=== PATIENT | female | born 1980 | race Caucasian/White ===

== ENCOUNTER 2017-01-12 10:26 | Emergency (ER) | payer OTHER ==
[~2017-01-12] VITALS: Ht 167.6 cm; Wt 43.7 kg
[~2017-01-12 10:26] MED LIST: IBUPROFEN600 MG PO; IBUPROFEN800 MG PO; KEFLEX500 MG PO; LISINOPRIL-HCT1 EACH PO; NORCO 5-325 TA1 EACH PO; PERCOCET 10-321 EACH PO; POTASSIUM CHLO10 MEQ PO; PROVENTIL HFA6.7 GM INH; SUDAFED 12 HOU120 MG PO; TRAMADOL HCL50 MG PO; TRIACTIN50 MG/5 ML PO; TYLENOL325 MG PO
== END 2017-01-12 12:10 | disposition short-term general hospital (02) ==
LOC: ED 10:26
PROC: 0T9B70Z Drainage of Bladder with Drainage Device, Via Natural or Artificial Opening (ICD-10-PCS; principal; 2017-01-12)
DX: J36 Peritonsillar abscess (principal); I10 Essential (primary) hypertension; F17.200 Nicotine dependence, unspecified, uncomplicated; Z88.5 Allergy status to narcotic agent; Z88.8 Allergy status to other drugs, medicaments and biological substances
CPT/HCPCS: 51702; 80053; 81001; 85025; 85610; 85730; 96361; 96374; 96375; 99285; J0295; J1100; J1170; J2405; J7030

== ENCOUNTER 2017-12-20 15:22 | Emergency (ER) | payer OTHER ==
[~2017-12-20] VITALS: Ht 167.6 cm; Wt 43.7 kg
[~2017-12-20 15:22] MED LIST changes: +CARVEDILOL25 MG PO; +NIFEDIPINE ER60 MG PO
[2017-12-20] MEDS ORDERED: FUROSEMIDE40 MG PO (15:52)
[2017-12-20] MEDS ORDERED: LISINOPRIL20 MG PO (15:52)
[2017-12-20] MEDS ORDERED: XANAX0.5 MG PO (15:53)
== END 2017-12-20 16:05 | disposition home or self-care (01) ==
LOC: ED 15:22
DX: F41.9 Anxiety disorder, unspecified (principal); E11.9 Type 2 diabetes mellitus without complications; I10 Essential (primary) hypertension; Z87.891 Personal history of nicotine dependence; Z88.0 Allergy status to penicillin; Z88.8 Allergy status to other drugs, medicaments and biological substances; Z79.899 Other long term (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
CPT/HCPCS: 99283

== ENCOUNTER 2017-12-23 07:05 | Emergency (ER) | payer OTHER ==
[~2017-12-23] VITALS: Ht 167.6 cm; Wt 43.7 kg
[~2017-12-23 07:05] MED LIST changes: +FUROSEMIDE40 MG PO; +LISINOPRIL20 MG PO; +XANAX0.5 MG PO
== END 2017-12-23 08:20 | disposition left against medical advice (07) ==
LOC: ED 07:05
DX: R10.31 Right lower quadrant pain (principal); R11.0 Nausea; F41.9 Anxiety disorder, unspecified; I10 Essential (primary) hypertension; Z88.5 Allergy status to narcotic agent; Z88.8 Allergy status to other drugs, medicaments and biological substances; Z79.899 Other long term (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
CPT/HCPCS: 99283

== ENCOUNTER 2018-07-08 00:11 | Emergency (ER) | payer MEDICARE, OTHER ==
--- OUTSIDE RECORDS SUMMARY | 2018-07-08 00:14 | XMS ---
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 Care History Medical/Surgical 12/27/2017 [facility] Care Recommendation: This patient has had 5 or more Emergency Department visits in the last 12 months.\T\nbsp; Patient requires education on the scope and purpose of the ED as an acute care provider not a Primary Care Provider and should not be utilized for chronic conditions.\T\nbsp; If patient returns to ED please contact Community Health Worker Mi at [phone]. These are guidelines and the provider should exercise clinical judgment when providing care. E.D. VISIT COUNT (12 MO.) 6 ABIMAEL Perez TOTAL 6 NOTE: Visits indicate total known visits. ED/UCC VISIT TRACKING (12 MO.) 07/08/2018 00:11 ABIMAEL [place] TYPE: Emergency COMPLAINT: - SOB 04/01/2018 02:47 ABIM[place]EL [place] TYPE: Emergency COMPLAINT: - SOB DIAGNOSES: - Acute respiratory failure, unspecified whether with hypoxia or hypercapnia - Other 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 operator (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 - Shortness of breath - Essential (primary) hypertension - Other stimulant abuse, uncomplicated - Allergy status to narcotic agent status - Chronic pulmonary edema - Personal history of nicotine dependence - Allergy status to other drugs, medicaments and biological substances status - Patient's noncompliance with other medical treatment and regimen 03/22/2018 15:47 ABIMAEL [place] TYPE: Emergency COMPLAINT: - SOB DIAGNOSES: - Dependence on renal dialysis - Shortness of breath - Hypertensive chronic kidney disease with stage 5 chronic kidney disease or end stage renal disease - Allergy status to other drugs, medicaments and biological substances status - End stage renal disease - Chronic pulmonary edema - Other senior care (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 - Acute respiratory failure, unspecified whether with hypoxia or hypercapnia - Allergy status to narcotic agent status - Nicotine dependence, unspecified, uncomplicated 12/23/2017 07:05 ABIM[facility]EL [place] TYPE: Emergency COMPLAINT: - ABD PAIN DIAGNOSES: - Allergy status to narcotic agent status - Other 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 operator (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 - Allergy status to other drugs, medicaments and biological substances status - Essential (primary) hypertension - Right lower quadrant pain - Anxiety disorder, unspecified - Nausea 12/20/2017 15:22 ABIM[facility]EL [place] TYPE: Emergency COMPLAINT: - HIGH BLOOD PRESSURE DIAGNOSES: - Allergy status to penicillin - Anxiety disorder, unspecified - Allergy status to other drugs, medicaments and biological substances status - Essential (primary) hypertension - Personal history of nicotine dependence - Type 2 diabetes mellitus without complications - Other senior care (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 07/26/2017 07:25 ABIM[facility]EL [place] TYPE: Emergency COMPLAINT: - SOB DIAGNOSES: - Other specified diseases and conditions complicating , childbirth and the puerperium - Personal history of nicotine dependence - Dyspnea, unspecified - Diseases of the respiratory system complicating , second trimester - Allergy status to narcotic agent status - 21 weeks gestation of - Disorder of kidney and ureter, unspecified - Unspecified maternal hypertension, second trimester - Chronic pulmonary edema - Other 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 operator (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 - Essential (primary) hypertension - Gestational diabetes mellitus in , unspecified control INPATIENT VISIT TRACKING (12 MO.) 04/01/2018 08:38 Jorje [place] TYPE: Medical Surgical COMPLAINT: - CHF, RESPIRATORY FAILURE DIAGNOSES: 0. Acute respiratory failure with hypoxia 1. Acute respiratory failure with hypoxia 2. End stage renal disease 3. Acute pulmonary edema 4. Acute diastolic (congestive) heart failure 4. Hypertensive emergency 5. Hypertensive emergency 5. Hypertensive chronic kidney disease with stage 5 chronic kidney disease or end stage renal disease 6. Anemia in chronic kidney disease 6. Hypertensive heart and chronic kidney disease with heart failure and with stage 5 chronic kidney disease, or end stage renal disease 7. Hypokalemia 7. Anemia in chronic kidney disease 8. Hypokalemia 8. Hypomagnesemia 9. Hypomagnesemia 9. Other disorders of phosphorus metabolism 10. Other stimulant abuse, uncomplicated 10. Other disorders of phosphorus metabolism 11. Personal history of nicotine dependence 11. Other stimulant abuse, uncomplicated 12. Personal history of nicotine dependence 12. Dependence on renal dialysis 13. Patient's noncompliance with renal dialysis 13. Dependence on renal dialysis 14. Patient's noncompliance with renal dialysis [facility]2018 [facility] TYPE: General Medicine DIAGNOSES: - Other stimulant abuse, uncomplicated - Acute respiratory failure with hypercapnia - Acute respiratory failure with hypoxia - Acute respiratory failure - Restlessness and agitation 01/04/2018 12:48 [facility] Lluvia [place] TYPE: Surgery DIAGNOSES: - Dependence on renal dialysis - End stage renal disease - Chronic kidney disease, unspecified - Acute kidney failure with tubular necrosis 09/01/2017 21:17 [place] TYPE: Inpatient COMPLAINT: - U DIAGNOSES: 0. Acute kidney failure, unspecified 1. Hypertensive heart and chronic kidney disease with heart failure and with stage 5 chronic kidney disease, or end stage renal disease 1. Acute respiratory failure with hypoxia 1. Acute respiratory failure with hypoxia 2. End stage renal disease 2. End stage renal disease 3. Pneumonia, unspecified organism 3. Pneumonia, unspecified organism 4. Hypertensive heart and chronic kidney disease with heart failure and with stage 5 chronic kidney disease, or end stage renal disease 4. Hypertensive heart and chronic kidney disease with heart failure and with stage 5 chronic kidney disease, or end stage renal disease 5. Hypo-osmolality and hyponatremia 6. Hypo-osmolality and hyponatremia 6. Hypo-osmolality and hyponatremia 6. Heart failure, unspecified 7. Dependence on renal dialysis 7. Heart failure, unspecified 7. Heart failure, unspecified 8. Dependence on renal dialysis 8. Dependence on renal dialysis 8. Anemia in chronic kidney disease 9. Iron deficiency anemia, unspecified 9. Anemia in chronic kidney disease 9. Anemia in chronic kidney disease 10. Iron deficiency anemia, unspecified 10. Iron deficiency anemia, unspecified 10. Thrombocytopenia, unspecified 11. Thrombocytopenia, unspecified 11. Thrombocytopenia, unspecified - Decreased white blood cell count, unspecified - Decreased white blood cell count, unspecified [facility]2017 [facility] DIAGNOSES: - Anemia in chronic kidney disease - Acute respiratory failure with hypoxia - Acute pulmonary edema - Hemolytic-uremic syndrome - Other autoimmune hemolytic anemias - Hypertension - CHF - Acute kidney failure, unspecified 07/16/2017 20:43 [facility] TYPE: Observation DIAGNOSES: - Hemalytic-uremic syndrome - Thrombotic microangiopathy - Encounter for elective termination of - Cardiomyopathy, unspecified - Acute kidney failure, unspecified - Disorder of kidney and ureter, unspecified - Encounter for supervision of normal , unspecified, unspecified trimester - Essential (primary) hypertension - Other stimulant abuse, uncomplicated - Anemia, unspecified [email or web address]
--- NOTE | 2018-07-08 06:39 | OR ---
[facility] [address], [place] [address] Signed DATE OF OPERATION: 07/08/2018 SURGEON: Corin Andrea MD PREOPERATIVE DIAGNOSES: 1. Lack of peripheral IV access. 2. Renal failure. 3. Respiratory distress (BiPAP). POSTOPERATIVE DIAGNOSES: 1. Lack of peripheral IV access. 2. Renal failure. 3. Respiratory distress (BiPAP). PROCEDURE PERFORMED: Placement of right femoral triple-lumen catheter. ESTIMATED BLOOD LOSS: None. INDICATIONS: Dangelo is a 38-year-old female I have known for many years. Although I have not seen her in the last year or so. She is now obviously in renal failure and she has an AV fistula in her right upper extremity. She comes into the emergency room with what looks like pulmonary edema and some respiratory distress. She is currently on BiPAP. They have been unable to place a peripheral IV, so I was asked to come emergently to the emergency department for placement of a central venous catheter. I met with Dangelo and I explained to her the current situation. We decided to go ahead and use a femoral line to avoid a chance of a pneumothorax. In addition, we do not want to place catheters on the same side as AV fistula and create a stenosis of the vein that she would have to deal with in the future. Dangelo is aware of central line. She understands there is risk including, but not limited to bleeding, infection, scarring, change in contour of the skin, and need for additional line placements in treatment. She expressed understanding and wished to proceed. PROCEDURE NOTE: Dangelo was kept supine semi-recumbent in her ER bed. With the help of several nurses, then we were able to prep and drape her right groin in the usual sterile fashion. Local anesthetic was injected in the right groin. I could easily feel the femoral pulse. We went just medial to that and on the 1st pass of the needle, we were Electronically Signed By: CORIN ANDREA MD 07/08/18 0639 PATIENT NAME: DANGELO POWER OPERATIVE REPORT DATE OF : 78 REPORT #: [id number] PHYSICIAN: CORIN ANDREA MD PCP: JOHNNY ANNA PA-C REPORT IS CONFIDENTIAL AND NOT TO BE RELEASED WITHOUT AUTHORIZATION [address] [address] Signed able to access her femoral vein. Her venous nonpulsatile blood was very dark. The wire was able to pass without any resistance whatsoever. The triple-lumen catheter was inserted up to the hub without any resistance whatsoever. All three ports were able to draw and flush quite readily. The catheter was held in place at the level of skin with interrupted silk sutures. After this, dry dressing was applied per nursing staff. Dangelo tolerated the procedure quite well. MD KACEY Roman/ISABELLAL /[id number] cc: CAROLA Martinez MD Copies: ANNAJOHNNY GOMEZ PA-C, ANDREW L MD ~ Electronically Signed By: CORIN ANDREA MD 07/08/18 0639 PATIENT NAME: DANGELO POWER Neela OPERATIVE REPORT DATE OF : 78 REPORT #: [id number] PHYSICIAN: CORIN ANDREA MD PCP: JOHNNY ANNA PA-C REPORT IS CONFIDENTIAL AND NOT TO BE RELEASED WITHOUT AUTHORIZATION
== END 2018-07-08 04:20 | disposition short-term general hospital (02) ==
LOC: ED 00:11
DX: J81.1 Chronic pulmonary edema (principal); I12.9 Hypertensive chronic kidney disease with stage 1 through stage 4 chronic kidney disease, or unspecified chronic kidney disease; N18.9 Chronic kidney disease, unspecified; Z87.891 Personal history of nicotine dependence; Z88.5 Allergy status to narcotic agent; Z88.8 Allergy status to other drugs, medicaments and biological substances; Z79.899 Other long term (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
CPT/HCPCS: 36600; 71045; 80053; 81001; 82803; 85025; 87088; 94660; 96374; 96375; 96376; 99285-25; J1170; J2060; J2405

== ENCOUNTER 2018-07-18 03:26 | Emergency (ER) | payer MEDICARE, OTHER ==
[~2018-07-18] VITALS: Ht 167.6 cm; Wt 43.7 kg
--- OUTSIDE RECORDS SUMMARY | 2018-07-18 03:28 | XMS ---
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 - Has Care Guidelines - [facility] - 2 Visits in 30 Days CARE PROVIDERS LLUVIA STEPHENS Nurse Practitioner: Family Current PHONE: Unknown JOHNNY ANNA Physician Computer Science Teacher 12/27/2017-Current PHONE: [phone] JOHNNY ANNA Primary Care Current PHONE: [phone] Faye has no Care Guidelines for this patient. Care History Medical/Surgical 07/08/2018 [facility] - IF PATIENT IS SEEN IN THE ED AND IS WILLING TO ACCEPT HELP/SERVICES FOR TREATMENT. PLEASE CONTACT [facility] AND REQUEST TO SPEAK TO ULISSES PLATT [phone]. - [facility] CAN HELP PATIENT WITH TREATMENT RESOURCES AND PLACEMENT. 12/27/2017 [facility] Care Recommendation: This patient has had 5 or more Emergency Department visits in the last 12 months.\T\nbsp; Patient requires education on the scope and purpose of the ED as an acute care provider not a Primary Care Provider and should not be utilized for chronic conditions.\T\nbsp; If patient returns to ED please contact Community Health WorkerMi at [phone]. These are guidelines and the provider should exercise clinical judgment when providing care. E.D. VISIT COUNT (12 MO.) 7 [facility]. TOTAL 7 NOTE: Visits indicate total known visits. ED/UCC VISIT TRACKING (12 MO.) 07/18/2018 03:26 [facility] [place] TYPE: Emergency COMPLAINT: - SOB 07/08/2018 00:11 ABIM[facility]EL [place] TYPE: Emergency COMPLAINT: - SOB DIAGNOSES: - Hypertensive chronic kidney disease with stage 1 through stage 4 chronic kidney disease, or unspecified chronic kidney disease - Other metal spinner (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 - Shortness of breath - Allergy status to narcotic agent status - Personal history of nicotine dependence - Type 2 diabetes mellitus with diabetic chronic kidney disease - Chronic pulmonary edema - Chronic kidney disease, unspecified - Allergy status to other drugs, medicaments and biological substances status 04/01/2018 02:47 ABIMAEL Bennett [place] TYPE: Emergency COMPLAINT: - SOB DIAGNOSES: - Acute respiratory failure, unspecified whether with hypoxia or hypercapnia - Other metal spinner (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 - Shortness of breath - Essential (primary) hypertension - Other stimulant abuse, uncomplicated - Allergy status to narcotic agent status - Chronic pulmonary edema - Personal history of nicotine dependence - Allergy status to other drugs, medicaments and biological substances status - Patient's noncompliance with other medical treatment and regimen 03/22/2018 15:47 ABIMAEL Sand[facility] Tio [place] TYPE: Emergency COMPLAINT: - SOB DIAGNOSES: - Dependence on renal dialysis - Shortness of breath - Hypertensive chronic kidney disease with stage 5 chronic kidney disease or end stage renal disease - Allergy status to other drugs, medicaments and biological substances status - End stage renal disease - Chronic pulmonary edema - Other metal spinner (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 - Acute respiratory failure, unspecified whether with hypoxia or hypercapnia - Allergy status to narcotic agent status - Nicotine dependence, unspecified, uncomplicated 12/23/2017 07:05 ABIMAEL [place] TYPE: Emergency COMPLAINT: - ABD PAIN DIAGNOSES: - Allergy status to narcotic agent status - Other metal spinner (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 - Allergy status to [...] 2 diabetes mellitus without complications - Other metal spinner (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 07/26/2017 07:25 ABIMAEL Bennett [...] trimester - Chronic pulmonary edema - Other metal spinner (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 - Essential (primary) hypertension - Gestational diabetes mellitus in , unspecified control INPATIENT VISIT TRACKING (12 MO.) 07/08/2018 05:44 [facility] Laura [place] TYPE: General Medicine DIAGNOSES: - pulmonary edema 04/01/2018 08:38 Jorje Álvarez [place] TYPE: Medical Surgical COMPLAINT: - CHF, RESPIRATORY [...] Patient's noncompliance with renal dialysis 03/22/2018 19:39 [facility] TYPE: General Medicine DIAGNOSES: - Other stimulant abuse, uncomplicated - Acute respiratory failure with hypercapnia - Acute respiratory failure with hypoxia - Acute respiratory failure - Restlessness and agitation 01/04/2018 12:[facility] DIAGNOSES: - Dependence on [...] white blood cell count, unspecified [facility]2017 [facility] DIAGNOSES: - Anemia in chronic kidney disease - Acute respiratory failure with hypoxia - Acute pulmonary edema - Hemolytic-uremic syndrome - Other autoimmune hemolytic anemias - Hypertension - CHF - Acute kidney failure, unspecified [email or web address]
== END 2018-07-18 09:40 | disposition short-term general hospital (02) ==
LOC: ED 03:26
PROC: 0T9B70Z Drainage of Bladder with Drainage Device, Via Natural or Artificial Opening (ICD-10-PCS; principal; 2018-07-18)
DX: J96.90 Respiratory failure, unspecified, unspecified whether with hypoxia or hypercapnia (principal); I13.11 Hypertensive heart and chronic kidney disease without heart failure, with stage 5 chronic kidney disease, or end stage renal disease; N18.6 End stage renal disease; Z99.2 Dependence on renal dialysis; Z88.5 Allergy status to narcotic agent; Z88.8 Allergy status to other drugs, medicaments and biological substances; Z79.899 Other long term (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
CPT/HCPCS: 36600; 51702; 71045; 80053; 82803; 85025; 94660; 99285-25; J1170; J1200; J1940; J2405

== ENCOUNTER 2019-04-04 19:06 | Emergency (ER) | payer MEDICARE, OTHER ==
[~2019-04-04] VITALS: Ht 167.6 cm; Wt 41.0 kg
--- OUTSIDE RECORDS SUMMARY | ~2019-04-04 | XMS | Clinical Summary ---
Demographics + + + | Address | [address] | | | [place] [address] | + + + | Home Phone | | + + + | Preferred Language | Unknown | + + + | Marital Status | | + + + | Worship Affiliation | [phone] | + + + | Race | Unknown | + + + | Ethnic Group | Unknown | + + + Author + + + | Author | [facility] (Historical as of | | | 01-21-19) | + + + | Organization | [facility] (Historical as of | | | 01-21-19) [...] [place] | | | | | [address] | | + + + + + Care Team Providers + +------+ + | Care Documentation Supervisor Name | Role | Phone | [...] | + + + +---------+------+------+-------+ | B [id number] | Take 1 tablet by | | [...] | | | Activ | | (PROCRIT) [id number] | into the skin 3 | | [...] +------+-------+ + | MEDICARE | MEDICA | [id number] | | | [address] | | | RE | | | | [place] [address] | | | IP-OP | | | | | + +--------+ +------+-------+ + | MEDICAID | MEDICA | [id number] | | | [address] | | | ID | | | | [place] | | | [place] | | | | [address] | + +--------+ +------+-------+ + + +--------+ [...] | | al/Fam | | 1980 | [phone] | [place] | | | [place] | | | [phone] | [phone] | + +--------+ +--------+ + +
--- OUTSIDE RECORDS SUMMARY | ~2019-04-04 | XMS | Clinical Summary ---
Demographics + + + | Address | [address] | | | [place] [address] | + + + | Home Phone | | + + + | Preferred Language | Unknown | + + + | Marital Status | Single | + + + | Mormonism Affiliation | Unknown | + + + [...] [place], | | | | | [place] [address] | | + + + + + Care Team Providers + +------+ + | Care Belt Maker Name | Role | Phone | + +------+ + | No Pcp Per Patient | PCP | Unavailable | + +------+ + Source Comments KATTY is fully live on both [facility] Ambulatory and [facility] InPatient.[facility] Allergies Not on File Medications Not [...] | | | + +--------+ +--------+-------+---------+--------+ | WRINGER AND SETTER MEDICAID | WRINGER AND SETTER | [id number] | 06/07/19 | | | [...] | 1980 | [phone] | [place] [address] | | | [place] | | | 3 (Home) | | + +--------+ +--------+ + +"
--- OUTSIDE RECORDS SUMMARY | ~2019-04-04 | XMS | Encounter Summary ---
Demographics + + + | Address | [address] | | | [place] [address] | + + + | Home Phone | | + + + | Preferred Language | Unknown | + + + | Marital Status | Single | + + + | Rastafari Affiliation | Unknown | + + + | Race | White | + + + | Ethnic Group | Not or | + + + Author + + + | Author | [facility] | + + + | Organization | [facility] | + + + | [...] [place], | | | | | [place] [address] | | + + + + + Care Team Providers + +------+ + | Care Operator Vacuum Name | Role | Phone | + +------+ + | No Pcp Per Patient | PCP | Unavailable | + +------+ + Encounter Details +--------+ + + + + | Date | Type | Department | Care Team | Description | +--------+ + + + + | 07/05/ | Document-Sc | UNKNOWN DEPARTMENT | Unknown . | | | 2012 | anned | [address] | | | | | | [address] | | | | | | [place], [place] | | | | | | [address] | | | +--------+ + + + [...]
--- OUTSIDE RECORDS SUMMARY | ~2019-04-04 | XMS | Clinical Summary ---
Demographics + + + | Address | [address] | | | [place] [address] | + + + | Home Phone [...] | Author | [facility] (Historical as of | | | 01-21-19) | + + + | Organization | [facility] (Historical as of | | | 01-21-19) [...] [place] | | | | | [address] | | + + + + + Care Team Providers + +------+ + | Care Sole Blacker Name | Role | Phone | + [...] | + + + +---------+------+------+-------+ | B [id number]-[id number] | Take 1 tablet by | | [...] | | | Activ | | (PROCRIT) [id number] | into the skin 3 | | [...] +------+-------+ + | MEDICARE | MEDICA | [id number] | | | [address] | | | RE | | | | [place] [address] | | | IP-OP | | | | | + +--------+ +------+-------+ + | MEDICAID | MEDICA | [id number] | | | [address] | | | ID | | | | [place] | | | [place] | | | | [address] | + +--------+ +------+-------+ + + +--------+ [...] | | al/Fam | | 1980 | [phone] | [place] | | | [place] | | | [phone] | [phone] | + +--------+ +--------+ + +
--- OUTSIDE RECORDS SUMMARY | ~2019-04-04 | XMS | Clinical Summary ---
Demographics + + + | Address | [address] | | | [place] [address] | + + + | Home Phone [...] + | Author | [facility] | | | and Laloana | + + + | Organization | [facility] | | | and [...] [place] | | | | | [address] | | + + + + + Care Team Providers + +------+ + | Care Rooming House Keeper Name | Role | Phone | [...] | | | | | | | ([facility]) | | | | | | | [...] | + + + +---------+------+------+-------+ | B Iozuyhl-D-Qvtse | Take 1 Tab by mouth. | [...] + + + + | Overview: 07/17/2017 [facility] | + + + + + | [...] + | Sister | | | Acute [place] | + +------+ + + | Sister [...] +--------+ +---------+--------+ | MEDICARE | MEDICA | [id number] | 02/06/20 | [phone] | | Medica | | | RE | | 18-Pre | 5 | | re | | | PART A | | sent | | | | | | AND B | | | | | | + +--------+ +--------+ +---------+--------+ | MODA HEALTH PLAN | MODA | [id number] | | [phone] | | Medica | | MEDICAID HMO | HEALTH | | 018-Pr | 1 | | id | | | MDCD | | esent | | | | | | [place] | | | | | | + +--------+ +--------+ +---------+--------+ | [place] | MEDICA | [id number] | | [phone] | | Medica | | | ID [...] | 1979 | [phone] | [place] [address] | | | carley | | | 8 (Home) | | + +--------+ +--------+ + + | Aurea Perez | Person | Self | [birth year] | [address] | | | al/Fam | | 1979 | [phone] | [place] [address] | | | carley | | | 8 (Home) | | + +--------+ +--------+ + + Advance Directives Patient has advance care planning documents, and code status on file. For more information, please contact:[facility] [place] [address] + + + + + | Code [...]
--- OUTSIDE RECORDS SUMMARY | ~2019-04-04 | XMS | Clinical Summary ---
Demographics + + + | Address | [address] | | | [place] [address] | + + + | Home Phone [...] + | Author | [facility] | | | and Laloana | + + + | Organization | [facility] | | | and [...] [place] | | | | | [address] | | + + + + + Care Team Providers + +------+ + | Care Recording Studio Set Up Worker Name | Role | Phone | [...] | | | | | | | ([facility]) | | | | | | [...] | + + + +---------+------+------+-------+ | B Paeuveg-W-Fvqan | Take 1 Tab by mouth. | [...] + | Sister | | | Acute [place] | + +------+ + + | Sister [...] +--------+ +---------+--------+ | MEDICARE | MEDICA | [id number] | 02/06/20 | [phone] | | Medica | | | RE | | 18-Pre | 5 | | re | | | PART A | | sent | | | | | | AND B | | | | | | + +--------+ +--------+ +---------+--------+ | MODA HEALTH PLAN | MODA | [id number] | | [phone] | | Medica | | MEDICAID HMO | HEALTH | | 018-Pr | 1 | | id | | | MDCD | | esent | | | | | | [place] | | | | | | + +--------+ +--------+ +---------+--------+ | MEDICAID [place] | MEDICA | [id number] | | [phone] | | Medica | | | ID [...] | 1979 | [phone] | [place] [address] | | | carley | | | 8 (Home) | | + +--------+ +--------+ + + | Aurea Perez | Person | Self | [birth year] | | [address] | | | al/Fam | | 1979 | [phone] | [place] [address] | | | carley | | | 8 (Home) | | + +--------+ +--------+ + + Advance Directives Patient has advance care planning documents, and code status on file. For more information, please contact:[facility] [place] [address] + + + + + | Code [...]
--- OUTSIDE RECORDS SUMMARY | ~2019-04-04 | XMS | Clinical Summary ---
Demographics + + + | Address | [address] | | | [place] [address] | + + + | Home Phone | | + + + | Preferred Language | Unknown | + + + | Marital Status | Single | + + + | Catholic Affiliation | Unknown | + + + [...] [place], | | | | | [place] [address] | | + + + + + Care Team Providers + +------+ + | Care Bobbin Winder Name | Role | Phone | + +------+ + | No Pcp Per Patient | PCP | Unavailable | + +------+ + Source Comments KATTY is fully live on both [facility] Ambulatory and [facility] InPatient.[facility] Allergies Not on File Medications [...] | | | + +--------+ +--------+-------+---------+--------+ | DENTAL MANAGER MEDICAID | DENTAL MANAGER | xxxxxxxx | 06/07/19 | | [...] | 1980 | [phone] | [place] [address] | | | carley | | | 3 (Home) | | + +--------+ +--------+ + +"
--- OUTSIDE RECORDS SUMMARY | ~2019-04-04 | XMS | Encounter Summary ---
Demographics + + + | Address | [address] | | | [place] [address] | + + + | Home Phone | | + + + | Preferred Language | Unknown | + + + | Marital Status | Single | + + + | Spiritism Affiliation | Unknown | + + + | Race | White | + + + | Ethnic Group | Not or | + + + Author + + + | Author | [facility] | + + + | Organization | [facility] | + + + | Address | [...] [place], | | | | | [place] [address] | | + + + + + Care Team Providers + +------+ + | Care Casing In Line Feeder Name | Role | Phone | + [...] [address] | | | | | | [place], [place] | | | | | | [address] | | | +--------+ + + + [...]
--- OUTSIDE RECORDS SUMMARY | 2019-04-04 19:08 | XMS ---
PreManage Notification: DANGELO POWER Security Radiographer Events 1 event(s) in the past 18 months Most recent security events: Not Specified at [facility] 12/23/2017 07:05 Details: AMA CRITERIA MET - Group Notification - [facility] - Has Care Guidelines CARE PROVIDERS LLUVIA STEPHENS Nurse Practitioner: Family Current PHONE: Unknown JOHNNY ANNA Physician Sports Complex Attendant 12/27/2017-Current PHONE: [phone] JOHNNY ANNA Primary Care Current PHONE: [phone] Faye has no Care Guidelines for this patient. Care History Medical/Surgical 07/08/2018 [facility] - IF PATIENT IS SEEN IN THE ED AND IS WILLING TO ACCEPT HELP/SERVICES FOR TREATMENT. PLEASE CONTACT [facility] AND REQUEST TO SPEAK TO ULISSES PLATT [phone]. - [facility] CAN HELP PATIENT WITH TREATMENT RESOURCES AND PLACEMENT. 12/27/2017 [facility] Care Recommendation: This patient has had 5 or more Emergency Department visits in the last 12 months.\T\nbsp; Patient requires education on the scope and purpose of the ED as an acute care provider not a Primary Care Provider and should not be utilized for chronic conditions.\T\nbsp; If patient returns to ED please contact Community Health WorkerMi at [phone]. These are guidelines and the provider should exercise clinical judgment when providing care. E.D. VISIT COUNT (12 MO.) 3 [facility]. TOTAL 3 NOTE: Visits indicate total known visits. ED/UCC VISIT TRACKING (12 MO.) 04/04/2019 19:06 ABIM[place]EL [place] TYPE: Emergency COMPLAINT: - SKIN PROBLEM 07/18/2018 03:26 ABIM[facility]EL [place] TYPE: Emergency COMPLAINT: - SOB DIAGNOSES: - End stage renal disease - Shortness of breath - Allergy status to oth drug/meds/biol subst status - Respiratory failure, unsp, unsp w hypoxia or hypercapnia - Allergy status to narcotic agent status - Other senior care (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 - Dependence on renal dialysis - 1 Hyp hrt and chr kdny dis w/o hrt fail, w stg 5 chr kdny/ESR 07/08/2018 00:11 ABIMAEL Bennett [place] TYPE: Emergency COMPLAINT: - SOB DIAGNOSES: - 1 Hypertensive chronic kidney disease w stg 1-4/unsp chr kdny - 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 - Shortness of breath - Allergy status to narcotic agent status - Personal history of nicotine dependence - 1 Type 2 diabetes mellitus w diabetic chronic kidney disease - Chronic pulmonary edema - Chronic kidney disease, unspecified - Allergy status to oth drug/meds/biol subst status INPATIENT VISIT TRACKING (12 MO.) 07/18/2018 11:02 [facility] Laura [place] TYPE: Surgical Services DIAGNOSES: - Hypertension secondary to other renal disorders - Other specified disorders of kidney and ureter - Anemia in chronic kidney disease - Acute respiratory failure with hypoxia - 1 Chronic kidney disease, stage 4 (severe) - End stage renal disease - Acute pulmonary edema - Hypertensive urgency - Acute combined systolic and diastolic (congestive) hrt fail - Chronic pulmonary edema 07/08/2018 05:44 [facility] [place] TYPE: General Medicine DIAGNOSES: - pulmonary edema [email or web address]
[2019-04-04] MEDS ORDERED: BACTRIM DS TAB1 EACH PO (19:53)
== END 2019-04-04 20:33 | disposition home or self-care (01) ==
LOC: ED 19:06
DX: L03.811 Cellulitis of head [any part, except face] (principal); I10 Essential (primary) hypertension; Z88.5 Allergy status to narcotic agent; Z88.8 Allergy status to other drugs, medicaments and biological substances; Z79.899 Other long term (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
CPT/HCPCS: 99282

== ENCOUNTER 2019-04-05 02:07 | Emergency (ER) | payer MEDICARE, OTHER ==
[~2019-04-05] VITALS: Ht 167.6 cm; Wt 40.8 kg
--- OUTSIDE RECORDS SUMMARY | ~2019-04-05 | XMS | Clinical Summary ---
Demographics + + + | Address | [address] | | | [place] [address] | + + + | Home Phone | | + + + | Preferred Language | Unknown | + + + | Marital Status | Single | + + + | Faith Affiliation | Unknown | + + + | Race | White | + + + | Ethnic Group | Not or | + + + Author + + + | Author | [facility] | + + + | Organization | [facility] | + + + | Address | Unknown | + + + | Phone | Unavailable | + + + Support + + + + + | Name | Relationship | Address | Phone | + + + + + | aRdha Flower | ECON | Unknown | | + + + + + | Ney Kebede | ECON | [address] | | | | | [place], | | | | | [place] [address] | | + + + + + Care Team Providers + +------+ + | Care Quality Management Coordinator Name | Role | Phone | + +------+ + | No Pcp Per Patient | PCP | Unavailable | + +------+ + Source Comments [facility] Allergies Not on File Medications Not on file Active Problems Not on file Social History + +-------+ +--------+------+ | Tobacco Use | Types | Packs/Day | Years | Date | | | | | Used | | + +-------+ +--------+------+ | Never Assessed | | | | | + +-------+ +--------+------+ + + + | Sex Assigned at [...] recent travel history available. | + + Last Filed Vital Signs Not on file Plan of Treatment + + + + + | Health Maintenance | Due Date | Last Done | Comments | + + + + + | Influenza (Flu) | | | | | vaccination (#1) | 9 | | | + + + + + | Pneumococcal | Aged Out | | No longer eligible | | vaccination | | | based on patient's | | | | | age to complete this | | | | | topic | + + + + + Results Not on filefrom Last 3 Months Insurance + +--------+ +--------+-------+---------+--------+ | Payer | Benefi | Subscriber | Effect | Phone | Address | Type | | | t Plan | ID | anabelle | | | | | | / | | Dates | | | | | | Group | | | | | | + +--------+ +--------+-------+---------+--------+ | HOSPICE RN MEDICAID | HOSPICE RN | xxxxxxxx | 06/07/19 | | | Medica | | | [place] | | 14-Pre | | | id | | | [place] | | sent | | | | + +--------+ +--------+-------+---------+--------+ + +--------+ +--------+ + + | Guarantor Name | Accoun | Relation to | Date | Phone | Billing Address | | | t Type | Patient | of | | | | | | | | | | + +--------+ +--------+ + + | Aurea Perez | Person | Self | [birth year] | [address] | | Jaylene | al/Kuldeep | | 1980 | [phone] | [place] [address] | | | carley | | | 3 (Home) | | + +--------+ +--------+ + +"
--- OUTSIDE RECORDS SUMMARY | ~2019-04-05 | XMS | Clinical Summary ---
Demographics + + + | Address | [address] | | | [place] [address] | + + + | Home Phone | | + + + | Preferred Language | Unknown | + + + | Marital Status | Single | + + + | Cheondoism Affiliation | Unknown | + + + [...] [place], | | | | | [place] [address] | | + + + + + Care Team Providers + +------+ + | Care Cdl Truck Driver Name | Role | Phone | + +------+ + | No Pcp Per Patient | PCP | Unavailable | + +------+ + Source Comments KATTY is fully live on both [facility] Ambulatory and [facility] InPatient.[facility] Allergies Not on File Medications Not [...] | | | + +--------+ +--------+-------+---------+--------+ | TEACHER PUBLIC HEALTH MEDICAID | TEACHER PUBLIC HEALTH | xxxxxxxx | 06/07/19 | | | [...] | 1980 | [phone] | [place] [address] | | | carley | | | 3 (Home) | | + +--------+ +--------+ + +"
--- OUTSIDE RECORDS SUMMARY | ~2019-04-05 | XMS | Encounter Summary ---
Demographics + + + | Address | [address] | | | [place] [address] | + + + | Home Phone | | + + + | Preferred Language | Unknown | + + + | Marital Status | Single | + + + | Taoism Affiliation | Unknown | + + + | Race | White | + + + | Ethnic Group | Not or | + + + Author + + + | Author | [facility] | + + + | Organization | [facility] | + + + | Address | [...] [place], | | | | | [place] [address] | | + + + + + Care Team Providers + +------+ + | Care Organizational Effectiveness Director Name | Role | Phone | + +------+ + | No Pcp Per Patient | PCP | Unavailable | + +------+ + Encounter Details +--------+ + + + + | Date | Type | Department | Care Team | Description | +--------+ + + + + | 07/05/ | Document-Sc | UNKNOWN DEPARTMENT | Unknown . | | | 2012 | anned | [address] | | | | | | [address] | | | | | | [place], [place] | | | | | | [address] | | | +--------+ + + + [...]
--- OUTSIDE RECORDS SUMMARY | ~2019-04-05 | XMS | Clinical Summary ---
Demographics + + + | Address | [address] | | | [place] [address] | + + + | Home Phone [...] + | Author | [facility] | | | and Laloana | + + + | Organization | [facility] | | | and Laloana [...] [place] | | | | | [address] | | + + + + + Care Team Providers + +------+ + | Care Comptometrist Name | Role | Phone | + [...] | | | | | | | ([facility]) | | | | | | | [...] | + + + +---------+------+------+-------+ | B Fqjmhoc-T-Vkgad | Take 1 Tab by mouth. | [...] + + + + | Overview: 07/17/2017 [facility] [place] | + + + + + | [...] +--------+ +---------+--------+ | MEDICARE | MEDICA | [id number] | 02/06/20 | [phone] | | Medica | | | RE | | 18-Pre | 5 | | re | | | PART A | | sent | | | | | | AND B | | | | | | + +--------+ +--------+ +---------+--------+ | MODA HEALTH PLAN | MODA | [id number] | | [phone] | | Medica | | MEDICAID HMO | HEALTH | | 018-Pr | 1 | | id | | | MDCD | | esent | | | | | | [place] | | | | | | + +--------+ +--------+ +---------+--------+ | MEDICAID [place] | MEDICA | [id number] | | [phone] | | Medica | | | ID [...] | 1979 | [phone] | [place] [address] | | | carley | | | 8 (Home) | | + +--------+ +--------+ + + | Aurea Perez | Person | Self | [birth year] | [address] | | | al/Fam | | 1979 | [phone] | [place] [address] | | | carley | | | 8 (Home) | | + +--------+ +--------+ + + Advance Directives Patient has advance care planning documents, and code status on file. For more information, please contact:[facility] [place] [address] + + + + + | Code [...]
--- OUTSIDE RECORDS SUMMARY | ~2019-04-05 | XMS | Clinical Summary ---
Demographics + + + | Address | [address] | | | [place] [address] | + + + | Home Phone | | + + + | Preferred Language | Unknown | + + + | Marital Status | | + + + | Hoahaoism Affiliation | 1038 | + + + | Race | Unknown | + + + | Ethnic Group | Unknown | + + + Author + + + | Author | [facility] (Historical as of | | | 01-21-19) | + + + | Organization | [facility] (Historical as of | | | 01-21-19) [...] [place] | | | | | [address] | | + + + + + Care Team Providers + +------+ + | Care Linen Checker Name | Role | Phone | [...] | + + + +---------+------+------+-------+ | B Kttuorg-G-Plgij | Take 1 tablet by | | [...] | | | Activ | | (PROCRIT) [id number] | into the skin 3 | | [...] +------+-------+ + | MEDICARE | MEDICA | [id number] | | | [address] | | | RE | | | | [place] [address] | | | IP-OP | | | | | + +--------+ +------+-------+ + | MEDICAID | MEDICA | [id number] | | | [address] | | | ID | | | | [place] | | | [place] | | | | [address] | + +--------+ +------+-------+ + + +--------+ [...] | | al/Fam | | 1980 | [phone] | [place] | | | [place] | | | [phone] | [phone] | + +--------+ +--------+ + +
--- OUTSIDE RECORDS SUMMARY | ~2019-04-05 | XMS | Clinical Summary ---
Demographics + + + | Address | [address] | | | [place] [address] | + + + | Home Phone [...] + | Author | [facility] (Historical as of | | | 01-21-19) | + + + | Organization | [facility] (Historical as of | | | 01-21-19) [...] [place] | | | | | [address] | | + + + + + Care Team Providers + +------+ + | Care Universal Winding Machine Operator Name | Role | Phone [...] | + + + +---------+------+------+-------+ | B Xesxmou-O-Bvock | Take 1 tablet by | | [...] | | | Activ | | (PROCRIT) [id number] | into the skin 3 | | [...] +------+-------+ + | MEDICARE | MEDICA | [id number] | | | [address] | | | RE | | | | [place] [address] | | | IP-OP | | | | | + +--------+ +------+-------+ + | MEDICAID | MEDICA | [id number] | | | [address] | | | ID | | | | [place] | | | [place] | | | | [address] | + +--------+ +------+-------+ + + +--------+ [...] | | al/Fam | | 1980 | [phone] | [place] | | | [place] | | | [phone] | [phone] | + +--------+ +--------+ + +
--- OUTSIDE RECORDS SUMMARY | ~2019-04-05 | XMS | Encounter Summary ---
Demographics + + + | Address | [address] | | | [place] [address] | + + + | Home Phone | | + + + | Preferred Language | Unknown | + + + | Marital Status | Single | + + + | Orthodox Affiliation | Unknown | + + + | Race | White | + + + | Ethnic Group | Not or | + + + Author + + + | Author | [facility] | + + + | Organization | [facility] | + + + | [...] [place], | | | | | [place] [address] | | + + + + + Care Team Providers + +------+ + | Care Grape Cutter Name | Role | Phone | + [...] [address] | | | | | | [place], [place] | | | | | | [address] | | | +--------+ + + + [...]
--- OUTSIDE RECORDS SUMMARY | ~2019-04-05 | XMS | Clinical Summary ---
Demographics + + + | Address | [address] | | | [place] [address] | + + + | Home Phone | | + + + | Preferred Language | Unknown | + + + | Marital Status | | + + + | Orthodoxy Affiliation | 1038 | + + + | Race | Unknown | + + + | Ethnic Group | Unknown | + + + Author + + + | Author | [facility] | | | and Laloana | + + + | Organization | [facility] [...] [place] | | | | | [address] | | + + + + + Care Team Providers + +------+ + | Care Costing Analyst Name | Role | Phone | [...] | | ([facility]) | | | | | [...] | + + + +---------+------+------+-------+ | B Zozcnqu-L-Kmtxr | Take 1 Tab by mouth. | [...] + + + + | Overview: 07/17/2017 [facility] | + + + [...] + | Sister | | | Acute DC | + +------+ + + | Sister [...] +--------+ +---------+--------+ | MEDICARE | MEDICA | [id number] | 02/06/20 | [phone] | | Medica | | | RE | | 18-Pre | 5 | | re | | | PART A | | sent | | | | | | AND B | | | | | | + +--------+ +--------+ +---------+--------+ | MODA HEALTH PLAN | MODA | [id number] | | [phone] | | Medica | | MEDICAID HMO | HEALTH | | 018-Pr | 1 | | id | | | MDCD | | esent | | | | | | [place] | | | | | | + +--------+ +--------+ +---------+--------+ | [place]ICAID [place] | MEDICA | [id number] | | [phone] | | Medica | | | ID [...] | 1979 | [phone] | [place] [address] | | | carley | | | 8 (Home) | | + +--------+ +--------+ + + | Aurea Perez | Person | Self | [birth year] | [address] | | | al/Fam | | 1979 | [phone] | [place] [address] | | | carley | | | 8 (Home) | | + +--------+ +--------+ + + Advance Directives Patient has advance care planning documents, and code status on file. For more information, please contact:[facility] [place] [address] + + + + + | Code [...]
[~2019-04-05 02:07] MED LIST changes: +BACTRIM DS TAB1 EACH PO
--- OUTSIDE RECORDS SUMMARY | 2019-04-05 02:10 | XMS ---
PreManage Notification: DANGELO POWER Security Category Development Manager Events 1 event(s) in the past 18 months Most recent security events: Not Specified at [facility] 12/23/2017 07:05 Details: AMA CRITERIA MET - Group Notification - [facility] - Has Care Guidelines - [facility] - 2 Visits in 30 Days CARE PROVIDERS LLUVIA STEPHENS Nurse Practitioner: Family Current PHONE: Unknown JOHNNY ANNA Physician Coin Teller 12/27/2017-Current PHONE: [phone] JOHNNY ANNA Primary Care Current PHONE: [phone] Faye has no Care Guidelines for this patient. Care History Medical/Surgical 07/08/2018 [facility] - IF PATIENT IS SEEN IN THE ED AND IS WILLING TO ACCEPT HELP/SERVICES FOR TREATMENT. PLEASE CONTACT [facility] AND REQUEST TO SPEAK TO ULISSES PLATT [phone]. - [facility] CAN HELP PATIENT [...] ED please contact Community Health WorkerMi at [phone]. These are guidelines and the provider should exercise clinical judgment when providing care. E.D. VISIT COUNT (12 MO.) 4 [facility]. TOTAL 4 NOTE: Visits indicate total known visits. 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, w stg 5 chr kdny/ESR 07/08/2018 00:11 [facility] TYPE: Emergency COMPLAINT: - SOB DIAGNOSES: - 1 Hypertensive chronic kidney disease w stg 1-4/unsp chr kdny - Other intermediate (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 - Shortness of breath - Allergy status to narcotic agent status - Personal history of nicotine dependence - 1 Type 2 diabetes mellitus w diabetic chronic kidney disease - Chronic pulmonary edema - Chronic kidney disease, unspecified - Allergy status to oth drug/meds/biol subst status INPATIENT VISIT TRACKING (12 MO.) 07/18/2018 11:02 [facility] Laura STERN TYPE: Surgical Services DIAGNOSES: - [...] fail - Chronic pulmonary edema 07/08/2018 05:44 [facility] Laura STERN TYPE: General Medicine DIAGNOSES: - pulmonary edema [email or web address]
== END 2019-04-05 02:35 | disposition home or self-care (01) ==
LOC: ED 02:07
DX: L03.811 Cellulitis of head [any part, except face] (principal); Z76.5 Malingerer [conscious simulation]; I10 Essential (primary) hypertension; F17.200 Nicotine dependence, unspecified, uncomplicated; Z88.5 Allergy status to narcotic agent; Z88.8 Allergy status to other drugs, medicaments and biological substances; Z79.899 Other long term (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
CPT/HCPCS: 99283

== ENCOUNTER 2019-04-06 11:16 | Emergency (ER) | payer MEDICARE, OTHER ==
[~2019-04-06] VITALS: Ht 167.6 cm; Wt 41.0 kg
--- OUTSIDE RECORDS SUMMARY | ~2019-04-06 | XMS | Clinical Summary ---
Demographics + + + | Address | [address] | | | [place] [address] | + + + | Home Phone | | + + + | Preferred Language | Unknown | + + + | Marital Status | | + + + | Pentecostalism Affiliation | 1038 | + + + | Race | Unknown | + + + | Ethnic Group | Unknown | + + + Author + + + | Author | [facility] (Historical as of | | | 01-21-19) | + + + | Organization | [facility] (Historical as of | | | 01-21-19) | + + + | Address | Unknown | + + + | Phone | Unavailable | + + + Support + + + + + | Name | Relationship | Address | Phone | + + + + + | Erik Brian | ECON | Unknown | | + + + + + | Lorna Jones | ECON | [place] | | | | | [address] | | + + + + + Care Team Providers + +------+ + | Care Quality Audit Representative Name | Role | Phone | + +------+ + | Sia Zheng PA-C | PP | | + +------+ + Allergies + + + + + + | Active Allergy | Reactions | Severity | Noted | Comments | | | | | Date | | + + + + + + | Codeine | Anaphylaxis | High | 01/13/20 | Dilaudid is ok. No | | | | | 17 | reaction there. | | | | | | Percocet is ok | + + + + + + | Sumatriptan | Anaphylaxis | High | 01/13/20 | | | | | | 17 | | + + + + + + | Morphine | Headache | Low | 07/09/19 | | | | | | 19 | | + + + + + + Current Medications + + + +---------+------+------+-------+ | Prescription | Sig. | Disp. | Refills | Star | End | Statu | | | | | | t | Date | s | | | | | | Date | | | + + + +---------+------+------+-------+ | famotidine | Take 1 tablet by | 28 | 0 | 08/1 | | Activ | | (PEPCID) 20 MG | mouth 2 (two) times | tablet | | 0/20 | | e | | tablet | daily for 14 days. | | | 17 | | | + + + +---------+------+------+-------+ | | Swish and spit 10 | 240 mL | 0 | 08/1 | | Activ | | diphenhydramine-hydr | mLs every 6 (six) | | | 0/20 | | e | | ocortisone-nystatin | hours as needed for | | | 17 | | | | (DUKES MOUTHWASH) | Sore Throat. | | | | | | | suspension | | | | | | | + + + +---------+------+------+-------+ | methylPREDNISolone | Medrol 4 mg po QID | 10 | 0 | 08/1 | | Activ | | (MEDROL) 4 MG | today and then | tablet | | 0/20 | | e | | tablet | Medrol 4 mg PO TID | | | 17 | | | | | for one day and then | | | | | | | | Medrol 4 mg PO BID | | | | | | | | for one day and then | | | | | | | | Medrol 4 mg PO q | | | | | | | | day for 1 day and | | | | | | | | then stop | | | | | | + + + +---------+------+------+-------+ | B Yovcurk-K-Xzaia | Take 1 tablet by | | | / | | Activ | | Acid (RENAL-KIT) | mouth daily. | | | 20 | | e | | 0.8 MG TABS | | | | 18 | | | + + + +---------+------+------+-------+ | carvedilol (COREG) | Take 6.25 mg by | | | | | Activ | | 6.25 MG tablet | mouth 2 (two) times | | | | | e | | | daily. | | | | | | + + + +---------+------+------+-------+ | cholecalciferol | Take 1,000 Units by | | | 05/1 | | Activ | | (VITAMIN D-3) 1000 | mouth daily. | | | 20 | | e | | units tablet | | | | 18 | | | + + + +---------+------+------+-------+ | diphenhydrAMINE | Take 25 mg by mouth | | | | | Activ | | (BENADRYL) 25 MG | nightly as needed. | | | | | e | | tablet | | | | | | | + + + +---------+------+------+-------+ | eculizumab | Inject 1,200 mg into | | | 07/2 | | Activ | | (SOLIRIS) 300 | the vein every 30 | | | 2/20 | | e | | MG/30ML injection | (thirty) days. | | | 18 | | | + + + +---------+------+------+-------+ | epoetin ant | Inject 8,000 Units | | | | | Activ | | (PROCRIT) [id number] | into the skin 3 | | | | | e | | UNIT/ML injection | (three) times a | | | | | | | | week. | | | | | | + + + +---------+------+------+-------+ | furosemide (LASIX) | Take 80 mg by mouth | | | 04/ | | Activ | | 40 MG tablet | daily. | | | 08/24 | | e | | | | | | 18 | | | + + + +---------+------+------+-------+ | lisinopril | Take 20 mg by mouth | | | 08 | | Activ | | (ZESTRIL) 20 MG | daily. | | | 0 | | e | | tablet | | | | 18 | | | + + + +---------+------+------+-------+ | sucroferric | Take 500 mg by mouth | | | 10/05 | | Activ | | oxyhydroxide | 3 (three) times | | | 06/26 | | e | | (VELPHORO) 500 MG | daily with meals. | | | 18 | | | | chewable tablet | | | | | | | + + + +---------+------+------+-------+ | acetaminophen | Take 325-650 mg by | | | 07/08 | | Activ | | (TYLENOL) 325 MG | mouth every 6 (six) | | | 5/20 | | e | | tablet | hours as needed. | | | 18 | | | + + + +---------+------+------+-------+ | NIFEdipine | Take 60 mg by mouth | | | 02/1 | | Activ | | (PROCARDIA XL) 60 MG | daily. | | | 6/20 | | e | | 24 hr tablet | | | | 18 | | | + + + +---------+------+------+-------+ | oxyCODONE | Take 5-10 mg by | | | 02/1 | | Activ | | (ROXICODONE) 5 MG | mouth every 6 (six) | | | 5/20 | | e | | immediate release | hours as needed. | | | 18 | | | | tablet | | | | | | | + + + +---------+------+------+-------+ Active Problems + + + | Problem | Noted Date | + + + | Hypertensive urgency | 07/08/2018 | + + + | Acute pulmonary edema (HCC) | 03/27/2018 | + + + | Agitation | 03/24/2018 | + + + | Metabolic acidosis | 03/22/2018 | + + + | Acute respiratory failure with hypoxia (HCC) | 03/22/2018 | + + + | Methamphetamine use | 01/12/2017 | + + + | Peritonsillar abscess | 01/12/2017 | + + + | Smoker | 01/12/2017 | + + + | ESRD (end stage renal disease) (HCC) | | + + + | 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 renal disease (HCC) | | + + + Immunizations + + + + | Name | Dates Previously Given | Next Due | + + + + | DTaP | 05/14/1999 | | + + + + | HIB (PRP-D) | 01/31/2001, 05/14/1999 | | + + + + | Hep B (Recombinant), | 07/10/2017 | | | Adjuvanted | | | + + + + | Hepatitis A Adult | 01/31/2001 | | + + + + | IPV | 05/14/1999 | | + + + + | Influenza, Trivalent | 07/15/2017, 07/15/2017 | | | W/Preservative | | | + + + + | Meningococcal | 07/10/2017 | | | C/y-hib Prp | | | | (MENHIBRIX) | | | + + + + | Meningococcal | 07/10/2017 | | | Conjugate (MCV4P) | | | | Menactra | | | + + + + | Meningococcal Group | 07/15/2017 | | | B | | | + + + + | Pneumococcal | 07/10/2017 | | | Conjugate 13-valent | | | + + + + | Pneumococcal | 01/13/2017 | | | Polysaccharide | | | | 23-valent | | | + + + + Family History + + +------+ + | Medical History | Relation | Name | Comments | + + +------+ + | Kidney disease | Neg Hx | | | + + +------+ + Social History + +-------+ +--------+------+ | Tobacco Use | Types | Packs/Day | Years | Date | | | | | Used | | + +-------+ +--------+------+ | Current Every Day | | | 10 | | | Smoker | | | | | + +-------+ +--------+------+ + +---+---+---+ | Smokeless Tobacco: | | | | | Never Used | | | | + +---+---+---+ + + | Tobacco Cessation: Ready to Quit: No; Counseling Given: Yes | | Comments: unable to discuss d/t pt condition | + + + + +---------+ + | Alcohol Use | Drinks/We | oz/Week | Comments | | | ek | | | + + +---------+ + | No | | | | + + +---------+ + + + + | Sex Assigned at | Date Recorded | | | | + + + | Not on file | | + + + Last Filed Vital Signs + + + + | Vital Sign | Reading | Time Taken | + + + + | Blood Pressure | 124/72 | 07/10/2018 8:22 AM PST | + + + + | Pulse | 88 | 07/10/2018 8:22 AM PST | + + + + | Temperature | 36.6 C (97.8 F) | 07/10/2018 8:22 AM PST | + + + + | Respiratory Rate | 22 | 07/10/2018 8:22 AM PST | + + + + | Oxygen Saturation | 99% | 07/10/2018 8:22 AM PST | + + + + | Inhaled Oxygen | - | - | | Concentration | | | + + + + | Weight | 45.1 kg (99 lb 6.8 | 07/10/2018 4:16 AM PST | | | oz) | | + + + + | Height | 167.6 cm (5' 6") | 07/08/2018 6:00 AM PST | + + + + | Body Mass Index | 16.05 | 07/10/2018 4:16 AM PST | + + + + Plan of Treatment Not on file Results Not on filefrom Last 3 Months Insurance + +--------+ +------+-------+ + | Payer | Benefi | Subscriber | Type | Phone | Address | | | t Plan | ID | | | | | | / | | | | | | | Group | | | | | + +--------+ +------+-------+ + | MEDICARE | MEDICA | [id number] | | | [address] | | | RE | | | | [place] [address] | | | IP-OP | | | | | + +--------+ +------+-------+ + | MEDICAID | MEDICA | [id number] | | | [address] | | | ID | | | | [place] | | | [place] | | | | [address] | + +--------+ +------+-------+ + + +--------+ +--------+ + + | Guarantor Name | Accoun | Relation to | Date | Phone | Billing Address | | | t Type | Patient | of | | | | | | | | | | + +--------+ +--------+ + + | DANGELO POWER | Person | Self | [birth year] | Home: | [address] | | | al/Fam | | 1980 | [phone] | [place] | | | [place] | | | [phone] | [phone] | + +--------+ +--------+ + +
--- OUTSIDE RECORDS SUMMARY | ~2019-04-06 | XMS | Clinical Summary ---
Demographics + + + | Address | [address] | | | [place] [address] | + + + | Home Phone | | + + + | Preferred Language | Unknown | + + + | Marital Status | | + + + | Yazidi Affiliation | 1038 | + + + | Race | Unknown | + + + | Ethnic Group | Unknown | + + + Author + + + | Author | [facility] (Historical as of | | | 01-21-19) | + + + | Organization | [facility] [employer] (Historical as of | | | 01-21-19) [...] [place] | | | | | [address] | | + + + + + Care Team Providers + +------+ + | Care Industrial Health Engineer Name | Role | Phone | + [...] | + + + +---------+------+------+-------+ | B Rgwnvya-W-Ljedm | Take 1 tablet by | | [...] | | | Activ | | (PROCRIT) [id number] | into the skin 3 | | [...] +------+-------+ + | MEDICARE | MEDICA | [id number] | | | [address] | | | RE | | | | [place] [address] | | | IP-OP | | | | | + +--------+ +------+-------+ + | MEDICAID | MEDICA | [id number] | | | [address] | | | ID | | | | [place] | | | [place] | | | | [address] | + +--------+ +------+-------+ + + +--------+ [...] | | al/Fam | | 1980 | [phone] | [place] | | | [place] | | | [phone] | [phone] | + +--------+ +--------+ + +
--- OUTSIDE RECORDS SUMMARY | ~2019-04-06 | XMS | Clinical Summary ---
Demographics + + + | Address | [address] | | | [place] [address] | + + + | Home Phone | | + + + | Preferred Language | Unknown | + + + | Marital Status | | + + + | Presybeterian Affiliation | 1038 | + + + | Race | Unknown | + + + | Ethnic Group | Unknown | + + + Author + + + | Author | [facility] | | | and [place] | + + + | Organization | [facility] | | | and [place] [...] [place] | | | | | [address] | | + + + + + Care Team Providers + +------+ + | Care Loan Assistant Name | Role | Phone | + +------+ + | Erik Flor MD | PCP | | + +------+ + [...] 2 times daily | tablet | | 20 | | e | | | (with breakfast & | | | 19 | | | | | dinner). | | | | | | + + + +---------+------+------+-------+ | furosemide (LASIX) | Take 1 tablet by | 90 | 4 | 02/1 | | Activ | | 80 mg | mouth Daily. | tablet | | 20 | | e | | tabletIndications: | | | | 19 | | | | CKD (chronic kidney | | | | | | | | disease), stage IV | | | | | | | | ([facility]) | | | | | | | [...] capsule by | 90 | 3 | 02/1 | | Activ | | (CITRANATAL HARMONY) [...] | + + + +---------+------+------+-------+ | B Xkazfbe-K-Rlogk | Take 1 Tab by mouth. | [...] mg tablet | daily. | | | 20 | | e | | | | [...] + + + + | Overview: 07/17/2017 [facility] | + + + + + | 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 renal disease | 07/18/2017 | + + + | Hypertension | 07/18/2017 | + + + + + | Overview: GFR 19 - 09/29/2017 | + + + + [...] |Copper 250. Zinc 75 | + + Immunizations + + + + [...] + | Sister | | | Acute [place] | + +------+ + + | Sister [...] + | Blood Pressure | 153/75 | 11/24/2018 1936 PDT | + + + + | Pulse | 78 | 07/21/201806 PST | + + + + | Temperature | 36.7 C (98 F) | 11/24/2018 1936 PDT | + + + + | [...] +--------+ +---------+--------+ | MEDICARE | MEDICA | [id number] | 02/06/20 | [phone] | | Medica | | | RE | | 18-Pre | 5 | | re | | | PART A | | sent | | | | | | AND B | | | | | | + +--------+ +--------+ +---------+--------+ | [employer]AN | MODA | [id number] | | [phone] | | Medica | | MEDICAID HMO | HEALTH | | 018-Pr | 1 | | id | | | MDCD | | esent | | | | | | [place] | | | | | | + +--------+ +--------+ +---------+--------+ | MEDICAID [place] | MEDICA | [id number] | | [phone] | | Medica | | | [place] | | 019-Pr | 2 | | id | | | PLUS | | esent | | | | + +--------+ +--------+ [...] | | al/Fam | | 1979 | [phone] | [place] [address] | | | carley | | | 8 (Home) | | + +--------+ +--------+ + + | Aurea Perez | Person | Self | [birth year] | | [address] | | | al/Fam | | 1979 | [phone] | [place] [address] | | | carley | | | 8 (Home) | | + +--------+ +--------+ + + Advance Directives Patient has advance care planning documents, and code status on file. For more information, please contact:[facility] [place] [address] + + + + + | Code [...]
--- OUTSIDE RECORDS SUMMARY | ~2019-04-06 | XMS | Clinical Summary ---
Demographics + + + | Address | [address] | | | [place] [address] | + + + | Home Phone | | + + + | Preferred Language | Unknown | + + + | Marital Status | | + + + | Buddhist Affiliation | 1038 | + + + | Race | Unknown | + + + | Ethnic Group | Unknown | + + + Author + + + | Author | [facility] | | | and [place] | + + + | Organization | [facility] [...] [place] | | | | | [address] | | + + + + + Care Team Providers + +------+ + | Care District Loss Prevention Manager Name | Role | Phone | [...] | | | | | | | ([facility]) | | | | | | [...] | + + + +---------+------+------+-------+ | B Lrpeovt-W-Vyrwq | Take 1 Tab by mouth. | [...] + + + + | Overview: 07/17/2017 [facility] | + + + + + [...] +--------+ +---------+--------+ | MEDICARE | MEDICA | [id number] | 02/06/20 | [phone] | | Medica | | | RE | | 18-Pre | 5 | | re | | | PART A | | sent | | | | | | AND B | | | | | | + +--------+ +--------+ +---------+--------+ | [employer] PLAN | MODA | [id number] | | [phone] | | Medica | | MEDICAID HMO | HEALTH | | 018-Pr | 1 | | id | | | MDCD | | esent | | | | | | [place]MO [place] | | | | | | + +--------+ +--------+ +---------+--------+ | MEDICAID [place] | MEDICA | [id number] | | [phone] | | Medica | | | ID [...] | 1979 | [phone] | [place] [address] | | | carley | | | 8 (Home) | | + +--------+ +--------+ + + | Aurea Perez | Person | Self | [birth year] | | [address] | | | al/Fam | | 1979 | [phone] | [place] [address] | | | carley | | | 8 (Home) | | + +--------+ +--------+ + + Advance Directives Patient has advance care planning documents, and code status on file. For more information, please contact:[facility] [place] [address] + + + + + | Code [...]
--- OUTSIDE RECORDS SUMMARY | ~2019-04-06 | XMS | Clinical Summary ---
Demographics + + + | Address | [address] | | | [place] [address] | + + + | Home Phone | | + + + | Preferred Language | Unknown | + + + | Marital Status | Single | + + + | Jew Affiliation | Unknown | + + + [...] [place], | | | | | [place] [address] | | + + + + + Care Team Providers + +------+ + | Care Gum Dipper Name | Role | Phone | + +------+ + | No Pcp Per Patient | PCP | Unavailable | + +------+ + Source Comments KATTY is fully live on both [facility] and [facility] InPatient.[facility] Allergies Not on File Medications Not on [...] | | | + +--------+ +--------+-------+---------+--------+ | SOCIAL SERVICES MANAGER MEDICAID | SOCIAL SERVICES MANAGER | xxxxxxxx | 06/07/19 | | | [...] | 1980 | [phone] | [place] [address] | | | [place] | | | 3 (Home) | | + +--------+ +--------+ + +"
--- OUTSIDE RECORDS SUMMARY | ~2019-04-06 | XMS | Clinical Summary ---
Demographics + + + | Address | [address] | | | [place] [address] | + + + | Home Phone | | + + + | Preferred Language | Unknown | + + + | Marital Status | Single | + + + | Zoroastrian Affiliation | Unknown | + + + [...] [place], | | | | | [place] [address] | | + + + + + Care Team Providers + +------+ + | Care Cheese Grader Name | Role | Phone | + +------+ + | No Pcp Per Patient | PCP | Unavailable | + +------+ + Source Comments KATTY is fully live on both [facility] and [facility] InPatient.[facility] & [facility] Allergies Not on File Medications [...] | | | + +--------+ +--------+-------+---------+--------+ | CHARGING BOARD OPERATOR MEDICAID | CHARGING BOARD OPERATOR | xxxxxxxx | 06/07/19 | | | [...] | 1980 | [phone] | [place] [address] | | | [place] | | | 3 (Home) | | + +--------+ +--------+ + +"
--- OUTSIDE RECORDS SUMMARY | ~2019-04-06 | XMS | Encounter Summary ---
Demographics + + + | Address | [address] | | | [place] [address] | + + + | Home Phone | | + + + | Preferred Language | Unknown | + + + | Marital Status | Single | + + + | Muslim Affiliation | Unknown | + + + | Race | White | + + + | Ethnic Group | Not or | + + + Author + + + | Author | [facility] | + + + | Organization | [facility] | + + + | Address [...] [place], | | | | | [place] [address] | | + + + + + Care Team Providers + +------+ + | Care Fiscal Economist Name | Role | Phone | + [...] [address] | | | | | | [place], [place] | | | | | | [address] | | | +--------+ + + + [...]
--- OUTSIDE RECORDS SUMMARY | ~2019-04-06 | XMS | Encounter Summary ---
Demographics + + + | Address | [address] | | | [place] [address] | + + + | Home Phone | | + + + | Preferred Language | Unknown | + + + | Marital Status | Single | + + + | Druze Affiliation | Unknown | + + + | Race | White | + + + | Ethnic Group | Not or | + + + Author + + + | Author | [facility] | + + + | Organization | [facility] | + + + | Address [...] [place], | | | | | [place] [address] | | + + + + + Care Team Providers + +------+ + | Care Truck Hopper Name | Role | Phone | + +------+ + | No Pcp Per Patient | PCP | Unavailable | + +------+ + Encounter Details +--------+ + + + + | Date | Type | Department | Care Team | Description | +--------+ + + + + | 07/05/ | Document-Sc | UNKNOWN DEPARTMENT | Unknown . | | | 2012 | anned | [address] | | | | | | [address] | | | | | | [place], [place] | | | | | | [address] | | | +--------+ + + + [...]
--- OUTSIDE RECORDS SUMMARY | 2019-04-06 11:18 | XMS ---
PreManage Notification: DANGELO POWER Security Snap Attacher Events 1 event(s) in the past 18 months Most recent security events: Not Specified at [facility] 12/23/2017 07:05 Details: AMA CRITERIA MET - Group Notification - [facility] - Has Care Guidelines - [facility] - 2 Visits in 30 Days CARE PROVIDERS LLUVIA STEPHENS Nurse Practitioner: Family Current PHONE: Unknown JOHNNY ANNA Physician Event Planning Intern 12/27/2017-Current PHONE: [phone] JOHNNY ANNA Primary Care Current PHONE: [phone] Faye has no Care Guidelines for this patient. Care History Medical/Surgical 07/08/2018 [facility] - IF PATIENT IS SEEN IN THE ED AND IS WILLING TO ACCEPT HELP/SERVICES FOR TREATMENT. PLEASE CONTACT [facility] AND REQUEST TO SPEAK TO ULISSES PLATT [phone]. - [facility] CAN HELP PATIENT WITH TREATMENT RESOURCES AND PLACEMENT. 12/27/2017 [facility] Care Recommendation: This patient has had 5 or more Emergency Department visits in the last 12 months.\T\nbsp; Patient requires education on the scope and purpose of the ED as an acute care provider not a Primary Care Provider and should not be utilized for chronic conditions.\T\nbsp; If patient returns to ED please contact [facility] Health Worker[facility] at [phone]. These are guidelines and the provider should exercise clinical judgment when providing care. E.D. VISIT COUNT (12 MO.) 5 [facility]. TOTAL 5 NOTE: Visits indicate total known visits. 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, w stg 5 chr kdny/ESR 07/08/2018 00:11 [facility] [place] TYPE: Emergency COMPLAINT: - SOB DIAGNOSES: - 1 Hypertensive chronic kidney disease w stg 1-4/unsp chr kdny - Other retirement (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 - Shortness of breath - Allergy status to narcotic agent status - Personal history of nicotine dependence - 1 Type 2 diabetes mellitus w diabetic chronic kidney disease - Chronic pulmonary edema - Chronic kidney disease, unspecified - Allergy status to oth drug/meds/biol subst status INPATIENT VISIT TRACKING (12 MO.) 07/18/2018 11:02 [facility] Lluvia STERN TYPE: Surgical Services DIAGNOSES: - Hypertension [...] fail - Chronic pulmonary edema 07/08/2018 05:44 [facility] Sanjay Posey [place] TYPE: General Medicine DIAGNOSES: - pulmonary edema [email or web address]
== END 2019-04-06 13:42 | disposition home or self-care (01) ==
LOC: ED 11:16
PROC: 0H97XZZ Drainage of Abdomen Skin, External Approach (ICD-10-PCS; principal; 2019-04-06)
PROC: 0H94XZZ Drainage of Neck Skin, External Approach (ICD-10-PCS; 2019-04-06)
DX: L02.11 Cutaneous abscess of neck (principal); L02.211 Cutaneous abscess of abdominal wall; I12.9 Hypertensive chronic kidney disease with stage 1 through stage 4 chronic kidney disease, or unspecified chronic kidney disease; N18.9 Chronic kidney disease, unspecified; D64.9 Anemia, unspecified; F17.200 Nicotine dependence, unspecified, uncomplicated; Z88.5 Allergy status to narcotic agent; Z88.8 Allergy status to other drugs, medicaments and biological substances; Z79.899 Other long term (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
CPT/HCPCS: 10061; 80053; 85025; 99283-25; 99406; J2405; J3010

== ENCOUNTER 2019-04-08 13:15 | Emergency (ER) | payer MEDICARE, OTHER ==
[~2019-04-08] VITALS: Ht 167.6 cm; Wt 41.0 kg
--- OUTSIDE RECORDS SUMMARY | ~2019-04-08 | XMS | Encounter Summary ---
Demographics + + + | Address | [address] | | | [place] [address] | + + + | Home Phone | | + + + | Preferred Language | Unknown | + + + | Marital Status | | + + + | Mormonism Affiliation | 1038 | + + + | Race | Unknown | + + + | Ethnic Group | Unknown | + + + Author + + + | Author | [facility] | | | and [place] | + + + | Organization | [facility] | | | and [place] [...] + | Beverly Perez | ECON | [place] | | | | | [address] | | + + + + + Care Team Providers + +------+ + | Care Set Key Driver Name | Role | Phone | + +------+ + | Sia Zheng | PCP | | + +------+ + Encounter Details +--------+ + + + + | Date | Type | Department | Care Team | Description | +--------+ + + + + | 04/07/ | Orders Only | [facility] | Jhoana Barreto | ESRD needing | | 2019 | | NEPHROLOGY [address] | M, DO [address] | dialysis (HCC) | | | | [address] | [place] | (Primary Dx) | | | | [place], [place] | [place], [place] | | | | | [address] | [address] | | | | | [phone] | | | +--------+ + + + + Social History + + [...] + +---------+ + | Alcohol Use | Drinks/We | oz/Week | Comments | | | ek | | | + + +---------+ + | No [...] as of this encounter Plan of Treatment + +--------+ + + | Name | Priori | Associated Diagnoses | Order Schedule | | | ty | | | + +--------+ + + | Hepatitis B Core Ab, Total | Routin | ESRD needing | 1 Occurrences | | | e | dialysis (HCC) | starting 04/07/2019 | | | | | until 04/07/2020 | + +--------+ + + | Hepatitis B Surface Ab | Routin | ESRD needing | 1 Occurrences | | | e | dialysis (HCC) | starting 04/07/2019 | | | | | until 04/07/2020 | + +--------+ + + | Hepatitis C Ab | Routin | ESRD needing | 1 Occurrences | | | e | dialysis (HCC) | starting 04/07/2019 | | | | | until 04/07/2020 | + +--------+ + + | Hepatitis B Surface Ag | Routin | ESRD needing | 1 Occurrences | | | e | dialysis (HCC) | starting 04/07/2019 | | | | | until 04/07/2020 | + +--------+ + + documented as of this encounter Visit Diagnoses + + | Diagnosis | + + | ESRD needing dialysis (HCC) - Primary End stage renal disease | + + documented in this encounter"
--- OUTSIDE RECORDS SUMMARY | ~2019-04-08 | XMS | Encounter Summary ---
Demographics + + + | Address | [address] | | | [place] [address] | + + + | Home Phone | | + + + | Preferred Language | Unknown | + + + | Marital Status | | + + + | Church Affiliation | 1038 | + + + | Race | Unknown | + + + | Ethnic Group | Unknown | + + + Author + + + | Author | [facility] | | | and [place] | + + + | Organization | [facility] | | | and [place] [...] + | Beverly Perez | ECON | [place] | | | | | [address] | | + + + + + Care Team Providers + +------+ + | Care Director Of Special Education Name | Role | Phone | + [...] | | [address] | [place] | (Primary Dx) | | | | [place], [place] | [place], [place] | | | | | [address] | [address] | | | | | [phone] | | | +--------+ + + + [...]
--- OUTSIDE RECORDS SUMMARY | ~2019-04-08 | XMS | Clinical Summary ---
Demographics + + + | Address | [address] | | | [place] [address] | + + + | Home Phone [...] | [facility] | | | and [place] | + + + | Organization | [facility] | | | and [place] [...] [place] | | | | | [address] | | + + + + + Care Team Providers + +------+ + | Care Experimental Aircraft Mechanic Name | Role | Phone | + +------+ + | Sia Zheng | PCP | | + +------+ + Allergies + + + + + + | Active Allergy | Reactions | Severity | Noted | Comments | | | | | Date | | + + + + + + | Codeine | Anaphylaxis | High | 07/26/19 | | | | | | 18 | | + + + + + + | Sumatriptan | Anaphylaxis | High | 07/04/19 | | | | | | 18 | | + + + + + + | Morphine | Other (See | Low | 07/09/19 | Headache | | | Comments), Headache | | 19 | | + + + + + + Medications + + + +---------+------+------+-------+ | Medication | Sig | Dispensed | Refills | Star | End | Statu | | | | | | t | Date | s | | | | | | Date | | | + + + +---------+------+------+-------+ | carvedilol (COREG) | Take 1 tablet by | 60 | 5 | 02/1 | | Activ | | 12.5 mg tablet | mouth 2 times daily | tablet | | /20 | | e | | | (with breakfast & | | | 19 | | | | | dinner). | | | | | | + + + +---------+------+------+-------+ | furosemide (LASIX) | Take 1 tablet by | 90 | 4 | 02/1 | | Activ | | 80 mg | mouth Daily. | tablet | | /20 | | e | | tabletIndications: | | | | 19 | | | | CKD (chronic kidney | | | | | | | | disease), stage IV | | | | | | | | ([facility]) | | | | | | | + + + +---------+------+------+-------+ | lisinopril | Take 1 tablet by | 90 | 3 | 02/1 | | Activ | | (PRINIVIL, ZESTRIL) | mouth Daily. | tablet | | /20 | | e | | 10 mg tablet | | | | 19 | | | + + + +---------+------+------+-------+ | sevelamer | Take 1 tablet by | 120 | 11 | 02/1 | | Activ | | carbonate (RENVELA) | mouth 4 times daily | tablet | | 9/20 | | e | | 800 mg tablet | (before meals and | | | 19 | | | | | nightly). | | | | | | + + + +---------+------+------+-------+ | vitamin | Take 1 capsule by | 90 | 3 | 02/ | | Activ | | (CITRANATAL HARMONY) | mouth Daily. | capsule | | 9/20 | | e | | 27-1-260 mg capsule | | | | 19 | | | + + + +---------+------+------+-------+ | methoxy | Inject 0.6 mLs under | | 0 | 03/1 | | Activ | | polyethylene | the skin every 14 | | | 7/20 | | e | | glycol-epoetin beta | days. | | | 19 | | | | (MIRCERA) 50 mcg/0.3 | | | | | | | | mL injection | | | | | | | + + + +---------+------+------+-------+ | calcitRIOL | Take 1 capsule by | 30 | 0 | 03/1 | | Activ | | (ROCALTROL) 0.5 MCG | mouth Three times a | capsule | | 8/20 | | e | | capsule | week. | | | 19 | | | + + + +---------+------+------+-------+ | azithromycin | Take 2 tablets by | 6 | 0 | 04/1 | | Activ | | (ZITHROMAX) 250 mg | mouth on day 1, and | tablet | | 1/20 | | e | | tablet | 1 tablet by mouth | | | 19 | | | | | every day | | | | | | + + + +---------+------+------+-------+ | ondansetron | Take 1 tablet by | 20 | 3 | 04/1 | | Activ | | (ZOFRAN) 4 mg tablet | mouth every 12 hours | tablet | | 1/20 | | e | | | as needed for | | | 19 | | | | | Nausea. | | | | | | + + + +---------+------+------+-------+ | acetaminophen | Take 325-650 mg by | | 0 | 02/1 | | Activ | | (TYLENOL) 325 mg | mouth every 6 (six) | | | 20 | | e | | tablet | hours as needed. | | | 18 | | | + + + +---------+------+------+-------+ | B Yynmlns-W-Ojemm | Take 1 Tab by mouth. | | 0 | 05/1 | | Activ | | Acid (RENAL-KIT) | | | | 06/26 | | e | | 0.8 MG TABS | | | | 18 | | | + + + +---------+------+------+-------+ | b complex-vitamin | TAKE 1 TABLET BY | | 4 | 06/2 | | Activ | | c-folic acid | MOUTH EVERY DAY (ON | | | 06/26 | | e | | (NEPHRO-KIT) tablet | DIALYSIS DAYS, TAKE | | | 19 | | | | | AFTER DIALYSIS | | | | | | | | TREATMENT) | | | | | | + + + +---------+------+------+-------+ | cholecalciferol | Take 1,000 Units by | | 0 | 05/1 | | Activ | | (CHOLECALCIFEROL) | mouth daily. | | | 1/20 | | e | | 1000 units TABS | | | | 18 | | | + + + +---------+------+------+-------+ | | Swish and spit 10 | | 0 | 08/1 | | Activ | | Diphenhyd-Hydrocort- | mLs every 6 (six) | | | 0/20 | | e | | Nystatin | hours as needed for | | | 17 | | | | (FIRST-DUKES | Sore Throat. | | | | | | | MOUTHWASH) SUSP | | | | | | | + + + +---------+------+------+-------+ | diphenhydrAMINE | Take 25 mg by mouth | | 0 | | | Activ | | (BENADRYL) 25 mg | nightly as needed. | | | | | e | | tablet | | | | | | | + + + +---------+------+------+-------+ | eculizumab | Inject 1,200 mg into | | 0 | 07/2 | | Activ | | (SOLIRIS) 10 mg/mL | the vein every 30 | | | 2/20 | | e | | injection | (thirty) days. | | | 18 | | | + + + +---------+------+------+-------+ | epoetin ant | Inject 8,000 Units | | 0 | | | Activ | | (EPOGEN, PROCRIT) | into the skin 3 | | | | | e | | 10,000 units/mL | (three) times a | | | | | | | injection | week. | | | | | | + + + +---------+------+------+-------+ | famotidine | Take 1 tablet by | | 0 | 08/1 | | Activ | | (PEPCID) 20 mg | mouth 2 (two) times | | | 0/20 | | e | | tablet | daily for 14 days. | | | 17 | | | + + + +---------+------+------+-------+ | NIFEdipine | Take 60 mg by mouth | | 0 | 02/1 | | Activ | | (PROCARDIA XL) 60 mg | daily. | | | 6/20 | | e | | ER tablet | | | | 18 | | | + + + +---------+------+------+-------+ | oxyCODONE | Take 5-10 mg by | | 0 | 02/1 | | Activ | | (ROXICODONE) 5 mg | mouth every 6 (six) | | | 5/20 | | e | | tablet | hours as needed. | | | 18 | | | + + + +---------+------+------+-------+ | sucroferric | Take 500 mg by mouth | | 0 | 05/1 | | Activ | | oxyhydroxide | 3 (three) times | | | 0/20 | | e | | (VELPHORO) 500 mg | daily with meals. | | | 18 | | | | chewable tablet | | | | | | | + + + +---------+------+------+-------+ | zolpidem (AMBIEN) | | | 0 | 06/1 | | Activ | | 5 mg tablet | | | | 4/20 | | e | | | | | | 19 | | | + + + +---------+------+------+-------+ | carvedilol (COREG) | 6.25 mg. Take one | | 0 | 02/1 | | Activ | | 25 mg tablet | tab twice daily | | | 5/20 | | e | | | | | | 18 | | | + + + +---------+------+------+-------+ | carvedilol (COREG) | Take 6.25 mg by | | 0 | | | Activ | | 6.25 mg tablet | mouth 2 (two) times | | | | | e | | | daily. | | | | | | + + + +---------+------+------+-------+ | furosemide (LASIX) | Take 1 Tab by mouth | | 0 | 02/1 | | Activ | | 20 mg tablet | every day. | | | 5/20 | | e | | | | | | 18 | | | + + + +---------+------+------+-------+ | furosemide (LASIX) | Take 80 mg by mouth | | 0 | 04/1 | | Activ | | 40 mg tablet | daily. | | | 3/20 | | e | | | | | | 18 | | | + + + +---------+------+------+-------+ | levalbuterol | | | 0 | 06/1 | | Activ | | (XOPENEX HFA) 45 | | | | 4/20 | | e | | mcg/puff inhaler | | | | 19 | | | + + + +---------+------+------+-------+ | lisinopril | Take 20 mg by mouth | | 0 | 08/2 | | Activ | | (PRINIVIL, ZESTRIL) | daily. | | | 0/20 | | e | | 20 mg tablet | | | | 18 | | | + + + +---------+------+------+-------+ + + +-------+ +------+------+-------+ | Hospital, Clinic, or | Ordered | Route | Frequency | Star | End | Statu | | Other Facility | Dose | | | t | Date | s | | Administered | | | | Date | | | | Medication | | | | | | | + + +-------+ +------+------+-------+ | levalbuterol | 2 puff | IN | RT EVERY 4 HOURS PRN | 09/05 | | Activ | | (XOPENEX HFA) 45 | | | | 2/20 | | e | | mcg/puff inhaler 2 | | | | 19 | | | | puff | | | | | | | + + +-------+ +------+------+-------+ Active Problems + + + | Problem | Noted Date | + + + | Hypertensive urgency | 07/08/2018 | + + + | Hyperphosphatemia | 05/17/2018 | + + + | Acute pulmonary edema | 03/27/2018 | + + + | Agitation | 03/24/2018 | + + + | Metabolic acidosis | 03/22/2018 | + + + | Beta Blockers - Daily Use | 01/04/2018 | + + + | KAITLYNN Inhibitors - Daily Use | 01/04/2018 | + + + | BMI less than | 01/04/2018 | + + + | H/O section | 01/04/2018 | + + + | End stage renal disease | 12/26/2017 | + + + | Sacroiliitis | 11/02/2017 | + + + | CHF with current exacerbation due to renal failure and edema. 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 | | LVF 35-40% | + + + + + | Methamphetamine use | 07/16/2017 | + + + + + | Overview: Overview: | | Last use 07/03. | | [facility]: Utox 07/09/2017 Negative. | + + + + + | Smoker | 01/12/2017 | + + + | Methamphetamine use | 01/12/2017 | + + + Resolved Problems + + + + | Problem | Noted | Resolved | | | Date | Date | + + + + | AUNG (acute kidney injury) | 07/26/19 | | | | 18 | 8 | + + + + | Acute renal insufficiency | 07/16/19 | | | | 18 | 8 | + + + + + + | Overview: Overview: 07/09/17: Renal biopsy thrombotic | | microangiopathy. Global glomerulosclerosis. Interstitial fibrosis | | and tubular atrophy. Sent ADAMTS 13 Activity: 130 (range | | 68-163%)07/10/17: Plasmapheresis and Eculizamab started.07/12/17: | | ACLA IgG negative. ACLA IgA negative. ACLA IgM negative. | | Complement C3 112 mg/dL. Complement C4 21 mg/dL. Total complement | | CH50 > 60Copper 250. Zinc 75 | |Copper 250. Zinc 75 | + + Encounters +--------+ + + + + | Date | Type | Specialty | Care Team | Description | +--------+ + + + + | 04/07/ | Orders Only | Nephrology | Jhoana Barreto | ESRD needing | | 2018 | | | M, DO | dialysis (HCC) | | | | | | (Primary Dx) | +--------+ + + + + from Last 3 Months Immunizations + + + + | Name | Dates Previously Given | Next Due | + + + + | DTAP, 5 DOSE (PED) | 05/14/1999 | | + + + + | HEP A, 2 DOSE | 01/31/2001 | | | (ADULT) | | | + + + + | HEP B IMMUNE | 07/10/2017 | | | GLOBULIN | | | + + + + | HEP B, 2 DOSE (ADOL) | 07/10/2017 | | + + + + | HEPATITIS B VACCINE | 07/10/2017 | | | (RECOMBIVANT), | | | | ADJUVANTED | | | + + + + | HIB (PRP-D) | 01/31/2001, 05/14/1999 | | + + + + | HIBMENCY-TT, 4 DOSE | 07/10/2017 | | | (PED) | | | + + + + | INFLUENZA TRIV | 07/15/2017, 07/15/2017 | | | W/PRES(PED/ADOL/ADUL | | | | T),MULTIDOSE | | | + + + + | INFLUENZA, | 07/15/2017, 03/17/2008 | | | UNSPECIFIED | | | | FORMULATION | | | + + + + | IPV, 4 DOSE | 05/14/1999 | | | (PED/ADULT) | | | + + + + | MENINGOCOCCAL | 07/10/2017 | | | CONJUGATE,MENACTRA | | | | (PED/ADOL/ADULT) | | | + + + + | MENINGOCOCCAL | 07/15/2017 | | | SEROGROUP B | | | | (TRUMENBA) | | | + + + + | PNEUMOCOCCAL | 07/10/2017 | | | CONJUGATE 13-VALENT | | | | (PCV13) | | | + + + + | PNEUMOCOCCAL | 01/13/2017 | | | POLYSACCHARIDE | | | | 23-VALENT (PPSV23) | | | + + + + | TDAP, (ADOL/ADULT) | 04/29/2013 | | + + + + Family History + + +------+ + | Medical History | Relation | Name | Comments | + + +------+ + | No known problems | Brother | | | + + +------+ + | No known problems | Brother | | | + + +------+ + | No known problems | Mother | | | + + +------+ + | Heart attack | Sister | | | + + +------+ + | Heart disease | Sister | | | + + +------+ + | No known problems | Sister | | | + + +------+ + + +------+ + + | Relation | Name | Status | Comments | + +------+ + + | Brother | | Alive | | + +------+ + + | Brother | | Alive | | + +------+ + + | Father | | | Homicide | | | | (Age | | | | | 40's) | | + +------+ + + | Mother | | Alive | | + +------+ + + | Sister | | | Acute [place] | + +------+ + + | Sister | | Alive | | + +------+ + + Social History + + + [...] | + + Last Filed Vital Signs + + + + | Vital Sign | Reading | Time Taken | + + + + | Blood Pressure | 153/75 | 11/24/20181935 PDT | + + + + | Pulse | 78 | 07/21/2018805 PST | + + + + | Temperature | 36.7 C (98 F) | 11/24/20181935 PDT | + + + + | Respiratory Rate | 16 | 07/21/2018805 PST | + + + + | Oxygen Saturation | 98% | 07/21/2018805 PST | + + + + | Inhaled Oxygen | - | - | | Concentration | | | + + + + | Weight | 43.5 kg (95 lb 14.4 | 07/21/20183 PST | | | oz) | | + + + + | Height | 167.6 cm (5' 6") | 07/18/2018 1259 PST | + + + + | Body Mass Index | 15.48 | 07/18/2018 1259 PST | + + + + Plan of Treatment + + + + + | Health Maintenance | Due Date | Last Done | Comments | + + + + + | Cervical Cancer | | | | | Screening (Pap) | 9 | | | + + + + + | Adult Annual | | | | | Wellness Visit | 5 | | | + + + + + | Vaccine: Influenza | | 07/15/2017, 07/15/2017, | | | (#1) | 9 | 03/17/2008 | | + + + + + | Vaccine: | | 07/10/2017, 01/13/2017 | | | Pneumococcal 19-64 | 2 | | | | Highest Risk (3 of 3 | | | | | - PPSV23) | | | | + + + + + | Vaccine: | | 04/29/2013, 05/14/1999 | | | Dtap/Tdap/Td (3 - | 3 | | | | Td) | | | | + + + + + Results Not on filefrom Last 3 Months Insurance + +--------+ +--------+ +---------+--------+ | Payer | Benefi | Subscriber | Effect | Phone | Address | Type | | | t Plan | ID | anabelle | | | | | | / | | Dates | | | | | | Group | | | | | | + +--------+ +--------+ +---------+--------+ | MEDICARE | MEDICA | [id number] | 02/06/20 | [phone] | | Medica | | | RE | | 18-Pre | 5 | | re | | | PART A | | sent | | | | | | AND B | | | | | | + +--------+ +--------+ +---------+--------+ | [employer] PLAN | MODA | [id number] | | [phone] | | Medica | | MEDICAID HMO | HEALTH | | 019-Pr | 1 | | id | | | MDCD | | esent | | | | | | [place]MO [place] | | | | | | + +--------+ +--------+ +---------+--------+ | [employer] HE[employer] PLAN | MODA | [id number] | | [phone] | | Medica | | MEDICAID HMO | HEALTH | | 018-Pr | 1 | | id | | | MDCD | | esent | | | | | | [place]MO [place] | | | | | | + +--------+ +--------+ +---------+--------+ + +--------+ +--------+ + + | Guarantor Name | Accoun | Relation to | Date | Phone | Billing Address | | | t Type | Patient | of | | | | | | | | | | + +--------+ +--------+ + + | Aurea Perez | Person | Self | [birth year] | [address] | | | al/Fam | | 1980 | [phone] | [place] [address] | | | [place]ley | | | 2 (Home) | | + +--------+ +--------+ + + | Aurea Perez | Person | Self | [birth year] | | [address] | | | al/Fam | | 1979 | [phone] | [place] [address] | | | [place]ley | | | 2 (Home) | | + +--------+ +--------+ + + Advance Directives Patient has advance care planning documents, and code status on file. For more information, please contact:[facility] [place] [address] + + + + + | Code Status | Date | Date | Comments | | | Activated | Inactivated | | + + + + + | Full Code | 07/18/2018 | 07/21/2018 | | | | 10:58 | 17:24 | | + + + + + + + + +---+ | | | | | + + + +---+ | Full Code | 01/04/2018 | 01/04/2018 | | | | 20:47 | 23:24 | | + + + +---+ + + + +---+ | | | | | + + + +---+ | Full Code | 01/04/2018 | 01/04/2018 | | | | 20:46 | 20:46 | | + + + +---+ + + + +---+ | | | | | + + + +---+ | Full Code | 09/01/2017 | 09/01/2017 | | | | 18:04 | 20:34 | | + + + +---+ + + + +---+ | | | | | + + + +---+ | Full Code | 07/26/2017 | 07/30/2017 | | | | 13:07 | 18:12 | | + + + +---+
--- OUTSIDE RECORDS SUMMARY | ~2019-04-08 | XMS | Clinical Summary ---
Demographics + + + | Address | [address] | | | [place] [address] | + + + | Home Phone | | + + + | Preferred Language | Unknown | + + + | Marital Status | Single | + + + | Caodaism Affiliation | Unknown | + + + [...] [place], | | | | | [place] [address] | | + + + + + Care Team Providers + +------+ + | Care Pilot Boat Deckhand Name | Role | Phone | + +------+ + | No Pcp Per Patient | PCP | Unavailable | + +------+ + Source Comments KATTY is fully live on both [facility] and [facility] InPatient.[facility] Allergies Not on File Medications Not [...] | | | + +--------+ +--------+-------+---------+--------+ | [employer] MEDICAID | R[place] | xxxxxxxx | 06/07/19 | | | [...] | 1980 | [phone] | [place] [address] | | | [place] | | | 3 (Home) | | + +--------+ +--------+ + +"
--- OUTSIDE RECORDS SUMMARY | ~2019-04-08 | XMS | Encounter Summary ---
Demographics + + + | Address | [address] | | | [place] [address] | + + + | Home Phone | | + + + | Preferred Language | Unknown | + + + | Marital Status | Single | + + + | Anabaptism Affiliation | Unknown | + + + | Race | White | + + + | Ethnic Group | Not or | + + + Author + + + | Author | [facility] | + + + | Organization | [facility] | + + + | Address [...] [place], | | | | | [place] [address] | | + + + + + Care Team Providers + +------+ + | Care Insole Cementer Name | Role | Phone | + +------+ + | No Pcp Per Patient | PCP | Unavailable | + +------+ + Encounter Details +--------+ + + + + | Date | Type | Department | Care Team | Description | +--------+ + + + + | 07/05/ | Document-Sc | UNKNOWN DEPARTMENT | Unknown . | | | 2012 | anned | [address] | | | | | | [address] | | | | | | [place], [place] | | | | | | [address] | | | +--------+ + + + [...]
--- OUTSIDE RECORDS SUMMARY | ~2019-04-08 | XMS | Clinical Summary ---
Demographics + + + | Address | [address] | | | [place] [address] | + + + | Home Phone | | + + + | Preferred Language | Unknown | + + + | Marital Status | | + + + | Restorationism Affiliation | 1038 | + + + | Race | Unknown | + + + | Ethnic Group | Unknown | + + + Author + + + | Author | [facility] (Historical as of | | | 01-21-19) | + + + | Organization | [facility] (Historical as of | | | 01-21-19) [...] [place] | | | | | [address] | | + + + + + Care Team Providers + +------+ + | Care Men'S Swim Coach Name | Role | Phone | [...] | + + + +---------+------+------+-------+ | B Nqjtjkk-W-Ixsbr | Take 1 tablet by | | [...] | | | Activ | | (PROCRIT) [id number] | into the skin 3 | | [...] +------+-------+ + | MEDICARE | MEDICA | [id number] | | | [address] | | | RE | | | | [place] [phone] | | | IP-OP | | | | | + +--------+ +------+-------+ + | MEDICAID | MEDICA | [id number] | | | [address] | | | ID | | | | [place] | | | [place] | | | | [phone] | + +--------+ +------+-------+ + + +--------+ [...] | | al/Fam | | 1980 | [phone] [place] | | | [place] | | | [phone] | [phone] | + +--------+ +--------+ + +
--- OUTSIDE RECORDS SUMMARY | ~2019-04-08 | XMS | Clinical Summary ---
Demographics + + + | Address | [address] | | | [place] [address] | + + + | Home Phone [...] Author | [facility] | | | and [place] | + + + | Organization | [facility] | | | and [place] [...] [place] | | | | | [address] | | + + + + + Care Team Providers + +------+ + | Care Network Pricing Consultant Name | Role | Phone | [...] | | | | | | | ([facility]) | | | | | | | [...] | + + + +---------+------+------+-------+ | B Kcqdjpy-M-Nrryb | Take 1 Tab by mouth. | [...] + + + | Overview: 07/17/2017 [facility] | + + + + + | [...] + | Sister | | | Acute [place] | + +------+ + + | Sister [...] +--------+ +---------+--------+ | MEDICARE | MEDICA | [id number] | 02/06/20 | [phone] | | Medica | | | RE | | 18-Pre | 5 | | re | | | PART A | | sent | | | | | | AND B | | | | | | + +--------+ +--------+ +---------+--------+ | [employer] PLAN | MODA | [id number] | | [phone] | | Medica | | MEDICAID HMO | HEALTH | | 019-Pr | 1 | | id | | | MDCD | | esent | | | | | | HMO [place] | | | | | | + +--------+ +--------+ +---------+--------+ | [employer]AN | MODA | [id number] | | [phone] | | Medica | | MEDICAID HMO [...] | 1980 | [phone] | [place] [address] | | | carley | | | 2 (Home) | | + +--------+ +--------+ + + | Aurea Perez | Person | Self | [birth year] | [address] | | | al/Fam | | 1979 | [phone] | [place] [address] | | | carley | | | 2 (Home) | | + +--------+ +--------+ + + Advance Directives Patient has advance care planning documents, and code status on file. For more information, please contact:[facility] and [facility] [place] [address] + + + + + | Code [...]
--- OUTSIDE RECORDS SUMMARY | ~2019-04-08 | XMS | Clinical Summary ---
Demographics + + + | Address | [address] | | | [place] [address] | + + + | Home Phone | | + + + | Preferred Language | Unknown | + + + | Marital Status | | + + + | Yazdanism Affiliation | 1038 | + + + | Race | Unknown | + + + | Ethnic Group | Unknown | + + + Author + + + | Author | [facility] (Historical as of | | | 01-21-19) | + + + | Organization | [facility] (Historical as of | | | 01-21-19) [...] [place] | | | | | [address] | | + + + + + Care Team Providers + +------+ + | Care Cook Fish And Chips Name | Role | Phone | + [...] | + + + +---------+------+------+-------+ | B Nemjitr-W-Pdyzl | Take 1 tablet by | | [...] | | | Activ | | (PROCRIT) [id number] | into the skin 3 | | [...] +------+-------+ + | MEDICARE | MEDICA | [id number] | | | [address] | | | RE | | | | [place] [address] | | | IP-OP | | | | | + +--------+ +------+-------+ + | MEDICAID | MEDICA | [id number] | | | [address] | | | ID | | | | [place] | | | [place] | | | | [address] | + +--------+ +------+-------+ + + +--------+ [...] | | al/Fam | | 1980 | [phone] | [place] | | | carley | | | [phone] | [phone] | + +--------+ +--------+ + +
--- OUTSIDE RECORDS SUMMARY | ~2019-04-08 | XMS | Encounter Summary ---
Demographics + + + | Address | [address] | | | [place] [address] | + + + | Home Phone | | + + + | Preferred Language | Unknown | + + + | Marital Status | Single | + + + | Episcopalian Affiliation | Unknown | + + + | Race | White | + + + | Ethnic Group | Not or | + + + Author + + + | Author | [facility] | + + + | Organization | [facility] | + + + | [...] [place], | | | | | [place] [address] | | + + + + + Care Team Providers + +------+ + | Care Communications Station Manager Name | Role | Phone [...] | | | 2012 | anned | [address] | | | | | | [address] | | | | | | [place], [place] | | | | | | [address] | | | +--------+ + + + [...]
--- OUTSIDE RECORDS SUMMARY | ~2019-04-08 | XMS | Clinical Summary ---
Demographics + + + | Address | [address] | | | [place] [address] | + + + | Home Phone | | + + + | Preferred Language | Unknown | + + + | Marital Status | Single | + + + | Moravian Affiliation | Unknown | + + + [...] [place], | | | | | [place] [address] | | + + + + + Care Team Providers + +------+ + | Care Steeplechase Jockey Name | Role | Phone | + +------+ + | No Pcp Per Patient | PCP | Unavailable | + +------+ + Source Comments KATTY is fully live on both [facility] and [facility] Allergies Not on File Medications [...] | | | + +--------+ +--------+-------+---------+--------+ | OPERATIONS TRAINER MEDICAID | OPERATIONS TRAINER | xxxxxxxx | 06/07/19 | | | [...] | 1980 | [phone] | [place] [address] | | | [place] | | | 3 (Home) | | + +--------+ +--------+ + +"
--- OUTSIDE RECORDS SUMMARY | 2019-04-08 13:18 | XMS ---
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 Care History Medical/Surgical 04/06/2019 [facility] - [facility] HAS TRIED TO CONTACT PATIENT- DOES NOT RETURN CALLS. - PATIENT HAS NOT BEEN SEEN BY PCP JOHNNY ANNA SINCE 2009. PATIENT HAS [facility]IL[facility]. - PATIENT DOES HAVE MEDICARE/MEDICAID ALL PRESCRIPTIONS ARE COVERED WITH A PRESCRIPTIONS. - OVER THE COUNTER MEDICATIONS ARE NOT COVERED. - PLEASE CONTACT RAYMOND PAL- [phone] IF PATIENT IS SEEN DURING THE DAY IN THE ER- [facility] IS TRYING TO CONTACT PATIENT. 07/08/2018 [facility] - IF PATIENT IS SEEN IN THE ED AND IS WILLING TO ACCEPT HELP/SERVICES FOR TREATMENT. PLEASE CONTACT [facility] AND REQUEST TO SPEAK TO ULISSES PLATT [phone]. - [facility] CAN HELP PATIENT WITH TREATMENT RESOURCES AND PLACEMENT. 12/27/2017 [facility] Care Recommendation: This patient has had 5 or more Emergency Department visits in the last 12 months.\T\nbsp; Patient requires education on the scope and purpose of the ED as an acute care provider not a Primary Care Provider and should not be utilized for chronic conditions.\T\nbsp; If patient returns to ED please contact Community Health WorkerMi at [phone]. These are guidelines and the provider should exercise clinical judgment when providing care. E.D. VISIT COUNT (12 MO.) 6 [facility]. TOTAL 6 NOTE: Visits indicate total known visits. ED/UCC VISIT TRACKING (12 MO.) 04/08/2019 13:15 [facility] [place] TYPE: Emergency COMPLAINT: - HEADACHE 04/06/2019 11:16 [facility] [place] TYPE: Emergency COMPLAINT: - HEAD WOUND 04/05/2019 02:07 [facility] [place] TYPE: Emergency COMPLAINT: - SKIN PROBLEM/PAIN DIAGNOSES: - Cellulitis of head [any part, except face] - Allergy status to oth drug/meds/biol subst status - Other intermission coordinator (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 - Essential (primary) hypertension - Malingerer [conscious simulation] - Nicotine dependence, unspecified, uncomplicated - Allergy status to narcotic agent status 04/04/2019 19:06 [facility] [place] TYPE: Emergency COMPLAINT: - SKIN PROBLEM DIAGNOSES: - Allergy status to oth drug/meds/biol subst status - Other intermission coordinator (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 - Cellulitis of head [any part, except face] - Allergy status to narcotic agent status - Essential (primary) hypertension 07/18/2018 03:26 [facility] [place] TYPE: Emergency COMPLAINT: - SOB DIAGNOSES: - End stage renal disease - Shortness of breath - Allergy status to oth drug/meds/biol subst status - Respiratory failure, unsp, unsp w hypoxia or hypercapnia - Allergy status to narcotic agent status - Other group home (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 - Dependence on renal dialysis - 1 Hyp hrt and chr kdny dis w/o hrt fail, w stg 5 chr kdny/ESR 07/08/2018 00:11 [facility] [place] TYPE: Emergency COMPLAINT: - SOB DIAGNOSES: - 1 Hypertensive chronic kidney disease w stg 1-4/unsp chr kdny - Other group home (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 - Shortness of breath - Allergy status to narcotic agent status - Personal history of nicotine dependence - 1 Type 2 diabetes mellitus w diabetic chronic kidney disease - Chronic pulmonary edema - Chronic kidney disease, unspecified - Allergy status to oth drug/meds/biol subst status INPATIENT VISIT TRACKING (12 MO.) [facility] DIAGNOSES: - Hypertension [...] fail - Chronic pulmonary edema 07/08/2018 05:44 [facility] TYPE: General Medicine DIAGNOSES: - pulmonary edema [email or web address]
[2019-04-08] MEDS ORDERED: COREG12.5 MG PO (13:32)
== END 2019-04-08 14:47 | disposition home or self-care (01) ==
LOC: ED 13:15
DX: Z48.817 Encounter for surgical aftercare following surgery on the skin and subcutaneous tissue (principal); I10 Essential (primary) hypertension; F17.200 Nicotine dependence, unspecified, uncomplicated; Z88.5 Allergy status to narcotic agent; Z88.8 Allergy status to other drugs, medicaments and biological substances; Z79.899 Other long term (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
CPT/HCPCS: 99282

== ENCOUNTER 2019-05-10 03:22 | Emergency (ER) | payer MEDICARE, OTHER ==
[~2019-05-10] VITALS: Ht 167.6 cm; Wt 41.0 kg
--- OUTSIDE RECORDS SUMMARY | ~2019-05-10 | XMS | Encounter Summary ---
Demographics + + + | Address | [address] | | | [place] [address] | + + + | Home Phone | | + + + | Preferred Language | Unknown | + + + | Marital Status | | + + + | Mosque Affiliation | 1038 | + + + | Race | Unknown | + + + | Ethnic Group | Unknown | + + + Author + + + | Author | [facility] | | | and [place] | + + + | Organization | [facility] | | | and [place] | + + + | Address | Unknown | + + + | Phone | Unavailable | + + + Support + + + + + | Name | Relationship | Address | Phone | + + + + + | Erik Brian | ECON | Unknown | | + + + + + | [place] | ECON | [place] | | | | | [address] | | + + + + + Care Team Providers + +------+ + | Care Demolition Specialist Name | Role | Phone | + +------+ + PCP | Unavailable | + +------+ + Encounter Details +--------+---------+ + + + | Date | Type | Department | Care Team | Description | +--------+---------+ + + + | 07/26/ | E-Visit | [facility] [place] | Mary Lou Jhoana | | | 2018 | | NEPHROLOGY [address] | M, DO [address] | | | | | [address] | [place] | | | | | [place], [place] | [place], [place] | | | | | [address] | [address] | | | | | [phone] | | | +--------+---------+ + + + Social History + + + +--------+ + | Tobacco Use | Types | Packs/Day | Years | Date | | | | | Used | | + + + +--------+ + | Former Smoker | Cigarettes | | | Quit: 06/13/2017 | + + + +--------+ + + +---+---+---+ | Smokeless Tobacco: | | | | | Never Used | | | | + +---+---+---+ + + +---------+ + | Alcohol Use | Drinks/Week | oz/Week | Comments | + + +---------+ + | No | | | | + + +---------+ + + + + | Sex Assigned at | Date Recorded | | | | + + + | Not on file | | + + + + + + + | Job Start Date | Occupation | Industry | + + + + | Not on file | Not on file | Not on file | + + + + + + + + | Travel History | Travel Start | Travel End | + + + + + + | No recent travel history available. | + + documented as of this encounter Progress Notes Jhoana Barreto, - 07/26/2018 12:09 PM PSTNEPHROLOGY We had a family meeting today with Mrs. Perez, the Renal TUBE WINDER, Renal RD and myself. Cindy alejandro Aurea checked out of the [facility] after 36 hours, on 07/23/18. Elena lindo, she violated the rules about staying on campus 28/12. Additionally, she has not taken her meds from her description for the last 48 hours. She did attend dialysis and is commuti ng by bus from [place] where she is staying with her sister. I emphasized to Aurea it's imperative that she finds stable living conditions, take all of her medications as prescribed, and attend all 4 hour HD treatments. I emphasized that the dialysis clinics in [place] and help in the [place] are not accepting new patients. I offered her that it may be easier to attend her treatments from the [address] but she refu ses to move to [place]. I strongly recommended to her to get back on all of her meds. These were refilled today at [facility] where she was previously. Arrangements were made with the Funmilayo fall TUBE WINDER, Ashtyn Wan To obtain her transportation to and from her treatments. Juiceshahram macias appeared lucid, and was A & O 3 during this discussion. Will recheck her in one wee k on HD. [facility]. : [facility] documented in thi s encounter Plan of Treatment Not on filedocumented as of this encounter Visit Diagnoses + + | Diagnosis | + + | End stage renal disease (HCC) - Primary End stage renal disease | + + documented in this encounter Additional Health Concerns + + + + | Infection | Noted Time | Resolved Time | + + + + | Methicillin-resistant Staphylococcus aureus | 03/23/2018 12:00 AM | | | | PDT | | + + + + documented as of this encounter"
--- OUTSIDE RECORDS SUMMARY | ~2019-05-10 | XMS | Encounter Summary ---
Demographics + + + | Address | [address] | | | [place] [address] | + + + | Home Phone | | + + + | Preferred Language | Unknown | + + + | Marital Status | | + + + | Rastafari Affiliation | 1038 | + + + | Race | Unknown | + + + | Ethnic Group | Unknown | + + + Author + + + | Author | [facility] | | | and [place] | + + + | Organization | [facility] | | | and [place] | + + + | Address | Unknown | + + + | Phone | Unavailable | + + + Support + + + + + | Name | Relationship | Address | Phone | + + + + + | Erik Brian | ECON | Unknown | | + + + + + | [place] | ECON | [place] | | | | | [address] | | + + + + + Care Team Providers + +------+ + | Care Roofing Layer Name | Role | Phone | + +------+ + PCP | Unavailable | + +------+ + Encounter Details +--------+ + + + + | Date | Type | Department | Care Team | Description | +--------+ + + + + | 07/30/ | Orders Only | [facility] [place] | Royergeorge Jhoana | AUNG (acute kidney | | 2018 | | NEPHROLOGY [address] | M, DO [address] | injury) ([facility]) | | | | [address] | [address] | (Primary Dx) | | | | [place], [place] | [place], [place] | | | | | [address] | [address] | | | | | [phone] | | | +--------+ + + + + Social History + +-------+ +--------+------+ | Tobacco Use | Types | Packs/Day | Years | Date | | | | | Used | | + +-------+ +--------+------+ | Current Every Day | | 0.5 | | | | Smoker | | | | | + +-------+ +--------+------+ + + +---------+ + | Alcohol Use | Drinks/Week | oz/Week | Comments | + + +---------+ + | Yes | | | occ | + + +---------+ + + + [...] documented as of this encounter Progress Notes Marifer Eldridge RN - 07/30/2017 10:41 AM PSTStanding weekly lab orders sent to [facility] lectronically signed by Marifer Eldridge RN at 07/30/2017 10:46 AM PSTdocumented in this enco unter Plan of Treatment Not on filedocumented as of this encounter Visit Diagnoses + + | Diagnosis | + + | AUNG (acute kidney injury) (HCC) - Primary Acute kidney failure, unspecified | + + documented in this encounter"
--- OUTSIDE RECORDS SUMMARY | ~2019-05-10 | XMS | Encounter Summary ---
Demographics + + + | Address | [address] | | | [place] [address] | + + + | Home Phone | | + + + | Preferred Language | Unknown | + + + | Marital Status | | + + + | Restoration Affiliation | 1038 | + + + | Race | Unknown | + + + | Ethnic Group | Unknown | + + + Author + + + | Author | [facility] | | | and [place] | + + + | Organization | [facility] | | | and [place] | [...] [place] | | | | | [address] | | + + + + + Care Team Providers + +------+ + | Care First Dyer Name | Role | Phone | + +------+ + PCP | Unavailable | + +------+ + Reason for Visit + + + | Reason | Comments | + + + | Appointment | | + + + Encounter Details +--------+ + + + + | Date | Type | Department | Care Team | Description | +--------+ + + + + | 11/15/ | Telephone | [facility] | Jhoana Barreto | Appointment | | 2018 | | NEPHROLOGY [address] | M, DO [address] | | | | | [address] | [place] | | | | | [place], [place] | [place], [place] | | | | | [address] | [address] | | | | | [phone] | | | +--------+ + + + + Social History + +-------+ +--------+ + | Tobacco Use | Types | Packs/Day | Years | Date | | | | | Used | | + +-------+ +--------+ + | Former Smoker | | 0.5 | | Quit: 06/13/2017 | + +-------+ +--------+ + + +---+---+---+ | Smokeless Tobacco: [...] + + documented as of this encounter Plan of Treatment Not on filedocumented as of this encounter Visit Diagnoses Not on filedocumented in this encounter"
--- OUTSIDE RECORDS SUMMARY | ~2019-05-10 | XMS | Encounter Summary ---
Demographics + + + | Address | [address] | | | [place] [address] | + + + | Home Phone | | + + + | Preferred Language | Unknown | + + + | Marital Status | | + + + | Church Affiliation | 1038 | + + + | Race | Unknown | + + + | Ethnic Group | Unknown | + + + Author + + + | Author | [facility] | | | and [place] | + + + | Organization | [facility] | | | and [place] | [...] [place] | | | | | [address] | | + + + + + Care Team Providers + +------+ + | Care Log Grader Name | Role | Phone | + +------+ + PCP | Unavailable | + +------+ + Encounter Details +--------+ + + + + | Date | Type | Department | Care Team | Description | +--------+ + + + + | 11/09/ | Abstract | [facility] | Provider, | | | 2017 | | SURGERY [address] | MD [address] | | | | | [place], [place] | [address] | | | | | [address] | [place] [address] | | | | | [phone] | | | +--------+ + + + [...]
--- OUTSIDE RECORDS SUMMARY | ~2019-05-10 | XMS | Encounter Summary ---
Demographics + + + | Address | [address] | | | [place] [address] | + + + | Home Phone | | + + + | Preferred Language | Unknown | + + + | Marital Status | | + + + | Samaritan Affiliation | 1038 | + + + | Race | Unknown | + + + | Ethnic Group | Unknown | + + + Author + + + | Author | [facility] | | | and [place] | + + + | Organization | [facility] | | | and [place] | [...] [place] | | | | | [address] | | + + + + + Care Team Providers + +------+ + | Care Front Desk Coordinator Name | Role | Phone | + +------+ + PCP | Unavailable | + +------+ + Encounter Details +--------+ + + + + | Date | Type | Department | Care Team | Description | +--------+ + + + + | 08/17/ | Orders Only | [facility] [place] | Angel Barretoias | AUNG (acute kidney | | 2018 | | NEPHROLOGY [address] | M, DO [address] | injury) ([facility]) | | | | [address] | [place] | (Primary Dx) | | | | [place], [place] | [place], [place] | | | | | [address] | [address] | | | | | [phone] | | | +--------+ + + + [...] +---------+ + | No | | | occ | + + [...]
--- OUTSIDE RECORDS SUMMARY | ~2019-05-10 | XMS | Encounter Summary ---
Demographics + + + | Address | [address] | | | [place] [address] | + + + | Home Phone | | + + + | Preferred Language | Unknown | + + + | Marital Status | | + + + | Taoism Affiliation | 1038 | + + + | Race | Unknown | + + + | Ethnic Group | Unknown | + + + Author + + + | Author | [facility] | | | and Laolana | + + + | Organization | [facility] | | | and [...] [place] | | | | | [address] | | + + + + + Care Team Providers + +------+ + | Care Program Control Analyst Name | Role | Phone | + +------+ + PCP | Unavailable | + +------+ + Encounter Details +--------+ + + + + | Date | Type | Department | Care Team | Description | +--------+ + + + + | 08/30/ | Abstract | [facility] [place] | RoyergeorgeJhoana | | | 2017 | | NEPHROLOGY [address] | M, DO [address] | | | | | [address] | [place] | | | | | [place], [place] | [place], [place] | | | | | [address] | [address] | | | | | [phone] | | | +--------+ + + + [...] Not on filedocumented as of this encounter Procedures + +--------+ + + + | Procedure Name | Priori | Date/Time | Associated Diagnosis | Comments | | | ty | | | | + +--------+ + + + | EXTERNAL LAB: SHAKIRA | Routin | 08/27/2017 | | Results for this | | | e | | | procedure are in the | | | | | | results section. | + +--------+ + + + | EXTERNAL LAB: | Routin | 08/27/2017 | | Results for this | | GLUCOSE | e | | | procedure are in the | | | | | | results section. | + +--------+ + + + | EXTERNAL LAB: | Routin | 08/27/2017 | | Results for this | | ALBUMIN | e | | | procedure are in the | | | | | | results section. | + +--------+ + + + | EXTERNAL LAB: | Routin | 08/27/2017 | | Results for this | | PHOSPHORUS | e | | | procedure are in the | | | | | | results section. | + +--------+ + + + | EXTERNAL LAB: | Routin | 08/27/2017 | | Results for this | | CALCIUM | e | | | procedure are in the | | | | | | results section. | + +--------+ + + + | EXTERNAL LAB: CARBON | Routin | 08/27/2017 | | Results for this | | DIOXIDE | e | | | procedure are in the | | | | | | results section. | + +--------+ + + + | EXTERNAL LAB: | Routin | 08/27/2017 | | Results for this | | CHLORIDE | e | | | procedure are in the | | | | | | results section. | + +--------+ + + + | EXTERNAL LAB: | Routin | 08/27/2017 | | Results for this | | POTASSIUM | e | | | procedure are in the | | | | | | results section. | + +--------+ + + + | EXTERNAL LAB: SODIUM | Routin | 08/27/2017 | | Results for this | | | e | | | procedure are in the | | | | | | results section. | + +--------+ + + + | EXTERNAL LAB: DAMIAN | Routin | 08/27/2017 | | Results for this | | | e | | | procedure are in the | | | | | | results section. | + +--------+ + + + | EXTERNAL LAB: GUILLERMO | Routin | 08/27/2017 | | Results for this | | | e | | | procedure are in the | | | | | | results section. | + +--------+ + + + | EXTERNAL LAB: | Routin | 08/27/2017 | | Results for this | | CREATININE | e | | | procedure are in the | | | | | | results section. | + +--------+ + + + documented in this encounter Results External Lab: DAMIAN (08/27/2017) + + + + + + | Component | Value | Ref Range | Performed | Pathologist | | | | | At | Signature | + + + + + + | WBC, | 5.8 | 4.5 - 11 | EXTERNAL | | | External | | | LAB | | + + + + + + | HGB, | 10.6 (A) | 12 - 16 | EXTERNAL | | | External | | | LAB | | + + + + + + | HCT, | 30.5 (A) | 35 - 45 | EXTERNAL | | | External | | | LAB | | + + + + + + | PLT, | 154 | 140 - 440 | EXTERNAL | | | External | | | LAB | | + + + + + + | RBC, | 3.52 (A) | 4 - 6 | EXTERNAL | | | External | | | LAB | | + + + + + + | MCV, | 87 | 80 - 100 | EXTERNAL | | | External | | | LAB | | + + + + + + | RDW, | 15.5 (A) | 10.5 - 15 | EXTERNAL | | | External | | | LAB | | + + + + + + + +---------+ + + | Performing | Address | City/State/Zipcode | Phone Number | | Organization | | | | + +---------+ + + | EXTERNAL LAB | | | | + +---------+ + + External Lab: eGFR (08/27/2017) + +--------+ + + + | Component | Value | Ref Range | Performed | Pathologist | | | | | At | Signature | + +--------+ + + + | eGFR, | 12 (A) | 60 | EXTERNAL | | | External | | | LAB | | + +--------+ + + + + + | Specimen | + + | Blood | + + + +---------+ + + | Performing | Address | City/State/Zipcode | Phone Number | | Organization | | | | + +---------+ + + | EXTERNAL LAB | | | | + +---------+ + + External Lab: BUN (08/27/2017) + +--------+ + + + | Component | Value | Ref Range | Performed | Pathologist | | | | | At | Signature | + +--------+ + + + | BUN, | 69 (A) | | EXTERNAL | | | External | | | LAB | | + +--------+ + + + + +---------+ + + | Performing | Address | City/State/Zipcode | Phone Number | | Organization | | | | + +---------+ + + | EXTERNAL LAB | | | | + +---------+ + + External Lab: Glucose (08/27/2017) + +---------+ + + + | Component | Value | Ref Range | Performed | Pathologist | | | | | At | Signature | + +---------+ + + + | Glucose, | 108 (A) | 70 - 100 | EXTERNAL | | | External | | | LAB | | + +---------+ + + + + +---------+ + + | Performing | Address | City/State/Zipcode | Phone Number | | Organization | | | | + +---------+ + + | EXTERNAL LAB | | | | + +---------+ + + External Lab: Albumin (08/27/2017) + +-------+ + + + | Component | Value | Ref Range | Performed | Pathologist | | | | | At | Signature | + +-------+ + + + | Albumin, | 4.1 | 3.5 - 5 | EXTERNAL | | | External | | | LAB | | + +-------+ + + + + +---------+ + + | Performing | Address | City/State/Zipcode | Phone Number | | Organization | | | | + +---------+ + + | EXTERNAL LAB | | | | + +---------+ + + External Lab: Phosphorus (08/27/2017) + +---------+ + + + | Component | Value | Ref Range | Performed | Pathologist | | | | | At | Signature | + +---------+ + + + | Phosphorus, | 5.1 (A) | 2.5 - 5 | EXTERNAL | | | External | | | LAB | | + +---------+ + + + + +---------+ + + | Performing | Address | City/State/Zipcode | Phone Number | | Organization | | | | + +---------+ + + | EXTERNAL LAB | | | | + +---------+ + + External Lab: Calcium (08/27/2017) + +-------+ + + + | Component | Value | Ref Range | Performed | Pathologist | | | | | At | Signature | + +-------+ + + + | Calcium, | 8.9 | 8.4 - 10.2 | EXTERNAL | | | External | | | LAB | | + +-------+ + + + + +---------+ + + | Performing | Address | City/State/Zipcode | Phone Number | | Organization | | | | + +---------+ + + | EXTERNAL LAB | | | | + +---------+ + + External Lab: Carbon Dioxide (08/27/2017) + +-------+ + + + | Component | Value | Ref Range | Performed | Pathologist | | | | | At | Signature | + +-------+ + + + | Carbon | 24 | 23 - 32 | EXTERNAL | | | Dioxide, | | | LAB | | | External | | | | | + +-------+ + + + + +---------+ + + | Performing | Address | City/State/Zipcode | Phone Number | | Organization | | | | + +---------+ + + | EXTERNAL LAB | | | | + +---------+ + + External Lab: Chloride (08/27/2017) + +-------+ + + + | Component | Value | Ref Range | Performed | Pathologist | | | | | At | Signature | + +-------+ + + + | Chloride, | 96 | 95 - 112 | EXTERNAL | | | External | | | LAB | | + +-------+ + + + + +---------+ + + | Performing | Address | City/State/Zipcode | Phone Number | | Organization | | | | + +---------+ + + | EXTERNAL LAB | | | | + +---------+ + + External Lab: Potassium (08/27/2017) + +---------+ + + + | Component | Value | Ref Range | Performed | Pathologist | | | | | At | Signature | + +---------+ + + + | Potassium, | 2.8 (A) | 3.5 - 5.1 | EXTERNAL | | | External | | | LAB | | + +---------+ + + + + +---------+ + + | Performing | Address | City/State/Zipcode | Phone Number | | Organization | | | | + +---------+ + + | EXTERNAL LAB | | | | + +---------+ + + External Lab: Sodium (08/27/2017) + +-------+ + + + | Component | Value | Ref Range | Performed | Pathologist | | | | | At | Signature | + +-------+ + + + | Sodium, | 137 | 135 - 145 | EXTERNAL | | | External | | | LAB | | + +-------+ + + + + +---------+ + + | Performing | Address | City/State/Zipcode | Phone Number | | Organization | | | | + +---------+ + + | EXTERNAL LAB | | | | + +---------+ + + External Lab: Creatinine (08/27/2017) + + + + + + | Component | Value | Ref Range | Performed | Pathologist | | | | | At | Signature | + + + + + + | Creatinine, | 4.43 (A) | 0.6 - 1.3 | EXTERNAL | | | External | | | LAB | | + + + + + + + + | Specimen | + + | Blood | + + + +---------+ + + | Performing | Address | City/State/Zipcode | Phone Number | | Organization | | | | + +---------+ + + | EXTERNAL LAB | | | | + +---------+ + + documented in this encounter Visit Diagnoses Not on filedocumented in this encounter"
--- OUTSIDE RECORDS SUMMARY | ~2019-05-10 | XMS | Encounter Summary ---
Demographics + + + | Address | [address] | | | [place] [address] | + + + | Home Phone | | + + + | Preferred Language | Unknown | + + + | Marital Status | | + + + | Catholic Affiliation | 1038 | + + + | Race | Unknown | + + + | Ethnic Group | Unknown | + + + Author + + + | Author | [facility] | | | and [place]aloana | + + + | Organization | [facility] | | | and [place] [...] [place] | | | | | [address] | | + + + + + Care Team Providers + +------+ + | Care Parachute Panel Joiner Name | Role | Phone | + +------+ + PCP | Unavailable | + +------+ + Encounter Details +--------+ + + + + | Date | Type | Department | Care Team | Description | +--------+ + + + + | 08/22/ | Orders Only | [facility] [place] | Jhoana Barreto | | | 2017 | | NEPHROLOGY [address] | M, DO [address] | | | | | [address] | [place] | | | | | [place], [place] | [place], [place] | | | | | [address] | [address] | | | | | [phone] | | | +--------+ + + + [...]
--- OUTSIDE RECORDS SUMMARY | ~2019-05-10 | XMS | Encounter Summary ---
Demographics + + + | Address | [address] | | | [place] [address] | + + + | Home Phone | | + + + | Preferred Language | Unknown | + + + | Marital Status | | + + + | Yarsanism Affiliation | 1038 | + + + | Race | Unknown | + + + | Ethnic Group | Unknown | + + + Author + + + | Author | [facility] | | | and [place]aloana | + + + | Organization | [facility] | | | and [place] | + + + | Address | Unknown | + + + | Phone | Unavailable | + + + Support + + + + + | Name | Relationship | Address | Phone | + + + + + | Erik Brian | ECON | Unknown | | + + + + + | Beverly Eprez | ECON | [place] | | | | | [address] | | + + + + + Care Team Providers + +------+ + | Care Vegetable Tier Name | Role | Phone | + +------+ + PCP | Unavailable | + +------+ + Encounter Details +--------+ + + + + | Date | Type | Department | Care Team | Description | +--------+ + + + + | 08/24/ | Orders Only | [facility] [place] | Angel Barretoias | AUNG (acute kidney | | 2018 | | NEPHROLOGY [address] | M, DO [address] | injury) ([facility]) | | | | [address] | [place] | (Primary Dx) | | | | [place], [place] | [place], [place] | | | | | [address] | [address] | | | | | [phone] | | | +--------+ + + + [...]
--- OUTSIDE RECORDS SUMMARY | ~2019-05-10 | XMS | Encounter Summary ---
Demographics + + + | Address | [address] | | | [place] [address] | + + + | Home Phone | | + + + | Preferred Language | Unknown | + + + | Marital Status | | + + + | Jainism Affiliation | 1038 | + + + | Race | Unknown | + + + | Ethnic Group | Unknown | + + + Author + + + | Author | [facility] | | | and Laloana | + + + | Organization | [facility] | | | and [place] [...] [place] | | | | | [address] | | + + + + + Care Team Providers + +------+ + | Care Plasterer Spray Gun Name | Role | Phone | + +------+ + PCP | Unavailable | + +------+ + Encounter Details +--------+ + + + + | Date | Type | Department | Care Team | Description | +--------+ + + + + | 09/01/ | Abstract | [facility] [place] | RoyergeorgeJhoana | | | 2017 | | NEPHROLOGY [address] | M, DO [address] | | | | | [address] | [place] | | | | | [place], [place] | [place], [place] | | | | | [address] | [address] | | | | | [phone] | | | +--------+ + + + [...] | + +--------+ + + + | RETICULICYTE | Routin | 08/30/2017 | | Results for this | | | e | | | procedure are in the | | | | | | results section. | + +--------+ + + + documented in this encounter Results Reticulocyte (08/30/2017) + +---------+ + + + | Component | Value | Ref Range | Performed | Pathologist | | | | | At | Signature | + +---------+ + + + | Absolute | 67.6 | 40 - 79 | | | | Reticulocyt | | | | | | e Count | | | | | + +---------+ + + + | LDH TOTAL | 430 (A) | 100 - 215 U/L | | | + +---------+ + + + + + | Specimen | + + | | + + + + + | Narrative | Performed At | + + + | Retic, percent 1.86 (range 0.8-2.1%) Retic prod index 0.9 (range | | | 1.0-2.0) | | + + + documented in this encounter Visit Diagnoses Not on filedocumented in this encounter"
--- OUTSIDE RECORDS SUMMARY | ~2019-05-10 | XMS | Encounter Summary ---
Demographics + + + | Address | [address] | | | [place] [address] | + + + | Home Phone | | + + + | Preferred Language | Unknown | + + + | Marital Status | | + + + | Muslim Affiliation | 1038 | + + + | Race | Unknown | + + + | Ethnic Group | Unknown | + + + Author + + + | Author | [facility] | | | and [place]aloana | + + + | Organization | [facility] | | | and [place] | [...] + | Beverly Perez | ECON | [place] | | | | | [address] | | + + + + + Care Team Providers + +------+ + | Care Slack Line Yarder Name | Role | Phone | + +------+ + PCP | Unavailable | + +------+ + Reason for Visit Evaluate & Treat (Routine) +--------+--------+ + + + + | Status | Reason | Specialty | Diagnoses / | Referred By | Referred To | | | | | Procedures | Contact | Contact | +--------+--------+ + + + + | Closed | | Nephrology | Diagnoses | Sabillon, | Mary Lou, | | | | | AUNG (acute | Petra Balderrama, | Jhoana Flowers DO | | | | | kidney | MD [address] | | | | | injury) | [place] | [place] [address] | | | | ([facility]) | [address] [place] | [address] [place] | | | | | Procedures | [place], [place] | [place] | | | | | [place] OFFICE | [address] | [address] Phone: | | | | | OUTPATIENT | Phone: | [phone] | | | | | VISIT 25 | [phone] | Fax: | | | | | MINUTES | Fax: | [phone] | | | | | | [phone] | | +--------+--------+ + + + + Encounter Details +--------+ + + + + | Date | Type | Department | Care Team | Description | +--------+ + + + + | 04/04/ | Off-Site | [facility] | Jhoana Barreto | End stage renal | | 2018 | Visit | NEPHROLOGY [address] | M, DO [address] | disease (HCC) | | | | [address] | [place] | (Primary Dx) | | | | [place], [place] | [place] | | | | | [address] | [address] | | | | | [phone] | | | +--------+ + + + [...] as of this encounter Progress Notes Jhoana Barreto DO - 04/04/2018 2:00 PM PDT[Patient NOT seen. Currently admitted to [facility].] documented in thi s encounter Plan of [...]
--- OUTSIDE RECORDS SUMMARY | ~2019-05-10 | XMS | Encounter Summary ---
Demographics + + + | Address | [address] | | | [place] [address] | + + + | Home Phone | | + + + | Preferred Language | Unknown | + + + | Marital Status | | + + + | Holiness Affiliation | 1038 | + + + | Race | Unknown | + + + | Ethnic Group | Unknown | + + + Author + + + | Author | [facility] | | | and [place]ana | + + + | Organization | [facility] | | | and [place] [...] [place] | | | | | [address] | | + + + + + Care Team Providers + +------+ + | Care Cement Crusher Operator Name | Role | Phone | + +------+ + PCP | Unavailable | + +------+ + Encounter Details +--------+ + + + + | Date | Type | Department | Care Team | Description | +--------+ + + + + | 10/05/ | Off-Site | [facility] [place] | Jhoana Barreto | End stage renal | | 2018 | Visit | NEPHROLOGY [address] | M, DO [address] | disease (HCC) | | | | [address] | [place] | (Primary Dx) | | | | [place], [place] | [place], [place] | | | | | [address] | [address] | | | | | [phone] | | | +--------+ + + + [...] + + documented as of this encounter Last Filed Vital Signs + + + + + | Vital Sign | Reading | Time Taken | Comments | + + + + + | Blood Pressure | 122/74 | 10/04/2017 6:12 PM | | | | | PDT | | + + + + + | Pulse | - | - | | + + + + + | Temperature | 36.5 C (97.7 F) | 10/04/2017 6:12 PM | | | | | PDT | | + + + + + | Respiratory Rate | - | - | | + + + + + | Oxygen Saturation | - | - | | + + + + + | Inhaled Oxygen | - | - | | | Concentration | | | | + + + + + | Weight | - | - | | + + + + + | Height | - | - | | + + + + + | Body Mass Index | - | - | | + + + + + documented in this encounter Progress Notes Jhoana Barreto, - 10/04/2017 10:00 AM PDT Subjective: DIALYSIS NOTE Patient ID: Aurea Perez is a 37 y.o. female. 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 She also had CHF , bronchopnuemonia, accelerated HTN, which is improved with drug Rx and UF. She is now on outpt HD at [place], [place]. She is feeling better is lucid, ambularto ry, and eating better. She denies headaches, dyspnea or any new bruising. She states that h er housing situation is still tenuous and she does not see her children as frequently as she would like. She is still going to [facility] for her [facility], instead of a local campus for unclear reas ons. She is feelng better overall. Review of Systems Objective: BP 122/74 | Temp 36.5 C (97.7 F) EDW 53 kg Physical Exam Heart: Regular rate and rhythm with no S3, S4, murmur or rub. Lungs: CTA bilaterally. No rales or wheezes. Abdomen: soft, obese, nontender, NABS. Extremities: no edema, clubbing, cyanosis, or foot ulcers. LAB: BUN 70, Cr 7.4, K+ 4.6, HCO3 24, Ca++ 9.1, PO4 8.1, , PTH 139, Alb 3.8, Hb 9.9, TSat. = 39 %, spKT/V = 2.20. Assessment: 1. prolonged AUNG, suspect that given her U.O. and Scr that she is End-Stage, i.e. Stage 5 C KD at this point. 2. Hypertension-- improved with ACEI, carvedilol and regular UF. 3. 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 4. CKD/MBD-- Her phosphorus control appears stable on the current dose of Renvela. Her P TH is reasonable good w/o any Hectorol at this point. 5. Nutrition-- improving. her appetite is excellent on current Rx. 6. HUS/TTP-- she appears to be stabilizing post pheresis, and with use of Solaris infusion s. Would be more convenient for her to pursue these locally, [facility] to decrease her distance driving? Plan: 1. My gut feeling is that she is likely ESRD at this point? Will recheck her 24 Hr urine for Pro., Ccr over the weekend. 2. She will need permanent access, in all likelihood. Will consult Dr. Xavier Gallagher . Home CAPD may be less attractive as not clear how reliable she would be , and her home situation is very tenuous , currently. 3. She appears well dialyzed clinically by the most recent KT/V. 4. She will be rechecked here in 2 weeks. : [place] Edwra Gallagher MD, GABBI Lew MD, Hem/Onc, Rigoberto Sharp documented in thi s encounter Plan of Treatment Not on filedocumented as of this encounter Visit Diagnoses + + | Diagnosis | + + | End stage renal disease (HCC) - Primary End stage renal disease | + + documented in this encounter"
--- OUTSIDE RECORDS SUMMARY | ~2019-05-10 | XMS | Encounter Summary ---
Demographics + + + | Address | [address] | | | [place] [address] | + + + | Home Phone | | + + + | Preferred Language | Unknown | + + + | Marital Status | | + + + | Rastafarian Affiliation | 1038 | + + + | Race | Unknown | + + + | Ethnic Group | Unknown | + + + Author + + + | Author | [facility] | | | and [place] | + + + | Organization | [facility] | | | and [place] | [...] [place] | | | | | [address] | | + + + + + Care Team Providers + +------+ + | Care Telesales Professional Name | Role | Phone | + +------+ + PCP | Unavailable | + +------+ + Encounter Details +--------+ + + + + | Date | Type | Department | Care Team | Description | +--------+ + + + + | 07/16/ | Hospital | [facility] | Aldo Cristobal MD | Acute renal | | 2018 - | Encounter | [facility] [address] | [address] | insufficiency; | | | | [place], | [address] [place], | Cardiomyopathy, | | 07/22/ | | [place] [address] | [place] [address] | unspecified type | | 2018 | | [phone] | [phone] | (FORM[facility]LY [facility]); Intrauterine | | | | | | ; | | | | | | Methamphetamine use; | | | | | | AUNG (acute kidney | | | | | | injury) ([facility]LY [facility]); | | | | | | Uncontrolled | | | | | | hypertension; | | | | | | Thrombotic | | | | | | microangiopathy | | | | | | ([facility]LY [facility]); Anemia, | | | | | | unspecified type; | | | | | | Termination of | | | | | | (fetus) | +--------+ + + + + Social [...] + + + | Blood Pressure | 153/84 | 07/22/2017 11:28 AM | | | | | PST | | + + + + + | Pulse | - | - | | + + + + + | Temperature | 36.9 C (98.4 F) | 07/22/2017 11:28 AM | | | | | PST | | + + + + + | Respiratory Rate | 18 | 07/22/2017 11:28 AM | | | | | PST | | + + + + + | Oxygen Saturation | - | - | | + + + + + | Inhaled Oxygen | - | - | | | Concentration | | | | + + + + + | Weight | 61.1 kg (134 lb 9.6 | 07/22/2017 11:28 AM | | | | oz) | PST | | + + + + + | Height | 167.6 cm (5' 6") | 07/22/2017 11:28 AM | | | | | PST | | + + + + + | Body Mass Index | 21.73 | 07/22/2017 11:28 AM | | | | | PST | | + + + + + documented in this encounter Discharge Summaries Nisha Licona MD - 07/22/2017 11:11 AM PSTFormatting of this note might be different fr om the original. Discharge Summaries by Nisha Licona MD at 07/22/17 1111 Author: Nisha Licona MD Service: (none) Author Type: Physician Filed: 07/22/17 1832 Date of Service: 07/22/17 1111 Status: Addendum Explosive Technician: Nisha Licona MD (Physician) Related Notes: Original Note by Nisha Licona MD (Physician) filed at 07/22/17 1701 [facility] Medicine Discharge Summary Patient: Aurea Perez Date of : 1980 Admission Date: 07/16/2017 Discharge Date: 07/22/2017 Primary Care Provider: Erik Flor. This is no longer patient's PMD. She is trying to establish care with PMD and radiation technician at home. Consultations: OBgyn Nephrology Critical Care Team Principal Diagnosis: Hypertensive crisis and AUNG in setting of Hospital Events 07/03: Pt admitted to [facility] in [place] and was found to have plts of 77, hct of 24 , vice president planning 2.1 (0.8 in 2017). She was intubated on 07/06 and transferred to [facility][1] with hypertensive crisis, anemia, thrombocytopenia, abnormal LFTs and AUNG, resp fa ilmarino, ETT. She was treated with prednisone, plasmapheresis and eculizumab for concerns for TTP/HUS, HELLP. Renal biopsy done 07/09 showing global glomerular sclerosis, extensive inter stitial fibrosis and thrombotic microantiopathy. Negative [id number], diagnosis of atypical H US TTP felt to be less likely so therapy for TTP was discontinued. Pt was transferred to for termination of that it was threatening her life. 07/16/2017 - date of admission to 07/17: Termination of 07/18: Transfer to medical floor, nephrology consult, SHM consult. Labetalol changed to co reg. 07/19: Hypotension, decreased coreg, d/c nifedipine 07/20: Hypertension, increase coreg, add nifedipine SR 07/21: Change lasix to po BID, increase nifedipine SR to 60 daily Secondary Diagnoses: Acute kidney injury due to unclear etiology, biopsy shows thrombotic microangiopathy Anemia Termination of at 21 weeks H/O meth use Body mass index is 21.73 kg/m. Outpatient Followup Issues (including pending test results): It is very important that you follow up with a primary doctor and radiation technician (kidney doct or) and OB when you get home. You need to have labs drawn including a CBC and chem8. It would be best if you could get your labs checked on 07/23 and 07/26 and the labs should be sent to your doctor. You should continue to get your labs checked 1-2 times/week until your kidney function has returned to normal You should have your blood pressured followed closely at home and let your doctor know if y our BP is over 170 You should f/u with OB in [place] for tubal ligation and follow-up. It is critically imp ortant to your health that you not become again. Brief Reason for Admission: Pt is a 37 yo woman with h/o meth use, HTN, prior h/o HELLP, prior h/o preeclampsia who was admitted to [facility] on 07/16 for termination of her at 21 weeks due to hypertensive crisis, CM, resp failure requiring intubation and AUNG. Hospital Course: AUNG Biopsy proven thrombotic microangiopathy treated with pheresis and ecluzimab now s/p termin ation of (no need for further pheresis and ecluzimab per nephrology) Likely underlying kidney disease from HTN given degree of fibrosis on biopsy Appreciate nephrology consult No need for immunosuppression at this time Improvement in her BP Enrobing Machine Corder: 4.3--4.2--3.7--3.5--3.2--3.1 Lasix changed to po, given a 1 week course of lasix at discharge and instructed to see a ne phrologist and PMD for further lasix orders Low sodium diet BP control Anemia Hct has been low, unclear if she received any transfusions at outside hospitals Hct: 21--25--21--21--23--23.3--24--22.6 Baseline hct in care everywhere 31-33 (01/2017) Transfuse for symptoms of if hct under approx 20 Iron studies done 07/18, no iron deficiency Hypertension Pt was treated with IV labetalol and po labetalol 600 mg po q 8 hours(07/17-07/18) and nifedi pine IR 20 mg po q 4 hours (07/17-07/19), started on coreg 07/18 Hypotension in cathode builder 07/19 with marked improvement in her BP later in day Decrease coreg to 12.5 mg po q 12 hours with hold parameters 07/19, increased up to 25 mg BI D on 07/20 D/C nifedipine IR 07/19, resumed briefly 07/20, d/c'd again 07/20 Start Nifedipine SR 30 mg daily on 07/20, increase to 60 mg dialy on 07/21 Goal SBP under approx 160 Pt was given a 2 week course of Nifedipine SR 60 mg daily and a 2 week supply of coreg 25 m g po BID She will need to establish care with a PMD to get refills of these medications Volume overload Still with significant peripheral edema Echo 07/18: EF=52%, mild LVH, mod AI, mod MR, mod TR, mod elevated PAP 46 Change lasix to 20 mg BID (from 20 IV) Low sodium diet Weight: 63.8--61.1 Termination of 07/17 MFM has been involved in her care MFM spoke with patient about contraception, pt signed tubal papers, needs to wait at least 30 days Pt should get depoprovera prior to d/c home-ordered by [facility] Pt should f/u with OB in [place] for tubal and follow-up Will let pt know that she may have increased vaginal bleeding 10-14 days post-termination ( 07/27-07/31) lasting approx 2 days, if increased significantly she should be seen by OB in [facility]. Per patient, family is now aware of her (prior notes stated that they were not aw are) H/O meth use Pt is committed to staying off meth Dispo: Pt and staff spent a great deal of time on day of discharge trying to find a MD for her to follow-up with at home. Pt understands how important it is to her health to establi sh care with a PMD and radiation technician. Goals of Care: N/A Discharge Medications: Current Discharge Medication List START taking these medications Details acetaminophen (TYLENOL) 325 mg Oral Tablet Take 1-2 Tabs by mouth every six hours as needed . Start date: 07/22/2017 oxyCODONE, Immediate release, (AKA ROXICODONE) 5 mg Oral Tablet Take 1-2 Tabs by mouth ever y six hours as needed. Start date: 07/22/2017 furosemide (AKA LASIX) 20 mg Oral Tablet Take 1 Tab by mouth every day. 1 week supply give n Start date: 07/22/2017 carvedilol (AKA COREG) 25 mg Oral Tablet Take 1 Tab by mouth every twelve hours. 2 week [place] pply given Start date: 07/22/2017 NIFEDipine SUSTAINED release (AKA PROCARDIA XL) 60 mg Oral Tablet Extended Rel 24 hr (2) Ta ke 1 Tab by mouth every day. 2 week supply given Start date: 07/23/2017 Medications Discontinued: none Significant Test Results and Procedures: See above under Hospital Events for procedures Cardiac echo 07/18: Summary: 1. Low normal left ventricular systolic function. The calculated ejection fraction is 52.0 %. The left ventricular size is normal. Mild left ventricular hypertrophy. 2. Trileaflet and sclerotic aortic valve. No aortic valve stenosis. Moderate aortic valve regurgitation. 3. Moderate mitral regurgitation. Mild thickening of the mitral anterior and posterior leaflets. 4. Moderate tricuspid regurgitation. 5. Moderately elevated pulmonary artery systolic pressure estimated at 46.6 mmHg. Xr Chest 1 View Result Date: 07/17/2017 No infiltrates Right-sided catheters as described above. No complications. Dictated by: DEVAUGHN RIZVI Dictated: 07/17/2017 2:23 AM Job: [id number] Lab results (within last 13 months/80hours) 07/22/17 0514 07/21/17 0653 07/18/17 0006 WBC -- 9.6 < > 10.4 HCT 22.6* 24.0* < > 21.6* MCV -- 89 < > 88 PLT -- 182 < > 146* NA 139 138 < > 133* K 3.2* 3.6 < > 3.6 CL 95* 96* < > 93* TCO2 29 29 < > 24 BUN 84* 73* < > 80* CR 3.16* 3.28* < > 4.32* GLUC 100* 95 < > -- CA 7.7* 8.0* < > -- MG -- -- -- 2.04 < > = values in this interval not displayed. Lab results (within last 13 months/9479hours) 07/19/17 0610 ALT 80* AST 47* ALKP 68 ALB 3.2* INR 0.9 PTT 24.5 Condition on discharge: Stable. Last Weight: 61.1 kg (134 lb 9.6 oz). Admission Wt:63.8 kg (140 lb 10.5 oz) Exam significant for HEENT: Normocephalic, atraumatic, dry mucous membranes, small opening at site of central l ine, looks OK Eyes: Sclera anicteric noninjected Skin: No rashes. No jaundice. pale Heart: RRR. No murmurs. Lungs: Decreased breath sounds at bases, no wheezing, no rhonchi Abdomen: BS normal. Soft. Mild distended. Non tender Extremities: No cyanosis. 1-2+ edema-improved, PICC line right arm removed Neuro: speech fluent, moving extremities without difficulty Patient Discharge Instructions: It is very important that you follow up with a primary doctor and radiation technician (kidney doc tor) and OB when you get home as soon as possible. You need to have labs drawn including a CBC and chem8. It would be best if you could get your labs checked on 07/23 and 07/26 and the labs should be sent to your doctor. You should continue to get your labs checked 1-2 times/week until your kidney function has returned to normal You should have your blood pressured followed closely at home and let your doctor know if y our BP is over 170 You should f/u with OB in [place] for tubal ligation and follow-up. It is critically imp ortant to your health that you not become again. Discharge Coordination: Disposition: home. Time spent on discharge coordination: 45 minutes Nisha Licona MD [facility] Medicine Office Quality Metrics: Telemetry on day of discharge: Patient is not currently on telemetry CC: Erik Flor Phone number [phone] Fax number [phone] Addendum I stressed the importance of strict adherence to her medications. We reviewed them in grea t detail. I faxed them to [facility] at . Pt and her uncle were told later that her insur ance wouldn't cover her medications at [employer] and instructed to call [facility] and have her prescriptions transferred to [facility] [address]. Pt and uncle [facility] and there were no prescriptions (because they had n't called [facility]). Instead of dealing with this at that time, [place] got in [place]. They called the nursing station and asked to have her presc riptions called in "to a pharmacy in [place]". I have printed her prescriptions and left the m at the nursing station on 11SW. If patient or her uncle call back and give us a name of a pharmacy they can go to these prescriptions can be faxed there. Unfortunately we don't hav e a phone number for the uncle and patient doesn't have a phone. It is very unfortunate aft er the amount of counseling and teaching that went into her discharge plans that she has lef t the city with her prescriptions. Nisha Licona MD 18:32; 07/22/2017 documented in this encounter Medications at Time of Discharge + + + +---------+ + + | Medication | Sig | Dispensed | Refills | Start | End Date | | | | | | Date | | + + + +---------+ + + | acetaminophen | Take 325-650 mg by | | 0 | 02/15/20 | | | (TYLENOL) 325 mg | mouth every 6 (six) | | | 18 | | | tablet | hours as needed. | | | | | + + + +---------+ + + | carvedilol (COREG) | 6.25 mg. Take one | | 0 | /15/20 | | | 25 mg tablet | tab twice daily | | | 18 | | + + + +---------+ + + | | Swish and spit 10 | | 0 | 01/15/20 | | | Diphenhyd-Hydrocort- | mLs every 6 (six) | | | 17 | | | Nystatin | hours as needed for | | | | | | (FIRST-DUKES | Sore Throat. | | | | | | MOUTHWASH) SUSP | | | | | | + + + +---------+ + + | famotidine | Take 1 tablet by | | 0 | 01/15/20 | | | (PEPCID) 20 mg | mouth 2 (two) times | | | 17 | | | tablet | daily for 14 days. | | | | | + + + +---------+ + + | furosemide (LASIX) | Take 1 Tab by mouth | | 0 | 07/22/19 | | | 20 mg tablet | every day. | | | 18 | | + + + +---------+ + + | oxyCODONE | Take 5-10 mg by | | 0 | 07/22/19 | | | (ROXICODONE) 5 mg | mouth every 6 (six) | | | 18 | | | tablet | hours as needed. | | | | | + + + +---------+ + + | labetalol | Inject 4 mLs into | | 0 | 07/06/19 | | | (TRANDATE) 5 mg/mL | the vein every 2 | | | 18 | 8 | | injection | hours as needed (for | | | | | | | SBP>150). | | | | | + + + +---------+ + + | LORazepam (ATIVAN) | Take 1-2 tablets by | 60 | 0 | 07/06/19 | | | 1 mg tablet | mouth every 6 hours | tablet | | 18 | 8 | | | as needed for | | | | | | | Anxiety. | | | | | + + + +---------+ + + | pantoprazole | Inject 10 mLs into | | 0 | 07/07/19 | | | (PROTONIX) 4 mg/mL | the vein Daily. | | | 18 | 8 | | injection | | | | | | + + + +---------+ + + | 27-0.8 mg | Take 1 tablet by | | 0 | 07/07/19 | | | multivitamin tablet | mouth Daily. | | | 18 | 8 | + + + +---------+ + + | propofol infusion | Inject 522-3,654 | | 0 | 07/06/19 | | | (DIPRIVAN) 10 mg/mL | mcg/min into the | | | 18 | 8 | | infusion | vein continuous. | | | | | + + + +---------+ + + documented as of this encounter Progress Notes Nisha Licona MD - 07/23/2017 2:12 PM PSTFormatting of this note might be different fr om the original. Progress Notes by Nisha Licona MD at 07/23/171411 Author: Nisha Licona MD Service: (none) Author Type: Physician Filed: 07/23/171413 Date of Service: 07/23/171411 Status: Signed Explosive Technician: Nisha Licona MD (Physician) [facility] ([facility]) brief progress note Case discussed with our catalytic case operator who has been in contact with patients catalytic case operator. CM confirmed that patient got her medications filled in [place] including Nifedipine, Coreg and oxycodone (but not the lasix which is OK as nephrology was OK with her stopping the lasi x at this time). Per CM pt was able to get and appointment with a PMD on 08/04 and will be following up with urgent care prior to that for labs. Nisha Licona MD 14:14; 07/23/2017 isha Licona M D - 07/22/2017 6:32 PM PST Progress Notes by Nisha Licona MD at 07/22/171831 Author: Nisha Licona MD Service: (none) Author Type: Physician Filed: 07/22/171831 Date of Service: 07/22/171831 Status: Signed Explosive Technician: Nisha Licona MD (Physician) [facility] ([facility]) brief progress note Addendum I stressed the importance of strict adherence to her medications. We reviewed them in grea t detail. I faxed them to [facility] at . Pt and her uncle were told later that her insur ance wouldn't cover her medications at [facility]. Pt and uncle were given the # at [employer] and instructed to call [facility] and have her prescriptions transferred to [facility] [address]. Pt and uncle showed up at [facility] and there were no prescriptions (because they had n't called [facility]). Instead of dealing with this at that time, they got in [place]. They called the nursing station and asked to have her pres riptions called in "to a pharmacy in [place]". I have printed her prescriptions and left the m at the nursing station on 11. If patient or her uncle call back and give us a name of a pharmacy they can go to these prescriptions can be faxed there. Unfortunately we don't hav e a phone number for the uncle and patient doesn't have a phone. It is very unfortunate aft er the amount of counseling and teaching that went into her discharge plans that she has lef t the [facility] with her prescriptions. Nisha Licona MD 18:32; 07/22/2017 eggy Lopez RN - 07/22/2017 5:11 PM PST Progress Notes by Brianna Lopez RN at 07/22/171710 Author: Brianna Lopez RN Service: (none) Author Type: Registered Nurse Filed: 07/22/171710 Date of Service: 07/22/171710 Status: Signed Explosive Technician: Brianna Lopez RN (Registered Nurse) NSG Discharge Note Patient: Aurea Perez Date: 07/22/2017 Discharge instruction: Discharge instructions were given/reviewed with patient and family. Learner indicates understanding. Discharge med: Discharge prescriptions were given to the patient. and Discharge prescript ions were sent electronically to the patient's preferred pharmacy. Belongings verified with the patient: Yes - see flowsheet Time of discharge: 1710 Discharge to:home Mode of Transport: ambulation Accompanied by: support person Brianna Lopez RN, 07/22/2017 4:52 PM Agatha Dolan MD - 07/22/2017 5:06 PM PSTFormatting of this note might be different from the o riginal. Progress Notes by Jennifer Melo MD at 07/22/171705 Author: Jennifer Melo MD Service: (none) Author Type: Physician Filed: 07/22/171706 Date of Service: 07/22/171705 Status: Signed Explosive Technician: Jennifer Melo MD (Physician) Nephrology Note: -Pt discharged today, will have her stop lasix at this time. Given high urine output and c an be readdressed as an outpatient. Should have labs checked on Wednesday, per nursing plan to see doctor in next 24-48 hrs Fauzia Guy MSW - 07/22/2017 12:06 PM PSTFormatting of this note might be different from t bennie original. Progress Notes by Fauzia De Leon MSW at 07/22/17 1206 Author: Fauzia De Leon MSW Service: (none) Author Type: Sinter Feeder Filed: 07/22/17 1218 Date of Service: 07/22/171205 Status: Signed Explosive Technician: Fauzia De Leon MSW (Sinter Feeder) Case Management Progress Note 07/22/2017 12:06 Patient Aurea Perez is a 37 y.o. female transferred to [facility] due to medical complications and recommendation for therapeutic termination of . OB SW following for midterm demise. Anticipated D/C Plan: Pt returning to [place], [place] at discharge; per RN, has a abdi jean baptiste with a family or friend Current Clinical Needs: Per MD note, needs to make a PCP appt Discussion: OB FOOD AND BEVERAGE INTERN reviewed chart, consulted with healthcare team, and met with pt to foll ow up for support and resources related to pt's loss. Pt was welcoming of social w ork visit and shared that she's been crying and grieving. Pt was primarily focused on her MD telling her she needs to have a primary care visit scheduled in order to discharge. Pt want ed to continue making phone calls related to this. FOOD AND BEVERAGE INTERN inquired about if pt has selected a home. Pt said she has not, and that she wan ts to wait until she gets home to discuss it with her mother. She shared that she has many f amily members buried in [place], but she cannot remember where. She said she or her mother c an be contacted for this decision, and that the phone number on record ([phone]) reache s both of them. Pt then stated she needed to continue making phone calls before offices clos ed for lunch. OB FOOD AND BEVERAGE INTERN to continue to follow up with pt (likely after discharge) to obtain home cho ice. Pt has been given the list of homes, which includes the OB FOOD AND BEVERAGE INTERN contact yajaira BoxSW FOOD AND BEVERAGE INTERN following pt for discharge needs related to selecting a primary care doctor. Case Management Interventions: Case Mgmt Team Interventions: Care coordination;Consult wit h healthcare team;Crisis counseling/emotional support/grief and loss support;Demise counseli ng and coordination [place] of Choice: n/a Medicare Important Message given: Medicare IM given: N/A DAHIANA Delvalle Clinical Sinter Feeder Pager: [phone] Alexi Evans MD - 07/22/2017 11:41 AM PSTFormatting of this note might be different from the hamlet ginal. Progress Notes by Nisha Licona MD at 07/22/17 1141 Author: Nisha Licona MD Service: (none) Author Type: Physician Filed: 07/22/17 1144 Date of Service: 07/22/17 114 Status: Addendum Explosive Technician: Nisha Licona MD (Physician) Related Notes: Original Note by Nisha Licona MD (Physician) filed at 07/22/17 1143 [facility] ([facility]) brief progress note Pt OK for discharge but she must have an appointment made with a PMD at home prior to disch arge. Pt is too high risk for getting lost to f/u and needs to see an MD early next week with lab check. Pt is working on getting an appointment made (she told me yesterday she had one made but it turns out she doesn't have one yet) Nisha Licona MD 11:43; 07/22/2017 onversion Transact ion, Provider Unknown - 07/22/2017 10:18 AM PSTFormatting of this note might be different fr om the original. Progress Notes by Jessica Cannon RN at 07/22/17 1018 Author: Jessica Cannon RN Service: (none) Author Type: Registered Nurse Filed: 07/22/17 1018 Date of Service: 07/22/17 1018 Status: Signed Explosive Technician: Jessica Cannon RN (Registered Nurse) NSG Shift Summary Patient: Aurea Perez AO X 4, VSS. Reporting nausea but able to eat cake and pop quickly. C/O abdominal soreness/ache; given oxycodone with good relief Ambulating independently Voiding well; still some vaginal bleeding but only mild noted. TEDS bilateral, cont to have edema, per pt improving slowly Jessica Cannon RN, 07/22/2017 10:18 AM onver chaz Transaction, Provider Unknown - 07/22/2017 7:02 AM PST Progress Notes by Corrie Whittington RN at 07/22/17 0702 Author: Corrie Whittington RN Service: (none) Author Type: Registered Nurse Filed: 07/22/17702 Date of Service: 07/22/17701 Status: Signed Explosive Technician: Corrie Whittington RN (Registered Nurse) NSG Shift Summary Patient: Aurea Perez VSS, afebrile Pt A and O x4, anxious at times 1x benadryl ordered for LE pruritis Pain well managed with PRN oxycodone Pt ambulating in halls independently AUO, BA privileges PICC patent, pos blood return Tolerating diet, no n/v Will continue to monitor and offer support Corrie Whittington RN, 07/22/2017 7:02 AM Raghu Littlejohn MD - 07/21/2017 11:59 PM PSTFormatting of this note might be different from the o riginal. Progress Notes by Raghu Georges MD at 07/21/17 8303 Author: Raghu Georges MD Service: (none) Author Type: Physician Filed: 07/21/17 108 Date of Service: 07/21/17 939 Status: Signed Explosive Technician: Raghu Georges MD (Physician) [facility] [facility] Cross Coverage Note: Called by RN regarding patient requesting benadryl for sleep and le pruritis. 25mg x 1 Po ordered. Raghu Georges MD 23:59; 07/21/2017 Shruthi Forrester RN - 07/21/2017 5:47 PM PSTFormatting of this note might be different from the o riginal. Progress Notes by Shruthi Argueta RN at 07/21/17 5299 Author: Shruthi Argueta RN Service: (none) Author Type: Registered Nurse Filed: 07/21/17 1750 Date of Service: 07/21/171746 Status: Signed Explosive Technician: Shruthi Argueta RN (Registered Nurse) [facility] Progress Note Brief Patient: Aurea Perez VSQ=[phone]; DBP=72-90; sustained release nifedipine increased dose today, given - patient tolerating well. Up ad halie in room and hallway, showered. Diuresing well; moderate amount of pink, think vaginal flow. Had one emesis; had a bm. Patient hoping to be discharged ney [place].TL PICC patent, flushed per protocol. Continue to monitor. Shruthi Argueta RN, 07/21/2017 5:47 PM Alexi Evans MD - 07/21/2017 5:29 PM PSTFormatting of this note might be different from the [place]. Progress Notes by Nisha Licona MD at 07/21/171728 Author: Nisha Licona MD Service: (none) Author Type: Physician Filed: 07/21/171734 Date of Service: 07/21/171728 Status: Signed Explosive Technician: Nisha Licona MD (Physician) [facility] Progress Note Name: Aurea Perez PCP: Erik Flor Location: [address] Day #: 5 Reason for Admission and Continued Stay Pt is a 37 yo woman with h/o meth use, HTN, prior h/o HELLP, prior h/o preeclampsia who was admitted to [facility] on 07/16 for termination of her at 21 weeks due to hypertensive crisis, CM, resp failure requiring intubation and AUNG. PMD: Pt is going to f/u with Dr. Flor, in [facility] Events 07/03: Pt admitted to [facility] in [place] and was found to have plts of 77, hct of 24 , vice president planning 2.1 (0.8 in 2017). She was intubated on 07/06 and transferred to [facility][1] with hypertensive crisis, anemia, thrombocytopenia, abnormal LFTs and AUNG, resp fa ilure, ETT. She was treated with prednisone, plasmapheresis and eculizumab for concerns for TTP/HUS, HELLP. Renal biopsy done 07/09 showing global glomerular sclerosis, extensive inter stitial fibrosis and thrombotic microantiopathy. Negative [id number], diagnosis of atypical H US TTP felt to be less likely so therapy for TTP was discontinued. Pt was transferred to for termination of that it was threatening her life. 07/16/2017 - date of admission to 07/17: Termination of 07/18: Transfer to medical floor, nephrology consult, M consult. Labetalol changed to co reg. 07/19: Hypotension, decreased coreg, d/c nifedipine 07/20: Hypertension, increase coreg, add nifedipine SR 07/21: Change lasix to po BID, increase nifedipine SR to 60 daily With the exception of the changes, the remainder of the A&P is unchanged as of 07/21/2017 Assessment & Plan Active medical problems AUNG Biopsy proven thrombotic microangiopathy treated with pheresis and ecluzimab now s/p termin ation of (no need for further pheresis and ecluzimab per nephrology) Likely underlying kidney disease from HTN given degree of fibrosis on biopsy Appreciate nephrology consult No need for immunosuppression at this time Improvement in her BP Enrobing Machine Corder: 4.3--4.2--3.7--3.5--3.2 Continue with lasix 20 mg IV daily Low sodium diet BP control Anemia Hct has been low, unclear if she received any transfusions at outside hospitals Hct: 21--25--21--21--23--23.3--24 Baseline hct in care everywhere 31-33 (01/2017) Transfuse for symptoms of if hct under approx 20 Iron studies done 07/18, no iron deficiency Hypertension Pt was treated with IV labetalol and po labetalol 600 mg po q 8 hours(07/17-07/18) and nifedi pine IR 20 mg po q 4 hours (07/17-07/19), started on coreg 07/18 Hypotension in cathode builder 07/19 with marked improvement in her BP later in day Decrease coreg to 12.5 mg po q 12 hours with hold parameters 07/19, increased up to 25 mg BI D on 07/20 D/C nifedipine IR 07/19, resumed briefly 07/20, d/c'd again 07/20 Start Nifedipine SR 30 mg daily on 07/20, increase to 60 mg dialy on 07/21 Goal SBP under approx 160 Can give PRN nifedipine IR 10 mg if SBP over 170's (but would not reorder as scheduled) Volume overload Still with significant peripheral edema Echo 07/18: EF=52%, mild LVH, mod AI, mod MR, mod TR, mod elevated PAP 46 Change lasix to 20 mg BID (from 20 IV) Low sodium diet Weight: 63.8--61.1 Termination of 07/17 [facility] has been involved in her care MFM spoke with patient about contraception, pt signed tubal papers, needs to wait at least 30 days Pt should get depoprovera prior to d/c home-ordered by [facility] Pt should f/u with OB in [place] for tubal and follow-up Will let pt know that she may have increased vaginal bleeding 10-14 days post-termination ( 07/27-07/31) lasting approx 2 days, if increased significantly she should be seen by OB in [facility]. Per patient, family is now aware of her (prior notes stated that they were not aw are) H/O meth use Pt is committed to staying off meth Discharge plan: Plan to DC to home 3-4 days Chronic/Resolved medical problems Body mass index is 21.73 kg/m. Quality/Required Documentation [place]: Not present Central Line: Not present pt had right IJ in place that was discontinued 07/19, she has a ri ght PICC line still in place Telemetry: Patient is not currently on telemetry Antibiotics: None ordered DVT prophylaxis: SCDs and/or TEDs Restraints: None Subjective and Events Overnight Pt reports that she "feels awesome" really wants to go home, spoke with her 4 yo son, ishmael Ocampo. Objective Vital Signs: Temp: 37.1 C (98.8 F) Temp (24hrs), Av.7 C (98.1 F), Min:36.2 C (97.1 F), M ax:37.4 C (99.3 F) BP: 143/72 Heart Rate: 74 Resp: 18 SpO2: 97 % Oxygen Therapy?: No-Room Air O2 Liter Flow ( 1L or More): (not recorded) Exam General: Awake and alert. No distress, talkative,lying in bed, briefly started crying when she realized she wasn't going home HEENT: Normocephalic, atraumatic, dry mucous membranes, erythema decreased at right neck, s mall opening at site of central line, looks OK Eyes: Sclera anicteric noninjected Skin: No rashes. No jaundice. pale Heart: RRR. No murmurs. Lungs: Decreased breath sounds at bases, no wheezing, no rhonchi Abdomen: BS normal. Soft. Mild distended. Non tender Extremities: No cyanosis. 1-2+ edema-improved, PICC line right arm, teds in place Neuro: speech fluent, moving extremities without difficulty Labs Reviewed and remarkable for: Lab results (within last months/) 07/21/17 0653 07/20/17 0545 07/18/17 0006 WBC 9.6 12.3* < > 10.4 HCT 24.0* 23.3* < > 21.6* MCV 89 89 < > 88 PLT 182 177 < > 146* NA 138 140 < > 133* K 3.6 3.7 < > 3.6 CL 96* 98 < > 93* TCO2 29 29 < > 24 BUN 73* 77* < > 80* CR 3.28* 3.55* < > 4.32* GLUC 95 88 < > -- CA 8.0* 8.4* < > -- MG -- -- -- 2.04 < > = values in this interval not displayed. Lab results (within last months/) 07/19/17 0610 ALT 80* AST 47* ALKP 68 ALB 3.2* INR 0.9 PTT 24.5 Microbiology Reviewed and remarkable for: Nasal 07/16: No MRSA Radiology Reviewed and remarkable for: US pelvic 07/18 1. Mild intraabdominal ascites located in the right abdomen and pelvis, including the area of right lower quadrant abdominal bulge. No masses or hemorrhage. 2. Normal appearing post uterus. Nisha Licona MD Reach via [employer] 7AM to 7PM Call char filter operator helper for cross-cover 7PM to 7AM Time documentation not applicable Jennifer Barton MD - 07/21/2017 3:01 PM PST Progress Notes by Jennifer Melo MD at 07/21/17 1501 Author: Jennifer Melo MD Service: (none) Author Type: Physician Filed: 07/21/17 1600 Date of Service: 07/21/17 1501 Status: Signed Explosive Technician: Jennifer Melo MD (Physician) [facility] Progress Note Daily update: -Creatinine continues to improve -blood pressure remains elevated -Increase nifedipine to 60mg daily -change lasix to 20mg oral -reports significant urine output, becomes tearful during our discussions. Reports having nightmares. Her mother recommended watching some cartoons Coverage: Please see treatment team for daily coverage 7am-5pm, and the on-call schedule fo r night coverage issues Summary: ID: Aurea Perez; 37 y.o. female with recent complicated by biopsy prove n thrombotic microangiopathy who was transferred for termination of . Admitted on : 07/16/2017 Primary Blister Packaging Machine Operator: None, initial consult, Dr. Pat here Reason for Admission: thrombotic microangioplathy/AUNG and termination of Summary of Current Hospitalization: Assessment/ Plan: -AUNG: biopsy proven thrombotic microangiopathy reportedly treated with pheresis and ecluzim ab now s/p termination of with significant improvement in her blood pressures and now with some additional improvement in her creatinine. ?whether TMA was secondary to hyper tension or preeclampsia? -no additional indication for pheresis -would not give any additional ecluzimab -May ultimately benefit from atypical HUS work up with [place] complement panel but will hold off right now. Volume: + edema on exam, -lasix 20mg PO BID -low sodium diet -anticipate diuresis over the next 1-2 weeks Electrolytes: k trending down, liberalize diet to low sodium Hypertension:remains hypertensive -carvedilol 25mg BID, increased 07/20 -lasix 20mg PO daily -Increase nifedipine 60mg daily, started 07/20 With the exception of the modified portions of the assessment and plan - the assessment and plan is unchanged as of 07/21/2017 VS: BP: 163/81, Heart Rate: 74, Resp: 20 Systolic (24hrs), Av , Min:154 , Max:187 Diastolic (24hrs), Av, Min:79, Max:95 Heart Rate Av.8 Min: 66 Max: 83 Weight: Wt Readings from Last 3 Encounters: 07/20/17 61.1 kg (134 lb 9.6 oz) Patient Vitals for the past 72 hrs: Weight 07/20/17 0535 61.1 kg (134 lb 9.6 oz) I/O: Intake/Output Summary (Last 24 hours) at 07/21/17 1501 Last data filed at 07/21/17 1256 Gross per 24 hour Intake 1240 ml Output 1550 ml Net -310 ml Exam: General: tearful, JVD: not visualized Chest: diminished in bases Cardiac: RRR, 2+ edema Abdomen: soft, distended Extremities: 2+ edema Reviewed Lab: Lab results (within last 13 months/) 07/21/17 0653 07/20/17 0545 07/19/17 0610 WBC 9.6 12.3* 14.2* HGB 8.0* 8.0* 8.0* HCT 24.0* 23.3* 23.0* PLT 182 177 164 Lab results (within last 13 months/rs) 07/18/17 1520 TFE 46.0 TIBC 339 FESAT 14* KHUSHBU 128 Lab results (within last 13 months/) 07/21/17 0653 07/20/17 0545 07/19/17 0610 07/18/17 0006 07/17/17 0952 07/16/17 2201 NA 138 140 137 < > 133* 135 138 K 3.6 3.7 3.6 < > 3.6 3.9 4.2 CL 96* 98 93* < > 93* 92* 95* TCO2 29 29 24 < > 24 24 24 BUN 73* 77* 81* < > 80* 83* 82* CR 3.28* 3.55* 3.79* < > 4.32* 4.38* 4.33* GLUC 95 88 100* < > -- -- 115* CA 8.0* 8.4* 8.3* < > -- -- 8.5* MG -- -- -- -- 2.04 2.23 2.21 < > = values in this interval not displayed. No results for input(s): [id number], PTH in the last 9480 hours. Reviewed Medications: Current Facility-Administered Medications Medication Dose Route Frequency [START ON 07/22/2017] NIFEDipine SUSTAINED release (aka PROCARDIA XL) tablet 60 mg 60 m g Oral DAILY NIFEDipine SUSTAINED release (aka PROCARDIA XL) tablet 30 mg 30 mg Oral ONE TIME carvedilol (aka COREG) tablet 25 mg 25 mg Oral Q12H calcium carbonate (aka TUMS) chewable tablet 2 Tab 2 Tab Oral PRN influenza quadrivalent (Preservative Free) 6703-0415 vaccine (FLUZONE 3YEARS UP) inject ion 60 mcg 0.5 mL Intramuscular ONE TIME VACCINE furosemide (aka LASIX) injection 20 mg 20 mg Intravenous DAILY ondansetron (PF) (aka ZOFRAN) injection 4 mg 4 mg Intravenous Q6H PRN lidocaine (aka XYLOCAINE) 2 % jelly 2 application 2 application Topical PRN simethicone (aka MYLICON) chewable tablet 80 mg 80 mg Oral Q6H PRN polyethylene glycol (aka MIRALAX) packet 17 g 17 g Oral DAILY dibucaine (aka NUPERCAINAL) 1 % ointment 1 application 1 application Topical QID PRN hydrocortisone (aka ANUSOL HC) 2.5 % rectal cream 1 application 1 application Rectal P RN diphth,pertus(acell),tetanus (aka BOOSTRIX) 2.5-8-5 Lf-mcg-Lf/0.5mL vaccine syringe 0.5 mL 0.5 mL Intramuscular Prior to Discharge measles,mumps and rubella (PF) vaccine (aka M-M-R II) 1,000-12,500 TCID50/0.5 mL inject ion 0.5 mL 0.5 mL Subcutaneous PRN rho D IMmune globulin (full dose) (aka RHOGAM) injection 300 mcg 300 mcg Intramuscular PRN oxyCODONE (Immediate release) (aka ROXICODONE) tablet 5-15 mg 5-15 mg Oral Q3H PRN Jennifer Melo MD 15:01; 07/21/2017 onversio n Transaction, Provider Unknown - 07/21/2017 6:27 AM PSTFormatting of this note might be di fferent from the original. Progress Notes by Princess Martina Jean RN at 07/21/17626 Author: Princess Martina Jean RN Service: (none) Author Type: Registered Nurse Filed: 07/21/17628 Date of Service: 07/21/17626 Status: Signed Explosive Technician: Princess Martina Jean RN (Registered Nurse) NSG Shift Summary Patient: Aurea Perez Alert and oriented. Anxious at times BP 150's/80's/ ND- 70's. Pain well managed with oxycodone. Nausea minimal this shift. No voiding issues Ambulating independently Will cont to monitor Princess Martina Jean RN, 07/21/2017 6:28 AM Yasir Stout RN - 07/20/2017 5:48 PM PSTFormatting of this note might be different from the origi nal. Progress Notes by Janeth Matos RN at 07/20/171747 Author: Janeth Matos RN Service: (none) Author Type: Registered Nurse Filed: 07/20/171753 Date of Service: 07/20/171747 Status: Signed Explosive Technician: Janeth Matos RN (Registered Nurse) NSG Shift Summary Patient: Aurea Perez Pt is A/Ox4. Anxious at times and emotional labile. Easily frustrated and crying at times. Pt c/o abd pain 02/14. Gave 10mg of Oxycodone with relieved. Nausea and emesis x1, but refuse d nausea med. Pt tolerated Renal diet without difficulty. Urine output with small blood ting ed. Pt is independent in the room. SBP is elevated to 160's this morning. After starting Nif edipine SR 30mg and increased Carvedilol and SBP went down to 155/80, 74 at 1600. Pt is asym ptomatic with HTN. Afebrile. Continue to monitor. . Janeth Matos RN, 07/20/2017 5:48 PM Alexi Evans MD - 07/20/2017 3:57 PM PSTFormatting of this note might be different from the [place]. Progress Notes by Nisha Licona MD at 07/20/17 0823 Author: Nisha Licona MD Service: (none) Author Type: Physician Filed: 07/20/17 8153 Date of Service: 07/20/171556 Status: Addendum Explosive Technician: Nisha Licona MD (Physician) Related Notes: Original Note by Nisha Licona MD (Physician) filed at 07/20/17 1613 [facility] Progress Note Name: Aurea KeitaAbelardo Perez PCP: No Doc, No Doc Location: [facility]: 4 Reason for Admission and Continued Stay Pt is a 37 yo woman with h/o meth use, HTN, prior h/o HELLP, prior h/o preeclampsia who was admitted to [facility] on 07/16 for termination of her at 21 weeks due to hypertensive crisis, CM, resp failure requiring intubation and AUNG. PMD: Pt is going to f/u with Dr. Flor, in [facility] Events 07/03: Pt admitted to [facility] in [place] and was found to have plts of 77, hct of 24 , vice president planning 2.1 (0.8 in 2017). She was intubated on 07/06 and transferred to [facility][1] with hypertensive crisis, anemia, thrombocytopenia, abnormal LFTs and AUNG, resp fa ilure, ETT. She was treated with prednisone, plasmapheresis and eculizumab for concerns for TTP/HUS, HELLP. Renal biopsy done 07/09 showing global glomerular sclerosis, extensive inter stitial fibrosis and thrombotic microantiopathy. Negative [id number], diagnosis of atypical H US TTP felt to be less likely so therapy for TTP was discontinued. Pt was transferred to for termination of that it was threatening her life. 07/16/2017 - date of admission to 07/17: Termination of 07/18: Transfer to medical floor, nephrology consult, M consult. Labetalol changed to co reg. 07/19: Hypotension, decreased coreg, d/c nifedipine 07/20: Hypertension, increase coreg, add nifedipine SR With the exception of the changes, the remainder of the A&P is unchanged as of 07/20/2017 Assessment & Plan Active medical problems AUNG Biopsy proven thrombotic microangiopathy treated with pheresis and ecluzimab now s/p termin ation of (no need for further pheresis and ecluzimab per nephrology) Likely underlying kidney disease from HTN given degree of fibrosis on biopsy Appreciate nephrology consult No need for immunosuppression at this time Improvement in her BP Enrobing Machine Corder: 4.3--4.2--3.7--3.5 Continue with lasix 20 mg IV daily Low sodium diet BP control Anemia Hct has been low, unclear if she received any transfusions at outside hospitals Hct: 21--25--21--21--23--23.3 Baseline hct in care everywhere 31-33 (01/2017) Transfuse for symptoms of if hct under approx 20 Iron studies done 07/18, no iron deficiency Hypertension Pt was treated with IV labetalol and po labetalol 600 mg po q 8 hours(07/17-07/18) and nifedi pine IR 20 mg po q 4 hours (07/17-07/19), started on coreg 07/18 Hypotension in cathode builder 07/19 with marked improvement in her BP later in day Decrease coreg to 12.5 mg po q 12 hours with hold parameters 07/19, increased up to 25 mg BI D on 07/20 D/C nifedipine IR 07/19, resumed briefly 07/20, d/c'd again 07/20 Start Nifedipine SR 30 mg daily on 07/20 Goal SBP under approx 160 Can give PRN nifedipine IR 10 mg if SBP over 170's (but would not reorder as scheduled) Volume overload Still with significant peripheral edema Echo 07/18: EF=52%, mild LVH, mod AI, mod MR, mod TR, mod elevated PAP 46 Continue with lasix 20 mg IV daily Low sodium diet Weight: 63.8--61.1 Termination of 07/17 [facility] has been involved in her care MFM spoke with patient about contraception, pt signed tubal papers, needs to wait at least 30 days Pt should get depoprovera prior to d/c home-ordered by MFM Pt should f/u with OB in [place] for tubal and follow-up Will let pt know that she may have increased vaginal bleeding 10-14 days post-termination ( 07/27-07/31) lasting approx 2 days, if increased significantly she should be seen by OB in [facility]. Per patient, family is now aware of her (prior notes stated that they were not aw are) H/O meth use Pt is committed to staying off meth Discharge plan: Plan to DC to home 3-4 days Chronic/Resolved medical problems Body mass index is 21.73 kg/m. Quality/Required Documentation [place]: Not present Central Line: Central line is no longer indicated and will be discontinued pt had right IJ in place that was discontinued 07/19, she has a right PICC line still in place Telemetry: Patient is not currently on telemetry Antibiotics: None ordered DVT prophylaxis: SCDs and/or TEDs Restraints: None Subjective and Events Overnight Pt reports that she "feels good", "feels awesome", no SOB, no CP, would really like to go h ome. Objective Vital Signs: Temp: 36.3 C (97.4 F) Temp (24hrs), Av.8 C (98.2 F), Min:36.2 C (97.2 F), M ax:37.6 C (99.7 F) BP: 155/80 Heart Rate: (not recorded) Resp: 16 SpO2: 100 % Oxygen Therapy?: No-Room Air O2 Liter Flow (1L or More): (not recorded) Exam General: Awake and alert. No distress, talkative,smiling, lying in bed HEENT: Normocephalic, atraumatic, dry mucous membranes, erythema at right neck where dressi ng was removed from central line, small opening at site of central line, yellowish discharge Eyes: Sclera anicteric noninjected Skin: No rashes. No jaundice. pale Heart: RRR. No murmurs. Lungs: Decreased breath sounds at bases, no wheezing, no rhonchi Abdomen: BS normal. Soft. Mild distended. Mild tender lower abd. Extremities: No cyanosis. 2+ edema-improved, PICC line right arm Neuro: speech fluent, moving extremities without difficulty Labs Reviewed and remarkable for: Lab results (within last 13 months/9480hours) 07/20/17 0545 07/19/17 0610 07/18/17 0006 WBC 12.3* 14.2* < > 10.4 HCT 23.3* 23.0* < > 21.6* MCV 89 88 < > 88 PLT 177 164 < > 146* NA 140 137 < > 133* K 3.7 3.6 < > 3.6 CL 98 93* < > 93* TCO2 29 24 < > 24 BUN 77* 81* < > 80* CR 3.55* 3.79* < > 4.32* GLUC 88 100* < > -- CA 8.4* 8.3* < > -- MG -- -- -- 2.04 < > = values in this interval not displayed. Lab results (within last 13 months/9480hours) 07/19/17 0610 ALT 80* AST 47* ALKP 68 ALB 3.2* INR 0.9 PTT 24.5 Microbiology Reviewed and remarkable for: Nasal 07/16: No MRSA Radiology Reviewed and remarkable for: US pelvic 07/18 1. Mild intraabdominal ascites located in the right abdomen and pelvis, including the area of right lower quadrant abdominal bulge. No masses or hemorrhage. 2. Normal appearing post uterus. Nisha Licona MD Reach via [employer] 7AM to 7PM Call char filter operator helper for cross-cover 7PM to 7AM Time documentation not applicable Jennifer Barton MD - 07/20/2017 1:13 PM PST Progress Notes by Jennifer Melo MD at 07/20/17 1313 Author: Jennifer Melo MD Service: (none) Author Type: Physician Filed: 07/20/17 1316 Date of Service: 07/20/17 131 Status: Signed Explosive Technician: Jennifer Melo MD (Physician) [facility] Progress Note Daily update: -creatinine continues to slowly improved at 3.6 -significant incrase in blood pressure throughout yesterday -start nifedipine 30mg daily -carvedilol increased 25mg BID -diuresing well Coverage: Please see treatment team for daily coverage 7am-5pm, and the on-call schedule fo r night coverage issues Summary: ID: Aurea Perez; 37 y.o. female with recent complicated by biopsy prove n thrombotic microangiopathy who was transferred for termination of . Admitted on : 07/16/2017 Primary Blister Packaging Machine Operator: None, initial consult, Dr. Pat here Reason for Admission: thrombotic microangioplathy/AUNG and termination of Summary of Current Hospitalization: Assessment/ Plan: -AUNG: biopsy proven thrombotic microangiopathy reportedly treated with pheresis and ecluzim ab now s/p termination of with significant improvement in her blood pressures and now with some additional improvement in her creatinine. ?whether TMA was secondary to hyper tension or preeclampsia? -no additional indication for pheresis -would hold on ecluzimab at this time -May ultimately benefit from atypical HUS work up with [place] complement panel but will hold off right now. Volume: ++ edema on exam, -lasix 20mg IV -low sodium diet -anticipate diuresis over the next 1-2 weeks Hypertension:now hypertensive again -carvedilol 25mg BID, increased 07/20 -lasix 20mg IV daily -start nifedipine 30mg daily, started 07/20 With the exception of the modified portions of the assessment and plan - the assessment and plan is unchanged as of 07/20/2017 VS: BP: (!) 183/96, Heart Rate: 80, Resp: 18 Systolic (24hrs), Av , Min:138 , Max:209 Diastolic (24hrs), Av, Min:70, Max:99 Heart Rate Av.6 Min: 66 Max: 83 Weight: Wt Readings from Last 3 Encounters: 07/20/17 61.1 kg (134 lb 9.6 oz) Patient Vitals for the past 72 hrs: Weight 07/20/17 0535 61.1 kg (134 lb 9.6 oz) I/O: Intake/Output Summary (Last 24 hours) at 07/20/17 1313 Last data filed at 07/20/17 1121 Gross per 24 hour Intake 1400 ml Output 3190 ml Net -1790 ml Exam: General: older than stated age, talkative, JVD: elevated Chest: diminished in bases Cardiac: RRR, 2+ edema Abdomen: soft, distended Extremities: 2+ edema Reviewed Lab: Lab results (within last 13 months/9480hours) 07/20/17 0545 07/19/17 0610 07/18/17 0545 WBC 12.3* 14.2* 10.2 HGB 8.0* 8.0* 7.2* HCT 23.3* 23.0* 21.5* PLT 177 164 154 Lab results (within last 13 months/80hours) 07/18/17 1520 TFE 46.0 TIBC 339 FESAT 14* KHUSHBU 128 Lab results (within last 13 months/9479hours) 07/20/17 0545 07/19/17 0610 07/18/17 0545 07/18/17 0006 07/17/17 0952 07/16/17 2201 NA 140 137 133* 133* 135 138 K 3.7 3.6 3.6 3.6 3.9 4.2 CL 98 93* 92* 93* 92* 95* TCO2 29 24 24 24 24 24 BUN 77* 81* 82* 80* 83* 82* CR 3.55* 3.79* 4.21* 4.32* 4.38* 4.33* GLUC 88 100* 90 -- -- 115* CA 8.4* 8.3* 8.0* -- -- 8.5* MG -- -- -- 2.04 2.23 2.21 No results for input(s): [id number], PTH in the last 9480 hours. Reviewed Medications: Current Facility-Administered Medications Medication Dose Route Frequency carvedilol (aka COREG) tablet 25 mg 25 mg Oral Q12H NIFEDipine SUSTAINED release (aka PROCARDIA XL) tablet 30 mg 30 mg Oral DAILY calcium carbonate (aka TUMS) chewable tablet 2 Tab 2 Tab Oral PRN influenza quadrivalent (Preservative Free) 2247-4413 vaccine (FLUZONE 3YEARS UP) inject ion 60 mcg 0.5 mL Intramuscular ONE TIME VACCINE furosemide (aka LASIX) injection 20 mg 20 mg Intravenous DAILY ondansetron (PF) (aka ZOFRAN) injection 4 mg 4 mg Intravenous Q6H PRN lidocaine (aka XYLOCAINE) 2 % jelly 2 application 2 application Topical PRN simethicone (aka MYLICON) chewable tablet 80 mg 80 mg Oral Q6H PRN polyethylene glycol (aka MIRALAX) packet 17 g 17 g Oral DAILY dibucaine (aka NUPERCAINAL) 1 % ointment 1 application 1 application Topical QID PRN hydrocortisone (aka ANUSOL HC) 2.5 % rectal cream 1 application 1 application Rectal P RN diphth,pertus(acell),tetanus (aka BOOSTRIX) 2.5-8-5 Lf-mcg-Lf/0.5mL vaccine syringe 0.5 mL 0.5 mL Intramuscular Prior to Discharge measles,mumps and rubella (PF) vaccine (aka M-M-R II) 1,000-12,500 TCID50/0.5 mL inject ion 0.5 mL 0.5 mL Subcutaneous PRN rho D IMmune globulin (full dose) (aka RHOGAM) injection 300 mcg 300 mcg Intramuscular PRN oxyCODONE (Immediate release) (aka ROXICODONE) tablet 5-15 mg 5-15 mg Oral Q3H PRN Jennifer Melo MD 13:13; 07/20/2017 Corrie Sung RN - 07/20/2017 6:29 AM PSTFormatting of this note might be different from the [place]. Progress Notes by Corrie Hawkins RN at 07/20/17628 Author: Corrie Hawkins RN Service: (none) Author Type: Registered Nurse Filed: 07/20/17629 Date of Service: 07/20/17628 Status: Signed Explosive Technician: Corrie Hawkins RN (Registered Nurse) NSG Shift Summary Patient: Aurea Perez A&Ox4; pt anxious, restless, and often crying out HTN episode of 209/97; managed with new order of nifedipine q8h; latest BP 185/94 Tmax of 99.4F; IS encouraged Pt reporting chills Heartburn managed with TUMS Nausea managed with Zofran; often dry heaving Pain managed with Oxycodone 10mg Tolerating renal diet Up independently, ambulates in hallway x1 AUO; small amt of bloody vaginal drainage Bt+; passing flatus Pressure dressing on IJ removal site Right upper arm PICC; saline locked Will continue to monitor and support Corrie Hawkins RN, 07/20/2017 6:29 AM Wendy Littlejohn MD - 07/19/2017 8:39 PM PSTFormatting of this note might be different from the orig inal. Progress Notes by Raghu Georges MD at 07/19/172038 Author: Raghu Georges MD Service: (none) Author Type: Physician Filed: 07/20/17 0408 Date of Service: 07/19/172038 Status: Addendum Explosive Technician: Raghu Georges MD (Physician) Related Notes: Original Note by Raghu Georges MD (Physician) filed at 07/19/17 204 1 [facility] Hospitalist Group Cross Coverage Note: Called by RN regarding patient now htn 190s/80s, asymptomatic. Reviewed day team notes reg arding hypotension overnight last night. Nifedipine IR held all day today, only receiving c oreg as anti-htn med. For now will restart nifedipine IR at half the dose (10mg) and at q8h . Can titrate as needed. It appears that the day team is considering transition to xL but will defer to them starting that tomorrow. Addendum: -BP responded well to 10mg nifedipine with SBP 130s, now back up to 180s. Due for another 10mg at 6am. Asymptomatic. Have asked the RN to recheck BP at 430. If still significantly hypertensive will likely increase frequency of nifedipine from q8h to q4h. Raghu Georges MD 20:39; 07/19/2017 onversio n Transaction, Provider Unknown - 07/19/2017 6:38 PM PSTFormatting of this note might be di fferent from the original. Progress Notes by Xiomy Lew, RN at 07/19/171837 Author: Xiomy Lew RN Service: (none) Author Type: Registered Nurse Filed: 07/19/171838 Date of Service: 07/19/171837 Status: Signed Explosive Technician: Xiomy Lew RN (Registered Nurse) NSG Shift Summary Patient: Aurea Perez : VSS, mild HTN, afeb Pt emotionally labile, anxious/restless/ crying one moment, then laughing/ states hopefu l and happiness the next Pain managed w/ oxycodone PRN New cardiac meds ordered to start this evening Bilateral LE edema, hypersensitivity in feet RA, LS clear Renal diet, pt requesting General, MD states want to continue to see creatinine down adolfo nd and will hold off on diet change for now Mild nauseated all of shift, managed w/ Zofran; Heartburn managed w/ Mylanta and Tums +BT, +flatus; pt report lots of gas Voiding adequately Independent FWW, ambulated mult times in hallway Sang hose, and SCDs while in bed R PICC 3L, +BR, SL Plan for D/C best case Wednesday/ per MD Will continue to monitor and support pt. Xiomy Lew RN, 07/19/2017 4:57 PM Jennifer Dolan MD - 07/19/2017 1:51 PM PSTFormatting of this note might be different from e original. Progress Notes by Jennifer Melo MD at 07/19/17 1351 Author: Jennifer Melo MD Service: (none) Author Type: Physician Filed: 07/19/17 6740 Date of Service: 07/19/17 135 Status: Signed Explosive Technician: Jennifer Melo MD (Physician) [facility] Progress Note Daily update: -Creatinine starting to improve -blood pressures significantly improved, short acting nifedipine discontinued -overall she is concerned about the swelling in her legs and is focused on how much water she is allowed to drink Coverage: Please see treatment team for daily coverage 7am-5pm, and the on-call schedule fo r night coverage issues Summary: ID: Aurea Perez; 37 y.o. female with recent complicated by biopsy prove n thrombotic microangiopathy who was transferred for termination of . Admitted on : 07/16/2017 Primary Blister Packaging Machine Operator: None, initial consult, Dr. Pat here Reason for Admission: thrombotic microangioplathy/AUNG and termination of Summary of Current Hospitalization: Assessment/ Plan: -AUNG: biopsy proven thrombotic microangiopathy reportedly treated with pheresis and ecluzim ab now s/p termination of with significant improvement in her blood pressures and now with some additional improvement in her creatinine. ?whether TMA was secondary to hyper tension or preeclampsia? -no additional indication for pheresis -would hold on ecluzimab at this time -May ultimately benefit from atypical HUS work up with [place] complement panel but will hold off right now. Volume: ++ edema on exam, -lasix 20mg IV -low sodium diet -anticipate diuresis over the next 1-2 weeks Hypertension: hypotension overnight, nifedipine held -carvedilol 12.5mg BID -lasix 20mg IV daily -hold immediate release nifedipine, if BPs over 160s, would restart at 10mg. Prefer shorte r acting meds as unclear how BPs will respond now that sh eis no longer With the exception of the modified portions of the assessment and plan - the assessment and plan is unchanged as of 07/19/2017 VS: BP: 154/74, Heart Rate: 80, Resp: 18 Systolic (24hrs), Av , Min:85 , Max:180 Diastolic (24hrs), Av, Min:45, Max:98 Heart Rate Av.6 Min: 66 Max: 83 Weight: Wt Readings from Last 3 Encounters: 07/16/17 63.8 kg (140 lb 10.5 oz) Patient Vitals for the past 72 hrs: Weight 07/16/17 2046 63.8 kg (140 lb 10.5 oz) I/O: Intake/Output Summary (Last 24 hours) at 07/19/17 1351 Last data filed at 07/19/17 0842 Gross per 24 hour Intake 1260 ml Output 2300 ml Net -1040 ml Exam: General: older than stated age, talkative, mildly tangential JVD: elevated Chest: diminished in bases Cardiac: RRR, 2+ edema Abdomen: soft, distended Extremities: 2+ edema Reviewed Lab: Lab results (within last 13 months/9479hours) 07/19/17 0610 07/18/17 0545 07/18/17 0006 WBC 14.2* 10.2 10.4 HGB 8.0* 7.2* 7.2* HCT 23.0* 21.5* 21.6* PLT 164 154 146* Lab results (within last 13 months/80hours) 07/18/17 1520 TFE 46.0 TIBC 339 FESAT 14* KHUSHBU 128 Lab results (within last 13 months/80hours) 07/19/17 0610 07/18/17 0545 07/18/17 0006 07/17/17 0952 07/16/17 2201 NA 137 133* 133* 135 138 K 3.6 3.6 3.6 3.9 4.2 CL 93* 92* 93* 92* 95* TCO2 24 24 24 24 24 BUN 81* 82* 80* 83* 82* CR 3.79* 4.21* 4.32* 4.38* 4.33* GLUC 100* 90 -- -- 115* CA 8.3* 8.0* -- -- 8.5* MG -- -- 2.04 2.23 2.21 No results for input(s): [id number], PTH in the last 9480 hours. Reviewed Medications: Current Facility-Administered Medications Medication Dose Route Frequency calcium carbonate (aka TUMS) chewable tablet 2 Tab 2 Tab Oral PRN alum-mag hydroxide-SIMeth 200-200-20 mg/5 mL suspension 30 mL 30 mL Oral Q6H PRN carvedilol (aka COREG) tablet 12.5 mg 12.5 mg Oral Q12H influenza quadrivalent (Preservative Free) 6075-7376 vaccine (FLUZONE 3YEARS UP) inject ion 60 mcg 0.5 mL Intramuscular ONE TIME VACCINE furosemide (aka LASIX) injection 20 mg 20 mg Intravenous DAILY ondansetron (PF) (aka ZOFRAN) injection 4 mg 4 mg Intravenous Q6H PRN lidocaine (aka XYLOCAINE) 2 % jelly 2 application 2 application Topical PRN simethicone (aka MYLICON) chewable tablet 80 mg 80 mg Oral Q6H PRN polyethylene glycol (aka MIRALAX) packet 17 g 17 g Oral DAILY dibucaine (aka NUPERCAINAL) 1 % ointment 1 application 1 application Topical QID PRN hydrocortisone (aka ANUSOL HC) 2.5 % rectal cream 1 application 1 application Rectal P RN diphth,pertus(acell),tetanus (aka BOOSTRIX) 2.5-8-5 Lf-mcg-Lf/0.5mL vaccine syringe 0.5 mL 0.5 mL Intramuscular Prior to Discharge measles,mumps and rubella (PF) vaccine (aka M-M-R II) 1,000-12,500 TCID50/0.5 mL inject ion 0.5 mL 0.5 mL Subcutaneous PRN rho D IMmune globulin (full dose) (aka RHOGAM) injection 300 mcg 300 mcg Intramuscular PRN oxyCODONE (Immediate release) (aka ROXICODONE) tablet 5-15 mg 5-15 mg Oral Q3H PRN Jennifer Melo MD 13:51; 07/19/2017 ennifer Hoyos LICSW - 07/19/2017 12:08 PM PSTFormatting of this note might be different from t he original. Progress Notes by Jennifer Bearden MSW ([place]) at 07/19/17 1205 Author: Jennifer Bearden MSW ([place]) Service: (none) Author Type: Sinter Feeder Filed: 07/19/17 122 Date of Service: 07/19/17 120 Status: Signed Explosive Technician: Jennifer Bearden MSW ([place]) (Sinter Feeder) Case Management Progress Note 07/19/2017 12:09 Patient Aurea Perez is a 37 y.o. female transferred to [facility] due to medical complications and recommendation for therapeutic termination of . OB SW following for midterm demise. Anticipated D/C Plan: Pt reports she will likely stay with her mother in [place], [place] onc e discharged from the hospital Current Clinical Needs: Hypotension over night, medication adjustments, demise counseling/ coordination Discussion: FOOD AND BEVERAGE INTERN met with patient to follow up for support and resources regarding her preg duong loss. Pt reports speaking with her mother and states she disclosed the loss last night. She was tearful stating the "the other republican in this is Ney Hassan and I've been wi th him for the past 6 years". Pt is dealing with many emotions currently. She states she fee ls guilty that she became and states Ney "is not being supportive, he told me I marisol uldn't be calling him unless I'm dying". Pt feels supported by her mother and extended family. She is not ready to make decisions re garding burial vs cremation at this time. She would like to speak with her mother today or t omorrow about options and declines wanting assistance from FOOD AND BEVERAGE INTERN at this time. She inquired into whether FOOD AND BEVERAGE INTERN could provide her with shoes or an IPad (she used one while o n antepartum). FOOD AND BEVERAGE INTERN informed pt that no shoes are available and the IPad is not able to be re nted. Pt verbalized understanding and did not identify any additional needs, questions or co ncerns. Case management team continuing to follow patient for discharge planning and to assist with patient care as needed. Case Management Interventions: Case Mgmt Team Interventions: Demise counseling and coordin ation;Care coordination;Consult with healthcare team;Crisis counseling/emotional support/gri ef and loss support [place] of Choice: N/A Medicare Important Message given: Medicare IM given: N/A Jennifer (Rico) DAHIANA Bearden Alexi Evans MD - 07/19/2017 10:09 AM PSTFormatting of this note might be different from the ham[place] larry. Progress Notes by Nisha Licona MD at 07/19/17 1009 Author: Nisha Licona MD Service: (none) Author Type: Physician Filed: 07/19/17 1011 Date of Service: 07/19/17 1009 Status: Signed Explosive Technician: Nisha Licona MD (Physician) [facility] ([facility]) brief progress note Case discussed with RN. Pt with significant hypotension overnight. Improvement in her SBP now. Decreased dose of coreg to 12.5 mg BID. D/C nifedipine, change to XL. Received anot her call from RN that pt is reporting "right sided tingling (arm/chest)" since hypotensive e pisode. Pt is at risk for CVA given her significant decrease in BP. Order placed for brain MRI to r/o CVA. Nisha Licona MD 10:11; 07/19/2017 Nisha Calvo M D - 07/19/2017 6:51 AM PST Progress Notes by Nisha Licona MD at 07/19/1751 Author: Nisha Licona MD Service: (none) Author Type: Physician Filed: 07/19/17 5799 Date of Service: 07/19/1751 Status: Signed Explosive Technician: Nisha Licona MD (Physician) [facility] Medicine Progress Note Name: Aurea Perez PCP: No Doc, No Doc Location: [address] Day #: 2 Reason for Admission and Continued Stay Pt is a 37 yo woman with h/o meth use, HTN, prior h/o HELLP, prior h/o preeclampsia who was admitted to [facility] on 07/16 for termination of her at 21 weeks due to hypertensive crisis, CM, resp failure requiring intubation and AUNG. Hospital Events 07/03: Pt admitted to [facility] in [place] and was found to have plts of 77, hct of 24 , vice president planning 2.1 (0.8 in 2017). She was intubated on 07/06 and transferred to [facility][1] with hypertensive crisis, anemia, thrombocytopenia, abnormal LFTs and AUNG, resp fa ilure, ETT. She was treated with prednisone, plasmapheresis and eculizumab for concerns for TTP/HUS, HELLP. Renal biopsy done 07/09 showing global glomerular sclerosis, extensive inter stitial fibrosis and thrombotic microantiopathy. Negative [id number], diagnosis of atypical H US TTP felt to be less likely so therapy for TTP was discontinued. Pt was transferred to for termination of that it was threatening her life. 07/16/2017 - date of admission to 07/17: Termination of 07/18: Transfer to medical floor, nephrology consult, [facility] consult. Labetalol changed to co reg. 07/19: Hypotension, decreased coreg, d/c nifedipine With the exception of the changes, the remainder of the A&P is unchanged as of 07/19/2017 Assessment & Plan Active medical problems AUNG Biopsy proven thrombotic microangiopathy treated with pheresis and ecluzimab now s/p termin ation of Likely underlying kidney disease from HTN given degree of fibrosis on biopsy Appreciate nephrology consult No need for immunosuppression at this time Improvement in her BP Enrobing Machine Corder: 4.3--4.2--3.7 Anemia Hct has been low, unclear if she received any transfusions at outside hospitals Hct: 21--25--21--21--23 Baseline hct in care everywhere 31-33 (01/2017) Transfuse for symptoms of if hct under approx 20 Iron studies done 07/18, no iron deficiency Hypertension Pt was treated with IV labetalol and po labetalol 600 mg po q 8 hours(07/17-07/18) and nifedi pine IR 20 mg po q 4 hours (07/17-07/19), started on coreg 07/18 Hypotension in cathode builder 07/19 Marked improvement in her BP 07/19 Decrease coreg to 12.5 mg po q 12 hours with hold parameters D/C nifedipine IR If SBP over approx 160 can give additional meds PRN Volume overload Still with significant peripheral edema Echo 07/18: EF=52%, mild LVH, mod AI, mod MR, mod TR, mod elevated PAP 46 Continue with lasix 20 mg IV daily Low sodium diet Termination of 07/17 [facility] has been involved in her care MFM spoke with patient about contraception, pt signed tubal papers, needs to wait at least 30 days Pt should get depoprovera prior to d/c home-will need to ask MFM to order Per patient, family is now aware of her (prior notes stated that they were not aw are) H/O meth use Pt is committed to staying off meth Discharge plan: Plan to DC to home 3-4 days Chronic/Resolved medical problems Body mass index is 22.7 kg/m. Quality/Required Documentation [place]: Not present Central Line: Central line is no longer indicated and will be discontinued pt had right IJ in place that was discontinued 07/19, she has a right PICC line still in place Telemetry: Patient is not currently on telemetry Antibiotics: None ordered DVT prophylaxis: SCDs and/or TEDs Restraints: None Subjective and Events Overnight Pt reports "I feel great", she is happy that she has the right IJ out, no SOB, no CP, no si g abd pain (some abd gas), minimal vag bleeding. Had brief episode of "flash of air bubble" feeling on her right side, lasted 1 second, associated with hypotension, no neuro sxs now. Objective Vital Signs: Temp: 36.7 C (98 F) Temp (24hrs), Av.6 C (97.8 F), Min:36.2 C (97.1 F), Max :36.7 C (98 F) BP: 103/62 Heart Rate: 80 Resp: 18 SpO2: 94 % Oxygen Therapy?: No-Room Air O2 Liter Flow ( 1L or More): (not recorded) Exam General: Awake and alert. No distress. Talkative, no distress. HEENT: Normocephalic, atraumatic, dry mucous membranes Eyes: Sclera anicteric noninjected Skin: No rashes. No jaundice. pale Heart: RRR. No murmurs. Lungs: Decreased breath sounds at bases, no wheezing, no rhonchi Abdomen: BS normal. Soft. Mild distended. Mild tender lower abd. Extremities: No cyanosis. 2+ edema Neuro: speech fluent, able to move arms/legs without difficulty, sensation intact, face sym metric Labs Reviewed and remarkable for: Lab results (within last 13 months/) 07/19/17 0610 07/18/17 0545 07/18/17 0006 WBC 14.2* 10.2 10.4 HCT 23.0* 21.5* 21.6* MCV 88 89 88 PLT 164 154 146* NA 137 133* 133* K 3.6 3.6 3.6 CL 93* 92* 93* TCO2 24 24 24 BUN 81* 82* 80* CR 3.79* 4.21* 4.32* GLUC 100* 90 -- CA 8.3* 8.0* -- MG -- -- 2.04 Lab results (within last 13 months/) 07/19/17 0610 ALT 80* AST 47* ALKP 68 ALB 3.2* INR 0.9 PTT 24.5 Microbiology Reviewed and remarkable for: Nasal 07/16: No MRSA Radiology Reviewed and remarkable for: US pelvic 07/18 1. Mild intraabdominal ascites located in the right abdomen and pelvis, including the area of right lower quadrant abdominal bulge. No masses or hemorrhage. 2. Normal appearing post uterus. Nisha Licona MD Reach via [employer] 7AM to 7PM Call char filter operator helper for cross-cover 7PM to 7AM Time documentation not applicable elssunshine, Rhea Leslie N - 07/19/2017 6:42 AM PST Progress Notes by Corrie Hawkins RN at 07/19/17641 Author: Corrie Hawkins RN Service: (none) Author Type: Registered Nurse Filed: 07/19/17643 Date of Service: 07/19/17641 Status: Signed Explosive Technician: Corrie Hawkins RN (Registered Nurse) NSG Shift Summary Patient: Aurea Perez [phone] VSS; elevated BP treated with nifedipine q4h Episode of low BP, dizziness, and emesis x1 A&Ox4; restless and anxious Pain managed with PO Oxycodone 10mg Heartburn managed with TUMS Tolerating small amts of renal diet SBA with AUO Bt+; passing gas Triple lumen IJ; saline and heparin locked Right upper arm PICC; saline locked Will continue to monitor and support Corrie Hawkins RN, 07/19/2017 6:42 AM Ever Lagunas MD - 07/19/2017 5:46 AM PSTFormatting of this note might be different from the or iginal. Progress Notes by Ever Moon MD at 07/19/17545 Author: Ever Moon MD Service: (none) Author Type: Physician Filed: 07/19/17546 Date of Service: 07/19/17545 Status: Signed Explosive Technician: Ever Moon MD (Physician) [facility] Cross-cover Note: Time: 05:46 Called with hypotension. sbp in 80s. Hr 70s. On nifedipine and coreg. Preeclampsia noted. S he is being diuresed and has peripheral edema. Reduce coreg 25 mg tid to 12.5 mg tid. Rhea Bishop RN - 07/18/2017 10:42 PM PSTFormatting of this note might be different from the origi nal. Progress Notes by Mirna Carl RN at 07/18/17 9772 Author: Mirna Carl RN Service: (none) Author Type: Registered Nurse Filed: 07/18/172241 Date of Service: 07/18/172241 Status: Signed Explosive Technician: Mirna Carl RN (Registered Nurse) Afebrile A/Ox4 abdominal cramps managed with oxycodone taking po well up to bathroom and voiding adequate Lungs clear No other events noted Shruthi Forrester RN - 07/18/2017 7:34 PM PSTFormatting of this note might be different from the o riginal. Progress Notes by Shruthi Argueta RN at 07/18/171933 Author: Shruthi Argueta RN Service: (none) Author Type: Registered Nurse Filed: 07/18/171938 Date of Service: 07/18/171933 Status: Signed Explosive Technician: Shruthi Argueta RN (Registered Nurse) NSG Progress Note Brief Patient: Aurea Perez Patient is cooperative, labile - has been talking on the phone with mother and daughter. R eports abdominal pain, oxycodone given with relief. Passing gas, had two formed bowel movem ents. Voiding qs after Lasix. Tolerating a good amount of solid meal. Ambulated the hallw ay with SBA once, felt dizzy and was assisted back to bed safely. IJ and PICC lines intact. Labs sent. SBP= 103-180 range [facility]. Coreg and nifedipine given as or dered. Will continue to monitor. Shruthi Argueta RN, 07/18/2017 7:34 PM hristoViry nunez, [facility] - 07/18/2017 4:38 PM PSTFormatting of this note might be different from t bennie original. Progress Notes by Viry Funes MSW at 07/18/178 Author: Viry Funes MSW Service: (none) Author Type: Sinter Feeder Filed: 07/18/17 1716 Date of Service: 07/18/178 Status: Addendum Explosive Technician: Viry Funes MSW (Sinter Feeder) Related Notes: Original Note by Viry Funes MSW (Sinter Feeder) filed at 8 2099 Addendum: SW to follow up for home choice. DAHIANA Fine at 17:16 on 07/18/2017 Case Management - Social Work Assessment Psychosocial Assessment Summary 16:38; 07/18/2017 Patient Aurea Perez is a 37 y.o. female admitted for VTOP due to increased medical need. OB SW following for midterm demise. Presenting Problem and Discussion: FOOD AND BEVERAGE INTERN met with patient multiple times throughout her stay. Patient appeared alert and engaged during this assessment and was able to converse with this automobile and property underwriter on a variety of subjects. Patient is a and is at [facility] for VTOP given complicated medical needs due to . OB SW involved due to midterm demise. FOOD AND BEVERAGE INTERN introduced self, role and explained reason for visit. Patient remained tangential during this conversation however was able to cover a variety of topics. Patient stated she received a brain injury 4 years ago w hich could relate to some of her process concerns and inability remember some things. She stated she is supported by her family who all live in [place]. Patient then stated that she lives in [place] by herself, however in a later statement discussed how all her children live next door to her and are able to see her often. She appears to have a lot of family [place], however she stated several times that they do not know that she was and had a baby. She does not want them to know of the baby at this time. She talked about how her ch ildren are mostly grown and live with family members, but are "doing wonderfully." Patient's children are 18, 17, 14, 6, and 4 years old. Patient's youngest was born at 25 weeks. She d iscussed how she "adopted him out" to her mother since she was unable to care for him due to her brain injury. Patient's 7 year ago, patient stated it was due to a relapse. She is one of 6 siblings and has support in most of her siblings. One of her siblin gs she believes is stealing money from her 's benefits. Her mother and siste r have custody of her children. Patient reported that she is not allowed to work since her b rain injury, and still does not qualify for benefits due to having too many assists. Patient discussed bring sober for the last 17 years with her last relapse about a "few lalo hs ago." Patient appeared noncommittal about this statement and was prompted a few times to discuss her recently illicit use. Patient stated her "use" was what brought "this on," indic ating the need for her current medical situation. Patient FOOD AND BEVERAGE INTERN discussed demise of her baby girl. Patient was able to discuss this situation with FOOD AND BEVERAGE INTERN and appeared to understanding that she would need to choose a home due to the gestat ion, 21w5d. She stated she has buried a lot of people in her family and specifically her sis ter buried 2 children so "maybe that would work." Patient was encouraged to think about her decision. SW would continue to follow in the next few days to discuss any additional needs s he has. She indicated understanding and that she would have a decision tomorrow likely. Social Work Assessment: Patient's through process was very tangential however was able to provide discussion and th ought to a variety of topics. Patient appears aware of the events of her hospital stay and t hus far appears to be grieving appropriately. She stated she was in denial about the pregnan cy and appears at this moment to be working through how to appropriately tell her family. Kranthi espinoza does not have children in her custody and stated that she was CPS involved through [place]. It is unclear if she has a current open case, this information is thus far not applicab le to this admit. Interventions: Case Mgmt Team Interventions: Care coordination;Consult with healthcare team;Crisis certified personal finance counselor ing/emotional support/grief and loss support;Provide resources;Financial/Insurance;Psychosoc ial assessment;Substance abuse assessment Education/Information Provided: FOOD AND BEVERAGE INTERN introduced self, role and explained reason for visit. FOOD AND BEVERAGE INTERN provided grief and loss material including planning after the loss of a child. Plan (including discharge plan): Home with support from family once stable. Patient was attempting to contact family through [employer] since her phone needed to be charged. Extended Psychosocial Assessment Support Systems/Living Situation Address and Phone: Correct on facesheet per patient/entry level marketing representative Where did you sleep the night before you were admitted? [facility], higher level of care needed. Support Network: Patient is supported by her mother, sister, and various other family members. Social History Relationship Status: Patient has a SO, not clear on actual relationship status. Cultural/Ethnic/Rastafarian Background: Patient does not identify any hoahaoism or cultural beliefs or practices that would impact her health care or that of her baby/child. Communication: Primary language: [place] Citizen Fluent in reading? Yes Fluent in writing? Yes Education: Not Assessed Employment: Patient stated she is not allowed to work. 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 Service: N/A Sexually Active:: Patient has just had a baby. IOL, TOP due to increased medical needs. Self-care: Mobility prior to admit: Independent Medication administration BOX TOE STITCHER: Independent Transportation used prior to admit: Family/friend DME and/or supplies at residence BOX TOE STITCHER: None Recreation/leisure: Not Assessed. 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 Glomerulosclerosis, moderate interstial f ibrosis and tubular atrophy FOREARM FRACTURE SURGERY 2006 PCP: Per chart review No Doc, No Doc Psychiatric/Mental Health No currently Assessed, patient provided with grief and loss materials. Substance Abuse: Patient stated she has been sober from methamphetamines use for 17 years and recently relap sed. Patient stated she "used" a few months ago, which is what brought on her current medica l situation. Patient was unclear on the exact details of her relapse. Legal: Current Legal Issues: yes - Patient is currently or historically involved with CPS in [place]. Advance Directive Information Advance directive?: None Advance Directive Offered: AD Booklet given Financial/Insurance: Principle Payors confirmed with patient as: Payor: / Patient has [place] Medicaid, [facility]. Provider One Number (for patients with Medicaid): Patient does not have her medicaid card or know the number. Provided a phone number for patsy bailey ([phone]) however this number is [facility]. 's Benefits: N/A Additional Assessments: None Patient is being followed by Case Management Provider (Name, Title, Unit, [place]): DAHIANA Fine, [facility] Shruthi Forrester RN - 07/18/2017 2:14 PM PSTFormatting of this note might be different from the o riginal. Progress Notes by Shruthi Argueta RN at 07/18/17 1414 Author: Shruthi Argueta RN Service: (none) Author Type: Registered Nurse Filed: 07/18/17 1414 Date of Service: 07/18/17 141 Status: Signed Explosive Technician: Shruthi Argueta RN (Registered Nurse) Hypertensive, given Coreg and nifedipine. MD notified. Will continue to monitor. Angeli Terry RN - 07/18/2017 11:41 AM PSTFormatting of this note might be different fro m the original. Progress Notes by Angeli Prather RN at 07/18/17 1141 Author: Angeli Prather RN Service: (none) Author Type: Registered Nurse Filed: 07/18/17 1302 Date of Service: 07/18/17 1141 Status: Addendum Explosive Technician: Angeli Prather RN (Registered Nurse) Related Notes: Original Note by Angeli Prather RN (Registered Nurse) filed at 07/18/17 1144 Care of Pt transferred to the hospitalist Dr. Kenny Lopez. Order for Pt to be transferred to a medical floor. Coordinated with [facility] charge nurse, plan for Pt to transfer to [address] [place] [address] 1100 at noon. Pt with 1 episode of emesis. radiography technician currently in for exam. Angeli Prather RN, 07/18/2017 11:44 AM Pt transferred at 1210 to 1100. Report given in person to Shruthi RICHARDS. Angeli Prather RN, 07/18/2017 1:02 PM Angeli Terry RN - 07/18/2017 10:32 AM PSTFormatting of this note might be different fro m the original. Progress Notes by Angeli Prather RN at 07/18/17 1032 Author: Angeli Prather RN Service: (none) Author Type: Registered Nurse Filed: 07/18/17 1034 Date of Service: 07/18/17 1032 Status: Signed Explosive Technician: Angeli Prather RN (Registered Nurse) Pt arrival to rm 505 via WC with ICU nurse. Dr. Gomes in to see Pt and coordinate ca re. VSS. Nifedipine given. Social work currently in discussing demise paperwork and si tuation. Angeli Prather RN, 07/18/2017 10:34 AM Rasheeda Torres MD - 07/18/2017 10:26 AM PSTFormatting of this note might be different from th e original. Progress Notes by Rasheeda Gomes MD at 07/18/17 1026 Author: Rasheeda Gomes MD Service: (none) Author Type: Physician Filed: 07/18/17 1202 Date of Service: 07/18/17 1026 Status: Addendum Explosive Technician: Rasheeda Gomes MD (Physician) Related Notes: Original Note by Rasheeda Gomes MD (Physician) filed at 07/18 1056 M Attending Note ID: Aurea Perez; 37 y.o. female : 1980 Aurea arrived on antepartum floor prior to the MFM team being alert she was ready for t ransfer out of the unit. She is hoping to not disclose her to her family, family f rom the area will be visiting today or tomorrow. She reports a long period of sobriety from methamphetamines, then her 7 years ago and with her new partner she has been us ing again. Is committed to ongoing sobriety - reports good family support. In review of chart Aurea is 37 y.o. PPD#1 IOL/TOP with recent hypertensive kenneth is with cardiomyopathy, respiratory failure and acute renal insufficiency (creatininie 7 was 0.6-0.8). Transferred to [facility] for IOL given life threatened by pregn lei. This was accomplished 24 hours ago. ADAMTS 13 reportedly negative. 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 Creatinine has been trend ing back up as are LFTs. Working diagnosis is PEC / HELLP. Has not seen nephrology at [facility] US is pending from this am - suspect ascites. Of note she delivered in 2012 with severe HELLP - reports she had a hypoxic brain injury at the time (notes state delivery at [facility] - no records on CareEverywhere ? Differen t name). States baby is doing well. Given Aurea is no longer but continues to have hypertension and renal failure and does not want family to know about I have asked [facility] to c onsult and assume care. She will be best cared for on a medical floor. Appreciate care. [facility] is available for care - expect she will do well. She needs contraception, olson s signed tubal papers - needs to wait at least 30d. Should get depoprovera prior to d/c home Rasheeda Gomes MD 10:26; 07/18/2017 Antonina Pinto RN - 07/18/2017 9:23 AM PST Progress Notes by Antonina Irby RN at 07/18/17922 Author: Antonina Irby RN Service: (none) Author Type: Registered Nurse Filed: 07/18/17922 Date of Service: 07/18/17922 Status: Signed Explosive Technician: Antonina Irby RN (Registered Nurse) NSG Transfer Note Patient: Aurea Perez From: room: 659 to room: 505. Transport mode: Transported via wheelchair accompanied by RN. Last VS: Temp: 36.2 C (97.1 F), BP: 136/79, Heart Rate: 67, Resp: 12, SpO2: 97 %, Weig ht: 63.8 kg (140 lb 10.5 oz). Admission Wt:63.8 kg (140 lb 10.5 oz) Skin intact: Yes Time of last pain med: 0330 10mg Oxycodone Current IV: none at NA Current nursing problems: POD#1 s/p termination of for medical necessity. Monito r for HTN, s/sx of bleeding. Monitor labs. Pain and emesis control. Emotional support, en sure adequate coping mechanisms, Depo prior to discharge? Report given to: MAURICE Suh 5SW Antonina Irby RN, 07/18/2017 9:21 AM hMi brink PT - 07/18/2017 8:24 AM PSTFormatting of this note might be different from the o riginal. Progress Notes by Mi Barone PT at 07/18/17823 Author: Mi Barone PT Service: (none) Author Type: Physical Therapist Filed: 07/18/17823 Date of Service: 07/18/17823 Status: Signed Explosive Technician: Mi Barone PT (Physical Therapist) PHYSICAL THERAPY ATTEMPTED VISIT Patient Start Time: 822 Attempted Visit: Other (comment) Per discussion with RN, Pt has been ambulating to the bathroom with staff and is not approp riate for skilled PT at this time. PT will be discontinued. Please re-consult PT as Pt is ap propriate onversio n Transaction, Provider Unknown - 07/18/2017 6:06 AM PSTFormatting of this note might be di fferent from the original. Progress Notes by Ruma Yuen RN at 07/18/17605 Author: Ruma Yuen RN Service: (none) Author Type: Registered Nurse Filed: 07/18/17610 Date of Service: 07/18/17605 Status: Addendum Explosive Technician: Ruma Yuen RN (Registered Nurse) Related Notes: Original Note by Ruma Yuen RN (Registered Nurse) filed at 07/18/17 0 610 Neuro: Ativan given once for anxiety otherwise drowsy; disoriented to time; weak but [place]; A febrile. Cardiac: NS 70's; SBP <160 no PRN's needed overnight. Resp: RA; CTA. GI: Tolerating general diet; no BM; abdominal tender. : voids in BR hat appropriately; lochia appears health companion. S: intact. Lines: R PICC; R HD + pigtail. Pain: c/o abdominal pain; 10 oxy given twice. Plan: transfer to floor. Ruma Yuen RN, 07/18/2017 6:10 AM Mingo Clark - 07/18/2017 5:59 AM PSTFormatting of this note might be different from th e original. Progress Notes by Mingo Reed MD at 07/18/17 0559 Author: Mingo Reed MD Service: (none) Author Type: Physician Filed: 07/18/17911 Date of Service: 07/18/1759 Status: Addendum Explosive Technician: Mingo Reed MD (Physician) Related Notes: Original Note by Mingo Reed MD (Physician) filed at 07/18/17 0834 Family Medicine/OB Fellow Progress Note - Vaginal Delivery Name: Aurea Perez Date: 07/18/2017 Age/Gender: 37 y.o./female PCP: No Doc, No Doc : 1980 Attending: Provider, Critical Care Performing: Brianna Bourne ID/CC: 37 y.o. female who is PPD#1 s/p @ 21w after VTOP. Patient was admitted o n 07/16 as transfer from OSH for hypertensive crisis, pulmonary edema and respiratory failure s/p intubation that resolved after diuresis, acute renal insufficiency, elevated LFTs, cardi omyopathy. Patient has possible severe preeclampsia, suspected HUS. PMH notable for polysubstance abuse. Subjective Pt looking fwd to discharge. She notices the pain but it is manageable, bleeding is light, she got up to the bathroom multiple times yesterday. No headache, RUQ pain, blurred vision. No shortness of breath. No chest pain. Objective Vital Signs: Patient Vitals for the past 24 hrs: Temp BP Heart Rate Pulse Rate Resp SpO2 07/18/17 0600 - 151/86 74 - 11 98 % 07/18/17 0500 - 153/81 72 72 bpm 10 97 % 07/18/17 0400 36.4 C (97.6 F) 157/87 72 72 bpm 12 98 % 07/18/17 0323 - - - - 18 98 % 07/18/17 0300 - 159/89 71 - 16 98 % 07/18/17 0200 - 153/83 71 70 bpm 16 98 % 07/18/17 0100 - 131/73 71 71 bpm 11 96 % 07/18/17 0041 - - 72 72 bpm - 96 % 07/18/17 0000 36.7 C (98 F) 128/72 71 - 12 99 % 07/17/17 2300 - 148/84 74 - 13 99 % 07/17/17 2200 - 164/88 72 - - - 07/17/17 2130 - (!) 158/94 75 73 bpm 13 99 % 07/17/17 2100 - (!) 156/96 74 - - - 07/17/17 2030 - (!) 148/91 73 73 bpm - - 07/17/17 2000 36.3 C (97.3 F) 136/76 73 - 13 97 % 07/17/17 1900 - 155/83 72 72 bpm - 97 % 07/17/17 1800 - 149/82 73 - 15 96 % 07/17/17 1750 - 120/88 73 76 bpm - 98 % 07/17/17 1700 - (!) 173/108 71 - 17 98 % 07/17/17 1630 36.4 C (97.5 F) (!) 154/96 70 - - - 07/17/17 1600 - 137/85 67 67 bpm 11 97 % 07/17/17 1530 - 121/68 67 67 bpm - 96 % 07/17/17 1500 - 121/66 68 68 bpm 12 95 % 07/17/17 1450 - - 68 68 bpm - 96 % 07/17/17 1445 - 102/47 68 68 bpm - 96 % 07/17/17 1435 36.4 C (97.5 F) (!) 184/97 73 73 bpm 14 100 % 07/17/17 1420 - (!) 199/110 - - - - 07/17/17 1350 - (!) 171/97 73 - - - 07/17/17 1345 - (!) 180/100 79 - - - 07/17/17 1340 - (!) 175/100 74 - - - 07/17/17 1330 - (!) 199/125 74 - - - 07/17/17 1315 - (!) 172/98 79 - - - 07/17/17 1300 - (!) 183/106 75 - - 100 % 07/17/17 1245 - (!) 157/97 73 - - 99 % 07/17/17 1230 - (!) 192/136 74 - - 100 % 07/17/17 1220 - 179/85 76 - - 100 % 07/17/17 1210 - (!) 159/94 76 - - 99 % 07/17/17 1200 - (!) 148/94 79 - - 100 % 07/17/17 1155 - 149/83 78 - - 100 % 07/17/17 1145 - 155/90 76 - - 100 % 07/17/17 1140 - 167/85 79 - - 99 % 07/17/17 1135 - (!) 154/95 78 - - 100 % 07/17/17 1130 - 156/89 80 - - 98 % 07/17/17 1115 - 149/79 79 - - 100 % 07/17/17 1100 - 134/80 78 - - 100 % 07/17/17 1045 - 127/66 74 - - 98 % 07/17/17 1030 - 115/59 73 - 16 97 % 07/17/17 1015 - 94/54 75 - - 97 % 07/17/17 1000 37.3 C (99.1 F) (!) 176/109 80 - - 100 % 07/17/17 0930 - (!) 168/94 80 - - 100 % 07/17/17 0900 - (!) 169/97 79 - - 100 % 07/17/17 0845 - 169/81 79 - - 100 % 07/17/17 0830 - (!) 157/96 78 - - 100 % 07/17/17 0800 - 148/82 75 - - 99 % 07/17/17 0730 - 128/77 73 - - 98 % 07/17/17 0715 - 120/70 72 - - 98 % 07/17/17 0700 - 108/59 71 - 16 98 % Intake/Output Summary (Last 24 hours) at 07/18/17 0600 Last data filed at 07/18/17 0400 Gross per 24 hour Intake 1070 ml Output 1775 ml Net -705 ml Gen: NAD. Awake. Alert Pulm: breathing comfortably on room air, symmetric chest rise. Abdomen: soft. Diffusely tender, more so in RLQ. Firm Bulge in RLQ with flank bruising Fundus: firm 3cm below umbilicus Extremities: non tender, trace bilateral pedal edema is resolving. No unilateral redness, swelling, pain. Labs: Recent H/H: Lab results (within last 13 months/9480hours) 07/18/17 0006 07/17/17 0952 07/16/17 2201 HCT 21.6* 25.0* 21.7* Active Hospital Problem List: Patient Active Problem List Diagnosis Date Noted Cardiomyopathy (HCC) 07/16/2017 Echo report scanned into [employer]. LVF 35-40% Acute renal insufficiency 07/16/2017 07/09/17: Renal biopsy thrombotic microangiopathy. Global glomerulosclerosis. Interstitial fi brosis and tubular atrophy. Sent ADAMTS 13 Activity: 130 (range 68-163%) 07/10/17: Plasmapheresis and Eculizamab started. 07/12/17: ACLA IgG negative. ACLA IgA negative. ACLA IgM negative. Complement C3 112 mg/dL. Complement C4 21 mg/dL. Total complement CH50 > 60 Copper 250. Zinc 75 Intrauterine 07/16/2017 labs from [facility]: 06/08/17: A positive. Ab negative. RPR nonreactive, HBsAg non reactive. HCV Ab nonreactive, HIV nonreactive. Rubella immune. Detailed US on 07/09. Posterior placenta. EFW 15th centile. No abnormalities. Methamphetamine use 07/16/2017 Last use 07/03. [facility]: Utox 07/09/2017 Negative. Assessment 37 y.o. patient PPD#1 after s/p @ 21w after VTOP, now with RLQ pain/tenderness and palpable bulge. Plan #. Critical Care: Patient is critically ill in the ICU. Patient was admitted on 07/16 as cristobal sfer from OSH for hypertensive crisis, pulmonary edema and respiratory failure s/p intubatio n that resolved after diuresis, acute renal insufficiency, elevated LFTs, cardiomyopathy. Kranthi espinoza has possible severe preeclampsia, suspected HUS. PMH notable for polysubstance abuse. - Appreciate care by ICU/Critical care team. Care: 1) Continue current care. 2) Continue to encourage ambulation, increasing mobility as pain allows. 3) Recommend RLQ US to eval bulge - possible fluid colleciton? Ascites vs bleed? Not consis tent with uterine fundus. 4) Anemia - Pre deliv hct 25. Post- 21.5% Intrapartum EBL was 100cc. 5) Blood Type A positive - no need for Rhogam. Rubella pending. 7) PPBCM - Desires BTL. Explained this needs consents signed 30-days ahead of time. Recomme nded depo-provera injection on day of discharge, which patient would like. Disposition: Critically ill in ICU. Brianna Bourne MD High-Risk Obstetrics Fellow Family Medicine w/ Obstetric[facility] 06:00 on 07/18/2017 MFM Attending Note I have independently evaluated and repeated the harkins or critical portions of the service per formed by the resident or fellow, Dr. Bourne. I was directly involved in the medical decisi on making of the patient. I reviewed and edited if necessary the resident's note and agree w ith the documented findings and plan of care. Ms Perez is PPD1, now in ICU for multisystemic failure, now stable/improving labs. Brnedan sumner she will likely transfer to med/surg floor today, suggest with hospitalist/medicine (po stpartum or antepartum are less preferable locations as Ms Perez suffered a loss) in anticipation of discharge home. Contraception remains a remaining obsetetric/certified technician specialist concern for Ms Perez who desires BTL. A referral to a certified technician specialist provider here can be provided but as she lives in [place], she plans to follow up with her provider there instead. Plan depo prior to discharge. The total length of floor/unit time for this encounter was 25 minutes. Counseling and/or co ordination of care dominated more than fifty percent of the time and consisted of counseling , reassurance and teaching. Mingo Reed MD 08:24; 07/18/2017 Elizabeth Cardenas RN - 07/18/2017 4:50 AM PST Progress Notes by Leticia Bonilla RN at 07/18/17449 Author: Leticia Bonilla RN Service: (none) Author Type: Registered Nurse Filed: 07/18/17499 Date of Service: 07/18/17449 Status: Signed Explosive Technician: Leticia Bonilla RN (Registered Nurse) Went to unit to [facility]. pt, she was resting per her primary RN Stacy, She reported lochia is getting health companion. Contact info for PP on white board in room. Vehicle Service Attendant did not find pt's phone list in labor that she said was lost earlier. Supportive care as needed, will evaluate again in the morning or prn. Leticia Bonilla at 04:53 on 07/18/2017 Leticia Sagastume RN - 07/17/2017 9:13 PM PSTFormatting of this note might be different from the o riginal. Progress Notes by Leticia Bonilla RN at 07/17/172112 Author: Leticia Bonilla RN Service: (none) Author Type: Registered Nurse Filed: 07/17/172121 Date of Service: 07/17/172112 Status: Signed Explosive Technician: Leticia Bonilla RN (Registered Nurse) Checked in on pt re: PP status, pt very teary, looking for phone numbers and talking about her situation and transfer to [place], "shoes were left in [place]" Listened to pt, will look for paper in labor that has personal phone numbers, requesting pain med for cramping an d RN aware FF ?? 3 below U, tender to check, lochia light no clots, pad changed, pt stated she is mary perez ok. PP # on white board, will follow up prn and anticipate transfer tomorrow?? Leticia Bonilla at 21:21 on 07/17/2017 PP charge Zachariah Mckeon RN - 07/17/2017 6:28 PM PSTFormatting of this note might be different from the orig inal. Progress Notes by Antonina Irby RN at 07/17/171827 Author: Antonina Irby RN Service: (none) Author Type: Registered Nurse Filed: 07/18/17899 Date of Service: 07/17/171827 Status: Signed Explosive Technician: Antonina Irby RN (Registered Nurse) Patient Aurea Perez Pt arrived this afternoon following termination of due to medical necessity. She was withdrawn, tearful, and exhausted. A&Ox4. PRN oxy given with pain with fair results. B P well controlled following PO labetalol and nifedipine for HTN, but rises steadily after ad ministration. SBP in 170s ~4.5 hrs after noon doses. No PRNs given. PT complains of being co ld, afebrile. RA, lungs clear. Voiding adequate amounts. R HD catheter - still necessary? Ge neral diet ordered, tolerating dinner this evening. Small to moderate amount of rubra locia with 2-3 golf-ball sized or smaller clots noted. OB RN by to assess pt throughout the aftern oon. OB FOOD AND BEVERAGE INTERN by to talk to pt, but pt was sleeping. She will return at a later time. Pt nena ked to daughter, Kimmy, this evening. Will continue to assess for s/sx of hemorrhage and tr eat HTN as necessary. iry Sam LICSW - 07/17/2017 5:03 PM PSTFormatting of this note might be different from t bennie original. Progress Notes by Viry Funes MSW at 07/17/171702 Author: Viry Funes MSW Service: (none) Author Type: Sinter Feeder Filed: 07/17/17 9907 Date of Service: 07/17/171702 Status: Signed Explosive Technician: Viry Funes MSW (Sinter Feeder) Case Management Discharge Planning Assessment 17:03; 07/17/2017 Patient Aurea Perez is a 37 y.o. female admitted due to renal failure, elevated li geo enzymes, cardiomyopathy, and respiratory failure in the midst of 21 week , samira ent has been transferred back to ICU following VTOP. Discussion: FOOD AND BEVERAGE INTERN received consult request due to midterm demise and length of pregnan cy. FOOD AND BEVERAGE INTERN attempted to meet with patient prior to however patient appeared to be in pain , and a second time after her transfer back to the ICU however again patient appeared unable to engage in meaning full conversation due to drowsiness. Patient agreed to meet with SW at a later time, likely 07/18/2017. FOOD AND BEVERAGE INTERN provided her with a home choice packet and disc ussed choosing a home when she was able. She mentioned that her sister r ecently, however did not go in to detail at this time. Patient stated she lives in [place] a nd is not from [place]. She needs size 8 shoes if available. Patient did not wish to hold or see baby at this time, however was interested in mementos. No autopsy. Female infant born at 21w 5d no scores. SW will continue to check in with patient tomorrow to provide additional assessment. Discharge Planning Options Discharge Disposition Options: Home Discharge Support Options: MD follow up;To be determined Plan: FOOD AND BEVERAGE INTERN to continue to offer resources. Resources/Education provided: FOOD AND BEVERAGE INTERN completed chart review, left Planning after the Loss of a Child booklet at bedside. FOOD AND BEVERAGE INTERN provided information on grief and loss support. Interventions: Case Mgmt Team Interventions: Care coordination;Consult with healthcare team;Crisis certified personal finance counselor ing/emotional support/grief and loss support;DCA by face to face;Demise counseling and coord ination;Financial/Insurance;Provide resources Referrals: None Diagnosis: Hemalytic-uremic syndrome Co-Morbidity/Complications: Past Medical History: Diagnosis Date Hypertension Methadone misuse Reported buying Methadone off the street and taking up to five 10 mg tabs daily x 5 years Methamphetamine abuse Teenage years to present Surgery/Procedures: Past Surgical History: Procedure Laterality Date SECTION, LOW TRANSVERSE 2015 CT GUIDED NEEDLE BIOPSY 07/09/2017 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 Glomerulosclerosis, moderate interstial f ibrosis and tubular atrophy FOREARM FRACTURE SURGERY 2006 Advance Directive Information Advance directive?: None Advance Directive Offered: AD Booklet given Is this a readmission?: No Pre-Admit Baseline : Lives with: Not Yet Assessed. Receives help from: Not Yet Assessed Current Providers/Agencies: Not Yet Assessed Prior to admit, the patient was: Living at home with others Mobility prior to admit: Independent DME and/or supplies at residence BOX TOE STITCHER: None Transportation used prior to admit: Family/friend Medication administration BOX TOE STITCHER: Independent PCP: Per chart review No Doc, No Doc Principle Payors: To Be confirmed with patient. Payor: / Primary Contact Information: Extended Emergency Contact Information Primary Emergency Contact: Erik Gordon [facility] Relation: Grandparent Secondary Emergency Contact: None,Per Pt [facility] Relation: None Patient is being followed by Case Management Viry Funes, FOOD AND BEVERAGE INTERN Pager: [phone] [facility] Team Weekends and Iron Pellet Tester Sinter Feeder Avtar Cote MD - 07/17/2017 4:25 PM PSTFormatting of this note might be different from the o riginal. Progress Notes by Valdemar De Los Santos MD at 07/17/17 1866 Author: Valdemar De Los Santos MD Service: (none) Author Type: Physician Filed: 07/17/17 1705 Date of Service: 07/17/17 1625 Status: Signed Explosive Technician: Valdemar De Los Santos MD (Physician) [facility] Critical Care Medicine Progress Note Name: Aurea Perez Location: [address] PCP: No Doc, No Doc Hospital Day: 1 Patient Identification 37 y.o. female who was admitted on 07/16/17 from OSH for renal failure, elevated liver enzyme s, cardiomyopathy, and respiratory failure in the midst of 21 week pregancy, transferred ryanne k to ICU following VTOP Major Chronological Events | Interim & Transfer Summary 07/16 Transferred from OSH 07/17 Induction / VTOB for preeclampsia with severe features, cardiomyopathy, and renal insu fficiency 24 Hour Events / Subjective VTOP by MFM - no complications Received PRN meds for blood pressure control Assessment and Plan 37 y.o. female who was admitted on 07/16/17 from OSH for renal failure, elevated liver enzyme s, cardiomyopathy, and respiratory failure in the midst of 21 week pregancy. Ddx includes mo st likely HELLP, pre-eclampisia, TTP-HUS, drug related. Favor HELLP. Complicated by cardio myopathy. Overall, termination of should improve all of the above. Now s/p dilat ion and induction. Transferred back to ICU after delivery AUNG - likely from pre-eclampisa, HELLP related HTN urgency. Had biopsy, but do not have re sults. Per report, heme does not think she has TTP. 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 EF reported at 35-40%, but I could not find official record. - will need monitoring in ICU after delivery. - Keep SBP < 140 - b blockade - will likely need janet-I once renal fxn improves Elevated liver enzymes - Continue to monitor Prophylaxis DVT: SCDs Stress ulcer (avoid PPI if possible): NI TLD Right IJ dialysis line, Right PICC ICU-Associated Infection Risk CAUTI: Burgess: No. CLABSI: Central lines: Yes. Current line(s) are medically necessary due to Clinical instabi lity of the patient and/or complexity of infusion regimen and CRRT/Dialysis/Apheresis. CDI: Current on antibiotics? No Restraint:None Plan of care discussed with MFM. Subjective Minimal pain, hungry, fatigued Review of Systems Otherwise negative Objective Vitals: Vitals: Blood pressure 137/85, temperature 36.4 C (97.5 F), resp. rate 11, hei ght 167.6 cm (5' 6"), weight 63.8 kg (140 lb 10.5 oz), SpO2 97 %, unknown if currently breas tfeeding. Cardiac Rhythm (monitored Pts.): Normal sinus rhythm Heart Rate Av.8 Min: 67 Max: 83 BP Min: 94/54 Max: 199/110 Temp (24hrs), Av.8 C (98.3 F), Min:36.4 C (97.5 F), Max:37.3 C (99.1 F) I/O: 07/16 0700 - 07/17 0659 In: - Out: 450 [Urine:450] Ventilator: RASS/CAM/Mobility Score: Reviewed, please see nursing flow sheet. General: NAD, oriented x 3 HEENT: no scleral icterus, no elevated JVD Respiratory: clear bilaterally Cardiovascular: Loud P2, regular Extremities: 2-3+ pitting edema Neurologic: gcs 15 Medications Current Facility-Administered Medications Medication Dose Route Frequency lidocaine (aka XYLOCAINE) 2 % jelly 2 application 2 application Topical PRN LORazepam (aka ATIVAN) injection 1 mg 1 mg Intravenous Q4H PRN simethicone (aka MYLICON) chewable tablet 80 mg 80 mg Oral Q6H PRN NIFEDipine IMMEDIATE release (aka PROCARDIA) capsule 20 mg 20 mg Oral Q4H polyethylene glycol (aka MIRALAX) packet 17 g 17 g Oral DAILY magnesium hydroxide (aka MOM) suspension 30-60 mL 30-60 mL Oral DAILY PRN dibucaine (aka NUPERCAINAL) 1 % ointment 1 application 1 application Topical QID PRN hydrocortisone (aka ANUSOL HC) 2.5 % rectal cream 1 application 1 application Rectal P RN diphth,pertus(acell),tetanus (aka BOOSTRIX) 2.5-8-5 Lf-mcg-Lf/0.5mL vaccine syringe 0.5 mL 0.5 mL Intramuscular Prior to Discharge [START ON 07/18/2017] measles,mumps and rubella (PF) vaccine (aka M-M-R II) 1,000-12,500 TCID50/0.5 mL injection 0.5 mL 0.5 mL Subcutaneous PRN rho D IMmune globulin (full dose) (aka RHOGAM) injection 300 mcg 300 mcg Intramuscular PRN hydrALAZINE (aka APRESOLINE) injection 5-10 mg 5-10 mg Intravenous Q20MIN PRN labetalol (aka NORMODYNE) injection 20-40 mg 20-40 mg Intravenous Q10MIN PRN oxyCODONE (Immediate release) (aka ROXICODONE) tablet 5-10 mg 5-10 mg Oral Q4H PRN labetalol (aka NORMODYNE) tablet 600 mg 600 mg Oral Q8H Labs CBC Lab results in last 30 hours 07/17/1752 07/16/172200 WBC 13.4* 11.1* HGB 8.4* 7.3* HCT 25.0* 21.7* PLT 149* 144* LYM 1.41 0.78 MONO 0.78 0.44 EOS 0.00 0.00 BAS 0.02 0.00 Differential Lab results in last 30 hours 07/17/1752 07/16/172200 LYM 1.41 0.78 NRBC 0.3* 0.2* BMP Lab results in last 30 hours 07/17/1752 07/16/172200 NA 135 138 K 3.9 4.2 CL 92* 95* TCO2 24 24 BUN 83* 82* CR 4.38* 4.33* GLUC -- 115* CA -- 8.5* LFTs Lab results in last 30 hours 07/17/1752 07/16/172200 ALT 65* 41* AST 69* 38 ALKP -- 50 TBILI -- 0.3 TPROT -- 5.8* ALB -- 3.8 Coags Lab results in last 30 hours 07/17/1752 02/09/18 2201 PT 9.9 10.1 INR 1.0 1.0 PTT 23.2 22.4 Magnesium Lab results in last 30 hours 07/17/17 0952 07/16/17 220 MG 2.23 2.21 Radiology: Xr Chest 1 View Result Date: 07/17/2017 No infiltrates Right-sided catheters as described above. No complications. Dictated by: DEVAUGHN RIZVI Dictated: 07/17/2017 2:23 AM Job: [id number] Administrative The patient is critically ill, at risk for imminent organ dysfunction. 35 minutes spent ex clusive of procedures. Body mass index is 22.7 kg/m. Valdemar De Los Santos MD Anotnina Pinto RN - 07/17/2017 3:13 PM PST Progress Notes by Antonina Irby RN at 07/17/171512 Author: Antonina Irby RN Service: (none) Author Type: Registered Nurse Filed: 07/17/171512 Date of Service: 07/17/171512 Status: Signed Explosive Technician: Antonina Irby RN (Registered Nurse) NSG Arrival Note Patient: Aurea Perez Arrival time: 1440 From: room: 5E to room: 659. Last VS: Temp: 36.4 C (97.5 F), BP: (S) 102/47, Heart Rate: 68, Resp: 14, SpO2: 96 %, Weight: 63.8 kg (140 lb 10.5 oz). Admission Wt:63.8 kg (140 lb 10.5 oz) Skin intact: Yes Time of last pain med: 1202 100mcg Fentanyl Lines and drains: Right IJ mahurkar, Right brachial PICC Current IV: none at N/A Current nursing problems: S/p termination of for hypertensive crisis - monitor h emodynamics, treat hypertension. Monitor for s/sx of stroke, bleeding. Manage pain. Emotio nal support. Patient orientation: to call light to telephone and television to general hospital information to plan for the day Antonina Irby RN, 07/17/2017 3:07 PM Chelly Padilla RN - 07/17/2017 2:15 PM PSTFormatting of this note might be different from th e original. Progress Notes by Chelly Jordan RN at 07/17/17 1415 Author: Chelly Jordan RN Service: (none) Author Type: Registered Nurse Filed: 07/17/17 1621 Date of Service: 07/17/17 1415 Status: Signed Explosive Technician: Chelly Jordan RN (Registered Nurse) Transferred to ICU via wheelchair, without difficulty. PICC saline locked for transfer. Oral labetalol and oral niphedipine given prior to transfe r Pt gives permission to create memory box, including pictures. Will delivery box when comple te. Will return to ICU for fundal checks as needed. Bleeding WNL at this time. PT Report given to MAURICE Sarkar who is assuming care at this time. Chelly Jordan RN, 07/17/2017 4:20 PM Zuleika Singh PT - 07/17/2017 2:10 PM PSTFormatting of this note might be different from the hamlet ginal. Progress Notes by Heather Rendon PT at 07/17/17 1410 Author: Heather Rendon PT Service: (none) Author Type: Physical Therapist Filed: 07/17/17 1410 Date of Service: 07/17/17 1410 Status: Signed Explosive Technician: Heather Rendon PT (Physical Therapist) Hold today. Chelly Padilla RN - 07/17/2017 12:53 PM PSTFormatting of this note might be different from th e original. Progress Notes by Chelly Jordan RN at 07/17/17 1253 Author: Chelly Jordan RN Service: (none) Author Type: Registered Nurse Filed: 07/17/17 1356 Date of Service: 07/17/17 1253 Status: Addendum Explosive Technician: Chelly Jordan RN (Registered Nurse) Related Notes: Original Note by Chelly Jordan RN (Registered Nurse) filed at 03/24 1310 Shortly after removal of LAMS, pt had bowel movement. Requested bed whitlock for urination and a dditional BM. While sitting on bed whitlock, SROM occurred with clear, pink tinged fluid at 1216, MD notified via emergin. Nonliving 21w5d girl born shortly after at 1218, MDs stat paged to room. Delivery of placenta at 1226. Perineum intact. EBL 100 Will continue to montior bleeding and BP closely. Plan for transfer to ICU. Chelly Jordan RN, 07/17/2017 1:02 PM Chelly Padilla RN - 07/17/2017 12:08 PM PSTFormatting of this note might be different from nadja hua original. Progress Notes by Chelly Jordan RN at 07/17/17 1208 Author: Chelly Jordan RN Service: (none) Author Type: Registered Nurse Filed: 07/17/17 1209 Date of Service: 07/17/17 1208 Status: Signed Explosive Technician: Chelly Jordan RN (Registered Nurse) 7 laminaria and 1 gauze removed at 1200. SVE at that time 4/100/-2. Pt still getting comfortable s/p epidural. Viry Valero LICSW - 07/17/2017 12:00 PM PSTFormatting of this note might be different from del avery original. Progress Notes by Viry Funes MSW at 07/17/17 1200 Author: Viry Funes MSW Service: (none) Author Type: Sinter Feeder Filed: 07/17/17 1204 Date of Service: 07/17/17 1200 Status: Signed Explosive Technician: Viry Funes MSW (Sinter Feeder) FOOD AND BEVERAGE INTERN spoke to RN regarding potential demise. Attempted to visit patient however patient not currently in a position to proceed with SW consult. FOOD AND BEVERAGE INTERN available via pager to meet with as needed. Can also see in ICU once stable. Please pag e SW once available to meet, available until 1700, 07/17/2017 or tomorrow as well. SW following for ongoing PP needs. Viry Shantel, FOOD AND BEVERAGE INTERN at 12:01 on 07/17/2017 Chelly Padilla RN - 07/17/2017 10:24 AM PSTFormatting of this note might be different from th e original. Progress Notes by Chelly Jordan RN at 07/17/17 1024 Author: Chelly Jordan RN Service: (none) Author Type: Registered Nurse Filed: 07/17/17 1302 Date of Service: 07/17/17 1024 Status: Addendum Explosive Technician: Chelly Jordan RN (Registered Nurse) Related Notes: Original Note by Chelly Jordan RN (Registered Nurse) filed at 03/24 1029 BP in 170s/100s. 80mg Labetolol IV without improvement. 20mg niphedipine given. BP now 94/5 4 at last check. Pt endorsing rectal pressure. Unsure exam (impacted stool vs laminaria vs head), MDS called for evaluation. Cervix 3.5cm, with loose laminaria per MD. Plan to remove LAMs after epidural placement. Pt had bowel movement shortly after cervical exam. Pt requesting epidural, however anesthesia uncomfortable placing until current platelets ar e recorded. Morning bloodwork sent, will notify anesthesia when resulted. 100mcg fentanyl given in interim. Chelly Jordan RN, 07/17/2017 10:25 AM Curtis Amezcua MD - 07/17/2017 9:53 AM PSTFormatting of this note might be different from the orig inal. Progress Notes by Christina Espinal MD at 07/17/17 0939 Author: Christina Espinal MD Service: (none) Author Type: Physician Filed: 07/17/1756 Date of Service: 07/17/17952 Status: Signed Explosive Technician: Christina Espinal MD (Physician) OB Fellow Progress Note ID: Aurea Perez; 37 y.o. female :1980 S: In to see patient due to increased pressure. Patient desires epidural prior to delivery. O: BP: (!) 169/97, Heart Rate: 79, Cardiac Rhythm (monitored Pts.): Normal sinus rhythm, Te mp: 36.8 C (98.3 F), Resp: 16, SpO2: 100 %, Height: 66" (167.6 cm), Weight: 63.8 kg (140 lb 10.5 oz), BMI: 22.7 Cervical exam: LAMS in place but loose. Cervix ~3.5cm dilated. A/P: 37 y.o. 21w5d IOL for hypertensive crisis, Acute renal failure, severe anemia, and cardiomyopathy suspected HUS vs hematologic disorder vs previable severe preeclampsia Agree with epidural placement now Will remove LAMS after patient comfortable Will re-examine SVE after epidural. Seen with Dr. Derek Espinal MD OB Fellow 09:54 07/17/2017 onversio n Transaction, Provider Unknown - 07/17/2017 9:03 AM PSTFormatting of this note might be di fferent from the original. Progress Notes by Yessica Weaver RN at 07/17/17902 Author: Yessica Weaver RN Service: (none) Author Type: Registered Nurse Filed: 07/17/1704 Date of Service: 07/17/17902 Status: Signed Explosive Technician: Yessica Weaver RN (Registered Nurse) Break relief complete. OB fellow notified for severe range pressures. Yumi notified and fredy ting return call from fellow. Yessica Weaver RN onver chaz Transaction, Provider Unknown - 07/17/2017 8:39 AM PST Progress Notes by Yessica Weaver, RN at 07/17/17838 Author: Yessica Weaver RN Service: (none) Author Type: Registered Nurse Filed: 07/17/17839 Date of Service: 07/17/17838 Status: Signed Explosive Technician: Yessica Weaver, RN (Registered Nurse) Break relief for Yumi Rn. Yessica Weaver RN Aldo Ireland - 07/17/2017 8:14 AM PST Progress Notes by Aldo Cristobal MD at 07/17/17813 Author: Aldo Cristobal MD Service: (none) Author Type: Physician Filed: 07/17/17825 Date of Service: 07/17/17813 Status: Signed Explosive Technician: Aldo Cristobal MD (Physician) [facility] Progress Note L+D Aurea Perez Age/Gender 37 y.o. female Attending Aldo Cristobal MD Performing Aldo T Cristobal [address] PCP No Doc, No Doc Hosp Day # 1 Labor: Induction Subjective: Sleeping comfortably. Easily awakened. Minimal abdominal discomfort. Pain Control: None Membrane Status: Intact Objective Vitals: BP: 148/82, Heart Rate: 75, Cardiac Rhythm (monitored Pts.): Normal sinus rhythm, T emp: 36.8 C (98.3 F), Resp: 16, SpO2: 99 %, Height: 167.6 cm (5' 6"), Weight: 63.8 kg (1 40 lb 10.5 oz) Contractions: Irregular Cervical Exam: Deferred. Seven laminaria and one 4 x 4 gauze in situ. Assessment: 37 year old at 21 5/7 weeks undergoing IOL for likely preeclampsia with severe features, cardiomyopathy, renal insufficiency and social disarray. Plan: 1. Previable preeclampsia with severe features: - Misoprostol 400 mcg oral now. - LEP prn pain control - Continue 1 or 2 gm Magnesium load for seizure prophylaxis without maintenance. - T+C x 2 units given anemia and risk for hemorrhage - Continue Labetalol 600 mg q 8 and Nifedipine 20 q 4 2. SOPHIA - Monitor urine output, consider burgess placement - Labs scheduled at 1000 3. Cardiomyopathy - Cardiology consultation - Echo report from [facility] scanned into [facility] 4. Social disarray/Meth use - SW consultation Aldo Cristobal MD 08:14; 07/17/2017 Chelly Shaw RN - 07/17/2017 7:33 AM PST Progress Notes by Chelly Jordan RN at 07/17/17732 Author: Chelly Jordan RN Service: (none) Author Type: Registered Nurse Filed: 07/17/17734 Date of Service: 07/17/17732 Status: Signed Explosive Technician: Chelly Jordan RN (Registered Nurse) Handoff report received from Mi Caballero RN. Assuming care at this time. Pt sleeping. BP WNL at this time, will continue to monitor closely. Cristobal network communications engineer. Chelly Jordan RN, 07/17/2017 7:35 AM Aldo Ireland - 07/17/2017 3:22 AM PST Progress Notes by Aldo Cristobal MD at 07/17/17321 Author: Aldo Cristobal MD Service: (none) Author Type: Physician Filed: 07/17/17 0326 Date of Service: 07/17/17321 Status: Signed Explosive Technician: Aldo Cristobal MD (Physician) [facility] Procedure Note The risks and benefits were reviewed and the patient gave written consent to proceed with l aminaria placement. She was placed in dorsal lithotomy position and a sterile speculum was p laced. The cervix was prepped with betadine. Local lidocaine 2% was applied to anterior lip. The anterior lip was grasped with a single tooth tenaculum. Using sterile technique, four 3 mm laminaria and three 4 mm (total seven laminaria) were placed into the endocervical. A fo lded 4 x 4 was placed into the vaginal vault. The tenaculum and speculum were removed. The p atient tolerated the procedure well. Complications: 0 EBL: 1 ML Aldo Cristobal MD 03:26; 07/17/2017 onversion Transaction, Prov ider Unknown - 07/17/2017 12:38 AM PSTFormatting of this note might be different from the or iginal. Progress Notes by Yaneli Holt RN at 07/17/1737 Author: Yaneli Holt RN Service: (none) Author Type: Registered Nurse Filed: 07/17/1741 Date of Service: 07/17/1737 Status: Signed Explosive Technician: Yaneli Holt RN (Registered Nurse) Shift Summary Neuro: A+Ox4, cooperative, WHARTON, follows commands, RASS 0 to +1, clear, appropriate Restraints: not needed CV: SR 70-90s, elevated BPs 170-180s, labatolol IV given x2, bilateral pitting edema on LE Respiratory: RA, lungs clear, O2 sat 98-100% GI: NPO for procedure, able to have pills w/ small sip of water, no BM : using bathroom, adequate UOP Skin: intact Pain: cramping on abdomen, pain acceptable Lines/Drains: Rt HD cath w/ pigtail, Rt. Arm triple lumen PICC Mobility: able to get OOB with standby assist, repositions self in bed Labs: abnormal hct reported to MD, no intervention at this time Family Interactions : none during shift Plan for the day: plan for OB procedure, control hypertension, trend labs Yaneli Holt at 00:38 on 07/17/2017 onver chaz Transaction, Provider Unknown - 07/17/2017 12:30 AM PST Progress Notes by Yaneli Holt RN at 07/17/1729 Author: Yaneli Holt RN Service: (none) Author Type: Registered Nurse Filed: 07/17/1734 Date of Service: 07/17/1729 Status: Signed Explosive Technician: Yaneli Holt RN (Registered Nurse) NSG Transfer Note Patient: Aurea Perez From: room: 659 to room: 565. Belongings verified with the patient: Yes - see flowsheet Transport mode: Transported via wheelchair accompanied by RN. Last VS: Temp: 36.8 C (98.3 F), BP: (!) 175/94, Heart Rate: 79, Resp: 15, SpO2: 98 %, Weight: 63.8 kg (140 lb 10.5 oz). Admission Wt:63.8 kg (140 lb 10.5 oz) Skin intact: Yes PU Prevention Specialty Bed: NA Time of last pain med: N/a I/O for last 24 hours: Intake/Output Summary (Last 24 hours) at 07/17/17 0034 Last data filed at 07/16/17 2200 Gross per 24 hour Intake 0 ml Output 250 ml Net -250 ml Current IV: none at saline locked Current nursing problems: Blood pressure control, monitor labs Family notified: No - pt will call daughter Notified to: n/a Time of notification: n/a Report given to: MAURICE Stark Cindy Y RN, 07/17/2017 12:34 AM Aldo Ireland - 07/16/2017 11:36 PM PST Progress Notes by Aldo Cristobal MD at 07/16/17 3936 Author: Aldo Cristobal MD Service: (none) Author Type: Physician Filed: 07/16/17 815 Date of Service: 07/16/172335 Status: Signed Explosive Technician: Aldo Cristobal MD (Physician) MFM Brief Note Pt asymptomatic. Mild range BPs. Labs reviews. CBC stable with normal coags. Cr 4.33. Discu ssed with Dr. Hennessy that she was candidate for transfer out of ICU for IOL. , sh e will likely require transfer back to ICU for CV monitoring due to cardiomyopathy. Aldo Cristobal MD 23:40; 07/16/2017 onversion Transaction, Prov ider Unknown - 07/16/2017 9:00 PM PSTFormatting of this note might be different from the or iginal. Progress Notes by Yaneli Holt, MAURICE at 07/16/172099 Author: Yaneli Holt, RN Service: (none) Author Type: Registered Nurse Filed: 07/17/178 Date of Service: 07/16/172099 Status: Signed Explosive Technician: Yaneli Holt RN (Registered Nurse) NSG Admission Note Patient: Aurea Perez Admission Time and Date: 2044 on 07/17/2017 Patient admitted from: Transfer from another Acute Care Facility to room 659. Patient orientation: to call light to telephone and television to [facility] information to plan for the day Belongings verified with the patient: Yes - see flowsheet Current nursing problems: Blood pressure control, trend labs, OB consult Yaneli Holt, RN, 07/17/2017 12:37 AM Estee Kan, CYBER SECURITY SPECIALIST - 07/16/2017 5:04 PM PST Progress Notes by Estee Verde at 07/16/171703 Author: Estee Verde Service: (none) Author Type: Coil Shaper Filed: 07/16/171703 Date of Service: 07/16/171703 Status: Signed Explosive Technician: Estee Verde (Coil Shaper) Transfer Center Direct Admit Call Summary 07/16/2017 17:04 ID: Aurea Perez; 37 y.o. female Admitting Provider: Valdemar De Los Santos MD Accepting Provider: Valdemar De Los Santos MD Transfer Center Direct Admit Information Form The following patient has been accepted in transfer to [facility]. Transfer Type: IP to IP - Adult Call #: [id number] Patient Information Patient Name: AUREA PEREZ : 1980 Age: 37 years ALERTS: 1)Faxed Agreement: [phone] Gender: Female Weight: Height: MRN (if known): [id number] Chief Complaint/Diagnosis: Diagnosis 1: Hemalytic-uremic syndrome Date of onset: Clinical Info Notes: User Date/Time Subject Message Estee Verde 07/16/2017 16:01 [phone] 1980DX: Hemalytic-uremic [id number] Provider Dr. David Motta caller Dr. De Los Santos accepted Medications: Devices: Procedures: Procedure Date/Time Notes Referring/Sending Information Referring/Sending Provider: UNLISTED, PROVIDER Referring/Sending Location: [facility] Referring Provider Primary Phone Number: Referring Location Notes: User Date/Time Subject Message Patient Location Detail (if applicable): inpt. Consulting Service and Provider Consulting Provider: Consulting Provider Service: Consulting Provider Notes: Accepting/Admitting Information Accepting Physician: VALDEMAR DE LOS SANTOS Accepting Service: PULMONARY DISEASE Requested Unit/ Level of Care: LOC-ICU Accepting Provider Notes: User Date/Time Subject Message Estee Verde 07/16/2017 16:10 8E staff aware and confirmed acceptance of to this pt. Placement Information Assigned Unit: 6E-Surg/ICU Assigned Bed (if known): 641 07/16/2017 16:52 User Date/Time Subject Message Estee Verde 07/16/2017 16:09 faxed request to [facility] Estee Verde 07/16/2017 17:00 Mychal- got bed info and # to call for report. Reminded Kelvin silva to send all labs and images available with thepatient if not able to push to [employer]. Transportation Detail: Transport Type: Adult - Air ETA: Unknown Case Status: Case Status: Accepted Explanation: A - Accepted Date/Time of Decision: 07/16/2017 17:01 User Date/Time Subject Message Estee Verde documente d in this encounter Plan of Treatment Not on filedocumented as of this encounter Procedures + +--------+ + + + | Procedure Name | Priori | Date/Time | Associated Diagnosis | Comments | | | ty | | | | + +--------+ + + + | HEMATOCRIT | Routin | 07/22/2017 | | Results for this | | | e | 5:14 AM | | procedure are in the | | | | PST | | results section. | + +--------+ + + + | BASIC METABOLIC | Routin | 07/22/2017 | | Results for this | | PANEL | e | 5:14 AM | | procedure are in the | | | | PST | | results section. | + +--------+ + + + | CBC NO DIFFERENTIAL | Routin | 07/21/2017 | | Results for this | | | e | 6:53 AM | | procedure are in the | | | | PST | | results section. | + +--------+ + + + | BASIC METABOLIC | Routin | 07/21/2017 | | Results for this | | PANEL | e | 6:53 AM | | procedure are in the | | | | PST | | results section. | + +--------+ + + + | CBC NO DIFFERENTIAL | Routin | 07/20/2017 | | Results for this | | | e | 5:45 AM | | procedure are in the | | | | PST | | results section. | + +--------+ + + + | BASIC METABOLIC | Routin | 07/20/2017 | | Results for this | | PANEL | e | 5:45 AM | | procedure are in the | | | | PST | | results section. | + +--------+ + + + | RUBEOLA, MUMPS, | Routin | 07/19/2017 | | Results for this | | RUBELLA AB, IGG | e | 6:10 AM | | procedure are in the | | | | PST | | results section. | + +--------+ + + + | PT AND PTT | Routin | 07/19/2017 | | Results for this | | | e | 6:10 AM | | procedure are in the | | | | PST | | results section. | + +--------+ + + + | CBC NO DIFFERENTIAL | Routin | 07/19/2017 | | Results for this | | | e | 6:10 AM | | procedure are in the | | | | PST | | results section. | + +--------+ + + + | LACTATE | Routin | 07/19/2017 | | Results for this | | DEHYDROGENASE | e | 6:10 AM | | procedure are in the | | | | PST | | results section. | + +--------+ + + + | COMPREHENSIVE | Routin | 07/19/2017 | | Results for this | | METABOLIC PANEL | e | 6:10 AM | | procedure are in the | | | | PST | | results section. | + +--------+ + + + | IRON PROFILE, | Routin | 07/18/2017 | | Results for this | | (FE+IBC+FERR+%SAT) | e | 3:20 PM | | procedure are in the | | | | PST | | results section. | + +--------+ + + + | VITAMIN B12+FOLATE | Routin | 07/18/2017 | | Results for this | | | e | 3:20 PM | | procedure are in the | | | | PST | | results section. | + +--------+ + + + | TSH | Routin | 07/18/2017 | | Results for this | | | e | 3:20 PM | | procedure are in the | | | | PST | | results section. | + +--------+ + + + | ECHO LIMITED | Routin | 07/18/2017 | | Results for this | | | e | 11:59 AM | | procedure are in the | | | | PST | | results section. | + +--------+ + + + | US PELVIS | Routin | 07/18/2017 | | Results for this | | TRANSABDOMINAL | e | 9:53 AM | | procedure are in the | | | | PST | | results section. | + +--------+ + + + | CBC NO DIFFERENTIAL | Routin | 07/18/2017 | | Results for this | | | e | 5:45 AM | | procedure are in the | | | | PST | | results section. | + +--------+ + + + | HEPATIC FUNCTION | Routin | 07/18/2017 | | Results for this | | PANEL | e | 5:45 AM | | procedure are in the | | | | PST | | results section. | + +--------+ + + + | BASIC METABOLIC | Routin | 07/18/2017 | | Results for this | | PANEL | e | 5:45 AM | | procedure are in the | | | | PST | | results section. | + +--------+ + + + | HISTORICAL LAB PANEL | Routin | 07/18/2017 | | Results for this | | RESULT | e | 12:06 AM | | procedure are in the | | | | PST | | results section. | + +--------+ + + + | PT AND PTT | Routin | 07/18/2017 | | Results for this | | | e | 12:06 AM | | procedure are in the | | | | PST | | results section. | + +--------+ + + + | MAGNESIUM | Routin | 07/18/2017 | | Results for this | | | e | 12:06 AM | | procedure are in the | | | | PST | | results section. | + +--------+ + + + | SURGICAL PATHOLOGY | Routin | 07/17/2017 | | Results for this | | EXAM | e | 12:26 PM | | procedure are in the | | | | PST | | results section. | + +--------+ + + + | HISTORICAL LAB PANEL | Routin | 07/17/2017 | | Results for this | | RESULT | e | 9:52 AM | | procedure are in the | | | | PST | | results section. | + +--------+ + + + | PT AND PTT | Routin | 07/17/2017 | | Results for this | | | e | 9:52 AM | | procedure are in the | | | | PST | | results section. | + +--------+ + + + | FIBRINOGEN | Routin | 07/17/2017 | | Results for this | | | e | 9:52 AM | | procedure are in the | | | | PST | | results section. | + +--------+ + + + | MAGNESIUM | Routin | 07/17/2017 | | Results for this | | | e | 9:52 AM | | procedure are in the | | | | PST | | results section. | + +--------+ + + + | LACTATE | Routin | 07/17/2017 | | Results for this | | DEHYDROGENASE | e | 9:52 AM | | procedure are in the | | | | PST | | results section. | + +--------+ + + + | XR CHEST 1 VIEW | Routin | 07/17/2017 | | Results for this | | | e | 2:15 AM | | procedure are in the | | | | PST | | results section. | + +--------+ + + + | PT AND PTT | Routin | 07/16/2017 | | Results for this | | | e | 10:01 PM | | procedure are in the | | | | PST | | results section. | + +--------+ + + + | CBC WITH | Routin | 07/16/2017 | | Results for this | | DIFFERENTIAL | e | 10:01 PM | | procedure are in the | | | | PST | | results section. | + +--------+ + + + | MAGNESIUM | Routin | 07/16/2017 | | Results for this | | | e | 10:01 PM | | procedure are in the | | | | PST | | results section. | + +--------+ + + + | LACTATE | Routin | 07/16/2017 | | Results for this | | DEHYDROGENASE | e | 10:01 PM | | procedure are in the | | | | PST | | results section. | + +--------+ + + + | CALCIUM, IONIZED | Routin | 07/16/2017 | | Results for this | | | e | 10:01 PM | | procedure are in the | | | | PST | | results section. | + +--------+ + + + | COMPREHENSIVE | Routin | 07/16/2017 | | Results for this | | METABOLIC PANEL | e | 10:01 PM | | procedure are in the | | | | PST | | results section. | + +--------+ + + + | MRSA SCREEN | Routin | 07/16/2017 | | Results for this | | | e | 8:44 PM | | procedure are in the | | | | PST | | results section. | + +--------+ + + + documented in this encounter Results Hematocrit (07/22/2017 5:14 AM PST) + + + + + + | Component | Value | Ref Range | Performed | Pathologist | | | | | At | Signature | + + + + + + | HCT, | 22.6 (L) | 34.0 - 46.6 % | EXTERNAL | | | External | | | LAB | | + + + + + + + + | Specimen | + + | Blood specimen | | (specimen) | + + + +---------+ + + | Performing | Address | City/State/Zipcode | Phone Number | | Organization | | | | + +---------+ + + | EXTERNAL LAB | | | | + +---------+ + + Basic Metabolic Panel (07/22/2017 5:14 AM PST) + + + + + + | Component | Value | Ref Range | Performed | Pathologist | | | | | At | Signature | + + + + + + | K | 3.2 (L) | 3.5 - 5.2 | EXTERNAL | | | | | mmol/L | LAB | | + + + + + + | CO2 | 29 | 18 - 29 mmol/L | EXTERNAL | | | | | | LAB | | + + + + + + | Creatinine | 3.16 (H) | 0.57 - 1.00 | EXTERNAL | | | | | mg/dL | LAB | | + + + + + + | Calcium | 7.7 (L) | 8.7 - 10.2 | EXTERNAL | | | | | mg/dL | LAB | | + + + + + + | BUN | 84 (H) | 6 - 20 mg/dL | EXTERNAL | | | | | | LAB | | + + + + + + | Na | 139 | 134 - 144 | EXTERNAL | | | | | mmol/L | LAB | | + + + + + + | Cl | 95 (L) | 97 - 108 mmol/L | EXTERNAL | | | | | | LAB | | + + + + + + | Glucose | 100 (H)Comment: Normal | 65 - 99 mg/dL | EXTERNAL | | | | printed is for | | LAB | | | | fasting.No normals for | | | | | | random. | | | | | | | | | | + + + + + + | Anion Gap | 15 | 5 - 19 mmol/L | EXTERNAL | | | | | | LAB | | + + + + + + + + | Specimen | + + | Blood specimen | | (specimen) | + + + +---------+ + + | Performing | Address | City/State/Zipcode | Phone Number | | Organization | | | | + +---------+ + + | EXTERNAL LAB | | | | + +---------+ + + CBC no Differential (07/21/2017 6:53 AM PST) + + + + + + | Component | Value | Ref Range | Performed | Pathologist | | | | | At | Signature | + + + + + + | WBC | 9.6 | 3.4 - 10.8 | EXTERNAL | | | | | th/mm3 | LAB | | + + + + + + | RBC | 2.71 (L) | 3.77 - 5.28 | EXTERNAL | | | | | mil/mm3 | LAB | | + + + + + + | Hemoglobin | 8.0 (L) | 11.1 - 15.9 | EXTERNAL | | | | | g/dL | LAB | | + + + + + + | HCT, | 24.0 (L) | 34.0 - 46.6 % | EXTERNAL | | | External | | | LAB | | + + + + + + | MCV | 89 | 79 - 97 fL | EXTERNAL | | | | | | LAB | | + + + + + + | MCH | 29.5 | 26.6 - 33.0 pg | EXTERNAL | | | | | | LAB | | + + + + + + | MCHC | 33.3 | 31.5 - 35.7 | EXTERNAL | | | | | g/dL | LAB | | + + + + + + | RDW-CV | 17.2 (H) | 12.3 - 15.4 % | EXTERNAL | | | | | | LAB | | + + + + + + | Platelet | 182 | 150 - 379 | EXTERNAL | | | Count | | x10E3/uL | LAB | | + + + + + + + + | Specimen | + + | Blood specimen | | (specimen) | + + + +---------+ + + | Performing | Address | City/State/Zipcode | Phone Number | | Organization | | | | + +---------+ + + | EXTERNAL LAB | | | | + +---------+ + + Basic Metabolic Panel (07/21/2017 6:53 AM PST) + + + + + + | Component | Value | Ref Range | Performed | Pathologist | | | | | At | Signature | + + + + + + | K | 3.6 | 3.5 - 5.2 | EXTERNAL | | | | | mmol/L | LAB | | + + + + + + | CO2 | 29 | 18 - 29 mmol/L | EXTERNAL | | | | | | LAB | | + + + + + + | Creatinine | 3.28 (H) | 0.57 - 1.00 | EXTERNAL | | | | | mg/dL | LAB | | + + + + + + | Calcium | 8.0 (L) | 8.7 - 10.2 | EXTERNAL | | | | | mg/dL | LAB | | + + + + + + | BUN | 73 (H) | 6 - 20 mg/dL | EXTERNAL | | | | | | LAB | | + + + + + + | Na | 138 | 134 - 144 | EXTERNAL | | | | | mmol/L | LAB | | + + + + + + | Cl | 96 (L) | 97 - 108 mmol/L | EXTERNAL | | | | | | LAB | | + + + + + + | Glucose | 95Comment: Normal | 65 - 99 mg/dL | EXTERNAL | | | | printed is for | | LAB | | | | fasting.No normals for | | | | | | random. | | | | | | | | | | + + + + + + | Anion Gap | 13 | 5 - 19 mmol/L | EXTERNAL | | | | | | LAB | | + + + + + + + + | Specimen | + + | Blood specimen | | (specimen) | + + + +---------+ + + | Performing | Address | City/State/Zipcode | Phone Number | | Organization | | | | + +---------+ + + | EXTERNAL LAB | | | | + +---------+ + + CBC no Differential (07/20/2017 5:45 AM PST) + + + + + + | Component | Value | Ref Range | Performed | Pathologist | | | | | At | Signature | + + + + + + | WBC | 12.3 (H) | 3.4 - 10.8 | EXTERNAL | | | | | th/mm3 | LAB | | + + + + + + | RBC | 2.63 (L) | 3.77 - 5.28 | EXTERNAL | | | | | mil/mm3 | LAB | | + + + + + + | Hemoglobin | 8.0 (L) | 11.1 - 15.9 | EXTERNAL | | | | | g/dL | LAB | | + + + + + + | HCT, | 23.3 (L) | 34.0 - 46.6 % | EXTERNAL | | | External | | | LAB | | + + + + + + | MCV | 89 | 79 - 97 fL | EXTERNAL | | | | | | LAB | | + + + + + + | MCH | 30.4 | 26.6 - 33.0 pg | EXTERNAL | | | | | | LAB | | + + + + + + | MCHC | 34.3 | 31.5 - 35.7 | EXTERNAL | | | | | g/dL | LAB | | + + + + + + | RDW-CV | 17.6 (H) | 12.3 - 15.4 % | EXTERNAL | | | | | | LAB | | + + + + + + | Platelet | 177 | 150 - 379 | EXTERNAL | | | Count | | x10E3/uL | LAB | | + + + + + + + + | Specimen | + + | Blood specimen | | (specimen) | + + + +---------+ + + | Performing | Address | City/State/Zipcode | Phone Number | | Organization | | | | + +---------+ + + | EXTERNAL LAB | | | | + +---------+ + + Basic Metabolic Panel (07/20/2017 5:45 AM PST) + + + + + + | Component | Value | Ref Range | Performed | Pathologist | | | | | At | Signature | + + + + + + | K | 3.7 | 3.5 - 5.2 | EXTERNAL | | | | | mmol/L | LAB | | + + + + + + | CO2 | 29 | 18 - 29 mmol/L | EXTERNAL | | | | | | LAB | | + + + + + + | Creatinine | 3.55 (H) | 0.57 - 1.00 | EXTERNAL | | | | | mg/dL | LAB | | + + + + + + | Calcium | 8.4 (L) | 8.7 - 10.2 | EXTERNAL | | | | | mg/dL | LAB | | + + + + + + | BUN | 77 (H) | 6 - 20 mg/dL | EXTERNAL | | | | | | LAB | | + + + + + + | Na | 140 | 134 - 144 | EXTERNAL | | | | | mmol/L | LAB | | + + + + + + | Cl | 98 | 97 - 108 mmol/L | EXTERNAL | | | | | | LAB | | + + + + + + | Glucose | 88Comment: Normal | 65 - 99 mg/dL | EXTERNAL | | | | printed is for | | LAB | | | | fasting.No normals for | | | | | | random. | | | | | | | | | | + + + + + + | Anion Gap | 13 | 5 - 19 mmol/L | EXTERNAL | | | | | | LAB | | + + + + + + + + | Specimen | + + | Blood specimen | | (specimen) | + + + +---------+ + + | Performing | Address | City/State/Zipcode | Phone Number | | Organization | | | | + +---------+ + + | EXTERNAL LAB | | | | + +---------+ + + PT and PTT (07/19/2017 6:10 AM PST) + + + + + + | Component | Value | Ref Range | Performed | Pathologist | | | | | At | Signature | + + + + + + | Prothrombin | 9.4 | 8.5 - 12.2 sec | EXTERNAL | | | Time | | | LAB | | + + + + + + | INR | 0.9Comment: Recommended | ratio | EXTERNAL | | | | INR Ranges 2.0-3.0 | | LAB | | | | Thromboembolic States | | | | | | 2.5-3.5 Valves/Recur. | | | | | | Embolism | | | | | | | | | | + + + + + + | PTT | 24.5Comment: Please note | 20.0 - 32.0 sec | EXTERNAL | | | | new reference range | | LAB | | | | effective 03/08/2017. | | | | + + + + + + + + | Specimen | + + | Blood specimen | | (specimen) | + + + +---------+ + + | Performing | Address | City/State/Zipcode | Phone Number | | Organization | | | | + +---------+ + + | EXTERNAL LAB | | | | + +---------+ + + Rubeola, Mumps, Rubella Ab, IgG (07/19/2017 6:10 AM PST) + + + + + + | Component | Value | Ref Range | Performed | Pathologist | | | | | At | Signature | + + + + + + | Rubella IgG | 8.19Comment: | index | EXTERNAL | | | Ab, Quant | | | LAB | | | | | | | | | | Non-immune | | | | | | <0.90 | | | | | | | | | | | | | | | | | | Equivocal | | | | | | 0.90 - 0.99 | | | | | | | | | | | | | | | | | | Immune | | | | | | >0.99 | | | | + + + + + + | Measles | >300.0Comment: | AU/mL | EXTERNAL | | | Virus Ab | | | LAB | | | IgG | | | | | | | Negative | | | | | | <25.0 | | | | | | | | | | | | | | | | | | | | | | | | Equivocal 25.0 - 29.9 | | | | | | | | | | | | | | | | | | | | | | | | Positive | | | | | | >29.9 | | | | | | Presence of | | | | | | antibodies to Rubeola is | | | | | | presumptive evidence | | | | | | of | | | | | | immunity except when | | | | | | acute infection is | | | | | | suspected. | | | | + + + + + + | MUMPS IGG | 85.2Comment: | AU/mL | EXTERNAL | | | | | | LAB | | | | | | | | | | Negative | | | | | | <9.0 | | | | | | | | | | | | | | | | | | Equivocal | | | | | | 9.0 - 10.9 | | | | | | | | | | | | | | | | | | Positive | | | | | | >10.9 | | | | | | A positive | | | | | | result generally | | | | | | indicates past exposure | | | | | | to | | | | | | Mumps virus or previous | | | | | | vaccination. | | | | + + + + + + + + | Specimen | + + | Blood specimen | | (specimen) | + + + +---------+ + + | Performing | Address | City/State/Zipcode | Phone Number | | Organization | | | | + +---------+ + + | EXTERNAL LAB | | | | + +---------+ + + Lactate Dehydrogenase (07/19/2017 6:10 AM PST) + +---------+ + + + | Component | Value | Ref Range | Performed | Pathologist | | | | | At | Signature | + +---------+ + + + | LDH TOTAL | 275 (H) | 119 - 226 U/L | EXTERNAL | | | | | | LAB | | + +---------+ + + + + + | Specimen | + + | Blood specimen | | (specimen) | + + + +---------+ + + | Performing | Address | City/State/Zipcode | Phone Number | | Organization | | | | + +---------+ + + | EXTERNAL LAB | | | | + +---------+ + + Comprehensive Metabolic Panel (07/19/2017 6:10 AM PST) + + + + + + | Component | Value | Ref Range | Performed | Pathologist | | | | | At | Signature | + + + + + + | K | 3.6 | 3.5 - 5.2 | EXTERNAL | | | | | mmol/L | LAB | | + + + + + + | CO2 | 24 | 18 - 29 mmol/L | EXTERNAL | | | | | | LAB | | + + + + + + | Creatinine | 3.79 (H) | 0.57 - 1.00 | EXTERNAL | | | | | mg/dL | LAB | | + + + + + + | Calcium | 8.3 (L) | 8.7 - 10.2 | EXTERNAL | | | | | mg/dL | LAB | | + + + + + + | BUN | 81 (H) | 6 - 20 mg/dL | EXTERNAL | | | | | | LAB | | + + + + + + | Total | 5.6 (L) | 6.0 - 8.5 g/dL | EXTERNAL | | | Protein | | | LAB | | + + + + + + | Albumin | 3.2 (L) | 3.5 - 5.5 g/dL | EXTERNAL | | | | | | LAB | | + + + + + + | Bilirubin | 0.2 | 0.1 - 1.2 mg/dL | EXTERNAL | | | Total | | | LAB | | + + + + + + | Na | 137 | 134 - 144 | EXTERNAL | | | | | mmol/L | LAB | | + + + + + + | Cl | 93 (L) | 97 - 108 mmol/L | EXTERNAL | | | | | | LAB | | + + + + + + | Glucose | 100 (H)Comment: Normal | 65 - 99 mg/dL | EXTERNAL | | | | printed is for | | LAB | | | | fasting.No normals for | | | | | | random. | | | | | | | | | | + + + + + + | ALT | 80 (H) | 0 - 32 U/L | EXTERNAL | | | | | | LAB | | + + + + + + | AST | 47 (H) | 0 - 40 U/L | EXTERNAL | | | | | | LAB | | + + + + + + | Alk Phos | 68 | 39 - 117 U/L | EXTERNAL | | | | | | LAB | | + + + + + + | Anion Gap | 20 (H) | 5 - 19 mmol/L | EXTERNAL | | | | | | LAB | | + + + + + + | Globulin | 2.4 | 1.5 - 4.5 g/dL | EXTERNAL | | | | | | LAB | | + + + + + + | A/G Ratio | 1.3 | 1.1 - 2.5 | EXTERNAL | | | | | | LAB | | + + + + + + + + | Specimen | + + | Blood specimen | | (specimen) | + + + +---------+ + + | Performing | Address | City/State/Zipcode | Phone Number | | Organization | | | | + +---------+ + + | EXTERNAL LAB | | | | + +---------+ + + CBC no Differential (07/19/2017 6:10 AM PST) + + + + + + | Component | Value | Ref Range | Performed | Pathologist | | | | | At | Signature | + + + + + + | WBC | 14.2 (H) | 3.4 - 10.8 | EXTERNAL | | | | | th/mm3 | LAB | | + + + + + + | RBC | 2.62 (L) | 3.77 - 5.28 | EXTERNAL | | | | | mil/mm3 | LAB | | + + + + + + | Hemoglobin | 8.0 (L) | 11.1 - 15.9 | EXTERNAL | | | | | g/dL | LAB | | + + + + + + | HCT, | 23.0 (L) | 34.0 - 46.6 % | EXTERNAL | | | External | | | LAB | | + + + + + + | MCV | 88 | 79 - 97 fL | EXTERNAL | | | | | | LAB | | + + + + + + | MCH | 30.5 | 26.6 - 33.0 pg | EXTERNAL | | | | | | LAB | | + + + + + + | MCHC | 34.8 | 31.5 - 35.7 | EXTERNAL | | | | | g/dL | LAB | | + + + + + + | RDW-CV | 17.3 (H) | 12.3 - 15.4 % | EXTERNAL | | | | | | LAB | | + + + + + + | Platelet | 164 | 150 - 379 | EXTERNAL | | | Count | | x10E3/uL | LAB | | + + + + + + + + | Specimen | + + | Blood specimen | | (specimen) | + + + +---------+ + + | Performing | Address | City/State/Zipcode | Phone Number | | Organization | | | | + +---------+ + + | EXTERNAL LAB | | | | + +---------+ + + Iron Profile (07/18/2017 3:20 PM PST) + +--------+ + + + | Component | Value | Ref Range | Performed | Pathologist | | | | | At | Signature | + +--------+ + + + | Iron | 46.0 | 27 - 159 ug/dL | EXTERNAL | | | | | | LAB | | + +--------+ + + + | TIBC | 339 | 250 - 450 ug/dL | EXTERNAL | | | | | | LAB | | + +--------+ + + + | % | 14 (L) | 15 - 55 %sat | EXTERNAL | | | SATURATION | | | LAB | | + +--------+ + + + | UIBC | 293 | 131 - 425 ug/dL | EXTERNAL | | | | | | LAB | | + +--------+ + + + | FERRITIN | 128 | 15 - 150 ng/mL | EXTERNAL | | | | | | LAB | | + +--------+ + + + + + | Specimen | + + | Blood specimen | | (specimen) | + + + +---------+ + + | Performing | Address | City/State/Zipcode | Phone Number | | Organization | | | | + +---------+ + + | EXTERNAL LAB | | | | + +---------+ + + Vitamin B-12 and Folate (07/18/2017 3:20 PM PST) + + + + + + | Component | Value | Ref Range | Performed | Pathologist | | | | | At | Signature | + + + + + + | FOLATE | 16.5Comment: A serum | ng/mL | EXTERNAL | | | | folate concentration of | | LAB | | | | less than 3.1 ng/mL | | | | | | isconsidered to | | | | | | represent clinical | | | | | | deficiency. | | | | + + + + + + | Vitamin B12 | 674 | 232 - 1245 | EXTERNAL | | | | | pg/mL | LAB | | + + + + + + + + | Specimen | + + | Blood specimen | | (specimen) | + + + +---------+ + + | Performing | Address | City/State/Zipcode | Phone Number | | Organization | | | | + +---------+ + + | EXTERNAL LAB | | | | + +---------+ + + TSH (07/18/2017 3:20 PM PST) + +-------+ + + + | Component | Value | Ref Range | Performed | Pathologist | | | | | At | Signature | + +-------+ + + + | TSH | 1.800 | 0.450 - 4.500 | EXTERNAL | | | | | uIU/mL | LAB | | + +-------+ + + + + + | Specimen | + + | Blood specimen | | (specimen) | + + + +---------+ + + | Performing | Address | City/State/Zipcode | Phone Number | | Organization | | | | + +---------+ + + | EXTERNAL LAB | | | | + +---------+ + + Echo Limited (07/18/2017 11:59 AM PST) + + | Specimen | + + | | + + + + + | Narrative | Performed At | + + + | [address] [address] | | | Adult Transthoracic | | | Echocardiogram Report Patient Name: AUREA PEREZ Pt. | | | Exam | | | Date: 07/18/2017 : 1980 Age: 37 years | | | Gender: F Ht: 65.98 in Wt: 140.65 lb BSA: | | | 1.72 m BP: 135 / 78 mmHg Location: Inpatient 505 | | | Referring Physician: KAMILLA LOPEZ cc: , , Diagnosing Physician: | | | [employer] Manager: Krys Grewal [facility] | | | Procedure performed: Limited Echocardiogram - [id number] RAD#[id number] , | | | Color Flow Imaging - [id number] and | | | Limited Cardiac Doppler - [id number] Study Details: The images | | | are of adequate diagnostic quality. The patient | | | is awake. Patient EKG shows sinus rhythm. | | | Summary: 1. Low normal left ventricular systolic function. The | | | calculated ejection fraction is 52.0 %. The left ventricular size is | | | normal. Mild left ventricular hypertrophy. 2. Trileaflet and | | | sclerotic aortic valve. No aortic valve stenosis. Moderate aortic | | | valve regurgitation. 3. Moderate mitral regurgitation. Mild | | | thickening of the mitral anterior and posterior leaflets. 4. | | | Moderate tricuspid regurgitation. 5. Moderately elevated pulmonary | | | artery systolic pressure estimated at 46.6 mmHg. Findings: | | | Left Ventricle: The left ventricular size is normal. There is mild | | | left ventricular hypertrophy. The calculated ejection fraction, using | | | the apical biplane method of disks, is 52.0 %. There is global low | | | normal left ventricular systolic function. The visually estimated EF | | | is 50%. Aortic Valve: The aortic valve is trileaflet and | | | sclerotic. No degree of aortic valve stenosis is present. There is | | | moderate aortic valve regurgitation. Mitral Valve: The anterior | | | and posterior leaflets are mildly thickened. There is moderate mitral | | | valve regurgitation. Pulmonary venous flow is normal. Using PISA | | | method the ERO area was calculated to be 21 mm . Using the PISA | | | method the MR regurgitant volume was calculated to be 44 ml. | | | Tricuspid Valve: The tricuspid valve leaflets are normal in | | | appearance. No evidence of tricuspid valve stenosis. Moderate | | | tricuspid regurgitation is present. The flow in the hepatic veins is | | | normal during ventricular systole. Pericardium: No pericardial | | | effusion is seen. Pulmonary Artery: The tricuspid regurgitant | | | velocity is 2.81 m/s, and with an assumed right atrial pressure of 15 | | | mmHg, the estimated pulmonary artery systolic pressure is | | | moderately elevated at 46.6 mmHg. Venous: The inferior vena cava | | | is dilated and exhibits less than 50% inspiratory change. [facility] | | | Neela Weldon at | | | 1:28:09 PM. 2D / M-Mode Measurements 2D | | | Normal IVSd 12.0 mm M=< 11mm F=< 10 | | | mm LVED 55.0 mm Less than 56mm LVES 45.0 mm Variable | | | LVPWd 11.0 mm M=< 11mm F=< 10 mm FS | | | 18.2 % 26-35% EF 52.0 % Greater than 50% | | | Aorta Measurements: Doppler Evaluation Aortic Valve | | | Normal Mitral Valve Normal | | | Aortic Insufficiency: moderate MV Regurgitation: moderate | | | AI P1/2t 389 msec MR Volume: | | | 43.6 ml Less than 30ml LVOT: | | | MR Eff MARCOS: 0.2 cm Tricuspid Valve | | | Normal TR Vmax 2.81 m/s RA Pressure | | | 15 mmHg 5-10mmHg PAP 46.6 mmHg 18-25mmHg | | | Final | | + + + + + | Procedure Note | + + | Rickie Flannery Conversion - 12/08/2018 12:16 AM [facility] | | [address] | | [place] [address] | | | | | | | | Adult Transthoracic Echocardiogram Report | | | | | | Patient Name: AUREA PEREZ Pt. | | Exam Date: 07/18/2017 | | : 1980 Age: 37 years Gender: F | | Ht: 65.98 in Wt: 140.65 lb BSA: 1.72 m | | BP: 135 / 78 mmHg Location: Inpatient 505 | | | | | | Referring Physician: KAMILLA LOPEZ cc: , , | | Diagnosing Physician: Whitney Weldon | | Warehouse Logistics Manager: Krys Grewal [facility] | | Procedure performed: Limited Echocardiogram - 19751 RAD#[id number] , Color Flow | | Imaging - 46708 and Limited Cardiac Doppler - 75281 | | Study Details: The images are of adequate diagnostic quality. The | | patient | | is awake. Patient EKG shows sinus rhythm. | | | | | | | | Summary: | | 1. Low normal left ventricular systolic function. The calculated ejection | | fraction is 52.0 %. The left ventricular size is normal. Mild left | | ventricular hypertrophy. | | 2. Trileaflet and sclerotic aortic valve. No aortic valve stenosis. | | Moderate aortic valve regurgitation. | | 3. Moderate mitral regurgitation. Mild thickening of the mitral anterior | | and posterior leaflets. | | 4. Moderate tricuspid regurgitation. | | 5. Moderately elevated pulmonary artery systolic pressure estimated at | | 46.6 mmHg. | | | | | | Findings: | | Left Ventricle: The left ventricular size is normal. There is mild left | | ventricular hypertrophy. The calculated ejection fraction, using the apical | | biplane method of disks, is 52.0 %. There is global low normal left | | ventricular systolic function. The visually estimated EF is 50%. | | | | Aortic Valve: The aortic valve is trileaflet and sclerotic. No degree of | | aortic valve stenosis is present. There is moderate aortic valve | | regurgitation. | | | | Mitral Valve: The anterior and posterior leaflets are mildly thickened. | | There is moderate mitral valve regurgitation. Pulmonary venous flow is | | normal. Using PISA method the ERO area was calculated to be 21 mm . Using | | the PISA method the MR regurgitant volume was calculated to be 44 ml. | | | | Tricuspid Valve: The tricuspid valve leaflets are normal in appearance. No | | evidence of tricuspid valve stenosis. Moderate tricuspid regurgitation is | | present. The flow in the hepatic veins is normal during ventricular | | systole. | | | | Pericardium: No pericardial effusion is seen. | | | | Pulmonary Artery: The tricuspid regurgitant velocity is 2.81 m/s, and with | | an assumed right atrial pressure of 15 mmHg, the estimated pulmonary artery | | systolic pressure is moderately elevated at 46.6 mmHg. | | | | Venous: The inferior vena cava is dilated and exhibits less than 50% | | inspiratory change. | | | | Whitney Weldon | | . | | | | 2D / M-Mode Measurements | | 2D Normal | | IVSd 12.0 mm M=< 11mm | | F=< 10 mm | | LVED 55.0 mm Less than 56mm | | LVES 45.0 mm Variable | | LVPWd 11.0 mm M=< 11mm | | F=< 10 mm | | FS 18.2 % 26-35% | | EF 52.0 % Greater than 50% | | | | | | Aorta Measurements: | | | | Doppler Evaluation | | Aortic Valve Normal Mitral Valve Normal | | Aortic Insufficiency: moderate MV Regurgitation: moderate | | AI P1/2t 389 msec MR Volume: 43.6 ml Less than | | 30ml | | LVOT: MR Eff MARCOS: 0.2 cm | | | | | | Tricuspid Valve Normal | | TR Vmax 2.81 m/s | | RA Pressure 15 mmHg 5-10mmHg | | PAP 46.6 mmHg 18-25mmHg | | | | | | | | | | Final | + + US Pelvis Transabdominal (07/18/2017 9:53 AM PST) + + | Specimen | + + | | + + + + + | Narrative | Performed At | + + + | Exam Type Pelvic Complete Ultrasound. RLQ Bulge s/p | | | Vaginal Delivery @ 21wks Admitted on 07/16/2017 from OSH for renal | | | failure, elevated liver enzymes, cardiomyopathy, and respiratory | | | failure, now undergoing termination of . Comparison | | | None. History ======== OB History | | | : 6. Para: 4. Risk Factors AMA. Method | | | ======= Transabdominal. View: Transabdominal evaluation was | | | performed to evaluate the uterus, adnexa and lower abdomen. No | | | transvaginal ultrasound was performed at this time. Uterus | | | ======= Visualized. Long 12.1 cm x ap 9.9 cm x tr 11.5 cm. Vol 721.0 | | | CC. Overall uterine length is 16.3 cm which includes the cervix; | | | the above length and volume exclude the cervix Position: Anteverted | | | Endometrial thickness, total 12.2 mm. Right Ovary | | | Not visualized. Left Ovary Not visualized. | | | Abnormal Findings Mild right sided ascites with | | | fluid visualized in the RLQ in the area of bulge and around the | | | liver. Air filled bowel also in area of bulging. IMPRESSION | | | 1. Mild intraabdominal ascites located in the right | | | abdomen and pelvis, including the area of right lower quadrant | | | abdominal bulge. No masses or hemorrhage. 2. Normal appearing post | | | uterus. [facility] This facility is | | | accredited by the [employer]. Thank you for | | | this referral. Dictated by: KEREN LEIGH Dictated: | | | 07/18/2017 12:05 PM Job: [id number] | | + + + + + | Procedure Note | + + | Prudencio, Rad Conversion - 11/14/2018 3:57 PM PDT Exam Type | | | | Pelvic Complete Ultrasound. | | RLQ Bulge | | s/p Vaginal Delivery @ 21wks | | Admitted on 07/16/2017 from OSH for renal failure, elevated liver | | enzymes, cardiomyopathy, and respiratory failure, now undergoing | | termination of . | | | | Comparison | | | | None. | | | | History | | ======== | | OB History : 6. Para: 4. | | Risk Factors AMA. | | | | Method | | ======= | | Transabdominal. View: Transabdominal evaluation was performed to | | evaluate the uterus, adnexa and lower abdomen. No transvaginal | | ultrasound was performed at this time. | | | | Uterus | | ======= | | Visualized. Long 12.1 cm x ap 9.9 cm x tr 11.5 cm. Vol 721.0 CC. | | | | Overall uterine length is 16.3 cm which includes the cervix; the | | above length and volume exclude the cervix | | Position: Anteverted | | Endometrial thickness, total 12.2 mm. | | | | Right Ovary | | | | Not visualized. | | | | Left Ovary | | | | Not visualized. | | | | Abnormal Findings | | | | Mild right sided ascites with fluid visualized in the RLQ in the area | | of bulge and around the liver. Air filled bowel also in area of | | bulging. | | | | IMPRESSION | | | | 1. Mild intraabdominal ascites located in the right abdomen and | | pelvis, including the area of right lower quadrant abdominal bulge. | | No masses or hemorrhage. | | 2. Normal appearing post uterus. | | | | | | [facility] | | | | This facility is accredited by the [employer]. | | | | Thank you for this referral. | | | | | | | | Dictated by: KEREN LEIGH | | Dictated: 07/18/2017 12:05 PM | | Job: [id number] | + + CBC no Differential (07/18/2017 5:45 AM PST) + + + + + + | Component | Value | Ref Range | Performed | Pathologist | | | | | At | Signature | + + + + + + | WBC | 10.2 | 3.4 - 10.8 | EXTERNAL | | | | | th/mm3 | LAB | | + + + + + + | RBC | 2.43 (L) | 3.77 - 5.28 | EXTERNAL | | | | | mil/mm3 | LAB | | + + + + + + | Hemoglobin | 7.2 (L) | 11.1 - 15.9 | EXTERNAL | | | | | g/dL | LAB | | + + + + + + | HCT, | 21.5 (LL)Comment: RESULT | 34.0 - 46.6 % | EXTERNAL | | | External | CALLED; READ BACK BY: | | LAB | | | | PETERSON Hart,6E @ 0816 | | | | | | 07/18/17 AFIA. | | | | + + + + + + | MCV | 89 | 79 - 97 fL | EXTERNAL | | | | | | LAB | | + + + + + + | MCH | 29.6 | 26.6 - 33.0 pg | EXTERNAL | | | | | | LAB | | + + + + + + | MCHC | 33.5 | 31.5 - 35.7 | EXTERNAL | | | | | g/dL | LAB | | + + + + + + | RDW-CV | 17.8 (H) | 12.3 - 15.4 % | EXTERNAL | | | | | | LAB | | + + + + + + | Platelet | 154 | 150 - 379 | EXTERNAL | | | Count | | x10E3/uL | LAB | | + + + + + + + + | Specimen | + + | Blood specimen | | (specimen) | + + + +---------+ + + | Performing | Address | City/State/Zipcode | Phone Number | | Organization | | | | + +---------+ + + | EXTERNAL LAB | | | | + +---------+ + + Hepatic Function Panel (07/18/2017 5:45 AM PST) + +---------+ + + + | Component | Value | Ref Range | Performed | Pathologist | | | | | At | Signature | + +---------+ + + + | Total | 5.3 (L) | 6.0 - 8.5 g/dL | EXTERNAL | | | Protein | | | LAB | | + +---------+ + + + | Albumin | 3.4 (L) | 3.5 - 5.5 g/dL | EXTERNAL | | | | | | LAB | | + +---------+ + + + | Bilirubin | 0.3 | 0.1 - 1.2 mg/dL | EXTERNAL | | | Total | | | LAB | | + +---------+ + + + | Bilirubin | <0.2 | 0 - 0.4 mg/dL | EXTERNAL | | | Direct | | | LAB | | + +---------+ + + + | ALT | 80 (H) | 0 - 32 U/L | EXTERNAL | | | | | | LAB | | + +---------+ + + + | AST | 76 (H) | 0 - 40 U/L | EXTERNAL | | | | | | LAB | | + +---------+ + + + | Alk Phos | 63 | 39 - 117 U/L | EXTERNAL | | | | | | LAB | | + +---------+ + + + + + | Specimen | + + | Blood specimen | | (specimen) | + + + +---------+ + + | Performing | Address | City/State/Zipcode | Phone Number | | Organization | | | | + +---------+ + + | EXTERNAL LAB | | | | + +---------+ + + Basic Metabolic Panel (07/18/2017 5:45 AM PST) + + + + + + | Component | Value | Ref Range | Performed | Pathologist | | | | | At | Signature | + + + + + + | K | 3.6 | 3.5 - 5.2 | EXTERNAL | | | | | mmol/L | LAB | | + + + + + + | CO2 | 24 | 18 - 29 mmol/L | EXTERNAL | | | | | | LAB | | + + + + + + | Creatinine | 4.21 (H) | 0.57 - 1.00 | EXTERNAL | | | | | mg/dL | LAB | | + + + + + + | Calcium | 8.0 (L) | 8.7 - 10.2 | EXTERNAL | | | | | mg/dL | LAB | | + + + + + + | BUN | 82 (H) | 6 - 20 mg/dL | EXTERNAL | | | | | | LAB | | + + + + + + | Na | 133 (L) | 134 - 144 | EXTERNAL | | | | | mmol/L | LAB | | + + + + + + | Cl | 92 (L) | 97 - 108 mmol/L | EXTERNAL | | | | | | LAB | | + + + + + + | Glucose | 90Comment: Normal | 65 - 99 mg/dL | EXTERNAL | | | | printed is for | | LAB | | | | fasting.No normals for | | | | | | random. | | | | | | | | | | + + + + + + | Anion Gap | 17 | 5 - 19 mmol/L | EXTERNAL | | | | | | LAB | | + + + + + + + + | Specimen | + + | Blood specimen | | (specimen) | + + + +---------+ + + | Performing | Address | City/State/Zipcode | Phone Number | | Organization | | | | + +---------+ + + | EXTERNAL LAB | | | | + +---------+ + + PT and PTT (07/18/2017 12:06 AM PST) + + + + + + | Component | Value | Ref Range | Performed | Pathologist | | | | | At | Signature | + + + + + + | Prothrombin | 9.9 | 8.5 - 12.2 sec | EXTERNAL | | | Time | | | LAB | | + + + + + + | INR | 1.0Comment: Recommended | ratio | EXTERNAL | | | | INR Ranges 2.0-3.0 | | LAB | | | | Thromboembolic States | | | | | | 2.5-3.5 Valves/Recur. | | | | | | Embolism | | | | | | | | | | + + + + + + | PTT | 23.8Comment: Please note | 20.0 - 32.0 sec | EXTERNAL | | | | new reference range | | LAB | | | | effective 03/08/2017. | | | | + + + + + + + + | Specimen | + + | Blood specimen | | (specimen) | + + + +---------+ + + | Performing | Address | City/State/Zipcode | Phone Number | | Organization | | | | + +---------+ + + | EXTERNAL LAB | | | | + +---------+ + + Magnesium (07/18/2017 12:06 AM PST) + +-------+ + + + | Component | Value | Ref Range | Performed | Pathologist | | | | | At | Signature | + +-------+ + + + | Magnesium | 2.04 | 1.60 - 2.30 | EXTERNAL | | | | | mg/dL | LAB | | + +-------+ + + + + + | Specimen | + + | Blood specimen | | (specimen) | + + + +---------+ + + | Performing | Address | City/State/Zipcode | Phone Number | | Organization | | | | + +---------+ + + | EXTERNAL LAB | | | | + +---------+ + + HISTORICAL LAB PANEL RESULT (07/18/2017 12:06 AM PST) + + + + + + | Component | Value | Ref Range | Performed | Pathologist | | | | | At | Signature | + + + + + + | WBC | 10.4 | 3.4 - 10.8 | EXTERNAL | | | | | th/mm3 | LAB | | + + + + + + | RBC | 2.45 (L) | 3.77 - 5.28 | EXTERNAL | | | | | mil/mm3 | LAB | | + + + + + + | Hemoglobin | 7.2 (L) | 11.1 - 15.9 | EXTERNAL | | | | | g/dL | LAB | | + + + + + + | HCT, | 21.6 (LL)Comment: RESULT | 34.0 - 46.6 % | EXTERNAL | | | External | CALLED; READ BACK | | LAB | | | | BY:RUMA Joiner @0040 | | | | | | [id number] | | | | + + + + + + | MCV | 88 | 79 - 97 fL | EXTERNAL | | | | | | LAB | | + + + + + + | MCH | 29.4 | 26.6 - 33.0 pg | EXTERNAL | | | | | | LAB | | + + + + + + | MCHC | 33.3 | 31.5 - 35.7 | EXTERNAL | | | | | g/dL | LAB | | + + + + + + | RDW-CV | 18.2 (H) | 12.3 - 15.4 % | EXTERNAL | | | | | | LAB | | + + + + + + | Platelet | 146 (L) | 150 - 379 | EXTERNAL | | | Count | | x10E3/uL | LAB | | + + + + + + | Absolute | 7.92 (H) | 1.4 - 7.0 | EXTERNAL | | | Neutrophils | | th/mm3 | LAB | | + + + + + + | Absolute | 1.65 | 0.7 - 3.1 | EXTERNAL | | | Lymphocytes | | th/mm3 | LAB | | + + + + + + | Absolute | 0.58 | 0.1 - 0.9 | EXTERNAL | | | Monocytes | | th/mm3 | LAB | | + + + + + + | Absolute | 0.03 | 0.0 - 0.4 | EXTERNAL | | | Eosinophils | | th/mm3 | LAB | | + + + + + + | Absolute | 0.01 | 0.0 - 0.2 | EXTERNAL | | | Basophils | | th/mm3 | LAB | | + + + + + + | Absolute | 0.18Comment: (An | th/mm3 | EXTERNAL | | | Immature | elevated percentage of | | LAB | | | Granulocyte | Immature Granulocytes | | | | | s | has not been foundto be | | | | | | clinically significant | | | | | | as a sole clinical | | | | | | predictor of | | | | | | disease.Does NOT include | | | | | | bands or blast cells. | | | | | | | | | | | | associatedphysiological | | | | | | leukocytosis may also | | | | | | show increased | | | | | | immaturegranulocytes | | | | | | without clinical | | | | | | significance.) | | | | + + + + + + | % nRBC | 0.0 | 0 - 0 /100 WBC | EXTERNAL | | | | | | LAB | | + + + + + + | K | 3.6 | 3.5 - 5.2 | EXTERNAL | | | | | mmol/L | LAB | | + + + + + + | CO2 | 24 | 18 - 29 mmol/L | EXTERNAL | | | | | | LAB | | + + + + + + | Creatinine | 4.32 (H) | 0.57 - 1.00 | EXTERNAL | | | | | mg/dL | LAB | | + + + + + + | BUN | 80 (H) | 6 - 20 mg/dL | EXTERNAL | | | | | | LAB | | + + + + + + | Uric Acid, | 9.7 (H)Comment: | 2.5 - 7.1 mg/dL | EXTERNAL | | | Serum | Therapeutic target for | | LAB | | | | gout patients: <6.0 | | | | | | mg/dL | | | | + + + + + + | Na | 133 (L) | 134 - 144 | EXTERNAL | | | | | mmol/L | LAB | | + + + + + + | Cl | 93 (L) | 97 - 108 mmol/L | EXTERNAL | | | | | | LAB | | + + + + + + | ALT | 64 (H) | 0 - 32 U/L | EXTERNAL | | | | | | LAB | | + + + + + + | AST | 57 (H) | 0 - 40 U/L | EXTERNAL | | | | | | LAB | | + + + + + + + + | Specimen | + + | Blood specimen | | (specimen) | + + + +---------+ + + | Performing | Address | City/State/Zipcode | Phone Number | | Organization | | | | + +---------+ + + | EXTERNAL LAB | | | | + +---------+ + + Surgical Pathology Exam (07/17/2017 12:26 PM PST) + + + + + + | Component | Value | Ref Range | Performed | Pathologist | | | | | At | Signature | + + + + + + | SURGICAL | CASE: [id number]: | | EXTERNAL | | | | Aurea Perez | | LAB | | | | Pathology Report | | | | | | [id number] FINAL | | | | | | DIAGNOSIS: Placenta, | | | | | | gestational age: 21 | | | | | | weeks 5 days, | | | | | | delivery:Second | | | | | | trimester 93 gram | | | | | | placenta, weight less | | | | | | than 10th percentile | | | | | | forgestational | | | | | | age.Trivascular | | | | | | umbilical cord and | | | | | | membrane without | | | | | | significant | | | | | | pathologicabnormality.Pl | | | | | | acenta parenchyma | | | | | | without significant | | | | | | pathologic | | | | | | abnormality.__ __ __ | | | | | | CLINICAL INFORMATION:G6 | | | | | | P5, 21 weeks 5 days, | | | | | | hypertensive emergency, | | | | | | acute renal | | | | | | failure,cardiomyopathy, | | | | | | anemia, substance use | | | | | | disorder. GROSS | | | | | | DESCRIPTION:Specimen: | | | | | | Received fresh, labeled | | | | | | "Perez, Aurea", | | | | | | "placenta" | | | | | | perrequisition.Weight | | | | | | Disc dimensions: 93 | | | | | | grams (below the 10th | | | | | | percentile), 12 x 11x | | | | | | 1.3 cm.Umbilical cord: | | | | | | Three vessels, | | | | | | paramarginally inserted | | | | | | 2 cm from thenearest | | | | | | placental edge, 16.4 cm | | | | | | long x up to 0.9 cm in | | | | | | diameter,slightly coiled | | | | | | with a left | | | | | | twist.Membranes: | | | | | | Circummarginally | | | | | | inserted, pink-iniguez and | | | | | | diffusely opaque. | | | | | | surface: Blue-veliz with | | | | | | prominent | | | | | | vasculature.Maternal | | | | | | surface: Diffusely | | | | | | disrupted, questionably | | | | | | complete with focalareas | | | | | | of adherent blood clot | | | | | | (less than 10% of the | | | | | | total surface).Placental | | | | | | parenchyma: [place]-iniguez, | | | | | | spongy and pale without | | | | | | masses orlesions | | | | | | identified.Other | | | | | | abnormalities: None | | | | | | identified.Summary of | | | | | | sections: A1 - membrane | | | | | | roll and umbilical cord; | | | | | | A2-A3 -full-thickness | | | | | | placenta. (jlw/sn) | | | | | | Norma Luther MD. | | | | | | Electronically signed | | | | | | 07/21/2017 13:25 (206) | | | | | | [id number] at | | | | | | [facility], | | | | | | [facility] | | | | | | [address] | | | | | | [address] CLIA#: | | | | | | [id number] | | | | | | 5Microscopic: Unless | | | | | | otherwise specified, a | | | | | | microscopic exam has | | | | | | been performed. | | | | + + + + + + + + | Specimen | + + | | + + + +---------+ + + | Performing | Address | City/State/Zipcode | Phone Number | | Organization | | | | + +---------+ + + | EXTERNAL LAB | | | | + +---------+ + + Lactate Dehydrogenase (07/17/2017 9:52 AM PST) + +---------+ + + + | Component | Value | Ref Range | Performed | Pathologist | | | | | At | Signature | + +---------+ + + + | LDH TOTAL | 321 (H) | 119 - 226 U/L | EXTERNAL | | | | | | LAB | | + +---------+ + + + + + | Specimen | + + | | + + + +---------+ + + | Performing | Address | City/State/Zipcode | Phone Number | | Organization | | | | + +---------+ + + | EXTERNAL LAB | | | | + +---------+ + + Fibrinogen (07/17/2017 9:52 AM PST) + +-------+ + + + | Component | Value | Ref Range | Performed | Pathologist | | | | | At | Signature | + +-------+ + + + | Fibrinogen | 173 | 150 - 400 mg/dL | EXTERNAL | | | | | | LAB | | + +-------+ + + + + + | Specimen | + + | Blood specimen | | (specimen) | + + + +---------+ + + | Performing | Address | City/State/Zipcode | Phone Number | | Organization | | | | + +---------+ + + | EXTERNAL LAB | | | | + +---------+ + + PT and PTT (07/17/2017 9:52 AM PST) + + + + + + | Component | Value | Ref Range | Performed | Pathologist | | | | | At | Signature | + + + + + + | Prothrombin | 9.9 | 8.5 - 12.2 sec | EXTERNAL | | | Time | | | LAB | | + + + + + + | INR | 1.0Comment: Recommended | ratio | EXTERNAL | | | | INR Ranges 2.0-3.0 | | LAB | | | | Thromboembolic States | | | | | | 2.5-3.5 Valves/Recur. | | | | | | Embolism | | | | | | | | | | + + + + + + | PTT | 23.2Comment: Please note | 20.0 - 32.0 sec | EXTERNAL | | | | new reference range | | LAB | | | | effective 03/08/2017. | | | | + + + + + + + + | Specimen | + + | Blood specimen | | (specimen) | + + + +---------+ + + | Performing | Address | City/State/Zipcode | Phone Number | | Organization | | | | + +---------+ + + | EXTERNAL LAB | | | | + +---------+ + + Magnesium (07/17/2017 9:52 AM PST) + +-------+ + + + | Component | Value | Ref Range | Performed | Pathologist | | | | | At | Signature | + +-------+ + + + | Magnesium | 2.23 | 1.60 - 2.30 | EXTERNAL | | | | | mg/dL | LAB | | + +-------+ + + + + + | Specimen | + + | Blood specimen | | (specimen) | + + + +---------+ + + | Performing | Address | City/State/Zipcode | Phone Number | | Organization | | | | + +---------+ + + | EXTERNAL LAB | | | | + +---------+ + + HISTORICAL LAB PANEL RESULT (07/17/2017 9:52 AM PST) + + + + + + | Component | Value | Ref Range | Performed | Pathologist | | | | | At | Signature | + + + + + + | WBC | 13.4 (H) | 3.4 - 10.8 | EXTERNAL | | | | | th/mm3 | LAB | | + + + + + + | RBC | 2.78 (L) | 3.77 - 5.28 | EXTERNAL | | | | | mil/mm3 | LAB | | + + + + + + | Hemoglobin | 8.4 (L) | 11.1 - 15.9 | EXTERNAL | | | | | g/dL | LAB | | + + + + + + | HCT, | 25.0 (L) | 34.0 - 46.6 % | EXTERNAL | | | External | | | LAB | | + + + + + + | MCV | 90 | 79 - 97 fL | EXTERNAL | | | | | | LAB | | + + + + + + | MCH | 30.2 | 26.6 - 33.0 pg | EXTERNAL | | | | | | LAB | | + + + + + + | MCHC | 33.6 | 31.5 - 35.7 | EXTERNAL | | | | | g/dL | LAB | | + + + + + + | RDW-CV | 18.8 (H) | 12.3 - 15.4 % | EXTERNAL | | | | | | LAB | | + + + + + + | Platelet | 149 (L) | 150 - 379 | EXTERNAL | | | Count | | x10E3/uL | LAB | | + + + + + + | Absolute | 10.95 (H) | 1.4 - 7.0 | EXTERNAL | | | Neutrophils | | th/mm3 | LAB | | + + + + + + | Absolute | 1.41 | 0.7 - 3.1 | EXTERNAL | | | Lymphocytes | | th/mm3 | LAB | | + + + + + + | Absolute | 0.78 | 0.1 - 0.9 | EXTERNAL | | | Monocytes | | th/mm3 | LAB | | + + + + + + | Absolute | 0.00 | 0.0 - 0.4 | EXTERNAL | | | Eosinophils | | th/mm3 | LAB | | + + + + + + | Absolute | 0.02 | 0.0 - 0.2 | EXTERNAL | | | Basophils | | th/mm3 | LAB | | + + + + + + | Absolute | 0.28Comment: (An | th/mm3 | EXTERNAL | | | Immature | elevated percentage of | | LAB | | | Granulocyte | Immature Granulocytes | | | | | s | has not been foundto be | | | | | | clinically significant | | | | | | as a sole clinical | | | | | | predictor of | | | | | | disease.Does NOT include | | | | | | bands or blast cells. | | | | | | | | | | | | associatedphysiological | | | | | | leukocytosis may also | | | | | | show increased | | | | | | immaturegranulocytes | | | | | | without clinical | | | | | | significance.) | | | | + + + + + + | % nRBC | 0.3 (H) | 0 - 0 /100 WBC | EXTERNAL | | | | | | LAB | | + + + + + + | K | 3.9 | 3.5 - 5.2 | EXTERNAL | | | | | mmol/L | LAB | | + + + + + + | CO2 | 24 | 18 - 29 mmol/L | EXTERNAL | | | | | | LAB | | + + + + + + | Creatinine | 4.38 (H) | 0.57 - 1.00 | EXTERNAL | | | | | mg/dL | LAB | | + + + + + + | BUN | 83 (H) | 6 - 20 mg/dL | EXTERNAL | | | | | | LAB | | + + + + + + | Uric Acid, | 10.2 (H)Comment: | 2.5 - 7.1 mg/dL | EXTERNAL | | | Serum | Therapeutic target for | | LAB | | | | gout patients: <6.0 | | | | | | mg/dL | | | | + + + + + + | Na | 135 | 134 - 144 | EXTERNAL | | | | | mmol/L | LAB | | + + + + + + | Cl | 92 (L) | 97 - 108 mmol/L | EXTERNAL | | | | | | LAB | | + + + + + + | ALT | 65 (H) | 0 - 32 U/L | EXTERNAL | | | | | | LAB | | + + + + + + | AST | 69 (H) | 0 - 40 U/L | EXTERNAL | | | | | | LAB | | + + + + + + + + | Specimen | + + | Blood specimen | | (specimen) | + + + +---------+ + + | Performing | Address | City/State/Zipcode | Phone Number | | Organization | | | | + +---------+ + + | EXTERNAL LAB | | | | + +---------+ + + XR Chest 1 Vw (07/17/2017 2:15 AM PST) + + | Specimen | + + | | + + + + + | Impressions | Performed At | + + + | No infiltrates Right-sided catheters as described above. | | | No complications. Dictated by: AMBER RIZVI | | | Dictated: 07/17/2017 2:23 AM Job: [id number] | | + + + + + + | Narrative | Performed At | + + + | PROCEDURE: XR CHEST 1 VIEW CLINICAL INDICATION: Line placement | | | PICC line and IJ from outside facility. TECHNIQUE: One view | | | COMPARISONS: None DATE: 07/17/2017 2:22 AM FINDINGS: | | | Lines and tubes: There is a right jugular vein catheter with the tip | | | in the superior vena cava. There is another catheter from the right | | | axillary approach and the tip is in the superior vena cava. Lungs: | | | Clear Pleura: No effusion or thickening. Heart, mediastinum | | | and nikki: Normal Bones and soft tissues: Normal | | + + + + + | Procedure Note | + + | Prudencio, Rad Conversion - 11/14/2018 3:57 PM PDT PROCEDURE: XR CHEST 1 VIEW | | | | CLINICAL INDICATION: Line placement | | PICC line and IJ from outside facility. | | | | TECHNIQUE: One view | | | | COMPARISONS: None | | | | DATE: 07/17/2017 2:22 AM | | | | | | FINDINGS: | | | | Lines and tubes: There is a right jugular vein catheter with the tip | | in the superior vena cava. There is another catheter from the right | | axillary approach and the tip is in the superior vena cava. | | | | Lungs: Clear | | | | Pleura: No effusion or thickening. | | | | Heart, mediastinum and nikki: Normal | | | | Bones and soft tissues: Normal | | | | | | IMPRESSION: | | | | | | No infiltrates | | | | Right-sided catheters as described above. No complications. | | | | | | | | | | Dictated by: AMBER RIZVI | | Dictated: 07/17/2017 2:23 AM | | Job: [id number] | + + Lactate Dehydrogenase (07/16/2017 10:01 PM PST) + +---------+ + + + | Component | Value | Ref Range | Performed | Pathologist | | | | | At | Signature | + +---------+ + + + | LDH TOTAL | 263 (H) | 119 - 226 U/L | EXTERNAL | | | | | | LAB | | + +---------+ + + + + + | Specimen | + + | Blood specimen | | (specimen) | + + + +---------+ + + | Performing | Address | City/State/Zipcode | Phone Number | | Organization | | | | + +---------+ + + | EXTERNAL LAB | | | | + +---------+ + + Calcium, Ionized (07/16/2017 10:01 PM PST) + + + + + + | Component | Value | Ref Range | Performed | Pathologist | | | | | At | Signature | + + + + + + | Calcium, | 1.07 (L) | 1.17 - 1.32 | EXTERNAL | | | Ionized | | mmol/L | LAB | | + + + + + + + + | Specimen | + + | Blood specimen | | (specimen) | + + + +---------+ + + | Performing | Address | City/State/Zipcode | Phone Number | | Organization | | | | + +---------+ + + | EXTERNAL LAB | | | | + +---------+ + + PT and PTT (07/16/2017 10:01 PM PST) + + + + + + | Component | Value | Ref Range | Performed | Pathologist | | | | | At | Signature | + + + + + + | Prothrombin | 10.1 | 8.5 - 12.2 sec | EXTERNAL | | | Time | | | LAB | | + + + + + + | INR | 1.0Comment: Recommended | ratio | EXTERNAL | | | | INR Ranges 2.0-3.0 | | LAB | | | | Thromboembolic States | | | | | | 2.5-3.5 Valves/Recur. | | | | | | Embolism | | | | | | | | | | + + + + + + | PTT | 22.4Comment: Please note | 20.0 - 32.0 sec | EXTERNAL | | | | new reference range | | LAB | | | | effective 03/08/2017. | | | | + + + + + + + + | Specimen | + + | Blood specimen | | (specimen) | + + + +---------+ + + | Performing | Address | City/State/Zipcode | Phone Number | | Organization | | | | + +---------+ + + | EXTERNAL LAB | | | | + +---------+ + + Magnesium (07/16/2017 10:01 PM PST) + +-------+ + + + | Component | Value | Ref Range | Performed | Pathologist | | | | | At | Signature | + +-------+ + + + | Magnesium | 2.21 | 1.60 - 2.30 | EXTERNAL | | | | | mg/dL | LAB | | + +-------+ + + + + + | Specimen | + + | Blood specimen | | (specimen) | + + + +---------+ + + | Performing | Address | City/State/Zipcode | Phone Number | | Organization | | | | + +---------+ + + | EXTERNAL LAB | | | | + +---------+ + + CBC with Differential (07/16/2017 10:01 PM PST) + + + + + + | Component | Value | Ref Range | Performed | Pathologist | | | | | At | Signature | + + + + + + | WBC | 11.1 (H) | 3.4 - 10.8 | EXTERNAL | | | | | th/mm3 | LAB | | + + + + + + | RBC | 2.43 (L) | 3.77 - 5.28 | EXTERNAL | | | | | mil/mm3 | LAB | | + + + + + + | Hemoglobin | 7.3 (L) | 11.1 - 15.9 | EXTERNAL | | | | | g/dL | LAB | | + + + + + + | HCT, | 21.7 (LL)Comment: RESULT | 34.0 - 46.6 % | EXTERNAL | | | External | CALLED; READ BACK BY: | | LAB | | | | YANELI G @ 2221 2.9.18 | | | | | | BJD | | | | + + + + + + | MCV | 89 | 79 - 97 fL | EXTERNAL | | | | | | LAB | | + + + + + + | MCH | 30.0 | 26.6 - 33.0 pg | EXTERNAL | | | | | | LAB | | + + + + + + | MCHC | 33.6 | 31.5 - 35.7 | EXTERNAL | | | | | g/dL | LAB | | + + + + + + | RDW-CV | 18.8 (H) | 12.3 - 15.4 % | EXTERNAL | | | | | | LAB | | + + + + + + | Platelet | 144 (L) | 150 - 379 | EXTERNAL | | | Count | | x10E3/uL | LAB | | + + + + + + | Absolute | 9.48 (H) | 1.4 - 7.0 | EXTERNAL | | | Neutrophils | | th/mm3 | LAB | | + + + + + + | Absolute | 0.78 | 0.7 - 3.1 | EXTERNAL | | | Lymphocytes | | th/mm3 | LAB | | + + + + + + | Absolute | 0.44 | 0.1 - 0.9 | EXTERNAL | | | Monocytes | | th/mm3 | LAB | | + + + + + + | Absolute | 0.00 | 0.0 - 0.4 | EXTERNAL | | | Eosinophils | | th/mm3 | LAB | | + + + + + + | Absolute | 0.00 | 0.0 - 0.2 | EXTERNAL | | | Basophils | | th/mm3 | LAB | | + + + + + + | % | 86 | % | EXTERNAL | | | Neutrophils | | | LAB | | + + + + + + | % | 7 | % | EXTERNAL | | | Lymphocytes | | | LAB | | + + + + + + | Monocytes | 4 | % | EXTERNAL | | | | | | LAB | | + + + + + + | % | 0 | % | EXTERNAL | | | Eosinophils | | | LAB | | + + + + + + | % Basophils | 0 | % | EXTERNAL | | | | | | LAB | | + + + + + + | % Immature | 3.3Comment: (An elevated | % | EXTERNAL | | | Granulocyte | percentage of Immature | | LAB | | | s | Granulocytes has not | | | | | | been foundto be | | | | | | clinically significant | | | | | | as a sole clinical | | | | | | predictor of | | | | | | disease.Does NOT include | | | | | | bands or blast cells. | | | | | | | | | | | | associatedphysiological | | | | | | leukocytosis may also | | | | | | show increased | | | | | | immaturegranulocytes | | | | | | without clinical | | | | | | significance.) | | | | + + + + + + | Absolute | 0.37Comment: (An | th/mm3 | EXTERNAL | | | Immature | elevated percentage of | | LAB | | | Granulocyte | Immature Granulocytes | | | | | s | has not been foundto be | | | | | | clinically significant | | | | | | as a sole clinical | | | | | | predictor of | | | | | | disease.Does NOT include | | | | | | bands or blast cells. | | | | | | | | | | | | associatedphysiological | | | | | | leukocytosis may also | | | | | | show increased | | | | | | immaturegranulocytes | | | | | | without clinical | | | | | | significance.) | | | | + + + + + + | % nRBC | 0.2 (H) | 0 - 0 /100 WBC | EXTERNAL | | | | | | LAB | | + + + + + + + + | Specimen | + + | Blood specimen | | (specimen) | + + + +---------+ + + | Performing | Address | City/State/Zipcode | Phone Number | | Organization | | | | + +---------+ + + | EXTERNAL LAB | | | | + +---------+ + + Comprehensive Metabolic Panel (07/16/2017 10:01 PM PST) + + + + + + | Component | Value | Ref Range | Performed | Pathologist | | | | | At | Signature | + + + + + + | K | 4.2 | 3.5 - 5.2 | EXTERNAL | | | | | mmol/L | LAB | | + + + + + + | CO2 | 24 | 18 - 29 mmol/L | EXTERNAL | | | | | | LAB | | + + + + + + | Creatinine | 4.33 (H) | 0.57 - 1.00 | EXTERNAL | | | | | mg/dL | LAB | | + + + + + + | Calcium | 8.5 (L) | 8.7 - 10.2 | EXTERNAL | | | | | mg/dL | LAB | | + + + + + + | BUN | 82 (H) | 6 - 20 mg/dL | EXTERNAL | | | | | | LAB | | + + + + + + | Total | 5.8 (L) | 6.0 - 8.5 g/dL | EXTERNAL | | | Protein | | | LAB | | + + + + + + | Albumin | 3.8 | 3.5 - 5.5 g/dL | EXTERNAL | | | | | | LAB | | + + + + + + | Bilirubin | 0.3 | 0.1 - 1.2 mg/dL | EXTERNAL | | | Total | | | LAB | | + + + + + + | Na | 138 | 134 - 144 | EXTERNAL | | | | | mmol/L | LAB | | + + + + + + | Cl | 95 (L) | 97 - 108 mmol/L | EXTERNAL | | | | | | LAB | | + + + + + + | Glucose | 115 (H)Comment: Normal | 65 - 99 mg/dL | EXTERNAL | | | | printed is for | | LAB | | | | fasting.No normals for | | | | | | random. | | | | | | | | | | + + + + + + | ALT | 41 (H) | 0 - 32 U/L | EXTERNAL | | | | | | LAB | | + + + + + + | AST | 38 | 0 - 40 U/L | EXTERNAL | | | | | | LAB | | + + + + + + | Alk Phos | 50 | 39 - 117 U/L | EXTERNAL | | | | | | LAB | | + + + + + + | Anion Gap | 19 | 5 - 19 mmol/L | EXTERNAL | | | | | | LAB | | + + + + + + | Globulin | 2.0 | 1.5 - 4.5 g/dL | EXTERNAL | | | | | | LAB | | + + + + + + | A/G Ratio | 1.9 | 1.1 - 2.5 | EXTERNAL | | | | | | LAB | | + + + + + + + + | Specimen | + + | Blood specimen | | (specimen) | + + + +---------+ + + | Performing | Address | City/State/Zipcode | Phone Number | | Organization | | | | + +---------+ + + | EXTERNAL LAB | | | | + +---------+ + + MRSA Screen (07/16/2017 8:44 PM PST) + + | Specimen | + + | | + + + + + | Narrative | Performed At | + + + | SOURCE NASAL Final | EXTERNAL LAB | | Report No MRSA isolated | | + + + + +---------+ + + | Performing | Address | City/State/Zipcode | Phone Number | | Organization | | | | + +---------+ + + | EXTERNAL LAB | | | | + +---------+ + + documented in this encounter Visit Diagnoses + + | Diagnosis | + + | Acute renal insufficiency Unspecified disorder of kidney and ureter | + + | Cardiomyopathy, unspecified type (HCC) | + + | Intrauterine | + + | Methamphetamine use (HCC) Nondependent amphetamine or related acting sympathomimetic | | abuse, unspecified | + + | AUNG (acute kidney injury) (HCC) Acute kidney failure, unspecified | + + | Uncontrolled hypertension Unspecified essential hypertension | + + | Thrombotic microangiopathy (HCC) Thrombotic microangiopathy | + + | Anemia, unspecified type | + + | Termination of (fetus) | + + documented in this encounter
--- OUTSIDE RECORDS SUMMARY | ~2019-05-10 | XMS | Encounter Summary ---
Demographics + + + | Address | [address] | | | [place] [address] | + + + | Home Phone | | + + + | Preferred Language | Unknown | + + + | Marital Status | | + + + | Methodist Affiliation | 1038 | + + + | Race | Unknown | + + + | Ethnic Group | Unknown | + + + Author + + + | Author | [facility] | | | and [place] | + + + | Organization | [facility] | | | and [place] [...] [place] | | | | | [address] | | + + + + + Care Team Providers + +------+ + | Care Cupola Melting Supervisor Name | Role | Phone | + +------+ + PCP | Unavailable | + +------+ + Reason for Visit + + + | Reason | Comments | + + + | Medication Refill | | + + + Encounter Details +--------+--------+ + + + | Date | Type | Department | Care Team | Description | +--------+--------+ + + + | 05/02/ | Refill | [facility] | Jhoana Barreto | Medication Refill | | 2017 | | NEPHROLOGY [address] | M, DO [address] | | | | | [address] | [place] | | | | | [place], [place] | [place], [place] | | | | | [address] | [address] | | | | | [phone] | | | +--------+--------+ + + + Social History + + [...] + | Diagnosis | + + | CKD (chronic kidney disease), stage IV (HCC) Chronic kidney disease, Stage IV | | (severe) | + + documented in this encounter Additional Health Concerns + + + + | Infection | Noted Time | Resolved Time | + + + + | Methicillin-resistant Staphylococcus aureus | 03/23/2018 12:00 AM | | | | PDT | | + + + + documented as of this encounter"
--- OUTSIDE RECORDS SUMMARY | ~2019-05-10 | XMS | Encounter Summary ---
Demographics + + + | Address | [address] | | | [place] [address] | + + + | Home Phone | | + + + | Preferred Language | Unknown | + + + | Marital Status | | + + + | Church Affiliation | 1038 | + + + | Race | Unknown | + + + | Ethnic Group | Unknown | + + + Author + + + | Author | [facility] | | | and [place] | + + + | Organization | [facility] | | | and [place] | [...] + | Beverly Perez | ECON | [place] | | | | | [address] | | + + + + + Care Team Providers + +------+ + | Care Light Oil Operator Name | Role | Phone | + +------+ + PCP | Unavailable | + +------+ + Reason for Visit Evaluate & Treat (Routine) + +--------+ + + + + | Status | Reason | Specialty | Diagnoses / | Referred By | Referred To | | | | | Procedures | Contact | Contact | + +--------+ + + + + | Pending | | Nephrology | Diagnoses | Sabillon, | Stroemel, | | Review | | | ESRD (end | Petra W, | Jhoana Flowers DO | | | | | stage renal | MD [address] | | | | | disease) on | [place] | [place] | | | | | dialysis | [address] [place] [address] [place] | | | | | (HCC) | [place] | [place] | | | | | Procedures | [address] | [address] Phone: | | | | | [place] ESRD | Phone: | [phone] | | | | | RELATED SVC | [phone] | Fax: | | | | | MONTHLY | Fax: | [phone] | | | | | 20&/> YR OLD | [phone] | | | | | | 4/> VISITS | | | + +--------+ + + + + Encounter Details +--------+ + + + + | Date | Type | Department | Care Team | Description | +--------+ + + + + | 09/29/ | Off-Site | [facility] | Jhoana Barreto | ESRD on dialysis | | 2019 | Visit | NEPHROLOGY [address] | M, DO [address] | ([facility]) (Primary Dx) | | | | [address] | [place] | | | | | [place], [place] | [place], [place] | | | | | [address] | [address] | | | | | [phone] | | | +--------+ + + + [...] encounter Progress Notes Jhoana Barreto DO - 09/29/2018 10:30 AM PDTNEPHROLOGY [Patient did not show for treatment.] documented in thi s encounter Plan of Treatment Not on filedocumented as of this encounter Visit Diagnoses + + | Diagnosis | + + | ESRD on dialysis (HCC) - Primary End stage renal [...]
--- OUTSIDE RECORDS SUMMARY | ~2019-05-10 | XMS | Encounter Summary ---
Demographics + + + | Address | [address] | | | [place] [address] | + + + | Home Phone | | + + + | Preferred Language | Unknown | + + + | Marital Status | | + + + | Roman Catholic Affiliation | 1038 | + + + | Race | Unknown | + + + | Ethnic Group | Unknown | + + + Author + + + | Author | [facility] | | | and [place] | + + + | Organization | [facility] | | | and [place] [...] [place] | | | | | [address] | | + + + + + Care Team Providers + +------+ + | Care Laser Technician Name | Role | Phone | + +------+ + PCP | Unavailable | + +------+ + Encounter Details +--------+ + + + + | Date | Type | Department | Care Team | Description | +--------+ + + + + | 08/19/ | Abstract | [facility] [place] | RoyergeorgeJhoana | | | 2017 | | NEPHROLOGY [address] | M, DO [address] | | | | | [address] | [place] | | | | | [place], [place] | [place], [place] | | | | | [address] | [address] | | | | | [phone] | | | +--------+ + + + [...] | EXTERNAL LAB: SHAKIRA | Routin | 08/18/2017 | | Results for this | | | e | | | procedure are in the | | | | | | results section. | + +--------+ + + + | EXTERNAL LAB: | Routin | 08/18/2017 | | Results for this | | GLUCOSE | e | | | procedure are in the | | | | | | results section. | + +--------+ + + + | EXTERNAL LAB: | Routin | 08/18/2017 | | Results for this | | ALBUMIN | e | | | procedure are in the | | | | | | results section. | + +--------+ + + + | EXTERNAL LAB: | Routin | 08/18/2017 | | Results for this | | PHOSPHORUS | e | | | procedure are in the | | | | | | results section. | + +--------+ + + + | EXTERNAL LAB: | Routin | 08/18/2017 | | Results for this | | CALCIUM | e | | | procedure are in the | | | | | | results section. | + +--------+ + + + | EXTERNAL LAB: CARBON | Routin | 08/18/2017 | | Results for this | | DIOXIDE | e | | | procedure are in the | | | | | | results section. | + +--------+ + + + | EXTERNAL LAB: | Routin | 08/18/2017 | | Results for this | | CHLORIDE | e | | | procedure are in the | | | | | | results section. | + +--------+ + + + | EXTERNAL LAB: | Routin | 08/18/2017 | | Results for this | | POTASSIUM | e | | | procedure are in the | | | | | | results section. | + +--------+ + + + | EXTERNAL LAB: SODIUM | Routin | 08/18/2017 | | Results for this | | | e | | | procedure are in the | | | | | | results section. | + +--------+ + + + | EXTERNAL LAB: CBC | Routin | 08/18/2017 | | Results for this | | | e | | | procedure are in the | | | | | | results section. | + +--------+ + + + | EXTERNAL LAB: GUILLERMO | Routin | 08/18/2017 | | Results for this | | | e | | | procedure are in the | | | | | | results section. | + +--------+ + + + | EXTERNAL LAB: | Routin | 08/18/2017 | | Results for this | | CREATININE | e | | | procedure are in the | | | | | | results section. | + +--------+ + + + documented in this encounter Results External Lab: SHAKIRA (08/18/2017) + +--------+ + + + | Component | Value | Ref Range | Performed | Pathologist | | | | | At | Signature | + +--------+ + + + | BUN, | 61 (A) | 6 - 23 | EXTERNAL | | | External | | | LAB | | + +--------+ + + + + +---------+ + + | Performing | Address | City/State/Zipcode | Phone Number | | Organization | | | | + +---------+ + + | EXTERNAL LAB | | | | + +---------+ + + External Lab: Glucose (08/18/2017) + +---------+ + + + | Component | Value | Ref Range | Performed | Pathologist | | | | | At | Signature | + +---------+ + + + | Glucose, | 135 (A) | 70 - 100 | EXTERNAL | | | External | | | LAB | | + +---------+ + + + + +---------+ + + | Performing | Address | City/State/Zipcode | Phone Number | | Organization | | | | + +---------+ + + | EXTERNAL LAB | | | | + +---------+ + + External Lab: Albumin (08/18/2017) + +-------+ + + + | Component | Value | Ref Range | Performed | Pathologist | | | | | At | Signature | + +-------+ + + + | Albumin, | 4.5 | 3.5 - 5 | EXTERNAL | | | External | | | LAB | | + +-------+ + + + + +---------+ + + | Performing | Address | City/State/Zipcode | Phone Number | | Organization | | | | + +---------+ + + | EXTERNAL LAB | | | | + +---------+ + + External Lab: Phosphorus (08/18/2017) + +-------+ + + + | Component | Value | Ref Range | Performed | Pathologist | | | | | At | Signature | + +-------+ + + + | Phosphorus, | 4.1 | 2.5 - 5 | EXTERNAL | | | External | | | LAB | | + +-------+ + + + + +---------+ + + | Performing | Address | City/State/Zipcode | Phone Number | | Organization | | | | + +---------+ + + | EXTERNAL LAB | | | | + +---------+ + + External Lab: Calcium (08/18/2017) + +-------+ + + + | Component | Value | Ref Range | Performed | Pathologist | | | | | At | Signature | + +-------+ + + + | Calcium, | 9.3 | 8.4 - 10.2 | EXTERNAL | | | External | | | LAB | | + +-------+ + + + + +---------+ + + | Performing | Address | City/State/Zipcode | Phone Number | | Organization | | | | + +---------+ + + | EXTERNAL LAB | | | | + +---------+ + + External Lab: Carbon Dioxide (08/18/2017) + +-------+ + + + | Component | Value | Ref Range | Performed | Pathologist | | | | | At | Signature | + +-------+ + + + | Carbon | 21 | 21 - 32 | EXTERNAL | | | [...] + +---------+ + + External Lab: Chloride (08/18/2017) + +-------+ + + + | Component | Value | Ref Range | Performed | Pathologist | | | | | At | Signature | + +-------+ + + + | Chloride, | 98 | 98 - 110 | EXTERNAL | | | External | | | LAB | | + +-------+ + + + + +---------+ + + | Performing | Address | City/State/Zipcode | Phone Number | | Organization | | | | + +---------+ + + | EXTERNAL LAB | | | | + +---------+ + + External Lab: Potassium (08/18/2017) + +---------+ + + + | Component | Value | Ref Range | Performed | Pathologist | | | | | At | Signature | + +---------+ + + + | Potassium, | 2.7 (A) | 3.5 - 5.1 | EXTERNAL | | | External | | | LAB | | + +---------+ + + + + +---------+ + + | Performing | Address | City/State/Zipcode | Phone Number | | Organization | | | | + +---------+ + + | EXTERNAL LAB | | | | + +---------+ + + External Lab: Sodium (08/18/2017) + +-------+ + + + | Component | Value | Ref Range | Performed | Pathologist | | | | | At | Signature | + +-------+ + + + | Sodium, | 136 | 135 - 145 | EXTERNAL | | | External | | | LAB | | + +-------+ + + + + +---------+ + + | Performing | Address | City/State/Zipcode | Phone Number | | Organization | | | | + +---------+ + + | EXTERNAL LAB | | | | + +---------+ + + External Lab: CBC (08/18/2017) + + + + + + | Component | Value | Ref Range | Performed | Pathologist | | | | | At | Signature | + + + + + + | WBC, | 6.6 | 4 - 11 | EXTERNAL | | | External | | | LAB | | + + + + + + | HGB, | 10.7 (A) | 12 - 16 | EXTERNAL | | | External | | | LAB | | + + + + + + | HCT, | 30.2 (A) | 35 - 45 | EXTERNAL | | | External | | | LAB | | + + + + + + | PLT, | 278 | 140 - 440 | EXTERNAL | | | External | | | LAB | | + + + + + + | RBC, | 3.52 (A) | 4 - 6 | EXTERNAL | | | External | | | LAB | | + + + + + + | MCV, | 86 | 80 - 100 | EXTERNAL | | | External | | | LAB | | + + + + + + | RDW, | 16 (A) | 10.5 - 15 | EXTERNAL | | | External | | | LAB | | + + + + + + + +---------+ + + | Performing | Address | City/State/Zipcode | Phone Number | | Organization | | | | + +---------+ + + | EXTERNAL LAB | | | | + +---------+ + + External Lab: eGFR (08/18/2017) + +--------+ + + + | Component | Value | Ref Range | Performed | Pathologist | | | | | At | Signature | + +--------+ + + + | eGFR, | 14 (A) | 60 | EXTERNAL | | [...] + +---------+ + + External Lab: Creatinine (08/18/2017) + + + + + + | Component | Value | Ref Range | Performed | Pathologist | | | | | At | Signature | + + + + + + | Creatinine, | 3.64 (A) | 0.6 - 1.3 | EXTERNAL [...]
--- OUTSIDE RECORDS SUMMARY | ~2019-05-10 | XMS | Encounter Summary ---
Demographics + + + | Address | [address] | | | [place] [address] | + + + | Home Phone | | + + + | Preferred Language | Unknown | + + + | Marital Status | | + + + | Confucianism Affiliation | 1038 | + + + | Race | Unknown | + + + | Ethnic Group | Unknown | + + + Author + + + | Author | [facility] | | | and [place] | + + + | Organization | [facility] | | | and [place] [...] [place] | | | | | [address] | | + + + + + Care Team Providers + +------+ + | Care Stereo Equipment Repairer Name | Role | Phone | + +------+ + PCP | Unavailable | + +------+ + Reason for Visit + + + | Reason | Comments | + + + | Dialysis | | | (Asymptomatic) | | + + + Encounter Details +--------+ + + + + | Date | Type | Department | Care Team | Description | +--------+ + + + + | 03/31/ | Telephone | [facility] [place] | Angel Barretoias | Dialysis | | 2017 | | NEPHROLOGY [address] | M, DO [address] | (Asymptomatic) | | | | [address] | [place] | | | | | [place], [place] | [place], [place] | | | | | [address] | [address] | | | | | [phone] | | | +--------+ + + + [...] Visit Diagnoses Not on filedocumented in this encounter Additional Health Concerns + + + + | Infection | Noted Time | Resolved Time | + + + + | Methicillin-resistant Staphylococcus aureus | 03/23/2018 12:00 AM | | | | PDT | | + + + + documented as of this encounter"
--- OUTSIDE RECORDS SUMMARY | ~2019-05-10 | XMS | Encounter Summary ---
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 | + +--------+ + + + | EXTERNAL LAB: | Routin | 08/23/2017 | | Results for this | | GLUCOSE | e | | | procedure are in the | | | | | | results section. | + +--------+ + + + | EXTERNAL LAB: | Routin | 08/23/2017 | | Results for this | | PHOSPHORUS | e | | | procedure are in the | | | | | | results section. | + +--------+ + + + | EXTERNAL LAB: | Routin | 08/23/2017 | | Results for this | | CALCIUM | e | | | procedure are in the | | | | | | results section. | + +--------+ + + + | EXTERNAL LAB: CARBON | Routin | 08/23/2017 | | Results for this | | DIOXIDE | e | | | procedure are in the | | | | | | results section. | + +--------+ + + + | EXTERNAL LAB: | Routin | 08/23/2017 | | Results for this | | CHLORIDE | e | | | procedure are in the | | | | | | results section. | + +--------+ + + + | EXTERNAL LAB: | Routin | 08/23/2017 | | Results for this | | POTASSIUM | e | | | procedure are in the | | | | | | results section. | + +--------+ + + + | EXTERNAL LAB: SODIUM | Routin | 08/23/2017 | | Results for this | | | e | | | procedure are in the | | | | | | results section. | + +--------+ + + + | EXTERNAL LAB: CBC | Routin | 08/23/2017 | | Results for this | | | e | | | procedure are in the | | | | | | results section. | + +--------+ + + + | EXTERNAL LAB: EGFR | Routin | 08/23/2017 | | Results for this | | | e | | | procedure are in the | | | | | | results section. | + +--------+ + + + | EXTERNAL LAB: | Routin | 08/23/2017 | | Results for this | | CREATININE | e | | | procedure are in the | | | | | | results section. | + +--------+ + + + documented in this encounter Results External Lab: [facility] (08/23/2017) + +--------+ + + + | Component | Value | Ref Range | Performed | Pathologist | | | | | At | Signature | + +--------+ + + + | BUN, | 72 (A) | 6 - 23 | EXTERNAL | | | External | | | LAB | | + +--------+ + + + + + | Resulting Agency Comment | + + | [facility] | + + + +---------+ + + | Performing | Address | City/State/Zipcode | Phone Number | | Organization | | | | + +---------+ + + | EXTERNAL LAB | | | | + +---------+ + + External Lab: Glucose (08/23/2017) + +---------+ + + + | Component | Value | Ref Range | Performed | Pathologist | | | | | At | Signature | + +---------+ + + + | Glucose, | 125 (A) | 70 - 100 | EXTERNAL | | | External | | | LAB | | + +---------+ + + + + + | Resulting Agency Comment | + + | [facility] | + + + +---------+ + + | Performing | Address | City/State/Zipcode | Phone Number | | Organization | | | | + +---------+ + + | EXTERNAL LAB | | | | + +---------+ + + External Lab: Phosphorus (08/23/2017) + +---------+ + + + | Component | Value | Ref Range | Performed | Pathologist | | | | | At | Signature | + +---------+ + + + | Phosphorus, | 5.9 (A) | 2.5 - 5 | EXTERNAL | | | External | | | LAB | | + +---------+ + + + + + | Resulting Agency Comment | + + | [facility] | + + + +---------+ + + | Performing | Address | City/State/Zipcode | Phone Number | | Organization | | | | + +---------+ + + | EXTERNAL LAB | | | | + +---------+ + + External Lab: Calcium (08/23/2017) + +-------+ + + + | Component | Value | Ref Range | Performed | Pathologist | | | | | At | Signature | + +-------+ + + + | Calcium, | 9.6 | 8.4 - 10.2 | EXTERNAL | | | External | | | LAB | | + +-------+ + + + + + | Resulting Agency Comment | + + | [facility] | + + + +---------+ + + | Performing | Address | City/State/Zipcode | Phone Number | | Organization | | | | + +---------+ + + | EXTERNAL LAB | | | | + +---------+ + + External Lab: Carbon Dioxide (08/23/2017) + +-------+ + + + | Component | Value | Ref Range | Performed | Pathologist | | | | | At | Signature | + +-------+ + + + | Carbon | 27 | 19 - 31 | EXTERNAL | | | Dioxide, | | | LAB | | | External | | | | | + +-------+ + + + + + | Resulting Agency Comment | + + | [facility] | + + + +---------+ + + | Performing | Address | City/State/Zipcode | Phone Number | | Organization | | | | + +---------+ + + | EXTERNAL LAB | | | | + +---------+ + + External Lab: Chloride (08/23/2017) + +--------+ + + + | Component | Value | Ref Range | Performed | Pathologist | | | | | At | Signature | + +--------+ + + + | Chloride, | 93 (A) | 95 - 112 | EXTERNAL | | | External | | | LAB | | + +--------+ + + + + + | Resulting Agency Comment | + + | [facility] | + + + +---------+ + + | Performing | Address | City/State/Zipcode | Phone Number | | Organization | | | | + +---------+ + + | EXTERNAL LAB | | | | + +---------+ + + External Lab: Potassium (08/23/2017) + +---------+ + + + | Component | Value | Ref Range | Performed | Pathologist | | | | | At | Signature | + +---------+ + + + | Potassium, | 2.7 (A) | 3.6 - 5.1 | EXTERNAL | | | External | | | LAB | | + +---------+ + + + + + | Resulting Agency Comment | + + | [facility] | + + + +---------+ + + | Performing | Address | City/State/Zipcode | Phone Number | | Organization | | | | + +---------+ + + | EXTERNAL LAB | | | | + +---------+ + + External Lab: Sodium (08/23/2017) + +-------+ + + + | Component | Value | Ref Range | Performed | Pathologist | | | | | At | Signature | + +-------+ + + + | Sodium, | 139 | 132 - 143 | EXTERNAL | | | External | | | LAB | | + +-------+ + + + + + | Resulting Agency Comment | + + | [facility] | + + + +---------+ + + | Performing | Address | City/State/Zipcode | Phone Number | | Organization | | | | + +---------+ + + | EXTERNAL LAB | | | | + +---------+ + + External Lab: CBC (08/23/2017) + + + + + + | Component | Value | Ref Range | Performed | Pathologist | | | | | At | Signature | + + + + + + | WBC, | 6.5 | 4.5 - 11 | EXTERNAL | | | External | | | LAB | | + + + + + + | HGB, | 11.9 (A) | 12 - 16 | EXTERNAL | | | External | | | LAB | | + + + + + + | HCT, | 34.2 (A) | 35 - 45 | EXTERNAL | | | External | | | LAB | | + + + + + + | PLT, | 195 | 140 - 440 | EXTERNAL | | | External | | | LAB | | + + + + + + | RBC, | 4.02 | 3.8 - 5.1 | EXTERNAL | | | External | | | LAB | | + + + + + + | MCV, | 85 | 81 - 99 | EXTERNAL | | | External | | | LAB | | + + + + + + | RDW, | 15.6 (A) | 10.5 - 15 | EXTERNAL | | | External | | | LAB | | + + + + + + + + | Resulting Agency Comment | + + | [facility] | + + + +---------+ + + | Performing | Address | City/State/Zipcode | Phone Number | | Organization | | | | + +---------+ + + | EXTERNAL LAB | | | | + +---------+ + + External Lab: eGFR (08/23/2017) + +-------+ + + + | Component | Value | Ref Range | Performed | Pathologist | | | | | At | Signature | + +-------+ + + + | eGFR, | 13 | | EXTERNAL | | | External | | | LAB | | + +-------+ + + + + + | Specimen | + + | Blood | + + + + | Resulting Agency Comment | + + | [facility] | + + + +---------+ + + | Performing | Address | City/State/Zipcode | Phone Number | | Organization | | | | + +---------+ + + | EXTERNAL LAB | | | | + +---------+ + + External Lab: Creatinine (08/23/2017) + + + + + + | Component | Value | Ref Range | Performed | Pathologist | | | | | At | Signature | + + + + + + | Creatinine, | 3.92 (A) | 0.6 - 1.35 | EXTERNAL | | | External | | | LAB | | + + + + + + + + | Specimen | + + | Blood | + + + + | Resulting Agency Comment | + + | [facility] | + + + +---------+ + + | Performing | Address | City/State/Zipcode | Phone Number | | Organization | | | | + +---------+ + + | EXTERNAL LAB | | | | + +---------+ + + documented in this encounter Visit Diagnoses Not on filedocumented in this encounter"
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
--- OUTSIDE RECORDS SUMMARY | ~2019-05-10 | XMS | Encounter Summary ---
Demographics + + + | Address | [address] | | | [place] [address] | + + + | Home Phone | | + + + | Preferred Language | Unknown | + + + | Marital Status | | + + + | Uatsdin Affiliation | 1038 | + + + | Race | Unknown | + + + | Ethnic Group | Unknown | + + + Author + + + | Author | [facility] | | | and Laloana | + + + | Organization | [facility] | | | [...] [place] | | | | | [address] | | + + + + + Care Team Providers + +------+ + | Care Radon Inspector Name | Role | Phone | + +------+ + PCP | Unavailable | + +------+ + Encounter Details +--------+ + + + + | Date | Type | Department | Care Team | Description | +--------+ + + + + | 09/16/ | Orders Only | [facility] [place] | Mary Lou Jhoana | | | 2018 | | NEPHROLOGY [address] | M, DO [address] | | | | | [address] | [place] | | | | | [place], [place] | [place], [place] | | | | | [address] | [address] | | | | | [phone] | | | +--------+ + + + [...]
--- OUTSIDE RECORDS SUMMARY | ~2019-05-10 | XMS | Encounter Summary ---
Demographics + + + | Address | [address] | | | [place] [address] | + + + | Home Phone | | + + + | Preferred Language | Unknown | + + + | Marital Status | | + + + | Hindu Affiliation | 1038 | + + + | Race | Unknown | + + + | Ethnic Group | Unknown | + + + Author + + + | Author | [facility] | | | and Laloana | + + + | Organization | [facility] | | | and Laloana [...] + | Beverly Perez | ECON | [place] | | | | | [address] | | + + + + + Care Team Providers + +------+ + | Care Agricultural Technician Name | Role | Phone | [...] | | | | disease) on | [place] | [place] | | | | | dialysis | [address] | [address] [place] | | | | | (HCC) | [place], [place] | [place] | | | | | Procedures | [address] | [address] Phone: | | | | | [place] ESRD | Phone: | [phone] | | | | | RELATED SVC | [phone] | Fax: | | | | | MONTHLY | Fax: | [phone] | | | | | 20&/> YR OLD | [phone] | | | | | | 4/> [...] W | M, DO [address] | ([facility]) (Primary Dx) | | | | [address] | [place] | | | | | [place], [place] | [place], [place] | | | | | [address] | [address] | | | | | [phone] | | | +--------+ + + + [...]
--- OUTSIDE RECORDS SUMMARY | ~2019-05-10 | XMS | Encounter Summary ---
Demographics + + + | Address | [address] | | | [place] [address] | + + + | Home Phone | | + + + | Preferred Language | Unknown | + + + | Marital Status | | + + + | Shinto Affiliation | 1038 | + + + | Race | Unknown | + + + | Ethnic Group | Unknown | + + + Author + + + | Author | [facility] | | | and Laloana | + + + | Organization | [facility] | | | and [...] + | Beverly Berrying | ECON | [place] | | | | | [address] | | + + + + + Care Team Providers + +------+ + | Care Table Assembler Name | Role | Phone | + +------+ + PCP | Unavailable | + +------+ + Encounter Details +--------+ + + + + | Date | Type | Department | Care Team | Description | +--------+ + + + + | 07/26/ | Orders Only | [facility] [place] | Jhoana Barreto | CKD (chronic kidney | | 2019 | | NEPHROLOGY [address] | M, DO [address] [place] | disease), stage IV | | | | [address] | [place] | ([facility]) | | | | [place], [place] | [place], [place] | | | | | [address] | [address] | | | | | [phone] | | | +--------+ + + + [...]
--- OUTSIDE RECORDS SUMMARY | ~2019-05-10 | XMS | Encounter Summary ---
Demographics + + + | Address | [address] | | | [place] [address] | + + + | Home Phone | | + + + | Preferred Language | Unknown | + + + | Marital Status | Single | + + + | Congregational Affiliation | Unknown | + + + | Race | White | + + + | Ethnic Group | Not or | + + + Author + + + | Author | [facility] | + + + | Organization | [facility] | + + + | Address | Unknown | + + + | Phone | Unavailable | + + + Support + + + + + | Name | Relationship | Address | Phone | + + + + + | Radha Flower | ECON | Unknown | | + + + + + | Ney Kebede | ECON | [address] | | | | | [place], | | | | | [place] [address] | | + + + + + Care Team Providers + +------+ + | Care Electronic Warfare Officer Name | Role | Phone | + +------+ + | No Pcp Per Patient | PCP | Unavailable | + +------+ + Encounter Details +--------+ + + + + | Date | Type | Department | Care Team | Description | +--------+ + + + + | 07/05/ | Document-Sc | UNKNOWN DEPARTMENT | Unknown . | | | 2012 | anned | [address] | | | | | | [address] | | | | | | [place], [place] | | | | | | [address] | | | +--------+ + + + [...]
--- OUTSIDE RECORDS SUMMARY | ~2019-05-10 | XMS | Encounter Summary ---
Demographics + + + | Address | [address] | | | [place] [address] | + + + | Home Phone | | + + + | Preferred Language | Unknown | + + + | Marital Status | | + + + | Christian Affiliation | 1038 | + + + | Race | Unknown | + + + | Ethnic Group | Unknown | + + + Author + + + | Author | [facility] | | | and Laloana | + + + | Organization | [facility] | | | and [place] | + + + | Address | Unknown | + + + | Phone | Unavailable | + + + Support + + + + + | Name | Relationship | Address | Phone | + + + + + | Erik Brian | ECON | Unknown | | + + + + + | Bevrely Berrying | ECON | [place] | | | | | [address] | | + + + + + Care Team Providers + +------+ + | Care Toxicology Supervisor Name | Role | Phone | + +------+ + PCP | Unavailable | + +------+ + Encounter Details +--------+ + + + + | Date | Type | Department | Care Team | Description | +--------+ + + + + | 11/09/ | Abstract | [facility] | [place], | | | 2017 | | GASTROENTEROLOGY | [address] | | | | | [address] [facility] | [place] [address] | | | | | [address] [place] | [place] [address] | | | | | [address] | | | | | | [phone] | | | +--------+ + + + [...]
--- OUTSIDE RECORDS SUMMARY | ~2019-05-10 | XMS | Encounter Summary ---
Demographics + + + | Address | [address] | | | [place] [address] | + + + | Home Phone | | + + + | Preferred Language | Unknown | + + + | Marital Status | | + + + | Yazdanism Affiliation | 1038 | + + + | Race | Unknown | + + + | Ethnic Group | Unknown | + + + Author + + + | Author | [facility] | | | and [place] | + + + | Organization | [facility] | | | and [place] [...] [place] | | | | | [address] | | + + + + + Care Team Providers + +------+ + | Care Computer Operations Specialist Name | Role | Phone | + +------+ + PCP | Unavailable | + +------+ + Encounter Details +--------+ + + + + | Date | Type | Department | Care Team | Description | +--------+ + + + + | 04/01/ | Orders Only | [facility] | Anna Juan N, | | | 2017 | | [address] | [address] | | | | | [place], [place] | [place], | | | | | [address] | [place] [address] | | | | | [phone] | [phone] | | | | | | | | +--------+ + + + [...] | + +--------+ + + + | CULTURE, BLOOD, 2ND | Routin | 04/01/2018 | | Results for this | | SPECIMEN (NON-ORD) | e | 12:20 PM | | procedure are in the | | | | PDT | | results section. | + +--------+ + + + documented in this encounter Results Culture, Blood, 2nd Specimen (04/01/2018 12:20 PM PDT) + + | Specimen | + + | | + + + + + | Narrative | Performed At | + + + | Specimen Description BLOOD CULTURE | EXTERNAL LAB | | NO GROWTH 6 DAYS | | | | | + + + + +---------+ [...]
--- OUTSIDE RECORDS SUMMARY | ~2019-05-10 | XMS | Encounter Summary ---
Demographics + + + | Address | [address] | | | [place] [address] | + + + | Home Phone [...] Author | [facility] | | | and [place] | + + + | Organization | [facility] | | | and [...] [place] | | | | | [address] | | + + + + + Care Team Providers + +------+ + | Care Furniture Designer Name | Role | Phone | + +------+ + PCP | Unavailable | + +------+ + Reason for Visit + + + | Reason | Comments | + + + | Lab Results | | + + + Encounter Details +--------+ + + + + | Date | Type | Department | Care Team | Description | +--------+ + + + + | 08/31/ | Telephone | [facility] | Jhoana Barreto | Lab Results | | 2017 | | NEPHROLOGY [address] | M, DO [address] | | | | | [address] | [place] | | | | | [place], [place] | [place] | | | | | [address] | [id number] | | | | | [phone] | | | +--------+ + + + [...] + | Diagnosis | + + | Hemolysis, elevated liver enzymes, and low platelet (HELLP) syndrome - Primary | + + | AUNG (acute kidney injury) (HCC) Acute kidney failure, unspecified | + + documented in this encounter"
--- OUTSIDE RECORDS SUMMARY | ~2019-05-10 | XMS | Encounter Summary ---
Demographics + + + | Address | [address] | | | [place] [address] | + + + | Home Phone [...] | Author | [facility] | | | and [place] | + + + | Organization | [facility] | | | and [place] [...] [place] | | | | | [address] | | + + + + + Care Team Providers + +------+ + | Care Broadcast Checker Name | Role | Phone | + +------+ + PCP | Unavailable | + +------+ + Reason for Visit + + + | Reason | Comments | + + + | Left Without Being | | | Seen | | + + + Encounter Details +--------+ + + + + | Date | Type | Department | Care Team | Description | +--------+ + + + + | 09/14/ | Telephone | [facility] | Jhoana Barreto | Left Without Being | | 2018 | | NEPHROLOGY [address] | M, DO [address] | Seen | | | | [address] | [place] | | | | | [place], [place] | [place] | | | | | [address] | [address] | | | | | [phone] | | | +--------+ + + + [...]
--- OUTSIDE RECORDS SUMMARY | ~2019-05-10 | XMS | Encounter Summary ---
Demographics + + + | Address | [address] | | | [place] [address] | + + + | Home Phone | | + + + | Preferred Language | Unknown | + + + | Marital Status | | + + + | Episcopal Affiliation | 1038 | + + + | Race | Unknown | + + + | Ethnic Group | Unknown | + + + Author + + + | Author | [facility] | | | and [place] | + + + | Organization | [facility] | | | and [...] [place] | | | | | [address] | | + + + + + Care Team Providers + +------+ + | Care Operator Electronic Warfare Name | Role | Phone | + +------+ + PCP | Unavailable | + +------+ + Reason for Visit + + + | Reason | Comments | + + + | Scheduling Issues | | + + + Encounter Details +--------+ + + + + | Date | Type | Department | Care Team | Description | +--------+ + + + + | 09/01/ | Telephone | [facility] | Carina Dewey FNP | Scheduling Issues | | 2017 | | MEDICINE [place] | [address] | | | | | [address] | [place], [place] | | | | | [place], [place] | [address] | | | | | [address] | | | | | | [phone] | | | +--------+ + + + [...]
--- OUTSIDE RECORDS SUMMARY | ~2019-05-10 | XMS | Encounter Summary ---
Demographics + + + | Address | [address] | | | [place] [address] | + + + | Home Phone | | + + + | Preferred Language | Unknown | + + + | Marital Status | | + + + | Congregation Affiliation | 1038 | + + + | Race | Unknown | + + + | Ethnic Group | Unknown | + + + Author + + + | Author | [facility] | | | and [place] | + + + | Organization | [facility] | | | and [...] [place] | | | | | [address] | | + + + + + Care Team Providers + +------+ + | Care Clinical Research Nurse Name | Role | Phone | + +------+ + PCP | Unavailable | + +------+ + Encounter Details +--------+ + + + + | Date | Type | Department | Care Team | Description | +--------+ + + + + | 07/28/ | Off-Site | [facility] | Mary Lou Jhoana | End stage renal | | 2019 | Visit | NEPHROLOGY [address] | M, DO [address] | disease (HCC) | | | | [address] | [place] | (Primary Dx) | | | | [place], [place] | [place], [place] | | | | | [address] | [address] | | | | | [phone] | | | +--------+ + + + [...] + + + | Blood Pressure | 122/69 | 07/28/2018 4:19 PM | | | | | PST | | + + + + + | Pulse | - | - | | + + + + + | Temperature | 36.8 C (98.2 F) | 07/28/2018 4:19 PM | | | | | PST | [...] documented in this encounter Progress Notes Jhoana Barreto DO - 07/28/2018 2:30 PM PST Subjective: DIALYSIS NOTE Patient ID: Aurea Perez is a 38 y.o. female. 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 She has recently moved to the [facility] [place]. She was trying to st ay at the [facility] [place] decided to come me from home where she now resides with her sister Gricel. She does attend all prescribed treatments and is coming consistently. With that h er CHF and BP have markedly improved, as well as her anemia. Not surprisingly, she is now regularly receiving Mircera , erythropoietin beta, and thus her anemia is improving to her credit. 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 Outpatient Prescriptions Marked as Taking for the 07/28/18 encounter (Off-Site Visit) with Kristie Barreto DO Medication Sig Dispense Refill [START ON 08/22/2018] calcitRIOL (ROCALTROL) 0.5 MCG capsule Take 1 capsule by mouth Thr ee times a week. 30 capsule carvedilol (COREG) 12.5 mg tablet Take 1 tablet by mouth 2 times daily (with breakfast & dinner). 60 tablet 5 furosemide (LASIX) 80 mg tablet Take 1 tablet by mouth Daily. 90 tablet 4 lisinopril (PRINIVIL, ZESTRIL) 10 mg tablet Take 1 tablet by mouth Daily. 90 tablet 3 methoxy polyethylene glycol-epoetin beta (MIRCERA) 50 mcg/0.3 mL injection Inject 0.6 m Ls under the skin every 14 days. vitamin (CITRANATAL HARMONY) 27-1-260 mg capsule Take 1 capsule by mouth Daily . 90 capsule 3 sevelamer carbonate (RENVELA) 800 mg tablet Take 1 tablet by mouth 4 times daily (befor e meals and nightly). 120 tablet 11 Allergies Allergen Reactions Codeine Anaphylaxis Sumatriptan Anaphylaxis Morphine Other (See Comments) Headache Review of Systems Objective: BP 122/69 | Temp 36.8 C (98.2 F) EDW 47 kg Physical Exam Heart: Regular rate and rhythm with no S3, S4, murmur or rub. Lungs: CTA bilaterally. No rales or wheezes. Abdomen: soft, obese, nontender, NABS. Extremities: no edema, clubbing, cyanosis, or foot ulcers. LAB: BUN 40, Cr 4.3, K+ 4.5, HCO3 21, albumin 3.6, Ca++ 8.6, phosphorus 4.1, PTH 211, Hb 1 0.1, TSat = 35%, ferritin 521, spKT/V = 1.5. Assessment: 1. ESRD-- she appears well dialyzed clinically on the current Rx. Her AVF appears to be functioning well at this point. She states her energy level is improving weekly. 2. Hypertension-- the BP appears well controlled from review of the most recent treatment data in ube. 3. 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 Will continue the current dose of Mircera and recheck the Hb weekly. 4. CKD/MBD-- His phosphorus control has been excellent recently. the PTH is stable on he r current dose of Calcitriol. 5. Nutrition-- her caloric intake is improving. 6. HUS/TTP-- clinically, in remission. 7. Transplantation--primary barrier to success may be her unstable home environment and la ck of social support. 8. Remote history of substance abuse-- my gut feeling is that she is in abstinence . Last urine drug screens at [facility] lab have been Negative. Plan: 1. The patient appears stable on 4 hours, 2K+, F160, QB 400, QD 600, thrice weekly. I gre atly appreciate Dr. Gallagher's help with her excellent AVF. 2. Hb is stable on Mircera algorithm, will recheck her in 1 week. 3. I encouraged her to maximize her daily intake of high biological value protein. : [place] Edwar Gallagher MD, FACS documented in thi s encounter Plan of [...]
--- OUTSIDE RECORDS SUMMARY | ~2019-05-10 | XMS | Encounter Summary ---
Demographics + + + | Address | [address] | | | [place] [address] | + + + | Home Phone | | + + + | Preferred Language | Unknown | + + + | Marital Status | | + + + | Islam Affiliation | 1038 | + + + | Race | Unknown | + + + | Ethnic Group | Unknown | + + + Author + + + | Author | [facility] | | | and [place] | + + + | Organization | [facility] | | | and [place] [...] [place] | | | | | [address] | | + + + + + Care Team Providers + +------+ + | Care Welder Helper Name | Role | Phone | + +------+ + | Sia Zheng | PCP | | + +------+ + Reason for Visit + + + | Reason | Comments | + + + | Referral | | + + + Encounter Details +--------+ + + + + | Date | Type | Department | Care Team | Description | +--------+ + + + + | 09/24/ | Telephone | [facility] | Carina Dewey FNP | Referral | | 2017 | | MEDICINE [place] | [address] | | | | | [address] | [place], [place] | | | | | [place], [place] | [address] | | | | | [address] | | | | | | [phone] | | | +--------+ + + + [...]
--- OUTSIDE RECORDS SUMMARY | ~2019-05-10 | XMS | Encounter Summary ---
Demographics + + + | Address | [address] | | | [place] [address] | + + + | Home Phone | | + + + | Preferred Language | Unknown | + + + | Marital Status | | + + + | Episcopalian Affiliation | 1038 | + + + | Race | Unknown | + + + | Ethnic Group | Unknown | + + + Author + + + | Author | [facility] | | | and [place] | + + + | Organization | [facility] | | | and [place] [...] [place] | | | | | [address] | | + + + + + Care Team Providers + +------+ + | Care Composition Roofer Name | Role | Phone | + +------+ + PCP | Unavailable | + +------+ + Encounter Details +--------+ + + + + | Date | Type | Department | Care Team | Description | +--------+ + + + + | 03/22/ | Hospital | [facility] [place] [place] [facility] | Conversion | Diagnosis unknown | | 2018 | Encounter | CONVERSION [address] | Transaction, | | | | | [address] | Provider Unknown | | | | | [place], [place] | [phone] | | | | | [address] | | | | | | [phone] | | | +--------+ + + + [...] + + documented as of this encounter Medications at Time of Discharge + + + +---------+ + + | Medication | Sig | Dispensed | Refills | Start | End Date | | | | | | Date | | + + + +---------+ + + | acetaminophen | Take 325-650 mg by | | 0 | 07/22/19 | | | (TYLENOL) 325 mg | mouth every 6 (six) | | | 18 | | | tablet | hours as needed. | | | | | + + + +---------+ + + | B Vadeqmo-P-Zbski | Take 1 Tab by mouth. | | 0 | 10/16/19 | | | Acid (RENAL-KIT) | | | | 18 | | | 0.8 MG TABS | | | | | | + + + +---------+ + + | carvedilol (COREG) | 6.25 mg. Take one | | 0 | 07/22/19 | | | 25 mg tablet | tab twice daily | | | 18 | | + + + +---------+ + + | cholecalciferol | Take 1,000 Units by | | 0 | 10/16/19 | | | (CHOLECALCIFEROL) | mouth daily. | | | 18 | | | 1000 units TABS | | | | | | + [...] + + + +---------+ + + | eculizumab | Inject 1,200 mg into | | 0 | 12/27/19 | | | (SOLIRIS) 10 mg/mL | the vein every 30 | | | 18 | | | injection | (thirty) days. | | | | | + [...] Tab by mouth | | 0 | //20 | | | 20 mg tablet | every day. | | | 18 | | + + + +---------+ + + | furosemide (LASIX) | Take 80 mg by mouth | | 0 | 09/18/19 | | | 40 mg tablet | daily. | | | 18 | | + + + +---------+ + + | lisinopril | Take 20 mg by mouth | | 0 | 01/25/20 | | | (PRINIVIL, ZESTRIL) | daily. | | | 18 | | | 20 mg tablet | | | | | | + + + +---------+ + + | NIFEdipine | Take 60 mg by mouth | | 0 | 07/23/19 | | | (PROCARDIA XL) 60 mg | daily. | | | 18 | | | ER tablet | | | | | | + + + +---------+ + + | oxyCODONE | Take 5-10 mg by | | 0 | 07/22/19 | | | (ROXICODONE) 5 mg | mouth every 6 (six) | | | 18 | | | tablet | hours as needed. | | | | | + + + +---------+ + + | sucroferric | Take 500 mg by mouth | | 0 | 10/15/19 | | | oxyhydroxide | 3 (three) times | | | 18 | | | (VELPHORO) 500 mg | daily with meals. | | | | | | chewable tablet | | | | | | + + + +---------+ + + | B Vezifhi-E-Bzqdc | Take 1 tablet by | 30 | 11 | 10/16/19 | | | Acid (RENAL-KIT) | mouth Daily. | tablet | | 18 | 9 | | 0.8 MG TABS | | | | | | + + + +---------+ + + | carvedilol (COREG) | Take 6.25 mg by | | 0 | | | | 6.25 mg tablet | mouth 2 times daily | | | | 9 | | | (with breakfast & | | | | | | | dinner). | | | | | + + + +---------+ + + | cholecalciferol | Take 1 tablet by | | 0 | 10/16/19 | | | (VITAMIN D-3) 1,000 | mouth Daily. | | | 18 | 9 | | units tablet | | | | | | + + + +---------+ + + | diphenhydrAMINE | Take 25 mg by mouth | | 0 | | | | (BENADRYL) 25 mg | nightly as needed | | | | 9 | | tabletIndications: | for Itching. 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 [This is | | | | | | | administered at an | | | | | | | infusion clinic in | | | | | | | [facility] | | | | | | | [facility]]. | | | | | + + + +---------+ + + | epoetin ant | Inject 8,000 Units | | 0 | | | | (EPOGEN, PROCRIT) | under the skin Three | | | | 9 | | 10,000 units/mL | times a week. | | | | | | injection | | | | | | + + + +---------+ + + | furosemide (LASIX) | Take 2 tablets by | 60 | 3 | 09/18/19 | | | 40 mg | mouth Daily. | tablet | | 18 | 8 | | tabletIndications: | | | | | | | CKD (chronic kidney | | | | | | | disease), stage IV | | | | | | | (HCC) | | | | | | + + + +---------+ + + | lisinopril | take 1 tablet by | 30 | 11 | 01/25/20 | | | (PRINIVIL, ZESTRIL) | mouth once daily | tablet | | 18 | 9 | | 20 mg tablet | | | | | | + + + +---------+ + + | sucroferric | Take 1 tablet by | 90 | 3 | 10/16/19 | | | oxyhydroxide | mouth 3 times daily | tablet | | 18 | 9 | | (VELPHORO) 500 mg | (with meals). | | | | | | chewable tablet | | | | | | + [...] XR CHEST 1 VIEW | Routin | 03/22/2018 | | Results for this | | | e | 6:46 PM | | procedure are in the | | | | PDT | | results section. | + +--------+ + + + documented in this encounter Results XR Chest 1 Vw (03/22/2018 6:46 PM PDT) + + | Specimen | + + | | + + + + + | Narrative | Performed At | + + + | This is a non-reportable procedure without a radiologist report and | | | is used for image storage only | | + + + + + | Procedure Note | + + | Rickie Flannery Taniya - 01/18/2019 1:45 PM PDT This is a non-reportable procedure | | without a radiologist report and isused for image storage only | + + documented in this encounter Visit Diagnoses + + | Diagnosis | + + | Diagnosis unknown Other unknown and unspecified cause of morbidity or mortality | + + documented in this encounter"
--- OUTSIDE RECORDS SUMMARY | ~2019-05-10 | XMS | Encounter Summary ---
Demographics + + + | Address | [address] | | | [place] [address] | + + + | Home Phone | | + + + | Preferred Language | Unknown | + + + | Marital Status | | + + + | Mormonism Affiliation | 1038 | + + + | Race | Unknown | + + + | Ethnic Group | Unknown | + + + Author + + + | Author | [facility] | | | and [place] | + + + | Organization | [facility] | | | and [place] [...] [place] | | | | | [address] | | + + + + + Care Team Providers + +------+ + | Care Rn Eligibility Name | Role | Phone | + +------+ + PCP | Unavailable | + +------+ + Reason for Visit + + + | Reason | Comments | + + + | Insurance | | | Authorization | | + + + Encounter Details +--------+ + + + + | Date | Type | Department | Care Team | Description | +--------+ + + + + | 09/27/ | Telephone | [facility] | Jourdan Chavez | Insurance | | 2018 | | HOSPITAL HEMATOLOG[facility] | MD [address] | Authorization | | | | [address] | [address] [facility] | | | | | [address] [place], [place] | [facility], [place] | | | | | [address] | [address] | | | | | [phone] | [phone] | | | | | | | [...]
--- OUTSIDE RECORDS SUMMARY | ~2019-05-10 | XMS | Encounter Summary ---
Demographics + + + | Address | [address] | | | [place] [address] | + + + | Home Phone | | + + + | Preferred Language | Unknown | + + + | Marital Status | | + + + | Mu-Ism Affiliation | 1038 | + + + | Race | Unknown | + + + | Ethnic Group | Unknown | + + + Author + + + | Author | [facility] | | | and [place] | + + + | Organization | [facility] | | | and [...] [place] | | | | | [address] | | + + + + + Care Team Providers + +------+ + | Care Wet End Operator Name | Role | Phone | + +------+ + PCP | Unavailable | + +------+ + Encounter Details +--------+ + + + + | Date | Type | Department | Care Team | Description | +--------+ + + + + | 04/15/ | Hospital | [facility] | Yves Horta M | | | 1986 - | Encounter | [facility] | | | | | | GENERIC CONV [id number] | | | | 06/06/ | | [place], | | | | 1995 | | [place] [address] | | | | | | [phone] | | | +--------+ + + + [...]
--- OUTSIDE RECORDS SUMMARY | ~2019-05-10 | XMS | Encounter Summary ---
Demographics + + + | Address | [address] | | | [place] [address] | + + + | Home Phone | | + + + | Preferred Language | Unknown | + + + | Marital Status | | + + + | Mormon Affiliation | 1038 | + + + | Race | Unknown | + + + | Ethnic Group | Unknown | + + + Author + + + | Author | [facility] | | | and [place] | + + + | Organization | [facility] | | | and [place] [...] [place] | | | | | [address] | | + + + + + Care Team Providers + +------+ + | Care Marriage And Family Social Worker Name | Role | Phone | + +------+ + PCP | Unavailable | + +------+ + Encounter Details +--------+ + + + + | Date | Type | Department | Care Team | Description | +--------+ + + + + | 09/15/ | Hospital | [facility] | Jhoana Barreto | Bronchitis; SOB | | 2019 | Encounter | MED CTR XRAY [address] | M, DO [address] | (shortness of | | | | [place] | [place] | breath) | | | | [place] [address] | [place], [place] | | | | | [phone] | [address] | | | | | | | [...] + + + +---------+ + + | azithromycin | Take 2 tablets by | 6 | 0 | 09/16/19 | | | (ZITHROMAX) 250 mg | mouth on day 1, and | tablet | | 19 | | | tablet | 1 tablet by mouth | | | | | | | every day | | | | | + + + +---------+ + + | B Zpeyztb-X-Mkhbk | Take 1 Tab by mouth. | | 0 | 10/16/19 | | | Acid (RENAL-KIT) | | | | 18 | | | 0.8 MG TABS | | | | | | + + + +---------+ + + | calcitRIOL | Take 1 capsule by | 30 | 0 | 08/23/19 | | | (ROCALTROL) 0.5 MCG | mouth Three times a | capsule | | 19 | | | capsule | week. | | | | | + + + +---------+ + + | carvedilol (COREG) | Take 1 tablet by | 60 | 5 | 07/26/19 | | | 12.5 mg tablet | mouth 2 times daily | tablet | | 19 | | | | (with breakfast & | [...] Tab by mouth | | 0 | / | | | 20 mg tablet | every day. | | | 18 | | + + + +---------+ + + | furosemide (LASIX) | Take 80 mg by mouth | | 0 | 09/18/19 | | | 40 mg tablet | daily. | | | 18 | | + + + +---------+ + + | furosemide (LASIX) | Take 1 tablet by | 90 | 4 | 07/26/19 | | | 80 mg | mouth Daily. | tablet | | 19 | | | tabletIndications: | | | | | | | CKD (chronic kidney | | | | | | | disease), stage IV | | | | | | | (HCC) | | | | | | + + + +---------+ + + | lisinopril | Take 1 tablet by | 90 | 3 | 07/26/19 | | | (PRINIVIL, ZESTRIL) | mouth Daily. | tablet | | 19 | | | 10 mg tablet | | | | | | + + + +---------+ + + | lisinopril | Take 20 mg by mouth | | 0 | 08/20/20 | | | (PRINIVIL, ZESTRIL) | daily. | | | 18 | | | 20 mg tablet | | | | | | + + + +---------+ + + | methoxy | Inject 0.6 mLs under | | 0 | 08/22/19 | | | polyethylene | the skin every 14 | | | 19 | | | glycol-epoetin beta | days. | | | | | | (MIRCERA) 50 mcg/0.3 | | | | | | | mL injection | | | | | | + + + +---------+ + + | NIFEdipine | Take 60 mg by mouth | | 0 | 07/23/19 | | | (PROCARDIA XL) 60 mg | daily. | | | 18 | | | ER tablet | | | | | | + + + +---------+ + + | ondansetron | Take 1 tablet by | 20 | 3 | 09/16/19 | | | (ZOFRAN) 4 mg tablet | mouth every 12 hours | tablet | | 19 | | | | as needed for | | | | | | | Nausea. | | | | | + + + +---------+ + + | oxyCODONE | Take 5-10 mg by | | 0 | 07/22/19 | | | (ROXICODONE) 5 mg | mouth every 6 (six) | | | 18 | | | tablet | hours as needed. | | | | | + + + +---------+ + + | vitamin | Take 1 capsule by | 90 | 3 | 07/26/19 | | | (CITRANATAL HARMONY) | mouth Daily. | capsule | | 19 | | | 27-1-260 mg capsule | | | | | | + + + +---------+ + + | sevelamer | Take 1 tablet by | 120 | 11 | 07/26/19 | | | carbonate (RENVELA) | mouth 4 times daily | tablet | | 19 | | | 800 mg tablet | (before meals and | | | | | | | nightly). | | | | | + + [...] +--------+ + + + | XR CHEST PA AND | Routin | 09/15/2018 | Bronchitis SOB | Results for this | | LATERAL | e | 11:10 AM | (shortness of | procedure are in the | | | | PDT | breath) | results section. | + +--------+ + + + documented in this encounter Results XR Chest PA and Lateral (09/15/2018 11:10 AM PDT) + + | Specimen | + + | | + + + + + | Narrative | Performed At | + + + | XR CHEST PA AND LATERAL 09/15/2018 11:10 AM HISTORY: wheezing | [facility] | | with cough.. COMPARISON: 07/19/2018 Findings: Lungs are | | | hyperexpanded. No evidence of pneumothorax or pleural effusion. Heart | | | size is within normal limits. Pulmonary vasculature is within normal | | | limits. Aorta is normal. Mediastinum is unremarkable. No acute | | | osseous or soft tissue abnormality identified. IMPRESSION - | | | Hyperexpanded lungs with reactive airway disease considered. No | | | other abnormality identified. Dictated and Signed by: Elmer | | | MD Joseph Electronically signed: 09/15/2018 11:54 AM | | + + + + + | Procedure Note | + + | Prudencio, Rad Results In - 09/15/2018 11:57 AM PDT XR CHEST PA AND LATERAL 09/15/2018 11:10 | | AMHISTORY: wheezing with cough..COMPARISON: 07/19/2018Findings:Lungs are hyperexpanded. | | No evidence of pneumothorax or pleural effusion. Heartsize is within normal limits. | | Pulmonary vasculature is within normal limits.Aorta is normal. Mediastinum is | | unremarkable. No acute osseous or soft tissueabnormality identified. IMPRESSION - | | Hyperexpanded lungs with reactive airway disease considered.No other abnormality | | identified.Dictated and Signed by: Elmer Ruiz MD Electronically signed: 09/15/2018 | | 11:54 AM | |size is within normal limits. Pulmonary vasculature is within normal limits. | |Aorta is normal. Mediastinum is unremarkable. No acute osseous or soft tissue | |abnormality identified. | | | |IMPRESSION - | |Hyperexpanded lungs with reactive airway disease considered. | | | |No other abnormality identified. | | | |Dictated and Signed by: Elmer Ruiz MD | | Electronically signed: 09/15/2018 11:54 AM | + + + +---------+ + + | Performing | Address | City/State/Zipcode | Phone Number | | Organization | | | | + +---------+ + + | [facility] | | | | + +---------+ + + documented in this encounter Visit Diagnoses + + | Diagnosis | + + | Bronchitis Bronchitis, not specified as acute or chronic | + + | SOB (shortness of breath) Shortness of breath | + + documented in this encounter Additional Health Concerns + + + + | Infection | Noted Time | Resolved Time | + + + + | Methicillin-resistant Staphylococcus aureus | 03/23/2018 12:00 AM | | | | PDT | | + + + + documented as of this encounter"
--- OUTSIDE RECORDS SUMMARY | ~2019-05-10 | XMS | Encounter Summary ---
Demographics + + + | Address | [address] | | | [place] [address] | + + + | Home Phone | | + + + | Preferred Language | Unknown | + + + | Marital Status | | + + + | Adventism Affiliation | 1038 | + + + | Race | Unknown | + + + | Ethnic Group | Unknown | + + + Author + + + | Author | [facility] | | | and [place] | + + + | Organization | [facility] | | | and [place] [...] + | [place] | ECON | [place] | | | | | [address] | | + + + + + Care Team Providers + +------+ + | Care Manager Chemistry Name | Role | Phone | + +------+ + PCP | Unavailable | + +------+ + Encounter Details +--------+ + + + + | Date | Type | Department | Care Team | Description | +--------+ + + + + | 09/01/ | Orders Only | [facility] [place] | Jhoana Barreto | SOB (shortness of | | 2018 | | NEPHROLOGY [address] | M, DO [address] | breath) (Primary Dx) | | | | [address] | [place] | | | | | [place], [place] | [place], [place] | | | | | [address] | [address] | | | | | [phone] | | | +--------+ + + + [...] Not on filedocumented as of this encounter Results XR Chest PA and Lateral (09/01/2017 1:10 PM PDT) + + | Specimen | + + | | + + + + + | Narrative | Performed At | + + + | XR CHEST PA AND LATERAL 09/01/2017 1:10 PM HISTORY: SOB. | [facility] | | COMPARISON: 07/28/2017 Findings: Diffuse interstitial and | | | peribronchial wall thickening in the left retrocardiac lung zone, | | | concerning for pneumonia. Lungs are otherwise clear without evidence | | | of pneumothorax or pleural effusion. Heart size is within normal | | | limits. Pulmonary vasculature is within normal limits. Aorta is | | | normal. Mediastinum is unremarkable. No acute osseous or soft tissue | | | abnormality identified. IMPRESSION - Diffuse interstitial and | | | peribronchial wall thickening in the left retrocardiac lung zone, | | | concerning for pneumonia. Dictated and Signed by: Elmer Ruiz | | | Electronically signed: 09/01/2017 1:34 PM | | + + + + + | Procedure Note | + + | Prudencio, Rad Results In - 09/01/2017 1:37 PM PDT XR CHEST PA AND LATERAL 09/01/2017 1:10 | | PMHISTORY: SOB.COMPARISON: 07/28/2017Findings:Diffuse interstitial and peribronchial wall | | thickening in the left retrocardiaclung zone, concerning for pneumonia. Lungs are | | otherwise clear without evidenceof pneumothorax or pleural effusion. Heart size is | | within normal limits.Pulmonary vasculature is within normal limits. Aorta is normal. | | Mediastinum isunremarkable. No acute osseous or soft tissue abnormality identified. | | IMPRESSION - Diffuse interstitial and peribronchial wall thickening in the left | | retrocardiaclung zone, concerning for pneumonia.Dictated and Signed by: Elmer Ruiz | | Electronically signed: 09/01/2017 1:34 PM | |of pneumothorax or pleural effusion. Heart size is within normal limits. | |Pulmonary vasculature is within normal limits. Aorta is normal. Mediastinum is | |unremarkable. No acute osseous or soft tissue abnormality identified. | | | |IMPRESSION - | |Diffuse interstitial and peribronchial wall thickening in the left retrocardiac | |lung zone, concerning for pneumonia. | | | |Dictated and Signed by: Elmer Ruiz MD | | Electronically signed: 09/01/2017 1:34 PM | + + + +---------+ + + | Performing | Address | City/State/Zipcode | Phone Number | | Organization | | | | + +---------+ + + | [facility] | | | | + +---------+ + + documented in this encounter Visit Diagnoses + + | Diagnosis | + + | SOB (shortness of breath) - Primary Shortness of breath | + + documented in this encounter"
--- OUTSIDE RECORDS SUMMARY | ~2019-05-10 | XMS | Encounter Summary ---
Demographics + + + | Address | [address] | | | [place] [address] | + + + | Home Phone | | + + + | Preferred Language | Unknown | + + + | Marital Status | | + + + | Anabaptism Affiliation | 1038 | + + + | Race | Unknown | + + + | Ethnic Group | Unknown | + + + Author + + + | Author | [facility] | | | and [place] | + + + | Organization | [facility] | | | and [...] [place] | | | | | [address] | | + + + + + Care Team Providers + +------+ + | Care Trial Paralegal Name | Role | Phone | + +------+ + PCP | Unavailable | + +------+ + Encounter Details +--------+ + + + + | Date | Type | Department | Care Team | Description | +--------+ + + + + | 08/09/ | Imaging | [facility] | Provider, | | | 2019 | Exam | MED CTR EXTERNAL | [address] | | | | | IMAGING | [address] | | | | | [phone] | [place] [address] | | +--------+ + + + + [...] XR CHEST 1 VIEW | Routin | 07/18/2018 | | Results for this | | | e | 4:05 PM | | procedure are in the | | | | PST | | results section. | + +--------+ + + + documented in this encounter Results XR Chest 1 Vw (07/18/2018 4:05 PM PST) + + | Specimen | + + | | + + + + + | Narrative | Performed At | + + + | External films for comparison only | [facility] | | | | | No results will be in the chart. | | + + + + +---------+ [...]
--- OUTSIDE RECORDS SUMMARY | ~2019-05-10 | XMS | Encounter Summary ---
Demographics + + + | Address | [address] | | | [place] [address] | + + + | Home Phone | | + + + | Preferred Language | Unknown | + + + | Marital Status | | + + + | Mormon Affiliation | 1038 | + + + | Race | Unknown | + + + | Ethnic Group | Unknown | + + + Author + + + | Author | [facility] | | | and [place] | + + + | Organization | [facility] | | | and [place] [...] + | [place] | ECON | [place] | | | | | [address] | | + + + + + Care Team Providers + +------+ + | Care Mine Deputy Name | Role | Phone | + +------+ + PCP | Unavailable | + +------+ + Encounter Details +--------+ + + + + | Date | Type | Department | Care Team | Description | +--------+ + + + + | 09/17/ | Orders Only | [facility] [place] | Jhoana Barreto | CKD (chronic kidney | | 2018 | | NEPHROLOGY [address] | M, DO [address] | disease), stage IV | | | | [address] | [place] | ([facility]); Essential | | | | [place], [place] | [place], [place] | hypertension, | | | | [address] | [address] | malignant | | | | [phone] | | | +--------+ + + + [...] IV | | (severe) | + + | Essential hypertension, malignant | + + documented in this encounter"
--- OUTSIDE RECORDS SUMMARY | ~2019-05-10 | XMS | Encounter Summary ---
Demographics + + + | Address | [address] | | | [place] [address] | + + + | Home Phone | | + + + | Preferred Language | Unknown | + + + | Marital Status | | + + + | Temple Affiliation | 1038 | + + + | Race | Unknown | + + + | Ethnic Group | Unknown | + + + Author + + + | Author | [facility] | | | and [place] | + + + | Organization | [facility] | | | and [...] + | Beverly Perez | ECON | [place] | | | | | [address] | | + + + + + Care Team Providers + +------+ + | Care Process Environmental Technician Name | Role | Phone | + +------+ + PCP | Unavailable | + +------+ + Reason for Visit Auth/Cert +--------+--------+ + + + + | Status | Reason | Specialty | Diagnoses / | Referred By | Referred To | | | | | Procedures | Contact | Contact | +--------+--------+ + + + + | | | | Diagnoses | | | | | | | ESRD (end | | | | | | | stage renal | | | | | | | disease) | | | | | | | (HCC) ESRD | | | | | | | (end stage | | | | | | | renal | | | | | | | disease) | | | | | | | (HCC) | | | | | | | (N18.6) | | | | | | | Procedures | | | | | | | [place] AV | | | | | | | ANAST,UP ARM | | | | | | | BASILIC | | | | | | | VEIN | | | | | | | TRANSPOSIT | | | | | | | [place] | | | | | | | ANASTOMOSIS, | | | | | | | AV,ANY SITE | | | | | | | RIGHT | | | | | | | transposed | | | | | | | basilic vein | | | | | | | fistula | | | | | | | creation | | | +--------+--------+ + + + + Encounter Details +--------+ + + + + | Date | Type | Department | Care Team | Description | +--------+ + + + + | 01/04/ | Anesthesia | [facility] | [place], | | | 2018 | Event | [facility] | Wesley Keita MD | | | | | [address] | [address] | | | | | [place] | [place] | | | | | [phone] | [id number] | | | | | [phone] | | | +--------+ + + + + Anesthesia Record + + + + + | Procedure Name | Responsible | Anesthesia Start | Anesthesia Stop Time | | | Anesthesiologist | Time | | + + + + + | RIGHT transposed | Wesley Keita | 01/04/18 1622 | 01/04/181946 | | basilic vein fistula | MD [facility] | | | | creation (Right Arm | | | | | Upper) | | | | + + + + + +----+---+ + + | Da | T | Event | Comment | | te | i | | | | | m | | | | | e | | | +----+---+ + + | 07 | 1 | | | | /3 | 6 | | | | 1/ | 1 | | | | 20 | 8 | | | | 18 | | | | +----+---+ + + | | 1 | An Start | Reassessment prior to anesthesia induction/procedure. | | | 6 | | | | | 2 | | | | | 2 | | | +----+---+ + + | | 1 | Preoxygenat | | | | 6 | ed | | | | 2 | | | | | 8 | | | +----+---+ + + | | 1 | An | | | | 6 | Induction | | | | 3 | | | | | 1 | | | +----+---+ + + | | 1 | An | | | | 6 | Intubation | | | | 3 | | | | | 3 | | | +----+---+ + + | | 1 | Antibiotic | | | | 6 | Given | | | | 3 | | | | | 7 | | | +----+---+ + + | | 1 | [place] | | | | 6 | 43-degrees | | | | 4 | | | | | 3 | | | +----+---+ + + | | 1 | Pre-Procedu | | | | 6 | ral Timeout | | | | 4 | Completed | | | | 3 | | | +----+---+ + + | | 1 | First | | | | 6 | Inc/Proc St | | | | 4 | | | | | 5 | | | +----+---+ + + | | 1 | Breathing | | | | 9 | Spontaneous | | | | 3 | ly | | | | 6 | | | +----+---+ + + | | 1 | Oropharynx | | | | 9 | Suctioned | | | | 3 | | | | | 6 | | | +----+---+ + + | | 1 | Extubated | | | | 9 | Awake | | | | 4 | | | | | 0 | | | +----+---+ + + | | 1 | An Stop | Patient handed off to recovery nurse. | | | 4 | | | | | 7 | | | +----+---+ + + +------+ | Meds | +------+ + + + | Name | Total | + + + | fentaNYL | 150 mcg | + + + | propofol (DIPRIVAN) injection | 200 mg | | (bolus) (20 mL) | | + + + | propofol | 296.34 mg | + + + | lidocaine 1% | 40 mg | + + + | Phenylephrine 100mcg/mL SYRINGE | 50 mcg | + + + | ePHEDrine | 30 mg | + + + | dexamethasone | 10 mg | + + + | ceFAZolin (ANCEF, KEFZOL) 100 | 1 g | | mg/mL IV syringe 1 g | | + + + | dexmedetomidine (Bolus) | 20 mcg | + + + | heparin | 4,000 Units | + + + | sodium chloride 0.9% (NS) | 1,500 mL | | infusion | | + + + + + | Name | + + | N2O Flow Rate (L/Min) | + + | O2 Flow Rate (L/Min) | + + | Insp O2 | + + | Exp SEV | + + | Air Flow Rate (L/Min) | + + + + | No blood administrations on file. | + + +--------+ + + + | Type | Details | Placement | Removal | +--------+ + + + | Hemodi | 01/04/18; 1506; yes; tunneled, | 01/04/18 150 by | | | alysis | subclavian vein, right | Amanda Garcia RN | | | | | | | | Cathet | | | | | er | | | | +--------+ + + + | Drain/ | 01/04/18; 1906; #1; Right; | 01/04/181906 by | | | Device | anterior; arm; collapsible closed | Heather Boo RN | | | Site | device | | | +--------+ + + + | Periph | 07/04/17; 1735; Right; | 07/04/171735 by | 01/04/182051 by Man | | eral | Antecubital; [id number] | Reva Martin RN | Neela Self RN | | IV | catheter system; 22 gauge; | | | | | 01/04/18; 2051 | | | +--------+ + + + | Urethr | 07/06/17; 1411; indicated for | 07/06/171411 by | 01/04/182051 by Man | | judie | critically ill with need for | Dionicio Jeff RN | Neela Self RN | | Cathet | accurate I/O; Perineum cleaned, | | | | er | Second person present; 16; None; | | | | | 1; 10; 01/04/18; 2051 | | | +--------+ + + + | Periph | 07/06/17; 1426; Left; Wrist; | 07/06/171425 by | 01/04/182051 by Man | | thor | alip-xhl-uglbij catheter system; | Dionicio Jeff RN | Neela Self RN | | IV | 22 gauge; 01/04/18; 2051 | | | +--------+ + + + | Airway | Placement Date: 07/06/17; | 07/06/171435 by | 01/04/18 1644 by | | | Placement Time: 1436; Attempts: | Kina Veal, ACCOUNTING/FINANCE TUTOR | Wesley Keita | | | 1; Airway Type: endotracheal; | | MD [facility] | | | Size: 7.5; Removal Date: | | | | | 01/04/18; Removal Time: 1644 | | | | | (removed via procedure | | | | | documentation) | | | +--------+ + + + | PICC | 07/06/17; 1620; Red Hub; White | 07/06/17 1620 by | 01/04/182051 by Man | | Triple | Hub; [place] Hub; Yes; | Nicole Mc, RN | Neela Self RN | | Lumen | Chlorhexidine/Isopropyl Alcohol; | | | | | Yes; Yes; All; Patient room; | | | | | Keg Filler; nicole mc; | | | | | Registered nurse; Yes; New | | | | | indication for central line | | | | | (e.g., hemodynamic monitoring, | | | | | fluid/medication administration, | | | | | etc.); brachial, right; pressure | | | | | injectable catheter, open-ended | | | | | catheter; 5 Fr, length (specify) | | | | | (55cm trimmed to 37; inserted | | | | | 36cm); intradermal injection, | | | | | other (see comments) (meds per | | | | | ELECTRICIAN CHIEF pt very active ); | | | | | ultrasound visualization with | | | | | modified seldinger technique at | | | | | bedside; placement verified by | | | | | x-ray; stick x 4 due to continual | | | | | movement without meds; vein near | | | | | artery requiring needle | | | | | withdrawl when active; 01/04/18; | | | | | 2051 | | | +--------+ + + + | NG/OG | 07/06/17; 1700; 18; 60 (at 60 cm | 07/06/171699 by | 01/04/182051 by Man | | | johny at gum); 01/04/18; 2051 | Dionicio Jeff RN | Neela Self RN | +--------+ + + + | Periph | 01/04/18; 1449; Left; Wrist; | 01/04/18 144 by | 01/04/182118 by Man | | evelinal | [id number]-[id number] catheter system; | Amanda Garcia RN | Neela Self RN | | IV | 20 gauge; distraction, tolerated | | | | | well; 01/04/182118 | | | +--------+ + + + | Airway | Placement Date: 01/04/18; | 01/04/181632 by | 01/04/181939 by | | | Placement Time: 1632 (created via | Wesley Keita | Wesley Keita | | | procedure documentation); Mask | MD [facility] | MD [facility] | | | Ventilation: EZ; Attempts: 1; | | | | | Airway Type: laryngeal mask; | | | | | Size: 4; Trauma: none; Placement | | | | | Check: bilateral chest rise, | | | | | breath sounds equal bilaterally; | | | | | Removal Date: 01/04/18; Removal | | | | | Time: 1939 | | | +--------+ + + + | Read | 01/04/18; 1645; Right; arm; | 01/04/18 1645 by | 08/30/18 1342 by | | only - | 08/30/18 (Completed/Removed by | Heather Boo RN | User Epic | | | Utility); 1342 (Completed/Removed | | | | Incisi | by Utility) | | | | on | | | | +--------+ + + + documented in this encounter Social History + + + +--------+ + [...] | + +--------+ + + + | ANE AIRWAY NOTE | Routin | 01/04/2018 | | Results for this | | | e | 4:44 PM | | procedure are in the | | | | PDT | | results section. | + +--------+ + + + documented in this encounter Results Anesthesia Airway Note (01/04/2018 4:44 PM PDT) + + + | Narrative | Performed At | + + + | Wesley Thurman MD 01/04/2018 16:44 Anesthesia Airway | | | Placement 01/04/2018 16:33 Preprocedure check: patient identified, | | | suction, airway equipment checked, oxygen, airway assessed and | | | patient reassessment prior to induction Mask ventilation: easy | | | Attempts: 1 Airway type: laryngeal mask Size: 4 Cuffed: cuffed | | | Route, reference point: center of mouth Tube secured with: adhesive | | | tape Trauma: none Tube placement verification: bilateral chest rise | | | and equal bilateral breath sounds Performing provider: Betty THURMAN Electronically Signed by: Betty Oropeza | Betty CARUSO ESig date/time: | | | 01/04/2018 16:44 | | + + + + + | Procedure Note | + + | Wesley Thurman MD - 01/04/2018 4:44 PM PDT Anesthesia Airway | | Placement01/04/2018 16:33Preprocedure check: patient identified, suction, airway | | equipment checked, oxygen, airway assessed and patient reassessment prior to | | inductionMask ventilation: easyAttempts: 1Airway type: laryngeal maskSize: 4Cuffed: | | cuffedRoute, reference point: center of mouthTube secured with: adhesive tapeTrauma: | | noneTube placement verification: bilateral chest rise and equal bilateral breath | | soundsPerforming provider: WESLEY THURMAN LElectronically Signed by: Wesley | | MD Shawnee Brice date/time: 01/04/2018 16:44 | |Cuffed: cuffed | |Route, reference point: center of mouth | |Tube secured with: adhesive tape | |Trauma: none | |Tube placement verification: bilateral chest rise and equal bilateral breath sounds | |Performing provider: WESLEY THURMAN | | | | | |Electronically Signed by: MD Shawnee Oropeza date/t sakina: 01/04/2018 16:44 | | | + + documented in this encounter Visit Diagnoses Not on filedocumented in this encounter Administered Medications + +--------+ +------+------+------+ | Medication Order | MAR | Action | Dose | Rate | Site | | | Action | Date | | | | + +--------+ +------+------+------+ | ceFAZolin (ANCEF, KEFZOL) 100 | Given | 01/05/20 | 1 g | | | | mg/mL IV syringe 1 g 1 g, | | 18 4:37 | | | | | Intravenous, Administer over 30 | | PM PDT | | | | | Minutes, Prior to Incision, | | | | | | | Starting Wed01/04/18 at 0250, For | | | | | | | 1 dose, administer within 1 hour | | | | | | | of incision, Pre-op, | | | | | | | Indications: Surgical Prophylaxis | | | | | | + +--------+ +------+------+------+ +---+---+ | | | +---+---+ + +-------+ +-------+---+---+ | dexamethasone (PF) 10 mg/mL | Given | 01/05/20 | 10 mg | | | | injection Intravenous, PRN, | | 18 4:39 | | | | | Starting Wed01/04/18 at 1639, | | PM PDT | | | | | Anesthesia Intra-op | | | | | | + +-------+ +-------+---+---+ +---+---+ | | | +---+---+ + +-------+ +--------+---+---+ | dexmedetomidine (PRECEDEX) in | Given | 01/05/20 | 20 mcg | | | | sodium chloride bolus infusion | | 18 4:37 | | | | | Intravenous, PRN, Starting Tue | | PM PDT | | | | | 01/04/18 at 1637, Anesthesia | | | | | | | Intra-op | | | | | | + +-------+ +--------+---+---+ +---+---+ | | | +---+---+ + +-------+ +-------+---+---+ | ePHEDrine 50 mg/mL injection | Given | 01/05/20 | 10 mg | | | | Intravenous, PRN, Starting Tue | | 18 6:11 | | | | | 01/04/18 at 1637, Anesthesia | | PM PDT | | | | | Intra-op | | | | | | + +-------+ +-------+---+---+ +-------+ +-------+---+---+ | Given | 01/05/20 | 10 mg | | | | | 18 5:01 | | | | | | PM PDT | | | | +-------+ +-------+---+---+ | Given | 01/05/20 | 10 mg | | | | | 18 4:37 | | | | | | PM PDT | | | | +-------+ +-------+---+---+ +---+---+ | | | +---+---+ + +-------+ +--------+---+---+ | fentaNYL (PF) injection | Given | 01/05/20 | 50 mcg | | | | Intravenous, PRN, Pain, Starting | | 18 6:00 | | | | | 01/04/18 at 1643, Anesthesia | | PM PDT | | | | | Intra-op | | | | | | + +-------+ +--------+---+---+ +-------+ +--------+---+---+ | Given | 01/05/20 | 50 mcg | | | | | 18 5:24 | | | | | | PM PDT | | | | +-------+ +--------+---+---+ | Given | 01/05/20 | 50 mcg | | | | | 18 4:43 | | | | | | PM PDT | | | | +-------+ +--------+---+---+ +---+---+ | | | +---+---+ + +-------+ +--------+---+---+ | heparin 1,000 units/mL | Given | 01/05/20 | 4,000 | | | | injection Intravenous, PRN, | | 18 6:04 | Units | | | | Starting 01/04/18 at 1804, | | PM PDT | | | | | Anesthesia Intra-op | | | | | | + +-------+ +--------+---+---+ +---+---+ | | | +---+---+ + +-------+ +-------+---+---+ | lidocaine (PF) 1% injection | Given | 01/05/20 | 40 mg | | | | Intravenous, PRN, Starting Tue | | 18 4:31 | | | | | 01/04/18 at 1631, Anesthesia | | PM PDT | | | | | Intra-op | | | | | | + +-------+ +-------+---+---+ +---+---+ | | | +---+---+ + +-------+ +--------+---+---+ | phenylephrine (STEPH-SYNEPHRINE) | Given | 01/05/20 | 50 mcg | | | | 100 mcg/mL injection | | 18 5:07 | | | | | Intravenous, PRN, Starting Tue | | PM PDT | | | | | 01/04/18 at 1707, Anesthesia | | | | | | | Intra-op | | | | | | + +-------+ +--------+---+---+ +---+---+ | | | +---+---+ + +-------+ +-------+---+---+ | propofol (DIPRIVAN) injection | Given | 01/05/20 | 50 mg | | | | Intravenous, PRN, Starting Tue | | 18 4:43 | | | | | 01/04/18 at 1631, Anesthesia | | PM PDT | | | | | Intra-op | | | | | | + +-------+ +-------+---+---+ +-------+ +--------+---+---+ | Given | 01/05/20 | 150 mg | | | | | 18 4:31 | | | | | | PM PDT | | | | +-------+ +--------+---+---+ +---+---+ | | | +---+---+ + +---------+ + +-------+---+ | propofol (DIPRIVAN) injection | New Bag | 01/05/20 | 37.5 | 11.2 | | | Intravenous, CONTINUOUS PRN, | | 18 4:36 | mcg/kg/m | mL/hr | | | Starting 01/04/18 at 1636, | | PM PDT | in | | | | Anesthesia Intra-op | | | | | | + +---------+ + +-------+---+ +---+---+ | | | +---+---+ + +---------+ +---+---+---+ | sodium chloride 0.9% (NS) | New Bag | 01/05/20 | | | | | infusion at 10-100 mL/hr, | | 18 4:10 | | | | | Intravenous, CONTINUOUS, Starting | | PM PDT | | | | | 01/04/18 at 1500, TKO. Use | | | | | | | this instead of LR if both are | | | | | | | ordered., Pre-op | | | | | | + +---------+ +---+---+---+ +---------+ +---+-------+---+ | New Bag | 01/05/20 | | 100 | | | | 18 3:25 | | mL/hr | | | | PM PDT | | | | +---------+ +---+-------+---+ +---+---+ | | | +---+---+ documented in this encounter"
--- OUTSIDE RECORDS SUMMARY | ~2019-05-10 | XMS | Encounter Summary ---
Demographics + + + | Address | [address] | | | [place] [address] | + + + | Home Phone | | + + + | Preferred Language | Unknown | + + + | Marital Status | | + + + | Anabaptist Affiliation | 1038 | + + + | Race | Unknown | + + + | Ethnic Group | Unknown | + + + Author + + + | Author | [facility] | | | and aLloana | + + + | Organization | [facility] | | | and [place] | [...] [place] | | | | | [address] | | + + + + + Care Team Providers + +------+ + | Care Clinical Instructor Name | Role | Phone | + +------+ + PCP | Unavailable | + +------+ + Encounter Details +--------+ + + + + | Date | Type | Department | Care Team | Description | +--------+ + + + + | 10/26/ | Abstract | [facility] | Provider, | Termination of | | 2018 | | SURGERY [address] | MD [address] | (fetus) | | | | [place], [place] | [place] [address] | | | | | [address] | [place] [address] | | | | | [phone] | | | +--------+ + + + [...] + | Diagnosis | + + | Termination of (fetus) | + + documented in this encounter"
--- OUTSIDE RECORDS SUMMARY | ~2019-05-10 | XMS | Encounter Summary ---
Demographics + + + | Address | [address] | | | [place] [address] | + + + | Home Phone | | + + + | Preferred Language | Unknown | + + + | Marital Status | | + + + | Baptism Affiliation | 1038 | + + + | Race | Unknown | + + + | Ethnic Group | Unknown | + + + Author + + + | Author | [facility] | | | and [place] | + + + | Organization | [facility] | | | and [place]ana [...] + | Beverly Perez | ECON | [place] | | | | | [address] | | + + + + + Care Team Providers + +------+ + | Care Mission Worker Name | Role | Phone | [...] | | | | | | | MI AV | | | | | | | ANAST,UP ARM | | | | | | | BASILIC | | | | | | | VEIN | | | | | | | TRANSPOSIT | | | | | | | MI | | | | | | | [...] + + + + | 01/04/ | Hospital | [facility] | Xavier | Acute renal failure | | 2018 | Encounter | MED [facility] | MD Lino, FACS [address] | with acute tubular | | | | [address] | [address] [place] | necrosis | | | | [place], [place] | [place] [address] | superimposed on | | | | [address] | [phone] | chronic kidney | | | | [phone] | | disease, on chronic | | | | | | dialysis (HCC) | +--------+ + + + + Social [...] + + + | Blood Pressure | 111/65 | 01/04/2018 8:55 PM | | | | | PDT | | + + + + + | Pulse | 70 | 01/04/2018 8:55 PM | | | | | PDT | | + + + + + | Temperature | 36.3 C (97.3 F) | 01/04/2018 7:41 PM | | | | | PDT | | + + + + + | Respiratory Rate | 16 | 01/04/2018 8:55 PM | | | | | PDT | | + + + + + | Oxygen Saturation | 100% | 01/04/2018 8:55 PM | | | | | PDT | | + + + + + | Inhaled Oxygen | - | - | | | Concentration | | | | + + + + + | Weight | 49.7 kg (109 lb 9.1 | 01/04/2018 2:18 PM | | | | oz) | PDT | | + + + + + | Height | 165.1 cm (5' 5") | 01/04/2018 2:18 PM | | | | | PDT | | + + + + + | Body Mass Index | 18.23 | 01/04/2018 2:18 PM | | | | | PDT | | + + + + + documented in this encounter Discharge Instructions Instructions Xavier Gallagher MD, GABBI - 01/04/2018[facility] POST-OP INSTRUCTIONS: Arterio-Venous Fistula 1. Keep the operative arm clean and dry for 24 hours. Empty drain morning and evening. 2. Remove bandage in 3-4 days. ( May replace if any wound drainage). 3. NO BP, IV or needles in the arm with the fistula 4. It is helpful to exercise the hand with a squeeze ball. 5. Resume normal activities 6. Resume normal diet. 7. Please call Dr. Gallagher's office today or tomorrow for a followup appointment in 1-2 weeks . . documented in this encounter Medications at Time [...] + + +---------+ + + | B Qfwihfj-O-Kafby | Take 1 Tab by mouth. | [...] + + + +---------+ + + | ALPRAZolam (XANAX | Take by mouth. | | 0 | | | | PO) | Patient not sure of | | | | 8 | | | dose, has not taken | | | | | | | in two weeks. 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 | | | | | + [...] | | | | | | | ([facility]) | | | | | | + + + +---------+ + + | | Take 1-2 tablets by | 30 | 0 | 01/05/20 | | | HYDROcodone-acetamin | mouth every 4 hours | tablet | | 18 | 8 | | ophen (NORCO) 5-325 | as needed for Pain. | | | | | | mg per tablet | | | | | | + + + +---------+ + + | lisinopril | Take 1 tablet by | 30 | 3 | 09/18/19 | | | (PRINIVIL, ZESTRIL) | mouth Daily. | tablet | | 18 | 8 | | 20 mg tablet | | [...] documented as of this encounter Progress Notes Joan Ayoub, PharmD - 01/04/2018 9:07 PM PDT RENAL DOSE ADJUSTMENT PER PHARMACY PROTOCOL: Subjective/Objective: Aurea Perez is a 37 y.o. year old female admitted on 01/04/2018 12:48 and is rece iving FAMOTIDINE. BP 111/63 | Pulse 75 | Temp 36.3 C (97.3 F) (Temporal) | Resp 11 | Ht 1.651 m (5' 5 ") | Wt 49.7 kg (109 lb 9.1 oz) | SpO2 95% | ? No | BMI 18.23 kg/m Intake/Output Summary (Last 24 hours) at 01/04/182105 Last data filed at 01/04/18 1931 Gross per 24 hour Intake 1500 ml Output 10 ml Net 1490 ml Recent Labs Lab 01/04/18 1441 CREA 6.41* Estimated Creatinine Clearance: 9 mL/min (A) (based on SCr of 6.41 mg/dL (H)). Date 01/04 Day of therapy 1 Serum Creatinine 6.41 CrCl (mL/min) 9 Dose - current 20 mg q12hr Dose - new 20 mg q24hr Assessment/Plan: 1. For creatinine clearance <10 mL/min, decrease dose of FAMOTIDINE from 20 mg q12h to 20mg daily for stress ulcer prophylaxis. 2. Pharmacy will continue to follow and adjust dose as appropriate to clinical condition an d creatinine clearance changes RENAL DOSE ADJUSTMENT PROTOCOL Electronically signed by: Joan Ayoub PharmD 01/04/2018 21:06 documented in this encounter Plan of Treatment Not on filedocumented as of this encounter Procedures + +--------+ + + + | Procedure Name | Priori | Date/Time | Associated Diagnosis | Comments | | | ty | | | | + +--------+ + + + | INSERTION AV FISTULA | | 01/04/2018 | ESRD (end stage | | | | | 4:24 PM | renal disease) (HCC) | | | | | PDT | (N18.6) | | + +--------+ + + + +---+--------+ | | | | | Specia | | | l | | | Needs | | | Dr. | | | Field | | | last | | | case | | | of day | +---+--------+ + +--------+ +---+ + | EXTRA LAVENDER TOP | Routin | 01/04/2018 | | Results for this | | TUBE | e | 2:44 PM | | procedure are in the | | | | PDT | | results section. | + +--------+ +---+ + | PROTIME INR | Routin | 01/04/2018 | | Results for this | | | e | 2:44 PM | | procedure are in the | | | | PDT | | results section. | + +--------+ +---+ + | , SERUM, | Routin | 01/04/2018 | | Results for this | | QUAL | e | 2:44 PM | | procedure are in the | | | | PDT | | results section. | + +--------+ +---+ + | CBC WITH | Routin | 01/04/2018 | | Results for this | | DIFFERENTIAL | e | 2:41 PM | | procedure are in the | | | | PDT | | results section. | + +--------+ +---+ + | BASIC METABOLIC | Routin | 01/04/2018 | | Results for this | | PANEL | e | 2:41 PM | | procedure are in the | | | | PDT | | results section. | + +--------+ +---+ + documented in this encounter Results Extra Lavender Top Tube (01/04/2018 2:44 PM PDT) + +-------+ + + + | Component | Value | Ref Range | Performed | Pathologist | | | | | At | Signature | + +-------+ + + + | Extra | Done | | [facility] | | | Lavender | | | [facility] | | | Top Tube | | | MEDICAL | | | | | | CENTER - | | | | | | LABORATORY | | + +-------+ + + + + + | Specimen | + + | Blood | + + + + + + + | Performing | Address | City/State/Zipcode | Phone Number | | Organization | | | | + + + + + | [facility] | [address] | [place] | [phone] | | [facility] | | [address] | | | - LABORATORY | | | | + + + + + , Serum, Qual (01/04/2018 2:44 PM PDT) + + + + + + | Component | Value | Ref Range | Performed | Pathologist | | | | | At | Signature | + + + + + + | hCG Screen, | Negative | Negative | [facility] | | | Serum | | | [facility] | | | | | | MEDICAL | | | | | | CENTER - | | | | | | LABORATORY | | + + + + + + + + | Specimen | + + | Blood | + + + + + + + | Performing | Address | City/State/Zipcode | Phone Number | | Organization | | | | + + + + + | [facility] | [address] | [place] | [phone] | | [facility] | | [address] | | | - LABORATORY | | | | + + + + + Protime INR (01/04/2018 2:44 PM PDT) + + + + + + | Component | Value | Ref Range | Performed | Pathologist | | | | | At | Signature | + + + + + + | Prothrombin | 12.8 | 11.3 - 13.9 | [facility] | | | Time | | seconds | [facility] | | | | | | MEDICAL | | | | | | CENTER - | | | | | | LABORATORY | | + + + + + + | INR | 0.97Comment: Usual Oral | 0.90 - 1.10 | [facility] | | | | Anticoagulation Range: | | [facility] | | | | 2.0 - 3.0High | | MEDICAL | | | | Level Oral | | CENTER - | | | | Anticoagulation Range: | | LABORATORY | | | | 2.5 - 3.5 | | | | + + + + + + + + | Specimen | + + | Blood | + + + + + + + | Performing | Address | City/State/Zipcode | Phone Number | | Organization | | | | + + + + + | [facility] | [address] | [place] | [phone] | | [facility] | | [address] | | | - LABORATORY | | | | + + + + + CBC with Differential (01/04/2018 2:41 PM PDT) + + + + + + | Component | Value | Ref Range | Performed | Pathologist | | | | | At | Signature | + + + + + + | WBC | 8.6 | 4.0 - 11.0 K/uL | [facility] | | | | | | [facility] | | | | | | MEDICAL | | | | | | CENTER - | | | | | | LABORATORY | | + + + + + + | RBC | 4.55 | 3.70 - 5.20 | [facility] | | | | | M/uL | [facility] | | | | | | MEDICAL | | | | | | CENTER - | | | | | | LABORATORY | | + + + + + + | Hemoglobin | 13.4 | 11.5 - 16.0 | [facility] | | | | | g/dL | [facility] | | | | | | MEDICAL | | | | | | CENTER - | | | | | | LABORATORY | | + + + + + + | Hematocrit | 40.1 | 34.0 - 47.0 % | [facility] | | | | | | [facility] | | | | | | MEDICAL | | | | | | CENTER - | | | | | | LABORATORY | | + + + + + + | MCV | 88.1 | 83.0 - 101.0 fL | [facility] | | | | | | [facility] | | | | | | MEDICAL | | | | | | CENTER - | | | | | | LABORATORY | | + + + + + + | MCH | 29.5 | 28.0 - 35.0 pg | [facility] | | | | | | [facility] | | | | | | MEDICAL | | | | | | CENTER - | | | | | | LABORATORY | | + + + + + + | MCHC | 33.5 | 32.0 - 36.0 | [facility] | | | | | g/dL | [facility] | | | | | | MEDICAL | | | | | | CENTER - | | | | | | LABORATORY | | + + + + + + | RDW-CV | 16.8 (H) | <15.0 % | [facility] | | | | | | [facility] | | | | | | MEDICAL | | | | | | CENTER - | | | | | | LABORATORY | | + + + + + + | Platelet | 182 | 140 - 440 K/uL | [facility] | | | Count | | | [facility] | | | | | | MEDICAL | | | | | | CENTER - | | | | | | LABORATORY | | + + + + + + | MPV | 10.6 | fL | [facility] | | | | | | [facility] | | | | | | MEDICAL | | | | | | CENTER - | | | | | | LABORATORY | | + + + + + + | % | 65.0 | 45.0 - 82.0 % | [facility] | | | Neutrophils | | | [facility] | | | | | | MEDICAL | | | | | | CENTER - | | | | | | LABORATORY | | + + + + + + | % | 25.0 | 20.0 - 45.0 % | [facility] | | | Lymphocytes | | | [facility] | | | | | | MEDICAL | | | | | | CENTER - | | | | | | LABORATORY | | + + + + + + | % Monocytes | 7.3 | 4.0 - 12.0 % | [facility] | | | | | | [facility] | | | | | | MEDICAL | | | | | | CENTER - | | | | | | LABORATORY | | + + + + + + | % | 1.9 | 0.0 - 5.0 % | [facility] | | | Eosinophils | | | [facility] | | | | | | MEDICAL | | | | | | CENTER - | | | | | | LABORATORY | | + + + + + + | % Basophils | 0.8 | 0.0 - 1.0 % | [facility] | | | | | | [facility] | | | | | | MEDICAL | | | | | | CENTER - | | | | | | LABORATORY | | + + + + + + | Absolute | 5.60 | 1.80 - 8.50 | [facility] | | | Neutrophils | | K/uL | [facility] | | | | | | MEDICAL | | | | | | CENTER - | | | | | | LABORATORY | | + + + + + + | Absolute | 2.10 | 0.60 - 3.20 | [facility] | | | Lymphocytes | | K/uL | [facility] | | | | | | MEDICAL | | | | | | CENTER - | | | | | | LABORATORY | | + + + + + + | Absolute | 0.60 | 0.00 - 1.00 | [facility] | | | Monocytes | | K/uL | [facility] | | | | | | MEDICAL | | | | | | CENTER - | | | | | | LABORATORY | | + + + + + + | Absolute | 0.20 | 0.00 - 0.40 | [facility] | | | Eosinophils | | K/uL | [facility] | | | | | | MEDICAL | | | | | | CENTER - | | | | | | LABORATORY | | + + + + + + | Absolute | 0.10 | 0.00 - 0.10 | [facility] | | | Basophils | | K/uL | [facility] | | | | | | MEDICAL | | | | | | CENTER - | | | | | | LABORATORY | | + + + + + + + + | Specimen | + + | Blood | + + + + + + + | Performing | Address | City/State/Zipcode | Phone Number | | Organization | | | | + + + + + | [facility] | [address] | [place] | [phone] | | [facility] | | [address] | | | - LABORATORY | | | | + + + + + Basic Metabolic Panel (01/04/2018 2:41 PM PDT) + + + + + + | Component | Value | Ref Range | Performed | Pathologist | | | | | At | Signature | + + + + + + | Na | 134 (L) | 136 - 149 | [facility] | | | | | mmol/L | [facility] | | | | | | MEDICAL | | | | | | CENTER - | | | | | | LABORATORY | | + + + + + + | K | 4.8 | 3.5 - 5.1 | [facility] | | | | | mmol/L | [facility] | | | | | | MEDICAL | | | | | | CENTER - | | | | | | LABORATORY | | + + + + + + | Cl | 95 (L) | 98 - 109 mmol/L | [facility] | | | | | | [facility] | | | | | | MEDICAL | | | | | | CENTER - | | | | | | LABORATORY | | + + + + + + | CO2 | 24 | 24 - 31 mmol/L | [facility] | | | | | | [facility] | | | | | | MEDICAL | | | | | | CENTER - | | | | | | LABORATORY | | + + + + + + | Anion Gap | 15 | 3 - 16 mmol/L | [facility] | | | | | | [facility] | | | | | | MEDICAL | | | | | | CENTER - | | | | | | LABORATORY | | + + + + + + | Glucose | 94 | 70 - 109 mg/dL | [facility] | | | | | | [facility] | | | | | | MEDICAL | | | | | | CENTER - | | | | | | LABORATORY | | + + + + + + | BUN | 26 (H) | 7 - 18 mg/dL | [facility] | | | | | | [facility] | | | | | | MEDICAL | | | | | | CENTER - | | | | | | LABORATORY | | + + + + + + | Creatinine | 6.41 (H) | 0.60 - 1.30 | [facility] | | | | | mg/dL | [facility] | | | | | | MEDICAL | | | | | | CENTER - | | | | | | LABORATORY | | + + + + + + | eGFR if not | 7 (L)Comment: GLOMERULAR | >=60 | [facility] | | | | FILTRATION | mL/min/1.73m2 | [facility] | | | CROATIAN | RATE,ESTIMATED | | MEDICAL | | | | mL/min/1.48w5Wmsa than | | CENTER - | | | | 60 Chronic kidney | | LABORATORY | | | | disease,if found over a | | | | | | 3-month period.Less than | | | | | | 15 Kidney failureFor | | | | | | | | | | | | Americans,multiply the | | | | | | calculated GFR by 1.21. | | | | | | | | | | + + + + + + | Calcium | 9.4 | 8.3 - 10.5 | [facility] | | | | | mg/dL | [facility] | | | | | | MEDICAL | | | | | | CENTER - | | | | | | LABORATORY | | + + + + + + | BUN/Creatin | 4.1 | | [facility] | | | ine Ratio | | | [facility] | | | | | | MEDICAL | | | | | | CENTER - | | | | | | LABORATORY | | + + + + + + + + | Specimen | + + | Blood | + + + + + + + | Performing | Address | City/State/Zipcode | Phone Number | | Organization | | | | + + + + + | [facility] | [address] | [place] | [phone] | | [facility] | | [address] | | | - LABORATORY | | | | + + + + + documented in this encounter Visit Diagnoses + + | Diagnosis | + + | Acute renal failure with acute tubular necrosis superimposed on chronic kidney | | disease, on chronic dialysis (HCC) | + + documented in this encounter Administered Medications + +--------+---------+------+------+------+ | Medication Order | MAR | Action | Dose | Rate | Site | | | Action | Date | | | | + +--------+---------+------+------+------+ + +---+ | albuterol 2.5 mg/3 mL nebulizer | | | solution 2.5 mg 2.5 mg, | | | Nebulization, ONCE PRN, Wheezing, | | | Starting Wed01/04/18 at 1946, | | | For 1 dose, Notify anesthesia if | | | patient is wheezing and does not | | | have a history of asthma or COPD | | | or current smoking., | | | Recovery/Phase I | | + +---+ | | | + +---+ | dextrose 50% injection 12.5-25 | | | g 12.5-25 g, Intravenous, EVERY | | | 15 MIN PRN, Low Blood Sugar, Give | | | 12.5g (25 mL) IV if blood | | | glucose 50-69 mg/dL. Give 25g | | | (50 mL) IV if blood glucose < 50, | | | Starting 01/04/18 at 1433, | | | Repeat in 15 min if blood glucose | | | remains < 70 mg/dL. Repeat | | | blood glucose in 30 min once | | | blood glucose > 70., Pre-op | | + +---+ | | | + +---+ | dextrose 50% injection 12.5-25 | | | g 12.5-25 g, Intravenous, EVERY | | | 15 MIN PRN, Low Blood Sugar, For | | | hypoglycemia. Give 12.5g (25ml) | | | IV if blood glucose 50-69 | | | mg/dL. Give 25g (50ml) IV if | | | blood glucose < 50, Starting Tue | | | 01/04/18 at 1946, Give over 2 min. | | | Repeat in 15 min if blood | | | glucose remains < 70 mg/dL. | | | Repeat blood glucose in 30 min | | | once blood glucose > 70., | | | Recovery/Phase I | | + +---+ | | | + +---+ | famotidine (PEPCID) injection | | | 20 mg 20 mg, Intravenous, DAILY, | | | First dose on Wed01/05/18 at | | | 0900, Dilute 2 mL of famotidine | | | with 8 mL of normal saline to a | | | final concentration of 2 mg/mL. | | | Administer ordered dose over a | | | period of at least 2 minutes., | | + +---+ | | | + +---+ + +-------+ +--------+---+---+ | fentaNYL (PF) injection 25-50 | Given | 01/05/20 | 50 mcg | | | | mcg 25-50 mcg, Intravenous, | | 18 8:01 | | | | | EVERY 5 MIN PRN, Pain, Starting | | PM PDT | | | | | 01/04/18 at 1946, Maximum | | | | | | | total dose 250 mcg. PACU IV | | | | | | | Narcotic Priority: Only use | | | | | | | fentanyl for immediate post-op | | | | | | | pain (one dose) or breakthrough | | | | | | | pain when any other IV narcotics | | | | | | | ordered have been ineffective (if | | | | | | | ordered). If both morphine and | | | | | | | hydromorphone are ordered, use | | | | | | | morphine first, and use | | | | | | | hydromorphone if morphine | | | | | | | ineffective., Recovery/Phase I | | | | | | + +-------+ +--------+---+---+ + +---+ | | | + +---+ | hydrALAZINE (APRESOLINE) | | | injection 5 mg 5 mg, | | | Intravenous, EVERY 20 MINUTES | | | PRN, For SBP > 180, DBP > 100, | | | Starting Wed01/04/18 at 1946, | | | Hold if HR > 100. Maximum total | | | dose 40 mg. Use labetalol first | | | if available., Recovery/Phase I | | + +---+ | | | + +---+ + +-------+ +---------+---+---+ | HYDROcodone-acetaminophen | Given | 01/05/20 | 2 | | | | (NORCO) 5-325 mg per tablet 1-2 | | 18 8:47 | tablets | | | | tablet 1-2 tablet, Oral, EVERY 4 | | PM PDT | | | | | HOURS PRN, Pain, Moderate Pain, | | | | | | | Starting Wed01/04/18 at 2006 | | | | | | + +-------+ +---------+---+---+ + +---+ | | | + +---+ | HYDROmorphone (DILAUDID) | | | injection 0.2-0.5 mg 0.2-0.5 mg, | | | Intravenous, EVERY 5 MIN PRN, | | | Pain, Starting Wed01/04/18 at | | | 1946, Maximum total dose 4 mg. | | | PACU IV Narcotic Priority: Only | | | use fentanyl for immediate | | | post-op pain (one dose) or | | | breakthrough pain when any other | | | IV narcotics ordered have been | | | ineffective (if ordered). If | | | both morphine and hydromorphone | | | are ordered, use morphine first, | | | and use hydromorphone if morphine | | | ineffective., Recovery/Phase I | | + +---+ | | | + +---+ | labetalol (TRANDATE) 5 mg/mL | | | injection 5 mg 5 mg, | | | Intravenous, EVERY 5 MIN PRN, For | | | SBP > 180, DBP > 100, Starting | | | Wed01/04/18 at 1946, Hold if HR < | | | 60.Notify anesthesia if patient | | | requires more than 50mg., | | | Recovery/Phase I | | + +---+ | | | + +---+ + +-------+ +------+---+---+ | ondansetron (ZOFRAN ODT) | Given | 01/05/20 | 8 mg | | | | disintegrating tablet 8 mg 8 mg, | | 18 3:33 | | | | | Oral, ONCE, Wed01/04/18 at 1500, | | PM PDT | | | | | For 1 dose, Pre-op | | | | | | + +-------+ +------+---+---+ +---+---+ | | | +---+---+ + +-------+ +------+---+---+ | ondansetron (ZOFRAN) injection | Given | 01/05/20 | 4 mg | | | | 4 mg 4 mg, Intravenous, ONCE | | 18 8:51 | | | | | PRN, Nausea, Starting Wed01/04/18 | | PM PDT | | | | | at 1946, For 1 dose, | | | | | | | Recovery/Phase I | | | | | | + +-------+ +------+---+---+ + +---+ | | | + +---+ | promethazine (PHENERGAN) (IV | | | ONLY) injection 6.25 mg 6.25 mg, | | | Intravenous, EVERY 15 MIN PRN, | | | Nausea, Vomiting, Starting Tue | | | 01/04/18 at 1946, For 4 doses, | | | TAKE PRECAUTIONS WHEN | | | ADMINISTERING Dilute to 10-20mL | | | with NS. Give over 2-3 minutes | | | into large vein. Use ondansetron | | | first if both are ordered., | | | Recovery/Phase I | | + +---+ | | | + +---+ + +---------+ +---+---+---+ | sodium chloride 0.9% [...] | | | +---+---+ documented in this encounter
--- OUTSIDE RECORDS SUMMARY | ~2019-05-10 | XMS | Encounter Summary ---
Demographics + + + | Address | [address] | | | [place] [address] | + + + | Home Phone | | + + + | Preferred Language | Unknown | + + + | Marital Status | | + + + | Hindu Affiliation | 1038 | + + + | Race | Unknown | + + + | Ethnic Group | Unknown | + + + Author + + + | Author | [facility] | | | and [place] | + + + | Organization | [facility] | | | and [...] [place] | | | | | [address] | | + + + + + Care Team Providers + +------+ + | Care Dairy Quality Assurance Officer Name | Role | Phone | [...] + | 11/15/ | Telephone | [facility] | Jhoana Barreto | Appointment | | 2018 | | NEPHROLOGY [address] | M, DO [address] | | | | | [address] | [address] | | | | | [place], [place] | [place], [place] | | | | | [address] | [address] | | | | | [phone] | | | +--------+ + + + [...]
--- OUTSIDE RECORDS SUMMARY | ~2019-05-10 | XMS | Encounter Summary ---
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 methylPREDNISolone (MEDROL) 4 MG tablet Medrol 4 mg po QID today and then Medrol 4 mg P O TID for one day and then Medrol 4 mg PO BID for one day and then Medrol 4 mg PO q day for 1 day and then stop 10 tablet 0 NIFEdipine (PROCARDIA XL) 60 MG 24 hr tablet Take 60 mg by mouth daily. oxyCODONE (ROXICODONE) 5 MG immediate release tablet Take 5-10 mg by mouth every 6 (six ) hours as needed. sucroferric oxyhydroxide (VELPHORO) 500 MG chewable tablet Take 500 mg by mouth 3 (thre e) times daily with meals. Allergies Allergen Reactions Codeine Anaphylaxis Dilaudid is ok. No reaction there. Percocet is ok Imitrex [Sumatriptan] Anaphylaxis Morphine Headache No family history on file. Social History Social History Marital status: Spouse name: N/A Number of children: N/A Years of education: N/A Occupational History Not on file. Social History Main Topics Smoking status: Current Every Day Smoker Years: 10.00 Smokeless tobacco: Never Used Comment: unable to discuss d/t pt condition Alcohol use No Drug use: Yes Types: Marijuana, Methamphetamines Sexual activity: No Other Topics Concern Not on file Social History Narrative No narrative on file Scheduled Medications b complex-vitamin c-folic acid 1 tablet Oral Daily carvedilol 6.25 mg Oral BID cholecalciferol 1,000 Units Oral Daily heparin (porcine) 5000 unit/0.5mL 5,000 Units Subcutaneous 3 times per day lidocaine 1 mL Intradermal Once lisinopril 20 mg Oral Daily NIFEdipine 60 mg Oral Daily PRN Medications acetaminophen OR acetaminophen, diazePAM, hydrALAZINE OR hydrALAZINE, ketorolac, so dium chloride (bolus) Allergy: Allergies Allergen Reactions Codeine Anaphylaxis Dilaudid is ok. No reaction there. Percocet is ok Imitrex [Sumatriptan] Anaphylaxis Morphine Headache OBJECTIVE Vital Signs: BP 107/67 (BP Location: Left upper arm) | Pulse 88 | Temp 98 F (36.7 C) (Oral) | Res p 26 | Ht 1.676 m (5' 6") | Wt (!) 45 kg (99 lb 3.3 oz) | SpO2 98% | BMI 16.01 kg/m I&O Detailed Table: I/O last 3 completed shifts: In: 1619 [I.V.:319; Other:1300] Out: 4675 [Urine:1475; Other:3200] Weight change: 0.1 kg (3.5 oz) Examination: APPEARANCE: The patient is lying in bed comfortably VITALS: Reviewed as listed. HEAD: NC/AT. +ve pale conjunctiva LUNGS: GOOD A/E on auscultation bilaterally HEART: S1, S2, no pericardial rub noted. ABDOMEN: Full, soft, no tenderness. EXTREMITIES:no pedal edemanoted. NEUROLOGIC: No gross focal motor deficitnoted. BACK: no CVA tenderness noted R UA AVF +ve thrill/ bruit LABS: Recent Results (from the past 24 hour(s)) CBC w/auto diff (reflex to manual) Collection Time: 07/09/18 5:33 AM Result Value Ref Range WBC 11.19 (H) 3.80 - 11.00 K/uL RBC 3.56 (L) 3.70 - 5.10 M/uL HGB 10.3 (L) 11.3 - 15.5 g/dL HCT 31.3 (L) 34.0 - 46.0 % MCV 88.1 80.0 - 100.0 fl MCH 29.0 27.0 - 34.0 pg MCHC 32.9 32.0 - 35.5 g/dL RDW SD 49.0 37 - 53 fl PLT 181 150 - 400 K/uL MPV 9.9 fl DIFF TYPE AUTOMATED NEUTROPHILS 73.06 % LYMPHOCYTES 18.24 % MONOCYTES 7.28 % EOSINOPHILS 1.02 % BASOPHILS 0.40 % NEUTROPHILS ABS 8.18 (H) 1.90 - 7.40 K/uL LYMPHOCYTES ABS 2.04 1.00 - 3.90 K/uL MONOCYTES ABS 0.82 (H) 0.00 - 0.80 K/uL EOSINOPHILS ABS 0.11 0.00 - 0.50 K/uL BASOPHILS ABS 0.05 0.00 - 0.10 K/uL Basic metabolic panel Collection Time: 07/09/18 5:33 AM Result Value Ref Range SODIUM 136 135 - 145 mmol/L POTASSIUM 3.7 3.5 - 4.9 mmol/L CHLORIDE 97 (L) 99 - 109 mmol/L CO2 28 23 - 32 mmol/L ANION GAP AGAP 15 5 - 20 mmol/L GLUCOSE 125 (H) 65 - 99 mg/dL BUN 26 (H) 8 - 25 mg/dL CREATININE 3.2 (H) 0.50 - 1.00 mg/dL BUN/CREAT 8 CALCIUM 8.1 (L) 8.5 - 10.5 mg/dL EGFR 16 (L) >60 mL/min/1.73m2 Magnesium Collection Time: 07/09/18 5:33 AM Result Value Ref Range MAGNESIUM 2.1 1.7 - 2.4 mg/dL Phosphorus Collection Time: 07/09/18 5:33 AM Result Value Ref Range PHOSPHORUS 3.6 2.3 - 4.8 mg/dL IMAGING: X-ray Chest 1 View Result Date: 07/08/2018 This is a non-reportable procedure without a radiologist report and is used for image [employer] only Patient's old records, imaging and labs were reviewed in detail and summarized. PROBLEM LIST Principal Problem: Acute pulmonary edema (HCC) Active Problems: Methamphetamine use Acute respiratory failure with hypoxia (HCC) ESRD (end stage renal disease) (HCC) Hypertensive urgency ASSESSMENT & PLAN Acute Pulmonary edema likely flash in the setting of htn urgency/ non compliance with hd improved s/p Urgent hd/ uf now LOW NA DIET 2GM/ 24 HOURS FLUID RESTRICTION 1.2 LITERS / 24 HOURS DAILY WEIGHTS STRICT I/O ESRD ON HD No need for hd/uf today Assess daily for need for hd & uf Orders in the chart Fluid restriction 1.2 litres/24 hours Strict I & O Daily RFP Renal diet Daily weights will help with subsequent hd with uf Dose all meds per protocol for ESRD on hd ANEMIA in ESRD EPOGEN TO KEEP HGB 10-11 Lab Results Component Value Date HGB 10.3 (L) 07/09/2018 HGB 9.8 (L) 07/08/2018 HGB 9.9 (L) 03/29/2018 FERRITIN 1,230 (H) 04/02/2018 LABIRON 19 04/02/2018 HYPERTENSION Better Controlled Off nitro drip WATCH BP CLOSELY DURING HOSPITALIZATION LOW NA DIET Will adjust BP meds according to BP readings BP Readings from Last 3 Encounters: 07/09/18 107/67 03/29/18 (!) 157/97 01/14/17 160/85 HYPERPHOSPHATEMIA LOW P DIET Lab Results Component Value Date PHOS 3.6 07/09/2018 PHOS 4.6 07/08/2018 PHOS 7.7 (H) 04/01/2018 HYPOALBUMINEMIA INCREASE PROTEIN INTAKE Lab Results Component Value Date ALB 3.8 07/08/2018 ALB 2.6 (L) 04/01/2018 ALB 2.9 (L) 03/22/2018 TRENTON COLES MD 07/09/2018 Sia Zheng Seen earlier and charting completed later Dictation software, Storific, used which may contain error for similar sounding words even af ter review. Personal communication requested for any clarification. onversion Transaction, Provider Unknown - 07/09/2018 10:55 AM PSTFormatting of this note might be different from del avery original. Nurse Progress Note by Gustavo Bush RN at 07/09/18 1055 Author: Gustavo Bush RN Service: (none) Author Type: Registered Nurse Filed: 07/09/18 1056 Date of Service: 07/09/18 1055 Status: Signed Beverage Host: Gustavo Bush RN (Registered Nurse) Report called to Ceasar Cortes, who will assume care of the Pt. Pt is being transferred off the floor now. Edna Azul ARNP - 07/09/2018 6:50 AM PSTFormatting of this note might be different from del avery original. Progress Notes by BLAYNE Orantes at 07/09/18 0650 Author: BLAYNE Orantes Service: Fire Pilot Author Type: Advanced Registered Nu rse Practitioner Filed: 07/09/18 0807 Date of Service: 07/09/18 0650 Status: Signed Beverage Host: BLAYNE Orantes (Advanced Registered Nurse Practitioner) [facility] Service: Fire Pilot Progress Note Aurea Perez 38 y.o. Hospital Day: LOS: 1 day Post-Op Day: * No surgery found * Consulting Physicians Treatment Team: Consulting Physician: Trenton Coles MD Admitting Provider: Tomi Shirley MD SUBJECTIVE Patient Summary: From Edna Cary H&P on 07/09: "The patient is a 38 y.o. 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 She was hypertensive with systolic blood pressures in the 200's & had acu te pulmonary edema. The patient stated she does not remember the last time she had dialysis. She was started on a nitro gtt and placed on BiPAP and transferred for emergent dialysis (n ot available at [facility]). On arrival, patient was hypertensive to the 180's and had crackles th roughout her lung moseley. She was recently admitted from 03/22-03/29 due to acute pulmonary edema due to ESRD/HTN req uiring intubation and eventually left AMA." ICU Timeline: 07/08- Admitted to ICU with appx 3L fluid removal. Hypertensive and remains on nitro. Non- cooperative with nursing staff. Events Overnight: Titrated off nitro. SCHEDULED MEDICATIONS b complex-vitamin c-folic acid 1 tablet Oral Daily carvedilol 6.25 mg Oral BID heparin (porcine) 5000 unit/0.5mL 5,000 Units Subcutaneous 3 times per day lidocaine 1 mL Intradermal Once lisinopril 20 mg Oral Daily NIFEdipine 60 mg Oral Daily CONTINUOUS INFUSIONS OBJECTIVE VITAL SIGNS Temp: [98.1 F (36.7 C)-98.6 F (37 C)] 98.5 F (36.9 C) Heart Rate: [85-117] 89 Resp: [14-74] 16 BP: (98-210)/(48-108) 116/59 Intake/Output Summary (Last 24 hours) at 07/09/18 0650 Last data filed at 07/09/18 0530 Gross per 24 hour Intake 1589 ml Output 4475 ml Net -2886 ml EXAM GEN: sleeping but wakens easily, NAD NEURO: PERRLA, EOMI, no facial asymmetry, moves all extremities well GCS: 15 HEENT: sclerae clear, nonicteric, oral mmm, pink, no exudates NECK: supple, trachea midline CV: RRR, S1/S2, no murmur, rub or gallop, peripheral pulses palpable, cap refill brisk LUNGS: clear b/l, no wheezing, rales or rhonchi, symmetric chest expansion, even/unlabored respirations ABD: soft, nondistended, nontender to palpation, no masses, no hepatosplenomegaly EXTR: no edema, clubbing or cyanosis SKIN: warm, dry, no rash or mottling; no e/o skin breakdown over the occiput, scapulae, elb ows, sacrum or heels LINES/TUBES: PIV DATA Recent Labs Lab 07/09/18 0533 07/08/18 1019 WBC 11.19* 15.44* RBC 3.56* 3.44* HGB 10.3* 9.8* HCT 31.3* 30.3* MCV 88.1 88.0 MCH 29.0 28.6 MCHC 32.9 32.5 RDW 49.0 49.0 PLT 181 170 MPV 9.9 9.4 NEUTROABS 8.18* 13.26* LYMPHSABS 2.04 1.09 MONOSABS 0.82* 1.00* BASOSABS 0.05 0.06 EOSABS 0.11 0.03 MORPH -- RBC AND PLT MORPHOLOGY APPEAR NORMAL Recent Labs Lab 07/08/18 1019 NA 142 K 3.5 CL 106 CO2 23 ANIONGAP 17 GLUF 137* BUN 53* CREATININE 4.57* BCR 12 CA 8.1* ALB 3.8 GLOB 2.5 AG 1.5 PROT 6.3 BILITOT 0.4 ALT 12 AST 13 EGFR 11* PHOS 4.6 MG 1.8 No results for input(s): INR in the last 168 hours. IMAGING No results found. PROBLEM LIST Principal Problem: Acute pulmonary edema (HCC) Active Problems: Methamphetamine use Acute respiratory failure with hypoxia (HCC) ESRD (end stage renal disease) (HCC) Hypertensive urgency Resolved Problems: * No resolved hospital problems. * ASSESSMENT & PLAN NEURO: Meth use - UDS + for meth. Patient has been non cooperative with counseling in the past and has been aggressive. Not requiring precedex at this time CAM-ICU monitoring CV: Hypertensive urgency - resolved, off nitro and back on home meds. Monitor on telemetry PULM: Acute pulmonary edema - due to hypertensive urgency and ESRD/missed dialysis. Received d ialysis yesterday. Improved, now off BiPAP and on RA with oxygen saturations in the 90's Acute hypoxic respiratory failure - as above. GI/NUTRITION: ADAT to renal diet RENAL/LYTES: ESRD on HD. Received dialysis yesterday. Nephrology following. BUN/Cr 51/4.48 at [facility] Renally dose medications, avoid nephrotoxins. Monitor electrolytes and replace per protocol Follow I/O ID: Afebrile, WBC elevated to 21.6 at [facility], may be reactive, trending down now, procal neg. M onitor off abx. Patient refused respiratory filmarray HEME: Monitor CBC/coags ENDO: No hx of diabetes mellitus BS goal 80-180 MUSC/SKIN: Turn and assess skin per protocol Early mobility PROPHYLAXIS: Stress ulcer prophylaxis: n/a DVT prophylaxis: SCDs, heparin VAP bundle: n/a. Disposition: Stable for transfer for medical floor. Report given to Dr. York who has gr aciously accepted this patient to the hospitalist service. Orders placed for transfer. Code Status: Full Code *Please bill 30 minutes of high complexity time spent evaluating the patient, reviewing the data and formulating a plan exclusive of all other procedures. BLAYNE Orantes 07/09/2018 Trenton Rose MD - 07/08/2018 3:20 PM PST Progress Notes by Trenton Coles MD at 07/08/18 1520 Author: Trenton Coles MD Service: Nephrology Author Type: Physician Filed: 07/14/18 6206 Date of Service: 07/08/181519 Status: Signed Beverage Host: Trenton Coles MD (Physician) [facility] Service: NEPHROLOGY DIALYSIS Note Aurea Perez 38 y.o. 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 jesus redmond, very noncompliant with medical treatment and dialysis, Hypertension, h/o methamphetamin e usage and she presented to [facility] in [place] due to worsening shortness of breath along with hypertensive urgency. Nephrology consulted for evaluation and management of acute pulmonary edema in a patient w ith end-stage renal disease ONSET Acute severity Severe, potentially life threatening Associated with fluid electrolyte acid base imbalances Assess need for urgent hd/uf Seen and examined on hd with hd rn Josef tolerating hd/ uf well Access functioning well HD FLOW SHEET REVIEWED C/o h/a, sob improving with hd / uf Past Medical History Diagnosis Date ESRD (end stage renal disease) (HCC) Preeclampsia Past Surgical History Procedure Laterality Date SECTION Prescriptions Prior to Admission Medication Sig Dispense Refill Last Dose acetaminophen (TYLENOL) 325 MG tablet Take 325-650 mg by mouth every 6 (six) hours as n eeded. B Stiqrme-R-Xglpv Acid (RENAL-KIT) 0.8 MG TABS Take 1 tablet by mouth daily. carvedilol (COREG) 6.25 MG tablet Take 6.25 mg by mouth 2 (two) times daily. cholecalciferol (VITAMIN D-3) 1000 units tablet Take 1,000 Units by mouth daily. diphenhydrAMINE (BENADRYL) 25 MG tablet Take 25 mg by mouth nightly as needed. buhgruvumtivaco-oxsnkvakbnqcql-nxxjreta (DUKES MOUTHWASH) suspension Swish and spit 10 mLs every 6 (six) hours as needed for Sore Throat. 240 mL 0 eculizumab (SOLIRIS) 300 MG/30ML injection Inject 1,200 mg into the vein every 30 (thir ty) days. epoetin ant (PROCRIT) 24402 UNIT/ML injection Inject 8,000 Units into the skin 3 (thre e) times a week. famotidine (PEPCID) 20 MG tablet Take 1 tablet by mouth 2 (two) times daily for 14 days . 28 tablet 0 furosemide (LASIX) 40 MG tablet Take 80 mg by mouth daily. lisinopril (ZESTRIL) 20 MG tablet Take 20 mg by mouth daily. methylPREDNISolone (MEDROL) 4 MG tablet Medrol 4 mg po QID today and then Medrol 4 mg P O TID for one day and then Medrol 4 mg PO BID for one day and then Medrol 4 mg PO q day for 1 day and then stop 10 tablet 0 NIFEdipine (PROCARDIA XL) 60 MG 24 hr tablet Take 60 mg by mouth daily. oxyCODONE (ROXICODONE) 5 MG immediate release tablet Take 5-10 mg by mouth every 6 (six ) hours as needed. sucroferric oxyhydroxide (VELPHORO) 500 MG chewable tablet Take 500 mg by mouth 3 (thre e) times daily with meals. Allergies Allergen Reactions Codeine Anaphylaxis Dilaudid is ok. No reaction there. Percocet is ok Imitrex [Sumatriptan] Anaphylaxis No family history on file. Social History Social History Marital status: Spouse name: N/A Number of children: N/A Years of education: N/A Occupational History Not on file. Social History Main Topics Smoking status: Current Every Day Smoker Years: 10.00 Smokeless tobacco: Never Used Comment: unable to discuss d/t pt condition Alcohol use No Drug use: Yes Types: Marijuana, Methamphetamines Sexual activity: No Other Topics Concern Not on file Social History Narrative No narrative on file Scheduled Medications b complex-vitamin c-folic acid 1 tablet Oral Daily carvedilol 6.25 mg Oral BID docusate sodium 100 mg Oral BID Or docusate 100 mg Per OG Tube BID heparin (porcine) 5000 unit/0.5mL 5,000 Units Subcutaneous 3 times per day lidocaine 1 mL Intradermal Once lisinopril 20 mg Oral Daily NIFEdipine 60 mg Oral Daily Continuous Infusions nitroGLYCERIN in D5W 60 mcg/min (07/08/18 1412) PRN Medications acetaminophen OR acetaminophen, hydrALAZINE OR hydrALAZINE, sodium chloride (bolus) Allergy: Allergies Allergen Reactions Codeine Anaphylaxis Dilaudid is ok. No reaction there. Percocet is ok Imitrex [Sumatriptan] Anaphylaxis OBJECTIVE Vital Signs: BP 178/90 | Pulse 101 | Temp 98.5 F (36.9 C) | Resp 17 | Ht 1.676 m (5' 6") | Wt 4 5.2 kg (99 lb 10.4 oz) | SpO2 97% | BMI 16.08 kg/m I&O Detailed Table: I/O last 3 completed shifts: In: 30 [I.V.:30] Out: 200 [Urine:200] Weight change: Examination: Seen on hd with hd rn josef APPEARANCE: The patient is lying in no apparent distress, sleepy but arousable VITALS: Reviewed as listed. HEAD: NC/AT. LUNGS: Bibasilar rales on auscultation bilaterally HEART: S1, S2, no pericardial rub noted. +ve tachycardia ABDOMEN: Full, soft, no tenderness. EXTREMITIES: no pedal edema noted. NEUROLOGIC: No gross focal motor deficit noted. PSYCH: The patient is lethargic, sleepy but arousable BACK: no CVA tenderness noted R UA AVF functioning well LABS: Recent Results (from the past 24 hour(s)) POCT glucose Collection Time: 07/08/18 5:59 AM Result Value Ref Range GLUCOSE,POC SCREEN 137 (H) 65 - 99 mg/dL Urinalysis w/microscopic (reflex to culture) Collection Time: 07/08/18 6:06 AM Result Value Ref Range COLOR UA STRAW CLARITY CLEAR Specific [place], UA 1.005 1.002 - 1.030 LEUKOCYTE ESTERASE MODERATE (A) NEGATIVE NITRITE NEGATIVE NEGATIVE UROBILINOGEN NORMAL <1.1 mg/dL PROTEIN 30 (A) NEGATIVE mg/dL PH,URINE 6.0 5.0 - 8.0 BLOOD SMALL (A) NEGATIVE KETONES NEGATIVE NEGATIVE mg/dL BILIRUBIN NEGATIVE NEGATIVE GLUCOSE NEGATIVE NEGATIVE mg/dL WBC 26-49 0 - 5 /hpf RBC 6-10 0 - 5 /hpf EPITHELIAL 11-15 /lpf BACTERIA 1+ (A) NONE SEEN Mucus, UA 1+ Drugs of Abuse Screen, [facility] and ED Only Collection Time: 07/08/18 6:06 AM Result Value Ref Range AMPHETAMINE/METHAMPHETAMINE POSITIVE (A) NEGATIVE BARBITUATES NEGATIVE NEGATIVE BENZODIAZEPINE NEGATIVE NEGATIVE COCAINE NEGATIVE NEGATIVE METHADONE NEGATIVE NEGATIVE OPIATES NEGATIVE NEGATIVE PCP NEGATIVE NEGATIVE THC POSITIVE (A) NEGATIVE CBC W/Auto Diff (Reflex to Manual) Collection Time: 07/08/18 10:19 AM Result Value Ref Range WBC 15.44 (H) 3.80 - 11.00 K/uL RBC 3.44 (L) 3.70 - 5.10 M/uL HGB 9.8 (L) 11.3 - 15.5 g/dL HCT 30.3 (L) 34.0 - 46.0 % MCV 88.0 80.0 - 100.0 fl MCH 28.6 27.0 - 34.0 pg MCHC 32.5 32.0 - 35.5 g/dL RDW SD 49.0 37 - 53 fl PLT 170 150 - 400 K/uL MPV 9.4 fl DIFF TYPE AUTOMATED NEUTROPHILS 85.91 % LYMPHOCYTES 7.03 % MONOCYTES 6.49 % EOSINOPHILS 0.21 % BASOPHILS 0.36 % NEUTROPHILS ABS 13.26 (H) 1.90 - 7.40 K/uL LYMPHOCYTES ABS 1.09 1.00 - 3.90 K/uL MONOCYTES ABS 1.00 (H) 0.00 - 0.80 K/uL EOSINOPHILS ABS 0.03 0.00 - 0.50 K/uL BASOPHILS ABS 0.06 0.00 - 0.10 K/uL MORPHOLOGY RBC AND PLT MORPHOLOGY APPEAR NORMAL Diff Comment SLIDE SCANNED, AGREES WITH AUTOMATED RESULTS. Comprehensive metabolic panel Collection Time: 07/08/18 10:19 AM Result Value Ref Range SODIUM 142 135 - 145 mmol/L POTASSIUM 3.5 3.5 - 4.9 mmol/L CHLORIDE 106 99 - 109 mmol/L CO2 23 23 - 32 mmol/L ANION GAP AGAP 17 5 - 20 mmol/L GLUCOSE 137 (H) 65 - 99 mg/dL BUN 53 (H) 8 - 25 mg/dL CREATININE 4.57 (H) 0.50 - 1.00 mg/dL BUN/CREAT 12 CALCIUM 8.1 (L) 8.5 - 10.5 mg/dL TOTAL PROTEIN 6.3 6.3 - 8.2 g/dL Albumin 3.8 3.6 - 5.0 g/dL GLOBULIN 2.5 1.3 - 4.9 g/dL A/G 1.5 1.0 - 2.4 TBIL 0.4 0.1 - 1.5 mg/dL ALK PHOS 74 35 - 115 U/L AST 13 10 - 45 U/L ALT 12 10 - 65 U/L EGFR 11 (L) >60 mL/min/1.73m2 Magnesium Collection Time: 07/08/18 10:19 AM Result Value Ref Range MAGNESIUM 1.8 1.7 - 2.4 mg/dL Phosphorus Collection Time: 07/08/18 10:19 AM Result Value Ref Range PHOSPHORUS 4.6 2.3 - 4.8 mg/dL Procalcitonin Collection Time: 07/08/18 10:19 AM Result Value Ref Range PROCALCITONIN 0.42 <0.5 ng/mL IMAGING: X-ray Chest 1 View Result Date: 07/08/2018 This is a non-reportable procedure without a radiologist report and is used for image stora ge only Patient's old records, imaging and labs were reviewed in detail and summarized. PROBLEM LIST Principal Problem: Acute pulmonary edema (HCC) Active Problems: Methamphetamine use Acute respiratory failure with hypoxia (HCC) ESRD (end stage renal disease) (HCC) Hypertensive urgency ASSESSMENT & PLAN Acute Pulmonary edema likely flash in the setting of htn urgency/ non compliance with hd Getting Urgent hd/ uf now On nitro drip LOW NA DIET 2GM/ 24 HOURS FLUID RESTRICTION 1.2 LITERS / 24 HOURS DAILY WEIGHTS STRICT I/O ESRD ON HD Getting Urgent hd/ uf now Seen and examined on hd tolerating hd/ uf well Access functioning well HD FLOW SHEET REVIEWED Assess daily for need for hd & uf Orders in the chart Fluid restriction 1.2 litres/24 hours Strict I & O Daily RFP Renal diet Daily weights will help with subsequent hd with uf Dose all meds per protocol for ESRD on hd ANEMIA in ESRD Hold EPOGEN TO KEEP HGB 10-11 give uncontrolled htn for today Lab Results Component Value Date HGB 9.8 (L) 07/08/2018 HGB 9.9 (L) 03/29/2018 HGB 9.7 (L) 03/28/2018 FERRITIN 1,230 (H) 04/02/2018 LABIRON 19 04/02/2018 HYPERTENSION Urgency improving On nitro drip WATCH BP CLOSELY DURING HOSPITALIZATION LOW NA DIET Will adjust BP meds according to BP readings BP Readings from Last 3 Encounters: 07/08/18 178/90 03/29/18 (!) 157/97 01/14/17 160/85 HYPERPHOSPHATEMIA LOW P DIET RESUME PO4 BINDERS Lab Results Component Value Date PHOS 4.6 07/08/2018 PHOS 7.7 (H) 04/01/2018 PHOS 3.0 03/29/2018 HYPOALBUMINEMIA INCREASE PROTEIN INTAKE Lab Results Component Value Date ALB 3.8 07/08/2018 ALB 2.6 (L) 04/01/2018 ALB 2.9 (L) 03/22/2018 TRENTON COLES MD 07/08/2018 Sia Zheng Seen earlier and charting completed later Dictation software, Stor[employer], used which may contain error for similar sounding words even af ter review. Personal communication requested for any clarification. onversion Transaction, Provider Unknown - 07/08/2018 1:59 PM PSTFormatting of this note might be different from t he original. Progress Notes by Antonina Darnell RD at 07/08/18 7017 Author: Antonina Darnell RD Service: (none) Author Type: Registered Dietitian Filed: 07/08/18 0866 Date of Service: 07/08/18 7834 Status: Signed Beverage Host: Antonina Darnell RD (Registered Dietitian) 07/08/18 1343 Subjective Timepoint Admit Pt c/o Routine ICU consult received; pt also triggered for low BMI. Pt admitted for acute p ulmonary edema. Pt noted to be lethargic and very agitated - did not talk with her. Per note s pt receives HD, but is unable to remember her last tx. Pt noted to test positive for meth use. Pt has a peritonsiller abscess. Pt was previously admitted in March 2018 and left AMA at that time and has been saying she would like to leave AMA again this admit. Diet Experience Self-selected diet(s) followed Unable to obtain at this time. Fluid / Beverage Intake Oral Fluids Amount Ad halie. Food Intake Amount of Food Unsure of PO intake. Pt's diet was just advanced earlier this AM. Type of Food / Meals Renal Micronutrient Intake Vitamin Intake Other (Comment) (B complex - vit C - folic acid) Nutrition-Focused Physical Findings Nerves and Cognition Lethargic and agitated. Anthropometrics Weight change Admitted at 45.2 kg, is 76% of her IBW, and has a BMI of 16.08. Pt is noted t o be underweight. Ideally, it would be best for pt to gain weight to at least IBW range. 570 mL fluid negative. Estimated Energy Needs Total Energy Estimated Needs 2809-7520 kcal/day Method for Estimating Needs 30-35 kcal/kg based on admit wt 45.2 kg Estimated Protein Needs Total Protein Estimated Needs 54-68 g/day Method for Estimating Needs 1.2-1.5 g/kg based on admit wt 45.2 kg Recommendations Recommended energy needs Continue renal diet, as ordered. Encourage intake of consistent me als/snacks daily. Dietary supplements can be provided PRN. Will continue to follow per nutri tion protocol. Nutritional Risk Nutritional risk Moderate / high Follow up date 07/12/[address] Cara Hyltonaction, Provider Unknown - 07/08/2018 10:55 AM PST Case Management by DAHIANA Cerrato at 07/08/18 1055 Author: DAHIANA Cerrato Service: (none) Author Type: Ice Cream Truck Driver Filed: 07/08/18 1100 Date of Service: 07/08/18 105 Status: Signed Beverage Host: DAHIANA Cerrato (Ice Cream Truck Driver) Attended morning rounds. Pt known to me from her hospitalization in March 2018. Below i s assessment from that time. Per 7[address] floor CM notes, pt left AMA in last admission. Pt's tox screen positive for meth and MJ. Pt wants to leave AMA again. Pt lives in [facility]. Contacts per prior notes: Grandfather- Erik- [phone] Nancy-Aunt- [phone] Radha - mother- [phone] Cara ware Transaction, Provider Unknown - 07/08/2018 9:01 AM PST Therapy Progress Note by Emanuel Stringer PT at 07/08/18 0901 Author: Emanuel Stringer PT Service: (none) Author Type: Physical Therapist Filed: 07/08/18 1126 Date of Service: 07/08/18 09 Status: Signed Beverage Host: Emanuel Stringer PT (Physical Therapist) 07/08/18 09 PT Last Visit PT Received On 07/08/18 (Declined PT evaluation. RN present and aware. Will follow) Requires PT Follow Up Refused (up tomorrow) onver chaz Transaction, Provider Unknown - 07/08/2018 6:34 AM PST Progress Notes by Sudeep Lorenzana RPH at 07/08/18633 Author: Sudeep Lorenzana RPH Service: Pharmacy Author Type: Pharmacist Filed: 07/08/18633 Date of Service: 07/08/18633 Status: Signed Beverage Host: Sudeep Lorenzana RPH (Pharmacist) Renal Dosing Monitoring: S: Renal dose monitoring per protocol. O: Dialysis?: Yes A: No adjustments needed at this time. P: Pharmacy will continue monitoring patient for appropriate dosing based on renal functio n. Pharmacist: Sudeep Lorenzana PharmD Electronically signed by [facility], Provider at 01/15/2019 6:16 AM PDTConver chaz Transaction, Provider Unknown - 07/08/2018 6:22 AM PST Nurse Progress Note by Heather Freire RN at 07/08/18621 Author: Heather Freire RN Service: (none) Author Type: Registered Nurse Filed: 07/08/18626 Date of Service: 07/08/18621 Status: Signed Beverage Host: Heather Freire RN (Registered Nurse) Pt arrived per EMS at 0536. Pt refuses care, refuses MRSA swab,refuses to answer questions . She is lethargic at present. She received Ativan 1 mg IV per EMS on drive over from [facility]. She states she just wants to sleep. She refuses to answer admission questions. Dr. Urena advised of this. Bed alarm on. 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 Pt did void per bedpan and UA sent. NTG drip continues to keep SBP less than 180. docume nted in this encounter Plan of Treatment Not on filedocumented as of this encounter Procedures + +--------+ + + + | Procedure Name | Priori | Date/Time | Associated Diagnosis | Comments | | | ty | | | | + +--------+ + + + | EXTERNAL LAB: CBC | Routin | 07/10/2018 | | Results for this | | | e | 4:32 AM | | procedure are in the | | | | PST | | results section. | + +--------+ + + + | PHOSPHORUS | Routin | 07/10/2018 | | Results for this | | | e | 4:32 AM | | procedure are in the | | | | PST | | results section. | + +--------+ + + + | MAGNESIUM | Routin | 07/10/2018 | | Results for this | | | e | 4:32 AM | | procedure are in the | | | | PST | | results section. | + +--------+ + + + | BASIC METABOLIC | Routin | 07/10/2018 | | Results for this | | PANEL | e | 4:32 AM | | procedure are in the | | | | PST | | results section. | + +--------+ + + + | EXTERNAL LAB: CBC | Routin | 07/09/2018 | | Results for this | | | e | 5:33 AM | | procedure are in the | | | | PST | | results section. | + +--------+ + + + | PHOSPHORUS | Routin | 07/09/2018 | | Results for this | | | e | 5:33 AM | | procedure are in the | | | | PST | | results section. | + +--------+ + + + | MAGNESIUM | Routin | 07/09/2018 | | Results for this | | | e | 5:33 AM | | procedure are in the | | | | PST | | results section. | + +--------+ + + + | BASIC METABOLIC | Routin | 07/09/2018 | | Results for this | | PANEL | e | 5:33 AM | | procedure are in the | | | | PST | | results section. | + +--------+ + + + | EXTERNAL LAB: CBC | Routin | 07/08/2018 | | Results for this | | | e | 10:19 AM | | procedure are in the | | | | PST | | results section. | + +--------+ + + + | PROCALCITONIN, SERUM | Routin | 07/08/2018 | | Results for this | | | e | 10:19 AM | | procedure are in the | | | | PST | | results section. | + +--------+ + + + | PHOSPHORUS | Routin | 07/08/2018 | | Results for this | | | e | 10:19 AM | | procedure are in the | | | | PST | | results section. | + +--------+ + + + | MAGNESIUM | Routin | 07/08/2018 | | Results for this | | | e | 10:19 AM | | procedure are in the | | | | PST | | results section. | + +--------+ + + + | COMPREHENSIVE | Routin | 07/08/2018 | | Results for this | | METABOLIC PANEL | e | 10:19 AM | | procedure are in the | | | | PST | | results section. | + +--------+ + + + | CULTURE, URINE | Routin | 07/08/2018 | | Results for this | | | e | 6:20 AM | | procedure are in the | | | | PST | | results section. | + +--------+ + + + | DRUGS OF ABUSE | Routin | 07/08/2018 | | Results for this | | SCREEN, URINE (H) | e | 6:06 AM | | procedure are in the | | | | PST | | results section. | + +--------+ + + + | URINALYSIS WITH | Routin | 07/08/2018 | | Results for this | | MICROSCOPIC WITH | e | 6:06 AM | | procedure are in the | | CULTURE IF INDICATED | | PST | | results section. | + +--------+ + + + | POC GLUCOSE | Routin | 07/08/2018 | | Results for this | | | e | 5:59 AM | | procedure are in the | | | | PST | | results section. | + +--------+ + + + documented in this encounter Results External Lab: DAMIAN (07/10/2018 4:32 AM PST) + + + + + + | Component | Value | Ref Range | Performed | Pathologist | | | | | At | Signature | + + + + + + | WBC | 8.57 | 3.80 - 11.00 | EXTERNAL | | | | | K/uL | LAB | | + + + + + + | RED CELL | 3.11 (L) | 3.70 - 5.10 | EXTERNAL | | | COUNT | | M/uL | LAB | | + + + + + + | Hgb | 9.1 (L) | 11.3 - 15.5 | EXTERNAL | | | | | g/dL | LAB | | + + + + + + | Hematocrit, | 27.5 (L) | 34.0 - 46.0 % | EXTERNAL | | | POC | | | LAB | | + + + + + + | MCV | 88.4 | 80.0 - 100.0 fl | EXTERNAL | | | | | | LAB | | + + + + + + | MCH | 29.1 | 27.0 - 34.0 pg | EXTERNAL | | | | | | LAB | | + + + + + + | MCHC | 33.0 | 32.0 - 35.5 | EXTERNAL | | | | | g/dL | LAB | | + + + + + + | RDW-CV | 49.0 | 37 - 53 fl | EXTERNAL | | | | | | LAB | | + + + + + + | Platelet | 173 | 150 - 400 K/uL | EXTERNAL | | | Count | | | LAB | | | Plasma | | | | | + + + + + + | MPV | 9.8 | fl | EXTERNAL | | | | | | LAB | | + + + + + + | Differentia | AUTOMATED | | EXTERNAL | | | l Type | | | LAB | | + + + + + + | % Segmented | 60.03 | % | EXTERNAL | | | | | | LAB | | | Neutrophils | | | | | + + + + + + | % | 28.22 | % | EXTERNAL | | | Lymphocytes | | | LAB | | + + + + + + | % Monocytes | 8.73 | % | EXTERNAL | | | | | | LAB | | + + + + + + | % | 2.74 | % | EXTERNAL | | | Eosinophils | | | LAB | | + + + + + + | % Basophils | 0.28 | % | EXTERNAL | | | | | | LAB | | + + + + + + | Absolute | 5.15 | 1.90 - 7.40 | EXTERNAL | | | Segmented | | K/uL | LAB | | | Neutrophils | | | | | + + + + + + | Absolute | 2.42 | 1.00 - 3.90 | EXTERNAL | | | Lymphocytes | | K/uL | LAB | | + + + + + + | Absolute | 0.75 | 0.00 - 0.80 | EXTERNAL | | | Monocytes | | K/uL | LAB | | + + + + + + | Absolute | 0.24 | 0.00 - 0.50 | EXTERNAL | | | Eosinophils | | K/uL | LAB | | + + + + + + | Absolute | 0.02Comment: Testing | 0.00 - 0.10 | EXTERNAL | | | Basophils | performed at [facility], [address] | K/[address] | LAB | | | | [address], | | | | | | [place] [address] | | | | + + + + + + + + | Specimen | + + | Blood specimen | | (specimen) | + + + +---------+ + + | Performing | Address | City/State/Zipcode | Phone Number | | Organization | | | | + +---------+ + + | EXTERNAL LAB | | | | + +---------+ + + Phosphorus (07/10/2018 4:32 AM PST) + + + + + + | Component | Value | Ref Range | Performed | Pathologist | | | | | At | Signature | + + + + + + | PHOSPHORUS | 2.6Comment: Testing | 2.3 - 4.8 mg/dL | EXTERNAL | | | | performed at [facility], [address] | | LAB | | | | [address], | | | | | | [place] [address] | | | | + + + + + + + + | Specimen | + + | Blood specimen | | (specimen) | + + + +---------+ + + | Performing | Address | City/State/Zipcode | Phone Number | | Organization | | | | + +---------+ + + | EXTERNAL LAB | | | | + +---------+ + + Magnesium (07/10/2018 4:32 AM PST) + + + + + + | Component | Value | Ref Range | Performed | Pathologist | | | | | At | Signature | + + + + + + | Magnesium | 2.0Comment: Testing | 1.7 - 2.4 mg/dL | EXTERNAL | | | | performed at [facility], [address] | | LAB | | | | [address], | | | | | | [place] [address] | | | | + + + [...] + +---------+ + + Basic Metabolic Panel (07/10/2018 4:32 AM PST) + + + + + + | Component | Value | Ref Range | Performed | Pathologist | | | | | At | Signature | + + + + + + | Na | 137 | 135 - 145 | EXTERNAL | | | | | mmol/L | LAB | | + + + + + + | K | 3.6 | 3.5 - 4.9 | EXTERNAL | | | | | mmol/L | LAB | | + + + + + + | Cl | 100 | 99 - 109 mmol/L | EXTERNAL | | | | | | LAB | | + + + + + + | CO2 | 24 | 23 - 32 mmol/L | EXTERNAL | | | | | | LAB | | + + + + + + | Anion Gap | 17 | 5 - 20 mmol/L | EXTERNAL | | | | | | LAB | | + + + + + + | Glucose, | 90 | 65 - 99 mg/dL | EXTERNAL | | | Fasting | | | LAB | | + + + + + + | BUN | 54 (H) | 8 - 25 mg/dL | EXTERNAL | | | | | | LAB | | + + + + + + | Creatinine | 4.6 (H) | 0.50 - 1.00 | EXTERNAL | | | | | mg/dL | LAB | | + + + + + + | BUN/Creatin | 12 | | EXTERNAL | | | ine Ratio | | | LAB | | + + + + + + | Calcium | 8.0 (L) | 8.5 - 10.5 | EXTERNAL | | | | | mg/dL | LAB | | + + + + + + | Estimated | 11 (L)Comment: GFR <60: | mL/min/1.73m2 | EXTERNAL | | | GFR | CHRONIC KIDNEY DISEASE, | | LAB | | | | IF FOUND OVER A 3 MONTH | | | | | | PERIOD.GFR <15: KIDNEY | | | | | | FAILURE.FOR | | | | | | AMERICANS, MULTIPLY THE | | | | | | CALCULATED GFR BY | | | | | | 1.210.This eGFR is | | | | | | calculated using the | | | | | | MDRD IDWV traceable | | | | | | equation.Testing | | | | | | performed at [facility], [address] | | | | | | [facility], | | | | | | [place] [address] | | | | + + + [...] + +---------+ + + External Lab: CBC (07/09/2018 5:33 AM PST) + + + + + + | Component | Value | Ref Range | Performed | Pathologist | | | | | At | Signature | + + + + + + | WBC | 11.19 (H) | 3.80 - 11.00 | EXTERNAL | | | | | K/uL | LAB | | + + + + + + | RED CELL | 3.56 (L) | 3.70 - 5.10 | EXTERNAL | | | COUNT | | M/uL | LAB | | + + + + + + | Hgb | 10.3 (L) | 11.3 - 15.5 | EXTERNAL | | | | | g/dL | LAB | | + + + + + + | Hematocrit, | 31.3 (L) | 34.0 - 46.0 % | EXTERNAL | | | POC | | | LAB | | + + + + + + | MCV | 88.1 | 80.0 - 100.0 fl | EXTERNAL | | | | | | LAB | | + + + + + + | MCH | 29.0 | 27.0 - 34.0 pg | EXTERNAL | | | | | | LAB | | + + + + + + | MCHC | 32.9 | 32.0 - 35.5 | EXTERNAL | | | | | g/dL | LAB | | + + + + + + | RDW-CV | 49.0 | 37 - 53 fl | EXTERNAL | | | | | | LAB | | + + + + + + | Platelet | 181 | 150 - 400 K/uL | EXTERNAL | | | Count | | | LAB | | | Plasma | | | | | + + + + + + | MPV | 9.9 | fl | EXTERNAL | | | | | | LAB | | + + + + + + | Differentia | AUTOMATED | | EXTERNAL | | | l Type | | | LAB | | + + + + + + | % Segmented | 73.06 | % | EXTERNAL | | | | | | LAB | | | Neutrophils | | | | | + + + + + + | % | 18.24 | % | EXTERNAL | | | Lymphocytes | | | LAB | | + + + + + + | % Monocytes | 7.28 | % | EXTERNAL | | | | | | LAB | | + + + + + + | % | 1.02 | % | EXTERNAL | | | Eosinophils | | | LAB | | + + + + + + | % Basophils | 0.40 | % | EXTERNAL | | | | | | LAB | | + + + + + + | Absolute | 8.18 (H) | 1.90 - 7.40 | EXTERNAL | | | Segmented | | K/uL | LAB | | | Neutrophils | | | | | + + + + + + | Absolute | 2.04 | 1.00 - 3.90 | EXTERNAL | | | Lymphocytes | | K/uL | LAB | | + + + + + + | Absolute | 0.82 (H) | 0.00 - 0.80 | EXTERNAL | | | Monocytes | | K/uL | LAB | | + + + + + + | Absolute | 0.11 | 0.00 - 0.50 | EXTERNAL | | | Eosinophils | | K/uL | LAB | | + + + + + + | Absolute | 0.05Comment: Testing | 0.00 - 0.10 | EXTERNAL | | | Basophils | performed at [facility], [address] | [address] | LAB | | | | [address], | | | | | | [place] [address] | | | | + + + + + + + + | Specimen | + + | Blood specimen | | (specimen) | + + + +---------+ + + | Performing | Address | City/State/Zipcode | Phone Number | | Organization | | | | + +---------+ + + | EXTERNAL LAB | | | | + +---------+ + + Phosphorus (07/09/2018 5:33 AM PST) + + + + + + | Component | Value | Ref Range | Performed | Pathologist | | | | | At | Signature | + + + + + + | PHOSPHORUS | 3.6Comment: Testing | 2.3 - 4.8 mg/dL | EXTERNAL | | | | performed at [facility], [address] | | LAB | | | | [address], | | | | | | [place] [address] | | | | + + + + + + + + | Specimen | + + | Blood specimen | | (specimen) | + + + +---------+ + + | Performing | Address | City/State/Zipcode | Phone Number | | Organization | | | | + +---------+ + + | EXTERNAL LAB | | | | + +---------+ + + Magnesium (07/09/2018 5:33 AM PST) + + + + + + | Component | Value | Ref Range | Performed | Pathologist | | | | | At | Signature | + + + + + + | Magnesium | 2.1Comment: Testing | 1.7 - 2.4 mg/dL | EXTERNAL | | | | performed at [facility], [address] | | LAB | | | | [address], | | | | | | [place] [address] | | | | + + + [...] + +---------+ + + Basic Metabolic Panel (07/09/2018 5:33 AM PST) + + + + + + | Component | Value | Ref Range | Performed | Pathologist | | | | | At | Signature | + + + + + + | Na | 136 | 135 - 145 | EXTERNAL | | | | | mmol/L | LAB | | + + + + + + | K | 3.7 | 3.5 - 4.9 | EXTERNAL | | | | | mmol/L | LAB | | + + + + + + | Cl | 97 (L) | 99 - 109 mmol/L | EXTERNAL | | | | | | LAB | | + + + + + + | CO2 | 28 | 23 - 32 mmol/L | EXTERNAL | | | | | | LAB | | + + + + + + | Anion Gap | 15 | 5 - 20 mmol/L | EXTERNAL | | | | | | LAB | | + + + + + + | Glucose, | 125 (H) | 65 - 99 mg/dL | EXTERNAL | | | Fasting | | | LAB | | + + + + + + | BUN | 26 (H) | 8 - 25 mg/dL | EXTERNAL | | | | | | LAB | | + + + + + + | Creatinine | 3.2 (H) | 0.50 - 1.00 | EXTERNAL | | | | | mg/dL | LAB | | + + + + + + | BUN/Creatin | 8 | | EXTERNAL | | | ine Ratio | | | LAB | | + + + + + + | Calcium | 8.1 (L) | 8.5 - 10.5 | EXTERNAL | | | | | mg/dL | LAB | | + + + + + + | Estimated | 16 (L)Comment: GFR <60: | mL/min/1.73m2 | EXTERNAL | | | GFR | CHRONIC KIDNEY DISEASE, | | LAB | | | | IF FOUND OVER A 3 MONTH | | | | | | PERIOD.GFR <15: KIDNEY | | | | | | FAILURE.FOR | | | | | | AMERICANS, MULTIPLY THE | | | | | | CALCULATED GFR BY | | | | | | 1.210.This eGFR is | | | | | | calculated using the | | | | | | MDRD IDMS traceable | | | | | | equation.Testing | | | | | | performed at [facility], [address] | | | | | | [facility], | | | | | | [place] [address] | | | | + + + + + + + + | Specimen | + + | Blood specimen | | (specimen) | + + + +---------+ + + | Performing | Address | City/State/Zipcode | Phone Number | | Organization | | | | + +---------+ + + | EXTERNAL LAB | | | | + +---------+ + + Procalcitonin (07/08/2018 10:19 AM PST) + + + + + + | Component | Value | Ref Range | Performed | Pathologist | | | | | At | Signature | + + + + + + | PROCALCITON | 0.42Comment: | ng/mL | EXTERNAL | | | IN | INTERPRETIVE | | LAB | | | | INFORMATION: | | | | | | PROCALCITONIN PCT <= | | | | | | 0.5 ng/mL: Low risk | | | | | | for progression to | | | | | | severe systemic | | | | | | bacterial infection | | | | | | (severe sepsis/septic | | | | | | shock). Does not | | | | | | exclude an infection, | | | | | | because localized | | | | | | infections may be | | | | | | associated with such low | | | | | | levels. If PCT is | | | | | | measured very early | | | | | | after bacterial | | | | | | challenge (usually <6 | | | | | | hours), results may | | | | | | still be low and | | | | | | should re-assess PCT | | | | | | 6-24 hours later. PCT | | | | | | >0.5 and <= 2 ng/mL: | | | | | | Moderate risk for | | | | | | progression to severe | | | | | | systemic infection | | | | | | (severe sepsis/septic | | | | | | shock). Other | | | | | | conditions are known | | | | | | to elevate PCT, patient | | | | | | should be closely | | | | | | monitored both | | | | | | clinically and by | | | | | | re-assessing PCT | | | | | | within 6-24 hours. PCT > | | | | | | 2 ng/mL: High | | | | | | likelihood for | | | | | | progression to severe | | | | | | systemic bacterial | | | | | | infection (severe | | | | | | sepsis/septic shock). | | | | | | PCT >= 10 ng/mL: | | | | | | High likelihood of | | | | | | severe sepsis or septic | | | | | | shock.Testing performed | | | | | | at [facility];[address] [place] [address] | | | | | | Blvd;[place] [address] | | | | + + + + + + + + | Specimen | + + | | + + + +---------+ + + | Performing | Address | City/State/Zipcode | Phone Number | | Organization | | | | + +---------+ + + | EXTERNAL LAB | | | | + +---------+ + + External Lab: CBC (07/08/2018 10:19 AM PST) + + + + + + | Component | Value | Ref Range | Performed | Pathologist | | | | | At | Signature | + + + + + + | WBC | 15.44 (H) | 3.80 - 11.00 | EXTERNAL | | | | | K/uL | LAB | | + + + + + + | RED CELL | 3.44 (L) | 3.70 - 5.10 | EXTERNAL | | | COUNT | | M/uL | LAB | | + + + + + + | Hgb | 9.8 (L) | 11.3 - 15.5 | EXTERNAL | | | | | g/dL | LAB | | + + + + + + | Hematocrit, | 30.3 (L) | 34.0 - 46.0 % | EXTERNAL | | | POC | | | LAB | | + + + + + + | MCV | 88.0 | 80.0 - 100.0 fl | EXTERNAL | | | | | | LAB | | + + + + + + | MCH | 28.6 | 27.0 - 34.0 pg | EXTERNAL | | | | | | LAB | | + + + + + + | MCHC | 32.5 | 32.0 - 35.5 | EXTERNAL | | | | | g/dL | LAB | | + + + + + + | RDW-CV | 49.0 | 37 - 53 fl | EXTERNAL | | | | | | LAB | | + + + + + + | Platelet | 170 | 150 - 400 K/uL | EXTERNAL | | | Count | | | LAB | | | Plasma | | | | | + + + + + + | MPV | 9.4 | fl | EXTERNAL | | | | | | LAB | | + + + + + + | Differentia | AUTOMATED | | EXTERNAL | | | l Type | | | LAB | | + + + + + + | % Segmented | 85.91 | % | EXTERNAL | | | | | | LAB | | | Neutrophils | | | | | + + + + + + | % | 7.03 | % | EXTERNAL | | | Lymphocytes | | | LAB | | + + + + + + | % Monocytes | 6.49 | % | EXTERNAL | | | | | | LAB | | + + + + + + | % | 0.21 | % | EXTERNAL | | | Eosinophils | | | LAB | | + + + + + + | % Basophils | 0.36 | % | EXTERNAL | | | | | | LAB | | + + + + + + | Absolute | 13.26 (H) | 1.90 - 7.40 | EXTERNAL | | | Segmented | | K/uL | LAB | | | Neutrophils | | | | | + + + + + + | Absolute | 1.09 | 1.00 - 3.90 | EXTERNAL | | | Lymphocytes | | K/uL | LAB | | + + + + + + | Absolute | 1.00 (H) | 0.00 - 0.80 | EXTERNAL | | | Monocytes | | K/uL | LAB | | + + + + + + | Absolute | 0.03 | 0.00 - 0.50 | EXTERNAL | | | Eosinophils | | K/uL | LAB | | + + + + + + | Absolute | 0.06 | 0.00 - 0.10 | EXTERNAL | | | Basophils | | K/uL | LAB | | + + + + + + | RBC | RBC AND PLT MORPHOLOGY | | EXTERNAL | | | Morphology | APPEAR NORMAL | | LAB | | + + + + + + | Differentia | SLIDE SCANNED, AGREES | | EXTERNAL | | | l Comments | WITH AUTOMATED | | LAB | | | | RESULTS.Comment: Testing | | | | | | performed at [facility];[address] | | | | | [facility];[place], [place] | | | | | | [address] | | | | + + + + + + + + | Specimen | + + | Blood specimen | | (specimen) | + + + +---------+ + + | Performing | Address | City/State/Zipcode | Phone Number | | Organization | | | | + +---------+ + + | EXTERNAL LAB | | | | + +---------+ + + Phosphorus (07/08/2018 10:19 AM PST) + + + + + + | Component | Value | Ref Range | Performed | Pathologist | | | | | At | Signature | + + + + + + | PHOSPHORUS | 4.6Comment: Testing | 2.3 - 4.8 mg/dL | EXTERNAL | | | | performed at [facility];[address] | [address] | | | | [address];[place], [place] | | | | | | [address] | | | | + + + + + + + + | Specimen | + + | Blood specimen | | (specimen) | + + + +---------+ + + | Performing | Address | City/State/Zipcode | Phone Number | | Organization | | | | + +---------+ + + | EXTERNAL LAB | | | | + +---------+ + + Magnesium (07/08/2018 10:19 AM PST) + + + + + + | Component | Value | Ref Range | Performed | Pathologist | | | | | At | Signature | + + + + + + | Magnesium | 1.8Comment: Testing | 1.7 - 2.4 mg/dL | EXTERNAL | | | | performed at [facility];[address] | | [address] | | | | [address];[place] | | | | | | [address] | | | | + + + [...] + +---------+ + + Comprehensive Metabolic Panel (07/08/2018 10:19 AM PST) + + + + + + | Component | Value | Ref Range | Performed | Pathologist | | | | | At | Signature | + + + + + + | Na | 142 | 135 - 145 | EXTERNAL | | | | | mmol/L | LAB | | + + + + + + | K | 3.5 | 3.5 - 4.9 | EXTERNAL | | | | | mmol/L | LAB | | + + + + + + | Cl | 106 | 99 - 109 mmol/L | EXTERNAL | | | | | | LAB | | + + + + + + | CO2 | 23 | 23 - 32 mmol/L | EXTERNAL | | | | | | LAB | | + + + + + + | Anion Gap | 17 | 5 - 20 mmol/L | EXTERNAL | | | | | | LAB | | + + + + + + | Glucose, | 137 (H) | 65 - 99 mg/dL | EXTERNAL | | | Fasting | | | LAB | | + + + + + + | BUN | 53 (H) | 8 - 25 mg/dL | EXTERNAL | | | | | | LAB | | + + + + + + | Creatinine | 4.57 (H) | 0.50 - 1.00 | EXTERNAL | | | | | mg/dL | LAB | | + + + + + + | BUN/Creatin | 12 | | EXTERNAL | | | ine Ratio | | | LAB | | + + + + + + | Calcium | 8.1 (L) | 8.5 - 10.5 | EXTERNAL | | | | | mg/dL | LAB | | + + + + + + | Protein, | 6.3 | 6.3 - 8.2 g/dL | EXTERNAL | | | Total | | | LAB | | + + + + + + | Albumin | 3.8 | 3.6 - 5.0 g/dL | EXTERNAL | | | | | | LAB | | + + + + + + | Globulin | 2.5 | 1.3 - 4.9 g/dL | EXTERNAL | | | | | | LAB | | + + + + + + | A/G Ratio | 1.5 | 1.0 - 2.4 | EXTERNAL | | | | | | LAB | | + + + + + + | Bilirubin | 0.4 | 0.1 - 1.5 mg/dL | EXTERNAL | | | Total | | | LAB | | + + + + + + | ALP, | 74 | 35 - 115 U/L | EXTERNAL | | | External | | | LAB | | + + + + + + | AST | 13 | 10 - 45 U/L | EXTERNAL | | | | | | LAB | | + + + + + + | ALT | 12 | 10 - 65 U/L | EXTERNAL | | | | | | LAB | | + + + + + + | Estimated | 11 (L)Comment: GFR <60: | mL/min/1.73m2 | EXTERNAL | | | GFR | CHRONIC KIDNEY DISEASE, | | LAB | | | | IF FOUND OVER A 3 MONTH | | | | | | PERIOD.GFR <15: KIDNEY | | | | | | FAILURE.FOR | | | | | | AMERICANS, MULTIPLY THE | | | | | | CALCULATED GFR BY | | | | | | 1.210.This eGFR is | | | | | | calculated using the | | | | | | MDRD IDMS traceable | | | | | | equation.Testing | | | | | | performed at [facility] [place];[address] | | | | | | [facility];[place], [place] | | | | | | [id number] | | | | + + + + + + + + | Specimen | + + | Blood specimen | | (specimen) | + + + +---------+ + + | Performing | Address | City/State/Zipcode | Phone Number | | Organization | | | | + +---------+ + + | EXTERNAL LAB | | | | + +---------+ + + Culture, Urine (07/08/2018 6:20 AM PST) + + | Specimen | + + | | + + + + + | Narrative | Performed At | + + + | Specimen Description CLEAN CATCH URINE CULTURE | EXTERNAL LAB | | 10,000 TO 50,000 CFU/ML | | | MIXED GRAM POSITIVE | | | SASKIA NO FURTHER | | | WORKUP | | + + + + +---------+ + + | Performing | Address | City/State/Zipcode | Phone Number | | Organization | | | | + +---------+ + + | EXTERNAL LAB | | | | + +---------+ + + Drugs Of ABuse Screen, Urine (H) (07/08/2018 6:06 AM PST) + + + + + + | Component | Value | Ref Range | Performed | Pathologist | | | | | At | Signature | + + + + + + | Methampheta | POSITIVE (A)Comment: | | EXTERNAL | | | mine/ | Positive cutoff for AMP | | LAB | | | Amphetamine | = 1000 ng/mL | | | | | Screen, | | | | | | UA, POC | | | | | + + + + + + | Barbiturate | NEGATIVEComment: | | EXTERNAL | | | s Screen, | Positive cutoff for ISAIAS | | LAB | | | Urine | = 200 ng/mL | | | | + + + + + + | Benzodiazep | NEGATIVEComment: | | EXTERNAL | | | jony | Positive cutoff for | | LAB | | | Screen, | BENZO = 200 ng/mL | | | | | Urine | | | | | + + + + + + | Cocaine | NEGATIVEComment: | | EXTERNAL | | | | Positive cutoff for SAUNDRA | | LAB | | | | = 300 ng/mL | | | | + + + + + + | Methadone | NEGATIVEComment: | | EXTERNAL | | | | Positive cutoff for MTD | | LAB | | | | = 300 ng/mL | | | | + + + + + + | Opiates | NEGATIVEComment: | | EXTERNAL | | | | Positive cutoff for OPI | | LAB | | | | = 300 ng/mL | | | | + + + + + + | PCP | NEGATIVEComment: | | EXTERNAL | | | | Positive cutoff for PCP | | LAB | | | | = 25 ng/mL | | | | + + + + + + | Cannabinoid | POSITIVE (A)Comment: | | EXTERNAL | | | s Screen, | Positive cutoff for | | LAB | | | Serum | THC = 50 ng/mLThe above | | | | | | are unconfirmed | | | | | | screening results. | | | | | | These results are to | | | | | | be used only for medical | | | | | | (i.e.,treatment) | | | | | | purposes. Unconfirmed | | | | | | screening results must | | | | | | not be used for | | | | | | non-medical purposes | | | | | | (e.g., employment | | | | | | testing, legal | | | | | | testing).Testing | | | | | | performed at [facility] | | | | | | [facility];[place], [place] | | | | | | [address] | | | | + + + + + + + + | Specimen | + + | | + + + +---------+ + + | Performing | Address | City/State/Zipcode | Phone Number | | Organization | | | | + +---------+ + + | EXTERNAL LAB | | | | + +---------+ + + Urinalysis with Microscopic with Culture if Indicated (07/08/2018 6:06 AM PST) + + + + + + | Component | Value | Ref Range | Performed | Pathologist | | | | | At | Signature | + + + + + + | Color | STRAW | | EXTERNAL | | | | | | LAB | | + + + + + + | Clarity | CLEAR | | EXTERNAL | | | | | | LAB | | + + + + + + | Specific | 1.005 | 1.002 - 1.030 | EXTERNAL | | | [place] | | | LAB | | + + + + + + | Leukocyte | MODERATE (A) | | EXTERNAL | | | Esterase, | | | LAB | | | Urine | | | | | + + + + + + | Nitrite, | NEGATIVE | | EXTERNAL | | | Urine | | | LAB | | + + + + + + | Urobilinoge | NORMAL | mg/dL | EXTERNAL | | | n, Urine | | | LAB | | + + + + + + | Protein, | 30 (A) | mg/dL | EXTERNAL | | | Urine | | | LAB | | + + + + + + | pH, Urine | 6.0 | 5.0 - 8.0 | EXTERNAL | | | | | | LAB | | + + + + + + | Blood, | SMALL (A) | | EXTERNAL | | | Urine | | | LAB | | + + + + + + | Ketones | NEGATIVE | mg/dL | EXTERNAL | | | | | | LAB | | + + + + + + | Bilirubin, | NEGATIVE | | EXTERNAL | | | Urine | | | LAB | | + + + + + + | Glucose, | NEGATIVE | mg/dL | EXTERNAL | | | Urine | | | LAB | | + + + + + + | WBC, UA | 26-49 | 0 - 5 /hpf | EXTERNAL | | | | | | LAB | | + + + + + + | RBC, UA | 6-10 | 0 - 5 /hpf | EXTERNAL | | | | | | LAB | | + + + + + + | Epithelial | 11-15 | /lpf | EXTERNAL | | | Cells | | | LAB | | + + + + + + | Bacteria, | 1+ (A) | | EXTERNAL | | | UA | | | LAB | | + + + + + + | MUCUS UA | 1+Comment: Testing | | EXTERNAL | | | | performed at [facility];[address] | | LAB | | | | [address];[place] | | | | | | [address] | | | | + + + + + + + + | Specimen | + + | | + + + +---------+ + + | Performing | Address | City/State/Zipcode | Phone Number | | Organization | | | | + +---------+ + + | EXTERNAL LAB | | | | + +---------+ + + POC Glucose (07/08/2018 5:59 AM PST) + + + + + + | Component | Value | Ref Range | Performed | Pathologist | | | | | At | Signature | + + + + + + | Glucose, | 137 (H)Comment: Testing | 65 - 99 mg/dL | EXTERNAL | | | Fingerstick | performed at [facility];[address] | | LAB | | | | [address];[place] | | | | | | [address] | | | | + + + [...]
--- OUTSIDE RECORDS SUMMARY | ~2019-05-10 | XMS | Encounter Summary ---
Demographics + + + | Address | [address] | | | [place] [address] | + + + | Home Phone | | + + + | Preferred Language | Unknown | + + + | Marital Status | | + + + | Bahai Affiliation | 1038 | + + + | Race | Unknown | + + + | Ethnic Group | Unknown | + + + Author + + + | Author | [facility] | | | and Laloana | + + + | Organization | [facility] | | | and Laloana [...] + | Beverly Perez | ECON | [place] | | | | | [address] | | + + + + + Care Team Providers + +------+ + | Care Artillery Maintenance Supervisor Name | Role | Phone | + +------+ + | Sia Zheng | PCP | | + +------+ + Encounter Details +--------+ + + + + | Date | Type | Department | Care Team | Description | +--------+ + + + + | 04/10/ | Abstract | [facility] | Jhoana Barreto | | | 2018 | | NEPHROLOGY [address] | M, DO [address] | | | | | [address] | [place] | | | | | [place], [place] | [place], [place] | | | | | [address] | [address] | | | | | [phone] | | | +--------+ + + + [...] + | EXTERNAL LAB: | Routin | 04/06/2019 | | Results for this | | HEPATITIS B SURFACE | e | | | procedure are in the | | AG | | | | results section. | + +--------+ + + + | EXTERNAL LAB: | Routin | 04/06/2019 | | Results for this | | HEPATITIS B SURFACE | e | | | procedure are in the | | AB | | | | results section. | + +--------+ + + + documented in this encounter Results External Lab: Hepatitis B Surface Ag (04/06/2019) + + + + + + | Component | Value | Ref Range | Performed | Pathologist | | | | | At | Signature | + + + + + + | Hepatitis B | Negative | | | | | Surface | | | | | | Ag, | | | | | | External | | | | | + + + + + + + + | Specimen | + + | | + + External Lab: Hepatitis B Surface Ab (04/06/2019) + + + + + + | Component | Value | Ref Range | Performed | Pathologist | | | | | At | Signature | + + + + + + | Hepatitis B | Positive | | | | | Surface | | | | | | Ab, | | | | | | External | | | | | + + + + + + + + | Specimen | + + | | + + documented in this [...]
--- OUTSIDE RECORDS SUMMARY | ~2019-05-10 | XMS | Encounter Summary ---
Demographics + + + | Address | [address] | | | [place] [address] | + + + | Home Phone [...] + + | Author | [facility] | | | and Laloana | + + + | Organization | [facility] | | | and Laloana [...] [place] | | | | | [address] | | + + + + + Care Team Providers + +------+ + | Care Escrow Clerk Name | Role | Phone | + +------+ + PCP | Unavailable | + +------+ + Reason for Visit + + + | Reason | Comments | + + + | Acute Kidney Injury | | + + + Evaluate & Treat (Routine) +--------+--------+ + + + + | Status | Reason | Specialty | Diagnoses / | Referred By | Referred To | | | | | Procedures | Contact | Contact | +--------+--------+ + + + + | Closed | | Nephrology | Diagnoses | Sabillon, | Stroemel, | | | | | AUNG (acute | Petra Balderrama, | Jhoana Flowers DO | | | | | kidney | MD [address] | [address] | | | | | injury) | [place] | [place] | | | | | ([facility]) | [address] [place] | [address] [place] | | | | | Procedures | [place], [place] | [place] | | | | | [place] OFFICE | [address] | [address] Phone: | | | | | OUTPATIENT | Phone: | [phone] | | | | | VISIT 25 | [phone] | Fax: | | | | | MINUTES | Fax: | [phone] | | | | | | [phone] | | +--------+--------+ + + + + Encounter Details +--------+---------+ + + + | Date | Type | Department | Care Team | Description | +--------+---------+ + + + | 09/01/ | Office | [facility] | Jhoana Barreto | AUNG (acute kidney | | 2018 | Visit | NEPHROLOGY [address] | M, DO [address] | injury) ([facility]) | | | | [address] | [place] | (Primary Dx); | | | | [place], [place] | [place], [place] | Chronic kidney | | | | [address] | [address] | disease, stage V | | | | [phone] | | ([facility]); 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) ([facility]); | | | | | | Substance abuse | +--------+---------+ + + + Social History + +-------+ [...] + + + | Blood Pressure | 132/68 | 09/01/2017 1:31 PM | | | | | PDT | | + + + + + | Pulse | 76 | 09/01/2017 1:31 PM | | | | | PDT | | + + + + + | Temperature | 36.8 C (98.3 F) | 09/01/2017 1:31 PM | | | | | PDT | | + + + + + | Respiratory Rate | 16 | 09/01/2017 1:31 PM | | | | | PDT | | + + + + + | Oxygen Saturation | 98% | 09/01/2017 1:31 PM | | | | | PDT | | + + + + + | Inhaled Oxygen | - | - | | | Concentration | | | | + + + + + | Weight | 53.9 kg (118 lb 13.3 | 09/01/2017 1:31 PM | | | | oz) | PDT | | + + + + + | Height | - | - | | + + + + + | Body Mass Index | 19.19 | 09/01/2017 11:12 AM | | | | | PDT | | + + + + + documented in this encounter Progress Notes Jhoana Barreto DO - 09/01/2017 1:00 PM PDT Subjective: NEPHROLOGY Patient ID: Aurea Perez is a 37 y.o. female. 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 She received plasmapheresis, IVIG, and a renal core Bx was done on 07/09/2017 at [facility] showed 17 glomeruli all together, findings on H&E, IF and EM suggested "thrombotic micr oangiopathy, global glomerulosclerosis, and interstitial fibrosis, tubal atrophy in 40%" of the compartment. Additionally, it was negative for fibroepithelial crescents. (The full R eport of Bx is present under the Media tab in EPIC). She subsequently underwent a therapeutic termination of her IUP , in conjunction with MFM and Nephrology, at [facility] on 07/17/2017. Her picture , HTN,and hemolysis slowly improved from there. She was readmitted to [facility] form [facility] ER on 07/26 to 07/30 with acute pulmonary ed kristi, accelerated HTN, and Scr 2.83 mg/dl which progressed to 3.12 mg/dl but after diuresis w ith IV lasix. Her PLT's were improved from 203,000 on arrival to 242,000 which suggested ashish t hemolysis had ceased. She did not have headache , neurologic signs, fever with that ad mission. She had been at baseline until this week, when "3 days ago" she felt ill, malaise, weak, an d some mild dyspnea in just the last 24 hours. Lab was obtained and it appears that her PLT count is falling again, from 278,000 on 08/18 to 154,000 on 08/27, to 116,000 this week. Meanwhile, her Scr is progressively increasing from a plateau of 3.12 mg/dl n 08/09 to 3.92 mg/dl, 08/27 then, 5.64 mg/dl on 08/30. Her Retic. count is not increased at 1.86%, but her LDH is increased at 430 (100-215). She feels that her urine volume is decreasing and that she feels weak, and anorexic. Denies NSAID's, headache, paresis, or TIA's. I did ask fo r Pathologist to review her peripheral smear, but after calling [facility], that is still "in process." PAST MEDICAL HISTORY: 1. History of hypertension 4 years, per the patient. 2. 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 3. She does admit to preeclampsia with her prior to this one. She states that s he was informed not to attempt to conceive again by the managing physicians at that time. 4. Acute CHF, 07/04/17 requiring intubation and loop diuretics. Apparently, an echocardiog alex was done at [facility] on 07/18/17 which shows an LVEF = 52%, moderate AR, moderate TR, mode rate increased PAP. Outpatient Prescriptions Marked as Taking for the 09/01/17 encounter (Office Visit) with Arley Barreto, DO Medication Sig Dispense Refill carvedilol (COREG) 25 mg tablet Take 1 tablet by mouth 2 times daily (with breakfast & dinner). 60 tablet 2 diphenhydrAMINE (BENADRYL) 25 mg tablet Take 25 mg by mouth nightly as needed for Itchi ng. NIFEdipine (ADALAT CC) 60 MG 24 hr tablet Take 1 tablet by mouth Daily. 30 tablet 2 oxyCODONE (ROXICODONE) 5 mg tablet Take 1 tablet by mouth every 6 hours as needed for P ain. 15 tablet 0 pantoprazole (PROTONIX) 40 mg tablet Take 1 tablet by mouth every morning (before break fast). 30 tablet 0 potassium chloride (K-DUR) 20 mEq ER tablet Take 1 tablet by mouth Daily. 30 tablet 2 Allergies Allergen Reactions Codeine Anaphylaxis Sumatriptan Anaphylaxis Review of Systems Objective: BP 132/68 | Pulse 76 | Temp 36.8 C (98.3 F) (Temporal) | Resp 16 | Wt 53.9 kg (118 lb 13.3 oz) | SpO2 98% | BMI 19.19 kg/m Physical Exam Heart: Regular rate and rhythm with no S3, S4, murmur or rub. Lungs: CTA bilaterally. No rales or wheezes. Abdomen: soft, obese, nontender, NABS. Extremities: 1-2+ edema, clubbing, cyanosis. No livedo. Gait, strength and speech are normal. Lab Results Component Value Date NAEX 134 (A) 08/30/2017 KEX 3.2 (A) 08/30/2017 CLEX 94 (A) 08/30/2017 CO2EX 19 08/30/2017 BUNEX 75 (A) 08/30/2017 CREEX 5.64 (A) 08/30/2017 EGFREX 8 (A) 08/30/2017 GLUEX 170 (A) 08/30/2017 PHOSEX 5.2 (A) 08/30/2017 Lab Results Component Value Date WBCEX 6.6 08/30/2017 HGBEX 10.5 (A) 08/30/2017 HCTEX 31.2 (A) 08/30/2017 PLTEX 116 (A) 08/30/2017 ANCA Panel, no reflex Order: [id number] Status: Final result Visible to patient: Yes (MyChart) Next appt: 09/29/2017 at 15:0 0 in [facility] (Carina Dewey, [facility]) Ref Range & Units 1mo ago Myeloperoxidase Antibody 0.0 - 9.0 U/mL <9.0 Proteinase 3 Antibody 0.0 - 3.5 U/mL <3.5 C ANCA Neg:<1:20 titer <1:20 P ANCA Neg:<1:20 titer <1:20 Comments: The presence of positive fluorescence exhibiting P-ANCA or C-ANCA patterns alone is not specific for the diagnosis of Brina's Granulomatosis (WG) or microscopic polyangiitis. Decisions about treatment should not be based solely on ANCA IFA results. The International ANCA Group Consensus recommends follow up testing of positive sera with both OH-3 and MPO-ANCA enzyme immunoassays. As many as 5% serum samples are positive only by EIA. Ref. AM J Clin Pathol 1999;111:507-513. Atypical pANCA Neg:<1:20 titer <1:20 Comments: The atypical pANCA pattern has been observed in a significant percentage of patients with ulcerative colitis, primary sclerosing cholangitis and autoimmune hepatitis. Resulting Agency [facility] Narrative Performed at: - [facility] [id number] Clinical Rehabilitation Liaison: Mike Rehman MD, Phone: [phone] Specimen Collected: 07/27/17 4:37 Assessment: 1. Subacute AUNG with falling PLT's, increased LDH-- suspicious TTP vs.HUS relapse, vs. HELLP syndrome? Her GFR is very low and she appears uremic clinically. Unclear why she has relapsed now , without ? 2. Hypertension-- stable. 3. Anemia-- cannot exclude HUS, TTP or AHA? 4. Very remote, recreational methamphetamine use--urine drug screen today is Negative , except for THC. 5. Acute CHF -- compensated. 6. s/p therapeutic termination, 20 week IUP, 07/17/2017-- stable clinically. Plan: 1. I think that she may need to be seen at a Center where there is both phoresis and HD. C urrently, we have the latter at [facility] but not the former. (1400) I called X-matty Center at [facility], but the there are No beds. I called the X-matty Abhil[facility] ter at [facility] and gave the Hx to Dr. Thomas Chisholm, Hospitalist, and Dr. Christianson, but am aw aiting confirmation that there is a bed. 2. (1636 Hours). No confirmed bed yet from [facility]. Will Admit her for Observation to [facility] until a larger referral center bed can be confirmed. Pt understands this , consents, an d agrees to admission with potential need for X-matty to a Tertiary Center in next 24 Hrs. : Osmel Pat MD, [facility] DO Carina Fontaine MD, FNP documented in thi s encounter Plan of Treatment Not on filedocumented as of this encounter Procedures + +--------+ + + + | Procedure Name | Priori | Date/Time | Associated Diagnosis | Comments | | | ty | | | | + +--------+ + + + | POCT URINALYSIS, | Routin | 09/01/2017 | AUNG (acute kidney | Results for this | | AUTO WITH CONF | e | 2:13 PM | injury) ([facility]) | procedure are in the | | | | PDT | Chronic kidney | results section. | | | | | disease, stage V | | | | | | ([facility]) 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) ([facility]) | | | | | | Substance abuse | | + +--------+ + + + | DRUGS OF ABUSE, | Routin | 09/01/2017 | Substance abuse | Results for this | | SCREEN, URINE | e | 2:11 PM | Chronic kidney | procedure are in the | | | | PDT | disease, stage V | results section. | | | | | ([facility]) 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) ([facility]) AUNG | | | | | | (acute kidney | | | | | | injury) ([facility]) | | + +--------+ + + + documented in this encounter Results POCT Urinalysis Dipstick Automated (09/01/2017 2:13 PM PDT) + + + + + + | Component | Value | Ref Range | Performed | Pathologist | | | | | At | Signature | + + + + + + | Color, UA, | Yellow | Yellow, Light | | | | POC | | Yellow | | | + + + + + + | Clarity, | Cloudy | | | | | UA, POC | | | | | + + + + + + | Glucose, | 100 mg/dL (A) | Negative | | | | UA, POC | | | | | + + + + + + | Bilirubin, | Negative | Negative | | | | UA, POC | | | | | + + + + + + | Ketones, | Negative | Negative, 100 | | | | UA, POC | | mg/dL | | | + + + + + + | Specific | 1.015 | 1.001 - 1.030 | | | | [place], | | | | | | UA, POC | | | | | + + + + + + | Blood, UA, | Large (A) | Negative | | | | POC | | | | | + + + + + + | pH, UA, POC | 6.0 | 5.0, 6.0, 7.0, | | | | | | 8.0, 5.5, 6.5, | | | | | | 7.5 | | | + + + + + + | Protein, | >=300 mg/dL (A) | Negative | | | | UA, POC | | | | | + + + + + + | Urobilinoge | 0.2 | 0.2, Negative, | | | | n, UA, POC | | Normal, < 0.2 | | | | | | mg/dL, 1 mg/dL, | | | | | | < 0.2 E.U./dl, | | | | | | 1.0 E.U./dL, | | | | | | 0.2 mg/dL | | | + + + + + + | Nitrite, | Negative | Negative | | | | UA, POC | | | | | + + + + + + | Leukocyte | Negative | Negative | | | | Esterase, | | | | | | UA, POC | | | | | + + + + + + | Reducing | | | | | | Substances, | | | | | | Urine | | | | | + + + + + + | Ictotest | | Negative | | | + + + + + + | Remark | | | | | + + + + + + + + | Specimen | + + | Urine | + + Drugs of Abuse, Screen, Urine (09/01/2017 2:11 PM PDT) + + + + + + | Component | Value | Ref Range | Performed | Pathologist | | | | | At | Signature | + + + + + + | Amphetamine | Negative | Negative | [facility] | | | Screen, | | | [facility] | | | Urine | | | MEDICAL | | | | | | CENTER - | | | | | | LABORATORY | | + + + + + + | Barbiturate | Negative | Negative | [facility] | | | s Screen, | | | [facility] | | | Urine | | | MEDICAL | | | | | | CENTER - | | | | | | LABORATORY | | + + + + + + | Benzodiazep | Negative | Negative | [facility] | | | jony | | | [facility] | | | Screen, | | | MEDICAL | | | Urine | | | CENTER - | | | | | | LABORATORY | | + + + + + + | Cannabinoid | Positive (A) | Negative | [facility] | | | s Screen, | | | [facility] | | | Urine | | | MEDICAL | | | | | | CENTER - | | | | | | LABORATORY | | + + + + + + | Cocaine | Negative | Negative | [facility] | | | Screen, | | | [facility] | | | Urine | | | MEDICAL | | | | | | CENTER - | | | | | | LABORATORY | | + + + + + + | Methadone | Negative | Negative | [facility] | | | Screen, | | | [facility] | | | Urine | | | MEDICAL | | | | | | CENTER - | | | | | | LABORATORY | | + + + + + + | Opiates | Negative | Negative | [facility] | | | Screen, | | | [facility] | | | Urine | | | MEDICAL | | | | | | CENTER - | | | | | | LABORATORY | | + + + + + + + + | Specimen | + + | Urine - Urine | | specimen obtained by | | clean catch | | procedure (specimen) | + + + + + + + | Performing | Address | City/State/Zipcode | Phone Number | | Organization | | | | + + + + + | [facility] | [address] | [place] | [phone] | | [facility] | | [address] | | | - LABORATORY | | | | + + + + + documented in this encounter Visit Diagnoses + + | Diagnosis | + + | AUNG (acute kidney injury) (HCC) - Primary Acute kidney failure, unspecified | + + | Chronic kidney disease, stage V (HCC) Chronic kidney disease, Stage V | + + | HUS (hemolytic uremic syndrome) (HCC) Hemolytic-uremic syndrome | + + | Substance abuse (HCC) Other, mixed, or unspecified nondependent drug abuse, | | unspecified | + + documented in this encounter
--- OUTSIDE RECORDS SUMMARY | ~2019-05-10 | XMS | Encounter Summary ---
Demographics + + + | Address | [address] | | | [place] [address] | + + + | Home Phone | | + + + | Preferred Language | Unknown | + + + | Marital Status | | + + + | Druze Affiliation | 1038 | + + + | Race | Unknown | + + + | Ethnic Group | Unknown | + + + Author + + + | Author | [facility] | | | and Lalo[place] | + + + | Organization | [facility] | | | and [...] [place] | | | | | [address] | | + + + + + Care Team Providers + +------+ + | Care Garnishment Specialist Name | Role | Phone | [...] | | [address] | [place] | (Primary Dx) | | | | [place], [place] | [place], [place] | | | | | [address] | [address] | | | | | [phone] | | | +--------+ + + + [...] osclerosis. She has recently moved to the [facility] [place]. She was trying to st ay at the [facility] [place] decided to come me from home where [...] abstinence . Last urine drug screens at [facility] lab have been Negative. Plan: 1. The patient appears stable on 4 hours, 2K+, F160, QB 400, QD 600, thrice weekly. I gre atly appreciate Dr. Gallagher's help with her excellent AVF. 2. Hb is stable on Mircera algorithm, will recheck her in 1 week. 3. I encouraged her to maximize her daily intake of high biological value protein. : [place] Edwar Gallagher MD, FACS documented in thi [...]
--- OUTSIDE RECORDS SUMMARY | ~2019-05-10 | XMS | Encounter Summary ---
Demographics + + + | Address | [address] | | | [place] [address] | + + + | Home Phone | | + + + | Preferred Language | Unknown | + + + | Marital Status | | + + + | Adventism Affiliation | 1038 | + + + | Race | Unknown | + + + | Ethnic Group | Unknown | + + + Author + + + | Author | [facility] | | | and [place] | + + + | Organization | [facility] | | | and [...] [place] | | | | | [address] | | + + + + + Care Team Providers + +------+ + | Care Assistant Professor Of Anthropology Name | Role | Phone | + +------+ + PCP | Unavailable | + +------+ + Encounter Details +--------+ + + + + | Date | Type | Department | Care Team | Description | +--------+ + + + + | 08/31/ | Abstract | [facility] [place] | RoyergeorgeJhoana | | | 2017 | | NEPHROLOGY [address] | M, DO [address] | | | | | [address] | [place] | | | | | [place], [place] | [place], [place] | | | | | [address] | [address] | | | | | [phone] | | | +--------+ + + + [...] | EXTERNAL LAB: SHAKIRA | Routin | 08/30/2017 | | Results for this | | | e | | | procedure are in the | | | | | | results section. | + +--------+ + + + | EXTERNAL LAB: | Routin | 08/30/2017 | | Results for this | | GLUCOSE | e | | | procedure are in the | | | | | | results section. | + +--------+ + + + | EXTERNAL LAB: | Routin | 08/30/2017 | | Results for this | | ALBUMIN | e | | | procedure are in the | | | | | | results section. | + +--------+ + + + | EXTERNAL LAB: | Routin | 08/30/2017 | | Results for this | | PHOSPHORUS | e | | | procedure are in the | | | | | | results section. | + +--------+ + + + | EXTERNAL LAB: | Routin | 08/30/2017 | | Results for this | | CALCIUM | e | | | procedure are in the | | | | | | results section. | + +--------+ + + + | EXTERNAL LAB: CARBON | Routin | 08/30/2017 | | Results for this | | DIOXIDE | e | | | procedure are in the | | | | | | results section. | + +--------+ + + + | EXTERNAL LAB: | Routin | 08/30/2017 | | Results for this | | CHLORIDE | e | | | procedure are in the | | | | | | results section. | + +--------+ + + + | EXTERNAL LAB: | Routin | 08/30/2017 | | Results for this | | POTASSIUM | e | | | procedure are in the | | | | | | results section. | + +--------+ + + + | EXTERNAL LAB: SODIUM | Routin | 08/30/2017 | | Results for this | | | e | | | procedure are in the | | | | | | results section. | + +--------+ + + + | EXTERNAL LAB: CBC | Routin | 08/30/2017 | | Results for this | | | e | | | procedure are in the | | | | | | results section. | + +--------+ + + + | EXTERNAL LAB: EGFR | Routin | 08/30/2017 | | Results for this | | | e | | | procedure are in the | | | | | | results section. | + +--------+ + + + | EXTERNAL LAB: | Routin | 08/30/2017 | | Results for this | | CREATININE | e | | | procedure are in the | | | | | | results section. | + +--------+ + + + documented in this encounter Results External Lab: Albumin (08/30/2017) + +-------+ + + + | Component [...] + +---------+ + + External Lab: CBC (08/30/2017) + + + + + + | Component | Value | Ref Range | Performed | Pathologist | | | | | At | Signature | + + + + + + | WBC, | 6.6 | 4 - 11 | EXTERNAL | | | External | | | LAB | | + + + + + + | HGB, | 10.5 (A) | 12 - 16 | EXTERNAL | | | External | | | LAB | | + + + + + + | HCT, | 31.2 (A) | 35 - 45 | EXTERNAL | | | External | | | LAB | | + + + + + + | PLT, | 116 (A) | 140 - 440 | EXTERNAL | | | External | | | LAB | | + + + + + + | RBC, | 3.54 (A) | 4 - 6 | EXTERNAL | | | External | | | LAB | | + + + + + + | MCV, | 88 | 80 - 100 | EXTERNAL | | | External | | | LAB | | + + + + + + | RDW, | 15 | 10.5 - 15 | EXTERNAL | | | External | | | LAB | | + + + + + + + +---------+ + + | Performing | Address | City/State/Zipcode | Phone Number | | Organization | | | | + +---------+ + + | EXTERNAL LAB | | | | + +---------+ + + External Lab: BUN (08/30/2017) + +--------+ + + + | Component | Value | Ref Range | Performed | Pathologist | | | | | At | Signature | + +--------+ + + + | BUN, | 75 (A) | 6 - 23 | EXTERNAL | | | External | | | LAB | | + +--------+ + + + + +---------+ + + | Performing | Address | City/State/Zipcode | Phone Number | | Organization | | | | + +---------+ + + | EXTERNAL LAB | | | | + +---------+ + + External Lab: Glucose (08/30/2017) + +---------+ + + + | Component | Value | Ref Range | Performed | Pathologist | | | | | At | Signature | + +---------+ + + + | Glucose, | 170 (A) | 70 - 100 | EXTERNAL | | | External | | | LAB | | + +---------+ + + + + +---------+ + + | Performing | Address | City/State/Zipcode | Phone Number | | Organization | | | | + +---------+ + + | EXTERNAL LAB | | | | + +---------+ + + External Lab: Phosphorus (08/30/2017) + +---------+ + + + | Component | Value | Ref Range | Performed | Pathologist | | | | | At | Signature | + +---------+ + + + | Phosphorus, | 5.2 (A) | 2.5 - 5 | EXTERNAL | | | External | | | LAB | | + +---------+ + + + + +---------+ + + | Performing | Address | City/State/Zipcode | Phone Number | | Organization | | | | + +---------+ + + | EXTERNAL LAB | | | | + +---------+ + + External Lab: Calcium (08/30/2017) + +-------+ + + + | Component | Value | Ref Range | Performed | Pathologist | | | | | At | Signature | + +-------+ + + + | Calcium, | 9.0 | 8.4 - 10.2 | EXTERNAL | | | External | | | LAB | | + +-------+ + + + + +---------+ + + | Performing | Address | City/State/Zipcode | Phone Number | | Organization | | | | + +---------+ + + | EXTERNAL LAB | | | | + +---------+ + + External Lab: Carbon Dioxide (08/30/2017) + +-------+ + + + | Component | Value | Ref Range | Performed | Pathologist | | | | | At | Signature | + +-------+ + + + | Carbon | 19 | 19 - 31 | EXTERNAL | [...] + +---------+ + + External Lab: Chloride (08/30/2017) + +--------+ + + + | Component | Value | Ref Range | Performed | Pathologist | | | | | At | Signature | + +--------+ + + + | Chloride, | 94 (A) | 95 - 112 | EXTERNAL | | | External | | | LAB | | + +--------+ + + + + +---------+ + + | Performing | Address | City/State/Zipcode | Phone Number | | Organization | | | | + +---------+ + + | EXTERNAL LAB | | | | + +---------+ + + External Lab: Potassium (08/30/2017) + +---------+ + + + | Component | Value | Ref Range | Performed | Pathologist | | | | | At | Signature | + +---------+ + + + | Potassium, | 3.2 (A) | 3.5 - 5.1 | EXTERNAL | | | External | | | LAB | | + +---------+ + + + + +---------+ + + | Performing | Address | City/State/Zipcode | Phone Number | | Organization | | | | + +---------+ + + | EXTERNAL LAB | | | | + +---------+ + + External Lab: Sodium (08/30/2017) + +---------+ + + + | Component | Value | Ref Range | Performed | Pathologist | | | | | At | Signature | + +---------+ + + + | Sodium, | 134 (A) | 135 - 145 | EXTERNAL | | | External | | | LAB | | + +---------+ + + + + +---------+ + + | Performing | Address | City/State/Zipcode | Phone Number | | Organization | | | | + +---------+ + + | EXTERNAL LAB | | | | + +---------+ + + External Lab: eGFR (08/30/2017) + +-------+ + + + | Component | Value | Ref Range | Performed | Pathologist | | | | | At | Signature | + +-------+ + + + | eGFR, | 8 (A) | 60 | EXTERNAL | | [...] + +---------+ + + External Lab: Creatinine (08/30/2017) + + + + + + | Component | Value | Ref Range | Performed | Pathologist | | | | | At | Signature | + + + + + + | Creatinine, | 5.64 (A) | 0.6 - 1.3 | EXTERNAL [...]
--- OUTSIDE RECORDS SUMMARY | ~2019-05-10 | XMS | Encounter Summary ---
Demographics + + + | Address | [address] | | | [place] [address] | + + + | Home Phone | | + + + | Preferred Language | Unknown | + + + | Marital Status | | + + + | Sabianist Affiliation | 1038 | + + + | Race | Unknown | + + + | Ethnic Group | Unknown | + + + Author + + + | Author | [facility] | | | and [place] | + + + | Organization | [facility] | | | and [...] [place] | | | | | [address] | | + + + + + Care Team Providers + +------+ + | Care Generator Rebuilder Name | Role | Phone | + [...] | | [address] | [place] | (Primary Dx) | | | | [place], [place] | [place], [place] | | | | | [address] | [address] | | | | | [phone] | | | +--------+ + + + [...] complex, 37 YOWF who was DC'd from [facility] on 09/17/17 with oliguric AUNG, dialysis dependent, who is 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 She also had CHF , bronchopnuemonia, accelerated HTN, which is improved with drug Rx and UF. She is now on outpt HD at [place], [place]. She is feeling better is lucid, ambularto ry, and eating better. She denies headaches, dyspnea or any new bruising. She states that h er housing situation is still tenuous and she does not see her children as frequently as she would like. She is still going to [facility] for her Nutr[facility], instead of a local campus for unclear [...] these locally, e.g. [facility] the [facility] to decrease her distance driving? Plan: 1. [...] be rechecked here in 2 weeks. : [place] Edwar Gallagher MD, GABBI Lew MD, Hem/Onc, Rigoberto Sharp documented in thi s encounter Plan of Treatment Not on filedocumented as of this encounter Visit Diagnoses + + | Diagnosis | + + | End stage renal disease (HCC) - Primary End stage renal disease | + + documented in this encounter"
--- OUTSIDE RECORDS SUMMARY | ~2019-05-10 | XMS | Encounter Summary ---
Demographics + + + | Address | [address] | | | [place] [address] | + + + | Home Phone | | + + + | Preferred Language | Unknown | + + + | Marital Status | | + + + | Protestant Affiliation | 1038 | + + + | Race | Unknown | + + + | Ethnic Group | Unknown | + + + Author + + + | Author | [facility] | | | and [place] | + + + | Organization | [facility] | | | and [...] [place] | | | | | [address] | | + + + + + Care Team Providers + +------+ + | Care Copy Lathe Operator Name | Role | Phone | + +------+ + PCP | Unavailable | + +------+ + Reason for Visit + + + | Reason | Comments | + + + | Medication Refill | | + + + Encounter Details +--------+--------+ + + + | Date | Type | Department | Care Team | Description | +--------+--------+ + + + | 08/25/ | Refill | [facility] [place] | Jhoana Barreto | Medication Refill | | 2017 | | NEPHROLOGY [address] | M, DO [address] | | | | | [address] | [place] | | | | | [place], [place] | [place], [place] | | | | | [address] | [address] | | | | | [phone] | | | +--------+--------+ + + + Social History + +-------+ [...]
--- OUTSIDE RECORDS SUMMARY | ~2019-05-10 | XMS | Encounter Summary ---
Demographics + + + | Address | [address] | | | [place] [address] | + + + | Home Phone [...] | Author | [facility] | | | and [place] | + + + | Organization | [facility] | | | [...] [place] | | | | | [address] | | + + + + + Care Team Providers + +------+ + | Care Extrusion Bender Name | Role | Phone | + +------+ + PCP | Unavailable | + +------+ + Encounter Details +--------+ + + + + | Date | Type | Department | Care Team | Description | +--------+ + + + + | 10/27/ | Orders Only | [facility] [place] | Petra Sabillon W, | Essential | | 2018 | | NEPHROLOGY [address] | MD [address] | hypertension, | | | | [address] | [address] [place] | malignant | | | | [place], [place] | [place] [address] | | | | | [address] | [phone] | | | | | [phone] | | | +--------+ + + + [...] documented as of this encounter Progress Notes Petra Sabillon MD - 10/27/2017 4:54 PM PDTReducing carvedilol dose due to bradycardia of 48-55, on current dose of 25 mg BID. Will reduce to 6.25 mg BID, and instruct pt to monitor HR. documented in this encounter Plan of Treatment Not on filedocumented as of this encounter Visit Diagnoses + + | Diagnosis | + + | Essential hypertension, malignant | + + documented in this encounter"
--- OUTSIDE RECORDS SUMMARY | ~2019-05-10 | XMS | Encounter Summary ---
Demographics + + + | Address | [address] | | | [place] [address] | + + + | Home Phone | | + + + | Preferred Language | Unknown | + + + | Marital Status | | + + + | Synagogue Affiliation | 1038 | + + + | Race | Unknown | + + + | Ethnic Group | Unknown | + + + Author + + + | Author | [facility] | | | and [place] | + + + | Organization | [facility] | | | and [place]ana [...] [place] | | | | | [address] | | + + + + + Care Team Providers + +------+ + | Care Can Filling Machine Operator Name | Role | Phone | + +------+ + PCP | Unavailable | + +------+ + Encounter Details +--------+ + + + + | Date | Type | Department | Care Team | Description | +--------+ + + + + | 03/22/ | Hospital | [facility] | Gee Sandoval MD | Agitation; | | 2018 - | Encounter | [facility] | [address] | Methamphetamine | | | | CARE FLOOR [address] | [place], [place] | abuse (HCC); Acute | | 03/29/ | | [address] | [address] | respiratory failure | | 2018 | | [place], [place] | | with hypoxia and | | | | [address] | | hypercapnia (HCC) | | | | [phone] | | | +--------+ + + + [...] + + + | Blood Pressure | 157/97 | 03/29/2018 12:31 PM | | | | | PDT | | + + + + + | Pulse | 84 | 03/29/2018 12:31 PM | | | | | PDT | | + + + + + | Temperature | 36.7 C (98.1 F) | 03/29/2018 12:31 PM | | | | | PDT | | + + + + + | Respiratory Rate | 18 | 03/29/2018 12:31 PM | | | | | PDT | | + + + + + | Oxygen Saturation | - | - | | + + + + + | Inhaled Oxygen | - | - | | | Concentration | | | | + + + + + | Weight | 48.4 kg (106 lb 11.2 | 03/29/2018 12:31 PM | | | | oz) | PDT | | + + + + + | Height | 167.6 cm (5' 6") | 03/29/2018 12:31 PM | | | | | PDT | | + + + + + | Body Mass Index | 17.22 | 03/29/2018 12:31 PM | | | | | PDT | | + + + + + documented in this encounter Discharge Summaries Kofi Champion MD - 03/29/2018 3:40 PM PDTFormatting of this note might be differe nt from the original. Discharge Summaries by Kofi Champion MD at 03/29/181539 Author: Kofi Champion MD Service: Hospitalist Author Type: Physician Filed: 03/30/182051 Date of Service: 03/29/181539 Status: Signed Public Bath Attendant: Kofi Champion MD (Physician) Related Notes: Original Note by Kofi Champion MD (Physician) filed at 03/29/18 16 40 [facility] Service: Hospitalist Physician Discharge Summary Pt: Aurea Perez AGE/SEX: 37 y.o. female ROOM: 7127/7127-1 PCP: Sia Zheng : 1980 Admit date: 03/22/2018 Discharge date and time: 03/29/2018 3:40 PM Admitting Physician: Gee Sandoval MD Discharge Physician: Kofi Champion MD Consults: Dr. Faria/Dr. Castellon Primary Discharge Diagnoses: Principal Problem: Acute respiratory failure with hypoxia and hypercapnia (HCC) Active Problems: Methamphetamine use Metabolic acidosis Agitation Pulmonary edema ESRD (end stage renal disease) (HCC) Resolved Problems: * No resolved hospital problems. * Secondary Discharge Diagnoses: Discharged Condition: stable Significant Diagnostic Studies: Xr Chest 1 View Result Date: 03/27/2018 1. Mild diffuse interstitial opacities to likely represent mild interstitial edema. 2. Palacio zy perihilar and bibasilar airspace disease, stable. 3. Small right-sided pleural effusion. Xr Chest 1 View Result Date: 03/24/2018 1. Pulmonary opacities, right worse than left, slightly improved. 2. Small pleural effusion s. 3. Endotracheal tube, enteric tube, and dialysis catheter in place. RADIA Electronicall y signed by Glenn Morton MD on Mar 24 2018 5:37AM Referring Provider Line: [phone] ID: [id number] Xr Chest 1 View Result Date: 03/22/2018 1. Unchanged appearance of endotracheal tube. Consider retraction approximately 2 cm. 2. Unchanged right internal jugular approach dual-lumen dialysis catheter. 3. Newly seen enter ic tube. 4. Slightly improved bilateral airspace disease, potentially pulmonary edema, vers us less likely pneumonia. P M Ir Dialysis Av Fistulagram Result Date: 03/28/2018 Right upper extremity fistulogram with no apparent abnormality. Return to dialysis. Conside r removal of the tunneled dialysis catheter. Electronically signed by Chalino Thomas MD on 03/08 4:04 PM HPI and Hospital Course: Ms. 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 Her other problems are hypertension and methamphetamine abuse. She still makes some urine, and her last hemodialysis was about a year ago, as the p atient stopped going to the Dialysis Center. She became very short of breath and was karoline t to the emergency department of [facility]. The patient was found to be in fla sh pulmonary edema causing respiratory failure and was intubated. HOSPITAL COURSE: The patient was initially managed at [facility], but after intubation she was transferred to the intensive care unit at this hospital. She self-extuba anupama on the of this month and then she became very agitated, violent, and verbally abusi ve, hence the patient was reintubated. The patient was finally extubated and was transferre d out of the unit on the of this month. Nephrology services were involved, and she rec eived hemodialysis regularly. Dr. Thomas performed fistulogram yesterday on her right forearm fistula, and he did not find any problem and, hence, she underwent hemodialysis via AV fist twan for the first time. This morning I saw the patient, and she was very pleasant but wanted to go home. I told he r that I will ask Dr. Castellon if he agrees with the discharge. Hence, I spoke with Dr. Ninfa perea and he suggested that she can be safely discharged home, provided we are able to arrange h emodialysis chair at the kidney center in [place], where she used to get dialysis in the p ast. I spoke with my social work case manager, who was working on chair time for tomorrow. However, th patient did not want to wait and decided to leave without medical advance, and she signed AMA papers. Discharge Vitals: Vitals: 03/29/18 0556 03/29/18 0844 03/29/18 1134 03/29/18 1225 BP: (!) 173/100 181/88 122/56 (!) 157/97 BP Location: Left forearm Left upper arm Left upper arm Left upper arm Pulse: 96 84 Resp: Temp: 98.5 F (36.9 C) 98.1 F (36.7 C) TempSrc: Oral Oral SpO2: 92% 92% Weight: Height: Discharge Exam: Constitutional: She is oriented to person, place, and time. No distress. HENT: Mouth/Throat: No oropharyngeal exudate. Eyes: No scleral icterus. Neck: Neck supple. No JVD present. Cardiovascular: Normal rate, regular rhythm, normal heart sounds and intact distal pulses. Exam reveals no gallop and no friction rub. No murmur heard. Pulmonary/Chest: Effort normal and breath sounds normal. No respiratory distress. She has n o wheezes. She has no rales. She exhibits no tenderness. Abdomina/Gl: Soft. Bowel sounds are normal. She exhibits no distension and no mass. There i s no tenderness. There is no rebound and no guarding. No hernia. Musculoskeletal: She exhibits no edema, tenderness or deformity. Neurological: She is alert and oriented to person, place, and time. No cranial nerve defici t. Skin: Skin is warm and dry. No rash noted. She is not diaphoretic. No erythema. There is pa llor. Psychiatric: She has a normal mood and affect. Her behavior is normal. Nursing note and vitals reviewed. LABS: Recent Labs Lab 03/29/1844403/28/[id number] WBC 9.18 8.95 8.59 6.68 7.81 HGB 9.9* 9.7* 9.2* 8.7* 8.6* HCT 29.1* 28.3* 26.5* 25.3* 25.2* PLT 221 216 163 160 154 NEUTOPHILPCT -- -- 77.39 71.16 71.16 MONOPCT -- -- 6.28 7.30 9.99 Recent Labs Lab 03/29/1844403/28/[id number]/27/[id number]/22/18 2151 NA 137 137 135 < > 139 K 3.7 4.1 3.6 < > 2.9* CL 99 100 98* < > 105 CO2 28 22* 24 < > 19* BUN 35* 75* 49* < > 71* CREATININE 4.3* 6.3* 5.1* < > 5.6* PROT -- -- -- -- 6.9 BILITOT -- -- -- -- 0.6 ALT -- -- -- -- 26 AST -- -- -- -- 24 < > = values in this interval not displayed. Invalid input(s): LABALBU Recent Labs Lab 03/29/18 0445 03/28/18 0431 03/27/18 0423 MG 2.3 2.4 2.5* No results for input(s): AMYLASE in the last 168 hours. No results for input(s): PHART, PO2ART, VLW2VAR, K0SCVBQI, BEART in the last 168 hours. No results for input(s): APTT, INR, PTT in the last 168 hours. Recent Labs Lab 03/24/18 1313 03/24/18 0459 TROPONINI 0.22* 0.328* Disposition: Left Against Medical Advice Patient Instructions: Medication List You have not been prescribed any medications. Activity: activity as tolerated Diet: renal diet Wound Care: as directed Total time of discharge: 35 minutes. This included talking to patient, examining patient, d iscussing outpatient plan of care, reconciling home medications and dictating discharge summ griffin. Follow-up with PCP in 1 week. Signed: Kofi Champion MD 03/29/2018 4:31 PM documented in this encounter Medications at Time [...] + + +---------+ + + | B Upehfgs-Z-Hiepo | Take 1 Tab by mouth. 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 | | | | | + [...] Progress Notes Conversion Transaction, Provider Unknown - 03/29/2018 3:58 PM PDTFormatting of this note m ight be different from the original. Nurse Progress Note by Hector Matos RN at 03/29/18 1558 Author: Hector Matos RN Service: (none) Author Type: Registered Nurse Filed: 03/29/18 1600 Date of Service: 03/29/18 1558 Status: Signed Public Bath Attendant: Hector Matos RN (Registered Nurse) Pt signed the AMA paper. IV removed. Belonging bags (2) have been returned by security. Pt is aware that she is leaving against medical advice and not being discharged from the [facility] by hospitalist. onver chaz Transaction, Provider Unknown - 03/29/2018 3:15 PM PDT Nurse Progress Note by Hector Matos RN at 03/29/18 1515 Author: Hector Matos RN Service: (none) Author Type: Registered Nurse Filed: 03/29/18 1620 Date of Service: 03/29/18 1515 Status: Addendum Public Bath Attendant: Hector Matos RN (Registered Nurse) Related Notes: Original Note by Hector Matos RN (Registered Nurse) filed at 03/29/18 1988 Pt is still adamant that she wants to leave AMA and does not want to wait for dialysis marilyn r time set up when this RN informed pt that case management is trying to set it up for her. States "I'll do it on my own. I will get dialysis tomorrow in [place]." Pt is requesting to have her belongings back from security and her IV out so she can leave. Lead RN and MD nichole aggarwal. Pilar South OTR/L - 03/29/2018 1:53 PM PDTFormatting of this note might be different from t bennie original. Therapy Progress Note by BIRD Lopes/Neela at 03/29/18 1353 Author: MARLEEN Lopes Service: (none) Author Type: Occupational Therapist Filed: 03/29/18 1528 Date of Service: 03/29/18 1353 Status: Signed Public Bath Attendant: MARLEEN Lopes (Occupational Therapist) 03/29/18 1356 OT Last Visit OT Received On 03/29/18 Reason for Treatment Deconditioning Requires OT Follow Up Unavailable OT Eval/Reassessment Date 03/29/18 Assistance Required 1 person Oracle Etl Developer Needed No Family/Caregiver Present No Precautions Other Precautions fall risk, monitor Other Comments Comments Pt seated EOB upon OT arrival. Pt with encouragement agreeable to participate with OT. Pt education provided on OT role and plan for session. Began to discuss with pt regardi ng home information. Pt states she is not sure who moved tings out of her apartment. Pt stat es plans to stay with family upon d/c. Pt seated EOB during education and then meal arrived . Pt eating independently. During this time pt answering phone. At this time session ended a s pt continued to talk on phone. Plan for follow up as census permits. RN notified and pt le ft seated EOB with needs in reach. onversion Trans action, Provider Unknown - 03/29/2018 1:26 PM PDT Case Management by Patricia Ramesh RN at 03/29/18 1326 Author: Patricia Ramesh RN Service: (none) Author Type: Registered Nurse Filed: 03/29/18 1511 Date of Service: 03/29/18 1326 Status: Addendum Public Bath Attendant: Patricia Ramesh RN (Registered Nurse) Related Notes: Original Note by Patricia Ramesh RN (Registered Nurse) filed at 03/29/18 1331 1300: Brianna lead RN informed me that pt wants to leave AMA. would like pt set up with JANE chair before she leaves. Called JANE Escobedo about getting a new chair time. She will ca ll me back. 1510: called Fanny- no answer. onver chaz Transaction, Provider Unknown - 03/29/2018 12:43 PM PDT Nurse Progress Note by Hector Matos RN at 03/29/18 1243 Author: Hector Matos RN Service: (none) Author Type: Registered Nurse Filed: 03/29/18 1244 Date of Service: 03/29/18 1243 Status: Signed Public Bath Attendant: Hector Matos RN (Registered Nurse) Pt wants to leave AMA. States "I want to go home. I don't want to be here. My family is in town." Dr. Champion paged. Edgardo Lott PT - 03/29/2018 11:32 AM PDTFormatting of this note might be different from the o riginal. Therapy Progress Note by Edgardo Hernandez PT at 03/29/18 1132 Author: Edgardo Hernandez PT Service: (none) Author Type: Physical Therapist Filed: 03/29/18 1516 Date of Service: 03/29/18 1132 Status: Signed Public Bath Attendant: Edgardo Hernandez PT (Physical Therapist) PHYSICAL THERAPY TREATMENT NOTE PT Received On: 03/29/18 Reason for Treatment: Deconditioning (acute respiratory failure) Requires PT Follow Up: Yes Follow up PT Only?: No Assistance Required: 1 person Recommendations: Other (comment) Recommendation Comments: Pt presents as a fall risk as per Tinetti ANGELIC and is mobilizing w ith unsteadiness. She also presents with poor safety awareness, unsure what her cognitive ba seline is but she could potentially benefit from cognitive screen. Please see summary sectio n for comments regarding disposition, will coordinate with CM as needed to ensure safe D/C. Plan Treatment/Interventions: Continue per Primary PT POC Progress: Progressing toward goals Summary Comments: Pt in bed, agreeable to PT, BP WNL. Pt demonstrating ataxic gait, does not have a ny LOB but using UE support on garner and counters at times. She navigates stairs likewise wi thout LOB but fatigues as she continues. Pt back seated at EOB and has bloody nose that last s 5 min, she requires for bloody nose management, as pt appears unsure what to do. She de nies dizziness or overall changes in symptoms, she washes hands at sink without LOB. Bed ala rm turned back on upon PT leaving to retrieve warm blanket, pt up in room using bleach wipes to wash hands with bed alarm activated, discussed hygiene including avoiding use of bleach on bare skin but pt reports doing this normally at home. Discussed D/C planning, pt reports getting a phone call that she has been kicked out of her apartment and will likely stay with her family who lives locally; CM unavailable but RN informed. Precautions Other Precautions: fall risk, monitor BP Cognition Overall Cognitive Status: Impaired Orientation Level: Oriented FUNCTIONAL MOBILITY Bed Mobility Supine to Sit: Modified independent - Transfers Sit to/from Stand: Standby assist Ambulation Maximal Ambulation Distance (feet): 250 Total Ambulation Distance (feet): 250 Ambulation Assistance: Standby assist Distance limited by?: Patient's ability Pattern: Alternating, Decreased lula, Left dec toe clearance, Ataxic Assistive Device: None Stairs Number of Stairs: 26 Stairs Assistance: Standby assist (CGA-SBA) Number of stairs limited by?: Patient's ability Stair Management Technique: [id number], Rail on left ascending BALANCE Balance: Yes Standardized Test Tinetti Performance Oriented Mobility Assessment : Activity Tolerance: Patient tolerated treatment without report of fatigue Nurse Made Aware: yes Safety Devices in Place: (call light in reach, needs met, tab alarm on) The patient demonstrated no indication of pain during therapy session. Education Completed: Education Topics: [x] Rationale for PT [] PT POC [x] DC planning [] Precautions [] Exercises [] Bed mobility [] Transfer training with hand placement [] Gait training [] Stair training [] Use of gait belt [] Other Completed with: [x] Patient [] Spouse [] Significant other [] Family [] C aregiver [] Other Completed by: [x] Verbal education [] Demonstration [] Handout [] Other: Response to Education: [x] Stated Understanding [] Reinforcement necessary [] Returned demonstration [] Demonstrated understanding [] No evidence of learning [] Refused Tinetti Performance Oriented Mobility Assessment (ANGELIC) Tinetti Assessment Tool: Balance Tasks Sitting balance: Steady, safe Arises: Able, uses arms to help Attempts to arise: Able to rise, 1 attempt Immediate standing balance: Steady without walker or other support Standing balance: Narrow stance w/o support Nudged: Staggers, grabs, catches self Eyes closed: Steady Turning 360 degrees - steps: Discontinuous steps Turning 360 degrees - steadiness: Unsteady (grabs, swaggers) Sitting down: Safe, smooth moiton Balance score:: 12 Tinetti Assessment Tool: Gait Tasks Initiation of gait: No hesitancy Step length & height - right swing foot: Right foot passes left stance foot Step length & height - right foot: Right foot completely clears floor Step length & height - left swing foot: Left foot passes right stance foot Step length & height - left foot: Left foot does not clear floor completely w/step Step symmetry: Right and left step appear equal Step continuity: Steps appear continuous Path: Mild/moderate deviation or uses walking aid Trunk: No sway, no flexion, no use of arms, & no use of walking aids Walking stance: Heels almost touching while walking Gait score:: 10 Tinetti Assessment Tool: Total Score Total score (balance + gait):: 22 Interpretation: 25-28 = Patient is not considered at risk for falls 19-24 = Patient is at risk for falls 0 - 19 = Patient is at high risk for falls iryani, Kofi alafro MD - 03/29/2018 11:26 AM PDT Progress Notes by Kofi Champion MD at 03/29/18 1126 Author: Kofi Champion MD Service: Hospitalist Author Type: Physician Filed: 03/29/18 1131 Date of Service: 03/29/181125 Status: Signed Public Bath Attendant: Kofi Champion MD (Physician) [facility] Service: Hospitalist Progress Note Hospital Day: LOS: 7 days Post-Op Day: * No surgery found * SUBJECTIVE Patient Summary: Events Overnight: Patient denies any symptoms and wants to go home. No chest pain or SOB and is saturating well on room air. Patient was dialyzed yesterday via right arm AV fist twan after fistulagram showed patent fistula. Scheduled Medications carvedilol 12.5 mg Oral BID WC diazePAM 5 mg Oral TID docusate sodium 100 mg Oral BID Or docusate 100 mg Per OG Tube BID heparin (porcine) 5000 unit/0.5mL 5,000 Units Subcutaneous 3 times per day NIFEdipine 60 mg Oral Daily sevelamer 800 mg Oral TID WC sodium chloride 10 mL Intravenous Q8H Continuous Infusions PRN Medications acetaminophen OR acetaminophen, albumin human, albumin human, albumin human, fentaNYL, heparin flush (PF), hydrALAZINE OR hydrALAZINE, labetalol OR labetalol, lidocaine, m idazolam, ondansetron OR ondansetron OBJECTIVE Vital Signs: BP 181/88 (BP Location: Left upper arm) | Pulse 96 | Temp 98.5 F (36.9 C) (Oral) | R mani 18 | Ht 1.676 m (5' 6") | Wt 48.4 kg (106 lb 11.2 oz) | LMP (Within Days) | SpO2 92 % | ? Unknown | BMI 17.22 kg/m Temp: [97.8 F (36.6 C)-98.5 F (36.9 C)] 98.5 F (36.9 C) (03/29 844) BP: (126-191)/(60-100) 181/88 (03/29 844) Heart Rate: [91-110] 96 (03/29 844) Resp: [8-20] 18 (03/29 844) SpO2: [92 %-99 %] 92 % (03/29 844) Weight: [48.4 kg (106 lb 11.2 oz)-49.9 kg (110 lb 0.2 oz)] 48.4 kg (106 lb 11.2 oz) (03/28 1930) Physical Exam Constitutional: She is oriented to person, place, and time. No distress. HENT: Mouth/Throat: No oropharyngeal exudate. Eyes: No scleral icterus. Neck: Neck supple. No JVD present. Cardiovascular: Normal rate, regular rhythm, normal heart sounds and intact distal pulses. Exam reveals no gallop and no friction rub. No murmur heard. Pulmonary/Chest: Effort normal and breath sounds normal. No respiratory distress. She has n o wheezes. She has no rales. She exhibits no tenderness. Abdomina/Gl: Soft. Bowel sounds are normal. She exhibits no distension and no mass. There i s no tenderness. There is no rebound and no guarding. No hernia. Musculoskeletal: She exhibits no edema, tenderness or deformity. Neurological: She is alert and oriented to person, place, and time. No cranial nerve defici t. Skin: Skin is warm and dry. No rash noted. She is not diaphoretic. No erythema. There is pa llor. Psychiatric: She has a normal mood and affect. Her behavior is normal. Nursing note and vitals reviewed. DATA CBC: Lab Results Component Value Date WBC 9.18 03/29/2018 RBC 3.23 (L) 03/29/2018 HGB 9.9 (L) 03/29/2018 HCT 29.1 (L) 03/29/2018 MCV 89.8 03/29/2018 MCH 30.7 03/29/2018 MCHC 34.1 03/29/2018 RDW 52.1 03/29/2018 PLT 221 03/29/2018 MPV 9.1 03/29/2018 DIFFTYPE MANUAL 03/29/2018 CMP: Lab Results Component Value Date NA 137 03/29/2018 K 3.7 03/29/2018 CL 99 03/29/2018 CO2 28 03/29/2018 ANIONGAP 14 03/29/2018 GLUF 105 (H) 03/29/2018 BUN 35 (H) 03/29/2018 CREATININE 4.3 (H) 03/29/2018 BCR 8 03/29/2018 CA 8.5 03/29/2018 PROT 6.9 03/22/2018 ALB 2.9 (L) 03/22/2018 GLOB 4.0 03/22/2018 BILITOT 0.6 03/22/2018 ALP 92 03/22/2018 AST 24 03/22/2018 ALT 26 03/22/2018 EGFR 12 (L) 03/29/2018 Xr Chest 1 View Result Date: 03/27/2018 1. Mild diffuse interstitial opacities to likely represent mild interstitial edema. 2. Palacio zy perihilar and bibasilar airspace disease, stable. 3. Small right-sided pleural effusion. Xr Chest 1 View Result Date: 03/24/2018 1. Pulmonary opacities, right worse than left, slightly improved. 2. Small pleural effusion s. 3. Endotracheal tube, enteric tube, and dialysis catheter in place. RADIA Electronicall y signed by Glenn Morton MD on Mar 24 2018 5:37AM Referring Provider Line: [phone] ID: [id number] Xr Chest 1 View Result Date: 03/22/2018 1. Unchanged appearance of endotracheal tube. Consider retraction approximately 2 cm. 2. Unchanged right internal jugular approach dual-lumen dialysis catheter. 3. Newly seen enter ic tube. 4. Slightly improved bilateral airspace disease, potentially pulmonary edema, vers us less likely pneumonia. P M Ir Dialysis Av Fistulagram Result Date: 03/28/2018 Right upper extremity fistulogram with no apparent abnormality. Return to dialysis. Conside r removal of the tunneled dialysis catheter. Electronically signed by Chalino Thomas MD on 03/08 4:04 PM PROBLEM LIST Principal Problem: Acute respiratory failure with hypoxia and hypercapnia ([facility]) Active Problems: Methamphetamine use Metabolic acidosis Agitation Pulmonary edema ESRD (end stage renal disease) ([facility]) ASSESSMENT & PLAN Acute respiratory failure due to flash pulmonary edema due to lack of BLOOD DONOR UNIT ASSISTANT for 1 month. SP r equired intubation and admission to ICU. She is doing after extubation and there is no sign of fluid overload. Patient was dialyzed yesterday. Accelerated hypertension. Will increase the dose of procardia. ESRD. On HD. Next HD most likely tomorrow. Drug abuse. Patient was very agitated at the time of admission and UDS was positive for met hamphetamine, THC and benzodiazepines. However patient denies using methamphetamine. She is advised to refrain from using any street drug. Anemia. Chronic and due to CKD. Management per nephrology team. Disposition: Likely discharge tomorrow. Code Status: Full Code Kofi Champion MD 03/29/2018 onversion Tra nsaction, Provider Unknown - 03/29/2018 4:59 AM PDTFormatting of this note might be differe nt from the original. Nurse Progress Note by Maria E Kaplan RN at 03/29/18458 Author: Maria E Kaplan RN Service: (none) Author Type: Registered Nurse Filed: 03/29/18 9279 Date of Service: 03/29/18458 Status: Signed Public Bath Attendant: Maria E Kaplan RN (Registered Nurse) Chart check complete. Assessment unchanged. onver chaz Transaction, Provider Unknown - 03/28/2018 11:43 PM PDT Nurse Progress Note by Maria E Kaplan RN at 03/28/182342 Author: Maria E Kaplan RN Service: (none) Author Type: Registered Nurse Filed: 03/28/182342 Date of Service: 03/28/182342 Status: Signed Public Bath Attendant: Maria E Kaplan RN (Registered Nurse) Received report from MAURICE Hammond and agree with evening assessment. No acute changes. onver chaz Transaction, Provider Unknown - 03/28/2018 10:33 PM PDT Nurse Progress Note by Stephany Polanco RN at 03/28/182232 Author: Stephany Polanco RN Service: (none) Author Type: Registered Nurse Filed: 03/28/182233 Date of Service: 03/28/182232 Status: Signed Public Bath Attendant: Stephany Polanco RN (Registered Nurse) End of shift audit: Signed and held orders: reviewed and released Medications parameters: completed as ordered Protocols: Completed Restraints: N/A Blood: N/A Audit completed. Stephany Polanco RN. 03/28/18 10:34 PM onver chaz Transaction, Provider Unknown - 03/28/2018 4:34 PM PDT Progress Notes by Terrell Nnuo RD at 03/28/184 Author: Terrell Nuno RD Service: (none) Author Type: Registered Dietitian Filed: 03/28/18 4193 Date of Service: 03/28/184 Status: Attested Public Bath Attendant: Terrell Nuno RD (Registered Dietitian) Cosigner: Antonina Darnell RD at 0744 Attestation signed by Antonina Darnell RD at 03/29/[address] 03/28/18 8849 Subjective Timepoint Follow up Pt c/o High risk follow-up. Pt extubated, TF has been d/c. On HD this am during visit, NPO for procedure. Was awake in bed and answering questions; pt was mumbling and hard to underst and. Reported by Patient Fluid / Beverage Intake Oral Fluids Amount NPO. Was on 1200 mL FR Liquid Meal Replacement or Supplement Pt requesting Boost. Informed her this counts towards FR, but pt insisted, says she doesn't drink much. Will send one Novasource renal per day at am snack to augment po intake, when pt is no longer NPO. Food Intake Amount of Food 100% breakfast and lunch on 03/26 charted. No po intake charted 03/27. Per R N pt barely ate this am, has poor appetite. Per pt she "ate a whole bunch." Denies nausea, c onstipation. Encouraged increased po when diet orders return. Type of Food / Meals NPO. Was on Renal diet. Meal / Snack Pattern Will send 2 glucerna bars as hs snack. Anthropometrics Weight change Wt up 3.2 kg from admit, pt BMI is now 18.75 (from 17.6) which is no longer c onsidered underweight. Per I/Os, pt is +1.4L, no edema charted. Will continue to monitor wt trend. Recommendations Recommended energy needs Return to Renal diet with 1200 mL fluid restriction when able/as t olerated. Once diet returns to renal 1200 mL FR, will send 2 glucerna bars as hs snack, and Novasource renal as am snack to augment po intake. Wt loss to be avoided. Will continue to f ollow per nutrition protocol. Nutritional Risk Nutritional risk High Follow up date 03/31/[address] onver chaz Transaction, Provider Unknown - 03/28/2018 4:23 PM PDT Nurse Progress Note by Stephany Polanco RN at 03/28/18 7001 Author: Stephayn Polanco RN Service: (none) Author Type: Registered Nurse Filed: 03/28/18 6908 Date of Service: 03/28/181622 Status: Signed Public Bath Attendant: Stephany Polanco RN (Registered Nurse) Patient fistula dressing clean, dry and intact besides pin point drop of blood in middle of dressing. No pain at the time. No signs of hematoma. Will continue to monitor. Stephany Polanco RN. 03/28/18 4:24 PM onver chaz Transaction, Provider Unknown - 03/28/2018 4:08 PM PDT Nurse Progress Note by Stephany Polanco RN at 03/28/18 160 Author: Stephany Polanco RN Service: (none) Author Type: Registered Nurse Filed: 03/28/18 1608 Date of Service: 03/28/181607 Status: Signed Public Bath Attendant: Stephany Polanco RN (Registered Nurse) Pt arrived back from IR. Per RN, no intervention done. Patient resting in bed. Will order u p food. Stephany Polanco RN. 03/28/18 4:08 PM avio Bryant MD - 03/28/2018 3:13 PM PDT Progress Notes by Favio Noyola MD at 03/28/18 1513 Author: Favio Noyola MD Service: Hospitalist Author Type: Physician Filed: 03/28/18 1518 Date of Service: 03/28/18 151 Status: Signed Public Bath Attendant: Favio Noyola MD (Physician) [facility] Service: Hospitalist Progress Note Pt: Aurea Perez AGE/SEX: 37 y.o. 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 The patient was very uncoo perative, and required IV Versed immediately upon evaluation. Because of the severe respir atory distress and other clinical findings, the decision was made to intubate her; she was g iven etomidate and rocuronium and was then intubated. The patient had initially said that she had not received hemodialysis "for several months" according to the documentation at [facility]. The ED physician felt that it was more probable that she had used methamphetam ine recently and that was what resulted in her acute pulmonary edema. Lab findings at [facility] were significant for serum CO211, WBC 16.3, BUN 65, creatin ine 5.26, lactic acid 7.8, and K of 3.3. ABG showed a pH of 7.08, pCO2 49.4, pO2 95, HCO3 14.4. A CXR showed pulmonary edema. After consulting with Dr. Sadnoval, the recommended 3 amps of sodium bicarbonate were given, and the patient was then transferred to [facility] for further management. ICU Timeline: 03/22: Pt presented to [facility] ED in severe respiratory distress. Intubated; tra nsferred to [facility] ICU. 03/23: Remained on MV, sedated on propofol and fentanyl; severe agitation during holiday. 03/24: Pt self-extubated at approximately 4:00 am. She became extremely agitated, viole nt, and verbally abusive. She was given 4 mg Versed, after which she required reintubation. 03/25: Remained on MV, sedated on versed and fentanyl; continues to be severely agitated when sedation is stopped. SUBJECTIVE: Patient seen and examine. Complaint of shortness of breath, she is very weak and said that she didn't take any of her medications or have any HD for past month. She doesn't recall being on steroids prior to that. Scheduled Medications: carvedilol 12.5 mg Oral BID WC diazePAM 5 mg Oral TID docusate sodium 100 mg Oral BID Or docusate 100 mg Per OG Tube BID heparin (porcine) 5000 unit/0.5mL 5,000 Units Subcutaneous 3 times per day NIFEdipine 60 mg Oral Daily sevelamer 800 mg Oral TID WC Continuous Infusions PRN Medications acetaminophen OR acetaminophen, albumin human, albumin human, albumin human, heparin fl ush (PF), hydrALAZINE OR hydrALAZINE, labetalol OR labetalol, ondansetron OR ond ansetron Allergy: Allergies Allergen Reactions Codeine Anaphylaxis Dilaudid is ok. No reaction there. Percocet is ok Imitrex [Sumatriptan] Anaphylaxis OBJECTIVE: Vitals: Temp: [97.8 F (36.6 C)-99.3 F (37.4 C)] 97.8 F (36.6 C) Heart Rate: [90-110] 103 Resp: [03-28] 10 BP: (150-199)/(73-107) 151/87 I&O Detailed Table: Intake/Output Summary (Last 24 hours) at 03/28/18 1513 Last data filed at 03/28/18 1246 Gross per 24 hour Intake 600 ml Output 3000 ml Net -2400 ml Patient Vitals for the past 96 hrs: Weight 03/28/18 1300 49.9 kg (110 lb 0.2 oz) 03/28/18 1246 49.9 kg (110 lb 0.2 oz) 03/28/18 0916 52.7 kg (116 lb 2.9 oz) 03/28/18 0800 52.7 kg (116 lb 2.9 oz) 03/27/18 2311 52.4 kg (115 lb 8.3 oz) 03/26/18 0430 52.2 kg (115 lb 1.3 oz) 03/25/18 1205 52.9 kg (116 lb 10 oz) 03/25/18 1145 52.9 kg (116 lb 10 oz) 03/25/18 0815 54.8 kg (120 lb 13 oz) 03/25/18 0755 54.8 kg (120 lb 13 oz) 03/25/18 0500 50.9 kg (112 lb 3.4 oz) Physical Examination: Constitutional: Alert and oriented to person, place, and time. HEENT: Neck supple, no JVD, non icteric sclera. Cardiovascular: Normal rate, regular rhythm, normal heart sounds with S1 and S2, and intact distal pulses. Exam reveals no gallop and no friction rub. No murmur heard. Pulmonary/Chest: Effort normal and breath sounds normal. No stridor. No respiratory distres s. Bilateral basilar crackles. Abdominal: Soft. Bowel sounds are normal. exhibits no distension and no mass. There is no t enderness. There is no rebound and no guarding. Extremeties/Musculoskeletal: Normal range of motion.exhibits no tenderness. exhibits no ed kristi. Normal equal peripheral pulses. Neurological: Alert and oriented to person, place, and time. No cranial nerve deficit. E xhibits normal muscle tone. No gross motor deficits. Skin: Skin is warm. No pallor. Patient has normal capillary refill, no mottling. Psychiatric: Has a normal mood and affect. Behavior is normal. Judgment normal. LABS: Recent Labs Lab 03/28/1843003/27/1842203/26/1841303/25/18419 WBC 8.95 8.59 6.68 7.81 HGB 9.7* 9.2* 8.7* 8.6* HCT 28.3* 26.5* 25.3* 25.2* PLT 216 163 160 154 NEUTOPHILPCT -- 77.39 71.16 71.16 MONOPCT -- 6.28 7.30 9.99 Recent Labs Lab 03/28/1843003/27/1842203/26/1841303/22/18 2151 NA 137 135 138 < > 139 K 4.1 3.6 3.4* < > 2.9* CL 100 98* 104 < > 105 CO2 22* 24 27 < > 19* BUN 75* 49* 29* < > 71* CREATININE 6.3* 5.1* 3.8* < > 5.6* PROT -- -- -- -- 6.9 BILITOT -- -- -- -- 0.6 ALT -- -- -- -- 26 AST -- -- -- -- 24 < > = values in this interval not displayed. Phosphorus: Lab Results Component Value Date PHOS 4.0 03/28/2018 Invalid input(s): LABALBU Recent Labs Lab 10/22/18 0431 10/21/18 0423 10/20/18 0414 MG 2.4 2.5* 2.3 No results for input(s): AMYLASE in the last 168 hours. No results for input(s): PHART, PO2ART, QFN9JXW, A9GUCMKW, BEART in the last 168 hours. No results for input(s): APTT, INR, PTT in the last 168 hours. No results for input(s): TSH, T3FREE, FREET4 in the last 168 hours. Recent Labs Lab 03/24/18 1313 03/24/18 0459 TROPONINI 0.22* 0.328* i PROBLEM LIST Principal Problem: Acute respiratory failure with hypoxia and hypercapnia ([facility]) Active Problems: Methamphetamine use Metabolic acidosis Agitation Pulmonary edema ESRD (end stage renal disease) ([facility]) ASSESSMENT & PLAN 1. Flash pulmonary edema causing Acute respiratory failure with hypoxia and hypercapnia. Intubated at [facility] initially, and reintubated here s/p extubation,improving, alessia nue HD per nephrology, discussed with Dr Vizcaino. Mild elevated troponin, likely due to pulmonary edema in setting of renal failure, will mon itor. 2. Extreme agitation/ anxiety on presentation improving, methamphetamine use. Urine drug screen positive for amphetamines, benzodiazepines, and THC at time of admission, but patient denies using, Suspected acute intoxication with meth upon initial presentation to [facility]. 3. Hypertension. increased Coreg, restarted nifedipine, may need to resume lisinopril, and Lasix as well as her home medications if blood pressure continue to be elevated, Hydralaz ine and labetalol PRN SBP >160. will resume oral medications. 4. ESRD, on hemodialysis, secondary to TTP/HUS and hypertensive nephrosclerosis. Nephrology is following. continue wit Hemodialysis, she will have fistulogram 03/28/18. 5. DVT prophylaxis: heparin SQ Favio Noyola MD 03/28/2018 3:13 PM onversion Transac tion, Provider Unknown - 03/28/2018 2:13 PM PDTFormatting of this note might be different f rom the original. Therapy Progress Note by BIRD Wheeler/L at 03/28/18 1413 Author: Mary Aleman OTR/L Service: (none) Author Type: Occupational Therapist Filed: 03/28/18 1414 Date of Service: 03/28/181412 Status: Signed Public Bath Attendant: Mary Aleman OTR/L (Occupational Therapist) 03/28/18 1412 OT Last Visit OT Received On 03/28/18 Requires OT Follow Up Unavailable Other Comments Comments spoke with RN pt just finished with HD and is very fatiuged, also planned for Fist ulagram this afternoon, recommended to re-attempt on 03/29. onver cahz Transaction, Provider Unknown - 03/28/2018 1:36 PM PDT Case Management by Patricia Ramesh RN at 03/28/186 Author: Patricia Ramesh RN Service: (none) Author Type: Registered Nurse Filed: 03/28/187 Date of Service: 03/28/186 Status: Signed Public Bath Attendant: Patricia Ramesh RN (Registered Nurse) 1100: spoke with MAURICE Hammond- no new CM needs at this time. Pt going to get a fistulogram. Per H&P, pt already on HD. onver chaz Transaction, Provider Unknown - 03/28/2018 12:47 PM PDT Therapy Progress Note by Jessica Barron PT at 03/28/18 1247 Author: Jessica Barron PT Service: (none) Author Type: Physical Therapist Filed: 03/28/18 1248 Date of Service: 03/28/18 1247 Status: Signed Public Bath Attendant: Jessica Barron PT (Physical Therapist) 03/28/18 1247 PT Last Visit PT Received On 03/28/18 Requires PT Follow Up Unavailable Other Comments Comments Pt. receiving dialysis at this time. onver chaz Transaction, Provider Unknown - 03/28/2018 11:51 AM PDT Nurse Progress Note by Stephany Polanco RN at 03/28/181150 Author: Stephany Polanco RN Service: (none) Author Type: Registered Nurse Filed: 03/28/181151 Date of Service: 03/28/181150 Status: Signed Public Bath Attendant: Stephany Polanco RN (Registered Nurse) Received report from MAURICE Francisco. Agree with shift assessment. Will resume care of patient. Stephany Polanco RN. 03/28/18 11:52 AM onver chaz Transaction, Provider Unknown - 03/28/2018 4:36 AM PDT Nurse Progress Note by Correi Avalos RN at 03/28/18435 Author: Corrie Avalos RN Service: (none) Author Type: Registered Nurse Filed: 03/28/188 Date of Service: 03/28/18435 Status: Signed Public Bath Attendant: Corrie Avalos RN (Registered Nurse) BP's elevated this shift. PRN's given x7 in addition to one time dose of clonidine as order ed by attending MD. BP trending down at this time. Patient states she has not slept in over a day. Upon rounding, patient found to have eyes c losed and snoring. T max 99.1. No other acute events this shift. End of shift chart review/audit complete. Corrie Avalos RN onver chaz Transaction, Provider Unknown - 03/28/2018 2:30 AM PDT Nurse Progress Note by Corrie Avalos RN at 03/28/18229 Author: Corrie Avlaos RN Service: (none) Author Type: Registered Nurse Filed: 03/28/18231 Date of Service: 03/28/18229 Status: Signed Public Bath Attendant: Corrie Avalos RN (Registered Nurse) Patient medication with PRN BP medications x6. MD notified of SBP sustaining >180. One time dose of 0.1mg PO clonidine ordered to be administered pending pharmacy verification. Cyclin g patient BP q 30 minutes at this time. Corrie Avalos RN onver chaz Transaction, Provider Unknown - 03/27/2018 6:10 PM PDT Nurse Progress Note by Katie Short RN at 03/27/181809 Author: Katie Short RN Service: (none) Author Type: Registered Nurse Filed: 03/27/181811 Date of Service: 03/27/181809 Status: Signed Public Bath Attendant: Katie Short RN (Registered Nurse) Patient complaining of shortness of breath, her spO2 Was 92-94% on room air. She was plac ed on 2L of oxygen via NC. End of Shift Review done. Katie Short RN 03/27/2018 6:12 PM riTrenton pandey MD - 03/27/2018 12:26 PM PDTFormatting of this note might be different from th e original. Progress Notes by Trenton Faria MD at 03/27/18 1226 Author: Trenton Faria MD Service: Nephrology Author Type: Physician Filed: 03/27/181649 Date of Service: 03/27/186 Status: Signed Public Bath Attendant: Trenton Faria MD (Physician) [facility] Service: NEPHROLOGY Progress Note Aurea Perez 37 y.o. [id number] 7127/7127-1 female [facility] Day: LOS: 5 days 37-year-old female with past medical history significant for end-stage renal disease on hem odialysis 3 times a week secondary to TTP/HUS, hypertension, methamphetamine usage initially presented to [facility] in [place] due to worsening shortness of breath/ re spiratory failure requiring intubation/ Meth use urine screen +ve. Nephrology consulted for evaluation and management of ESRD ONSET Chronic severity severe Associated with fluid electrolyte acid base imbalances Assess need for hd/uf Seen and examined Got extubated now on floor Awake at times anxious, +ve cough/ mild sob No cp, sob, N, V, D, fever Past Medical History Diagnosis Date Preeclampsia Past Surgical History Procedure Laterality Date SECTION Prescriptions Prior to Admission Medication Sig Dispense Refill Last Dose acetaminophen (TYLENOL) 325 MG tablet Take 325-650 mg by mouth every 6 (six) hours as n eeded. B Cztmgrp-N-Tdxil Acid (RENAL-KIT) 0.8 MG TABS Take 1 tablet by mouth daily. cholecalciferol (VITAMIN D-3) 1000 units tablet Take 1,000 Units by mouth daily. eculizumab (SOLIRIS) 300 MG/30ML injection Inject 1,200 mg into the vein every 30 (thir ty) days. furosemide (LASIX) 40 MG tablet Take 80 mg by mouth daily. lisinopril (ZESTRIL) 20 MG tablet Take 20 mg by mouth daily. NIFEdipine (PROCARDIA XL) 60 MG 24 hr tablet Take 60 mg by mouth daily. oxyCODONE (ROXICODONE) 5 MG immediate release tablet Take 5-10 mg by mouth every 6 (six ) hours as needed. sucroferric oxyhydroxide (VELPHORO) 500 MG chewable tablet Take 500 mg by mouth 3 (thre e) times daily with meals. carvedilol (COREG) 6.25 MG tablet Take 6.25 mg by mouth 2 (two) times daily. diphenhydrAMINE (BENADRYL) 25 MG tablet Take 25 mg by mouth nightly as needed. hggcsmitmosalar-oydbwemnnryitz-gzafhtrz (DUKES MOUTHWASH) suspension Swish and spit 10 mLs every 6 (six) hours as needed for Sore Throat. 240 mL 0 epoetin ant (PROCRIT) 11444 UNIT/ML injection Inject 8,000 Units into the [...] day and then stop 10 tablet 0 Allergies Allergen Reactions Codeine Anaphylaxis Dilaudid is ok. No reaction there. Percocet is ok Imitrex [Sumatriptan] Anaphylaxis History reviewed. No pertinent family history. Social History Social History Marital status: Spouse [...] Narrative No narrative on file Scheduled Medications carvedilol 6.25 mg Oral BID WC diazePAM 5 mg Oral TID docusate sodium 100 mg Oral BID Or docusate 100 mg Per OG Tube BID heparin (porcine) 5000 unit/0.5mL 5,000 Units Subcutaneous 3 times per day Continuous Infusions PRN Medications acetaminophen OR acetaminophen, albumin human, albumin human, heparin flush (PF), hydrA LAZINE OR hydrALAZINE, labetalol OR labetalol, ondansetron OR ondansetron Allergy: Allergies Allergen Reactions Codeine Anaphylaxis Dilaudid is ok. No reaction there. Percocet is ok Imitrex [Sumatriptan] Anaphylaxis OBJECTIVE Vital Signs: BP 158/84 | Pulse 88 | Temp 98.3 F (36.8 C) (Oral) | Resp 18 | Ht 1.676 m (5' 6") | Wt 52.2 kg (115 lb 1.3 oz) | SpO2 95% | ? Unknown | BMI 18.57 kg/m I&O Detailed Table: I/O last 3 completed shifts: In: 1131.3 [I.V.:591.3; NG/GT:540] Out: 700 [Urine:700] Weight change: Examination: APPEARANCE: The patient is lying in no apparent distress, awake and alert VITALS: Reviewed as listed. HEAD: NC/AT. LUNGS: COARSE BS on auscultation bilaterally, no respiratory distress. HEART: S1, S2, no pericardial rub noted. ABDOMEN: Full, soft, no tenderness. EXTREMITIES: no pedal edema noted. NEUROLOGIC: no gross focal motor deficit noted PSYCH: awake and alert, very anxious R ARM AVF +ve thrill/ bruit R IJ TUNNELED HD CATHETER IN PLACE LABS: Recent Results (from the past 24 hour(s)) Sputum cult w/ gram stain Collection Time: 03/26/18 4:30 PM Result Value Ref Range Specimen Description TRACHEAL ASPIRATE GRAM STAIN GREATER THAN 10 WBCS/LPF GRAM STAIN LESS THAN 10 SEC/LPF GRAM STAIN 3+ GRAM STAIN GRAM POSITIVE COCCI GRAM STAIN 1+ GRAM STAIN GRAM NEGATIVE RODS CULTURE 3+ CULTURE NORMAL UPPER RESPIRATORY SASKIA Basic metabolic panel Collection Time: 03/27/18 4:23 AM Result Value Ref Range SODIUM 135 135 - 145 mmol/L POTASSIUM 3.6 3.5 - 4.9 mmol/L CHLORIDE 98 (L) 99 - 109 mmol/L CO2 24 23 - 32 mmol/L ANION GAP AGAP 17 5 - 20 mmol/L GLUCOSE 146 (H) 65 - 99 mg/dL BUN 49 (H) 8 - 25 mg/dL CREATININE 5.1 (H) 0.50 - 1.00 mg/dL BUN/CREAT 10 CALCIUM 8.4 (L) 8.5 - 10.5 mg/dL EGFR 9 (L) >60 mL/min/1.73m2 CBC w/auto diff (reflex to manual) Collection Time: 03/27/18 4:23 AM Result Value Ref Range WBC 8.59 3.80 - 11.00 K/uL RBC 2.96 (L) 3.70 - 5.10 M/uL HGB 9.2 (L) 11.3 - 15.5 g/dL HCT 26.5 (L) 34.0 - 46.0 % MCV 89.6 80.0 - 100.0 fl MCH 31.0 27.0 - 34.0 pg MCHC 34.6 32.0 - 35.5 g/dL RDW SD 51.6 37 - 53 fl PLT 163 150 - 400 K/uL MPV 10.0 fl DIFF TYPE AUTOMATED NEUTROPHILS 77.39 % LYMPHOCYTES 14.24 % MONOCYTES 6.28 % EOSINOPHILS 1.74 % BASOPHILS 0.35 % NEUTROPHILS ABS 6.65 1.90 - 7.40 K/uL LYMPHOCYTES ABS 1.22 1.00 - 3.90 K/uL MONOCYTES ABS 0.54 0.00 - 0.80 K/uL EOSINOPHILS ABS 0.15 0.00 - 0.50 K/uL BASOPHILS ABS 0.03 0.00 - 0.10 K/uL Magnesium Collection Time: 03/27/18 4:23 AM Result Value Ref Range MAGNESIUM 2.5 (H) 1.7 - 2.4 mg/dL Phosphorus Collection Time: 03/27/18 4:23 AM Result Value Ref Range PHOSPHORUS 3.6 2.3 - 4.8 mg/dL IMAGING: Xr Chest 1 View Result Date: 03/27/2018 AUREA L CHRIS XR CHEST 1 VIEW HISTORY: 37 years. Female. Pneumonia TECHNIQUE: Single portable anterior view of the chest was obtained. COMPARISON: 03/24/2018 FINDINGS: The heart is stable in size. Right-sided dialysis catheter tip located in region the right atrium. Mi ld diffuse interstitial opacities. Hazy perihilar and bibasilar opacities. No pneumothorax. Small right-sided pleural effusion. 1. Mild diffuse interstitial opacities to likely represent mild interstitial edema. 2. Palacio zy perihilar and bibasilar airspace disease, stable. 3. Small right-sided pleural effusion. Xr Chest 1 View Result Date: 03/24/2018 EXAM: CHEST RADIOGRAPHY EXAM DATE: 03/24/2018 05:18 AM. CLINICAL HISTORY: Tube/line positi on. COMPARISON: XR CHEST 1 VIEW 03/22/2018 10:06 PM. TECHNIQUE: 1 view. FINDINGS: Lungs/Pl eura: Bilateral pulmonary opacities, right worse than left, perhaps slightly improved compar ed with the prior exam. Small pleural effusions. Costophrenic angles are not completely incl uded. No pneumothorax identified. Mediastinum: Within exam limitations, the cardiomediastin al contour is normal. Other: Endotracheal tube is in place with the tip 4.2 cm above the ca miguelina. Enteric tube tip is in the stomach. Right-sided dialysis catheter at the cavoatrial ju nction. 1. Pulmonary opacities, right worse than left, slightly improved. 2. Small pleural effusion s. 3. Endotracheal tube, enteric tube, and dialysis catheter in place. CINDY Rees y signed by Glenn Morton MD on Mar 24 2018 5:37AM Referring Provider Line: [phone] ID: [id number] Xr Chest 1 View Result Date: 03/22/2018 AUREA PEREZ XR CHEST 1 VIEW 03/22/2018 10:06 PM HISTORY: Acute respiratory failure, status post intubation. TECHNIQUE: AP chest radiograph 2203 hours. COMPARISON: Chest radiog raph March 18, 2018. FINDINGS: An endotracheal tube is again noted with the tip approximat rajinder 18 mm from the hasmukh, relatively unchanged. A right subclavian approach central dual-hiren men dialysis catheter is again seen with the tip overlying the right ventricle. An enteric t ube is newly noted, coursing through the stomach and off the image inferiorly. Bilateral air space opacities are again noted and emanate from the bilateral parahilar regions, slightly i mproved compared to the previous study. No pneumothorax is seen. Mild blunting of the costop hrenic angles is noted. 1. Unchanged appearance of endotracheal tube. Consider retraction approximately 2 cm. 2. Unchanged right internal jugular approach dual-lumen dialysis catheter. 3. Newly seen enter ic tube. 4. Slightly improved bilateral airspace disease, potentially pulmonary edema, vers us less likely pneumonia. P M X-ray Chest 1 View Result Date: 03/22/2018 This is a non-reportable procedure without a radiologist report and is used for image [employer] only Patient's old records, imaging and labs were reviewed in detail and summarized. PROBLEM LIST Principal Problem: Acute respiratory failure with hypoxia and hypercapnia ([facility]) Active Problems: Methamphetamine use Metabolic acidosis Agitation ASSESSMENT & PLAN ESRD ON HD No need for hd/uf today Plan for hd/uf in am Assess daily for need for hd & uf Fluid restriction 1.2 litres/24 hours Strict I & O Daily RFP Renal diet Daily weights will help with subsequent hd with uf Dose all meds per protocol for ESRD on hd Acute pulmonary edema improved Likely flash pulmonary edema due to methamphetamine usage possibly Control blood pressure ANEMIA IN ESRD EPOGEN TO KEEP HGB 03-17 Lab Results Component Value Date HGB 9.2 (L) 03/27/2018 HGB 8.7 (L) 03/26/2018 HGB 8.6 (L) 03/25/2018 HYPERTENSION Labile WATCH BP CLOSELY DURING HOSPITALIZATION LOW NA DIET Will adjust BP meds according to BP readings BP Readings from Last 3 Encounters: 03/27/18 158/84 01/14/17 160/85 HYPERPHOSPHATEMIA LOW P DIET Start PO4 BINDERS extubated renvela with meals Lab Results Component Value Date PHOS 3.6 03/27/2018 PHOS 2.7 03/26/2018 PHOS 3.5 03/25/2018 HYPOALBUMINEMIA INCREASE PROTEIN INTAKE Lab Results Component Value Date ALB 2.9 (L) 03/22/2018 ALB 2.8 (L) 01/13/2017 CASE DISCUSSED IN DETAIL WITH PATIENT/ care team, ANSWERS ALL QUESTIONS IN DETAIL, VERBALIZ ES UNDERSTANDING TRENTON FARIA MD 03/27/2018 Sia Zheng Seen earlier and charting completed later Dictation software, [employer], used which may contain error for similar sounding words even af ter review. Personal communication requested for any clarification. Favio Dumont MD - 03/27/2018 8:47 AM PDT Progress Notes by Favio Noyola MD at 03/27/18 0872 Author: Favio Noyola MD Service: Hospitalist Author Type: Physician Filed: 03/27/18 1429 Date of Service: 03/27/18 0861 Status: Addendum Public Bath Attendant: Favio Noyola MD (Physician) Related Notes: Original Note by Favio Noyola MD (Physician) filed at 03/27/18 1424 [facility] Service: Hospitalist Progress Note Pt: Aurea Perez AGE/SEX: 37 y.o. 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 The patient was very uncoo perative, and required IV Versed immediately upon evaluation. Because of the severe respir atory distress and other clinical findings, the decision was made to intubate her; she was g iven etomidate and rocuronium and was then intubated. The patient had initially said that she had not received hemodialysis "for several months" according to the documentation at [facility]. The ED physician felt that it was more probable that she had used methamphetam ine recently and that was what resulted in her acute pulmonary edema. Lab findings at [facility] were significant for serum CO211, WBC 16.3, BUN 65, creatin ine 5.26, lactic acid 7.8, and K of 3.3. ABG showed a pH of 7.08, pCO2 49.4, pO2 95, HCO3 14.4. A CXR showed pulmonary edema. After consulting with Dr. Sandoval, the recommended 3 amps of sodium bicarbonate were given, and the patient was then transferred to [facility] for further management. ICU Timeline: 03/22: Pt presented to [facility] ED in severe respiratory distress. Intubated; tra nsferred to [facility] ICU. 03/23: Remained on MV, sedated on propofol and fentanyl; severe agitation during sedati holiday. 03/24: Pt self-extubated at approximately 4:00 am. She became extremely agitated, viole nt, and verbally abusive. She was given 4 mg Versed, after which she required reintubation. 03/25: Remained on MV, sedated on versed and fentanyl; continues to be severely agitated when sedation is stopped. SUBJECTIVE: Patient seen and examine. Complaint of shortness of breath, lot of iniguez colored phlegm, she has some chest pressure. She complains of lower abdominal pain as she said it is menstrual cramps. Scheduled Medications: carvedilol 6.25 mg Oral BID WC diazePAM 5 mg Oral TID docusate sodium 100 mg Oral BID Or docusate 100 mg Per OG Tube BID heparin (porcine) 5000 unit/0.5mL 5,000 Units Subcutaneous 3 times per day Continuous Infusions PRN Medications acetaminophen OR acetaminophen, albumin human, albumin human, heparin flush (PF), hydrA LAZINE OR hydrALAZINE, labetalol OR labetalol, ondansetron OR ondansetron Allergy: Allergies Allergen Reactions Codeine Anaphylaxis Dilaudid is ok. No reaction there. Percocet is ok Imitrex [Sumatriptan] Anaphylaxis OBJECTIVE: Vitals: Temp: [97.8 F (36.6 C)-99.1 F (37.3 C)] 98.4 F (36.9 C) Heart Rate: [84-104] 87 Resp: [13-27] 18 BP: (127-202)/(70-124) 175/95 FiO2 : [25 %] 25 % I&O Detailed Table: Intake/Output Summary (Last 24 hours) at 03/27/18 0847 Last data filed at 03/26/18 2000 Gross per 24 hour Intake 206.28 ml Output 700 ml Net -493.72 ml Patient Vitals for the past 96 hrs: Weight 03/26/18 0430 52.2 kg (115 lb 1.3 oz) 03/25/18 1205 52.9 kg (116 lb 10 oz) 03/25/18 1145 52.9 kg (116 lb 10 oz) 03/25/18 0815 54.8 kg (120 lb 13 oz) 03/25/18 0755 54.8 kg (120 lb 13 oz) 03/25/18 0500 50.9 kg (112 lb 3.4 oz) 03/24/18 0600 52.5 kg (115 lb 11.9 oz) 03/23/18 1440 54.9 kg (121 lb 0.5 oz) 03/23/18 1426 54.9 kg (121 lb 0.5 oz) 03/23/18 1056 55.8 kg (123 lb 0.3 oz) 03/23/18 1000 55.8 kg (123 lb 0.3 oz) Physical Examination: Constitutional: Alert and oriented to person, place, and time. HEENT: Neck supple, no JVD, non icteric sclera. Cardiovascular: Normal rate, regular rhythm, normal heart sounds with S1 and S2, and intact distal pulses. Exam reveals no gallop and no friction rub. No murmur heard. Pulmonary/Chest: Effort normal and breath sounds normal. No stridor. No respiratory distres s. Bilateral basilar crackles. Abdominal: Soft. Bowel sounds are normal. exhibits no distension and no mass. There is no t enderness. There is no rebound and no guarding. Extremeties/Musculoskeletal: Normal range of motion.exhibits no tenderness. exhibits no ed kristi. Normal equal peripheral pulses. Neurological: Alert and oriented to person, place, and time. No cranial nerve deficit. E xhibits normal muscle tone. No gross motor deficits. Skin: Skin is warm. No pallor. Patient has normal capillary refill, no mottling. Psychiatric: Has a normal mood and affect. Behavior is normal. Judgment normal. LABS: Recent Labs Lab 03/27/1842203/26/1841303/25/18419 WBC 8.59 6.68 7.81 HGB 9.2* 8.7* 8.6* HCT 26.5* 25.3* 25.2* PLT 163 160 154 NEUTOPHILPCT 77.39 71.16 71.16 MONOPCT 6.28 7.30 9.99 Recent Labs Lab 03/27/1842203/26/1841303/25/1841903/22/18 2151 NA 135 138 144 < > 139 K 3.6 3.4* 3.6 < > 2.9* CL 98* 104 108 < > 105 CO2 24 27 23 < > 19* BUN 49* 29* 43* < > 71* CREATININE 5.1* 3.8* 4.9* < > 5.6* PROT -- -- -- -- 6.9 BILITOT -- -- -- -- 0.6 ALT -- -- -- -- 26 AST -- -- -- -- 24 < > = values in this interval not displayed. Phosphorus: Lab Results Component Value Date PHOS 3.6 03/27/2018 Invalid input(s): LABALBU Recent Labs Lab 03/27/1842203/26/1841303/25/18419 MG 2.5* 2.3 2.4 No results for input(s): AMYLASE in the last 168 hours. No results for input(s): PHART, PO2ART, IRI4JIY, B4BETCDO, BEART in the last 168 hours. No results for input(s): APTT, INR, PTT in the last 168 hours. No results for input(s): TSH, T3FREE, FREET4 in the last 168 hours. Recent Labs Lab 03/24/18 1313 03/24/189 TROPONINI 0.22* 0.328* i PROBLEM LIST Principal Problem: Acute respiratory failure with hypoxia and hypercapnia (HCC) Active Problems: Methamphetamine use Metabolic acidosis Agitation ASSESSMENT & PLAN 1. Flash pulmonary edema causing Acute respiratory failure with hypoxia and hypercapnia. Intubated at [facility] initially, and reintubated here s/p extubation,improving, alessia nue HD per nephrology, discussed with Dr Vizcaino. Mild elevated troponin, likely due to pulmonary edema in setting of renal failure, will mon itor. 2. Extreme agitation/ anxiety on presentation and again after self-extubation on 03/24. m ethamphetamine use. Urine drug screen positive for amphetamines, benzodiazepines, and THC at time of admission. Suspected acute intoxication with meth upon initial presentation to [facility]. 3. Hx hypertension. Previously on Coreg, nifedipine, lisinopril, and Lasix, Hydralazin e and labetalol PRN SBP >160. will resume oral medications. 4. ESRD, on hemodialysis, secondary to TTP/HUS and hypertensive nephrosclerosis. Nephrology is following. Hemodialysis was last done on 03/25 with 2 L of fluid taken off. 5. DVT prophylaxis: heparin SQ Favio Noyola MD 03/27/2018 8:47 AM onversion Transac tion, Provider Unknown - 03/27/2018 3:45 AM PDTFormatting of this note might be different f rom the original. Nurse Progress Note by Allyson Vidales RN at 03/27/18 3525 Author: Allyson Vidales RN Service: (none) Author Type: Registered Nurse Filed: 03/27/18 0357 Date of Service: 03/27/18344 Status: Signed Public Bath Attendant: Allyson Vidales RN (Registered Nurse) Pt to 7 room 71. Report given to MAURICE Houston, who will assume care of pt at this time. Allyson Vidales RN onver chaz Transaction, Provider Unknown - 03/26/2018 12:52 PM PDT Nurse Progress Note by Kristi Fang RN at 03/26/18 4302 Author: Kristi Fang RN Service: (none) Author Type: Registered Nurse Filed: 03/26/18 4964 Date of Service: 03/26/18 125 Status: Signed Public Bath Attendant: Kristi Fang RN (Registered Nurse) Safety plan reviewed with lead RN this morning. Pt remains calm and sedated at this time (s ee AUG). Pt becomes intermittently agitated and restless with turns and other nursing cares. Oral Valium started and given per MD orders (see AUG) with plan to try to titrate Versed gt t down later this afternoon. Trenton Burch MD - 03/26/2018 10:57 AM PDTFormatting of this note might be different from th e original. Progress Notes by Trenton Faria MD at 03/26/181056 Author: Trenton Faria MD Service: Nephrology Author Type: Physician Filed: 04/02/18 0125 Date of Service: 03/26/181056 Status: Signed Public Bath Attendant: Trenton Faria MD (Physician) [facility] Service: NEPHROLOGY Progress Note Aurea Perez 37 y.o. [id number] female [facility] Hospital Day: LOS: 4 days 37-year-old female with past medical history significant for end-stage renal disease on hem odialysis 3 times a week secondary to TTP/HUS, hypertension, methamphetamine usage initially presented to [facility] in [place] due to worsening shortness of breath/ re spiratory failure requiring intubation/ Meth use urine screen +ve. Nephrology consulted for evaluation and management of ESRD ONSET Chronic severity severe Associated with fluid electrolyte acid base imbalances Assess need for hd/uf Seen and examined Remains intubated on ventilator Review of Systems Cannot assess given patient intubated on ventilator Past Medical History Diagnosis Date Preeclampsia Past Surgical History Procedure Laterality Date SECTION Prescriptions Prior to Admission Medication Sig Dispense Refill Last Dose acetaminophen (TYLENOL) 325 MG tablet Take 325-650 mg by mouth every 6 (six) hours as n eeded. B Gaepucr-W-Fedvu Acid (RENAL-KIT) 0.8 MG TABS Take 1 tablet by mouth daily. cholecalciferol (VITAMIN D-3) 1000 units tablet Take 1,000 Units by mouth daily. eculizumab (SOLIRIS) 300 MG/30ML injection Inject 1,200 mg into the vein every 30 (thir ty) days. furosemide (LASIX) 40 MG tablet Take 80 mg by mouth daily. lisinopril (ZESTRIL) 20 MG tablet Take 20 mg by mouth daily. NIFEdipine (PROCARDIA XL) 60 MG 24 hr tablet Take 60 mg by mouth daily. oxyCODONE (ROXICODONE) 5 MG immediate release tablet Take 5-10 mg by mouth every 6 (six ) hours as needed. sucroferric oxyhydroxide (VELPHORO) 500 MG chewable tablet Take 500 mg by mouth 3 (thre e) times daily with meals. carvedilol (COREG) 6.25 MG tablet Take 6.25 mg by mouth 2 (two) times daily. diphenhydrAMINE (BENADRYL) 25 MG tablet Take 25 mg by mouth nightly as needed. oywtjfrdtlxnpmq-ylkuvaccloliax-zyjtlunh (DUKES MOUTHWASH) suspension Swish and spit 10 mLs every 6 (six) hours as needed for Sore Throat. 240 mL 0 epoetin ant (PROCRIT) 22373 UNIT/ML injection Inject 8,000 Units into the [...] day and then stop 10 tablet 0 Allergies Allergen Reactions Codeine Anaphylaxis Dilaudid is ok. No reaction there. Percocet is ok Imitrex [Sumatriptan] Anaphylaxis History reviewed. No pertinent family history. Cannot assess given patient intubated on ventilator no family members present Social History Social History Marital status: Spouse [...] Social History Narrative No narrative on file Cannot assess given patient intubated on ventilator no family members present What ever was obtained from the records Scheduled Medications chlorhexidine gluconate 15 mL Mouth/Throat Q12H diazePAM 5 mg Oral TID docusate sodium 100 mg Oral BID Or docusate 100 mg Per OG Tube BID famotidine 20 mg Oral Daily Or famotidine 20 mg Intravenous Daily heparin (porcine) 5000 unit/0.5mL 5,000 Units Subcutaneous 3 times per day Continuous Infusions fentaNYL in NS 5 mcg/mL 100 mcg/hr (03/26/18 0336) midazolam in NS 10 mg/hr (03/26/18 0840) propofol Stopped (03/24/18 1256) PRN Medications acetaminophen OR acetaminophen, albumin human, albumin human, heparin flush (PF), hydrA LAZINE OR hydrALAZINE, labetalol OR labetalol, nystatin, ondansetron OR ondanset pepe, pancrelipase (Fcf-Qafo-Jhlm)12,000 units, petrolatum, sodium bicarbonate Allergy: Allergies Allergen Reactions Codeine Anaphylaxis Dilaudid is ok. No reaction there. Percocet is ok Imitrex [Sumatriptan] Anaphylaxis OBJECTIVE Vital Signs: BP 157/80 | Pulse 84 | Temp 98.8 F (37.1 C) (Oral) | Resp 14 | Ht 1.676 m (5' 6") | Wt 52.2 kg (115 lb 1.3 oz) | SpO2 97% | ? Unknown | BMI 18.57 kg/m I&O Detailed Table: I/O last 3 completed shifts: In: 3494.6 [I.V.:1050.6; Other:900; NG/GT:1544] Out: 2900 [Other:2900] Weight change: 3.9 kg (8 lb 9.6 oz) Examination: APPEARANCE: The patient is lying in no apparent distress intubated on ventilator, sedated. VITALS: Reviewed as listed. HEAD: NC/AT. +ve pale conjunctiva ENT: +ve ETT LUNGS: GOOD A/E on auscultation bilaterally. HEART: S1, S2, no pericardial rub noted. ABDOMEN: Full, soft, no tenderness. EXTREMITIES: no pedal edema noted. NEUROLOGIC: cannot assess intubated on ventilator PSYCH: cannot assess intubated on ventilator R ARM AVF +ve thrill/ bruit R IJ TUNNELED HD CATHETER IN PLACE LABS: Recent Results (from the past 24 hour(s)) Basic metabolic panel Collection Time: 03/26/18 4:14 AM Result Value Ref Range SODIUM 138 135 - 145 mmol/L POTASSIUM 3.4 (L) 3.5 - 4.9 mmol/L CHLORIDE 104 99 - 109 mmol/L CO2 27 23 - 32 mmol/L ANION GAP AGAP 11 5 - 20 mmol/L GLUCOSE 123 (H) 65 - 99 mg/dL BUN 29 (H) 8 - 25 mg/dL CREATININE 3.8 (H) 0.50 - 1.00 mg/dL BUN/CREAT 8 CALCIUM 8.2 (L) 8.5 - 10.5 mg/dL EGFR 13 (L) >60 mL/min/1.73m2 CBC w/auto diff (reflex to manual) Collection Time: 03/26/18 4:14 AM Result Value Ref Range WBC 6.68 3.80 - 11.00 K/uL RBC 2.80 (L) 3.70 - 5.10 M/uL HGB 8.7 (L) 11.3 - 15.5 g/dL HCT 25.3 (L) 34.0 - 46.0 % MCV 90.4 80.0 - 100.0 fl MCH 31.0 27.0 - 34.0 pg MCHC 34.3 32.0 - 35.5 g/dL RDW SD 53.4 (H) 37 - 53 fl PLT 160 150 - 400 K/uL MPV 8.9 fl DIFF TYPE AUTOMATED NEUTROPHILS 71.16 % LYMPHOCYTES 19.23 % MONOCYTES 7.30 % EOSINOPHILS 2.16 % BASOPHILS 0.15 % NEUTROPHILS ABS 4.76 1.90 - 7.40 K/uL LYMPHOCYTES ABS 1.29 1.00 - 3.90 K/uL MONOCYTES ABS 0.49 0.00 - 0.80 K/uL EOSINOPHILS ABS 0.14 0.00 - 0.50 K/uL BASOPHILS ABS 0.01 0.00 - 0.10 K/uL Magnesium Collection Time: 03/26/18 4:14 AM Result Value Ref Range MAGNESIUM 2.3 1.7 - 2.4 mg/dL Phosphorus Collection Time: 03/26/18 4:14 AM Result Value Ref Range PHOSPHORUS 2.7 2.3 - 4.8 mg/dL IMAGING: Xr Chest 1 View Result Date: 03/24/2018 EXAM: CHEST RADIOGRAPHY EXAM DATE: 03/24/2018 05:18 AM. CLINICAL HISTORY: Tube/line positi on. COMPARISON: XR CHEST 1 VIEW 03/22/2018 10:06 PM. TECHNIQUE: 1 view. FINDINGS: Lungs/Pl eura: Bilateral pulmonary opacities, right worse than left, perhaps slightly improved compar ed with the prior exam. Small pleural effusions. Costophrenic angles are not completely incl uded. No pneumothorax identified. Mediastinum: Within exam limitations, the cardiomediastin al contour is normal. Other: Endotracheal tube is in place with the tip 4.2 cm above the ca miguelina. Enteric tube tip is in the stomach. Right-sided dialysis catheter at the cavoatrial ju nction. 1. Pulmonary opacities, right worse than left, slightly improved. 2. Small pleural effusion s. 3. Endotracheal tube, enteric tube, and dialysis catheter in place. RADIA Ulyssesall y signed by Glenn Morton MD on Mar 24 2018 5:37AM Referring Provider Line: [phone] ID: [id number] Xr Chest 1 View Result Date: 03/22/2018 AUREA PEREZ XR CHEST 1 VIEW 03/22/2018 10:06 PM HISTORY: Acute respiratory failure, status post intubation. TECHNIQUE: AP chest radiograph 2203 hours. COMPARISON: Chest radiog raph March 18, 2018. FINDINGS: An endotracheal tube is again noted with the tip approximat rajinder 18 mm from the hasmukh, relatively unchanged. A right subclavian approach central dual-hiren men dialysis catheter is again seen with the tip overlying the right ventricle. An enteric t ube is newly noted, coursing through the stomach and off the image inferiorly. Bilateral air space opacities are again noted and emanate from the bilateral parahilar regions, slightly i mproved compared to the previous study. No pneumothorax is seen. Mild blunting of the costop hrenic angles is noted. 1. Unchanged appearance of endotracheal tube. Consider retraction approximately 2 cm. 2. Unchanged right internal jugular approach dual-lumen dialysis catheter. 3. Newly seen enter ic tube. 4. Slightly improved bilateral airspace disease, potentially pulmonary edema, vers us less likely pneumonia. P M X-ray Chest 1 View Result Date: 03/22/2018 This is a non-reportable procedure without a radiologist report and is used for image [employer] only Patient's old records, imaging and labs were reviewed in detail and summarized. PROBLEM LIST Principal Problem: Acute respiratory failure with hypoxia and hypercapnia (HCC) Active Problems: Methamphetamine use Metabolic acidosis Agitation ASSESSMENT & PLAN ESRD ON HD No need for hd/uf today Assess daily for need for hd & uf Fluid restriction 1.2 litres/24 hours Strict I & O Daily RFP Renal diet Daily weights will help with subsequent hd with uf Dose all meds per protocol for ESRD on hd ANEMIA IN ESRD EPOGEN TO KEEP HGB 03-17 Lab Results Component Value Date HGB 8.7 (L) 03/26/2018 HGB 8.6 (L) 03/25/2018 HGB 8.2 (L) 03/24/2018 HYPERTENSION WATCH BP CLOSELY DURING HOSPITALIZATION LOW NA DIET Will adjust BP meds according to BP readings BP Readings from Last 3 Encounters: 03/26/18 157/80 01/14/17 160/85 HYPERPHOSPHATEMIA LOW P DIET RESUME PO4 BINDERS once get extubated Lab Results Component Value Date PHOS 2.7 03/26/2018 PHOS 3.5 03/25/2018 PHOS 2.8 03/24/2018 HYPOALBUMINEMIA INCREASE PROTEIN INTAKE Lab Results Component Value Date ALB 2.9 (L) 03/22/2018 ALB 2.8 (L) 01/13/2017 RESP Failure Per icu team CASE DISCUSSED IN DETAIL WITH PATIENT/ care team, ANSWERS ALL QUESTIONS IN DETAIL, VERBALIZ ES UNDERSTANDING TRNETON FARIA MD 03/26/2018 Sia Zheng Seen earlier and charting completed later Dictation software, [employer], used which may contain error for similar sounding words even af ter review. Personal communication requested for any clarification. onversion Transa ction, Provider Unknown - 03/26/2018 8:57 AM PDT Therapy Progress Note by Lazara Ventura PT at 03/26/18 0857 Author: Lazara T Lorenzo, PT Service: (none) Author Type: Physical Therapist Filed: 03/26/1802 Date of Service: 03/26/18856 Status: Signed Public Bath Attendant: Lazara Ventura PT (Physical Therapist) 03/26/1857 PT Last Visit PT Received On 03/26/18 Requires PT Follow Up On hold Other Comments Comments Chart reviewed with pt continued intubated/sedated and RN consulted requesting mob ility hold 2/2 ongoing agitation. Elda Nash NP - 03/26/2018 4:50 AM PDT Progress Notes by BLAYNE Blue at 03/26/18449 Author: BLAYNE Blue Service: Value Stream Coach Author Type: Advanced Registered Nurse Practitioner Filed: 03/26/18 0734 Date of Service: 03/26/18449 Status: Addendum Public Bath Attendant: BLAYNE Blue (Advanced Registered Nurse Practitioner) Related Notes: Original Note by BLAYNE Blue (Advanced Registered Nurse Prac titioner) filed at 03/26/18 0541 [facility] Value Stream Coach Service Progress Note Aurea Perez 37 y.o. 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 The patient was very uncooperative, an d required IV Versed immediately upon evaluation. Because of the severe respiratory distre ss and other clinical findings, the decision was made to intubate her; she was given etomida te and rocuronium and was then intubated. The patient had initially said that she had not received hemodialysis "for several months" according to the documentation at [facility]. The ED physician felt that it was more probable that she had used methamphetamine recently and that was what resulted in her acute pulmonary edema. Lab findings at [facility] were significant for serum CO211, WBC 16.3, BUN 65, creatin ine 5.26, lactic acid 7.8, and K of 3.3. ABG showed a pH of 7.08, pCO2 49.4, pO2 95, HCO3 14.4. A CXR showed pulmonary edema. After consulting with Dr. Sandoval, the recommended 3 amps of sodium bicarbonate were given, and the patient was then transferred to [facility] for further management. ICU Timeline: 03/22: Pt presented to [facility] ED in severe respiratory distress. Intubated; cristobal sferred to [facility] ICU. 03/23: Remained on MV, sedated on propofol and fentanyl; severe agitation during sedati hol. 03/24: Pt self-extubated at approximately 4:00 am. She became extremely agitated, viole nt, and verbally abusive. She was given 4 mg Versed, after which she required reintubation. 03/25: Remained on MV, sedated on versed and fentanyl; continues to be severely agitated when sedation is stopped. Events Overnight: Remained on MV, sedated on versed and fentanyl. SCHEDULED MEDICATIONS chlorhexidine gluconate 15 mL Mouth/Throat Q12H docusate sodium 100 mg Oral BID Or docusate 100 mg Per OG Tube BID famotidine 20 mg Oral Daily Or famotidine 20 mg Intravenous Daily heparin (porcine) 5000 unit/0.5mL 5,000 Units Subcutaneous 3 times per day CONTINUOUS INFUSIONS fentaNYL in NS 5 mcg/mL 100 mcg/hr (03/26/18 0336) midazolam in NS 10 mg/hr (03/25/18 9611) propofol Stopped (03/24/18 1256) OBJECTIVE VITAL SIGNS Temp: [97.8 F (36.6 C)-99.8 F (37.7 C)] 98.7 F (37.1 C) Heart Rate: [80-103] 83 Resp: [13-38] 14 BP: (142-224)/(70-105) 158/84 FiO2 : [21 %-25 %] 25 % Intake/Output Summary (Last 24 hours) at 03/26/18 3752 Last data filed at 03/25/181999 Gross per 24 hour Intake 1918 ml Output 2900 ml Net -982 ml EXAM GEN:sedated, mechanically ventilated NEURO:PERRL, no facial asymmetry, too deeply sedated to follow commands HEENT:sclerae clear, nonicteric, oral mmm, pink, ETT/OGT in place NECK: supple, trachea midline CV: RRR, S1/S2, systolic murmur best appreciated over the region of the aortic valve, no rub or gallop, peripheral pulses palpable, cap refill brisk LUNGS: loud rhonchi throughout, no wheezing or rales, symmetric chest expansion, even/unla bored respirations, on MV ABD:soft, flat,nondistended, nontender to palpation, bowel tones active EXTR: 2+ edema to BUE, no cyanosis or clubbing SKIN:warm, dry, no rash or mottling; no e/o skin breakdown over the occiput, scapulae, el bows, sacrum or heels LINES/TUBES:R chest hemodialysis catheter with clean, dry intact dressing; PIVs, right ar m AV fistula with palpable thrill, ETT/OGT (03/24) DATA Recent Labs Lab 03/26/18 0414 03/25/18 0420 03/24/18 0456 03/22/18 2151 WBC 6.68 7.81 6.46 < > 17.58* RBC 2.80* 2.80* 2.67* < > 3.37* HGB 8.7* 8.6* 8.2* < > 10.1* HCT 25.3* 25.2* 23.9* < > 29.7* MCV 90.4 89.9 89.6 < > 88.0 MCH 31.0 30.7 30.7 < > 30.0 MCHC 34.3 34.2 34.3 < > 34.1 RDW 53.4* 54.3* 52.1 < > 50.3 PLT 160 154 137* < > 199 MPV 8.9 9.7 9.4 < > 9.3 NEUTROABS 4.76 5.55 4.53 < > 15.06* LYMPHSABS 1.29 1.20 1.33 < > 1.35 MONOSABS 0.49 0.78 0.46 < > 1.06* BASOSABS 0.01 0.07 0.02 < > 0.08 EOSABS 0.14 0.20 0.13 < > 0.03 MORPH -- NORMAL PLT MORPH -- -- NORMAL PLT MORPH < > = values in this interval not displayed. Recent Labs Lab 03/26/18 0414 03/25/18 0420 03/24/18 0456 03/22/18 2151 NA 138 144 145 < > 139 K 3.4* 3.6 3.2* < > 2.9* CL 104 108 110* < > 105 CO2 27 23 26 < > 19* ANIONGAP 11 17 12 < > 17 GLUF 123* 94 101* < > 160* BUN 29* 43* 33* < > 71* CREATININE 3.8* 4.9* 3.8* < > 5.6* BCR 8 9 9 < > 13 CA 8.2* 7.3* 8.2* < > 8.0* ALB -- -- -- -- 2.9* GLOB -- -- -- -- 4.0 AG -- -- -- -- 0.7* PROT -- -- -- -- 6.9 BILITOT -- -- -- -- 0.6 ALT -- -- -- -- 26 AST -- -- -- -- 24 EGFR 13* 10* 13* < > 8* PHOS 2.7 3.5 2.8 < > 4.9* MG 2.3 2.4 2.1 < > 2.2 < > = values in this interval not displayed. No results for input(s): INR in the last 168 hours. IMAGING Xr Chest 1 View Result Date: 03/24/2018 1. Pulmonary opacities, right worse than left, slightly improved. 2. Small pleural effusion s. 3. Endotracheal tube, enteric tube, and dialysis catheter in place. RADIA Electronicall y signed by Glenn Morton MD on Mar 24 2018 5:37AM Referring Provider Line: [phone] ID: [id number] Xr Chest 1 View Result Date: 03/22/2018 1. Unchanged appearance of endotracheal tube. Consider retraction approximately 2 cm. 2. Unchanged right internal jugular approach dual-lumen dialysis catheter. 3. Newly seen enter ic tube. 4. Slightly improved bilateral airspace disease, potentially pulmonary edema, vers us less likely pneumonia. P M PROBLEM LIST Principal Problem: Acute respiratory failure with hypoxia and hypercapnia (HCC) Active Problems: Methamphetamine use Metabolic acidosis Agitation Resolved Problems: * No resolved hospital problems. * ASSESSMENT & PLAN NEURO: Extreme agitation/ anxiety on presentation and again after self-extubation on 03/24. C urrently sedated on versed and fentanyl. Continue sedation during mechanical ventilation. Plan for daily sedation holiday with coordinated spontaneous breathing trial. Will need t o have security and/or several staff members present for extubation in the event that patien t becomes violent again. Methamphetamine use. Urine drug screen positive for amphetamines, benzodiazepines, and THC at time of admission. Suspected acute intoxication with meth upon initial presentation to [facility]. CAM-ICU screening every shift. CV: Flash pulmonary edema. Resolved. Hx hypertension. Previously on Coreg, nifedipine, lisinopril, and Lasix, but it is unk nown if patient is compliant with her home medications. Hydralazine and labetalol PRN SBP > 160. PULM: Acute respiratory failure with hypoxia and hypercapnia. [facility]ub[facility], and reintubated after self-extubation on 03/24. Utilize lung protective ventilator strategy. Sedation holiday with spontaneous breathing trial and daily assessment of readiness to e xtubate. GI/NUTRITION: May give oral meds via OG tube. Tube feeding started; high residuals through the night requiring tube feeding to be paus ed intermittently. RENAL/LYTES: ESRD, on hemodialysis, secondary to TTP/HUS and hypertensive nephrosclerosis. Nephrology is following. Hemodialysis was last done on 03/25 with 2 L of fluid taken of f. Renally dose medications, avoid nephrotoxins. Monitor electrolytes and replace cautiously if needed. Monitor Is/Os. BMP daily. ID: Currently afebrile without leukocytosis. HEME: Normocytic anemia. H & H stable. No thrombocytopenia. CBC daily. ENDO: No hx of diabetes. Implement Endotool if indicated per ICU protocol. MUSC/SKIN: PT/OT/mobilize patient when able. Skin care and pressure ulcer prevention per nursing standards. PROPHYLAXIS: Stress ulcer prophylaxis: famotidine DVT prophylaxis: heparin SQ VAP bundle: chlorhexidine oral care, HOB > 30 degrees Disposition: ICU plan of care as above. Code Status: Full Code *Please bill 35 minutes of critical care time spent evaluating the patient, reviewing the d amber and formulating a plan exclusive of all other procedures. BLAYNE Vera 03/26/2018 onversion Cristobal saction, Provider Unknown - 03/25/2018 2:02 PM PDTFormatting of this note might be differen t from the original. Therapy Progress Note by Emanuel Stringer PT at 03/25/18 1402 Author: Emanuel Stringer PT Service: (none) Author Type: Physical Therapist Filed: 03/25/18 7685 Date of Service: 03/25/18 140 Status: Signed Public Bath Attendant: Emanuel Stringer PT (Physical Therapist) 03/25/18 1402 PT Last Visit PT Received On 03/25/18 (see NSG progress note) Requires PT Follow Up On hold onver chaz Transaction, Provider Unknown - 03/25/2018 1:09 PM PDT Nurse Progress Note by Katie Funes RN at 03/25/18 9491 Author: Katie Funes RN Service: (none) Author Type: Registered Nurse Filed: 03/25/18 2535 Date of Service: 03/25/18 5351 Status: Signed Public Bath Attendant: Katie Funes RN (Registered Nurse) Pts sister Gricel here. Pts sister states this is not the first time pt has been intubated /sedated for methamphetamines/behavior. Sister states when she had her last child (4 years a go) she was + methamphetamines (baby also) and required intubation/sedation d/t behavior. Pt s sister states that pt was finally able to be extubated after "a few days" once she was avi shira and able to cooperate w/ care. Pts baby born at 25 weeks and is now being raised by her mother along w/ 3 other children. Pt has a total of 5 children (1 lives with the father). Pts sister states "almost all the family has washed their hands of her because of this. I ca me because my mom asked me to come check and see how bad it was this time." Pts sister darrell gonzalez upset seeing her sister like this and emotional support provided to her at this time.Th is nurse to bedside to tell pt that her sister was here to visit. Pt became immediately agit ated/restless/thrashing/kicking about in bed until pt had restraints partially loosened. Pt trying to talk and appeared to be very angry. While attempting to educate and encourage pt to calm down so that she could be extubated pt started trying to spit around her ETT and was trying to bend head to knees in an attempt to get her ETT out. RT in room and was able to help keep ETT in place while pt was thrashing her head about. This nurse retightened the re straints while explaining to pt that the ETT would not come out if she could not stay calm a nd relaxed. Pt required boluses of Fentanyl and an increase in Versed before pt would calm. Pt still able to follow commands and shake head yes/no to questions/appropriately. Sister a ssured pt that she would not leave at this time and would be here with her but she needed to calm down and relax. Pt shook her head yes and then fell asleep. Dr. Jones notified of behavior and information received from pts sister. Per Dr. Jones we will not attempt t o extubate on this shift and reevaluate later. Will continue to use Versed as needed. Pt alr lis at max dose of Fentanyl and in 4 point restraints. See MAR. Will continue to monitor. Sister remains at bedside. Discussed w/ sister possibility of pt going to a rehab. Pts siste r states she has never been to a rehab and she would like to see if that is a possibility. Will notify Verla, social work of request. Trenton Burch MD - 03/25/2018 10:57 AM PDTFormatting of this note might be different from nadja e original. Progress Notes by Trenton Faria MD at 03/25/18 4331 Author: Trenton Faria MD Service: Nephrology Author Type: Physician Filed: 03/25/18 9377 Date of Service: 03/25/18 0648 Status: Signed Public Bath Attendant: Trenton Faria MD (Physician) [facility] Service: NEPHROLOGY Dialysis Note Aurea Perez 37 y.o. [id number] female [facility] Day: LOS: 3 days 37-year-old female with past medical history significant for end-stage renal disease on hem odialysis 3 times a week secondary to TTP/HUS, hypertension, methamphetamine usage initially presented to [facility] in [place] due to worsening shortness of breath/ re spiratory failure requiring intubation/ Meth use urine screen +ve. Nephrology consulted for evaluation and management of ESRD ONSET Chronic severity severe Associated with fluid electrolyte acid base imbalances Assess need for hd/uf Seen and examined on hd with hd rn desean tolerating hd/ uf well Access functioning well HD FLOW SHEET REVIEWED Remains intubated on ventilator Review of Systems Cannot assess given patient intubated on ventilator no family members present Past Medical History Diagnosis Date Preeclampsia Past Surgical History Procedure Laterality Date SECTION Prescriptions Prior to Admission Medication Sig Dispense Refill Last Dose acetaminophen (TYLENOL) 325 MG tablet Take 325-650 mg by mouth every 6 (six) hours as n eeded. B Bgafqpb-B-Cyxdq Acid (RENAL-KIT) 0.8 MG TABS Take 1 tablet by mouth daily. cholecalciferol (VITAMIN D-3) 1000 units tablet Take 1,000 Units by mouth daily. eculizumab (SOLIRIS) 300 MG/30ML injection Inject 1,200 mg into the vein every 30 (thir ty) days. furosemide (LASIX) 40 MG tablet Take 80 mg by mouth daily. lisinopril (ZESTRIL) 20 MG tablet Take 20 mg by mouth daily. NIFEdipine (PROCARDIA XL) 60 MG 24 hr tablet Take 60 mg by mouth daily. oxyCODONE (ROXICODONE) 5 MG immediate release tablet Take 5-10 mg by mouth every 6 (six ) hours as needed. sucroferric oxyhydroxide (VELPHORO) 500 MG chewable tablet Take 500 mg by mouth 3 (thre e) times daily with meals. carvedilol (COREG) 6.25 MG tablet Take 6.25 mg by mouth 2 (two) times daily. diphenhydrAMINE (BENADRYL) 25 MG tablet Take 25 mg by mouth nightly as needed. fnbkohviktdfrnm-tyqykxtcwnsrhq-mxrnwzhh (DUKES MOUTHWASH) suspension Swish and spit 10 mLs every 6 (six) hours as needed for Sore Throat. 240 mL 0 epoetin ant (PROCRIT) 54891 UNIT/ML injection Inject 8,000 Units into the [...] day and then stop 10 tablet 0 Allergies Allergen Reactions Codeine Anaphylaxis Dilaudid is ok. No reaction there. Percocet is ok Imitrex [Sumatriptan] Anaphylaxis History reviewed. No pertinent family history. Cannot assess given patient intubated on ventilator no family members present Social History Social History Marital status: Spouse [...] Social History Narrative No narrative on file Cannot assess given patient intubated on ventilator no family members present What ever was obtained from the records Scheduled Medications chlorhexidine gluconate 15 mL Mouth/Throat Q12H docusate sodium 100 mg Oral BID Or docusate 100 mg Per OG Tube BID famotidine 20 mg Oral Daily Or famotidine 20 mg Intravenous Daily heparin (porcine) 5000 unit/0.5mL 5,000 Units Subcutaneous 3 times per day Continuous Infusions fentaNYL in NS 5 mcg/mL 100 mcg/hr (03/25/18 1414) midazolam in NS 9 mg/hr (03/25/18 1306) propofol Stopped (03/24/18 1256) PRN Medications acetaminophen OR acetaminophen, albumin human, albumin human, heparin flush (PF), hydrA LAZINE OR hydrALAZINE, labetalol OR labetalol, midazolam, nystatin, ondansetron OR ondansetron, pancrelipase (Qlp-Nkyy-Plzi)12,000 units, petrolatum, sodium bicarbonate Allergy: Allergies Allergen Reactions Codeine Anaphylaxis Dilaudid is ok. No reaction there. Percocet is ok Imitrex [Sumatriptan] Anaphylaxis OBJECTIVE Vital Signs: BP 147/81 | Pulse 82 | Temp 98.4 F (36.9 C) (Oral) | Resp 14 | Ht 1.676 m (5' 6") | Wt 52.9 kg (116 lb 10 oz) | SpO2 98% | ? Unknown | BMI 18.82 kg/m I&O Detailed Table: I/O last 3 completed shifts: In: 1729.6 [I.V.:1121.6; NG/GT:608] Out: 0 Weight change: -4.9 kg (-10 lb 12.8 oz) Examination: Seen on hemodialysis with hemodialysis nurse Desean APPEARANCE: The patient is lying in no apparent distress intubated on ventilator, sedated. VITALS: Reviewed as listed. HEAD: NC/AT. ENT: +ve ETT LUNGS: COARSE BS on auscultation bilaterally. HEART: S1, S2, no pericardial rub noted. ABDOMEN: Full, soft, no tenderness. EXTREMITIES: no pedal edema noted. NEUROLOGIC: cannot assess intubated on ventilator PSYCH: cannot assess intubated on ventilator R ARM AVF functioning ok using 1 needle R IJ TUNNELED HD CATHETER IN PLACE using 1 port to return blood LABS: Recent Results (from the past 24 hour(s)) POCT glucose Collection Time: 03/24/18 9:45 PM Result Value Ref Range GLUCOSE,POC SCREEN 120 (H) 65 - 99 mg/dL Basic metabolic panel Collection Time: 03/25/18 4:20 AM Result Value Ref Range SODIUM 144 135 - 145 mmol/L POTASSIUM 3.6 3.5 - 4.9 mmol/L CHLORIDE 108 99 - 109 mmol/L CO2 23 23 - 32 mmol/L ANION GAP AGAP 17 5 - 20 mmol/L GLUCOSE 94 65 - 99 mg/dL BUN 43 (H) 8 - 25 mg/dL CREATININE 4.9 (H) 0.50 - 1.00 mg/dL BUN/CREAT 9 CALCIUM 7.3 (L) 8.5 - 10.5 mg/dL EGFR 10 (L) >60 mL/min/1.73m2 CBC w/auto diff (reflex to manual) Collection Time: 03/25/18 4:20 AM Result Value Ref Range WBC 7.81 3.80 - 11.00 K/uL RBC 2.80 (L) 3.70 - 5.10 M/uL HGB 8.6 (L) 11.3 - 15.5 g/dL HCT 25.2 (L) 34.0 - 46.0 % MCV 89.9 80.0 - 100.0 fl MCH 30.7 27.0 - 34.0 pg MCHC 34.2 32.0 - 35.5 g/dL RDW SD 54.3 (H) 37 - 53 fl PLT 154 150 - 400 K/uL MPV 9.7 fl DIFF TYPE AUTOMATED NEUTROPHILS 71.16 % LYMPHOCYTES 15.42 % MONOCYTES 9.99 % EOSINOPHILS 2.52 % BASOPHILS 0.91 % NEUTROPHILS ABS 5.55 1.90 - 7.40 K/uL LYMPHOCYTES ABS 1.20 1.00 - 3.90 K/uL MONOCYTES ABS 0.78 0.00 - 0.80 K/uL EOSINOPHILS ABS 0.20 0.00 - 0.50 K/uL BASOPHILS ABS 0.07 0.00 - 0.10 K/uL MORPHOLOGY NORMAL PLT MORPH Diff Comment SLIDE SCANNED, AGREES WITH AUTOMATED RESULTS. Magnesium Collection Time: 03/25/18 4:20 AM Result Value Ref Range MAGNESIUM 2.4 1.7 - 2.4 mg/dL Phosphorus Collection Time: 03/25/18 4:20 AM Result Value Ref Range PHOSPHORUS 3.5 2.3 - 4.8 mg/dL IMAGING: Xr Chest 1 View Result Date: 03/24/2018 EXAM: CHEST RADIOGRAPHY EXAM DATE: 03/24/2018 05:18 AM. CLINICAL HISTORY: Tube/line positi on. COMPARISON: XR CHEST 1 VIEW 03/22/2018 10:06 PM. TECHNIQUE: 1 view. FINDINGS: Lungs/Pl eura: Bilateral pulmonary opacities, right worse than left, perhaps slightly improved compar ed with the prior exam. Small pleural effusions. Costophrenic angles are not completely incl uded. No pneumothorax identified. Mediastinum: Within exam limitations, the cardiomediastin al contour is normal. Other: Endotracheal tube is in place with the tip 4.2 cm above the ca miguelina. Enteric tube tip is in the stomach. Right-sided dialysis catheter at the cavoatrial ju nction. 1. Pulmonary opacities, right worse than left, slightly improved. 2. Small pleural effusion s. 3. Endotracheal tube, enteric tube, and dialysis catheter in place. CINDY deleon signed by Glenn Morton MD on Mar 24 2018 5:37AM Referring Provider Line: [phone] ID: [id number] Xr Chest 1 View Result Date: 03/22/2018 AUREA PEREZ XR CHEST 1 VIEW 03/22/2018 10:06 PM HISTORY: Acute respiratory failure, status post intubation. TECHNIQUE: AP chest radiograph 2203 hours. COMPARISON: Chest radiog raph March 18, 2018. FINDINGS: An endotracheal tube is again noted with the tip approximat rajinder 18 mm from the hasmukh, relatively unchanged. A right subclavian approach central dual-hiren men dialysis catheter is again seen with the tip overlying the right ventricle. An enteric t ube is newly noted, coursing through the stomach and off the image inferiorly. Bilateral air space opacities are again noted and emanate from the bilateral parahilar regions, slightly i mproved compared to the previous study. No pneumothorax is seen. Mild blunting of the costop hrenic angles is noted. 1. Unchanged appearance of endotracheal tube. Consider retraction approximately 2 cm. 2. Unchanged right internal jugular approach dual-lumen dialysis catheter. 3. Newly seen enter ic tube. 4. Slightly improved bilateral airspace disease, potentially pulmonary edema, vers us less likely pneumonia. P M X-ray Chest 1 View Result Date: 03/22/2018 This is a non-reportable procedure without a radiologist report and is used for image [employer] only Patient's old records, imaging and labs were reviewed in detail and summarized. PROBLEM LIST Principal Problem: Acute respiratory failure with hypoxia and hypercapnia (HCC) Active Problems: Methamphetamine use Metabolic acidosis Agitation ASSESSMENT & PLAN ESRD ON HD Seen and examined on hd tolerating hd/ uf well Access functioning well HD FLOW SHEET REVIEWED Assess daily for need for hd & uf Orders in the chart Fluid restriction 1.2 litres/24 hours Strict I & O Daily RFP Renal diet Daily weights will help with subsequent hd with uf Dose all meds per protocol for ESRD on hd Acute pulmonary edema improved Likely flash pulmonary edema due to methamphetamine usage possibly Control blood pressure Currently intubated on ventilator stable ANEMIA IN ESRD EPOGEN TO KEEP HGB 10-11 Lab Results Component Value Date HGB 8.6 (L) 03/25/2018 HGB 8.2 (L) 03/24/2018 HGB 9.1 (L) 03/23/2018 HYPERTENSION WATCH BP CLOSELY DURING HOSPITALIZATION LOW NA DIET Will adjust BP meds according to BP readings BP Readings from Last 3 Encounters: 03/25/18 147/81 01/14/17 160/85 HYPERPHOSPHATEMIA LOW P DIET RESUME PO4 BINDERS once get extubated Lab Results Component Value Date PHOS 3.5 03/25/2018 PHOS 2.8 03/24/2018 PHOS 4.8 03/23/2018 HYPOALBUMINEMIA INCREASE PROTEIN INTAKE Lab Results Component Value Date ALB 2.9 (L) 03/22/2018 ALB 2.8 (L) 01/13/2017 CASE DISCUSSED IN DETAIL WITH PATIENT/ care team, ANSWERS ALL QUESTIONS IN DETAIL, VERBALIZ ES UNDERSTANDING TRENTON FARIA MD 03/25/2018 Sia Zheng Seen earlier and charting completed later Dictation software, [employer], used which may contain error for similar sounding words even af ter review. Personal communication requested for any clarification. onversion Transa ction, Provider Unknown - 03/25/2018 10:05 AM PDT Case Management by DAHIANA Cerrato at 03/25/18 1005 Author: DAHIANA Cerrato Service: (none) Author Type: Pourer Filed: 03/25/18 1007 Date of Service: 03/25/18 1005 Status: Signed Public Bath Attendant: DAHIANA Cerrato (Pourer) Attended morning rounds. Remains vented. Referral emailed to Yenny Doran, Behavioral [facility] Specialist to discuss drug use and resources. onver chaz Transaction, Provider Unknown - 03/25/2018 5:23 AM PDT Nurse Progress Note by Dianelys Garcia RN at 03/25/18522 Author: Dianelys Garcia RN Service: (none) Author Type: Registered Nurse Filed: 03/25/1835 Date of Service: 03/25/18522 Status: Addendum Public Bath Attendant: Dianelys Garcia RN (Registered Nurse) Related Notes: Original Note by Dianelys Garcia RN (Registered Nurse) filed at 8 1400 Discussion in rounds with Dr. Benítez and BLAYNE Owens, regarding plan for extubation w hen appropriate. Plan to have security and additional staff present at bedside due to patien ts previous violent behaviors. Dianelys Garcia RN IEllis, Elda Gunderson NP - 03/25/2018 4:45 AM PDT Progress Notes by BLAYNE Blue at 03/25/18444 Author: BLAYNE Blue Service: Value Stream Coach Author Type: Advanced Registered Nurse Practitioner Filed: 03/25/18619 Date of Service: 03/25/18444 Status: Signed Public Bath Attendant: BLAYNE Blue (Advanced Registered Nurse Practitioner) [facility] Value Stream Coach Service Progress Note Aurea Perez 37 y.o. Hospital Day: LOS: 3 days Post-Op Day: * No surgery found * Consulting Physicians Treatment Team: Consulting Physician: Trenton Faria MD Admitting Provider: Gee Sandoval MD SUBJECTIVE Patient Summary: From my own H & P on 03/22/18: The patient is a 37 y.o.femalewith significant past medical history of ESRD (secondary to TTP/HUS) on HD, HTN, methamphetamine use, and peritonsillar abscess,who pre sents withsevere shortness of breath and anxiety. The patient was very uncooperative, an d required IV Versed immediately upon evaluation. Because of the severe respiratory distre ss and other clinical findings, the decision was made to intubate her; she was given etomida te and rocuronium and was then intubated. The patient had initially said that she had not received hemodialysis "for several months" according to the documentation at [facility]. The ED physician felt that it was more probable that she had used methamphetamine recently and that was what resulted in her acute pulmonary edema. Lab findings at [facility] were significant for serum CO211, WBC 16.3, BUN 65, creatin ine 5.26, lactic acid 7.8, and K of 3.3. ABG showed a pH of 7.08, pCO2 49.4, pO2 95, HCO3 14.4. A CXR showed pulmonary edema. After consulting with Dr. Sandoval, the recommended 3 amps of sodium bicarbonate were given, and the patient was then transferred to [facility] for further management. ICU Timeline: 03/22: Pt presented to [facility] ED in severe respiratory distress. Intubated; cristobal sferred to [facility] ICU. 03/23: Remained on MV, sedated on propofol and fentanyl; severe agitation during sedatio n holiday. 03/24: Pt self-extubated at approximately 4:00 am. She became extremely agitated, viole nt, and verbally abusive. She was given 4 mg Versed, after which she required reintubation. Events Overnight: Remained on MV, sedated on versed and fentanyl. SCHEDULED MEDICATIONS chlorhexidine gluconate 15 mL Mouth/Throat Q12H docusate sodium 100 mg Oral BID Or docusate 100 mg Per OG Tube BID famotidine 20 mg Oral Daily Or famotidine 20 mg Intravenous Daily heparin (porcine) 5000 unit/0.5mL 5,000 Units Subcutaneous 3 times per day CONTINUOUS INFUSIONS fentaNYL in NS 5 mcg/mL 0 mcg/hr (03/24/182012) midazolam in NS 0 mg/hr (03/24/182049) propofol Stopped (03/24/18 125) OBJECTIVE VITAL SIGNS Temp: [97.8 F (36.6 C)-99.2 F (37.3 C)] 99.2 F (37.3 C) Heart Rate: [63-96] 93 Resp: [9-143] 15 BP: (122-181)/(58-92) 160/92 FiO2 : [25 %-30 %] 25 % Intake/Output Summary (Last 24 hours) at 03/25/18 0518 Last data filed at 03/25/18 0500 Gross per 24 hour Intake 1729.6 ml Output 0 ml Net 1729.6 ml EXAM GEN:sedated, mechanically ventilated, intermittently agitated NEURO:PERRL, no facial asymmetry, follows some commands, able to nod head to yes/ no ques tions HEENT:sclerae clear, nonicteric, oral mmm, pink, ETT/OGT in place NECK: supple, trachea midline CV: RRR, S1/S2, systolic murmur best appreciated over the region of the aortic valve, no rub or gallop, peripheral pulses palpable, cap refill brisk LUNGS: Coarse lung sounds which cleared with suctioning via ETT, no wheezing or rales, sym metric chest expansion, even/unlabored respirations, on MV ABD:soft, flat,nondistended, nontender to palpation, bowel tones hypoactive EXTR:no edema, cyanosis, or clubbing SKIN:warm, dry, no rash or mottling; no e/o skin breakdown over the occiput, scapulae, el bows, sacrum or heels LINES/TUBES:R chest hemodialysis catheter, PIVs, right arm AV fistula with palpable thril l, ETT/OGT (03/24) DATA Recent Labs Lab 03/25/18 0420 03/24/18 0456 03/23/18 0226 03/22/18 2151 WBC 7.81 6.46 11.12* 17.58* RBC 2.80* 2.67* 3.06* 3.37* HGB 8.6* 8.2* 9.1* 10.1* HCT 25.2* 23.9* 27.4* 29.7* MCV 89.9 89.6 89.3 88.0 MCH 30.7 30.7 29.6 30.0 MCHC 34.2 34.3 33.1 34.1 RDW 54.3* 52.1 51.2 50.3 PLT 154 137* 169 199 MPV 9.7 9.4 9.5 9.3 NEUTROABS 5.55 4.53 8.59* 15.06* LYMPHSABS 1.20 1.33 1.74 1.35 MONOSABS 0.78 0.46 0.70 1.06* BASOSABS 0.07 0.02 0.05 0.08 EOSABS 0.20 0.13 0.04 0.03 MORPH NORMAL PLT MORPH -- -- NORMAL PLT MORPH Recent Labs Lab 03/25/18 0420 03/24/18 0456 03/23/18 0226 03/22/18 2151 NA 144 145 141 139 K 3.6 3.2* 3.5 2.9* CL 108 110* 108 105 CO2 23 26 20* 19* ANIONGAP 17 12 16 17 GLUF 94 101* 107* 160* BUN 43* 33* 73* 71* CREATININE 4.9* 3.8* 5.7* 5.6* BCR 9 9 13 13 CA 7.3* 8.2* 7.8* 8.0* ALB -- -- -- 2.9* GLOB -- -- -- 4.0 AG -- -- -- 0.7* PROT -- -- -- 6.9 BILITOT -- -- -- 0.6 ALT -- -- -- 26 AST -- -- -- 24 EGFR 10* 13* 8* 8* PHOS 3.5 2.8 4.8 4.9* MG 2.4 2.1 2.1 2.2 No results for input(s): INR in the last 168 hours. IMAGING Xr Chest 1 View Result Date: 03/24/2018 1. Pulmonary opacities, right worse than left, slightly improved. 2. Small pleural effusion s. 3. Endotracheal tube, enteric tube, and dialysis catheter in place. RADIA Electronicall y signed by Glenn Morton MD on Mar 24 2018 5:37AM Referring Provider Line: [phone] ID: [id number] Xr Chest 1 View Result Date: 03/22/2018 1. Unchanged appearance of endotracheal tube. Consider retraction approximately 2 cm. 2. Unchanged right internal jugular approach dual-lumen dialysis catheter. 3. Newly seen enter ic tube. 4. Slightly improved bilateral airspace disease, potentially pulmonary edema, vers us less likely pneumonia. P M PROBLEM LIST Principal Problem: Acute respiratory failure with hypoxia and hypercapnia (HCC) Active Problems: Methamphetamine use Metabolic acidosis Agitation Resolved Problems: * No resolved hospital problems. * ASSESSMENT & PLAN NEURO: Extreme agitation/ anxiety on presentation and again after self-extubation on 03/24. C urrently sedated on versed and fentanyl. Continue sedation during mechanical ventilation. Plan for daily sedation holiday with coordinated spontaneous breathing trial. Will need t o have security and/or several staff members present for extubation in the event that patien t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 midline CV: tachycardic, RRR, S1/S2, murmur present, no rub or gallop, peripheral pulses palpable, cap refill brisk, but bilateral hands appear dusky LUNGS: loud rhonchi throughout b/l, no wheezing or rales, symmetric chest expansion, even/u nlabored respirations, foul-smelling secretions from ETT ABD: soft, flat, nondistended, nontender to palpation, bowel tones hypoactive EXTR: no edema or clubbing; hands dusky SKIN: warm, dry, no rash or mottling; no e/o skin breakdown over the occiput, scapulae, elb ows, sacrum or heels LINES/TUBES: R chest hemodialysis catheter, PIVs, right arm AV fistula, ETT/OGT (03/24) DATA Recent Labs Lab 03/24/18 0456 03/23/18 0226 03/22/18 2151 WBC 6.46 11.12* 17.58* RBC 2.67* 3.06* 3.37* HGB 8.2* 9.1* 10.1* HCT 23.9* 27.4* 29.7* MCV 89.6 89.3 88.0 MCH 30.7 29.6 30.0 MCHC 34.3 33.1 34.1 RDW 52.1 51.2 50.3 PLT 137* 169 199 MPV 9.4 9.5 9.3 NEUTROABS 4.53 8.59* 15.06* LYMPHSABS 1.33 1.74 1.35 MONOSABS 0.46 0.70 1.06* BASOSABS 0.02 0.05 0.08 EOSABS 0.13 0.04 0.03 MORPH -- -- NORMAL PLT MORPH Recent Labs Lab 03/24/18 0456 03/23/18 0226 03/22/18 2151 NA 145 141 139 K 3.2* 3.5 2.9* CL 110* 108 105 CO2 26 20* 19* ANIONGAP 12 16 17 GLUF 101* 107* 160* BUN 33* 73* 71* CREATININE 3.8* 5.7* 5.6* BCR 9 13 13 CA 8.2* 7.8* 8.0* ALB -- -- 2.9* GLOB -- -- 4.0 AG -- -- 0.7* PROT -- -- 6.9 BILITOT -- -- 0.6 ALT -- -- 26 AST -- -- 24 EGFR 13* 8* 8* PHOS 2.8 4.8 4.9* MG 2.1 2.1 2.2 No results for input(s): INR in the last 168 hours. IMAGING Xr Chest 1 View Result Date: 03/22/2018 1. Unchanged appearance of endotracheal tube. Consider retraction approximately 2 cm. 2. Unchanged right internal jugular approach dual-lumen dialysis catheter. 3. Newly seen enter ic tube. 4. Slightly improved bilateral airspace disease, potentially pulmonary edema, vers us less likely pneumonia. P M PROBLEM LIST Principal Problem: Acute respiratory failure with hypoxia and hypercapnia (HCC) Active Problems: Methamphetamine use Metabolic acidosis Resolved Problems: * No resolved hospital problems. * ASSESSMENT & PLAN NEURO: Extreme agitation/ anxiety on presentation and again after she self-extubated this coleenni ng. Currently sedated on propofol, Precedex, and fentanyl. Continue sedation during mechan ical ventilation. Plan for daily sedation holiday with coordinated spontaneous breathing tr ial. Hx methamphetamine use. Urine drug screen positive for amphetamines, benzodiazepines, a nd THC. Suspected acute intoxication with meth upon initial presentation. CAM-ICU screening every shift. CV: Flash pulmonary edema. Resolved. Hx hypertension. Previously on Coreg, nifedipine, lisinopril, and Lasix, but it is unkn own if patient is compliant with her home medications. Will use prn hydralazine and labetal ol for SBP > 160. PULM: Acute respiratory failure with hypoxia and hypercapnia. Intubated at [facility], and reintubated after self-extubation. Utilize lung protective ventilator strategy. Daily sedation holiday with spontaneous breathing trial. GI/NUTRITION: May give oral meds via OG tube. RENAL/LYTES: ESRD, on hemodialysis, secondary to TTP/HUS and hypertensive nephrosclerosis. Nephrology is following. Hemodialysis was done on 03/23 with 1 L fluid taken off. Renally dose medications, avoid nephrotoxins. Monitor electrolytes and replace cautiously if needed. Monitor Is/Os. BMP daily. ID: Currently afebrile without leukocytosis. HEME: Normocytic anemia. No thrombocytopenia. CBC daily. ENDO: No hx of diabetes. Implement Endotool if indicated per ICU protocol. MUSC/SKIN: PT/OT/mobilize patient as able. Skin care and pressure ulcer prevention per nursing standards. PROPHYLAXIS: Stress ulcer prophylaxis: famotidine DVT prophylaxis: heparin SQ VAP bundle: chlorhexidine oral care, HOB >30 degrees Disposition: ICU plan of care as above. Code Status: Full Code *Please bill 30 minutes of critical care time spent evaluating the patient, reviewing the d amber and formulating a plan exclusive of all other procedures. BLAYNE Vera 03/24/2018 Trenton Burch MD - 03/23/2018 8:04 PM PDTFormatting of this note might be different from the margarita vazquez. Progress Notes by Trenton Faria MD at 03/23/182003 Author: Trenton Faria MD Service: Nephrology Author Type: Physician Filed: 03/30/18 9274 Date of Service: 03/23/182003 Status: Signed Public Bath Attendant: Trenton Faria MD (Physician) [facility] Service: NEPHROLOGY Progress Note Aurea Perez 37 y.o. [id number] female [facility] Day: LOS: 1 day 37-year-old female with past medical history significant for end-stage renal disease on hem odialysis 3 times a week secondary to TTP/HUS, hypertension, methamphetamine usage initially presented to [facility] in [place] admitted with resp failure requiring int ubation transferred to [facility] ICU for further evaluation and management. Per the record seem s like patient had used methamphetamine recently. Nephrology consulted for evaluation and management of ESRD ONSET Chronic severity severe Associated with fluid electrolyte acid base imbalances Assess need for hd/uf seen and examined Remains intubated on ventilator/ sedated Review of Systems Cannot assess given patient intubated on ventilator Past Medical History Diagnosis Date Preeclampsia Past Surgical History Procedure Laterality Date SECTION Prescriptions Prior to Admission Medication Sig Dispense Refill Last Dose acetaminophen (TYLENOL) 325 MG tablet Take 325-650 mg by mouth every 6 (six) hours as n eeded. B Mnjkrck-A-Cjusb Acid (RENAL-KIT) 0.8 MG TABS Take 1 tablet by mouth daily. cholecalciferol (VITAMIN D-3) 1000 units tablet Take 1,000 Units by mouth daily. eculizumab (SOLIRIS) 300 MG/30ML injection Inject 1,200 mg into the vein every 30 (thir ty) days. furosemide (LASIX) 40 MG tablet Take 80 mg by mouth daily. lisinopril (ZESTRIL) 20 MG tablet Take 20 mg by mouth daily. NIFEdipine (PROCARDIA XL) 60 MG 24 hr tablet Take 60 mg by mouth daily. oxyCODONE (ROXICODONE) 5 MG immediate release tablet Take 5-10 mg by mouth every 6 (six ) hours as needed. sucroferric oxyhydroxide (VELPHORO) 500 MG chewable tablet Take 500 mg by mouth 3 (thre e) times daily with meals. carvedilol (COREG) 6.25 MG tablet Take 6.25 mg by mouth 2 (two) times daily. diphenhydrAMINE (BENADRYL) 25 MG tablet Take 25 mg by mouth nightly as needed. itwvjomgycfpglr-tbwcbzuchdfbhn-lfayjjsh (DUKES MOUTHWASH) suspension Swish and spit 10 mLs every 6 (six) hours as needed for Sore Throat. 240 mL 0 epoetin ant (PROCRIT) 25140 UNIT/ML injection Inject 8,000 Units into the [...] day and then stop 10 tablet 0 Allergies Allergen Reactions Codeine Anaphylaxis Dilaudid is ok. No reaction there. Percocet is ok Imitrex [Sumatriptan] Anaphylaxis History reviewed. No pertinent family history. Social History Social History Marital status: Spouse [...] Narrative No narrative on file Scheduled Medications chlorhexidine gluconate 15 mL Mouth/Throat Q12H docusate sodium 100 mg Oral BID Or docusate 100 mg Per OG Tube BID famotidine 20 mg Oral Daily Or famotidine 20 mg Intravenous Daily heparin (porcine) 5000 unit/0.5mL 5,000 Units Subcutaneous 3 times per day Continuous Infusions fentaNYL in NS 5 mcg/mL 12.5 mcg/hr (03/23/18 1549) propofol 55 mcg/kg/min (03/23/18 1555) PRN Medications acetaminophen OR acetaminophen, albumin human, heparin flush (PF), hydrALAZINE OR h ydrALAZINE, labetalol OR labetalol, midazolam, nystatin, ondansetron OR ondansetron, petrolatum Allergy: Allergies Allergen Reactions Codeine Anaphylaxis Dilaudid is ok. No reaction there. Percocet is ok Imitrex [Sumatriptan] Anaphylaxis OBJECTIVE Vital Signs: BP 135/87 | Pulse 86 | Temp 97.6 F (36.4 C) (Oral) | Resp 14 | Ht 1.676 m (5' 6") | Wt 54.9 kg (121 lb 0.5 oz) | SpO2 98% | ? Unknown | BMI 19.54 kg/m I&O Detailed Table: I/O last 3 completed shifts: In: 1450 [I.V.:650; Other:800] Out: 1965 [Urine:140; Emesis/NG output:25; Other:1800] Weight change: Examination: APPEARANCE: The patient is lying in no apparent distress intubated and sedated VITALS: Reviewed as listed. HEENT: NC/AT. +ve ETT LUNGS: Scattered rhonchi on auscultation bilaterally. HEART: S1, S2, no pericardial rub noted. ABDOMEN: Full, soft, no tenderness. EXTREMITIES: no pedal edema noted. NEUROLOGIC: cannot assess intubated on ventilator PSYCH: cannot assess intubated on ventilator BACK: cannot assess intubated on ventilator R IJ HD CATHETER IN PLACE R arm avf +ve thrill/ bruit LABS: Recent Results (from the past 24 hour(s)) POCT glucose Collection Time: 03/22/18 8:09 PM Result Value Ref Range GLUCOSE,POC SCREEN 164 (H) 65 - 99 mg/dL MRSA by PCR Collection Time: 03/22/18 8:40 PM Result Value Ref Range SOURCE NARES(NOSE) MRSA PCR POSITIVE for MRSA by PCR (A) NEGATIVE POC Arterial Blood Gas Collection Time: 03/22/18 8:45 PM Result Value Ref Range POC FIO2 40 % pH, Art 7.404 7.350 - 7.450 POC PCO2 34 (L) 35 - 45 mmHg POC p02 105 80 - 105 mmHg POC HCO3 21 (L) 22 - 26 mmol/L POC TCO2 22 (L) 23 - 27 mEq/L POC BASE DEFICIT 4 (H) 0.0 - 2.0 mmol/L POC S02 98 95 - 98 % Sputum culture Collection Time: 03/22/18 9:40 PM Result Value Ref Range Specimen Description TRACHEAL ASPIRATE GRAM STAIN GREATER THAN 10 WBCS/LPF GRAM STAIN LESS THAN 10 SEC/LPF GRAM STAIN 3+ GRAM STAIN GRAM POSITIVE COCCI CULTURE CULTURE IN PROGRESS Comprehensive metabolic panel Collection Time: 03/22/18 9:51 PM Result Value Ref Range SODIUM 139 135 - 145 mmol/L POTASSIUM 2.9 (L) 3.5 - 4.9 mmol/L CHLORIDE 105 99 - 109 mmol/L CO2 19 (L) 23 - 32 mmol/L ANION GAP AGAP 17 5 - 20 mmol/L GLUCOSE 160 (H) 65 - 99 mg/dL BUN 71 (H) 8 - 25 mg/dL CREATININE 5.6 (H) 0.50 - 1.00 mg/dL BUN/CREAT 13 CALCIUM 8.0 (L) 8.5 - 10.5 mg/dL TOTAL PROTEIN 6.9 6.3 - 8.2 g/dL Albumin 2.9 (L) 3.6 - 5.0 g/dL GLOBULIN 4.0 1.3 - 4.9 g/dL A/G 0.7 (L) 1.0 - 2.4 TBIL 0.6 0.1 - 1.5 mg/dL ALK PHOS 92 35 - 115 U/L AST 24 10 - 45 U/L ALT 26 10 - 65 U/L EGFR 8 (L) >60 mL/min/1.73m2 CBC w/auto diff (reflex to manual) Collection Time: 03/22/18 9:51 PM Result Value Ref Range WBC 17.58 (H) 3.80 - 11.00 K/uL RBC 3.37 (L) 3.70 - 5.10 M/uL HGB 10.1 (L) 11.3 - 15.5 g/dL HCT 29.7 (L) 34.0 - 46.0 % MCV 88.0 80.0 - 100.0 fl MCH 30.0 27.0 - 34.0 pg MCHC 34.1 32.0 - 35.5 g/dL RDW SD 50.3 37 - 53 fl PLT 199 150 - 400 K/uL MPV 9.3 fl DIFF TYPE AUTOMATED NEUTROPHILS 85.69 % LYMPHOCYTES 7.67 % MONOCYTES 6.05 % EOSINOPHILS 0.14 % BASOPHILS 0.45 % NEUTROPHILS ABS 15.06 (H) 1.90 - 7.40 K/uL LYMPHOCYTES ABS 1.35 1.00 - 3.90 K/uL MONOCYTES ABS 1.06 (H) 0.00 - 0.80 K/uL EOSINOPHILS ABS 0.03 0.00 - 0.50 K/uL BASOPHILS ABS 0.08 0.00 - 0.10 K/uL MORPHOLOGY NORMAL PLT MORPH Platelet Estimate ADEQUATE Diff Comment SLIDE SCANNED, AGREES WITH AUTOMATED RESULTS. Magnesium Collection Time: 03/22/18 9:51 PM Result Value Ref Range MAGNESIUM 2.2 1.7 - 2.4 mg/dL Phosphorus Collection Time: 03/22/18 9:51 PM Result Value Ref Range PHOSPHORUS 4.9 (H) 2.3 - 4.8 mg/dL Lactic acid Collection Time: 03/22/18 9:51 PM Result Value Ref Range LACTIC ACID 1.9 0.4 - 2.0 mmol/L Drugs of Abuse Screen, UR (Hospital And ED Only) Collection Time: 03/22/18 10:12 PM Result Value Ref Range AMPHETAMINE/METHAMPHETAMINE POSITIVE (A) NEGATIVE BARBITUATES NEGATIVE NEGATIVE BENZODIAZEPINE POSITIVE (A) NEGATIVE COCAINE NEGATIVE NEGATIVE METHADONE NEGATIVE NEGATIVE OPIATES NEGATIVE NEGATIVE PCP NEGATIVE NEGATIVE THC POSITIVE (A) NEGATIVE Basic metabolic panel Collection Time: 03/23/18 2:26 AM Result Value Ref Range SODIUM 141 135 - 145 mmol/L POTASSIUM 3.5 3.5 - 4.9 mmol/L CHLORIDE 108 99 - 109 mmol/L CO2 20 (L) 23 - 32 mmol/L ANION GAP AGAP 16 5 - 20 mmol/L GLUCOSE 107 (H) 65 - 99 mg/dL BUN 73 (H) 8 - 25 mg/dL CREATININE 5.7 (H) 0.50 - 1.00 mg/dL BUN/CREAT 13 CALCIUM 7.8 (L) 8.5 - 10.5 mg/dL EGFR 8 (L) >60 mL/min/1.73m2 CBC w/auto diff (reflex to manual) Collection Time: 03/23/18 2:26 AM Result Value Ref Range WBC 11.12 (H) 3.80 - 11.00 K/uL RBC 3.06 (L) 3.70 - 5.10 M/uL HGB 9.1 (L) 11.3 - 15.5 g/dL HCT 27.4 (L) 34.0 - 46.0 % MCV 89.3 80.0 - 100.0 fl MCH 29.6 27.0 - 34.0 pg MCHC 33.1 32.0 - 35.5 g/dL RDW SD 51.2 37 - 53 fl PLT 169 150 - 400 K/uL MPV 9.5 fl DIFF TYPE AUTOMATED NEUTROPHILS 77.27 % LYMPHOCYTES 15.61 % MONOCYTES 6.32 % EOSINOPHILS 0.36 % BASOPHILS 0.44 % NEUTROPHILS ABS 8.59 (H) 1.90 - 7.40 K/uL LYMPHOCYTES ABS 1.74 1.00 - 3.90 K/uL MONOCYTES ABS 0.70 0.00 - 0.80 K/uL EOSINOPHILS ABS 0.04 0.00 - 0.50 K/uL BASOPHILS ABS 0.05 0.00 - 0.10 K/uL Magnesium Collection Time: 03/23/18 2:26 AM Result Value Ref Range MAGNESIUM 2.1 1.7 - 2.4 mg/dL Phosphorus Collection Time: 03/23/18 2:26 AM Result Value Ref Range PHOSPHORUS 4.8 2.3 - 4.8 mg/dL IMAGING: Xr Chest 1 View Result Date: 03/22/2018 AUREA PEREZ XR CHEST 1 VIEW 03/22/2018 10:06 PM HISTORY: Acute respiratory failure, status post intubation. TECHNIQUE: AP chest radiograph 2203 hours. COMPARISON: Chest radiog raph March 18, 2018. FINDINGS: An endotracheal tube is again noted with the tip approximat rajinder 18 mm from the hasmukh, relatively unchanged. A right subclavian approach central dual-hiren men dialysis catheter is again seen with the tip overlying the right ventricle. An enteric t ube is newly noted, coursing through the stomach and off the image inferiorly. Bilateral air space opacities are again noted and emanate from the bilateral parahilar regions, slightly i mproved compared to the previous study. No pneumothorax is seen. Mild blunting of the costop hrenic angles is noted. 1. Unchanged appearance of endotracheal tube. Consider retraction approximately 2 cm. 2. Unchanged right internal jugular approach dual-lumen dialysis catheter. 3. Newly seen enter ic tube. 4. Slightly improved bilateral airspace disease, potentially pulmonary edema, vers us less likely pneumonia. P M X-ray Chest 1 View Result Date: 03/22/2018 This is a non-reportable procedure without a radiologist report and is used for image [employer] only Patient's old records, imaging and labs were reviewed in detail and summarized. PROBLEM LIST Principal Problem: Acute respiratory failure with hypoxia and hypercapnia (HCC) Active Problems: Methamphetamine use Metabolic acidosis ASSESSMENT & PLAN ESRD ON HD Tolerated for hd/uf well today Assess daily for need for hd & uf Orders in the chart Fluid restriction 1.2 litres/24 hours Strict I & O Daily RFP Renal diet Daily weights will help with subsequent hd with uf Dose all meds per protocol for ESRD on hd Acute pulmonary edema got hd / uf Likely flash pulmonary edema due to methamphetamine usage possibly Control blood pressure Currently intubated on ventilator stable ANEMIA IN ESRD EPOGEN TO KEEP HGB 10-11 Lab Results Component Value Date HGB 9.1 (L) 03/23/2018 HGB 10.1 (L) 03/22/2018 HGB 10.1 (L) 01/14/2017 HYPERTENSION Improved WATCH BP CLOSELY DURING HOSPITALIZATION LOW NA DIET Will adjust BP meds according to BP readings BP Readings from Last 3 Encounters: 03/23/18 135/87 01/14/17 160/85 HYPERPHOSPHATEMIA LOW P DIET RESUME PO4 BINDERS once get extubated Lab Results Component Value Date PHOS 4.8 03/23/2018 PHOS 4.9 (H) 03/22/2018 HYPOALBUMINEMIA INCREASE PROTEIN INTAKE Lab Results Component Value Date ALB 2.9 (L) 03/22/2018 ALB 2.8 (L) 01/13/2017 CASE DISCUSSED IN DETAIL WITH PATIENT/ care team, ANSWERS ALL QUESTIONS IN DETAIL, VERBALIZ ES UNDERSTANDING TRENTON FARIA MD 03/23/2018 Sia Zheng Seen earlier and charting completed later Dictation software, [employer], used which may contain error for similar sounding words even af ter review. Personal communication requested for any clarification. onversion Transa ction, Provider Unknown - 03/23/2018 4:30 PM PDT Therapy Progress Note by Stephany Martinez PT at 03/23/18 1630 Author: Stephany Martinez PT Service: (none) Author Type: Physical Therapist Filed: 03/23/18 1643 Date of Service: 03/23/18 1630 Status: Signed Public Bath Attendant: Stephany Martinez PT (Physical Therapist) 03/23/18 1630 PT Last Visit PT Received On 03/23/18 Requires PT Follow Up On hold Other Comments Comments Pt tolerated sedation holiday poorly according to RN. Eitan P.T. for today. onver chaz Transaction, Provider Unknown - 03/23/2018 4:27 PM PDT Case Management by DAHIANA Cerrato at 03/23/181626 Author: DAHIANA Cerrato Service: (none) Author Type: Pourer Filed: 03/23/18 4486 Date of Service: 03/23/181626 Status: Signed Public Bath Attendant: DAHIANA Cerrato (Pourer) Spoke with pt's grandfather by phone. He provided brief info about pt. Will complete asses sment tomorrow. Skylar Valencia- [phone] onver chaz Transaction, Provider Unknown - 03/23/2018 2:42 PM PDT Progress Notes by Kirk Hernandez RD at 03/23/18 1442 Author: Kirk Hernandez RD Service: (none) Author Type: Registered Dietitian Filed: 03/23/18 1442 Date of Service: 03/23/181441 Status: Signed Public Bath Attendant: Kirk Hernandez RD (Registered Dietitian) 03/23/18 1404 Subjective Timepoint Admit (Routine ICU consult, triggers for low BMI. ) Pt c/o Pt admitteed for acute respiratory failure with hypoxia, hypercapnia, methamphetamin e abuse, has hx of ESRD. Pt is currently intubated, sedated on fentanyl and propofol, is get ting HD. Per discussion in rounds plan is to attempt extubation this afternoon. If pt is bert ls extubation then TF will be initiated. Reported by MD Diet Experience Self-selected diet(s) followed Unable to obtain at this time, no family present. Fluid / Beverage Intake Oral Fluids Amount NPO Food Intake Type of Food / Meals NPO Enteral Nutrition Intake Access OG tube. Parenteral Nutrition Intake Rate/Solution Propofol running at 17.7 ml/hr provides approx 467 kcal/day. Nutrition-Focused Physical Findings Skin Skin intact. Anthropometrics Weight change Unable to obtain wt hx, no previous wt's in medical records found. BMI 17.6 i ndicates pt is underweight. Biochemical data, medical tests, and procedures reviewed Biochemical data, medical tests, and procedures reviewed BUN 73 H, Cr 5.7 H. Estimated Energy Needs Total Energy Estimated Needs 1485 - 1732 kcal/day. Method for Estimating Needs 30 - 35 kcal/kg/admit wt 49.5 kg Estimated Protein Needs Total Protein Estimated Needs 59 - 74 g protein/day. Method for Estimating Needs 1.2 - 1.5 g pro/kg/admit wt 49.5 kg Recommendations Recommended energy needs Once pt is extubated advance diet as tolerated to renal. Recommend SPEAKER MOUNTER consult if concerns for dysphagia arise. If pt remains Intubated recommend inititating EN feeds of Novasource renal advance as tolerated to goal rate of 30 ml/hr (x20hr/d) to prov bertha 1200 kcal, 54 g protein, 600 ml TV, and 430 ml free water. In additon add 1 scoop of jania eprotein BID in water flushes for an additional 50 kcal, 12 g protein. Overall TF, beneprote in, and propofol will provide 1717 kcal, 66 g protein which supplies 34.6 kcal/kg and 1.3 g pro/kg based on admit wt 49.5 kg. Will continue to follow per protocol. Nutritional Risk Nutritional risk High Follow up date 03/26/[address] onver chaz Transaction, Provider Unknown - 03/23/2018 9:38 AM PDT Case Management by DAHIANA Cerrato at 03/23/18937 Author: DAHIANA Cerrato Service: (none) Author Type: Pourer Filed: 03/23/18 0939 Date of Service: 03/23/18937 Status: Signed Public Bath Attendant: DAHIANA Cerrato (Pourer) Pt was last hospitalized at [facility] in 2017. Below is assessment from that time. Will complet e new assessment today. 1054 []Hide copied text []Hover for attribution information 01/14/171053 Discharge Planning Evaluation Admitting Diagnosis peritonsillar abscess Readmission No Living Arrangements Family members Support Systems Family members;Friends/neighbors Type of Residence Private residence Independent with ADL's Yes Independent with Mobility Yes Mental Status Oriented Resources Financial concerns No Transportation issues No Patient/Family concerns No Prescription Plan Yes Anticipated Disposition Facility Type Home Met with Aurea and she was sleepy, Pt is a 36 y.o., female who is independent and lives in [place]. She has been seen by Yenny the [facility] for her substance abuse. She denies having any needs for discharge. Patient's PCP is: Erik Flor Patient's insurance:Medicaid Coverage concerns: none Medication coverage/concerns: yes Community resources utilized / needed: none Assistance in transportation: [place] Medicaid Transport Identification of any specific education / training: [facility] for substance abuse Barriers to Discharge / Alternative housing needed: none Anticipated DCP: Bello Tamayo onver chaz Mirza Provider Unknown - 03/23/2018 7:53 AM PDT Progress Notes by Janet Caceres RN at 03/23/18752 Author: Janet Caceres RN Service: (none) Author Type: Registered Nurse Filed: 03/23/18752 Date of Service: 03/23/18752 Status: Signed Public Bath Attendant: Janet Caceres RN (Registered Nurse) Please order contact precautions for MRSA. Thank you!Janet Infection Prevention Elda Nash NP - 03/23/2018 3:27 AM PDT Progress Notes by BLAYNE Blue at 03/23/18326 Author: BLAYNE Blue Service: Value Stream Coach Author Type: Advanced Registered Nurse Practitioner Filed: 03/23/18 0713 Date of Service: 03/23/18326 Status: Addendum Public Bath Attendant: BLAYNE Blue (Advanced Registered Nurse Practitioner) Related Notes: Original Note by BLAYNE Blue (Advanced Registered Nurse Prac titioner) filed at 03/23/18 0557 [facility] Value Stream Coach Service Progress Note Aurea aVzquez Chris 37 y.o. Hospital Day: LOS: 1 day Post-Op Day: * No surgery found * Consulting Physicians Treatment Team: Consulting Physician: Trenton Faria MD Admitting Provider: Gee Sandoval MD SUBJECTIVE Patient Summary: The patient is a 37 y.o. female with significant past medical histor y of ESRD (secondary to TTP/HUS) on HD, HTN, methamphetamine use, and peritonsillar abscess, who presents with severe shortness of breath and anxiety. The patient was very uncooperati ve, and required IV Versed immediately upon evaluation. Because of the severe respiratory d istress and other clinical findings, the decision was made to intubate her; she was given et omidate and rocuronium and was then intubated. The patient had initially said that she had not received hemodialysis "for several months" according to the documentation at [facility]. The ED physician felt that it was more probable that she had used methamphetamine recen tly and that was what resulted in her acute pulmonary edema. Lab findings at [facility] were significant for serum CO2 11, WBC 16.3, BUN 65, creatini ne 5.26, lactic acid 7.8, and K of 3.3. ABG showed a pH of 7.08, pCO2 49.4, pO2 95, HCO3 14 .4. A CXR showed pulmonary edema. After consulting with Dr. Sandoval, the recommended 3 amp s of sodium bicarbonate were given, and the patient was then transferred to [facility]'s ICU for further management ICU Timeline: 03/22: Pt presented to [facility] ED in severe respiratory distress. Intubated; cristobal sferred to [facility] ICU. Events Overnight: Remained on MV, sedated on propofol and fentanyl. SCHEDULED MEDICATIONS chlorhexidine gluconate 15 mL Mouth/Throat Q12H docusate sodium 100 mg Oral BID Or docusate 100 mg Per OG Tube BID famotidine 20 mg Oral Daily Or famotidine 20 mg Intravenous Daily heparin (porcine) 5000 unit/0.5mL 5,000 Units Subcutaneous 3 times per day CONTINUOUS INFUSIONS fentaNYL in NS 5 mcg/mL 25 mcg/hr (03/23/18114) propofol 60 mcg/kg/min (03/23/18112) OBJECTIVE VITAL SIGNS Temp: [99.1 F (37.3 C)-99.7 F (37.6 C)] 99.7 F (37.6 C) Heart Rate: [90-114] 93 Resp: [14-18] 14 BP: (126-179)/(72-98) 138/83 FiO2 : [35 %-40 %] 35 % Intake/Output Summary (Last 24 hours) at 03/23/18 0327 Last data filed at 03/22/18 2100 Gross per 24 hour Intake 0 ml Output 40 ml Net -40 ml EXAM GEN: sedated, mechanically ventilated NEURO: PERRL, no facial asymmetry, heavily sedated, not currently withdrawing to pain GCS: 3T HEENT: sclerae clear, nonicteric, oral mmm, pink, ETT/OGT in place NECK: supple, trachea midline CV: tachycardic, RRR, S1/S2, murmur present, no rub or gallop, peripheral pulses palpable, cap refill brisk, but bilateral hands appear dusky LUNGS: loud rhonchi throughout b/l, no wheezing or rales, symmetric chest expansion, even/u nlabored respirations ABD: soft, flat, nondistended, nontender to palpation, bowel tones hypoactive EXTR: no edema or clubbing; hands dusky SKIN: warm, dry, no rash or mottling; no e/o skin breakdown over the occiput, scapulae, elb ows, sacrum or heels LINES/TUBES: R chest hemodialysis catheter, L external jugular IV, right arm AV fistula, ET T/OGT, urinary catheter DATA Recent Labs Lab 03/23/18 0226 03/22/181 WBC 11.12* 17.58* RBC 3.06* 3.37* HGB 9.1* 10.1* HCT 27.4* 29.7* MCV 89.3 88.0 MCH 29.6 30.0 MCHC 33.1 34.1 RDW 51.2 50.3 PLT 169 199 MPV 9.5 9.3 NEUTROABS 8.59* 15.06* LYMPHSABS 1.74 1.35 MONOSABS 0.70 1.06* BASOSABS 0.05 0.08 EOSABS 0.04 0.03 MORPH -- NORMAL PLT MORPH Recent Labs Lab 03/22/18 2151 NA 139 K 2.9* CL 105 CO2 19* ANIONGAP 17 GLUF 160* BUN 71* CREATININE 5.6* BCR 13 CA 8.0* ALB 2.9* GLOB 4.0 AG 0.7* PROT 6.9 BILITOT 0.6 ALT 26 AST 24 EGFR 8* PHOS 4.9* MG 2.2 No results for input(s): INR in the last 168 hours. IMAGING Xr Chest 1 View Result Date: 03/22/2018 1. Unchanged appearance of endotracheal tube. Consider retraction approximately 2 cm. 2. Unchanged right internal jugular approach dual-lumen dialysis catheter. 3. Newly seen enter ic tube. 4. Slightly improved bilateral airspace disease, potentially pulmonary edema, vers us less likely pneumonia. P M PROBLEM LIST Principal Problem: Acute respiratory failure with hypoxia and hypercapnia (HCC) Active Problems: Methamphetamine use Metabolic acidosis Resolved Problems: * No resolved hospital problems. * ASSESSMENT & PLAN NEURO: Extreme agitation/ anxiety on presentation. Currently sedated on propofol and fentanyl. Continue sedation during mechanical ventilation. Plan for daily sedation holiday with field coordinator rdinated spontaneous breathing trial. Hx methamphetamine use. Urine drug screen positive for amphetamines, benzodiazepines, a nd THC. CAM-ICU screening every shift. CV: Flash pulmonary edema. Pt has no generalized edema, so believe this to be due to cardia c etiology rather than to fluid overload. Hx hypertension. Previously on Coreg, nifedipine, lisinopril, and Lasix, but it is unkn own if patient is compliant with her home medications. Will use prn hydralazine and labetal ol for SBP > 160. PULM: Acute respiratory failure with hypoxia and hypercapnia. Intubated at [facility]. Re peat ABG improved. Utilize lung protective ventilator strategy. Daily sedation holiday with spontaneous breathing trial. GI/NUTRITION: May give oral meds via OG tube. RENAL/LYTES: ESRD, on hemodialysis, secondary to TTP/HUS and hypertensive nephrosclerosis. Unknown d ialysis schedule. No urgent indication for hemodialysis tonight. Nephrology planning for d ialysis this morning. Renally dose medications, avoid nephrotoxins. Monitor electrolytes and replace cautiously if needed. Monitor Is/Os. BMP daily. ID: Do not suspect acute infection at this time. HEME: Normocytic anemia. No thrombocytopenia. CBC daily. ENDO: No hx of diabetes. Implement Endotool if indicated per ICU protocol. MUSC/SKIN: PT/OT/mobilize patient as able. Skin care and pressure ulcer prevention per nursing standards. PROPHYLAXIS: Stress ulcer prophylaxis: famotidine DVT prophylaxis: heparin SQ VAP bundle: chlorhexidine oral care, HOB >30 degrees Disposition: ICU plan of care as above. Code Status: Full Code *Please bill 30 minutes of critical care time spent evaluating the patient, reviewing the d amber and formulating a plan exclusive of all other procedures. BLAYNE Vera 03/23/2018 onversion Cristobal saction, Provider Unknown - 03/23/2018 12:32 AM PDTFormatting of this note might be differen t from the original. Nurse Progress Note by Crystal Wright RN at 03/23/1831 Author: Crystal Wright RN Service: (none) Author Type: Registered Nurse Filed: 03/23/1838 Date of Service: 03/23/1831 Status: Signed Public Bath Attendant: Crystal Wright RN (Registered Nurse) Patient arrived from [facility] with bicarb gtt infusing into tunneled HD cathleen ter in right chest. This RN noted HD cath caps,connections, and catheter were visibly soiled with dried brown residue and insertion site was pink. BLAYNE Owens notified that HD cat h was accessed. RN obtained verbal order to change caps and heparin lock both lumens of HD c ath. RN noted no blood return and unable to forward flush blue lumen but cap was replaced. R N noted red lumen had good blood return, flushed easily, cap changed, and heparin locked. Wh en RN removed existing caps it was noted there was debris and hair stuck to the inside of th e threading of the caps. Dr Sands notified, photo documentation in chart. Marimar Manzano RN 03/23/2018 onver chaz Transaction, Provider Unknown - 03/23/2018 12:24 AM PDT Pharmacy Note by Freida Staples [facility] at 03/23/18 0024 Author: Freida Staples RPH Service: Pharmacy Author Type: Pharmacist Filed: 03/23/1823 Date of Service: 03/23/1823 Status: Signed Public Bath Attendant: Freida Staples RPH (Pharmacist) Clinical Pharmacy Note: Renal Monitoring Height: 167.6 cm Weight: 495 kg Patient is on hemodialysis. Will order the following dosage adjustments: Pepcid 20 mg IV/PO Q24H Pharmacy will continue to follow and adjust medications as needed. Freida Staples PharmD 03/23/2018 12:23 AM onver chaz Transaction, Provider Unknown - 03/22/2018 9:22 PM PDT Progress Notes by Sudeep Lorenzana RPH at 03/22/182121 Author: Sudeep Lorenzana RPH Service: Pharmacy Author Type: Pharmacist Filed: 03/22/182121 Date of Service: 03/22/182121 Status: Signed Public Bath Attendant: Sudeep Lorenzana RPH (Pharmacist) Renal Dosing Monitoring: S: Renal dose monitoring per protocol. O: CrCl cannot be calculated (Patient's most recent lab result is older than the maximum 30 days allowed.). I/O (mL): -/- Dialysis?: - A: No adjustments needed at this time. No labs at this time. P: Pharmacy will continue monitoring patient for appropriate dosing based on renal function . Pharmacist: Sudeep Lorenzana PharmD docume nted in this encounter Plan of Treatment Not on filedocumented as of this encounter Procedures + +--------+ + + + | Procedure Name | Priori | Date/Time | Associated Diagnosis | Comments | | | ty | | | | + +--------+ + + + | EXTERNAL LAB: CBC | Routin | 03/29/2018 | | Results for this | | | e | 4:45 AM | | procedure are in the | | | | PDT | | results section. | + +--------+ + + + | PHOSPHORUS | Routin | 03/29/2018 | | Results for this | | | e | 4:45 AM | | procedure are in the | | | | PDT | | results section. | + +--------+ + + + | MAGNESIUM | Routin | 03/29/2018 | | Results for this | | | e | 4:45 AM | | procedure are in the | | | | PDT | | results section. | + +--------+ + + + | BASIC METABOLIC | Routin | 03/29/2018 | | Results for this | | PANEL | e | 4:45 AM | | procedure are in the | | | | PDT | | results section. | + +--------+ + + + | US GUIDED VASCULAR | Routin | 03/28/2018 | | Results for this | | ACCESS | e | 4:16 PM | | procedure are in the | | | | PDT | | results section. | + +--------+ + + + | IR INJECTION | Routin | 03/28/2018 | | Results for this | | DIALYSIS CIRCUIT | e | 3:54 PM | | procedure are in the | | | | PDT | | results section. | + +--------+ + + + | EXTERNAL LAB: CBC | Routin | 03/28/2018 | | Results for this | | | e | 4:31 AM | | procedure are in the | | | | PDT | | results section. | + +--------+ + + + | , SERUM, | Routin | 03/28/2018 | | Results for this | | QUAL | e | 4:31 AM | | procedure are in the | | | | PDT | | results section. | + +--------+ + + + | PHOSPHORUS | Routin | 03/28/2018 | | Results for this | | | e | 4:31 AM | | procedure are in the | | | | PDT | | results section. | + +--------+ + + + | MAGNESIUM | Routin | 03/28/2018 | | Results for this | | | e | 4:31 AM | | procedure are in the | | | | PDT | | results section. | + +--------+ + + + | BASIC METABOLIC | Routin | 03/28/2018 | | Results for this | | PANEL | e | 4:31 AM | | procedure are in the | | | | PDT | | results section. | + +--------+ + + + | XR CHEST 1 VIEW | Routin | 03/27/2018 | | Results for this | | | e | 6:43 AM | | procedure are in the | | | | PDT | | results section. | + +--------+ + + + | EXTERNAL LAB: CBC | Routin | 03/27/2018 | | Results for this | | | e | 4:23 AM | | procedure are in the | | | | PDT | | results section. | + +--------+ + + + | PHOSPHORUS | Routin | 03/27/2018 | | Results for this | | | e | 4:23 AM | | procedure are in the | | | | PDT | | results section. | + +--------+ + + + | MAGNESIUM | Routin | 03/27/2018 | | Results for this | | | e | 4:23 AM | | procedure are in the | | | | PDT | | results section. | + +--------+ + + + | BASIC METABOLIC | Routin | 03/27/2018 | | Results for this | | PANEL | e | 4:23 AM | | procedure are in the | | | | PDT | | results section. | + +--------+ + + + | GRAM STAIN, REFLEX | Routin | 03/26/2018 | | Results for this | | SPUTUM CULTURE | e | 4:30 PM | | procedure are in the | | | | PDT | | results section. | + +--------+ + + + | EXTERNAL LAB: CBC | Routin | 03/26/2018 | | Results for this | | | e | 4:14 AM | | procedure are in the | | | | PDT | | results section. | + +--------+ + + + | PHOSPHORUS | Routin | 03/26/2018 | | Results for this | | | e | 4:14 AM | | procedure are in the | | | | PDT | | results section. | + +--------+ + + + | MAGNESIUM | Routin | 03/26/2018 | | Results for this | | | e | 4:14 AM | | procedure are in the | | | | PDT | | results section. | + +--------+ + + + | BASIC METABOLIC | Routin | 03/26/2018 | | Results for this | | PANEL | e | 4:14 AM | | procedure are in the | | | | PDT | | results section. | + +--------+ + + + | EXTERNAL LAB: CBC | Routin | 03/25/2018 | | Results for this | | | e | 4:20 AM | | procedure are in the | | | | PDT | | results section. | + +--------+ + + + | PHOSPHORUS | Routin | 03/25/2018 | | Results for this | | | e | 4:20 AM | | procedure are in the | | | | PDT | | results section. | + +--------+ + + + | MAGNESIUM | Routin | 03/25/2018 | | Results for this | | | e | 4:20 AM | | procedure are in the | | | | PDT | | results section. | + +--------+ + + + | BASIC METABOLIC | Routin | 03/25/2018 | | Results for this | | PANEL | e | 4:20 AM | | procedure are in the | | | | PDT | | results section. | + +--------+ + + + | POC GLUCOSE | Routin | 03/24/2018 | | Results for this | | | e | 9:45 PM | | procedure are in the | | | | PDT | | results section. | + +--------+ + + + | TROPONIN I | Routin | 03/24/2018 | | Results for this | | | e | 1:13 PM | | procedure are in the | | | | PDT | | results section. | + +--------+ + + + | XR CHEST 1 VIEW | Routin | 03/24/2018 | | Results for this | | | e | 5:17 AM | | procedure are in the | | | | PDT | | results section. | + +--------+ + + + | TROPONIN I | Routin | 03/24/2018 | | Results for this | | | e | 4:59 AM | | procedure are in the | | | | PDT | | results section. | + +--------+ + + + | EXTERNAL LAB: CBC | Routin | 03/24/2018 | | Results for this | | | e | 4:56 AM | | procedure are in the | | | | PDT | | results section. | + +--------+ + + + | PHOSPHORUS | Routin | 03/24/2018 | | Results for this | | | e | 4:56 AM | | procedure are in the | | | | PDT | | results section. | + +--------+ + + + | MAGNESIUM | Routin | 03/24/2018 | | Results for this | | | e | 4:56 AM | | procedure are in the | | | | PDT | | results section. | + +--------+ + + + | BASIC METABOLIC | Routin | 03/24/2018 | | Results for this | | PANEL | e | 4:56 AM | | procedure are in the | | | | PDT | | results section. | + +--------+ + + + | EXTERNAL LAB: CBC | Routin | 03/23/2018 | | Results for this | | | e | 2:26 AM | | procedure are in the | | | | PDT | | results section. | + +--------+ + + + | PHOSPHORUS | Routin | 03/23/2018 | | Results for this | | | e | 2:26 AM | | procedure are in the | | | | PDT | | results section. | + +--------+ + + + | MAGNESIUM | Routin | 03/23/2018 | | Results for this | | | e | 2:26 AM | | procedure are in the | | | | PDT | | results section. | + +--------+ + + + | BASIC METABOLIC | Routin | 03/23/2018 | | Results for this | | PANEL | e | 2:26 AM | | procedure are in the | | | | PDT | | results section. | + +--------+ + + + | DRUGS OF ABUSE | Routin | 03/22/2018 | | Results for this | | SCREEN, URINE (H) | e | 10:12 PM | | procedure are in the | | | | PDT | | results section. | + +--------+ + + + | XR CHEST 1 VIEW | Routin | 03/22/2018 | | Results for this | | | e | 10:06 PM | | procedure are in the | | | | PDT | | results section. | + +--------+ + + + | EXTERNAL LAB: CBC | Routin | 03/22/2018 | | Results for this | | | e | 9:51 PM | | procedure are in the | | | | PDT | | results section. | + +--------+ + + + | PHOSPHORUS | Routin | 03/22/2018 | | Results for this | | | e | 9:51 PM | | procedure are in the | | | | PDT | | results section. | + +--------+ + + + | MAGNESIUM | Routin | 03/22/2018 | | Results for this | | | e | 9:51 PM | | procedure are in the | | | | PDT | | results section. | + +--------+ + + + | LACTIC ACID | Routin | 03/22/2018 | | Results for this | | | e | 9:51 PM | | procedure are in the | | | | PDT | | results section. | + +--------+ + + + | COMPREHENSIVE | Routin | 03/22/2018 | | Results for this | | METABOLIC PANEL | e | 9:51 PM | | procedure are in the | | | | PDT | | results section. | + +--------+ + + + | GRAM STAIN, REFLEX | STAT | 03/22/2018 | | Results for this | | SPUTUM CULTURE | | 9:40 PM | | procedure are in the | | | | PDT | | results section. | + +--------+ + + + | MRSA NAAT | Routin | 03/22/2018 | | Results for this | | | e | 8:40 PM | | procedure are in the | | | | PDT | | results section. | + +--------+ + + + | POC GLUCOSE | Routin | 03/22/2018 | | Results for this | | | e | 8:09 PM | | procedure are in the | | | | PDT | | results section. | + +--------+ + + + documented in this encounter Results External Lab: DAMIAN (03/29/2018 4:45 AM PDT) + + +---- + + + | Component | Value | Ref Range | Performed | Pathologist | | | | | At | Signature | + + +---- + + + | WBC | 9.18 | 3.8 0 - 11.00 | EXTERNAL | | | | | K/u L | LAB | | + + +---- + + + | RED CELL | 3.23 (L) | 3.7 0 - 5.10 | EXTERNAL | | | COUNT | | M/u L | LAB | | + + +---- + + + | Hgb | 9.9 (L) | 11. 3 - 15.5 | EXTERNAL | | | | | g/d L | LAB | | + + +---- + + + | Hematocrit, | 29.1 (L) | 34. 0 - 46.0 % | EXTERNAL | | | POC | | | LAB | | + + +---- + + + | MCV | 89.8 | 80. 0 - 100.0 fl | EXTERNAL | | | | | | LAB | | + + +---- + + + | MCH | 30.7 | 27. 0 - 34.0 pg | EXTERNAL | | | | | | LAB | | + + +---- + + + | MCHC | 34.1 | 32. 0 - 35.5 | EXTERNAL | | | | | g/d L | LAB | | + + +---- + + + | RDW-CV | 52.1 | 37 - 53 fl | EXTERNAL | | | | | | LAB | | + + +---- + + + | Platelet | 221 | 150 - 400 K/uL | EXTERNAL | | | Count | | | LAB | | | Plasma | | | | | + + +---- + + + | MPV | 9.1 | fl | EXTERNAL | | | | | | LAB | | + + +---- + + + | Differentia | MANUAL | | EXTERNAL | | | l Type | | | LAB | | + + +---- + + + | Nucleated | 1 (H) | /10 0WBC | EXTERNAL | | | Red Blood | | | LAB | | | Cells | | | | | + + +---- + + + | Segmented | 60 | % | EXTERNAL | | | Neutrophils | | | LAB | | | Manual | | | | | + + +---- + + + | % | 2 | % | EXTERNAL | | | Metamyelocy | | | LAB | | | ernesto | | | | | + + +---- + + + | Lymphocytes | 26 | % | EXTERNAL | | | Manual | | | LAB | | + + +---- + + + | Monocytes | 9 | % | EXTERNAL | | | Manual | | | LAB | | + + +---- + + + | Eosinophils | 3 | % | EXTERNAL | | | Manual | | | LAB | | + + +---- + + + | Absolute | 5.50 | 1.9 0 - 7.40 | EXTERNAL | | | Neutrophils | | K/u L | LAB | | + + +---- + + + | Absolute | 0.18 (H) | K/u L | EXTERNAL | | | Metamyelocy | | | LAB | | | ernesto | | | | | + + +---- + + + | Absolute | 2.39 | 1.0 0 - 3.90 | EXTERNAL | | | Lymphocytes | | K/u L | LAB | | + + +---- + + + | Absolute | 0.83 (H) | 0.0 0 - 0.80 | EXTERNAL | | | Monocytes | | K/u L | LAB | | + + +---- + + + | Absolute | 0.28 | 0.0 0 - 0.50 | EXTERNAL | | | Eosinophils | | K/u L | LAB | | + + +---- + + + | RBC | 1+Comment: | | EXTERNAL | | | Morphology | ANISO1+OVALONORMAL PLT | | LAB | | | | MORPHTesting performed | | | | | | at [facility], [address] | | | | | | [facility], | | | | | | [place] [address] | | | | | |Testing performed at [facility], [address] [facility], [place] [address] | | | | | | | | | | + + +---- + + + + + | Specimen | + + | Blood specimen | | (specimen) | + + + +---------+ + + | Performing | Address | City/State/Zipcode | Phone Number | | Organization | | | | + +---------+ + + | EXTERNAL LAB | | | | + +---------+ + + Phosphorus (03/29/2018 4:45 AM PDT) + + + + + + | Component | Value | Ref Range | Performed | Pathologist | | | | | At | Signature | + + + + + + | PHOSPHORUS | 3.0Comment: Testing | 2.3 - 4.8 mg/dL | EXTERNAL | | | | performed at [facility], [address] | | LAB | | | | [address], | | | | | | [place] [address] | | | | + + + + + + + + | Specimen | + + | Blood specimen | | (specimen) | + + + +---------+ + + | Performing | Address | City/State/Zipcode | Phone Number | | Organization | | | | + +---------+ + + | EXTERNAL LAB | | | | + +---------+ + + Magnesium (03/29/2018 4:45 AM PDT) + + + + + + | Component | Value | Ref Range | Performed | Pathologist | | | | | At | Signature | + + + + + + | Magnesium | 2.3Comment: Testing | 1.7 - 2.4 mg/dL | EXTERNAL | | | | performed at [facility], [address] | | LAB | | | | [address], | | | | | | [place] [address] | | | | + + + [...] + +---------+ + + Basic Metabolic Panel (03/29/2018 4:45 AM PDT) + + + + + + [...] + + + + | Cl | 99 | 99 - 109 mmol/L | EXTERNAL | | | | | | LAB | | + + + + + + | CO2 | 28 | 23 - 32 mmol/L | EXTERNAL | | | | | | LAB | | + + + + + + | Anion Gap | 14 | 5 - 20 mmol/L | EXTERNAL | | | | | | LAB | | + + + + + + | Glucose, | 105 (H) | 65 - 99 mg/dL | EXTERNAL | | | Fasting | | | LAB | | + + + + + + | BUN | 35 (H) | 8 - 25 mg/dL | EXTERNAL | | | | | | LAB | | + + + + + + | Creatinine | 4.3 (H) | 0.50 - 1.00 | EXTERNAL | | | | | mg/dL | LAB | | + + + + + + | BUN/Creatin | 8 | | EXTERNAL | | | ine Ratio | | | LAB | | + + + + + + | Calcium | 8.5 | 8.5 - 10.5 | EXTERNAL | | | | | mg/dL | LAB | | + + + + + + | Estimated | 12 (L)Comment: GFR <60: | mL/min/1.73m2 | EXTERNAL [...] | | | | | performed at [facility], [address] | | | | | | [facility], | | | | | | [place] [address] | | | | + + + + + + + + | Specimen | + + | Blood specimen | | (specimen) | + + + +---------+ + + | Performing | Address | City/State/Zipcode | Phone Number | | Organization | | | | + +---------+ + + | EXTERNAL LAB | | | | + +---------+ + + US Guided Vascular Access (03/28/2018 4:16 PM PDT) + + | Specimen | + + | | + + + + + | Narrative | Performed At | + + + | This Point of Care (POC) ultrasound image has been reviewed and | | | interpreted by the physician identified as the performing physician in | | | the associated interpretation and report. | | + + + + + | Procedure Note | + + | Rickie Flannery Taniya - 01/18/2019 1:45 PM PDT This Point of Care (POC) ultrasound | | image has been reviewed andinterpreted by the physician identified as the performing | | physician in theassociated interpretation and report. | | | + + IR Inj Dialysis Circuit (03/28/2018 3:54 PM PDT) + + | Specimen | + + | | + + + + + | Impressions | Performed At | + + + | Right upper extremity fistulogram with no apparent abnormality. | | | Return to dialysis. Consider removal of the tunneled dialysis | | | catheter. | | | 4:04 PM | | + + + + + + | Narrative | Performed At | + + + | IR AV FISTULAGRAM IMAGING dated 03/28/2018 3:18 PM CLINICAL | | | DATA: History of end-stage renal disease with a right brachial basilic | | | fistula placed by Dr. Gallagher approximately 2 months ago with existing | | | right IJ tunneled dialysis catheter. Patient administered for | | | pulmonary edema. Report of poor fistula flow. COMPARISON | | | STUDIES: None. PRIMARY BALE BREAKER OPERATOR: Chalino Thomas MD, PhD, RPVI | | | OPERATIONS: 1. Right upper extremity limited ultrasound for | | | diagnostic purposes 2. Ultrasound-guided right retrograde basilic | | | venous access 3. Right upper extremity fistulogram. PROCEDURE: | | | Informed consent was obtained from the patient. Continuous | | | cardiac monitoring was performed throughout the procedure. No sedation | | | was administered. Contrast: 72 cc Isovue 250 Fluoroscopy | | | time: 2.9 minutes Radiation dose: 13 mGy air kerma Patient was | | | sterilely prepped and draped in usual fashion. The fistula was first | | | assessed with grayscale and color ultrasound and images of the widely | | | patent AV anastomosis saved into PACS. Site was selected on the upper | | | portion of the fistula access for retrograde access. Skin was | | | locally anesthetized with 1% lidocaine a skin vanita was made with 11 | | | blade. Real-time ultrasound guided micropuncture access was obtained | | | and the microsheath was placed. The sheath was exchanged over a wire | | | for a 4 Uzbek sheath. The Kumpe catheter and Glidewire were | | | advanced into the brachial artery and fistulogram was performed from | | | the arteriovenous anastomosis through the chest. No abnormalities were | | | noted. The catheters and wires were removed. The sheath was removed | | | and manual compression was applied until hemostasis was achieved. | | | FINDINGS: By ultrasound, the arteriovenous anastomosis is widely | | | patent. On fistulogram with the catheter positioned initially in | | | the brachial artery, the arteriovenous anastomosis is widely patent. | | | Subsequent discogram was performed through the sheath. Fistulogram in | | | the upper arm and chest reveals no abnormality, specifically no | | | stenosis. The right internal jugular tunneled dialysis catheter is | | | noted and there is a diminutive central right innominate vein but it | | | does not appear to be flow-limiting as there is vigorous flow of | | | contrast around the catheter. | | + + + + + | Procedure Note | + + | Prudencio, Rad Conversion - 01/18/2019 1:45 PM PDT IR AV FISTULAGRAM IMAGING dated | | 03/28/2018 3:18 PM CLINICAL DATA: History of end-stage renal disease with a right | | brachial basilic fistula placed by Dr. Gallagher approximately 2 months ago with existing | | right IJ tunneled dialysis catheter. Patient administered for pulmonary edema. Report of | | poor fistula flow. COMPARISON STUDIES: None. PRIMARY BALE BREAKER OPERATOR: Chalino Thomas MD, | | PhD, RPVI OPERATIONS:1. Right upper extremity limited ultrasound for diagnostic | | purposes2. Ultrasound-guided right retrograde basilic venous access3. Right upper | | extremity fistulogram. PROCEDURE: Informed consent was obtained from the patient. | | Continuous cardiac monitoring was performed throughout the procedure. No sedation was | | administered. Contrast: 72 cc Isovue 250Fluoroscopy time: 2.9 minutesRadiation dose: 13 | | mGy air kerma Patient was sterilely prepped and draped in usual fashion. The fistula | | was first assessed with grayscale and color ultrasound and images of the widely patent | | AV anastomosis saved into PACS. Site was selected on the upper portion of the fistula | | access for retrograde access. Skin was locally anesthetized with 1% lidocaine a skin | | vanita was made with 11 blade. Real-time ultrasound guided micropuncture access was | | obtained and the microsheath was placed. The sheath was exchanged over a wire for a 4 | | Uzbek sheath. The Kumpe catheter and Glidewire were advanced into the brachial artery | | and fistulogram was performed from the arteriovenous anastomosis through the chest. No | | abnormalities were noted. The catheters and wires were removed. The sheath was removed | | and manual compression was applied until hemostasis was achieved. FINDINGS: By | | ultrasound, the arteriovenous anastomosis is widely patent. On fistulogram with the | | catheter positioned initially in the brachial artery, the arteriovenous anastomosis is | | widely patent. Subsequent discogram was performed through the sheath. Fistulogram in the | | upper arm and chest reveals no abnormality, specifically no stenosis. The right | | internal jugular tunneled dialysis catheter is noted and there is a diminutive central | | right innominate vein but it does not appear to be flow-limiting as there is vigorous | | flow of contrast around the catheter. IMPRESSION: Right upper extremity fistulogram | | with no apparent abnormality. Return to dialysis. Consider removal of the tunneled | | dialysis catheter. | | | |FINDINGS: | | | |By ultrasound, the arteriovenous anastomosis is widely patent. | | | |On fistulogram with the catheter positioned initially in the brachial artery, the arteriove nous anastomosis is widely patent. Subsequent discogram was performed through the sheath. Fi stulogram in the upper arm and chest reveals no abnormality, | |specifically no stenosis. The right internal jugular tunneled dialysis catheter is noted an d there is a diminutive central right innominate vein but it does not appear to be flow-limi ting as there is vigorous flow of contrast around the catheter. | | | |IMPRESSION: | | | |Right upper extremity fistulogram with no apparent abnormality. Return to dialysis. Conside r removal of the tunneled dialysis catheter. | | | | | + + External Lab: DAMIAN (03/28/2018 4:31 AM PDT) + + + + + + | Component | Value | Ref Range | Performed | Pathologist | | | | | At | Signature | + + + + + + | WBC | 8.95 | 3.80 - 11.00 | EXTERNAL | | | | | K/uL | LAB | | + + + + + + | RED CELL | 3.18 (L) | 3.70 - 5.10 | EXTERNAL | | | COUNT | | M/uL | LAB | | + + + + + + | Hgb | 9.7 (L) | 11.3 - 15.5 | EXTERNAL | | | | | g/dL | LAB | | + + + + + + | Hematocrit, | 28.3 (L) | 34.0 - 46.0 % | EXTERNAL | | | POC | | | LAB | | + + + + + + | MCV | 88.9 | 80.0 - 100.0 fl | EXTERNAL | | | | | | LAB | | + + + + + + | MCH | 30.5 | 27.0 - 34.0 pg | EXTERNAL | | | | | | LAB | | + + + + + + | MCHC | 34.4 | 32.0 - 35.5 | EXTERNAL | | | | | g/dL | LAB | | + + + + + + | RDW-CV | 50.8 | 37 - 53 fl | EXTERNAL | | | | | | LAB | | + + + + + + | Platelet | 216 | 150 - 400 K/uL | EXTERNAL | | | Count | | | LAB | | | Plasma | | | | | + + + + + + | MPV | 9.3 | fl | EXTERNAL | | | | | | LAB | | + + + + + + | Differentia | MANUAL | | EXTERNAL | | | l Type | | | LAB | | + + + + + + | Segmented | 80 | % | EXTERNAL | | | Neutrophils | | | LAB | | | Manual | | | | | + + + + + + | % | 1 | % | EXTERNAL | | | Metamyelocy | | | LAB | | | ernesto | | | | | + + + + + + | Lymphocytes | 10 | % | EXTERNAL | | | Manual | | | LAB | | + + + + + + | Monocytes | 7 | % | EXTERNAL | | | Manual | | | LAB | | + + + + + + | Eosinophils | 2 | % | EXTERNAL | | | Manual | | | LAB | | + + + + + + | Absolute | 7.15 | 1.90 - 7.40 | EXTERNAL | | | Neutrophils | | K/uL | LAB | | + + + + + + | Absolute | 0.09 (H) | K/uL | EXTERNAL | | | Metamyelocy | | | LAB | | | ernesto | | | | | + + + + + + | Absolute | 0.90 (L) | 1.00 - 3.90 | EXTERNAL | | | Lymphocytes | | K/uL | LAB | | + + + + + + | Absolute | 0.63 | 0.00 - 0.80 | EXTERNAL | | | Monocytes | | K/uL | LAB | | + + + + + + | Absolute | 0.18 | 0.00 - 0.50 | EXTERNAL | | | Eosinophils | | K/uL | LAB | | + + + + + + | RBC | 1+Comment: ANISONORMAL | | EXTERNAL | | | Morphology | PLT MORPHTesting | | LAB | | | | performed at [facility], [address] | | | | | | [address], | | | | | | [place] [address] | | | | | | | [...] | | | + +---------+ + + , Serum, Qual (03/28/2018 4:31 AM PDT) + + + + + + | Component | Value | Ref Range | Performed | Pathologist | | | | | At | Signature | + + + + + + | HCG | NEGATIVEComment: Testing | | EXTERNAL | | | QUALITATIVE | performed at [facility] | | LAB | | | | [address];[place] | | | | | | [address] | | | | + + + + + + + + | Specimen | + + | Blood specimen | | (specimen) | + + + +---------+ + + | Performing | Address | City/State/Zipcode | Phone Number | | Organization | | | | + +---------+ + + | EXTERNAL LAB | | | | + +---------+ + + Phosphorus (03/28/2018 4:31 AM PDT) + + + + + + | Component | Value | Ref Range | Performed | Pathologist | | | | | At | Signature | + + + + + + | PHOSPHORUS | 4.0Comment: Testing | 2.3 - 4.8 mg/dL | EXTERNAL | | | | performed at [facility], [address] | | LAB | | | | [address], | | | | | | [place] [address] | | | | + + + + + + + + | Specimen | + + | Blood specimen | | (specimen) | + + + +---------+ + + | Performing | Address | City/State/Zipcode | Phone Number | | Organization | | | | + +---------+ + + | EXTERNAL LAB | | | | + +---------+ + + Magnesium (03/28/2018 4:31 AM PDT) + + + + + + | Component | Value | Ref Range | Performed | Pathologist | | | | | At | Signature | + + + + + + | Magnesium | 2.4Comment: Testing | 1.7 - 2.4 mg/dL | EXTERNAL | | | | performed at [facility], [address] | | LAB | | | | [address], | | | | | | [place] [address] | | | | + + + [...] + +---------+ + + Basic Metabolic Panel (03/28/2018 4:31 AM PDT) + + + + + + | Component | Value | Ref Range | Performed | Pathologist | | | | | At | Signature | + + + + + + | Na | 137 | 135 - 145 | EXTERNAL | | | | | mmol/L | LAB | | + + + + + + | K | 4.1 | 3.5 - 4.9 | EXTERNAL | | | | | mmol/L | LAB | | + + + + + + | Cl | 100 | 99 - 109 mmol/L | EXTERNAL | | | | | | LAB | | + + + + + + | CO2 | 22 (L) | 23 - 32 mmol/L | EXTERNAL | | | | | | LAB | | + + + + + + | Anion Gap | 19 | 5 - 20 mmol/L | EXTERNAL | | | | | | LAB | | + + + + + + | Glucose, | 116 (H) | 65 - 99 mg/dL | EXTERNAL | | | Fasting | | | LAB | | + + + + + + | BUN | 75 (H) | 8 - 25 mg/dL | EXTERNAL | | | | | | LAB | | + + + + + + | Creatinine | 6.3 (H) | 0.50 - 1.00 | EXTERNAL | | | | | mg/dL | LAB | | + + + + + + | BUN/Creatin | 12 | | EXTERNAL | | | ine Ratio | | | LAB | | + + + + + + | Calcium | 8.4 (L) | 8.5 - 10.5 | EXTERNAL | | | | | mg/dL | LAB | | + + + + + + | Estimated | 7 (L)Comment: GFR <60: | mL/min/1.73m2 | EXTERNAL [...] | | | | | performed at [facility], [address] | | | | | | [facility], | | | | | | [place] [address] | | | | + + + [...] +---------+ + + XR Chest 1 Vw (03/27/2018 6:43 AM PDT) + + | Specimen | + + | | + + + + + | Impressions | Performed At | + + + | 1. Mild diffuse interstitial opacities to likely represent mild | | | interstitial edema. 2. Hazy perihilar and bibasilar airspace | | | disease, stable. 3. Small right-sided pleural effusion. | | | | | + + + + + + | Narrative | Performed At | + + + | [facility] XR CHEST 1 VIEW HISTORY: 37 years. Female. | | | Pneumonia TECHNIQUE: Single portable anterior view of the chest | | | was obtained. COMPARISON: 03/24/2018 FINDINGS: The heart is | | | stable in size. Right-sided dialysis catheter tip located in region | | | the right atrium. Mild diffuse interstitial opacities. Hazy perihilar | | | and bibasilar opacities. No pneumothorax. Small right-sided pleural | | | effusion. | | + + + + + | Procedure Note | + + | Prudencio, Rad Conversion - 01/18/2019 1:45 PM PDT [facility] PERE[facility]XR CHEST 1 VIEW | | HISTORY:37 years. Female. Pneumonia TECHNIQUE:Single portable anterior view of the chest | | was obtained. COMPARISON:03/24/2018 FINDINGS:The heart is stable in size. Right-sided | | dialysis catheter tip located in region the right atrium. Mild diffuse interstitial | | opacities. Hazy perihilar and bibasilar opacities. No pneumothorax. Small right-sided | | pleural effusion. IMPRESSION: 1. Mild diffuse interstitial opacities to likely | | represent mild interstitial edema.2. Hazy perihilar and bibasilar airspace disease, | | stable.3. Small right-sided pleural effusion. | |COMPARISON: | |03/24/2018 | | | |FINDINGS: | |The heart is stable in size. Right-sided dialysis catheter tip located in region the right atrium. Mild diffuse interstitial opacities. Hazy perihilar and bibasilar opacities. No pneu mothorax. Small right-sided pleural effusion. | | | |IMPRESSION: | |1. Mild diffuse interstitial opacities to likely represent mild interstitial edema. | |2. Hazy perihilar and bibasilar airspace disease, stable. | |3. Small right-sided pleural effusion. | | | | | + + External Lab: CBC (03/27/2018 4:23 AM PDT) + + + + + + | Component | Value | Ref Range | Performed | Pathologist | | | | | At | Signature | + + + + + + | WBC | 8.59 | 3.80 - 11.00 | EXTERNAL | | | | | K/uL | LAB | | + + + + + + | RED CELL | 2.96 (L) | 3.70 - 5.10 | EXTERNAL | | | COUNT | | M/uL | LAB | | + + + + + + | Hgb | 9.2 (L) | 11.3 - 15.5 | EXTERNAL | | | | | g/dL | LAB | | + + + + + + | Hematocrit, | 26.5 (L) | 34.0 - 46.0 % | EXTERNAL | | | POC | | | LAB | | + + + + + + | MCV | 89.6 | 80.0 - 100.0 fl | EXTERNAL | | | | | | LAB | | + + + + + + | MCH | 31.0 | 27.0 - 34.0 pg | EXTERNAL | | | | | | LAB | | + + + + + + | MCHC | 34.6 | 32.0 - 35.5 | EXTERNAL | | | | | g/dL | LAB | | + + + + + + | RDW-CV | 51.6 | 37 - 53 fl | EXTERNAL | | | | | | LAB | | + + + + + + | Platelet | 163 | 150 - 400 K/uL | EXTERNAL | | | Count | | | LAB | | | Plasma | | | | | + + + + + + | MPV | 10.0 | fl | EXTERNAL | | | | | | LAB | | + + + + + + | Differentia | AUTOMATED | | EXTERNAL | | | l Type | | | LAB | | + + + + + + | % Segmented | 77.39 | % | EXTERNAL | | | | | | LAB | | | Neutrophils | | | | | + + + + + + | % | 14.24 | % | EXTERNAL | | | Lymphocytes | | | LAB | | + + + + + + | % Monocytes | 6.28 | % | EXTERNAL | | | | | | LAB | | + + + + + + | % | 1.74 | % | EXTERNAL | | | Eosinophils | | | LAB | | + + + + + + | % Basophils | 0.35 | % | EXTERNAL | | | | | | LAB | | + + + + + + | Absolute | 6.65 | 1.90 - 7.40 | EXTERNAL | | | Segmented | | K/uL | LAB | | | Neutrophils | | | | | + + + + + + | Absolute | 1.22 | 1.00 - 3.90 | EXTERNAL | | | Lymphocytes | | K/uL | LAB | | + + + + + + | Absolute | 0.54 | 0.00 - 0.80 | EXTERNAL | | | Monocytes | | K/uL | LAB | | + + + + + + | Absolute | 0.15 | 0.00 - 0.50 | EXTERNAL | | | Eosinophils | | K/uL | LAB | | + + + + + + | Absolute | 0.03Comment: Testing | 0.00 - 0.10 | EXTERNAL | | | Basophils | performed at [facility], [address] | K/u[address] | LAB | | | | [address], | | | | | | [place] [address] | | | | + + + + + + + + | Specimen | + + | Blood specimen | | (specimen) | + + + +---------+ + + | Performing | Address | City/State/Zipcode | Phone Number | | Organization | | | | + +---------+ + + | EXTERNAL LAB | | | | + +---------+ + + Phosphorus (03/27/2018 4:23 AM PDT) + + + + + + | Component | Value | Ref Range | Performed | Pathologist | | | | | At | Signature | + + + + + + | PHOSPHORUS | 3.6Comment: Testing | 2.3 - 4.8 mg/dL | EXTERNAL | | | | performed at [facility], [address] | | LAB | | | | [address], | | | | | | [place] [address] | | | | + + + + + + + + | Specimen | + + | Blood specimen | | (specimen) | + + + +---------+ + + | Performing | Address | City/State/Zipcode | Phone Number | | Organization | | | | + +---------+ + + | EXTERNAL LAB | | | | + +---------+ + + Magnesium (03/27/2018 4:23 AM PDT) + + + + + + | Component | Value | Ref Range | Performed | Pathologist | | | | | At | Signature | + + + + + + | Magnesium | 2.5 (H)Comment: Testing | 1.7 - 2.4 mg/dL | EXTERNAL | | | | performed at [facility], [address] | | LAB | | | | [address], | | | | | | [place] [address] | | | | + + + [...] + +---------+ + + Basic Metabolic Panel (03/27/2018 4:23 AM PDT) + + + + + + | Component | Value | Ref Range | Performed | Pathologist | | | | | At | Signature | + + + + + + | Na | 135 | 135 - 145 | EXTERNAL | | | | | mmol/L | LAB | | + + + + + + | K | 3.6 | 3.5 - 4.9 | EXTERNAL | | | | | mmol/L | LAB | | + + + + + + | Cl | 98 (L) | 99 - 109 mmol/L | [...] + + + + | Glucose, | 146 (H) | 65 - 99 mg/dL | EXTERNAL | | | Fasting | | | LAB | | + + + + + + | BUN | 49 (H) | 8 - 25 mg/dL | EXTERNAL | | | | | | LAB | | + + + + + + | Creatinine | 5.1 (H) | 0.50 - 1.00 | EXTERNAL | | | | | mg/dL | LAB | | + + + + + + | BUN/Creatin | 10 | | EXTERNAL | | | ine Ratio | | | LAB | | + + + + + + | Calcium | 8.4 (L) | 8.5 - 10.5 | EXTERNAL | | | | | mg/dL | LAB | | + + + + + + | Estimated | 9 (L)Comment: GFR <60: | mL/min/1.73m2 | EXTERNAL [...] | | | | | performed at [facility], [address] | | | | | | [facility], | | | | | | [place] [address] | | | | + + + + + + + + | Specimen | + + | Blood specimen | | (specimen) | + + + +---------+ + + | Performing | Address | City/State/Zipcode | Phone Number | | Organization | | | | + +---------+ + + | EXTERNAL LAB | | | | + +---------+ + + Gram Stain, reflex Sputum Culture (03/26/2018 4:30 PM PDT) + + | Specimen | + + | Body fluid sample | | (specimen) | + + + + + | Narrative | Performed At | + + + | Specimen Description TRACHEAL ASPIRATE GRAM | EXTERNAL LAB | | STAIN GREATER THAN 10 WBCS/LPF | | | LESS THAN 10 | | | SEC/LPF 3+ | | | GRAM | | | POSITIVE COCCI 1+ | | | GRAM | | | NEGATIVE RODS CULTURE 3+ | | | NORMAL | | | UPPER RESPIRATORY SASKIA | | + + + + +---------+ + + | Performing | Address | City/State/Zipcode | Phone Number | | Organization | | | | + +---------+ + + | EXTERNAL LAB | | | | + +---------+ + + External Lab: CBC (03/26/2018 4:14 AM PDT) + + + + + + | Component | Value | Ref Range | Performed | Pathologist | | | | | At | Signature | + + + + + + | WBC | 6.68 | 3.80 - 11.00 | EXTERNAL | | | | | K/uL | LAB | | + + + + + + | RED CELL | 2.80 (L) | 3.70 - 5.10 | EXTERNAL | | | COUNT | | M/uL | LAB | | + + + + + + | Hgb | 8.7 (L) | 11.3 - 15.5 | EXTERNAL | | | | | g/dL | LAB | | + + + + + + | Hematocrit, | 25.3 (L) | 34.0 - 46.0 % | EXTERNAL | | | POC | | | LAB | | + + + + + + | MCV | 90.4 | 80.0 - 100.0 fl | EXTERNAL | | | | | | LAB | | + + + + + + | MCH | 31.0 | 27.0 - 34.0 pg | EXTERNAL | | | | | | LAB | | + + + + + + | MCHC | 34.3 | 32.0 - 35.5 | EXTERNAL | | | | | g/dL | LAB | | + + + + + + | RDW-CV | 53.4 (H) | 37 - 53 fl | EXTERNAL | | | | | | LAB | | + + + + + + | Platelet | 160 | 150 - 400 K/uL | EXTERNAL | | | Count | | | LAB | | | Plasma | | | | | + + + + + + | MPV | 8.9 | fl | EXTERNAL | | | | | | LAB | | + + + + + + | Differentia | AUTOMATED | | EXTERNAL | | | l Type | | | LAB | | + + + + + + | % Segmented | 71.16 | % | EXTERNAL | | | | | | LAB | | | Neutrophils | | | | | + + + + + + | % | 19.23 | % | EXTERNAL | | | Lymphocytes | | | LAB | | + + + + + + | % Monocytes | 7.30 | % | EXTERNAL | | | | | | LAB | | + + + + + + | % | 2.16 | % | EXTERNAL | | | Eosinophils | | | LAB | | + + + + + + | % Basophils | 0.15 | % | EXTERNAL | | | | | | LAB | | + + + + + + | Absolute | 4.76 | 1.90 - 7.40 | EXTERNAL | | | Segmented | | K/uL | LAB | | | Neutrophils | | | | | + + + + + + | Absolute | 1.29 | 1.00 - 3.90 | EXTERNAL | | | Lymphocytes | | K/uL | LAB | | + + + + + + | Absolute | 0.49 | 0.00 - 0.80 | EXTERNAL | | | Monocytes | | K/uL | LAB | | + + + + + + | Absolute | 0.14 | 0.00 - 0.50 | EXTERNAL | | | Eosinophils | | K/uL | LAB | | + + + + + + | Absolute | 0.01Comment: Testing | 0.00 - 0.10 | EXTERNAL | | | Basophils | performed at [facility] | [address] | LAB | | | | [address];[place] | | | | | | [address] | | | | + + + + + + + + | Specimen | + + | Blood specimen | | (specimen) | + + + +---------+ + + | Performing | Address | City/State/Zipcode | Phone Number | | Organization | | | | + +---------+ + + | EXTERNAL LAB | | | | + +---------+ + + Phosphorus (03/26/2018 4:14 AM PDT) + + + + + + | Component | Value | Ref Range | Performed | Pathologist | | | | | At | Signature | + + + + + + | PHOSPHORUS | 2.7Comment: Testing | 2.3 - 4.8 mg/dL | EXTERNAL | | | | performed at [facility];[address] | | LAB | | | | [address];[place], [place] | | | | | | [address] | | | | + + + + + + + + | Specimen | + + | Blood specimen | | (specimen) | + + + +---------+ + + | Performing | Address | City/State/Zipcode | Phone Number | | Organization | | | | + +---------+ + + | EXTERNAL LAB | | | | + +---------+ + + Magnesium (03/26/2018 4:14 AM PDT) + + + + + + | Component | Value | Ref Range | Performed | Pathologist | | | | | At | Signature | + + + + + + | Magnesium | 2.3Comment: Testing | 1.7 - 2.4 mg/dL | EXTERNAL | | | | performed at [facility] | | LAB | | | | [address];[place], [place] | | | | | | [address] | | | | + + + [...] + +---------+ + + Basic Metabolic Panel (03/26/2018 4:14 AM PDT) + + + + + + | Component | Value | Ref Range | Performed | Pathologist | | | | | At | Signature | + + + + + + | Na | 138 | 135 - 145 | EXTERNAL | | | | | mmol/L | LAB | | + + + + + + | K | 3.4 (L) | 3.5 - 4.9 | EXTERNAL | | | | | mmol/L | LAB | | + + + + + + | Cl | 104 | 99 - 109 mmol/L | EXTERNAL | | | | | | LAB | | + + + + + + | CO2 | 27 | 23 - 32 mmol/L | EXTERNAL | | | | | | LAB | | + + + + + + | Anion Gap | 11 | 5 - 20 mmol/L | EXTERNAL | | | | | | LAB | | + + + + + + | Glucose, | 123 (H) | 65 - 99 mg/dL | EXTERNAL | | | Fasting | | | LAB | | + + + + + + | BUN | 29 (H) | 8 - 25 mg/dL | EXTERNAL | | | | | | LAB | | + + + + + + | Creatinine | 3.8 (H) | 0.50 - 1.00 | EXTERNAL | | | | | mg/dL | LAB | | + + + + + + | BUN/Creatin | 8 | | EXTERNAL | | | ine Ratio | | | LAB | | + + + + + + | Calcium | 8.2 (L) | 8.5 - 10.5 | EXTERNAL | | | | | mg/dL | LAB | | + + + + + + | Estimated | 13 (L)Comment: GFR <60: | mL/min/1.73m2 | EXTERNAL [...] | | | | | performed at [facility] | | | | | | [facility];[place], [place] | | | | | | [address] | | | | + + + + + + + + | Specimen | + + | Blood specimen | | (specimen) | + + + +---------+ + + | Performing | Address | City/State/Zipcode | Phone Number | | Organization | | | | + +---------+ + + | EXTERNAL LAB | | | | + +---------+ + + External Lab: DAMIAN (03/25/2018 4:20 AM PDT) + + + + + + | Component | Value | Ref Range | Performed | Pathologist | | | | | At | Signature | + + + + + + | WBC | 7.81 | 3.80 - 11.00 | EXTERNAL | | | | | K/uL | LAB | | + + + + + + | RED CELL | 2.80 (L) | 3.70 - 5.10 | EXTERNAL | | | COUNT | | M/uL | LAB | | + + + + + + | Hgb | 8.6 (L) | 11.3 - 15.5 | EXTERNAL | | | | | g/dL | LAB | | + + + + + + | Hematocrit, | 25.2 (L) | 34.0 - 46.0 % | EXTERNAL | | | POC | | | LAB | | + + + + + + | MCV | 89.9 | 80.0 - 100.0 fl | EXTERNAL | | | | | | LAB | | + + + + + + | MCH | 30.7 | 27.0 - 34.0 pg | EXTERNAL | | | | | | LAB | | + + + + + + | MCHC | 34.2 | 32.0 - 35.5 | EXTERNAL | | | | | g/dL | LAB | | + + + + + + | RDW-CV | 54.3 (H) | 37 - 53 fl | EXTERNAL | | | | | | LAB | | + + + + + + | Platelet | 154Comment: | 150 - 400 K/uL | EXTERNAL | | | Count | | | LAB | | | Plasma | | | | | + + + + + + | MPV | 9.7Comment: | fl | EXTERNAL | | | | | | LAB | | + + + + + + | Differentia | AUTOMATED | | EXTERNAL | | | l Type | | | LAB | | + + + + + + | % Segmented | 71.16 | % | EXTERNAL | | | | | | LAB | | | Neutrophils | | | | | + + + + + + | % | 15.42 | % | EXTERNAL | | | Lymphocytes | | | LAB | | + + + + + + | % Monocytes | 9.99 | % | EXTERNAL | | | | | | LAB | | + + + + + + | % | 2.52 | % | EXTERNAL | | | Eosinophils | | | LAB | | + + + + + + | % Basophils | 0.91 | % | EXTERNAL | | | | | | LAB | | + + + + + + | Absolute | 5.55 | 1.90 - 7.40 | EXTERNAL | | | Segmented | | K/uL | LAB | | | Neutrophils | | | | | + + + + + + | Absolute | 1.20 | 1.00 - 3.90 | EXTERNAL | | | Lymphocytes | | K/uL | LAB | | + + + + + + | Absolute | 0.78 | 0.00 - 0.80 | EXTERNAL | | | Monocytes | | K/uL | LAB | | + + + + + + | Absolute | 0.20 | 0.00 - 0.50 | EXTERNAL | | | Eosinophils | | K/uL | LAB | | + + + + + + | Absolute | 0.07 | 0.00 - 0.10 | EXTERNAL | | | Basophils | | K/uL | LAB | | + + + + + + | RBC | NORMAL PLT MORPH | | EXTERNAL | | | Morphology | Comment: | | LAB | | | | 1+ | | | | | | ANISO | | | | | | | | | | + + + + + + | Differentia | SLIDE SCANNED, AGREES | | EXTERNAL | | | l Comments | WITH AUTOMATED | | LAB | | | | RESULTS.Comment: SLIDE | | | | | | SCANNED, AGREES WITH | | | | | | AUTOMATED | | | | | | RESULTS.Testing | | | | | | performed at [facility] | | | | | | [address];[place], [place] | | | | | | [address] | | | | + + + + + + + + | Specimen | + + | Blood specimen | | (specimen) | + + + +---------+ + + | Performing | Address | City/State/Zipcode | Phone Number | | Organization | | | | + +---------+ + + | EXTERNAL LAB | | | | + +---------+ + + Phosphorus (03/25/2018 4:20 AM PDT) + + + + + + | Component | Value | Ref Range | Performed | Pathologist | | | | | At | Signature | + + + + + + | PHOSPHORUS | 3.5Comment: Testing | 2.3 - 4.8 mg/dL | EXTERNAL | | | | performed at [facility], [address] | | LAB | | | | [address], | | | | | | [place] [address] | | | | + + + + + + + + | Specimen | + + | Blood specimen | | (specimen) | + + + +---------+ + + | Performing | Address | City/State/Zipcode | Phone Number | | Organization | | | | + +---------+ + + | EXTERNAL LAB | | | | + +---------+ + + Magnesium (03/25/2018 4:20 AM PDT) + + + + + + | Component | Value | Ref Range | Performed | Pathologist | | | | | At | Signature | + + + + + + | Magnesium | 2.4Comment: Testing | 1.7 - 2.4 mg/dL | EXTERNAL | | | | performed at [facility], [address] | | LAB | | | | [address], | | | | | | [place] [address] | | | | + + + [...] + +---------+ + + Basic Metabolic Panel (03/25/2018 4:20 AM PDT) + + + + + + | Component | Value | Ref Range | Performed | Pathologist | | | | | At | Signature | + + + + + + | Na | 144 | 135 - 145 | EXTERNAL | | | | | mmol/L | LAB | | + + + + + + | K | 3.6 | 3.5 - 4.9 | EXTERNAL | | | | | mmol/L | LAB | | + + + + + + | Cl | 108 | 99 - 109 mmol/L | EXTERNAL [...] + + + + | Glucose, | 94 | 65 - 99 mg/dL | EXTERNAL | | | Fasting | | | LAB | | + + + + + + | BUN | 43 (H) | 8 - 25 mg/dL | EXTERNAL | | | | | | LAB | | + + + + + + | Creatinine | 4.9 (H) | 0.50 - 1.00 | EXTERNAL | | | | | mg/dL | LAB | | + + + + + + | BUN/Creatin | 9 | | EXTERNAL | | | ine Ratio | | | LAB | | + + + + + + | Calcium | 7.3 (L) | 8.5 - 10.5 | EXTERNAL | | | | | mg/dL | LAB | | + + + + + + | Estimated | 10 (L)Comment: GFR <60: | mL/min/1.73m2 | EXTERNAL [...] | | | | | performed at [facility], [address] | | | | | | [facility], | | | | | | [place] [id number] | | | | + + + + + + + + | Specimen | + + | Blood specimen | | (specimen) | + + + +---------+ + + | Performing | Address | City/State/Zipcode | Phone Number | | Organization | | | | + +---------+ + + | EXTERNAL LAB | | | | + +---------+ + + POC Glucose (03/24/2018 9:45 PM PDT) + + + + + + | Component | Value | Ref Range | Performed | Pathologist | | | | | At | Signature | + + + + + + | Glucose, | 120 (H)Comment: Testing | 65 - 99 mg/dL | EXTERNAL | | | Fingerstick | performed at [facility] [place] | [address] | | | | [address];[place] | | | | | | [address] | | | | + + + + + + + + | Specimen | + + | | + + + +---------+ + + | Performing | Address | City/State/Zipcode | Phone Number | | Organization | | | | + +---------+ + + | EXTERNAL LAB | | | | + +---------+ + + Troponin I (03/24/2018 1:13 PM PDT) + + + + + + | Component | Value | Ref Range | Performed | Pathologist | | | | | At | Signature | + + + + + + | Troponin I, | 0.22 (H)Comment: 0.00 | 0.00 - 0.10 | EXTERNAL | | | Qual | to 0.10 CONSISTENT | ng/mL | LAB | | | | WITH NORMAL | | | | | | POPULATION0.11 to 0.60 | | | | | | CONSISTENT WITH | | | | | | INCREASED RISK FOR | | | | | | ADVERSE OUTCOMES> 0.60 | | | | | | CONSISTENT | | | | | | WITH WHO CRITERIA FOR | | | | | | ACUTE HI Testing | | | | | | performed at [facility] | | | | | | [address];[place], [place] | | | | | | [address] | | | | + + + [...] +---------+ + + XR Chest 1 Vw (03/24/2018 5:17 AM PDT) + + | Specimen | + + | | + + + + + | Impressions | Performed At | + + + | 1. Pulmonary opacities, right worse than left, slightly improved. | | | 2. Small pleural effusions. 3. Endotracheal tube, enteric tube, and | | | dialysis catheter in place. RADIA Electronically signed by | | | Glenn Morton MD on Mar 24 2018 5:37AM Referring Provider Line: | | | [phone] ID: [id number] | | + + + + + + | Narrative | Performed At | + + + | EXAM: CHEST RADIOGRAPHY EXAM DATE: 03/24/2018 05:18 AM. | | | CLINICAL HISTORY: Tube/line position. COMPARISON: XR CHEST 1 VIEW | | | 03/22/2018 10:06 PM. TECHNIQUE: 1 view. FINDINGS: | | | Lungs/Pleura: Bilateral pulmonary opacities, right worse than left, | | | perhaps slightly improved compared with the prior exam. Small pleural | | | effusions. Costophrenic angles are not completely included. No | | | pneumothorax identified. Mediastinum: Within exam limitations, the | | | cardiomediastinal contour is normal. Other: Endotracheal tube is | | | in place with the tip 4.2 cm above the hasmukh. Enteric tube tip is in | | | the stomach. Right-sided dialysis catheter at the cavoatrial junction. | | | | | + + + + + | Procedure Note | + + | Prudencio, Rad Conversion - 01/18/2019 1:45 PM PDT EXAM:CHEST RADIOGRAPHY EXAM DATE: | | 03/24/2018 05:18 AM. CLINICAL HISTORY: Tube/line position. COMPARISON: XR CHEST 1 VIEW | | 03/22/2018 10:06 PM. TECHNIQUE: 1 view. FINDINGS:Lungs/Pleura: Bilateral pulmonary | | opacities, right worse than left, perhaps slightly improved compared with the prior | | exam. Small pleural effusions. Costophrenic angles are not completely included. No | | pneumothorax identified. Mediastinum: Within exam limitations, the cardiomediastinal | | contour is normal. Other: Endotracheal tube is in place with the tip 4.2 cm above the | | hasmukh. Enteric tube tip is in the stomach. Right-sided dialysis catheter at the | | cavoatrial junction. IMPRESSION: 1. Pulmonary opacities, right worse than left, | | slightly improved.2. Small pleural effusions.3. Endotracheal tube, enteric tube, and | | dialysis catheter in place. RADIA Electronically signed by Glenn Morton MD on Mar 24 | | 2017 5:37AM Referring Provider Line: [phone] ID: [id number] | |Lungs/Pleura: Bilateral pulmonary opacities, right worse than left, perhaps slightly improv ed compared with the prior exam. Small pleural effusions. Costophrenic angles are not comple tely included. No pneumothorax identified. | | | |Mediastinum: Within exam limitations, the cardiomediastinal contour is normal. | | | |Other: Endotracheal tube is in place with the tip 4.2 cm above the hasmukh. Enteric tube tip is in the stomach. Right-sided dialysis catheter at the cavoatrial junction. | | | |IMPRESSION: | | | |1. Pulmonary opacities, right worse than left, slightly improved. | |2. Small pleural effusions. | |3. Endotracheal tube, enteric tube, and dialysis catheter in place. | | | |RADIA | | | | Electronically signed by Glenn Morton MD on Mar 24 2018 5:37AM Referring Provider Line: [phone] ID: [id number] | + + Troponin I (03/24/2018 4:59 AM PDT) + + + + + + | Component | Value | Ref Range | Performed | Pathologist | | | | | At | Signature | + + + + + + | Troponin I, | 0.328 (H)Comment: 0.00 | 0.00 - 0.10 | EXTERNAL | | | Qual | to 0.10 CONSISTENT | ng/mL | LAB | | | | WITH NORMAL | | | | | | POPULATION0.11 to 0.60 | | | | | | CONSISTENT WITH | | | | | | INCREASED RISK FOR | | | | | | ADVERSE OUTCOMES> 0.60 | | | | | | CONSISTENT | | | | | | WITH WHO CRITERIA FOR | | | | | | ACUTE HI Testing | | | | | | performed at [facility] | | | | | | [facility];[place], [place] | | | | | | [address] | | | | + + + [...] + +---------+ + + External Lab: CBC (03/24/2018 4:56 AM PDT) + + + + + + | Component | Value | Ref Range | Performed | Pathologist | | | | | At | Signature | + + + + + + | WBC | 6.46 | 3.80 - 11.00 | EXTERNAL | | | | | K/uL | LAB | | + + + + + + | RED CELL | 2.67 (L) | 3.70 - 5.10 | EXTERNAL | | | COUNT | | M/uL | LAB | | + + + + + + | Hgb | 8.2 (L) | 11.3 - 15.5 | EXTERNAL | | | | | g/dL | LAB | | + + + + + + | Hematocrit, | 23.9 (L) | 34.0 - 46.0 % | EXTERNAL | | | POC | | | LAB | | + + + + + + | MCV | 89.6 | 80.0 - 100.0 fl | EXTERNAL | | | | | | LAB | | + + + + + + | MCH | 30.7 | 27.0 - 34.0 pg | EXTERNAL | | | | | | LAB | | + + + + + + | MCHC | 34.3 | 32.0 - 35.5 | EXTERNAL | | | | | g/dL | LAB | | + + + + + + | RDW-CV | 52.1 | 37 - 53 fl | EXTERNAL | | | | | | LAB | | + + + + + + | Platelet | 137 (L) | 150 - 400 K/uL | EXTERNAL [...] + + + | % Segmented | 70.08 | % | EXTERNAL | | | | | | LAB | | | Neutrophils | | | | | + + + + + + | % | 20.53 | % | EXTERNAL | | | Lymphocytes | | | LAB | | + + + + + + | % Monocytes | 7.04 | % | EXTERNAL | | | | | | LAB | | + + + + + + | % | 2.07 | % | EXTERNAL | | | Eosinophils | | | LAB | | + + + + + + | % Basophils | 0.28 | % | EXTERNAL | | | | | | LAB | | + + + + + + | Absolute | 4.53 | 1.90 - 7.40 | EXTERNAL | | | Segmented | | K/uL | LAB | | | Neutrophils | | | | | + + + + + + | Absolute | 1.33 | 1.00 - 3.90 | EXTERNAL | | | Lymphocytes | | K/uL | LAB | | + + + + + + | Absolute | 0.46 | 0.00 - 0.80 | EXTERNAL | | | Monocytes | | K/uL | LAB | | + + + + + + | Absolute | 0.13 | 0.00 - 0.50 | EXTERNAL | | | Eosinophils | | K/uL | LAB | | + + + + + + | Absolute | 0.02Comment: Testing | 0.00 - 0.10 | EXTERNAL | | | Basophils | performed at [facility];[address] | [address] | LAB | | | | [address];[place], [place] | | | | | | [address] | | | | + + + + + + + + | Specimen | + + | Blood specimen | | (specimen) | + + + +---------+ + + | Performing | Address | City/State/Zipcode | Phone Number | | Organization | | | | + +---------+ + + | EXTERNAL LAB | | | | + +---------+ + + Phosphorus (03/24/2018 4:56 AM PDT) + + + + + + | Component | Value | Ref Range | Performed | Pathologist | | | | | At | Signature | + + + + + + | PHOSPHORUS | 2.8Comment: Testing | 2.3 - 4.8 mg/dL | EXTERNAL | | | | performed at [facility] | | LAB | | | | [address];[place] | | | | | | [address] | | | | + + + + + + + + | Specimen | + + | Blood specimen | | (specimen) | + + + +---------+ + + | Performing | Address | City/State/Zipcode | Phone Number | | Organization | | | | + +---------+ + + | EXTERNAL LAB | | | | + +---------+ + + Magnesium (03/24/2018 4:56 AM PDT) + + + + + + | Component | Value | Ref Range | Performed | Pathologist | | | | | At | Signature | + + + + + + | Magnesium | 2.1Comment: Testing | 1.7 - 2.4 mg/dL | EXTERNAL | | | | performed at [facility];[address] | | LAB | | | | [address];[place], [place] | | | | | | [address] | | | | + + + [...] + +---------+ + + Basic Metabolic Panel (03/24/2018 4:56 AM PDT) + + + + + + | Component | Value | Ref Range | Performed | Pathologist | | | | | At | Signature | + + + + + + | Na | 145 | 135 - 145 | EXTERNAL | | | | | mmol/L | LAB | | + + + + + + | K | 3.2 (L) | 3.5 - 4.9 | EXTERNAL | | | | | mmol/L | LAB | | + + + + + + | Cl | 110 (H) | 99 - 109 mmol/L | EXTERNAL | | | | | | LAB | | + + + + + + | CO2 | 26 | 23 - 32 mmol/L | EXTERNAL | | | | | | LAB | | + + + + + + | Anion Gap | 12 | 5 - 20 mmol/L | EXTERNAL | | | | | | LAB | | + + + + + + | Glucose, | 101 (H) | 65 - 99 mg/dL | EXTERNAL | | | Fasting | | | LAB | | + + + + + + | BUN | 33 (H) | 8 - 25 mg/dL | EXTERNAL | | | | | | LAB | | + + + + + + | Creatinine | 3.8 (H) | 0.50 - 1.00 | EXTERNAL | | | | | mg/dL | LAB | | + + + + + + | BUN/Creatin | 9 | | EXTERNAL | | | ine Ratio | | | LAB | | + + + + + + | Calcium | 8.2 (L) | 8.5 - 10.5 | EXTERNAL | | | | | mg/dL | LAB | | + + + + + + | Estimated | 13 (L)Comment: GFR <60: | mL/min/1.73m2 | EXTERNAL [...] | | | | | | MDRD [facility] traceable | | | | | | equation.Testing | | | | | | performed at [facility] | | | | | | [facility];[place], [place] | | | | | | [address] | | | | + + + [...] + +---------+ + + External Lab: CBC (03/23/2018 2:26 AM PDT) + + + + + + | Component | Value | Ref Range | Performed | Pathologist | | | | | At | Signature | + + + + + + | WBC | 11.12 (H) | 3.80 - 11.00 | EXTERNAL | | | | | K/uL | LAB | | + + + + + + | RED CELL | 3.06 (L) | 3.70 - 5.10 | EXTERNAL | | | COUNT | | M/uL | LAB | | + + + + + + | Hgb | 9.1 (L) | 11.3 - 15.5 | EXTERNAL | | | | | g/dL | LAB | | + + + + + + | Hematocrit, | 27.4 (L) | 34.0 - 46.0 % | EXTERNAL | | | POC | | | LAB | | + + + + + + | MCV | 89.3 | 80.0 - 100.0 fl | EXTERNAL | | | | | | LAB | | + + + + + + | MCH | 29.6 | 27.0 - 34.0 pg | EXTERNAL | | | | | | LAB | | + + + + + + | MCHC | 33.1 | 32.0 - 35.5 | EXTERNAL | | | | | g/dL | LAB | | + + + + + + | RDW-CV | 51.2 | 37 - 53 fl | EXTERNAL | | | | | | LAB | | + + + + + + | Platelet | 169 | 150 - 400 K/uL | EXTERNAL | | | Count | | | LAB | | | Plasma | | | | | + + + + + + | MPV | 9.5 | fl | EXTERNAL | | | | | | LAB | | + + + + + + | Differentia | AUTOMATED | | EXTERNAL | | | l Type | | | LAB | | + + + + + + | % Segmented | 77.27 | % | EXTERNAL | | | | | | LAB | | | Neutrophils | | | | | + + + + + + | % | 15.61 | % | EXTERNAL | | | Lymphocytes | | | LAB | | + + + + + + | % Monocytes | 6.32 | % | EXTERNAL | | | | | | LAB | | + + + + + + | % | 0.36 | % | EXTERNAL | | | Eosinophils | | | LAB | | + + + + + + | % Basophils | 0.44 | % | EXTERNAL | | | | | | LAB | | + + + + + + | Absolute | 8.59 (H) | 1.90 - 7.40 | EXTERNAL | | | Segmented | | K/uL | LAB | | | Neutrophils | | | | | + + + + + + | Absolute | 1.74 | 1.00 - 3.90 | EXTERNAL | | | Lymphocytes | | K/uL | LAB | | + + + + + + | Absolute | 0.70 | 0.00 - 0.80 | EXTERNAL | | | Monocytes | | K/uL | LAB | | + + + + + + | Absolute | 0.04 | 0.00 - 0.50 | EXTERNAL | | | Eosinophils | | K/uL | LAB | | + + + + + + | Absolute | 0.05Comment: Testing | 0.00 - 0.10 | EXTERNAL | | | Basophils | performed at [facility];[address] | [address] | LAB | | | | [address];[place], [place] | | | | | | [address] | | | | + + + + + + + + | Specimen | + + | Blood specimen | | (specimen) | + + + +---------+ + + | Performing | Address | City/State/Zipcode | Phone Number | | Organization | | | | + +---------+ + + | EXTERNAL LAB | | | | + +---------+ + + Phosphorus (03/23/2018 2:26 AM PDT) + + + + + + | Component | Value | Ref Range | Performed | Pathologist | | | | | At | Signature | + + + + + + | PHOSPHORUS | 4.8Comment: Testing | 2.3 - 4.8 mg/dL | EXTERNAL | | | | performed at [facility];[address] | | LAB | | | | [address];[place], [place] | | | | | | [address] | | | | + + + + + + + + | Specimen | + + | Blood specimen | | (specimen) | + + + +---------+ + + | Performing | Address | City/State/Zipcode | Phone Number | | Organization | | | | + +---------+ + + | EXTERNAL LAB | | | | + +---------+ + + Magnesium (03/23/2018 2:26 AM PDT) + + + + + + | Component | Value | Ref Range | Performed | Pathologist | | | | | At | Signature | + + + + + + | Magnesium | 2.1Comment: Testing | 1.7 - 2.4 mg/dL | EXTERNAL | | | | performed at [facility];[address] | | LAB | | | | [address];[place] | | | | | | [address] | | | | + + + [...] + +---------+ + + Basic Metabolic Panel (03/23/2018 2:26 AM PDT) + + + + + + | Component | Value | Ref Range | Performed | Pathologist | | | | | At | Signature | + + + + + + | Na | 141 | 135 - 145 | EXTERNAL | | | | | mmol/L | LAB | | + + + + + + | K | 3.5 | 3.5 - 4.9 | EXTERNAL | | | | | mmol/L | LAB | | + + + + + + | Cl | 108 | 99 - 109 mmol/L | EXTERNAL | | | | | | LAB | | + + + + + + | CO2 | 20 (L) | 23 - 32 mmol/L | EXTERNAL | | | | | | LAB | | + + + + + + | Anion Gap | 16 | 5 - 20 mmol/L | EXTERNAL | | | | | | LAB | | + + + + + + | Glucose, | 107 (H) | 65 - 99 mg/dL | EXTERNAL | | | Fasting | | | LAB | | + + + + + + | BUN | 73 (H) | 8 - 25 mg/dL | EXTERNAL | | | | | | LAB | | + + + + + + | Creatinine | 5.7 (H) | 0.50 - 1.00 | EXTERNAL | | | | | mg/dL | LAB | | + + + + + + | BUN/Creatin | 13 | | EXTERNAL | | | ine Ratio | | | LAB | | + + + + + + | Calcium | 7.8 (L) | 8.5 - 10.5 | EXTERNAL | | | | | mg/dL | LAB | | + + + + + + | Estimated | 8 (L)Comment: GFR <60: | mL/min/1.73m2 | EXTERNAL [...] | | | | | performed at [facility];[address] | | | | | | [facility];[place], [place] | | | | | | [address] | | | | + + + [...] + Drugs Of ABuse Screen, Urine (H) (03/22/2018 10:12 PM PDT) + + + + + [...] + + + + | Benzodiazep | POSITIVE (A)Comment: | | EXTERNAL | | | jony [...] | | | | | performed at [facility] | | | | | | [facility];[place], [place] | | | | | | [address] | | | | + + + + + + + + | Specimen | + + | | + + + +---------+ + + | Performing | Address | City/State/Zipcode | Phone Number | | Organization | | | | + +---------+ + + | EXTERNAL LAB | | | | + +---------+ + + XR Chest 1 Vw (03/22/2018 10:06 PM PDT) + + | Specimen | + + | | + + + + + | Impressions | Performed At | + + + | 1. Unchanged appearance of endotracheal tube. Consider retraction | | | approximately 2 cm. 2. Unchanged right internal jugular approach | | | dual-lumen dialysis catheter. 3. Newly seen enteric tube. | | | 4. Slightly improved bilateral airspace disease, potentially | | | pulmonary edema, versus less likely pneumonia. Electronically | | | signed by Haile Kennedy MD on 03/22/2018 10:11 PM | | + + + + + + | Narrative | Performed At | + + + | [facility] XR CHEST 1 VIEW 03/22/2018 10:06 PM | | | HISTORY: Acute respiratory failure, status post intubation. | | | TECHNIQUE: AP chest radiograph 3 hours. COMPARISON: Chest | | | radiograph March 18, 2018. FINDINGS: An endotracheal tube is | | | again noted with the tip approximately 18 mm from the hasmukh, | | | relatively unchanged. A right subclavian approach central dual-lumen | | | dialysis catheter is again seen with the tip overlying the right | | | ventricle. An enteric tube is newly noted, coursing through the | | | stomach and off the image inferiorly. Bilateral airspace opacities are | | | again noted and emanate from the bilateral parahilar regions, | | | slightly improved compared to the previous study. No pneumothorax is | | | seen. Mild blunting of the costophrenic angles is noted. | | + + + + + | Procedure Note | + + | Prudencio, Rad Conversion - 01/18/2019 1:45 PM PDT [facility] CHEST 1 | | VIEW03/22/2018 10:06 PM HISTORY:Acute respiratory failure, status post intubation. | | TECHNIQUE:AP chest radiograph 2203 hours. COMPARISON:Chest radiograph March 18, 2018. | | FINDINGS:An endotracheal tube is again noted with the tip approximately 18 mm from the | | hasmukh, relatively unchanged. A right subclavian approach central dual-lumen dialysis | | catheter is again seen with the tip overlying the right ventricle. An enteric tube is | | newly noted, coursing through the stomach and off the image inferiorly. Bilateral | | airspace opacities are again noted and emanate from the bilateral parahilar regions, | | slightly improved compared to the previous study. No pneumothorax is seen. Mild blunting | | of the costophrenic angles is noted. IMPRESSION: 1. Unchanged appearance of | | endotracheal tube. Consider retraction approximately 2 cm. 2. Unchanged right internal | | jugular approach dual-lumen dialysis catheter. 3. Newly seen enteric tube. 4. Slightly | | improved bilateral airspace disease, potentially pulmonary edema, versus less likely | | pneumonia. | |An endotracheal tube is again noted with the tip approximately 18 mm from the hasmukh, relat ively unchanged. A right subclavian approach central dual-lumen dialysis catheter is again s een with the tip overlying the right ventricle. An enteric tube is | |newly noted, coursing through the stomach and off the image inferiorly. Bilateral airspace opacities are again noted and emanate from the bilateral parahilar regions, slightly improve d compared to the previous study. No pneumothorax is seen. Mild | |blunting of the costophrenic angles is noted. | | | |IMPRESSION: | |1. Unchanged appearance of endotracheal tube. Consider retraction approximately 2 cm. | | | |2. Unchanged right internal jugular approach dual-lumen dialysis catheter. | | | |3. Newly seen enteric tube. | | | |4. Slightly improved bilateral airspace disease, potentially pulmonary edema, versus less likely pneumonia. | | | | | + + External Lab: CBC (03/22/2018 9:51 PM PDT) + + + + + + | Component | Value | Ref Range | Performed | Pathologist | | | | | At | Signature | + + + + + + | WBC | 17.58 (H) | 3.80 - 11.00 | EXTERNAL | | | | | K/uL | LAB | | + + + + + + | RED CELL | 3.37 (L) | 3.70 - 5.10 | EXTERNAL | | | COUNT | | M/uL | LAB | | + + + + + + | Hgb | 10.1 (L) | 11.3 - 15.5 | EXTERNAL | | | | | g/dL | LAB | | + + + + + + | Hematocrit, | 29.7 (L) | 34.0 - 46.0 % | EXTERNAL | | | POC | | | LAB | | + + + + + + | MCV | 88.0 | 80.0 - 100.0 fl | EXTERNAL | | | | | | LAB | | + + + + + + | MCH | 30.0 | 27.0 - 34.0 pg | EXTERNAL | | | | | | LAB | | + + + + + + | MCHC | 34.1 | 32.0 - 35.5 | EXTERNAL | | | | | g/dL | LAB | | + + + + + + | RDW-CV | 50.3 | 37 - 53 fl | EXTERNAL | | | | | | LAB | | + + + + + + | Platelet | 199 | 150 - 400 K/uL | EXTERNAL | | | Count | | | LAB | | | Plasma | | | | | + + + + + + | MPV | 9.3 | fl | EXTERNAL | | | | | | LAB | | + + + + + + | Differentia | AUTOMATED | | EXTERNAL | | | l Type | | | LAB | | + + + + + + | % Segmented | 85.69 | % | EXTERNAL | | | | | | LAB | | | Neutrophils | | | | | + + + + + + | % | 7.67 | % | EXTERNAL | | | Lymphocytes | | | LAB | | + + + + + + | % Monocytes | 6.05 | % | EXTERNAL | | | | | | LAB | | + + + + + + | % | 0.14 | % | EXTERNAL | | | Eosinophils | | | LAB | | + + + + + + | % Basophils | 0.45 | % | EXTERNAL | | | | | | LAB | | + + + + + + | Absolute | 15.06 (H) | 1.90 - 7.40 | EXTERNAL | | | Segmented | | K/uL | LAB | | | Neutrophils | | | | | + + + + + + | Absolute | 1.35 | 1.00 - 3.90 | EXTERNAL | | | Lymphocytes | | K/uL | LAB | | + + + + + + | Absolute | 1.06 (H) | 0.00 - 0.80 | EXTERNAL | | | Monocytes | | K/uL | LAB | | + + + + + + | Absolute | 0.03 | 0.00 - 0.50 | EXTERNAL | | | Eosinophils | | K/uL | LAB | | + + + + + + | Absolute | 0.08 | 0.00 - 0.10 | EXTERNAL | | | Basophils | | K/uL | LAB | | + + + + + + | RBC | NORMAL PLT MORPH | | EXTERNAL | | | Morphology | Comment: | | LAB | | | | 1+ | | | | | | ANISO | | | | | | 1+ | | | | | | HYPO | | | | | | | | | | + + + + + + | Platelet | ADEQUATE | | EXTERNAL | | | Estimate | | | LAB | | + + + + + + | Differentia | SLIDE SCANNED, AGREES | | EXTERNAL | | | l Comments | WITH AUTOMATED | | LAB | | | | RESULTS.Comment: Testing | | | | | | performed at [facility];[address] | | | | | | [address];[place] | | | | | | [address] | | | | + + + + + + + + | Specimen | + + | Blood specimen | | (specimen) | + + + +---------+ + + | Performing | Address | City/State/Zipcode | Phone Number | | Organization | | | | + +---------+ + + | EXTERNAL LAB | | | | + +---------+ + + Phosphorus (03/22/2018 9:51 PM PDT) + + + + + + | Component | Value | Ref Range | Performed | Pathologist | | | | | At | Signature | + + + + + + | PHOSPHORUS | 4.9 (H)Comment: Testing | 2.3 - 4.8 mg/dL | EXTERNAL | | | | performed at [facility];[address] | | LAB | | | | [address];[place], [place] | | | | | | [address] | | | | + + + + + + + + | Specimen | + + | Blood specimen | | (specimen) | + + + +---------+ + + | Performing | Address | City/State/Zipcode | Phone Number | | Organization | | | | + +---------+ + + | EXTERNAL LAB | | | | + +---------+ + + Magnesium (03/22/2018 9:51 PM PDT) + + + + + + | Component | Value | Ref Range | Performed | Pathologist | | | | | At | Signature | + + + + + + | Magnesium | 2.2Comment: Testing | 1.7 - 2.4 mg/dL | EXTERNAL | | | | performed at [facility];[address] | | LAB | | | | [address];[place] | | | | | | [address] | | | | + + + + + + + + | Specimen | + + | Blood specimen | | (specimen) | + + + +---------+ + + | Performing | Address | City/State/Zipcode | Phone Number | | Organization | | | | + +---------+ + + | EXTERNAL LAB | | | | + +---------+ + + Lactic Acid (03/22/2018 9:51 PM PDT) + + + + + + | Component | Value | Ref Range | Performed | Pathologist | | | | | At | Signature | + + + + + + | Lactate | 1.9Comment: Testing | 0.4 - 2.0 | EXTERNAL | | | | performed at [facility];[address] | mmol/L | LAB | | | | [address];[place], [place] | | | | | | [address] | | | | + + + [...] + +---------+ + + Comprehensive Metabolic Panel (03/22/2018 9:51 PM PDT) + + + + + + | Component | Value | Ref Range | Performed | Pathologist | | | | | At | Signature | + + + + + + | Na | 139 | 135 - 145 | EXTERNAL | | | | | mmol/L | LAB | | + + + + + + | K | 2.9 (L) | 3.5 - 4.9 | EXTERNAL | | | | | mmol/L | LAB | | + + + + + + | Cl | 105 | 99 - 109 mmol/L | EXTERNAL | | | | | | LAB | | + + + + + + | CO2 | 19 (L) | 23 - 32 mmol/L | EXTERNAL | | | | | | LAB | | + + + + + + | Anion Gap | 17 | 5 - 20 mmol/L | EXTERNAL | | | | | | LAB | | + + + + + + | Glucose, | 160 (H) | 65 - 99 mg/dL | EXTERNAL | | | Fasting | | | LAB | | + + + + + + | BUN | 71 (H) | 8 - 25 mg/dL | EXTERNAL | | | | | | LAB | | + + + + + + | Creatinine | 5.6 (H) | 0.50 - 1.00 | EXTERNAL | | | | | mg/dL | LAB | | + + + + + + | BUN/Creatin | 13 | | EXTERNAL | | | ine Ratio | | | LAB | | + + + + + + | Calcium | 8.0 (L) | 8.5 - 10.5 | EXTERNAL | | | | | mg/dL | LAB | | + + + + + + | Protein, | 6.9 | 6.3 - 8.2 g/dL | EXTERNAL | | | Total | | | LAB | | + + + + + + | Albumin | 2.9 (L) | 3.6 - 5.0 g/dL | EXTERNAL | | | | | | LAB | | + + + + + + | Globulin | 4.0 | 1.3 - 4.9 g/dL | EXTERNAL | | | | | | LAB | | + + + + + + | A/G Ratio | 0.7 (L) | 1.0 - 2.4 | EXTERNAL | | | | | | LAB | | + + + + + + | Bilirubin | 0.6 | 0.1 - 1.5 mg/dL | EXTERNAL | | | Total | | | LAB | | + + + + + + | ALP, | 92 | 35 - 115 U/L | EXTERNAL | | | External | | | LAB | | + + + + + + | AST | 24 | 10 - 45 U/L | EXTERNAL | | | | | | LAB | | + + + + + + | ALT | 26 | 10 - 65 U/L | EXTERNAL | | | | | | LAB | | + + + + + + | Estimated | 8 (L)Comment: GFR <60: | mL/min/1.73m2 | EXTERNAL [...] | | | | | | MDRD IDMA traceable | | | | | | equation.Testing | | | | | | performed [place] [facility] [id number] | | | | | [facility];[place], [place] | | | | | | [id number] | | | | + + + + + + + + | Specimen | + + | Blood specimen | | (specimen) | + + + +---------+ + + | Performing | Address | City/State/Zipcode | Phone Number | | Organization | | | | + +---------+ + + | EXTERNAL LAB | | | | + +---------+ + + Gram Stain, reflex Sputum Culture (03/22/2018 9:40 PM PDT) + + | Specimen | + + | Body fluid sample | | (specimen) | + + + + + | Narrative | Performed At | + + + | Specimen Description TRACHEAL ASPIRATE GRAM | EXTERNAL LAB | | STAIN GREATER THAN 10 WBCS/LPF | | | LESS THAN 10 | | | SEC/LPF 3+ | | | GRAM | | | POSITIVE COCCI CULTURE 3+ | | | NORMAL | | | UPPER RESPIRATORY SASKIA | | + + + + +---------+ + + | Performing | Address | City/State/Zipcode | Phone Number | | Organization | | | | + +---------+ + + | EXTERNAL LAB | | | | + +---------+ + + MRSA NAAT (03/22/2018 8:40 PM PDT) + + | Specimen | + + | | + + + + + | Narrative | Performed At | + + + | SOURCE [facility](NOSE) MRSA | EXTERNAL LAB | | PCR POSITIVE for MRSA by | | | PCRAbnormal Testing performed at [facility] [place] [address];[place] [id number] | | + + + + +---------+ + + | Performing | Address | City/State/Zipcode | Phone Number | | Organization | | | | + +---------+ + + | EXTERNAL LAB | | | | + +---------+ + + POC Glucose (03/22/2018 8:09 PM PDT) + + + + + + | Component | Value | Ref Range | Performed | Pathologist | | | | | At | Signature | + + + + + + | Glucose, | 164 (H)Comment: Testing | 65 - 99 mg/dL | EXTERNAL | | | Fingerstick | performed at [facility] | | LAB | | | | [address];[place], [place] | | | | | | [address] | | | | + + + [...] + | Diagnosis | + + | Agitation Other and unspecified special symptom or syndrome, not elsewhere classified | + + | Methamphetamine abuse (HCC) Nondependent amphetamine or related acting | | sympathomimetic abuse, unspecified | + + | Acute respiratory failure with hypoxia and hypercapnia (HCC) | + + documented in this encounter Additional Health Concerns + + + + | Infection | Noted Time | Resolved Time | + + + + | Methicillin-resistant Staphylococcus aureus | 03/23/2018 12:00 AM | | | | PDT | | + + + + documented as of this encounter
--- OUTSIDE RECORDS SUMMARY | ~2019-05-10 | XMS | Encounter Summary ---
Demographics + + + | Address | [address] | | | [place] [address] | + + + | Home Phone | | + + + | Preferred Language | Unknown | + + + | Marital Status | | + + + | Scientology Affiliation | 1038 | + + + | Race | Unknown | + + + | Ethnic Group | Unknown | + + + Author + + + | Author | [facility] | | | and Laloana | + + + | Organization | [facility] | | | and [place] [...] [place] | | | | | [address] | | + + + + + Care Team Providers + +------+ + | Care Postpartum Nurse Name | Role | Phone | + +------+ + PCP | Unavailable | + +------+ + Reason for Visit +--------+ + | Reason | Comments | +--------+ + | Other | | +--------+ + Encounter Details +--------+ + + + + | Date | Type | Department | Care Team | Description | +--------+ + + + + | 10/28/ | Telephone | [facility] | Xavier Gallagher | Other | | 2017 | | SURGERY [address] | MD Lino, FACS [address] | | | | | [address] [place], [place] | [address] [facility] | | | | | [address] | [place] [address] | | | | | [phone] | [phone] | | | | | | | [...]
--- OUTSIDE RECORDS SUMMARY | ~2019-05-10 | XMS | Encounter Summary ---
Demographics + + + | Address | [address] | | | [place] [address] | + + + | Home Phone | | + + + | Preferred Language | Unknown | + + + | Marital Status | | + + + | Jewish Affiliation | 1038 | + + + | Race | Unknown | + + + | Ethnic Group | Unknown | + + + Author + + + | Author | [facility] | | | and [place]aloana | + + + | Organization | [facility] | | | and [...] [place] | | | | | [address] | | + + + + + Care Team Providers + +------+ + | Care Literacy Consultant Name | Role | Phone | + [...] | | [address] | [place] | | | | | [place], [place] | [place], [place] | | | | | [address] | [address] | | | | | [phone] | | | +--------+ + + + [...]
--- OUTSIDE RECORDS SUMMARY | ~2019-05-10 | XMS | Encounter Summary ---
Demographics + + + | Address | [address] | | | [place] [address] | + + + | Home Phone | | + + + | Preferred Language | Unknown | + + + | Marital Status | | + + + | Sabianist Affiliation | 1038 | + + + | Race | Unknown | + + + | Ethnic Group | Unknown | + + + Author + + + | Author | [facility] | | | and Laloana | + + + | Organization | [facility] | | | and [...] [place] | | | | | [address] | | + + + + + Care Team Providers + +------+ + | Care Principal Hardware Architect Name | Role | Phone | + +------+ + PCP | Unavailable | + +------+ + Encounter Details +--------+ + + + + | Date | Type | Department | Care Team | Description | +--------+ + + + + | 03/13/ | Hospital | [facility] | Lili Kovacs | | | 1996 | Encounter | [facility] | | | [facility] [address] [facility] [address] | | | [address] [place], [place] | [address] | | | | | [address] | [place] [address] | | | | | [phone] | [phone] Vickie, | | | | | | MD Luanne [address] | | | | | | [address] [place], [place] | | | | | | [address] | | | | | | | [...]
--- OUTSIDE RECORDS SUMMARY | ~2019-05-10 | XMS | Encounter Summary ---
Demographics + + + | Address | [address] | | | [place] [address] | + + + | Home Phone | | + + + | Preferred Language | Unknown | + + + | Marital Status | | + + + | Mu-Ism Affiliation | 1038 | + + + | Race | Unknown | + + + | Ethnic Group | Unknown | + + + Author + + + | Author | [facility] | | | and Laloana | + + + | Organization | [facility] | | [...] [place] | | | | | [address] | | + + + + + Care Team Providers + +------+ + | Care Neon Sign Servicer Name | Role | Phone | + +------+ + PCP | Unavailable | + +------+ + Encounter Details +--------+ + + + + | Date | Type | Department | Care Team | Description | +--------+ + + + + | 04/02/ | Orders Only | [facility] | Anna Juan N, | | | 2017 | | [address] | [address] | | | | | [place], [place] | [place], | | | | | [address] | [place] [address] | | | | | [phone] | [phone] | | | | | | | [...] + +--------+ + + + | IRON AND IRON | Routin | 04/02/2018 | | Results for this | | BINDING CAPACITY | e | 4:03 AM | | procedure are in the | | | | PDT | | results section. | + +--------+ + + + documented in this encounter Results Iron and Iron Binding Capacity (04/02/2018 4:03 AM PDT) + +---------+ + + + | Component | Value | Ref Range | Performed | Pathologist | | | | | At | Signature | + +---------+ + + + | Iron | 28 (L) | 30 - 180 ug/dL | EXTERNAL | | | | | | LAB | | + +---------+ + + + | TIBC | 149 (L) | 260 - 490 ug/dL | EXTERNAL | | | | | | LAB | | + +---------+ + + + | Iron | 19 | 15 - 50 % | EXTERNAL | | | Saturation | | | LAB | | + +---------+ + + + + + | Specimen | + + | | + + + + + | Narrative | Performed At | + + + | Attending/Visit Provider: ADAMS CHARANYA, , , , , | EXTERNAL LAB | | [place], | | + + + + +---------+ [...]
--- OUTSIDE RECORDS SUMMARY | ~2019-05-10 | XMS | Encounter Summary ---
Demographics + + + | Address | [address] | | | [place] [address] | + + + | Home Phone | | + + + | Preferred Language | Unknown | + + + | Marital Status | | + + + | Spiritism Affiliation | 1038 | + + + | Race | Unknown | + + + | Ethnic Group | Unknown | + + + Author + + + | Author | [facility] | | | and [place] | + + + | Organization | [facility] | | | and [place] | [...] [place] | | | | | [address] | | + + + + + Care Team Providers + +------+ + | Care Supervisor Film Processing Name | Role | Phone | + [...] | | [address] | [place] | | | | | [place], [place] | [place], [place] | | | | | [address] | [address] | | | | | [phone] | | | +--------+ + + + [...]
--- OUTSIDE RECORDS SUMMARY | ~2019-05-10 | XMS | Encounter Summary ---
Demographics + + + | Address | [address] | | | [place] [address] | + + + | Home Phone [...] + | Author | [facility] | | | and [place] | + + + | Organization | [facility] | | | and [...] + | Beverly Perez | ECON | [place] | | | | | [address] | | + + + + + Care Team Providers + +------+ + | Care High School Industrial Arts Teacher Name | Role | Phone | + [...] | | | | | injury) | [place] | [place] | | | | | ([facility]) | [address] [place] | | | | | Procedures | [place], [place] | [place] | | | | | [place] OFFICE | [address] | [address] Phone: | | | | | OUTPATIENT | Phone: | [phone] | | | | | VISIT 25 | [phone] | Fax: | | | | | MINUTES | Fax: | [phone] | | | | | | [phone] | | +--------+--------+ + + + + Encounter Details +--------+ + + + + | Date | Type | Department | Care Team | Description | +--------+ + + + + | 01/17/ | Off-Site | [facility] | Jhoana Barreto | End stage renal | | 2018 | Visit | NEPHROLOGY [address] | M, DO [address] | disease (HCC) | | | | [address] | [place] | (Primary Dx) | | | | [place], [place] | [place] | | | | | [address] | [address] | | | | | [phone] | | | +--------+ + + + [...] + + + | Blood Pressure | 136/75 | 01/17/2018 6:19 PM | | | | | PDT | | + + + + + | Pulse | - | - | | + + + + + | Temperature | 36.7 C (98 F) | 01/17/2018 6:19 PM | | | | | PDT [...] encounter Progress Notes Jhoana Barreto DO - 01/17/2018 10:00 AM PDT Subjective: DIALYSIS NOTE Patient ID: Aurea Perez is a 37 y.o. female. 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 She states that she is now off of her Eculizumab infusions. She denies headache, palpitations, cough, or anorexia. She does state that she has a geo y fragile home situation in terms of income, and a long-term place to live. Apparently, fro juan discussions with her she has only intermittent custody of her children. She denies any [place] bstance abuse at this time. Outpatient Prescriptions Marked as Taking for the 01/17/18 encounter (Off-Site Visit) with Juan Barreto DO Medication Sig Dispense Refill B Sesntok-Y-Eurhk Acid (RENAL-KIT) 0.8 MG TABS Take 1 tablet by mouth Daily. 30 tablet 11 carvedilol (COREG) 6.25 mg tablet Take 6.25 mg by mouth 2 times daily (with breakfast & dinner). cholecalciferol (VITAMIN D-3) 1,000 units tablet Take 1 tablet by mouth Daily. diphenhydramine (BENADRYL) 25 mg tablet Take 25 mg by mouth nightly as needed for Itchi ng. Eculizumab (SOLIRIS) 10 mg/mL injection Inject 120 mLs into the vein Every 30 days. [Th is is administered at an infusion clinic in [facility]]. 180.04 mL epoetin ant (EPOGEN, PROCRIT) 10,000 units/mL injection Inject 8,000 Units under the s kin Three times a week. furosemide (LASIX) 40 mg tablet Take 2 tablets by mouth Daily. 60 tablet 3 lisinopril (PRINIVIL, ZESTRIL) 20 mg tablet take 1 tablet by mouth once daily 30 tablet 11 sucroferric oxyhydroxide (VELPHORO) 500 mg chewable tablet Take 1 tablet by mouth 3 fahad es daily (with meals). 90 tablet 3 Review of Systems Objective: BP 136/75 | Temp 36.7 C (98 F) EDW 48.5 kg Physical Exam Heart: Regular rate and rhythm with no S3, S4, murmur or rub. Lungs: CTA bilaterally. No rales or wheezes. Abdomen: soft, obese, nontender, NABS. Extremities: no edema, clubbing, cyanosis, or foot ulcers. LAB: BUN 31, Cr 7.63, K+ 3.4, HCO3 25, albumin 3.6, Ca++ 8.7, HP04 4.0, PTH 162, Hb 9.7, TSat = 30%, ferritin 630, spKT/V = 2.20. Assessment: 1. ESRD-- overall, she appears stable on 4 hours, N17 H, 2K +, QB 350, QD 600, thrice wee kly. 2. Hypertension-- good control on carvedilol, lisinopril, and UF. 3. 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 Will titrate up her EPO per the D avita, anemia algorithm. Her iron stores appear adequate for erythropoiesis. 4. CKD/MBD-- her phosphorus control and PTH are excellent. PTH appears to be controlled without vitamin D analogs. 5. Nutrition--clinical appetite is excellent. 6. 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 7. Transplantation--primary barrier to success may be her unstable home environment and la ck of social support. 8. Remote history of substance abuse--historically she states that she is in abstin ence. Plan: 1. Will titrate up her EPO, per the algorithm to target the Hb 10-11 g/dl. Her iron stor es appear adequate for erythropoiesis. 2. I'm not sure where she is at with her housing? She has been referred to the renal [facility] on multiple occasions. 3. I encouraged Aurea to maximize her daily intake of high biological value protein. Her current Rx is adequate and it may be related to her home environment, or food choices? 4. I encouraged her that she is doing good job with fluid restriction and her HPO4 control . Will recheck her in one month with lab. : [place] Edwar Gallagher MD, FACS Nadir Lew MD, Hem/Onc, Rigoberto Sharp documented in thi s encounter Plan of Treatment Not on filedocumented as of this encounter Visit Diagnoses + + | Diagnosis | + + | End stage renal disease (HCC) - Primary End stage renal disease | + + documented in this encounter"
--- OUTSIDE RECORDS SUMMARY | ~2019-05-10 | XMS | Encounter Summary ---
Demographics + + + | Address | [address] | | | [place] [address] | + + + | Home Phone | | + + + | Preferred Language | Unknown | + + + | Marital Status | | + + + | Muslim Affiliation | 1038 | + + + | Race | Unknown | + + + | Ethnic Group | Unknown | + + + Author + + + | Author | [facility] | | | and Laloana | + + + | Organization | [facility] | | | and [place] [...] + | Beverly Perez | ECON | [place] | | | | | [address] | | + + + + + Care Team Providers + +------+ + | Care Endodontics Dentist Name | Role | Phone | + [...] | | | | | injury) | [place] | [place] | | | | | ([facility]) | [address] | | | | | Procedures | [place], [place] | [place] | | | | | [place] OFFICE | [address] | [address] Phone: | | | | | OUTPATIENT | Phone: | [phone] | | | | | VISIT 25 | [phone] | Fax: | | | | | MINUTES | Fax: | [phone] | | | | | | [phone] | | +--------+--------+ + + + + [...] | | [address] | [place] | (Primary Dx) | | | | [place], [place] | [place] | | | | | [address] | [address] | | | | | [phone] | | | +--------+ + + + [...] PM PDT[Patient NOT seen. [facility] documented in thi s encounter Plan [...]
--- OUTSIDE RECORDS SUMMARY | ~2019-05-10 | XMS | Encounter Summary ---
Demographics + + + | Address | [address] | | | [place] [address] | + + + | Home Phone | | + + + | Preferred Language | Unknown | + + + | Marital Status | | + + + | Synagogue Affiliation | 1038 | + + + | Race | Unknown | + + + | Ethnic Group | Unknown | + + + Author + + + | Author | [facility] | | | and [place]aloana | + + + | Organization | [facility] | | | and [place]ana [...] + | Beverly Perez | ECON | [place] | | | | | [address] | | + + + + + Care Team Providers + +------+ + | Care Fisher Dip Net Name | Role | Phone | + +------+ + PCP | Unavailable | + +------+ + Reason for Referral Evaluate & Treat (Urgent) +--------+ + + + + + | Status | Reason | Specialty | Diagnoses / | Referred By | Referred To | | | | | Procedures | Contact | Contact | +--------+ + + + + + | Closed | Specialty | Hematology | Diagnoses | Zule[place], | Kathy, | | | Services | and Oncology | TTP | Carina MOBILE APPLICATION ARCHITECT | [place] | | | Required | | (thrombotic | [address] | MD Jason | | | | | thrombocytop | [address] [place] | [address] | | | | | enic | [place], [place] | [place], | | | | | purpura) | [address] | [place] [address] | | | | | (HCC) | Phone: | Phone: | | | | | | [phone] | [phone] | | | | | | Fax: | Fax: | | | | | | [phone] | [phone] | +--------+ + + + + + Reason for Visit + + + | Reason | Comments | + + + | Referral | | + + + Encounter Details +--------+ + + + + | Date | Type | Department | Care Team | Description | +--------+ + + + + | 09/22/ | Telephone | [facility] | Carina DeweyZOIE | Referral | | 2017 | | MEDICINE [place] | [address] | | | | | [address] | [place], [place] | | | | | [place], [place] | [address] | | | | | [address] | | | | | | [phone] | | | +--------+ + + + [...] of this encounter Plan of Treatment + + +--------+ + + | Name | Type | Priori | Associated Diagnoses | Order Schedule | | | | ty | | | + + +--------+ + + | Hematology / | Outpatient | Routin | TTP (thrombotic | Ordered: 09/24/2017 | | Oncology, External - | Referral | e | thrombocytopenic | | | AMB Referral | | | purpura) (HCC) | | + + +--------+ + + documented as of this encounter Visit Diagnoses + + | Diagnosis | + + | 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
--- OUTSIDE RECORDS SUMMARY | ~2019-05-10 | XMS | Encounter Summary ---
Demographics + + + | Address | [address] | | | [place] [address] | + + + | Home Phone | | + + + | Preferred Language | Unknown | + + + | Marital Status | | + + + | Restoration Affiliation | [id number] | + + + | Race | Unknown | + + + | Ethnic Group | Unknown | + + + Author + + + | Author | [facility] | | | and [place] | + + + | Organization | [facility] | | | and [place] [...] [place] | | | | | [phone] | | + + + + + Care Team Providers + +------+ + | Care Corrugator Operator Name | Role | Phone | + +------+ + PCP | Unavailable | + +------+ + Encounter Details +--------+ + + + + | Date | Type | Department | Care Team | Description | +--------+ + + + + | 01/12/ | Hospital | [facility] | Kofi Champion | Peritonsillar | | 2017 - | Encounter | [facility] | MD Darri[address] | abscess | | | | CARE FLOOR [address] [place], [place] | | | 01/14/ | | [address] | [address] | | | 2016 | | [place], [place] | | | | | | [address] | | | | | | [phone] | | | +--------+ + + + [...] + + + | Blood Pressure | 160/85 | 01/14/2017 10:59 AM | | | | | PDT | | + + + + + | Pulse | 95 | 01/14/2017 10:59 AM | | | | | PDT | | + + + + + | Temperature | 36.6 C (97.9 F) | 01/14/2017 10:59 AM | | | | | PDT | | + + + + + | Respiratory Rate | 19 | 01/14/2017 10:59 AM | | | | | PDT | | + + + + + | Oxygen Saturation | - | - | | + + + + + | Inhaled Oxygen | - | - | | | Concentration | | | | + + + + + | Weight | 49.3 kg (108 lb 9.6 | 01/14/2017 10:59 AM | | | | oz) | PDT | | + + + + + | Height | 167.6 cm (5' 6") | 01/14/2017 10:59 AM | | | | | PDT | | + + + + + | Body Mass Index | 17.53 | 01/14/2017 10:59 AM | | | | | PDT | | + + + + + documented in this encounter Discharge Summaries Hedy Hankins MD - 01/14/2017 10:28 AM PDT Discharge Summaries by Hedy Hankins MD at 01/14/17 1028 Author: Hedy Hankins MD Service: Hospitalist Author Type: Physician Filed: 01/14/17 1541 Date of Service: 01/14/17 1028 Status: Signed Manager Supplier: Hedy Hankins MD (Physician) Related Notes: Original Note by Hedy Hankins MD (Physician) filed at 01/14/17 1032 [facility] Service: Hospitalist Physician Discharge Summary Patient ID: Aurea ePrez [id number] 36 y.o. Admit date: 01/12/2017 Discharge date: 01/14/2017 Admitting Physician: Kofi Champion MD Discharge Physician: Hedy Hankins MD Consultants: Treatment Team: Consulting Physician: Lanre Luna MD Admitting Provider: Kofi Champion MD Primary Discharge Diagnoses: Peritonsillar abscess Secondary Discharge Diagnoses: Microcytic hypochromic anemia Methamphetamine use Smoker Leukocytosis secondary to steroids HPI and Hospital Course: A 36-year-old female who has a past medical history of methamphetamine use and smoking was transferred from [facility] with sore throat and difficulty swallowing. [facility] a CT scan of the neck was done which showed a peritonsillar abscess. ENT c onsulted. HOSPITAL COURSE The patient was admitted with peritonsillar abscess. She was started on Decadron and Unasyn . Dr. Luna evaluated the patient. Her blood cultures remained negative. The patient was started on a general diet which she was able to tolerate. She was transitioned to Augmentin per Dr. Luna' recommendation and will complete a 7 day course. He recommended that she f ollow up with her PCP; and if she has more problems, will follow up with ENT as needed. The patient will be discharged on Medrol Dosepak. White count is elevated secondary to steroids. The patient had hyperglycemia secondary to steroids. Her A1c was 5.7. Her TSH was low but free T4 was within normal limits. The patient has pain and will be discharged on oxycodone. I advised the patient to quit smo avelino and drug abuse. She verbalized understanding. The plan was discussed in detail with the patient. All data were reviewed with her and all questions were answered. Discharged Condition: Stable for discharge as stated above. Significant Diagnostic Studies: Ct Soft Tissue Neck (with Iv Contrast) Result Date: 01/12/2017 1. There is demonstration of tonsillitis with a peritonsillar abscess involving the left p alatine tonsil. Extensive subcutaneous edema is noted along the left neck. There is no evide nce of a retropharyngeal fluid collection. Discharge Vitals: Vitals: 01/13/17 2326 01/14/17 0154 01/14/17 0345 01/14/17 0733 BP: 140/84 157/83 145/75 BP Location: Left upper arm Left upper arm Left upper arm Pulse: 69 79 80 Resp: 18 18 20 Temp: 98.7 F (37.1 C) 98.4 F (36.9 C) 98.6 F (37 C) TempSrc: Oral Oral Axillary SpO2: 98% 96% 98% Weight: 49.3 kg (108 lb 9.6 oz) Height: Discharge Exam: General: Well nourished. Erythema present over the left tonsil no exudate noted. Uvula is m idline Psych: Alert and oriented x 3. Calm, cooperative. Cardiovascular: Regular rate and rhythm, no murmurs, no thrills. Normal PMI. Respiratory: Clear to auscultation, no wheezing or crackles, breathing non labored. Gastrointestinal: Soft, tenderness present in the right lower quadrant at the site of recen t surgery, non-distended, positive bowel sounds. No HSM. Musculoskeletal: No edema in bilateral lower extremities. No joint swelling. Skin: Warm and dry, no rashes. Neck: Left sided tender cervical lymphadenopathy present. Neurological: Non focal. Motor grossly intact. LABS: Recent Labs Lab 01/14/17 0613 01/13/17 0506 WBC 16.48* 16.20* RBC 4.10 4.43 HGB 10.1* 10.9* HCT 31.0* 33.1* MCV 75.7* 74.7* MCH 24.7* 24.6* MCHC 32.6 32.9 RDW 43.8 43.3 PLT 218 249 MPV 9.0 9.1 DIFFTYPE MANUAL MANUAL Recent Labs Lab 01/14/17 0613 01/13/17 0506 NA 139 133* K 3.6 3.8 CL 107 99 CO2 26 24 BUN 13 12 CREATININE 0.6 0.8 PROT -- 6.8 BILITOT -- 0.3 ALT -- 22 AST -- 14 GLUF 123* 246* No results for input(s): CKTOTAL, TROPONINI, TROPONINT, CKMBINDEX in the last 168 hours. No results for input(s): PHOS in the last 168 hours. No results for input(s): MG in the last 168 hours. Invalid input(s): ABG Disposition: Home Follow up: Erik Flor MD [address] [facility] [place] [address] Follow up on 02/05/2017 Your appointment time is 11:00am [facility] [address], [place] [address] Walkin for follow up next week. Erik Flor MD [address] [facility] [place] [address] Schedule an appointment as soon as possible for a visit in 1 week Medication List START taking these medications amoxicillin-clavulanate 875-125 MG per tablet QTY: 14 tablet Refills: 0 Commonly known as: AUGMENTIN Take 1 tablet by mouth every 12 (twelve) hours for 7 days. fyzcnzrqbxfawow-hgztrmqrpwrsjj-xifazokh suspension QTY: 240 mL Refills: 0 Swish and spit 10 mLs every 6 (six) hours as needed for Sore Throat. famotidine 20 MG tablet QTY: 28 tablet Refills: 0 Commonly known as: PEPCID Take 1 tablet by mouth 2 (two) times daily for 14 days. methylPREDNISolone 4 MG tablet QTY: 10 tablet Refills: 0 Commonly known as: MEDROL Medrol 4 mg po QID today and then Medrol 4 mg PO TID for one day and then Medrol 4 mg PO BI D for one day and then Medrol 4 mg PO q day for 1 day and then stop oxyCODONE 5 MG immediate release tablet QTY: 30 tablet Refills: 0 Commonly known as: ROXICODONE Take 1 tablet by mouth every 4 (four) hours as needed for Pain (4 to 5) for up to 10 days. Where to Get Your Medications You can get these medications from any pharmacy Bring a paper prescription for each of these medications amoxicillin-clavulanate 875-125 MG per tablet vtzbbojcifamdiu-nrfvqkmckcserd-yzqicvpv suspension famotidine 20 MG tablet methylPREDNISolone 4 MG tablet oxyCODONE 5 MG immediate release tablet Hedy Hankins MD 01/14/2017 10:29 AM Code Status: Full Code Discharge took 45 minutes, to include final examination, discussion of admission, and prep aration of prescriptions, instructions for ongoing care, follow up and dictation of summary. This entry has been created using [employer] Speech Recognition software and [employer]. The entry has been reviewed and there may still exist sound alike word errors. documented in th is encounter Medications at Time of Discharge + [...] Progress Notes Conversion Transaction, Provider Unknown - 01/14/2017 12:53 PM PDTFormatting of this note m ight be different from the original. Nurse Progress Note by Daily Moore RN at 01/14/17 0644 Author: Daily Moore RN Service: (none) Author Type: Registered Nurse Filed: 01/14/17 1505 Date of Service: 01/14/17 1255 Status: Signed Manager Supplier: Daily Moore RN (Registered Nurse) Discharged per w/c to [facility] staff member to be transported home.Daily Moore 01/14/2017 onver chaz Transaction, Provider Unknown - 01/14/2017 11:14 AM PDT Nurse Progress Note by Daily Moore RN at 01/14/17 0867 Author: Daily Moore RN Service: (none) Author Type: Registered Nurse Filed: 01/14/17 1115 Date of Service: 01/14/17 1114 Status: Signed Manager Supplier: Daily Moore RN (Registered Nurse) Discharge instructions discussed with patient and she states understanding.Daily Moore onver chaz Transaction, Provider Unknown - 01/14/2017 10:54 AM PDT Case Management by Bello Tavarez RN at 01/14/17 1054 Author: Bello Tavarez RN Service: (none) Author Type: Registered Nurse Filed: 01/14/17 1057 Date of Service: 01/14/17 105 Status: Signed Manager Supplier: Bello Tavarez RN (Registered Nurse) 01/14/17 105 Discharge Planning Evaluation Admitting Diagnosis peritonsillar abscess [...] female who is independent and lives in [place]. She [facility]. She denies having any needs for discharge. Patient's PCP is: Erik Flor Patient's insurance:Medicaid Coverage concerns: none Medication coverage/concerns: yes Community resources utilized / needed: none Assistance in transportation: [place] Medicaid Transport Identification of any specific education / training: [facility] Barriers to Discharge / Alternative housing needed: none Anticipated DCP: Bello Tamayo onver chaz Transaction, Provider Unknown - 01/14/2017 10:13 AM PDT Case Management by Bello Tavarez RN at 01/14/17 1013 Author: Bello Tavarez RN Service: (none) Author Type: Registered Nurse Filed: 01/14/17 105 Date of Service: 01/14/17 1013 Status: Addendum Manager Supplier: Bello Tavarez RN (Registered Nurse) Related Notes: Original Note by Bello W Hair, RN (Registered Nurse) filed at 01/14/17 10 13 I made a referral to [facility] and she will see patient prior to d ischarge. [facility] and they will deliver the medications to her room. onver chaz Transaction, Provider Unknown - 01/13/2017 6:28 PM PDT Nurse Progress Note by Kevin Aguiar RN at 01/13/171827 Author: Kevin Aguiar RN Service: (none) Author Type: Registered Nurse Filed: 01/13/17 183 Date of Service: 01/13/171827 Status: Signed Manager Supplier: Kevin Aguiar RN (Registered Nurse) VSS and afebrile. AAOx4, calm and cooperative. Pt C/O pain and medication given. Pt C/O itc moises and benadryl given. Pt tolerating PO well. Pt has patent IV x2 one to SL and other infu sing. Pt voiding in BR and is a standby assist. Pt was anxious and medication given. Cares a nd report given to oncoming nurse. onver chaz Transaction, Provider Unknown - 01/13/2017 3:43 PM PDT Progress Notes by Jaime Muhammad at 01/13/17 2993 Author: Jaime Muhammad Service: (none) Author Type: Brine Plant Operator Filed: 01/13/17 7064 Date of Service: 01/13/17 9353 Status: Signed Manager Supplier: Jaime Muhammad () Per Distress Report. Pt sitting on bed appears anxious (phone conversation with her mother) , no family at bedside (They are in [place]). Pt verbalized her emotional distress (acumulate d emotional pain) Pt shared that her (first relationship) seven years ago, she hasn't being able of taking care of her kids. CP provided supportive presence allowing Pt to talk about her emotional pain (tearful), with active listening, exploring coping resources (spirtual and connection with family). Prayer was offered and accepted. Pt seemed peaceful o n my departure. onver chaz Transaction, Provider Unknown - 01/13/2017 3:36 PM PDT Progress Notes by Natalie Nair RD at 01/13/17 5746 Author: Natalie Nair RD Service: (none) Author Type: Registered Dietitian Filed: 01/13/177 Date of Service: 01/13/171535 Status: Signed Manager Supplier: Natalie Nair RD (Registered Dietitian) 01/13/17 4082 Subjective Timepoint Admit Pt c/o Pt triggered for low BMI, wt loss and dysphagia. Pt admitted for peritonsillar abces s. 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 Per pt she tries to avoid greasy foods and doesn't follow an eat ing pattern. Fluid / Beverage Intake Oral Fluids Amount Fluids ad halie. Liquid Meal Replacement or Supplement Pt reports she drinks supplements at home: Breakfast essentials. Food Intake Amount of Food Pt had tray in front of her and a second tray came during visit. Pt reports she has been eating non-stop. Type of Food / Meals Full liquid diet (General dysphagia advanced now). Pt reports a lady h ad just advanced her diet. Parenteral Nutrition Intake Rate/Solution NS running at 75 ml/hr Food and Nutrition Knowledge Area(s) and Level of Knowledge Pt requesting information on how to gain wt. Gave her the fo luci handout: High Kcal and High Pro Nutrition Therapy. Nutrition-Focused Physical Findings Overall Appearance Thin. Extremities, Muscles and Bones Muscle wasting noted around shoulders, temples, clavicles. Digestive System (Mouth to Rectum) POWER LINEMAN consult ordered. Pt reports she doesn't have any marylin th and she didn't put in her dentures. Nerves and Cognition Pt seemed anxious. Anthropometrics Weight change Pt's BMI is 15.6 and pt is 74% of IBW. Pt reports she has had wt loss and she weighed 135# 3 years ago. Biochemical data, medical tests, and procedures reviewed Biochemical data, medical tests, and procedures reviewed Na 133 (L) and BG 246 (H)- likely exacerabted by methylprenisolone. Estimated Energy Needs Total Energy Estimated Needs 1097-9014 kcal/day. Add 500 kcal/day to promote wt gain. Method for Estimating Needs 30-35 kcal/kg based on admit wt of 43.8 kg Estimated Protein Needs Total Protein Estimated Needs 53-66 g/day Method for Estimating Needs 1.2-1.5 g/kg based on admit wt of 43.8 kg Recommendations Recommended energy needs Diet per POWER LINEMAN. Send Boost Glucose Control TID at snack times. Encou rage po intake. Monitor and follow as indicated. Nutritional Risk Nutritional risk Moderate / high Follow up date 01/17/[address] onver chaz Hyltonaction, Provider Unknown - 01/13/2017 2:15 PM PDT Case Management by Bello Tavarez RN at 01/13/17 1415 Author: Bello Tavarez RN Service: (none) Author Type: Registered Nurse Filed: 01/13/17 1416 Date of Service: 01/13/17 141 Status: Signed Manager Supplier: Bello Tavarez RN (Registered Nurse) I was unable to assess patient because she was sleeping. I scheduled follow up with her PCP and arranged for [place] Medicaid Transport to pick her u p tomorrow at 1200. Shanae Limon MA, CCC-POWER LINEMAN - 01/13/2017 2:10 PM PDTFormatting of this note might be different fr om the original. Therapy Progress Note by Shanae Contreras MA CCC-POWER LINEMAN at 01/13/17 1410 Author: Shanae Contreras MA CCC-POWER LINEMAN Service: (none) Author Type: Speech and Buyer Grain ologist Filed: 01/13/17 1716 Date of Service: 01/13/17 141 Status: Signed Manager Supplier: Shanae Contreras MA CCC-POWER LINEMAN (Speech and Language Pathologist) 01/13/17 1410 POWER LINEMAN Last Visit POWER LINEMAN Received On 01/13/17 Requires POWER LINEMAN Follow Up Yes Swallowing Assessment Eval Swallowing Evaluation Yes Initial Swallow Assessment Behavior/Cognition Alert;Cooperative Dentition Dentures upper (no lower teeth) Patient Positioning Upright in bed Baseline Vocal Quality Normal Volitional Cough Strong Volitional Swallow WFL Oral Motor Exam Labial ROM Reduced right;Reduced left (slowed movements) Lingual ROM Other (Comment) (slowed movements) Consistencies Consistencies Assessed Yes Thin Presentation Cup;Self Fed Oral Phase Thin WFL Pharyngeal Phase No overt signs or symptoms of aspiration Puree Presentation Self Fed Oral Phase WFL Pharyngeal No overt signs or symptoms of aspiration Dysphagia Advanced Presentation Self Fed Oral Phase WFL Pharyngeal Phase No overt signs or symptoms of aspiration Recommendations Liquids Consistency Recommendations Thin Diet Consistency Recommendation Dysphagia Advanced Recommendations Set up with meals;Check on patients frequently throught out meals Risk for Aspiration Mild Compensatory Swallowing Strategies Remain upright for 30 minutes after meals;Upright as pos sible for all oral intake;Slow rate presentation;Eat/feed slowly Recommended Form of Meds Meds with recommended liquid Summary Pt has swelling and sores. Pt aware of what she can and cannot eat and felt food b eing diced was needed at this time. Staff Notified RN Plan of Care Treatment Plan ST to follow;Dysphagia treatment Treatment Frequency 2-4 x/week Care Duration (Days) 4 Days Follow up treatments Diet tolerance monitoring;Patient/Family education AVS Documentation Yes Diet Dysphagia advanced: soft bread and lightly toasted bread ok, food cut into pieces i nch or smaller, no crunchy fresh fruits/veggies, melons ok, shredded lettuce w/salad dressin g ok Liquids Thin liquids: regular consistency POWER LINEMAN Ready for Discharge Yes Dysphagia Goals Technical Illustrator Goals Safe/efficient oral intake Pt will have safe/efficient oral intake Thin liquids;Dysphagia advanced diet;New/revised g oal Short Term Goals Follow swallow precautions Pt will follow swallow precautions New/revised goal Kristie Hackett MD - 01/13/2017 10:25 AM PDTFormatting of this note might be different from the [place]. Progress Notes by Hedy Hankins MD at 01/13/17 1028 Author: Hedy Hankins MD Service: Hospitalist Author Type: Physician Filed: 01/13/17 7075 Date of Service: 01/13/17 1025 Status: Signed Manager Supplier: Hedy Hankins MD (Physician) [facility] Service: Hospitalist Progress Note Hospital Day: LOS: 1 day SUBJECTIVE Patient Summary: 36-year-old female with history of methaphetamine use, tobacco abuse admitted with peritonsillar abscess. Patient was started on Unasyn and steroids. Events Overnight: Patient complains of severe pain of the left side of the neck and d ifficulty swallowing. She is however able to tolerate a full liquid diet. She seems very tea rful and anxious. Scheduled Medications ampicillin-sulbactam 3 g Intravenous Q6H dexamethasone 6 mg Intravenous Q12H enoxaparin 40 mg Subcutaneous Q24H nicotine 1 patch Transdermal Daily pneumococcal 23-valent vaccine 0.5 mL Intramuscular Once Immunization Continuous Infusions sodium chloride (IV) PRN Medications acetaminophen OR acetaminophen, chhzkwfxalsgegn-mzpmmpgxcodurr-pywztqrn, HYDROmorphone, ondansetron OR ondansetron, polyethylene glycol OBJECTIVE Vital Signs: BP 126/71 (BP Location: Left upper arm) | Pulse 63 | Temp 98.3 F (36.8 C) (Axillary) | Resp 18 | Ht 1.676 m (5' 6") | Wt 45.2 kg (99 lb 9.6 oz) | LMP 12/11/2016 | SpO2 99% | ? No | BMI 16.08 kg/m Patient Vitals for the past 24 hrs: BP Temp Temp src Pulse Resp SpO2 Height Weight 01/13/17 0705 126/71 98.3 F (36.8 C) Axillary 63 18 - - - 01/13/17 0313 161/65 98.7 F (37.1 C) Oral 79 18 99 % - 45.2 kg (99 lb 9.6 oz) 01/12/17 2328 142/73 98.3 F (36.8 C) Oral 63 16 99 % - - 01/12/17 1955 152/84 97.5 F (36.4 C) Oral 58 17 92 % - - 01/12/17 1816 155/87 97.5 F (36.4 C) Oral 73 18 100 % 1.676 m (5' 6") (!) 43.8 kg (96 l b 8 oz) 01/12/17 1616 155/70 - - 63 16 100 % - - 01/12/17 1458 (!) 175/106 - - 79 20 100 % - - 01/12/17 1327 (!) 161/94 97 F (36.1 C) Oral 89 18 100 % - - Intake/Output Summary (Last 24 hours) at 01/13/17 1025 Last data filed at 01/13/17 0314 Gross per 24 hour Intake 1340 ml Output 700 ml Net 640 ml Physical Exam: Constitutional: Alert and oriented to person, place, and time. Appears well-developed and w ell-nourished. HEENT: Left tender cervical lymphadenopathy present. Erythema present over the left tonsil no exudates noted. Uvula is midline, no JVD, non icteric sclera. Cardiovascular: Normal rate, regular rhythm, normal heart sounds with S1 and S2, Exam re veals no gallop and no friction rub. No murmur heard. No S3, No S4 Pulmonary/Chest: Effort normal and breath sounds normal. No stridor. No respiratory distres s. no wheezes. no rales. exhibits no tenderness. Abdominal: Soft. Bowel sounds are normal. exhibits no distension and no mass. There is tend erness present in right lower quadrant at the site of recent surgery. There is no rebound an d no guarding. Extremeties/Musculoskeletal: exhibits no edema. Neurological: Alert and oriented to person, place, and time. Skin: Skin is warm and dry. Psychiatric: Appears anxious DATA Recent Labs Lab 01/13/17 0506 WBC 16.20* RBC 4.43 HGB 10.9* HCT 33.1* MCV 74.7* MCH 24.6* MCHC 32.9 RDW 43.3 PLT 249 MPV 9.1 DIFFTYPE MANUAL Recent Labs Lab 01/13/17 0506 NA 133* K 3.8 CL 99 CO2 24 BUN 12 CREATININE 0.8 PROT 6.8 BILITOT 0.3 ALT 22 AST 14 GLUF 246* No results for input(s): CKTOTAL, TROPONINI, TROPONINT, CKMBINDEX in the last 168 hours. No results for input(s): PHOS in the last 168 hours. No results for input(s): MG in the last 168 hours. Invalid input(s): ABG No results for input(s): CALCIUM in the last 168 hours. No results for input(s): APTT, INR, PTT in the last [address] Soft Tissue Neck (with Iv Contrast) Result Date: 01/12/2017 1. There is demonstration of tonsillitis with a peritonsillar abscess involving the left p alatine tonsil. Extensive subcutaneous edema is noted along the left neck. There is no evide nce of a retropharyngeal fluid collection. LEM LIST Principal Problem: Peritonsillar abscess Active Problems: Methamphetamine use Smoker ASSESSMENT & PLAN Left peritonsillar abscess. We will continue Unasyn and steroids. ENT consulted.. White cou nt is elevated secondary to steroids. Patient is able to tolerate a diet. Blood cultures are pending. CRP is elevated. No blood cultures were done at [place]. Disc ussed with Dr. Luna. Recommended to advance diet and start patient on Medrol Dosepak and possible transition to Augmentin with outpatient follow-up. Pain. Will continue Dilaudid prn. Will start patient on oxycodone prn. Patient has history of anaphylaxis to codeine however tolerated oxycodone yesterday. Hyperglycemia. Secondary to steroids. A1c is 5.7. We will start sliding scale insulin. Microcytic hypochromic anemia. Will monitor hemoglobin. Methamphetamine/tobacco abuse . Advised patient to quit. Will continue nicotine patch. We w ill start Xanax prn. Low TSH. Will check free T4. GI prophylaxis. Will start Pepcid Deep vein thrombosis prophylaxis. We will continue Lovenox. Time spent over 35 minutes in reviewing patient's labs, diagnostic tests, examination of pa tient, discussing plan of care with patient , coordination of care and answered their questi ons. All data was reviewed. Disposition: Inpatient Code Status: Full Code Hedy Hankins MD 01/13/2017 10:25 AM This entry has been created using [employer] Speech Recognition software and [employer]. The entry has been reviewed and there may still exist sound alike word errors. onversion Trans action, Provider Unknown - 01/13/2017 5:13 AM PDT Nurse Progress Note by Olman Heredia RN at 01/13/17512 Author: Olman Heredia RN Service: (none) Author Type: Registered Nurse Filed: 01/13/17515 Date of Service: 01/13/17512 Status: Signed Manager Supplier: Olman Heredia RN (Registered Nurse) Pt has been A/O x4, VSS, c/o pain, dilaudid has been given. Pt still reports pain as a /10 . She seems to be an anxious person. Perhaps an antianxiety med would be beneficial to her. Will continue to monitor. Olman Heredia RN. onver chaz Transaction, Provider Unknown - 01/12/2017 6:32 PM PDT Progress Notes by Bebe Bennett RPH at 01/12/171831 Author: Bebe Bennett RPH Service: Pharmacy Author Type: Pharmacist Filed: 01/12/171831 Date of Service: 01/12/171831 Status: Signed Manager Supplier: Bebe Bennett RPH (Pharmacist) Clinical Pharmacy Note: Renal Monitoring Aurea Perez 36 y.o. female Ht Readings from Last 1 Encounters: No data found for Ht Wt Readings from Last 1 Encounters: 01/12/17 (!) 43.8 kg (96 lb 8 oz) Creatinine clearance cannot be calculated (Unknown ideal weight.) Pharmacy dosing for renal function per Dr. Mark Champion. Currently, there is no updated height. Pharmacy will adjust medications, if necessary, when height is reported. Bebe Bennett PharmD 01/12/2017 6:31 PM docume nted in this encounter Plan of Treatment Not on filedocumented as of this encounter Procedures + +--------+ + + + | Procedure Name | Priori | Date/Time | Associated Diagnosis | Comments | | | ty | | | | + +--------+ + + + | POC GLUCOSE | Routin | 01/14/2017 | | Results for this | | | e | 11:25 AM | | procedure are in the | | | | PDT | | results section. | + +--------+ + + + | POC GLUCOSE | Routin | 01/14/2017 | | Results for this | | | e | 6:25 AM | | procedure are in the | | | | PDT | | results section. | + +--------+ + + + | EXTERNAL LAB: CBC | Routin | 01/14/2017 | | Results for this | | | e | 6:13 AM | | procedure are in the | | | | PDT | | results section. | + +--------+ + + + | T4, FREE | Routin | 01/14/2017 | | Results for this | | | e | 6:13 AM | | procedure are in the | | | | PDT | | results section. | + +--------+ + + + | BASIC METABOLIC | Routin | 01/14/2017 | | Results for this | | PANEL | e | 6:13 AM | | procedure are in the | | | | PDT | | results section. | + +--------+ + + + | POC GLUCOSE | Routin | 01/13/2017 | | Results for this | | | e | 10:12 PM | | procedure are in the | | | | PDT | | results section. | + +--------+ + + + | POC GLUCOSE | Routin | 01/13/2017 | | Results for this | | | e | 5:54 PM | | procedure are in the | | | | PDT | | results section. | + +--------+ + + + | POC GLUCOSE | Routin | 01/13/2017 | | Results for this | | | e | 12:09 PM | | procedure are in the | | | | PDT | | results section. | + +--------+ + + + | EXTERNAL LAB: CBC | Routin | 01/13/2017 | | Results for this | | | e | 5:06 AM | | procedure are in the | | | | PDT | | results section. | + +--------+ + + + | LIPID PANEL | Routin | 01/13/2017 | | Results for this | | | e | 5:06 AM | | procedure are in the | | | | PDT | | results section. | + +--------+ + + + | SEDIMENTATION RATE, | Routin | 01/13/2017 | | Results for this | | AUTOMATED | e | 5:06 AM | | procedure are in the | | | | PDT | | results section. | + +--------+ + + + | C-REACTIVE PROTEIN | Routin | 01/13/2017 | | Results for this | | | e | 5:06 AM | | procedure are in the | | | | PDT | | results section. | + +--------+ + + + | TSH | Routin | 01/13/2017 | | Results for this | | | e | 5:06 AM | | procedure are in the | | | | PDT | | results section. | + +--------+ + + + | HEMOGLOBIN A1C | Routin | 01/13/2017 | | Results for this | | | e | 5:06 AM | | procedure are in the | | | | PDT | | results section. | + +--------+ + + + | COMPREHENSIVE | Routin | 01/13/2017 | | Results for this | | METABOLIC PANEL | e | 5:06 AM | | procedure are in the | | | | PDT | | results section. | + +--------+ + + + | CULTURE, BLOOD | STAT | 01/12/2017 | | Results for this | | | | 8:12 PM | | procedure are in the | | | | PDT | | results section. | + +--------+ + + + | CULTURE, BLOOD, 2ND | STAT | 01/12/2017 | | Results for this | | SPECIMEN (NON-ORD) | | 6:32 PM | | procedure are in the | | | | PDT | | results section. | + +--------+ + + + | CT SOFT TISSUE NECK | Routin | 01/12/2017 | | Results for this | | W CONTRAST | e | 3:26 PM | | procedure are in the | | | | PDT | | results section. | + +--------+ + + + documented in this encounter Results POC Glucose (01/14/2017 11:25 AM PDT) + + + + + + | Component | Value | Ref Range | Performed | Pathologist | | | | | At | Signature | + + + + + + | Glucose, | 230 (H)Comment: Testing | 65 - 99 mg/dL | EXTERNAL | | | Fingerstick | performed at [facility] | | LAB | | | | [address];[place], [place] | | | | | | [address] | | | | + + + + + + + + | Specimen | + + | | + + + +---------+ + + | Performing | Address | City/State/Zipcode | Phone Number | | Organization | | | | + +---------+ + + | EXTERNAL LAB | | | | + +---------+ + + POC Glucose (01/14/2017 6:25 AM PDT) + + + + + + | Component | Value | Ref Range | Performed | Pathologist | | | | | At | Signature | + + + + + + | Glucose, | 115 (H)Comment: Testing | 65 - 99 mg/dL | EXTERNAL | | | Fingerstick | performed at [facility];[address] | | LAB | | | | [address];[place] | | | | | | [address] | | | | + + + + + + + + | Specimen | + + | | + + + +---------+ + + | Performing | Address | City/State/Zipcode | Phone Number | | Organization | | | | + +---------+ + + | EXTERNAL LAB | | | | + +---------+ + + External Lab: DAMIAN (01/14/2017 6:13 AM PDT) + + +---- + + + | Component | Value | Ref Range | Performed | Pathologist | | | | | At | Signature | + + +---- + + + | WBC | 16.48 (H) | 3.8 0 - 11.00 | EXTERNAL | | | | | K/u L | LAB | | + + +---- + + + | RED CELL | 4.10 | 3.7 0 - 5.10 | EXTERNAL | | | COUNT | | M/u L | LAB | | + + +---- + + + | Hgb | 10.1 (L) | 11. 3 - 15.5 | EXTERNAL | | | | | g/d L | LAB | | + + +---- + + + | Hematocrit, | 31.0 (L) | 34. 0 - 46.0 % | EXTERNAL | | | POC | | | LAB | | + + +---- + + + | MCV | 75.7 (L) | 80. 0 - 100.0 fl | EXTERNAL | | | | | | LAB | | + + +---- + + + | MCH | 24.7 (L) | 27. 0 - 34.0 pg | EXTERNAL | | | | | | LAB | | + + +---- + + + | MCHC | 32.6 | 32. 0 - 35.5 | EXTERNAL | | | | | g/d L | LAB | | + + +---- + + + | RDW-CV | 43.8 | 37 - 53 fl | EXTERNAL | | | | | | LAB | | + + +---- + + + | Platelet | 218 | 150 - 400 K/uL | EXTERNAL | | | Count | | | LAB | | | Plasma | | | | | + + +---- + + + | MPV | 9.0 | fl | EXTERNAL | | | | | | LAB | | + + +---- + + + | Differentia | MANUAL | | EXTERNAL | | | l Type | | | LAB | | + + +---- + + + | Segmented | 79 | % | EXTERNAL | | | Neutrophils | | | LAB | | | Manual | | | | | + + +---- + + + | % Bands | 4 | % | EXTERNAL | | | | | | LAB | | + + +---- + + + | Lymphocytes | 10 | % | EXTERNAL | | | Manual | | | LAB | | + + +---- + + + | Monocytes | 7 | % | EXTERNAL | | | Manual | | | LAB | | + + +---- + + + | Absolute | 13.02 (H) | 1.9 0 - 7.40 | EXTERNAL | | | Neutrophils | | K/u L | LAB | | + + +---- + + + | Bands | 0.66 (H) | 0.0 0 - 0.20 | EXTERNAL | | | Manual | | K/u L | LAB | | + + +---- + + + | Absolute | 1.65 | 1.0 0 - 3.90 | EXTERNAL | | | Lymphocytes | | K/u L | LAB | | + + +---- + + + | Absolute | 1.15 (H) | 0.0 0 - 0.80 | EXTERNAL | | | Monocytes | | K/u L | LAB | | + + +---- + + + | RBC | 2+Comment: | | EXTERNAL | | | Morphology | HYPO2+MICRO2+OVALO1+JOLYNN | | LAB | | | | NORMAL PLT MORPHTesting | | | | | | performed at [facility], [address] | | | | | | [facility], | | | | | | [place] [address] | | | | | |OVALO | | | | | |1+ | | | | | |JOLYNN | | | | | |NORMAL PLT MORPH | | | | | |Testing performed at [facility], [facility] [place] [address] | | | | | | | [...] | | | + +---------+ + + T4Marly (01/14/2017 6:13 AM PDT) + + + + + + | Component | Value | Ref Range | Performed | Pathologist | | | | | At | Signature | + + + + + + | FREE T4 | 1.2Comment: Testing | 0.7 - 1.5 ng/dL | EXTERNAL | | | (REF) | performed at [facility], [address] | | LAB | | | | [address], | | | | | | [place] [address] | | | | + + + [...] + +---------+ + + Basic Metabolic Panel (01/14/2017 6:13 AM PDT) + + + + + [...] + + + + | Cl | 107 | 99 - 109 mmol/L | EXTERNAL | | | | | | LAB | | + + + + + + | CO2 | 26 | 23 - 32 mmol/L | EXTERNAL | | | | | | LAB | | + + + + + + | Anion Gap | 10 | 5 - 20 mmol/L | EXTERNAL | | | | | | LAB | | + + + + + + | Glucose, | 123 (H) | 65 - 99 mg/dL | EXTERNAL | | | Fasting | | | LAB | | + + + + + + | BUN | 13 | 8 - 25 mg/dL | EXTERNAL | | | | | | LAB | | + + + + + + | Creatinine | 0.6 | 0.50 - 1.00 | EXTERNAL | | | | | mg/dL | LAB | | + + + + + + | BUN/Creatin | 22 | | EXTERNAL | | | ine Ratio | | | LAB | | + + + + + + | Calcium | 8.1 (L) | 8.5 - 10.5 | EXTERNAL | | | | | mg/dL | LAB | | + + + + + + | Estimated | >60Comment: GFR <60: | mL/min/1.73m2 | EXTERNAL | [...] BY | | | | | | 1.210.Testing performed | | | | | | at [facility], [address] | | | | | | [address], | | | | | | [place] [address] | | | | + + + + + + + + | Specimen | + + | Blood specimen | | (specimen) | + + + +---------+ + + | Performing | Address | City/State/Zipcode | Phone Number | | Organization | | | | + +---------+ + + | EXTERNAL LAB | | | | + +---------+ + + POC Glucose (01/13/2017 10:12 PM PDT) + + + + + + | Component | Value | Ref Range | Performed | Pathologist | | | | | At | Signature | + + + + + + | Glucose, | 156 (H)Comment: Testing | 65 - 99 mg/dL | EXTERNAL | | | Fingerstick | performed at [facility] | | LAB | | | | [address];[place], [place] | | | | | | [address] | | | | + + + + + + + + | Specimen | + + | | + + + +---------+ + + | Performing | Address | City/State/Zipcode | Phone Number | | Organization | | | | + +---------+ + + | EXTERNAL LAB | | | | + +---------+ + + POC Glucose (01/13/2017 5:54 PM PDT) + + + + + + | Component | Value | Ref Range | Performed | Pathologist | | | | | At | Signature | + + + + + + | Glucose, | 176 (H)Comment: Testing | 65 - 99 mg/dL | EXTERNAL | | | Fingerstick | performed at [facility];[address] | | LAB | | | | [address];[place] | | | | | | [address] | | | | + + + + + + + + | Specimen | + + | | + + + +---------+ + + | Performing | Address | City/State/Zipcode | Phone Number | | Organization | | | | + +---------+ + + | EXTERNAL LAB | | | | + +---------+ + + POC Glucose (01/13/2017 12:09 PM PDT) + + + + + + | Component | Value | Ref Range | Performed | Pathologist | | | | | At | Signature | + + + + + + | Glucose, | 259 (H)Comment: Testing | 65 - 99 mg/dL | EXTERNAL | | | Fingerstick | performed at [facility];[address] | | LAB | | | | [address];[place] | | | | | | [address] | | | | + + + + + + + + | Specimen | + + | | + + + +---------+ + + | Performing | Address | City/State/Zipcode | Phone Number | | Organization | | | | + +---------+ + + | EXTERNAL LAB | | | | + +---------+ + + Sedimentation rate, automated (01/13/2017 5:06 AM PDT) + + + + + + | Component | Value | Ref Range | Performed | Pathologist | | | | | At | Signature | + + + + + + | Sed Rate | 24 (H)Comment: Testing | 0 - 20 mm/Hr | EXTERNAL | | | | performed at [facility], [address] | | LAB | | | | [address], | | | | | | [place] [address] | | | | + + + [...] + +---------+ + + External Lab: CBC (01/13/2017 5:06 AM PDT) + + +---- + + + | Component | Value | Ref Range | Performed | Pathologist | | | | | At | Signature | + + +---- + + + | WBC | 16.20 (H) | 3.8 0 - 11.00 | EXTERNAL | | | | | K/u L | LAB | | + + +---- + + + | RED CELL | 4.43 | 3.7 0 - 5.10 | EXTERNAL | | | COUNT | | M/u L | LAB | | + + +---- + + + | Hgb | 10.9 (L) | 11. 3 - 15.5 | EXTERNAL | | | | | g/d L | LAB | | + + +---- + + + | Hematocrit, | 33.1 (L) | 34. 0 - 46.0 % | EXTERNAL | | | POC | | | LAB | | + + +---- + + + | MCV | 74.7 (L) | 80. 0 - 100.0 fl | EXTERNAL | | | | | | LAB | | + + +---- + + + | MCH | 24.6 (L) | 27. 0 - 34.0 pg | EXTERNAL | | | | | | LAB | | + + +---- + + + | MCHC | 32.9 | 32. 0 - 35.5 | EXTERNAL | | | | | g/d L | LAB | | + + +---- + + + | RDW-CV | 43.3 | 37 - 53 fl | EXTERNAL | | | | | | LAB | | + + +---- + + + | Platelet | 249 | 150 - 400 K/uL | EXTERNAL [...] +---- + + + | Segmented | 81 | % | EXTERNAL | | | Neutrophils | | | LAB | | | Manual | | | | | + + +---- + + + | % Bands | 3 | % | EXTERNAL | | | | | | LAB | | + + +---- + + + | Lymphocytes | 8 | % | EXTERNAL | | | Manual | | | LAB | | + + +---- + + + | Monocytes | 8 | % | EXTERNAL | | | Manual | | | LAB | | + + +---- + + + | Absolute | 13.11 (H) | 1.9 0 - 7.40 | EXTERNAL | | | Neutrophils | | K/u L | LAB | | + + +---- + + + | Bands | 0.49 (H) | 0.0 0 - 0.20 | EXTERNAL | | | Manual | | K/u L | LAB | | + + +---- + + + | Absolute | 1.30 | 1.0 0 - 3.90 | EXTERNAL | | | Lymphocytes | | K/u L | LAB | | + + +---- + + + | Absolute | 1.30 (H) | 0.0 0 - 0.80 | EXTERNAL | | | Monocytes | | K/u L | LAB | | + + +---- + + + | RBC | 2+Comment: | | EXTERNAL | | | Morphology | HYPO2+MICRO1+OVALONORMAL | | LAB | | | | PLT MORPHTesting | | | | | | performed at [facility], [address] | | | | | | [facility], | | | | | | [place] [address] | | | | | |OVALO | | | | | |NORMAL PLT MORPH | | | | | |Testing performed at [facility], [address] [place] [address] | | | | | | | [...] | | | + +---------+ + + C-Reactive Protein (01/13/2017 5:06 AM PDT) + + + + + + | Component | Value | Ref Range | Performed | Pathologist | | | | | At | Signature | + + + + + + | CRP | 11.2 (H)Comment: Testing | mg/dL | EXTERNAL | | | | performed at [facility], [address] | | LAB | | | | [address], | | | | | | [place] [address] | | | | + + + + + + + + | Specimen | + + | Blood specimen | | (specimen) | + + + +---------+ + + | Performing | Address | City/State/Zipcode | Phone Number | | Organization | | | | + +---------+ + + | EXTERNAL LAB | | | | + +---------+ + + TSH (01/13/2017 5:06 AM PDT) + + + + + + | Component | Value | Ref Range | Performed | Pathologist | | | | | At | Signature | + + + + + + | TSI | 0.18 (L)Comment: Testing | 0.45 - 5.10 | EXTERNAL | | | | performed at [facility], [address] | [address]/mL | LAB | | | | [address], | | | | | | [place] [address] | | | | + + + + + + + + | Specimen | + + | Blood specimen | | (specimen) | + + + +---------+ + + | Performing | Address | City/State/Zipcode | Phone Number | | Organization | | | | + +---------+ + + | EXTERNAL LAB | | | | + +---------+ + + Hemoglobin A1C (01/13/2017 5:06 AM PDT) + + + + + + | Component | Value | Ref Range | Performed | Pathologist | | | | | At | Signature | + + + + + + | Hemoglobin | 5.7Comment: The [place] | 4.0 - 6.0 % | EXTERNAL | | | A1c | Diabetes Association | | LAB | | | | considers a hemoglobin | | | | | | A1c result of <7.0% to | | | | | | be the goal of diabetic | | | | | | therapy. When results | | | | | | are consistently >8.0%, | | | | | | the ADA suggests | | | | | | reevaluation of the | | | | | | treatment regimen. The | | | | | | testing method used is | | | | | | certified traceable to | | | | | | the Diabetes Control and | | | | | | Complications Trial | | | | | | reference method. | | | | + + + + + + | Glycohemogl | 117Comment: The ADA | mg/dL | EXTERNAL | | | obin | considers an eAG result | | LAB | | | (GHb),Total | of LT 154 mg/dL to be | | | | | | the goal of diabetic | | | | | | therapy. Estimated | | | | | | Average Glucose | | | | | | calculated from | | | | | | hemoglobin A1c by use of | | | | | | the ADA recommended | | | | | | formula.Testing | | | | | | performed at [facility], [address] | | | | | | [facility], | | | | | | [place] [address] | | | | + + + + + + + + | Specimen | + + | Blood specimen | | (specimen) | + + + +---------+ + + | Performing | Address | City/State/Zipcode | Phone Number | | Organization | | | | + +---------+ + + | EXTERNAL LAB | | | | + +---------+ + + Lipid Panel (01/13/2017 5:06 AM PDT) + + + + + + | Component | Value | Ref Range | Performed | Pathologist | | | | | At | Signature | + + + + + + | Cholesterol | 115 | mg/dL | EXTERNAL | | | | | | LAB | | + + + + + + | Triglycerid | 44 | mg/dL | EXTERNAL | | | es | | | LAB | | + + + + + + | HDL | 71 | mg/dL | EXTERNAL | | | | | | LAB | | + + + + + + | LDL | 35Comment: Testing | mg/dL | EXTERNAL | | | Cholesterol | performed at [facility], [address] | | LAB | | | , | [address], | | | | | Calculated, | [place] [address] | | | | | External | [...] + +---------+ + + Comprehensive Metabolic Panel (01/13/2017 5:06 AM PDT) + + + + + + | Component | Value | Ref Range | Performed | Pathologist | | | | | At | Signature | + + + + + + | Na | 133 (L) | 135 - 145 | EXTERNAL | | | | | mmol/L | LAB | | + + + + + + | K | 3.8 | 3.5 - 4.9 | EXTERNAL | [...] + + + + | Glucose, | 246 (H) | 65 - 99 mg/dL | EXTERNAL | | | Fasting | | | LAB | | + + + + + + | BUN | 12 | 8 - 25 mg/dL | EXTERNAL | | | | | | LAB | | + + + + + + | Creatinine | 0.8 | 0.50 - 1.00 | EXTERNAL | | | | | mg/dL | LAB | | + + + + + + | BUN/Creatin | 15 | | EXTERNAL | | | ine Ratio | | | LAB | | + + + + + + | Calcium | 8.6 | 8.5 - 10.5 | EXTERNAL | | | | | mg/dL | LAB | | + + + + + + | Protein, | 6.8 | 6.3 - 8.2 g/dL | EXTERNAL | | | Total | | | LAB | | + + + + + + | Albumin | 2.8 (L) | 3.6 - 5.0 g/dL | [...] | Bilirubin | 0.3 | 0.1 - 1.5 mg/dL | EXTERNAL | | | Total | | | LAB | | + + + + + + | ALP, | 69 | 35 - 115 U/L | EXTERNAL | | | External | | | LAB | | + + + + + + | AST | 14 | 10 - 45 U/L | EXTERNAL | | | | | | LAB | | + + + + + + | ALT | 22 | 10 - 65 U/L | EXTERNAL | | | | | | LAB | | + + + + + + | Estimated | >60Comment: GFR <60: | mL/min/1.73m2 | EXTERNAL | [...] BY | | | | | | 1.210.Testing performed | | | | | | at [facility], [address] | | | | | | [facility], | | | | | | [place] [address] | | | | + + + + + + + + | Specimen | + + | Blood specimen | | (specimen) | + + + +---------+ + + | Performing | Address | City/State/Zipcode | Phone Number | | Organization | | | | + +---------+ + + | EXTERNAL LAB | | | | + +---------+ + + Culture, Blood (01/12/2017 8:12 PM PDT) + + | Specimen | + + | Blood specimen | | (specimen) | + + + + + | Narrative | Performed At | + + + | Specimen Description BLOOD, PERIPHERAL DRAW | EXTERNAL LAB | | SPECIAL REQUESTS RAC CULTURE | | | NO GROWTH 6 DAYS | | + + + + +---------+ + + | Performing | Address | City/State/Zipcode | Phone Number | | Organization | | | | + +---------+ + + | EXTERNAL LAB | | | | + +---------+ + + Culture, Blood, 2nd Specimen (01/12/2017 6:32 PM PDT) + + | Specimen | + + | Blood specimen | | (specimen) | + + + + + | Narrative | Performed At | + + + | Specimen Description BLOOD SPECIAL | EXTERNAL LAB | | REQUESTS LEFT AC CULTURE | | | NO GROWTH 6 DAYS | | + + + + +---------+ + + | Performing | Address | City/State/Zipcode | Phone Number | | Organization | | | | + +---------+ + + | EXTERNAL LAB | | | | + +---------+ + + CT Soft Tissue Neck w Contrast (01/12/2017 3:26 PM PDT) + + | Specimen | + + | | + + + + + | Impressions | Performed At | + + + | 1. There is demonstration of tonsillitis with a peritonsillar | | | abscess involving the left palatine tonsil. Extensive subcutaneous | | | edema is noted along the left neck. There is no evidence of a | | | retropharyngeal fluid collection. | | + + + + + + | Narrative | Performed At | + + + | AUREA PEREZ [address] SOFT TISSUE NECK W | | | CONTRAST 01/12/2017 3:26 PM HISTORY: Left-sided peritonsillar | | | abscess, pain COMPARISON: None. TECHNIQUE: 2.5-mm axial | | | images were acquired through the cervical soft tissues of the neck | | | with IV contrast: 75 mL Isovue-300. Dose reduction techniques were | | | used including automated exposure control, iterative reconstruction | | | technique, and/or automated adjustable mAs based on patient size. | | | FINDINGS: There is no parenchymal, meningeal or dural enhancement. | | | The dural venous sinuses are normally opacified. The orbits and globes | | | are normal in appearance. The muscles of mastication are normal | | | in appearance. Complete opacification of the left maxillary sinus is | | | noted. No mucoperiosteal reaction is present. Mild mucosal thickening | | | is present of the bilateral ethmoid sinuses. The parotid glands | | | are normal in appearance. A heterogeneous enlarged appearance of the | | | left palatine tonsil is present measuring 1.7 x 1.7 cm image 37 series | | | 3. Scattered areas of decreased attenuation are noted along the left | | | palatine tonsil. No retropharyngeal fluid is present. There is | | | induration involving the left parapharyngeal fat secondary to the | | | inflammatory process. There is mild hyperemia and inflammation of | | | the left submandibular gland. There is mild subcutaneous edema of the | | | left neck with thickening and inflammation of the left platysma. | | | Several enlarged cervical lymph nodes are seen likely reactive in | | | etiology. The vocal cords are symmetric. The thyroid gland is normal | | | in appearance. The internal jugular vein is normal in appearance | | | bilaterally. There is no pneumothorax. No focal airspace | | | consolidation is present. There is no interstitial fibrosis. There is | | | moderate degenerative disc disease of the cervical spine. There are no | | | aggressive lytic or blastic lesions. | | + + + + + | Procedure Note | + + | Prudencio, Rad Conversion - 01/19/2019 9:38 AM PDT AUREA PEREZ1980 36 years | | FemaleCT SOFT TISSUE NECK W CONTRAST01/12/2017 3:26 PM HISTORY: Left-sided peritonsillar | | abscess, pain COMPARISON: None. TECHNIQUE:2.5-mm axial images were acquired through the | | cervical soft tissues of the neck with IV contrast: 75 mL Isovue-300. Dose reduction | | techniques were used including automated exposure control, iterative reconstruction | | technique, and/or automated adjustable mAs based on patient size. FINDINGS: There is no | | parenchymal, meningeal or dural enhancement. The dural venous sinuses are normally | | opacified. The orbits and globes are normal in appearance. The muscles of mastication | | are normal in appearance. Complete opacification of the left maxillary sinus is noted. | | No mucoperiosteal reaction is present. Mild mucosal thickening is present of the | | bilateral ethmoid sinuses. The parotid glands are normal in appearance. A heterogeneous | | enlarged appearance of the left palatine tonsil is present measuring 1.7 x 1.7 cm image | | 37 series 3. Scattered areas of decreased attenuation are noted along the left palatine | | tonsil. No retropharyngeal fluid is present. There is induration involving the left | | parapharyngeal fat secondary to the inflammatory process. There is mild hyperemia and | | inflammation of the left submandibular gland. There is mild subcutaneous edema of the | | left neck with thickening and inflammation of the left platysma. Several enlarged | | cervical lymph nodes are seen likely reactive in etiology. The vocal cords are | | symmetric. The thyroid gland is normal in appearance. The internal jugular vein is | | normal in appearance bilaterally. There is no pneumothorax. No focal airspace | | consolidation is present. There is no interstitial fibrosis. There is moderate | | degenerative disc disease of the cervical spine. There are no aggressive lytic or | | blastic lesions. IMPRESSION: 1. There is demonstration of tonsillitis with a | | peritonsillar abscess involving the left palatine tonsil. Extensive subcutaneous edema | | is noted along the left neck. There is no evidence of a retropharyngeal fluid | | collection. | |There is no pneumothorax. No focal airspace consolidation is present. There is no interstit ial fibrosis. There is moderate degenerative disc disease of the cervical spine. There are n o aggressive lytic or blastic lesions. | | | |IMPRESSION: | |1. There is demonstration of tonsillitis with a peritonsillar abscess involving the left p alatine tonsil. Extensive subcutaneous edema is noted along the left neck. There is no evide nce of a retropharyngeal fluid collection. | | | | | + + documented in this encounter Visit Diagnoses + + | Diagnosis | + + | Peritonsillar abscess | + + documented in this encounter
--- OUTSIDE RECORDS SUMMARY | ~2019-05-10 | XMS | Encounter Summary ---
Demographics + + + | Address | [address] | | | [place] [address] | + + + | Home Phone | | + + + | Preferred Language | Unknown | + + + | Marital Status | | + + + | Sabianist Affiliation | 1038 | + + + | Race | Unknown | + + + | Ethnic Group | Unknown | + + + Author + + + | Author | [facility] | | | and Laloana | + + + | Organization | [facility] | | | and [place] | [...] + | Beverly Perez | ECON | [place] | | | | | [address] | | + + + + + Care Team Providers + +------+ + | Care Financial Systems Manager Name | Role | Phone | + +------+ + | Sia Zheng | PCP | | + +------+ + Encounter Details +--------+ + + + + | Date | Type | Department | Care Team | Description | +--------+ + + + + | 09/13/ | Lab | [facility] | Jhoana Barreto | End stage renal | | 2019 | Requisition | [facility] | M, DO [address] | disease (HCC); | | | | [address] [place] | [address] | state, | | | | [place], [place] | [place], [place] | incidental | | | | [address] | [address] | | | | | [phone] | | | +--------+ + + + [...] + | , SERUM, | Routin | 09/13/2018 | End stage renal | Results for this | | QUAL | e | 10:25 AM | disease (HCC) | procedure are in the | | | | PDT | state, | results section. | | | | | incidental | | + +--------+ + + + documented in this encounter Results , Serum, Qual (09/13/2018 10:25 AM PDT) + + + + + + | Component | Value | Ref Range | Performed | Pathologist | | | | | At | Signature | + + + + + + | hCG Screen, | Negative | Negative | [facility] | | | Serum | | | [facility] | | | | [...] ST. | [address] | [place] | [phone] | | [facility] | | [address] | | | - LABORATORY | | | | + + + + + documented in this encounter Visit Diagnoses + + | Diagnosis | + + | End stage renal disease (HCC) End stage renal disease | + + | state, incidental | + + documented in this encounter Additional Health Concerns + + + + | Infection | Noted Time | Resolved Time | + + + + | Methicillin-resistant Staphylococcus aureus | 03/23/2018 12:00 AM | | | | PDT | | + + + + documented as of this encounter"
--- OUTSIDE RECORDS SUMMARY | ~2019-05-10 | XMS | Encounter Summary ---
Demographics + + + | Address | [address] | | | [place] [address] | + + + | Home Phone | | + + + | Preferred Language | Unknown | + + + | Marital Status | | + + + | Episcopalian Affiliation | 1038 | + + + | Race | Unknown | + + + | Ethnic Group | Unknown | + + + Author + + + | Author | [facility] | | | and [place] | + + + | Organization | [facility] | | | and [place] [...] [place] | | | | | [address] | | + + + + + Care Team Providers + +------+ + | Care Rivet Tosser Name | Role | Phone | + [...] | [address] | [address] | | | | | [place], [place] | [place], | | | | | [address] | [place] [address] | | | | | [phone] | [phone] | | | | | | | [...]
--- OUTSIDE RECORDS SUMMARY | ~2019-05-10 | XMS | Encounter Summary ---
Demographics + + + | Address | [address] | | | [place] [address] | + + + | Home Phone [...] + | Author | [facility] | | | and [place]ana | + + + | Organization | [facility] | | | and [place] [...] [place] | | | | | [address] | | + + + + + Care Team Providers + +------+ + | Care Bulb Assembler Name | Role | Phone | + +------+ + PCP | Unavailable | + +------+ + Encounter Details +--------+ + + + + | Date | Type | Department | Care Team | Description | +--------+ + + + + | 03/13/ | Hospital | [facility] | Lili Kovacs | | | 1997 | Encounter | [facility] | [facility] | | | | EMERGENCY [address] | [facility] [address] | | | | [address] [place], [place] | [address] | | | | | [address] | [place] [address] | | | | | [phone] | [phone] Vickie, | | | | | | MD Luanne [address] | | | | | | [address] [place], [place] | | | | | | [address] | | | | | | | [...]
--- OUTSIDE RECORDS SUMMARY | ~2019-05-10 | XMS | Encounter Summary ---
Demographics + + + | Address | [address] | | | [place] [address] | + + + | Home Phone [...] | Author | [facility] | | | and [place] | + + + | Organization | [facility] | [...] [place] | | | | | [address] | | + + + + + Care Team Providers + +------+ + | Care Sweeper Driver Name | Role | Phone | + +------+ + PCP | Unavailable | + +------+ + Encounter Details +--------+ + + + + | Date | Type | Department | Care Team | Description | +--------+ + + + + | 07/08/ | Hospital | [facility] | Conversion | Pain | | 2019 | Encounter | CONVERSION [address] | Transaction, | | | | | [address] | Provider Unknown | | | | | [place], [place] | [phone] | | | | | [address] | | | | | | [phone] | | | +--------+ + + + [...] + + +---------+ + + | B Ocgupiy-N-Uopvn | Take 1 Tab by mouth. | [...] + + +---------+ + + | B Fllcgeq-Y-Bjeug | Take 1 tablet by | 30 [...] | | | | | | | [facility] | | | | | | | [facility]]. | | | | | + + [...] | | | | | | | ([facility]) | | | | | | + [...] XR CHEST 1 VIEW | Routin | 07/08/2018 | | Results for this | | | e | 3:13 AM | | procedure are in the | | | | PST | | results section. | + +--------+ + + + documented in this encounter Results XR Chest 1 Vw (07/08/2018 3:13 AM PST) + + | Specimen | + + | | + + + + + | Narrative | Performed At | + + + | This is a non-reportable procedure without a radiologist report and | | | is used for image storage only | | + + + + + | Procedure Note | + + | Rickie Flannery - 01/17/2019 9:37 PM PDT This is a non-reportable procedure | | without a radiologist report and isused for image storage only | + + documented in this encounter Visit Diagnoses + + | Diagnosis | + + | Pain Generalized pain | + + documented in this encounter Additional Health Concerns + + + + | Infection | Noted Time | Resolved Time | + + + + | Methicillin-resistant Staphylococcus aureus | 03/23/2018 12:00 AM | | | | PDT | | + + + + documented as of this encounter"
--- OUTSIDE RECORDS SUMMARY | ~2019-05-10 | XMS | Encounter Summary ---
Demographics + + + | Address | [address] | | | [place] [address] | + + + | Home Phone | | + + + | Preferred Language | Unknown | + + + | Marital Status | | + + + | Adventist Affiliation | 1038 | + + + | Race | Unknown | + + + | Ethnic Group | Unknown | + + + Author + + + | Author | [facility] | | | and [place] | + + + | Organization | [facility] | | | [...] [place] | | | | | [address] | | + + + + + Care Team Providers + +------+ + | Care Child Psychometrist Name | Role | Phone | + +------+ + PCP | Unavailable | + +------+ + Reason for Visit +--------+ + | Reason | Comments | +--------+ + | Other | Non adherence to dialysis plan | +--------+ + Encounter Details +--------+ + + + + | Date | Type | Department | Care Team | Description | +--------+ + + + + | 12/22/ | Telephone | [facility] [place] | [place], | Other (Non adherence | | 2019 | | NEPHROLOGY [address] | [address] | to dialysis plan) | | | | [address] | [address] | | | | | [place], [place] | [address] [place] | | | | | [address] | [address] | | | | | [phone] | | | +--------+ + + + [...]
--- OUTSIDE RECORDS SUMMARY | ~2019-05-10 | XMS | Encounter Summary ---
Demographics + + + | Address | [address] | | | [place] [address] | + + + | Home Phone | | + + + | Preferred Language | Unknown | + + + | Marital Status | | + + + | Faith Affiliation | 1038 | + + + | Race | Unknown | + + + | Ethnic Group | Unknown | + + + Author + + + | Author | [facility] | | | and [place] | + + + | Organization | [facility] | | | and [...] [place] | | | | | [address] | | + + + + + Care Team Providers + +------+ + | Care Student Life Coordinator Name | Role | Phone | + +------+ + PCP | Unavailable | + +------+ + Encounter Details +--------+ + + + + | Date | Type | Department | Care Team | Description | +--------+ + + + + | 11/09/ | Abstract | [facility] | Provider, | | | 2017 | | SURGERY [address] | [address] | | | | | [address] [place], [place] | [address] | | | | | [address] | [place] [address] | | | | | [phone] | | | +--------+ + + + [...]
--- OUTSIDE RECORDS SUMMARY | ~2019-05-10 | XMS | Encounter Summary ---
Demographics + + + | Address | [address] | | | [place] [address] | + + + | Home Phone | | + + + | Preferred Language | Unknown | + + + | Marital Status | | + + + | Mu-Ism Affiliation | 1038 | + + + | Race | Unknown | + + + | Ethnic Group | Unknown | + + + Author + + + | Author | [facility] | | | and [place] | + + + | Organization | [facility] | | | and [place] [...] [place] | | | | | [address] | | + + + + + Care Team Providers + +------+ + | Care Grinder Operator Name | Role | Phone | + +------+ + PCP | Unavailable | + +------+ + Encounter Details +--------+ + + + + | Date | Type | Department | Care Team | Description | +--------+ + + + + | 08/09/ | Abstract | [facility] [place] | Royergeorge[place]hoana | | | 2017 | | NEPHROLOGY [address] | M, DO [address] | | | | | [address] | [place] | | | | | [place], [place] | [place], [place] | | | | | [address] | [address] | | | | | [phone] | | | +--------+ + + + [...] | EXTERNAL LAB: [facility] | Routin | 08/09/2017 | | Results for this | | | e | | | procedure are in the | | | | | | results section. | + +--------+ + + + | EXTERNAL LAB: | Routin | 08/09/2017 | | Results for this | | GLUCOSE | e | | | procedure are in the | | | | | | results section. | + +--------+ + + + | EXTERNAL LAB: | Routin | 08/09/2017 | | Results for this | | ALBUMIN | e | | | procedure are in the | | | | | | results section. | + +--------+ + + + | EXTERNAL LAB: | Routin | 08/09/2017 | | Results for this | | PHOSPHORUS | e | | | procedure are in the | | | | | | results section. | + +--------+ + + + | EXTERNAL LAB: | Routin | 08/09/2017 | | Results for this | | CALCIUM | e | | | procedure are in the | | | | | | results section. | + +--------+ + + + | EXTERNAL LAB: CARBON | Routin | 08/09/2017 | | Results for this | | DIOXIDE | e | | | procedure are in the | | | | | | results section. | + +--------+ + + + | EXTERNAL LAB: | Routin | 08/09/2017 | | Results for this | | CHLORIDE | e | | | procedure are in the | | | | | | results section. | + +--------+ + + + | EXTERNAL LAB: | Routin | 08/09/2017 | | Results for this | | POTASSIUM | e | | | procedure are in the | | | | | | results section. | + +--------+ + + + | EXTERNAL LAB: SODIUM | Routin | 08/09/2017 | | Results for this | | | e | | | procedure are in the | | | | | | results section. | + +--------+ + + + | EXTERNAL LAB: CBC | Routin | 08/09/2017 | | Results for this | | | e | | | procedure are in the | | | | | | results section. | + +--------+ + + + | EXTERNAL LAB: EGFR | Routin | 08/09/2017 | | Results for this | | | e | | | procedure are in the | | | | | | results section. | + +--------+ + + + | EXTERNAL LAB: | Routin | 08/09/2017 | | Results for this | | CREATININE | e | | | procedure are in the | | | | | | results section. | + +--------+ + + + documented in this encounter Results External Lab: BUN (08/09/2017) + +--------+ + + + | Component | Value | Ref Range | Performed | Pathologist | | | | | At | Signature | + +--------+ + + + | BUN, | 47 (A) | 6 - 23 | EXTERNAL | | | External | | | LAB | | + +--------+ + + + + +---------+ + + | Performing | Address | City/State/Zipcode | Phone Number | | Organization | | | | + +---------+ + + | EXTERNAL LAB | | | | + +---------+ + + External Lab: Glucose (08/09/2017) + +---------+ + + + | Component | Value | Ref Range | Performed | Pathologist | | | | | At | Signature | + +---------+ + + + | Glucose, | 118 (A) | 70 - 100 | EXTERNAL | | | External | | | LAB | | + +---------+ + + + + +---------+ + + | Performing | Address | City/State/Zipcode | Phone Number | | Organization | | | | + +---------+ + + | EXTERNAL LAB | | | | + +---------+ + + External Lab: Albumin (08/09/2017) + +-------+ + + + | Component | Value | Ref Range | Performed | Pathologist | | | | | At | Signature | + +-------+ + + + | Albumin, | 4.4 | 3.5 - 5 | EXTERNAL | | | External | | | LAB | | + +-------+ + + + + +---------+ + + | Performing | Address | City/State/Zipcode | Phone Number | | Organization | | | | + +---------+ + + | EXTERNAL LAB | | | | + +---------+ + + External Lab: Phosphorus (08/09/2017) + +-------+ + + + | Component | Value | Ref Range | Performed | Pathologist | | | | | At | Signature | + +-------+ + + + | Phosphorus, | 4.0 | 2.5 - 5 | EXTERNAL | | | External | | | LAB | | + +-------+ + + + + +---------+ + + | Performing | Address | City/State/Zipcode | Phone Number | | Organization | | | | + +---------+ + + | EXTERNAL LAB | | | | + +---------+ + + External Lab: Calcium (08/09/2017) + +-------+ + + + | Component | Value | Ref Range | Performed | Pathologist | | | | | At | Signature | + +-------+ + + + | Calcium, | 9.5 | 8.4 - 10.2 | EXTERNAL | | | External | | | LAB | | + +-------+ + + + + +---------+ + + | Performing | Address | City/State/Zipcode | Phone Number | | Organization | | | | + +---------+ + + | EXTERNAL LAB | | | | + +---------+ + + External Lab: Carbon Dioxide (08/09/2017) + +-------+ + + + | Component | Value | Ref Range | Performed | Pathologist | | | | | At | Signature | + +-------+ + + + | Carbon | 22 | 19 - 32 | EXTERNAL | | | [...] + +---------+ + + External Lab: Chloride (08/09/2017) + +-------+ + + + | Component [...] + +---------+ + + External Lab: Potassium (08/09/2017) + +---------+ + + + | Component | Value | Ref Range | Performed | Pathologist | | | | | At | Signature | + +---------+ + + + | Potassium, | 3.1 (A) | 3.5 - 5.1 | EXTERNAL | | | External | | | LAB | | + +---------+ + + + + +---------+ + + | Performing | Address | City/State/Zipcode | Phone Number | | Organization | | | | + +---------+ + + | EXTERNAL LAB | | | | + +---------+ + + External Lab: Sodium (08/09/2017) + +-------+ + + + | Component [...] + +---------+ + + External Lab: CBC (08/09/2017) + + + + + + | Component | Value | Ref Range | Performed | Pathologist | | | | | At | Signature | + + + + + + | WBC, | 7.4 | 4 - 11 | EXTERNAL | | | External | | | LAB | | + + + + + + | HGB, | 10.9 (A) | 12 - 16 | EXTERNAL | | | External | | | LAB | | + + + + + + | HCT, | 31.5 (A) | 35 - 45 | EXTERNAL | | | External | | | LAB | | + + + + + + | PLT, | 242 | 140 - 440 | EXTERNAL | | | External | | | LAB | | + + + + + + | RBC, | 3.62 (A) | 4 - 6 | EXTERNAL | | | External | | | LAB | | + + + + + + | MCV, | 87 | 80 - 100 | EXTERNAL | | | External | | | LAB | | + + + + + + | RDW, | 17.4 (A) | 10.5 - 15 | EXTERNAL | | | External | | | LAB | | + + + + + + + +---------+ + + | Performing | Address | City/State/Zipcode | Phone Number | | Organization | | | | + +---------+ + + | EXTERNAL LAB | | | | + +---------+ + + External Lab: eGFR (08/09/2017) + +--------+ + + + | Component | Value | Ref Range | Performed | Pathologist | | | | | At | Signature | + +--------+ + + + | eGFR, | 17 (A) | 60 | EXTERNAL | | [...] + +---------+ + + External Lab: Creatinine (08/09/2017) + + + + + + | Component | Value | Ref Range | Performed | Pathologist | | | | | At | Signature | + + + + + + | Creatinine, | 3.12 (A) | 0.6 - 1.3 | EXTERNAL [...]
--- OUTSIDE RECORDS SUMMARY | ~2019-05-10 | XMS | Encounter Summary ---
Demographics + + + | Address | [address] | | | [place] [address] | + + + | Home Phone | | + + + | Preferred Language | Unknown | + + + | Marital Status | | + + + | Tenriism Affiliation | 1038 | + + + | Race | Unknown | + + + | Ethnic Group | Unknown | + + + Author + + + | Author | [facility] | | | and [place] | + + + | Organization | [facility] | | | and [...] [place] | | | | | [address] | | + + + + + Care Team Providers + +------+ + | Care Shaker Repairer Name | Role | Phone | + +------+ + PCP | Unavailable | + +------+ + Encounter Details +--------+ + + + + | Date | Type | Department | Care Team | Description | +--------+ + + + + | 01/15/ | [facility] PH[facility]IC[facility], [place] | | | 1982 - | Encounter | [facility] | | | | | | GENERIC CONV [id number] | | | | 06/06/ | | [address] [place], | | | | 1995 | | [place] [address] | | | | | | [phone] | | | +--------+ + + + [...]
--- OUTSIDE RECORDS SUMMARY | ~2019-05-10 | XMS | Encounter Summary ---
Demographics + + + | Address | [address] | | | [place] [address] | + + + | Home Phone | | + + + | Preferred Language | Unknown | + + + | Marital Status | | + + + | Episcopal Affiliation | 1038 | + + + | Race | Unknown | + + + | Ethnic Group | Unknown | + + + Author + + + | Author | [facility] | | | and [place] | + + + | Organization | [facility] | | | and [place] [...] [place] | | | | | [address] | | + + + + + Care Team Providers + +------+ + | Care Import/Export Analyst Name | Role | Phone | + +------+ + PCP | Unavailable | + +------+ + Encounter Details +--------+ + + + + | Date | Type | Department | Care Team | Description | +--------+ + + + + | 07/14/ | Imaging | [facility] | Provider, | | | 2019 | Exam | [facility] EX[facility] | MD [address] | | | | | IMAGING | [address] | | | | | [phone] | [place] [address] | | +--------+ + + + + [...] XR CHEST 1 VIEW | Routin | 04/01/2018 | | Results for this | | | e | 3:50 AM | | procedure are in the | | | | PDT | | results section. | + +--------+ + + + documented in this encounter Results XR Chest 1 Vw (04/01/2018 3:50 AM PDT) + + | Specimen | [...]
--- OUTSIDE RECORDS SUMMARY | ~2019-05-10 | XMS | Encounter Summary ---
Demographics + + + | Address | [address] | | | [place] [address] | + + + | Home Phone | | + + + | Preferred Language | Unknown | + + + | Marital Status | | + + + | Jehovah'S Witness Affiliation | 1038 | + + + | Race | Unknown | + + + | Ethnic Group | Unknown | + + + Author + + + | Author | [facility] | | | and [place] | + + + | Organization | [facility] [...] [place] | | | | | [address] | | + + + + + Care Team Providers + +------+ + | Care Service Station Manager Name | Role | Phone | [...] | [address] | [address] | | | | | [place], [place] | [place], | | | | | [address] | [place] [address] | | | | | [phone] | [phone] | | | | | | | [...]
--- OUTSIDE RECORDS SUMMARY | ~2019-05-10 | XMS | Encounter Summary ---
Demographics + + + | Address | [address] | | | [place] [address] | + + + | Home Phone | | + + + | Preferred Language | Unknown | + + + | Marital Status | | + + + | Yarsani Affiliation | [id number] | + + + | Race | Unknown | + + + | Ethnic Group | Unknown | + + + Author + + + | Author | [facility] | | | and [place] | + + + | Organization | [facility] | | | and [place] [...] + | [place] | ECON | [place] | | | | | [address] | | + + + + + Care Team Providers + +------+ + | Care Piper Helper Name | Role | Phone | + +------+ + PCP | Unavailable | + +------+ + Reason for Visit + + + | Reason | Comments | + + + | New Patient | She does not have PCP Dr Peck suggested she see Carina. She has | | | appt with Dr Ring today. | + + + | Medication Refill | She took her last lasix 2 days ago and her last oxycodone last | | | night. | + + + Encounter Details +--------+---------+ + + + | Date | Type | Department | Care Team | Description | +--------+---------+ + + + | 09/01/ | Office | [facility] | ZuleimaCarina FNP | Encounter to | | 2018 | Visit | [facility] | [address] | establish care | | | | [address] | [place] | (Primary Dx); CKD | | | | [place] | [address] | (chronic kidney | | | | [address] | | disease), stage IV | | | | [phone] | | (HCC); AUNG (acute | | | | | | kidney injury) | | | | | | (HCC); Essential | | | | | | hypertension, | | | | | | malignant; Anxiety; | | | | | | Depression, | | | | | | unspecified | | | | | | depression type; | | | | | | Hypokalemia | +--------+---------+ + + + Social History [...] + + + | Blood Pressure | 130/74 | 09/01/2017 11:12 AM | | | | | PDT | | + + + + + | Pulse | 77 | 09/01/2017 11:12 AM | | | | | PDT | | + + + + + | Temperature | 37.2 C (98.9 F) | 09/01/2017 11:12 AM | | | | | PDT | | + + + + + | Respiratory Rate | 20 | 09/01/2017 11:12 AM | | | | | PDT | | + + + + + | Oxygen Saturation | 99% | 09/01/2017 11:12 AM | | | | | PDT | | + + + + + | Inhaled Oxygen | - | - | | | Concentration | | | | + + + + + | Weight | 54.4 kg (119 lb 14.9 | 09/01/2017 11:12 AM | | | | oz) | PDT | | + + + + + | Height | 167.6 cm (5' 5.98") | 09/01/2017 11:12 AM | | | | | PDT | | + + + + + | Body Mass Index | 19.37 | 09/01/2017 11:12 AM | | | | | PDT | | + + + + + documented in this encounter Progress Carina Russell, ZOIE - 09/01/2017 11:00 AM PDT Subjective: Patient ID: Aurea Perez is a 37 y.o. female. Establish care. 7 years. She has 6 children, adopted her sister's child when th e child was 7, the child is now 23 and does not live in this area. 5 children ages 18, 17, 15, 6, 4. All of her children except the 6-year-old live with her mother. She was for 16 years, first 3 children are from him. Second 2 children are from a different gentlem an. The father of the 4-year-old has custody of him. She used to work at [employer] and [employer]. 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 Her oldest daughter will be graduating thi s year, her 17-year-old will be graduating the following year. She comes to visit today with her friend, not currently her boyfriend but is the father to her youngest 2 children. After her she relapsed and started using methamphetamine again off and on for 7 years. Currently clean and sober 7 weeks. Patient has multiple medical difficulties with recent hospitalizations. Review of chart re [facility] hospitalization 07/03/17 for acute hypoxic respiratory failure from [facility]una. Was 20 weeks with active methamphetamine abuse. 07/06/17 transferred to [facility]. Transferred to [facility] 07/16/17. terminated as it was threatening her life. Discharged and sent home and she recalls being told not to fill her Lasix prescription. 07/26/17 admitted to [place] with acute respiratory failure with hypo tamera. Discharged 07/30/17. Dr Barreto has been following her acute kidney injury. She is olson ving labs done regularly for CBC and chemistry panel at [facility]. Unfortunately she now olson s stage IV kidney disease. Hypertension controlled currently cord 25 mg twice a day with ni fedipine 30 mg daily. Last visit with Dr. Barreto 08/11/17. She has a visit today to follow up with him shortly after this appointment. She tells me her sister is compatible for a ki dney transplant and plans to discuss this with Dr. Barreto today. She is due for counseling and medication management 09/13/17 and 10/15/17 [facility] in [facility]. Since her recent hospitalization she has been clean and sober and off methamphetamine as we ll as tobacco. She started going back to amish. She goes to [employer] studies. Unfortunately her living situation is not the greatest currently does not actually have a place to live a s the father of her children took her name off of their lease when she was in the hospital o n life support. Even if her name was still on the lease that there is a not a great place f or her to live. She states most nights with a girlfriend. Spends much of her days over at her son's father's house to be able to see her son. she really wants to get her life straigh tened back out. Financially she gets money for her children from their father who passed aw ay, $1200 of this goes to her mom to support the children. A nurse through her insurance is trying to help her get signed up for housing. Both of her brothers are alcoholics. Her mo m does not use any drugs or alcohol. Her son's father drinks alcohol and uses tobacco. History of brain damage, approximately 4 years ago when she delivered her last child she we nt 30 minutes without oxygen, was in a coma. Has quite a bit of anxiety and depression which is understandable. In the hospital they we re giving her benzodiazepine, I would like to avoid that especially with her history of drug abuse. She's never used anything else for depression or anxiety, like to try her on fluoxe celine. She was sent home from the hospital with oxycodone, was taking this for her stomach p ain, she took her last pill yesterday. She complains of her whole body hurting with any mov ement. She ran out of her Lasix 2 days ago states her voice is getting raspy. She still ta avelino her potassium 20 mEq daily. benadryl 1-2 times a week for sleep as needed. 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 Past Medical History: Diagnosis Date Anemia Anxiety Arthritis CHF (congestive heart failure) ([facility]) Depression Encounter for blood transfusion Heart murmur Hypertension Substance abuse Past Surgical History: Procedure Laterality Date SECTION Family History Problem Relation Age of Onset Heart disease Sister Social History Social History Marital status: Single Spouse name: N/A Number of children: N/A Years of education: N/A Social History Main Topics Smoking status: Former Smoker Packs/day: 0.50 Quit date: 06/13/2017 Smokeless tobacco: Never Used Alcohol use No Drug use: Yes Types: Marijuana, Methamphetamines Comment: history of Methamphetamines x 2 months Sexual activity: Not Asked Other Topics Concern None Social History Narrative None Current Outpatient Prescriptions: carvedilol (COREG) 25 mg tablet, Take 1 tablet by mouth 2 times daily (with breakfast & dinner)., Disp: 60 tablet, Rfl: 2 diphenhydrAMINE (BENADRYL) 25 mg tablet, Take 25 mg by mouth nightly as needed for Itc moises., Disp: , Rfl: FLUoxetine (PROZAC) 10 mg capsule, Take 1 capsule by mouth Daily., Disp: 30 capsule, R fl: 0 furosemide (LASIX) 40 mg tablet, Take 1 tablet by mouth Daily., Disp: 30 tablet, Rfl: 2 NIFEdipine (ADALAT CC) 60 MG 24 hr tablet, Take 1 tablet by mouth Daily., Disp: 30 tab let, Rfl: 2 oxyCODONE (ROXICODONE) 5 mg tablet, Take 1 tablet by mouth every 6 hours as needed for Pain., Disp: 15 tablet, Rfl: 0 pantoprazole (PROTONIX) 40 mg tablet, Take 1 tablet by mouth every morning (before adilene akfast)., Disp: 30 tablet, Rfl: 0 potassium chloride (K-DUR) 20 mEq ER tablet, Take 1 tablet by mouth Daily., Disp: 30 t ablet, Rfl: 2 Allergies Allergen Reactions Codeine Anaphylaxis Sumatriptan Anaphylaxis Intolerance No active intolerances/contraindications Review of Systems Constitutional: Positive for malaise/fatigue. Negative for chills, diaphoresis and fever. No hot/cold intolerance HENT: Negative for hearing loss. Eyes: Negative for blurred vision and double vision. Visual disturbances when blood pressure gets high. Respiratory: Positive for cough and shortness of breath. Cardiovascular: Positive for palpitations. Negative for chest pain. Gastrointestinal: Negative for blood in stool, constipation, diarrhea, melena, nausea and v omiting. Genitourinary: Positive for frequency. No urinary incontinence, excessive nighttime urination, HIV exposure, or risk for STD. Musculoskeletal: Positive for joint pain. Achy all over. Neurological: Negative for headaches. Endo/Heme/Allergies: Does not bruise/bleed easily. Psychiatric/Behavioral: Positive for depression. Negative for memory loss and suicidal idea s. The patient is nervous/anxious. Objective: BP 130/74 | Pulse 77 | Temp 37.2 C (98.9 F) (Temporal) | Resp 20 | Ht 1.676 m (5' 5 .98") | Wt 54.4 kg (119 lb 14.9 oz) | SpO2 99% | ? No | BMI 19.37 kg/m Physical Exam Constitutional: She is oriented to person, place, and time and well-developed, well-nourish ed, and in no distress. Vital signs are normal. HENT: Head: Normocephalic and atraumatic. Right Ear: Hearing and external ear normal. Left Ear: Hearing and external ear normal. Nose: Nose normal. Mouth/Throat: Uvula is midline, oropharynx is clear and moist and mucous membranes are norm al. Eyes: EOM are normal. Pupils are equal, round, and reactive to light. Right eye exhibits no discharge. Left eye exhibits no discharge. Right eye exhibits no nystagmus. Left eye exhibi ts no nystagmus. Neck: Normal range of motion. Neck supple. No tracheal deviation present. No thyromegaly pr esent. Cardiovascular: Normal rate, regular rhythm, S1 normal, S2 normal and normal heart sounds. No murmur heard. Pulses: Carotid pulses are 2+ on the right side, and 2+ on the left side. Radial pulses are 2+ on the right side, and 2+ on the left side. Dorsalis pedis pulses are 2+ on the right side, and 2+ on the left side. Posterior tibial pulses are 2+ on the right side, and 2+ on the left side. No pedal edema, Did not appreciate a murmur during the exam today. Pulmonary/Chest: Effort normal and breath sounds normal. No respiratory distress. She has n o decreased breath sounds. She has no wheezes. She has no rhonchi. She has no rales. Abdominal: Soft. Bowel sounds are normal. There is generalized tenderness. There is no rebo und, no guarding and no CVA tenderness. She is extremely tender throughout entire abdomen and unable to palpate very deep. Musculoskeletal: Normal range of motion. Weakness bilaterally on exam although muscle strength is symmetric. Lymphadenopathy: Head (right side): No preauricular and no posterior auricular adenopathy present. Head (left side): No preauricular and no posterior auricular adenopathy present. She has no cervical adenopathy. Right: No supraclavicular adenopathy present. Left: No supraclavicular adenopathy present. Neurological: She is alert and oriented to person, place, and time. She has normal motor sk ills and intact cranial nerves. Gait normal. Reflex Scores: Patellar reflexes are 2+ on the right side and 2+ on the left side. Skin: Skin is warm, dry and intact. Psychiatric: Mood, memory, affect and judgment normal. Assessment/Plan: 1. Encounter to establish care 2. CKD (chronic kidney disease), stage IV ([facility]) Keep up with Dr Barreto. Continue current medications. Refilled all medications - furosemide (LASIX) 40 mg tablet; Take 1 tablet by mouth Daily. Dispense: 30 tablet; Refi ll: 2 - carvedilol (COREG) 25 mg tablet; Take 1 tablet by mouth 2 times daily (with breakfast & d inner). Dispense: 60 tablet; Refill: 2 - Vitamin D, Deficiency Screen (25-Hydroxy); Future - TSH; Future - Vitamin B-12; Future - Lipid Panel; Future - Comprehensive Metabolic Panel; Future - CBC w/ Auto Differential; Future 3. AUNG (acute kidney injury) ([facility]) See #2 - Vitamin D, Deficiency Screen (25-Hydroxy); Future - TSH; Future - Vitamin B-12; Future - Lipid Panel; Future - Comprehensive Metabolic Panel; Future - CBC w/ Auto Differential; Future 4. Essential hypertension, malignant Continue current medications, refills sent in. - NIFEdipine (ADALAT CC) 60 MG 24 hr tablet; Take 1 tablet by mouth Daily. Dispense: 30 ta blet; Refill: 2 - carvedilol (COREG) 25 mg tablet; Take 1 tablet by mouth 2 times daily (with breakfast & d inner). Dispense: 60 tablet; Refill: 2 - Vitamin D, Deficiency Screen (25-Hydroxy); Future - TSH; Future - Vitamin B-12; Future - Lipid Panel; Future - Comprehensive Metabolic Panel; Future - CBC w/ Auto Differential; Future 5. Anxiety Start fluoxetine 10 mg daily. Avoid benzodiazepines due to her history. - FLUoxetine (PROZAC) 10 mg capsule; Take 1 capsule by mouth Daily. Dispense: 30 capsule; Refill: 0 6. Depression, unspecified depression type See #5 - FLUoxetine (PROZAC) 10 mg capsule; Take 1 capsule by mouth Daily. Dispense: 30 capsule; Refill: 0 7. Hypokalemia Continue potassium 20 mEq daily. - potassium chloride (K-DUR) 20 mEq ER tablet; Take 1 tablet by mouth Daily. Dispense: 30 tablet; Refill: 2 Discussed in length with this patient that I think she would be better off with either shannan hancock M.D. or internal medicine [place]. I would love to help her but due to her complex history I think that she would get better care elsewhere. She was going to discuss this wit Dr. Barreto today. I will also have my medical administrative technician check into different family [facility] doctors and internal medicine doctors in [place] to see if they can take her on as t he patient. In the meantime labs ordered with return to clinic appointment in 4 weeks in ca se she can't get in elsewhere for new patient consult. Try to improve living situation if po ssible. Keep visits scheduled with Sara Campbell. Patient understands, accepts, and agrees with this plan. Greater than 45 minutes spent rahul patient regarding the above mentioned diagnoses in counseling and coordination of care. Po rtions of this report were transcribed using [employer] voice recognition [employer]. Although effort was made in correcting the errors; grammatical and sound alike errors may still be present. documented in this enc ounter Plan of Treatment Not on filedocumented as of this encounter Results CBC w/ Auto Differential (09/29/2017 2:45 PM PDT) + + + + + + | Component | Value | Ref Range | Performed | Pathologist | | | | | At | Signature | + + + + + + | WBC | 5.7 | 4.0 - 11.0 K/uL | [facility] | | [facility] | [facility] | | | | | | [facility] | | | | | | [facility] - | | | | | | LABORATORY | | + + + + + + | RBC | 4.60 | 3.70 - 5.20 | [facility] | | | | | M/uL | [facility] | | | | | | [facility] - | | | | | | LABORATORY | | + + + + + + | Hemoglobin | 13.1 | 11.5 - 16.0 | [facility] | | | | | g/dL | [facility] | [facility] | | | [facility] | | | | | | [facility] - | | | | | | LABORATORY | | + + + + + + | Hematocrit | 40.8 | 34.0 - 47.0 % | [facility] | | | | | | [facility] | | | | | | [facility] | | | | | | CENTER - | | | | | | LABORATORY | | + + + + + + | MCV | 88.7 | 83.0 - 101.0 fL | [facility] | | | | | | [facility] | | | | | | [facility]ICAL | | | | | | CENTER - | | | | | | LABORATORY | | + + + + + + | MCH | 28.5 | 28.0 - 35.0 pg | [facility] | | | | [facility] | [facility] | | | | | | [facility] | | | | | | C[facility] - | | | | | | LABORATORY | | + + + + + + | MCHC | 32.2 | 32.0 - 36.0 | [facility] | | | | | g/dL | [facility] | | | | | | [facility] | | | | | | CENTER - | | | | | | LABORATORY | | + + + + + + | RDW-CV | 16.3 (H) | <15.0 % | [facility] | | | | | | [facility] | | | | | | [facility] | | | | | | CENTER - | | | | | | LABORATORY | | + + + + + + | Platelet | 208 | 140 - 440 K/uL | [facility] | | | Count | | | [facility] | | | | | | [facility] | | | | | | CENTER - | | | | | | LABORATORY | | + + + + + + | MPV | 7.6 | fL | [facility] | | | | | | [facility] | | | | | | [facility] | | | | | | CENTER - | | | | | | LABORATORY | | + + + + + + | % | 71.9 | 45.0 - 82.0 % | [facility] | | | Neutrophils | | | [facility] | | | | | | [facility] | | | | | | CENTER - | | | | | | LABORATORY | | + + + + + + | % | 20.3 | 20.0 - 45.0 % | [facility] | | | Lymphocytes | | | [facility] | | | | | | [facility]ICAL | | | | | | CENTER - | | | | | | LABORATORY | | + + + + + + | % Monocytes | 5.3 | 4.0 - 12.0 % | [facility] | | | | | | [facility] | | | | | | [facility] | | | | | | CENTER - | | | | | | LABORATORY | | + + + + + + | % | 2.0 | 0.0 - 5.0 % | [facility] | | | Eosinophils | | | [facility] | | | | | | MEDICAL | | | | | | CENTER - | | | | | | LABORATORY | | + + + + + + | % Basophils | 0.5 | 0.0 - 1.0 % | [facility] | | | | | | [facility] | | | | | | [facility] | | | | | | CENTER - | | | | | | LABORATORY | | + + + + + + | Absolute | 4.10 | 1.80 - 8.50 | [facility] | | | Neutrophils | | K/uL | [facility] | | | | | | [facility] | | | | | | CENTER - | | | | | | LABORATORY | | + + + + + + | Absolute | 1.20 | 0.60 - 3.20 | [facility] | | | Lymphocytes | | K/uL | [facility] | | | | | | [facility] | | | | | | CENTER - | | | | | | LABORATORY | | + + + + + + | Absolute | 0.30 | 0.00 - 1.00 | [facility] | | | Monocytes | | K/uL | [facility] | | | | | | [facility] | | | | | | CENTER - | | | | | | LABORATORY | | + + + + + + | Absolute | 0.10 | 0.00 - 0.40 | [facility] | | | Eosinophils | | K/uL | [facility] | | | | | | [facility] | | | | | | CENTER - | | | | | | LABORATORY | | + + + + + + | Absolute | 0.00 | 0.00 - 0.10 | [facility] | | | Basophils | | K/uL | [facility] | | | | | | MEDICAL [...] | + + + + + | [facility] | [address] | [place] | [phone] | | [facility] | | [address] | | | - LABORATORY | | | | + + + + + Comprehensive Metabolic Panel (09/29/2017 2:45 PM PDT) + + + + + + | Component | Value | Ref Range | Performed | Pathologist | | | | | At | Signature | + + + + + + | Na | 140 | 136 - 149 | [facility] | | | | | mmol/L | [facility] | | | | | | MEDICAL | | | | | | CENTER - | | | | | | LABORATORY | | + + + + + + | K | 2.9 (L) | 3.5 - 5.1 | [facility] | | | | | mmol/L | [facility] | | | | | | [facility] | | | | | | CENTER - | | | | | | LABORATORY | | + + + + + + | Cl | 95 (L) | 98 - 109 mmol/L | [facility] | | | | | | [facility] | | | | | | [facility] | | | | | | CENTER - | | | | | | LABORATORY | | + + + + + + | CO2 | 34 (H) | 24 - 31 mmol/L | [facility] | | | | | | [facility] | | | | | | [facility]ICAL | | | | | | CENTER - | | | | | | LABORATORY | | + + + + + + | Anion Gap | 11 | 3 - 16 mmol/L | [facility] | | | | | | [facility] | | | | | | [facility] | | | | | | CENTER - | | | | | | LABORATORY | | + + + + + + | Glucose | 93 | 70 - 109 mg/dL | [facility] | | | | | | [facility] | | | | | | [facility] | | | | | | CENTER - | | | | | | LABORATORY | | + + + + + + | BUN | 8 | 7 - 18 mg/dL | [facility] | | | | | | [facility] | | | | | | [facility] | | | | | | CENTER - | | | | | | LABORATORY | | + + + + + + | Creatinine | 2.82 (H) | 0.60 - 1.30 | [facility] | | | | | mg/dL | [facility] | | | | | | MEDICAL | | | | | | CENTER - | | | | | | LABORATORY | | + + + + + + | eGFR if not | 19 (L)Comment: | >=60 | [facility] | | | | GLOMERULAR FILTRATION | mL/min/1.73m2 | [facility] | | | MACANESE | RATE,ESTIMATED | | MEDICAL | | | | mL/min/1.28m4Asxr than | | CENTER - | | [...] + + + + | Calcium | 9.8 | 8.3 - 10.5 | [facility] | | | | | mg/dL | [facility] | | | | | | MEDICAL | | | | | | CENTER - | | | | | | LABORATORY | | + + + + + + | Albumin | 4.0 | 3.2 - 5.0 g/dL | [facility] | | | | | | [facility] | | | | | | MEDICAL | | | | | | CENTER - | | | | | | LABORATORY | | + + + + + + | Bilirubin | 0.7 | 0.1 - 1.5 mg/dL | [facility] | | | Total | | | [facility] | | | | | | MEDICAL | | | | | | CENTER - | | | | | | LABORATORY | | + + + + + + | Total | 7.8 | 6.0 - 7.8 g/dL | [facility] | | | Protein | | | [facility] | | | | | | MEDICAL | | | | | | CENTER - | | | | | | LABORATORY | | + + + + + + | AST | 18 | 10 - 42 U/L | [facility] | | | | | | [facility] | | | | | | [facility]ICAL | | | | | | CENTER - | | | | | | LABORATORY | | + + + + + + | ALT | 11 | 6 - 45 U/L | [facility] | | | | | | [facility] | | | | | | MEDICAL | | | | | | CENTER - | | | | | | LABORATORY | | + + + + + + | Alkaline | 60 | 40 - 110 U/L | [facility] | | | Phosphatase | | | [facility] | | | | | | MEDICAL | | | | | | CENTER - | | | | | | LABORATORY | | + + + + + + | Globulin | 3.8 | 2.1 - 3.8 g/dL | [facility] | | | | | | [facility] | | | | | | MEDICAL | | | | | | CENTER - | | | | | | LABORATORY | | + + + + + + | Albumin/[place] | 1.1 | 0.8 - 2.0 | [facility] | | | bulin Ratio | | | [facility] | | | | | | MEDICAL | | | | | | CENTER - | | | | | | LABORATORY | | + + + + + + | BUN/Creatin | 2.8 | | [facility] | | | ine Ratio | | | [facility] | | | | | | MEDICAL [...] + | [facility] | [address] | [place] | [phone] | | [facility] | | [address] | | | - LABORATORY | | | | + + + + + Lipid Panel (09/29/2017 2:45 PM PDT) + + + + + + | Component | Value | Ref Range | Performed | Pathologist | | | | | At | Signature | + + + + + + | Triglycerid | 213 (H) | 35 - 160 mg/dL | [facility] | | | es | | | [facility] | | | | | | MEDICAL | | | | | | CENTER - | | | | | | LABORATORY | | + + + + + + | Cholesterol | 241 (H) | 140 - 200 mg/dL | [facility] | | | | | | [facility] | | | | | | MEDICAL | | | | | | CENTER - | | | | | | LABORATORY | | + + + + + + | HDL | 42Comment: New HDL | 28 - 83 mg/dL | [facility] | | | | Reference Range as of | | [facility] | | | | February 14, 2015 | | MEDICAL | | | | Values may be 10-20% | | CENTER - | | | | lower with new, | | LABORATORY | | | | standardized method. | | | | + + + + + + | Chol/HDL | 5.7 | | [facility] | | | Ratio | | | [facility] | | | | | | MEDICAL | | | | | | CENTER - | | | | | | LABORATORY | | + + + + + + | LDL, | 156 (H) | <=130 mg/dL | [facility] | | | Calculated | | | [facility] | | | | | | MEDICAL | | | | | | CENTER - | | | | | | LABORATORY | | + + + + + + + + | Specimen | + + | Blood | + + + + + + + | Performing | Address | City/State[facility] | Phone Number | | Organization | | | | + + + + + | [facility] | [address] | [place] | [phone] | | [facility] | | [address] | | | - LABORATORY | | | | + + + + + Vitamin B-12 (09/29/2017 2:45 PM PDT) + + + + + + | Component | Value | Ref Range | Performed | Pathologist | | | | | At | Signature | + + + + + + | VITAMIN | 721Comment: DEFICIENT: | 180 - 914 pg/mL | [facility] | | | B-12 | <145 | | [facility] | | | | pg/mLINDETERMINATE: | | MEDICAL | | | | 145-180 pg/mL | | CENTER - | | | | | | LABORATORY | | + + + + + + + + | Specimen | + + | Blood | + + + + + + + | Performing | Address | City/State/Zipcode | Phone Number | | Organization | | | | + + + + + | [facility] | [address] | [place] | [phone] | | [facility] | | [address] | | | - LABORATORY | | | | + + + + + TSH (09/29/2017 2:45 PM PDT) + + + + + + | Component | Value | Ref Range | Performed | Pathologist | | | | | At | Signature | + + + + + + | TSH | 1.18Comment: This is a | 0.45 - 5.33 | [facility] | | | | third generation TSH | uIU/mL | [facility] | | | | test. | | MEDICAL | | | | [...] [facility] | [address] | [place] | [phone] | | [facility] | | [address] | | | - LABORATORY | | | | + + + + + Vitamin D, Deficiency Screen (25-Hydroxy) (09/29/2017 2:45 PM PDT) + +--------+ + + + | Component | Value | Ref Range | Performed | Pathologist | | | | | At | Signature | + +--------+ + + + | Vitamin D, | 22 (L) | 30 - 80 ng/mL | [facility] | | | 25 Hydroxy | | | [facility] | | [facility] | | | [facility] | [facility] - | | | | | | LABORATORY | | + +--------+ + + + + + | Specimen | + + | Blood | + + + + + + + | Performing | Address | City/State/Zipcode | Phone Number | | Organization | | | | + + + + + | [facility] | [address] | [place] | [phone] | | [facility] | | [address] | | | - LABORATORY | | | | + + + + + documented in this encounter Visit Diagnoses + + | Diagnosis | + + | Encounter to establish care - Primary Reserved for inherently not codable concepts | | WITHOUT codable children | + + | CKD (chronic kidney disease), stage IV (HCC) Chronic kidney disease, Stage IV | | (severe) | + + | AUNG (acute kidney injury) (HCC) Acute kidney failure, unspecified | + + | Essential hypertension, malignant | + + | Anxiety Anxiety state, unspecified | + + | Depression, unspecified depression type | + + | Hypokalemia Hypopotassemia | + + documented in this encounter
--- OUTSIDE RECORDS SUMMARY | ~2019-05-10 | XMS | Encounter Summary ---
Demographics + + + | Address | [address] | | | [place] [address] | + + + | Home Phone | | + + + | Preferred Language | Unknown | + + + | Marital Status | | + + + | Denominational Affiliation | 1038 | + + + | Race | Unknown | + + + | Ethnic Group | Unknown | + + + Author + + + | Author | [facility] | | | and Laloana | + + + | Organization | [facility] | | | and [...] + | Beverly Perez | ECON | [place] | | | | | [address] | | + + + + + Care Team Providers + +------+ + | Care Mortician Supplies Sales Representative Name | Role | Phone | [...] | | | | | | | AUNG | | | | | | | Possible HUS | | | +--------+--------+ + + + + Encounter Details +--------+ + + + + | Date | Type | Department | Care Team | Description | +--------+ + + + + | 09/01/ | Hospital | [facility] | Jhoana Barreto | | | 2017 | Encounter | [facility] | M, DO [address] | | | | | [address] [place] | [address] | | | | | [place] [address] | [place] | | | | | [phone] | [address] | | | | | | | [...] + + + | Blood Pressure | 151/91 | 09/01/2017 5:09 PM | | | | | PDT | | + + + + + | Pulse | 88 | 09/01/2017 5:09 PM | | | | | PDT | | + + + + + | Temperature | 36.7 C (98.1 F) | 09/01/2017 5:09 PM | | | | | PDT | | + + + + + | Respiratory Rate | 17 | 09/01/2017 5:09 PM | | | | | PDT | | + + + + + | Oxygen Saturation | 100% | 09/01/2017 5:09 PM | | | | | PDT | | + + + + + | Inhaled Oxygen | - | - | | | Concentration | | | | + + + + + | Weight | 54.3 kg (119 lb 11.4 | 09/01/2017 5:11 PM | | | | oz) | PDT | | + + + + + | Height | - | - | | + + + + + | Body Mass Index | 19.33 | 09/01/2017 11:12 AM | | | | | PDT | | + + + + + documented in this encounter Medications at Time of Discharge + + + +---------+ + + | Medication | Sig | Dispensed | Refills | Start | End Date | | | | | | Date | | + + + +---------+ + + | acetaminophen | Take 325-650 mg by | | 0 | / | | | (TYLENOL) 325 mg | [...] Take 1 tablet by | 60 | 2 | 09/02/19 | | | 25 mg | mouth 2 times daily | tablet | | 18 | 8 | | tabletIndications: | (with breakfast & | | | | | | CKD (chronic kidney | dinner). | | | | | | disease), stage IV | | | | | | | (HCC), Essential | | | | | | | hypertension, | | | | | | | malignant | | | | | | + [...] + + + +---------+ + + | FLUoxetine | Take 1 capsule by | 30 | 0 | 09/02/19 | | | (PROZAC) 10 mg | mouth Daily. | capsule | | 18 | 8 | | capsuleIndications: | | | | | | | Anxiety, Depression, | | | | | | | unspecified | | | | | | | depression type | | | | | | + + + +---------+ + + | furosemide (LASIX) | Take 1 tablet by | 30 | 2 | 09/02/19 | | | 40 mg | mouth Daily. | tablet | | 18 | 8 | | tabletIndications: | | | | | | | CKD (chronic kidney | | | | | | | disease), stage IV | | | | | | | (HCC) | | | | | | + + + +---------+ + + | NIFEdipine (ADALAT | Take 1 tablet by | 30 | 2 | 09/02/19 | | | CC) 60 MG 24 hr | mouth Daily. | tablet | | 18 | 8 | | tabletIndications: | | | | | | | Essential | | | | | | | hypertension, | | | | | | | malignant | | | | | | + + + +---------+ + + | oxyCODONE | Take 1 tablet by | 15 | 0 | 07/30/19 | | | (ROXICODONE) 5 mg | mouth every 6 hours | tablet | | 18 | 8 | | tablet | as needed for Pain. | | | | | + + + +---------+ + + | pantoprazole | Take 1 tablet by | 30 | 0 | 07/31/19 | | | (PROTONIX) 40 mg | mouth every morning | tablet | | 18 | 8 | | tablet | (before breakfast). | | | | | + + + +---------+ + + | potassium chloride | Take 1 tablet by | 30 | 2 | 09/02/19 | | | (K-DUR) 20 mEq ER | mouth Daily. | tablet | | 18 | 8 | | tabletIndications: | | | | | | | Hypokalemia | | | | | | + + + +---------+ + + documented as of this encounter Progress Notes Scottie Anderson RN - 09/01/2017 6:20 PM PDTPt transferred to [facility] at 1815 via [facility] transport. 20g IV placed to Right AC per mirtha Brewster nurse. Re port called to MUARICE Saez at [facility]. Questions asked and answered. Scottie Ayala RN - 09/01/2017 5:27 PM PDTPt arrived to room [address] Barreto's office at 1715. Per , pt to be transf erred to [facility] via ambulance transport in thirty minutes. documented in this encounter Plan of Treatment Not on filedocumented as of this encounter Visit Diagnoses Not on filedocumented in this encounter Administered Medications + +--------+---------+------+------+------+ | Medication Order | MAR | Action | Dose | Rate | Site | | | Action | Date | | | | + +--------+---------+------+------+------+ + +---+ | acetaminophen (TYLENOL) tablet | | | 650 mg 650 mg, Oral, EVERY 4 | | | HOURS PRN, Pain, or fever >= 38.6 | | | C (101.5 F), Starting Wed | | | 09/01/17 at 1802 | | + +---+ | | | + +---+ | LORazepam (ATIVAN) tablet 0.5 | | | mg 0.5 mg, Oral, EVERY 6 HOURS | | | PRN, Anxiety, Starting Wed | | | 09/01/17 at 1802 | | + +---+ | | | + +---+ | ondansetron (ZOFRAN) injection | | | 4 mg 4 mg, Intravenous, EVERY 6 | | | HOURS PRN, Nausea, Vomiting, | | | Starting 09/01/17 at 1802, | | | First line agent, | | + +---+ | | | + +---+ documented in this encounter"
--- OUTSIDE RECORDS SUMMARY | ~2019-05-10 | XMS | Encounter Summary ---
Demographics + + + | Address | [address] | | | [place] [address] | + + + | Home Phone | | + + + | Preferred Language | Unknown | + + + | Marital Status | | + + + | Judaism Affiliation | 1038 | + + + | Race | Unknown | + + + | Ethnic Group | Unknown | + + + Author + + + | Author | [facility] | | | and [place]aloana | + + + | Organization | [facility] | | | and [place] [...] [place] | | | | | [address] | | + + + + + Care Team Providers + +------+ + | Care Soil Sort Worker Name | Role | Phone | + +------+ + PCP | Unavailable | + +------+ + Encounter Details +--------+ + + + + | Date | Type | Department | Care Team | Description | +--------+ + + + + | 11/22/ | Hospital | [facility] | Physician, Er | | | 1996 | Encounter | [facility] | | | | | | EMERGENCY [address] | | | | | [address] [place] | | | | | | [address] | | | | | | [phone] | | | +--------+ + + + [...]
--- OUTSIDE RECORDS SUMMARY | ~2019-05-10 | XMS | Encounter Summary ---
Demographics + + + | Address | [address] | | | [place] [address] | + + + | Home Phone | | + + + | Preferred Language | Unknown | + + + | Marital Status | | + + + | Caodaism Affiliation | 1038 | + + + | Race | Unknown | + + + | Ethnic Group | Unknown | + + + Author + + + | Author | [facility] | | | and Laloana | + + + | Organization | [facility] | | | and [...] [place] | | | | | [address] | | + + + + + Care Team Providers + +------+ + | Care Child Care Coordinator Name | Role | Phone | + +------+ + PCP | Unavailable | + +------+ + Encounter Details +--------+ + + + + | Date | Type | Department | Care Team | Description | +--------+ + + + + | 07/08/ | Hospital | [facility] | Conversion | Pain | | 2019 | Encounter | CONVERSION [address] | Transaction, | | | | | [address] | Provider Unknown | | | | | [place], [place] | [phone] | | | | | [address] | | | | | | [phone] | | | +--------+ + + + [...] + + +---------+ + + | B Bebxwui-E-Atukt | Take 1 Tab by mouth. | [...] + + +---------+ + + | B Rzlzyck-J-Mymjl | Take 1 tablet by | 30 [...] | | | | | | | [facility] | | | | | | | [facility]]. | | | | | + + [...] | | | | | | | ([facility]) | | | | | | + [...]
--- OUTSIDE RECORDS SUMMARY | ~2019-05-10 | XMS | Encounter Summary ---
Demographics + + + | Address | [address] | | | [place] [address] | + + + | Home Phone [...] | Author | [facility] | | | and Laloana | + + + | Organization | [facility] | | | and [place] [...] [place] | | | | | [address] | | + + + + + Care Team Providers + +------+ + | Care Oiling Machine Operator Name | Role | Phone [...] + + + + | 08/23/ | Telephone | [facility] [place] | Jhoana Barreto | Lab Results | | 2017 | | NEPHROLOGY [address] | M, DO [address] | | | | | [address] | [address] | | | | | [place], [place] | [place] | | | | | [address] | [address] | | | | | [phone] | | | +--------+ + + + [...]
--- OUTSIDE RECORDS SUMMARY | ~2019-05-10 | XMS | Encounter Summary ---
Demographics + + + | Address | [address] | | | [place] [address] | + + + | Home Phone | | + + + | Preferred Language | Unknown | + + + | Marital Status | | + + + | Sikhism Affiliation | 1038 | + + + | Race | Unknown | + + + | Ethnic Group | Unknown | + + + Author + + + | Author | [facility] | | | and Llaoana | + + + | Organization | [facility] | | | and [...] [place] | | | | | [address] | | + + + + + Care Team Providers + +------+ + | Care Oil Well Cable Tool Operator Name | Role | Phone | + +------+ + PCP | Unavailable | + +------+ + Encounter Details +--------+ + + + + | Date | Type | Department | Care Team | Description | +--------+ + + + + | 11/09/ | Abstract | [facility] | Olayinka, | | | 2017 | | GASTROENTEROLOGY | MD [address] | | | | | [address] [facility] | [place] [address]. | | | | | [address] [place] | [place] [address] | | | | | [address] | | | | | | [phone] | | | +--------+ + + + [...]
--- OUTSIDE RECORDS SUMMARY | ~2019-05-10 | XMS | Encounter Summary ---
Demographics + + + | Address | [address] | | | [place] [address] | + + + | Home Phone [...] | [facility] | | | and Laloana | + + + | Organization | [facility] | | | and [place] [...] [place] | | | | | [address] | | + + + + + Care Team Providers + +------+ + | Care Professional Programmer Analyst Name | Role | Phone | + +------+ + PCP | Unavailable | + +------+ + Reason for Visit + + + | Reason | Comments | + + + | Follow-up | 4 week follow up.She is looking for new PCP Dr Peck is helping | | | her. | + + + | Other | She has been having vaginal spotting since 09/16 and cramping.She | | | is suppose to be scheduling and abd U/S by Dr Rosado. | + + + Encounter Details +--------+---------+ + + + | Date | Type | Department | Care Team | Description | +--------+---------+ + + + | 09/29/ | Office | [facility] | ZuleimaCarina FNP | Hematuria, | | 2018 | Visit | [facility] [place] | [address] | unspecified type | | | | [address] | [place] | (Primary Dx); | | | | [place] | [address] | Anxiety; Depression, | | | | [address] | | unspecified | | | | [phone] | | depression type; AUNG | | | | | | (acute kidney | | | | | | injury) ([facility]); | | | | | | Essential | | | | | | hypertension, | | | | | | malignant; TTP | | | | | | (thrombotic | | | | | | thrombocytopenic | | | | | | purpura) ([facility]); | | | | | | Congestive heart | | | | | | failure, unspecified | | | | | | HF chronicity, | | | | | | unspecified heart | | | | | | failure type ([facility]); | | | | | | Acute renal failure | | | | | | superimposed on | | | | | | chronic kidney | | | | | | disease, on chronic | | | | | | dialysis, | | | | | | unspecified acute | | | | | | renal failure type | | | | | | ([facility]) | +--------+---------+ + + + Social History [...] + + + | Blood Pressure | 106/70 | 09/29/2017 2:52 PM | | | | | PDT | | + + + + + | Pulse | 82 | 09/29/2017 2:52 PM | | | | | PDT | | + + + + + | Temperature | 37.3 C (99.1 F) | 09/29/2017 2:52 PM | | | | | PDT | | + + + + + | Respiratory Rate | 18 | 09/29/2017 2:52 PM | | | | | PDT | | + + + + + | Oxygen Saturation | 99% | 09/29/2017 2:52 PM | | | | | PDT | | + + + + + | Inhaled Oxygen | - | - | | | Concentration | | | | + + + + + | Weight | 52.2 kg (115 lb 1.3 | 09/29/2017 2:52 PM | | | | oz) | PDT | | + + + + + | Height | 167.6 cm (5' 5.98") | 09/29/2017 2:52 PM | | | | | PDT | | + + + + + | Body Mass Index | 18.58 | 09/29/2017 2:52 PM | | | | | PDT | | + + + + + documented in this encounter Progress Notes Carina Dewey FNP - 09/29/2017 3:00 PM PDT Subjective: Patient ID: Aurea Perez is a 37 y.o. female. HPI PMH: Anxiety, depression, kidney failure, history of methamphetamine use (quit 08/2017). Aurea presents today to follow-up after recent hospitalization at [facility], she was th ere are 09/01/17-09/16/17. Received and reviewed records. Started dialysis 3 days a week, ay Wednesday. Travels to [place] every Wednesday for infusion of Solaris ordered by Dr Abelardo Lew. Recently seen by Dr. Chaney, associate sales representative. Pap testing was done, was having va ginal spotting off and on since discharged from the hospital they told her this could likely be due to dialysis, also having some abdominal pain and SALES & SERVICE ASSOCIATE ordered abdominal ultrasound. With all of her current health risks SALES & SERVICE ASSOCIATE is pushing to have tubal ligation [facility]. Continues to see Dr. Barreto, due for next visit this next Wednesday. Still working on trying to find a new primary care provider as she is aware that I feel she would be yessi r off with an M.D. either in primary care or internal medicine. She has a very complex hist ory. She started urinating on her own the last couple days. Following diet and limited flu ids very closely and faithfully. Complaining her stomach hurts really bad seems worse after dialysis, she hurts all over. S he is wondering if her back hurts because she's been sitting so much in the car with traveli ng back and forth to [place] and in and out of dialysis 3 days a week. Denies any dysuria b ut we should get urinalysis to make sure we were not missing a urinary tract infection. [place]i [place] some hematuria, one episode. Living situation has improved. Living with 6 year old son and his father. [facility] and stay [facility]. [employer], had to reschedule due to hospitalization, now scheduled end of October. She will call to make sure of appointment dates and times. Anxiety/Depression has increased, she is only on fluoxetine 10 mg daily. Taking benadryl. Was given benzos in hospital but with her histor y want to avoid. Will get labs today which she was due for, she is fasting. Patient's medications, allergies, past medical, surgical, social and family histories were obtained and reviewed as appropriate. Current Outpatient Prescriptions: carvedilol (COREG) 25 mg tablet, Take 1 tablet by mouth 2 times daily (with breakfast & dinner)., Disp: 60 tablet, Rfl: 3 diphenhydrAMINE (BENADRYL) 25 mg tablet, Take 25 mg by mouth nightly as needed for Itc moises., Disp: , Rfl: FLUoxetine (PROZAC) 20 mg capsule, Take 1 capsule by mouth Daily., Disp: 90 capsule, R fl: 0 furosemide (LASIX) 40 mg tablet, Take 2 tablets by mouth Daily., Disp: 60 tablet, Rfl: 3 hydrALAZINE (APRESOLINE) 50 MG tablet, Take 1 tablet by mouth 2 times daily., Disp: 60 tablet, Rfl: 3 lisinopril (PRINIVIL, ZESTRIL) 20 mg tablet, Take 1 tablet by mouth Daily., Disp: 30 t ablet, Rfl: 3 NIFEdipine (ADALAT CC) 90 MG 24 hr tablet, Take 1 tablet by mouth 2 times daily., Disp : 60 tablet, Rfl: 3 pantoprazole (PROTONIX) 40 mg tablet, Take 1 tablet by mouth every morning (before adilene akfast)., Disp: 30 tablet, Rfl: 0 Allergies Allergen Reactions Codeine Anaphylaxis Sumatriptan Anaphylaxis Intolerance No active intolerances/contraindications Review of Systems Constitutional: Positive for chills and diaphoresis. Negative for fever. HENT: Positive for hearing loss. Negative for tinnitus. Eyes: Negative for blurred vision and double vision. Visual changes. Respiratory: Negative for cough, shortness of breath and wheezing. Cardiovascular: Negative for chest pain, palpitations and leg swelling. Gastrointestinal: Positive for abdominal pain (constant with current treatment). Negative f or blood in stool, constipation, diarrhea, melena, nausea and vomiting. Genitourinary: Positive for hematuria (1 episode today). Negative for dysuria and frequency . Skin: Positive for itching. Negative for rash. Neurological: Negative for dizziness, tingling, focal weakness and headaches. Psychiatric/Behavioral: Negative for depression and suicidal ideas. The patient is nervous/ anxious. Objective: BP 106/70 | Pulse 82 | Temp 37.3 C (99.1 F) (Temporal) | Resp 18 | Ht 1.676 m (5' 5 .98") | Wt 52.2 kg (115 lb 1.3 oz) | SpO2 99% | BMI 18.58 kg/m Physical Exam Constitutional: She is well-developed, well-nourished, and in no distress. Vital signs are normal. HENT: Head: Normocephalic and atraumatic. Right Ear: Hearing normal. Left Ear: Hearing normal. Nose: Nose normal. Eyes: Pupils are equal, round, and reactive to light. Neck: Normal range of motion. Cardiovascular: Normal rate, regular rhythm, S1 normal, S2 normal and normal heart sounds. No murmur heard. Pulses: Posterior tibial pulses are 2+ on the right side, and 2+ on the left side. No pedal edema Pulmonary/Chest: Effort normal. No respiratory distress. She has no decreased breath sounds . She has no wheezes. She has no rhonchi. She has no rales. Abdominal: Soft. Bowel sounds are normal. She exhibits no distension and no mass. There is tenderness in the right lower quadrant. There is no rebound, no guarding and no CVA tenderne ss. Musculoskeletal: Normal range of motion. Pain across low back with palpation. Neurological: She is alert. She has normal motor skills. Gait normal. Skin: Skin is warm, dry and intact. Psychiatric: Mood and affect normal. Assessment/Plan: 1. Hematuria, unspecified type Check urinalysis, unable to void during visit today, printed and gave to her to get done in [place]. Will notify of results once available - Urinalysis with Microscopic with Culture if Indicated; Future 2. Anxiety Increase fluoxetine to 20 mg a day return to clinic in 4 weeks, sooner if needed. - FLUoxetine (PROZAC) 20 mg capsule; Take 1 capsule by mouth Daily. Dispense: 90 capsule; Refill: 0 3. Depression, unspecified depression type See #2 - FLUoxetine (PROZAC) 20 mg capsule; Take 1 capsule by mouth Daily. Dispense: 90 capsule; Refill: 0 4. AUNG (acute kidney injury) ([facility]) Keep up with plant attendant 5. Essential hypertension, malignant 6. TTP (thrombotic thrombocytopenic purpura) ([facility]) 7. Congestive heart failure, unspecified HF chronicity, unspecified heart failure type ([facility] ) 8. Acute renal failure superimposed on chronic kidney disease, on chronic dialysis, unspeci fied acute renal failure type ([facility]) Keep up with plant attendant Will notify by phone of lab results. See her back in 4 weeks, sooner if needed. She still really needs to find a new PCP that have the expertise to help her. Return in about 4 weeks (around 10/27/2017). Patient understands, accepts, and agrees with this plan. Portions of this report were transcribed using [employer] voice recognition soft [email or web address]. Although effort was made in correcting the errors; grammatical and sound alike errors may still be present. do cumented in this encounter Plan of Treatment + +------+--------+ + + | Name | Type | Priori | Associated Diagnoses | Order Schedule | | | | ty | | | + +------+--------+ + + | Urinalysis with | Lab | Routin | Hematuria, | Expected: | | Microscopic with | | e | unspecified type | 09/29/2017, Expires: | | Culture if Indicated | | | | 09/29/2018 | + +------+--------+ + + documented as of this encounter Visit Diagnoses + + | Diagnosis | + + | Hematuria, unspecified type - Primary | + + | Anxiety Anxiety state, unspecified | + + | Depression, unspecified depression type | + + | AUNG (acute kidney injury) (HCC) Acute kidney failure, unspecified | + + | Essential hypertension, malignant | + + | 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
--- OUTSIDE RECORDS SUMMARY | ~2019-05-10 | XMS | Encounter Summary ---
Demographics + + + | Address | [address] | | | [place] [address] | + + + | Home Phone [...] | Author | [facility] | | | and Laloana | + + + | Organization | [facility] | | | and [...] [place] | | | | | [address] | | + + + + + Care Team Providers + +------+ + | Care Charging Plug Placer Name | Role | Phone | + [...] | | [address] | [place] | | | | | [place], [place] | [place], [place] | | | | | [address] | [address] | | | | | [phone] | | | +--------+ + + + [...]
--- OUTSIDE RECORDS SUMMARY | ~2019-05-10 | XMS | Encounter Summary ---
Demographics + + + | Address | [address] | | | [place] [address] | + + + | Home Phone [...] | [facility] | | | and [place] | + + + | Organization | [facility] | | | and [place] | [...] + | Beverly Perez | ECON | [place] | | | | | [address] | | + + + + + Care Team Providers + +------+ + | Care Bioprocess Development Engineer Name | Role | Phone | [...] | | | | disease) on | Dike Rich | Dike, Rich | | | | | dialysis | [address] [place] [address] [place] | | | | | (HCC) | [place] | [place] | | | | | Procedures | [address] | [address] Phone: | | | | | [place] ESRD | Phone: | [phone] | | | | | RELATED SVC | [phone] | Fax: | | | | | MONTHLY | Fax: | [phone] | | | | | 20&/> YR OLD | [phone] | | | | | | 4/> VISITS | | | + +--------+ + + + + Encounter Details +--------+ + + + + | Date | Type | Department | Care Team | Description | +--------+ + + + + | 12/01/ | Off-Site | [facility] [place] | Jhoana Barreto | ESRD on dialysis | | 2019 | Visit | NEPHROLOGY [address] | M, DO [address] | ([facility]) (Primary Dx) | | | | [address] | [address] | | | | | [place], [place] | [place], [place] | | | | | [address] | [address] | | | | | [phone] | | | +--------+ + + + [...] encounter Progress Notes Jhoana Barreto DO - 12/01/2018 9:45 AM PDT[No show]. documented in thi s encounter Plan of [...]
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
--- OUTSIDE RECORDS SUMMARY | ~2019-05-10 | XMS | Encounter Summary ---
Demographics + + + | Address | [address] | | | [place] [address] | + + + | Home Phone [...] + | Author | [facility] | | | and [place] | + + + | Organization | [facility] | | | and Laloana [...] + | Beverly Perez | ECON | [place] | | | | | [address] | | + + + + + Care Team Providers + +------+ + | Care Copyist Name | Role | Phone | + [...] | | | | | | | RI AV | | | | | | | ANAST,UP ARM | | | | | | | BASILIC | | | | | | | VEIN | | | | | | | TRANSPOSIT | | | | | | | RI | | | | | | | [...] + + | 01/04/ | Hospital | [facility] | Xavier | Acute renal failure | | 2018 | Encounter | MED CTR OR INTRA OP | MD Lino, FACS [address] | with acute tubular | | | | [address] | [address] [place] | necrosis | | | | [place], [place] | [place] [address] | superimposed on | | | | [address] | [phone] | chronic kidney | | | | [phone] | | disease, on chronic | | [...] Instructions Xavier Gallagher MD, GABBI - 01/04/2018[facility] POST-OP INSTRUCTIONS: Arterio-Venous Fistula 1. Keep [...] + + +---------+ + + | B Wxewnar-M-Qtvji | Take 1 Tab by mouth. 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]. | | | | | [...] | | | | | | | ([facility]) | | | | | | + [...] [address] | [place] | [phone] | | [facility] | | [address] | | | - LABORATORY | | [...] [address] | [place] | [phone] | | [facility] | | [address] | | | - LABORATORY | | [...] [address] | [place] | [phone] | | [facility] | | [address] | | | - LABORATORY | | [...] | Neutrophils | | K/uL | [facility] | | | | | | MEDICAL [...] [address] | [place] | [phone] | | [facility] | | [address] | | | - LABORATORY | | [...] (H) | 7 - 18 mg/dL | [facility] | | | | | | [facility] | | | | | | MEDICAL | | | | | | CENTER - | | | | | | LABORATORY | | + + + + + + | Creatinine | 6.41 (H) | 0.60 - 1.30 | [facility] | | | | | mg/dL | [facility] | | | | | | MEDICAL | | | | | | CENTER - | | | | | | LABORATORY | | + + + + + + | eGFR if not | 7 (L)Comment: GLOMERULAR | >=60 | [facility] | | | | FILTRATION | mL/min/1.73m2 | [facility] | | | JORDANIAN | RATE,ESTIMATED | | MEDICAL | | | | mL/min/1.47o0Xqns than | | CENTER - | | [...] [address] | [place] | [phone] | | [facility] | | [address] | | | - LABORATORY | | [...]
--- OUTSIDE RECORDS SUMMARY | ~2019-05-10 | XMS | Encounter Summary ---
Demographics + + + | Address | [address] | | | [place] [address] | + + + | Home Phone | | + + + | Preferred Language | Unknown | + + + | Marital Status | | + + + | Advent Affiliation | 1038 | + + + | Race | Unknown | + + + | Ethnic Group | Unknown | + + + Author + + + | Author | [facility] | | | and [place] | + + + | Organization | [facility] | | | and [place] [...] [place] | | | | | [address] | | + + + + + Care Team Providers + +------+ + | Care Retail Tire Sales Manager Name | Role | Phone | [...] | +--------+ + + + + | 04/05/ | Telephone | [facility] [place] | Angel Barretoias | Dialysis | | 2017 | | NEPHROLOGY [address] | M, DO [address] | (Asymptomatic) | | | | [address] | [place] | | | | | [place], [place] | [place], [place] | | | | | [address] | [address] | | | | | [phone] | | | +--------+ + + + [...]
--- OUTSIDE RECORDS SUMMARY | ~2019-05-10 | XMS | Encounter Summary ---
Demographics + + + | Address | [address] | | | [place] [address] | + + + | Home Phone | | + + + | Preferred Language | Unknown | + + + | Marital Status | | + + + | Buddhist Affiliation | 1038 | + + + | Race | Unknown | + + + | Ethnic Group | Unknown | + + + Author + + + | Author | [facility] | | | and [place] | + + + | Organization | [facility] | | | and [...] [place] | | | | | [address] | | + + + + + Care Team Providers + +------+ + | Care Lead Loader Name | Role | Phone | + +------+ + PCP | Unavailable | + +------+ + Encounter Details +--------+ + + + + | Date | Type | Department | Care Team | Description | +--------+ + + + + | 03/22/ | Hospital | [facility] | Gee Sandoval MD | Agitation; | | 2018 - | Encounter | [facility] | [address] | Methamphetamine | | | | CARE FLOOR [address] | [place], [place] | abuse (HCC); Acute | | 03/29/ | | [address] | [address] | respiratory failure | | 2018 | | [place], [place] | | with hypoxia and | | | | [address] | | hypercapnia (HCC) | | | | [phone] | | | +--------+ + + + [...] 03/30/182051 Date of Service: 03/29/181539 Status: Signed Flake Miller Helper: Kofi Champion MD (Physician) Related Notes: Original Note by Kofi Champion MD (Physician) filed at 03/29/18 16 40 Merged With [facility] Service: Hospitalist Physician Discharge Summary Pt: Aurea [...] Mar 24 2018 5:37AM Referring Provider Line: [phone] ID: [id number] Xr Chest 1 View Result [...] karoline t to the emergency department of [facility]. The patient was found to be in fla sh pulmonary edema causing respiratory failure and was intubated. HOSPITAL COURSE: The patient was initially managed at [facility], but after intubation she was transferred to [...] emodialysis chair at the kidney center in [place], where she used to get dialysis in the p ast. I spoke with my case management assistant, who was working on chair time for [...] hours. No results for input(s): PHART, PO2ART, PUA6VVA, H8YPKOKP, BEART in the last 168 hours. No [...] + + +---------+ + + | B Ibotelh-Y-Dldzb | Take 1 Tab by mouth. 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 | | | | | [...] Date of Service: 03/29/18 1558 Status: Signed Flake Miller Helper: Hector Matos RN (Registered Nurse) Pt signed the AMA paper. IV removed. Belonging bags (2) have been returned by security. Pt is aware that she is leaving against medical advice and not being [facility] hospitalist. onver chaz Transaction, Provider Unknown - 03/29/2018 3:15 PM PDT Nurse Progress Note by Hector Matos RN at 03/29/18 1515 Author: Hector Matos RN Service: (none) Author Type: Registered Nurse Filed: 03/29/18 1620 Date of Service: 03/29/18 1515 Status: Addendum Flake Miller Helper: Hector Matos RN (Registered Nurse) Related Notes: Original Note by Hector Matos RN (Registered Nurse) filed at 03/29/18 8018 Pt is still adamant that she wants [...] Date of Service: 03/29/18 1353 Status: Signed Flake Miller Helper: MARLEEN Lopes (Occupational Therapist) 03/29/18 1358 OT Last Visit OT Received On 03/29/18 Reason for Treatment Deconditioning Requires OT Follow Up Unavailable OT Eval/Reassessment Date 03/29/18 Assistance Required 1 person Injury/Safety Hazard Assessment Needed No Family/Caregiver Present No Precautions Other [...] Date of Service: 03/29/18 1326 Status: Addendum Flake Miller Helper: Patricia Ramesh RN (Registered Nurse) Related Notes: [...] Date of Service: 03/29/18 1243 Status: Signed Flake Miller Helper: Hector Matos RN (Registered Nurse) Pt wants [...] Date of Service: 03/29/18 1132 Status: Signed Flake Miller Helper: Edgardo Hernandez PT (Physical Therapist) PHYSICAL THERAPY [...] limited by?: Patient's ability Stair Management Technique: Xjom-rrma-bjby, Rail on left ascending BALANCE Balance: Yes [...] at high risk for falls iryani, Kofi alfaro MD - 03/29/2018 11:26 AM PDT Progress Notes by Kofi Champion MD at 03/29/18 1126 Author: Kofi Champion MD Service: Hospitalist Author Type: Physician Filed: 03/29/18 1133 Date of Service: 03/29/181125 Status: Signed Flake Miller Helper: Kofi Champion MD (Physician) M[facility] Service: Hospitalist Progress Note Hospital Day: LOS: [...] Mar 24 2018 5:37AM Referring Provider Line: [phone] ID: [id number] Xr Chest 1 View Result [...] Acute respiratory failure with hypoxia and hypercapnia ([facility]) Active Problems: Methamphetamine use Metabolic acidosis Agitation Pulmonary edema ESRD (end stage renal disease) ([facility]) ASSESSMENT & PLAN Acute respiratory failure due to flash pulmonary edema due to 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 SP r equired intubation [...] (none) Author Type: Registered Nurse Filed: 03/29/18 9505 Date of Service: 03/29/18458 Status: Signed Flake Miller Helper: Maria E Kaplan RN (Registered Nurse) Chart check complete. Assessment unchanged. onver chaz Transaction, Provider Unknown - 03/28/2018 11:43 PM PDT Nurse Progress Note by Maria E Kaplan RN at 03/28/182342 Author: Maria E Kaplan RN Service: (none) Author Type: Registered Nurse Filed: 03/28/182342 Date of Service: 03/28/182342 Status: Signed Flake Miller Helper: Maria E Kaplan RN (Registered Nurse) Received report from MAURICE Hammond and agree with evening assessment. No acute changes. onver chaz Transaction, Provider Unknown - 03/28/2018 10:33 PM PDT Nurse Progress Note by Stephany Polanco RN at 03/28/182232 Author: Stephany Polanco RN Service: (none) Author Type: Registered Nurse Filed: 03/28/182233 Date of Service: 03/28/182232 Status: Signed Flake Miller Helper: Stephany Polanco RN (Registered Nurse) End of shift audit: Signed and held orders: reviewed and released Medications parameters: completed as ordered Protocols: Completed Restraints: N/A Blood: N/A Audit completed. Stephany Polanco RN. 03/28/18 10:34 PM onver chaz Transaction, Provider Unknown - 03/28/2018 4:34 PM PDT Progress Notes by Terrell Nuno RD at 03/28/184 Author: Terrell Nuno RD Service: (none) Author Type: Registered Dietitian Filed: 03/28/18 5221 Date of Service: 03/28/184 Status: Attested Flake Miller Helper: Terrell Nuno RD (Registered Dietitian) Cosigner: Antonina Darnell RD at 0744 Attestation signed by Antonina Darnell RD at 03/29/[address] 03/28/18 1510 Subjective Timepoint Follow up Pt c/o High [...] Nutritional risk High Follow up date 03/31/[address] onver chaz Transaction, Provider Unknown - 03/28/2018 4:23 PM PDT Nurse Progress Note by Stephany Polanco RN at 03/28/18 6366 Author: Stephany Polanco RN Service: (none) Author Type: Registered Nurse Filed: 03/28/18 0580 Date of Service: 03/28/181622 Status: Signed Flake Miller Helper: Stephany Polanco RN (Registered Nurse) Patient fistula [...] 1608 Date of Service: 03/28/181607 Status: Signed Flake Miller Helper: Stephany Polanco RN (Registered Nurse) Pt arrived [...] Date of Service: 03/28/18 151 Status: Signed Flake Miller Helper: Favio Noyola MD (Physician) Merged [facility] Service: Hospitalist Progress Note Pt: Aurea Perez [...] several months" according to the documentation at [facility]. The ED physician felt that it was more probable that she had used methamphetam ine recently and that was what resulted in her acute pulmonary edema. Lab findings at [facility] were significant for serum CO211, WBC 16.3, BUN 65, creatin ine 5.26, lactic acid 7.8, and K of 3.3. ABG showed a pH of 7.08, pCO2 49.4, pO2 95, HCO3 14.4. A CXR showed pulmonary edema. After consulting with Dr. Sandoval, the recommended 3 amps of sodium bicarbonate were given, and the patient was then transferred to [facility] for further management. ICU Timeline: 03/22: Pt presented to [facility] ED in severe respiratory distress. Intubated; tra nsferred to [facility] ICU. 03/23: Remained on MV, sedated [...] hours. No results for input(s): PHART, PO2ART, QFV3FSB, B3HXKTDH, BEART in the last 168 hours. No results for input(s): APTT, INR, PTT in the last 168 hours. No results for input(s): TSH, T3FREE, FREET4 in the last 168 hours. Recent Labs Lab 03/24/18 1313 03/24/18 0459 TROPONINI 0.22* 0.328* i PROBLEM LIST Principal Problem: Acute respiratory failure with hypoxia and hypercapnia ([facility]) Active Problems: Methamphetamine use Metabolic acidosis Agitation Pulmonary edema ESRD (end stage renal disease) ([facility]) ASSESSMENT & PLAN 1. Flash pulmonary edema causing Acute respiratory failure with hypoxia and hypercapnia. Intubated at [facility] initially, and reintubated here s/p extubation,improving, [...] intoxication with meth upon initial presentation to [facility]. 3. Hypertension. increased Coreg, restarted nifedipine, may [...] 1414 Date of Service: 03/28/181412 Status: Signed Flake Miller Helper: Mary Aleman OTR/L (Occupational Therapist) 03/28/18 1412 OT Last Visit OT Received On 03/28/18 Requires OT Follow Up Unavailable Other Comments Comments spoke with RN pt just finished with HD and is very fatiuged, also planned for Fist ulagram this afternoon, recommended to re-attempt on 03/29. onver chaz Transaction, Provider Unknown - 03/28/2018 1:36 PM PDT Case Management by Patricia Ramesh RN at 03/28/186 Author: Patricia Ramesh RN Service: (none) Author Type: Registered Nurse Filed: 03/28/187 Date of Service: 03/28/186 Status: Signed Flake Miller Helper: Patricia Ramesh RN (Registered Nurse) 1100: spoke [...] Date of Service: 03/28/18 1247 Status: Signed Flake Miller Helper: Jessica Barron PT (Physical Therapist) 03/28/18 1247 [...] 03/28/181151 Date of Service: 03/28/181150 Status: Signed Flake Miller Helper: Stephany Polanco RN (Registered Nurse) Received report from MAURICE Francisco. Agree with shift assessment. Will resume care of patient. Stephany Polanco RN. 03/28/18 11:52 AM onver chaz Transaction, Provider Unknown - 03/28/2018 4:36 AM PDT Nurse Progress Note by Corrie Avalos RN at 03/28/18435 Author: Corrie Avalos RN Service: (none) Author Type: Registered Nurse Filed: 03/28/188 Date of Service: 03/28/18435 Status: Signed Flake Miller Helper: Corrie Avalos RN (Registered Nurse) BP's elevated [...] Corrie Avalos RN at 03/28/18229 Author: Corrie Avalos RN Service: (none) Author Type: Registered Nurse Filed: 03/28/18231 Date of Service: 03/28/18229 Status: Signed Flake Miller Helper: Corrie Avalos RN (Registered Nurse) Patient medication [...] 03/27/181811 Date of Service: 03/27/181809 Status: Signed Flake Miller Helper: Katie Short RN (Registered Nurse) Patient complaining of shortness of breath, her spO2 Was 92-94% on room air. She was plac ed on 2L of oxygen via NC. End of Shift Review done. Katie Short RN 03/27/2018 6:12 PM riTretnon pandey MD - 03/27/2018 12:26 PM PDTFormatting of this note might be different from th e original. Progress Notes by Trenton Faria MD at 03/27/18 1226 Author: Trenton Faria MD Service: Nephrology Author Type: Physician Filed: 03/27/181649 Date of Service: 03/27/186 Status: Signed Flake Miller Helper: Trenton Faria MD (Physician) Merged [facility] Service: NEPHROLOGY Progress Note Aurea Perez 37 y.o. 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 B Tzhcohk-T-Fcggy Acid (RENAL-KIT) 0.8 MG TABS Take 1 [...] 25 mg by mouth nightly as needed. cibxxkzknhbksvg-ytmrnfkwakcrmm-lpiipluf (DUKES MOUTHWASH) suspension Swish and spit 10 mLs every 6 (six) hours as needed for Sore Throat. 240 mL 0 epoetin ant (PROCRIT) 51775 UNIT/ML injection Inject 8,000 Units into the [...] Mar 24 2018 5:37AM Referring Provider Line: [phone] ID: [id number] Xr Chest 1 View Result [...] radiologist report and is used for image [employer] only Patient's old records, imaging and labs [...] earlier and charting completed later Dictation software, KnowRe, used which may contain error for similar sounding words even af ter review. Personal communication requested for any clarification. Favio Dumont MD - 03/27/2018 8:47 AM PDT Progress Notes by Favio Noyola MD at 03/27/18 0802 Author: Favio Noyola MD Service: Hospitalist Author Type: Physician Filed: 03/27/18 1429 Date of Service: 03/27/18 0827 Status: Addendum Flake Miller Helper: Favio Noyola MD (Physician) Related Notes: Original Note by Favio Noyola MD (Physician) filed at 03/27/18 1424 Merged With [facility] Service: Hospitalist Progress Note Pt: Aurea Perez AGE/SEX: 37 y.o. female ROOM: 7127/7127-1 : 1980 PCP: Sia Zheng ADMIT DATE: 03/22/2018 TODAY'S DATE: 03/27/2018 [...] several months" according to the documentation at [facility]. The ED physician felt that it was more probable that she had used methamphetam ine recently and that was what resulted in her acute pulmonary edema. Lab findings at [facility] were significant for serum CO211, WBC 16.3, BUN 65, creatin ine 5.26, lactic acid 7.8, and K of 3.3. ABG showed a pH of 7.08, pCO2 49.4, pO2 95, HCO3 14.4. A CXR showed pulmonary edema. After consulting with Dr. Sandoval, the recommended 3 amps of sodium bicarbonate were given, and the patient was then transferred to [facility] for further management. ICU Timeline: 03/22: Pt presented to [facility] ED in severe respiratory distress. Intubated; tra nsferred to [facility] ICU. 03/23: Remained on MV, sedated [...] hours. No results for input(s): PHART, PO2ART, MUW7NNY, E1CFGNFH, BEART in the last 168 hours. No [...] failure with hypoxia and hypercapnia. Intubated at [facility] initially, and reintubated here s/p extubation,improving, [...] intoxication with meth upon initial presentation to [facility]. 3. Hx hypertension. Previously on Coreg, [...] Note by Allyson Vidales RN at 03/27/18 9505 Author: Allyson Vidales RN Service: (none) Author Type: Registered Nurse Filed: 03/27/18 0357 Date of Service: 03/27/18344 Status: Signed Flake Miller Helper: Allyson Vidales RN (Registered Nurse) Pt to 7 room 71. Report given to MAURICE Houston, who will assume care of pt at this time. Allyson Vidales RN onver chaz Transaction, Provider Unknown - 03/26/2018 12:52 PM PDT Nurse Progress Note by Kristi Fang RN at 03/26/18 5401 Author: Kristi Fang RN Service: (none) Author Type: Registered Nurse Filed: 03/26/18 3634 Date of Service: 03/26/18 125 Status: Signed Flake Miller Helper: Kristi Fang RN (Registered Nurse) Safety plan [...] 0125 Date of Service: 03/26/181056 Status: Signed Flake Miller Helper: Trenton Faria MD (Physician) Merged With [facility] Service: NEPHROLOGY Progress Note Aurea Perez 37 y.o. 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 B Ammcrqi-S-Ervid Acid (RENAL-KIT) 0.8 MG TABS Take 1 [...] 25 mg by mouth nightly as needed. praduzrsjukcmyh-ywwfryqptydfpt-egpapbbf (DUKES MOUTHWASH) suspension Swish and spit 10 mLs every 6 (six) hours as needed for Sore Throat. 240 mL 0 epoetin ant (PROCRIT) 29663 UNIT/ML injection Inject 8,000 Units into the [...] labetalol, nystatin, ondansetron OR ondanset pepe, pancrelipase (Cqm-Lrla-Aamg)12,000 units, petrolatum, sodium bicarbonate Allergy: Allergies Allergen [...] Mar 24 2018 5:37AM Referring Provider Line: [phone] ID: [id number] Xr Chest 1 View Result [...] radiologist report and is used for image [employer] only Patient's old records, imaging and labs [...] DETAIL, VERBALIZ ES UNDERSTANDING TRENTON FARIA MD 03/26/2018 Sia Zheng Seen earlier and charting completed later Dictation software, KnowRe, used which may contain error for similar sounding words even af ter review. Personal communication requested for any clarification. onversion Transa ction, Provider Unknown - 03/26/2018 8:57 AM PDT Therapy Progress Note by Lazara Ventura PT at 03/26/18 0857 Author: Lazara T Lorenzo, PT Service: (none) Author Type: Physical Therapist Filed: 03/26/1802 Date of Service: 03/26/18856 Status: Signed Flake Miller Helper: Lazara Ventura PT (Physical Therapist) 03/26/1857 PT Last Visit PT Received On 03/26/18 Requires PT Follow Up On hold Other Comments Comments Chart reviewed with pt continued intubated/sedated and RN consulted requesting mob ility hold 2/2 ongoing agitation. Elda Nash NP - 03/26/2018 4:50 AM PDT Progress Notes by BLAYNE Blue at 03/26/18449 Author: BLAYNE Blue Service: Supervisor Shipping Room Author Type: Advanced Registered Nurse Practitioner Filed: 03/26/18 0734 Date of Service: 03/26/18449 Status: Addendum Flake Miller Helper: BLAYNE Blue (Advanced Registered Nurse Practitioner) Related Notes: Original Note by BLAYNE Blue (Advanced Registered Nurse Prac titioner) filed at 03/26/18 0541 Merged With [facility] Supervisor Shipping Room Service Progress Note Aurea Perez 37 y.o. [...] several months" according to the documentation at [facility]. The ED physician felt that it was more probable that she had used methamphetamine recently and that was what resulted in her acute pulmonary edema. Lab findings at [facility] were significant for serum CO211, WBC 16.3, BUN 65, creatin ine 5.26, lactic acid 7.8, and K of 3.3. ABG showed a pH of 7.08, pCO2 49.4, pO2 95, HCO3 14.4. A CXR showed pulmonary edema. After consulting with Dr. Sandoval, the recommended 3 amps of sodium bicarbonate were given, and the patient was then transferred to [facility] for further management. ICU Timeline: 03/22: Pt presented to [facility] ED in severe respiratory distress. Intubated; cristobal sferred to [facility] ICU. 03/23: Remained on MV, sedated [...] 0336) midazolam in NS 10 mg/hr (03/25/18 3731) propofol Stopped (03/24/18 1256) OBJECTIVE VITAL SIGNS Temp: [97.8 F (36.6 C)-99.8 F (37.7 C)] 98.7 F (37.1 C) Heart Rate: [80-103] 83 Resp: [13-38] 14 BP: (142-224)/(70-105) 158/84 FiO2 : [21 %-25 %] 25 % Intake/Output Summary (Last 24 hours) at 03/26/18 0366 Last data filed at 03/25/181999 Gross per [...] Mar 24 2018 5:37AM Referring Provider Line: [phone] ID: [id number] Xr Chest 1 View Result [...] intoxication with meth upon initial presentation to [facility]. CAM-ICU screening every shift. CV: Flash pulmonary edema. Resolved. Hx hypertension. Previously on Coreg, nifedipine, lisinopril, and Lasix, but it is unk nown if patient is compliant with her home medications. Hydralazine and labetalol PRN SBP > 160. PULM: Acute respiratory failure with hypoxia and hypercapnia. [facility], and reintubated after self-extubation on [...] (none) Author Type: Physical Therapist Filed: 03/25/18 3333 Date of Service: 03/25/18 140 Status: Signed Flake Miller Helper: Emanuel Stringer PT (Physical Therapist) 03/25/18 1402 PT Last Visit PT Received On 03/25/18 (see NSG progress note) Requires PT Follow Up On hold onver chaz Transaction, Provider Unknown - 03/25/2018 1:09 PM PDT Nurse Progress Note by Katie Funes RN at 03/25/18 3026 Author: Katie Funes RN Service: (none) Author Type: Registered Nurse Filed: 03/25/18 0530 Date of Service: 03/25/18 4249 Status: Signed Flake Miller Helper: Katie Funes RN (Registered Nurse) Pts sister [...] Notes by Trenton Faria MD at 03/25/18 8906 Author: Trenton Faria MD Service: Nephrology Author Type: Physician Filed: 03/25/18 8600 Date of Service: 03/25/18 6181 Status: Signed Flake Miller Helper: Trenton Faria MD (Physician) Merged With [facility] Service: NEPHROLOGY Dialysis Note Aurea Perez 37 y.o. 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 B Rdojiae-W-Dzcuo Acid (RENAL-KIT) 0.8 MG TABS Take 1 [...] 25 mg by mouth nightly as needed. xqoxbtbqetiekvk-bvworudnpixnmf-smzagask (DUKES MOUTHWASH) suspension Swish and spit 10 mLs every 6 (six) hours as needed for Sore Throat. 240 mL 0 epoetin ant (PROCRIT) 51308 UNIT/ML injection Inject 8,000 Units into the [...] labetalol, midazolam, nystatin, ondansetron OR ondansetron, pancrelipase (Xva-Wwck-Vmev)12,000 units, petrolatum, sodium bicarbonate Allergy: Allergies Allergen [...] Mar 24 2018 5:37AM Referring Provider Line: [phone] ID: [id number] Xr Chest 1 View Result [...] radiologist report and is used for image [employer] only Patient's old records, imaging and labs [...] earlier and charting completed later Dictation software, KnowRe, used which may contain error for similar sounding words even af ter review. Personal communication requested for any clarification. onversion Transa ction, Provider Unknown - 03/25/2018 10:05 AM PDT Case Management by DAHIANA Cerrato at 03/25/18 1005 Author: DAHIANA Cerrato Service: (none) Author Type: Supervisor Shuttle Fitting Filed: 03/25/18 1007 Date of Service: 03/25/18 1005 Status: Signed Flake Miller Helper: DAHIANA Cerrato (Supervisor Shuttle Fitting) Attended morning rounds. Remains vented. Referral emailed to Yenny Doran, Behavioral a [facility] Specialist to discuss drug use and resources. onver chaz Transaction, Provider Unknown - 03/25/2018 5:23 AM PDT Nurse Progress Note by Dianelys Garcia RN at 03/25/18522 Author: Dianelys Garcia RN Service: (none) Author Type: Registered Nurse Filed: 03/25/1835 Date of Service: 03/25/18522 Status: Addendum Flake Miller Helper: Dianelys Garcia RN (Registered Nurse) Related Notes: Original Note by Dianelys Garcia RN (Registered Nurse) filed at [phone] Discussion in rounds with Dr. Benítez and BLAYNE Owens, regarding plan for extubation w hen appropriate. Plan to have security and additional staff present at bedside due to patien ts previous violent behaviors. Dianelys Garcia RN IEllis, Elda Gunderson NP - 03/25/2018 4:45 AM PDT Progress Notes by BLAYNE Blue at 03/25/18444 Author: BLAYNE Blue Service: Supervisor Shipping Room Author Type: Advanced Registered Nurse Practitioner Filed: 03/25/18619 Date of Service: 03/25/18444 Status: Signed Flake Miller Helper: BLAYNE Blue (Advanced Registered Nurse Practitioner) Merged With [facility] Supervisor Shipping Room Service Progress Note Aurea Perez 37 y.o. [...] several months" according to the documentation at [facility]. The ED physician felt that it was more probable that she had used methamphetamine recently and that was what resulted in her acute pulmonary edema. Lab findings at [facility] were significant for serum CO211, WBC 16.3, BUN 65, creatin ine 5.26, lactic acid 7.8, and K of 3.3. ABG showed a pH of 7.08, pCO2 49.4, pO2 95, HCO3 14.4. A CXR showed pulmonary edema. After consulting with Dr. Sandoval, the recommended 3 amps of sodium bicarbonate were given, and the patient was then transferred to [facility] for further management. ICU Timeline: 03/22: Pt presented to [facility] ED in severe respiratory distress. Intubated; cristobal sferred to [facility] ICU. 03/23: Remained on MV, sedated [...] Mar 24 2018 5:37AM Referring Provider Line: [phone] ID: [id number] Xr Chest 1 View Result [...] intoxication with meth upon initial presentation to [facility]. CAM-ICU screening every shift. CV: Flash pulmonary edema. Resolved. Hx hypertension. Previously on Coreg, nifedipine, lisinopril, and Lasix, but it is unk nown if patient is compliant with her home medications. Hydralazine and labetalol PRN SBP > 160. PULM: Acute respiratory failure with hypoxia and hypercapnia. [facility], and reintubated after self-extubation on [...] Date of Service: 03/24/18 102 Status: Signed Flake Miller Helper: Trenton Faria MD (Physician) Merged With [facility] Service: NEPHROLOGY Progress Note Aurea Perez 37 y.o. 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 [...] 6 (six) hours as n eeded. B Xahvlfk-R-Hkxox Acid (RENAL-KIT) 0.8 MG TABS Take 1 [...] 25 mg by mouth nightly as needed. patloadvzsqwxlz-mowvlbddsairvl-tfwaoflk (DUKES MOUTHWASH) suspension Swish and spit 10 mLs every 6 (six) hours as needed for Sore Throat. 240 mL 0 epoetin ant (PROCRIT) 39479 UNIT/ML injection Inject 8,000 Units into the [...] labetalol, midazolam, nystatin, ondansetron OR ondansetron, pancrelipase (Jlw-Fiqq-Poxe)12,000 units, petrolatum, sodium bicarbonate Allergy: Allergies Allergen [...] QTC Calculation (Bezet) 633 ms Calculated P [place] 49 degrees Calculated R [place] 58 degrees Calculated T [place] 90 degrees Diagnosis Sinus rhythm with short [place] Marked T wave abnormality, consider anterolateral ischemia [...] Mar 24 2018 5:37AM Referring Provider Line: [phone] ID: [id number] Xr Chest 1 View Result [...] radiologist report and is used for image Applied [employer] only Patient's old records, imaging and labs [...] earlier and charting completed later Dictation software, KnowRe, used which may contain error for similar sounding words even af ter review. Personal communication requested for any clarification. onversion Transa ction, Provider Unknown - 03/24/2018 10:02 AM PDT Case Management by DAHIANA Cerrato at 03/24/18 1002 Author: DAHIANA Cerrato Service: (none) Author Type: Supervisor Shuttle Fitting Filed: 03/24/18 1003 Date of Service: 03/24/18 1002 Status: Signed Flake Miller Helper: DAHIANA Cerrato (Supervisor Shuttle Fitting) Attended morning rounds, discussed over night events. [...] DAHIANA Cerrato Service: (none) Author Type: Supervisor Shuttle Fitting Filed: 03/24/18 1005 Date of Service: 03/24/18955 Status: Signed Flake Miller Helper: DAHIANA Cerrato (Supervisor Shuttle Fitting) Received t/c from pt's aunt Nancy who lives in [place]. 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 Nancy-Aunt- [phone] Radha - mother- [phone] onver chaz Transaction, Provider Unknown - 03/24/2018 8:06 AM PDT Case Management by DAHIANA Cerrato at 03/24/18805 Author: DAHIANA Cerrato Service: (none) Author Type: Supervisor Shuttle Fitting Filed: 03/24/18812 Date of Service: 03/24/18805 Status: Signed Flake Miller Helper: DAHIANA Cerrato (Supervisor Shuttle Fitting) 03/24/18804 Discharge Planning Evaluation Admitting Diagnosis acute respiratory failure Readmission No Living Arrangements Spouse/significant other Support Systems Spouse/significant other Type of Residence Private residence House type Apartment Independent with ADL's Yes Independent with Mobility Yes Home Care Services No Caregiver after Discharge No Mental Status Unable to answer questions (vented) Prior functional status Independent prior to admit Power of Thread Winder No (Grandfather was the only relative I could reach) Anticipated Discharge Plan Plan communicated to patient/family Yes Resources Financial concerns No Transportation issues No Patient/Family concerns No Anticipated Disposition Facility Type (TBD) Spoke with pt's grandfather Erik and discussed discharge planning, Pt is a 37 y.o., female admitted with respiratory failure . Pt lives with her BF in an apt in [place]. She is unemployed and receives welfare and [employer] stamps.Per Grandfather, pt is in the process of applying for social security disability. Pt has a sister in [place] ([place]) and her mother lives in [place] (Grandfather unabl e to give me the name of pt's mother). Pt does not use DME. She is normally independent. She has been on dialysis for approx 6 mo s. Per grandfather, pt has been off of drugs for 6 mos. Pt has no car and does not drive. She takes a medical transport to get to dialysis, otherwi se she [facility]. 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 RN edgar sed sedation for sedation holiday while teller supervisor set up for lab draw. Pt awoke and sat u pright in bed. RN reassured and redirected her, attempting to calm her. Pt escalated to thra shing arms and legs and kicking at teller supervisor and RN. RN requested assistance from BODY MAKER MACHINE SETTER and additional RN. BODY MAKER MACHINE SETTER and RN restrained [place] [address] Author: Jaye Sands DO Service: Supervisor Shipping Room Author Type: Physician Filed: 03/24/18528 Date of Service: 03/24/18512 Status: Signed Flake Miller Helper: Jaye Sands DO (Physician) Pt extubated herself [...] one point threw her emesis bag at [place], the RT standing next to the bed [...] 03/24/18518 Date of Service: 03/24/18511 Status: Signed Flake Miller Helper: Janet Ibrahim CRT (Certified Respiratory Therapist) Pt [...] 03/24/18445 Date of Service: 03/24/18444 Status: Signed Flake Miller Helper: Janet Ibrahim CRT (Certified Respiratory Therapist) Pt self extubated at 0400, pt became increasingly violent and verbally abusive. Deborah dubose, pt sedated and reintubated for airway protection. Elda Nash NP - 03/24/2018 2:43 AM PDT Progress Notes by BLAYNE Blue at 03/24/18242 Author: BLAYNE Blue Service: Supervisor Shipping Room Author Type: Advanced Registered Nurse Practitioner Filed: 03/24/1844 Date of Service: 03/24/18242 Status: Signed Flake Miller Helper: BLAYNE Blue (Advanced Registered Nurse Practitioner) Merged With [facility] Supervisor Shipping Room Service Progress Note Aurea Perez 37 y.o. [...] several months" according to the documentation at [facility]. The ED physician felt that it was more probable that she had used methamphetamine recently and that was what resulted in her acute pulmonary edema. Lab findings at [facility] were significant for serum CO2 11, WBC 16.3, BUN 65, creatini ne 5.26, lactic acid 7.8, and K of 3.3. ABG showed a pH of 7.08, pCO2 49.4, pO2 95, HCO3 14 .4. A CXR showed pulmonary edema. After consulting with Dr. Sandoval, the recommended 3 amp s of sodium bicarbonate were given, and the patient was then transferred to [facility]'s ICU for further management. ICU Timeline: 03/22: Pt presented to [facility] ED in severe respiratory distress. Intubated; cristobal sferred to [facility] ICU. 03/23: Remained on MV, sedated [...] failure with hypoxia and hypercapnia. Intubated at [facility], and reintubated after self-extubation. Utilize lung protective [...] Service: Nephrology Author Type: Physician Filed: 03/30/18 5345 Date of Service: 03/23/182003 Status: Signed Flake Miller Helper: Trenton Faria MD (Physician) Merged With [facility] Service: NEPHROLOGY Progress Note Aurea Perez 37 y.o. 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 [...] 6 (six) hours as n eeded. B Rqpfosp-O-Qadnr Acid (RENAL-KIT) 0.8 MG TABS Take 1 [...] 25 mg by mouth nightly as needed. ngdtuhyplrwxfxb-hdzynehiqalszl-sjamfpaw (DUKES MOUTHWASH) suspension Swish and spit 10 mLs every 6 (six) hours as needed for Sore Throat. 240 mL 0 epoetin ant (PROCRIT) [id number] UNIT/ML injection Inject 8,000 Units into the [...] radiologist report and is used for image Applied BioCode only Patient's old records, imaging and labs [...] earlier and charting completed later Dictation software, KnowRe, used which may contain error for similar sounding words even af ter review. Personal communication requested for any clarification. onversion Transa ction, Provider Unknown - 03/23/2018 4:30 PM PDT Therapy Progress Note by Stephany Martinez PT at 03/23/18 1630 Author: Stephany Martinez PT Service: (none) Author Type: Physical Therapist Filed: 03/23/18 1643 Date of Service: 03/23/18 1630 Status: Signed Flake Miller Helper: Stephany Martinez PT (Physical Therapist) 03/23/18 1630 PT Last Visit PT Received On 03/23/18 Requires PT Follow Up On hold Other Comments Comments Pt tolerated sedation holiday poorly according to RN. Eitan P.T. for today. onver chaz Transaction, Provider Unknown - 03/23/2018 4:27 PM PDT Case Management by DAHIANA Cerrato at 03/23/181626 Author: DAHIANA Cerrato Service: (none) Author Type: Supervisor Shuttle Fitting Filed: 03/23/18 1931 Date of Service: 03/23/181626 Status: Signed Flake Miller Helper: DAHIANA Cerrato (Supervisor Shuttle Fitting) Spoke with pt's grandfather by phone. He provided brief info about pt. Will complete asses sment tomorrow. Skylar Valencia- [phone] onver chaz Transaction, Provider Unknown - 03/23/2018 2:42 PM PDT Progress Notes by Kirk Hernandez RD at 03/23/18 1442 Author: Kirk Hernandez RD Service: (none) Author Type: Registered Dietitian Filed: 03/23/18 1442 Date of Service: 03/23/181441 Status: Signed Flake Miller Helper: Kirk Hernandez RD (Registered Dietitian) 03/23/18 1402 Subjective Timepoint Admit (Routine ICU consult, triggers [...] advance diet as tolerated to renal. Recommend DIE GRINDER consult if concerns for dysphagia arise. If [...] DAHIANA Cerrato Service: (none) Author Type: Supervisor Shuttle Fitting Filed: 03/23/18 0939 Date of Service: 03/23/18937 Status: Signed Flake Miller Helper: DAHIANA Cerrato (Supervisor Shuttle Fitting) Pt was last hospitalized at [facility] in 2017. Below is assessment from that [...] female who is independent and lives in [place]. She has been seen by Yenny the [facility] for her substance abuse. She denies having any needs for discharge. Patient's PCP is: Erik Flor Patient's insurance:Medicaid Coverage concerns: none Medication coverage/concerns: yes Community resources utilized / needed: none Assistance in transportation: [place] Medicaid Transport Identification of any specific education / training: [facility] for substance abuse Barriers to Discharge / Alternative housing needed: none Anticipated DCP: Bello Tamayo onver chaz Mirza Provider Unknown - 03/23/2018 7:53 AM PDT Progress Notes by Janet Caceres RN at 03/23/18752 Author: Janet Caceres RN Service: (none) Author Type: Registered Nurse Filed: 03/23/18752 Date of Service: 03/23/18752 Status: Signed Flake Miller Helper: Janet Caceres RN (Registered Nurse) Please order contact precautions for MRSA. Thank you!Janet Infection Prevention Elda Nash NP - 03/23/2018 3:27 AM PDT Progress Notes by BLAYNE Blue at 03/23/18326 Author: BLAYNE Blue Service: Supervisor Shipping Room Author Type: Advanced Registered Nurse Practitioner Filed: 03/23/18 0713 Date of Service: 03/23/18326 Status: Addendum Flake Miller Helper: BLAYNE Blue (Advanced Registered Nurse Practitioner) Related Notes: Original Note by BLAYNE Blue (Advanced Registered Nurse Prac titioner) filed at 03/23/18 0557 Merged With [facility] Supervisor Shipping Room Service Progress Note Aurea Vazquez Chris 37 y.o. Hospital Day: LOS: 1 [...] several months" according to the documentation at [facility]. The ED physician felt that it was more probable that she had used methamphetamine recen tly and that was what resulted in her acute pulmonary edema. Lab findings at [facility] were significant for serum CO2 11, WBC 16.3, BUN 65, creatini ne 5.26, lactic acid 7.8, and K of 3.3. ABG showed a pH of 7.08, pCO2 49.4, pO2 95, HCO3 14 .4. A CXR showed pulmonary edema. After consulting with Dr. Sandoval, the recommended 3 amp s of sodium bicarbonate were given, and the patient was then transferred to [facility]'s ICU for further management ICU Timeline: 03/22: Pt presented to [facility] ED in severe respiratory distress. Intubated; cristobal sferred to [facility] ICU. Events Overnight: Remained on MV, [...] ventilation. Plan for daily sedation holiday with waste reduction coordinator rdinated spontaneous breathing trial. Hx methamphetamine [...] failure with hypoxia and hypercapnia. Intubated at [facility]. Re peat ABG improved. Utilize lung [...] 03/23/1838 Date of Service: 03/23/1831 Status: Signed Flake Miller Helper: Crystal Wright RN (Registered Nurse) Patient arrived from [facility] with bicarb gtt infusing into tunneled HD [...] AM PDT Pharmacy Note by Freida Staples [facility] at 03/23/18 0024 Author: Freida Staples RPH Service: Pharmacy Author Type: Pharmacist Filed: 03/23/1823 Date of Service: 03/23/1823 Status: Signed Flake Miller Helper: Freida Staples RPH (Pharmacist) Clinical Pharmacy Note: [...] 03/22/182121 Date of Service: 03/22/182121 Status: Signed Flake Miller Helper: Sudeep Lorenzana RPH (Pharmacist) Renal Dosing Monitoring: [...] | | | | | | at [facility], [address] | | | | | | [facility], | | | | | | [place] [address] | | | | | |Testing performed at [facility], [address] [facility], [place] [address] | | | | | | | [...] EXTERNAL | | | | performed at [facility], [address] | | LAB | | | | [address], | | | | | | [place] [address] | | | | + + + [...] EXTERNAL | | | | performed at [facility], [address] | | LAB | | | | [address], | | | | | | [place] [address] | | | | + + + [...] | | | | | performed at [facility], [address] | | | | | | [facility], | | | | | | [place] [address] | | | | + + + [...] COMPARISON | | | STUDIES: None. PRIMARY DIRECTOR OF CARDIOLOGY: Chalino Thomas MD, PhD, RPVI | | [...] wire | | | for a 4 Chilean sheath. The Kumpe catheter and Glidewire were [...] poor fistula flow. COMPARISON STUDIES: None. PRIMARY DIRECTOR OF CARDIOLOGY: Chalino Thomas MD, | | PhD, RPVI [...] a wire for a 4 | | [place]an sheath. The Kumpe catheter and Glidewire were [...] LAB | | | | performed at [facility], [address] | | | | | | [address], | | | | | | [place] [address] | | | | | | | [...] | | | QUALITATIVE | performed at [facility] | | LAB | | | | [address];[place] | | | | | | [address] | | | | + + + [...] EXTERNAL | | | | performed at [facility], [address] | | LAB | | | | [address], | | | | | | [place] [address] | | | | + + + [...] EXTERNAL | | | | performed at [facility], [address] | | LAB | | | | [address], | | | | | | [place] [address] | | | | + + + [...] | | | | | performed at [facility], [address] | | | | | | [facility], | | | | | | [place] [address] | | | | + + + [...] | | | Basophils | performed at [facility], [address] | K/uL | LAB | | | | [address], | | | | | | [place] [address] | | | | + + + [...] EXTERNAL | | | | performed at [facility], [address] | | LAB | | | | [address], | | | | | | [place] [address] | | | | + + + [...] | | | | | [place] [address] | | | | + + + [...] | | | | | performed at [facility], [address] | | | | | | [facility], | | | | | | [place] [address] | | | | + + + [...] | | | Basophils | performed at [facility];[address] | K/uL | LAB | | | | [address];[place] | | | | | | [address] | | | | + + + [...] EXTERNAL | | | | performed at [facility];[address] | | LAB | | | | [address];[place], [place] | | | | | | [address] | | | | + + + [...] EXTERNAL | | | | performed at [facility];[address] | | LAB | | | | [address];[place], [place] | | | | | | [address] | | | | + + + [...] | | | | | performed at [facility];[address] | | | | | | [facility];[place], [place] | | | | | | [address] | | | | + + + [...] | | | | | performed at [facility];[address] | | | | | | [address];[place], [place] | | | | | | [address] | | | | + + + [...] | | | | | [place] [address] | | | | + + + [...] EXTERNAL | | | | performed at [facility], [address] | | LAB | | | | [address], | | | | | | [place] [address] | | | | + + + [...] | | | | | performed at [facility], [address] | | | | | | [facility], | | | | | | [place] [address] | | | | + + + [...] | | | Fingerstick | performed at [facility];[address] | | LAB | | | | [address];[place] | | | | | | [address] | | | | + + + [...] | | | | | | ACUTE NV Testing | | | | | | performed at [facility];[address] | | | | | | [address];[place], [place] | | | | | | [address] | | | | + + + [...] 5:37AM Referring Provider Line: | | | [phone] ID: [id number] | | + + + [...] | | 2017 5:37AM Referring Provider Line: [phone] ID: [id number] | |Lungs/Pleura: Bilateral pulmonary opacities, [...] 24 2018 5:37AM Referring Provider Line: [phone] ID: [id number] | + + Troponin I [...] | | | | | | ACUTE NV Testing | | | | | | performed at [facility] | | | | | | [facility];[place], [place] | | | | | | [address] | | | | + + + [...] | | | Basophils | performed at [facility];[address] | K/uL | LAB | | | | [address];[place], [place] | | | | | | [address] | | | | + + + [...] EXTERNAL | | | | performed at [facility] | | LAB | | | | [address];[place] | | | | | | [address] | | | | + + + [...] EXTERNAL | | | | performed at [facility];[address] | | LAB | | | | [address];[place], [place] | | | | | | [address] | | | | + + + [...] | | | | | | MDRD [facility] traceable | | | | | | equation.Testing | | | | | | performed at [facility] | | | | | | [facility];[place], [place] | | | | | | [address] | | | | + + + [...] | | | Basophils | performed at [facility];[address] | K/uL | LAB | | | | [address];[place], [place] | | | | | | [address] | | | | + + + [...] EXTERNAL | | | | performed at [facility];[address] | | LAB | | | | [address];[place], [place] | | | | | | [address] | | | | + + + [...] EXTERNAL | | | | performed at [facility];[address] | | LAB | | | | [address];[place] | | | | | | [address] | | | | + + + [...] | | | | | performed at [facility];[address] | | | | | | [facility];[place], [place] | | | | | | [address] | | | | + + + [...] | | | | | performed at [facility] | | | | | | [facility];[place], [place] | | | | | | [address] | | | | + + + [...] | | | | | performed at [facility];[address] | | | | | | [address];[place] | | | | | | [address] | | | | + + + [...] EXTERNAL | | | | performed at [facility];[address] | | LAB | | | | [address];[place], [place] | | | | | | [address] | | | | + + + [...] EXTERNAL | | | | performed at [facility];[address] | | LAB | | | | [address];[place] | | | | | | [address] | | | | + + + [...] EXTERNAL | | | | performed at [facility];[address] | mmol/L | LAB | | | | [address];[place], [place] | | | | | | [address] | | | | + + + [...] | | | | | | MDRD [facility] traceable | | | | | | equation.Testing | | | | | | performed at [facility];[address] | | | | | | [facility];[place], [place] | | | | | | [address] | | | | + + + [...] | | | PCRAbnormal Testing performed at [facility];[address] [place] [address];[place] [address] | | + + + + +---------+ [...] | | | Fingerstick | performed at [facility];[address] | | LAB | | | | [address];[place], [place] | | | | | | [address] | | | | + + + [...]
--- OUTSIDE RECORDS SUMMARY | ~2019-05-10 | XMS | Encounter Summary ---
Demographics + + + | Address | [address] | | | [place] [address] | + + + | Home Phone | | + + + | Preferred Language | Unknown | + + + | Marital Status | | + + + | Restoration Affiliation | 1038 | + + + | Race | Unknown | + + + | Ethnic Group | Unknown | + + + Author + + + | Author | [facility] | | | and Laloana | + + + | Organization | [facility] [...] [place] | | | | | [address] | | + + + + + Care Team Providers + +------+ + | Care Skill Training Program Coordinator Name | Role | Phone | + +------+ + PCP | Unavailable | + +------+ + Encounter Details +--------+ + + + + | Date | Type | Department | Care Team | Description | +--------+ + + + + | 11/09/ | Abstract | [facility] | Xavier | | | 2018 | | SURGERY [address] | MD Lino, FACS [address] | | | | | [address] [place], [place] | [address] [place] | | | | | [address] | [place] [address] | | | | | [phone] | [phone] | | | | | | | [...] | EXTERNAL LAB: SHAKIRA | Routin | 11/02/2017 | | Results for this | | | e | | | procedure are in the | | | | | | results section. | + +--------+ + + + | EXTERNAL LAB: | Routin | 11/02/2017 | | Results for this | | GLUCOSE | e | | | procedure are in the | | | | | | results section. | + +--------+ + + + | EXTERNAL LAB: | Routin | 11/02/2017 | | Results for this | | CALCIUM | e | | | procedure are in the | | | | | | results section. | + +--------+ + + + | EXTERNAL LAB: CARBON | Routin | 11/02/2017 | | Results for this | | DIOXIDE | e | | | procedure are in the | | | | | | results section. | + +--------+ + + + | EXTERNAL LAB: | Routin | 11/02/2017 | | Results for this | | CHLORIDE | e | | | procedure are in the | | | | | | results section. | + +--------+ + + + | EXTERNAL LAB: | Routin | 11/02/2017 | | Results for this | | POTASSIUM | e | | | procedure are in the | | | | | | results section. | + +--------+ + + + | EXTERNAL LAB: SODIUM | Routin | 11/02/2017 | | Results for this | | | e | | | procedure are in the | | | | | | results section. | + +--------+ + + + | EXTERNAL LAB: | Routin | 11/02/2017 | | Results for this | | FERRITIN | e | | | procedure are in the | | | | | | results section. | + +--------+ + + + | EXTERNAL LAB: CBC | Routin | 11/02/2017 | | Results for this | | | e | | | procedure are in the | | | | | | results section. | + +--------+ + + + | EXTERNAL LAB: | Routin | 11/02/2017 | | Results for this | | CHOLESTEROL, LDL | e | | | procedure are in the | | DIRECT | | | | results section. | + +--------+ + + + | EXTERNAL LAB: EGFR | Routin | 11/02/2017 | | Results for this | | | e | | | procedure are in the | | | | | | results section. | + +--------+ + + + | EXTERNAL LAB: | Routin | 11/02/2017 | | Results for this | | CREATININE | e | | | procedure are in the | | | | | | results section. | + +--------+ + + + | VITAMIN B12+FOLATE | Routin | 11/02/2017 | | Results for this | | | e | | | procedure are in the | | | | | | results section. | + +--------+ + + + | CBC WITH | Routin | 11/02/2017 | | Results for this | | DIFFERENTIAL | e | | | procedure are in the | | | | | | results section. | + +--------+ + + + | COMPREHENSIVE | Routin | 11/02/2017 | | Results for this | | METABOLIC PANEL | e | | | procedure are in the | | | | | | results section. | + +--------+ + + + documented in this encounter Results CBC with Differential (11/02/2017) + +-------+ + + + | Component | Value | Ref Range | Performed | Pathologist | | | | | At | Signature | + +-------+ + + + | MCH | 30.0 | 26.0 - 33.0 pg | | | + +-------+ + + + | MCHC | 32.5 | 30.0 - 36.0 % | | | + +-------+ + + + | % Basophils | 1.0 | 0.0 - 2.0 % | | | + +-------+ + + + + + | Specimen | + + | Blood | + + Comprehensive Metabolic Panel (11/02/2017) + +-------+ + + + | Component | Value | Ref Range | Performed | Pathologist | | | | | At | Signature | + +-------+ + + + | Anion Gap | 18 | 10 - 20 mmol/L | | | + +-------+ + + + + + | Specimen | + + | Blood | + + Vitamin B-12 and Folate (11/02/2017) + +-------+ + + + | Component | Value | Ref Range | Performed | Pathologist | | | | | At | Signature | + +-------+ + + + | Vitamin B12 | 602 | 247 - 911 pg/mL | | | | Bind | | | | | | Capacity | | | | | + +-------+ + + + | FOLATE | >24.8 | 5.9 - 24.8 | | | | INTERPRETAT | | ng/mL | | | | ION | | | | | + +-------+ + + + + + | Specimen | + + | Blood | + + External Lab: SHAKIRA (11/02/2017) + +--------+ + + + | Component | Value | Ref Range | Performed | Pathologist | | | | | At | Signature | + +--------+ + + + | BUN, | 34 (A) | 0.4 - 1.6 | EXTERNAL | | | External | | | LAB | | + +--------+ + + + + +---------+ + + | Performing | Address | City/State/Zipcode | Phone Number | | Organization | | | | + +---------+ + + | EXTERNAL LAB | | | | + +---------+ + + External Lab: Glucose (11/02/2017) + +---------+ + + + | Component | Value | Ref Range | Performed | Pathologist | | | | | At | Signature | + +---------+ + + + | Glucose, | 128 (A) | 10 - 24 | EXTERNAL | | | External | | | LAB | | + +---------+ + + + + +---------+ + + | Performing | Address | City/State/Zipcode | Phone Number | | Organization | | | | + +---------+ + + | EXTERNAL LAB | | | | + +---------+ + + External Lab: Calcium (11/02/2017) + +-------+ + + + | Component | Value | Ref Range | Performed | Pathologist | | | | | At | Signature | + +-------+ + + + | Calcium, | 9.3 | 8.6 - 10.6 | EXTERNAL | | | External | | | LAB | | + +-------+ + + + + +---------+ + + | Performing | Address | City/State/Zipcode | Phone Number | | Organization | | | | + +---------+ + + | EXTERNAL LAB | | | | + +---------+ + + External Lab: Carbon Dioxide (11/02/2017) + + + + + + | Component | Value | Ref Range | Performed | Pathologist | | | | | At | Signature | + + + + + + | Carbon | 25.0 (A) | 70 - 133 | EXTERNAL | | | Dioxide, | | | LAB | | | External | | | | | + + + + + + + +---------+ + + | Performing | Address | City/State/Zipcode | Phone Number | | Organization | | | | + +---------+ + + | EXTERNAL LAB | | | | + +---------+ + + External Lab: Chloride (11/02/2017) + +-------+ + + + | Component | Value | Ref Range | Performed | Pathologist | | | | | At | Signature | + +-------+ + + + | Chloride, | 101 | 98 - 106 | EXTERNAL | | | External | | | LAB | | + +-------+ + + + + +---------+ + + | Performing | Address | City/State/Zipcode | Phone Number | | Organization | | | | + +---------+ + + | EXTERNAL LAB | | | | + +---------+ + + External Lab: Potassium (11/02/2017) + +-------+ + + + | Component | Value | Ref Range | Performed | Pathologist | | | | | At | Signature | + +-------+ + + + | Potassium, | 4.7 | 3.2 - 4.8 | EXTERNAL | | | External | | | LAB | | + +-------+ + + + + +---------+ + + | Performing | Address | City/State/Zipcode | Phone Number | | Organization | | | | + +---------+ + + | EXTERNAL LAB | | | | + +---------+ + + External Lab: Sodium (11/02/2017) + +-------+ + + + | Component | Value | Ref Range | Performed | Pathologist | | | | | At | Signature | + +-------+ + + + | Sodium, | 139 | 136 - 142 | EXTERNAL | | | External | | | LAB | | + +-------+ + + + + +---------+ + + | Performing | Address | City/State/Zipcode | Phone Number | | Organization | | | | + +---------+ + + | EXTERNAL LAB | | | | + +---------+ + + External Lab: Ferritin (11/02/2017) + +---------+ + + + | Component | Value | Ref Range | Performed | Pathologist | | | | | At | Signature | + +---------+ + + + | Ferritin, | 324 (A) | 10 - 305 | EXTERNAL | | | External | | | LAB | | + +---------+ + + + + +---------+ + + | Performing | Address | City/State/Zipcode | Phone Number | | Organization | | | | + +---------+ + + | EXTERNAL LAB | | | | + +---------+ + + External Lab: CBC (11/02/2017) + + + + + + | Component | Value | Ref Range | Performed | Pathologist | | | | | At | Signature | + + + + + + | WBC, | 5.30 | 4 - 11 | EXTERNAL | | | External | | | LAB | | + + + + + + | HGB, | 14.0 | 12.2 - 16.2 | EXTERNAL | | | External | | | LAB | | + + + + + + | HCT, | 43.1 | 37 - 47 | EXTERNAL | | | External | | | LAB | | + + + + + + | PLT, | 201 | 140 - 425 | EXTERNAL | | | External | | | LAB | | + + + + + + | Neutrophils | 58 | 38 - 70 | EXTERNAL | | | %, | | | LAB | | | External | | | | | + + + + + + | Lymphocytes | 29 | 15 - 48 | EXTERNAL | | | %, | | | LAB | | | External | | | | | + + + + + + | Monocytes | 10 | 3 - 11 | EXTERNAL | | | %, External | | | LAB | | + + + + + + | Eosinophils | 3 | 0 - 7 | EXTERNAL | | | %, | | | LAB | | | External | | | | | + + + + + + | Neutrophils | 3,089.9 | 1,900 - 7,400 | EXTERNAL | | | , Absolute, | | | LAB | | | External | | | | | + + + + + + | Lymphocytes | 1,510.5 | 600 - 5,280 | EXTERNAL | | | , Absolute, | | | LAB | | | External | | | | | + + + + + + | Monocytes, | 519.4 | 120 - 1,210 | EXTERNAL | | | Absolute, | | | LAB | | | External | | | | | + + + + + + | Eosinophils | 148.4 | 0 - 770 | EXTERNAL | | | , Absolute | | | LAB | | + + + + + + | Basophils, | 31.8 | 0 - 220 | EXTERNAL | | | Absolute | | | LAB | | + + + + + + | RBC, | 4.66 | 4 - 5.5 | EXTERNAL | | | External | | | LAB | | + + + + + + | MCV, | 93 | 80 - 98 | EXTERNAL | | | External | | | LAB | | + + + + + + | RDW, | 15.5 (A) | 11 - 15 | EXTERNAL | | | External | | | LAB | | + + + + + + + +---------+ + + | Performing | Address | City/State/Zipcode | Phone Number | | Organization | | | | + +---------+ + + | EXTERNAL LAB | | | | + +---------+ + + External Lab: Cholesterol, LDL Direct (11/02/2017) + +-------+ + + + | Component | Value | Ref Range | Performed | Pathologist | | | | | At | Signature | + +-------+ + + + | LDL | 153 | 100 - 205 | EXTERNAL | | | Cholesterol | | | LAB | | | , Direct, | | | | | | External [...] + +---------+ + + External Lab: eGFR (11/02/2017) + +---------+ + + + | Component | Value | Ref Range | Performed | Pathologist | | | | | At | Signature | + +---------+ + + + | eGFR, | 7.1 (A) | 60 - 57,999 | EXTERNAL | | | External | [...] + +---------+ + + External Lab: Creatinine (11/02/2017) + +---------+ + + + | Component | Value | Ref Range | Performed | Pathologist | | | | | At | Signature | + +---------+ + + + | Creatinine, | 6.5 (A) | 0.4 - 1.6 | EXTERNAL | | | External | [...]
--- OUTSIDE RECORDS SUMMARY | ~2019-05-10 | XMS | Encounter Summary ---
Demographics + + + | Address | [address] | | | [place] [address] | + + + | Home Phone | | + + + | Preferred Language | Unknown | + + + | Marital Status | | + + + | Zoroastrianism Affiliation | 1038 | + + + | Race | Unknown | + + + | Ethnic Group | Unknown | + + + Author + + + | Author | [facility] | | | and [place]aloana | + + + | Organization | [facility] | | | and [...] [place] | | | | | [address] | | + + + + + Care Team Providers + +------+ + | Care Gullet Slitter Name | Role | Phone | + [...] + | 10/28/ | Telephone | [facility] | Xavier Gallagher | Other | | 2017 | | SURGERY [address] | MD Lino, FACS [address] | | | | | [address] [place], [place] | [address] [facility] | | | | | [address] | [place] [address] | | | | | [phone] | [phone] | | | | | | | [...]
--- OUTSIDE RECORDS SUMMARY | ~2019-05-10 | XMS | Encounter Summary ---
Demographics + + + | Address | [address] | | | [place] [address] | + + + | Home Phone | | + + + | Preferred Language | Unknown | + + + | Marital Status | | + + + | Latter-Day Affiliation | 1038 | + + + | Race | Unknown | + + + | Ethnic Group | Unknown | + + + Author + + + | Author | [facility] | | | and [place]aloana | + + + | Organization | [facility] | [...] [place] | | | | | [address] | | + + + + + Care Team Providers + +------+ + | Care Screwhead Polisher Name | Role | Phone | + [...] | [address] | [address] | | | | | [place], [place] | [place], | | | | | [address] | [place] [address] | | | | | [phone] | [phone] | | | | | | | [...] + + + | CULTURE, BLOOD | Routin | 04/01/2018 | | Results for this | | | e | 11:45 AM | | procedure are in the | | | | PDT | | results section. | + +--------+ + + + documented in this encounter Results Culture, Blood (04/01/2018 11:45 AM PDT) + + | Specimen | + + | | + + + + + | Narrative | Performed At | + + + | Specimen Description BLOOD SPECIAL | EXTERNAL LAB | | REQUESTS ARTERIAL CULTURE | | | NO GROWTH 6 [...]
--- OUTSIDE RECORDS SUMMARY | ~2019-05-10 | XMS | Encounter Summary ---
Demographics + + + | Address | [address] | | | [place] [address] | + + + | Home Phone | | + + + | Preferred Language | Unknown | + + + | Marital Status | | + + + | Mandaeism Affiliation | 1038 | + + + | Race | Unknown | + + + | Ethnic Group | Unknown | + + + Author + + + | Author | [facility] | | | and [place] | + + + | Organization | [facility] | | | and [place] [...] + | Beverly Perez | ECON | [place] | | | | | [address] | | + + + + + Care Team Providers + +------+ + | Care Operator Engineer Name | Role | Phone | [...] + + | 09/01/ | Hospital | [facility] | Jhoana Barreto | SOB (shortness of | | 2018 | Encounter | MED CTR XRAY [address] | M, DO [address] | breath) | | | | [place] | [place] | | | | | [place] [address] | [place], [place] | | | | | [phone] | [address] | | | | | | | [...] XR CHEST PA AND | Routin | 09/01/2017 | SOB (shortness of | Results for this | | LATERAL | e | 1:10 PM | breath) | procedure are in the | | [...] for pneumonia. Dictated and Signed by: Elmer Ruiz, | | | Electronically signed: 09/01/2017 1:34 [...] concerning for pneumonia.Dictated and Signed by: Elmer Ruiz, | | Electronically signed: 09/01/2017 1:34 PM [...]
--- OUTSIDE RECORDS SUMMARY | ~2019-05-10 | XMS | Encounter Summary ---
Demographics + + + | Address | [address] | | | [place] [address] | + + + | Home Phone | | + + + | Preferred Language | Unknown | + + + | Marital Status | | + + + | Worship Affiliation | 1038 | + + + | Race | Unknown | + + + | Ethnic Group | Unknown | + + + Author + + + | Author | [facility] | | | and [place]aloana | + + + | Organization | [facility] | | | and [place] [...] [place] | | | | | [address] | | + + + + + Care Team Providers + +------+ + | Care Consumer Product Advisor Name | Role | Phone | + +------+ + PCP | Unavailable | + +------+ + Reason for Visit + + + | Reason | Comments | + + + | TCM - Hosp FU | | + + + Encounter Details +--------+ + + + + | Date | Type | Department | Care Team | Description | +--------+ + + + + | 07/22/ | Telephone | [facility] | Unknown, Doctor | TCM - Hosp FU | | 2019 | | [facility] | | | | | | [address] | (Fax) | | | | | [place] | | | | | | [address] | | | | | | [phone] | | | +--------+ + + + [...]
--- OUTSIDE RECORDS SUMMARY | ~2019-05-10 | XMS | Clinical Summary ---
Demographics + + + | Address | [address] | | | [place] [address] | + + + | Home Phone | | + + + | Preferred Language | Unknown | + + + | Marital Status | | + + + | Druze Affiliation | 1038 | + + + | Race | Unknown | + + + | Ethnic Group | Unknown | + + + Author + + + | Author | [facility] [employer] (Historical as of | | | 01-21-19) | + + + | Organization | [facility] [employer] (Historical as of | | | 01-21-19) [...] [place] | | | | | [address] | | + + + + + Care Team Providers + +------+ + | Care Optical Goods Drill Operator Name | Role | Phone | [...] | + + + +---------+------+------+-------+ | B [id number] | Take 1 tablet by | | [...] | | | Activ | | (PROCRIT) [id number] | into the skin 3 | | [...] +------+-------+ + | MEDICARE | MEDICA | [id number] | | | [address] | | | RE | | | | [place] [address] | | | IP-OP | | | | | + +--------+ +------+-------+ + | MEDICAID | MEDICA | [id number] | | | [address] | | | ID | | | | [place] | | | [place] | | | | [address] | + +--------+ +------+-------+ + + +--------+ [...] | | al/Fam | | 1980 | [phone] | [place] | | | [place] | | | [phone] | [address] | + +--------+ +--------+ + +
--- OUTSIDE RECORDS SUMMARY | ~2019-05-10 | XMS | Encounter Summary ---
Demographics + + + | Address | [address] | | | [place] [address] | + + + | Home Phone | | + + + | Preferred Language | Unknown | + + + | Marital Status | | + + + | Gnosticism Affiliation | 1038 | + + + | Race | Unknown | + + + | Ethnic Group | Unknown | + + + Author + + + | Author | [facility] | | | and [place] | + + + | Organization | [facility] | [...] [place] | | | | | [address] | | + + + + + Care Team Providers + +------+ + | Care Fish And Wildlife Biologist Name | Role | Phone | + [...] DO [address] | injury) ([facility]) | | | | [address] | [place] | (Primary Dx) | | | | [place], [place] | [place], [place] | | | | | [address] | [address] | | | | | [phone] | | | +--------+ + + + [...]
--- OUTSIDE RECORDS SUMMARY | ~2019-05-10 | XMS | Encounter Summary ---
Demographics + + + | Address | [address] | | | [place] [address] | + + + | Home Phone | | + + + | Preferred Language | Unknown | + + + | Marital Status | | + + + | Protestant Affiliation | 1038 | + + + | Race | Unknown | + + + | Ethnic Group | Unknown | + + + Author + + + | Author | [facility] | | | and Laloana | + + + | Organization | [facility] | | | and Laloana [...] + | Beverly Perez | ECON | [place], [place] | | | | | [address] | | + + + + + Care Team Providers + +------+ + | Care Transcription Specialist Name | Role | Phone | + +------+ + PCP | Unavailable | + +------+ + Reason for Visit +---------+ + | Reason | Comments | +---------+ + | Post Op | RIGHT transposed basilic vein fistula creation | +---------+ + Evaluate & Treat (Routine) +--------+ + + + + + | Status | Reason | Specialty | Diagnoses / | Referred By | Referred To | | | | | Procedures | Contact | Contact | +--------+ + + + + + | Closed | Specialty | Surgery / | Diagnoses | Strojuani, | Field, | | | Services | General | ESRD (end | Jhoana Flowers, | Xavier Huynh, | | | Required | Surgery | stage renal | DO [address] | [address] | | | | | disease) | Rich Mann | [address] | | | | | ([facility]) | [address] | [place], | | | | | | [place] | [place] [address] | | | | | | [address] | Phone: | | | | | | Phone: | [phone] | | | | | | [phone] | Fax: | | | | | | Fax: | [phone] | | | | | | [phone] | | +--------+ + + + + + Encounter Details +--------+---------+ + + + | Date | Type | Department | Care Team | Description | +--------+---------+ + + + | 01/13/ | Office | [facility] | Xavier Gallagher | ESRD (end stage | | 2018 | Visit | SURGERY [address] | MD Lino, FACS [address] | renal disease) (HCC) | | | | [place], [place] | [facility] | (Primary Dx); | | | | [address] | [place] [address] | Post-operative state | | | | [phone] | [phone] | | | | | | | [...] + + + | Blood Pressure | - | - | | + + + + + | Pulse | 91 | 01/13/2018 10:15 AM | | | | | PDT | | + + + + + | Temperature | 36.3 C (97.4 F) | 01/13/2018 10:15 AM | | | | | PDT | | + + + + + | Respiratory Rate | 16 | 01/13/2018 10:15 AM | | | | | PDT | | + + + + + | Oxygen Saturation | 98% | 01/13/2018 10:15 AM | | | | | PDT | | + + + + + | Inhaled Oxygen | - | - | | | Concentration | | | | + + + + + | Weight | 49.9 kg (110 lb 0.2 | 01/13/2018 10:15 AM | | | | oz) | PDT | | + + + + + | Height | 165.1 cm (5' 5") | 01/13/2018 10:15 AM | | | | | PDT | | + + + + + | Body Mass Index | 18.31 | 01/13/2018 10:15 AM | | | | | PDT | | + + + + + documented in this encounter Progress Notes , Xavier Huynh MD, FACS - 01/13/2018 10:20 AM PDTFormatting of this note might be diff erent from the original. Patient Identification: Aurea Perez 1980 Is a 37 y.o. female , a pat ient of ZOIE Esquivel. Patient is here alone. S: Date of surgery: 01/04/2018. Title of surgery: RIGHT transposed basilic vein fistula cr eation . Physician notes: Patient arrives 9 day(s) s/p RIGHT transposed basilic vein fistula creation. She was seen at [facility] in clinic the other day. She reports her RIGHT arm drain bulb was last emptied two days ago. Took two pain pill yesterday, states she usually takes them at the en d of the day. She wonders when they will remove her RIGHT tunneled dialysis catheter. States she has been 8 months clean, denies doing meth or other recreational drugs. PAST MEDICAL HISTORY Past Medical History: Diagnosis Date Anemia Anxiety Arthritis Cardiomyopathy (HCC) 07/16/2017 Overview: Overview: Echo report scanned into [employer]. LVF 35-40% CHF (congestive heart failure) (HCC) CHF with current exacerbation due to renal failure and edema. 09/30/2017 Chronic kidney disease (CKD), stage V (HCC) 09/21/2017 Depression Encounter for blood transfusion End stage renal disease ([facility]) 12/26/2017 Heart murmur Hypertension Intrauterine 07/16/2017 Overview: labs from [facility]: 06/08/17: A positive. Ab negative. RPR nonreactive, HBsAg nonreactive. HCV Ab nonreactive, HIV nonreactive. Rubella immune. Detailed US on 07/09. Posterior placenta. EFW 15th centile. No abnormalities. Methamphetamine use 07/16/2017 Overview: Last use 07/03. [facility]: Utox 07/09/2017 Negative. Peritonsillar abscess 01/12/2017 Preeclampsia History of Preeclampsia in past 2 pregnancies. Substance abuse Termination of (fetus) 07/19/2017 07/17/2017 - [facility] Past Surgical History: Procedure Laterality Date AV FISTULA INSERTION Right 01/04/2018 Procedure: RIGHT transposed basilic vein fistula creation; Surgeon: Xavier Gallagher MD , FACS; Location: 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 Glomerulosclerosis, moderate interstial f ibrosis and tubular atrophy FOREARM FRACTURE SURGERY Right 2006 TUNNELED VENOUS CATHETER PLACEMENT Right 07/10/2017 Jonah Romero MD - [place], [place] Ulna removed Right 2004 Allergies Allergen Reactions Codeine Anaphylaxis Sumatriptan Anaphylaxis Medications: Outpatient Encounter Prescriptions as of 01/13/2018 Medication Sig Dispense Refill [DISCONTINUED] ALPRAZolam (XANAX PO) Take by mouth. Patient not sure of dose, has not taken in two weeks. B Uxzpbua-E-Smutx Acid (RENAL-KIT) 0.8 MG TABS Take 1 [...] is administered at an infusion clinic in [facility]]. 180.04 mL furosemide (LASIX) 40 mg tablet Take 2 tablets by mouth Daily. 60 tablet 3 HYDROcodone-acetaminophen (NORCO) 5-325 mg per tablet Take 1-2 tablets by mouth every 4 hours as needed for Pain. 30 tablet 0 lisinopril (PRINIVIL, ZESTRIL) 20 mg tablet Take 1 tablet by mouth Daily. 30 tablet 3 sucroferric oxyhydroxide (VELPHORO) 500 mg chewable tablet Take 1 tablet by mouth 3 fahad es daily (with meals). 90 tablet 3 No facility-administered encounter medications on file as of 01/13/2018. Family History Problem Relation Age of Onset [...] reports that she does not drink alcohol. PHYSICAL EXAM Vitals: 01/13/18 1015 Pulse: 91 Resp: 16 Temp: 36.3 C (97.4 F) TempSrc: Temporal SpO2: 98% Weight: 49.9 kg (110 lb 0.2 oz) Height: 1.651 m (5' 5") Body mass index is 18.31 kg/m. General Appearance: Alert, cooperative, no distress, appears stated age Skin: Warm and dry Upper Extremities: RIGHT arm AV fistula with good thrill . Stitch removed, OLIVA drain removed, steri stripped placed. Palpable Pulses: RIGHT LEFT Brachial Radial 2+ Ulnar Neurologic: Alert and oriented x3,Moving all 4 extremities. , Gait normal ULTRASOUND REPORT: PATIENT NAME : Aurea Perez EQUIPMENT: Son[employer]eejays M-Turbo with 10-5 mHertz probe. INDICATIONS: S/P RIGHT transposed basilic vein fistula creation. FINDING: RIGHT basilic vein measures 7.7 mm, good flow is present. IMPRESSION: Functioning RIGHT AV Fistula Assessment 1. ESRD (end stage renal disease) (HCC) 2. Post-operative state Plan 1) S/P RIGHT transposed basilic vein fistula creation. Recovering well Return to clinic in one month. Xavier Gallagher MD, FACS Vascular and General Surgery documented in this enc ounter Plan of Treatment Not on filedocumented as of this encounter Visit Diagnoses + + | Diagnosis | + + | ESRD (end stage renal disease) (HCC) - Primary End stage renal disease | + + | Post-operative state Other postprocedural status | + + documented in this encounter Additional Health Concerns + + + + | Infection | Noted Time | Resolved Time | + + + + | Methicillin-resistant Staphylococcus aureus | 03/23/2018 12:00 AM | | | | PDT | | + + + + documented as of this encounter
--- OUTSIDE RECORDS SUMMARY | ~2019-05-10 | XMS | Encounter Summary ---
Demographics + + + | Address | [address] | | | [place] [address] | + + + | Home Phone [...] | Author | [facility] | | | and Laloana | + + + | Organization | [facility] | | | and Laloana [...] [place] | | | | | [address] | | + + + + + Care Team Providers + +------+ + | Care Customer Care Team Coach Name | Role | Phone | + [...] + + | 09/29/ | Office | [facility] | ZuleimaCarina FNP | Hematuria, | | 2018 | Visit | [facility]IC[facility]OVER | [address] | unspecified type | | | | [address] | [place] | (Primary Dx); | | | | [place] | [address] | Anxiety; Depression, | | | | [address] | | unspecified | | | | [phone] | | depression type; AUNG | | | | | | (acute kidney | | | | | | injury) ([facility]); | | | | | | Essential | | | | | | hypertension, | | | | | | malignant; TTP | | | | | | (thrombotic | | | | | | thrombocytopenic | | | | | | purpura) ([facility]); | | | | | | Congestive heart | | | | | | failure, unspecified | | | | | | HF chronicity, | | | | | | unspecified heart | | | | | | failure type ([facility]); | | | | | | Acute [...] type | | | | | | ([facility]) | +--------+---------+ + + + Social History [...] to follow-up after recent hospitalization at [facility], she was th ere are 09/01/17-09/16/17. Received and reviewed records. Started dialysis 3 days a week, ay Wednesday. Travels to [place] every Wednesday for infusion of Solaris ordered by Dr Abelardo Lew. Recently seen by Dr. Chaney, proof machine operator. Pap testing was done, was having va ginal spotting off and on since discharged from the hospital they told her this could likely be due to dialysis, also having some abdominal pain and STAMP MOUNTER ordered abdominal ultrasound. With all of her current health risks STAMP MOUNTER is pushing to have tubal ligation done [...] with traveli ng back and forth to [place] and in and out of dialysis 3 days a week. Denies any dysuria b ut we should get urinalysis to make sure we were not missing a urinary tract infection. Noti sawyer some hematuria, one episode. Living situation has improved. Living with 6 year old son and his father. [facility]ues [facility] and stay clean. [employer], had to reschedule due to hospitalization, now [...] gave to her to get done in [place]. Will notify of results once available - [...] Refill: 0 4. AUNG (acute kidney injury) ([facility]) Keep up with tubular riveter 5. Essential hypertension, malignant 6. TTP (thrombotic thrombocytopenic purpura) ([facility]) 7. Congestive heart failure, unspecified HF chronicity, unspecified heart failure type ([facility] ) 8. Acute renal failure superimposed on chronic kidney disease, on chronic dialysis, unspeci fied acute renal failure type ([facility]) Keep up with tubular riveter Will notify by phone of lab results. See her back in 4 weeks, sooner if needed. She still really needs to find a new PCP that have the expertise to help her. Return in about 4 weeks (around 10/27/2017). Patient understands, accepts, and agrees with this plan. Portions of this report were transcribed using [employer] voice recognition soft aggarwal. Although effort was [...]
--- OUTSIDE RECORDS SUMMARY | ~2019-05-10 | XMS | Encounter Summary ---
Demographics + + + | Address | [address] | | | [place] [address] | + + + | Home Phone [...] + | Author | [facility] | | | and Laloana | + + + | Organization | [facility] | | | and Laloana [...] + | Beverly Perez | ECON | [place], [place] | | | | | [address] | | + + + + + Care Team Providers + +------+ + | Care Mounter Automatic Name | Role | Phone | + [...] Surgery | stage renal | DO [address] | [address] | | | | | disease) | Rich Mann | [address] | | | | | ([facility]) | [address] | [place], | | | | | | [place] | [place] [address] | | | | | | [address] | Phone: | | | | | | Phone: | [phone] | | | | | | [phone] | Fax: | | | | | | Fax: | [phone] | | | | | | [phone] | | +--------+ + + + + + Encounter Details +--------+---------+ + + + | Date | Type | Department | Care Team | Description | +--------+---------+ + + + | 01/13/ | Office | [facility] | Xavier Gallagher | ESRD (end stage | | 2018 | Visit | SURGERY [address] | MD Lino, FACS [address] | renal disease) (HCC) | | | | [place], [place] | [facility] | (Primary Dx); | | | | [address] | [place] [address] | Post-operative state | | | | [phone] | [phone] | | | | | | | [...] vein fistula creation. She was seen at [facility] in clinic the other day. She reports [...] 07/16/2017 Overview: Overview: Echo report scanned into [employer]. LVF 35-40% CHF (congestive heart failure) (HCC) CHF with current exacerbation due to renal failure and edema. 09/30/2017 Chronic kidney disease (CKD), stage V (HCC) 09/21/2017 Depression Encounter for blood transfusion End stage renal disease ([facility]) 12/26/2017 Heart murmur Hypertension Intrauterine 07/16/2017 Overview: labs from [facility]: 06/08/17: A positive. Ab negative. RPR nonreactive, HBsAg nonreactive. HCV Ab nonreactive, HIV nonreactive. Rubella immune. Detailed US on 07/09. Posterior placenta. EFW 15th centile. No abnormalities. Methamphetamine use 07/16/2017 Overview: Last use 07/03. [facility]: Utox 07/09/2017 Negative. Peritonsillar abscess 01/12/2017 Preeclampsia History of Preeclampsia in past 2 pregnancies. 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 Glomerulosclerosis, moderate interstial f ibrosis and tubular atrophy FOREARM FRACTURE SURGERY Right 2006 TUNNELED VENOUS CATHETER PLACEMENT Right 07/10/2017 Jonah Romero MD - [place], [place] Ulna removed Right 2004 Allergies Allergen Reactions Codeine Anaphylaxis Sumatriptan Anaphylaxis Medications: Outpatient Encounter Prescriptions as of 01/13/2018 Medication Sig Dispense Refill [DISCONTINUED] ALPRAZolam (XANAX PO) Take by mouth. Patient not sure of dose, has not taken in two weeks. B Aolhogc-W-Btoxd Acid (RENAL-KIT) 0.8 MG TABS Take 1 [...] is administered at an infusion clinic in [facility]]. 180.04 mL furosemide (LASIX) 40 mg [...] REPORT: PATIENT NAME : Aurea Perez EQUIPMENT: SonSureDone M-Turbo with 10-5 mHertz probe. INDICATIONS: S/P [...]
--- OUTSIDE RECORDS SUMMARY | ~2019-05-10 | XMS | Encounter Summary ---
Demographics + + + | Address | [address] | | | [place] [address] | + + + | Home Phone [...] + | Author | [facility] | | | and Laloana | + + + | Organization | [facility] | | | and [...] [place] | | | | | [address] | | + + + + + Care Team Providers + +------+ + | Care Vice President Biostatistics Name | Role | Phone | + +------+ + PCP | Unavailable | + +------+ + Encounter Details +--------+ + + + + | Date | Type | Department | Care Team | Description | +--------+ + + + + | 12/23/ | Orders Only | [facility] | Provider, | | | 2019 | | SYSTEM GENERIC OP | MD [address] | | | | | CONVERSION [address] | [address] | | | | | [address] [place], [place] | [place] [address] | | | | | [address] | | | | | | [phone] | | | +--------+ + + + [...]
--- OUTSIDE RECORDS SUMMARY | ~2019-05-10 | XMS | Encounter Summary ---
Demographics + + + | Address | [address] | | | [place] [address] | + + + | Home Phone [...] Author | [facility] | | | and [place] | + + + | Organization | [facility] | | | and [place] | + + + | Address | Unknown | + + + | Phone | Unavailable | + + + Support + + + + + | Name | Relationship | Address | Phone | + + + + + | rEik Brian | ECON | Unknown | | + + + + + | Beverly Berrying | ECON | [place] | | | | | [address] | | + + + + + Care Team Providers + +------+ + | Care Motor Driver Name | Role | Phone | [...] | | [address] | [place] | | | | | [place], [place] | [place], [place] | | | | | [address] | [address] | | | | | [phone] | | | +--------+ + + + [...]
--- OUTSIDE RECORDS SUMMARY | ~2019-05-10 | XMS | Encounter Summary ---
Demographics + + + | Address | [address] | | | [place] [address] | + + + | Home Phone [...] + | Author | [facility] | | | and [place]aloana | + + + | Organization | [facility] | | | and [...] [place] | | | | | [address] | | + + + + + Care Team Providers + +------+ + | Care Automobile Repair Service Estimator Name | Role | Phone | + [...] | | [address] | [place] | | | | | [place], [place] | [place], [place] | | | | | [address] | [address] | | | | | [phone] | | | +--------+---------+ + + + [...] meeting today with Mrs. Perez, the Renal CERTIFIED MEDICAL DOSIMETRIST, Renal RD and myself. Cindy alejandro Aurea checked out of the [facility] after 36 hours, on 07/23/18. Elena lindo, she violated the rules about staying on campus 28/12. Additionally, she has not taken her meds from her description for the last 48 hours. She did attend dialysis and is commuti ng by bus from [place] where she is staying with her sister. [...] easier to attend her treatments from the [address] she refu ses to move to [place]. I strongly recommended to her to get back on all of her meds. These were refilled today at [facility] where she was previously. Arrangements were made with the [employer] fall CERTIFIED MEDICAL DOSIMETRIST, Ashtyn Wan To obtain her transportation to and from her treatments. Juiceshahram macias appeared lucid, and was A & O 3 during this discussion. Will recheck her in one wee k on HD. [facility]. : [facility] documented in thi s encounter Plan of [...]
--- OUTSIDE RECORDS SUMMARY | ~2019-05-10 | XMS | Encounter Summary ---
Demographics + + + | Address | [address] | | | [place] [address] | + + + | Home Phone | | + + + | Preferred Language | Unknown | + + + | Marital Status | | + + + | Moravian Affiliation | 1038 | + + + | Race | Unknown | + + + | Ethnic Group | Unknown | + + + Author + + + | Author | [facility] | | | and Laloana | + + + | Organization | [facility] [...] [place] | | | | | [address] | | + + + + + Care Team Providers + +------+ + | Care Radiographer Technologist Name | Role | Phone | + +------+ + PCP | Unavailable | + +------+ + Encounter Details +--------+ + + + + | Date | Type | Department | Care Team | Description | +--------+ + + + + | 12/30/ | Hospital | JOV IP CONVERSION | Tom, | | | 2000 - | Encounter | DEPARTMENT 132[address] | Fauzia Mcgovern MD | | | | | [place], | | | | 01/01/ | | [place] [address] | | | | 2000 | | [phone] | | | +--------+ + + + [...]
--- OUTSIDE RECORDS SUMMARY | ~2019-05-10 | XMS | Encounter Summary ---
Demographics + + + | Address | [address] | | | [place] [address] | + + + | Home Phone | | + + + | Preferred Language | Unknown | + + + | Marital Status | | + + + | Yazidism Affiliation | 1038 | + + + | Race | Unknown | + + + | Ethnic Group | Unknown | + + + Author + + + | Author | [facility] | | | and [place] | + + + | Organization | [facility] | | | and [...] [place] | | | | | [address] | | + + + + + Care Team Providers + +------+ + | Care Appraiser Oil And Water Name | Role | Phone | + [...] + + + + | 04/10/ | Telephone | [facility] | Jhoana Barreto | Dialysis | | 2019 | | NEPHROLOGY [address] | M, DO [address] | (Asymptomatic) | | | | [address] | [place] | | | | | [place], [place] | [place] | | | | | [address] | [address] | | | | | [phone] | | | +--------+ + + + [...]
--- OUTSIDE RECORDS SUMMARY | ~2019-05-10 | XMS | Encounter Summary ---
Demographics + + + | Address | [address] | | | [place] [address] | + + + | Home Phone [...] | Author | [facility] | | | and [place] | + + + | Organization | [facility] | | | and [...] [place] | | | | | [address] | | + + + + + Care Team Providers + +------+ + | Care Fishing Rod Trimmer Name | Role | Phone | + +------+ + PCP | Unavailable | + +------+ + Reason for Visit + + + | Reason | Comments | + + + | Medication Refill | | + + + Encounter Details +--------+--------+ + + + | Date | Type | Department | Care Team | Description | +--------+--------+ + + + | 01/23/ | Refill | [facility] [place] | Jhoana Barreto | Medication Refill | | 2017 | | NEPHROLOGY [address] | M, DO [address] | | | | | [address] | [place] | | | | | [place], [place] | [place], [place] | | | | | [address] | [address] | | | | | [phone] | | | +--------+--------+ + + + [...]
--- OUTSIDE RECORDS SUMMARY | ~2019-05-10 | XMS | Encounter Summary ---
Demographics + + + | Address | [address] | | | [place] [address] | + + + | Home Phone [...] | Author | [facility] | | | and Laloana | + + + | Organization | [facility] | | | and [...] + | Beverly Perez | ECON | [place] | | | | | [address] | | + + + + + Care Team Providers + +------+ + | Care Endodontist Name | Role | Phone | + +------+ + | Sia Zheng | PCP | | + +------+ + Encounter Details +--------+ + + + + | Date | Type | Department | Care Team | Description | +--------+ + + + + | 04/07/ | Orders Only | [facility] [place] | Jhonaa Barreto | ESRD needing | | 2019 | | NEPHROLOGY [address] | M, DO [address] | dialysis (HCC) | | | | [address] | [place] | (Primary Dx) | | | | [place], [place] | [place], [place] | | | | | [address] | [address] | | | | | [phone] | | | +--------+ + + + [...] of this encounter Plan of Treatment + +------+--------+ + + | Name | Type | Priori | Associated Diagnoses | Order Schedule | | | | ty | | | + +------+--------+ + + | Hepatitis B Core Ab, | Lab | Routin | ESRD needing | 1 Occurrences | | Total | | e | dialysis (HCC) | starting 04/07/2019 | | | | | | until 04/07/2020 | + +------+--------+ + + | Hepatitis B Surface | Lab | Routin | ESRD needing | 1 Occurrences | | Ab | | e | dialysis (HCC) | starting 04/07/2019 | | | | | | until 04/07/2020 | + +------+--------+ + + | Hepatitis C Ab | Lab | Routin | ESRD needing | 1 Occurrences | | | | e | dialysis (HCC) | starting 04/07/2019 | | | | | | until 04/07/2020 | + +------+--------+ + + | Hepatitis B Surface | Lab | Routin | ESRD needing | 1 Occurrences | | Ag | | e | dialysis (HCC) | starting 04/07/2019 | | | | | | until 04/07/2020 | + +------+--------+ + + documented as [...]
--- OUTSIDE RECORDS SUMMARY | ~2019-05-10 | XMS | Clinical Summary ---
Demographics + + + | Address | [address] | | | [place] [address] | + + + | Home Phone | | + + + | Preferred Language | Unknown | + + + | Marital Status | | + + + | Samaritan Affiliation | 1038 | + + + | Race | Unknown | + + + | Ethnic Group | Unknown | + + + Author + + + | Author | [facility] (Historical as of | | | 01-21-19) | + + + | Organization | [facility] (Historical as of | | | 01-21-19) [...] [place] | | | | | [address] | | + + + + + Care Team Providers + +------+ + | Care Emt I/99 Name | Role | Phone | + [...] | + + + +---------+------+------+-------+ | B Pteevym-F-Pnefq | Take 1 tablet by | | [...] | | | Activ | | (PROCRIT) [id number] | into the skin 3 | | [...] +------+-------+ + | MEDICARE | MEDICA | [id number] | | | [address] | | | RE | | | | [place] [address] | | | IP-OP | | | | | + +--------+ +------+-------+ + | MEDICAID | MEDICA | [id number] | | | [address] | | | ID | | | | [place] | | | [place] | | | | [address] | + +--------+ +------+-------+ + + +--------+ [...] | | al/Fam | | 1980 | [phone] [place] | | | [place]ley | | | [address] | [address] | + +--------+ +--------+ + +
--- OUTSIDE RECORDS SUMMARY | ~2019-05-10 | XMS | Encounter Summary ---
Demographics + + + | Address | [address] | | | [place] [address] | + + + | Home Phone | | + + + | Preferred Language | Unknown | + + + | Marital Status | | + + + | Rastafari Affiliation | 1038 | + + + | Race | Unknown | + + + | Ethnic Group | Unknown | + + + Author + + + | Author | [facility] | | | and [place] | + + + | Organization | [facility] | | | and [place] [...] [place] | | | | | [address] | | + + + + + Care Team Providers + +------+ + | Care Woodworking Craftsman Name | Role | Phone | + +------+ + PCP | Unavailable | + +------+ + Encounter Details +--------+ + + + + | Date | Type | Department | Care Team | Description | +--------+ + + + + | 04/26/ | Hospital | [facility] | Jose Juan Turner, | | | 1996 - | Encounter | [facility] | [place] [address] | | | | | EMERGENCY [address] | [address] | | | 04/27/ | | [place], [place] | [place] [address] | | | 1997 | | [address] | [phone] | | | | | [phone] | | | | | | | Clarice Chan P | | +--------+ + + + + [...]
--- OUTSIDE RECORDS SUMMARY | ~2019-05-10 | XMS | Encounter Summary ---
Demographics + + + | Address | [address] | | | [place] [address] | + + + | Home Phone | | + + + | Preferred Language | Unknown | + + + | Marital Status | | + + + | Congregational Affiliation | 1038 | + + + | Race | Unknown | + + + | Ethnic Group | Unknown | + + + Author + + + | Author | [facility] | | | and [place] | + + + | Organization | [facility] | | | [...] [place] | | | | | [address] | | + + + + + Care Team Providers + +------+ + | Care Video Editor Name | Role | Phone | + [...] Liborio Gomez. | | | | | [phone] | [place] [address] | | +--------+ + + + + [...] for this | | | e | 12:30 PM | | procedure are in the | | | | PST | | results section. | + +--------+ + + + documented in this encounter Results XR Chest 1 Vw (07/08/2018 12:30 PM PST) + + | Specimen | [...]
--- OUTSIDE RECORDS SUMMARY | ~2019-05-10 | XMS | Encounter Summary ---
Demographics + + + | Address | [address] | | | [place] [address] | + + + | Home Phone | | + + + | Preferred Language | Unknown | + + + | Marital Status | | + + + | Cheondoism Affiliation | 1038 | + + + | Race | Unknown | + + + | Ethnic Group | Unknown | + + + Author + + + | Author | [facility] | | | and [place] | + + + | Organization | [facility] | [...] + | Beverly Perez | ECON | [place] | | | | | [address] | | + + + + + Care Team Providers + +------+ + | Care Masseur/Masseuse Name | Role | Phone | + [...] | | | | disease) on | [place] | [place], [place] | | | | | dialysis | [address] | | | | | (HCC) | [place] | [place] | | | | | Procedures | [address] | [address] Phone: | | | | | [place] ESRD | Phone: | [phone] | | | | | RELATED SVC | [phone] | Fax: | | | | | MONTHLY | Fax: | [phone] | | | | | 20&/> YR OLD | [phone] | | | | | | 4/> [...] W | M, DO [address] | ([facility]) (Primary Dx) | | | | [address] | [address] | | | | | [place], [place] | [place] | | | | | [address] | [address] | | | | | [phone] | | | +--------+ + + + [...]
--- OUTSIDE RECORDS SUMMARY | ~2019-05-10 | XMS | Encounter Summary ---
Demographics + + + | Address | [address] | | | [place] [address] | + + + | Home Phone [...] | [facility] | | | and [place] | + + + | Organization | [facility] | | [...] [place] | | | | | [address] | | + + + + + Care Team Providers + +------+ + | Care Continuity Reader Name | Role | Phone | + +------+ + PCP | Unavailable | + +------+ + Encounter Details +--------+ + + + + | Date | Type | Department | Care Team | Description | +--------+ + + + + | 12/31/ | Episode | [facility] | Soledad Fuentes RN | | | 2018 | Changes | SURGERY [address] | | | | | | [place], [place] | | | | | | [address] | | | | | | [phone] | | | +--------+ + + + [...]
--- OUTSIDE RECORDS SUMMARY | ~2019-05-10 | XMS | Encounter Summary ---
Demographics + + + | Address | [address] | | | [place] [address] | + + + | Home Phone [...] | [facility] | | | and [place] | + + + | Organization | [facility] | | | and [place] [...] [place] | | | | | [address] | | + + + + + Care Team Providers + +------+ + | Care Fiberglass Laminator Name | Role | Phone | + +------+ + PCP | Unavailable | + +------+ + Encounter Details +--------+ + + + + | Date | Type | Department | Care Team | Description | +--------+ + + + + | 09/15/ | Hospital | [facility] | Jhoana Barreto | Bronchitis; SOB | | 2019 | Encounter | MED CTR XRAY [address] | M, DO [address] | (shortness of | | | | [place] | [place] | breath) | | | | [place] [address] | [place], [place] | | | | | [phone] | [address] | | | | | | | [...] + + +---------+ + + | B Ojygonx-Z-Bpkyw | Take 1 Tab by mouth. | [...]
--- OUTSIDE RECORDS SUMMARY | ~2019-05-10 | XMS | Encounter Summary ---
Demographics + + + | Address | [address] | | | [place] [address] | + + + | Home Phone | | + + + | Preferred Language | Unknown | + + + | Marital Status | | + + + | Orthodox Affiliation | 1038 | + + + | Race | Unknown | + + + | Ethnic Group | Unknown | + + + Author + + + | Author | [facility] | | | and [place] | + + + | Organization | [facility] | | | and [place] [...] + | Beverly Perez | ECON | [place] | | | | | [address] | | + + + + + Care Team Providers + +------+ + | Care Piler Name | Role | Phone | + [...] | [place], | | | | | ESRD (end | Petra W, | Jhoana Flowers DO | | | | | stage renal | MD [address] | | | | | disease) on | [place] | [place] | | | | | dialysis | [address] [place] [address] [place] | | | | | ([facility]) | [place] | [place] | | | | | Procedures | [address] | [address] Phone: | | | | | [place] ESRD | Phone: | [phone] | | | | | RELATED SVC | [phone] | Fax: | | | | | MONTHLY | Fax: | [phone] | | | | | 20&/> YR OLD | [phone] | | | | | | 4/> VISITS | | | +--------+--------+ + + + + Encounter Details +--------+ + + + + | Date | Type | Department | Care Team | Description | +--------+ + + + + | 05/16/ | Off-Site | [facility] [place] | Jhoana Barreto | End stage renal | | 2018 | Visit | NEPHROLOGY [address] | M, DO [address] | disease (HCC) | | | | [address] | [place] | (Primary Dx) | | | | [place], [place] | [place] | | | | | [address] | [address] | | | | | [phone] | | | +--------+ + + + [...] + + + | Blood Pressure | 150/80 | 05/16/2018 5:24 PM | | | | | PST | | + + + + + | Pulse | - | - | | + + + + + | Temperature | 35.6 C (96 F) | 05/16/2018 5:24 PM | | | | | PST [...] encounter Progress Notes Jhoana Barreto DO - 05/16/2018 10:00 AM PST Subjective: DIALYSIS NOTE Patient ID: Aurea Perez is a 38 y.o. female. 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 She does intimately skip a treatment at has been coming consistently this month. He states that she is staying with her mother. Denies shortness o f breath or anorexia. Not completely clear to me if she is off of recreational drugs? Outpatient Prescriptions Marked as Taking for the 05/16/18 encounter (Off-Site Visit) with Jhoana Barreto DO Medication Sig Dispense Refill B Keptwyq-F-Ffveo Acid (RENAL-KIT) 0.8 MG TABS Take 1 [...] is administered at an infusion clinic in [facility]]. 180.04 mL furosemide (LASIX) 40 mg tablet Take 2 tablets by mouth Daily. 60 tablet 5 lisinopril (PRINIVIL, ZESTRIL) 20 mg tablet take 1 tablet by mouth once daily 30 tablet 11 sucroferric oxyhydroxide (VELPHORO) 500 mg chewable tablet Take 1 tablet by mouth 3 fahad es daily (with meals). 90 tablet 3 Allergies Allergen Reactions Codeine Anaphylaxis Sumatriptan Anaphylaxis Review of Systems Objective: BP 150/80 | Temp 35.6 C (96 F) EDW 47 kg Physical Exam Heart: Regular rate and rhythm with no S3, S4, murmur or rub. Lungs: CTA bilaterally. No rales or wheezes. Abdomen: soft, obese, nontender, NABS. Extremities: no edema, clubbing, cyanosis, or foot ulcers. LAB: BUN 60, Cr 5.15, K+ 5.1, HCO3 19, albumin 4.1, Ca++ 8.9, P04 4.5, last PTH 242, Hb 12 .6, TSat = not listed, spKT/V = 1.50 . Assessment: 1. ESRD-- for now, she appears stable on her current Rx, thrice weekly. I emphasized del Villar that it is important that she obtain 3 full Treatments per week . 2. Hypertension-- fairly stable on her current regimen, from review of her EMR in Mai . 3. 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 This is been on hold un til Hb <11.0 g/dl. Need to recheck her iron profile. 4. CKD/MBD-- h her phosphorus control is stable and the PTH is stable without calcitriol. 5. Nutrition--her appetite has greatly improved. 6. HUS/TTP-- clinically, in remission. 7. Transplantation--primary barrier to success may be her unstable home environment and la ck of social support. 8. Remote history of substance abuse-- clinically, I am not completely unclear if she is in abstinence? Plan: 1. I encouraged Aurea that she looks better than she did 6 months ago. Her adequacy and nutrition appear improved. 2. Monthly lab was reviewed with Aurea. 3. Will recheck her in one month with a vitamin D level, PTH, iron profile and adequacy. Harry Barreto DO CC: [place] Edwar Gallagher MD, FACS Nadir Lew MD, [...]
--- OUTSIDE RECORDS SUMMARY | ~2019-05-10 | XMS | Encounter Summary ---
Demographics + + + | Address | [address] | | | [place] [address] | + + + | Home Phone [...] + + | Author | [facility] | | | and [place] | + + + | Organization | [facility] | | | and [...] [place] | | | | | [address] | | + + + + + Care Team Providers + +------+ + | Care Business Loan Processor Name | Role | Phone | + [...] [address]. [address] | | | | | [phone] | [place] [address] | | +--------+ + + + + [...]
--- OUTSIDE RECORDS SUMMARY | ~2019-05-10 | XMS | Encounter Summary ---
Demographics + + + | Address | [address] | | | [place] [address] | + + + | Home Phone [...] [place] | | | | | [address] | | + + + + + Care Team Providers + +------+ + | Care Tooth Cutter Spur Name | Role | Phone | + +------+ + PCP | Unavailable | + +------+ + Encounter Details +--------+ + + + + | Date | Type | Department | Care Team | Description | +--------+ + + + + | 08/03/ | Abstract | [facility] [place] | RoyergeorgeJhoana | | | 2017 | | NEPHROLOGY [address] | M, DO [address] | | | | | [address] | [place] | | | | | [place], [place] | [place], [place] | | | | | [address] | [address] | | | | | [phone] | | | +--------+ + + + [...] | EXTERNAL LAB: SHAKIRA | Routin | 08/02/2017 | | Results for this | | | e | | | procedure are in the | | | | | | results section. | + +--------+ + + + | EXTERNAL LAB: | Routin | 08/02/2017 | | Results for this | | GLUCOSE | e | | | procedure are in the | | | | | | results section. | + +--------+ + + + | EXTERNAL LAB: | Routin | 08/02/2017 | | Results for this | | ALBUMIN | e | | | procedure are in the | | | | | | results section. | + +--------+ + + + | EXTERNAL LAB: | Routin | 08/02/2017 | | Results for this | | PHOSPHORUS | e | | | procedure are in the | | | | | | results section. | + +--------+ + + + | EXTERNAL LAB: | Routin | 08/02/2017 | | Results for this | | CALCIUM | e | | | procedure are in the | | | | | | results section. | + +--------+ + + + | EXTERNAL LAB: CARBON | Routin | 08/02/2017 | | Results for this | | DIOXIDE | e | | | procedure are in the | | | | | | results section. | + +--------+ + + + | EXTERNAL LAB: | Routin | 08/02/2017 | | Results for this | | CHLORIDE | e | | | procedure are in the | | | | | | results section. | + +--------+ + + + | EXTERNAL LAB: | Routin | 08/02/2017 | | Results for this | | POTASSIUM | e | | | procedure are in the | | | | | | results section. | + +--------+ + + + | EXTERNAL LAB: SODIUM | Routin | 08/02/2017 | | Results for this | | | e | | | procedure are in the | | | | | | results section. | + +--------+ + + + | EXTERNAL LAB: CBC | Routin | 08/02/2017 | | Results for this | | | e | | | procedure are in the | | | | | | results section. | + +--------+ + + + | EXTERNAL LAB: EGFR | Routin | 08/02/2017 | | Results for this | | | e | | | procedure are in the | | | | | | results section. | + +--------+ + + + | EXTERNAL LAB: | Routin | 08/02/2017 | | Results for this | | CREATININE | e | | | procedure are in the | | | | | | results section. | + +--------+ + + + documented in this encounter Results External Lab: CBC (08/02/2017) + + + + + + | Component | Value | Ref Range | Performed | Pathologist | | | | | At | Signature | + + + + + + | WBC, | 6.0 | 4 - 11 | EXTERNAL | | | External | | | LAB | | + + + + + + | HGB, | 8.7 (A) | 12 - 16 | EXTERNAL | | | External | | | LAB | | + + + + + + | HCT, | 25.6 (A) | 35 - 45 | EXTERNAL | | | External | | | LAB | | + + + + + + | PLT, | 223 | 140 - 440 | EXTERNAL | | | External | | | LAB | | + + + + + + | RBC, | 2.92 (A) | 3.8 - 5.1 | EXTERNAL | | | External | | | LAB | | + + + + + + | MCV, | 88 | 81 - 99 | EXTERNAL | | | External | | | LAB | | + + + + + + | RDW, | 17.2 (A) | 10.5 - 15 | EXTERNAL | | | External | | | LAB | | + + + + + + + +---------+ + + | Performing | Address | City/State/Zipcode | Phone Number | | Organization | | | | + +---------+ + + | EXTERNAL LAB | | | | + +---------+ + + External Lab: BUN (08/02/2017) + +--------+ + + + | Component [...] + +---------+ + + External Lab: Glucose (08/02/2017) + +-------+ + + + | Component | Value | Ref Range | Performed | Pathologist | | | | | At | Signature | + +-------+ + + + | Glucose, | 93 | 70 - 100 | EXTERNAL | | | External | | | LAB | | + +-------+ + + + + +---------+ + + | Performing | Address | City/State/Zipcode | Phone Number | | Organization | | | | + +---------+ + + | EXTERNAL LAB | | | | + +---------+ + + External Lab: Albumin (08/02/2017) + +-------+ + + + | Component | Value | Ref Range | Performed | Pathologist | | | | | At | Signature | + +-------+ + + + | Albumin, | 4.1 | | EXTERNAL | | | External | | | LAB | | + +-------+ + + + + +---------+ + + | Performing | Address | City/State/Zipcode | Phone Number | | Organization | | | | + +---------+ + + | EXTERNAL LAB | | | | + +---------+ + + External Lab: Phosphorus (08/02/2017) + +---------+ + + + | Component [...] + +---------+ + + External Lab: Calcium (08/02/2017) + +-------+ + + + | Component [...] +---------+ + + External Lab: Carbon Dioxide (08/02/2017) + +-------+ + + + | Component | Value | Ref Range | Performed | Pathologist | | | | | At | Signature | + +-------+ + + + | Carbon | 27 | 23 - 32 | EXTERNAL | [...] + +---------+ + + External Lab: Chloride (08/02/2017) + +-------+ + + + | Component | Value | Ref Range | Performed | Pathologist | | | | | At | Signature | + +-------+ + + + | Chloride, | 95 | 95 - 112 | EXTERNAL | | | External | | | LAB | | + +-------+ + + + + +---------+ + + | Performing | Address | City/State/Zipcode | Phone Number | | Organization | | | | + +---------+ + + | EXTERNAL LAB | | | | + +---------+ + + External Lab: Potassium (08/02/2017) + +---------+ + + + | Component | Value | Ref Range | Performed | Pathologist | | | | | At | Signature | + +---------+ + + + | Potassium, | 3.0 (A) | 3.5 - 5.1 | EXTERNAL | | | External | | | LAB | | + +---------+ + + + + +---------+ + + | Performing | Address | City/State/Zipcode | Phone Number | | Organization | | | | + +---------+ + + | EXTERNAL LAB | | | | + +---------+ + + External Lab: Sodium (08/02/2017) + +-------+ + + + | Component [...] + +---------+ + + External Lab: eGFR (08/02/2017) + +--------+ + + + | Component | Value | Ref Range | Performed | Pathologist | | | | | At | Signature | + +--------+ + + + | eGFR, | 19 (A) | 60 | EXTERNAL | | [...] + +---------+ + + External Lab: Creatinine (08/02/2017) + +-------+ + + + | Component | Value | Ref Range | Performed | Pathologist | | | | | At | Signature | + +-------+ + + + | Creatinine, | 2.75 | | EXTERNAL | | | External [...]
--- OUTSIDE RECORDS SUMMARY | ~2019-05-10 | XMS | Encounter Summary ---
Demographics + + + | Address | [address] | | | [place] [address] | + + + | Home Phone | | + + + | Preferred Language | Unknown | + + + | Marital Status | | + + + | Rastafarian Affiliation | 1038 | + + + | Race | Unknown | + + + | Ethnic Group | Unknown | + + + Author + + + | Author | [facility] | | | and [place] | + + + | Organization | [facility] | | | and [place] [...] + | [place] Perez | ECON | [place] | | | | | [id number] | | + + + + + Care Team Providers + +------+ + | Care Abrading Machine Tender Name | Role | Phone | [...] | | | | | injury) | [place] | [place] | | | | | ([facility]) | [address] [place] | | | | | Procedures | [place], [place] | [place] | | | | | [place] OFFICE | [address] | [address] Phone: | | | | | OUTPATIENT | Phone: | [phone] | | | | | VISIT 25 | [phone] | Fax: | | | | | MINUTES | Fax: | [phone] | | | | | | [phone] | | +--------+--------+ + + + + Encounter Details +--------+ + + + + | Date | Type | Department | Care Team | Description | +--------+ + + + + | 04/26/ | Procedure | [facility] [place] | Jhoana Barreto | End stage renal | | 2018 | visit | NEPHROLOGY [address] | M, DO [address] | disease (HCC) | | | | [address] | [place] | (Primary Dx); | | | | [place], [place] | [place] | Essential | | | | [address] | [address] | hypertension, | | | | [phone] | | malignant; Anemia in | | | | | | end-stage renal | | | | | | disease (HCC) | +--------+ + + + + [...] encounter Progress Notes Jhoana Barreto DO - 04/26/2018 4:00 PM PSTPROCEDURE NOTE: Proposed Procedures: 1. right IJ Equistream catheter removal. Actual Procedures: 1. Same. Postoperative Diagnosis: 1. functioning AVF. Surgeons: 1. Mary Lou Anesthesia: 1% Xylocaine Estimated Blood Loss: Minimal. Drains and Tubes: None. Findings, Complications, and Other Information: Informed consent was obtained from the pat ient. Her new kol[place] AVF works well and the Equistream catheter is no longer needed. A timeou t was taken by the patient and the team. The patient was prepped and draped in a sterile fa shion with chlorhexidine. The tunnel of the catheter was then infiltrated 1% Xylocaine, (Joy mansoor is out of supply). Then, utilizing blunt dissection, and some limited sharp dissectio n at the very end, the cuff and catheter were dissected free and the catheter was removed in tact. The tunnel was then irrigated with a copious quantity of sterile saline. Hemostasis was adequate. Sterile 4 x 4's, bacitracin, and six-inch Medipore tape were applied to the site. There were no complications. She tolerated the procedure well. She was instructed to remove the dressing in 24 hours. She was instructed not to shower for 24 hours. She was instructed to call if any problems. She was discharged to home in stable condition. : [facility] [place], [place]. [facility] [place] documented in thi s encounter Plan of Treatment Not on filedocumented as of this encounter Visit Diagnoses + + | Diagnosis | + + | End stage renal disease (HCC) - Primary End stage renal disease | + + | Essential hypertension, malignant | + + | 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 renal disease (HCC) Anemia in chronic kidney disease | + + documented in this encounter Additional Health Concerns + + + + | Infection | Noted Time | Resolved Time | + + + + | Methicillin-resistant Staphylococcus aureus | 03/23/2018 12:00 AM | | | | PDT | | + + + + documented as of this encounter"
--- OUTSIDE RECORDS SUMMARY | ~2019-05-10 | XMS | Encounter Summary ---
Demographics + + + | Address | [address] | | | [place] [address] | + + + | Home Phone [...] | Author | [facility] | | | and [place] | + + + | Organization | [facility] | | | and [place] [...] [place] | | | | | [address] | | + + + + + Care Team Providers + +------+ + | Care Promotion Producer Name | Role | Phone | + [...] + + | 08/23/ | Telephone | [facility] | Jhoana Barreto | Lab Results | | 2017 | | NEPHROLOGY [address] | M, DO [address] | | | | | [address] | [place] | | | | | [place], [place] | [place] | | | | | [address] | [address] | | | | | [phone] | | | +--------+ + + + [...]
--- OUTSIDE RECORDS SUMMARY | ~2019-05-10 | XMS | Clinical Summary ---
Demographics + + + | Address | [address] | | | [place] [address] | + + + | Home Phone | | + + + | Preferred Language | Unknown | + + + | Marital Status | Single | + + + | Samaritan Affiliation | Unknown | + + + [...] [place], | | | | | [place] [address] | | + + + + + Care Team Providers + +------+ + | Care Field Support Technician Name | Role | Phone | + +------+ + | No Pcp Per Patient | PCP | Unavailable | + +------+ + Source Comments KATTY is fully live on both [facility] and [facility] Allergies Not on File Medications Not on [...] | | | + +--------+ +--------+-------+---------+--------+ | CYTOLOGIST MEDICAID | CYTOLOGIST | xxxxxxxx | 06/07/19 | | | [...] | 1980 | [phone] | [place] [address] | | | [place]ley | | | 3 (Home) | | + +--------+ +--------+ + +"
--- OUTSIDE RECORDS SUMMARY | ~2019-05-10 | XMS | Encounter Summary ---
Demographics + + + | Address | [address] | | | [place] [address] | + + + | Home Phone [...] + | Author | [facility] | | | and [place] | + + + | Organization | [facility] | | | and [...] [place] | | | | | [address] | | + + + + + Care Team Providers + +------+ + | Care Forestry Technical Officer Name | Role | Phone | [...] Liborio Gomez. | | | | | [phone] | [place] [address] | | +--------+ + + + + [...]
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
--- OUTSIDE RECORDS SUMMARY | ~2019-05-10 | XMS | Encounter Summary ---
Demographics + + + | Address | [address] | | | [place] [address] | + + + | Home Phone | | + + + | Preferred Language | Unknown | + + + | Marital Status | | + + + | Restorationist Affiliation | [id number] | + + + | Race | Unknown | + + + | Ethnic Group | Unknown | + + + Author + + + | Author | [facility] | | | and Laloana | + + + | Organization | [facility] [...] [place] | | | | | [id number] | | + + + + + Care Team Providers + +------+ + | Care Voice Engineer Name | Role | Phone | + +------+ + PCP | Unavailable | + +------+ + Reason for Visit + + + | Reason | Comments | + + + | Chest Pain | | + + + Auth/Cert +--------+--------+ + + + + | Status | Reason | Specialty | Diagnoses / | Referred By | Referred To | | | | | Procedures | Contact | Contact | +--------+--------+ + + + + | | | | Diagnoses | | | | | | | Acute | | | | | | | hyponatremia | | | | | | | | | | | | | | Methamphetam | | | | | | | ine abuse | | | | | | | (HCC) | | | | | | | Elevated | | | | | | | troponin I | | | | | | | level | | | | | | | Marijuana | | | | | | | use Acute | | | | | | | renal | | | | | | | failure, | | | | | | | unspecified | | | | | | | acute renal | | | | | | | failure type | | | | | | | (HCC) | | | | | | | Chest pain | | | | | | | in adult | | | | | | | | | | +--------+--------+ + + + + Encounter Details +--------+ + + + + | Date | Type | Department | Care Team | Description | +--------+ + + + + | 07/04/ | Hospital | [facility] | Emanuel Guzmán, | Chest pain in adult | | 2018 - | Encounter | [facility] [address] | (Primary Dx); | | | | [place], | [place], [place] | Elevated troponin I | | 07/06/ | | [place] [address] | [id number] | level; Acute renal | | 2018 | | [phone] | | failure, unspecified | | | | | Antonio Cobb | acute renal failure | | | | | DO Wendy [address] | type (HCC); Acute | | | | | [place], [place] | hyponatremia; | | | | | [address] | Methamphetamine | | | | | | abuse; Marijuana use | | | | | Johana Brower, | | | | | | [address] | | | | | | [place] [address], | | | | | | [place] [address] | | | | | | [phone] | | | | | | | [...] + + + | Blood Pressure | 127/85 | 07/06/2017 8:45 PM | | | | | PST | | + + + + + | Pulse | 88 | 07/06/2017 8:45 PM | | | | | PST | | + + + + + | Temperature | 36.4 C (97.5 F) | 07/06/2017 8:15 PM | | | | | PST | | + + + + + | Respiratory Rate | 16 | 07/06/2017 8:45 PM | | | | | PST | | + + + + + | Oxygen Saturation | 100% | 07/06/2017 8:45 PM | | | | | PST | | + + + + + | Inhaled Oxygen | - | - | | | Concentration | | | | + + + + + | Weight | 52.2 kg (115 lb) | 07/04/2017 1:18 PM | | | | | PST | | + + + + + | Height | 167.6 cm (5' 6") | 07/04/2017 1:18 PM | | | | | PST | | + + + + + | Body Mass Index | 18.56 | 07/04/2017 1:18 PM | | | | | PST | | + + + + + documented in this encounter Discharge Summaries Johana Brower MD - 07/06/2017 6:03 PM PSTFormatting of this note might be different fro m the original. DISCHARGE SUMMARY Pt. Name/Age/: Aurea Rushing 37 y.o. 1980 Date of Admission: 07/04/2017 Date of Discharge: 07/06/2017 Admitting Physician: Antonio Lal* PCP: Fauzia Santos Discharging Physician: Johana Brower Consultants: Hospitalist Primary service: Dr Antonio Cobb (obstretrician ) Primary Discharge Dx: 1. Acute hypoxic respiratory failure from flash pulmonary edema. Intubated on 07/06/17 . Raghav t setting: Ac, RR-16/min, TV-420, Fi02-50%, PEEP- 5. 2. HTN 3. Acute kidney injury 4. Anemia 5. Thrombocytopenia 6. Active meth use 7. 20 weeks Pertinent Diagnostic Info/Data: CXR- pulmonary edema Reason for Admission (Brief): She is a 37 y/o female who is 20 weeks , active methamphetamine abuse presented on 07/04 with chest pain. Hospital Course, including Complications: Troponin peaked to 0.23; down to 0.11 this am. EKG- no ischemic changes. Echo - EF -50%, gr jim 1 diastolic dysfunction. Continued to have increased anxiety and shortness of breath dur ing hospital course. This afternoon, she went in acute respiratory distress, Desaturated to 61% on Ra, severely agitated not allowing to put the mask on. SBP 220s. Had pink frothy sput um and coarse crackles b/l. Received ativan 1mg IV x2 and lasix 40mg IV x1. Remained to be h ypoxic on non re-breather and agitated. She was intubated and placed on mechanical ventilati on. Propofol and fentanyl for sedation. On labetalol 20 mg IV PRN 1. Acute hypoxic respiratory failure probably from flash pulmonary edema - Requiring intubation/mechanical ventilation -EKG- sinus tachycardia - BNP elevated to 1300 - CXR- concerning for pulmonary edema - Culture from ET tube - received another dose of lasix 40 mg - labetalol 20mg IV 2h PRN. Okay with hydralazine and labetalolol per Dr. Cobb - strict I and O and daily weight - Dr. Landin (cardiology) consulted - Transfer to [facility] 2. Chest pain with mildly elevated troponin on adx - troponin peaked to 0.23 -->.011 this am - repeat troponin and EKG - Echo - EF-50%, grade 1 diastolic dysfunction, mild-mod MR/AR 3. Acute kidney injury vs AUNG on CKD - discontinued IVF and started on IV diuresis - strict I and O - renally dose meds 4. Normocytic anemia/thrombocytopenia 5. 20 weeks . High risk - Discussed with Dr. Cobb (torque tester). Given her high risk and acute respiratory failure from flash pulmonary edema requiring intubation, she would need higher level of car e. I spoke with Dr. Romero (crankshaft straightener) from [facility] who accepted her and now being transferred to [facility]. Updated her grandfather ([phone]); agreeable with the plan. Medications Reconciled upon Discharge are: Discharge Medications New Medications Details labetalol 5 mg/mL injection Inject 4 mLs into the vein every 2 hours as needed (for SBP>150). aka: TRANDATE LORazepam 1 mg tablet Take 1-2 tablets by mouth every 6 hours as needed for Anxiety. aka: ATIVAN pantoprazole 4 mg/mL injection Inject 10 mLs into the vein Daily. aka: PROTONIX Start: 07/07/2017 27-0.8 mg multivitamin tablet Take 1 tablet by mouth Daily. Start: 07/07/2017 propofol infusion 10 mg/mL infusion Inject 522-3,654 mcg/min into the vein continuous. aka: DIPRIVAN Discontinued Medications lisinopril-hydrochlorothiazide 20-25 MG per tablet aka: VIANEY BURNHAMSTORETIC Immunization History Administered Date(s) Administered DTAP, 5 DOSE (PED) 05/14/1999 HEP A, 2 DOSE (ADULT) 01/31/2001 Hib (Prp-d) 05/14/1999, 01/31/2001 IPV, 4 DOSE (PED/ADULT) 05/14/1999 Condition on Discharge: Unstable Vital Signs: Temp: 36.6 C (97.9 F) BP: 131/76 Pulse: 82 Resp: 15 SpO2: 100 % Min/Max Temp past 24 hours:Temp Av.4 C (97.5 F) Min: 36 C (96.8 F) Max: 37 C (98.6 F) Intake/Output Summary (Last 24 hours) at 07/06/17 1805 Last data filed at 07/06/17 1720 Gross per 24 hour Intake 607 ml Output 1500 ml Net -893 ml Last Wt. Before discharge: Weight: 52.2 kg (115 lb) Disposition: Transferred to [facility]. Accepted Dr. Romero. Code Status/Advance Directive (Pertinent discussions/declarations): Full Code Time spent on Discharge and Coordination of post-hospital care: >30 minutes Electronically signed by: Johana Brower, 07/06/2017 18:05 [facility] documented in this en counter Discharge Instructions Instructions Johana Brower MD - 07/06/2017Patient being transferred [facility] for higher level of care. documented in this encounter Medications at Time of Discharge + + + +---------+ + + | Medication | Sig | Dispensed | Refills | Start | End Date | | | | | | Date | | + + + +---------+ + + | | Swish and spit 10 | | 0 | 08/03/26 | | | Diphenhyd-Hydrocort- | mLs every [...] documented as of this encounter Progress Notes Antonio Cobb DO - 07/06/2017 5:35 PM PSTReviewed events of this afternoon and di scussed case with Dr. Brower. Agree with need for patient transfer. At 20wks EGA if intervention necessary from OB stand point this is not a viable . If able to support patient and carry to viable gestat ional age we would not be able to support extremely premature infant at this facility. Do need to consider possibility of preeclampsia contributing to patient's symptoms. Review ed with Dr. Brower that secondary to only 20wks gestation this was not concern at admission as typically this is not diagnosed this early in . She did not have elevated liver enzymes at time of admission. Recommended continued management of elevated BPs with labetalol and if not responsive hydra lazine. Management will continue to be per medicine. Plan on transfer to tertiary care facility and will continue to assist Dr. Brower as needed Johana Cha MD - 07/06/2017 2:23 PM PST [facility] Hospitalist Progress Note Aurea Rushing is a 37 y.o. female INTERVAL HPI: She is a 37 y/o female who is 20 weeks , active methamphetamine abuse presented on 07/04 with chest pain. Troponin peaked to 0.23; down to 0.11 this am. Echo - EF -50%, grade 1 diastolic dysfunction. Continued to have increased anxiety and shortness of breath during h ospital course. This afternoon, she went in acute respiratory distress, Desaturated to 61% o n Ra, severely agitated not allowing to put the mask on. SBP 220s. Had pink frothy sputum an d coarse crackles b/l. Received ativan 1mg IV x2 and lasix 40mg IV x1. Remained to be hypoxi c on non re-breather and agitated. She was intubated and placed on mechanical ventilation. P ropofol for sedation. Updated Dr. Montilla. SUBJECTIVE: Sedated and on vent. VITALS: Temp: 36 C (96.8 F), Pulse: 94, Resp: 22, BP: 170/80, SpO2 97 % on nasal cannula at [place] w rate 2L/min Temp Min: 36 C (96.8 F) Max: 36.7 C (98 F) Weight: 52.2 kg (115 lb) Intake/Output Summary (Last 24 hours) at 07/06/17 1423 Last data filed at 07/06/17 1100 Gross per 24 hour Intake 1462 ml Output 900 ml Net 562 ml PHYSICAL EXAM: Gen Conchita - sedated now, on vent Head - Normocephalic, without obvious abnormality Eyes - PERRL, conjunctiva/corneas clear ENT - mucous membranes moist Neck - supple Lungs - coarse crackles bilateral Heart - Tachycardic, S1S2 heard Abdomen - Firm Extremities - no peripheral edema Skin - lips cyanosed during acute respiratory distress episode DIAGNOSTIC STUDIES: Available data and images were reviewed personally. Significant results and findings are a ddressed here or in the Assessment and Plan. Recent Results (from the past 24 hour(s)) Extra Green Top Tube Result Value Ref Range Extra Green Top Tube Done CK Total Result Value Ref Range CK TOTAL 53 22 - 269 U/L Comprehensive Metabolic Panel Result Value Ref Range NA 131 (L) 136 - 149 mmol/L K 3.9 3.5 - 5.1 mmol/L CL 98 98 - 109 mmol/L CO2 25 24 - 31 mmol/L ANION GAP 8 3 - 16 mmol/L GLUCOSE 111 (H) 70 - 109 mg/dL BUN 44 (H) 7 - 18 mg/dL Creatinine, Serum/Plasma 2.14 (H) 0.60 - 1.30 mg/dL eGFR if not 26 (L) >=60 mL/min/1.73m2 CALCIUM 8.1 (L) 8.3 - 10.5 mg/dL ALBUMIN 2.3 (L) 3.2 - 5.0 g/dL BILIRUBIN TOTAL 0.7 0.1 - 1.5 mg/dL Total protein 5.3 (L) 6.0 - 7.8 g/dL AST 33 10 - 42 U/L ALT 16 6 - 45 U/L ALK PHOS 54 40 - 110 U/L GLOBULIN 3.0 2.1 - 3.8 g/dL Albumin/Globulin ratio 0.8 0.8 - 2.0 BUN/CREA 20.6 CBC with Differential Result Value Ref Range WBC 9.3 4.0 - 11.0 K/uL RBC 2.91 (L) 3.70 - 5.20 M/uL Hgb 8.0 (L) 11.5 - 16.0 g/dL Hct 24.3 (L) 34.0 - 47.0 % MCV 83.5 83.0 - 101.0 fL MCH 27.4 (L) 28.0 - 35.0 pg MCHC 32.8 32.0 - 36.0 g/dL RDW-CV 21.5 (H) <15.0 % Platelet Count 77 (L) 140 - 440 K/uL MPV 9.2 fL % Neutrophils 75.4 45.0 - 82.0 % % Lymphocytes 16.1 (L) 20.0 - 45.0 % % Monocytes 6.6 4.0 - 12.0 % % Eosinophils 0.9 0.0 - 5.0 % % Basophils 1.0 0.0 - 1.0 % Absolute Neutrophils 7.00 1.80 - 8.50 K/uL Absolute Lymphocytes 1.50 0.60 - 3.20 K/uL Absolute Monocytes 0.60 0.00 - 1.00 K/uL Absolute Eosinophils 0.10 0.00 - 0.40 K/uL Absolute Basophils 0.10 0.00 - 0.10 K/uL Urinalysis with Microscopic if Indicated Result Value Ref Range COLOR Yellow Light Yellow, Yellow, Straw CLARITY Hazy (A) Clear PH UA 6.0 5.0 - 8.0 Specific [place] 1.015 1.001 - 1.030 PROTEIN UA 100 mg/dL (A) Negative BLOOD UA Moderate (A) Negative GLUCOSE UA Negative Negative KETONES UA Negative Negative BILIRUBIN UA Negative Negative NITRITE UA Negative Negative LEUKOCYTES ESTERASE UA Trace (A) Negative UROBILINOGEN UA Negative 0.2 mg/dL, 1.0 mg/dL, Negative WBC UA 2-5 (A) 0 - 2 /HPF RBC UA 2-5 (A) 0 - 2 /HPF SQUAMOUS EPITHELIAL UA >100 (A) 0 - 2 /LPF BACTERIA UA 1+ (A) Negative /HPF HYALINE CASTS UA 0-2 0 - 2 /LPF Iron and Transferrin Result Value Ref Range IRON 134 40 - 150 ug/dL TRANSFERRIN 249.3 240.0 - 480.0 mg/dL TIBC 349 235 - 425 ug/dL % SATURATION 38.4 20.0 - 55.0 % Ferritin Result Value Ref Range FERRITIN 32 11 - 307 ng/mL Troponin I Result Value Ref Range Troponin I 0.15 (H) <0.06 ng/mL Basic Metabolic Panel Result Value Ref Range NA 131 (L) 136 - 149 mmol/L K 3.4 (L) 3.5 - 5.1 mmol/L CL 101 98 - 109 mmol/L CO2 23 (L) 24 - 31 mmol/L ANION GAP 7 3 - 16 mmol/L GLUCOSE 91 70 - 109 mg/dL BUN 49 (H) 7 - 18 mg/dL Creatinine, Serum/Plasma 2.22 (H) 0.60 - 1.30 mg/dL eGFR if not 25 (L) >=60 mL/min/1.73m2 CALCIUM 7.9 (L) 8.3 - 10.5 mg/dL BUN/CREA 22.1 Us Ob 14+ Wks Detail Temi Single/1st Result Date: 07/05/2017 EXAM: US OB 14 + WEEKS DETAIL ANATOMY SINGLE OR FIRST GESTATION and 07/05/2017 1:34 PM HISTORY: Full anatomy ultrasound. COMPARISON: July 04, 2017 FINDINGS: BPD: 4.8 cm: 20 weeks 3 days HC: 17.8 cm: 20 weeks 2 days AC: 14.6 cm: 20 weeks 0 days FL: 3.2 cm: 20 weeks 0 days EFW: 324 g. Cephalic index: 76(normal range 70.0-86.0) HC/AC ratio: 1.22 (1.09-1.39) Composite estimated gestational age by U/S equals 20 weeks 2 days. heart rate: 156 bp m. The cervix is not well seen. The placenta is posterior, without evidence of placenta prev ia. The fetus is in breech presentation. Amniotic fluid is subjectively normal. Active motion is seen. The intracranial anatomy, face, nose/lips, four-chamber heart with visible right ventricular outflow tracts, diaphragm, stomach, kidneys, urinary bladder, 3-vessel co rd, and upper and lower extremities are unremarkable. No gross anomalies are seen. T he left cardiac ventricular outflow tract is not well seen. The cord insertion is not well seen. The spine is not well seen. IMPRESSION - There is a single live intrauterine ge station. Ultrasound dating 20 weeks 2 days. No gross anomalies identified. Recommendat ion: Consideration for follow-up to reevaluate anatomic structures not well seen and cervica l length. Dictated and Signed by: Aramis Munoz MD Electronically signed: 07/05/2017 3:13 PM Us Ob Limited 1 Or More Fetus Result Date: 07/04/2017 TECHNIQUE: Routine transabdominal imaging of the uterus. CLINICAL INFORMATION: CHEST PAIN. COMPARISON: None available. FINDINGS: Limited examination due to patient's inability to kylah in still. Intrauterine gestation(s): Single presentation: Cephalic. Placenta location: Posterior. Cervix: Not well visualized. MEASUREMENTS: Femur length: 3.21 cm, corresponding to 20 weeks 0 days. Amniotic fluid: Appears normal. heart rate: Heart motion was visu alized but rate was not able to be obtained due to exam difficulty as above. IMPRESSION - Deborah canales evaluation due to the patient's inability to remain still during the examination. Sin gle intrauterine with limited dating as above. Recommend follow-up sonogram to ass ess anatomy. Dictated and Signed by: Paul Mc MD Electronically signed: 018 5:36 PM Current Facility-Administered Medications: acetaminophen 650 mg Oral Q4H PRN calcium carbonate 1,000 mg Oral Q4H PRN etomidate 20 mg Intravenous Once furosemide furosemide 40 mg Intravenous Once guaiFENesin-dextromethorphan 10 mL Oral Q4H PRN LORazepam 1 mg Intravenous Once LORazepam 1-2 mg Oral Q6H PRN pantoprazole 40 mg Intravenous Daily 27-0.8 mg multivitamin 1 tablet Oral Daily propofol infusion 10-70 mcg/kg/min Intravenous Titrated propofol infusion ASSESSMENT and PLAN: 1. Acute hypoxic respiratory failure probably from flash pulmonary edema - Requiring intubation/mechanical ventilation - Repeat labs CBC, CMP, Mg, Lactic acid, troponin, BNP - repeat EKG - CXR- concerning for pulmonary edema - ABG in 1 hour - Culture from ET tube - Will give another dose of lasix 40 mg - labetalol 20mg IV 2h PRN. Okay with hydralazine and labetalolol per Dr. Cobb - strict I and O and daily weight - Dr. Landin (cardiology) consulted 2. Chest pain with mildly elevated troponin on adx - troponin peaked to 0.23 -->.011 this am - repeat troponin and EKG - Echo - EF-50%, grade 1 diastolic dysfunction, mild-mod MR/AR 3. Acute kidney injury vs AUNG on CKD - discontinued IVF and started on IV diuresis - strict I and O - renally dose meds 4. Normocytic anemia/thrombocytopenia 5. 20 Weeks EGA. High risk . - DVT Prophylaxis: SCD Diet: NPO Code Status: Full Code. Discussed with Dr. Cobb (torque tester). Given her high risk and acute respiratory failure from flash pulmonary edema requiring intubation, she would need higher level of car e and need transfer to tertiary care center. I spoke with Dr. Romero (crankshaft straightener) from [facility] who accepted her and now being transferred to [facility]. Total time of approximately 60 minutes was spent with the patient and/or patient's family, and/or on the patient's floor/unit, of which more than 50% was spent counseling and/or coord ination the patient's care as outlined above. Johana Brower 07/06/2017 14:23 [facility] Antonio Nassar DO - 07/06/2017 12:27 PM PSTShe is sleeping at this time. Pt continues to remain anxious and agitated. Has difficulty expressing her thoughts and not clear on past medical history. Easily awoken but will not answer questions this AM. VS T36, P 94, R 22, BP 170/80 Gen: Sleepy HRRR. LCTa Abd: soft. Fundus at level of umbilicus Ext: Neg edema b/l LE FHTs dopplered at 140 bpm overnight Labs: 9.3>8/24.3<77 A/P: 1. Formal US yesterday confirms IUP@ 20w3d EGA today. Anatomy scan incomplete but th is may completed as outpatient. labs drawn. 2. Chronic HTN in . Consider adding twice daily dosing of labetalol 200mg BID. Will await medicine input before starting in light of CP and elevated troponins. 3. Chest pain and elevated troponins. Troponins decreased this AM. Medicine managing 4. Methamphetamine use in . At this time using Ativan with no withdrawal symptom s. Case management looking into possible admission for inpatient rehab after discharge. 5. Anemia and thrombocytopenia. Ferritin obtained today and was WNL. Checking hemoccult p er medicine. 6. Stable at this time from OB standpoint. Will await medicine recommendations for furthe r care. Benjy Celis PharmD - 07/06/2017 9:11 AM PST RENAL DOSE ADJUSTMENT PER PHARMACY PROTOCOL: Subjective/Objective: Aurea Rushing is a 37 y.o. year old female admitted on 07/04/2017 13:14 for CP and is receiving FAMOTIDINE for SUP. BP 170/80 | Pulse 94 | Temp 36 C (96.8 F) (Oral) | Resp 22 | Ht 1.676 m (5' 6") | Wt 52.2 kg (115 lb) | SpO2 97% | BMI 18.56 kg/m Intake/Output Summary (Last 24 hours) at 07/06/17 0911 Last data filed at 07/06/17 0518 Gross per 24 hour Intake 2866 ml Output 600 ml Net 2266 ml Recent Labs Lab 07/06/17 0430 07/05/17 1916 07/04/17 1357 CREA 2.22* 2.14* 2.13* Estimated Creatinine Clearance: 28 mL/min (based on SCr of 2.22 mg/dL (H)). Assessment/Plan: 1. For creatinine clearance ~ 28 ml/min (30-50 ml/min), Famotidine 20 mg po daily 2. Pharmacy will continue to follow and adjust dose as appropriate to clinical condition an d creatinine clearance changes RENAL DOSE ADJUSTMENT PROTOCOL Electronically signed by: Benjy Buchanan PharmD 07/06/2017 9:11 Adamaris Justin RN - 07/06/2017 4:19 AM PSTPatient called, c/o SOB, seemed panicked. Assessed vital signs, BP 234/110. Notified MD. Verbal order to give PRN IV labetolol and lorazepam. Rechecked BP a fter 10 minutes, 174/97. Monitoring patient closely. Yaniv Gilmore MD - 07/05/2017 6:32 PM PSTFormatting of thi s note might be different from the original. [facility] Hospitalist Progress Note Aurea Rushing is a 37 y.o. female ASSESSMENT and PLAN: 1. Methamphetamine abuse with chest pain Patient's remote troponins that remained elevated. She reports diffuse discomfort includin g her abdomen, legs, and chest. He states that her abdominal discomfort has responded to Tu ms and as such I may give her a trial of some famotidine. Her chest discomfort has resulted in elevation of troponin but is been a relatively flat response i.e. this a.m. her troponin was 0.23. Will repeat in a.m. and once is normal I will likely discharge patient home. She is reporting bilateral leg spasms and pain and I did examine her calves which are soft and without nuchal findings. Distal quads and hamstrings i.e. right at the level above her knees and there is no muscle spasms to exam. I did advise her that I believe she could bene fit from more lorazepam. We will check a CPK and repeat blood work noting her potassium was 2.6 with a sodium of 129 and at the time of presentation her creatine was 2.13. She has be en on 125 cc of LR and will reduce her to 75 cc per hour pending these labs. 2. AK I Plan will be as above. 3. Complaints of lower extremity pains In addition to assessing CPK total I'm going firm iron studies and she reports she has rest less legs. Recommend iron supplements for treatment of restless legs if present 4. Anemia/thrombocytopenia Patient's blood counts are significantly abnormal and we'll repeat these values this p.m. Check Hemoccults and iron studies are pending SUBJECTIVE: Patient reports chest, abdominal, and leg pains. He reports muscle spasms not confirmed by examination. She reports nausea associated with her abdominal pain. VITALS: Temp: 36.7 C (98 F), Pulse: 91, Resp: 18, BP: 150/88, SpO2 99 % on room air at flow rat e L/min Temp Min: 36.1 C (97 F) Max: 36.7 C (98.1 F) Weight: 52.2 kg (115 lb) Intake/Output Summary (Last 24 hours) at 07/05/17 1832 Last data filed at 07/05/17 1744 Gross per 24 hour Intake 2717 ml Output 300 ml Net 2417 ml PHYSICAL EXAM: Cardiovascular: Rate and rhythm Respiratory: clear bilaterally Abdomen: Soft with diffuse tenderness but no masses or organomegaly notable bowel sounds are present Extremities: without muscle spasms swelling, or other abnormalities apparent DIAGNOSTIC STUDIES: Available data and images were reviewed personally. Significant results and findings are a ddressed here or in the Assessment and Plan. Lab Results Component Value Date HGB 8.2 (L) 07/04/2017 HCT 25.3 (L) 07/04/2017 PLT 77 (L) 07/04/2017 WBC 14.2 (H) 07/04/2017 Lab Results Component Value Date NA 129 (L) 07/04/2017 K 2.6 (L) 07/04/2017 CL 91 (L) 07/04/2017 CO2 27 07/04/2017 CREA 2.13 (H) 07/04/2017 BUN 41 (H) 07/04/2017 MG 2.1 07/05/2017 No results found for: POCGLU No results found for: POCGLU Us Ob 14+ Wks Detail Temi Single/1st Result Date: 07/05/2017 EXAM: US OB 14 + WEEKS DETAIL ANATOMY SINGLE OR FIRST GESTATION and 07/05/2017 1:34 PM HISTORY: Full anatomy ultrasound. COMPARISON: July 04, 2017 FINDINGS: BPD: 4.8 cm: 20 weeks 3 days HC: 17.8 cm: 20 weeks 2 days AC: 14.6 cm: 20 weeks 0 days FL: 3.2 cm: 20 weeks 0 days EFW: 324 g. Cephalic index: 76(normal range 70.0-86.0) HC/AC ratio: 1.22 (1.09-1.39) Composite estimated gestational age by U/S equals 20 weeks 2 days. heart rate: 156 bp m. The cervix is not well seen. The placenta is posterior, without evidence of placenta prev ia. The fetus is in breech presentation. Amniotic fluid is subjectively normal. Active motion is seen. The intracranial anatomy, face, nose/lips, four-chamber heart with visible right ventricular outflow tracts, diaphragm, stomach, kidneys, urinary bladder, 3-vessel co rd, and upper and lower extremities are unremarkable. No gross anomalies are seen. T he left cardiac ventricular outflow tract is not well seen. The cord insertion is not well seen. The spine is not well seen. IMPRESSION - There is a single live intrauterine ge station. Ultrasound dating 20 weeks 2 days. No gross anomalies identified. Recommendat ion: Consideration for follow-up to reevaluate anatomic structures not well seen and cervica l length. Dictated and Signed by: Aramis Munoz MD Electronically signed: 07/05/2017 3:13 PM Us Ob Limited 1 Or More Fetus Result Date: 07/04/2017 TECHNIQUE: Routine transabdominal imaging of the uterus. CLINICAL INFORMATION: CHEST PAIN. COMPARISON: None available. FINDINGS: Limited examination due to patient's inability to kylah in still. Intrauterine gestation(s): Single presentation: Cephalic. Placenta location: Posterior. Cervix: Not well visualized. MEASUREMENTS: Femur length: 3.21 cm, corresponding to 20 weeks 0 days. Amniotic fluid: Appears normal. heart rate: Heart motion was visu alized but rate was not able to be obtained due to exam difficulty as above. IMPRESSION - Li mited evaluation due to the patient's inability to remain still during the examination. Sin gle intrauterine with limited dating as above. Recommend follow-up sonogram to ass ess anatomy. Dictated and Signed by: Paul Mc MD Electronically signed: 018 5:36 PM Xr Chest Ap Portable Result Date: 07/04/2017 CLINICAL INFORMATION: CHEST PAIN. COMPARISON: None available. FINDINGS: Portable frontal ch est radiograph. Lungs: Patchy airspace opacities are noted at the right lung base. No pleur al effusion or pneumothorax. Heart/mediastinum: Cardiac silhouette is of normal size. Centra l pulmonary vasculature has a normal appearance. Bones: No acute osseous abnormality appreci ated. IMPRESSION - Findings are most consistent with right lower lung pneumonia [facility] the [facility]. Dictated and Signed by: Paul Mc MD Electronically signed: 07/04/2017 2:58 PM Total time of approximately 25 minutes was spent with the patient and/or patient's family, and/or on the patient's floor/unit, of which more than 50% was spent counseling and/or coord ination the patient's care as outlined above. Yaniv Miller 07/05/2017 18:32 [facility] Portions of this chart may have been created with [employer] voice recognition software. Occasi onal wrong-word or sound-alike substitutions may have occurred due to the inherent guerrero itations of voice recognition software. Please read the chart carefully and recognize, using context, where these substitutions have occurred Antonio Nassar DO - 07/05/2017 12:36 PM PSTLate entry from 0800. Pt continues to remain anxious and agitated. Has difficulty expressing her thoughts and no t clear on past medical history. She has had no vaginal bleeding overnight. Denies abd arron n or cramping. Biggest concern this AM is that she is hungry. She does admit to some sligh t chest pain but cannot tell if this is improved from admission or not. VS T36.7, P 87, R 18, BP 143/84 Gen: Agitated and anxious. Constant movements on bed HRRR. LCTa Abd: soft. Fundus at level of umbilicus Ext: Neg edema b/l LE FHTs dopplered at 138 bpm A/P: 1. IUP@ ~20wks EGA. Stable from obstetrical standpoint. All labs have been drawn. Will need to repeat formal US to determine gestational age and complete routine car e. Discussed with Aurea her need for compliance and attempts to try to sit still for fo llow up imaging. 2. Chest pain and elevated troponins. This is to be managed by medicine. When they feel she is stable in this regard can consider DC home. 3. No further intervention from OB standpoint. Will await medicines recommendations. Yulissa ctronically signed by Antonio Cobb DO at 07/05/2017 12:41 PM Elif Eaton RN - 07/04/2017 6:54 PM PSTPatient arrived to floor from ER, initial IV bolus continuing t o infuse. Vital signs obtained. Report received from ER - MAURICE Goss. All questions answered, orders released, call light and room orientation reviewed, reinforcement needed. Bed alarm i n place. documented in this encounter Plan of Treatment Not on filedocumented as of this encounter Procedures + +--------+ + + + | Procedure Name | Priori | Date/Time | Associated Diagnosis | Comments | | | ty | | | | + +--------+ + + + | XR CHEST AP PORTABLE | STAT | 07/06/2017 | | Results for this | | | | 7:55 PM | | procedure are in the | | | | PST | | results section. | + +--------+ + + + | BLOOD GAS, ARTERIAL | STAT | 07/06/2017 | | Results for this | | | | 4:56 PM | | procedure are in the | | | | PST | | results section. | + +--------+ + + + | CBC WITH | Routin | 07/06/2017 | | Results for this | | DIFFERENTIAL | e | 4:42 PM | | procedure are in the | | | | PST | | results section. | + +--------+ + + + | XR CHEST AP PORTABLE | USHA | 07/06/2017 | Acute renal | Results for this | | | | 4:22 PM | failure, unspecified | procedure are in the | | | | PST | acute renal failure | results section. | | | | | type (HCC) | | + +--------+ + + + | INTUBATION | Routin | 07/06/2017 | | Results for this | | | e | 3:55 PM | | procedure are in the | | | | PST | | results section. | + +--------+ + + + | TROPONIN I | STAT | 07/06/2017 | | Results for this | | | | 2:58 PM | | procedure are in the | | | | PST | | results section. | + +--------+ + + + | B TYPE NATRIURETIC | STAT | 07/06/2017 | | Results for this | | PEPTIDE | | 2:58 PM | | procedure are in the | | | | PST | | results section. | + +--------+ + + + | LACTIC ACID | Routin | 07/06/2017 | | Results for this | | | e | 2:58 PM | | procedure are in the | | | | PST | | results section. | + +--------+ + + + | COMPREHENSIVE | STAT | 07/06/2017 | | Results for this | | METABOLIC PANEL | | 2:58 PM | | procedure are in the | | | | PST | | results section. | + +--------+ + + + | ECG 12 LEAD | STAT | 07/06/2017 | | Results for this | | | | 2:44 PM | | procedure are in the | | | | PST | | results section. | + +--------+ + + + | XR CHEST AP PORTABLE | STAT | 07/06/2017 | | Results for this | | | | 2:17 PM | | procedure are in the | | | | PST | | results section. | + +--------+ + + + | TROPONIN I | Routin | 07/06/2017 | | Results for this | | | e | 4:30 AM | | procedure are in the | | | | PST | | results section. | + +--------+ + + + | IRON AND TRANSFERRIN | Routin | 07/06/2017 | | Results for this | | | e | 4:30 AM | | procedure are in the | | | | PST | | results section. | + +--------+ + + + | FERRITIN | Routin | 07/06/2017 | | Results for this | | | e | 4:30 AM | | procedure are in the | | | | PST | | results section. | + +--------+ + + + | BASIC METABOLIC | Routin | 07/06/2017 | | Results for this | | PANEL | e | 4:30 AM | | procedure are in the | | | | PST | | results section. | + +--------+ + + + | URINALYSIS WITH | Routin | 07/05/2017 | | Results for this | | MICROSCOPIC IF | e | 10:17 PM | | procedure are in the | | INDICATED | | PST | | results section. | + +--------+ + + + | CBC WITH | Routin | 07/05/2017 | | Results for this | | DIFFERENTIAL | e | 7:16 PM | | procedure are in the | | | | PST | | results section. | + +--------+ + + + | CK TOTAL | Routin | 07/05/2017 | | Results for this | | | e | 7:16 PM | | procedure are in the | | | | PST | | results section. | + +--------+ + + + | COMPREHENSIVE | Routin | 07/05/2017 | | Results for this | | METABOLIC PANEL | e | 7:16 PM | | procedure are in the | | | | PST | | results section. | + +--------+ + + + | EXTRA GREEN TOP TUBE | Routin | 07/05/2017 | | Results for this | | | e | 7:13 PM | | procedure are in the | | | | PST | | results section. | + +--------+ + + + | US OB 14 + WEEKS | Routin | 07/05/2017 | | Results for this | | DETAIL ANATOMY | e | 2:40 PM | | procedure are in the | | SINGLE OR FIRST | | PST | | results section. | | GESTATION | | | | | + +--------+ + + + | ECHO COMPLETE | Routin | 07/05/2017 | | Results for this | | | e | 7:42 AM | | procedure are in the | | | | PST | | results section. | + +--------+ + + + | TROPONIN I | Timed | 07/05/2017 | | Results for this | | | | 3:53 AM | | procedure are in the | | | | PST | | results section. | + +--------+ + + + | MAGNESIUM | Add-On | 07/05/2017 | | Results for this | | | | 3:53 AM | | procedure are in the | | | | PST | | results section. | + +--------+ + + + | TROPONIN I | Timed | 07/04/2017 | | Results for this | | | | 9:51 PM | | procedure are in the | | | | PST | | results section. | + +--------+ + + + | EXTRA GREEN TOP TUBE | Routin | 07/04/2017 | | Results for this | | | e | 8:13 PM | | procedure are in the | | | | PST | | results section. | + +--------+ + + + | EXTRA BLUE TOP TUBE | Routin | 07/04/2017 | | Results for this | | | e | 8:13 PM | | procedure are in the | | | | PST | | results section. | + +--------+ + + + | RAPID PLASMA REAGIN, | Routin | 07/04/2017 | | Results for this | | QUAL | e | 8:00 PM | | procedure are in the | | | | PST | | results section. | + +--------+ + + + | HEPATITIS B SURFACE | Routin | 07/04/2017 | | Results for this | | AG | e | 8:00 PM | | procedure are in the | | | | PST | | results section. | + +--------+ + + + | TYPE AND SCREEN | Routin | 07/04/2017 | | Results for this | | | e | 7:45 PM | | procedure are in the | | | | PST | | results section. | + +--------+ + + + | HIV TYPE 1 AND 2 AB | Routin | 07/04/2017 | | Results for this | | SCREEN, RAPID | e | 7:20 PM | | procedure are in the | | | | PST | | results section. | + +--------+ + + + | TSH | Routin | 07/04/2017 | | Results for this | | | e | 7:17 PM | | procedure are in the | | | | PST | | results section. | + +--------+ + + + | US OB LIMITED 1 OR | STAT | 07/04/2017 | | Results for this | | MORE FETUS | | 4:28 PM | | procedure are in the | | | | PST | | results section. | + +--------+ + + + | DRUGS OF ABUSE, | STAT | 07/04/2017 | | Results for this | | SCREEN, URINE | | 2:17 PM | | procedure are in the | | | | PST | | results section. | + +--------+ + + + | XR CHEST AP PORTABLE | STAT | 07/04/2017 | | Results for this | | | | 2:06 PM | | procedure are in the | | | | PST | | results section. | + +--------+ + + + | URINALYSIS WITH | STAT | 07/04/2017 | | Results for this | | MICROSCOPIC WITH | | 1:57 PM | | procedure are in the | | CULTURE IF INDICATED | | PST | | results section. | + +--------+ + + + | TROPONIN I | STAT | 07/04/2017 | | Results for this | | | | 1:57 PM | | procedure are in the | | | | PST | | results section. | + +--------+ + + + | CBC WITH | STAT | 07/04/2017 | | Results for this | | DIFFERENTIAL | | 1:57 PM | | procedure are in the | | | | PST | | results section. | + +--------+ + + + | HCG, SERUM, QUANT | STAT | 07/04/2017 | | Results for this | | | | 1:57 PM | | procedure are in the | | | | PST | | results section. | + +--------+ + + + | URIC ACID | Routin | 07/04/2017 | | Results for this | | | e | 1:57 PM | | procedure are in the | | | | PST | | results section. | + +--------+ + + + | COMPREHENSIVE | STAT | 07/04/2017 | | Results for this | | METABOLIC PANEL | | 1:57 PM | | procedure are in the | | | | PST | | results section. | + +--------+ + + + | OXYGEN THERAPY | STAT | 07/04/2017 | | | | | | 1:23 PM | | | | | | PST | | | + +--------+ + + + | ECG 12 LEAD | STAT | 07/04/2017 | | Results for this | | | | 1:10 PM | | procedure are in the | | | | PST | | results section. | + +--------+ + + + documented in this encounter Results XR Chest AP Portable (07/06/2017 7:55 PM PST) + + | Specimen | + + | | + + + + + | Narrative | Performed At | + + + | SINGLE AP CHEST 07/06/2017 7:55 PM CLINICAL HISTORY: OG tube | [facility] | | placement COMPARISON: Preceding chest radiography FINDINGS: | | | The endotracheal tube remains in position however its relationship to | | | the ofelia is not well visualized. An esophagogastric tube is now | | | present, coursing into the left mid abdomen and region of the gastric | | | body. Right approach PICC appears to terminate over the right | | | atrium. Patchy opacity persists in the imaged mid to lower lungs. | | | Gas and stool are present in the imaged colon. IMPRESSION - | | | 1. ESOPHAGOGASTRIC TUBE COURSING INTO THE LEFT ABDOMEN AND REGION | | | OF THE GASTRIC BODY. 2. PERSISTENT PATCHY OPACITY IN THE IMAGED | | | MID TO LOWER LUNGS. 3. RIGHT APPROACH PICC TERMINATING AT THE | | | LEVEL OF THE RIGHT ATRIUM. Dictated and Signed by: Abimael Wong | | | Electronically signed: 07/06/2017 9:40 PM | | + + + + + | Procedure Note | + + | Prudencio, Rad Results In - 07/06/2017 9:43 PM PST SINGLE AP CHEST 07/06/2017 7:55 PM | | | | CLINICAL HISTORY: OG tube placement | | | | COMPARISON: Preceding chest radiography | | | | FINDINGS: The endotracheal tube remains in position however its relationship to | | the ofelia is not well visualized. An esophagogastric tube is now present, | | coursing into the left mid abdomen and region of the gastric body. Right | | approach PICC appears to terminate over the right atrium. Patchy opacity | | persists in the imaged mid to lower lungs. Gas and stool are present in the | | imaged colon. | | | | IMPRESSION - | | | | 1. ESOPHAGOGASTRIC TUBE COURSING INTO THE LEFT ABDOMEN AND REGION OF THE | | GASTRIC BODY. | | | | 2. PERSISTENT PATCHY OPACITY IN THE IMAGED MID TO LOWER LUNGS. | | | | 3. RIGHT APPROACH PICC TERMINATING AT THE LEVEL OF THE RIGHT ATRIUM. | | | | Dictated and Signed by: Abimael Wong MD | | Electronically signed: 07/06/2017 9:40 PM | + + + +---------+ + + | Performing | Address | City/State/Zipcode | Phone Number | | Organization | | | | + +---------+ + + | [facility] | | | | + +---------+ + + Blood Gas, Arterial (07/06/2017 4:56 PM PST) + + + + + + | Component | Value | Ref Range | Performed | Pathologist | | | | | At | Signature | + + + + + + | pH Temp | 7.27 | | [facility] | | | Corrected, | | | [facility] | | | Arterial | | | MED[facility] | | | | | | C[facility] - | | | | | | LABORATORY | | + + + + + + | pCO2 Temp | 54 | mmHg | [facility] | | | Corrected, | | | [facility] | | | Arterial | | | MEDICAL | | | | | | CENTER - | | | | | | LABORATORY | | + + + + + + | pO2 Temp | 180 | mmHg | [facility] | | | Corrected, | | | [facility] | | | Arterial | | | MEDICAL | | | | | | CENTER - | | | | | | LABORATORY | | + + + + + + | pH, | 7.27 (L) | 7.35 - 7.45 | [facility] | | | Arterial | | | [facility] | | | | | | MEDICAL | | | | | | C[facility] - | | | | | | LABORATORY | | + + + + + + | pCO2, | 54 (H) | 35 - 45 mm Hg | [facility] | | | Arterial | | | [facility] | | | | | | MEDICAL | | | | | | CENTER - | | | | | | LABORATORY | | + + + + + + | pO2, | 180 | >=60 mm Hg | [facility] | | | Arterial | | | [facility] | | | | | | MEDICAL | | | | | | CENTER - | | | | | | LABORATORY | | + + + + + + | HCO3, | 24.0 (H) | 18.0 - 23.0 | [facility] | | | Arterial | | mmol/L | [facility] | | | | | | MEDICAL | | | | | | CENTER - | | | | | | LABORATORY | | + + + + + + | Base | -2.4 (L) | -2.0 - 2.0 | [facility] | | | Excess, | | mmol/L | [facility] | | | Arterial | | | MEDICAL | | | | | | CENTER - | | | | | | LABORATORY | | + + + + + + | O2 | 99 (H) | 95 - 98 % | [facility] | | | Saturation, | | | [facility] | | | Arterial | | | MEDICAL | | | | | | CENTER - | | | | | | LABORATORY | | + + + + + + | Hemoglobin, | 8.1 | g/dL | [facility] | | | Arterial | | | [facility] | | | | | | MEDICAL | | | | | | CENTER - | | | | | | LABORATORY | | + + + + + + | Oxyhemoglob | 95.6 | 90.0 - 100.0 % | [facility] | | | in, | | | [facility] | | | Arterial | | | MEDICAL | | | | | | CENTER - | | | | | | LABORATORY | | + + + + + + | Methemoglob | 1.2 | 0.0 - 1.5 % | [facility] | | | in, | | | [facility] | | | Arterial | | | MEDICAL | | | | | | CENTER - | | | | | | LABORATORY | | + + + + + + | Carboxyhemo | 2.3 (H) | 0.0 - 1.5 % | [facility] | | | globin, | | | [facility] | | | Arterial | | | MEDICAL | | | | | | CENTER - | | | | | | LABORATORY | | + + + + + + | FiO2 | 70.0 | % | [facility] | | | | [...] [address] | [place] | [phone] | | [facility] | | [id number] | | | - LABORATORY | | | | + + + + + CBC with Differential (07/06/2017 4:42 PM PST) + + + + + + | Component | Value | Ref Range | Performed | Pathologist | | | | | At | Signature | + + + + + + | WBC | 18.0 (H) | 4.0 - 11.0 K/uL | [facility] | | | | [facility] | [facility] | | [facility] | | | | | | [facility] - | | | | | | LAB[facility]ATORY | | + + + + + + | RBC | 2.88 (L) | 3.70 - 5.20 | [facility] | | | | | M/uL | [facility] | | | | | | MEDICAL | | | | | | CENTER - | | | | | | LABORATORY | | + + + + + + | Hemoglobin | 8.0 (L) | 11.5 - 16.0 | [facility] | | | | | g/dL | [facility] | | | | | | MEDICAL | | | | | | CENTER - | | | | | | LABORATORY | | + + + + + + | Hematocrit | 24.5 (L) | 34.0 - 47.0 % | [facility] | | | | | | [facility] | | | | | | [facility]ICAL | | | | | | C[facility] - | | | | | | LABORATORY | | + + + + + + | MCV | 84.9 | 83.0 - 101.0 fL | [facility] | | | | | | [facility] | | | | | | [facility]ICAL | | | | | | C[facility] - | | | | | | LABORATORY | | + + + + + + | MCH | 27.6 (L) | 28.0 - 35.0 pg | [facility] | | | | | | [facility] | | | | | | [facility] | | | | | | C[facility] - | | | | | | LABORATORY | | + + + + + + | MCHC | 32.5 | 32.0 - 36.0 | [facility] | | | | | g/dL | [facility] | | | | | | MEDICAL | | | | | | CENTER - | | | | | | LABORATORY | | + + + + + + | RDW-CV | 21.3 (H) | <15.0 % | [facility] | | | | | | [facility] | | | | | | [facility]ICAL | | | | | | C[facility] - | | | | | | LABORATORY | | + + + + + + | Platelet | 81 (L) | 140 - 440 K/uL | [facility] | | | Count | | | [facility] | | | | | | [facility] | | | | | | CENTER - | | | | | | LABORATORY | | + + + + + + | MPV | 8.5 | fL | [facility] | | | | | | [facility] | | | | | | [facility]ICAL | | | | | | CENTER - | | | | | | LABORATORY | | + + + + + + | % | 91.0 (H) | 45.0 - 82.0 % | [facility] | | | Neutrophils | | | [facility] | | | | | | MEDICAL | | | | | | CENTER - | | | | | | LABORATORY | | + + + + + + | % | 4.3 (L) | 20.0 - 45.0 % | [facility] | | | Lymphocytes | | | [facility] | | | | | | MEDICAL | | | | | | CENTER - | | | | | | LABORATORY | | + + + + + + | % Monocytes | 4.1 | 4.0 - 12.0 % | [facility] | | | | | | [facility] | | | | | | [facility] | | | | | | C[facility] - | | | | | | LABORATORY | | + + + + + + | % | 0.4 | 0.0 - 5.0 % | [facility] | | | Eosinophils | | | [facility] | | | | | | MEDICAL | | | | | | CENTER - | | | | | | LABORATORY | | + + + + + + | % Basophils | 0.2 | 0.0 - 1.0 % | [facility] | | | | | | [facility] | | | | | | MEDICAL | | | | | | CENTER - | | | | | | LABORATORY | | + + + + + + | Absolute | 16.40 (H) | 1.80 - 8.50 | [facility] | | | Neutrophils | | K/uL | [facility] | | | | | | MEDICAL | | | | | | CENTER - | | | | | | LABORATORY | | + + + + + + | Absolute | 0.80 | 0.60 - 3.20 | [facility] | | | Lymphocytes | | K/uL | [facility] | | | | | | MEDICAL | | | | | | CENTER - | | | | | | LABORATORY | | + + + + + + | Absolute | 0.70 | 0.00 - 1.00 | [facility] | | | Monocytes | | K/uL | [facility] | | | | | | MEDICAL | | | | | | CENTER - | | | | | | LABORATORY | | + + + + + + | Absolute | 0.10 | 0.00 - 0.40 | [facility] | | | Eosinophils | | K/uL | [facility] | | | | | [facility] | | | | | | CENTER - | | | | | | LABORATORY | | + + + + + + | Absolute | 0.00 | 0.00 - 0.10 | [facility] | | | Basophils | | K/uL | [facility] | | | | [...] ST. | [address] | [place], [place] | [phone] | | [facility] | | [address] | | | - LABORATORY | | | | + + + + + XR Chest AP Portable (07/06/2017 4:22 PM PST) + + | Specimen | + + | | + + + + + | Narrative | Performed At | + + + | SINGLE AP CHEST 07/06/2017 4:17 PM CLINICAL HISTORY: PICC tip | [facility] | | placement COMPARISON: Radiography from earlier in the day and | | | July 04 FINDINGS: The endotracheal tube remains in position, | | | terminating approximately 1.8 cm above the ofelia. A right upper | | | extremity PICC is now present, appearing to terminate near the level | | | of the cavoatrial junction. The cardiomediastinal silhouette is | | | otherwise unremarkable. Patchy opacity within the mid to lower | | | right lung is similar in extent and distribution, while patchy opacity | | | in the left mid to lower lung appears more confluent from earlier in | | | the day. Air bronchograms are visible. Small right pleural | | | effusion is now apparent. Bones and soft tissues are unremarkable. | | | IMPRESSION - 1. ENDOTRACHEAL TUBE 1.8 CM ABOVE THE OFELIA. | | | 2. RIGHT APPROACH PICC TERMINATING IN GOOD POSITION NEAR THE | | | CAVOATRIAL JUNCTION. 3. PERSISTENT PATCHY BILATERAL PULMONARY | | | OPACITY, MORE CONFLUENT ON THE LEFT, AND POSSIBLY REFLECTING | | | PULMONARY EDEMA OR MULTIFOCAL INFILTRATE. A SMALL RIGHT PLEURAL | | | EFFUSION IS PRESENT. Dictated and Signed by: Abimael Wong MD | | | Electronically signed: 07/06/2017 4:36 PM | | + + + + + | Procedure Note | + + | Prudencio, Rad Results In - 07/06/2017 4:39 PM PST SINGLE AP CHEST 07/06/2017 4:17 PM | | | | CLINICAL HISTORY: PICC tip placement | | | | COMPARISON: Radiography from earlier in the day and July 04 | | | | FINDINGS: The endotracheal tube remains in position, terminating approximately | | 1.8 cm above the ofelia. A right upper extremity PICC is now present, appearing | | to terminate near the level of the cavoatrial junction. The cardiomediastinal | | silhouette is otherwise unremarkable. Patchy opacity within the mid to lower | | right lung is similar in extent and distribution, while patchy opacity in the | | left mid to lower lung appears more confluent from earlier in the day. Air | | bronchograms are visible. Small right pleural effusion is now apparent. Bones | | and soft tissues are unremarkable. | | | | IMPRESSION - | | | | 1. ENDOTRACHEAL TUBE 1.8 CM ABOVE THE OFELIA. | | | | 2. RIGHT APPROACH PICC TERMINATING IN GOOD POSITION NEAR THE CAVOATRIAL | | JUNCTION. | | | | 3. PERSISTENT PATCHY BILATERAL PULMONARY OPACITY, MORE CONFLUENT ON THE LEFT, | | AND POSSIBLY REFLECTING PULMONARY EDEMA OR MULTIFOCAL INFILTRATE. A SMALL RIGHT | | PLEURAL EFFUSION IS PRESENT. | | | | Dictated and Signed by: Abimael Wong MD | | Electronically signed: 07/06/2017 4:36 PM | + + + +---------+ + + | Performing | Address | City/State/Zipcode | Phone Number | | Organization | | | | + +---------+ + + | [facility] | | | | + +---------+ + + INTUBATION (07/06/2017 3:55 PM PST) + + + | Narrative | Performed At | + + + | Yas Arias MD 07/06/2017 15:56 Intubation | | | Date/Time: 07/06/2017 15:55 Performed by: YAS ARIAS | | | Authorized by: JOHANA BROWER Consent: The procedure was performed | | | in an emergent situation. Verbal consent not obtained. Written | | | consent not obtained. Indications: respiratory failure and airway | | | protection Intubation method: direct Patient status: sedated | | | Preoxygenation: BVM Sedatives: etomidate (20mg ) Laryngoscope size: | | | Kasper 4 Tube size: 7.5 mm Tube type: cuffed Number of attempts: 1 | | | Cricoid pressure: yes Cords visualized: yes Post-procedure | | | assessment: chest rise, ETCO2 monitor and CO2 detector Breath | | | sounds: equal Cuff inflated: yes ETT to lip: 21 cm Tube secured | | | with: ETT lópez Chest x-ray interpreted by me. Chest x-ray | | | findings: endotracheal tube in appropriate position Patient | | | tolerance: Patient tolerated the procedure well with no immediate | | | complications | | + + + Lactic Acid (07/06/2017 2:58 PM PST) + +-------+ + + + | Component | Value | Ref Range | Performed | Pathologist | | | | | At | Signature | + +-------+ + + + | Lactate | 1.2 | 0.5 - 2.2 | [facility] | | | | | mmol/L | [facility] | | | | [...] | + + + + + | [facility] | [address] | [place] | [phone] | | [facility] | | [address] | | | - LABORATORY | | | | + + + + + B Type Natriuretic Peptide (07/06/2017 2:58 PM PST) + + + + + + | Component | Value | Ref Range | Performed | Pathologist | | | | | At | Signature | + + + + + + | BNP | 1,351 (H) | <100 pg/mL | [facility] | | | | | | [facility] [...] [facility] | [address] | [place] | [phone] | | [facility] | | [address] | | | - LABORATORY | | | | + + + + + Troponin I (07/06/2017 2:58 PM PST) + + + + + + | Component | Value | Ref Range | Performed | Pathologist | | | | | At | Signature | + + + + + + | Troponin I | 0.13 (H)Comment: | <0.06 ng/mL | [facility] | | | | Reference | | [facility] | | | | Ranges:0.00-0.06 = | | MEDICAL | | | | NORMAL>0.06 = | | CENTER - | | | | SUSPICIOUS FOR | | LABORATORY | | | | MYOCARDIAL DAMAGE NOTE: | | | | | | Values greater than 0.50 | | | | | | ng/mL have been shown | | | | | | to be strongly | | | | | | associated with acute | | | | | | myocardial infarction. | | | | | | The [employer] | | | | | | Cardiology (ACC) | | | | | | recommends a decision | | | | | | limit of 0.06 ng/mL for | | | | | | this assay. Results | | | | | | greater than 0.06 can | | | | | | reflect a pre-infarct | | | | | | acute coronary syndrome, | | | | | | but can also reflect | | | | | | myocardial necrosis or | | | | | | injury that is not due | | | | | | to coronary artery | | | | | | disease. Some of these | | | | | | causes are sepsis, | | | | | | hypocolemia, atrial | | | | | | fibrillation, heart | | | | | | failure, pulmonary | | | | | | embolism, myocarditis, | | | | | | myocardial contusion, | | | | | | and renal failure. The | | | | | | diagnosis of myocardial | | | | | | infarction should be | | | | | | based on a combination | | | | | | of the patient's | | | | | | clinical presentation | | | | | | and the clinical | | | | | | laboratory test results | | | | | | (especially serial | | | | | | troponin levels). | | | | + + + + + + + + | Specimen | + + | Blood | + + + + + + + | Performing | Address | City/State/Zipcode | Phone Number | | Organization | | | | + + + + + | [facility] | [address] | [place] | [phone] | | [facility] | | [address] | | | - LABORATORY | | | | + + + + + Comprehensive Metabolic Panel (07/06/2017 2:58 PM PST) + + + + + + | Component | Value | Ref Range | Performed | Pathologist | | | | | At | Signature | + + + + + + | Na | 132 (L) | 136 - 149 | [facility] | | | | | mmol/L | [facility] | | | | | | [facility] | | | | | | C[facility] - | | | | | | LABORATORY | | + + + + + + | K | 3.7 | 3.5 - 5.1 | [facility] | | | | | mmol/L | [facility] | | | | | | MEDICAL | | | | | | CENTER - | | | | | | LABORATORY | | + + + + + + | Cl | 99 | 98 - 109 mmol/L | [facility] [...] + + + | Anion Gap | 9 | 3 - 16 mmol/L | [facility] | | | | | | [facility] | | | | | | MEDICAL | | | | | | CENTER - | | | | | | LABORATORY | | + + + + + + | Glucose | 129 (H) | 70 - 109 mg/dL | [facility] | | | | | | [facility] | | | | | | MED[facility] | | | | | | CENTER - | | | | | | LABORATORY | | + + + + + + | BUN | 48 (H) | 7 - 18 mg/dL | [facility] | | | | | | [facility] | | | | | | [facility] | | | | | | CENTER - | | | | | | LABORATORY | | + + + + + + | Creatinine | 2.35 (H) | 0.60 - 1.30 | [facility] | | | | | mg/dL | [facility] | | | | | | [facility] | | | | | | CENTER - | | | | | | LABORATORY | | + + + + + + | eGFR if not | 23 (L)Comment: | >=60 | [facility] | | | | GLOMERULAR FILTRATION | mL/min/1.73m2 | [facility] | | | [place] | RATE,ESTIMATED | | MEDICAL | | | | mL/min/1.65p1Zmgw than | | CENTER - | | [...] + + + + | Calcium | 7.9 (L) | 8.3 - 10.5 | [facility] | | | | | mg/dL | [facility] | | | | | | MEDICAL | | | | | | CENTER - | | | | | | LABORATORY | | + + + + + + | Albumin | 2.3 (L) | 3.2 - 5.0 g/dL | [facility] | | | | | | [facility] | | | | | | MEDICAL | | | | | | CENTER - | | | | | | LABORATORY | | + + + + + + | Bilirubin | 0.9 | 0.1 - 1.5 mg/dL | [facility] | | | Total | | | [facility] | | | | | | MEDICAL | | | | | | CENTER - | | | | | | LABORATORY | | + + + + + + | Total | 5.6 (L) | 6.0 - 7.8 g/dL | [facility] | | | Protein | | | [facility] | | | | | | MEDICAL | | | | | | CENTER - | | | | | | LABORATORY | | + + + + + + | AST | 44 (H) | 10 - 42 U/L | [facility] | | | | | | [facility] | | | | | | MEDICAL | | | | | | CENTER - | | | | | | LABORATORY | | + + + + + + | ALT | 18 | 6 - 45 U/L | [facility] | | | | | | [facility] | | | | | | MEDICAL | | | | | | CENTER - | | | | | | LABORATORY | | + + + + + + | Alkaline | 58 | 40 - 110 U/L | [facility] | | | Phosphatase | | | [facility] | | | | | | MEDICAL | | | | | | CENTER - | | | | | | LABORATORY | | + + + + + + | Globulin | 3.3 | 2.1 - 3.8 g/dL | [facility] | | | | | | [facility] | | | | | | MEDICAL | | | | | | CENTER - | | | | | | LABORATORY | | + + + + + + | Albumin/[place] | 0.7 (L) | 0.8 - 2.0 | [facility] | | | bulin Ratio | | | [facility] | | | | | | MEDICAL | | | | | | CENTER - | | | | | | LABORATORY | | + + + + + + | BUN/Creatin | 20.4 | | [facility] | | | ine [...] [facility] | [address] | [place], [place] | [phone] | | [facility] | | [address] | | | - LABORATORY | | | | + + + + + ECG 12 lead (07/06/2017 2:44 PM PST) + + + + + + | Component | Value | Ref Range | Performed | Pathologist | | | | | At | Signature | + + + + + + | VENTRICULAR | 102 | BPM | [facility] | | | RATE EKG | | | | | + + + + + + | ATRIAL RATE | 102 | BPM | [facility] | | + + + + + + | P-R | 128 | ms | [facility] | | | INTERVAL | | | | | + + + + + + | QRS | 100 | ms | [facility] | | | DURATION | | | | | + + + + + + | Q-T | 394 | ms | [facility] | | | INTERVAL | | | | | + + + + + + | Q-T | 513 | ms | [facility] | | | INTERVAL | | | | | | (CORRECTED) | | | | | + + + + + + | P WAVE AXIS | 68 | degrees | [facility] | | + + + + + + | QRS AXIS | 71 | degrees | [facility] | | + + + + + + | T AXIS | 98 | degrees | [facility] | | + + + + + + | INTERPRETAT | Sinus | | [facility] | | | ION TEXT | tachycardiaPossible Left | | | | | | atrial enlargementLeft | | | | | | ventricular hypertrophy | | | | | | with repolarization | | | | | | abnormalityST & T wave | | | | | | abnormality, consider | | | | | | lateral ischemiaAbnormal | | | | | | ECGWhen compared with | | | | | | ECG of 04-JUL-2017 | | | | | | 13:10,ST & T wave | | | | | | abnormalities are now | | | | | | presente in leads I and | | | | | | aVL: Consider | | | | | | ischemiaConfirmed by | | | | | | HAROON WHATLEY MD ([id number]) | | | | | | on 07/07/2017 7:08:21 AM | | | | + + + + + + + + | Specimen | + + | | + + + + + | Narrative | Performed At | + + + | | | + + + + +---------+ + + | Performing | Address | City/State/Zipcode | Phone Number | | Organization | | | | + +---------+ + + | [facility] | | | | + +---------+ + + XR Chest AP Portable (07/06/2017 2:17 PM PST) + + | Specimen | + + | | + + + + + | Narrative | Performed At | + + + | EXAM: XR CHEST AP PORTABLE dated 07/06/2017 2:17 PM HISTORY: | [facility] | | acute respiratory distress Comparison: July 04, 2017 | | | TECHNIQUE: A single portable view of the chest. FINDINGS: | | | Interval development of perihilar opacities bilaterally. Progressive | | | right lower lobe opacities. No pneumothorax. Stable | | | cardiomediastinal contours. Interval placement of an endotracheal | | | tube. The tip is approximately 2 cm above the ofelia. | | | IMPRESSION - Progressive perihilar opacities bilaterally. These | | | are asymmetrically increased on the right. This could represent | | | cardiogenic or noncardiogenic pulmonary edema. Endotracheal tube | | | tip approximately 2 cm above the ofelia. Dictated and Signed by: | | | Aramis Munoz MD Electronically signed: 07/06/2017 2:23 PM | | + + + + + | Procedure Note | + + | Prudencio, Rad Results In - 07/06/2017 2:26 PM PST EXAM: XR CHEST AP PORTABLE dated | | 07/06/2017 2:17 PMHISTORY: acute respiratory distressComparison: July 04 | | 2018TECHNIQUE: A single portable view of the chest.FINDINGS:Interval development of | | perihilar opacities bilaterally. Progressive rightlower lobe opacities. No | | pneumothorax. Stable cardiomediastinal contours. Interval placement of an endotracheal | | tube. The tip is approximately 2 cm abovethe ofelia. IMPRESSION -Progressive perihilar | | opacities bilaterally. These are asymmetrically increasedon the right. This could | | represent cardiogenic or noncardiogenic pulmonaryedema.Endotracheal tube tip | | approximately 2 cm above the ofelia.Dictated and Signed by: Aramis Munoz MD | | Electronically signed: 07/06/2017 2:23 PM | |Interval development of perihilar opacities bilaterally. Progressive right | |lower lobe opacities. No pneumothorax. Stable cardiomediastinal contours. | |Interval placement of an endotracheal tube. The tip is approximately 2 cm above | |the ofelia. | | | |IMPRESSION - | | | |Progressive perihilar opacities bilaterally. These are asymmetrically increased | |on the right. This could represent cardiogenic or noncardiogenic pulmonary | |edema. | | | |Endotracheal tube tip approximately 2 cm above the ofelia. | | | |Dictated and Signed by: Aramis Munoz MD | | Electronically signed: 07/06/2017 2:23 PM | + + + +---------+ + + | Performing | Address | City/State/Zipcode | Phone Number | | Organization | | | | + +---------+ + + | [facility] | | | | + +---------+ + + Basic Metabolic Panel (07/06/2017 4:30 AM PST) + + + + + + | Component | Value | Ref Range | Performed | Pathologist | | | | | At | Signature | + + + + + + | Na | 131 (L) | 136 - 149 | [facility] | | | | | mmol/L | [facility] | | | | | | MEDICAL | | | | | | CENTER - | | | | | | LABORATORY | | + + + + + + | K | 3.4 (L) | 3.5 - 5.1 | [facility] | | | | | mmol/L | [facility] | | | | | | MEDICAL | | | | | | CENTER - | | | | | | LABORATORY | | + + + + + + | Cl | 101 | 98 - 109 mmol/L | [facility] | | | | | | [facility] | | | [facility] | | MEDICAL | | | | | | CENTER - | | | | | | LABORATORY | | + + + + + + | CO2 | 23 (L) | 24 - 31 mmol/L | [facility] | | | | | | [facility] | | | | | | MEDICAL | | | | | | CENTER - | | | | | | LABORATORY | | + + + + + + | Anion Gap | 7 | 3 - 16 mmol/L | [facility] | | | | | | [facility] | | | | | | MEDICAL | | | | | | CENTER - | | | | | | LABORATORY | | + + + + + + | Glucose | 91 | 70 - 109 mg/dL | [facility] | | | | | | [facility] | | | | | | [facility]ICAL | | | | | | CENTER - | | | | | | LABORATORY | | + + + + + + | BUN | 49 (H) | 7 - 18 mg/dL | [facility] | | | | | | [facility] | | | | | | MEDICAL | | | | | | CENTER - | | | | | | LABORATORY | | + + + + + + | Creatinine | 2.22 (H) | 0.60 - 1.30 | [facility] | | | | | mg/dL | [facility] | | | | | | MEDICAL | | | | | | CENTER - | | | | | | LABORATORY | | + + + + + + | eGFR if not | 25 (L)Comment: | >=60 | [facility] | | | | GLOMERULAR FILTRATION | mL/min/1.73m2 | [facility] | | | [place] | RATE,ESTIMATED | | MEDICAL | | | | mL/min/1.57f6Sxyr than | | CENTER - | | [...] + + + + | Calcium | 7.9 (L) | 8.3 - 10.5 | [facility] | | | | | mg/dL | [facility] | | | | | | MEDICAL | | | | | | CENTER - | | | | | | LABORATORY | | + + + + + + | BUN/Creatin | 22.1 | | [facility] | | | ine Ratio | | | [facility] | | [...] [address] | [place] | [phone] | | [facility] | | [address] | | | - LABORATORY | | | | + + + + + Troponin I (07/06/2017 4:30 AM PST) + + + + + + | Component | Value | Ref Range | Performed | Pathologist | | | | | At | Signature | + + + + + + | Troponin I | 0.15 (H)Comment: | <0.06 ng/mL | [facility] | | | | Reference | | [facility] | | | | Ranges:0.00-0.06 = | | MEDICAL | | | | NORMAL>0.06 = | | CENTER - | | | | SUSPICIOUS FOR | | LABORATORY | | | | MYOCARDIAL DAMAGE NOTE: | | | | | | Values greater than 0.50 | | | | | | ng/mL have been shown | | | | | | to be strongly | | | | | | associated with acute | | | | | | myocardial infarction. | | | | | | The [employer] | | | | | | Cardiology (ACC) | | | | | | recommends a decision | | | | | | limit of 0.06 ng/mL for | | | | | | this assay. Results | | | | | | greater than 0.06 can | | | | | | reflect a pre-infarct | | | | | | acute coronary syndrome, | | | | | | but can also reflect | | | | | | myocardial necrosis or | | | | | | injury that is not due | | | | | | to coronary artery | | | | | | disease. Some of these | | | | | | causes are sepsis, | | | | | | hypocolemia, atrial | | | | | | fibrillation, heart | | | | | | failure, pulmonary | | | | | | embolism, myocarditis, | | | | | | myocardial contusion, | | | | | | and renal failure. The | | | | | | diagnosis of myocardial | | | | | | infarction should be | | | | | | based on a combination | | | | | | of the patient's | | | | | | clinical presentation | | | | | | and the clinical | | | | | | laboratory test results | | | | | | (especially serial | | | | | | troponin levels). | | | | + + + + + + + + | Specimen | + + | Blood | + + + + + + + | Performing | Address | City/State/Zipcode | Phone Number | | Organization | | | | + + + + + | [facility] | [address] | [place] | [phone] | | [facility] | | [address] | | | - LABORATORY | | | | + + + + + Ferritin (07/06/2017 4:30 AM PST) + +-------+ + + + | Component | Value | Ref Range | Performed | Pathologist | | | | | At | Signature | + +-------+ + + + | FERRITIN | 32 | 11 - 307 ng/mL | [facility] | | | | | | [facility] [...] | + + + + + | [facility] | [address] | [place] | [phone] | | [facility] | | [address] | | | - LABORATORY | | | | + + + + + Iron and Transferrin (07/06/2017 4:30 AM PST) + +-------+ + + + | Component | Value | Ref Range | Performed | Pathologist | | | | | At | Signature | + +-------+ + + + | Iron | 134 | 40 - 150 ug/dL | [facility] | | | | | | [facility] | | | | | | MEDICAL | | | | | | CENTER - | | | | | | LABORATORY | | + +-------+ + + + | TRANSFERRIN | 249.3 | 240.0 - 480.0 | [facility] | | | | | mg/dL | [facility] | | | | | | MEDICAL | | | | | | CENTER - | | | | | | LABORATORY | | + +-------+ + + + | TIBC | 349 | 235 - 425 ug/dL | [facility] | | | | | | [facility] | | | | | | MEDICAL | | | | | | CENTER - | | | | | | LABORATORY | | + +-------+ + + + | % | 38.4 | 20.0 - 55.0 % | [facility] | | | SATURATION | | | [facility] | | | | [...] [address] | [place] | [phone] | | [facility] | | [address] | | | - LABORATORY | | | | + + + + + Urinalysis with Microscopic if Indicated (07/05/2017 10:17 PM PST) + + + + + + | Component | Value | Ref Range | Performed | Pathologist | | | | | At | Signature | + + + + + + | Color | Yellow | Light Yellow, | [facility] | | | | | Yellow, Straw | [facility] | | | | | | MEDICAL | | | | | | CENTER - | | | | | | LABORATORY | | + + + + + + | Clarity | Hazy (A) | Clear | [facility] | | | | | | [facility] | | | | | | MEDICAL | | | | | | CENTER - | | | | | | LABORATORY | | + + + + + + | pH, Urine | 6.0 | 5.0 - 8.0 | [facility] | | | | | | [facility] | | | | | | MEDICAL | | | | | | CENTER - | | | | | | LABORATORY | | + + + + + + | Specific | 1.015 | 1.001 - 1.030 | [facility] | | | [place] | | | [facility] | | | | | | MEDICAL | | | | | | CENTER - | | | | | | LABORATORY | | + + + + + + | Protein, | 100 mg/dL (A) | Negative | [facility] | | | Urine | | | [facility] | | | | | | MEDICAL | | | | | | CENTER - | | | | | | LABORATORY | | + + + + + + | Blood, | Moderate (A) | Negative | [facility] | | | Urine | | | [facility] | | | | | | MEDICAL | | | | | | CENTER - | | | | | | LABORATORY | | + + + + + + | Glucose, | Negative | Negative | [facility] | | | Urine | | | [facility] | | | | | | MEDICAL | | | | | | CENTER - | | | | | | LABORATORY | | + + + + + + | Ketones, | Negative | Negative | [facility] | | | Urine | | | [facility] | | | | | | MEDICAL | | | | | | CENTER - | | | | | | LABORATORY | | + + + + + + | Bilirubin, | Negative | Negative | [facility] | | | Urine | | | [facility] | | | | | | MEDICAL | | | | | | CENTER - | | | | | | LABORATORY | | + + + + + + | Nitrite, | Negative | Negative | [facility] | | | Urine | | | [facility] | | | | | | MEDICAL | | | | | | CENTER - | | | | | | LABORATORY | | + + + + + + | Leukocyte | Trace (A) | Negative | [facility] | | | Esterase, | | | [facility] | | | Urine | | | MEDICAL | | | | | | CENTER - | | | | | | LABORATORY | | + + + + + + | Urobilinoge | Negative | 0.2 mg/dL, 1.0 | [facility] | | | n, Urine | | mg/dL, Negative | [facility] | | | | | | MEDICAL | | | | | | CENTER - | | | | | | LABORATORY | | + + + + + + | WBC UA | 2-5 (A) | 0 - 2 /HPF | [facility] | | | | | | [facility] | | | | | | MEDICAL | | | | | | CENTER - | | | | | | LABORATORY | | + + + + + + | RBC UA | 2-5 (A) | 0 - 2 /HPF | [facility] | | | | | | [facility] | | | | | | MEDICAL | | | | | | CENTER - | | | | | | LABORATORY | | + + + + + + | SQUAMOUS | >100 (A) | 0 - 2 /LPF | [facility] | | | EPITHELIAL | | | [facility] | | | UA | | | MEDICAL | | | | | | CENTER - | | | | | | LABORATORY | | + + + + + + | BACTERIA UA | 1+ (A) | Negative /HPF | [facility] | | | | | | [facility] | | | | | | MEDICAL | | | | | | CENTER - | | | | | | LABORATORY | | + + + + + + | HYALINE | 0-2 | 0 - 2 /LPF | [facility] | | | [facility] UA | | | [facility] | | [...] + + + + + | [facility] | [address] | [place] | [phone] | | [facility] | | [address] | | | - LABORATORY | | | | + + + + + CBC with Differential (07/05/2017 7:16 PM PST) + + + + + + | Component | Value | Ref Range | Performed | Pathologist | | | | | At | Signature | + + + + + + | WBC | 9.3 | 4.0 - 11.0 K/uL | [facility] | | | | | | [facility] | | | | | | MEDICAL | | | | | | CENTER - | | | | | | LABORATORY | | + + + + + + | RBC | 2.91 (L) | 3.70 - 5.20 | [facility] | | | | | M/uL | [facility] | | | | | | MEDICAL | | | | | | CENTER - | | | | | | LABORATORY | | + + + + + + | Hemoglobin | 8.0 (L) | 11.5 - 16.0 | [facility] | | | | | g/dL | [facility] | | | | | | MEDICAL | | | | | | CENTER - | | | | | | LABORATORY | | + + + + + + | Hematocrit | 24.3 (L) | 34.0 - 47.0 % | [facility] | | | | | | [facility] | | | | | | MEDICAL | | | | | | CENTER - | | | | | | LABORATORY | | + + + + + + | MCV | 83.5 | 83.0 - 101.0 fL | [facility] | | | | | | [facility] | | | | | | MEDICAL | | | | | | CENTER - | | | | | | LABORATORY | | + + + + + + | MCH | 27.4 (L) | 28.0 - 35.0 pg | [facility] | | | | | | [facility] | | | | | | MEDICAL | | | | | | CENTER - | | | | | | LABORATORY | | + + + + + + | MCHC | 32.8 | 32.0 - 36.0 | [facility] | | | | | g/dL | [facility] | | | | | | MEDICAL | | | | | | CENTER - | | | | | | LABORATORY | | + + + + + + | RDW-CV | 21.5 (H) | <15.0 % | [facility] | | | | | | [facility] | | | | | | MEDICAL | | | | | | CENTER - | | | | | | LABORATORY | | + + + + + + | Platelet | 77 (L) | 140 - 440 K/uL | [facility] | | | Count | | | [facility] | | | | | | MEDICAL | | | | | | CENTER - | | | | | | LABORATORY | | + + + + + + | MPV | 9.2 | fL | [facility] | | | | | | [facility] | | | | | | MEDICAL | | | | | | CENTER - | | | | | | LABORATORY | | + + + + + + | % | 75.4 | 45.0 - 82.0 % | [facility] | | | Neutrophils | | | [facility] | | | | | | MEDICAL | | | | | | CENTER - | | | | | | LABORATORY | | + + + + + + | % | 16.1 (L) | 20.0 - 45.0 % | [facility] | | | Lymphocytes | | | [facility] | | | | | | MEDICAL | | | | | | CENTER - | | | | | | LABORATORY | | + + + + + + | % Monocytes | 6.6 | 4.0 - 12.0 % | [facility] | | | | | | [facility] | | | | | | MEDICAL | | | | | | CENTER - | | | | | | LABORATORY | | + + + + + + | % | 0.9 | 0.0 - 5.0 % | [facility] | | | Eosinophils | | | [facility] | | | | | | MEDICAL | | | | | | CENTER - | | | | | | LABORATORY | | + + + + + + | % Basophils | 1.0 | 0.0 - 1.0 % | [facility] | | | | | | [facility] | | | | | | MEDICAL | | | | | | CENTER - | | | | | | LABORATORY | | + + + + + + | Absolute | 7.00 | 1.80 - 8.50 | [facility] | | | Neutrophils | | K/uL | [facility] | | | | | | MEDICAL | | | | | | CENTER - | | | | | | LABORATORY | | + + + + + + | Absolute | 1.50 | 0.60 - 3.20 | [facility] | | | Lymphocytes | | K/uL | [facility] | | | | | | MEDICAL | | | | | | CENTER - | | | | | | LABORATORY | | + + + + + + | Absolute | 0.60 | 0.00 - 1.00 | [facility] | | | Monocytes | | K/uL | [facility] | | | | | | MEDICAL | | | | | | CENTER - | | | | | | LABORATORY | | + + + + + + | Absolute | 0.10 | 0.00 - 0.40 | [facility] | | | Eosinophils | | K/uL | [facility] | | | | | | MEDICAL | | | | | | CENTER - | | | | | | LABORATORY | | + + + + + + | Absolute | 0.10 | 0.00 - 0.10 | [facility] | | | Basophils | | K/uL | [facility] | | | | [...] [address] | [place] | [phone] | | [facility] | | [address] | | | - LABORATORY | | | | + + + + + Comprehensive Metabolic Panel (07/05/2017 7:16 PM PST) + + + + + + | Component | Value | Ref Range | Performed | Pathologist | | | | | At | Signature | + + + + + + | Na | 131 (L) | 136 - 149 | [facility] | | | | | mmol/L | [facility] | | | | | | MEDICAL | | | | | | CENTER - | | | | | | LABORATORY | | + + + + + + | K | 3.9 | 3.5 - 5.1 | [facility] | | | | | mmol/L | [facility] | | | | | | MEDICAL | | | | | | CENTER - | | | | | | LABORATORY | | + + + + + + | Cl | 98 | 98 - 109 mmol/L | [facility] | | | | | | [facility] | | | | | | MEDICAL | | | | | | CENTER - | | | | | | LABORATORY | | + + + + + + | CO2 | 25 | 24 - 31 mmol/L | [facility] | | | | | | [facility] | | | | | | MEDICAL | | | | | | CENTER - | | | | | | LABORATORY | | + + + + + + | Anion Gap | 8 | 3 - 16 mmol/L | [facility] | | | | | | [facility] | | | | | | MEDICAL | | | | | | CENTER - | | | | | | LABORATORY | | + + + + + + | Glucose | 111 (H) | 70 - 109 mg/dL | [facility] | | | | | | [facility] | | | | | | MEDICAL | | | | | | CENTER - | | | | | | LABORATORY | | + + + + + + | BUN | 44 (H) | 7 - 18 mg/dL | [facility] | | | | | | [facility] | | | | | | MEDICAL | | | | | | CENTER - | | | | | | LABORATORY | | + + + + + + | Creatinine | 2.14 (H) | 0.60 - 1.30 | [facility] | | | | | mg/dL | [facility] | | | | | | MEDICAL | | | | | | CENTER - | | | | | | LABORATORY | | + + + + + + | eGFR if not | 26 (L)Comment: | >=60 | [facility] | | | | GLOMERULAR FILTRATION | mL/min/1.73m2 | [facility] | | | [place] | RATE,ESTIMATED | | MEDICAL | | | | mL/min/1.34k3Rabn than | | CENTER - | | [...] + | Calcium | 8.1 (L) | 8.3 - 10.5 | [facility] | | | | | mg/dL | [facility] | | | | | | [facility]ICAL | | | | | | CENTER - | | | | | | LABORATORY | | + + + + + + | Albumin | 2.3 (L) | 3.2 - 5.0 g/dL | [facility] [...] | | Total | | | [facility] | | | | | | [facility] | | | | | | CENTER - | | | | | | LABORATORY | | + + + + + + | Total | 5.3 (L) | 6.0 - 7.8 g/dL | [facility] | | | Protein | | | [facility] | | | | | | MEDICAL | | | | | | CENTER - | | | | | | LABORATORY | | + + + + + + | AST | 33 | 10 - 42 U/L | [facility] | | | | | | [facility] | | | | | | [facility] | | | | | | CENTER - | | | | | | LABORATORY | | + + + + + + | ALT | 16 | 6 - 45 U/L | [facility] | | | | | | [facility] | | | | | | [facility] | | | | | | CENTER - | | | | | | LABORATORY | | + + + + + + | Alkaline | 54 | 40 - 110 U/L | [facility] | | | Phosphatase | | | [facility] | | | | | | MEDICAL | | | | | | CENTER - | | | | | | LABORATORY | | + + + + + + | Globulin | 3.0 | 2.1 - 3.8 g/dL | [facility] | | | | | | [facility] | | | | | | [facility] | | | | | | CENTER - | | | | | | LABORATORY | | + + + + + + | Albumin/[place] | 0.8 | 0.8 - 2.0 | [facility] | | | bulin Ratio | | | [facility] | | | | | | MEDICAL | | | | | | CENTER - | | | | | | LABORATORY | | + + + + + + | BUN/Creatin | 20.6 | | [facility] | | | ine [...] | + + + + + | [facility] | [address] | [place] | [phone] | | [facility] | | [id number] | | | - LABORATORY | | | | + + + + + CK Total (07/05/2017 7:16 PM PST) + +-------+ + + + | Component | Value | Ref Range | Performed | Pathologist | | | | | At | Signature | + +-------+ + + + | CK TOTAL | 53 | 22 - 269 U/L | [facility] | | | | [...] ST. | [address] | [place], [place] | [phone] | | [facility] | | [address] | | | - LABORATORY | | | | + + + + + Extra Green Top Tube (07/05/2017 7:13 PM PST) + +-------+ + + + | Component | Value | Ref Range | Performed | Pathologist | | | | | At | Signature | + +-------+ + + + | Extra Green | Done | | [facility] | | | Top Tube | | | [facility] | | [...] [address] | [place] | [phone] | | [facility] | | [id number] | | | - LABORATORY | | | | + + + + + US OB 14+ Wks Detail Temi Single/1st (07/05/2017 2:40 PM PST) + + | Specimen | + + | | + + + + + | Narrative | Performed At | + + + | EXAM: US OB 14 + WEEKS DETAIL ANATOMY SINGLE OR FIRST | [facility] | | GESTATION and 07/05/2017 1:34 PM HISTORY: Full anatomy | | | ultrasound. COMPARISON: July 04, 2017 FINDINGS: | | | BPD: 4.8 cm: 20 weeks 3 days HC: 17.8 cm: 20 weeks 2 days AC: 14.6 | | | cm: 20 weeks 0 days FL: 3.2 cm: 20 weeks 0 days EFW: 324 g. | | | Cephalic index: 76(normal range 70.0-86.0) HC/AC ratio: 1.22 | | | (1.09-1.39) Composite estimated gestational age by U/S equals 20 | | | weeks 2 days. heart rate: 156 bpm. The cervix is not | | | well seen. The placenta is posterior, without evidence of placenta | | | previa. The fetus is in breech presentation. Amniotic fluid | | | is subjectively normal. Active motion is seen. The | | | intracranial anatomy, face, nose/lips, four-chamber heart with | | | visible right ventricular outflow tracts, diaphragm, stomach, | | | kidneys, urinary bladder, 3-vessel cord, and upper and lower | | | extremities are unremarkable. No gross anomalies are seen. | | | The left cardiac ventricular outflow tract is not well seen. The | | | cord insertion is not well seen. The spine is not well seen. | | | IMPRESSION - There is a single live intrauterine gestation. | | | Ultrasound dating 20 weeks 2 days. No gross anomalies | | | identified. Recommendation: Consideration for follow-up to | | | reevaluate anatomic structures not well seen and cervical length. | | | Dictated and Signed by: Aramis Munoz MD Electronically signed: | | | 07/05/2017 3:13 PM | | + + + + + | Procedure Note | + + | Prudencio, Rickie Results In - 07/05/2017 3:16 PM PST EXAM: US OB 14 + WEEKS DETAIL | | ANATOMY SINGLE OR FIRST GESTATION and07/05/2017 1:34 PMHISTORY: Full anatomy ultrasound. | | COMPARISON: July 04, 2017FINDINGS:BPD: 4.8 cm: 20 weeks 3 daysHC: 17.8 cm: 20 | | weeks 2 daysAC: 14.6 cm: 20 weeks 0 daysFL: 3.2 cm: 20 weeks 0 daysEFW: 324 g.Cephalic | | index: 76(normal range 70.0-86.0)HC/AC ratio: 1.22 (1.09-1.39)Composite estimated | | gestational age by U/S equals 20 weeks 2 days. heart rate: 156 bpm.The cervix is | | not well seen.The placenta is posterior, without evidence of placenta previa. The fetus | | is in breech presentation. Amniotic fluid is subjectively normal.Active motion is | | seen. The intracranial anatomy, face, nose/lips,four-chamber heart with visible right | | ventricular outflow tracts, diaphragm,stomach, kidneys, urinary bladder, 3-vessel cord, | | and upper and lowerextremities are unremarkable. No gross anomalies are seen. | | The leftcardiac ventricular outflow tract is not well seen. The cord insertion | | isnot well seen. The spine is not well seen.IMPRESSION -There is a single live | | intrauterine gestation.Ultrasound dating 20 weeks 2 days.No gross anomalies | | identified.Recommendation: Consideration for follow-up to reevaluate anatomic | | structuresnot well seen and cervical length.Dictated and Signed by: Aramis Munoz MD | | Electronically signed: 07/05/2017 3:13 PM | | | |Composite estimated gestational age by U/S equals 20 weeks 2 days. | | | | heart rate: 156 bpm. | | | |The cervix is not well seen. | | | |The placenta is posterior, without evidence of placenta previa. | | | |The fetus is in breech presentation. | | | |Amniotic fluid is subjectively normal. | | | |Active motion is seen. The intracranial anatomy, face, nose/lips, | |four-chamber heart with visible right ventricular outflow tracts, diaphragm, | |stomach, kidneys, urinary bladder, 3-vessel cord, and upper and lower | |extremities are unremarkable. No gross anomalies are seen. The left | |cardiac ventricular outflow tract is not well seen. The cord insertion is | |not well seen. The spine is not well seen. | | | |IMPRESSION - | | | |There is a single live intrauterine gestation. | | | |Ultrasound dating 20 weeks 2 days. | | | |No gross anomalies identified. | | | |Recommendation: Consideration for follow-up to reevaluate anatomic structures | |not well seen and cervical length. | | | |Dictated and Signed by: Aramis Munoz MD | | Electronically signed: 07/05/2017 3:13 PM | + + + +---------+ + + | Performing | Address | City/State/Zipcode | Phone Number | | Organization | | | | + +---------+ + + | [facility] | | | | + +---------+ + + ECHO Complete (07/05/2017 7:42 AM PST) + +-------+ + + + | Component | Value | Ref Range | Performed | Pathologist | | | | | At | Signature | + +-------+ + + + | LVEF-TTE | 55 | | [facility] | | | TRANSTHORAC | | | | | | IC ECHO | | | | | + +-------+ + + + + + | Specimen | + + | | + + + +-- + | Narrative | P erformed At | + +-- + | Transthoracic | [facility] | | Echocardiography Report (TTE) Demographics Patient Name VALERIA | | | Room Number 422 | | | AUREA Keita Patient Number [id number] Date of Study | | | 07/05/2017 Visit Number [id number] Accession | | | [id number] Referring Physician BÁRBARA NAZARIO Number | | | Date of 1980 Manager Book | | | KAOSUA MUIR, | | | [facility] Age 37 year(s) | | | Interpreting CAITLIN VALENTE, | | | 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 Procedure dateDate: | | | 07/05/2017Start: 07:10 AM Technical Quality: Adequate | | | visualizationStudy Location: PortableIndications: CHEST PAIN, | | | UNSPECIFIED 786.5/ R07.9 and shortness of breath(Dyspnea) 786.05/ | | | R06.02.Patient Status: RoutineHeight: 66 inchesWeight: 115 poundsBSA: | | | 1.58 m^2BMI: 18.56 kg/m^2Rhythm: Normal Sinus Rhythm | | | ConclusionsSummary1. Normal left ventricular size with a mild | | | concentric left ventricularhypertrophy. Left ventricular systolic | | | function is preserved. LVEF is 55%.2. Grade 1 left ventricular | | | diastolic dysfunction.3. Not well-visualized aortic valve with | | | adequate opening. There is a mildto moderate aortic valve | | | insufficiency. Cannot rule out bicuspid aorticvalve.4. Mildly | | | thickened mitral valve with a mild to moderate mitral | | | valveregurgitation.5. Mild tricuspid valve regurgitation.6. Normal | | | right-sided pressure.7. Normal IVC with normal respiratory collapse. | | | Signature | | | | | | AM | | | -------- FindingsMitral ValveMild to moderate mitral | | | regurgitation.Aortic ValveMild to moderate aortic regurgitation is | | | noted.Aortic valve is not well visualized.Tricuspid ValveStructurally | | | normal tricuspid valve with mild regurgitation.Pulmonic | | | ValveStructurally normal pulmonic valve without significant stenosis | | | orregurgitation.Left AtriumNormal size left atrium.Left | | | VentricleNormal left ventricular cavity size.Mild concentric left | | | ventricular hypertrophy.Ejection fraction is visually estimated at | | | 55%.Impaired relaxation compatible with diastolic dysfunction | | | (reversed E/Aratio).Right AtriumNormal right atrial size.Right | | | VentricleNormal right ventricular size.Right ventricle global systolic | | | function is normal.TAPSE = cm.Pericardial EffusionNo evidence of | | | pericardial effusion.Pleural EffusionNo evidence of pleural | | | effusion.MiscellaneousNormal aortic root.The IVC appears normal | | | size.IVC respiratory change in dimension > 50%. Valves Mitral Valve | | | Peak E-Wave: 1.13 m/s MARCOS PISA: 0.12 | | | cm^2 Peak A-Wave: 0.69 m/s Tissue Doppler Septal e' Velocity: 0.07 | | | m/s Lateral E/e' Ratio0.09 Aortic Valve Peak | | | Velocity: 2.2 m/s Mean Gradient: 9.6 mmHg Peak | | | Gradient: 19.36 mmHg Tricuspid Valve TR Velocity: 2.8 m/s LVOT | | | Peak Velocity: 1.44 m/s Structures Left Atrium LA A/P Dimension: | | | 4.39 cm LA Area: 21.98 cm^2 LA Vol/BSA | | | Index: 46 mL/m^2 LA Volume: 72.22 ml | | | EF | | | [id number]% Left Ventricle Diastolic Dimension: 5.63 cm | | | Systolic Dimension: 3.89 cm Septum Diastolic: 1.43 cm PW Diastolic: | | | 1.31 cm EF Calculated: 57.94% Miscellaneous Aorta Aortic Root: | | | 3.08 cm Ascending Aorta: 3.63 cm | | |Findings | | |Mitral Valve | | |Mild to moderate mitral regurgitation. | | |Aortic Valve | | |Mild to moderate aortic regurgitation is noted. | | |Aortic valve is not well visualized. | | |Tricuspid Valve | | |Structurally normal tricuspid valve with mild regurgitation. | | |Pulmonic Valve | | |Structurally normal pulmonic valve without significant stenosis or | | |regurgitation. | | |Left Atrium | | |Normal size left atrium. | | |Left Ventricle | | |Normal left ventricular cavity size. | | |Mild concentric left ventricular hypertrophy. | | |Ejection fraction is visually estimated at 55%. | | |Impaired relaxation compatible with diastolic dysfunction (reversed E/A | | |ratio). | | |Right Atrium | | |Normal right atrial size. | | |Right Ventricle | | |Normal right ventricular size. | | |Right ventricle global systolic function is normal. | | |TAPSE = cm. | | |Pericardial Effusion | | |No evidence of pericardial effusion. | | |Pleural Effusion | | |No evidence of pleural effusion. | | |Miscellaneous | | |Normal aortic root. | | |The IVC appears normal size. | | |IVC respiratory change in dimension > 50%. | | | | | |Valves | | | | | | Mitral Valve | | | | | | Peak E-Wave: 1.13 m/s MARCOS PISA: 0.12 cm^2 | | | Peak A-Wave: 0.69 m/s | | | | | | Tissue Doppler | | | | | | Septal e' Velocity: 0.07 m/s Lateral E/e' Ratio0.09 | | | | | | Aortic Valve | | | | | | Peak Velocity: 2.2 m/s Mean Gradient: 9.6 mmHg | | | Peak Gradient: 19.36 mmHg | | | | | | Tricuspid Valve | | | | | | TR Velocity: 2.8 m/s | | | | | | LVOT | | | | | | Peak Velocity: 1.44 m/s | | | | | |Structures | | | | | | Left Atrium | | | | | | LA A/P Dimension: 4.39 cm LA Area: 21.98 cm^2 | | | LA Vol/BSA Index: 46 mL/m^2 LA Volume: 72.22 ml | | | EF Cjnvnuunt96% | | | | | | Left Ventricle | | | | | | Diastolic Dimension: 5.63 cm Systolic Dimension: 3.89 cm | | | Septum Diastolic: 1.43 cm | | | PW Diastolic: 1.31 cm | | | EF Calculated: 57.94% | | | | | | Miscellaneous | | | | | | Aorta | | | | | | Aortic Root: 3.08 cm | | | Ascending Aorta: 3.63 cm | | | | | + +-- + + + | Procedure Note | + + | Rickie Flannery Results In - 07/05/2017 10:03 AM [facility] Transthoracic Echocardiography Report | | (TTE) Demographics Patient Name VALERIA Room Number 422 | | AUREA Keita Patient Number [id number] Date of Study 07/05/2017 Visit | | Number [id number] Referring Physician BÁRBARA | | ARAVIND Franco Date of 1980 Manager Book AKOSAU MURI, | | [facility] Age 37 year(s) | | Interpreting CAITLIN VALENTE, Fat Purification Worker | | Gender Female 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 | | Normal left ventricular size with a mild concentric left ventricularhypertrophy. Left | | ventricular systolic function is preserved. LVEF is 55%.2. Grade 1 left ventricular | | diastolic dysfunction.3. Not well-visualized aortic valve with adequate opening. There | | is a mildto moderate aortic valve insufficiency. Cannot rule out bicuspid aorticvalve.4. | | Mildly thickened mitral valve with a mild to moderate mitral valveregurgitation.5. Mild | | tricuspid valve regurgitation.6. Normal right-sided pressure.7. Normal IVC with normal | | respiratory | | collapse.Signature | | ------ Electronically signed by CAITLIN VALENTE MD(Interpreting physician) on | | 07/05/2017 10:03 | | AM FindingsMi | | tral ValveMild to moderate mitral regurgitation.Aortic ValveMild to moderate aortic | | regurgitation is noted.Aortic valve is not well visualized.Tricuspid ValveStructurally | | normal tricuspid valve with mild regurgitation.Pulmonic ValveStructurally normal | | pulmonic valve without significant stenosis orregurgitation.Left AtriumNormal size left | | atrium.Left VentricleNormal left ventricular cavity size.Mild concentric left | | ventricular hypertrophy.Ejection fraction is visually estimated at 55%.Impaired | | relaxation compatible with diastolic dysfunction (reversed E/Aratio).Right AtriumNormal | | right atrial size.Right VentricleNormal right ventricular size.Right ventricle global | | systolic function is normal.TAPSE = cm.Pericardial EffusionNo evidence of pericardial | | effusion.Pleural EffusionNo evidence of pleural effusion.MiscellaneousNormal aortic | | root.The IVC appears normal size.IVC respiratory change in dimension > 50%.Valves Mitral | | Valve Peak E-Wave: 1.13 m/s MARCOS PISA: 0.12 cm^2 Peak A-Wave: 0.69 | | m/s Tissue Doppler Septal e' Velocity: 0.07 m/s Lateral E/e' Ratio0.09 | | Aortic Valve Peak Velocity: 2.2 m/s Mean Gradient: 9.6 mmHg Peak | | Gradient: 19.36 mmHg Tricuspid Valve TR Velocity: 2.8 m/s LVOT Peak Velocity: 1.44 | | m/sStructures Left Atrium LA A/P Dimension: 4.39 cm LA Area: 21.98 | | cm^2 LA Vol/BSA Index: 46 mL/m^2 LA Volume: 72.22 ml | | EF Xjdrwhcci37% Left Ventricle Diastolic Dimension: 5.63 | | cm Systolic Dimension: 3.89 cm Septum Diastolic: 1.43 cm PW Diastolic: 1.31 cm | | EF Calculated: 57.94% Miscellaneous Aorta Aortic Root: 3.08 cm Ascending Aorta: 3.63 cm | |2. Grade 1 left ventricular diastolic dysfunction. | |3. Not well-visualized aortic valve with adequate opening. There is a mild | |to moderate aortic valve insufficiency. Cannot rule out bicuspid aortic | |valve. | |4. Mildly thickened mitral valve with a mild to moderate mitral valve | |regurgitation. | |5. Mild tricuspid valve regurgitation. | |6. Normal right-sided pressure. | |7. Normal IVC with normal respiratory collapse. | | | |Signature | | | | Electronically signed by CAITLIN VALENTE MD(Interpreting physician) on | | 07/05/2017 10:03 AM | | | | | |Findings | |Mitral Valve | |Mild to moderate mitral regurgitation. | |Aortic Valve | |Mild to moderate aortic regurgitation is noted. | |Aortic valve is not well visualized. | |Tricuspid Valve | |Structurally normal tricuspid valve with mild regurgitation. | |Pulmonic Valve | |Structurally normal pulmonic valve without significant stenosis or | |regurgitation. | |Left Atrium | |Normal size left atrium. | |Left Ventricle | |Normal left ventricular cavity size. | |Mild concentric left ventricular hypertrophy. | |Ejection fraction is visually estimated at 55%. | |Impaired relaxation compatible with diastolic dysfunction (reversed E/A | |ratio). | |Right Atrium | |Normal right atrial size. | |Right Ventricle | |Normal right ventricular size. | |Right ventricle global systolic function is normal. | |TAPSE = cm. | |Pericardial Effusion | |No evidence of pericardial effusion. | |Pleural Effusion | |No evidence of pleural effusion. | |Miscellaneous | |Normal aortic root. | |The IVC appears normal size. | |IVC respiratory change in dimension > 50%. | | | |Valves | | | | Mitral Valve | | | | Peak E-Wave: 1.13 m/s MARCOS PISA: 0.12 cm^2 | | Peak A-Wave: 0.69 m/s | | | | Tissue Doppler | | | | Septal e' Velocity: 0.07 m/s Lateral E/e' Ratio0.09 | | | | Aortic Valve | | | | Peak Velocity: 2.2 m/s Mean Gradient: 9.6 mmHg | | Peak Gradient: 19.36 mmHg | | | | Tricuspid Valve | | | | TR Velocity: 2.8 m/s | | | | LVOT | | | | Peak Velocity: 1.44 m/s | | | |Structures | | | | Left Atrium | | | | LA A/P Dimension: 4.39 cm LA Area: 21.98 cm^2 | | LA Vol/BSA Index: 46 mL/m^2 LA Volume: 72.22 ml | | EF Farzhkfyv20% | | | | Left Ventricle | | | | Diastolic Dimension: 5.63 cm Systolic Dimension: 3.89 cm | | Septum Diastolic: 1.43 cm | | PW Diastolic: 1.31 cm | | EF Calculated: 57.94% | | | | Miscellaneous | | | | Aorta | | | | Aortic Root: 3.08 cm | | Ascending Aorta: 3.63 cm | + + + +---------+ + + | Performing | Address | City/State/Zipcode | Phone Number | | Organization | | | | + +---------+ + + | [facility] | | | | + +---------+ + + Magnesium (07/05/2017 3:53 AM PST) + +-------+ + + + | Component | Value | Ref Range | Performed | Pathologist | | | | | At | Signature | + +-------+ + + + | Magnesium | 2.1 | 1.8 - 2.5 mg/dL | [facility] | | | | [...] + | [facility] | [address] | [place] | [phone] | | [facility] | | [id number] | | | - LABORATORY | | | | + + + + + Troponin I (07/05/2017 3:53 AM PST) + + + + + + | Component | Value | Ref Range | Performed | Pathologist | | | | | At | Signature | + + + + + + | Troponin I | 0.23 (H)Comment: | <0.06 ng/mL | [facility] | | | | Reference | | [facility] | | | | Ranges:0.00-0.06 = | | MEDICAL | | | | NORMAL>0.06 = | | CENTER - | | | | SUSPICIOUS FOR | | LABORATORY | | | | MYOCARDIAL DAMAGE NOTE: | | | | | | Values greater than 0.50 | | | | | | ng/mL have been shown | | | | | | to be strongly | | | | | | associated with acute | | | | | | myocardial infarction. | | | | | | The [employer] | | | | | | Cardiology (ACC) | | | | | | recommends a decision | | | | | | limit of 0.06 ng/mL for | | | | | | this assay. Results | | | | | | greater than 0.06 can | | | | | | reflect a pre-infarct | | | | | | acute coronary syndrome, | | | | | | but can also reflect | | | | | | myocardial necrosis or | | | | | | injury that is not due | | | | | | to coronary artery | | | | | | disease. Some of these | | | | | | causes are sepsis, | | | | | | hypocolemia, atrial | | | | | | fibrillation, heart | | | | | | failure, pulmonary | | | | | | embolism, myocarditis, | | | | | | myocardial contusion, | | | | | | and renal failure. The | | | | | | diagnosis of myocardial | | | | | | infarction should be | | | | | | based on a combination | | | | | | of the patient's | | | | | | clinical presentation | | | | | | and the clinical | | | | | | laboratory test results | | | | | | (especially serial | | | | | | troponin levels). | | | | + + + + + + + + | Specimen | + + | Blood | + + + + + + + | Performing | Address | City/State/Zipcode | Phone Number | | Organization | | | | + + + + + | [facility] | [address] | [place], [place] | [phone] | | [facility] | | [address] | | | - LABORATORY | | | | + + + + + Troponin I (07/04/2017 9:51 PM PST) + + + + + + | Component | Value | Ref Range | Performed | Pathologist | | | | | At | Signature | + + + + + + | Troponin I | 0.22 (H)Comment: | <0.06 ng/mL | [facility] | | | | Reference | | [facility] | | | | Ranges:0.00-0.06 = | | MEDICAL | | | | NORMAL>0.06 = | | CENTER - | | | | SUSPICIOUS FOR | | LABORATORY | | | | MYOCARDIAL DAMAGE NOTE: | | | | | | Values greater than 0.50 | | | | | | ng/mL have been shown | | | | | | to be strongly | | | | | | associated with acute | | | | | | myocardial infarction. | | | | | | The [employer] | | | | | | Cardiology (ACC) | | | | | | recommends a decision | | | | | | limit of 0.06 ng/mL for | | | | | | this assay. Results | | | | | | greater than 0.06 can | | | | | | reflect a pre-infarct | | | | | | acute coronary syndrome, | | | | | | but can also reflect | | | | | | myocardial necrosis or | | | | | | injury that is not due | | | | | | to coronary artery | | | | | | disease. Some of these | | | | | | causes are sepsis, | | | | | | hypocolemia, atrial | | | | | | fibrillation, heart | | | | | | failure, pulmonary | | | | | | embolism, myocarditis, | | | | | | myocardial contusion, | | | | | | and renal failure. The | | | | | | diagnosis of myocardial | | | | | | infarction should be | | | | | | based on a combination | | | | | | of the patient's | | | | | | clinical presentation | | | | | | and the clinical | | | | | | laboratory test results | | | | | | (especially serial | | | | | | troponin levels). | | | | + + + + + + + + | Specimen | + + | Blood | + + + + + + + | Performing | Address | City/State/Zipcode | Phone Number | | Organization | | | | + + + + + | [facility] | [address] | [place], [place] | [phone] | | [facility] | | [address] | | | - LABORATORY | | | | + + + + + Extra Blue Top Tube (07/04/2017 8:13 PM PST) + +-------+ + + + | Component | Value | Ref Range | Performed | Pathologist | | | | | At | Signature | + +-------+ + + + | Extra Blue | Done | | [facility] | | | Top Tube | | | [facility] | | [...] [address] | [place] | [phone] | | [facility] | | [address] | | | - LABORATORY | | | | + + + + + Extra Green Top Tube (07/04/2017 8:13 PM PST) + +-------+ + + + | Component | Value | Ref Range | Performed | Pathologist | | | | | At | Signature | + +-------+ + + + | Extra Green | Done | | [facility] | | | Top Tube | | | [facility] | | [...] + | [facility] | [address] | [place] | [phone] | | [facility] | | [address] | | | - LABORATORY | | | | + + + + + Rapid Plasma Reagin, Qual (07/04/2017 8:00 PM PST) + + + + + + | Component | Value | Ref Range | Performed | Pathologist | | | | | At | Signature | + + + + + + | Rapid | Non-Reactive | Non-Reactive | [facility] | | | Plasma | | | [facility] | | | Reagin | | | MEDICAL | | | [...] + | [facility] | [address] | [place] | [phone] | | [facility] | | [address] | | | - LABORATORY | | | | + + + + + Hepatitis B Surface Ag (07/04/2017 8:00 PM PST) + + + + + + | Component | Value | Ref Range | Performed | Pathologist | | | | | At | Signature | + + + + + + | Hepatitis B | Negative | Negative | [facility] | | | Surface Ag | | | LAB [facility] | | | | | | - [facility] | | + + + + + + + + | Specimen | + + | Blood | + + + + + | Narrative | Performed At | + + + | Performed at: [address] [address], | REFERENCE LAB | | [place], [place] [id number] [employer] Lecturer: Jonah Parekh MD, Phone: | [place] [facility] [place] | | [phone] | | + + + + + + + + | Performing | Address | City/State/Zipcode | Phone Number | | Organization | | | | + + + + + | [facility] | [address] | [place] [address] | [phone] | | [facility] | [address] | | | + + + + + Type and Screen (07/04/2017 7:45 PM PST) + + + + + + | Component | Value | Ref Range | Performed | Pathologist | | | | | At | Signature | + + + + + + | ABO | A | | [facility] | | | | | | [facility] | | | | | | MEDICAL | | | | | | CENTER - | | | | | | BLOOD BANK | | + + + + + + | Rh Type | Positive | | [facility] | | | | | | [facility] | | | | | | MEDICAL | | | | | | CENTER - | | | | | | BLOOD BANK | | + + + + + + | Antibody | Negative | | [facility] | | | Screen | | | [facility] | | | | | | MEDICAL | | | | | | CENTER - | | | | | | BLOOD BANK | | + + + + + + + + | Specimen | + + | Blood | + + + + + + + | Performing | Address | City/State/Zipcode | Phone Number | | Organization | | | | + + + + + | [facility] | [address] | [place] | | | [facility] | | [address] | | | - BLOOD BANK | | | | + + + + + HIV Type 1 and 2 Ab Screen, Rapid (07/04/2017 7:20 PM PST) + + + + + + | Component | Value | Ref Range | Performed | Pathologist | | | | | At | Signature | + + + + + + | HIV 1 and 2 | Non-Reactive | Non-Reactive | [facility] | | | Ab, Rapid | | | [facility] | | | | | | MEDICAL | | | | | | CENTER - | | | | | | LABORATORY | | + + + + + + | HIV-1 P24 | Non-Reactive | Non-Reactive | [facility] | | | Ag | | | [facility] | | | | | | MEDICAL [...] [address] | [place] | [phone] | | [facility] | | [address] | | | - LABORATORY | | | | + + + + + TSH (07/04/2017 7:17 PM PST) + + + + + + | Component | Value | Ref Range | Performed | Pathologist | | | | | At | Signature | + + + + + + | TSH | 0.45Comment: All TSH | 0.34 - 5.60 | [facility] | | | | samples are screened | uIU/mL | [facility] | | | | using a 2nd Generation | | MEDICAL | | | | test, and are reflexed | | CENTER - | | | | to a 3rd Generation test | | LABORATORY | | | | if indicated. | | | | + + + + + + + + | Specimen | + + | Blood | + + + + + + + | Performing | Address | City/State/Zipcode | Phone Number | | Organization | | | | + + + + + | [facility] | [address] | [place] | [phone] | | [facility] | | [address] | | | - LABORATORY | | | | + + + + + US OB Limited 1 or More Fetus (07/04/2017 4:28 PM PST) + + | Specimen | + + | | + + + + + | Narrative | Performed At | + + + | TECHNIQUE: Routine transabdominal imaging of the uterus. | [facility] | | CLINICAL INFORMATION: CHEST PAIN. COMPARISON: None available. | | | FINDINGS: Limited examination due to patient's inability to remain | | | still. Intrauterine gestation(s): Single presentation: | | | Cephalic. Placenta location: Posterior. Cervix: Not well | | | visualized. MEASUREMENTS: Femur length: 3.21 cm, corresponding to | | | 20 weeks 0 days. Amniotic fluid: Appears normal. heart rate: | | | Heart motion was visualized but rate was not able to be obtained due | | | to exam difficulty as above. IMPRESSION - Limited evaluation | | | due to the patient's inability to remain still during the | | | examination. Single intrauterine with limited dating as | | | above. Recommend follow-up sonogram to assess anatomy. | | | Dictated and Signed by: Paul Mc MD Electronically signed: | | | 07/04/2017 5:36 PM | | + + + + + | Procedure Note | + + | Prudencio, Rad Results In - 07/04/2017 5:39 PM PST TECHNIQUE: Routine transabdominal | | imaging of the uterus.CLINICAL INFORMATION: CHEST PAIN.COMPARISON: None | | available.FINDINGS:Limited examination due to patient's inability to remain | | still.Intrauterine gestation(s): Single presentation: Cephalic. Placenta location: | | Posterior.Cervix: Not well visualized.MEASUREMENTS:Femur length: 3.21 cm, | | corresponding to 20 weeks 0 days.Amniotic fluid: Appears normal. heart rate: Heart | | motion was visualized but rate was not able to beobtained due to exam difficulty as | | above.IMPRESSION - Limited evaluation due to the patient's inability to remain still | | during theexamination. Single intrauterine with limited dating as | | above.Recommend follow-up sonogram to assess anatomy.Dictated and Signed by: | | Paul Mc MD Electronically signed: 07/04/2017 5:36 PM | |Placenta location: Posterior. | |Cervix: Not well visualized. | | | |MEASUREMENTS: | |Femur length: 3.21 cm, corresponding to 20 weeks 0 days. | |Amniotic fluid: Appears normal. | | heart rate: Heart motion was visualized but rate was not able to be | |obtained due to exam difficulty as above. | | | | | |IMPRESSION - | |Limited evaluation due to the patient's inability to remain still during the | |examination. | | | |Single intrauterine with limited dating as above. | | | |Recommend follow-up sonogram to assess anatomy. | | | |Dictated and Signed by: Paul Mc MD | | Electronically signed: 07/04/2017 5:36 PM | + + + +---------+ + + | Performing | Address | City/State/Zipcode | Phone Number | | Organization | | | | + +---------+ + + | [facility] | | | | + +---------+ + + Drugs of Abuse, Screen, Urine (07/04/2017 2:17 PM PST) + + + + + + | Component | Value | Ref Range | Performed | Pathologist | | | | | At | Signature | + + + + + + | Amphetamine | Positive (A) | Negative | [facility] | | | Screen, | | | [facility] | | | Urine | | | MEDICAL | | | | | | CENTER - | | | | | | LABORATORY | | + + + + + + | Barbiturate | Negative | Negative | [facility] | | | s Screen, | | | [facility] | | | Urine | | | MEDICAL | | | | | | CENTER - | | | | | | LABORATORY | | + + + + + + | Benzodiazep | Negative | Negative | [facility] | | | jony | | | [facility] | | | Screen, | | | MEDICAL | | | Urine | | | CENTER - | | | | | | LABORATORY | | + + + + + + | Cannabinoid | Positive (A) | Negative | [facility] | | | s Screen, | | | [facility] | | | Urine | | | MEDICAL | | | | | | CENTER - | | | | | | LABORATORY | | + + + + + + | Cocaine | Negative | Negative | [facility] | | | Screen, | | | [facility] | | | Urine | | | MEDICAL | | | | | | CENTER - | | | | | | LABORATORY | | + + + + + + | Methadone | Negative | Negative | [facility] | | | Screen, | | | [facility] | | | Urine | | | MEDICAL | | | | | | CENTER - | | | | | | LABORATORY | | + + + + + + | Opiates | Negative | Negative | [facility] | | | Screen, | | | [facility] | | | Urine | | | MEDICAL | | | | | | CENTER - | | | | | | LABORATORY | | + + + + + + + + | Specimen | + + | Urine | + + + + + + + | Performing | Address | City/State/Zipcode | Phone Number | | Organization | | | | + + + + + | [facility] | [address] | [place] | [phone] | | [facility] | | [address] | | | - LABORATORY | | | | + + + + + XR Chest AP Portable (07/04/2017 2:06 PM PST) + + | Specimen | + + | | + + + + + | Narrative | Performed At | + + + | CLINICAL INFORMATION: CHEST PAIN. COMPARISON: None available. | [facility] | | FINDINGS: Portable frontal chest radiograph. Lungs: Patchy | | | airspace opacities are noted at the right lung base. No pleural | | | effusion or pneumothorax. Heart/mediastinum: Cardiac silhouette | | | is of normal size. Central pulmonary vasculature has a normal | | | appearance. Bones: No acute osseous abnormality appreciated. | | | IMPRESSION - Findings are most consistent with right lower lung | | | pneumonia in the appropriate clinical setting. Dictated and | | | Signed by: Paul Mc MD Electronically signed: 07/04/2017 | | | 2:58 PM | | + + + + + | Procedure Note | + + | Prudencio, Rickie Results In - 07/04/2017 3:01 PM PST | | CLINICAL INFORMATION: CHEST PAIN. | | | | COMPARISON: None available. | | | | FINDINGS: | | Portable frontal chest radiograph. | | | | Lungs: Patchy airspace opacities are noted at the right lung base. No pleural | | effusion or pneumothorax. | | | | Heart/mediastinum: Cardiac silhouette is of normal size. Central pulmonary | | vasculature has a normal appearance. | | | | Bones: No acute osseous abnormality appreciated. | | | | IMPRESSION - Findings are most consistent with right lower lung pneumonia in the | | appropriate clinical setting. | | | | Dictated and Signed by: Paul Mc MD | | Electronically signed: 07/04/2017 2:58 PM | + + + +---------+ + + | Performing | Address | City/State/Zipcode | Phone Number | | Organization | | | | + +---------+ + + | [facility] | | | | + +---------+ + + Uric Acid (07/04/2017 1:57 PM PST) + +-------+ + + + | Component | Value | Ref Range | Performed | Pathologist | | | | | At | Signature | + +-------+ + + + | Uric Acid | 5.3 | 2.6 - 7.2 mg/dL | [facility] | | | | [...] + | [facility] | [address] | [place] | [phone] | | [facility] | | [address] | | | - LABORATORY | | | | + + + + + Urinalysis with Microscopic with Culture if Indicated (07/04/2017 1:57 PM PST) + + + + + + | Component | Value | Ref Range | Performed | Pathologist | | | | | At | Signature | + + + + + + | Color | Straw | Light Yellow, | [facility] | | | | | Yellow, Straw | [facility] | | | | | | MEDICAL | | | | | | CENTER - | | | | | | LABORATORY | | + + + + + + | Clarity | Clear | Clear | [facility] | | | | | | [facility] | | | | | | MEDICAL | | | | | | CENTER - | | | | | | LABORATORY | | + + + + + + | pH, Urine | 7.0 | 5.0 - 8.0 | [facility] | | | | | | [facility] | | | | | | MEDICAL | | | | | | CENTER - | | | | | | LABORATORY | | + + + + + + | Specific | 1.010 | 1.001 - 1.030 | [facility] | | | [place] | | | [facility] | | | | | | MEDICAL | | | | | | CENTER - | | | | | | LABORATORY | | + + + + + + | Protein, | 100 mg/dL (A) | Negative | [facility] | | | Urine | | | [facility] | | | | | | MEDICAL | | | | | | CENTER - | | | | | | LABORATORY | | + + + + + + | Blood, | Small (A) | Negative | [facility] | | | Urine | | | [facility] | | | | | | MEDICAL | | | | | | CENTER - | | | | | | LABORATORY | | + + + + + + | Glucose, | 50 mg/dL (A) | Negative | [facility] | | | Urine | | | [facility] | | | | | | MEDICAL | | | | | | CENTER - | | | | | | LABORATORY | | + + + + + + | Ketones, | Negative | Negative | [facility] | | | Urine | | | [facility] | | | | | | MEDICAL | | | | | | CENTER - | | | | | | LABORATORY | | + + + + + + | Bilirubin, | Negative | Negative | [facility] | | | Urine | | | [facility] | | | | | | MEDICAL | | | | | | CENTER - | | | | | | LABORATORY | | + + + + + + | Nitrite, | Negative | Negative | [facility] | | | Urine | | | [facility] | | | | | | MEDICAL | | | | | | CENTER - | | | | | | LABORATORY | | + + + + + + | Leukocyte | Negative | Negative | [facility] | | | Esterase, | | | [facility] | | | Urine | | | MEDICAL | | | | | | CENTER - | | | | | | LABORATORY | | + + + + + + | Urobilinoge | Negative | 0.2 mg/dL, 1.0 | [facility] | | | n, Urine | | mg/dL, Negative | [facility] | | | | | | MEDICAL | | | | | | CENTER - | | | | | | LABORATORY | | + + + + + + | WBC UA | 0-2 | 0 - 2 /HPF | [facility] | | | | | | [facility] | | | | | | MEDICAL | | | | | | CENTER - | | | | | | LABORATORY | | + + + + + + | RBC UA | 0-2 | 0 - 2 /HPF | [facility] | | | | | | [facility] | | | | | | MEDICAL | | | | | | CENTER - | | | | | | LABORATORY | | + + + + + + | SQUAMOUS | 25-50 (A) | 0 - 2 /LPF | [facility] | | | EPITHELIAL | | | [facility] | | | UA | | | MEDICAL | | | | | | CENTER - | | | | | | LABORATORY | | + + + + + + | RENAL | 0-2 | 0 - 2 /HPF | [facility] | | | EPITHELIAL | | | [facility] | | | UA | | | MEDICAL | | | | | | CENTER - | | | | | | LABORATORY | | + + + + + + | BACTERIA UA | Negative | Negative /HPF | [facility] | | | | | | [facility] | | | | | | MEDICAL | | | | | | CENTER - | | | | | | LABORATORY | | + + + + + + | URINE | Urine Culture Not | | [facility] | | | COMMENT | Indicated | | [facility] | | | | | | MEDICAL | | | | | | CENTER - | | | | | | LABORATORY | | + + + + + + + + | Specimen | + + | Urine | + + + + + + + | Performing | Address | City/State/Zipcode | Phone Number | | Organization | | | | + + + + + | [facility] | [address] | [place] | [phone] | | [facility] | | [address] | | | - LABORATORY | | | | + + + + + HCG, Serum, Quant (07/04/2017 1:57 PM PST) + + + + + + | Component | Value | Ref Range | Performed | Pathologist | | | | | At | Signature | + + + + + + | hCG Quant, | 175,609 (H)Comment: | 0 - 1 mIU/mL | [facility] | | | Serum | REFERENCE RANGE: | | [facility] | | | | | | MEDICAL | | | | B-hCG | | CENTER - | | | | LEVELGestational Age | | LABORATORY | | | | Expected hCG | | | | | | Values | | | | | | | | | | | | 0 | | | | | | .2-1 week | | | | | | 5-50 | | | | | | mIU/mL1-2 weeks | | | | | | 50-500 | | | | | | mIU/mL2-3 weeks | | | | | | 100-5,000 | | | | | | mIU/mL3-4 weeks | | | | | | 500-10,000 | | | | | | mIU/mL4-5 weeks | | | | | | 1,000-50,000 | | | | | | mIU/mL5-6 weeks | | | | | | 10,000-100,000 | | | | | | mIU/mL6-8 weeks | | | | | | 15,000-200,000 | | | | | | mIU/mL2-3 months | | | | | | 10,000-100,000 | | | | | | mIU/mL | | | | + + + + + + + + | Specimen | + + | Blood | + + + + + + + | Performing | Address | City/State/Zipcode | Phone Number | | Organization | | | | + + + + + | [facility] | [address] | [place] | [phone] | | [facility] | | [address] | | | - LABORATORY | | | | + + + + + Troponin I (07/04/2017 1:57 PM PST) + + + + + + | Component | Value | Ref Range | Performed | Pathologist | | | | | At | Signature | + + + + + + | Troponin I | 0.15 (H)Comment: | <0.06 ng/mL | [facility] | | | | Reference | | [facility] | | | | Ranges:0.00-0.06 = | | MEDICAL | | | | NORMAL>0.06 = | | CENTER - | | | | SUSPICIOUS FOR | | LABORATORY | | | | MYOCARDIAL DAMAGE NOTE: | | | | | | Values greater than 0.50 | | | | | | ng/mL have been shown | | | | | | to be strongly | | | | | | associated with acute | | | | | | myocardial infarction. | | | | | | The [employer] | | | | | | Cardiology (ACC) | | | | | | recommends a decision | | | | | | limit of 0.06 ng/mL for | | | | | | this assay. Results | | | | | | greater than 0.06 can | | | | | | reflect a pre-infarct | | | | | | acute coronary syndrome, | | | | | | but can also reflect | | | | | | myocardial necrosis or | | | | | | injury that is not due | | | | | | to coronary artery | | | | | | disease. Some of these | | | | | | causes are sepsis, | | | | | | hypocolemia, atrial | | | | | | fibrillation, heart | | | | | | failure, pulmonary | | | | | | embolism, myocarditis, | | | | | | myocardial contusion, | | | | | | and renal failure. The | | | | | | diagnosis of myocardial | | | | | | infarction should be | | | | | | based on a combination | | | | | | of the patient's | | | | | | clinical presentation | | | | | | and the clinical | | | | | | laboratory test results | | | | | | (especially serial | | | | | | troponin levels). | | | | + + + + + + + + | Specimen | + + | Blood | + + + + + + + | Performing | Address | City/State/Zipcode | Phone Number | | Organization | | | | + + + + + | [facility] | [address] | [place], [place] | [phone] | | [facility] | | [address] | | | - LABORATORY | | | | + + + + + Comprehensive Metabolic Panel (07/04/2017 1:57 PM PST) + + + + + + | Component | Value | Ref Range | Performed | Pathologist | | | | | At | Signature | + + + + + + | Na | 129 (L) | 136 - 149 | [facility] | | | | | mmol/L | [facility] | | | | | | MEDICAL | | | | | | CENTER - | | | | | | LABORATORY | | + + + + + + | K | 2.6 (L) | 3.5 - 5.1 | [facility] | | | | | mmol/L | [facility] | | | | | | MEDICAL | | | | | | CENTER - | | | | | | LABORATORY | | + + + + + + | Cl | 91 (L) | 98 - 109 mmol/L | [facility] | | | | | | [facility] | | | | | | MEDICAL | | | | | | CENTER - | | | | | | LABORATORY | | + + + + + + | CO2 | 27 | 24 - 31 mmol/L | [facility] [...] + + + + | Glucose | 122 (H) | 70 - 109 mg/dL | [facility] | | | | | | [facility] | | | | | | MEDICAL | | | | | | CENTER - | | | | | | LABORATORY | | + + + + + + | BUN | 41 (H) | 7 - 18 mg/dL | [facility] | | | | | | [facility] | | | | | | MEDICAL | | | | | | CENTER - | | | | | | LABORATORY | | + + + + + + | Creatinine | 2.13 (H) | 0.60 - 1.30 | [facility] | | | | | mg/dL | [facility] | | | | | | MEDICAL | | | | | | CENTER - | | | | | | LABORATORY | | + + + + + + | eGFR if not | 26 (L)Comment: | >=60 | [facility] | | | | GLOMERULAR FILTRATION | mL/min/1.73m2 | [facility] | | | [place] | RATE,ESTIMATED | | MEDICAL | | | | mL/min/1.09s6Bryu than | | CENTER - | | [...] + + | Calcium | 8.5 | 8.3 - 10.5 | [facility] | | | | | mg/dL | [facility] | | | | | | MEDICAL | | | | | | CENTER - | | | | | | LABORATORY | | + + + + + + | Albumin | 2.7 (L) | 3.2 - 5.0 g/dL | [facility] | | | | | | [facility] | | | | | | MEDICAL | | | | | | CENTER - | | | | | | LABORATORY | | + + + + + + | Bilirubin | 0.8Comment: This is an | 0.1 - 1.5 mg/dL | [facility] | | | Total | appended report. These | | [facility] | | | | results have been | | MEDICAL | | | | appended to a previously | | CENTER - | | | | preliminary verified | | LABORATORY | | | | report. | | | | + + + + + + | Total | 5.9 (L) | 6.0 - 7.8 g/dL | [facility] | | | Protein | | | [facility] | | | | | | MEDICAL | | | | | | CENTER - | | | | | | LABORATORY | | + + + + + + | AST | 39Comment: This is an | 10 - 42 U/L | [facility] | | | | appended report. These | | [facility] | | | | results have been | | MEDICAL | | | | appended to a previously | | CENTER - | | | | preliminary verified | | LABORATORY | | | | report. | | | | + + + + + + | ALT | 18Comment: This is an | 6 - 45 U/L | [facility] | | | | appended report. These | | [facility] | | | | results have been | | MEDICAL | | | | appended to a previously | | CENTER - | | | | preliminary verified | | LABORATORY | | | | report. | | | | + + + + + + | Alkaline | 58Comment: This is an | 40 - 110 U/L | [facility] | | | Phosphatase | appended report. These | | [facility] | | | | results have been | | MEDICAL | | | | appended to a previously | | CENTER - | | | | preliminary verified | | LABORATORY | | | | report. | | | | + + + + + + | Globulin | 3.2 | 2.1 - 3.8 g/dL | [facility] | | | | | | [facility] | | | | | | MEDICAL | | | | | | CENTER - | | | | | | LABORATORY | | + + + + + + | Albumin/[place] | 0.8 | 0.8 - 2.0 | [facility] | | | bulin Ratio | | | [facility] | | | | | | MEDICAL | | | | | | CENTER - | | | | | | LABORATORY | | + + + + + + | BUN/Creatin | 19.2 | | [facility] | | | ine [...] + | [facility] | [address] | [place] | [phone] | | [facility] | | [address] | | | - LABORATORY | | | | + + + + + CBC with Differential (07/04/2017 1:57 PM PST) + + + + + + | Component | Value | Ref Range | Performed | Pathologist | | | | | At | Signature | + + + + + + | WBC | 14.2 (H) | 4.0 - 11.0 K/uL | [facility] | | | | | | [facility] | | | | | | MEDICAL | | | | | | CENTER - | | | | | | LABORATORY | | + + + + + + | RBC | 3.07 (L) | 3.70 - 5.20 | [facility] | | | | | M/uL | [facility] | | | | | | MEDICAL | | | | | | CENTER - | | | | | | LABORATORY | | + + + + + + | Hemoglobin | 8.2 (L) | 11.5 - 16.0 | [facility] | | | | | g/dL | [facility] | | | | | | MEDICAL | | | | | | CENTER - | | | | | | LABORATORY | | + + + + + + | Hematocrit | 25.3 (L) | 34.0 - 47.0 % | [facility] | | | | | | [facility] | | | | | | MEDICAL | | | | | | CENTER - | | | | | | LABORATORY | | + + + + + + | MCV | 82.5 (L) | 83.0 - 101.0 fL | [facility] | | | | | | [facility] | | | | | | MEDICAL | | | | | | CENTER - | | | | | | LABORATORY | | + + + + + + | MCH | 26.8 (L) | 28.0 - 35.0 pg | [facility] | | | | | | [facility] | | | | | | MEDICAL | | | | | | CENTER - | | | | | | LABORATORY | | + + + + + + | MCHC | 32.5 | 32.0 - 36.0 | [facility] | | | | | g/dL | [facility] | | | | | | MEDICAL | | | | | | CENTER - | | | | | | LABORATORY | | + + + + + + | RDW-CV | 21.0 (H) | <15.0 % | [facility] | | | | | | [facility] | | | | | | MEDICAL | | | | | | CENTER - | | | | | | LABORATORY | | + + + + + + | Platelet | 77 (L) | 140 - 440 K/uL | [facility] | | | Count | | | [facility] | | | | | | MEDICAL | | | | | | CENTER - | | | | | | LABORATORY | | + + + + + + | MPV | 8.4 | fL | [facility] | | | | | | [facility] | | | | | | MEDICAL | | | | | | CENTER - | | | | | | LABORATORY | | + + + + + + | % | 87.3 (H) | 45.0 - 82.0 % | [facility] | | | Neutrophils | | | [facility] | | | | | | MEDICAL | | | | | | CENTER - | | | | | | LABORATORY | | + + + + + + | % | 7.8 (L) | 20.0 - 45.0 % | [facility] | | | Lymphocytes | | | [facility] | | | | | | MEDICAL | | | | | | CENTER - | | | | | | LABORATORY | | + + + + + + | % Monocytes | 4.1 | 4.0 - 12.0 % | [facility] | | | | | | [facility] | | | | | | MEDICAL | | | | | | CENTER - | | | | | | LABORATORY | | + + + + + + | % | 0.4 | 0.0 - 5.0 % | [facility] | | | Eosinophils | | | [facility] | | | | | | MEDICAL | | | | | | CENTER - | | | | | | LABORATORY | | + + + + + + | % Basophils | 0.4 | 0.0 - 1.0 % | [facility] | | | | | | [facility] | | | | | | MEDICAL | | | | | | CENTER - | | | | | | LABORATORY | | + + + + + + | Absolute | 12.40 (H) | 1.80 - 8.50 | [facility] | | | Neutrophils | | K/uL | [facility] | | | | | | MEDICAL | | | | | | CENTER - | | | | | | LABORATORY | | + + + + + + | Absolute | 1.10 | 0.60 - 3.20 | [facility] | | | Lymphocytes | | K/uL | [facility] | | | | | | MEDICAL | | | | | | CENTER - | | | | | | LABORATORY | | + + + + + + | Absolute | 0.60 | 0.00 - 1.00 | [facility] | | | Monocytes | | K/uL | [facility] | | | | | | MEDICAL | | | | | | CENTER - | | | | | | LABORATORY | | + + + + + + | Absolute | 0.10 | 0.00 - 0.40 | [facility] | | | Eosinophils | | K/uL | [facility] | | | | | | MEDICAL | | | | | | CENTER - | | | | | | LABORATORY | | + + + + + + | Absolute | 0.10 | 0.00 - 0.10 | [facility] | | | Basophils | | K/uL | [facility] | | | | [...] | + + + + + | [facility] | [address] | [place] | [phone] | | [facility] | | [address] | | | - LABORATORY | | | | + + + + + ECG 12 lead (07/04/2017 1:10 PM PST) + + + + + + | Component | Value | Ref Range | Performed | Pathologist | | | | | At | Signature | + + + + + + | VENTRICULAR | 97 | BPM | [facility] | | | RATE EKG | | | | | + + + + + + | ATRIAL RATE | 97 | BPM | [facility] | | + + + + + + | P-R | 128 | ms | [facility] | | | INTERVAL | | | | | + + + + + + | QRS | 98 | ms | [facility] | | | DURATION | | | | | + + + + + + | Q-T | 438 | ms | [facility] | | | INTERVAL | | | | | + + + + + + | Q-T | 556 | ms | [facility] | | | INTERVAL | | | | | | (CORRECTED) | | | | | + + + + + + | P WAVE AXIS | 58 | degrees | [facility] | | + + + + + + | QRS AXIS | 63 | degrees | [facility] | | + + + + + + | T AXIS | 77 | degrees | [facility] | | + + + + + + | INTERPRETAT | Normal sinus rhythmLeft | | [facility] | | | ION TEXT | atrial enlargementLeft | | | | | | ventricular | | | | | | hypertrophyNonspecific | | | | | | ST and T wave | | | | | | abnormalityProlonged | | | | | | QTAbnormal ECGNo | | | | | | previous ECGs | | | | | | availableConfirmed by | | | | | | HAROON WHATLEY MD ([id number]) | | | | | | on 07/05/2017 7:21:55 AM | | | | + + + + + + + + | Specimen | + + | | + + + + + | Narrative | Performed At | + + + | | | + + + + +---------+ + + | Performing | Address | City/State/Zipcode | Phone Number | | Organization | | | | + +---------+ + + | [facility] | | | | + +---------+ + + documented in this encounter Visit Diagnoses + + | Diagnosis | + + | Chest pain in adult - Primary | + + | Elevated troponin I level Other abnormal blood chemistry | + + | Acute renal failure, unspecified acute renal failure type (HCC) | + + | Acute hyponatremia Hyposmolality and/or hyponatremia | + + | Methamphetamine abuse (HCC) Nondependent amphetamine or related acting | | sympathomimetic abuse, unspecified | + + | Marijuana use Cannabis abuse, unspecified | + + documented in this encounter Administered Medications + +--------+ +--------+------+------+ | Medication Order | MAR | Action | Dose | Rate | Site | | | Action | Date | | | | + +--------+ +--------+------+------+ | acetaminophen (TYLENOL) tablet | Given | 07/05/19 | 650 mg | | | | 650 mg 650 mg, Oral, EVERY 4 | | 18 9:40 | | | | | HOURS PRN, Pain, Pain, Starting | | PM PST | | | | | 07/04/17 at 1851 | | | | | | + +--------+ +--------+------+------+ +-------+ +--------+---+---+ | Given | 07/05/19 | 650 mg | | | | | 18 5:37 | | | | | | PM PST | | | | +-------+ +--------+---+---+ | Given | 07/05/19 | 650 mg | | | | | 18 1:18 | | | | | | PM PST | | | | +-------+ +--------+---+---+ +---+---+ | | | +---+---+ + +-------+ +--------+---+---+ | aspirin chewable tablet 324 mg | Given | 07/04/19 | 324 mg | | | | 324 mg, Oral, ONCE, 07/04/17 | | 18 1:49 | | | | | at 1325, For 1 dose, Give if no | | PM PST | | | | | allergy and the patient has not | | | | | | | had with in the last 24hrs, | | | | | | + +-------+ +--------+---+---+ +---+---+ | | | +---+---+ + +-------+ + +---+---+ | calcium carbonate (TUMS) | Given | 07/05/19 | 1,000 mg | | | | chewable tablet 1,000 mg 1,000 | | 18 8:26 | | | | | mg, Oral, EVERY 4 HOURS PRN, | | AM PST | | | | | Indigestion, Starting 07/05/17 | | | | | | | at 0402 | | | | | | + +-------+ + +---+---+ +---+---+ | | | +---+---+ + +-------+ +-------+---+---+ | diphenhydrAMINE (BENADRYL) | Given | 07/04/19 | 50 mg | | | | injection 50 mg 50 mg, | | 18 3:32 | | | | | Intravenous, ONCE, 07/04/17 at | | PM PST | | | | | 1510, For 1 dose | | | | | | + +-------+ +-------+---+---+ +---+---+ | | | +---+---+ + +-------+ +-------+---+---+ | etomidate (AMIDATE) injection | Given | 07/06/19 | 20 mg | | | | 20 mg 20 mg, Intravenous, ONCE, | | 18 1:59 | | | | | 07/06/17 at 1430, For 1 dose | | PM PST | | | | + +-------+ +-------+---+---+ +---+---+ | | | +---+---+ + +-------+ +-------+---+---+ | famotidine (PEPCID) tablet 20 | Given | 07/06/19 | 20 mg | | | | mg 20 mg, Oral, 2 TIMES DAILY, | | 18 8:46 | | | | | First dose on 07/05/17 at 2100 | | AM PST | | | | + +-------+ +-------+---+---+ +-------+ +-------+---+---+ | Given | 07/05/19 | 20 mg | | | | | 18 9:40 | | | | | | PM PST | | | | +-------+ +-------+---+---+ +---+---+ | | | +---+---+ + + + +--------+ +---+ | fentaNYL (PF) 5 mcg/mL in | Rate/Dos | 07/06/19 | 75 | 15 mL/hr | | | sodium chloride 0.9% 250 mL | e Verify | 18 8:45 | mcg/hr | | | | infusion 25-250 mcg/hr (5-50 | | PM PST | | | | | mL/hr), at 5-50 mL/hr, | | | | | | | Intravenous, TITRATED, Starting | | | | | | | 07/06/17 at 1530, Initial | | | | | | | dose: 25 mcg/hr, Goal: Pain score | | | | | | | of 0 to 3 | | | | | | + + + +--------+ +---+ + + +--------+ +---+ | Rate/Dose Change | 07/06/19 | 75 | 15 mL/hr | | | | 18 6:55 | mcg/hr | | | | | PM PST | | | | + + +--------+ +---+ | Rate/Dose Change | 07/06/19 | 100 | 20 mL/hr | | | | 18 6:24 | mcg/hr | | | | | PM PST | | | | + + +--------+ +---+ + +---+ | | | + +---+ | fentaNYL (PF) 50 mcg/mL | | | injection Starting 07/06/17 | | | at 1506, For 1 dose, DEVON, | | | LE: kelin quinones, | | + +---+ | | | + +---+ + +-------+ +--------+---+---+ | fentaNYL (PF) injection 50 mcg | Given | 07/06/19 | 50 mcg | | | | 50 mcg, Intravenous, ONCE, Tue | | 18 3:05 | | | | | 07/06/17 at 1530, For 1 dose | | PM PST | | | | + +-------+ +--------+---+---+ +---+---+ | | | +---+---+ + +-------+ +-------+---+---+ | furosemide (LASIX) injection 40 | Given | 07/06/19 | 40 mg | | | | mg 40 mg, Intravenous, ONCE, | | 18 1:37 | | | | | 07/06/17 at 1400, For 1 dose | | PM PST | | | | + +-------+ +-------+---+---+ +---+---+ | | | +---+---+ + +-------+ +-------+---+---+ | furosemide (LASIX) injection 40 | Given | 07/06/19 | 40 mg | | | | mg 40 mg, Intravenous, ONCE, | | 18 3:24 | | | | | 07/06/17 at 1600, For 1 dose | | PM PST | | | | + +-------+ +-------+---+---+ + +---+ | | | + +---+ | guaiFENesin-dextromethorphan | | | (ROBITUSSIN DM) 100-10 mg/5 mL | | | liquid 10 mL 10 mL, Oral, EVERY | | | 4 HOURS PRN, Cough, Starting Tue | | | 07/06/17 at 0531 | | + +---+ | | | + +---+ + +-------+ +--------+---+ + | heparin 5,000 units/mL | Given | 07/06/19 | 5,000 | | Arm-Left | | injection 5,000 Units 5,000 | | 18 5:02 | Units | | Upper | | Units, Subcutaneous, EVERY 12 | | PM PST | | | | | HOURS (2 times per day), First | | | | | | | dose on 07/06/17 at 1445 | | | | | | + +-------+ +--------+---+ + +---+---+ | | | +---+---+ + +-------+ +-------+---+---+ | labetalol (TRANDATE) 5 mg/mL | Given | 07/06/19 | 20 mg | | | | injection 20 mg 20 mg, | | 18 3:57 | | | | | Intravenous, ONCE PRN, SBP >= 160 | | AM PST | | | | | or DBP >= 105 for initial | | | | | | | treatment of maternal | | | | | | | hypertension per protocol, | | | | | | | Starting 07/04/17 at 1851, For | | | | | | | 1 dose, Begin continuous | | | | | | | monitoring if undelivered and | | | | | | | fetus is viable. If severe BP | | | | | | | persist for 15min or more, give | | | | | | | labetalol 20mg IV over 2min. | | | | | | | Notify OB provider for additional | | | | | | | orders. Repeat BP in 10 min. | | | | | | | Acute cocaine and amphetamine use | | | | | | | (including methamphetamine) is a | | | | | | | contraindication for labetalol | | | | | | | use., Antepartum | | | | | | + +-------+ +-------+---+---+ + +---+ | | | + +---+ | labetalol (TRANDATE) 5 mg/mL | | | injection 20 mg 20 mg, | | | Intravenous, EVERY 2 HOURS PRN, | | | for SBP>150, Starting 07/06/17 | | | at 1611, Give first dose now, | | + +---+ | | | + +---+ + + + +---+-------+---+ | lactated ringers (LR) infusion | Rate/Dos | 07/06/19 | | 100 | | | at 100 mL/hr, Intravenous, | e Change | 18 8:48 | | mL/hr | | | CONTINUOUS, Starting 07/04/17 | | AM PST | | | | | at 1915, Antepartum | | | | | | + + + +---+-------+---+ + + +---+-------+---+ | New Bag | 07/06/19 | | 125 | | | | 18 5:18 | | mL/hr | | | | AM PST | | | | + + +---+-------+---+ | Rate/Dose Change | 07/05/19 | | 125 | | | | 18 9:42 | | mL/hr | | | | PM PST | | | | + + +---+-------+---+ +---+---+ | | | +---+---+ + +-------+ +------+---+---+ | LORazepam (ATIVAN) 2 mg/mL | Given | 07/06/19 | 1 mg | | | | injection Starting 07/06/17 | | 18 1:55 | | | | | at 1335, For 1 dose, ROMAN, | | PM PST | | | | | LEONARDO: kelin quinones, | | | | | | + +-------+ +------+---+---+ +---+---+ | | | +---+---+ + +-------+ +------+---+---+ | LORazepam (ATIVAN) injection 1 | Given | 07/06/19 | 1 mg | | | | mg 1 mg, Intravenous, ONCE, Tue | | 18 1:36 | | | | | 07/06/17 at 1400, For 1 dose | | PM PST | | | | + +-------+ +------+---+---+ +---+---+ | | | +---+---+ + +-------+ +------+---+---+ | LORazepam (ATIVAN) injection 1 | Given | 07/06/19 | 1 mg | | | | mg 1 mg, Intravenous, ONCE, Tue | | 18 2:40 | | | | | 07/06/17 at 1415, For 1 dose | | PM PST | | | | + +-------+ +------+---+---+ +---+---+ | | | +---+---+ + +-------+ +------+---+---+ | LORazepam (ATIVAN) injection 2 | Given | 07/06/19 | 2 mg | | | | mg 2 mg, Intravenous, ONCE, Tue | | 18 3:35 | | | | | 07/06/17 at 1600, For 1 dose | | PM PST | | | | + +-------+ +------+---+---+ +---+---+ | | | +---+---+ + +-------+ +------+---+---+ | LORazepam (ATIVAN) tablet 1-2 | Given | 07/06/19 | 2 mg | | | | mg 1-2 mg, Oral, EVERY 6 HOURS | | 18 10:37 | | | | | PRN, Anxiety, Starting Sun | | AM PST | | | | | 07/04/17 at 1733 | | | | | | + +-------+ +------+---+---+ +-------+ +------+---+---+ | Given | 07/06/19 | 2 mg | | | | | 18 3:57 | | | | | | AM PST | | | | +-------+ +------+---+---+ | Given | 07/05/19 | 1 mg | | | | | 18 9:40 | | | | | | PM PST | | | | +-------+ +------+---+---+ +---+---+ | | | +---+---+ + +-------+ +-------+---+---+ | pantoprazole (PROTONIX) | Given | 07/06/19 | 40 mg | | | | injection 40 mg 40 mg, | | 18 3:27 | | | | | Intravenous, DAILY, First dose on | | PM PST | | | | | Wed07/06/17 at 1430, Slow IV | | | | | | | push (dilute with 10ml NS)., | | | | | | + +-------+ +-------+---+---+ +---+---+ | | | +---+---+ + +---------+ +--------+-------+---+ | potassium chloride 10 mEq in | New Bag | 07/06/19 | 10 mEq | 100 | | | 100 mL IVPB 10 mEq, Intravenous, | | 18 5:48 | | mL/hr | | | Administer over 1 Hours, EVERY | | PM PST | | | | | HOUR, First dose on e 07/06/17 | | | | | | | at 1600, For 2 doses, Total of | | | | | | | two dose over 2 hours which is 20 | | | | | | | meq over 2 hours, | | | | | | + +---------+ +--------+-------+---+ +---------+ +--------+-------+---+ | New Bag | 07/06/19 | 10 mEq | 100 | | | | 18 4:46 | | mL/hr | | | | PM PST | | | | +---------+ +--------+-------+---+ +---+---+ | | | +---+---+ + +-------+ +--------+---+---+ | potassium chloride 20 mEq/15 mL | Given | 07/05/19 | 20 mEq | | | | liquid 20 mEq 20 mEq, Oral, | | 18 5:37 | | | | | EVERY 2 HOURS, First dose on Mon | | PM PST | | | | | 07/05/17 at 1430, For 2 doses, 20 | | | | | | | meq po every 2 hours for 2 doses, | | | | | | | | | | | | | + +-------+ +--------+---+---+ +-------+ +--------+---+---+ | Given | 07/05/19 | 20 mEq | | | | | 18 2:42 | | | | | | PM PST | | | | +-------+ +--------+---+---+ +---+---+ | | | +---+---+ + +-------+ + +---+---+ | 27-0.8 mg multivitamin | Given | 07/06/19 | 1 tablet | | | | 1 tablet 1 tablet, Oral, DAILY, | | 18 8:46 | | | | | First dose on 07/04/17 at | | AM PST | | | | | 1915 | | | | | | + +-------+ + +---+---+ +-------+ + +---+---+ | Given | 07/05/19 | 1 tablet | | | | | 18 8:26 | | | | | | AM PST | | | | +-------+ + +---+---+ | Given | 07/04/19 | 1 tablet | | | | | 18 8:34 | | | | | | PM PST | | | | +-------+ + +---+---+ +---+---+ | | | +---+---+ + +---------+ + +-------+---+ | propofol infusion (DIPRIVAN) 10 | New Bag | 07/06/19 | 50 | 15.7 | | | mg/mL infusion 10-70 mcg/kg/min | | 18 8:40 | mcg/kg/m | mL/hr | | | | | PM PST | in | | | | 52.2 kg (3.132-21.924 mL/hr, | | | | | | | rounded to 3.1-21.9 mL/hr), at | | | | | | | 3.1-21.9 mL/hr, Intravenous, | | | | | | | TITRATED, Starting 07/06/17 at | | | | | | | 1430, If institutional policy | | | | | | | permits it, bolus 30 mg IV every | | | | | | | 5 minutes prn breakthrough | | | | | | | agitation (maximum total bolus | | | | | | | dose = 150mg per hour) Shake | | | | | | | well. Do not filter. Expires 12 | | | | | | | hours after spiked., Initial | | | | | | | dose: 10 mcg/kg/min, Increase | | | | | | | rate by: Titrate up 5-10 | | | | | | | mcg/kg/min Q 5 minutes to goal, | | | | | | | Decrease rate by: Taper down 5-10 | | | | | | | mcg/kg/min Q 5 minutes as | | | | | | | tolerated, Goal: Other, Other | | | | | | | goal: RASS goal in | | | | | | | pain/sedation/delirium management | | | | | | | order | | | | | | + +---------+ + +-------+---+ + + + +-------+---+ | Rate/Dose Change | 07/06/19 | 50 | 15.7 | | | | 18 7:25 | mcg/kg/m | mL/hr | | | | PM PST | in | | | + + + +-------+---+ | Rate/Dose Change | 07/06/19 | 30 | 9.4 | | | | 18 6:55 | mcg/kg/m | mL/hr | | | | PM PST | in | | | + + + +-------+---+ +---+---+ | | | +---+---+ + +---------+ +--------+-------+---+ | sodium chloride 0.9% (NS) bolus | New Bag | 07/04/19 | 1,000 | 4000 | | | 1,000 mL 1,000 mL, Intravenous, | | 18 3:33 | mLs | mL/hr | | | Administer over 15 Minutes, | | PM PST | | | | | ONCE, 07/04/17 at 1510, For 1 | | | | | | | dose | | | | | | + +---------+ +--------+-------+---+ +---+---+ | | | +---+---+ documented in this encounter
--- OUTSIDE RECORDS SUMMARY | ~2019-05-10 | XMS | Encounter Summary ---
Demographics + + + | Address | [address] | | | [place] [address] | + + + | Home Phone [...] + + | Author | [facility] | | | and [place] | + + + | Organization | [facility] | [...] [place] | | | | | [address] | | + + + + + Care Team Providers + +------+ + | Care Bakery Supervisor Name | Role | Phone | [...] | | [address] | [place] | | | | | [place], [place] | [place], [place] | | | | | [address] | [address] | | | | | [phone] | | | +--------+ + + + [...]
--- OUTSIDE RECORDS SUMMARY | ~2019-05-10 | XMS | Encounter Summary ---
Demographics + + + | Address | [address] | | | [place] [address] | + + + | Home Phone | | + + + | Preferred Language | Unknown | + + + | Marital Status | | + + + | Adventist Affiliation | 1038 | + + + | Race | Unknown | + + + | Ethnic Group | Unknown | + + + Author + + + | Author | [facility] | | | and [place] | + + + | Organization | [facility] | | | and [place] | [...] [place] | | | | | [address] | | + + + + + Care Team Providers + +------+ + | Care Collision Technician Name | Role | Phone | [...] | +--------+ + + + + | 09/30/ | Telephone | [facility] | Jhoana Barreto | Lab Results | | 2017 | | NEPHROLOGY [address] | M, DO [address] | | | | | [address] | [place] | | | | | [place], [place] | [place] | | | | | [address] | [address] | | | | | [phone] | | | +--------+ + + + [...] | | + +------+--------+ + + | Potassium | Lab | Routin | Hypokalemia | Expected: | | | | e | | 10/01/2017, Expires: | | | | | | 09/30/2018 | + +------+--------+ + + documented as of this encounter Visit Diagnoses + + | Diagnosis | + + | Hypokalemia - Primary Hypopotassemia | + + documented in this encounter"
--- OUTSIDE RECORDS SUMMARY | ~2019-05-10 | XMS | Encounter Summary ---
Demographics + + + | Address | [address] | | | [place] [address] | + + + | Home Phone | | + + + | Preferred Language | Unknown | + + + | Marital Status | | + + + | Anglican Affiliation | 1038 | + + + | Race | Unknown | + + + | Ethnic Group | Unknown | + + + Author + + + | Author | [facility] | | | and [place] | + + + | Organization | [facility] | [...] [place] | | | | | [address] | | + + + + + Care Team Providers + +------+ + | Care Heat Treater Head Name | Role | Phone | + [...] | | [address] | [place] | | | | | [place], [place] | [place], [place] | | | | | [address] | [address] | | | | | [phone] | | | +--------+ + + + [...]
--- OUTSIDE RECORDS SUMMARY | ~2019-05-10 | XMS | Encounter Summary ---
Demographics + + + | Address | [address] | | | [place] [address] | + + + | Home Phone [...] Author | [facility] | | | and [place] | + + + | Organization | [facility] | [...] [place] | | | | | [address] | | + + + + + Care Team Providers + +------+ + | Care Boot And Shoe Laborer Name | Role | Phone | + [...] | | [address] | [place] | | | | | [place], [place] | [place], [place] | | | | | [address] | [address] | | | | | [phone] | | | +--------+ + + + [...]
--- OUTSIDE RECORDS SUMMARY | ~2019-05-10 | XMS | Encounter Summary ---
Demographics + + + | Address | [address] | | | [place] [address] | + + + | Home Phone | | + + + | Preferred Language | Unknown | + + + | Marital Status | | + + + | Alevism Affiliation | 1038 | + + + | Race | Unknown | + + + | Ethnic Group | Unknown | + + + Author + + + | Author | [facility] | | | and [place] | + + + | Organization | [facility] | | | and [...] [place] | | | | | [address] | | + + + + + Care Team Providers + +------+ + | Care Aqueduct And Reservoir Keeper Name | Role | Phone | + +------+ + PCP | Unavailable | + +------+ + Reason for Visit + + + | Reason | Comments | + + + | Medication Refill | | + + + Encounter Details +--------+--------+ + + + | Date | Type | Department | Care Team | Description | +--------+--------+ + + + | 08/31/ | Refill | [facility] [place] | Jhoana Barreto | Medication Refill | | 2017 | | NEPHROLOG[address] | M, DO [address] | | | | | [address] | [place] | | | | | [place], [place] | [place], [place] | | | | | [address] | [address] | | | | | [phone] | | | +--------+--------+ + + + [...]
--- OUTSIDE RECORDS SUMMARY | ~2019-05-10 | XMS | Encounter Summary ---
Demographics + + + | Address | [address] | | | [place] [address] | + + + | Home Phone | | + + + | Preferred Language | Unknown | + + + | Marital Status | | + + + | Buddhism Affiliation | 1038 | + + + | Race | Unknown | + + + | Ethnic Group | Unknown | + + + Author + + + | Author | [facility] | | | and [place] | + + + | Organization | [facility] | | | and [place] [...] + | [address] | ECON | [place] | | | | | [address] | | + + + + + Care Team Providers + +------+ + | Care Guest History Clerk Name | Role | Phone | + +------+ + | Sia Zheng | PCP | | + +------+ + Encounter Details +--------+ + + + + | Date | Type | Department | Care Team | Description | +--------+ + + + + | 04/10/ | Documentati | [facility] [place] | Jhoaan Barreto | | | 2019 | on | NEPHROLOGY [address] | M, DO [address] | | | | | [address] | [place], [address] | | | | | [place], [place] | [place], [place] | | | | | [address] | [address] | | | | | [phone] | | | +--------+ + + + [...] + documented as of this encounter Progress Indu Lyon - 04/10/2019 10:01 AM PSTComplete "clip" admissions packet was manually fa xed to [facility] and to [facility] for karly mathis to start hemodialysis today, 04/10/19.Electronically signed by Indu Fiore at 10:02 AM PSTdocumented in this encounter Plan of Treatment Not [...]
--- OUTSIDE RECORDS SUMMARY | ~2019-05-10 | XMS | Encounter Summary ---
Demographics + + + | Address | [address] | | | [place] [address] | + + + | Home Phone [...] | Author | [facility] | | | and [place] | + + + | Organization | [facility] | | | and [...] [place] | | | | | [address] | | + + + + + Care Team Providers + +------+ + | Care Salesperson Burial Plots Name | Role | Phone | + +------+ + PCP | Unavailable | + +------+ + Encounter Details +--------+ + + + + | Date | Type | Department | Care Team | Description | +--------+ + + + + | 04/03/ | Hospital | [facility] | Tom, | | | 1998 | Encounter | [facility] | Fauzia Mcgovern MD | | | | | [address] | | | | | | [place], | | | | | | [place] [address] | | | | | | [phone] | | | +--------+ + + + [...]
--- OUTSIDE RECORDS SUMMARY | ~2019-05-10 | XMS | Encounter Summary ---
Demographics + + + | Address | [address] | | | [place] [address] | + + + | Home Phone | | + + + | Preferred Language | Unknown | + + + | Marital Status | | + + + | Samaritan Affiliation | 1038 | + + + | Race | Unknown | + + + | Ethnic Group | Unknown | + + + Author + + + | Author | [facility] | | | and [place] | + + + | Organization | [facility] | | | and [place] [...] [place] | | | | | [address] | | + + + + + Care Team Providers + +------+ + | Care Comptroller Name | Role | Phone | + [...] | | [address] | [place] | | | | | [place], [place] | [place], [place] | | | | | [address] | [address] | | | | | [phone] | | | +--------+ + + + [...]
--- OUTSIDE RECORDS SUMMARY | ~2019-05-10 | XMS | Encounter Summary ---
Demographics + + + | Address | [address] | | | [place] [address] | + + + | Home Phone | | + + + | Preferred Language | Unknown | + + + | Marital Status | | + + + | Nondenominational Affiliation | 1038 | + + + | Race | Unknown | + + + | Ethnic Group | Unknown | + + + Author + + + | Author | [facility] | | | and [place] | + + + | Organization | [facility] | | | and [...] [place] | | | | | [address] | | + + + + + Care Team Providers + +------+ + | Care Sales And Service Consultant Name | Role | Phone | [...] + + | 12/22/ | Telephone | [facility] [place] | [place], | Other (Non adherence | | 2019 | | NEPHROLOGY [address] | [address] | to dialysis plan) | | | | [address] | [address] | | | | | [place], [place] | [address] [place] | | | | | [address] | [address] | | | | | [phone] | | | +--------+ + + + [...]
--- OUTSIDE RECORDS SUMMARY | ~2019-05-10 | XMS | Encounter Summary ---
Demographics + + + | Address | [address] | | | [place] [address] | + + + | Home Phone [...] Author | [facility] | | | and [place] | + + + | Organization | [facility] | | | and [place] [...] [place] | | | | | [address] | | + + + + + Care Team Providers + +------+ + | Care Physician'S Assistant Name | Role | Phone | + +------+ + PCP | Unavailable | + +------+ + Encounter Details +--------+ + + + + | Date | Type | Department | Care Team | Description | +--------+ + + + + | 05/19/ | Documentati | [facility] [place] | Jhoana Barreto | | | 2018 | on | NEPHROLOGY [address] | M, DO [address] | | | | | [address] | [place], [address] | | | | | [place], [place] | [place], [place] | | | | | [address] | [address] | | | | | [phone] | | | +--------+ + + + [...] + documented as of this encounter Progress Marifer Lawson RN - 05/19/2018 9:18 AM PSTAuthorization for [facility] received, [facility] notified. doc umented in this encounter Plan of Treatment Not [...]
--- OUTSIDE RECORDS SUMMARY | ~2019-05-10 | XMS | Encounter Summary ---
Demographics + + + | Address | [address] | | | [place] [address] | + + + | Home Phone [...] Author | [facility] | | | and [place] | + + + | Organization | [facility] | | | and [...] [place] | | | | | [address] | | + + + + + Care Team Providers + +------+ + | Care Electrical Cad Technician Name | Role | Phone | [...] [address] [place]. | | | | | [phone] | [place] [address] | | +--------+ + + + + [...]
--- OUTSIDE RECORDS SUMMARY | ~2019-05-10 | XMS | Encounter Summary ---
Demographics + + + | Address | [address] | | | [place] [address] | + + + | Home Phone | | + + + | Preferred Language | Unknown | + + + | Marital Status | | + + + | Mandaen Affiliation | 1038 | + + + | Race | Unknown | + + + | Ethnic Group | Unknown | + + + Author + + + | Author | [facility] | | | and [place] | + + + | Organization | [facility] | [...] [place] | | | | | [address] | | + + + + + Care Team Providers + +------+ + | Care Silo Operator Name | Role | Phone | [...] + + + + | 10/27/ | Telephone | [facility] | Carina Dewey FNP | Scheduling Issues | | 2018 | | [facility] [place] | [address] | | | | | [address] | [place], [place] | | | | | [place], [place] | [address] | | | | | [address] | | | | | | [phone] | | | +--------+ + + + [...]
--- OUTSIDE RECORDS SUMMARY | ~2019-05-10 | XMS | Encounter Summary ---
Demographics + + + | Address | [address] | | | [place] [address] | + + + | Home Phone [...] | [facility] | | | and [place] | + + + | Organization | [facility] [...] [place] | | | | | [address] | | + + + + + Care Team Providers + +------+ + | Care Occupational Therapist'S Assistant Name | Role | Phone | + +------+ + PCP | Unavailable | + +------+ + Encounter Details +--------+ + + + + | Date | Type | Department | Care Team | Description | +--------+ + + + + | 10/26/ | Abstract | [facility] | Provider, | Termination of | | 2018 | | SURGERY [address] | [address] | (fetus) | | | | [place], [place] | [place] | | | | | [address] | [place] [address] | | | | | [phone] | | | +--------+ + + + [...]
--- OUTSIDE RECORDS SUMMARY | ~2019-05-10 | XMS | Encounter Summary ---
Demographics + + + | Address | [address] | | | [place] [address] | + + + | Home Phone | | + + + | Preferred Language | Unknown | + + + | Marital Status | | + + + | Amish Affiliation | 1038 | + + + | Race | Unknown | + + + | Ethnic Group | Unknown | + + + Author + + + | Author | [facility] | | | and [place] | + + + | Organization | [facility] | | | and [place] [...] [place] | | | | | [address] | | + + + + + Care Team Providers + +------+ + | Care Barrel Lapper Name | Role | Phone | + +------+ + PCP | Unavailable | + +------+ + Reason for Visit + + + | Reason | Comments | + + + | Hospitalization | | + + + Encounter Details +--------+ + + + + | Date | Type | Department | Care Team | Description | +--------+ + + + + | 04/01/ | Telephone | [facility] | RoyergeorgeJhoana | Hospitalization | | 2018 | | NEPHROLOGY [address] | M, DO [address] | | | | | [address] | [place] | | | | | [place], [place] | [place], [place] | | | | | [address] | [address] | | | | | [phone] | | | +--------+ + + + [...]
--- OUTSIDE RECORDS SUMMARY | ~2019-05-10 | XMS | Encounter Summary ---
Demographics + + + | Address | [address] | | | [place] [address] | + + + | Home Phone [...] | [facility] | | | and [place] | + + + | Organization | [facility] [...] [place] | | | | | [address] | | + + + + + Care Team Providers + +------+ + | Care Backbreaker Name | Role | Phone | + [...] + + | 09/30/ | Telephone | [facility] | Jhoana Barreto | Lab Results | | 2017 | | NEPHROLOGY [address] | M, DO [address] | | | | | [address] | [place] | | | | | [place], [place] | [place] | | | | | [address] | [address] | | | | | [phone] | | | +--------+ + + + [...]
--- OUTSIDE RECORDS SUMMARY | ~2019-05-10 | XMS | Clinical Summary ---
Demographics + + + | Address | [address] | | | [place] [address] | + + + | Home Phone [...] + | Author | [facility] | | | and [place] | + + + | Organization | [facility] | | | [...] [place] | | | | | [address] | | + + + + + Care Team Providers + +------+ + | Care Ladle Puller Name | Role | Phone | + [...] | | | | | | | ([facility]) | | | | | | | [...] 4 times daily | tablet | | 20 | | e | | 800 mg tablet | (before meals and | | | 19 | | | | | nightly). | | | | | | + + + +---------+------+------+-------+ | vitamin | Take 1 capsule by | 90 | 3 | / | | Activ | | (CITRANATAL HARMONY) [...] | | | + + + +---------+------+------+-------+ +---+ + | | Additional | | | informationPatient | | | not taking. Reported | | | on 12/15/2018 7:37 | | | PM | +---+ + + + +---------+---+------+---+-------+ | calcitRIOL | Take 1 capsule by | 30 | 0 | 03/1 | | Activ | | (ROCALTROL) 0.5 MCG | mouth Three times a | capsule | | 8/20 | | e | | capsule | week. | | | 19 | | | + + +---------+---+------+---+-------+ | azithromycin | Take 2 tablets by | 6 | 0 | 04/1 | | Activ | | (ZITHROMAX) 250 mg | mouth on day 1, and | tablet | | 1/20 | | e | | tablet | 1 tablet by mouth | | | 19 | | | | | every day | | | | | | + + +---------+---+------+---+-------+ | ondansetron | Take 1 tablet by | 20 | 3 | 04 | | Activ | | (ZOFRAN) 4 mg tablet | mouth every 12 hours | tablet | | 06/26 | | e | | | as needed for | | | 19 | | | | | Nausea. | | | | | | + + +---------+---+------+---+-------+ | acetaminophen | Take 325-650 mg by | | 0 | 07/08 | | Activ | | (TYLENOL) 325 mg | mouth every 6 (six) | | | 10/24 | | e | | tablet | hours as needed. | | | 18 | | | + + +---------+---+------+---+-------+ | B Lqqwqkv-Q-Yqhdc | Take 1 Tab by mouth. | | 0 | 05/ | | Activ | | Acid (RENAL-KIT) | | | | 06/26 | | e | | 0.8 MG TABS | | | | 18 | | | + + +---------+---+------+---+-------+ | b complex-vitamin | TAKE 1 TABLET BY | | 4 | 06/ | | Activ | | c-folic acid | MOUTH EVERY DAY (ON | | | 06/26 | | e | | (NEPHRO-KIT) tablet | DIALYSIS DAYS, TAKE | | | 19 | | | | | AFTER DIALYSIS | | | | | | | | TREATMENT) | | | | | | + + +---------+---+------+---+-------+ | cholecalciferol | Take 1,000 Units by | | 0 | 05/1 | | Activ | | (CHOLECALCIFEROL) | mouth daily. | | | 1/20 | | e | | 1000 units TABS | | | | 18 | | | + + +---------+---+------+---+-------+ | | Swish and spit 10 | [...] | | | | | + + +---------+---+------+---+-------+ | diphenhydrAMINE | Take 25 mg by mouth | | 0 | | | Activ | | (BENADRYL) 25 mg | nightly as needed. | | | | | e | | tablet | | | | | | | + + +---------+---+------+---+-------+ | eculizumab | Inject 1,200 mg into | | 0 | 07/2 | | Activ | | (SOLIRIS) 10 mg/mL | the vein every 30 | | | 2/20 | | e | | injection | (thirty) days. | | | 18 | | | + + +---------+---+------+---+-------+ | epoetin ant | Inject 8,000 Units | | 0 | | | Activ | | (EPOGEN, PROCRIT) | into the skin 3 | | | | | e | | 10,000 units/mL | (three) times a | | | | | | | injection | week. | | | | | | + + +---------+---+------+---+-------+ | famotidine | Take 1 tablet by | | 0 | 08/1 | | Activ | | (PEPCID) 20 mg | mouth 2 (two) times | | | 0/20 | | e | | tablet | daily for 14 days. | | | 17 | | | + + +---------+---+------+---+-------+ | NIFEdipine | Take 60 mg by mouth | | 0 | 02/1 | | Activ | | (PROCARDIA XL) 60 mg | daily. | | | 6/20 | | e | | ER tablet | | | | 18 | | | + + +---------+---+------+---+-------+ | oxyCODONE | Take 5-10 mg by | | 0 | 02/1 | | Activ | | (ROXICODONE) 5 mg | mouth every 6 (six) | | | 5/20 | | e | | tablet | hours as needed. | | | 18 | | | + + +---------+---+------+---+-------+ | sucroferric | Take 500 mg by mouth | | 0 | 05/1 | | Activ | | oxyhydroxide | 3 (three) times | | | 0/20 | | e | | (VELPHORO) 500 mg | daily with meals. | | | 18 | | | | chewable tablet | | | | | | | + + +---------+---+------+---+-------+ | zolpidem (AMBIEN) | | | 0 | 06/1 | | Activ | | 5 mg tablet | | | | 4/20 | | e | | | | | | 19 | | | + + +---------+---+------+---+-------+ | carvedilol (COREG) | 6.25 mg. Take one | | 0 | 02/1 | | Activ | | 25 mg tablet | tab twice daily | | | 10/24 | | e | | | | | | 18 | | | + + +---------+---+------+---+-------+ | carvedilol (COREG) | Take 6.25 mg by | | 0 | | | Activ | | 6.25 mg tablet | mouth 2 (two) times | | | | | e | | | daily. | | | | | | + + +---------+---+------+---+-------+ | furosemide (LASIX) | Take 1 Tab by mouth | | 0 | 02/1 | | Activ | | 20 mg tablet | every day. | | | 20 | | e | | | | | | 18 | | | + + +---------+---+------+---+-------+ | furosemide (LASIX) | Take 80 mg by mouth | | 0 | 04/1 | | Activ | | 40 mg tablet | daily. | | | 20 | | e | | | | | | 18 | | | + + +---------+---+------+---+-------+ | levalbuterol | | | 0 | 06/1 | | Activ | | (XOPENEX HFA) 45 | | | | 4/20 | | e | | mcg/puff inhaler | | | | 19 | | | + + +---------+---+------+---+-------+ | lisinopril | Take 20 mg by mouth | | 0 | 08/2 | | Activ | | (PRINIVIL, ZESTRIL) | daily. | | | 0/20 | | e | | 20 mg tablet | | | | 18 | | | + + +---------+---+------+---+-------+ + + +-------+ +------+------+-------+ | Hospital, Clinic, [...] + + + + | Overview: 07/17/2017 [facility] | + + + + + | 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 renal disease | 07/18/2017 | + + + | Hypertension | 07/18/2017 | + + + + + | Overview: GFR - 09/29/2017 | + + + + [...] + + | 04/10/ | Telephone | Nephrology | Jhoana Barreto | Dialysis | | 2018 | | | M, DO | (Asymptomatic) | +--------+ + + + + | 04/10/ | Documentati | Nephrology | Jhoana Barreto | | | 2018 | on | | M, DO | | +--------+ + + + + | 04/10/ | Abstract | Nephrology | Jhoana Barreto | | | 2018 | | | M, DO | | +--------+ + + + + | 04/07/ | Orders Only | Nephrology | Jhoana Barreto | ESRD needing | | 2018 | | | M, DO | dialysis (HCC) | | | | | | (Primary Dx) | +--------+ + + + + from Last 3 Months Immunizations + + + + | Name | Administration Dates | Next Due | + + + [...] | Blood Pressure | 153/75 | 11/24/2018 7:36 PM | | | | | PDT | | + + + + + | Pulse | 78 | 07/21/2018 8:06 AM | | | | | PST | | + + + + + | Temperature | 36.7 C (98 F) | 11/24/2018 7:36 PM | | | | | PDT | | + + + + + | Respiratory Rate | 16 | 07/21/2018 8:06 AM | | | | | PST | | + + + + + | Oxygen Saturation | 98% | 07/21/2018 8:06 AM | | | | | PST | | + + + + + | Inhaled Oxygen | - | - | | | Concentration | | | | + + + + + | Weight | 43.5 kg (95 lb 14.4 | 07/21/2018 4:13 AM | | | | oz) | PST | | + + + + + | Height | 167.6 cm (5' 6") | 07/18/2018 12:59 PM | | | | | PST | | + + + + + | Body Mass Index | 15.48 | 07/18/2018 12:59 PM | | | | | PST | | + + + + + Plan of Treatment [...] 19-64 | 2 | | | | (3 of 3 - PPSV23) | | | | + + + + + | Vaccine: | | 04/29/2013, 05/14/1999 | | | Dtap/Tdap/Td (3 - | 3 | | | | Td) | | | | + + + + + Procedures + +--------+ + + + | Procedure Name | Priori | Date/Time | Associated Diagnosis | Comments | | | ty | | | | + +--------+ + + + | LABS - EXTERNAL SCAN | | 04/06/2019 | | Results for this | | | | 12:00 AM | | procedure are in the [...] section. | + +--------+ + + + from Last 3 Months Results External Lab: Hepatitis B Surface Ag [...] | + + | | + + LABS - EXTERNAL SCAN (04/06/2019 12:00 AM PDT) + + + | Narrative | Performed At | + + + | Ordered by an | | | unspecified provider. | | + + + from Last 3 Months Additional Health Concerns + + + + | Infection | Noted Time | Resolved Time | + + + + | Methicillin-resistant Staphylococcus aureus | 03/23/2018 12:00 AM | | | | PDT | | + + + + Insurance + +--------+ +--------+ +---------+--------+ | Payer | Benefi | Subscriber | Effect | Phone | Address | Type | | | t Plan | ID | anabelle | | | | | | / | | Dates | | | | | | Group | | | | | | + +--------+ +--------+ +---------+--------+ | MEDICARE | MEDICA | [id number] | 02/06/20 | [phone] | | Medica | | | RE | | 18-Pre | 5 | | re | | | PART A | | sent | | | | | | AND B | | | | | | + +--------+ +--------+ +---------+--------+ | [employer] | MODA | [id number] | | [phone] | | Medica | | MEDICAID HMO | HEALTH | | [phone]-[id number] | 1 | | id | | | MDCD | | esent | | | | | | [place]MO [place] | | | | | | + +--------+ +--------+ +---------+--------+ | [employer] | MODA | [id number] | | [phone] | | Medica | | MEDICAID HMO [...] | | al/Fam | | 1979 | [id number] | [place] [address] | | | carley | | | 2 (Home) | | + +--------+ +--------+ + + | Aurea Perez | Person | Self | [birth year] | [address] | | | al/Fam | | 1979 | [phone] | [place] [address] | | | carley | | | 2 (Home) | | + +--------+ +--------+ + + Advance Directives + + + + + | Type | Date Recorded | Patient | Explanation | | | | Guard Immigration | | + + + + + | Power of | | | | | Plug Assembler | | | | + + + + + | Advance | 07/05/2017 7:03 | | | | Directive | AM | | | + + + + + + + + + + | Code Status | Date | Date | Comments | | | Activated | Inactivated | | + + + + + | Full Code | 07/18/2018 | 07/21/2018 | | | | 10:58 AM | 5:24 PM | | + + + + + + + + +---+ | | | | | + + + +---+ | Full Code | 01/04/2018 | 01/04/2018 | | | | 8:47 PM | 11:24 PM | | + + + +---+ + + + +---+ | | | | | + + + +---+ | Full Code | 01/04/2018 | 01/04/2018 | | | | 8:46 PM | 8:46 PM | | + + + +---+ + + + +---+ | | | | | + + + +---+ | Full Code | 09/01/2017 | 09/01/2017 | | | | 6:04 PM | 8:34 PM | | + + + +---+ + + + +---+ | | | | | + + + +---+ | Full Code | 07/26/2017 | 07/30/2017 | | | | 1:07 PM | 6:12 PM | | + + + +---+
--- OUTSIDE RECORDS SUMMARY | ~2019-05-10 | XMS | Encounter Summary ---
Demographics + + + | Address | [address] | | | [place] [address] | + + + | Home Phone [...] | Author | [facility] | | | and [place] | + + + | Organization | [facility] | | | and [place] | + [...] [place] | | | | | [address] | | + + + + + Care Team Providers + +------+ + | Care Shellfish Bed Worker Name | Role | Phone | + +------+ + PCP | Unavailable | + +------+ + Encounter Details +--------+ + + + + | Date | Type | Department | Care Team | Description | +--------+ + + + + | 04/01/ | Hospital | [facility] | Conversion | Pain | | 2017 | Encounter | CONVERSION [address] | Transaction, | | | | | [address] | Provider Unknown | | | | | [place], [place] | [phone] | | | | | [address] | | | | | | [phone] | | | +--------+ + + + [...] + + +---------+ + + | B Yslrthv-S-Yeagg | Take 1 Tab by mouth. | [...] + + +---------+ + + | B Verafsd-B-Yeysv | Take 1 tablet by | 30 [...] | | | | | | | Bureau, [facility] | | | | | | | [facility]]. | | | | | + [...] | | | | | ([facility]) | | | | | | + [...] for this | | | e | 5:49 AM | | procedure are in the | | | | PDT | | results section. | + +--------+ + + + documented in this encounter Results XR Chest 1 Vw (04/01/2018 5:49 AM PDT) + + | Specimen | + + | | + + + + + | Narrative | Performed At | + + + | This is a non-reportable procedure without a radiologist report and | | | is used for image storage only | | + + + + + | Procedure Note | + + | Rickie Flannery - 01/18/2019 1:45 PM PDT This is [...]
--- OUTSIDE RECORDS SUMMARY | ~2019-05-10 | XMS | Encounter Summary ---
Demographics + + + | Address | [address] | | | [place] [address] | + + + | Home Phone | | + + + | Preferred Language | Unknown | + + + | Marital Status | | + + + | Religion Affiliation | 1038 | + + + | Race | Unknown | + + + | Ethnic Group | Unknown | + + + Author + + + | Author | [facility] | | | and [place] | + + + | Organization | [facility] [...] [place] | | | | | [address] | | + + + + + Care Team Providers + +------+ + | Care Senior Tableau Developer Name | Role | Phone | + +------+ + PCP | Unavailable | + +------+ + Encounter Details +--------+ + + + + | Date | Type | Department | Care Team | Description | +--------+ + + + + | 01/12/ | Hospital | [facility] | Kofi Champion | Peritonsillar | | 2017 - | Encounter | [facility] | MD Darrius [address] | abscess | | | | CARE FLOOR [address] [place], [place] | | | 01/14/ | | [address] | [address] | | | 2016 | | [place], [place] | | | | | | [address] | | | | | | [phone] | | | +--------+ + + + [...] Date of Service: 01/14/17 1028 Status: Signed Joint Cutter Machine: Hedy Hankins MD (Physician) Related Notes: Original Note by Hedy Hankins MD (Physician) filed at 01/14/17 1032 [facility] Service: Hospitalist Physician Discharge Summary Patient ID: Aurea Perez 1980 36 y.o. Admit date: 01/12/2017 Discharge [...] methamphetamine use and smoking was transferred from [facility] with sore throat and difficulty swallowing[facility] the [facility] [...] Follow up: Erik Flor MD [address] [facility] [facility] [place] [address] Follow up on 02/05/2017 Your appointment time is 11:00am [facility] [address], [place] [address] Walkin for follow up next week. Erik Flor MD [address] [facility] [facility] [place] [address] Schedule an appointment as soon as possible for a visit in 1 week Medication List START taking these medications amoxicillin-clavulanate 875-125 MG per tablet QTY: 14 tablet Refills: 0 Commonly known as: AUGMENTIN Take 1 tablet by mouth every 12 (twelve) hours for 7 days. kvlkggfzsjrhpev-ijnqaulymihbqh-ajgbwlbb suspension QTY: 240 mL Refills: 0 Swish [...] these medications amoxicillin-clavulanate 875-125 MG per tablet bgfyhtqmortzpjb-qpjqdwpbuxtycq-aemzuotr suspension famotidine 20 MG tablet methylPREDNISolone 4 MG tablet oxyCODONE 5 MG immediate release tablet Hedy Hankins MD 01/14/2017 10:29 AM Code Status: Full Code Discharge took 45 minutes, to include final examination, discussion of admission, and prep aration of prescriptions, instructions for ongoing care, follow up and dictation of summary. This entry has been created using [employer] Speech Recognition software and I[employer] Connect. The entry has been reviewed and there [...] Note by Daily Moore RN at 01/14/17 6347 Author: Daily Moore RN Service: (none) Author Type: Registered Nurse Filed: 01/14/17 1505 Date of Service: 01/14/17 1256 Status: Signed Joint Cutter Machine: Daily Moore RN (Registered Nurse) Discharged per w/c to hinkle staff member to be transported home.Daily Moore 01/14/2017 onver chaz Transaction, Provider Unknown - 01/14/2017 11:14 AM PDT Nurse Progress Note by Daily Moore RN at 01/14/17 6827 Author: Daily Moore RN Service: (none) Author Type: Registered Nurse Filed: 01/14/17 1115 Date of Service: 01/14/17 1114 Status: Signed Joint Cutter Machine: Daily Moore RN (Registered Nurse) Discharge instructions discussed with patient and she states understanding.Daily Moore onver chaz Transaction, Provider Unknown - 01/14/2017 10:54 AM PDT Case Management by Bello Tavarez RN at 01/14/17 1054 Author: Bello Tavarez RN Service: (none) Author Type: Registered Nurse Filed: 01/14/17 1057 Date of Service: 01/14/17 105 Status: Signed Joint Cutter Machine: Bello Tavarez RN (Registered Nurse) 01/14/17 105 [...] female who is independent and lives in [place]. She has been seen by Yenny the [facility] for her substance abuse. She denies having any needs for discharge. Patient's PCP is: Erik Flor Patient's insurance:Medicaid Coverage concerns: none Medication coverage/concerns: yes Community resources utilized / needed: none Assistance in transportation: [place] [employer] Transport Identification of any specific education / training: [facility] for substance abuse Barriers to Discharge / Alternative housing needed: none Anticipated DCP: Bello Tamayo onver chaz Transaction, Provider Unknown - 01/14/2017 10:13 AM PDT Case Management by Bello Tavarez RN at 01/14/17 1013 Author: Bello Tavarez RN Service: (none) Author Type: Registered Nurse Filed: 01/14/17 105 Date of Service: 01/14/17 1013 Status: Addendum Joint Cutter Machine: Bello Tavarez RN (Registered Nurse) Related Notes: [...] 183 Date of Service: 01/13/171827 Status: Signed Joint Cutter Machine: Kevin Aguiar RN (Registered Nurse) VSS and [...] Progress Notes by Jaime Muhammad at 01/13/17 2551 Author: Jaime Muhammad Service: (none) Author Type: Tire Spotter Filed: 01/13/17 5614 Date of Service: 01/13/17 9283 Status: Signed Joint Cutter Machine: Jaime Muhammad () Per Distress Report. Pt sitting on bed appears anxious (phone conversation with her mother) , no family at bedside (They are in [place]). Pt verbalized her emotional distress (acumulate d [...] Notes by Natalie Nair RD at 01/13/17 4466 Author: Natalie Nair RD Service: (none) Author Type: Registered Dietitian Filed: 01/13/17 Date of Service: 01/13/171535 Status: Signed Joint Cutter Machine: Natalie Nair RD (Registered Dietitian) 01/13/17 3916 Subjective Timepoint Admit Pt c/o Pt triggered for low BMI, wt loss and dysphagia. Pt admitted for peritonsillar abces s. 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 Digestive System (Mouth to Rectum) CYLINDER BLOCK HOLE RELINER consult ordered. Pt reports she doesn't have [...] Estimated Energy Needs Total Energy Estimated Needs 1088-3893 kcal/day. Add 500 kcal/day to promote wt gain. Method for Estimating Needs 30-35 kcal/kg based on admit wt of 43.8 kg Estimated Protein Needs Total Protein Estimated Needs 53-66 g/day Method for Estimating Needs 1.2-1.5 g/kg based on admit wt of 43.8 kg Recommendations Recommended energy needs Diet per CYLINDER BLOCK HOLE RELINER. Send Boost Glucose Control TID at snack times. Encou rage po intake. Monitor and follow as indicated. Nutritional Risk Nutritional risk Moderate / high Follow up date 01/17/[address] onver chaz Hyltnoaction, Provider Unknown - 01/13/2017 2:15 PM PDT Case Management by Bello Tavarez RN at 01/13/17 1415 Author: Bello Tavarez RN Service: (none) Author Type: Registered Nurse Filed: 01/13/17 1416 Date of Service: 01/13/17 141 Status: Signed Joint Cutter Machine: Bello Tavarez RN (Registered Nurse) I was unable to assess patient because she was sleeping. I scheduled follow up with her PCP and arranged for [place] [employer] Transport to pick her u p tomorrow at 1200. Shanae Limon MA, CCC-CYLINDER BLOCK HOLE RELINER - 01/13/2017 2:10 PM PDTFormatting of this note might be different fr om the original. Therapy Progress Note by Shanae Contreras MA CCC-CYLINDER BLOCK HOLE RELINER at 01/13/17 1410 Author: Shanae Contreras MA CCC-CYLINDER BLOCK HOLE RELINER Service: (none) Author Type: Speech and Parachute Accessories Attacher ologist Filed: 01/13/17 1711 Date of Service: 01/13/17 141 Status: Signed Joint Cutter Machine: Shanae Contreras MA CCC-CYLINDER BLOCK HOLE RELINER (Speech and Language Pathologist) 01/13/17 1410 CYLINDER BLOCK HOLE RELINER Last Visit CYLINDER BLOCK HOLE RELINER Received On 01/13/17 Requires CYLINDER BLOCK HOLE RELINER Follow Up Yes Swallowing Assessment Eval Swallowing [...] g ok Liquids Thin liquids: regular consistency CYLINDER BLOCK HOLE RELINER Ready for Discharge Yes Dysphagia Goals Board Handler Goals Safe/efficient oral intake Pt will have [...] Service: Hospitalist Author Type: Physician Filed: 01/13/17 1528 Date of Service: 01/13/17 1025 Status: Signed Joint Cutter Machine: Hedy Hankins MD (Physician) [facility] Service: Hospitalist Progress Note Hospital Day: [...] chloride (IV) PRN Medications acetaminophen OR acetaminophen, llxeadfwruaxrjz-zgskkeljfbfpby-wutvqrkg, HYDROmorphone, ondansetron OR ondansetron, polyethylene glycol OBJECTIVE [...] elevated. No blood cultures were done at [place]. Disc ussed with Dr. Luna. Recommended to [...] AM This entry has been created using [employer] Speech Recognition software and I[employer] Connect. The entry has been reviewed and there may still exist sound alike word errors. onversion Trans action, Provider Unknown - 01/13/2017 5:13 AM PDT Nurse Progress Note by Olman Heredia RN at 01/13/17512 Author: Olman Heredia RN Service: (none) Author Type: Registered Nurse Filed: 01/13/17515 Date of Service: 01/13/17512 Status: Signed Joint Cutter Machine: Olman Heredia RN (Registered Nurse) Pt has [...] 01/12/171831 Date of Service: 01/12/171831 Status: Signed Joint Cutter Machine: Bebe Bennett RPH (Pharmacist) Clinical Pharmacy Note: [...] | | | Fingerstick | performed at [facility] [place] [place] | | LAB | | | | [address];[place], [place] | | | | | | [address] | | | | + + + [...] | | | Fingerstick | performed at [facility] [place] [place];[address] | | LAB | | | | [address];[place] | | | | | | [address] | | | | + + + [...] | | | | | performed at [facility], [address] | | | | | | [facility], | | | | | | [place] [address] | | | | | |OVALO | | | | | |1+ | | | | | |JOLYNN | | | | | |NORMAL PLT MORPH | | | | | |Testing performed at [facility], [facility] [place] [address] | | | | | | | [...] | | | (REF) | performed at [facility], [address] | | LAB | | | | [address], | | | | | | [place] [address] | | | | + + + [...] | | | | | | at [facility], [address] | | | | | | [address], | | | | | | [place] [address] | | | | + + + [...] | | | Fingerstick | performed at [facility];[address] | | LAB | | | | [address];[place], [place] | | | | | | [address] | | | | + + + [...] | | | Fingerstick | performed at [facility];[address] | | LAB | | | | [address];[place] | | | | | | [address] | | | | + + + [...] | | | Fingerstick | performed at [facility];[address] | | LAB | | | | [address];[place] | | | | | | [address] | | | | + + + [...] | | | | | [place] [address] | | | | + + + [...] | | | | | performed at [facility], [address] | | | | | | [facility], | | | | | | [place] [address] | | | | | |OVALO | | | | | |NORMAL PLT MORPH | | | | | |Testing performed at [facility], [address] [place] [address] | | | | | | | [...] EXTERNAL | | | | performed at [facility], [address] | | LAB | | | | [address], | | | | | | [place] [address] | | | | + + + [...] EXTERNAL | | | | performed at [facility], [address] | uIU/mL | LAB | | | | [address], | | | | | | [place] [address] | | | | + + + [...] + + | Hemoglobin | 5.7Comment: The [place] | 4.0 - 6.0 % | EXTERNAL [...] | | | | | performed at [facility], [address] | | | | | | [facility], | | | | | | [place] [address] | | | | + + + [...] | | | Cholesterol | performed at [facility], [address] | | LAB | | | , | [address], | | | | | Calculated, | [place] [address] | | | | | External | [...] [address] | | | | | | [facility], | | | | | | [place] [address] | | | | + + + [...]
--- OUTSIDE RECORDS SUMMARY | ~2019-05-10 | XMS | Encounter Summary ---
Demographics + + + | Address | [address] | | | [place] [address] | + + + | Home Phone | | + + + | Preferred Language | Unknown | + + + | Marital Status | | + + + | Hinduism Affiliation | 1038 | + + + | Race | Unknown | + + + | Ethnic Group | Unknown | + + + Author + + + | Author | [facility] | | | and [place] | + + + | Organization | [facility] | | | and [place] | [...] [place] | | | | | [address] | | + + + + + Care Team Providers + +------+ + | Care Airdrop Systems Technician Name | Role | Phone | [...] | +--------+ + + + + | 10/01/ | Telephone | [facility] | Carina DeweyZOIE | Lab Results | | 2018 | | [facility] [place] | [address] | | | | | [address] | [place] | | | | | [place] | [address] | | | | | [address] | | | | | | [phone] | | | +--------+ + + + [...]
--- OUTSIDE RECORDS SUMMARY | ~2019-05-10 | XMS | Encounter Summary ---
Demographics + + + | Address | [address] | | | [place] [address] | + + + | Home Phone | | + + + | Preferred Language | Unknown | + + + | Marital Status | | + + + | Evangelical Affiliation | 1038 | + + + | Race | Unknown | + + + | Ethnic Group | Unknown | + + + Author + + + | Author | and [facility] | | | and [place] | + + + | Organization | and [facility] | | | and [...] [place] | | | | | [address] | | + + + + + Care Team Providers + +------+ + | Care Director Of Retail Marketing Name | Role | Phone | + [...] | [address] | [address] | | | | | [place], [place] | [place], | | | | | [address] | [place] [address] | | | | | [phone] | [phone] | | | | | | | [...] + + | FERRITIN | Routin | 04/02/2018 | | Results for this | | | e | 4:03 AM | | procedure are in the | | | | PDT | | results section. | + +--------+ + + + documented in this encounter Results Ferritin (04/02/2018 4:03 AM PDT) + + + + + + | Component | Value | Ref Range | Performed | Pathologist | | | | | At | Signature | + + + + + + | Ferritin, | 1,230 (H) | 6 - 170 ng/mL | EXTERNAL | | | External | | | LAB | | + + + + + + + + | Specimen | + + | | + + + + + | Narrative | Performed At | + + + | Attending/Visit Provider: ADAMS CHARANYA, , , , , | EXTERNAL LAB | | [place], | | + + + + +---------+ [...]
--- OUTSIDE RECORDS SUMMARY | ~2019-05-10 | XMS | Encounter Summary ---
Demographics + + + | Address | [address] | | | [place] [address] | + + + | Home Phone | | + + + | Preferred Language | Unknown | + + + | Marital Status | | + + + | Jain Affiliation | 1038 | + + + | Race | Unknown | + + + | Ethnic Group | Unknown | + + + Author + + + | Author | [facility] | | | and Laloana | + + + | Organization | [facility] | | | and [...] | Beverly Berrying | ECON | [place] | | | | | [address] | | + + + + + Care Team Providers + +------+ + | Care Robotics Engineer Name | Role | Phone | [...] + | 04/01/ | Telephone | [facility] | RoyergeorgeJhoana | Hospitalization | | 2018 | | NEPHROLOGY [address] | M, DO [address] | | | | | [address] | [place] | | | | | [place], [place] | [place], [place] | | | | | [address] | [address] | | | | | [phone] | | | +--------+ + + + [...]
--- OUTSIDE RECORDS SUMMARY | ~2019-05-10 | XMS | Encounter Summary ---
Demographics + + + | Address | [address] | | | [place] [address] | + + + | Home Phone | | + + + | Preferred Language | Unknown | + + + | Marital Status | | + + + | Latter Day Affiliation | 1038 | + + + | Race | Unknown | + + + | Ethnic Group | Unknown | + + + Author + + + | Author | [facility] | | | and [place]ana | + + + | Organization | [facility] | | | and [...] [place] | | | | | [address] | | + + + + + Care Team Providers + +------+ + | Care Epic Anesthesia Analyst Name | Role | Phone | [...] | [address] | [place], [address] | | | | | [place], [place] | [place], [place] | | | | | [address] | [address] | | | | | [phone] | | | +--------+--------+ + + + [...]
--- OUTSIDE RECORDS SUMMARY | ~2019-05-10 | XMS | Encounter Summary ---
Demographics + + + | Address | [address] | | | [place] [address] | + + + | Home Phone [...] | Author | [facility] | | | and [place] | + + + | Organization | [facility] | | | and [...] [place] | | | | | [address] | | + + + + + Care Team Providers + +------+ + | Care Densitometrist Name | Role | Phone | + +------+ + PCP | Unavailable | + +------+ + Encounter Details +--------+ + + + + | Date | Type | Department | Care Team | Description | +--------+ + + + + | 12/31/ | Episode | [facility] | Soledad Fuentes RN | | | 2018 | Changes | SURGERY [address] | | | | | | [place], [place] | | | | | | [address] | | | | | | [phone] | | | +--------+ + + + [...]
--- OUTSIDE RECORDS SUMMARY | ~2019-05-10 | XMS | Encounter Summary ---
Demographics + + + | Address | [address] | | | [place] [address] | + + + | Home Phone | | + + + | Preferred Language | Unknown | + + + | Marital Status | | + + + | Mormonism Affiliation | 1038 | + + + | Race | Unknown | + + + | Ethnic Group | Unknown | + + + Author + + + | Author | [facility] | | | and [place] | + + + | Organization | [facility] [...] [place] | | | | | [address] | | + + + + + Care Team Providers + +------+ + | Care Office Technology Instructor Name | Role | Phone | [...] | | [address] | [place], [address] | | | | | [place], [place] | [place], [place] | | | | | [address] | [address] | | | | | [phone] | | | +--------+ + + + [...]
--- OUTSIDE RECORDS SUMMARY | ~2019-05-10 | XMS | Encounter Summary ---
Demographics + + + | Address | [address] | | | [place] [address] | + + + | Home Phone | | + + + | Preferred Language | Unknown | + + + | Marital Status | | + + + | Evangelical Affiliation | 1038 | + + + | Race | Unknown | + + + | Ethnic Group | Unknown | + + + Author + + + | Author | [facility] | | | and [place] | + + + | Organization | [facility] | | | and [place] [...] [place] | | | | | [address] | | + + + + + Care Team Providers + +------+ + | Care Correction Officer Head Name | Role | Phone | [...] | [address] | [address] | | | | | [place], [place] | [place], | | | | | [address] | [place] [address] | | | | | [phone] | [phone] | | | | | | | [...] | + +--------+ + + + | RENAL FUNCTION PANEL | Routin | 04/01/2018 | | Results for this | | | e | 11:45 AM | | procedure are in the | | | | PDT | | results section. | + +--------+ + + + documented in this encounter Results Renal Function Panel (04/01/2018 11:45 AM PDT) + + + + + + | Component | Value | Ref Range | Performed | Pathologist | | | | | At | Signature | + + + + + + | Na | 135 | 135 - 145 | EXTERNAL | | | | | mmol/L | LAB | | + + + + + + | K | 4.0 | 3.5 - 4.9 | EXTERNAL | | | | | mmol/L | LAB | | + + + + + + | Cl | 96 (L) | 99 - 109 mmol/L | EXTERNAL | | | | | | LAB | | + + + + + + | CO2 | 23 | 23 - 32 mmol/L | EXTERNAL | | | | | | LAB | | + + + + + + | Anion Gap | 20 | 5 - 20 mmol/L | EXTERNAL | | | | | | LAB | | + + + + + + | Glucose, | 123 (H) | 65 - 99 mg/dL | EXTERNAL | | | Fasting | | | LAB | | + + + + + + | BUN | 72 (H) | 8 - 25 mg/dL | EXTERNAL | | | | | | LAB | | + + + + + + | Creatinine | 8.1 (H) | 0.50 - 1.00 | EXTERNAL | | | | | mg/dL | LAB | | + + + + + + | Calcium | 8.0 (L) | 8.5 - 10.5 | EXTERNAL | | | | | mg/dL | LAB | | + + + + + + | Albumin | 2.6 (L) | 3.6 - 5.0 g/dL | EXTERNAL | | | | | | LAB | | + + + + + + | PHOSPHORUS | 7.7 (H) | 2.3 - 4.8 mg/dL | EXTERNAL | | | | | | LAB | | + + + + + + | Estimated | 6 (L)Comment: GFR <60: | mL/min/1.73_m2 | EXTERNAL | | | GFR | CHRONIC KIDNEY DISEASE, | | LAB | | | | IF FOUND OVER A 3 MONTH | | | | | | PERIOD. GFR <15: KIDNEY | | | | | | FAILURE. FOR | | | | | | AMERICANS, MULTIPLY THE | | | | | | CALCULATED GFR BY 1.210. | | | | | | This eGFR is calculated | | | | | | using the MDRD IDMS | | | | | | traceable equation. | | | | + + + + + + + + | Specimen | + + | | + + + + + | Narrative | Performed At | + + + | Attending/Visit Provider: , ADELINA LAMAS, , , , , | EXTERNAL LAB [...]
--- OUTSIDE RECORDS SUMMARY | ~2019-05-10 | XMS | Encounter Summary ---
Demographics + + + | Address | [address] | | | [place] [address] | + + + | Home Phone [...] | [facility] | | | and [place] | + + + | Organization | [facility] | | | and [...] [place] | | | | | [address] | | + + + + + Care Team Providers + +------+ + | Care Full Service Supervisor Name | Role | Phone | [...] + | 09/24/ | Telephone | [facility] | Zuleima CarinaZOIE | Other | | 2017 | | MEDICINE [place] | [address] | | | | | [address] | [place] | | | | | [place] | [address] | | | | | [address] | | | | | | [phone] | | | +--------+ + + + [...]
--- OUTSIDE RECORDS SUMMARY | ~2019-05-10 | XMS | Encounter Summary ---
Demographics + + + | Address | [address] | | | [place] [address] | + + + | Home Phone [...] | Author | [facility] | | | and [place] | + + + | Organization | [facility] | | | and [...] [place] | | | | | [address] | | + + + + + Care Team Providers + +------+ + | Care Enamel Sprayer Name | Role | Phone | + +------+ + PCP | Unavailable | + +------+ + Encounter Details +--------+ + + + + | Date | Type | Department | Care Team | Description | +--------+ + + + + | 10/15/ | Orders Only | [facility] [place] | Petra Sabillon W, | AUNG (acute kidney | | 2018 | | NEPHROLOGY [address] | [address] | injury) ([facility]) | | | | [address] | [address] [place] | (Primary Dx); | | | | [place], [place] | [place] [address] | Hyperphosphatemia | | | | [address] | [phone] | | | | | [phone] | | | +--------+ + + + [...] kidney failure, unspecified | + + | Hyperphosphatemia Disorders of phosphorus metabolism | + + documented in this encounter"
--- OUTSIDE RECORDS SUMMARY | ~2019-05-10 | XMS | Encounter Summary ---
Demographics + + + | Address | [address] | | | [place] [address] | + + + | Home Phone | | + + + | Preferred Language | Unknown | + + + | Marital Status | | + + + | Quaker Affiliation | 1038 | + + + | Race | Unknown | + + + | Ethnic Group | Unknown | + + + Author + + + | Author | [facility] | | | and [place] | + + + | Organization | [facility] | | | and [...] [place] | | | | | [address] | | + + + + + Care Team Providers + +------+ + | Care Intervention Teacher Name | Role | Phone | [...] + + | 08/31/ | Telephone | [facility] | Jhoana Barreto | Lab Results | | 2017 | | NEPHROLOGY [address] | M, DO [address] | | | | | [address] | [place], [address] | | | | | [place], [place] | [place] | | | | | [address] | [address] | | | | | [phone] | | | +--------+ + + + [...]
--- OUTSIDE RECORDS SUMMARY | ~2019-05-10 | XMS | Encounter Summary ---
Demographics + + + | Address | [address] | | | [place] [address] | + + + | Home Phone | | + + + | Preferred Language | Unknown | + + + | Marital Status | | + + + | Sabianist Affiliation | 1038 | + + + | Race | Unknown | + + + | Ethnic Group | Unknown | + + + Author + + + | Author | [facility] | | | and [place] | + + + | Organization | [facility] | | | and [place] [...] [place] | | | | | [address] | | + + + + + Care Team Providers + +------+ + | Care Sales Representative Name | Role | Phone | + +------+ + PCP | Unavailable | + +------+ + Encounter Details +--------+ + + + + | Date | Type | Department | Care Team | Description | +--------+ + + + + | 04/15/ | Hospital | [facility] | Yves Horta M | | | 1985 - | Encounter | [facility] | | | | | | GENERIC CONV [address] | | | | 06/06/ | | [place], | | | | 1995 | | [place] [address] | | | | | | [phone] | | | +--------+ + + + [...]
--- OUTSIDE RECORDS SUMMARY | ~2019-05-10 | XMS | Encounter Summary ---
Demographics + + + | Address | [address] | | | [place] [address] | + + + | Home Phone [...] | [facility] | | | and [place] | + + + | Organization | [facility] | | | and [...] + | Beverly Perez | ECON | [place] | | | | | [address] | | + + + + + Care Team Providers + +------+ + | Care Bargain Table Clerk Name | Role | Phone | [...] + | 09/24/ | Telephone | [facility] | Carina Dewey FNP | Referral | | 2017 | | MEDICINE [place] | [address] | | | | | [address] | [place], [place] | | | | | [place], [place] | [address] | | | | | [address] | | | | | | [phone] | | | +--------+ + + + [...]
--- OUTSIDE RECORDS SUMMARY | ~2019-05-10 | XMS | Encounter Summary ---
Demographics + + + | Address | [address] | | | [place] [address] | + + + | Home Phone | | + + + | Preferred Language | Unknown | + + + | Marital Status | | + + + | Uatsdin Affiliation | 1038 | + + + | Race | Unknown | + + + | Ethnic Group | Unknown | + + + Author + + + | Author | [facility] | | | and [place] | + + + | Organization | [facility] | | | and [...] [place] | | | | | [address] | | + + + + + Care Team Providers + +------+ + | Care Bank Worker Name | Role | Phone | [...] + + | 09/14/ | Telephone | [facility] | Jhoana Barreto | Left Without Being | | 2018 | | NEPHROLOGY [address] | M, DO [address] | Seen | | | | [address] | [place], [address] | | | | | [place], [place] | [place] | | | | | [address] | [address] | | | | | [phone] | | | +--------+ + + + [...]
--- OUTSIDE RECORDS SUMMARY | ~2019-05-10 | XMS | Clinical Summary ---
Demographics + + + | Address | [address] | | | [place] [address] | + + + | Home Phone | | + + + | Preferred Language | Unknown | + + + | Marital Status | Single | + + + | Buddhism Affiliation | Unknown | + + + [...] [place], | | | | | [place] [address] | | + + + + + Care Team Providers + +------+ + | Care Special Client Bus Driver Name | Role | Phone | + +------+ + | No Pcp Per Patient | PCP | Unavailable | + +------+ + Source Comments KATTY is fully live on both [facility] and [facility] In[facility] Allergies Not on File Medications [...] | | | + +--------+ +--------+-------+---------+--------+ | INSTRUMENTATION MANAGER MEDICAID | INSTRUMENTATION MANAGER | xxxxxxxx | 06/07/19 | | [...] | 1980 | [phone] | [place] [address] | | | carley | | | 3 (Home) | | + +--------+ +--------+ + +"
--- OUTSIDE RECORDS SUMMARY | ~2019-05-10 | XMS | Encounter Summary ---
Demographics + + + | Address | [address] | | | [place] [address] | + + + | Home Phone | | + + + | Preferred Language | Unknown | + + + | Marital Status | | + + + | Pentecostal Affiliation | 1038 | + + + | Race | Unknown | + + + | Ethnic Group | Unknown | + + + Author + + + | Author | [facility] | | | and [place] | + + + | Organization | [facility] [...] [place] | | | | | [address] | | + + + + + Care Team Providers + +------+ + | Care Sas Developer Name | Role | Phone | + +------+ + PCP | Unavailable | + +------+ + Encounter Details +--------+ + + + + | Date | Type | Department | Care Team | Description | +--------+ + + + + | 09/15/ | Documentati | [facility] [place] | Jhoana Barreto | | | 2019 | on | NEPHROLOGY [address] | M, DO [address] | | | | | [address] | [place], [address] | | | | | [place], [place] | [place], [place] | | | | | [address] | [address] | | | | | [phone] | | | +--------+ + + + [...] | Diagnosis | + + | Bronchitis - Primary Bronchitis, not specified as acute or chronic [...]
--- OUTSIDE RECORDS SUMMARY | ~2019-05-10 | XMS | Encounter Summary ---
Demographics + + + | Address | [address] | | | [place] [address] | + + + | Home Phone [...] + + | Author | [facility] | | | and [place] | + + + | Organization | [facility] | | [...] [place] | | | | | [address] | | + + + + + Care Team Providers + +------+ + | Care Market News Reporter Name | Role | Phone | + +------+ + PCP | Unavailable | + +------+ + Encounter Details +--------+ + + + + | Date | Type | Department | Care Team | Description | +--------+ + + + + | 12/23/ | Orders Only | [facility] | Provider, | | | 2019 | | SYSTEM GENERIC OP | MD [address] | | | | | CONVERSION [address] | [address] | | | | | [address] [place], [place] | [place] [address] | | | | | [address] | | | | | | [phone] | | | +--------+ + + + [...]
--- OUTSIDE RECORDS SUMMARY | ~2019-05-10 | XMS | Encounter Summary ---
Demographics + + + | Address | [address] | | | [place] [address] | + + + | Home Phone [...] Author | [facility] | | | and [place] | + + + | Organization | [facility] [...] + | Beverly Perez | ECON | [place] | | | | | [address] | | + + + + + Care Team Providers + +------+ + | Care Installation Manager Name | Role | Phone | [...] | | | | | | | [place] AV | | | | | | | ANAST,UP ARM | | | | | | | BASILIC | | | | | | | VEIN | | | | | | | TRANSPOSIT | | | | | | | [place] | | | | | | | [...] Description | +--------+---------+ + + + | 01/04/ | Surgery | [facility] | Xavier Gallagher | 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 Keep [...] + + +---------+ + + | B Ukjvslf-K-Fplms | Take 1 Tab by mouth. | [...] + + +---------+ + + | B Johxuqa-K-Ukoea | Take 1 tablet by | 30 [...] | | | | | | | [facility]]. | | | | | [...] | | | | | ([facility]) | | | | | | + [...] kg/m Intake/Output Summary (Last 24 hours) at 01/04/189 Last data filed at 01/04/18 1931 Gross [...] + | Extra | Done | | SERA | | | Lavender | | | [...] + + | [facility] | [address] | [place] | [phone] | | [facility] | | [address] | | | - LABORATORY | | [...] | | | Serum | | | [facility] | | [...] [address] | [place] | [phone] | | [facility] | | [address] | | | - LABORATORY | | [...] [address] | [place] | [phone] | | [facility] | | [address] | | | - LABORATORY | | [...] | Basophils | | K/uL | [facility] | | | | | | MEDICAL [...] [address] | [place] | [phone] | | [facility] | | [address] | | | - LABORATORY | | [...] [facility] | | | | | | [facility] | | | | | | [...] [facility] | | | | | | [facility] | | | | | | MEDICAL | | | | | | CENTER - | | | | | | LABORATORY | | + + + + + + | BUN | 26 (H) | 7 - 18 mg/dL | [facility] | | | | | | [facility] | | | | | | MEDICAL | | | | | | CENTER - | | | | | | LABORATORY | | + + + + + + | Creatinine | 6.41 (H) | 0.60 - 1.30 | [facility] | | | | | mg/dL | [facility] | | | | | | MEDICAL | | | | | | CENTER - | | | | | | LABORATORY | | + + + + + + | eGFR if not | 7 (L)Comment: GLOMERULAR | >=60 | [facility] | | | | FILTRATION | mL/min/1.73m2 | [facility] | | | IRAQI | RATE,ESTIMATED | | MEDICAL | | | | mL/min/1.39j5Fcif than | | CENTER - | | [...] [address] | [place] | [phone] | | [facility] | | [address] | | | - LABORATORY | | [...] ONCE PRN, Wheezing, | | | Starting 01/04/18 at 1946, | | | For 1 dose, Notify anesthesia if | | | patient is wheezing and does not | | | have a history of asthma or COPD | | | or current smoking., | | | Recovery/Phase I | | + +---+ | | | + +---+ + +-------+ +--------+---+ + | bupivacaine 0.25%-EPINEPHrine | Given | 01/05/20 | 30 mLs | | Surgical | | 1:200,000 injection PRN, | | 18 7:36 | | | Site | | Starting [facility] 01/04/18 at 1936, | | PM PDT | | | | | Intra-op | | | | | | + +-------+ +--------+---+ + + +---+ | | | + +---+ | dextrose 50% injection 12.5-25 | | | g 12.5-25 g, Intravenous, EVERY | | | 15 MIN PRN, Low Blood Sugar, Give | | | 12.5g (25 mL) IV if blood | | | glucose 50-69 mg/dL. Give 25g | | | (50 mL) IV if blood glucose < 50, | | | Starting e 01/04/18 at 1433, | | | Repeat [...]
--- OUTSIDE RECORDS SUMMARY | ~2019-05-10 | XMS | Encounter Summary ---
Demographics + + + | Address | [address] | | | [place] [address] | + + + | Home Phone [...] | [facility] | | | and [place] | + + + | Organization | [facility] | | | [...] + | Beverly Perez | ECON | [place] | | | | | [address] | | + + + + + Care Team Providers + +------+ + | Care Chief Business Development Officer Name | Role | Phone | [...] | | | | | | | [place] AV | | | | | | | ANAST,UP ARM | | | | | | | BASILIC | | | | | | | VEIN | | | | | | | TRANSPOSIT | | | | | | | [place] | | | | | | | [...] | | | | | [address] | [address] | | | | | [place] | [place] | | | | | [address] | [address] | | | | | [phone] | | | +--------+ + + + [...] +----+---+ + + | | 1 | [place] | | | | 6 | 43-degrees [...] by Man | | eral | Antecubital; qfmw-ork-dukugp | Reva Martin RN | [place] Self [...] 01/04/182051 by Man | | thor | wpqm-yvf-qniuly catheter system; | Dionicio Jeff RN | Neela Self RN | | IV | 22 gauge; 01/04/18; 2051 | | | +--------+ + + + | Airway | Placement Date: 07/06/17; | 07/06/171435 by | 01/04/18 1644 by | | | Placement Time: 1436; Attempts: | Kina Vela, SPIDER ASSEMBLER | Wesley Keita | | | 1; [...] Patient room; | | | | | Credit Risk Specialist; nicole mc; | | | | | [...] (meds per | | | | | COLUMNIST/COMMENTATOR pt very active ); | | | [...] 01/04/182118 by Man | | evelinal | iyqj-ruo-qygwmw catheter system; | Amanda Garcia RN | [...]
--- OUTSIDE RECORDS SUMMARY | ~2019-05-10 | XMS | Encounter Summary ---
Demographics + + + | Address | [address] | | | [place] [address] | + + + | Home Phone [...] | Author | [facility] | | | and Laloana | + + + | Organization | [facility] | | | and [...] [place] | | | | | [address] | | + + + + + Care Team Providers + +------+ + | Care Kapok And Cotton Machine Operator Name | Role | Phone | + +------+ + PCP | Unavailable | + +------+ + Reason for Visit + + + | Reason | Comments | + + + | Medication Prior | Nifedipine | | Authorization | | + + + Encounter Details +--------+ + + + + | Date | Type | Department | Care Team | Description | +--------+ + + + + | 09/29/ | Telephone | [facility] | Carina Dewey FNP | Medication Prior | | 2017 | | [facility] | [address] | Authorization | | | | [address] | [place] | (Nifedipine) | | | | [place] | [address] | | | | | [address] | | | | | | [phone] | | | +--------+ + + + [...]
--- OUTSIDE RECORDS SUMMARY | ~2019-05-10 | XMS | Encounter Summary ---
Demographics + + + | Address | [address] | | | [place] [address] | + + + | Home Phone | | + + + | Preferred Language | Unknown | + + + | Marital Status | | + + + | Christianity Affiliation | 1038 | + + + | Race | Unknown | + + + | Ethnic Group | Unknown | + + + Author + + + | Author | [facility] | | | and Laloana | + + + | Organization | [facility] | | [...] [place] | | | | | [address] | | + + + + + Care Team Providers + +------+ + | Care Ice Puller Name | Role | Phone | [...] | | [address] | [place] | | | | | [place], [place] | [place], [place] | | | | | [address] | [address] | | | | | [phone] | | | +--------+ + + + [...]
--- OUTSIDE RECORDS SUMMARY | ~2019-05-10 | XMS | Encounter Summary ---
Demographics + + + | Address | [address] | | | [place] [address] | + + + | Home Phone | | + + + | Preferred Language | Unknown | + + + | Marital Status | | + + + | Caodaism Affiliation | 1038 | + + + | Race | Unknown | + + + | Ethnic Group | Unknown | + + + Author + + + | Author | [facility] | | | and Laloana | + + + | Organization | [facility] [...] [place] | | | | | [address] | | + + + + + Care Team Providers + +------+ + | Care Sports Development Officer Name | Role | Phone [...] + + | 09/01/ | Office | [facility] | ZuleimaCarina FNP | Encounter to | | 2018 | Visit | [facility] [place] | [address] | establish care | | | | [address] | [place] | (Primary Dx); CKD | | | | [place] | [address] | (chronic kidney | | | | [address] | | disease), stage IV | | | | [phone] | | (HCC); AUNG (acute | | [...] of him. She used to work at [employer]. Also has worked at a [employer] not too long ago, was working und [...] with recent hospitalizations. Review of chart re [facility] hospitalization 07/03/17 for acute hypoxic respiratory failure from [facility]. Was 20 weeks with active methamphetamine abuse. 07/06/17 transferred to [facility]. Transferred to [facility] 07/16/17. terminated as it was threatening her life. Discharged and sent home and she recalls being told not to fill her Lasix prescription. 07/26/17 admitted to [facility] with acute respiratory failure with hypo tamera. Discharged 07/30/17. Dr Barreto has been following her acute kidney injury. She is olson ving labs done regularly for CBC and chemistry panel at [facility]. Unfortunately she now olson s stage IV [...] counseling and medication management 09/13/17 and 10/15/17 [facility] [facility] in [facility]. Since her recent hospitalization she has been clean and sober and off methamphetamine as we ll as tobacco. She started going back to congregational. She goes to [employer]. Unfortunately her living situation is not [...] Anemia Anxiety Arthritis CHF (congestive heart failure) ([facility]) Depression Encounter for blood transfusion Heart murmur [...] 2. CKD (chronic kidney disease), stage IV ([facility]) Keep up with Dr Barreto. Continue current [...] Differential; Future 3. AUNG (acute kidney injury) ([facility]) See #2 - Vitamin D, Deficiency Screen [...] today. I will also have my medical research assistant check into different [facility] doctors and internal medicine doctors in [place] to see if they can take her on as t he patient. In the meantime labs ordered with return to clinic appointment in 4 weeks in ca se she can't get in elsewhere for new patient consult. Try to improve living situation if po ssible. Keep visits scheduled with [email or web address]. Patient understands, accepts, and agrees with this plan. Greater than 45 minutes spent rahul patient regarding the above mentioned diagnoses in counseling and coordination of care. Po rtions of this report were transcribed using [employer] voice recognition [employer] e. Although effort was made in correcting [...] | Eosinophils | | K/uL | [facility] | | | | | | MEDICAL [...] [address] | [place] | [phone] | | [facility] | | [address] | | | - LABORATORY | | [...] | mL/min/1.73m2 | [facility]INA | | | BELGIAN | RATE,ESTIMATED | | MEDICAL | | | | mL/min/1.63z7Mvoo than | | CENTER - | | [...] | | | | mg/dL | [facility] | | | | | | MEDICAL [...] + | [facility] | [address] | [place] | [phone] | | [facility] | | [address] | | | - LABORATORY | | [...] | | Ratio | | | [facility] | | | | | | MEDICAL [...] + + | Performing | Address | City/State/[facility] | Phone Number | | Organization | | | | + + + + + | [facility] | [address] | [place] | [phone] | | [facility] | | [address] | | | - LABORATORY | | [...] + | [facility] | [address] | [place] | [phone] | | [facility] | | [address] | | | - LABORATORY | | [...] ST. | [address] | [place] | [phone] | | [facility] | | [address] | | | - LABORATORY | | [...] [address] | [place] | [phone] | | [facility] | | [address] | | | - LABORATORY | | [...]
--- OUTSIDE RECORDS SUMMARY | ~2019-05-10 | XMS | Encounter Summary ---
Demographics + + + | Address | [address] | | | [place] [address] | + + + | Home Phone | | + + + | Preferred Language | Unknown | + + + | Marital Status | | + + + | Zoroastrian Affiliation | 1038 | + + + | Race | Unknown | + + + | Ethnic Group | Unknown | + + + Author + + + | Author | [facility] | | | and Laloana | + + + | Organization | [facility] | | | and [...] [place] | | | | | [address] | | + + + + + Care Team Providers + +------+ + | Care Crm Marketing Executive Name | Role | Phone | + [...] NEPHROLOGY [address] | MD [address] | hypertension, | | | | [address] | [address] [place] | malignant | | | | [place], [place] | [place] [address] | | | | | [address] | [phone] | | | | | [phone] | | | +--------+ + + + [...]
--- OUTSIDE RECORDS SUMMARY | ~2019-05-10 | XMS | Encounter Summary ---
Demographics + + + | Address | [address] | | | [place] [address] | + + + | Home Phone | | + + + | Preferred Language | Unknown | + + + | Marital Status | | + + + | Mosque Affiliation | 1038 | + + + | Race | Unknown | + + + | Ethnic Group | Unknown | + + + Author + + + | Author | [facility] | | | and Laloana | + + + | Organization | [facility] | | [...] [place] | | | | | [address] | | + + + + + Care Team Providers + +------+ + | Care Healthcare Business Analyst Name | Role | Phone | [...] Encounter | [facility] | [place] [address] | | | | | EMERGENCY [address] | [address] | | | 04/27/ | | [place], [place] | [place] [address] | | | 1997 | | [address] | [phone] | | | | | [phone] | | | | | | | [...]
--- OUTSIDE RECORDS SUMMARY | ~2019-05-10 | XMS | Encounter Summary ---
Demographics + + + | Address | [address] | | | [place] [address] | + + + | Home Phone | | + + + | Preferred Language | Unknown | + + + | Marital Status | | + + + | Taoist Affiliation | 1038 | + + + | Race | Unknown | + + + | Ethnic Group | Unknown | + + + Author + + + | Author | [facility] | | | and Laloana | + + + | Organization | [facility] | | | and [...] [place] | | | | | [address] | | + + + + + Care Team Providers + +------+ + | Care Film Reproducer Name | Role | Phone | + +------+ + PCP | Unavailable | + +------+ + Reason for Visit + + + | Reason | Comments | + + + | Medication Refill | | + + + Encounter Details +--------+--------+ + + + | Date | Type | Department | Care Team | Description | +--------+--------+ + + + | 09/20/ | Refill | [facility] [place] | Jhoana Barreto | Medication Refill | | 2017 | | NEPHROLOGY [address] | M, DO [address] | | | | | [address] | [place] | | | | | [place], [place] | [place], [place] | | | | | [address] | [address] | | | | | [phone] | | | +--------+--------+ + + + [...]
--- OUTSIDE RECORDS SUMMARY | ~2019-05-10 | XMS | Encounter Summary ---
Demographics + + + | Address | [address] | | | [place] [address] | + + + | Home Phone [...] + | Author | [facility] | | | and [place] | + + + | Organization | [facility] | | | and [place] [...] [place] | | | | | [address] | | + + + + + Care Team Providers + +------+ + | Care Circus Train Supervisor Name | Role | Phone | + +------+ + PCP | Unavailable | + +------+ + Encounter Details +--------+ + + + + | Date | Type | Department | Care Team | Description | +--------+ + + + + | 03/27/ | Hospital | [facility] | Tom, | | | 1998 - | Encounter | [facility] | Fauzia Mcgovern MD | | | | | GENERIC CONV [address] | | | | 03/29/ | | [place], | | | | 1999 | | [place] [address] | | | | | | [phone] | | | +--------+ + + + [...]
--- OUTSIDE RECORDS SUMMARY | ~2019-05-10 | XMS | Encounter Summary ---
Demographics + + + | Address | [address] | | | [place] [address] | + + + | Home Phone [...] + | Author | [facility] | | | and [place] | + + + | Organization | [facility] | | | and [place] [...] + | Beverly Perez | ECON | [place] | | | | | [address] | | + + + + + Care Team Providers + +------+ + | Care Political Theory Professor Name | Role | Phone | + [...] | | | | disease) on | [place] | [place], [place] | | | | | dialysis | [address] [place] | [address] [place] | | | | | ([facility]) | [place], [place] | [place] | | | | | Procedures | [address] | [address] Phone: | | | | | [place] ESRD | Phone: | [phone] | | | | | RELATED SVC | [phone] | Fax: | | | | | MONTHLY | Fax: | [phone] | | | | | 20&/> YR OLD | [phone] | | | | | | 4/> [...] | | [address] | [place] | (Primary Dx) | | | | [place], [place] | [place], [place] | | | | | [address] | [address] | | | | | [phone] | | | +--------+ + + + [...] Barreto DO Medication Sig Dispense Refill B Quwgchv-B-Hgvre Acid (RENAL-KIT) 0.8 MG TABS Take 1 [...] is administered at an infusion clinic in [facility]]. 180.04 mL furosemide (LASIX) 40 mg [...] profile and adequacy. Harry Barreto DO CC: [place] Edwar Gallagher MD, FACS Nadir Lew MD, [...]
--- OUTSIDE RECORDS SUMMARY | ~2019-05-10 | XMS | Encounter Summary ---
Demographics + + + | Address | [address] | | | [place] [address] | + + + | Home Phone [...] + | Author | [facility] | | | and [place] | + + + | Organization | [facility] [...] [place] | | | | | [address] | | + + + + + Care Team Providers + +------+ + | Care Tool Crib Manager Name | Role | Phone | [...] | | [address] | [place] | | | | | [place], [place] | [place], [place] | | | | | [address] | [address] | | | | | [phone] | | | +--------+--------+ + + + [...]
--- OUTSIDE RECORDS SUMMARY | ~2019-05-10 | XMS | Encounter Summary ---
Demographics + + + | Address | [address] | | | [place] [address] | + + + | Home Phone [...] | Author | [facility] | | | and [place] | + + + | Organization | [facility] | | [...] [place] | | | | | [address] | | + + + + + Care Team Providers + +------+ + | Care Dough Maker Name | Role | Phone | + +------+ + PCP | Unavailable | + +------+ + Reason for Visit + + + | Reason | Comments | + + + | Care Coordination | | + + + Encounter Details +--------+ + + + + | Date | Type | Department | Care Team | Description | +--------+ + + + + | 07/19/ | Telephone | [facility] | Carina Dewey FNP | Care Coordination | | 2019 | | MEDIC[place] | [address] | | | | | [address] | [place] | | | | | [place], [place] | [address] | | | | | [address] | | | | | | [phone] | | | +--------+ + + + [...]
--- OUTSIDE RECORDS SUMMARY | ~2019-05-10 | XMS | Encounter Summary ---
Demographics + + + | Address | [address] | | | [place] [address] | + + + | Home Phone | | + + + | Preferred Language | Unknown | + + + | Marital Status | | + + + | Episcopalian Affiliation | 1038 | + + + | Race | Unknown | + + + | Ethnic Group | Unknown | + + + Author + + + | Author | [facility] | | | and [place] | + + + | Organization | [facility] | | | and [...] + | Beverly Perez | ECON | [place] | | | | | [address] | | + + + + + Care Team Providers + +------+ + | Care Fiber Technician Name | Role | Phone | [...] (HCC); | | | | [address] [place] | [place] | state, | | | | [place], [place] | [place], [place] | incidental | | | | [address] | [address] | | | | | [phone] | | | +--------+ + + + [...] ST. | [address] | [place] | [phone] | | [facility] | | [address] | | | - LABORATORY | | [...]
--- OUTSIDE RECORDS SUMMARY | ~2019-05-10 | XMS | Encounter Summary ---
Demographics + + + | Address | [address] | | | [place] [address] | + + + | Home Phone [...] Author | [facility] | | | and [place] | + + + | Organization | [facility] | | | and [...] [place] | | | | | [address] | | + + + + + Care Team Providers + +------+ + | Care Internal Controls Analyst Name | Role | Phone | [...] | M, DO [address] | injury) ([facility]) | | | | [address] | [place], [address] | (Primary Dx) | | | | [place], [place] | [place], [place] | | | | | [address] | [address] | | | | | [phone] | | | +--------+ + + + [...]
--- OUTSIDE RECORDS SUMMARY | ~2019-05-10 | XMS | Encounter Summary ---
Demographics + + + | Address | [address] | | | [place] [address] | + + + | Home Phone | | + + + | Preferred Language | Unknown | + + + | Marital Status | Single | + + + | Jehovah'S Witness Affiliation | Unknown | + + + [...] [place], | | | | | [place] [address] | | + + + + + Care Team Providers + +------+ + | Care Leather Belt Shaper Name | Role | Phone | + +------+ + | No Pcp Per Patient | PCP | Unavailable | + +------+ + Encounter Details +--------+ + + + + | Date | Type | Department | Care Team | Description | +--------+ + + + + | 07/05/ | Document-Sc | UNKNOWN DEPARTMENT | Unknown . | | | 2012 | anned | [address] | | | | | | [address] | | | | | | [place], [place] | | | | | | [address] | | | +--------+ + + + [...]
--- OUTSIDE RECORDS SUMMARY | ~2019-05-10 | XMS | Encounter Summary ---
Demographics + + + | Address | [address] | | | [place] [address] | + + + | Home Phone [...] | Author | [facility] | | | and [place] | + + + | Organization | [facility] | | | and [place] [...] + | Beverly Berrying | ECON | [place] | | | | | [address] | | + + + + + Care Team Providers + +------+ + | Care Public Information Relations Manager Name | Role | Phone | [...] | | [address] | [place], [address] | ([facility]); Essential | | | | [place], [place] | [place] | hypertension, | | | | [address] | [address] | malignant | | | | [phone] | | | +--------+ + + + [...]
--- OUTSIDE RECORDS SUMMARY | ~2019-05-10 | XMS | Encounter Summary ---
Demographics + + + | Address | [address] | | | [place] [address] | + + + | Home Phone [...] Author | [facility] | | | and [place] | + + + | Organization | [facility] [...] [place] | | | | | [address] | | + + + + + Care Team Providers + +------+ + | Care Cushion Stuffer Name | Role | Phone | + [...] | | [address] | [place], [address] | | | | | [place], [place] | [place], [place] | | | | | [address] | [address] | | | | | [phone] | | | +--------+--------+ + + + [...]
--- OUTSIDE RECORDS SUMMARY | ~2019-05-10 | XMS | Encounter Summary ---
Demographics + + + | Address | [address] | | | [place] [address] | + + + | Home Phone | | + + + | Preferred Language | Unknown | + + + | Marital Status | | + + + | Jainism Affiliation | 1038 | + + + | Race | Unknown | + + + | Ethnic Group | Unknown | + + + Author + + + | Author | [facility] | | | and [place] | + + + | Organization | [facility] | | | and [place] [...] + | Beverly Perez | ECON | [place] | | | | | [address] | | + + + + + Care Team Providers + +------+ + | Care Rhia Name | Role | Phone | + [...] | | | | | injury) | [place] | [place], [place] | | | | | ([facility]) | [address] [place] | [address] [place] | | | | | Procedures | [place], [place] | [place] | | | | | [place] OFF[place] | [address] | [address] Phone: | | | | | OUTPATIENT | Phone: | [phone] | | | | | VISIT 25 | [phone] | Fax: | | | | | MINUTES | Fax: | [phone] | | | | | | [phone] | | +--------+--------+ + + + + Encounter Details +--------+ + + + + | Date | Type | Department | Care Team | Description | +--------+ + + + + | 11/22/ | Off-Site | [facility] [place] | Jhoana Barreto | End stage renal | | 2018 | Visit | NEPHROLOGY [address] | M, DO [address] | disease (HCC) | | | | [address] | [place], [address] | (Primary Dx); | | | | [place], [place] | [place] | Essential | | | | [address] | [address] | hypertension, | | | | [phone] | | malignant; 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), atypical | | | | | | (HCC) | +--------+ + + + + [...] + + + | Blood Pressure | 162/73 | 11/22/2017 6:06 PM | | | | | PDT | | + + + + + | Pulse | - | - | | + + + + + | Temperature | 36.6 C (97.9 F) | 11/22/2017 6:06 PM | | | | | PDT [...] encounter Progress Notes Jhoana Barreto DO - 11/22/2017 10:00 AM PDT Subjective: DIALYSIS NOTE Patient ID: Aurea Perez is a 37 y.o. female. 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 She states that she is concerned about having a stable place to live. She de nies headaches, cramps, or pruritus. She does attend all prescribed HD treatments, this wed. Apparently HUS is responding to the IV Eculizumab , hematologically. Outpatient Prescriptions Marked as Taking for the 11/22/17 encounter (Off-Site Visit) with Kristie Barreto DO Medication Sig Dispense Refill B Nobpskz-V-Kcznb Acid (RENAL-KIT) 0.8 MG TABS Take 1 tablet by mouth Daily. 30 tablet 11 carvedilol (COREG) 6.25 mg tablet Take 4 tablets by mouth 2 times daily (with breakfast & dinner). [DISCONTINUED] carvedilol (COREG) 6.25 mg tablet Take 1 tablet by mouth 2 times daily ( with breakfast & dinner). (Patient taking differently: Take 25 mg by mouth 2 times daily (wi th breakfast & dinner).) 60 tablet 3 cholecalciferol (VITAMIN D-3) 1,000 units tablet Take 1 tablet by mouth Daily. diphenhydrAMINE (BENADRYL) 25 mg tablet Take 25 mg by mouth nightly as needed for Itchi ng. eculizumab (SOLIRIS) 10 mg/mL injection Inject 120 mLs into the vein Every 30 days. [Th is is administered at an infusion clinic in [facility]]. 180.04 mL furosemide (LASIX) 40 mg tablet Take 2 tablets by mouth Daily. 60 tablet 3 hydrALAZINE (APRESOLINE) 50 MG tablet Take 50 mg by mouth 2 times daily. lisinopril (PRINIVIL, ZESTRIL) 20 mg tablet Take 1 tablet by mouth Daily. 30 tablet 3 NIFEdipine (ADALAT CC) 90 MG 24 hr tablet Take 1 tablet by mouth 2 times daily. 60 tabl et 3 sucroferric oxyhydroxide (VELPHORO) 500 mg chewable tablet Take 1 tablet by mouth 3 fahad es daily (with meals). 90 tablet 3 Review of Systems Objective: BP 162/73 | Temp 36.6 C (97.9 F) EDW 51 kg Physical Exam Heart: Regular rate and rhythm with no S3, S4, murmur or rub. Lungs: CTA bilaterally. No rales or wheezes. Abdomen: soft, obese, nontender, NABS. Extremities: no edema, clubbing, cyanosis, or foot ulcers. LAB: BUN 57, Cr 7.53, K+ 4.4, HCO3 19, Ca++ 9.0, phosphorus 8.4, albumin 4.2, last PTH 152 Hb 11.0, spKT/V = 2.08. Assessment: 1. ESRD--I think that given the total chronicity that she is likely End-Stage now also, g iven her baseline Scr, prior to treatment? 2. Hypertension-- improved control although she may need diligence for her physiologic dr pancho weight. 3. Anemia 2 to HUS/TTP, and CKD-- her Hb appears to be improving. He did recheck her iron stores next month. 4. CKD/MBD--I discussed with Ayesha that her serum phosphorus is trending upward. I r eviewed with her features of a <1000 mg P04 restriction. 5. Nutrition--excellent. 6. HUS/TTP-- apparently this is remaining in remission on her Eculizumab infusions. 7. Transplantation--primary barrier to success may be her unstable home environment and la ck of social support. 8. Remote history of substance abuse--historically she states that she is in abstine nce. Plan: 1. I reviewed with Aurea features of a <1000 mg phosphorus restriction. 2. Will adjust UF and her target weight as needed to optimize her blood pressure control g oing forward. 3. Again, I think that she is End Stage, at this point. She will need construction of a n ative AVF and I reinforced this to her. 4. Will recheck her in 2 weeks . 5. Will recheck her PTH, iron profile and adequacy next month. : [facility] MD, FACS Nadir Lew MD, Hem/Onc, [facility] documented in thi s encounter Plan of Treatment Not on filedocumented as of this encounter Visit Diagnoses + + | Diagnosis | + + | End stage renal disease (HCC) - Primary End stage renal disease | + + | Essential hypertension, malignant | + + | HUS (hemolytic uremic syndrome), atypical (HCC) Hemolytic-uremic syndrome | + + documented in this encounter"
--- OUTSIDE RECORDS SUMMARY | ~2019-05-10 | XMS | Encounter Summary ---
Demographics + + + | Address | [address] | | | [place] [address] | + + + | Home Phone [...] | Author | [facility] | | | and Laloana | + + + | Organization | [facility] [...] [place] | | | | | [address] | | + + + + + Care Team Providers + +------+ + | Care Sleep Lab Technologist Name | Role | Phone | + +------+ + PCP | Unavailable | + +------+ + Encounter Details +--------+ + + + + | Date | Type | Department | Care Team | Description | +--------+ + + + + | 11/24/ | Documentati | [facility] [place] | Jhoana Barreto | | | 2019 | on | NEPHROLOGY [address] | M, DO [address] | | | | | [address] | [address] | | | | | [place], [place] | [place], [place] | | | | | [address] | [address] | | | | | [phone] | | | +--------+ + + + [...] encounter Progress Notes Jhoana Barreto DO - 11/24/2018 11:59 PM PDT Subjective: DIALYSIS NOTE Patient ID: Aurea Perez is a 38 y.o. female. 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 She has recently moved to the [facility] [place]. Repor tedly she is staying with her sister in [place]. She has been making all of her prescribe d treatments. No complaints. MEDS: Outpatient Medications Marked as Taking for the 11/24/18 encounter (Documentation) with Angel Barreto DO Medication Sig Dispense Refill azithromycin (ZITHROMAX) 250 mg tablet Take 2 tablets by mouth on day 1, and 1 tablet b y mouth every day 6 tablet 0 calcitRIOL (ROCALTROL) 0.5 MCG capsule Take 1 capsule by mouth Three times a week. 30 c apsule carvedilol (COREG) 12.5 mg tablet Take 1 tablet by mouth 2 times daily (with breakfast & dinner). 60 tablet 5 furosemide (LASIX) 80 mg tablet Take 1 tablet by mouth Daily. 90 tablet 4 lisinopril (PRINIVIL, ZESTRIL) 10 mg tablet Take 1 tablet by mouth Daily. 90 tablet 3 ondansetron (ZOFRAN) 4 mg tablet Take 1 tablet by mouth every 12 hours as needed for Na usea. 20 tablet 3 vitamin (CITRANATAL HARMONY) 27-1-260 mg capsule Take 1 capsule by mouth Daily . 90 capsule 3 sevelamer carbonate (RENVELA) 800 mg tablet Take 1 tablet by mouth 4 times daily (befor e meals and nightly). 120 tablet 11 Current Facility-Administered Medications for the 11/24/18 encounter (Documentation) with Andrew Barreto DO Medication Dose Route Frequency Provider Last Rate Last Dose levalbuterol (XOPENEX HFA) 45 mcg/puff inhaler 2 puff 2 puff Inhalation RT Q4H PRN Arley Barreto DO Allergies Allergen Reactions Codeine Anaphylaxis Imitrex [Sumatriptan] Anaphylaxis Morphine Other (See Comments) Headache Objective: BP 153/75 | Temp 36.7 C (98 F) EDW 46 kg Physical Exam Heart: Regular rate and rhythm with no S3, S4, murmur or rub. Lungs: CTA bilaterally. No rales or wheezes. Abdomen: soft, obese, nontender, NABS. Extremities: no edema, no clubbing, or cyanosis. No foot ulcers. Lab: BUN 46, Cr 5.3, K+ 4.7, HCO3 23, albumin 4.2, Ca++ 9.8, P0 4 3.7, Hb 11.6, T sat 29%, spKT/V = 2.44. Assessment: 1. ESRD--she appears well dialyzed clinically in the current Rx. Her intradialytic fluid gains have improved. 2. Hypertension--BP control is been improved from review of the data in [facility]. 3. 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 Hb is above target, therefore Mircera is on hold. Her iron stores appear adequate. 4. CKD/MBD--she appears more compliant with her renal diet and phosphorus control is johny edly improved.we will recheck her PTH next month. 5. Nutrition--her appetite is excellent on the current Rx. 6. HUS/TTP-- in remission. 7. Transplantation--primary barrier to success may be her unstable home environment and la ck of social support. 8. Remote history of substance abuse--last urine drug screen was negative. Plan: 1. Her compliance appears improved this month. She appears to be following her renal diet and fluid restriction better. 2. Will hold her Mircera and resume once the Hb is <11.0 g/dl. 3. Will recheck her iron profile, PTH next month. Will recheck her in 1 week. Electronically signed by Jhoana Barreto DO. 12/05/18 19:35 CC: [facility], Kael Scruggs documented in thi s encounter Plan of [...]
--- OUTSIDE RECORDS SUMMARY | ~2019-05-10 | XMS | Encounter Summary ---
Demographics + + + | Address | [address] | | | [place] [address] | + + + | Home Phone | | + + + | Preferred Language | Unknown | + + + | Marital Status | | + + + | Caodaism Affiliation | 1038 | + + + | Race | Unknown | + + + | Ethnic Group | Unknown | + + + Author + + + | Author | and [facility] | | | and [place] | + + + | Organization | and [facility] | | | and [place] [...] + | Beverly Perez | ECON | [place] | | | | | [address] | | + + + + + Care Team Providers + +------+ + | Care Group Work Program Aide Name | Role | Phone | + +------+ + PCP | Unavailable | + +------+ + Reason for Referral Evaluate & Treat (Routine) +--------+ + + + + + | Status | Reason | Specialty | Diagnoses / | Referred By | Referred To | | | | | Procedures | Contact | Contact | +--------+ + + + + + | Closed | Specialty | Surgery / | Diagnoses | Stroemel, | Field, | | | Services | General | ESRD (end | Jhoana Flowers, | Xavier Huynh, | | | Required | Surgery | stage renal | DO [address] | [address] | | | | | disease) | [place], [place] | [address] | | | | | ([facility]) | [address] [place] | [place], | | | | | | [place], [place] | [place] [address] | | | | | | [address] | Phone: | | | | | | Phone: | [phone] | | | | | | [phone] | Fax: | | | | | | Fax: | [phone] | | | | | | [phone] | | +--------+ + + + + + + + | Scheduling Instructions | + + | If unable to get a hold of patient, call Linda Roman RN, Nurse [place] at | | [phone] on to schedule. | + + Encounter Details +--------+ + + + + | Date | Type | Department | Care Team | Description | +--------+ + + + + | 10/20/ | Orders Only | [facility] | Jhoana Barreto | ESRD (end stage | | 2018 | | NEPHROLOGY [address] | M, DO [address] | renal disease) ([facility]) | | | | [address] | [place] | (Primary Dx) | | | | [place] | [place] | | | | | [address] | [address] | | | | | [phone] | | | +--------+ + + + [...] | + + +--------+ + + | * [facility] General | Outpatient | Routin | ESRD (end stage | Ordered: 10/20/2017 | | Surgery - AMB | Referral | e | renal disease) ([facility]) | | | Referral | | | | | + + +--------+ + + documented as of this encounter Visit Diagnoses + + | Diagnosis | + + | ESRD (end stage renal disease) (HCC) - Primary End stage renal disease | + + documented in this encounter"
--- OUTSIDE RECORDS SUMMARY | ~2019-05-10 | XMS | Encounter Summary ---
Demographics + + + | Address | [address] | | | [place] [address] | + + + | Home Phone [...] | Author | [facility] | | | and [place]aloana | + + + | Organization | [facility] | | [...] [place] | | | | | [address] | | + + + + + Care Team Providers + +------+ + | Care Material Mixer Name | Role | Phone | + [...] | | [address] | [place] | | | | | [place], [place] | [place], [place] | | | | | [address] | [address] | | | | | [phone] | | | +--------+--------+ + + + [...]
--- OUTSIDE RECORDS SUMMARY | ~2019-05-10 | XMS | Encounter Summary ---
Demographics + + + | Address | [address] | | | [place] [address] | + + + | Home Phone | | + + + | Preferred Language | Unknown | + + + | Marital Status | | + + + | Muslim Affiliation | 1038 | + + + | Race | Unknown | + + + | Ethnic Group | Unknown | + + + Author + + + | Author | [facility] | | | and [place] | + + + | Organization | [facility] | | [...] + | [place] | ECON | [place] | | | | | [address] | | + + + + + Care Team Providers + +------+ + | Care Monotype Mechanic Name | Role | Phone | [...] | | | AUNG (acute | Petra W, | Jhoana Flowers DO | | | | | kidney | MD [address] | | | | | injury) | [place] | [place] [place] | | | | | ([facility]) | [address] [place] | [address] [place] | | | | | Procedures | [place], [place] | [place] | | | | | [place] OFFICE | [address] | [address] Phone: | | | | | OUTPATIENT | Phone: | [phone] | | | | | VISIT 25 | [phone] | Fax: | | | | | MINUTES | Fax: | [phone] | | | | | | [phone] | | +--------+--------+ + + + + Encounter Details +--------+---------+ + + + | Date | Type | Department | Care Team | Description | +--------+---------+ + + + | 08/11/ | Office | [facility] | Jhoana Barreto | AUNG (acute kidney | | 2018 | Visit | NEPHROLOGY [address] | M, DO [address] | injury) ([facility]) | | | | [address] | [address] | (Primary Dx); | | | | [place], [place] | [place], [place] | Hemolysis, elevated | | | | [address] | [address] | liver enzymes, and | | | | [phone] | | low platelet count | | | | | | (HELLP) syndrome in | | | | | | second trimester; | | | | | | TTP (thrombotic | | | | | | thrombocytopenic | | | | | | purpura) ([facility]); | | | | | | Essential | | | | | | hypertension, | | | | | | malignant; Chronic | | | | | | kidney disease, | | | | | | stage IV (severe) | | | | | | ([facility]) | +--------+---------+ + + + Social History [...] + + + | Blood Pressure | 118/78 | 08/11/2017 11:02 AM | | | | | PST | | + + + + + | Pulse | 85 | 08/11/2017 11:02 AM | | | | | PST | | + + + + + | Temperature | 36.8 C (98.3 F) | 08/11/2017 11:02 AM | | | | | PST | | + + + + + | Respiratory Rate | 18 | 08/11/2017 11:02 AM | | | | | PST | | + + + + + | Oxygen Saturation | 100% | 08/11/2017 11:02 AM | | | | | PST | | + + + + + | Inhaled Oxygen | - | - | | | Concentration | | | | + + + + + | Weight | 52.4 kg (115 lb 8.3 | 08/11/2017 11:02 AM | | | | oz) | PST | | + + + + + | Height | 167.6 cm (5' 6") | 08/11/2017 11:02 AM | | | | | PST | | + + + + + | Body Mass Index | 18.65 | 08/11/2017 11:02 AM | | | | | PST | | + + + + + documented in this encounter Progress Jhoana Trammell DO - 08/11/2017 11:00 AM PST Subjective: NEPHROLOGY Patient ID: Aurea Perez is a 37 y.o. female. 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 She received plasmapheresis, IVIG, and a renal core Bx was done on 07/09/2017 at [facility] showed 17 glomeruli all together, findings on [...] in conjunction with MFM and Nephrology, at [facility] on 07/17/2017. Her picture , HTN,and hemolysis slowly improved from there. She was read[facility] ER on 07/26 to 07/30 with acute pulmonary ed kristi, accelerated HTN, and Scr 2.83 mg/dl which progressed to 3.12 mg/dl but after diuresis w ith IV lasix. Her PLT's were improved from 203,000 on arrival to 242,000 which suggested ashish t hemolysis had ceased. She did not have headache , neurologic signs, fever with that ad mission. She states that she feels better Since DC on PO lasix, and denies DO, edema, headaches or nausea. PAST MEDICAL HISTORY: 1. History of hypertension 4 years, per the patient. 2. Hypertensive emergency, HUS/TTP, associated AUNG as above. 3. She does admit to preeclampsia with her prior to this one. She states that s he was informed not to attempt to conceive again by the managing physicians at that time. 4. Acute CHF, 07/04/17 requiring intubation and loop diuretics. Apparently, an echocardiog alex was done at [facility] on 07/18/17 which shows an LVEF = 52%, moderate AR, moderate TR, mode rate increased PAP. Outpatient Prescriptions Marked as Taking for the 08/11/17 encounter (Appointment) with Robin Barreto, DO Medication Sig Dispense Refill carvedilol (COREG) 25 mg tablet Take 1 tablet by mouth 2 times daily (with breakfast & dinner). 60 tablet 0 furosemide (LASIX) 40 mg tablet Take 1 tablet by mouth Daily. 30 tablet 0 NIFEdipine (ADALAT CC) 60 MG 24 hr tablet Take 1 tablet by mouth Daily. 30 tablet 0 oxyCODONE (ROXICODONE) 5 mg tablet Take 1 tablet by mouth every 6 hours as needed for P ain. 15 tablet 0 pantoprazole (PROTONIX) 40 mg tablet Take 1 tablet by mouth every morning (before break fast). 30 tablet 0 potassium chloride (KLOR-CON) 10 MEQ ER tablet Take 1 tablet by mouth Every other day. 15 tablet 0 Allergies Allergen Reactions Codeine Anaphylaxis Sumatriptan Anaphylaxis Review of Systems Objective: LMP (LMP Unknown) Physical Exam Heart: Regular rate and rhythm with no S3, S4, murmur or rub. Lungs: CTA bilaterally. No rales or wheezes. Abdomen: soft, obese, nontender, NABS. Extremities: no edema, clubbing, cyanosis. No livedo. Lab Results Component Value Date NAEX 136 08/09/2017 KEX 3.1 (A) 08/09/2017 CLEX 96 08/09/2017 CO2EX 22 08/09/2017 BUNEX 47 (A) 08/09/2017 CREEX 3.12 (A) 08/09/2017 EGFREX 17 (A) 08/09/2017 GLUEX 118 (A) 08/09/2017 PHOSEX 4.0 08/09/2017 Lab Results Component Value Date WBCEX 7.4 08/09/2017 HGBEX 10.9 (A) 08/09/2017 HCTEX 31.5 (A) 08/09/2017 PLTEX 242 08/09/2017 Urine Pro/Cr ratio = Lab Results Component Value Date PRORNDU 37 (H) 07/26/2017 PROTCREATUR 1.95 (H) 07/26/2017 Lab Results Component Value Date SPECIFICGRAV 1.006 07/26/2017 COLORUA Straw 07/26/2017 CLARITYUA Clear 07/26/2017 PHUR 7.0 07/26/2017 PROTUA 30 mg/dL (A) 07/26/2017 BLOODU Moderate (A) 07/26/2017 GLUCOSEU Negative 07/26/2017 KETONES Negative 07/26/2017 Assessment: 1. Resolving AUNG with Stage IV CKD-- suspicious for eclampsia induced TTP vs. HELLP syndro me? The hemolytic component appears to have resolved as her PLT's are now stable, and she lacks purpura, or oliguria. She does appear to have s ustained some residual nephron loss. 3. Hypertension-- improved control. 4. Anemia-- doubt AHA or TMA currently with the stable to improving PLT count. She could a dditionally have a hypoproliferative anemia 2 decreased EPO synthesis at this GFR? 5. Very remote, recreational methamphetamine use--urine drug screen last Admission, was N egative. 6. Acute CHF -- resolved. Suspect that this was 2 to her accelerated HTN and recent AUNG ? 7. s/p therapeutic termination, 20 week IUP-- progressing OK per local [employer] consultants , locally. Plan: 1. Overall, she appears improved on PE. She does appear to have markedly improved BP cont rol on her current regimen and loop diuretic. I had a very lengthy discussion, as before, with Aurea that she does appear to have john tained some significant nephron loss during this ordeal. I was roxana that her that there is roughly 50% chance that her GFR may improve with time, b ut also the potential for her port gamble GFR to worsened, and that only time would tell. Improv ed control of her BP will very likely slow any progression. 2. I reiterated that she should refrain from any NSAID use indefinitely for now. 3. In light of her Sk+ will have her take the KCl as 10 mEq daily to target her serum K+ > 3.5 mEq/L. 4. Will plan to see her back in approximately 1 mo. at the [facility] at [place], [place]. She will have a CBC, CMP, PO4, HbA1c, iPTH, lipid profile, and 24 Hour Urine, one we ek prior to that. : MD Antonio Curtis DO documented in thi s encounter Plan of Treatment Not on filedocumented as of this encounter Procedures + +--------+ + + + | Procedure Name | Priori | Date/Time | Associated Diagnosis | Comments | | | ty | | | | + +--------+ + + + | LABS - EXTERNAL SCAN | | 08/23/2017 | | Results for this | | | | 12:00 AM | | procedure are in the | | | | PDT | | results section. | + +--------+ + + + | LABS - EXTERNAL SCAN | | 08/02/2017 | AUNG (acute kidney | Results for this | | | | 12:00 AM | injury) (HCC) | procedure are in the | | | | PST | Hemolysis, elevated | results section. | | | | | liver enzymes, and | | | | | | low platelet count | | | | | | (HELLP) syndrome in | | | | | | second trimester | | | | | | Essential | | | | | | hypertension, | | | | | | malignant Chronic | | | | | | kidney disease, | | | | | | stage IV (severe) | | | | | | (HCC) TTP | | | | | | (thrombotic | | | | | | thrombocytopenic | | | | | | purpura) (HCC) | | + +--------+ + + + documented in this encounter Results LABS - EXTERNAL SCAN (08/23/2017 12:00 AM PDT) + + + | Narrative | Performed At | + + + | Ordered by an | | | unspecified provider. | | + + + LABS - EXTERNAL SCAN (08/02/2017 12:00 AM PST) + + + | Narrative | Performed At | + + + | Ordered by an | | | unspecified provider. 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
--- OUTSIDE RECORDS SUMMARY | ~2019-05-10 | XMS | Encounter Summary ---
Demographics + + + | Address | [address] | | | [place] [address] | + + + | Home Phone [...] + | Author | [facility] | | | and Laloana | + + + | Organization | [facility] | | | and Laloana [...] + | Beverly Perez | ECON | [place] | | | | | [address] | | + + + + + Care Team Providers + +------+ + | Care Bridge Operator Name | Role | Phone | [...] + + | Closed | Specialty | Home Health | Diagnoses | Ernandez, | | | | Services | Services | AUNG (acute | Héctor Regan MD | | | | Required | | kidney | [address] | | | | | injury) | [address] | | | | | | ([facility]) | [place], | | | | | | | [place] [address] | | | | | | | Phone: | | | | | | | [phone] | | | | | | | Fax: | | | | | | | [phone] | | +--------+ + + + + + Reason for Visit Auth/Cert +--------+--------+ + + + + | Status | Reason | Specialty | Diagnoses / | Referred By | Referred To | | | | | Procedures | Contact | Contact | +--------+--------+ + + + + | | | | Diagnoses | | | | | | | | | | | | | | Hypertension | | | | | | | CHF | | | +--------+--------+ + + + + Encounter Details +--------+ + + + + | Date | Type | Department | Care Team | Description | +--------+ + + + + | 07/26/ | Hospital | [facility] | Shahab Luther MD | AUNG (acute kidney | | 2018 - | Encounter | [facility] | [address] | injury) ([facility]) | | | | [address] | [facility] [place] | (Primary Dx); Acute | | 07/30/ | | [facility] [place] [address] | [id number] | pulmonary edema | | 2018 | | [phone] | | ([facility]); Other | | | | | Héctor Ernandez MD | 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 ([facility]); | | | | | [place] | Acute respiratory | | | | | [id number] | failure with hypoxia | | | | | | ([facility]); 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) ([facility]); | | | | | | Anemia secondary to | | | | | | renal failure | +--------+ + + + + Social [...] + + + | Blood Pressure | 174/96 | 07/30/2017 3:10 PM | | | | | PST | | + + + + + | Pulse | 82 | 07/30/2017 3:10 PM | | | | | PST | | + + + + + | Temperature | 36.8 C (98.3 F) | 07/30/2017 3:10 PM | | | | | PST | | + + + + + | Respiratory Rate | 18 | 07/30/2017 3:10 PM | | | | | PST | | + + + + + | Oxygen Saturation | 100% | 07/30/2017 3:10 PM | | | | | PST | | + + + + + | Inhaled Oxygen | - | - | | | Concentration | | | | + + + + + | Weight | 59 kg (130 lb) | 07/30/2017 5:40 AM | | | | | PST | | + + + + + | Height | 167.6 cm (5' 6") | 07/26/2017 12:52 PM | | | | | PST | | + + + + + | Body Mass Index | 20.98 | 07/26/2017 12:52 PM | | | | | PST | | + + + + + documented in this encounter Discharge Summaries Héctor Ernandez MD - 07/30/2017 11:02 AM PSTFormatting of this note might be different fro m the original. [facility] [place] HOSPITALIST DISCHARGE SUMMARY Pt. Name/Age/: Aurea Rushing 37 y.o. 1980 Date of Admission: 07/26/2017 Date of Discharge: 07/30/2017 Admitting Physician: Shahab Luther MD Primary Care Provider: Fauzia Santos MD Discharging Physician: Héctor Ernandez MD DISCHARGE DIAGNOSES: Active Hospital Problems Diagnosis Acute respiratory failure with hypoxia AUNG (acute kidney injury) Resolved Hospital Problems Diagnosis No resolved problems to display. DISCHARGE MEDICATIONS: Discharge Medications New Medications Details furosemide 40 mg tablet Take 1 tablet by mouth Daily. aka: LASIX pantoprazole 40 mg tablet Take 1 tablet by mouth every morning (before breakfast). aka: PROTONIX Start: 07/31/2017 potassium chloride 10 MEQ ER tablet Take 1 tablet by mouth Every other day. aka: KLOR-CON Start: 07/31/2017 Changed Medications Details oxyCODONE 5 mg tablet Take 1 tablet by mouth every 6 hours as needed for Pain. What changed: how much to take aka: ROXICODONE Unchanged Medications Details carvedilol 25 mg tablet Take 1 tablet by mouth 2 times daily (with breakfast & dinner). aka: COREG NIFEdipine 60 MG 24 hr tablet Take 1 tablet by mouth Daily. aka: ADALAT CC Alternative Med Lists (all with hard stops if not reconciled) 1 Dot DCMEDSSUMMARY (for discharge summary) 2 Dot DCMEDSDCRA (signed & held med orders with a discharge readmit phase of care) 3 Dot DCMEDSSNF (intended for SNF transfers) 4 Dot DCMEDSWITHREADMIT (preferred for all discharge summaries as it includes 1 & 2 above u sing 1 for most discharges but 2 when there is and order for discharge readmit) HOSPITAL COURSE: Please refer to the H&P for full details and the most recent rounding rounding (progress) n ote. Active Hospital Problems Diagnosis Acute respiratory failure with hypoxia (initally was intubated back in June) This is do to combo of Diastolic dysfunction (acute on chronic) and her CKD is better did have elevated D Dimer at [facility] but not candidate for CT with cont rast better, on Room air RA and breathing fine OK for home Echo this admit EF 58 percent and grade one LVDD and less severe MR vs June Troponins flat and not suggest ACS told her Echo Achilles tendonitis I spoke with Dr Sanchez we cannot use NSAIDS with her HTN and CKD thus will have her do PT here and learn stretching and if she still has problems can see ortho outpatient in a weeks clinically gone but discussed if flares up not responsive to conservative therapy for few weeks to see ortho Chronic HTN (at least 4 years) She says was on ACEI and HCTZ with good BP control prior to Says had Pre-eclampsia also 4 years ago son delivered at 20 weeks and still survives not steady state on meds today and much anxiety she is safe for home with current BP Anemia Recent Hemoptysis (she said no hemoptysis to [place] on ) and Vag bleeding However the vaginal bleeding was anticpated to last up to the per [facility] seen by Dr Montilla here (spelling) patient says not unexpected to bleed this degree , Dr Barreto ordered iron 23 better AUNG (acute kidney injury) She had prior TTP/HUS (was [facility] then 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 Platelets good presently, prior renal Bx at [facility] and that Platelets still good, anemia improved, WBC normal, BNP is near identical to Jul 06 however with the IVC having normal collapse on Echo this admit this level of BNP more reflec ts her CKD which is stable. I spoke with Dr Barreto whom favors home Lasix of 40 mg and Ald actone. Note that her Creatinine [facility] Jul 22 was 3.16 Na 139 K 3.2. 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 Interstitial fi brosis and tubular atrophy. Sent ADAMTS 13 Activity: 130 (range 68-163%) 07/10/17: Plasmapheresis and Eculizamab started. 07/12/17: ACLA IgG negative. ACLA IgA negative. ACLA IgM negative. Complement C3 112 mg/dL. C omplement C4 21 mg/dL. Total complement CH50 > 60 Copper 250. Zinc 75 Termination of 07/17 [facility] has been involved in her care MFM spoke with patient about contraception, pt signed tubal papers, needs to wait at least 30 days Pt should get depoprovera prior to d/c home-ordered by [facility] Pt should f/u with OB in [place] for tubal and follow-up Will let pt know that she may have increased vaginal bleeding 10-14 days post-termination ( 07/27-07/31) lasting approx 2 days, if increased significantly she should be seen by OB in [facility]. Per patient, family is now aware of her (prior notes stated that they were not aw are) Note [facility] sent her home on the Jul on Tylenol, Oxycodone 5 mg 1-2 q 6 prn, Lasix 20 mg daily , Coreg 25 mg bid, Procardia XL 60 mg daily patient was was told not to fill the Lasix but looking at discharge summary I believe that was a misunderstanding as they gave her enough for a week Resolved Hospital Problems Diagnosis No resolved problems to display. (dot meyaddendum tdnorefesh nownorefresh) (dot meyvent) (dot malnutattest is attestation for malnutrition) Plan Home Labs Q Mon [facility] (Dr Christy Sabillon to fax the Rx from Dr Barreto) Dr Barreto in 2 weeks Most recent weight: Input and output for last 24hrs: Wt Readings from Last 1 Encounters: 07/30/17 59 kg (130 lb) I/O last 24 Hours: In: 1345 [P.O.:1160; IV Piggyback:185] Out: 2200 [Urine:2200] Vitals Ranges: Temp: [36.1 C (96.9 F)-37.2 C (99 F)] 37.2 C (99 F) Pulse: [78-92] 85 Resp: [16] 16 BP: (147-198)/(80-111) 158/100 Vitals: Temp: 37.2 C (99 F) BP: (!) 158/100 Pulse: 85 Resp: 16 SpO2: 1 00 % SpO2 100 % on room air at flow rate 1 (up from RA)L/min PHYSICAL EXAM: Patient seen and examined by me on discharge day PROCEDURES AND CONSULTS: PENDING RESULTS: DISPOSITION AND DISCHARGE INSTRUCTIONS: Follow-up Information Jhoana Barreto DO. Specialty: Nephrology Why: His office should call you for appt goal is to be seen in 2 weeks from discharge Contact information: [address] [place] [id number] Condition: Patient being discharged with condition improved Active Hospital Problems Diagnosis Acute respiratory failure with hypoxia (initally was intubated back in June) This is do to combo of Diastolic dysfunction (acute on chronic) and her CKD is better did have elevated D Dimer at [facility] but not candidate for CT with cont rast better, on Room air RA and breathing fine 23 OK for home Echo this admit EF 58 percent and grade one LVDD and less severe MR vs June Troponins flat and not suggest ACS told her Echo Achilles tendonitis I spoke with Dr Sanchez we cannot use NSAIDS with her HTN and CKD thus will have her do PT here and learn stretching and if she still has problems can see ortho outpatient in a fe w weeks clinically gone but discussed if flares up not responsive to conservative therapy for few weeks to see ortho Chronic HTN (at least 4 years) She says was on ACEI and HCTZ with good BP control prior to Says had Pre-eclampsia also 4 years ago son delivered at 20 weeks and still survives not steady state on meds today and much anxiety she is safe for home with current BP Anemia Recent Hemoptysis (she said no hemoptysis to [place] on ) and Vag bleeding However the vaginal bleeding was anticpated to last up to the per [facility] seen by Dr Montilla here (spelling) patient says not unexpected to bleed this degree , Dr Barreto ordered iron 23 better AUNG (acute kidney injury) She had prior TTP/HUS (was [facility] then [facility] then [facility] was discharged from [facility] just 4 days 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 Platelets good presently, prior renal Bx at [facility] and that Platelets still good, anemia improved, WBC normal, BNP is near identical to Jul 06 however with the IVC having normal collapse on Echo this admit this level of BNP more reflec ts her CKD which is stable. I spoke with Dr Barreto whom favors home Lasix of 40 mg and Ald actone. Note that her Creatinine [facility] Jul 22 was 3.16 Na 139 K 3.2. 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 Interstitial fi brosis and tubular atrophy. Sent ADAMTS 13 Activity: 130 (range 68-163%) 07/10/17: Plasmapheresis and Eculizamab started. 07/12/17: ACLA IgG negative. ACLA IgA negative. ACLA IgM negative. Complement C3 112 mg/dL. C omplement C4 21 mg/dL. Total complement CH50 > 60 Copper 250. Zinc 75 Termination of 07/17 [facility] has been involved in her care MFM spoke with patient about contraception, pt signed tubal papers, needs to wait at least 30 days Pt should get depoprovera prior to d/c home-ordered by [facility] Pt should f/u with OB in [place] for tubal and follow-up Will let pt know that she may have increased vaginal bleeding 10-14 days post-termination ( 07/27-07/31) lasting approx 2 days, if increased significantly she should be seen by OB in [facility]. Per patient, family is now aware of her (prior notes stated that they were not aw are) Note [facility] sent her home on the Jul on Tylenol, Oxycodone 5 mg 1-2 q 6 prn, Lasix 20 mg daily , Coreg 25 mg bid, Procardia XL 60 mg daily patient was was told not to fill the Lasix but looking at discharge summary I believe that was a misunderstanding as they gave her enough for a week Resolved Hospital Problems Diagnosis No resolved problems to display. (joe davilayaddendum tdnorefesh nownorefresh) (joe davilayvliane) (joe mcdonald is attestation for malnutrition) Plan Home Labs Q Mon [facility] (Dr Christy Sabillon to fax the Rx from Dr Barreto) Dr Barreto in 2 weeks Greater than 30 minutes were spent on discharge and coordination of post-hospital care. Healthy eating no alcohol nor tobacco nor street drugs nor [facility] once a week at [facility] on Wednesday Dr Barreto to see you in about 2 weeks Weigh every day keep log If you have weight going up or down more than 7 pounds from your first weight at home (use today at home) then contact Dr Barreto office or if you note your leg swelling getting wors e or if your are getting short of breath (dot meyshort) Electronically signed by: Héctor Ernandez MD, 07/30/2017 11:02 [facility] Reference. This is NOT part of the patient's formal assessment section. In the assessment or plan section of notes the author may date some of the subsections with a number such as "" or "" to indicate the date of that entry or event. In the example below the 1st line is the original entry and the subsequent lines indicate flowing updates to the subsection: Example assessment subsection (such as CHF or CP or Pneumonia) Patient is improved today with resolution of symptoms 24th Worse with recurrence of symptoms requiring further testing Portions of this chart may have been created with [employer] voice recognition software. Occasi onal wrong-word or sound-alike substitutions may have occurred due to the inherent guerrero itations of voice recognition software. Please read the chart carefully and recognize, using context, where these substitutions have occurred documented in this en counter Discharge Instructions Instructions Héctor Ernandez MD - 07/30/2017Healthy eating no alcohol nor tobacco nor stre et drugs nor [facility] once a week at [facility] on Wednesday Dr Barreto to see you in about 2 weeks Weigh every day keep log If you have weight going up or down more than 7 pounds from your first weight at home (use today at home) then contact Dr Barreto office or if you note your leg swelling getting wors e or if your are getting short of breath documented in this encounter Medications at Time of Discharge + + + +---------+ + + | Medication | Sig | Dispensed | Refills | Start | End Date | | | | | | Date | | + + + +---------+ + + | acetaminophen | Take 325-650 mg by | | 0 | /20 | | | (TYLENOL) 325 mg | mouth every 6 (six) | | | 18 | | | tablet | hours as needed. | | | | | + + + +---------+ + + | carvedilol (COREG) | 6.25 mg. Take one | | 0 | / | | | 25 mg tablet | tab twice daily | | | 18 | | + + + +---------+ + + | | Swish and spit 10 | | 0 | //20 | | | Diphenhyd-Hydrocort- | mLs every [...] Take 1 tablet by | 60 | 0 | 07/30/19 | | | 25 mg tablet | mouth 2 times daily | tablet | | 18 | 8 | | | (with breakfast & | | | | | | | dinner). | | | | | + + + +---------+ + + | furosemide (LASIX) | Take 1 tablet by | 30 | 0 | 07/30/19 | | | 40 mg tablet | mouth Daily. | tablet | | 18 | 8 | + + + +---------+ + + | NIFEdipine (ADALAT | Take 1 tablet by | 30 | 0 | 07/30/19 | | | CC) 60 MG 24 hr | mouth Daily. | tablet | | 18 | 8 | | tablet | | | | [...] chloride | Take 1 tablet by | 15 | 0 | 07/31/19 | | | (KLOR-CON) 10 MEQ | mouth Every other | tablet | | 18 | 8 | | ER tablet | day. | | | | | + + + +---------+ + + documented as of this encounter Progress Notes Nancy Agosto RN - 07/30/2017 4:11 PM PSTAVS and prescriptions reviewed with and give n to patient. Personal belongings sent home with patient. Patient discharged home with grand father. All questions answered. Electronically signed by: Nancy Agosto RN 07/30/2017 16: 12 Héctor Kerns MD - 07/30/2017 10:52 AM PST [place], [place] HOSPITALIST PROGRESS NOTE Patient: Aurea Rushing : 1980: Age: 37 y.o. MedRec: [id number] PCP: Fauzia Santos MD Admission date: 07/26/2017 Hospital day # : 4 Physician author: Héctor Ernandez MD Today: 07/30/2017 Allergies: Allergies Allergen Reactions Codeine Anaphylaxis Sumatriptan Anaphylaxis Current Medications: Current Facility-Administered Medications Medication Dose Route Frequency Provider Last Rate Last Dose acetaminophen (TYLENOL) tablet 325 mg 325 mg Oral Q6H PRN Shahab Luther MD albuterol-ipratropium (DUONEB) 2.5-0.5 mg/3 mL nebulizer solution 3 mL 3 mL Nebulizati on RT Q4H PRN Héctor Ernandez MD carvedilol (COREG) tablet 25 mg 25 mg Oral BID Jhoana Barreto DO 25 mg at 0838 dicyclomine (BENTYL) capsule 20 mg 20 mg Oral TID PRN Shahab Luther MD 20 mg at 07/27 2205 furosemide (LASIX) tablet 40 mg 40 mg Oral BID (8 and 16) Jhoana M Stroemel, DO 40 mg at 07/30/17 0839 LORazepam (ATIVAN) injection 0.5 mg 0.5 mg Intravenous Nightly PRN, MR x 1 Shahab Luther MD 0.5 mg at 07/27/17 0012 LORazepam (ATIVAN) tablet 0.25 mg 0.25 mg Oral Q6H PRN Héctor Ernandez MD 0.25 mg at 07/29/17 0839 NIFEdipine (PROCARDIA XL) ER tablet 60 mg 60 mg Oral Daily Héctor Ernandez MD 60 mg at 07/30/17 0838 ondansetron (ZOFRAN) injection 4 mg 4 mg Intravenous Q6H PRN Dayne Tee MD 4 mg at 07/30/17 0659 oxyCODONE (ROXICODONE) tablet 5-10 mg 5-10 mg Oral Q4H PRN Shahab Luther MD 10 mg at 07/30/17 0839 pantoprazole (PROTONIX) DR tablet 40 mg 40 mg Oral QAM AC Héctor Ernandez MD 40 mg a t 07/30/17 0651 pharmacy consult - other medications/reasons Other Pharmacy Consult Kristie Toledo [START ON 07/31/2017] potassium chloride (KLOR-CON) ER tablet 10 mEq 10 mEq Oral Every Other Day Héctor Ernandez MD Current Infusions: Objective Data Hematology and anemia Recent Labs Lab 07/30/17 0530 07/29/17 0525 07/28/17 0429 WBC 8.7 7.4 7.0 HGB 8.9* 8.1* 8.9* HCT 26.4* 23.2* 26.9* PLT 215 205 235 NEUPCT 67.4 71.9 68.8 MONPCT 7.6 6.5 7.3 Recent Labs Lab 07/27/17 0437 07/26/17 1340 PROTIME 13.2 12.7 INR 1.01 0.96 No results for input(s): IRON, TIBC, PCTSAT, FERRITIN, TSH, [id number], FOLATE in the last 168 hours. Inflammatory markers Recent Labs Lab 07/26/17 1340 PROCALCITONI 0.45 Chemistry Recent Labs Lab 07/30/17 0530 07/29/17 0525 07/28/17 0429 07/27/17 0437 07/26/17 1340 GLU 89 102 89 93 101 NA 133* 136 138 138 136 K 3.8 3.5 3.7 3.4* 3.0* CL 98 99 100 102 101 CO2 24 26 26 26 25 ANIONGAP 11 11 12 10 10 BUN 53* 49* 42* 47* 52* CREA 3.12* 2.92* 2.74* 2.82* 2.83* GFRNONAA 17* 18* 19* 19* 19* CALCIUM 8.7 8.4 8.4 7.8* 8.0* ALBUMIN 3.2 3.1* 3.1* 2.6* 3.1* TOTALPROTEIN -- -- -- 4.9* 6.0 BILITOT -- -- -- 0.5 0.8 ALKPHOS -- -- -- 58 71 ALT -- -- -- 48* 66* AST -- -- -- 26 39 Recent Labs Lab 07/30/17 0530 07/29/17 0525 07/28/17 0429 MG 1.9 1.9 1.9 PHOS 5.0* 4.7* 3.8 No results for input(s): AMYLASE, LIPASE in the last 168 hours. No results for input(s): TRIG, CHOL, HDL, LDL in the last 168 hours. No results for input(s): AMMONIA in the last 168 hours. Cardiology & Digoxin Recent Labs Lab 07/28/17 0429 07/26/17 1923 07/26/17 1340 TROPONIN -- 0.08* 0.07* BNP 1,390* -- -- ABG No results for input(s): PHART, PO2ART, [id number], [id number], BEART, [id number] in the last 168 h ours. No results for input(s): SPECSOURCE, PHPOCB, PCO2, PO2, HCO3, TCO2, BEART, [id number] in the last 168 hours. Drug of overdose and abuse No results for input(s): ALCOHOL, ACTMN, SALICYLATE in the last 168 hours. Recent Labs Lab 07/26/17 1405 AMPHEQUAL Negative BARBITURATE Negative BENZSCR Negative CANNIBSCR Negative AMPHETAMINE Negative METHADSCR Negative OPIATESCR Negative Urinalysis Recent Labs Lab 07/26/17 1405 GLUCOSEU Negative WBCUA 0-2 RBCUA 10-15* SQUAMEPIUA 0-2 BACTERIAUA Negative Point of care glucose No results for input(s): POCGLU in the last 168 hours. Micro results more choices using dot micro, for reference below is dot [id number] URSR Microbiology Results (72 hrs) No results found for the last 72 hours. Radiology results (more choices using dot risresults) No results found. Serial weights: Filed Weights: 07/26/17 1259 07/30/17 0540 Weight: 57.5 kg (126 lb 12.2 oz) 59 kg (130 lb) Most recent weight: Input and output 2 shifts and 3 shifts: Wt Readings from Last 1 Encounters: 07/30/17 59 kg (130 lb) I/O last 24 Hours: In: 1345 [P.O.:1160; IV Piggyback:185] Out: 2200 [Urine:2200] I/O last 3 completed shifts: In: 1345 [P.O.:1160; IV Piggyback:185] Out: 3850 [Urine:3850] Vitals Ranges: Temp: [36.1 C (96.9 F)-37.2 C (99 F)] 37.2 C (99 F) Pulse: [78-92] 85 Resp: [16] 16 BP: (147-198)/(80-111) 158/100 Vitals: Temp: 37.2 C (99 F) BP: (!) 158/100 Pulse: 85 Resp: 16 SpO2: 1 00 % SpO2 100 % on room air at flow rate 1 (up from RA)L/min (dot meyvent) Subjective CC admitted hypoxia She feels good Achilles tendon pain gone Good mood Dr Christy Sabillon and I spoke I decided given Is and Os and labs to use the Lasix just once a day and KCL every other day Discussed only 15 tabs of oxy (she was out of her [place] bottle) and she was not 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 See above Exam General Alert calm Cardiac RRR 1/6 sys murmur Extremities NOT tender over the achilles tendon areas today Lung clear and not labored Abdominal Neuro alert fluent (dot meyexam) Assessment and Hospital Course (dot meyprob vs meyprobap) Active Hospital Problems Diagnosis Acute respiratory failure with hypoxia (initally was intubated back in June) This is do to combo of Diastolic dysfunction (acute on chronic) and her CKD is better did have elevated D Dimer at [facility] but not candidate for CT with cont rast better, on Room air RA and breathing fine OK for home Echo this admit EF 58 percent and grade one LVDD and less severe MR vs June Troponins flat and not suggest ACS told her Echo Achilles tendonitis I spoke with Dr Sanchez we cannot use NSAIDS with her HTN and CKD thus will have her do PT here and learn stretching and if she still has problems can see ortho outpatient in a weeks clinically gone but discussed if flares up not responsive to conservative therapy for few weeks to see ortho Chronic HTN (at least 4 years) She says was on ACEI and HCTZ with good BP control prior to Says had Pre-eclampsia also 4 years ago son delivered at 20 weeks and still survives not steady state on meds today and much anxiety she is safe for home with current BP Anemia Recent Hemoptysis (she said no hemoptysis to [place] on ) and Vag bleeding However the vaginal bleeding was anticpated to last up to the per [facility] seen by Dr Montilla here (spelling) patient says not unexpected to bleed this degree , Dr Barreto ordered iron 23 better AUNG (acute kidney injury) She had prior TTP/HUS (was [facility] then 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 Platelets good presently, prior renal Bx at [facility] and Platelets still good, anemia improved, WBC normal, BNP is near identical to Jul 06 however with the IVC having normal collapse on Echo this admit this level of BNP more reflec ts her CKD which is stable. I spoke with Dr Barreto whom favors home Lasix of 40 mg and Ald actone. Note that her Creatinine [facility] Jul 22 was 3.16 Na 139 K 3.2. 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 Interstitial fi brosis and tubular atrophy. Sent ADAMTS 13 Activity: 130 (range 68-163%) 07/10/17: Plasmapheresis and Eculizamab started. 07/12/17: ACLA IgG negative. ACLA IgA negative. ACLA IgM negative. Complement C3 112 mg/dL. C omplement C4 21 mg/dL. Total complement CH50 > 60 Copper 250. Zinc 75 Termination of 07/17 MFM has been involved in her care MFM spoke with patient about contraception, pt signed tubal papers, needs to wait at least 30 days Pt should get depoprovera prior to d/c home-ordered by [facility] Pt should f/u with OB in [place] for tubal and follow-up Will let pt know that she may have increased vaginal bleeding 10-14 days post-termination ( 07/27-07/31) lasting approx 2 days, if increased significantly she should be seen by OB in [facility]. Per patient, family is now aware of her (prior notes stated that they were not aw are) Note [facility] sent her home on the Jul on Tylenol, Oxycodone 5 mg 1-2 q 6 prn, Lasix 20 mg daily , Coreg 25 mg bid, Procardia XL 60 mg daily patient was was told not to fill the Lasix but looking at discharge summary I believe that was a misunderstanding as they gave her enough for a week Resolved Hospital Problems Diagnosis No resolved problems to display. (dot meyaddendum tdnorefesh nownorefresh) (dot meyvent) (dot malnutattest is attestation for malnutrition) Plan Home Labs Q Mon [facility] (Dr Christy Sabillon to fax the Rx from Dr Barreto) Dr Barreto in 2 weeks (dot meyaddendum tdnorefesh nownorefresh) (dot meytime meycritical meysign) Héctor Ernandez MD 07/30/2017 10:52 [facility] Reference. This is NOT part of the patient's formal assessment section. In the assessment or plan section of notes the author may date some of the subsections with a number such as "23" or "23" to indicate the date of that entry or event. In the example below the 1st line is the original entry and the subsequent lines indicate flowing updates to the subsection: Example assessment subsection (such as CHF or CP or Pneumonia) Patient is improved today with resolution of symptoms 24th Worse with recurrence of symptoms requiring further testing Portions of this chart may have been created with CoinKeeper voice recognition software. Occasi onal wrong-word or sound-alike substitutions may have occurred due to the inherent guerrero itations of voice recognition software. Please read the chart carefully and recognize, using context, where these substitutions have occurred Petra Eng MD - 07/30/2017 10:44 AM PSTNephrology Progress Note Briefly met with patient. Plan is to discharge home today. Pt is on nifedipine XL 60 mg daily, carvedilol 25 mg BID, and furosemide 40 mg BID. Pt is feeling much better. Pt reports her edema is resolved. BP readings have been variab le. Pt is not yet on steady state with her medications. 1. CKD stage 4, proteinuric. Likely due to hypertensive disease. Renal biopsy showed TMA with global sclerosis and significant interstitial fibrosis. TMA was likely due to severe hypertensive injury. There was a question of preeclampsia, bu t clinically,it was not consistent with preeclampsia given pt's gestational age at that time . There was a question of TTP, and pt was empirically treated for TTP with plasmapheresis a nd eculizumab (x 4 doses). However, her ADAMTS-13 was negative. There was no suspicious fo r atypical HUS / complement-related HUS. Given evidence of significant chronicity on renal biopsy, anticipate pt will have progressi ve kidney failure. -Weekly labs ordered to [facility] [place]. -Post-hospital f/u with Dr. Barreto will be scheduled for 2-weeks. 2. Hypertension Dr. Ernandez to adjust medications prior to discharge. Petra Sabillon MD Jhoana Ann DO - 07/29/2017 6:31 PM PST [facility] [address] [place] [place] [address] PROGRESS NOTE Pt. Name/Age/: uArea Rushing 37 y.o. 1980 Med. Record Number: [id number] Date of admission: 07/26/2017 NEPHROLOGY HPI - Pt seen at 1100. No complaints, except that she is "tired of Nursing staff here." No headache. Note the high BP's earlier, however, after AM meds BP => 156/80 mmHg, (my exam ). EXAM: BP (!) 180/102 | Pulse 88 | Temp 36.7 C (98 F) (Oral) | Resp 16 | Ht 1.676 m (5' 6") | Wt 57.5 kg (126 lb 12.2 oz) | LMP (LMP Unknown) | SpO2 100% | Breastfeedin g? No Comment: DNC earlier this month | BMI 20.46 kg/m Tmax 37.2 Intake/Output Summary (Last 24 hours) at 07/29/17 1831 Last data filed at 07/29/17 1458 Gross per 24 hour Intake 945 ml Output 2550 ml Net -1605 ml Heart: Regular rate and rhythm with grade 1-2/6 GAGE at LSB, no S3, rub. Lungs: CTA in all moseley. Abdomen: Soft, obese, nontender, normoactive bowel sounds. Extremities: no edema, clubbing, or cyanosis, SpO2: 100 % on room air LAB: Recent Labs 07/29/17 0525 NA 136 K 3.5 CL 99 CO2 26 BUN 49* CREA 2.92* GFRNONAA 18* GLU 102 CALCIUM 8.4 PHOS 4.7* MG 1.9 Recent Labs 07/29/17 0525 WBC 7.4 HGB 8.1* HCT 23.2* PLT 205 MCV 86.9 NEUPCT 71.9 LYMPCT 19.3* MONPCT 6.5 EOSPCT 1.6 IMPRESSION 1. Stage 4 CKD 2 to prolonged AUNG/ HUS on Bx-- Scr may nanci further. Currently, she olson d a major diuresis, in hopes of improving CHF and her accelerated HTN. 2. Acute CHF-- resolved. 3. Anemia 2 TMA and likely background CKD-- 4. HTN-- will need renal A-gram later with IT HELP DESK ANALYST if necessary. Would be best done at an IR lab, oupt. Will tentatively plan on sending her to Dr. Remi Garsia, Outpt later, for combined approach. 4. s/p therapeutic -- current post procedure bleeding not unusual, per JIGGER MACHINE OPERATOR. PLAN 1. Titrate meds as needed for BP. Could finish this outpt. 2. She will need weekly lab Outpt at [facility] in [place], [place]. 3. Will see her in 2 weeks at the [facility]. Will co ntact her with time. 4. May be worth considering Nifedipine XL , BID for now, if BP remains elevated overnite. 5. Will be Out of Office from 1900 today to 0700, 08/02/17. Located Within [facility] eyer, Héctor Regan MD - 07/29/2017 2:38 PM PST [facility] HOSPITALIST PROGRESS NOTE Patient: Aurea Rushing : 1980: Age: 37 y.o. MedRec: [id number] PCP: Fauzia Santos MD Admission date: 07/26/2017 Hospital day # : 3 Physician author: Héctor Ernandez MD Today: 07/29/2017 Allergies: Allergies Allergen Reactions Codeine Anaphylaxis Sumatriptan Anaphylaxis Current Medications: Current Facility-Administered Medications Medication Dose Route Frequency Provider Last Rate Last Dose acetaminophen (TYLENOL) tablet 325 mg 325 mg Oral Q6H PRN Shahab Luther MD albuterol-ipratropium (DUONEB) 2.5-0.5 mg/3 mL nebulizer solution 3 mL 3 mL Nebulizati on RT Q4H PRN Héctor Ernandez MD carvedilol (COREG) tablet 25 mg 25 mg Oral BID Jhoana Barreto DO 25 mg at 0827 dicyclomine (BENTYL) capsule 20 mg 20 mg Oral TID PRN Shahab Luther MD 20 mg at 07/27 220 epoetin ant (EPOGEN, PROCRIT) 10,000 units/mL injection 10,000 Units 10,000 Units Sub cutaneous Twice Weekly Jhoana Kristie Mary Lou, DO ferric gluconate (FERRLECIT) 250 mg in sodium chloride 0.9% 250 mL IVPB 250 mg Intrave nous Daily Jhoana Flowers Mary Lou DO 90 mL/hr at 07/29/17 1119 250 mg at 07/29/17 1119 furosemide (LASIX) tablet 40 mg 40 mg Oral BID (8 and 16) Jhoana Kristie Mary Lou, DO 40 mg at 07/29/17 0827 LORazepam (ATIVAN) injection 0.5 mg 0.5 mg Intravenous Nightly PRN, MR x 1 Shahab Luther MD 0.5 mg at 07/27/17 0012 LORazepam (ATIVAN) tablet 0.25 mg 0.25 mg Oral Q6H PRN Héctor Ernandez MD 0.25 mg at 07/29/17 0839 NIFEdipine (PROCARDIA XL) ER tablet 60 mg 60 mg Oral Daily Héctor Ernandez MD 60 mg at 07/29/17 0827 ondansetron (ZOFRAN) injection 4 mg 4 mg Intravenous Q6H PRN Dayne Tee MD 4 mg at 07/29/17 0816 oxyCODONE (ROXICODONE) tablet 5-10 mg 5-10 mg Oral Q4H PRN Shahab Luther MD 10 mg at 07/29/17 0839 pantoprazole (PROTONIX) DR tablet 40 mg 40 mg Oral QAM AC Héctor Ernandez MD 40 mg a t 07/29/17 0641 pharmacy consult - other medications/reasons Other Pharmacy Consult Kristie Toledo potassium chloride (KLOR-CON) ER tablet 10 mEq 10 mEq Oral Daily Héctor Ernandez MD Current Infusions: Objective Data Hematology and anemia Recent Labs Lab 07/29/17 0525 07/28/17 0429 07/27/17 0437 WBC 7.4 7.0 7.0 HGB 8.1* 8.9* 7.6* HCT 23.2* 26.9* 22.6* PLT 205 235 203 NEUPCT 71.9 68.8 68.6 MONPCT 6.5 7.3 8.4 Recent Labs Lab 07/27/17 0437 07/26/17 1340 PROTIME 13.2 12.7 INR 1.01 0.96 No results for input(s): IRON, TIBC, PCTSAT, FERRITIN, TSH, [id number], FOLATE in the last 168 hours. Inflammatory markers Recent Labs Lab 07/26/17 1340 PROCALCITONI 0.45 Chemistry Recent Labs Lab 07/29/17 0525 07/28/17 0429 07/27/17 0437 07/26/17 1340 GLU 102 89 93 101 NA 136 138 138 136 K 3.5 3.7 3.4* 3.0* CL 99 100 102 101 CO2 26 26 26 25 ANIONGAP 11 12 10 10 BUN 49* 42* 47* 52* CREA 2.92* 2.74* 2.82* 2.83* GFRNONAA 18* 19* 19* 19* CALCIUM 8.4 8.4 7.8* 8.0* ALBUMIN 3.1* 3.1* 2.6* 3.1* TOTALPROTEIN -- -- 4.9* 6.0 BILITOT -- -- 0.5 0.8 ALKPHOS -- -- 58 71 ALT -- -- 48* 66* AST -- -- 26 39 Recent Labs Lab 07/29/17 0525 07/28/17 0429 07/27/17 0437 MG 1.9 1.9 2.0 PHOS 4.7* 3.8 4.1 No results for input(s): AMYLASE, LIPASE in the last 168 hours. No results for input(s): TRIG, CHOL, HDL, LDL in the last 168 hours. No results for input(s): AMMONIA in the last 168 hours. Cardiology & Digoxin Recent Labs Lab 07/28/17 04207/26/17 1923 07/26/17 1340 TROPONIN -- 0.08* 0.07* BNP 1,390* -- -- ABG No results for input(s): PHART, PO2ART, DFZ0INM, EVC4QAW, BEART, Q2RFBJAD in the last 168 h ours. No results for input(s): SPECSOURCE, PHPOCB, PCO2, PO2, HCO3, TCO2, BEART, [id number] in the last 168 hours. Drug of overdose and abuse No results for input(s): ALCOHOL, ACTMN, SALICYLATE in the last 168 hours. Recent Labs Lab 07/26/17 1405 AMPHEQUAL Negative BARBITURATE Negative BENZSCR Negative CANNIBSCR Negative AMPHETAMINE Negative METHADSCR Negative OPIATESCR Negative Urinalysis Recent Labs Lab 07/26/17 1405 GLUCOSEU Negative WBCUA 0-2 RBCUA 10-15* SQUAMEPIUA 0-2 BACTERIAUA Negative Point of care glucose No results for input(s): POCGLU in the last 168 hours. Micro results more choices using dot micro, for reference below is dot [id number] URSR Microbiology Results (72 hrs) No results found for the last 72 hours. Radiology results (more choices using dot risresults) Xr Chest Ap Portable Result Date: 07/28/2017 XR CHEST AP PORTABLE 07/28/2017 9:24 AM HISTORY: Followup pulmonary edema. COMPARISON: Multi ple priors. Findings: The heart is borderline enlarged. Aorta is normal. Mediastinum is unre markable. Pulmonary vasculature is less prominent with cephalization. Small bilateral pleura l effusions are seen with mild compressive atelectasis. There are no acute osseous abnormali ties. IMPRESSION - Mild CHF with some improvement. Dictated and Signed by: Gaurav Reese MD Electronically signed: 07/28/2017 10:17 AM Serial weights: Filed Weights: 07/26/17 1259 Weight: 57.5 kg (126 lb 12.2 oz) Most recent weight: Input and output 2 shifts and 3 shifts: Wt Readings from Last 1 Encounters: 07/26/17 57.5 kg (126 lb 12.2 oz) I/O last 24 Hours: In: 100 [P.O.:100] Out: 5400 [Urine:5400] I/O last 3 completed shifts: In: 540 [P.O.:540] Out: 5400 [Urine:5400] Vitals Ranges: Temp: [35.5 C (95.9 F)-36.9 C (98.4 F)] 36.9 C (98.4 F) Pulse: [78-92] 78 Resp: [16-20] 16 BP: (162-203)/(85-106) 162/98 Vitals: Temp: 36.9 C (98.4 F) BP: (!) 162/98 Pulse: 78 Resp: 16 SpO2: 100 % SpO2 100 % on room air at flow rate 1 (up from RA)L/min (dot meyvent) Subjective CC admitted hypoxia She was upset about the frequency of BP checks (she wanted more) Says vomited yesterday after meds without enough food but fine today BP up this morning Awais upped her CCB to IT HELP DESK ANALYST dose Achilles tendon area sore X 2 days ROS See above Exam General Alert calm Cardiac RRR 1/6 sys murmur Extremities tender over the achilles tendon areas not hot nor red Lung clear and not labored Abdominal mild tender Neuro alert fluent (dot meyexam) Assessment and Hospital Course (dot meyprob vs meyprobap) Active Hospital Problems Diagnosis Acute respiratory failure with hypoxia (initally was intubated back in June) This is do to combo of Diastolic dysfunction (acute on chronic) and her CKD is better did have elevated D Dimer at [facility] but not candidate for CT with cont rast better, on Room air RA and breathing fine Echo this admit EF 58 percent and grade one LVDD and less severe MR vs June Troponins flat and not suggest ACS told her Echo Achilles tendonitis I spoke with Dr Sanchez we cannot use NSAIDS with her HTN and CKD thus will have her do PT here and learn stretching and if she still has problems can see ortho outpatient in a fe w weeks Chronic HTN (at least 4 years) She says was on ACEI and HCTZ with good BP control prior to Says had Pre-eclampsia also 4 years ago son delivered at 20 weeks and still survives Anemia Recent Hemoptysis (she said no hemoptysis to Awais on ) and Vag bleeding However the vaginal bleeding was anticpated to last up to the per [facility] seen by Dr Montilla here (spelling) patient says not unexpected to bleed this degree , Dr Barreto ordered iron AUNG (acute kidney injury) She had prior TTP/HUS (was [facility] then [facility] then [facility] was discharged from [facility] just 4 days 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 Platelets good presently, prior renal Bx at [facility] and Platelets still good, anemia improved, WBC normal, BNP is near identical to Jul 06 however with the IVC having normal collapse on Echo this admit this level of BNP more reflec ts her CKD which is stable. I spoke with Dr Barreto whom favors home Lasix of 40 mg and Ald actone. Note that her Creatinine [facility] Jul 22 was 3.16 Na 139 K 3.2. 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 Interstitial fi brosis and tubular atrophy. Sent ADAMTS 13 Activity: 130 (range 68-163%) 07/10/17: Plasmapheresis and Eculizamab started. 07/12/17: ACLA IgG negative. ACLA IgA negative. ACLA IgM negative. Complement C3 112 mg/dL. C omplement C4 21 mg/dL. Total complement CH50 > 60 Copper 250. Zinc 75 Termination of 07/17 M has been involved in her care MFM spoke with patient about contraception, pt signed tubal papers, needs to wait at least 30 days Pt should get depoprovera prior to d/c home-ordered by [facility] Pt should f/u with OB in [place] for tubal and follow-up Will let pt know that she may have increased vaginal bleeding 10-14 days post-termination ( 07/27-07/31) lasting approx 2 days, if increased significantly she should be seen by OB in [facility]. Per patient, family is now aware of her (prior notes stated that they were not aw are) Note [facility] sent her home on the Jul on Tylenol, Oxycodone 5 mg 1-2 q 6 prn, Lasix 20 mg daily , Coreg 25 mg bid, Procardia XL 60 mg daily patient was was told not to fill the Lasix but looking at discharge summary I believe that was a misunderstanding as they gave her enough for a week Resolved Hospital Problems Diagnosis No resolved problems to display. (dot meyaddendum tdnorefesh nownorefresh) (dot meyvent) (dot malnutattest is attestation for malnutrition) Plan Procardia increased today JIGGER MACHINE OPERATOR to see patient make sure this degree of vag bleeding OK Phys Therapy Dr Peck thinking oupatient TRISTON eval in future out outside center Aldactone stopped given she has diastolic CHF with CKD and with her GFR high K is a risk (dot meyaddendum tdnorefesh nownorefresh) (dot meytime meycritical meysign) Héctor Ernandez MD 07/29/2017 14:38 [facility] Reference. This is NOT part of the patient's formal assessment section. In the assessment or plan section of notes the author may date some of the subsections with a number such as "23" or "23" to indicate the date of that entry or event. In the example below the 1st line is the original entry and the subsequent lines indicate flowing updates to the subsection: Example assessment subsection (such as CHF or CP or Pneumonia) Patient is improved today with resolution of symptoms 24th Worse with recurrence of symptoms requiring further testing Portions of this chart may have been created with [employer]Keeper voice recognition software. Occasi onal wrong-word or sound-alike substitutions may have occurred due to the inherent guerrero itations of voice recognition software. Please read the chart carefully and recognize, using context, where these substitutions have occurred Jhoana Ann, DO - 07/28/2017 5:51 PM PST [facility] [address] [place] [address] PROGRESS NOTE Pt. Name/Age/: Aurea Rushing 37 y.o. 1980 Med. Record Number: [id number] Date of admission: 07/26/2017 NEPHROLOGY HPI - Pt seen at 0830. She was c/o moderate "spotting" yesterday, but less today. She ap pears more lucid and in NAD today. Excellent UO after lasix. EXAM: BP 163/85 | Pulse 85 | Temp 35.5 C (95.9 F) (Oral) | Resp 18 | Ht 1.676 m (5' 6") | Wt 57.5 kg (126 lb 12.2 oz) | LMP (LMP Unknown) | SpO2 100% | ? No Comment: DNC earlier this month | BMI 20.46 kg/m Tmax 37.2 Intake/Output Summary (Last 24 hours) at 07/28/17 1751 Last data filed at 07/28/17 1306 Gross per 24 hour Intake 780 ml Output 4350 ml Net -3570 ml Heart: Regular rate and rhythm with grade 1-2/6 GAGE at LSB, no S3, rub. Lungs: CTA in all moseley. Abdomen: Soft, obese, nontender, normoactive bowel sounds. Extremities: trace edema, clubbing, or cyanosis, SpO2: 100 % on room air LAB: Recent Labs 07/28/17 0429 NA 138 K 3.7 CL 100 CO2 26 BUN 42* CREA 2.74* GFRNONAA 19* GLU 89 CALCIUM 8.4 PHOS 3.8 MG 1.9 Recent Labs 07/28/17 0429 WBC 7.0 HGB 8.9* HCT 26.9* PLT 235 MCV 88.2 NEUPCT 68.8 LYMPCT 21.9 MONPCT 7.3 EOSPCT 1.5 Type of Study TTE procedure: ECHO Complete. Procedure date Date: 07/26/2017Start: 03:25 PM Technical Quality: Adequate visualization Study Location: ICU Indications: Pulmonary Edema 518.4/J81.0. Patient Status: Routine Height: 66 inchesWeight: 130 pounds BSA: 1.67 m^2BMI: 20.98 kg/m^2 Rhythm: Normal Sinus Rhythm HR: 89 bpm Conclusions Summary Conclusions Summary Left ventricle is normal in size and function. There is mild concentric LVH noted. Ejection fraction is estimated at 58%. There is grade 1 LV diastolic dysfunction. Aortic valve is a mildly sclerotic, potentially bicuspid valve. Peak velocity is increased at 2.6 m/s with mean/peak gradients of 14/27 mmHg. There is mild stenosis with mild insufficiency noted. Structurally normal tricuspid valve with moderate insufficiency and peak velocity consistent with RVSP 43-48 mmHg. Compared with patient's prior study of June 2017, there is suggestion of mild aortic stenosis. Mitral regurgitation severity appears reduced. IMPRESSION 1. Stage 4 CKD 2 to prolonged AUNG-- Scr is slowly improving. 2. Acute CHF-- likely 2 to salt retention from AUNG, and mild , TR on Echo. Much yessi r on exam. 3. Anemia 2 TMA and likely background CKD-- Dr. Freitas, Hematology, felt that with the IUP gone, which was source of immune trigger for HUS, TMA, would be reasonable to try STELLA Rx. Will start EPO. 4. s/p therapeutic -- offered her some DDAVP to promote hemostasis for her uremic PLT's but she declines. 5. HTN-- BP is trending back up. Her renal asymmetry, would raise the question of unilate ral TRISTON, given the paroxysmal CHF and BP changes? May need CTA or MRI at some point, but NOT with Gd. PLAN 1. Will increase the lasix to BID. 2. Start EPO , SQ, and some IV Fe given her recent vaginal bleeding. 3. Could X-matty to floor? 4. DC matias. Located Within [facility] eyer, Héctor Regan MD - 07/28/2017 9:04 AM PST [facility] HOSPITALIST PROGRESS NOTE Patient: Aurea Rushing : 1980: Age: 37 y.o. MedRec: [id number] PCP: Fauzia Santos MD Admission date: 07/26/2017 Hospital day # : 2 Physician author: Héctor Ernandez MD Today: 07/28/2017 Allergies: Allergies Allergen Reactions Codeine Anaphylaxis Sumatriptan Anaphylaxis Current Medications: Current Facility-Administered Medications Medication Dose Route Frequency Provider Last Rate Last Dose acetaminophen (TYLENOL) tablet 325 mg 325 mg Oral Q6H PRN Shahab Luther MD albuterol-ipratropium (DUONEB) 2.5-0.5 mg/3 mL nebulizer solution 3 mL 3 mL Nebulizati on RT Q8H Shahab Luther MD 3 mL at 07/27/17 2234 aluminum & magnesium hydroxide-simethicone (MAALOX PLUS REGULAR STRENGTH) 200-200-20 mg /5 mL suspension 30 mL 30 mL Oral Q4H PRN Jhoana Barreto DO aluminum & magnesium hydroxide-simethicone (MAALOX PLUS REGULAR STRENGTH) 200-200-20 mg /5 mL suspension 30 mL 30 mL Oral Q4H PRN Jhoana Barreto DO 30 mL at 07/27/17 1109 carvedilol (COREG) tablet 25 mg 25 mg Oral BID WC Jhoana Barreto DO 25 mg at 0831 dicyclomine (BENTYL) capsule 20 mg 20 mg Oral TID PRN Shahab Luther MD 20 mg at 07/27 2205 furosemide (LASIX) injection 40 mg 40 mg Intravenous Daily Jhoana Lintonl, DO 40 mg at 07/28/17 0831 LORazepam (ATIVAN) injection 0.5 mg 0.5 mg Intravenous Nightly PRN, MR x 1 Shahab Luther MD 0.5 mg at 07/27/17 0012 LORazepam (ATIVAN) tablet 0.25 mg 0.25 mg Oral Q6H PRN Héctor Ernandez MD 0.25 mg at 07/28/17 0858 NIFEdipine (PROCARDIA XL) ER tablet 30 mg 30 mg Oral Daily Jhoana Lintonl, DO 30 mg at 07/28/17 0831 ondansetron (ZOFRAN) injection 4 mg 4 mg Intravenous Q6H PRN Dayne Tee MD oxyCODONE (ROXICODONE) tablet 5-10 mg 5-10 mg Oral Q4H PRN Shahab Luther MD 5 mg at 0 07/28/17 0654 spironolactone (ALDACTONE) tablet 50 mg 50 mg Oral Daily Jhoana Lintonl, DO 50 m g at 07/28/17 0831 Current Infusions: Objective Data Hematology and anemia Recent Labs Lab 07/28/17 0429 07/27/17 0437 WBC 7.0 7.0 HGB 8.9* 7.6* HCT 26.9* 22.6* PLT 235 203 NEUPCT 68.8 68.6 MONPCT 7.3 8.4 Recent Labs Lab 07/27/17 0437 07/26/17 1340 PROTIME 13.2 12.7 INR 1.01 0.96 No results for input(s): IRON, TIBC, PCTSAT, FERRITIN, TSH, [id number], FOLATE in the last 168 hours. Inflammatory markers Recent Labs Lab 07/26/17 1340 PROCALCITONI 0.45 Chemistry Recent Labs Lab 07/28/17 0429 07/27/17 0437 07/26/17 1340 GLU 89 93 101 NA 138 138 136 K 3.7 3.4* 3.0* CL 100 102 101 CO2 26 26 25 ANIONGAP 12 10 10 BUN 42* 47* 52* CREA 2.74* 2.82* 2.83* GFRNONAA 19* 19* 19* CALCIUM 8.4 7.8* 8.0* ALBUMIN 3.1* 2.6* 3.1* TOTALPROTEIN -- 4.9* 6.0 BILITOT -- 0.5 0.8 ALKPHOS -- 58 71 ALT -- 48* 66* AST -- 26 39 Recent Labs Lab 07/28/17 04207/27/17 0437 07/26/17 1340 MG 1.9 2.0 2.2 PHOS 3.8 4.1 -- No results for input(s): AMYLASE, LIPASE in the last 168 hours. No results for input(s): TRIG, CHOL, HDL, LDL in the last 168 hours. No results for input(s): AMMONIA in the last 168 hours. Cardiology & Digoxin Recent Labs Lab 07/28/17 04207/26/17 1923 07/26/17 1340 TROPONIN -- 0.08* 0.07* BNP 1,390* -- -- ABG No results for input(s): PHART, PO2ART, [id number], [id number], BEART, [id number] in the last 168 h ours. No results for input(s): SPECSOURCE, PHPOCB, PCO2, PO2, HCO3, TCO2, BEART, [id number] in the last 168 hours. Drug of overdose and abuse No results for input(s): ALCOHOL, ACTMN, SALICYLATE in the last 168 hours. Recent Labs Lab 07/26/17 1405 AMPHEQUAL Negative BARBITURATE Negative BENZSCR Negative CANNIBSCR Negative AMPHETAMINE Negative METHADSCR Negative OPIATESCR Negative Urinalysis Recent Labs Lab 07/26/17 1405 GLUCOSEU Negative WBCUA 0-2 RBCUA 10-15* SQUAMEPIUA 0-2 BACTERIAUA Negative Point of care glucose No results for input(s): POCGLU in the last 168 hours. Micro results more choices using dot micro, for reference below is dot [id number] URSR Microbiology Results (72 hrs) Procedure Component Value Units Date/Time Culture, MRSA [[id number]] Collected: 07/26/17 1305 Order Status: Completed Lab Status: Final result Updated: 07/27/17 1054 Specimen: Respiratory from Nares Culture Negative for MRSA by chromogenic agar method Radiology results (more choices using dot risresults) Us Renal Limited Result Date: 07/27/2017 US RENAL LIMITED 07/27/2017 9:00 AM HISTORY: AUNG, evaluate for obstruction. COMPARISON: None . PROTOCOL: De Leon scale and Doppler images of the kidneys and bladder. FINDINGS: Right Kidney : There is slightly increased echogenicity along with elevated resistive indices of 0.76 and 0.72 consistent with medical renal disease. There is no hydronephrosis. A small amount of p erinephric fluid is seen along the superior pole. Size of the kidney is 9.8 x 5.2 x 4.0 cm. Left Kidney: There is slightly increased echogenicity along with elevated resistive indices of 0.77 and 0.74 consistent with medical renal disease. There is no hydronephrosis. Size of the kidney is 11.4 x 3.8 x 4.4 cm. Bladder: A catheter is in place with decompression of the bladder. Incidentally seen is a small left pleural effusion. IMPRESSION - Slightly increase d echogenicity of bilateral kidneys along with elevated resistive indices consistent with me dical renal disease. There is no hydronephrosis. Small left pleural effusion. Dictated and S igned by: Gaurav Reese MD Electronically signed: 07/27/2017 1:33 PM Xr Chest 2 Vw Result Date: 07/27/2017 XR CHEST 2 VW 07/27/2017 8:06 AM HISTORY: Evaluate for CHF. COMPARISON: Multiple priors. Fin dings: The heart is borderline enlarged. Aorta is normal. Mediastinum is unremarkable. Pulmo nary vasculature is prominent with cephalization. Small bilateral pleural effusions are seen with mild compressive atelectasis. There are no acute osseous abnormalities. IMPRESSION - M ild CHF. Dictated and Signed by: Gaurav Reese MD Electronically signed: 07/27/2017 8:58 AM Serial weights: Filed Weights: 07/26/17 1259 Weight: 57.5 kg (126 lb 12.2 oz) Most recent weight: Input and output 2 shifts and 3 shifts: Wt Readings from Last 1 Encounters: 07/26/17 57.5 kg (126 lb 12.2 oz) I/O last 24 Hours: In: 1320 [P.O.:1320] Out: 4200 [Urine:4200] I/O last 3 completed shifts: In: 2670 [P.O.:2670] Out: 4900 [Urine:4900] Vitals Ranges: Temp: [36.8 C (98.2 F)-37.3 C (99.1 F)] 37.1 C (98.8 F) Pulse: [78-82] 79 Resp: [12-17] 13 BP: (140-192)/(75-97) 181/97 Vitals: Temp: 37.1 C (98.8 F) BP: (!) 181/97 Pulse: 79 Resp: 13 SpO2: 100 % SpO2 100 % on room air at flow rate 1 (up from RA)L/min (dot meyvent) Subjective CC admitted hypoxia Doing much better Calm today I spoke with Dr Barreto ROS See above Exam General Alert calm Cardiac RRR 1/6 sys murmur Extremities Lung clear and not labored Abdominal Neuro alert fluent (dot meyexam) Assessment and Hospital Course (dot meyprob vs meyprobap) Active Hospital Problems Diagnosis Acute respiratory failure with hypoxia (initally was intubated back in June) This is do to combo of Diastolic dysfunction (acute on chronic) and her CKD is better did have elevated D Dimer at [facility] but not candidate for CT with cont rast better, on Room air Echo this admit EF 58 percent and grade one LVDD and less severe MR vs June Troponins flat and not suggest ACS Chronic HTN (at least 4 years) Anemia Recent Hemoptysis (she said no hemoptysis to [place] on ) and Vag bleeding However the vaginal bleeding was anticpated to last up to the per [facility] AUNG (acute kidney injury) She had prior TTP/HUS (was [facility] then [facility] then [facility] was discharged [facility] just 4 days 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 Platelets good presently, prior renal Bx at [facility] and that Platelets still good, anemia improved, WBC normal, BNP is near identical to Jul 06 however with the IVC having normal collapse on Echo this admit this level of BNP more reflec ts her CKD which is stable. I spoke with Dr Barreto whom favors home Lasix of 40 mg and Ald actone. Note that her Creatinine [facility] Jul 22 was 3.16 Na 139 K 3.2. 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 Interstitial fi brosis and tubular atrophy. Sent ADAMTS 13 Activity: 130 (range 68-163%) 07/10/17: Plasmapheresis and Eculizamab started. 07/12/17: ACLA IgG negative. ACLA IgA negative. ACLA IgM negative. Complement C3 112 mg/dL. C omplement C4 21 mg/dL. Total complement CH50 > 60 Copper 250. Zinc 75 Termination of 07/17 MFM has been involved in her care MFM spoke with patient about contraception, pt signed tubal papers, needs to wait at least 30 days Pt should get depoprovera prior to d/c home-ordered by [facility] Pt should f/u with OB in [place] for tubal and follow-up Will let pt know that she may have increased vaginal bleeding 10-14 days post-termination ( 07/27-07/31) lasting approx 2 days, if increased significantly she should be seen by OB in [facility]. Per patient, family is now aware of her (prior notes stated that they were not aw are) Note [facility] sent her home on the Jul on Tylenol, Oxycodone 5 mg 1-2 q 6 prn, Lasix 20 mg daily , Coreg 25 mg bid, Procardia XL 60 mg daily patient was was told not to fill the Lasix but looking at discharge summary I believe that was a misunderstanding as they gave her enough for a week Resolved Hospital Problems Diagnosis No resolved problems to display. 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 This is NOT part of the patient's formal assessment section. In the assessment or plan section of notes the author may date some of the subsections with a number such as "" or "" to indicate the date of that entry or event. In the example below the 1st line is the original entry and the subsequent lines indicate flowing updates to the subsection: Example assessment subsection (such as CHF or CP or Pneumonia) Patient is improved today with resolution of symptoms Worse with recurrence of symptoms requiring further testing Portions of this chart may have been created with CoinKeeper voice recognition software. Occasi onal wrong-word or sound-alike substitutions may have occurred due to the inherent guerrero itations of voice recognition software. Please read the chart carefully and recognize, using context, where these substitutions have occurred olph, Emanuel Keita [facility] - 07/27/2017 3:35 PM PST PHARMACY SERVICES: ADMISSION MEDICATION REVIEW Aurea Rushing is a 37 y.o. female admitted on 1980. Patient is a reliable historian. 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 Yes No Unsure Influenza x Pneumococcal x Tdap x Shingles x Noted medications discrepancies or medication-related issues: Medication added: Medication: Prior to Admission Sig: Carvedilol 25 mg Take one tablet every 12 hours Nifedipine SR 60 mg Take one tablet daily Oxycodone 5 mg Take one-two tablets every 6 hours as needed Removed therapy: Medication: Prior to Admission Sig: Reason for Removal: Labetalol 5 mg/mL Inject 4 mLs into the vein every 2 hours as needed for SBP>150 Therapy co mplete Pantoprazole 4 mg/mL Inject 10 mLs into the vein daily Therapy complete 27-0.8 mg Take one tablet daily Therapy complete Propofol infusion 10 mg/mL Inject [id number] mcg/min into the vein continuous Therapy complet e Other: Last name should be Chris not Kristan; Kristan is her maiden name Medication: Prior to Admission Sig: Patient taking differently IT HELP DESK ANALYST as: Lorazepam 1 mg Take 1-2 every 6 hours as needed for anxiety Patient states taking; Primary pharmacy never filled and [facility] shows no fills in the last year Best possible IT HELP DESK ANALYST medication list after pharmacy review: Prior to Admission medications Medication Sig carvedilol (COREG) 25 mg tablet Take 25 mg by mouth 2 times daily (with breakfast & dinner) . LORazepam (ATIVAN) 1 mg tablet Take 1-2 tablets by mouth every 6 hours as needed for Anxiet y. NIFEdipine (ADALAT CC) 60 MG 24 hr tablet Take 60 mg by mouth Daily. oxyCODONE (ROXICODONE) 5 mg tablet Take 5-10 mg by mouth every 6 hours as needed for Pain. Medication review performed and electronically signed by Iqra Jenkins, Neon Sign Worker 15:16 Electronically signed by: Emanuel Alcala [facility] 07/27/2017 15:35 eticia Alford RN - 07/27/2017 3:25 PM PSTPt has been c/o anxiety all day, but states it is worse than pre viously. Dr. Ernandez notified and orders rec'd. Jhoana Ann DO - 07/27/2017 11:05 AM PSTFormatting of t his note might be different from the original. [facility] [address] [place] [address] PROGRESS NOTE Pt. Name/Age/: Aurea Rushing 37 y.o. 1980 Med. Record Number: [id number] Date of admission: 07/26/2017 NEPHROLOGY HPI - Sitting up after US. Dyspnea is better. She states that she is spotting today, as i n vaginal bleeding. More info. has become available overnite. Apparently, she was felt to have with pre-eccplampsia at [facility], and not TTP/HUS. Hard copy of renal B x now available and confirms thrombotic microangiopathy, global glomerulosclerosis, and tu bulointerstitial fibrosis in 40% of the compartment . This is compatible with eccplampsia, pre-eccplampsia, as well as hypertensive emergency. Her BP has increased overnite off of th e Nifedipine XL. U.O. = 1230cc yest. Renal US here shows the right kidney = 9.82 cm, left 11.4 cm, no obstruction, some increase d echogenicity. EXAM: BP 157/86 | Pulse 78 | Temp 36.9 C (98.4 F) (Bladder) | Resp 14 | Ht 1.676 m (5' 6") | Wt 57.5 kg (126 lb 12.2 oz) | LMP (LMP Unknown) | SpO2 100% | Breastfeedin g? No Comment: DNC earlier this month | BMI 20.46 kg/m Tmax 37.2 Intake/Output Summary (Last 24 hours) at 07/27/17 1105 Last data filed at 07/27/17 0800 Gross per 24 hour Intake 2740 ml Output 2230 ml Net 510 ml Heart: Regular rate and rhythm with grade 1-2/6 GAGE at LSB, no S3, rub. Lungs: fine inspiratory rales lower 1/4 both lungs, no wheeze. Abdomen: Soft, obese, nontender, normoactive bowel sounds. Extremities: 1+ edema, clubbing, or cyanosis, SpO2: 100 % on room air CXR: some hyperinflation, bilateral IS edema is better vs. last mo. (Film from [facility] did no t roll into EPIC/PACS). LAB: Recent Labs 07/27/17 0437 NA 138 K 3.4* CL 102 CO2 26 BUN 47* CREA 2.82* GFRNONAA 19* GLU 93 CALCIUM 7.8* PHOS 4.1 MG 2.0 Recent Labs 07/27/17 0437 WBC 7.0 HGB 7.6* HCT 22.6* PLT 203 MCV 86.8 NEUPCT 68.6 LYMPCT 21.5 MONPCT 8.4 EOSPCT 0.9 IMPRESSION 1. Stage 4 CKD 2 to prolonged AUNG-- either from HUS, pre-eccplampsia, accelerated HTN pr eviously or both. Scr is slowly falling. Depending on where the Scr nadirs in next 90 days will be harkins. However, given Bx appearance and current Scr, not optimistic for complete recov james. Was honest with her about this. 2. Acute CHF-- pulm. edema is better. May need input form Cardiology whether she has devel oped post- CMP? 3. Anemia 2 TMA and likely background CKD-- will recheck her Fe levels also. Will discu ss with Hematology whether STELLA Rx could be used in this setting? 4. s/p therapeutic -- some spotting today. Dr. Ernandez agreed to have PROFESSOR OF PUBLIC ADMINISTRATION take a lo ok at pt. 5. HTN--BP is more robust this AM. Will resume her prior dose of carvedilol, and Nifedipin e XL, 30 mg, daily. Also, will resume a daily dose of lasix. PLAN 1. Resume lasix 40 mg, daily, Carvedilol , and some Nifedipine XL. 2. CHF appears to be clearing. 3. Will add spironolactone to slow renal wasting of K+ while on lasix. 4. Will confer with Hematology whether STELLA Rx could be useful as her PLT's, and Retic. cou nt appear to have normalized. Located Within [facility] Héctor Kerns MD - 07/27/2017 8:47 AM PST [facility]AS[facility] HOSPITALIST PROGRESS NOTE Patient: Aurea Rushing : 1980: Age: 37 y.o. MedRec: [id number] PCP: Fauzia Santos MD Admission date: 07/26/2017 Hospital day # : 1 Physician author: Héctor Ernandez MD Today: 07/27/2017 Allergies: Allergies Allergen Reactions Codeine Anaphylaxis Sumatriptan Anaphylaxis Current Medications: Current Facility-Administered Medications Medication Dose Route Frequency Provider Last Rate Last Dose acetaminophen (TYLENOL) tablet 325 mg 325 mg Oral Q6H PRN Shahab Luther MD albuterol-ipratropium (DUONEB) 2.5-0.5 mg/3 mL nebulizer solution 3 mL 3 mL Nebulizati on RT Q8H Shahab Luther MD 3 mL at 07/26/17 2148 carvedilol (COREG) tablet 3.125 mg 3.125 mg Oral BID WC Jhoana Kristie Stroemel, DO dicyclomine (BENTYL) capsule 20 mg 20 mg Oral TID PRN Shahab Luther MD 20 mg at 07/26 2357 LORazepam (ATIVAN) injection 0.5 mg 0.5 mg Intravenous Nightly PRN, MR x 1 Shahab Luther MD 0.5 mg at 07/27/17 0012 oxyCODONE (ROXICODONE) tablet 5-10 mg 5-10 mg Oral Q4H PRN Shahab Luther MD 5 mg at 0 07/27/17 0541 Current Infusions: Objective Data Hematology and anemia Recent Labs Lab 07/27/17 0437 WBC 7.0 HGB 7.6* HCT 22.6* PLT 203 NEUPCT 68.6 MONPCT 8.4 Recent Labs Lab 07/27/17 0437 07/26/17 1340 PROTIME 13.2 12.7 INR 1.01 0.96 No results for input(s): IRON, TIBC, PCTSAT, FERRITIN, TSH, [id number], FOLATE in the last 168 hours. Inflammatory markers Recent Labs Lab 07/26/17 1340 PROCALCITONI 0.45 Chemistry Recent Labs Lab 07/27/17 0437 07/26/17 1340 GLU 93 101 NA 138 136 K 3.4* 3.0* CL 102 101 CO2 26 25 ANIONGAP 10 10 BUN 47* 52* CREA 2.82* 2.83* GFRNONAA 19* 19* CALCIUM 7.8* 8.0* ALBUMIN 2.6* 3.1* TOTALPROTEIN 4.9* 6.0 BILITOT 0.5 0.8 ALKPHOS 58 71 ALT 48* 66* AST 26 39 Recent Labs Lab 07/27/17 0437 07/26/17 1340 MG 2.0 2.2 PHOS 4.1 -- No results for input(s): AMYLASE, LIPASE in the last 168 hours. No results for input(s): TRIG, CHOL, HDL, LDL in the last 168 hours. No results for input(s): AMMONIA in the last 168 hours. Cardiology & Digoxin Recent Labs Lab 07/26/17 1923 07/26/17 1340 TROPONIN 0.08* 0.07* ABG No results for input(s): PHART, PO2ART, MYI3JVG, HDO3FOY, BEART, P3SNBINS in the last 168 h ours. No results for input(s): SPECSOURCE, PHPOCB, PCO2, PO2, HCO3, TCO2, BEART, [id number] in the last 168 hours. Drug of overdose and abuse No results for input(s): ALCOHOL, ACTMN, SALICYLATE in the last 168 hours. Recent Labs Lab 07/26/17 1405 AMPHEQUAL Negative BARBITURATE Negative BENZSCR Negative CANNIBSCR Negative AMPHETAMINE Negative METHADSCR Negative OPIATESCR Negative Urinalysis Recent Labs Lab 07/26/17 1405 GLUCOSEU Negative WBCUA 0-2 RBCUA 10-15* SQUAMEPIUA 0-2 BACTERIAUA Negative Point of care glucose No results for input(s): POCGLU in the last 168 hours. Micro results more choices using dot micro, for reference below is dot [id number] URSR Microbiology Results (72 hrs) Procedure Component Value Units Date/Time Culture, MRSA [[id number]] Collected: 07/26/17 1305 Order Status: Sent Lab Status: In process Updated: 07/26/17 1322 Specimen: Respiratory from Nares Radiology results (more choices using dot risresults) No results found. Serial weights: Filed Weights: 07/26/17 1259 Weight: 57.5 kg (126 lb 12.2 oz) Most recent weight: Input and output 2 shifts and 3 shifts: Wt Readings from Last 1 Encounters: 07/26/17 57.5 kg (126 lb 12.2 oz) I/O last 24 Hours: In: 2500 [P.O.:2500] Out: 1230 [Urine:1230] I/O last 3 completed shifts: In: 2500 [P.O.:2500] Out: 1230 [Urine:1230] Vitals Ranges: Temp: [36.2 C (97.2 F)-37.9 C (100.2 F)] 36.9 C (98.4 F) Pulse: [65-99] 65 Resp: [11-24] 11 BP: (103-157)/(56-99) 157/86 Vitals: Temp: 36.9 C (98.4 F) BP: 157/86 Pulse: 65 Resp: 11 SpO2: 100 % SpO2 100 % on room air at flow rate 1 (up from RA)L/min (dot zander) Subjective CC admitted hypoxia She says breathing is much better today Says 4 days of mid abd "gas" pain but better after much flatulence Vaginal bleeding Loose stool last noc No N/V ROS See above Exam General Alert anxious Cardiac RRR 1/6 sys murmur Extremities Lung clear not labored Abdominal + BS mild distention soft mild tender mid Neuro alert fluent (dot lidia) Assessment and Hospital Course (dot meyprob vs meyprobap) Active Hospital Problems Diagnosis Acute respiratory failure with hypoxia (initally was intubated back in June) 20th is better did have elevated D Dimer at [facility] but not candidate for CT with cont rast Echo this admit EF 58 percent and grade one LVDD and less severe MR vs June Troponins flat and not suggest ACS Chronic HTN (at least 4 years) Anemia Recent Hemoptysis and Vag bleeding However the vaginal bleeding was anticpated to last up to the per [facility] AUNG (acute kidney injury) She had prior TTP/HUS (was [facility] then [facility] then [facility] was discharged from latter just 4 days 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 Interstitial fi brosis and tubular atrophy. Sent ADAMTS 13 Activity: 130 (range 68-163%) 07/10/17: Plasmapheresis and Eculizamab started. 07/12/17: ACLA IgG negative. ACLA IgA negative. ACLA IgM negative. Complement C3 112 mg/dL. C omplement C4 21 mg/dL. Total complement CH50 > 60 Copper 250. Zinc 75 Note [facility] sent her home on the Jul on Tylenol, Oxycodone 5 mg 1-2 q 6 prn, Lasix 20 mg daily , Coreg 25 mg bid, Procardia XL 60 mg daily Resolved Hospital Problems Diagnosis No resolved problems to display. (dot meyaddendum tdnorefesh nownorefresh) (dot meyvent) (dot amintaattperfecto is attestation for malnutrition) Plan Dr Barreto helping Will up titrate the Coreg and consider restart Lasix and maybe CCB (dot meyaddendum tdnorefesh nownorefresh) (dot meytime meycritical meysign) Héctor Ernandez MD 07/27/2017 8:47 [facility] Reference. This is NOT part of the patient's formal assessment section. In the assessment or plan section of notes the author may date some of the subsections with a number such as "" or "" to indicate the date of that entry or event. In the example below the 1st line is the original entry and the subsequent lines indicate flowing updates to the subsection: Example assessment subsection (such as CHF or CP or Pneumonia) Patient is improved today with resolution of symptoms 24th Worse with recurrence of symptoms requiring further testing Portions of this chart may have been created with CoinKeeper voice recognition software. Occasi onal wrong-word or sound-alike substitutions may have occurred due to the inherent guerrero itations of voice recognition software. Please read the chart carefully and recognize, using context, where these substitutions have occurred documented in this en counter Plan of Treatment + + +--------+ + + | Name | Type | Priori | Associated Diagnoses | Order Schedule | | | | ty | | | + + +--------+ + + | Referral to Home | Outpatient | Routin | AUNG (acute kidney | Ordered: 07/30/2017 | | Health - OUTPATIENT | Referral | e | injury) (HCC) | | + + +--------+ + + documented as of this encounter Procedures + +--------+ + + + | Procedure Name | Priori | Date/Time | Associated Diagnosis | Comments | | | ty | | | | + +--------+ + + + | CBC WITH | Routin | 07/30/2017 | | Results for this | | DIFFERENTIAL | e | 5:30 AM | | procedure are in the | | | | PST | | results section. | + +--------+ + + + | MAGNESIUM | Routin | 07/30/2017 | | Results for this | | | e | 5:30 AM | | procedure are in the | | | | PST | | results section. | + +--------+ + + + | RENAL FUNCTION PANEL | Routin | 07/30/2017 | | Results for this | | | e | 5:30 AM | | procedure are in the | | | | PST | | results section. | + +--------+ + + + | CBC WITH | Routin | 07/29/2017 | | Results for this | | DIFFERENTIAL | e | 5:25 AM | | procedure are in the | | | | PST | | results section. | + +--------+ + + + | MAGNESIUM | Routin | 07/29/2017 | | Results for this | | | e | 5:25 AM | | procedure are in the | | | | PST | | results section. | + +--------+ + + + | RENAL FUNCTION PANEL | Routin | 07/29/2017 | | Results for this | | | e | 5:25 AM | | procedure are in the | | | | PST | | results section. | + +--------+ + + + | XR CHEST AP PORTABLE | STAT | 07/28/2017 | | Results for this | | | | 9:37 AM | | procedure are in the | | | | PST | | results section. | + +--------+ + + + | CBC WITH | Routin | 07/28/2017 | | Results for this | | DIFFERENTIAL | e | 4:29 AM | | procedure are in the | | | | PST | | results section. | + +--------+ + + + | B TYPE NATRIURETIC | Routin | 07/28/2017 | | Results for this | | PEPTIDE | e | 4:29 AM | | procedure are in the | | | | PST | | results section. | + +--------+ + + + | MAGNESIUM | Routin | 07/28/2017 | | Results for this | | | e | 4:29 AM | | procedure are in the | | | | PST | | results section. | + +--------+ + + + | RENAL FUNCTION PANEL | Routin | 07/28/2017 | | Results for this | | | e | 4:29 AM | | procedure are in the | | | | PST | | results section. | + +--------+ + + + | US RENAL LIMITED | Routin | 07/27/2017 | | Results for this | | | e | 9:31 AM | | procedure are in the | | | | PST | | results section. | + +--------+ + + + | XR CHEST 2 VIEWS | Routin | 07/27/2017 | | Results for this | | | e | 8:26 AM | | procedure are in the | | | | PST | | results section. | + +--------+ + + + | ANCA PANEL NO REFLEX | Routin | 07/27/2017 | | Results for this | | TO AGUSTIN | e | 4:37 AM | | procedure are in the | | | | PST | | results section. | + +--------+ + + + | PROTIME INR | Routin | 07/27/2017 | | Results for this | | | e | 4:37 AM | | procedure are in the | | | | PST | | results section. | + +--------+ + + + | CBC WITH | Routin | 07/27/2017 | | Results for this | | DIFFERENTIAL | e | 4:37 AM | | procedure are in the | | | | PST | | results section. | + +--------+ + + + | COMPLEMENT C3 AG | Routin | 07/27/2017 | | Results for this | | | e | 4:37 AM | | procedure are in the | | | | PST | | results section. | + +--------+ + + + | COMPLEMENT C4 AG | Routin | 07/27/2017 | | Results for this | | | e | 4:37 AM | | procedure are in the | | | | PST | | results section. | + +--------+ + + + | PHOSPHORUS | Routin | 07/27/2017 | | Results for this | | | e | 4:37 AM | | procedure are in the | | | | PST | | results section. | + +--------+ + + + | MAGNESIUM | Routin | 07/27/2017 | | Results for this | | | e | 4:37 AM | | procedure are in the | | | | PST | | results section. | + +--------+ + + + | COMPREHENSIVE | Routin | 07/27/2017 | | Results for this | | METABOLIC PANEL | e | 4:37 AM | | procedure are in the | | | | PST | | results section. | + +--------+ + + + | TROPONIN I | STAT | 07/26/2017 | | Results for this | | | | 7:23 PM | | procedure are in the | | | | PST | | results section. | + +--------+ + + + | LACTATE | Routin | 07/26/2017 | | Results for this | | DEHYDROGENASE | e | 4:16 PM | | procedure are in the | | | | PST | | results section. | + +--------+ + + + | ECHO COMPLETE | Routin | 07/26/2017 | | Results for this | | | e | 3:56 PM | | procedure are in the | | | | PST | | results section. | + +--------+ + + + | RESPIRATORY THERAPY | Routin | 07/26/2017 | | | | COMMUNICATION | e | 3:02 PM | | | | | | PST | | | + +--------+ + + + | URINALYSIS, REFLEX | Routin | 07/26/2017 | | Results for this | | MICROSCOPIC AND/OR | e | 2:05 PM | | procedure are in the | | CULTURE | | PST | | results section. | + +--------+ + + + | PROTEIN/CREATININE | Routin | 07/26/2017 | | Results for this | | RATIO, URINE | e | 2:05 PM | | procedure are in the | | | | PST | | results section. | + +--------+ + + + | SODIUM, URINE, | Routin | 07/26/2017 | | Results for this | | RANDOM | e | 2:05 PM | | procedure are in the | | | | PST | | results section. | + +--------+ + + + | OSMOLALITY, URINE | Routin | 07/26/2017 | | Results for this | | | e | 2:05 PM | | procedure are in the | | | | PST | | results section. | + +--------+ + + + | CREATININE, URINE, | Routin | 07/26/2017 | | Results for this | | RANDOM | e | 2:05 PM | | procedure are in the | | | | PST | | results section. | + +--------+ + + + | DRUGS OF ABUSE, | Routin | 07/26/2017 | | Results for this | | SCREEN, URINE | e | 2:05 PM | | procedure are in the | | | | PST | | results section. | + +--------+ + + + | EXTRA AGUSTINAPABLITO TOP | Routin | 07/26/2017 | | Results for this | | TUBE | e | 1:43 PM | | procedure are in the | | | | PST | | results section. | + +--------+ + + + | RETIC COUNT | Add-On | 07/26/2017 | | Results for this | | | | 1:43 PM | | procedure are in the | | | | PST | | results section. | + +--------+ + + + | PROCALCITONIN, SERUM | Routin | 07/26/2017 | | Results for this | | | e | 1:40 PM | | procedure are in the | | | | PST | | results section. | + +--------+ + + + | TROPONIN I | STAT | 07/26/2017 | | Results for this | | | | 1:40 PM | | procedure are in the | | | | PST | | results section. | + +--------+ + + + | PROTIME INR | USHA | 07/26/2017 | | Results for this | | | | 1:40 PM | | procedure are in the | | | | PST | | results section. | + +--------+ + + + | MAGNESIUM | USHA | 07/26/2017 | | Results for this | | | | 1:40 PM | | procedure are in the | | | | PST | | results section. | + +--------+ + + + | HEPATIC FUNCTION | Add-On | 07/26/2017 | | Results for this | | PANEL | | 1:40 PM | | procedure are in the | | | | PST | | results section. | + +--------+ + + + | BASIC METABOLIC | USHA | 07/26/2017 | | Results for this | | PANEL | | 1:40 PM | | procedure are in the | | | | PST | | results section. | + +--------+ + + + | ECG 12 LEAD | STAT | 07/26/2017 | | Results for this | | | | 1:18 PM | | procedure are in the | | | | PST | | results section. | + +--------+ + + + | CULTURE, MRSA | Routin | 07/26/2017 | | Results for this | | | e | 1:05 PM | | procedure are in the | | | | PST | | results section. | + +--------+ + + + | LABS - EXTERNAL SCAN | | 07/26/2017 | | Results for this | | | | 12:00 AM | | procedure are in the | | | | PST | | results section. | + +--------+ + + + | PATHOLOGY - EXTERNAL | | 07/09/2017 | | Results for this | | SCAN | | 12:00 AM | | procedure are in the | | | | PST | | results section. | + +--------+ + + + documented in this encounter Results Renal Function Panel (07/30/2017 5:30 AM PST) + + + + + + | Component | Value | Ref Range | Performed | Pathologist | | | | | At | Signature | + + + + + + | Na | 133 (L) | 136 - 149 | [facility] | | | | | mmol/L | [facility] | | | | | [facility] - | | | | | | LAB[facility]ATORY | | + + + + + + | K | 3.8 | 3.5 - 5.1 | [facility] | [...] + + + + | Glucose | 89 | 70 - 109 mg/dL | [facility] | | | | | | [facility] | | | | | | [facility] | | | | | | [facility] - | | | | | | LABORATORY | | + + + + + + | BUN | 53 (H) | 7 - 18 mg/dL | [facility] | | | | | | [facility] | | | | | | [facility] | | | | | | [facility] - | | | | | | LAB[facility]ATORY | | + + + + + + | Creatinine | 3.12 (H) | 0.60 - 1.30 | [facility] | | | | | mg/dL | [facility] | | | | | | [facility] | | | | | | [facility] - | | | | | | LABORATORY | | + + + + + + | eGFR if not | 17 (L) | >=60 | [facility] | | | | | mL/min/1.73m2 | [facility] | | | [facility] | | [facility] | | | | | | [facility] - | | | | | | LABORATORY | | + + + + + + | Calcium | 8.7 | 8.3 - 10.5 | [facility] | | | | | mg/dL | [facility] | | | | | | [facility] | | | | | | [facility] - | | | | | | LABORATORY | | + + + + + + | Albumin | 3.2 | 3.2 - 5.0 g/dL | [facility] | | | | | | [facility] | | | | | | [facility] | | | | | | [facility] - | | | | | | LAB[facility]ATORY | | + + + + + + | Phosphorus | 5.0 (H) | 2.5 - 4.6 mg/dL | [facility] | | | | | | [facility] | | | | | | [facility] | | | | | | [facility] - | | | | | | LABORATORY | | + + + + + + | BUN/Creatin | 17.0 | | [facility] | | | ine [...] [address] | [place] | [phone] | | [facility] | | [address] | | | - LABORATORY | | | | + + + + + Magnesium (07/30/2017 5:30 AM PST) + +-------+ + + + | Component | Value | Ref Range | Performed | Pathologist | | | | | At | Signature | + +-------+ + + + | Magnesium | 1.9 | 1.8 - 2.5 mg/dL | [facility] | | | | | | [facility] [...] + | [facility] | [address] | [place] | [phone] | | [facility] | | [address] | | | - LABORATORY | | | | + + + + + CBC with Differential (07/30/2017 5:30 AM PST) + + + + + + | Component | Value | Ref Range | Performed | Pathologist | | | | | At | Signature | + + + + + + | WBC | 8.7 | 4.0 - 11.0 K/uL | [facility] | | | | | | [facility] | | | | | | [facility] | | | | | | [facility] - | | | | | | LABORATORY | | + + + + + + | RBC | 3.09 (L) | 3.70 - 5.20 | [facility] | | | | | M/uL | [facility] | | | | | | [facility] | | | | | | [facility] - | | | | | | LABORATORY | | + + + + + + | Hemoglobin | 8.9 (L) | 11.5 - 16.0 | [facility] | | | | | g/dL | [facility] | | | | | | [facility] | | | | | | C[facility] - | | | | | | LABORATORY | | + + + + + + | Hematocrit | 26.4 (L) | 34.0 - 47.0 % | [facility] | | | | | | [facility] | | | | | | [facility] | | | | | | [facility] - | | | | | | LABORATORY | | + + + + + + | MCV | 85.5 | 83.0 - 101.0 fL | [facility] | | | | | | [facility] | | | | | | [facility] | | | | | | [facility] - | | | | | | LABORATORY | | + + + + + + | MCH | 28.9 | 28.0 - 35.0 pg | [facility] | | | | | | [facility] | | | | | | [facility] | | | | | | [facility] - | | | | | | LABORATORY | | + + + + + + | MCHC | 33.8 | 32.0 - 36.0 | [facility] | | | | | g/dL | [facility] | | | | | | [facility] | | | | | | C[facility] - | | | | | | LABORATORY | | + + + + + + | RDW-CV | 17.3 (H) | <15.0 % | [facility] | | | | | | [facility] | | | [facility] | | [facility] | | | | | | [facility] - | | | | | | LABORATORY | | + + + + + + | Platelet | 215 | 140 - 440 K/uL | [facility] | | | Count | | | [facility] | | | | | | [facility] | | | | | | [facility] - | | | | | | LABORATORY | | + + + + + + | MPV | 7.1 | fL | [facility] | | | | | | [facility] | | | | | | [facility] | | | | | | [facility] - | | | | | | LABORATORY | | + + + + + + | % | 67.4 | 45.0 - 82.0 % | [facility] | | | Neutrophils | | | [facility] | | | | | | [facility] | | | | | | C[facility] - | | | | | | LABORATORY | | + + + + + + | % | 22.7 | 20.0 - 45.0 % | [facility] | | | Lymphocytes | | | [facility] | | | | | | [facility] | | | | | | CENTER - | | | | | | LABORATORY | | + + + + + + | % Monocytes | 7.6 | 4.0 - 12.0 % | [facility] | | | | | | [facility] | | | | | | [facility] | | | | | | [facility] - | | | | | | LABORATORY | | + + + + + + | % | 2.1 | 0.0 - 5.0 % | [facility] [...] + + + + | Absolute | 5.80 | 1.80 - 8.50 | [facility] | | | Neutrophils | | K/uL | [facility] | | | | | | [facility] | | | | | | [facility] - | | | | | | LABORATORY | | + + + + + + | Absolute | 2.00 | 0.60 - 3.20 | [facility] | [...] + | [facility] | [address] | [place] | [phone] | | [facility] | | [address] | | | - LABORATORY | | | | + + + + + Renal Function Panel (07/29/2017 5:25 AM PST) + + + + + + | Component | Value | Ref Range | Performed | Pathologist | | | | | At | Signature | + + + + + + | Na | 136 | 136 - 149 | [facility] | | | | | mmol/L | [facility] | | | | | | [facility] | | | | | | [facility]ENTER - | | | | | | LABORATORY | | + + + + + + | K | 3.5 | 3.5 - 5.1 | [facility] | [...] + + | CO2 | 26 | 24 - 31 mmol/L | [facility] [...] + + + + | Glucose | 102 | 70 - 109 mg/dL | [facility] [...] + + + + | Creatinine | 2.92 (H) | 0.60 - 1.30 | [facility] | | | | | mg/dL | [facility] | | | | | | [facility] | | | | | | C[facility] - | | | | | | LABORATORY | | + + + + + + | eGFR if not | 18 (L) | >=60 | [facility] | | | | | mL/min/1.73m2 | [facility] | | | [facility] | | | [facility] | | | | | | [facility] - | | | | | | LABORATORY | | + + + + + + | Calcium | 8.4 | 8.3 - 10.5 | [facility] | | | | | mg/dL | [facility] | | | | | | [facility] | | | | | | C[facility] - | | | | | | LABORATORY | | + + + + + + | Albumin | 3.1 (L) | 3.2 - 5.0 g/dL | [facility] | | | | | | [facility] | | | | | | [facility] | | | | | | [facility] - | | | | | | LABORATORY | | + + + + + + | Phosphorus | 4.7 (H) | 2.5 - 4.6 mg/dL | [facility] | | | | | | [facility] | | | | | | [facility] | | | | | | C[facility] - | | | | | | LABORATORY | | + + + + + + | BUN/Creatin | 16.8 | | [facility] | | | ine [...] | [address] | [place] | [phone] | | [facility] | | [address] | | | - LABORATORY | | | | + + + + + Magnesium (07/29/2017 5:25 AM PST) + +-------+ + + + | Component | Value | Ref Range | Performed | Pathologist | | | | | At | Signature | + +-------+ + + + | Magnesium | 1.9 | 1.8 - 2.5 mg/dL | [facility] | | | | | | [facility] | [address] | [place] | [phone] | | [facility] | | [address] | | | - LABORATORY | | | | + + + + + CBC with Differential (07/29/2017 5:25 AM PST) + + + + + + | Component | Value | Ref Range | Performed | Pathologist | | | | | At | Signature | + + + + + + | WBC | 7.4 | 4.0 - 11.0 K/uL | [facility] | | | | | | [facility] | | | | | | [facility] | | | | | | C[facility] - | | | | | | LABORATORY | | + + + + + + | RBC | 2.67 (L) | 3.70 - 5.20 | [facility] | | | | | M/uL | [facility] | | | | | | [facility] | | | | | | CENTER - | | | | | | LABORATORY | | + + + + + + | Hemoglobin | 8.1 (L) | 11.5 - 16.0 | [facility] | | | | | g/dL | [facility] | | | | | | MEDICAL | | | | | | CENTER - | | | | | | LABORATORY | | + + + + + + | Hematocrit | 23.2 (L) | 34.0 - 47.0 % | [facility] | | | | | | [facility] | | | | | | [facility] | | | | | | C[facility] - | | | | | | LABORATORY | | + + + + + + | MCV | 86.9 | 83.0 - 101.0 fL | [facility] | | | | | [facility] | | | [facility] | [facility] | | | | | | [facility] - | | | | | | LABORATORY | | + + + + + + | MCH | 30.3 | 28.0 - 35.0 pg | [facility] | | | | | | [facility] | | | | | | [facility] | | | | | | C[facility] - | | | | | | LABORATORY | | + + + + + + | MCHC | 34.9 | 32.0 - 36.0 | [facility] | | | | | g/dL | [facility] | | | | | | [facility] | | | | | | CENTER - | | | | | | LABORATORY | | + + + + + + | RDW-CV | 17.7 (H) | <15.0 % | [facility] | | | | | | [facility] | | | | | | [facility] | | | | | | C[facility] - | | | | | | LABORATORY | | + + + + + + | Platelet | 205 | 140 - 440 K/uL | [facility] | | | Count | | | [facility] | | | | | | [facility] | | | | | | CENTER - | | | | | | LABORATORY | | + + + + + + | MPV | 7.4 | fL | [facility] | | | [...] + + + + | % | 19.3 (L) | 20.0 - 45.0 % | [facility] | | | Lymphocytes | | | [facility] | | | | | | [facility] | | | | | | CENTER - | | | | | | LABORATORY | | + + + + + + | % Monocytes | 6.5 | 4.0 - 12.0 % | [facility] | | | | | | [facility] | | | | | | [facility] | | | | | | C[facility] - | | | | | | LABORATORY | | + + + + + + | % | 1.6 | 0.0 - 5.0 % | [facility] | | | Eosinophils | | | [facility] | | | | | | [facility]ICAL | | | | | | CENTER - | | | | | | LABORATORY | | + + + + + + | % Basophils | 0.7 | 0.0 - 1.0 % | [facility] | | | | | | [facility] | | | | | | [facility] | | | | | | C[facility] - | | | | | | LABORATORY | | + + + + + + | Absolute | 5.30 | 1.80 - 8.50 | [facility] | | | Neutrophils | | K/uL | [facility] | | | | | | [facility] | | | | | | CENTER - | | | | | | LABORATORY | | + + + + + + | Absolute | 1.40 | 0.60 - 3.20 | [facility] | | | Lymphocytes | | K/uL | [facility] | | | | | | [facility] | | | | | | CENTER - | | | | | | LABORATORY | | + + + + + + | Absolute | 0.50 | 0.00 - 1.00 | [facility] | [...] | 0.00 | 0.00 - 0.10 | [facility] | | | Basophils | | K/uL | [facility] | | | | | | [...] [address] | [place] | [phone] | | [facility] | | [address] | | | - LABORATORY | | | | + + + + + XR Chest AP Portable (07/28/2017 9:37 AM PST) + + | Specimen | + + | | + + + + + | Narrative | Performed At | + + + | XR CHEST AP PORTABLE 07/28/2017 9:24 AM HISTORY: Followup | [facility] | | pulmonary edema. COMPARISON: Multiple priors. Findings: The | | | heart is borderline enlarged. Aorta is normal. Mediastinum is | | | unremarkable. Pulmonary vasculature is less prominent with | | | cephalization. Small bilateral pleural effusions are seen with mild | | | compressive atelectasis. There are no acute osseous abnormalities. | | | IMPRESSION - Mild CHF with some improvement. Dictated and | | | Signed by: Gaurav Reese MD Electronically signed: 07/28/2017 10:17 | | | AM | | + + + + + | Procedure Note | + + | Prudencio, Rad Results In - 07/28/2017 10:20 AM PST XR CHEST AP PORTABLE 07/28/2017 9:24 AM | | | | HISTORY: Followup pulmonary edema. | | | | COMPARISON: Multiple priors. | | | | Findings: | | The heart is borderline enlarged. Aorta is normal. Mediastinum is unremarkable. | | Pulmonary vasculature is less prominent with cephalization. Small bilateral | | pleural effusions are seen with mild compressive atelectasis. There are no acute | | osseous abnormalities. | | | | IMPRESSION - | | Mild CHF with some improvement. | | | | Dictated and Signed by: Gaurav Reese MD | | Electronically signed: 07/28/2017 10:17 AM | + + + +---------+ + + | Performing | Address | City/State/Zipcode | Phone Number | | Organization | | | | + +---------+ + + | [facility] | | | | + +---------+ + + Renal Function Panel (07/28/2017 4:29 AM PST) + + + + + + | Component | Value | Ref Range | Performed | Pathologist | | | | | At | Signature | + + + + + + | Na | 138 | 136 - 149 | [facility] | [...] + + | Cl | 100 | 98 - 109 mmol/L | [facility] | | | | | | [facility] | | | | | | [facility] | | | | | [facility] - | | | | | | LABORATORY | | + + + + + + | CO2 | 26 | 24 - 31 mmol/L | [facility] | | | | | | [facility] | | | | | | [facility] | | | | | | C[facility] - | | | | | | LABORATORY | | + + + + + + | Anion Gap | 12 | 3 - 16 mmol/L | [facility] | | | | | | [facility] | | | | | | [facility] | | | | | | C[facility] - | | | | | | LABORATORY | | + + + + + + | Glucose | 89 | 70 - 109 mg/dL | [facility] | | | | | | [facility] | | | | | | [facility] | | | | | | C[facility] - | | | | | | LABORATORY | | + + + + + + | BUN | 42 (H) | 7 - 18 mg/dL | [facility] | | | | | | [facility] | | | | | | [facility] | | | | | | [facility] - | | | | | | LABORATORY | | + + + + + + | Creatinine | 2.74 (H) | 0.60 - 1.30 | [facility] | | | | | mg/dL | [facility] | | | | | | [facility] | | | | | | C[facility] - | | | | | | LABORATORY | | + + + + + + | eGFR if not | 19 (L) | >=60 | [facility] | | | | | mL/min/1.73m2 | [facility] | | | [facility] | | | [facility] | | | | | | [facility] - | | | | | | LABORATORY | | + + + + + + | Calcium | 8.4 | 8.3 - 10.5 | [facility] | | | | | mg/dL | [facility] | | | | | | [facility] | | | | | | C[facility] - | | | | | | LABORATORY | | + + + + + + | Albumin | 3.1 (L) | 3.2 - 5.0 g/dL | [facility] | | | | | | [facility] | | | | | | [facility] | | | | | | C[facility] - | | | | | | LABORATORY | | + + + + + + | Phosphorus | 3.8 | 2.5 - 4.6 mg/dL | [facility] | | | | | | [facility] | | | | | | [facility] | | | | | | C[facility] - | | | | | | LABORATORY | | + + + + + + | BUN/Creatin | 15.3 | | [facility] | | | ine [...] + | [facility] | [address] | [place] | [phone] | | [facility] | | [address] | | | - LABORATORY | | | | + + + + + Magnesium (07/28/2017 4:29 AM PST) + +-------+ + + + | Component | Value | Ref Range | Performed | Pathologist | | | | | At | Signature | + +-------+ + + + | Magnesium | 1.9 | 1.8 - 2.5 mg/dL | [facility] | | | | | [...] [address] | [place] | [phone] | | [facility] | | [address] | | | - LABORATORY | | | | + + + + + B Type Natriuretic Peptide (07/28/2017 4:29 AM PST) + + + + + + | Component | Value | Ref Range | Performed | Pathologist | | | | | At | Signature | + + + + + + | BNP | 1,390 (H) | <100 pg/mL | [facility] | | | | | | [facility] [...] [address] | [place] | [phone] | | [facility] | | [address] | | | - LABORATORY | | | | + + + + + CBC with Differential (07/28/2017 4:29 AM PST) + + + + + + | Component | Value | Ref Range | Performed | Pathologist | | | | | At | Signature | + + + + + + | WBC | 7.0 | 4.0 - 11.0 K/uL | [facility] | | | | | | [facility] | | | | | | MEDICAL | | | | | | CENTER - | | | | | | LABORATORY | | + + + + + + | RBC | 3.05 (L) | 3.70 - 5.20 | [facility] | | | | | M/uL | [facility] | | | | | | MEDICAL | | | | | | CENTER - | | | | | | LABORATORY | | + + + + + + | Hemoglobin | 8.9 (L) | 11.5 - 16.0 | [facility] | | | | | g/dL | [facility] | | | | | | MEDICAL | | | | | | CENTER - | | | | | | LABORATORY | | + + + + + + | Hematocrit | 26.9 (L) | 34.0 - 47.0 % | [facility] | | | | | | [facility] | | | | | | MEDICAL | | | | | | CENTER - | | | | | | LABORATORY | | + + + + + + | MCV | 88.2 | 83.0 - 101.0 fL | [facility] | | | | | | [facility] | | | | | | MEDICAL | | | | | | CENTER - | | | | | | LABORATORY | | + + + + + + | MCH | 29.1 | 28.0 - 35.0 pg | [facility] | | | | | | [facility] | | | | | | MEDICAL | | | | | | CENTER - | | | | | | LABORATORY | | + + + + + + | MCHC | 32.9 | 32.0 - 36.0 | [facility] | | | | | g/dL | [facility] | | | | | | MEDICAL | | | | | | CENTER - | | | | | | LABORATORY | | + + + + + + | RDW-CV | 17.6 (H) | <15.0 % | [facility] | | | | | | [facility] | | | | | | [facility] | | | | | | CENTER - | | | | | | LABORATORY | | + + + + + + | Platelet | 235 | 140 - 440 K/uL | [facility] | | | Count | | | [facility] | | | | | | MEDICAL | | | | | | CENTER - | | | | | | LABORATORY | | + + + + + + | MPV | 7.4 | fL | [facility] | | | | | | [facility] | | | | | | MEDICAL | | | | | | CENTER - | | | | | | LABORATORY | | + + + + + + | % | 68.8 | 45.0 - 82.0 % | [facility] | | | Neutrophils | | | [facility] | | | | | | MEDICAL | | | | | | CENTER - | | | | | | LABORATORY | | + + + + + + | % | 21.9 | 20.0 - 45.0 % | [facility] [...] + + + + | % | 1.5 | 0.0 - 5.0 % | [facility] [...] + + + + | Absolute | 4.80 | 1.80 - 8.50 | [facility] | [...] + + + + | Absolute | 0.50 | 0.00 - 1.00 | [facility] | [...] [address] | [place] | [phone] | | [facility] | | [address] | | | - LABORATORY | | | | + + + + + US Renal Limited (07/27/2017 9:31 AM PST) + + | Specimen | + + | | + + + + + | Narrative | Performed At | + + + | US RENAL LIMITED 07/27/2017 9:00 AM HISTORY: AUNG, evaluate for | [facility] | | obstruction. COMPARISON: None. PROTOCOL: De Leon scale and | | | Doppler images of the kidneys and bladder. FINDINGS: Right | | | Kidney: There is slightly increased echogenicity along with elevated | | | resistive indices of 0.76 and 0.72 consistent with medical renal | | | disease. There is no hydronephrosis. A small amount of perinephric | | | fluid is seen along the superior pole. Size of the kidney is 9.8 x | | | 5.2 x 4.0 cm. Left Kidney: There is slightly increased | | | echogenicity along with elevated resistive indices of 0.77 and 0.74 | | | consistent with medical renal disease. There is no hydronephrosis. | | | Size of the kidney is 11.4 x 3.8 x 4.4 cm. Bladder: A catheter is | | | in place with decompression of the bladder. Incidentally seen is a | | | small left pleural effusion. IMPRESSION - Slightly increased | | | echogenicity of bilateral kidneys along with elevated resistive | | | indices consistent with medical renal disease. There is no | | | hydronephrosis. Small left pleural effusion. Dictated and | | | Signed by: Gaurav Reese MD Electronically signed: 07/27/2017 1:33 | | | PM | | + + + + + | Procedure Note | + + | Prudencio, Rad Results In - 07/27/2017 1:36 PM PST US RENAL LIMITED 07/27/2017 9:00 AM | | | | HISTORY: AUNG, evaluate for obstruction. | | | | COMPARISON: None. | | | | PROTOCOL: De Leon scale and Doppler images of the kidneys and bladder. | | | | FINDINGS: | | Right Kidney: There is slightly increased echogenicity along with elevated | | resistive indices of 0.76 and 0.72 consistent with medical renal disease. There | | is no hydronephrosis. A small amount of perinephric fluid is seen along the | | superior pole. Size of the kidney is 9.8 x 5.2 x 4.0 cm. | | | | Left Kidney: There is slightly increased echogenicity along with elevated | | resistive indices of 0.77 and 0.74 consistent with medical renal disease. There | | is no hydronephrosis. Size of the kidney is 11.4 x 3.8 x 4.4 cm. | | | | Bladder: A catheter is in place with decompression of the bladder. | | | | Incidentally seen is a small left pleural effusion. | | | | IMPRESSION - | | Slightly increased echogenicity of bilateral kidneys along with elevated | | resistive indices consistent with medical renal disease. There is no | | hydronephrosis. | | | | Small left pleural effusion. | | | | Dictated and Signed by: Gaurav Reese MD | | Electronically signed: 07/27/2017 1:33 PM | + + + +---------+ + + | Performing | Address | City/State/Zipcode | Phone Number | | Organization | | | | + +---------+ + + | [facility] | | | | + +---------+ + + XR Chest 2 VW (07/27/2017 8:26 AM PST) + + | Specimen | + + | | + + + + + | Narrative | Performed At | + + + | XR CHEST 2 VW 07/27/2017 8:06 AM HISTORY: Evaluate for CHF. | [facility] | | COMPARISON: Multiple priors. Findings: The heart is borderline | | | enlarged. Aorta is normal. Mediastinum is unremarkable. Pulmonary | | | vasculature is prominent with cephalization. Small bilateral pleural | | | effusions are seen with mild compressive atelectasis. There are no | | | acute osseous abnormalities. IMPRESSION - Mild CHF. Dictated | | | and Signed by: Gaurav Reese MD Electronically signed: 07/27/2017 | | | 8:58 AM | | + + + + + | Procedure Note | + + | Prudencio, Rad Results In - 07/27/2017 9:01 AM PST XR CHEST 2 VW 07/27/2017 8:06 AM | | | | HISTORY: Evaluate for CHF. | | | | COMPARISON: Multiple priors. | | | | Findings: | | The heart is borderline enlarged. Aorta is normal. Mediastinum is unremarkable. | | Pulmonary vasculature is prominent with cephalization. Small bilateral pleural | | effusions are seen with mild compressive atelectasis. There are no acute osseous | | abnormalities. | | | | IMPRESSION - | | Mild CHF. | | | | Dictated and Signed by: Gaurav Reese MD | | Electronically signed: 07/27/2017 8:58 AM | + + + +---------+ + + | Performing | Address | City/State/Zipcode | Phone Number | | Organization | | | | + +---------+ + + | [facility] | | | | + +---------+ + + ANCA Panel, no reflex (07/27/2017 4:37 AM PST) + + + + + + | Component | Value | Ref Range | Performed | Pathologist | | | | | At | Signature | + + + + + + | Myeloperoxi | <9.0 | 0.0 - 9.0 U/mL | REFERENCE | | | dase | | | LAB [facility] | | | Antibody | | | - [facility]KR | | + + + + + + | Proteinase | <3.5 | 0.0 - 3.5 U/mL | REFERENCE | | | 3 Antibody | | | LAB [facility] | | | | | | - BKR | | + + + + + + | C ANCA | <1:20 | Neg:<1:20 titer | REFERENCE | | | | | | LAB [facility] | | | | | | - BKR | | + + + + + + | P ANCA | <1:20Comment: The | Neg:<1:20 titer | REFERENCE | | | | presence of positive | | LAB [facility] | | | | fluorescence exhibiting | | - BKR | | | | P-ANCA or C-ANCApatterns | | | | | | alone is not specific | | | | | | for the diagnosis of | | | | | | Brina'sGranulomatosis | | | | | | (WG) or microscopic | | | | | | polyangiitis. Decisions | | | | | | abouttreatment should | | | | | | not be based solely on | | | | | | ANCA IFA results. | | | | | | TheInternational ANCA | | | | | | Group Consensus | | | | | | recommends follow up | | | | | | testing ofpositive sera | | | | | | with both AR-3 and | | | | | | MPO-ANCA enzyme | | | | | | immunoassays. Garett as | | | | | | 5% serum samples are | | | | | | positive only by | | | | | | EIA.Ref. AM J Clin | | | | | | Pathol 1998;111:[id number]. | | | | + + + + + + | Atypical | <1:20Comment: The | Neg:<1:20 titer | REFERENCE | | | pANCA | atypical pANCA pattern | | LAB [facility] | | | | has been observed in a | | - BKR | | | | significantpercentage of | | | | | | patients with | | | | | | ulcerative colitis, | | | | | | primary | | | | | | sclerosingcholangitis | | | | | | and autoimmune | | | | | | hepatitis. | | | | + + + + + + + + | Specimen | + + | Blood | + + + + + | Narrative | Performed At | + + + | Performed at: 01 - [facility] [address] [facility], | REFERENCE LAB | | [place], [place] [id number] [employer]: Mike Rehman MD, Phone: | [place] | | [phone] | | + + + + + + + + | Performing | Address | City/State/Zipcode | Phone Number | | Organization | | | | + + + + + | REFERENCE LAB | [id number] | [place], [place] [address] | [phone] | | [place] | [address] [facility] | | | + + + + + Complement C4 Ag (07/27/2017 4:37 AM PST) + +-------+ + + + | Component | Value | Ref Range | Performed | Pathologist | | | | | At | Signature | + +-------+ + + + | C4 | 24 | 14 - 44 mg/dL | REFERENCE | | | COMPLEMENT | | | LAB [facility] | | | | | | - [facility] | | + +-------+ + + + + + | Specimen | + + | Blood | + + + + + | Narrative | Performed At | + + + | Performed at: - [facility] [address], | REFERENCE LAB | | [place], [place] [id number] [employer] Babysitter: Jonah Parekh MD, Phone: | [facility] | | [phone] | | + + + + + + + + | Performing | Address | City/State/Zipcode | Phone Number | | Organization | | | | + + + + + | REFERENCE LAB | [address] | [place] [address] | [phone] | | [facility] | [address] | | | + + + + + Complement C3 Ag (07/27/2017 4:37 AM PST) + +-------+ + + + | Component | Value | Ref Range | Performed | Pathologist | | | | | At | Signature | + +-------+ + + + | C3 | 107 | 82 - 167 mg/dL | REFERENCE | | | COMPLEMENT | | | LAB [facility] | | | | | | - BKR | | + +-------+ + + + + + | Specimen | + + | Blood | + + + + + | Narrative | Performed At | + + + | Performed at: [address] [address], | REFERENCE LAB | | [place], [place] [id number] [employer] Babysitter: Jonah Parekh MD, Phone: | [facility] | | [phone] | | + + + + + + + + | Performing | Address | City/State/Zipcode | Phone Number | | Organization | | | | + + + + + | REFERENCE LAB | [address] | [place] [address] | [phone] | | [facility] | [address] | | | + + + + + Mikaelaime INR (07/27/2017 4:37 AM PST) + + + + + + | Component | Value | Ref Range | Performed | Pathologist | | | | | At | Signature | + + + + + + | Prothrombin | 13.2 | 11.3 - 13.9 | [facility] | | | Time | | seconds | [facility] | | | | | | MEDICAL | | | | | | CENTER - | | | | | | LABORATORY | | + + + + + + | INR | 1.01Comment: Usual Oral | 0.90 - 1.10 | [...] + | [facility] | [address] | [place] | [phone] | | [facility] | | [address] | | | - LABORATORY | | | | + + + + + Phosphorus (07/27/2017 4:37 AM PST) + +-------+ + + + | Component | Value | Ref Range | Performed | Pathologist | | | | | At | Signature | + +-------+ + + + | Phosphorus | 4.1 | 2.5 - 4.6 mg/dL | [facility] | | | | | [...] [address] | [place] | [phone] | | [facility] | | [address] | | | - LABORATORY | | | | + + + + + Magnesium (07/27/2017 4:37 AM PST) + +-------+ + + + | Component | Value | Ref Range | Performed | Pathologist | | | | | At | Signature | + +-------+ + + + | Magnesium | 2.0 | 1.8 - 2.5 mg/dL | [facility] [...] + | [facility] | [address] | [place] | [phone] | | [facility] | | [address] | | | - LABORATORY | | | | + + + + + Comprehensive Metabolic Panel (07/27/2017 4:37 AM PST) + + + + + + | Component | Value | Ref Range | Performed | Pathologist | | | | | At | Signature | + + + + + + | Na | 138 | 136 - 149 | [facility] | [...] + + + + | Cl | 102 | 98 - 109 mmol/L | [facility] | | | | | | [facility] | | | | | | MEDICAL | | | | | | CENTER - | | | | | | LABORATORY | | + + + + + + | CO2 | 26 | 24 - 31 mmol/L | [facility] | | | | | | [facility] | | | | | | MEDICAL | | | | | | CENTER - | | | | | | LABORATORY | | + + + + + + | Anion Gap | 10 | 3 - 16 mmol/L | [facility] [...] + + + + | BUN | 47 (H) | 7 - 18 mg/dL | [...] | | | | | mg/dL | [facility] | | | | | | MEDICAL | | | | | | CENTER - | | | | | | LABORATORY | | + + + + + + | eGFR if not | 19 (L)Comment: | >=60 | [facility] | | | | GLOMERULAR FILTRATION | mL/min/1.73m2 | [facility] | | | [facility] | RATE,ESTIMATED | | MEDICAL | | | | mL/min/1.88x4Ezqs than | | CENTER - | | [...] + | Calcium | 7.8 (L) | 8.3 - 10.5 | [facility] | | | | | mg/dL | [facility] | | | | | | MEDICAL | | | | | | CENTER - | | | | | | LABORATORY | | + + + + + + | Albumin | 2.6 (L) | 3.2 - 5.0 g/dL | [facility] | | | | | | [facility] | | | | | | [facility] | | | | | | CENTER - | | | | | | LABORATORY | | + + + + + + | Bilirubin | 0.5 | 0.1 - 1.5 mg/dL | [facility] | | | Total | | | [facility] | | | | | | MEDICAL | | | | | | CENTER - | | | | | | LABORATORY | | + + + + + + | Total | 4.9 (L) | 6.0 - 7.8 g/dL | [facility] | | | Protein | | | [facility] | | | | | | MEDICAL | | | | | | CENTER - | | | | | | LABORATORY | | + + + + + + | AST | 26 | 10 - 42 U/L | [facility] | | | | | | [facility] | | | | | | MEDICAL | | | | | | CENTER - | | | | | | LABORATORY | | + + + + + + | ALT | 48 (H) | 6 - 45 U/L | [facility] [...] + + + + | Globulin | 2.3 | 2.1 - 3.8 g/dL | [facility] [...] + + + + | BUN/Creatin | 16.7 | | [facility] | | | ine Ratio | | | [facility] | | [...] [address] | [place] | [phone] | | [facility] | | [address] | | | - LABORATORY | | | | + + + + + CBC with Differential (07/27/2017 4:37 AM PST) + + + + + + | Component | Value | Ref Range | Performed | Pathologist | | | | | At | Signature | + + + + + + | WBC | 7.0 | 4.0 - 11.0 K/uL | [facility] | | | | | | [facility] | | | | | | MEDICAL | | | | | | CENTER - | | | | | | LABORATORY | | + + + + + + | RBC | 2.60 (L) | 3.70 - 5.20 | [facility] | | | | | M/uL | [facility] | | | | | | MEDICAL | | | | | | CENTER - | | | | | | LABORATORY | | + + + + + + | Hemoglobin | 7.6 (L) | 11.5 - 16.0 | [facility] | | | | | g/dL | [facility] | | | | | | MEDICAL | | | | | | CENTER - | | | | | | LABORATORY | | + + + + + + | Hematocrit | 22.6 (L) | 34.0 - 47.0 % | [facility] | | | | | | [facility] | | | | | | MEDICAL | | | | | | CENTER - | | | | | | LABORATORY | | + + + + + + | MCV | 86.8 | 83.0 - 101.0 fL | [facility] | | | | | | [facility] | | | | | | MEDICAL | | | | | | CENTER - | | | | | | LABORATORY | | + + + + + + | MCH | 29.2 | 28.0 - 35.0 pg | [facility] | | | | | | [facility] | | | | | | MEDICAL | | | | | | CENTER - | | | | | | LABORATORY | | + + + + + + | MCHC | 33.6 | 32.0 - 36.0 | [facility] | | | | | g/dL | [facility] | | | | | | MEDICAL | | | | | | CENTER - | | | | | | LABORATORY | | + + + + + + | RDW-CV | 17.8 (H) | <15.0 % | [facility] | | | | | | [facility] | | | | | | MEDICAL | | | | | | CENTER - | | | | | | LABORATORY | | + + + + + + | Platelet | 203 | 140 - 440 K/uL | [facility] | | | Count | | | [facility] | | | | | | MEDICAL | | | | | | CENTER - | | | | | | LABORATORY | | + + + + + + | MPV | 7.8 | fL | [facility] | | | | | | [facility] | | | | | | MEDICAL | | | | | | CENTER - | | | | | | LABORATORY | | + + + + + + | % | 68.6 | 45.0 - 82.0 % | [facility] | | | Neutrophils | | | [facility] | | | | | | MEDICAL | | | | | | CENTER - | | | | | | LABORATORY | | + + + + + + | % | 21.5 | 20.0 - 45.0 % | [facility] | | | Lymphocytes | | | [facility] | | | | | | MEDICAL | | | | | | CENTER - | | | | | | LABORATORY | | + + + + + + | % Monocytes | 8.4 | 4.0 - 12.0 % | [facility] [...] + + + | % Basophils | 0.6 | 0.0 - 1.0 % | [facility] | | | | | | [facility] | | | | | | MEDICAL | | | | | | CENTER - | | | | | | LABORATORY | | + + + + + + | Absolute | 4.80 | 1.80 - 8.50 | [facility] | [...] | + + + + + | [facility] | [address] | [place] | [phone] | | [facility] | | [address] | | | - LABORATORY | | | | + + + + + Troponin I (07/26/2017 7:23 PM PST) + + + + + + | Component | Value | Ref Range | Performed | Pathologist | | | | | At | Signature | + + + + + + | Troponin I | 0.08 (H)Comment: | <0.06 ng/mL | [facility] | [...] | | | | | | [employer] | | | | | [...] + | [facility] | [address] | [place] | [phone] | | [facility] | | [address] | | | - LABORATORY | | | | + + + + + Lactate Dehydrogenase (07/26/2017 4:16 PM PST) + +---------+ + + + | Component | Value | Ref Range | Performed | Pathologist | | | | | At | Signature | + +---------+ + + + | LDH TOTAL | 344 (H) | 91 - 180 U/L | [facility] | | | | | | [facility] | | | | | | MEDICAL | | | | | | CENTER - | | | | | | LABORATORY | | + +---------+ + + + + + | Specimen | + + | Blood | + + + + + + + | Performing | Address | City/State/Zipcode | Phone Number | | Organization | | | | + + + + + | [facility] | [address] | [place] | [phone] | | [facility] | | [address] | | | - LABORATORY | | | | + + + + + ECHO Complete (07/26/2017 3:56 PM PST) + +-------+ + + + | Component | Value | Ref Range | Performed | Pathologist | | | | | At | Signature | + +-------+ + + + | LVEF-TTE | 58 | | [facility] | | | TRANSTHORAC | | | | | | IC ECHO | | | | | + +-------+ + + + + + | Specimen | + + | | + + + +-- + | Narrative | P erformed At | + +-- + | Transthoracic | [facility] | | Echocardiography Report (TTE) Demographics Patient Name KRISTAN | | | AUREA Room Number 452 L | | | Patient Number [id number] Date of Study | | | 07/26/2017 Visit Number [id number] | | | Referring Physician RAMY RUEDAHWA Number Date of | | | 1980 Review Consultant Merritt Gallito | | | Age 37 year(s) Interpreting | | | [facility] B[facility]UN | | | Ic Designer [employer] LE | | | LE HOFF MD | | | 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 Procedure dateDate: | | | 07/26/2017Start: 03:25 PM Technical Quality: Adequate | | | visualizationStudy Location: ICUIndications: Pulmonary Edema | | | 518.4/J81.0.Patient Status: RoutineHeight: 66 inchesWeight: 130 | | | poundsBSA: 1.67 m^2BMI: 20.98 kg/m^2Rhythm: Normal Sinus RhythmHR: 89 | | | bpm ConclusionsSummaryLeft ventricle is normal in size and function. | | | There is mild concentric LVHnoted. Ejection fraction is estimated at | | | 58%.There is grade 1 LV diastolic dysfunction.Aortic valve is a mildly | | | sclerotic, potentially bicuspid valve. Peakvelocity is increased at | | | 2.6 m/s with mean/peak gradients of 14/27 mmHg.There is mild stenosis | | | with mild insufficiency noted.Structurally normal tricuspid valve with | | | moderate insufficiency and peakvelocity consistent with RVSP 43-48 | | | mmHg.Compared with patient's prior study of June 2017, there is | | | suggestion ofmild aortic stenosis. Mitral regurgitation severity | | | appears reduced. | | | Signature | | | | | | PM | | | -------- FindingsMitral ValveMitral valve is mildly thickened with | | | trace insufficiency.Aortic ValveAortic valve is a mildly sclerotic, | | | potentially bicuspid valve. Peakvelocity is increased at 2.6 m/s with | | | mean/peak gradients of 14/27 mmHg.There is mild stenosis with mild | | | insufficiency noted.Tricuspid ValveStructurally normal tricuspid valve | | | with moderate insufficiency and peakvelocity consistent with RVSP | | | 43-48 mmHg.Pulmonic ValveStructurally normal pulmonic valve without | | | significant stenosis orregurgitation.Left AtriumNormal sized left | | | atrium.Left VentricleLeft ventricle is normal in size and function. | | | There is mild concentric LVHnoted. Ejection fraction is estimated at | | | 58%.There is grade 1 LV diastolic dysfunction.Right AtriumNormal right | | | atrial size.Right VentricleNormal right ventricular size.Right | | | ventricle global systolic function is normal.TAPSE = 3 cm.Pericardial | | | EffusionThere is a trace pericardial effusion.Pleural EffusionNo | | | evidence of pleural effusion.MiscellaneousNormal aortic root.The IVC | | | appears normal size.IVC respiratory change in dimension > 50%. Valves | | | Mitral Valve Peak E-Wave: 1.1 m/s Peak A-Wave: 0.99 m/s Tissue | | | Doppler Septal e' Velocity: 0.07 m/s Aortic Valve Mean | | | Gradient: 14.16 mmHg Tricuspid Valve TR Velocity: 3.06 m/s LVOT | | | Peak Velocity: 1.68 m/s Structures Left Atrium LA A/P Dimension: | | | 3.51 cm LA Area: 14.51 cm^2 LA Vol/BSA | | | Index: 31 mL/m^2 LA Volume: 51.99 ml | | | EF | | | [id number]% Left Ventricle Diastolic Dimension: 5.62 cm | | | Systolic Dimension: 2.99 cm Septum Diastolic: 1.02 cm PW Diastolic: | | | 1.13 cm EF Calculated: 58% Miscellaneous Aorta Aortic Root: 3.27 | | | cm Ascending Aorta: 3.21 cm | | |Mitral Valve | | |Mitral valve is mildly thickened with trace insufficiency. | | |Aortic Valve | | |Aortic valve is a mildly sclerotic, potentially bicuspid valve. Peak | | |velocity is increased at 2.6 m/s with mean/peak gradients of 14/27 mmHg. | | |There is mild stenosis with mild insufficiency noted. | | |Tricuspid Valve | | |Structurally normal tricuspid valve with moderate insufficiency and peak | | |velocity consistent with RVSP 43-48 mmHg. | | |Pulmonic Valve | | |Structurally normal pulmonic valve without significant stenosis or | | |regurgitation. | | |Left Atrium | | |Normal sized left atrium. | | |Left Ventricle | | |Left ventricle is normal in size and function. There is mild concentric LVH | | |noted. Ejection fraction is estimated at 58%. | | |There is grade 1 LV diastolic dysfunction. | | |Right Atrium | | |Normal right atrial size. | | |Right Ventricle | | |Normal right ventricular size. | | |Right ventricle global systolic function is normal. | | |TAPSE = 3 cm. | | |Pericardial Effusion | | |There is a trace pericardial effusion. | | |Pleural Effusion | | |No evidence of pleural effusion. | | |Miscellaneous | | |Normal aortic root. | | |The IVC appears normal size. | | |IVC respiratory change in dimension > 50%. | | | | | |Valves | | | | | | Mitral Valve | | | | | | Peak E-Wave: 1.1 m/s | | | Peak A-Wave: 0.99 m/s | | | | | | Tissue Doppler | | | | | | Septal e' Velocity: 0.07 m/s | | | | | | Aortic Valve | | | | | | Mean Gradient: 14.16 mmHg | | | | | | Tricuspid Valve | | | | | | TR Velocity: 3.06 m/s | | | | | | LVOT | | | | | | Peak Velocity: 1.68 m/s | | | | | |Structures | | | | | | Left Atrium | | | | | | LA A/P Dimension: 3.51 cm LA Area: 14.51 cm^2 | | | LA Vol/BSA Index: 31 mL/m^2 LA Volume: 51.99 ml | | | EF Gporjdrvi98% | | | | | | Left Ventricle | | | | | | Diastolic Dimension: 5.62 cm Systolic Dimension: 2.99 cm | | | Septum Diastolic: 1.02 cm | | | PW Diastolic: 1.13 cm | | | EF Calculated: 58% | | | | | | Miscellaneous | | | | | | Aorta | | | | | | Aortic Root: 3.27 cm | | | Ascending Aorta: 3.21 cm | | | | | + +-- + + + | Procedure Note | + + | Prudencio, Rad Results In - 07/26/2017 7:09 PM PST Transthoracic Echocardiography Report | | (TTE) Demographics Patient Name KRISTAN PIERSON Room Number 452 | | L Patient Number [id number] Date of Study 07/26/2017 Visit Number | | [id number] Referring Physician RAMY JED-HWA Number | | Date of 1980 Review Consultant Merritt Conti Age | | 37 year(s) Interpreting [facility] EDUARDO BRAUN | | Ic Designer [employer] LE | | LE HOFF MD Gender Female Nurse | | Stress TechnicianProcedureType of Study TTE procedure: ECHO Complete.Procedure | | dateDate: 07/26/2017Start: 03:25 PMTechnical Quality: Adequate visualizationStudy | | Location: ICUIndications: Pulmonary Edema 518.4/J81.0.Patient Status: RoutineHeight: 66 | | inchesWeight: 130 poundsBSA: 1.67 m^2BMI: 20.98 kg/m^2Rhythm: Normal Sinus RhythmHR: 89 | | bpmConclusionsSummaryLeft ventricle is normal in size and function. There is mild | | concentric LVHnoted. Ejection fraction is estimated at 58%.There is grade 1 LV diastolic | | dysfunction.Aortic valve is a mildly sclerotic, potentially bicuspid valve. | | Peakvelocity is increased at 2.6 m/s with mean/peak gradients of 14/27 mmHg.There is | | mild stenosis with mild insufficiency noted.Structurally normal tricuspid valve with | | moderate insufficiency and peakvelocity consistent with RVSP 43-48 mmHg.Compared with | | patient's prior study of June 2017, there is suggestion ofmild aortic stenosis. | | Mitral regurgitation severity appears | | reduced.Signature | | ----- | | 07:08 | | PM FindingsMi | | tral ValveMitral valve is mildly thickened with trace insufficiency.Aortic ValveAortic | | valve is a mildly sclerotic, potentially bicuspid valve. Peakvelocity is increased at | | 2.6 m/s with mean/peak gradients of 14/27 mmHg.There is mild stenosis with mild | | insufficiency noted.Tricuspid ValveStructurally normal tricuspid valve with moderate | | insufficiency and peakvelocity consistent with RVSP 43-48 mmHg.Pulmonic | | ValveStructurally normal pulmonic valve without significant stenosis | | orregurgitation.Left AtriumNormal sized left atrium.Left VentricleLeft ventricle is | | normal in size and function. There is mild concentric LVHnoted. Ejection fraction is | | estimated at 58%.There is grade 1 LV diastolic dysfunction.Right AtriumNormal right | | atrial size.Right VentricleNormal right ventricular size.Right ventricle global systolic | | function is normal.TAPSE = 3 cm.Pericardial EffusionThere is a trace pericardial | | effusion.Pleural EffusionNo evidence of pleural effusion.MiscellaneousNormal aortic | | root.The IVC appears normal size.IVC respiratory change in dimension > 50%.Valves Mitral | | Valve Peak E-Wave: 1.1 m/s Peak A-Wave: 0.99 m/s Tissue Doppler Septal e' Velocity: | | 0.07 m/s Aortic Valve Mean Gradient: 14.16 mmHg Tricuspid Valve TR Velocity: 3.06 | | m/s LVOT Peak Velocity: 1.68 m/sStructures Left Atrium LA A/P Dimension: 3.51 cm | | LA Area: 14.51 cm^2 LA Vol/BSA Index: 31 mL/m^2 LA | | Volume: 51.99 ml EF [id number]% Left | | Ventricle Diastolic Dimension: 5.62 cm Systolic Dimension: 2.99 cm Septum | | Diastolic: 1.02 cm PW Diastolic: 1.13 cm EF Calculated: 58% Miscellaneous Aorta Aortic | | Root: 3.27 cm Ascending Aorta: 3.21 cm | |velocity is increased at 2.6 m/s with mean/peak gradients of 14/27 mmHg. | |There is mild stenosis with mild insufficiency noted. | |Structurally normal tricuspid valve with moderate insufficiency and peak | |velocity consistent with RVSP 43-48 mmHg. | |Compared with patient's prior study of June 2017, there is suggestion of | |mild aortic stenosis. Mitral regurgitation severity appears reduced. | | | |Signature | | | | Electronically signed by LE HOFF MD(Interpreting physician) on | | 07/26/2017 07:08 PM | | | | | |Findings | |Mitral Valve | |Mitral valve is mildly thickened with trace insufficiency. | |Aortic Valve | |Aortic valve is a mildly sclerotic, potentially bicuspid valve. Peak | |velocity is increased at 2.6 m/s with mean/peak gradients of 14/27 mmHg. | |There is mild stenosis with mild insufficiency noted. | |Tricuspid Valve | |Structurally normal tricuspid valve with moderate insufficiency and peak | |velocity consistent with RVSP 43-48 mmHg. | |Pulmonic Valve | |Structurally normal pulmonic valve without significant stenosis or | |regurgitation. | |Left Atrium | |Normal sized left atrium. | |Left Ventricle | |Left ventricle is normal in size and function. There is mild concentric LVH | |noted. Ejection fraction is estimated at 58%. | |There is grade 1 LV diastolic dysfunction. | |Right Atrium | |Normal right atrial size. | |Right Ventricle | |Normal right ventricular size. | |Right ventricle global systolic function is normal. | |TAPSE = 3 cm. | |Pericardial Effusion | |There is a trace pericardial effusion. | |Pleural Effusion | |No evidence of pleural effusion. | |Miscellaneous | |Normal aortic root. | |The IVC appears normal size. | |IVC respiratory change in dimension > 50%. | | | |Valves | | | | Mitral Valve | | | | Peak E-Wave: 1.1 m/s | | Peak A-Wave: 0.99 m/s | | | | Tissue Doppler | | | | Septal e' Velocity: 0.07 m/s | | | | Aortic Valve | | | | Mean Gradient: 14.16 mmHg | | | | Tricuspid Valve | | | | TR Velocity: 3.06 m/s | | | | LVOT | | | | Peak Velocity: 1.68 m/s | | | |Structures | | | | Left Atrium | | | | LA A/P Dimension: 3.51 cm LA Area: 14.51 cm^2 | | LA Vol/BSA Index: 31 mL/m^2 LA Volume: 51.99 ml | | EF Muxkftvhg81% | | | | Left Ventricle | | | | Diastolic Dimension: 5.62 cm Systolic Dimension: 2.99 cm | | Septum Diastolic: 1.02 cm | | PW Diastolic: 1.13 cm | | EF Calculated: 58% | | | | Miscellaneous | | | | Aorta | | | | Aortic Root: 3.27 cm | | Ascending Aorta: 3.21 cm | + + + +---------+ + + | Performing | Address | City/State/Zipcode | Phone Number | | Organization | | | | + +---------+ + + | [facility] | | | | + +---------+ + + Creatinine, Urine, Random (07/26/2017 2:05 PM PST) + +-------+ + + + | Component | Value | Ref Range | Performed | Pathologist | | | | | At | Signature | + +-------+ + + + | Creatinine, | 19 | mg/dL | [facility] | | | Urine, | | | [facility] | | | Random | | | MEDICAL | | | | | | CENTER - | | | | | | LABORATORY | | + +-------+ + + + + + | Specimen | + + | Urine | + + + + + | Narrative | Performed At | + + + | The reference range and other method performance specifications have | [facility] | | not been established for this test. These results should be | [facility] | | integrated into the clinical context for interpretation. | [facility] | | | - LABORATORY | + + + + + + + + | Performing | Address | City/State/Zipcode | Phone Number | | Organization | | | | + + + + + | [facility] | [address] | [place], [place] | [phone] | | [facility] | | [address] | | | - LABORATORY | | | | + + + + + Osmolality, Urine (07/26/2017 2:05 PM PST) + +-------+ + + + | Component | Value | Ref Range | Performed | Pathologist | | | | | At | Signature | + +-------+ + + + | OSMO URINE | 323 | 300 - 1,000 | [facility] | | | | | mOsm/kg | [facility] | | | | [...] [address] | [place] | [phone] | | [facility] | | [address] | | | - LABORATORY | | | | + + + + + Sodium, Urine, Random (07/26/2017 2:05 PM PST) + +-------+ + + + | Component | Value | Ref Range | Performed | Pathologist | | | | | At | Signature | + +-------+ + + + | Sodium, | 109 | 27 - 287 mmol/L | [facility] | | | Urine | | | [facility] | | | Random | | | MEDICAL | | | [...] | + + + + + | [facility] | [address] | [place] | [phone] | | [facility] | | [address] | | | - LABORATORY | | | | + + + + + Protein/Creatinine Ratio, Urine (07/26/2017 2:05 PM PST) + + + + + + | Component | Value | Ref Range | Performed | Pathologist | | | | | At | Signature | + + + + + + | Protein, | 37 (H) | <6 mg/dL | [facility] | | | Urine | | | [facility] | | | | | | MEDICAL | | | | | | CENTER - | | | | | | LABORATORY | | + + + + + + | Creatinine, | 19 | mg/dL | [facility] | | | Urine, | | | [facility] | | | Random | | | MEDICAL | | | | | | CENTER - | | | | | | LABORATORY | | + + + + + + | PRO/CREA | 1.95 (H) | <0.20 mg/mg | [facility] | | | RATIO,URINE | | | [facility] | | [...] [address] | [place] | [phone] | | [facility] | | [address] | | | - LABORATORY | | | | + + + + + Urinalysis, Reflex Microscopic and/or Culture (07/26/2017 2:05 PM PST) + + + + + + | Component | Value | Ref Range | Performed | Pathologist | | | | | At | Signature | + + + + + + | Color | Straw | Light Yellow, | [facility] | | | | | Yellow, Straw | [facility] | | | | [...] + + + + | Specific | 1.006 | 1.001 - 1.030 | [facility] | | | [place] | | | [facility] | | | | | | MEDICAL | | | | | | CENTER - | | | | | | LABORATORY | | + + + + + + | Protein, | 30 mg/dL (A) | Negative | [facility] | [...] + + + | RBC UA | 10-15 (A) | 0 - 2 /HPF | [facility] | | | | | | [facility] | | | | | | MEDICAL | | | | | | CENTER - | | | | | | LABORATORY | | + + + + + + | SQUAMOUS | 0-2 | 0 - 2 /LPF [...] + + + | MUCUS UA | Present (A) | Negative /LPF | [facility] | | | | | | [facility] | | | | | | MEDICAL | | | | | | CENTER - | | | | | | LABORATORY | | + + + + + + | HYALINE | 0-2 | 0 - 2 /LPF | [facility] | | | [facility] | | | [facility] | | | | | | MEDICAL | | | | | | CENTER - | | | | | | LABORATORY | | + + + + + + | URINE | Urine Culture Not | | [facility] | | | COMMENT | Indicated | | [facility] | | | | | | MEDICAL | | | | | | CENTER - | | | | | | LABORATORY | | + + + + + + + + | Specimen | + + | Urine - Urine | | specimen obtained by | | single | | catheterization of | | bladder (specimen) | + + + + + + + | Performing | Address | City/State/Zipcode | Phone Number | | Organization | | | | + + + + + | [facility] | [address] | [place] | [phone] | | [facility] | | [id number] | | | - LABORATORY | | | | + + + + + Drugs of Abuse, Screen, Urine (07/26/2017 2:05 PM PST) + + + + + + | Component | Value | Ref Range | Performed | Pathologist | | | | | At | Signature | + + + + + + | Amphetamine | Negative | Negative | [facility] | | | Screen, | | | [facility] | | | Urine | | [...] + + + + | Cannabinoid | Negative | Negative | [facility] | [...] | | specimen obtained by | | single | | catheterization of | | bladder (specimen) | + + + + + + + | Performing | Address | City/State/Zipcode | Phone Number | | Organization | | | | + + + + + | [facility] | [address] | [place] | [phone] | | [facility] | | [address] | | | - LABORATORY | | | | + + + + + Retic Count (07/26/2017 1:43 PM PST) + +--------+ + + + | Component | Value | Ref Range | Performed | Pathologist | | | | | At | Signature | + +--------+ + + + | % | 1.3 | 0.5 - 1.5 % | [facility] | | | Reticulocyt | | | [facility] | | | e Count | | | MEDICAL | | | | | | CENTER - | | | | | | LABORATORY | | + +--------+ + + + | Absolute | 0.0376 | M/uL | [facility] | | | Reticulocyt | | | [facility] | | | e Count | | | MEDICAL | | | [...] ST. | [address] | [place], [place] | [phone] | | [facility] | | [address] | | | - LABORATORY | | | | + + + + + Extra Lavender Top Tube (07/26/2017 1:43 PM PST) + +-------+ + + + | Component | Value | Ref Range | Performed | Pathologist | | | | | At | Signature | + +-------+ + + + | Extra | Done | | [facility] | | | Lavender | | | [facility] | | | Top Tube | [...] [address] | [place] | [phone] | | [facility] | | [address] | | | - LABORATORY | | | | + + + + + Hepatic Function Panel (07/26/2017 1:40 PM PST) + +---------+ + + + | Component | Value | Ref Range | Performed | Pathologist | | | | | At | Signature | + +---------+ + + + | Bilirubin | 0.8 | 0.1 - 1.5 mg/dL | [facility] | | | Total | | | [facility] | | | | | | MEDICAL | | | | | | CENTER - | | | | | | LABORATORY | | + +---------+ + + + | Total | 6.0 | 6.0 - 7.8 g/dL | [facility] | | | Protein | | | [facility] | | | | | | MEDICAL | | | | | | CENTER - | | | | | | LABORATORY | | + +---------+ + + + | Albumin | 3.1 (L) | 3.2 - 5.0 g/dL | [facility] | | | | | | [facility] | | | | | | MEDICAL | | | | | | CENTER - | | | | | | LABORATORY | | + +---------+ + + + | AST | 39 | 10 - 42 U/L | [facility] | | | | | | [facility] | | | | | | MEDICAL | | | | | | CENTER - | | | | | | LABORATORY | | + +---------+ + + + | ALT | 66 (H) | 6 - 45 U/L | [facility] | | | | | | [facility] | | | | | | MEDICAL | | | | | | CENTER - | | | | | | LABORATORY | | + +---------+ + + + | Alkaline | 71 | 40 - 110 U/L | [facility] | | | Phosphatase | | | [facility] | | | | | | MEDICAL | | | | | | CENTER - | | | | | | LABORATORY | | + +---------+ + + + | Globulin | 2.9 | 2.1 - 3.8 g/dL | [facility] | | | | | | [facility] | | | | | | MEDICAL | | | | | | CENTER - | | | | | | LABORATORY | | + +---------+ + + + | Albumin/[place] | 1.1 | 0.8 - 2.0 | [facility] | | | bulin Ratio | | | [facility] | | | | | | MEDICAL | | | | | | CENTER - | | | | | | LABORATORY | | + +---------+ + + + | Bilirubin, | 0.10 | 0.00 - 0.20 | [facility] | | | Direct | | mg/dl | [facility] | | | | | | MEDICAL | | | | | | CENTER - | | | | | | LABORATORY | | + +---------+ + + + + + | Specimen | + + | Blood | + + + + + + + | Performing | Address | City/State/Zipcode | Phone Number | | Organization | | | | + + + + + | [facility] | [address] | [place] | [phone] | | [facility] | | [address] | | | - LABORATORY | | | | + + + + + Procalcitonin (07/26/2017 1:40 PM PST) + + + + + + | Component | Value | Ref Range | Performed | Pathologist | | | | | At | Signature | + + + + + + | Procalciton | 0.45 | <=0.50 ng/mL | [facility] | | | in | | | [facility] | | | | | | MEDICAL | | | | | | CENTER - | | | | | | LABORATORY | | + + + + + + | Comment | Comment: < 0.50 | | [facility] | | | | ng/mL:Procalcitonin | | [facility] | | | | levels below 0.50 ng/mL | | MEDICAL | | | | on the first day of | | CENTER - | | | | admission represents a | | LABORATORY | | | | low risk for progression | | | | | | to severe sepsis and/or | | | | | | septic shock, however | | | | | | these do not exclude an | | | | | | infection, because | | | | | | localized infections | | | | | | (without systemic signs) | | | | | | may also be associated | | | | | | with such low levels. | | | | | | > 2.00 | | | | | | ng/mL:Procalcitonin | | | | | | levels above 2.00 ng/mL | | | | | | on the first day of | | | | | | admission represents a | | | | | | high risk for | | | | | | progression to severe | | | | | | sepsis and/or septic | | | | | | shock. If the | | | | | | procalcitonin | | | | | | measurement is performed | | | | | | shortly after the | | | | | | systemic infection | | | | | | process has started | | | | | | (usually less than 6 | | | | | | hours), these values may | | | | | | still be low. As | | | | | | various non-infectious | | | | | | conditions are known to | | | | | | induce procalcitonin as | | | | | | well, procalcitonin | | | | | | levels between 0.50 | | | | | | ng/mL and 2.00 ng/mL | | | | | | should be reviewed | | | | | | carefully to take into | | | | | | account the specific | | | | | | clinical background and | | | | | | condition(s) of the | | | | | | individual patient. | | | | + + + + + + + + | Specimen | + + | Blood | + + + + + + + | Performing | Address | City/State/Zipcode | Phone Number | | Organization | | | | + + + + + | [facility] | [address] | [place] | [phone] | | [facility] | | [address] | | | - LABORATORY | | | | + + + + + Troponin I (07/26/2017 1:40 PM PST) + + + + + + | Component | Value | Ref Range | Performed | Pathologist | | | | | At | Signature | + + + + + + | Troponin I | 0.07 (H)Comment: | <0.06 ng/mL | [facility] | [...] | | | | | | [employer] | | | | | [...] + + | Performing | Address | City/State/Unm Cancer Centercode | Phone Number | | Organization | | | | + + + + + | [facility] | [address] | [place], [place] | [phone] | | [facility] | | [address] | | | - LABORATORY | | | | + + + + + Protime INR (07/26/2017 1:40 PM PST) + + + + + + | Component | Value | Ref Range | Performed | Pathologist | | | | | At | Signature | + + + + + + | Prothrombin | 12.7 | 11.3 - 13.9 | [facility] | | | Time | | seconds | [facility] | | | | | | MEDICAL | | | | | | CENTER - | | | | | | LABORATORY | | + + + + + + | INR | 0.96Comment: Usual Oral | 0.90 - 1.10 | [...] [address] | [place] | [phone] | | [facility] | | [address] | | | - LABORATORY | | | | + + + + + Magnesium (07/26/2017 1:40 PM PST) + +-------+ + + + | Component | Value | Ref Range | Performed | Pathologist | | | | | At | Signature | + +-------+ + + + | Magnesium | 2.2 | 1.8 - 2.5 mg/dL | [facility] | | | | | | [facility] [...] + | [facility] | [address] | [place] | [phone] | | [facility] | | [address] | | | - LABORATORY | | | | + + + + + Basic Metabolic Panel (07/26/2017 1:40 PM PST) + + + + + + | Component | Value | Ref Range | Performed | Pathologist | | | | | At | Signature | + + + + + + | Na | 136 | 136 - 149 | [facility] | | | | | mmol/L | [facility] | | | | | | MEDICAL | | | | | | CENTER - | | | | | | LABORATORY | | + + + + + + | K | 3.0 (L) | 3.5 - 5.1 | [facility] [...] + | Anion Gap | 10 | 3 - 16 mmol/L | [facility] | | | | | | [facility] | | | | | | MEDICAL | | | | | | CENTER - | | | | | | LABORATORY | | + + + + + + | Glucose | 101 | 70 - 109 mg/dL | [facility] | | | | | | [facility] | | | | | | MEDICAL | | | | | | CENTER - | | | | | | LABORATORY | | + + + + + + | BUN | 52 (H) | 7 - 18 mg/dL | [facility] | | | | | | [facility] | | | | | | MEDICAL | | | | | | CENTER - | | | | | | LABORATORY | | + + + + + + | Creatinine | 2.83 (H) | 0.60 - 1.30 | [facility] | | | | | mg/dL | [facility] | | | | | | MEDICAL | | | | | | CENTER - | | | | | | LABORATORY | | + + + + + + | eGFR if not | 19 (L)Comment: | >=60 | [facility] | | | | GLOMERULAR FILTRATION | mL/min/1.73m2 | [facility] | | | SLOVENIAN | RATE,ESTIMATED | | MEDICAL | | | | mL/min/1.16v4Ueof than | | CENTER - | | [...] + | Calcium | 8.0 (L) | 8.3 - 10.5 | [facility] | | | | | mg/dL | [facility] | | | | | | MEDICAL | | | | | | CENTER - | | | | | | LABORATORY | | + + + + + + | BUN/Creatin | 18.4 | | [facility] | | | ine [...] + | [facility] | [address] | [place] | [phone] | | [facility] | | [address] | | | - LABORATORY | | | | + + + + + ECG 12 lead (07/26/2017 1:18 PM PST) + + + + + + | Component | Value | Ref Range | Performed | Pathologist | | | | | At | Signature | + + + + + + | VENTRICULAR | 91 | BPM | [facility] | | | RATE EKG | | | | | + + + + + + | ATRIAL RATE | 91 | BPM | [facility] | | + + + + + + | P-R | 142 | ms | [facility] | | | INTERVAL | | | | | + + + + + + | QRS | 102 | ms | [facility] | | | DURATION | | | | | + + + + + + | Q-T | 414 | ms | [facility] | | | INTERVAL | | | | | + + + + + + | Q-T | 509 | ms | [facility] | | | INTERVAL | | | | | | (CORRECTED) | | | | | + + + + + + | P WAVE AXIS | 52 | degrees | [facility] | | + + + + + + | QRS AXIS | 55 | degrees | [facility] | | + + + + + + | T AXIS | 87 | degrees | [facility] | | + + + + + + | INTERPRETAT | Normal sinus rhythmLeft | | [facility] | | | ION TEXT | ventricular hypertrophy | | | | | | with repolarization | | | | | | abnormalityCannot rule | | | | | | out Inferior infarct , | | | | | | age | | | | | | undeterminedProlonged | | | | | | QTAbnormal ECGWhen | | | | | | compared with ECG of | | | | | | 06-JUL-2017 | | | | | | 14:44,Nonspecific T wave | | | | | | abnormality, improved | | | | | | in Lateral | | | | | | leadsConfirmed by | | | | | | HAROON WHATLEY MD ([id number]) | | | | | | on 07/27/2017 6:54:35 AM | | | | + + [...] | | + +---------+ + + Culture, MRSA (07/26/2017 1:05 PM PST) + + + + + + | Component | Value | Ref Range | Performed | Pathologist | | | | | At | Signature | + + + + + + | Culture | Negative for MRSA by | | [facility] | | | | chromogenic agar method | | [facility] | | | | | | MEDICAL | | | | | | CENTER - | | | | | | LABORATORY | | + + + + + + + + | Specimen | + + | Respiratory - Both | | anterior nares (body | | structure) | + + + + + + + | Performing | Address | City/State/Zipcode | Phone Number | | Organization | | | | + + + + + | [facility] | [address] | [place] | [phone] | | [facility] | | [address] | | | - LABORATORY | | | | + + + + + LABS - EXTERNAL SCAN (07/26/2017 12:00 AM PST) + + + | Narrative | Performed At | + + + | Ordered by an | | | unspecified provider. | | + + + PATHOLOGY - EXTERNAL SCAN (07/09/2017 12:00 AM PST) + + + | Narrative | Performed At | + + + | Ordered by an | | | unspecified provider. | | + + + documented in this encounter Visit Diagnoses + + | Diagnosis | + + | Acute respiratory failure with hypoxia (HCC) - Primary Acute respiratory failure | + + | AUNG (acute kidney injury) (HCC) Acute kidney failure, unspecified | + + | Acute pulmonary edema (HCC) Acute edema of lung, unspecified | + + | Other autoimmune hemolytic anemias (HCC) | + + | HUS (hemolytic uremic syndrome) (HCC) Hemolytic-uremic syndrome | + + | Anemia secondary to renal failure Anemia in chronic kidney disease | + + documented in this encounter Administered Medications + +--------+---------+------+------+------+ | Medication Order | MAR | Action | Dose | Rate | Site | | | Action | Date | | | | + +--------+---------+------+------+------+ + +---+ | acetaminophen (TYLENOL) tablet | | | 325 mg 325 mg, Oral, EVERY 6 | | | HOURS PRN, Pain, Fever, Starting | | | Wed07/26/17 at 2200 | | + +---+ | | | + +---+ + +-------+ +-------+---+---+ | albuterol-ipratropium (DUONEB) | Given | 07/27/19 | 3 mLs | | | | 2.5-0.5 mg/3 mL nebulizer | | 18 10:34 | | | | | solution 3 mL 3 mL, | | PM PST | | | | | Nebulization, RT Q8H, First dose | | | | | | | on 07/26/17 at 1500 | | | | | | + +-------+ +-------+---+---+ +-------+ +-------+---+---+ | Given | 07/27/19 | 3 mLs | | | | | 18 3:31 | | | | | | PM PST | | | | +-------+ +-------+---+---+ | Given | 07/27/19 | 3 mLs | | | | | 18 9:49 | | | | | | AM PST | | | | +-------+ +-------+---+---+ + +---+ | | | + +---+ | albuterol-ipratropium (DUONEB) | | | 2.5-0.5 mg/3 mL nebulizer | | | solution 3 mL 3 mL, | | | Nebulization, RT EVERY 4 HOURS | | | PRN, Shortness of Breath, | | | Starting 07/28/17 at 1015 | | + +---+ | | | + +---+ + +-------+ +--------+---+---+ | aluminum & magnesium | Given | 07/27/19 | 30 mLs | | | | hydroxide-simethicone (MAALOX | | 18 11:09 | | | | | PLUS REGULAR STRENGTH) 200-200-20 | | AM PST | | | | | mg/5 mL suspension 30 mL 30 mL, | | | | | | | Oral, EVERY 4 HOURS PRN, | | | | | | | Indigestion, Starting 07/27/17 | | | | | | | at 1032, [place], | | | | | | + +-------+ +--------+---+---+ +---+---+ | | | +---+---+ + +-------+ +-------+---+---+ | carvedilol (COREG) tablet 25 mg | Given | 07/26/19 | 25 mg | | | | 25 mg, Oral, 2 TIMES DAILY WITH | | 18 4:25 | | | | | BREAKFAST & DINNER, First dose | | PM PST | | | | | on Wed07/26/17 at 1700, Hold for | | | | | | | SBP < 120 Hold for HR < 60, | | | | | | + +-------+ +-------+---+---+ +---+---+ | | | +---+---+ + +-------+ +-------+---+---+ | carvedilol (COREG) tablet 25 mg | Given | 07/30/19 | 25 mg | | | | 25 mg, Oral, 2 TIMES DAILY WITH | | 18 8:38 | | | | | BREAKFAST & DINNER, First dose | | AM PST | | | | | (after last modification) on Wed | | | | | | | 07/27/17 at 1700, Hold for SBP < | | | | | | | 120 Hold for HR < 60, | | | | | | + +-------+ +-------+---+---+ +-------+ +-------+---+---+ | Given | 07/29/19 | 25 mg | | | | | 18 5:28 | | | | | | PM PST | | | | +-------+ +-------+---+---+ | Given | 07/29/19 | 25 mg | | | | | 18 8:27 | | | | | | AM PST | | | | +-------+ +-------+---+---+ +---+---+ | | | +---+---+ + +-------+ + +---+---+ | carvedilol (COREG) tablet 3.125 | Given | 07/27/19 | 3.125 mg | | | | mg 3.125 mg, Oral, 2 TIMES | | 18 8:57 | | | | | DAILY WITH BREAKFAST & DINNER, | | AM PST | | | | | First dose (after last | | | | | | | modification) on Wed07/27/17 at | | | | | | | 0800, Hold for SBP < 120 Hold for | | | | | | | HR < 60, | | | | | | + +-------+ + +---+---+ +---+---+ | | | +---+---+ + +---------+ + +--------+---+ | desmopressin (DDAVP) 17.2 mcg | New Bag | 07/28/19 | 17.2 mcg | 108.6 | | | in sodium chloride 0.9% 50 mL | | 18 1:11 | | mL/hr | | | IVPB 17.2 mcg (rounded from | | PM PST | | | | | 17.25 mcg = 0.3 mcg/kg | | | | | | | 57.5 kg), Intravenous, | | | | | | | Administer over 30 Minutes, ONCE, | | | | | | | 07/28/17 at 0945, For 1 dose, | | | | | | | Keep in refrigerator., | | | | | | + +---------+ + +--------+---+ +---+---+ | | | +---+---+ + +-------+ +-------+---+---+ | dicyclomine (BENTYL) capsule 20 | Given | 07/27/19 | 20 mg | | | | mg 20 mg, Oral, 3 TIMES DAILY | | 18 10:05 | | | | | PRN, GI Upset, abdominal | | PM PST | | | | | discomfort, Starting 07/26/17 | | | | | | | at 2208 | | | | | | + +-------+ +-------+---+---+ +-------+ +-------+---+---+ | Given | 07/27/19 | 20 mg | | | | | 18 8:57 | | | | | | AM PST | | | | +-------+ +-------+---+---+ | Given | 07/26/19 | 20 mg | | | | | 18 11:57 | | | | | | PM PST | | | | +-------+ +-------+---+---+ +---+---+ | | | +---+---+ + +-------+ +---------+---+ + | epoetin ant (EPOGEN, PROCRIT) | Given | 07/29/19 | 10,000 | | Abdomen- | | 10,000 units/mL injection 10,000 | | 18 2:46 | Units | | LUQ | | Units 10,000 Units, | | PM PST | | | | | Subcutaneous, TWICE WEEKLY, First | | | | | | | dose on Wed07/29/17 at 1400, | | | | | | | Keep in refrigerator. Do not | | | | | | | shake., | | | | | | + +-------+ +---------+---+ + +---+---+ | | | +---+---+ + +---------+ +--------+ +---+ | ferric gluconate (FERRLECIT) | New Bag | 07/29/19 | 250 mg | 90 mL/hr | | | 250 mg in sodium chloride 0.9% | | 18 11:19 | | | | | 250 mL IVPB 250 mg, Intravenous, | | AM PST | | | | | Administer over 3 Hours, DAILY, | | | | | | | First dose on Wed07/28/17 at | | | | | | | 0945, For 3 days, Keep in | | | | | | | refrigerator., | | | | | | + +---------+ +--------+ +---+ +---------+ +--------+ +---+ | New Bag | 07/28/19 | 250 mg | 90 mL/hr | | | | 18 9:56 | | | | | | AM PST | | | | +---------+ +--------+ +---+ +---+---+ | | | +---+---+ + +-------+ +-------+---+---+ | furosemide (LASIX) injection 40 | Given | 07/28/19 | 40 mg | | | | mg 40 mg, Intravenous, DAILY, | | 18 8:31 | | | | | First dose on Wed07/27/17 at 1115 | | AM PST | | | | + +-------+ +-------+---+---+ +-------+ +-------+---+---+ | Given | 07/27/19 | 40 mg | | | | | 18 11:09 | | | | | | AM PST | | | | +-------+ +-------+---+---+ +---+---+ | | | +---+---+ + +-------+ +-------+---+---+ | furosemide (LASIX) tablet 40 mg | Given | 07/30/19 | 40 mg | | | | 40 mg, Oral, 2 TIMES DAILY 0800 | | 18 8:39 | | | | | & 1600, First dose (after last | | AM PST | | | | | modification) on Wed07/28/17 at | | | | | | | 1830 | | | | | | + +-------+ +-------+---+---+ +-------+ +-------+---+---+ | Given | 07/29/19 | 40 mg | | | | | 18 3:06 | | | | | | PM PST | | | | +-------+ +-------+---+---+ | Given | 07/29/19 | 40 mg | | | | | 18 8:27 | | | | | | AM PST | | | | +-------+ +-------+---+---+ +---+---+ | | | +---+---+ + +-------+ +--------+---+---+ | LORazepam (ATIVAN) injection | Given | 07/26/19 | 0.5 mg | | | | 0.5 mg 0.5 mg, Intravenous, | | 18 4:27 | | | | | EVERY 6 HOURS PRN, Anxiety, | | PM PST | | | | | Starting 07/26/17 at 1421 | | | | | | + +-------+ +--------+---+---+ +---+---+ | | | +---+---+ + +-------+ +--------+---+---+ | LORazepam (ATIVAN) injection | Given | 07/27/19 | 0.5 mg | | | | 0.5 mg 0.5 mg, Intravenous, | | 18 12:12 | | | | | NIGHTLY PRN, MAY REPEAT X 1, | | AM PST | | | | | Anxiety, monitor for hypoxia, | | | | | | | Starting 07/26/17 at 2200 | | | | | | + +-------+ +--------+---+---+ +---+---+ | | | +---+---+ + +-------+ +---------+---+---+ | LORazepam (ATIVAN) tablet 0.25 | Given | 07/29/19 | 0.25 mg | | | | mg 0.25 mg, Oral, EVERY 6 HOURS | | 18 8:39 | | | | | PRN, Anxiety, Starting Tue | | AM PST | | | | | 07/27/17 at 1454 | | | | | | + +-------+ +---------+---+---+ +-------+ +---------+---+---+ | Given | 07/28/19 | 0.25 mg | | | | | 18 7:46 | | | | | | PM PST | | | | +-------+ +---------+---+---+ | Given | 07/28/19 | 0.25 mg | | | | | 18 8:58 | | | | | | AM PST | | | | +-------+ +---------+---+---+ +---+---+ | | | +---+---+ + +-------+ +-------+---+---+ | NIFEdipine (PROCARDIA XL) ER | Given | 07/28/19 | 30 mg | | | | tablet 30 mg 30 mg, Oral, DAILY, | | 18 8:31 | | | | | First dose on Wed07/27/17 at | | AM PST | | | | | 1115, Do not cut or crush., | | | | | | + +-------+ +-------+---+---+ +-------+ +-------+---+---+ | Given | 07/27/19 | 30 mg | | | | | 18 11:10 | | | | | | AM PST | | | | +-------+ +-------+---+---+ +---+---+ | | | +---+---+ + +-------+ +-------+---+---+ | NIFEdipine (PROCARDIA XL) ER | Given | 07/29/19 | 30 mg | | | | tablet 30 mg 30 mg, Oral, ONCE, | | 18 5:06 | | | | | Lupis 07/29/17 at 0515, For 1 dose, | | AM PST | | | | | Do not cut or crush., | | | | | | + +-------+ +-------+---+---+ +---+---+ | | | +---+---+ + +-------+ +-------+---+---+ | NIFEdipine (PROCARDIA XL) ER | Given | 07/30/19 | 60 mg | | | | tablet 60 mg 60 mg, Oral, DAILY, | | 18 8:38 | | | | | First dose (after last | | AM PST | | | | | modification) on [facility] 07/29/17 at | | | | | | | 0900, Do not cut or crush., | | | | | | + +-------+ +-------+---+---+ +-------+ +-------+---+---+ | Given | 07/29/19 | 60 mg | | | | | 18 8:27 | | | | | | AM PST | | | | +-------+ +-------+---+---+ +---+---+ | | | +---+---+ + +-------+ +-------+---+---+ | NIFEdipine (PROCARDIA) capsule | Given | 07/26/19 | 20 mg | | | | 20 mg 20 mg, Oral, 3 TIMES | | 18 4:30 | | | | | DAILY, First dose on 07/26/17 | | PM PST | | | | | at 1530, Hold for SBP < 130, | | | | | | + +-------+ +-------+---+---+ +---+---+ | | | +---+---+ + +-------+ +------+---+---+ | ondansetron (ZOFRAN) injection | Given | 07/30/19 | 4 mg | | | | 4 mg 4 mg, Intravenous, EVERY 6 | | 18 6:59 | | | | | HOURS PRN, Nausea, Vomiting, | | AM PST | | | | | Starting 07/27/17 at 2205 | | | | | | + +-------+ +------+---+---+ +-------+ +------+---+---+ | Given | 07/29/19 | 4 mg | | | | | 18 8:16 | | | | | | AM PST | | | | +-------+ +------+---+---+ | Given | 07/28/19 | 4 mg | | | | | 18 9:57 | | | | | | PM PST | | | | +-------+ +------+---+---+ +---+---+ | | | +---+---+ + +-------+ +------+---+---+ | oxyCODONE (ROXICODONE) tablet | Given | 07/30/19 | 5 mg | | | | 5-10 mg 5-10 mg, Oral, EVERY 4 | | 18 1:06 | | | | | HOURS PRN, Pain, Starting Mon | | PM PST | | | | | 07/26/17 at 1421 | | | | | | + +-------+ +------+---+---+ +-------+ +-------+---+---+ | Given | 07/30/19 | 10 mg | | | | | 18 8:39 | | | | | | AM PST | | | | +-------+ +-------+---+---+ | Given | 07/29/19 | 10 mg | | | | | 18 10:40 | | | | | | PM PST | | | | +-------+ +-------+---+---+ +---+---+ | | | +---+---+ + +-------+ +-------+---+---+ | pantoprazole (PROTONIX) DR | Given | 07/30/19 | 40 mg | | | | tablet 40 mg 40 mg, Oral, DAILY | | 18 6:51 | | | | | BEFORE BREAKFAST, First dose on | | AM PST | | | | | 07/28/17 at 1830, Do not cut | | | | | | | or crush., | | | | | | + +-------+ +-------+---+---+ +-------+ +-------+---+---+ | Given | 07/29/19 | 40 mg | | | | | 18 6:41 | | | | | | AM PST | | | | +-------+ +-------+---+---+ | Given | 07/28/19 | 40 mg | | | | | 18 6:18 | | | | | | PM PST | | | | +-------+ +-------+---+---+ + +---+ | | | + +---+ | pharmacy consult - other | | | medications/reasons PHARMACY | | | CONSULT, Starting [facility] 07/29/17 at | | | 0640, Pharmacy to consult for | | | another reason? She is not | | | allergic to aldactone but please | | | not let it be ordered again this | | | admission unless Dr Ernandez | | | approves (her GFR is too low to | | | alllow use of aldactone) | | + +---+ | | | + +---+ + +-------+ +--------+---+---+ | potassium chloride (KLOR-CON) | Given | 07/30/19 | 10 mEq | | | | ER tablet 10 mEq 10 mEq, Oral, | | 18 8:38 | | | | | DAILY, First dose on [facility] 07/29/17 | | AM PST | | | | | at 1330, May take with food to | | | | | | | decrease GI upset., | | | | | | + +-------+ +--------+---+---+ +-------+ +--------+---+---+ | Given | 07/29/19 | 10 mEq | | | | | 18 3:05 | | | | | | PM PST | | | | +-------+ +--------+---+---+ + +---+ | | | + +---+ | potassium chloride (KLOR-CON) | | | ER tablet 10 mEq 10 mEq, Oral, | | | EVERY OTHER DAY, First dose | | | (after last modification) on Sat | | | 07/31/17 at 0900, May take with | | | food to decrease GI upset., | | + +---+ | | | + +---+ + +-------+ +--------+---+---+ | potassium chloride (KLOR-CON) | Given | 07/26/19 | 20 mEq | | | | packet 20 mEq 20 mEq, Oral, | | 18 4:25 | | | | | ONCE, Wed07/26/17 at 1530, For 1 | | PM PST | | | | | dose, For partial doses, | | | | | | | reconstitute as directed, then | | | | | | | administer the dose ordered., | | | | | | + +-------+ +--------+---+---+ +---+---+ | | | +---+---+ + +-------+ +-------+---+---+ | spironolactone (ALDACTONE) | Given | 07/28/19 | 50 mg | | | | tablet 50 mg 50 mg, Oral, DAILY, | | 18 8:31 | | | | | First dose on Wed07/27/17 at | | AM PST | | | | | 1115, Hazardous: Use appropriate | | | | | | | handling precautions., | | | | | | + +-------+ +-------+---+---+ +-------+ +-------+---+---+ | Given | 20 | 50 mg | | | | | 18 11:10 | | | | | | AM PST | | | | +-------+ +-------+---+---+ +---+---+ | | | +---+---+ documented in this encounter
--- OUTSIDE RECORDS SUMMARY | ~2019-05-10 | XMS | Encounter Summary ---
Demographics + + + | Address | [address] | | | [place] [address] | + + + | Home Phone [...] Author | [facility] | | | and Laloana | + + + | Organization | [facility] [...] + | Beverly Perez | ECON | [place] | | | | | [address] | | + + + + + Care Team Providers + +------+ + | Care Gang Supervisor Name | Role | Phone | [...] | | | | | disease) | Chappell, Rich | [address] | | | | | ([facility]) | [address] | [place], | | | | | | [place], [place] | [place] [address] | | | | | | [address] | Phone: | | | | | | Phone: | [phone] | | | | | | [phone] | Fax: | | | | | | Fax: | [phone] | | | | | | [phone] | | +--------+ + + + + + + + | Scheduling Instructions | + + | If unable to get a hold of patient, call Linda Roman RN, Nurse Senior Mobile Developer at | | [phone] on to schedule. | + + Encounter Details +--------+ + + + + | Date | Type | Department | Care Team | Description | +--------+ + + + + | 10/20/ | Orders Only | [facility] | Jhoana Barreto | ESRD (end stage | | 2018 | | NEPHROLOGY [address] | M, DO [address] | renal disease) ([facility]) | | | | [address] | [place], [address] | (Primary Dx) | | | | [place] | [place] | | | | | [id number] | [address] | | | | | [phone] | | | +--------+ + + + [...] | Referral | e | renal disease) ([facility]) | | | Referral | | | | | + + +--------+ + + documented as of this encounter Visit Diagnoses + + | Diagnosis | + + | ESRD (end stage renal disease) (HCC) - Primary End stage renal disease | + + documented in this encounter"
--- OUTSIDE RECORDS SUMMARY | ~2019-05-10 | XMS | Encounter Summary ---
Demographics + + + | Address | [address] | | | [place] [address] | + + + | Home Phone [...] + | Author | [facility] | | | and Laloana | + + + | Organization | [facility] | [...] + | Beverly Perez | ECON | [place] | | | | | [address] | | + + + + + Care Team Providers + +------+ + | Care Flow Match Sofa Cutter Name | Role | Phone | [...] | | | | | | | Pulmonary | | | | | | | edema | | | | | | | pulmonary | | | | | | | edema | | | +--------+--------+ + + + + Encounter Details +--------+ + + + + | Date | Type | Department | Care Team | Description | +--------+ + + + + | 07/18/ | Hospital | [facility] | Violetta Urbina | Acute pulmonary | | 2019 - | Encounter | [facility] | M, DO [address] | edema (HCC); | | | | [address] [place] | [address] | Hypertensive | | 07/21/ | | [place] [address] | [place] | urgency, malignant; | | 2019 | | [phone] | [address] | Acute respiratory | | | | | | failure with hypoxia | | | | | | (HCC); End stage | | | | | | renal disease (HCC); | | | | | | 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 | | | | | | renal disease | | | | | | ([facility]); Acute | | | | | | combined systolic | | | | | | and diastolic | | | | | | congestive heart | | | | | | failure ([facility]); | | | | | | Hypertension | | | | | | secondary to other | | | | | | renal disorders; CKD | | | | | | (chronic kidney | | | | | | disease), stage IV | | | | | | ([facility]) | +--------+ + + + + Social [...] + + + | Blood Pressure | 104/56 | 07/21/2018 8:06 AM | | | | | PST | | + + + + + | Pulse | 78 | 07/21/2018 8:06 AM | | | | | PST | | + + + + + | Temperature | 36.1 C (97 F) | 07/21/2018 8:06 AM | | | [...] + documented in this encounter Discharge Summaries Violetta UrbinaDO - 08/04/2018 5:49 PM PST [address] [id number] DISCHARGE SUMMARY VIOLETTA Kristie CARLITOS CURIEL Patient: AUREA PEREZ Admitting: VIOLETTA URBINA MR #: [id number] LOC: PT TYPE: Adm Date: 07/18/2018 : 1980 DATE OF ADMISSION: 07/18/2018. DATE OF DISCHARGE: 07/21/2018. DISCHARGE DIAGNOSES: 1. Recurrent acute pulmonary edema secondary to noncompliance with her dialysis schedule on end-stage renal disease - improved. 2. Hypertensive urgency - improved with ultrafiltration and buddhism of her medications. 3. End-stage renal disease secondary to hypertensive nephrosclerosis, + prior thrombotic th rombocytopenic purpura, now in remission, on outpatient dialysis. 4. Remote history of methamphetamine use - most recent urine drug screen is negative times 2. 5. Anemia secondary to chronic kidney disease. 6. Chronic kidney disease/mineral and bone disorder. 7. Medical noncompliance. PROCEDURES: 1.Hemodialysis with NxStage device. 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 She had a very similar admission to this around 07/08/2018, belia herzog was treated at [facility] in [place], [place]. Apparently, she did not go to her previous d ialysis scheduled treatment 48 hours ago and presented to the ER at [facility] , [place] with acute shortness of breath and was found to be hyperkalemic and in acute pulmonary edema. She was given potassium lowering maneuvers. Weather was very adverse, due to heavy snow, therefore , instead of air ambulance, she was sent by ground ambulance to [facility]. She was placed directly on dialysis with the NxStage device with UF 4 kg. Also, she was starte d on high-dose Lasix/metolazone and had some good urinary output. One of the basic problems has been that she has been intermittently homeless, and she has b een making poor choices. Her urine drug screen at [facility] as well as one done here we re Negative for any evidence of recreational drugs including methamphetamines. After lengthy discussion with the patient and care management, there was discussion with [facility] and they agreed to take her for housing there. The hope was that she could walk one block to the dialysis clinic here and come back for her hemodialysi s treatments Oootoqw-Saynahey-Cmmaabnn and not be relying on transportation. She does have [place] [employer]. The [facility] kindly agreed to provide 7 days of her generic medications until she c ositold make the trip back to the local pharmacy at [facility], as she is homeless and was with out any form of motor vehicle on the day of discharge. Care management was helpful with thi s. DISCHARGE MEDICATIONS: 1. Carvedilol 12.5 mg twice daily. 2. Furosemide 80 mg daily. 3. Lisinopril 10 mg daily. 4. vitamins 1 daily. 5. Renvela 800 mg before meals and at bedtime. Altogether, her weight had decreased from 49.5 kg, on admission to 43.5 kg. Followup chest x-ray was much improved. Her oxygenation improved from BiPAP with high-flow oxygen at near FiO2 100% to where she was having normal respirations , with a normal O2 sat. on room air after 36 hours. I had a lengthy discussion with Aurea that without a good control of her fluid intake a nd regular dialysis sessions, she could very easily sustained a CVA or have cardiovascular m ortality in the next 6-12 months. She verbally agrees to come to her maintenance dialysis t reatments here at the [facility] in [place]. There has been a waiting list for the [facility] in [place], [place] and a waiting list in [place], [place]. She understands that the next available facility would either be in [place], [place] or in [place], [place], which would a further commute for her. She verbally agrees to come back on a Ldpxgtx-Rwnjexbj-Juqmqcal from the [facility] to come for dialysis sess ions. She clearly understands that she should consume <1000 mL of fluid/day. DISCHARGE DIET: <1000 mL fluid, <60 mEq of K +, <1000 mg P04, high biological value protei n. VIOLETTA URBINA DO Dictated by VIOLETTA URBINA DO 08/04/2018 17:49:54 Transcribed on 08/04/2018 23:48:21 by job# [id number] Confirmation #: [id number] cc: [facility] documented in thi s encounter Discharge Instructions Instructions Violetta Urbina DO - 07/21/20181. Your New Tx time at [facility] are [facility] [place], is at 6:55 AM, on . -Sat. 2. The Clinic is at [address], [address], [place], (the 1st floor of the [facility], next to [address]). You can't miss it. 3. Call Dr. Urbina's Office , , if you have questions. 4. We will request the Pharmacy provide 1 week of your most essential BP meds, until you can gain access to your Insurance Cards for a local Pharmacy. 5. The [facility] will work with you further on mcc planning for Rehab. for your life goals. documented in this encounter Medications at Time [...] + + +---------+ + + | B Cmtiibr-N-Bbjbc | Take 1 Tab by mouth. | | 0 | 05/11/20 | | | Acid (RENAL-KIT) | | [...] (COREG) | Take 1 tablet by | 14 | 3 | 07/21/19 | | | 12.5 mg tablet | mouth 2 times daily | tablet | | 19 | 9 | | | (with breakfast & | | | | | | | dinner). | | | | | + + + +---------+ + + | furosemide (LASIX) | Take 1 tablet by | 14 | 3 | 07/21/19 | | | 80 mg | mouth 2 times daily. | tablet | | 19 | 9 | | tabletIndications: | | | | | | | CKD (chronic kidney | | | | | | | disease), stage IV | | | | | | | (HCC) | | | | | | + + + +---------+ + + | lisinopril | Take 1 tablet by | 7 | 3 | 07/21/19 | | | (PRINIVIL, ZESTRIL) | mouth Daily. | tablet | | 19 | 9 | | 10 mg tablet | | | | | | + + + +---------+ + + | sevelamer | Take 1 tablet by | 28 | 3 | 07/21/19 | | | carbonate (RENVELA) | mouth 4 times daily | tablet | | 19 | 9 | | 800 mg tablet | (before meals and | | | | | | | nightly). | | | | | + + + +---------+ + + documented as of this encounter Progress Notes John De La O RN - 07/21/2018 3:03 PM PSTPt denies pain at this time. Denies SOB. Has b een complaint with fluid restrictions at this time. Piperapartum from pharmacy gave to pt an d explained. Pt to go to [facility] after discharge. Pt discharge instructions seema hua and explained. Pt discharged at 1500.Electronically signed by John De La O RN at 2018 3:06 PM Violetta Ann DO - 07/20/2018 5:51 PM PSTNEPHROLOGY ATTENDING Ayesha was seen at 1230, adn later on HD with QB 350. She is very lucid and cooperative . 2nd UDS here is Negative for methamphetamines. She is agreeable to going to the [facility] if they will accept her? BP 123/63 | Pulse 87 | Temp 36.6 C (97.9 F) (Oral) | Resp 14 | Ht 1.676 m (5' 6") | Wt 43.9 kg (96 lb 12.5 oz) | SpO2 100% | ? No | BMI 15.62 kg/m PE: unremarkable, no edema or rales. Plan 1. DC Tele. 2. HD x 5 hour, UF 1.5 kg, 4K+ bath. 3. Will decrease her lasix. 4. She is ambulating well. 5. Will work on DC planning. [facility] ioletta Urbina DO - 07/19/2018 6:56 PM PST . [facility] [address] [place] [address] PROGRESS NOTE Pt. Name/Age/: Aurea Perez 38 y.o. 1980 Med. Record Number: [id number] Date of admission: 07/18/2018 NEPHROLOGY HPI - Pt seen at 0830. Her dyspnea are much better. She has a mild VALLEJO, but better vs. yes terday. No photophobia or neck pain. CXR shows marked resolution of her bilateral , IS edema. She is open to looking into a [facility] group home her in [place] to be closer to HD. : BP 108/58 | Pulse 75 | Temp 35.7 C (96.3 F) (Oral) | Resp 12 | Ht 1.676 m (5' 6") | Wt 48.6 kg (107 lb 2.3 oz) | SpO2 98% | ? No | BMI 17.29 kg/m Tmax 37.2 (Wt. dec. 0.9 kg) Intake/Output Summary (Last 24 hours) at 07/19/18 1856 Last data filed at 07/19/18 1800 Gross per 24 hour Intake 1992 ml Output 1000 ml Net 992 ml Heart: Regular rate and rhythm with no S3, S4, murmur or rub. Lungs: CTA bilaterally. Abdomen: Soft, obese, nontender, normoactive bowel sounds. Extremities: no edema, clubbing, or cyanosis, LAB: Recent Labs 07/19/18 0411 NA 133* K 4.3 CL 99 CO2 23* BUN 42* CREA 3.51* GFRNONAA 14* GLU 140* CALCIUM 8.1* PHOS 3.4 Recent Labs 07/19/18 0411 WBC 12.9* HGB 9.7* HCT 29.5* PLT 212 MCV 88.3 IMPRESSION 1. Acute pulmonary edema-- better after UF,and some diuresis. 2. Hypertensive Urgency-- back on PO meds. 3. ESRD 2 to hypertensive nephrosclerosis + prior TTP, (now in remission)-- she cold jania efit from a Living Environment that is closer to an HD Clinic. 4. H/O methamphetamine use-- her 2nd UDS here is Negative. She does appear to be in abstin ence?? Perhaps the Rx truancy could be due an unstable home situation? 5. Anemia to CKD-- will resume some EPO. 6. CKD/MBD-- will resume Renvela. 7. Headache-- suspect 2 to earlier marked increased BP, and the IV NTG. PLAN 1. Will work with Care Management on a different home Environment. 2. Cont. PO meds. Will change to a lower dose of lisinopril , as her BP is rapidly correct ing. 3. Ambulate, DC polly, work on DC planning. 4. Doubt there is a point to DC until Home Environment can be constructed, as she is not t hriving in previous setting? 5. X-matty to floor on tele. Try Ultracet 50/325 mg, Q12H, prn for Headache. [facility] Héctor Kerns MD - 07/18/2018 12:03 PM PST [facility] HOSPITALIST BRIEF NOTE Patient: Aurea Perez : 1980: Age: 38 y.o. MedRec: [id number] Admission date: 07/18/2018 Hospital day # : 0 Physician author: Héctor Ernandez MD Today: 07/18/2018 Patient seen briefly (requirement to see within approx one hour, her admitting Doc will arr anabelle later) Came in transfer from [facility] with wet lungs needing emergent HD as she had missed her Wednesday HD, last used Meth about a week ago, ETOH last NOC but not daily. 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 Héctor Ernandez MD 07/18/2018 12:03 [facility] Dot phrase reference: VSHOSP (VS in table, last 24 hours) MEYLAB (various labs to pull in) DT (date and time) LABRCNTIP[K:3,Na:3 (last 3 sets of labs using potassium and sodium as examples) HGB HCT PLT INR GLU POCGLU Na K BUN CREA, CALCIUM TROPONINI BNP DIGOXIN DDIMERQUANT Portions of this chart may have been created with [employer] voice recognition software. Occasi onal wrong-word or sound-alike substitutions may have occurred due to the inherent guerrero itations of voice recognition software. Please read the chart carefully and recognize, using context, where these substitutions have occurred documented in this en counter Plan of Treatment Not on filedocumented as of this encounter Procedures + +--------+ + + + | Procedure Name | Priori | Date/Time | Associated Diagnosis | Comments | | | ty | | | | + +--------+ + + + | HEPATITIS B CORE AB, | Routin | 07/21/2018 | | Results for this | | IGM (NON-ORD) | e | 7:19 AM | | procedure are in the | | | | PST | | results section. | + +--------+ + + + | HEPATITIS A, B, C | Routin | 07/21/2018 | | Results for this | | PANEL, REFLEX | e | 7:19 AM | | procedure are in the | | | | PST | | results section. | + +--------+ + + + | EXTRA LAVENDER TOP | Routin | 07/21/2018 | | Results for this | | TUBE | e | 7:19 AM | | procedure are in the | | | | PST | | results section. | + +--------+ + + + | EXTRA GREEN TOP TUBE | Routin | 07/21/2018 | | Results for this | | | e | 7:19 AM | | procedure are in the | | | | PST | | results section. | + +--------+ + + + | EXTRA LAVENDER TOP | Routin | 07/20/2018 | | Results for this | | TUBE | e | 4:18 AM | | procedure are in the | | | | PST | | results section. | + +--------+ + + + | RENAL FUNCTION PANEL | Routin | 07/20/2018 | | Results for this | | | e | 4:13 AM | | procedure are in the | | | | PST | | results section. | + +--------+ + + + | DRUGS OF ABUSE, | Routin | 07/19/2018 | | Results for this | | SCREEN, URINE | e | 10:32 AM | | procedure are in the | | | | PST | | results section. | + +--------+ + + + | XR CHEST 2 VIEWS | Routin | 07/19/2018 | | Results for this | | | e | 10:19 AM | | procedure are in the | | | | PST | | results section. | + +--------+ + + + | CBC NO DIFFERENTIAL | Routin | 07/19/2018 | | Results for this | | | e | 4:11 AM | | procedure are in the | | | | PST | | results section. | + +--------+ + + + | RENAL FUNCTION PANEL | Routin | 07/19/2018 | | Results for this | | | e | 4:11 AM | | procedure are in the | | | | PST | | results section. | + +--------+ + + + | TROPONIN I | Routin | 07/18/2018 | | Results for this | | | e | 4:37 PM | | procedure are in the | | | | PST | | results section. | + +--------+ + + + | JULIO, WES | Routin | 07/18/2018 | | Results for this | | | e | 2:07 PM | | procedure are in the | | | | PST | | results section. | + +--------+ + + + | TROPONIN I | Routin | 07/18/2018 | | Results for this | | | e | 11:30 AM | | procedure are in the | | | | PST | | results section. | + +--------+ + + + | ECG 12 LEAD | Routin | 07/18/2018 | | Results for this | | | e | 11:16 AM | | procedure are in the | | | | PST | | results section. | + +--------+ + + + | IMAGING REPORT - | | 07/18/2018 | | Results for this | | EXTERNAL SCAN | | 12:00 AM | | procedure are in the | | | | PST | | results section. | + +--------+ + + + | LABS - EXTERNAL SCAN | | 07/18/2018 | | Results for this | | | | 12:00 AM | | procedure are in the | | | | PST | | results section. | + +--------+ + + + documented in this encounter Results HEPATITIS B CORE AB, IGM (07/21/2018 7:19 AM PST) + + + + + + | Component | Value | Ref Range | Performed | Pathologist | | | | | At | Signature | + + + + + + | HEP B Core | Negative | Negative | REFERENCE | | | IGM | | | LAB [facility] | | | Antibody | | | - [facility] | | + + + + + + + + | Specimen | + + | Blood | + + + + + | Narrative | Performed At | + + + | Performed at: 01 - [facility] [place] [address], | REFERENCE LAB | | [place], [place] [id number] Split Leather Mosser: Jonah Parekh MD, Phone: | [facility] | | [phone] | | + + + + + + + + | Performing | Address | City/State/Zipcode | Phone Number | | Organization | | | | + + + + + | REFERENCE LAB | [address] | [place] [address] | [phone] | | [facility] | [address] | | | + + + + + Extra Lavender Top Tube (07/21/2018 7:19 AM PST) + +-------+ + + + | Component | Value | Ref Range | Performed | Pathologist | | | | | At | Signature | + +-------+ + + + | Extra | Done | | [facility] | | | Lavender | | | [facility] | | | Top Tube | | [...] [address] | [place] | [phone] | | [facility] | | [address] | | | - LABORATORY | | | | + + + + + Extra Green Top Tube (07/21/2018 7:19 AM PST) + +-------+ + + + [...] [address] | [place] | [phone] | | [facility] | | [address] | | | - LABORATORY | | | | + + + + + Hepatitis A, B, C Panel, Reflex (07/21/2018 7:19 AM PST) + + + + + + | Component | Value | Ref Range | Performed | Pathologist | | | | | At | Signature | + + + + + + | HEP A TOTAL | Negative | Negative | REFERENCE | | | AB | | | LAB [facility] | | | | | | - [facility] | | + + + + + + | Hepatitis B | Negative | Negative | REFERENCE | | | Surface Ag | | | LAB [facility] | | | | | | - [facility] | | + + + + + + | Hepatitis B | Positive (A) | Negative | REFERENCE | | | Core Ab, | | | LAB [facility] | | | Total | | | - [facility]KR | | + + + + + + | Hepatitis C | <0.1Comment: | 0.0 - 0.9 s/co | REFERENCE | | | Ab | | ratio | LAB [facility] | | | | | | - [facility] | | | | Negative: < 0.8 | | | | | | | | | | | | | | | | | | Indeterminate: 0.8 - 0.9 | | | | | | | | | | | | | | | | | | Positive: > 0.9 | | | | | | The CDC recommends that | | | | | | a positive HCV antibody | | | | | | result be followed up | | | | | | with a HCV Nucleic Acid | | | | | | Amplification test | | | | | | ([id number]). | | | | + + + + + + + + | Specimen | + + | Blood | + + + + + | Narrative | Performed At | + + + | Performed at: 01 - [facility] [address], | REFERENCE LAB | | [place], [place] [id number] Split Leather Mosser: Jonah Parekh MD, Phone: | [facility] | | [phone] | | + + + + + + + + | Performing | Address | City/State/Zipcode | Phone Number | | Organization | | | | + + + + + | REFERENCE LAB | [address] | [place] [address] | [phone] | | [facility] | [address] | | | + + + + + Extra Lavender Top Tube (07/20/2018 4:18 AM PST) + +-------+ + + + [...] [address] | [place] | [phone] | | [facility] | | [address] | | | - LABORATORY | | | | + + + + + Renal Function Panel (07/20/2018 4:13 AM PST) + + + + + + | Component | Value | Ref Range | Performed | Pathologist | | | | | At | Signature | + + + + + + | Na | 133 (L) | 136 - 149 | [facility] | | | | | mmol/L | [facility] | | | | | | MEDICAL | | | | | | CENTER - | | | | | | LABORATORY | | + + + + + + | K | 4.3 | 3.5 - 5.1 | [facility] | [...] + + + + | CO2 | 21 (L) | 24 - 31 mmol/L | [facility] | | | | | | [facility] | | | | | | MEDICAL | | | | | | CENTER - | | | | | | LABORATORY | | + + + + + + | Anion Gap | 14 | 3 - 16 mmol/L | [facility] | | | | | | [facility] | | | | | | MEDICAL | | | | | | CENTER - | | | | | | LABORATORY | | + + + + + + | Glucose | 99 | 70 - 109 mg/dL | [facility] | | | | | | . [facility] | | | | | | MEDICAL | | | | | | CENTER - | | | | | | LABORATORY | | + + + + + + | BUN | 60 (H) | 7 - 18 mg/dL | [facility] | | | | | | [facility] | | | | | | MEDICAL | | | | | | CENTER - | | | | | | LABORATORY | | + + + + + + | Creatinine | 4.86 (H) | 0.60 - 1.30 | [facility] | | | | | mg/dL | [facility] | | | | | | MEDICAL | | | | | | CENTER - | | | | | | LABORATORY | | + + + + + + | eGFR if not | 10 (L) | >=60 | [facility] | | | | | mL/min/1.73m2 | [facility] | | | [facility] | | | MEDICAL | | | [...] + | Albumin | 2.9 (L) | 3.2 - 5.0 g/dL | [facility] | | | | | | [facility] | | | | | | MEDICAL | | | | | | CENTER - | | | | | | LABORATORY | | + + + + + + | Phosphorus | 3.7 | 2.5 - 4.6 mg/dL | [facility] | | | | | | [facility] | | | | | | MEDICAL | | | | | | CENTER - | | | | | | LABORATORY | | + + + + + + | BUN/Creatin | 12.3 | | [facility] | | | ine [...] + + | [facility] | [address] | [place] | [phone] | | [facility] | | [address] | | | - LABORATORY | | | | + + + + + Drugs of Abuse, Screen, Urine (07/19/2018 10:32 AM PST) + + + + + [...] ST. | [address] | [place] | [phone] | | [facility] | | [address] | | | - LABORATORY | | | | + + + + + XR Chest 2 Vws (07/19/2018 10:19 AM PST) + + | Specimen | + + | | + + + + + | Narrative | Performed At | + + + | XR CHEST 2 VIEWS 07/19/2018 10:19 AM HISTORY: 2 view CXR in XR | [facility] | | Dept in AM, for F/U of CHF. COMPARISON: Multiple priors. | | | Findings: Heart size is within normal limits. Aorta is normal. | | | Mediastinum demonstrates no acute findings. Central pulmonary | | | vasculature is normal. Small bilateral pleural effusions are present. | | | Overall appearance is improved compared to 07/08/2018. There are no | | | acute osseous abnormalities. IMPRESSION - Improvement in CHF | | | findings with small bilateral pleural effusions remaining. | | | Dictated and Signed by: Gaurav Reese MD Electronically signed: | | | 07/19/2018 11:03 AM | | + + + + + | Procedure Note | + + | Prudencio, Rad Results In - 07/19/2018 11:06 AM PST XR CHEST 2 VIEWS 07/19/2018 10:19 AM | | | | HISTORY: 2 view CXR in XR Dept in AM, for F/U of CHF. | | | | COMPARISON: Multiple priors. | | | | Findings: | | Heart size is within normal limits. Aorta is normal. Mediastinum demonstrates no | | acute findings. Central pulmonary vasculature is normal. Small bilateral pleural | | effusions are present. Overall appearance is improved compared to 07/08/2018. | | There are no acute osseous abnormalities. | | | | IMPRESSION - | | Improvement in CHF findings with small bilateral pleural effusions remaining. | | | | Dictated and Signed by: Gaurav Reese MD | | Electronically signed: 07/19/2018 11:03 AM | + + + +---------+ + + | Performing | Address | City/State/Zipcode | Phone Number | | Organization | | | | + +---------+ + + | [facility] | | | | + +---------+ + + Renal Function Panel (07/19/2018 4:11 AM PST) + + + + + [...] + + + + | K | 4.3 | 3.5 - 5.1 | [facility] | [...] (L) | 24 - 31 mmol/L | [facility] | | | | | | [facility] | | | | | | MEDICAL | | | | | | CENTER - | | | | | | LABORATORY | | + + + + + + | Anion Gap | 11 | 3 - 16 mmol/L | [facility] | | | | | | [facility] | | | | | | MEDICAL | | | | | | CENTER - | | | | | | LABORATORY | | + + + + + + | Glucose | 140 (H) | 70 - 109 mg/dL | [facility] | | | | [...] + + + + | Creatinine | 3.51 (H) | 0.60 - 1.30 | [facility] | | | | | mg/dL | [facility] | | | | | | MEDICAL | | | | | | CENTER - | | | | | | LABORATORY | | + + + + + + | eGFR if not | 14 (L) | >=60 | [facility] | | | | | mL/min/1.73m2 | [facility] | | | [facility] | | | MEDICAL | | | [...] + + + + | Albumin | 3.0 (L) | 3.2 - 5.0 g/dL | [facility] | | | | | | [facility] | | | | | | MEDICAL | | | | | | CENTER - | | | | | | LABORATORY | | + + + + + + | Phosphorus | 3.4 | 2.5 - 4.6 mg/dL | [facility] | | | | | | [facility] | | | | | | MEDICAL | | | | | | CENTER - | | | | | | LABORATORY | | + + + + + + | BUN/Creatin | 12.0 | | [facility] | | | ine [...] + | [facility] | [address] | [place] | [phone] | | [facility] | | [address] | | | - LABORATORY | | | | + + + + + CBC no Differential (07/19/2018 4:11 AM PST) + + + + + + | Component | Value | Ref Range | Performed | Pathologist | | | | | At | Signature | + + + + + + | WBC | 12.9 (H) | 4.0 - 11.0 K/uL | [facility] | | | | | | [facility] | | | | | | [facility] | | | | | | [facility] - | | | | | | LABORATORY | | + + + + + + | RBC | 3.34 (L) | 3.70 - 5.20 | [facility] | | | | | M/uL | [facility] | | | [facility] | | [facility] | | | | | | [facility] - | | | | | | LABORATORY | | + + + + + + | Hemoglobin | 9.7 (L) | 11.5 - 16.0 | [facility] | | | | | g/dL | [facility] | | | | | | [facility] | | | | | | CENTER - | | | | | | LABORATORY | | + + + + + + | Hematocrit | 29.5 (L) | 34.0 - 47.0 % | [facility] | | | | | | [facility] | | | | | | [facility] | | | | | | C[facility] - | | | | | | LABORATORY | | + + + + + + | MCV | 88.3 | 83.0 - 101.0 fL | [facility] | | | | | | [facility] | | | | | | [facility] | | | | | | C[facility] - | | | | | | LABORATORY | | + + + + + + | MCH | 29.0 | 28.0 - 35.0 pg | [facility] [...] + + + + | RDW-CV | 14.8 | <15.0 % | [facility] | | | | | | [facility] | | | | | | [facility] | | | | | | CENTER - | | | | | | LABORATORY | | + + + + + + | RDW-SD | 47.2 (H) | 35.1 - 46.3 fL | [facility] | | | | | | [facility] | | | | | | [facility] | | | | | | CENTER - | | | | | | LABORATORY | | + + + + + + | Platelet | 212 | 140 - 440 K/uL | [facility] | | | Count | | | [facility] | | | | | | [facility] | | | | | | CENTER - | | | | | | LABORATORY | | + + + + + + | MPV | 10.9 | 6.5 - 12.4 fL | [facility] | | | | | | [facility] | [facility] | | | | | | [facility] - | | | | | | LABORATORY | | + + + + + + | Immature | 4.8Comment: Low PLT + | 0.9 - 11.2 % | [facility] | | | Platelet | Low IPF are consistent | | [facility] | | | Fraction | with a production | | MEDICAL | | | | disorder. Low PLT + High | | CENTER - | | | | IPF are consistent with | | LABORATORY | | | | destruction mechanism. | | | | + + + + + + | % nRBC | 0 | 0 - 2 per 100 | [facility] | | | | | WBC's | [facility] | | | | | | [facility]ICAL | | | | | | CENTER - | | | | | | LABORATORY | | + + + + + + | Absolute | 0.00 | 0.00 - 0.01 | [facility] | | | nRBC | | K/uL | [facility] | [...] + | [facility] | [address] | [place] | [phone] | | [facility] | | [address] | | | - LABORATORY | | | | + + + + + Troponin I (07/18/2018 4:37 PM PST) + + + + + + | Component | Value | Ref Range | Performed | Pathologist | | | | | At | Signature | + + + + + + | Troponin I | 0.04Comment: Reference | <0.06 ng/mL | [facility] | | | | Ranges:0.00-0.06 = | | [facility] | | | | NORMAL>0.06 = | | MEDICAL | | | | SUSPICIOUS FOR | | CENTER - | | | | MYOCARDIAL DAMAGE NOTE: | | LABORATORY | | | | Values greater than 0.50 | | | | | | ng/mL have been shown | | | | | | to be strongly | | | | | | associated with acute | | | | | | myocardial infarction. | | | | | | [employer] | | | | | [...] [address] | [place] | [phone] | | [facility] | | [address] | | | - LABORATORY | | | | + + + + + Culture, MRSA (07/18/2018 2:07 PM PST) + + + + + + | Component | Value | Ref Range | Performed | Pathologist | | | | | At | Signature | + + + + + + | Culture | Negative for MRSA by | | [facility] | | | | chromogenic agar method | | [facility] | | | | | | MEDICAL | | | | | | CENTER - | | | | | | LABORATORY | | + + + + + + + + | Specimen | + + | Tissue - Both | | anterior nares (body | | structure) | + + + + + + + | Performing | Address | City/State/Zipcode | Phone Number | | Organization | | | | + + + + + | [facility] | [address] | [place] | [phone] | | [facility] | | [address] | | | - LABORATORY | | | | + + + + + Troponin I (07/18/2018 11:30 AM PST) + + + + + + | Component | Value | Ref Range | Performed | Pathologist | | | | | At | Signature | + + + + + + | Troponin I | 0.04Comment: Reference | <0.06 ng/mL | [facility] | | | | Ranges:0.00-0.06 = | | [facility] | | | | NORMAL>0.06 = | | MEDICAL | | | | SUSPICIOUS FOR | | CENTER - | | | | MYOCARDIAL DAMAGE NOTE: | | LABORATORY | | | | Values greater than 0.50 | | | | | | ng/mL have been shown | | | | | | to be strongly | | | | | | associated with acute | | | | | | myocardial infarction. | | | | | | [employer] | | | | | [...] [address] | [place] | [phone] | | [facility] | | [address] | | | - LABORATORY | | | | + + + + + ECG 12 lead (07/18/2018 11:16 AM PST) + + + + + + | Component | Value | Ref Range | Performed | Pathologist | | | | | At | Signature | + + + + + + | VENTRICULAR | 83 | BPM | [facility] | | | RATE EKG | | | | | + + + + + + | ATRIAL RATE | 83 | BPM | [facility] | | + + + + + + | P-R | 130 | ms | [facility] | | | INTERVAL | | | | | + + + + + + | QRS | 92 | ms | [facility] | | | DURATION | | | | | + + + + + + | Q-T | 414 | ms | [facility] | | | INTERVAL | | | | | + + + + + + | Q-T | 486 | ms | [facility] | | | INTERVAL | | | | | | (CORRECTED) | | | | | + + + + + + | P WAVE AXIS | 60 | degrees | [facility] | | + + + + + + | QRS AXIS | 48 | degrees | [facility] | | + + + + + + | T AXIS | 76 | degrees | [facility] | | + + + + + + | INTERPRETAT | Normal sinus rhythm with | | [facility] | | | ION TEXT | sinus | | | | | | arrhythmiaPossible Left | | | | | | atrial enlargementLong | | | | | | QTcAbnormal ECGWhen | | | | | | compared with ECG of | | | | | | 07/26/2017T wave | | | | | | inversion in lead V2 is | | | | | | now presentCriteria for | | | | | | LVH is no longer present | | | | | | Confirmed by PHYLICIA | | | | | | HAROON CARUSO ([id number]) on | | | | | | 07/19/2018 8:07:24 PM | | | | + + + [...] | | | + +---------+ + + LABS - EXTERNAL SCAN (07/18/2018 12:00 AM PST) + + + | Narrative | Performed At | + + + | Ordered by an | | | unspecified provider. | | + + + IMAGING REPORT - EXTERNAL SCAN (07/18/2018 12:00 AM PST) + + + | Narrative | Performed At | + + + | Ordered by an | | | unspecified provider. | | + + + documented in this encounter Visit Diagnoses + + | Diagnosis | + + | Acute pulmonary edema (HCC) Acute edema of lung, unspecified | + + | Hypertensive urgency, malignant Essential hypertension, malignant | + + | Acute respiratory failure with hypoxia (HCC) Acute respiratory failure | + + | End stage renal disease (HCC) End stage renal disease | + + | 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 renal disease (HCC) Anemia in chronic kidney disease | + + | Acute combined systolic and diastolic congestive heart failure (HCC) Acute combined | | systolic and diastolic heart failure | + + | Hypertension secondary to other renal disorders | + + | CKD (chronic kidney [...] 6 | | | HOURS PRN, Pain, Starting Tue | | | 07/19/18 at 0911 | | + +---+ | | | + +---+ | albumin 25% IVPB 12.5 g 12.5 | | | g, Intravenous, Administer over | | | 30 Minutes, PRN, PRN | | | hypotension., Starting Mon | | | 07/18/18 at 1058, For BP < 90 mmHg | | | on NxStage., Dialysis | | + +---+ | | | + +---+ + +-------+ +--------+---+---+ | albuterol 2.5 mg/3 mL nebulizer | Given | 07/19/19 | 2.5 mg | | | | solution 2.5 mg 2.5 mg, | | 19 8:29 | | | | | Nebulization, RT Q6H, First dose | | AM PST | | | | | on 07/18/18 at 1115, RT will | | | | | | | administer., | | | | | | + +-------+ +--------+---+---+ +-------+ +--------+---+---+ | Given | 07/19/19 | 2.5 mg | | | | | 19 3:32 | | | | | | AM PST | | | | +-------+ +--------+---+---+ | Given | 07/18/19 | 2.5 mg | | | | | 19 9:16 | | | | | | PM PST | | | | +-------+ +--------+---+---+ +---+---+ | | | +---+---+ + +-------+ +---------+---+---+ | calcitriol (ROCALTROL) capsule | Given | 07/21/19 | 0.5 mcg | | | | 0.5 mcg 0.5 mcg, Oral, DAILY, | | 19 8:23 | | | | | First dose on Wed07/20/18 at 0900 | | AM PST | | | | + +-------+ +---------+---+---+ +-------+ +---------+---+---+ | Given | 07/20/19 | 0.5 mcg | | | | | 19 8:09 | | | | | | AM PST | | | | +-------+ +---------+---+---+ +---+---+ | | | +---+---+ + +-------+ +---------+---+---+ | carvedilol (COREG) tablet 12.5 | Given | 07/21/19 | 12.5 mg | | | | mg 12.5 mg, Oral, 2 TIMES DAILY | | 19 8:24 | | | | | WITH BREAKFAST & DINNER, First | | AM PST | | | | | dose (after last reorder) on Mon | | | | | | | 07/18/18 at 1700 | | | | | | + +-------+ +---------+---+---+ +-------+ +---------+---+---+ | Given | 07/20/19 | 12.5 mg | | | | | 19 8:11 | | | | | | AM PST | | | | +-------+ +---------+---+---+ | Given | 07/19/19 | 12.5 mg | | | | | 19 5:02 | | | | | | PM PST | | | | +-------+ +---------+---+---+ +---+---+ | | | +---+---+ + +---------+ +---------+---+ + | cloNIDine (CATAPRES) 0.2 mg/24 | Patch | 07/18/19 | 1 patch | | Shoulder | | hr 1 patch 1 patch, Transdermal, | Applied | 19 2:27 | | | -Right | | WEEKLY, First dose on Mon | | PM PST | | | | | 07/18/18 at 1345 | | | | | | + +---------+ +---------+---+ + + +---+ | | | + +---+ | diphenhydrAMINE (BENADRYL) | | | tablet 25 mg 25 mg, Oral, | | | NIGHTLY PRN, Insomnia, x one | | | dose, Starting 07/20/18 at | | | 2249 | | + +---+ | | | + +---+ + +-------+ +-------+---+ + | enoxaparin (LOVENOX) 30 mg/0.3 | Given | 07/19/19 | 30 mg | | Abdomen- | | mL injection 30 mg 30 mg, | | 19 5:09 | | | LLQ | | Subcutaneous, EVERY 24 HOURS | | PM PST | | | | | (Daily), First dose (after last | | | | | | | reorder) on Wed07/18/18 at 1600 | | | | | | + +-------+ +-------+---+ + +---+---+ | | | +---+---+ + +-------+ +--------+---+ + | epoetin ant (EPOGEN, PROCRIT) | Given | 07/20/19 | 9,000 | | Abdomen- | | 20,000 units/mL injection 9,000 | | 19 9:31 | Units | | RLQ | | Units 9,000 Units, Subcutaneous, | | AM PST | | | | | THREE TIMES WEEKLY (Once per day | | | | | | | on Wed), First dose on | | | | | | | Wed07/20/18 at 0900, Keep in | | | | | | | refrigerator. Do not shake., | | | | | | | ESRD-related (i.e. dialysis) | | | | | | | indication? Yes | | | | | | + +-------+ +--------+---+ + +---+---+ | | | +---+---+ + +-------+ +-------+---+---+ | famotidine (PEPCID) tablet 20 | Given | 07/21/19 | 20 mg | | | | mg 20 mg, Oral, DAILY, First | | 19 8:23 | | | | | dose (after last reorder) on Mon | | AM PST | | | | | 07/18/18 at 1600, Please do not | | | | | | | decrease < 24 Hr., | | | | | | + +-------+ +-------+---+---+ +-------+ +-------+---+---+ | Given | 07/20/19 | 20 mg | | | | | 19 8:10 | | | | | | AM PST | | | | +-------+ +-------+---+---+ | Given | 07/19/19 | 20 mg | | | | | 19 8:39 | | | | | | AM PST | | | | +-------+ +-------+---+---+ +---+---+ | | | +---+---+ + +---------+ +--------+ +---+ | furosemide (LASIX) 160 mg in | New Bag | 07/20/19 | 160 mg | 88 mL/hr | | | sodium chloride 0.9% 50 mL IVPB | | 19 8:12 | | | | | 160 mg, Intravenous, Administer | | AM PST | | | | | over 45 Minutes, 2 TIMES DAILY | | | | | | | 0800 & 1600, First dose (after | | | | | | | last modification) on 07/19/18 | | | | | | | at 1600, Please give as an | | | | | | | IVPB.* Thanks., | | | | | | + +---------+ +--------+ +---+ +---------+ +--------+ +---+ | New Bag | 07/19/19 | 160 mg | 88 mL/hr | | | | 19 5:06 | | | | | | PM PST | | | | +---------+ +--------+ +---+ +---+---+ | | | +---+---+ + +---------+ +--------+-------+---+ | furosemide (LASIX) 240 mg in | New Bag | 07/19/19 | 240 mg | 148 | | | sodium chloride 0.9% 50 mL IVPB | | 19 8:39 | | mL/hr | | | 240 mg, Intravenous, Administer | | AM PST | | | | | over 30 Minutes, 2 TIMES DAILY | | | | | | | 0800 & 1600, First dose on Mon | | | | | | | 07/18/18 at 1345, Please give as | | | | | | | an IVPB.* Thanks., | | | | | | + +---------+ +--------+-------+---+ +---------+ +--------+-------+---+ | New Bag | 07/18/19 | 240 mg | 148 | | | | 19 2:00 | | mL/hr | | | | PM PST | | | | +---------+ +--------+-------+---+ +---+---+ | | | +---+---+ + +-------+ +-------+---+---+ | furosemide (LASIX) tablet 80 mg | Given | 07/21/19 | 80 mg | | | | 80 mg, Oral, DAILY, First dose | | 19 8:24 | | | | | on Lupis 07/21/18 at 0900 | | AM PST | | | | + +-------+ +-------+---+---+ +---+---+ | | | +---+---+ + +-------+ +--------+---+---+ | heparin 1,000 units/mL | Given | 07/18/19 | 1,000 | | | | injection 1,000 Units 1,000 | | 19 11:36 | Units | | | | Units, Intravenous, ONCE, Mon | | AM PST | | | | | 07/18/18 at 1115, For 1 dose, | | | | | | | While on NxStage Tx., Dialysis | | | | | | + +-------+ +--------+---+---+ +---+---+ | | | +---+---+ + +-------+ +--------+---+---+ | heparin 1,000 units/mL | Given | 07/20/19 | 1,000 | | | | injection 1,000 Units 1,000 | | 19 2:02 | Units | | | | Units, Intravenous, ONCE, Wed | | PM PST | | | | | 07/20/18 at 0900, For 1 dose, | | | | | | | While on NxStage Tx., Dialysis | | | | | | + +-------+ +--------+---+---+ +---+---+ | | | +---+---+ + +---------+ + + +---+ | heparin in half-normal saline | New Bag | 07/18/19 | 500 | 10 mL/hr | | | 50 units/mL infusion 500 | | 19 11:36 | Units/hr | | | | Units/hr (10 mL/hr), at 10 mL/hr, | | AM PST | | | | | Intravenous, DIALYSIS - | | | | | | | CONTINUOUS, Starting 07/18/18 | | | | | | | at 1115, For 1 day, While on | | | | | | | NxStage Tx., Dialysis | | | | | | + +---------+ + + +---+ +---+---+ | | | +---+---+ + +---------+ + + +---+ | heparin in half-normal saline | New Bag | 07/20/19 | 500 | 10 mL/hr | | | 50 units/mL infusion 500 | | 19 2:02 | Units/hr | | | | Units/hr (10 mL/hr), at 10 mL/hr, | | PM PST | | | | | Intravenous, DIALYSIS - | | | | | | | CONTINUOUS, Starting 07/20/18 | | | | | | | at 0900, For 1 day, While on | | | | | | | NxStage Tx., Dialysis | | | | | | + +---------+ + + +---+ +---+---+ | | | +---+---+ + +-------+ +-------+---+---+ | labetalol (TRANDATE) 5 mg/mL | Given | 07/18/19 | 10 mg | | | | injection 10-20 mg 10-20 mg, | | 19 1:17 | | | | | Intravenous, EVERY 2 HOURS PRN, | | PM PST | | | | | SBP > 190, or DBP > 95, Starting | | | | | | | 07/18/18 at 1058 | | | | | | + +-------+ +-------+---+---+ +---+---+ | | | +---+---+ + +-------+ +-------+---+---+ | lisinopril (PRINIVIL, ZESTRIL) | Given | 07/21/19 | 10 mg | | | | tablet 10 mg 10 mg, Oral, DAILY, | | 19 8:23 | | | | | First dose (after last | | AM PST | | | | | modification) on 07/20/18 at | | | | | | | 0900 | | | | | | + +-------+ +-------+---+---+ +-------+ +-------+---+---+ | Given | 07/20/19 | 10 mg | | | | | 19 8:10 | | | | | | AM PST | | | | +-------+ +-------+---+---+ +---+---+ | | | +---+---+ + +-------+ +-------+---+---+ | lisinopril (PRINIVIL,ZESTRIL) | Given | 07/19/19 | 40 mg | | | | tablet 40 mg 40 mg, Oral, DAILY, | | 19 8:39 | | | | | First dose (after last reorder) | | AM PST | | | | | on 07/18/18 at 1600 | | | | | | + +-------+ +-------+---+---+ +-------+ +-------+---+---+ | Given | 07/18/19 | 40 mg | | | | | 19 4:56 | | | | | | PM PST | | | | +-------+ +-------+---+---+ +---+---+ | | | +---+---+ + +-------+ +--------+---+---+ | LORazepam (ATIVAN) injection | Given | 07/18/19 | 0.5 mg | | | | 0.5 mg 0.5 mg, Intravenous, | | 19 11:31 | | | | | EVERY 6 HOURS PRN, Anxiety, | | AM PST | | | | | Starting 07/18/18 at 1127 | | | | | | + +-------+ +--------+---+---+ +---+---+ | | | +---+---+ + +-------+ +------+---+---+ | LORazepam (ATIVAN) tablet 0.5-1 | Given | 07/21/19 | 1 mg | | | | mg 0.5-1 mg, Oral, EVERY 6 | | 19 9:38 | | | | | HOURS PRN, Anxiety, Starting Mon | | AM PST | | | | | 07/18/18 at 1929 | | | | | | + +-------+ +------+---+---+ +-------+ +------+---+---+ | Given | 07/21/19 | 1 mg | | | | | 19 3:59 | | | | | | AM PST | | | | +-------+ +------+---+---+ | Given | 07/20/19 | 1 mg | | | | | 19 8:24 | | | | | | PM PST | | | | +-------+ +------+---+---+ +---+---+ | | | +---+---+ + +-------+ +------+---+---+ | LORazepam (ATIVAN) tablet 1 mg | Given | 07/18/19 | 1 mg | | | | 1 mg, Oral, ONCE, 07/18/18 at | | 19 7:50 | | | | | 2000, For 1 dose | | PM PST | | | | + +-------+ +------+---+---+ + +---+ | | | + +---+ | mannitol 25% injection 12.5 g | | | 12.5 g, Intravenous, Administer | | | over 30 Minutes, PRN, PRN | | | hypotension, Starting Wed07/18/18 | | | at 1058, For BP < 90 mmHg on | | | NxStage. Do not refrigerate. | | | Watch for precipitation. Use | | | 0.22, 1.2, or 5 micron in-line | | | filter for administration., | | | Dialysis | | + +---+ | | | + +---+ | nicotine (NICODERM) 7 mg/24 hr | | | 1 patch 1 patch, Transdermal, | | | DAILY PRN, Nicotine Craving, | | | Starting Wed07/20/18 at 2250 | | + +---+ | | | + +---+ | ondansetron (ZOFRAN) 2 mg/mL | | | injection Starting Wed07/18/18 | | | at 1108, For 1 dose, Alfredo, | | | Sangeeta : kelin quinones, | | + +---+ | | | + +---+ + +-------+ +------+---+---+ | ondansetron (ZOFRAN) injection | Given | 07/18/19 | 4 mg | | | | 4 mg 4 mg, Intravenous, EVERY 6 | | 19 11:32 | | | | | HOURS PRN, Nausea, Vomiting, | | AM PST | | | | | Starting 07/18/18 at 1128 | | | | | | + +-------+ +------+---+---+ +---+---+ | | | +---+---+ + +-------+ + +---+---+ | renal multivitamin (DIALYVITE, | Given | 07/21/19 | 1 tablet | | | | VOL-CARE) tablet 1 tablet 1 | | 19 8:23 | | | | | tablet, Oral, DAILY, First dose | | AM PST | | | | | (after last reorder) on Mon | | | | | | | 07/18/18 at 1600 | | | | | | + +-------+ + +---+---+ +-------+ + +---+---+ | Given | 07/20/19 | 1 tablet | | | | | 19 8:10 | | | | | | AM PST | | | | +-------+ + +---+---+ | Given | 07/19/19 | 1 tablet | | | | | 19 8:39 | | | | | | AM PST | | | | +-------+ + +---+---+ +---+---+ | | | +---+---+ + +-------+ +--------+---+---+ | sevelamer carbonate (RENVELA) | Given | 07/21/19 | 800 mg | | | | tablet 800 mg 800 mg, Oral, 4 | | 19 11:59 | | | | | TIMES DAILY BEFORE MEALS & | | AM PST | | | | | NIGHTLY, First dose on Wed | | | | | | | 07/20/18 at 0730, Do not cut or | | | | | | | crush tablets., | | | | | | + +-------+ +--------+---+---+ +-------+ +--------+---+---+ | Given | 07/21/19 | 800 mg | | | | | 19 6:43 | | | | | | AM PST | | | | +-------+ +--------+---+---+ | Given | 07/20/19 | 800 mg | | | | | 19 5:53 | | | | | | PM PST | | | | +-------+ +--------+---+---+ + +---+ | | | + +---+ | sodium chloride 0.9% (NS) | | | infusion 250 mL at 100 mL/hr, | | | Intravenous, EVERY 30 MIN PRN, | | | PRN hypotension., Starting Mon | | | 07/18/18 at 1058, For BP < 90 mmHg | | | on NxStage., Dialysis | | + +---+ | | | + +---+ + +-------+ +-------+---+---+ | traMADol (ULTRAM) tablet 50 mg | Given | 07/19/19 | 50 mg | | | | 50 mg, Oral, EVERY 6 HOURS PRN, | | 19 5:02 | | | | | Pain, Headaches, Starting Tue | | PM PST | | | | | 07/19/18 at 0911 | | | | | | + +-------+ +-------+---+---+ +-------+ +-------+---+---+ | Given | 07/19/19 | 50 mg | | | | | 19 10:26 | | | | | | AM PST | | | | +-------+ +-------+---+---+ +---+---+ | | | +---+---+ + +-------+ +------+---+---+ | zolpidem (AMBIEN) tablet 5 mg | Given | 07/21/19 | 5 mg | | | | 5 mg, Oral, NIGHTLY PRN, | | 19 1:54 | | | | | Insomnia, Starting 07/20/18 at | | AM PST | | | | | 2250 | | | | | | + +-------+ +------+---+---+ +---+---+ | | | +---+---+ documented in this encounter Additional Health Concerns + + + + | Infection | Noted Time | Resolved Time | + + + + | Methicillin-resistant Staphylococcus aureus | 03/23/2018 12:00 AM | | | | PDT | | + + + + documented as of this encounter
--- OUTSIDE RECORDS SUMMARY | ~2019-05-10 | XMS | Encounter Summary ---
Demographics + + + | Address | [address] | | | [place] [address] | + + + | Home Phone | | + + + | Preferred Language | Unknown | + + + | Marital Status | | + + + | Yazdanism Affiliation | 1038 | + + + | Race | Unknown | + + + | Ethnic Group | Unknown | + + + Author + + + | Author | [facility] | | | and [place] | + + + | Organization | [facility] [...] [place] | | | | | [address] | | + + + + + Care Team Providers + +------+ + | Care Parking Analyst Name | Role | Phone | [...] + | 09/01/ | Telephone | [facility] | Carina Dewey FNP | Scheduling Issues | | 2017 | | [facility] [place] | [address] | | | | | [address] | [place], [place] | | | | | [place], [place] | [address] | | | | | [address] | | | | | | [phone] | | | +--------+ + + + [...]
--- OUTSIDE RECORDS SUMMARY | ~2019-05-10 | XMS | Encounter Summary ---
Demographics + + + | Address | [address] | | | [place] [address] | + + + | Home Phone [...] [facility] | | | and [place] | + + + | Organization | [facility] | | [...] [place] | | | | | [address] | | + + + + + Care Team Providers + +------+ + | Care Towel Rolling Machine Operator Name | Role | Phone [...] | M, DO [address] | injury) ([facility]) | | | | [address] | [place] | (Primary Dx) | | | | [place], [place] | [place], [place] | | | | | [address] | [address] | | | | | [phone] | | | +--------+ + + + [...] AM PSTStanding weekly lab orders sent to [facility] lectronically signed by Marifer Eldridge RN at 07/30/2017 10:46 AM PSTdocumented in this enco unter Plan of Treatment Not on filedocumented as of this encounter Visit Diagnoses + + | Diagnosis | + + | AUNG (acute kidney injury) (HCC) - Primary Acute kidney failure, unspecified | + + documented in this encounter"
--- OUTSIDE RECORDS SUMMARY | ~2019-05-10 | XMS | Encounter Summary ---
Demographics + + + | Address | [address] | | | [place] [address] | + + + | Home Phone | | + + + | Preferred Language | Unknown | + + + | Marital Status | | + + + | Alevism Affiliation | 1038 | + + + | Race | Unknown | + + + | Ethnic Group | Unknown | + + + Author + + + | Author | [facility] | | | and Laloana | + + + | Organization | [facility] | | [...] [place] | | | | | [address] | | + + + + + Care Team Providers + +------+ + | Care Full Time Paramedic Name | Role | Phone | + [...] + + | 07/04/ | Hospital | [facility] | Emanuel Guzmán, | Chest pain in adult | | 2018 - | Encounter | [facility] ICU [address] | [address] | (Primary Dx); | | | | [place], | [place], [place] | Elevated troponin I | | 07/06/ | | [place] [address] | [address] | level; Acute renal | | 2018 | | [phone] | | failure, unspecified | | | | | Antonio Cobb | acute renal failure | | | | | DO Wendy [address] | type (HCC); Acute | | | | | ST [place], [place] | hyponatremia; | | | | | [address] | Methamphetamine | | | | | | abuse; Marijuana use | | | | | Johana Brower, | | | | | | [address] | | | | | | [place], | | | | | | [place] [address] | | | | | | [phone] | | | | | | | [...] Dr. Landin (cardiology) consulted - Transfer to [facility] 2. Chest pain with mildly elevated troponin [...] High risk - Discussed with Dr. Cobb (school traffic guard). Given her high risk and acute respiratory failure from flash pulmonary edema requiring intubation, she would need higher level of car e. I spoke with Dr. Romero (registered midwife) from [facility] who accepted her and now being transferred to [facility]. Updated her grandfather ([phone]); agreeable with the plan. Medications Reconciled upon [...] 52.2 kg (115 lb) Disposition: Transferred to [facility]. Accepted Dr. Romero. Code Status/Advance Directive (Pertinent discussions/declarations): Full Code Time spent on Discharge and Coordination of post-hospital care: >30 minutes Electronically signed by: Johana Brower, 07/06/2017 18:05 [facility] documented in this en counter Discharge Instructions Instructions Johana Brower MD - 07/06/2017Patient being transferred to [facility] for higher level of care. documented in [...] Cha MD - 07/06/2017 2:23 PM PST [facility] Hospitalist Progress Note Aurea [...] PH UA 6.0 5.0 - 8.0 Specific [place] 1.015 1.001 - 1.030 PROTEIN UA 100 [...] Status: Full Code. Discussed with Dr. Cobb (school traffic guard). Given her high risk and acute respiratory failure from flash pulmonary edema requiring intubation, she would need higher level of car e and need transfer to tertiary care center. I spoke with Dr. Romero (registered midwife) from [facility] who accepted her and now being transferred to [facility]. Total time of approximately 60 minutes was spent with the patient and/or patient's family, and/or on the patient's floor/unit, of which more than 50% was spent counseling and/or coord ination the patient's care as outlined above. Johana Brower 07/06/2017 14:23 [facility] Antonio Nassar DO - 07/06/2017 [...] note might be different from the original. [facility] Hospitalist Progress Note Aurea [...] right [facility]. Dictated and Signed by: Paul Mc MD Electronically signed: 07/04/2017 2:58 PM Total time of approximately 25 minutes was spent with the patient and/or patient's family, and/or on the patient's floor/unit, of which more than 50% was spent counseling and/or coord ination the patient's care as outlined above. Yaniv Miller 07/05/2017 18:32 [facility] Portions of this chart may have been created with [employer] voice recognition software. Occasi onal wrong-word or [...] [address] | [place] | [phone] | | [facility] | | [address] | | | - LABORATORY | | [...] ST. | [address] | [place], [place] | [phone] | | [facility] | | [address] | | | - LABORATORY | | [...] (20mg ) Laryngoscope size: | | | Kasepr 4 Tube size: 7.5 mm Tube type: [...] [address] | [place] | [phone] | | [facility] | | [address] | | | - LABORATORY | | [...] ST. | [address] | [place] | [phone] | | [facility] | | [address] | | | - LABORATORY | | [...] | | | | | | [employer] | | | | | [...] [address] | [place] | [phone] | | [facility] | | [address] | | | - LABORATORY | | [...] (H) | 7 - 18 mg/dL | [facility] | | | | | | [facility] | | | | | | MEDICAL | | | | | | CENTER - | | | | | | LABORATORY | | + + + + + + | Creatinine | 2.35 (H) | 0.60 - 1.30 | [facility] | | | | | mg/dL | [facility] | | | | | | MEDICAL | | | | | | CENTER - | | | | | | LABORATORY | | + + + + + + | eGFR if not | 23 (L)Comment: | >=60 | [facility] | | | | GLOMERULAR FILTRATION | mL/min/1.73m2 | [facility] | | | [facility] | RATE,ESTIMATED | | MEDICAL | | | | mL/min/1.41h3Musl than | | CENTER - | | [...] ST. | [address] | [place], [place] | [phone] | | [facility] | | [address] | | | - LABORATORY | | [...] | | | | HAROON WHATLEY MD ([id number]) | | | | | | on [...] mL/min/1.73m2 | [facility] | | | [facility] | RATE,ESTIMATED | | MEDICAL | | | | mL/min/1.26h9Dhkb than | | CENTER - | | [...] [address] | [place] | [phone] | | [facility] | | [address] | | | - LABORATORY | | [...] | | | | | | [employer] | | | | | [...] [address] | [place] | [phone] | | [facility] | | [address] | | | - LABORATORY | | [...] [address] | [place] | [phone] | | [facility] | | [address] | | | - LABORATORY | | [...] | [address] | [place] | [phone] | | [facility] | | [address] | | | - LABORATORY | | [...] - 1.030 | [facility] | | | [place] | | | [facility] | | [...] [address] | [place] | [phone] | | [facility] | | [address] | | | - LABORATORY | | [...] [address] | [place] | [phone] | | [facility] | | [address] | | | - LABORATORY | | [...] 2.14 (H) | 0.60 - 1.30 | [facility] | | | | | mg/dL | [facility] | | | | | | MEDICAL | | | | | | CENTER - | | | | | | LABORATORY | | + + + + + + | eGFR if not | 26 (L)Comment: | >=60 | [facility] | | | | GLOMERULAR FILTRATION | mL/min/1.73m2 | [facility] | | | [facility] | RATE,ESTIMATED | | MEDICAL | | | | mL/min/1.37s9Gyyh than | | CENTER - | | [...] [address] | [place] | [phone] | | [facility] | | [address] | | | - LABORATORY | | [...] ST. | [address] | [place], [place] | [phone] | | [facility] | | [address] | | | - LABORATORY | | [...] [address] | [place] | [phone] | | 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 Procedure Type of | | | Study [...] | | | EF | | | Xdoqqcgpk52% Left Ventricle Diastolic Dimension: 5.63 cm | [...] Volume: 72.22 ml | | | EF Hqmmxwkou74% | | | | | | Left [...] Flannery Results In - 07/05/2017 10:03 AM [facility] Transthoracic Echocardiography Report | | (TTE) Demographics Patient Name VALERIA Room Number 422 | | AUREA Keita Patient Number [id number] Date of Study 07/05/2017 Visit | | Number [id number] Referring Physician BÁRBARA | | ARAVIND Franco 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 | [address] | [place] | [phone] | | [facility] | | [address] | | | - LABORATORY | | [...] | | | | | | [employer] | | | | | [...] ST. | [address] | [place], [place] | [phone] | | [facility] | | [address] | | | - LABORATORY | | [...] | | | | | | [employer] | | | | | [...] ST. | [address] | [place], [place] | [phone] | | [facility] | | [address] | | | - LABORATORY | | [...] [address] | [place] | [phone] | | [facility] | | [address] | | | - LABORATORY | | [...] + | [facility] | [address] | [place] | [phone] | | [facility] | | [address] | | | - LABORATORY | | [...] + | [facility] | [address] | [place] | [phone] | | [facility] | | [address] | | | - LABORATORY | | [...] + | Performed at: 01 - [place] [address], | REFERENCE LAB | | [place], [place] [id number] Room Service Supervisor: Jonah Parekh MD, Phone: | [place] [facility] [place] | | [phone] | | + + + + + + + + | Performing | Address | City/State/Zipcode | Phone Number | | Organization | | | | + + + + + | REFERENCE LAB | [address] | [place] [address] | [phone] | | [facility] | [address] [...] [address] | [place] | | | [facility] | | [address] | | | - BLOOD BANK | [...] | | Ab, [facility] | | | [facility] | | | | | | MEDICAL | | | | | | CENTER - | | | | | | LABORATORY | | + + + + + + | HIV-1 P24 | Non-Reactive | Non-Reactive | [facility] | | | Ag | | | [facility] | | | | | [...] [address] | [place] | [phone] | | [facility] | | [address] | | | - LABORATORY | | [...] [address] | [place] | [phone] | | [facility] | | [address] | | | - LABORATORY | | [...] [address] | [place] | [phone] | | [facility] | | [address] | | | - LABORATORY | | [...] + | [facility] | [address] | [place] | [phone] | | [facility] | | [address] | | | - LABORATORY | | [...] - 1.030 | [facility] | | | [place] | | | [facility] | | [...] [address] | [place] | [phone] | | [facility] | | [address] | | | - LABORATORY | | [...] [address] | [place] | [phone] | | [facility] | | [address] | | | - LABORATORY | | [...] | | | | | | [employer] | | | | | [...] + | [facility] | [address] | [place], [place] | [phone] | | [facility] | | [address] | | | - LABORATORY | | [...] mL/min/1.73m2 | [facility] | | | [facility] | RATE,ESTIMATED | | MEDICAL | | | | mL/min/1.67j5Ylnk than | | CENTER - | | [...] + | [facility] | [address] | [place] | [phone] | | [facility] | | [address] | | | - LABORATORY | | [...] + | [facility] | [address] | [place] | [phone] | | [facility] | | [address] | | | - LABORATORY | | [...] | | | | HAROON WHATLEY MD ([id number]) | | | | | | on [...]
--- OUTSIDE RECORDS SUMMARY | ~2019-05-10 | XMS | Encounter Summary ---
Demographics + + + | Address | [address] | | | [place] [address] | + + + | Home Phone | | + + + | Preferred Language | Unknown | + + + | Marital Status | | + + + | Hindu Affiliation | 1038 | + + + | Race | Unknown | + + + | Ethnic Group | Unknown | + + + Author + + + | Author | [facility] | | | and Laloana | + + + | Organization | [facility] | | | and [...] [place] | | | | | [address] | | + + + + + Care Team Providers + +------+ + | Care Senior Reactor Operator Name | Role | Phone | + +------+ + PCP | Unavailable | + +------+ + Encounter Details +--------+ + + + + | Date | Type | Department | Care Team | Description | +--------+ + + + + | [facility]15[facility] | [facility] RODNEY | | | 1982 - | Encounter | [facility] | | | | | | GENERIC CONV 1321 | | | | 06/06/ | | [place], | | | | 1995 | | [place] [address] | | | | | | [phone] | | | +--------+ + + + [...]
--- OUTSIDE RECORDS SUMMARY | ~2019-05-10 | XMS | Encounter Summary ---
Demographics + + + | Address | [address] | | | [place] [address] | + + + | Home Phone [...] + | Author | [facility] | | | and Lalo[place] | + + + | Organization | [facility] | | [...] [place] | | | | | [address] | | + + + + + Care Team Providers + +------+ + | Care License Registration Examiner Name | Role | Phone | + +------+ + PCP | Unavailable | + +------+ + Encounter Details +--------+ + + + + | Date | Type | Department | Care Team | Description | +--------+ + + + + | 03/22/ | Hospital | [facility] | Conversion | Diagnosis unknown | | 2018 | Encounter | CONVERSION [address] | Transaction, | | | | | [address] | Provider Unknown | | | | | [place], [place] | [phone] | | | | | [address] | | | | | | [phone] | | | +--------+ + + + [...] + + +---------+ + + | B Mlqytxo-T-Coolw | Take 1 Tab by mouth. | [...] + + +---------+ + + | B Otoneok-N-Hmokl | Take 1 tablet by | 30 [...] | | | | | | | [facility] | | | | | | | [facility]]. | | | | | [...]
--- OUTSIDE RECORDS SUMMARY | ~2019-05-10 | XMS | Encounter Summary ---
Demographics + + + | Address | [address] | | | [place] [address] | + + + | Home Phone [...] | [facility] | | | and [place] | + + + | Organization | [facility] | | | and [...] + | Beverly Perez | ECON | [place] | | | | | [address] | | + + + + + Care Team Providers + +------+ + | Care Buttermaker Helper Name | Role | Phone | [...] | | | | | injury) | [address] | | | | | | ([facility]) | [place], | | | | | | | [place] [address] | | | | | | | Phone: | | | | | | | [phone] | | | | | | | Fax: | | | | | | | [phone] | | +--------+ + + + + [...] + + | 07/26/ | Hospital | [facility] | Shahab Luther MD | AUNG (acute kidney | | 2018 - | Encounter | [facility] | [address] | injury) ([facility]) | | | | [address] [place] | [facility] [place] | (Primary Dx); Acute | | 07/30/ | | [place] [place] [address] | [address] | pulmonary edema | | 2018 | | [phone] | | (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); | | | | | [place] | Acute respiratory | | | | | [address] | failure with hypoxia | | | | | | ([facility]); 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) ([facility]); | | | | | | Anemia [...] might be different fro m the original. [facility] [place] HOSPITALIST DISCHARGE SUMMARY Pt. Name/Age/: Aurea Rushing [...] better did have elevated D Dimer at [facility] but not candidate for CT with [...] Recent Hemoptysis (she said no hemoptysis to [facility] on ) and Vag bleeding However the vaginal bleeding was anticpated to last up to the per [facility] seen by Dr Montilla here (spelling) patient says not unexpected to bleed this degree , Dr Barreto ordered iron 23 better AUNG (acute kidney injury) She had prior TTP/HUS (was [facility] then [facility] then [facility] was discharged [facility] just 4 days LOAN CLOSER Rx with Plasmapheresis and Eculizamab and termination of ) Dr Barreto helping. Platelets good presently, prior renal Bx at [facility] and that Platelets still good, anemia improved, WBC normal, BNP is near identical to Jul 06 however with the IVC having normal collapse on Echo this admit this level of BNP more reflec ts her CKD which is stable. I spoke with Dr Barreto whom favors home Lasix of 40 mg and Ald actone. Note that her Creatinine [facility] Jul 22 was 3.16 Na 139 K 3.2. 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 Interstitial fi brosis and tubular atrophy. Sent ADAMTS 13 Activity: 130 (range 68-163%) 07/10/17: Plasmapheresis and Eculizamab started. 07/12/17: ACLA IgG negative. ACLA IgA negative. ACLA IgM negative. Complement C3 112 mg/dL. C omplement C4 21 mg/dL. Total complement CH50 > 60 Copper 250. Zinc 75 Termination of 07/17 [facility] has been involved in her care MFM spoke with patient about contraception, pt signed tubal papers, needs to wait at least 30 days Pt should get depoprovera prior to d/c home-ordered by [facility] Pt should f/u with OB in [place] for tubal and follow-up Will let pt know that she may have increased vaginal bleeding 10-14 days post-termination ( 07/27-07/31) lasting approx 2 days, if increased significantly she should be seen by OB in [facility]. Per patient, family is now aware of her (prior notes stated that they were not aw are) Note [facility] sent her home on the Jul on [...] weeks from discharge Contact information: [address], [address] [place] [id number] Condition: Patient being discharged with condition improved Active Hospital Problems Diagnosis Acute respiratory failure with hypoxia (initally was intubated back in June) This is do to combo of Diastolic dysfunction (acute on chronic) and her CKD is better did have elevated D Dimer at [facility] but not candidate for CT with [...] anticpated to last up to the per [facility] seen by Dr Montilla here (spelling) patient says not unexpected to bleed this degree , Dr Barreto ordered iron 23 better AUNG (acute kidney injury) She had prior TTP/HUS (was [facility] then [facility] then [facility] was discharged from [facility] just 4 days LOAN CLOSER Rx with Plasmapheresis and Eculizamab and termination of ) Dr Barreto helping. Platelets good presently, prior renal Bx at [facility] and that Platelets still good, anemia improved, WBC normal, BNP is near identical to Jul 06 however with the IVC having normal collapse on Echo this admit this level of BNP more reflec ts her CKD which is stable. I spoke with Dr Barreto whom favors home Lasix of 40 mg and Ald actone. Note that her Creatinine [facility] Jul 22 was 3.16 Na 139 K 3.2. 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 Interstitial fi brosis and tubular atrophy. Sent ADAMTS 13 Activity: 130 (range 68-163%) 07/10/17: Plasmapheresis and Eculizamab started. 07/12/17: ACLA IgG negative. ACLA IgA negative. ACLA IgM negative. Complement C3 112 mg/dL. C omplement C4 21 mg/dL. Total complement CH50 > 60 Copper 250. Zinc 75 Termination of 07/17 [facility] has been involved in her care MFM spoke with patient about contraception, pt signed tubal papers, needs to wait at least 30 days Pt should get depoprovera prior to d/c home-ordered by [facility] Pt should f/u with OB in [place] for tubal and follow-up Will let pt know that she may have increased vaginal bleeding 10-14 days post-termination ( 07/27-07/31) lasting approx 2 days, if increased significantly she should be seen by OB in [facility]. Per patient, family is now aware of her (prior notes stated that they were not aw are) Note [facility] sent her home on the Jul on [...] nor [facility] once a week at [facility] on Wednesday Dr Barreto to see [...] signed by: Héctor Ernandez MD, 07/30/2017 11:02 [facility] Reference. This is NOT part of [...] this chart may have been created with Twonq voice recognition software. Occasi onal wrong-word or sound-alike substitutions may have occurred due to the inherent guerrero itations of voice recognition software. Please read the chart carefully and recognize, using context, where these substitutions have occurred documented in this en counter Discharge Instructions Instructions Héctor Ernnadez MD - 07/30/2017Healthy eating no alcohol nor tobacco nor stre et drugs nor [facility] once a week at [facility] on Wednesday Dr Barreto to see [...] Kerns MD - 07/30/2017 10:52 AM PST [place], [place] HOSPITALIST PROGRESS NOTE Patient: Aurea Rushing : 1980: Age: 37 y.o. MedRec: [id number] PCP: Fauzia Santos MD Admission date: 07/26/2017 [...] for input(s): IRON, TIBC, PCTSAT, FERRITIN, TSH, [id number], FOLATE in the last 168 hours. Inflammatory [...] ABG No results for input(s): PHART, PO2ART, YWS6XCZ, GXL2MOI, BEART, [id number] in the last 168 h ours. No results for input(s): SPECSOURCE, PHPOCB, PCO2, PO2, HCO3, TCO2, BEART, [id number] in the last 168 hours. Drug of [...] dot micro, for reference below is dot [id number] URSR Microbiology Results (72 hrs) No results [...] of oxy (she was out of her [place] bottle) and she was not using ati van LOAN CLOSER form long time ROS See above Exam [...] better did have elevated D Dimer at [facility] but not candidate for CT with [...] Recent Hemoptysis (she said no hemoptysis to [facility] on ) and Vag bleeding However the vaginal bleeding was anticpated to last up to the per [facility] seen by Dr Montilla here (spelling) patient says not unexpected to bleed this degree , Dr Barreto ordered iron 23 better AUNG (acute kidney injury) She had prior TTP/HUS (was [facility] then [facility] then [facility] was discharged from latter just 4 days LOAN CLOSER Rx with Plasmapheresis and Eculizamab and termination of ) Dr Barreto helping. Platelets good presently, prior renal Bx at [facility] and Platelets still good, anemia improved, WBC normal, BNP is near identical to Jul 06 however with the IVC having normal collapse on Echo this admit this level of BNP more reflec ts her CKD which is stable. I spoke with Dr Barreto whom favors home Lasix of 40 mg and Ald actone. Note that her Creatinine [facility] Jul 22 was 3.16 Na 139 K 3.2. 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 [...] get depoprovera prior to d/c home-ordered by [facility] Pt should f/u with OB in [place] for tubal and follow-up Will let pt know that she may have increased vaginal bleeding 10-14 days post-termination ( 07/27-07/31) lasting approx 2 days, if increased significantly she should be seen by OB in [facility]. Per patient, family is now aware of her (prior notes stated that they were not aw are) Note [facility] sent her home on the Jul on [...] meycritical meysign) Héctor Ernandez MD 07/30/2017 10:52 [facility] Reference. This is NOT part of the [...] this chart may have been created with Twonq voice recognition software. Occasi onal wrong-word or [...] kidney failure. -Weekly labs ordered to [facility] [place]. -Post-hospital f/u with Dr. Barreto will be scheduled for 2-weeks. 2. Hypertension Dr. Ernandez to adjust medications prior to discharge. Petra Sabillon MD Jhoana Ann DO - 07/29/2017 6:31 PM PST [facility] [address] [place] [address] PROGRESS NOTE Pt. Name/Age/: Aurea Rushing 37 y.o. 1980 Med. Record Number: [id number] Date of admission: 07/26/2017 NEPHROLOGY HPI - [...] HTN-- will need renal A-gram later with LOAN CLOSER if necessary. Would be best done at an IR lab, oupt. Will tentatively plan on sending her to Dr. Remi Garsia, Outpt later, for combined approach. 4. s/p therapeutic -- current post procedure bleeding not unusual, per REAL ESTATE MARKETING COORDINATOR. PLAN 1. Titrate meds as needed for BP. Could finish this outpt. 2. She will need weekly lab Outpt at [facility] in [place], [place]. 3. Will see her in 2 weeks at the [facility]. Will co ntact her with time. 4. May be worth considering Nifedipine XL , BID for now, if BP remains elevated overnite. 5. Will be Out of Office from 1900 today to 0700, 08/02/17. [facility] eyer, Héctor Regan MD - 07/29/2017 2:38 PM PST [facility] [place] HOSPITALIST PROGRESS NOTE Patient: Aurea Rushing : 1980: Age: 37 y.o. MedRec: [id number] PCP: Fauzia Santos MD Admission date: 07/26/2017 [...] for input(s): IRON, TIBC, PCTSAT, FERRITIN, TSH, [id number], FOLATE in the last 168 hours. Inflammatory [...] ABG No results for input(s): PHART, PO2ART, VSX8URL, GOQ9BYF, BEART, [id number] in the last 168 h ours. No results for input(s): SPECSOURCE, PHPOCB, PCO2, PO2, HCO3, TCO2, BEART, [id number] in the last 168 hours. Drug of [...] dot micro, for reference below is dot [id number] URSR Microbiology Results (72 hrs) No results [...] this morning Awais upped her CCB to LOAN CLOSER dose Achilles tendon area sore X 2 [...] better did have elevated D Dimer at [facility] but not candidate for CT with [...] anticpated to last up to the per [facility] OB seen by Dr Montilla here (spelling) patient says not unexpected to bleed this degree , Dr Barreto ordered iron AUNG (acute kidney injury) She had prior TTP/HUS (was [facility] then [facility] then [facility] was discharged from [facility] just 4 days LOAN CLOSER Rx with Plasmapheresis and Eculizamab and termination of ) Dr Barreto helping. Platelets good presently, prior renal Bx at [facility] and Platelets still good, anemia improved, WBC normal, BNP is near identical to Jul 06 however with the IVC having normal collapse on Echo this admit this level of BNP more reflec ts her CKD which is stable. I spoke with Dr Barreto whom favors home Lasix of 40 mg and Ald actone. Note that her Creatinine [facility] Jul 22 was 3.16 Na 139 K 3.2. 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 [...] get depoprovera prior to d/c home-ordered by [facility] Pt should f/u with OB in [place] for tubal and follow-up Will let pt know that she may have increased vaginal bleeding 10-14 days post-termination ( 07/27-07/31) lasting approx 2 days, if increased significantly she should be seen by OB in [facility]. Per patient, family is now aware of her (prior notes stated that they were not aw are) Note [facility] sent her home on the Jul on [...] attestation for malnutrition) Plan Procardia increased today REAL ESTATE MARKETING COORDINATOR to see patient make sure this degree of vag bleeding OK Phys Therapy Dr Peck thinking oupatient TRISTON eval in future out outside center Aldactone stopped given she has diastolic CHF with CKD and with her GFR high K is a risk (dot meyaddendum tdnorefesh nownorefresh) (dot meytime meycritical meysign) Héctor Ernandez MD 07/29/2017 14:38 [facility] Reference. This is NOT part of the [...] this chart may have been created with Twonq voice recognition software. Occasi onal wrong-word or sound-alike substitutions may have occurred due to the inherent guerrero itations of voice recognition software. Please read the chart carefully and recognize, using context, where these substitutions have occurred Jhoana Ann, DO - 07/28/2017 5:51 PM PST [facility] [address] [place] [address] PROGRESS NOTE Pt. Name/Age/: Aurea Rushing 37 y.o. 1980 Med. Record Number: [id number] Date of admission: 07/26/2017 NEPHROLOGY HPI - [...] Could X-matty to floor? 4. DC matias. [facility] eyer, Héctor Regan MD - 07/28/2017 9:04 AM PST [facility] [place] HOSPITALIST PROGRESS NOTE Patient: Aurea Rushing : 1980: Age: 37 y.o. MedRec: [id number] PCP: Fauzia Santos MD Admission date: 07/26/2017 [...] for input(s): IRON, TIBC, PCTSAT, FERRITIN, TSH, [id number], FOLATE in the last 168 hours. Inflammatory [...] ABG No results for input(s): PHART, PO2ART, RUD3JXL, EXA4TZI, BEART, [id number] in the last 168 h ours. No results for input(s): SPECSOURCE, PHPOCB, PCO2, PO2, HCO3, TCO2, BEART, [id number] in the last 168 hours. Drug of [...] dot micro, for reference below is dot [id number] URSR Microbiology Results (72 hrs) Procedure Component Value Units Date/Time Culture, MRSA [[id number]] Collected: 07/26/17 1305 Order Status: Completed Lab [...] better did have elevated D Dimer at [facility] but not candidate for CT with cont rast better, on Room air Echo this admit EF 58 percent and grade one LVDD and less severe MR vs June Troponins flat and not suggest ACS Chronic HTN (at least 4 years) Anemia Recent Hemoptysis (she said no hemoptysis to [facility] on ) and Vag bleeding However the vaginal bleeding was anticpated to last up to the per [facility] AUNG (acute kidney injury) She had prior TTP/HUS (was [facility] then [facility] then [facility] was discharged from [facility] just 4 days LOAN CLOSER Rx with Plasmapheresis and Eculizamab and termination of ) Dr Barreto helping. Platelets good presently, prior renal Bx at [facility] and that Platelets still good, anemia improved, WBC normal, BNP is near identical to Jul 06 however with the IVC having normal collapse on Echo this admit this level of BNP more reflec ts her CKD which is stable. I spoke with Dr Barreto whom favors home Lasix of 40 mg and Ald actone. Note that her Creatinine [facility] Jul 22 was 3.16 Na 139 K 3.2. 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 [...] get depoprovera prior to d/c home-ordered by [facility] Pt should f/u with OB in [place] for tubal and follow-up Will let pt know that she may have increased vaginal bleeding 10-14 days post-termination ( 07/27-07/31) lasting approx 2 days, if increased significantly she should be seen by OB in [facility]. Per patient, family is now aware of her (prior notes stated that they were not aw are) Note [facility] sent her home on the Jul on [...] for malnutrition) Plan Her Coreg was increased REAL ESTATE MARKETING COORDINATOR to see patient make sure this degree of vag bleeding OK Needs Lasix will convert to oral after today IV DDAVP from Dr Barreto to increase platelet effect (dot meyaddendum tdnorefesh nownorefresh) (dot meytime meycritical meysign) Héctor Ernandez MD 07/28/2017 9:04 [facility] Reference. This is NOT part of the [...] this chart may have been created with Twonq voice recognition software. Occasi onal wrong-word or sound-alike substitutions may have occurred due to the inherent guerrero itations of voice recognition software. Please read the chart carefully and recognize, using context, where these substitutions have occurred olph, Emanuel Keita [facility] - 07/27/2017 3:35 PM PST PHARMACY SERVICES: [...] list names: Amaya NicoleKyara Cesar [place] [address] [place] CLEAN OUT DRILLER (Prescription Monitoring Program) X [employer] insurance reported [...] Prior to Admission Sig: Patient taking differently LOAN CLOSER as: Lorazepam 1 mg Take 1-2 every 6 hours as needed for anxiety Patient states taking; Primary pharmacy never filled and [facility] shows no fills in the last year Best possible LOAN CLOSER medication list after pharmacy review: Prior to [...] performed and electronically signed by Iqra Jenkins, Project Finance Analyst 15:16 Electronically signed by: Emanuel Alcala [facility] 07/27/2017 15:35 eticia Alford RN - 07/27/2017 3:25 PM PSTPt has been c/o anxiety all day, but states it is worse than pre viously. Dr. Ernandez notified and orders rec'd. Jhoana Ann DO - 07/27/2017 11:05 AM PSTFormatting of t his note might be different from the original. [facility] [address] [place] [address] PROGRESS NOTE Pt. Name/Age/: Aurea Rushing 37 y.o. 1980 Med. Record Number: [id number] Date of admission: 07/26/2017 NEPHROLOGY HPI - Sitting up after US. Dyspnea is better. She states that she is spotting today, as i n vaginal bleeding. More info. has become available overnite. Apparently, she was felt to have with pre-eccplampsia at [facility], and not TTP/HUS. Hard copy of renal [...] is better vs. last mo. (Film from [facility] did no t roll into EPIC/PACS). LAB: [...] spotting today. Dr. Ernandez agreed to have SUPERVISOR MAILS take a lo ok at pt. 5. [...] Retic. cou nt appear to have normalized. [facility] Héctor Kerns MD - 07/27/2017 8:47 AM PST [facility] [place] HOSPITALIST PROGRESS NOTE Patient: Aurea Rushing : 1980: Age: 37 y.o. MedRec: [id number] PCP: Fauzia Santos MD Admission date: 07/26/2017 [...] for input(s): IRON, TIBC, PCTSAT, FERRITIN, TSH, [id number], FOLATE in the last 168 hours. Inflammatory [...] ABG No results for input(s): PHART, PO2ART, GLM6EMX, SCA1UNI, BEART, [id number] in the last 168 h ours. No results for input(s): SPECSOURCE, PHPOCB, PCO2, PO2, HCO3, TCO2, BEART, [id number] in the last 168 hours. Drug of [...] dot micro, for reference below is dot [id number] URSR Microbiology Results (72 hrs) Procedure Component Value Units Date/Time Culture, MRSA [[id number]] Collected: 07/26/17 1305 Order Status: Sent Lab [...] better did have elevated D Dimer at [facility] but not candidate for CT with cont rast Echo this admit EF 58 percent and grade one LVDD and less severe MR vs June Troponins flat and not suggest ACS Chronic HTN (at least 4 years) Anemia Recent Hemoptysis and Vag bleeding However the vaginal bleeding was anticpated to last up to the per [facility] OB AUNG (acute kidney injury) She had prior TTP/HUS (was [facility] then [facility] then [facility] was discharged from latter just 4 days LOAN CLOSER Rx with Plasmapheresis and Eculizamab and termination of ) Dr Barreto helping. 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 Interstitial fi brosis and tubular atrophy. Sent ADAMTS 13 Activity: 130 (range 68-163%) 07/10/17: Plasmapheresis and Eculizamab started. 07/12/17: ACLA IgG negative. ACLA IgA negative. ACLA IgM negative. Complement C3 112 mg/dL. C omplement C4 21 mg/dL. Total complement CH50 > 60 Copper 250. Zinc 75 Note [facility] sent her home on the Jul on [...] meycritical meysign) Héctor Ernandez MD 07/27/2017 8:47 [facility] Reference. This is NOT part of the [...] this chart may have been created with Twonq voice recognition software. Occasi onal wrong-word or [...] mL/min/1.73m2 | [facility] | | | [facility] | | | MEDICAL | | | [...] + | [facility] | [address] | [place] | [phone] | | [facility] | | [address] | | | - LABORATORY | | [...] [address] | [place] | [phone] | | [facility] | | [address] | | | - LABORATORY | | [...] | | | | g/dL | [facility] | | | | | | MEDICAL [...] + | [facility] | [address] | [place] | [phone] | | [facility] | | [address] | | | - LABORATORY | | [...] mL/min/1.73m2 | [facility] | | | [facility] | | | MEDICAL | | | [...] [address] | [place] | [phone] | | [facility] | | [address] | | | - LABORATORY | | [...] ST. | [address] | [place] | [phone] | | [facility] | | [address] | | | - LABORATORY | | [...] | [address] | [place] | [phone] | | [facility] | | [address] | | | - LABORATORY | | [...] mL/min/1.73m2 | [facility] | | | [facility] | | | MEDICAL | | | [...] [address] | [place] | [phone] | | [facility] | | [address] | | | - LABORATORY | | [...] [address] | [place] | [phone] | | [facility] | | [address] | | | - LABORATORY | | [...] [address] | [place] | [phone] | | [facility] | | [address] | | | - LABORATORY | | [...] [facility] | | | | | | [facility] | | | | | | MEDICAL | | | | | | CENTER - | | | | | | LABORATORY | | + + + + + + | RBC | 3.05 (L) | 3.70 - 5.20 | [facility] | | | | | M/uL | [facility] | | | | | | MEDICAL [...] [address] | [place] | [phone] | | [facility] | | [address] | | | - LABORATORY | | [...] | | | | | with both SD-3 and | | | | | | [...] + + | Performed at: 01 - [facility] [address], | REFERENCE LAB | | [place], [place] [id number] Certified Histologic Technician: iMke Rehman MD, Phone: | [place] | | [phone] | | + + + + + + + + | Performing | Address | City/State/Zipcode | Phone Number | | Organization | | | | + + + + + | REFERENCE LAB | [address] | [place], [place] [address] | [phone] | | [place] | Drive [facility] | | | + + + [...] + + + | Performed at: - [facility] [address], | REFERENCE LAB | | [place], [place] [id number] Certified Histologic Technician: Jonah Parekh MD, Phone: | [facility] | | [phone] | | + + + + + + + + | Performing | Address | City/State/Zipcode | Phone Number | | Organization | | | | + + + + + | REFERENCE LAB | [address] | [place] [address] | [phone] | | [facility] | Drive [...] + + | Performed at: 01 [address] [place] [address], | REFERENCE LAB | | [place], [place] [id number] Certified Histologic Technician: Jonah Parekh MD, Phone: | [facility] | | [phone] | | + + + + + + + + | Performing | Address | City/State/Zipcode | Phone Number | | Organization | | | | + + + + + | REFERENCE LAB | [address] | [place] [address] | [phone] | | [facility] | Drive [...] + | [facility] | [address] | [place] | [phone] | | [facility] | | [address] | | | - LABORATORY | | [...] [address] | [place] | [phone] | | [facility] | | [address] | | | - LABORATORY | | [...] + | [facility] | [address] | [place] | [phone] | | [facility] | | [address] | | | - LABORATORY | | [...] mL/min/1.73m2 | [facility] | | | IVORIAN | RATE,ESTIMATED | | MEDICAL | | | | mL/min/1.82k4Edpm than | | CENTER - | | [...] 7.8 (L) | 8.3 - 10.5 | [facility] | | | | | mg/dL | [...] [address] | [place] | [phone] | | [facility] | | [address] | | | - LABORATORY | | [...] [address] | [place] | [phone] | | [facility] | | [address] | | | - LABORATORY | | [...] | | | | | | [employer] | | | | | [...] + | [facility] | [address] | [place] | [phone] | | [facility] | | [address] | | | - LABORATORY | | [...] ST. | 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 Gallito | | | Age 37 year(s) Interpreting | | | LUIS EDUARDO RBAUN | | | Medical Staff Coordinator LE | | | LE HOFF MD | | | Gender Female Nurse | | | Stress [employer] Hospitalist Procedure Type of | | | Study [...] | | | EF | | | Ubefgdvfs44% Left Ventricle Diastolic Dimension: 5.62 cm | [...] Volume: 51.99 ml | | | EF Myczzmngf05% | | | | | | Left [...] Number 452 | | L Patient Number [id number] Date of Study 07/26/2017 Visit Number | | [id number] Referring Physician RAMY JED-HWA Number | | 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 | [facility] | | | - LABORATORY | + + + + + + + + | Performing | Address | City/State/Zipcode | Phone Number | | Organization | | | | + + + + + | [facility] | [address] | [place], [place] | [phone] | | [facility] | | [address] | | | - LABORATORY | | [...] [address] | [place] | [phone] | | [facility] | | [address] | | | - LABORATORY | | [...] + | [facility] | [address] | [place] | [phone] | | [facility] | | [address] | | | - LABORATORY | | [...] [address] | [place] | [phone] | | [facility] | | [address] | | | - LABORATORY | | [...] - 1.030 | [facility] | | | [place] | | | [facility] | | [...] + | [facility] | [address] | [place] | [phone] | | [facility] | | [address] | | | - LABORATORY | | [...] [address] | [place] | [phone] | | [facility] | | [address] | | | - LABORATORY | | [...] ST. | [address] | [place], [place] | [phone] | | [facility] | | [address] | | | - LABORATORY | | [...] [address] | [place] | [phone] | | [facility] | | [address] | | | - LABORATORY | | [...] | | | | | | [facility] | | | | | | MEDICAL [...] + | [facility] | [address] | [place] | [phone] | | [facility] | | [address] | | | - LABORATORY | | [...] [address] | [place] | [phone] | | [facility] | | [address] | | | - LABORATORY | | [...] | | | | | | [employer] | | | | | [...] + + | Performing | Address | City/State/[facility] | Phone Number | | Organization | | | | + + + + + | [facility] | [address] | [place], [place] | [phone] | | [facility] | | [address] | | | - LABORATORY | | [...] [address] | [place] | [phone] | | [facility] | | [address] | | | - LABORATORY | | | | + + + + + Magnesium (07/26/2017 1:40 PM PST) + +-------+ + + + | Component | Value | Ref Range | Performed | Pathologist | | | | | At | Signature | + +-------+ + + + | Magnesium | 2.2 | 1.8 - 2.5 mg/dL | [facility] | | | | [...] + | [facility] | [address] | [place] | [phone] | | [facility] | | [address] | | | - LABORATORY | | [...] (H) | 7 - 18 mg/dL | [facility] | | | | | | [facility] | | | | | | MEDICAL | | | | | | CENTER - | | | | | | LABORATORY | | + + + + + + | Creatinine | 2.83 (H) | 0.60 - 1.30 | [facility] | | | | | mg/dL | [...] mL/min/1.73m2 | [facility] | | | IV[facility]IAN | RATE,ESTIMATED | | MEDICAL | | | | mL/min/1.14a6Yshn than | | CENTER - | | [...] + | [facility] | [address] | [place] | [phone] | | [facility] | | [address] | | | - LABORATORY | | [...] | | | | HAROON WHATLEY MD ([id number]) | | | | | | on [...] [address] | [place] | [phone] | | [facility] | | [address] | | | - LABORATORY | | [...] | | | | | modification) on [facility] 07/29/17 at | | | | [...] medications/reasons PHARMACY | | | CONSULT, Starting [facility] 07/29/17 at | | | 0640, [...] | | | DAILY, First dose on [facility] 07/29/17 | | AM PST | [...]
--- OUTSIDE RECORDS SUMMARY | ~2019-05-10 | XMS | Encounter Summary ---
Demographics + + + | Address | [address] | | | [place] [address] | + + + | Home Phone | | + + + | Preferred Language | Unknown | + + + | Marital Status | | + + + | Mu-Ism Affiliation | 1038 | + + + | Race | Unknown | + + + | Ethnic Group | Unknown | + + + Author + + + | Author | [facility] | | | and [place] | + + + | Organization | [facility] | | [...] [place] | | | | | [address] | | + + + + + Care Team Providers + +------+ + | Care Rail Equipment Operator Name | Role | Phone | [...] [address] | [place], [address] | | | | | [place], [place] | [place], [place] | | | | | [address] | [address] | | | | | [phone] | | | +--------+--------+ + + + [...]
--- OUTSIDE RECORDS SUMMARY | ~2019-05-10 | XMS | Encounter Summary ---
Demographics + + + | Address | [address] | | | [place] [address] | + + + | Home Phone [...] | Author | [facility] | | | and [place]alo[place] | + + + | Organization | [facility] [...] + | Beverly Perez | ECON | [place] | | | | | [address] | | + + + + + Care Team Providers + +------+ + | Care Director Of Operations For Therapy Name | Role | Phone | + [...] + + | 09/01/ | Hospital | [facility] | Jhoana Barreto | | | 2017 | Encounter | [facility] | M, DO [address] | | | | | [address] [place] | [address] | | | | | [place] [address] | [place] | | | | | [phone] | [address] | | | | | | | [...] - 09/01/2017 6:20 PM PDTPt transferred to [facility] at 1815 via [facility] Department transport. 20g IV placed to Right AC per mirtha Brewster nurse. Re port called to MAURICE Saez at [facility]. Questions asked and answered. Scottie Ayala RN - 09/01/2017 5:27 PM PDTPt arrived to room [address] Barreto's office at 1715. Per , pt to be transf erred to [facility] via ambulance transport in thirty minutes. documented [...]
--- OUTSIDE RECORDS SUMMARY | ~2019-05-10 | XMS | Encounter Summary ---
Demographics + + + | Address | [address] | | | [place] [address] | + + + | Home Phone [...] + | Author | [facility] | | | and [place]aloana | + + + | Organization | [facility] [...] + | Beverly Perez | ECON | [place] | | | | | [address] | | + + + + + Care Team Providers + +------+ + | Care Wildlife Manager Name | Role | Phone | [...] | | [address] | [place], [address] | | | | | [place], [place] | [place], [place] | | | | | [address] | [address] | | | | | [phone] | | | +--------+ + + + [...] admissions packet was manually fa xed to [facility] and to [facility] for karly mathis to start hemodialysis today, [...]
--- OUTSIDE RECORDS SUMMARY | ~2019-05-10 | XMS | Encounter Summary ---
Demographics + + + | Address | [address] | | | [place] [address] | + + + | Home Phone [...] Author | [facility] | | | and [place]aloana | + + + | Organization | [facility] | [...] + | Beverly Perez | ECON | [place] | | | | | [address] | | + + + + + Care Team Providers + +------+ + | Care Painter And Body Mechanic Apprentice Name | Role | Phone | + [...] | | Services | General | ESRD on | Jhoana Flowers, | Xavier I, | | | Required | Surgery | dialysis | DO [address] | , FACS [address] | | | | | ([facility]) | [place], [place] | [address] | | | | | | [address] [place] | [place], | | | | | | [place], [place] | [place] [address] | | | | | | [address] | Phone: | | | | | | Phone: | [phone] | | | | | | [phone] | Fax: | | | | | | Fax: | [phone] | | | | | | [phone] | | +--------+ + + + + + Encounter Details +--------+ + + + + | Date | Type | Department | Care Team | Description | +--------+ + + + + | 10/20/ | Orders Only | [facility] | Jhoana Barreto | ESRD on dialysis | | 2018 | | NEPHROLOGY [address] | M, DO [address] | ([facility]) (Primary Dx) | | | | [address] | [place] | | | | | [place], [place] | [place], [place] | | | | | [address] | [address] | | | | | [phone] | | | +--------+ + + + [...] of this encounter Plan of Treatment + +---------+--------+ + + | Name | Type | Priori | Associated Diagnoses | Order Schedule | | | | ty | | | + +---------+--------+ + + | VAS Upper Extremity | Imaging | Routin | ESRD on dialysis | Expected: | | Vein Mapping Bilat | | e | ([facility]) | 10/20/2017, Expires: | | | | | | 10/20/2018 | + +---------+--------+ + + + + +--------+ + + | Name | Type | Priori | Associated Diagnoses | Order Schedule | | | | ty | | | + + +--------+ + + | * [facility] General | Outpatient | Routin | ESRD on dialysis | Ordered: 10/20/2017 | | Surgery - AMB | Referral | e | (HCC) | | | Referral | | | | | + + +--------+ + + documented as of this encounter Visit Diagnoses + + | Diagnosis | + + | ESRD on dialysis (HCC) - Primary End stage renal disease | + + documented in this encounter"
--- OUTSIDE RECORDS SUMMARY | ~2019-05-10 | XMS | Encounter Summary ---
Demographics + + + | Address | [address] | | | [place] [address] | + + + | Home Phone [...] Author | [facility] | | | and Laloana | + + + | Organization | [facility] | | | [...] [place] | | | | | [address] | | + + + + + Care Team Providers + +------+ + | Care Skin Carver Name | Role | Phone | + +------+ + PCP | Unavailable | + +------+ + Encounter Details +--------+ + + + + | Date | Type | Department | Care Team | Description | +--------+ + + + + | 04/27/ | Hospital | [facility] | Finesse Roldan J | | | 1984 - | Encounter | [facility] | | | | | | GENERIC CONV 1321 | | | | 06/06/ | | [place], | | | | 1994 | | [place] [address] | | | | | | [phone] | | | +--------+ + + + [...]
--- OUTSIDE RECORDS SUMMARY | ~2019-05-10 | XMS | Encounter Summary ---
Demographics + + + | Address | [address] | | | [place] [address] | + + + | Home Phone | | + + + | Preferred Language | Unknown | + + + | Marital Status | | + + + | Sabianism Affiliation | 1038 | + + + | Race | Unknown | + + + | Ethnic Group | Unknown | + + + Author + + + | Author | [facility] | | | and Laloana | + + + | Organization | [facility] [...] [place] | | | | | [address] | | + + + + + Care Team Providers + +------+ + | Care Volunteer Assistant Name | Role | Phone | [...] | | [address] | [place] | | | | | [place], [place] | [place], [place] | | | | | [address] | [address] | | | | | [phone] | | | +--------+ + + + [...]
--- OUTSIDE RECORDS SUMMARY | ~2019-05-10 | XMS | Encounter Summary ---
Demographics + + + | Address | [address] | | | [place] [address] | + + + | Home Phone | | + + + | Preferred Language | Unknown | + + + | Marital Status | | + + + | Voodoo Affiliation | 1038 | + + + | Race | Unknown | + + + | Ethnic Group | Unknown | + + + Author + + + | Author | [facility] | | | and Laloana | + + + | Organization | [facility] | | [...] [place] | | | | | [address] | | + + + + + Care Team Providers + +------+ + | Care Roll Table Operator Name | Role | Phone | [...] | NEPHROLOGY [address] | [address] | injury) ([facility]) | | | | [address] | [address] [place] | (Primary Dx); | | | | [place], [place] | [place] [address] | Hyperphosphatemia | | | | [address] | [phone] | | | | | [phone] | | | +--------+ + + + [...]
--- OUTSIDE RECORDS SUMMARY | ~2019-05-10 | XMS | Encounter Summary ---
Demographics + + + | Address | [address] | | | [place] [address] | + + + | Home Phone | | + + + | Preferred Language | Unknown | + + + | Marital Status | | + + + | Oriental Orthodox Affiliation | 1038 | + + + | Race | Unknown | + + + | Ethnic Group | Unknown | + + + Author + + + | Author | [facility] | | | and [place]aloana | + + + | Organization | [facility] | [...] [place] | | | | | [address] | | + + + + + Care Team Providers + +------+ + | Care Fixture Builder Name | Role | Phone | + [...] + | 07/22/ | Telephone | [facility] | Unknown, Doctor | T[facility] - Hosp FU | | 2019 | | [facility] | | | | | | [address] | (Fax) | | | | | [place] | | | | | | [address] | | | | | | [phone] | | | +--------+ + + + [...]
--- OUTSIDE RECORDS SUMMARY | ~2019-05-10 | XMS | Encounter Summary ---
Demographics + + + | Address | [address] | | | [place] [address] | + + + | Home Phone | | + + + | Preferred Language | Unknown | + + + | Marital Status | | + + + | Jain Affiliation | 1038 | + + + | Race | Unknown | + + + | Ethnic Group | Unknown | + + + Author + + + | Author | [facility] | | | and [place]aloana | + + + | Organization | [facility] [...] + | Beverly Perez | ECON | [place] | | | | | [address] | | + + + + + Care Team Providers + +------+ + | Care Pump Erector Name | Role | Phone | + [...] | and Oncology | TTP | Carina BATTERY CHARGER TESTER | Emerson | | | Required | | (thrombotic | [address] | MD Jason | | | | | thrombocytop | [address] [place] | [address] | | | | | enic | [place], [place] | [place], | | | | | purpura) | [address] | [place] [address] | | | | | (HCC) | Phone: | Phone: | | | | | | [phone] | [phone] | | | | | | Fax: | Fax: | | | | | | [phone] | [phone] | +--------+ + + + + + [...] Referral | | 2017 | | MEDICINE [facility] | [address] | | | | | [address] | [place], [place] | | | | | [place], [place] | [address] | | | | | [address] | | | | | | [phone] | | | +--------+ + + + [...]
--- OUTSIDE RECORDS SUMMARY | ~2019-05-10 | XMS | Encounter Summary ---
Demographics + + + | Address | [address] | | | [place] [address] | + + + | Home Phone [...] | Author | [facility] | | | and Laloana | + + + | Organization | [facility] | | | and Laloana [...] + | Beverly Berrying | ECON | [place] | | | | | [address] | | + + + + + Care Team Providers + +------+ + | Care Director Of Education Name | Role | Phone | [...] NEPHROLOGY [address] | M, DO [address] | disease), stage IV | | | | [address] | [place] | ([facility]) | | | | [place], [place] | [place], [place] | | | | | [address] | [address] | | | | | [phone] | | | +--------+ + + + [...]
--- OUTSIDE RECORDS SUMMARY | ~2019-05-10 | XMS | Clinical Summary ---
Demographics + + + | Address | [address] | | | [place] [address] | + + + | Home Phone [...] | Author | [facility] | | | and [place]aloana | + + + | Organization | [facility] [...] [place] | | | | | [address] | | + + + + + Care Team Providers + +------+ + | Care Pen Or Pencil Assembly Machine Operator Name | Role | Phone [...] | | ([facility]) | | | | | | [...] | | + + +---------+---+------+---+-------+ | B Sfwgorm-L-Qervb | Take 1 Tab by mouth. | [...] + + + + | Overview: 07/17/2017 [facility] | + + + + [...] + | Sister | | | Acute [place] | + +------+ + + | Sister [...] +--------+ +---------+--------+ | MEDICARE | MEDICA | [id number] | 02/06/20 | [phone] | | Medica | | | RE | | 18-Pre | 5 | | re | | | PART A | | sent | | | | | | AND B | | | | | | + +--------+ +--------+ +---------+--------+ | [employer] | MODA | [id number] | | [phone] | | Medica | | MEDICAID HMO | HEALTH | | 019-Pr | 1 | | id | | | MDCD | | esent | | | | | | [place] | | | | | | + +--------+ +--------+ +---------+--------+ | [employer] | MODA | [id number] | | [phone] | | Medica | | MEDICAID HMO [...] | 1979 | [id number] | [place] [address] | | | carley | | | 2 (Home) | | + +--------+ +--------+ + + | Aurea Perez | Person | Self | [birth year] | [address] | | | al/Fam | | 1979 | [id number] | [place] [address] | | | carley | | | 2 (Home) | | + +--------+ +--------+ + + Advance Directives + + + + + | Type | Date Recorded | Patient | Explanation | | | | Distribution Superintendent | | + + + + + | Power of | | | | | Bi Data Modeler | | | | + + + [...]
--- OUTSIDE RECORDS SUMMARY | ~2019-05-10 | XMS | Encounter Summary ---
Demographics + + + | Address | [address] | | | [place] [address] | + + + | Home Phone [...] Author | [facility] | | | and [place]aloana | + + + | Organization | [facility] [...] + | Beverly Perez | ECON | [place] | | | | | [address] | | + + + + + Care Team Providers + +------+ + | Care Slip Cover Sewer Name | Role | Phone | + [...] | | | | | injury) | [place] | [place], [place] | | | | | ([facility]) | [address] [place] | [address] [place] | | | | | Procedures | [place], [place] | [place], [place] | | | | | [place] OFFICE | [address] | [address] Phone: | | | | | OUTPATIENT | Phone: | [phone] | | | | | VISIT 25 | [phone] | Fax: | | | | | MINUTES | Fax: | [phone] | | | | | | [phone] | | +--------+--------+ + + + + [...] | | [address] | [place], [address] | (Primary Dx); | | | | [place], [place] | [place] | Essential | | | | [address] | [address] | hypertension, | | | | [phone] | | malignant; HUS | | | [...] pleasant, 37 YOWF who was DC'd from [facility] on 09/17/17 with o liguric AUNG, dialysis [...] Barreto DO Medication Sig Dispense Refill B Sdnvyqf-I-Sfykr Acid (RENAL-KIT) 0.8 MG TABS Take 1 [...] is administered at an infusion clinic in [facility]]. 180.04 mL furosemide (LASIX) 40 mg tablet [...] iron profile and adequacy next month. : [facility], FACS Nadir Lew MD, Hem/Onc, [facility] documented in thi s encounter Plan of [...]
--- OUTSIDE RECORDS SUMMARY | ~2019-05-10 | XMS | Encounter Summary ---
Demographics + + + | Address | [address] | | | [place] [address] | + + + | Home Phone [...] + | Author | [facility] | | | and Laloana | + + + | Organization | [facility] | | | and [...] [place] | | | | | [address] | | + + + + + Care Team Providers + +------+ + | Care Animal Husbandry Professor Name | Role | Phone | + +------+ + PCP | Unavailable | + +------+ + Encounter Details +--------+ + + + + | Date | Type | Department | Care Team | Description | +--------+ + + + + | 07/16/ | Hospital | [facility] | Aldo Cristobal MD | Acute renal | | 2018 - | Encounter | PROGRAM TECHNICIAN ONCOLOGY [address] | [address] | insufficiency; | | | | [place], | [address] [place], | Cardiomyopathy, | | 07/22/ | | [place] [address] | [place] [address] | unspecified type | | 2018 | | [phone] | [phone] | ([facility]); Intrauterine | | | | | | ; | | | | | | Methamphetamine use; | | | | | | AUNG (acute kidney | | | | | | injury) ([facility]); | | | | | | Uncontrolled | | | | | | hypertension; | | | | | | 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 This is no longer patient's PMD. She is trying to establish care with PMD and manager winter at home. Consultations: OBgyn Nephrology Critical Care Team Principal Diagnosis: Hypertensive crisis and AUNG in setting of Hospital Events 07/03: Pt admitted to [facility] in [place] and was found to have plts of 77, hct of 24 , business banker 2.1 (0.8 in 2017). She was intubated on 07/06 and transferred to [facility] with hypertensive crisis, anemia, thrombocytopenia, abnormal LFTs and AUNG, resp fa ilmarino, ETT. She was treated with prednisone, plasmapheresis and eculizumab for concerns for TTP/HUS, HELLP. Renal biopsy done 07/09 showing global glomerular sclerosis, extensive inter stitial fibrosis and thrombotic microantiopathy. Negative [id number], diagnosis of atypical H US TTP felt [...] follow up with a primary doctor and manager winter (kidney doct or) and OB when you [...] prior h/o preeclampsia who was admitted to [facility] on 07/16 for termination of her at [...] at this time Improvement in her BP Historian Research Assistant: 4.3--4.2--3.7--3.5--3.2--3.1 Lasix changed to po, given a [...] (07/17-07/19), started on coreg 07/18 Hypotension in nicu rn 07/19 with marked improvement in her BP [...] get depoprovera prior to d/c home-ordered by [facility] Pt should f/u with OB in [place] for tubal and follow-up Will let pt know that she may have increased vaginal bleeding 10-14 days post-termination ( 07/27-07/31) lasting approx 2 days, if increased significantly she should be seen by OB in [facility]. Per patient, family is now aware [...] establi sh care with a PMD and manager winter. Goals of Care: N/A Discharge Medications: Current [...] DEVAUGHN RIZVI Dictated: 07/17/2017 2:23 AM Job: [id number] Lab results (within last 13 months/80hours) 07/22/17 [...] follow up with a primary doctor and manager winter (kidney doc tor) and OB when you [...] 170 You should f/u with OB in [place] for tubal ligation and follow-up. It is critically imp ortant to your health that you not become again. Discharge Coordination: Disposition: home. Time spent on discharge coordination: 45 minutes Nisha Licona MD [facility] Medicine Office Quality Metrics: Telemetry on day of discharge: Patient is not currently on telemetry CC: Erik Flor Phone number [phone] Fax number [phone] Addendum I stressed the importance of strict adherence to her medications. We reviewed them in grea t detail. I faxed them to [facility] at . Pt and her uncle were told later that her insur ance wouldn't cover her medications at [employer] Pt and uncle were [facility] the # [facility] and instructed to call [facility] and have her prescriptions transferred to [facility] [address]. Pt and uncle showed up at [facility] and there were no prescriptions (because they had n't called [facility]). Instead of dealing with this at that time, they got in [place]. They called the nursing station and asked to have her presc riptions called in "to a pharmacy in [place]". I have printed her prescriptions and left [...] 07/23/171413 Date of Service: 07/23/171411 Status: Signed Mental Health Program Director: Nisha Licona MD (Physician) [facility] ([facility]) brief progress note Case discussed with our case checker who has been in contact with patients case checker. CM confirmed that patient got her medications filled in [place] including Nifedipine, Coreg and oxycodone (but not [...] 07/22/171831 Date of Service: 07/22/171831 Status: Signed Mental Health Program Director: Nisha Licona MD (Physician) [facility] ([facility]) brief progress note Addendum I stressed the importance of strict adherence to her medications. We reviewed them in grea t detail. I faxed them to [facility] at . Pt and her uncle were told later that her insur [facility] Pt and uncle were given the # at [employer] and instructed to call [facility] and have her prescriptions transferred to [facility] [address]. Pt and uncle showed up at [facility] and there were no prescriptions (because they had n't called [facility]). Instead of dealing with this at that time, they got in their car [place] pass. They called the nursing station and asked to have her pres riptions called in "to a pharmacy in [place]". I have printed her prescriptions and left [...] she has lef t the [facility] with her prescriptions. Nisha Licona MD 18:32; 07/22/2017 eggy Lopez RN - 07/22/2017 5:11 PM PST Progress Notes by Brianna Lopez RN at 07/22/171710 Author: Brianna Lopez RN Service: (none) Author Type: Registered Nurse Filed: 07/22/171710 Date of Service: 07/22/171710 Status: Signed Mental Health Program Director: Brianna Lopez RN (Registered Nurse) NSG Discharge [...] 07/22/171706 Date of Service: 07/22/171705 Status: Signed Mental Health Program Director: Jennifer Melo MD (Physician) Nephrology Note: -Pt [...] De Leon MSW Service: (none) Author Type: Accounting Advisory Services Manager Filed: 07/22/17 1212 Date of Service: 07/22/171205 Status: Signed Mental Health Program Director: Fauzia De Leon MSW (Accounting Advisory Services Manager) Case Management Progress Note 07/22/2017 12:06 Patient Aurea Perez is a 37 y.o. female transferred to [facility] due to medical complications and recommendation for therapeutic termination of . OB SW following for midterm demise. Anticipated D/C Plan: Pt returning to [place] at discharge; per RN, has a abdi jean baptiste with a family or friend Current Clinical Needs: Per MD note, needs to make a PCP appt Discussion: OB OIL PROCESS STILLMAN reviewed chart, consulted with healthcare team, and [...] continue making phone calls related to this. OIL PROCESS STILLMAN inquired about if pt has selected a home. Pt said she has not, and that she wan ts to wait until she gets home to discuss it with her mother. She shared that she has many f amily members buried in [place], but she cannot remember where. She said she or her mother c an be contacted for this decision, and that the phone number on record ([phone]) reache s both of them. Pt then stated she needed to continue making phone calls before offices clos ed for lunch. OB OIL PROCESS STILLMAN to continue to follow up with pt (likely after discharge) to obtain home cho ice. Pt has been given the list of homes, which includes the OB OIL PROCESS STILLMAN contact yajaira BoxSW OIL PROCESS STILLMAN following pt for discharge needs related to selecting a primary care doctor. Case Management Interventions: Case Mgmt Team Interventions: Care coordination;Consult wit h healthcare team;Crisis counseling/emotional support/grief and loss support;Demise counseli ng and coordination [place] of Choice: n/a Medicare Important Message given: Medicare IM given: N/A DAHIANA Delvalle Clinical Accounting Advisory Services Manager Pager: [phone] Alexi Evans MD - 07/22/2017 11:41 AM PSTFormatting of this note might be different from the hamlet ginal. Progress Notes by Nisha Licona MD at 07/22/17 1141 Author: Nisha Licona MD Service: (none) Author Type: Physician Filed: 07/22/17 1144 Date of Service: 07/22/17 114 Status: Addendum Mental Health Program Director: Nisha Licona MD (Physician) Related Notes: Original Note by Nisha Licona MD (Physician) filed at 07/22/17 1143 [facility] ([facility]) brief progress note Pt OK for discharge [...] Date of Service: 07/22/17 1018 Status: Signed Mental Health Program Director: Jessica Cannon RN (Registered Nurse) NSG Shift Summary Patient: uArea Perez AO X 4, VSS. Reporting nausea [...] 07/22/17702 Date of Service: 07/22/17701 Status: Signed Mental Health Program Director: Corrie Whittington RN (Registered Nurse) NSG Shift Summary Patient: Aurea Perez VSS, afebrile Pt A and O x4, anxious at times 1x benadryl ordered for LE pruritis Pain well managed with PRN oxycodone Pt ambulating in halls independently AUO, BA privileges PICC patent, pos blood return Tolerating diet, no n/v Will continue to monitor and offer support Corrie Wihttington RN, 07/22/2017 7:02 AM Raghu Littlejohn MD - 07/21/2017 11:59 PM PSTFormatting of this note might be different from the o riginal. Progress Notes by Raghu Georges MD at 07/21/17 1663 Author: Raghu Georges MD Service: (none) Author Type: Physician Filed: 07/21/17 919 Date of Service: 07/21/17 017 Status: Signed Mental Health Program Director: Raghu Georges MD (Physician) [facility] Hospitalist Group Cross Coverage Note: Called by RN regarding patient requesting benadryl for sleep and le pruritis. 25mg x 1 Po ordered. Raghu Georges MD 23:59; 07/21/2017 Shruthi Forrester RN - 07/21/2017 5:47 PM PSTFormatting of this note might be different from the o riginal. Progress Notes by Shruthi Argueta RN at 07/21/17 5961 Author: Shruthi Argueta RN Service: (none) Author Type: Registered Nurse Filed: 07/21/17 1750 Date of Service: 07/21/171746 Status: Signed Mental Health Program Director: Shruthi Argueta RN (Registered Nurse) [facility] Progress Note Brief Patient: Aurea Perez FYD=[phone]; DBP=72-90; sustained release nifedipine increased dose today, [...] 07/21/171734 Date of Service: 07/21/171728 Status: Signed Mental Health Program Director: Nisha Licona MD (Physician) [facility] Medicine Progress Note Name: Aurea Perez PCP: Erik Flor Location: [address] Day #: 5 Reason for Admission and Continued Stay Pt is a 37 yo woman with h/o meth use, HTN, prior h/o HELLP, prior h/o preeclampsia who was admitted to [facility] on 07/16 for termination of her at 21 weeks due to hypertensive crisis, CM, resp failure requiring intubation and AUNG. PMD: Pt is going to f/u with Dr. Flor, in [facility] Events 07/03: Pt admitted to [facility] in [place] and was found to have plts of 77, hct of 24 , business banker 2.1 (0.8 in 2017). She was intubated on 07/06 and transferred to [facility] with hypertensive crisis, anemia, thrombocytopenia, abnormal LFTs and AUNG, resp fa ilure, ETT. She was treated with prednisone, plasmapheresis and eculizumab for concerns for TTP/HUS, HELLP. Renal biopsy done 07/09 showing global glomerular sclerosis, extensive inter stitial fibrosis and thrombotic microantiopathy. Negative [id number], diagnosis of atypical H US TTP felt [...] at this time Improvement in her BP Historian Research Assistant: 4.3--4.2--3.7--3.5--3.2 Continue with lasix 20 mg IV [...] (07/17-07/19), started on coreg 07/18 Hypotension in nicu rn 07/19 with marked improvement in her BP [...] sodium diet Weight: 63.8--61.1 Termination of 07/17 [facility] has been involved in her care MFM spoke with patient about contraception, pt signed tubal papers, needs to wait at least 30 days Pt should get depoprovera prior to d/c home-ordered by [facility] Pt should f/u with OB in [place] for tubal and follow-up Will let pt know that she may have increased vaginal bleeding 10-14 days post-termination ( 07/27-07/31) lasting approx 2 days, if increased significantly she should be seen by OB in [facility]. Per patient, family is now aware [...] post uterus. Nisha Licona MD Reach via [employer] 7AM to 7PM Call operator lights for cross-cover 7PM to 7AM Time documentation not applicable Jennifer Barton MD - 07/21/2017 3:01 PM PST Progress Notes by Jennifer Melo MD at 07/21/17 1501 Author: Jennifer Melo MD Service: (none) Author Type: Physician Filed: 07/21/17 1600 Date of Service: 07/21/17 1501 Status: Signed Mental Health Program Director: Jennifer Melo MD (Physician) [facility] Progress Note [...] of . Admitted on : 07/16/2017 Primary Sky Cap: None, initial consult, Dr. Pat here Reason [...] benefit from atypical HUS work up with [place] complement panel but will hold off right [...] interval not displayed. No results for input(s): [id number], PTH in the last 9480 hours. Reviewed [...] Tab Oral PRN influenza quadrivalent (Preservative Free) [id number] vaccine (FLUZONE 3YEARS UP) inject ion 60 [...] 07/21/17628 Date of Service: 07/21/17626 Status: Signed Mental Health Program Director: Princess Martina Jean RN (Registered Nurse) NSG Shift Summary Patient: Aurea Perez Alert and oriented. Anxious at times BP 150's/80's/ TN- 70's. Pain well managed with oxycodone. Nausea [...] 07/20/171753 Date of Service: 07/20/171747 Status: Signed Mental Health Program Director: Janeth Matos RN (Registered Nurse) NSG Shift [...] Notes by Nisha Licona MD at 07/20/17 6632 Author: Nisha Licona MD Service: (none) Author Type: Physician Filed: 07/20/17 8329 Date of Service: 07/20/171556 Status: Addendum Mental Health Program Director: Nisha Licona MD (Physician) Related Notes: Original Note by Nisha Licona MD (Physician) filed at 07/20/17 1613 [facility] Medicine Progress Note Name: Aurea KeitaAbelardo Perez PCP: No Doc, No Doc Location: [facility] #: 4 Reason for Admission and Continued Stay Pt is a 37 yo woman with h/o meth use, HTN, prior h/o HELLP, prior h/o preeclampsia who was admitted to [facility] on 07/16 for termination of her at 21 weeks due to hypertensive crisis, CM, resp failure requiring intubation and AUNG. PMD: Pt is going to f/u with Dr. Flor, in [facility] Events 07/03: Pt admitted to [facility] in [place] and was found to have plts of 77, hct of 24 , business banker 2.1 (0.8 in 2017). She was intubated on 07/06 and transferred to [facility] with hypertensive crisis, anemia, thrombocytopenia, abnormal LFTs and AUNG, resp fa ilure, ETT. She was treated with prednisone, plasmapheresis and eculizumab for concerns for TTP/HUS, HELLP. Renal biopsy done 07/09 showing global glomerular sclerosis, extensive inter stitial fibrosis and thrombotic microantiopathy. Negative [id number], diagnosis of atypical H US TTP felt [...] at this time Improvement in her BP Historian Research Assistant: 4.3--4.2--3.7--3.5 Continue with lasix 20 mg IV [...] (07/17-07/19), started on coreg 07/18 Hypotension in nicu rn 07/19 with marked improvement in her BP [...] sodium diet Weight: 63.8--61.1 Termination of 07/17 [facility] has been involved in her care [...] she should be seen by OB in [facility]. Per patient, family is now aware [...] post uterus. Nisha Licona MD Reach via [employer] 7AM to 7PM Call operator lights for cross-cover 7PM to 7AM Time documentation not applicable Jennifer Barton MD - 07/20/2017 1:13 PM PST Progress Notes by Jennifer Melo MD at 07/20/17 1313 Author: Jennifer Melo MD Service: (none) Author Type: Physician Filed: 07/20/17 1316 Date of Service: 07/20/17 131 Status: Signed Mental Health Program Director: Jennifer Melo MD (Physician) [facility] Progress Note [...] of . Admitted on : 07/16/2017 Primary Sky Cap: None, initial consult, Dr. Pat here Reason [...] benefit from atypical HUS work up with [place] complement panel but will hold off right [...] 2.04 2.23 2.21 No results for input(s): [id number], PTH in the last 9480 hours. Reviewed Medications: Current Facility-Administered Medications Medication Dose Route Frequency carvedilol (aka COREG) tablet 25 mg 25 mg Oral Q12H NIFEDipine SUSTAINED release (aka PROCARDIA XL) tablet 30 mg 30 mg Oral DAILY calcium carbonate (aka TUMS) chewable tablet 2 Tab 2 Tab Oral PRN influenza quadrivalent (Preservative Free) [id number] vaccine (FLUZONE 3YEARS UP) inject ion 60 [...] 07/20/17629 Date of Service: 07/20/17628 Status: Signed Mental Health Program Director: Corrie Hawkins RN (Registered Nurse) NSG Shift [...] 0408 Date of Service: 07/19/172038 Status: Addendum Mental Health Program Director: Raghu Georges MD (Physician) Related Notes: Original Note by Raghu Georges MD (Physician) filed at 07/19/17 204 1 [facility] Hospitalist Group Cross Coverage Note: Called by [...] 07/19/171838 Date of Service: 07/19/171837 Status: Signed Mental Health Program Director: Xiomy Lew RN (Registered Nurse) NSG Shift [...] Service: (none) Author Type: Physician Filed: 07/19/17 6359 Date of Service: 07/19/17 135 Status: Signed Mental Health Program Director: Jennifer Melo MD (Physician) [facility] Progress Note [...] of . Admitted on : 07/16/2017 Primary Sky Cap: None, initial consult, Dr. Pat here Reason [...] benefit from atypical HUS work up with [place] complement panel but will hold off right [...] 2.04 2.23 2.21 No results for input(s): [id number], PTH in the last 9480 hours. Reviewed Medications: Current Facility-Administered Medications Medication Dose Route Frequency calcium carbonate (aka TUMS) chewable tablet 2 Tab 2 Tab Oral PRN alum-mag hydroxide-SIMeth 200-200-20 mg/5 mL suspension 30 mL 30 mL Oral Q6H PRN carvedilol (aka COREG) tablet 12.5 mg 12.5 mg Oral Q12H influenza quadrivalent (Preservative Free) [id number] vaccine (FLUZONE 3YEARS UP) inject ion 60 [...] by Jennifer Bearden MSW ([place]) at 07/19/17 1202 Author: Jennifer Bearden MSW (B[place]in) Service: (none) Author Type: Accounting Advisory Services Manager Filed: 07/19/17 1225 Date of Service: 07/19/17 1203 Status: Signed Mental Health Program Director: Jennifer Bearden MSW ([place]) (Accounting Advisory Services Manager) Case Management Progress Note 07/19/2017 12:09 Patient Aurea Perez is a 37 y.o. female transferred to [facility] due to medical complications and recommendation for therapeutic termination of . OB SW following for midterm demise. Anticipated D/C Plan: Pt reports she will likely stay with her mother in [place], [place] onc e discharged from the hospital Current Clinical Needs: Hypotension over night, medication adjustments, demise counseling/ coordination Discussion: OIL PROCESS STILLMAN met with patient to follow up for support and resources regarding her preg duong loss. Pt reports speaking with her mother and states she disclosed the loss last night. She was tearful stating the "the other democrat in this is Ney Hassan and I've [...] about options and declines wanting assistance from OIL PROCESS STILLMAN at this time. She inquired into whether OIL PROCESS STILLMAN could provide her with shoes or an IPad (she used one while o n antepartum). OIL PROCESS STILLMAN informed pt that no shoes are available [...] team;Crisis counseling/emotional support/gri ef and loss support [place] of Choice: N/A Medicare Important Message given: Medicare IM given: N/A Jennifer (Rico) DAHIANA Bearden Alexi Evans MD - 07/19/2017 10:09 AM PSTFormatting of this note might be different from the hamlet larry. Progress Notes by Nisha Licona MD at 07/19/17 1009 Author: Nisha Licona MD Service: (none) Author Type: Physician Filed: 07/19/17 1011 Date of Service: 07/19/17 1009 Status: Signed Mental Health Program Director: Nisha Licona MD (Physician) [facility] ([facility]) brief progress note Case discussed with RN. [...] Service: (none) Author Type: Physician Filed: 07/19/17 4109 Date of Service: 07/19/1751 Status: Signed Mental Health Program Director: Nisha Licona MD (Physician) [facility] Medicine Progress Note Name: Aurea Perez PCP: No Doc, No Doc Location: [address] Day #: 2 Reason for Admission and Continued Stay Pt is a 37 yo woman with h/o meth use, HTN, prior h/o HELLP, prior h/o preeclampsia who was admitted to [facility] on 07/16 for termination of her at 21 weeks due to hypertensive crisis, CM, resp failure requiring intubation and AUNG. Hospital Events 07/03: Pt admitted to [facility] in [place] and was found to have plts of 77, hct of 24 , business banker 2.1 (0.8 in 2017). She was intubated on 07/06 and transferred to [facility] with hypertensive crisis, anemia, thrombocytopenia, abnormal LFTs and AUNG, resp fa ilure, ETT. She was treated with prednisone, plasmapheresis and eculizumab for concerns for TTP/HUS, HELLP. Renal biopsy done 07/09 showing global glomerular sclerosis, extensive inter stitial fibrosis and thrombotic microantiopathy. Negative [id number], diagnosis of atypical H US TTP felt to be less likely so therapy for TTP was discontinued. Pt was transferred to for termination of that it was threatening her life. 07/16/2017 - date of admission to 07/17: Termination of 07/18: Transfer to medical floor, nephrology consult, [facility] consult. Labetalol changed to co reg. 07/19: [...] at this time Improvement in her BP Historian Research Assistant: 4.3--4.2--3.7 Anemia Hct has been low, unclear [...] (07/17-07/19), started on coreg 07/18 Hypotension in nicu rn 07/19 Marked improvement in her BP 07/19 [...] daily Low sodium diet Termination of 07/17 [facility] has been involved in her care [...] post uterus. Nisha Licona MD Reach via [employer] 7AM to 7PM Call operator lights for cross-cover 7PM to 7AM Time documentation not applicable elssunshine, Rhea Leslie N - 07/19/2017 6:42 AM PST Progress Notes by Corrie Hawkins RN at 07/19/17641 Author: Corrie Hawkins RN Service: (none) Author Type: Registered Nurse Filed: 07/19/17643 Date of Service: 07/19/17641 Status: Signed Mental Health Program Director: Corrie Hawkins RN (Registered Nurse) NSG Shift Summary Patient: Aurea Perez [phone] VSS; elevated BP treated with nifedipine q4h [...] 07/19/17546 Date of Service: 07/19/17545 Status: Signed Mental Health Program Director: Ever Moon MD (Physician) [facility] Cross-cover Note: Time: 05:46 Called with hypotension. sbp in 80s. Hr 70s. On nifedipine and coreg. Preeclampsia noted. S he is being diuresed and has peripheral edema. Reduce coreg 25 mg tid to 12.5 mg tid. Rhea Bishop RN - 07/18/2017 10:42 PM PSTFormatting of this note might be different from the origi nal. Progress Notes by Mirna Carl RN at 07/18/17 3140 Author: Mirna Carl RN Service: (none) Author Type: Registered Nurse Filed: 07/18/172241 Date of Service: 07/18/172241 Status: Signed Mental Health Program Director: Mirna Carl RN (Registered Nurse) Afebrile A/Ox4 [...] 07/18/171938 Date of Service: 07/18/171933 Status: Signed Mental Health Program Director: Shruthi Argueta RN (Registered Nurse) NSG Progress [...] sent. SBP= 103-180 range since transfering to [facility]. Coreg and nifedipine given as or dered. Will continue to monitor. Shruthi Argueta RN, 07/18/2017 7:34 PM hristoViry nunez, [facility] - 07/18/2017 4:38 PM PSTFormatting of this note might be different from t bennie original. Progress Notes by Viry Funes MSW at 07/18/178 Author: Viry Funes MSW Service: (none) Author Type: Accounting Advisory Services Manager Filed: 07/18/17 1716 Date of Service: 07/18/178 Status: Addendum Mental Health Program Director: Viry Funes MSW (Accounting Advisory Services Manager) Related Notes: Original Note by Viry Funes MSW (Accounting Advisory Services Manager) filed at [phone] Addendum: SW to follow up for home choice. DAHIANA Fine at 17:16 on 07/18/2017 Case Management - Social Work Assessment Psychosocial Assessment Summary 16:38; 07/18/2017 Patient Aurea Perez is a 37 y.o. female admitted for VTOP due to increased medical need. OB SW following for midterm demise. Presenting Problem and Discussion: OIL PROCESS STILLMAN met with patient multiple times throughout her stay. Patient appeared alert and engaged during this assessment and was able to converse with this poem writer on a variety of subjects. Patient is a and is at [facility] for VTOP given complicated medical needs due to . OB SW involved due to midterm demise. OIL PROCESS STILLMAN introduced self, role and explained reason for visit. Patient remained tangential during this conversation however was able to cover a variety of topics. Patient stated she received a brain injury 4 years ago w hich could relate to some of her process concerns and inability remember some things. She stated she is supported by her family who all live in [place]. Patient then stated that she lives in [place] by herself, however in a later statement [...] need for her current medical situation. Patient OIL PROCESS STILLMAN discussed demise of her baby girl. Patient was able to discuss this situation with OIL PROCESS STILLMAN and appeared to understanding that she would [...] Team Interventions: Care coordination;Consult with healthcare team;Crisis director of counseling ing/emotional support/grief and loss support;Provide resources;Financial/Insurance;Psychosoc ial assessment;Substance abuse assessment Education/Information Provided: OIL PROCESS STILLMAN introduced self, role and explained reason for visit. OIL PROCESS STILLMAN provided grief and loss material including planning after the loss of a child. Plan (including discharge plan): Home with support from family once stable. Patient was attempting to contact family through [employer] since her phone needed to be charged. Extended Psychosocial Assessment Support Systems/Living Situation Address and Phone: Correct on facesheet per patient/patient representative Where did you sleep the night before you were admitted? [facility], higher level of care needed. Support Network: Patient is supported by her mother, sister, and various other family members. Social History Relationship Status: Patient has a SO, not clear on actual relationship status. Cultural/Ethnic/Muslim Background: Patient does not identify any worship or cultural beliefs or practices that would impact her health care or that of her baby/child. Communication: Primary language: Palestinian Fluent in reading? Yes Fluent in writing? Yes Education: Not Assessed Employment: Patient stated she is not allowed to work. 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 Service: N/A Sexually Active:: Patient has just had a baby. IOL, TOP due to increased medical needs. Self-care: Mobility prior to admit: Independent Medication administration BLOCK MAKING MACHINE OPERATOR: Independent Transportation used prior to admit: Family/friend DME and/or supplies at residence BLOCK MAKING MACHINE OPERATOR: None Recreation/leisure: Not Assessed. Is this a [...] currently or historically involved with CPS in [place]. Advance Directive Information Advance directive?: None Advance Directive Offered: AD Booklet given Financial/Insurance: Principle Payors confirmed with patient as: Payor: / Patient has [place] Medicaid, [facility]. Provider One Number (for patients with Medicaid): Patient does not have her medicaid card or know the number. Provided a phone number for patsy bailey ([phone]) however this number is for [facility]. 's Benefits: N/A Additional Assessments: None Patient is being followed by Case Management Provider (Name, Title, Unit, [place]): DAHIANA Fine, [facility] Shruthi Forrester RN - 07/18/2017 2:14 PM PSTFormatting of this note might be different from the o riginal. Progress Notes by Shruthi Argueta RN at 07/18/17 1414 Author: Shruthi Argueta RN Service: (none) Author Type: Registered Nurse Filed: 07/18/17 1414 Date of Service: 07/18/17 141 Status: Signed Mental Health Program Director: Shruthi Argueta RN (Registered Nurse) Hypertensive, given Coreg and nifedipine. MD notified. Will continue to monitor. Angeli Terry RN - 07/18/2017 11:41 AM PSTFormatting of this note might be different fro m the original. Progress Notes by Angeli Prather RN at 07/18/17 1141 Author: Angeli Prather RN Service: (none) Author Type: Registered Nurse Filed: 07/18/17 1302 Date of Service: 07/18/17 1141 Status: Addendum Mental Health Program Director: Angeli Prather RN (Registered Nurse) Related Notes: Original Note by Angeli Prather RN (Registered Nurse) filed at 07/18/17 1144 Care of Pt transferred to the hospitalist Dr. Kenny Lopez. Order for Pt to be transferred to a medical floor. Coordinated with [facility] charge nurse, plan for Pt to transfer to [address] [place] [address] 1100 at noon. Pt with 1 episode of emesis. technical support associate currently in for exam. Angeli Prather RN, [...] Date of Service: 07/18/17 1032 Status: Signed Mental Health Program Director: Angeli Prather RN (Registered Nurse) Pt arrival [...] Date of Service: 07/18/17 1026 Status: Addendum Mental Health Program Director: Rasheeda Gomes MD (Physician) Related Notes: Original [...] insufficiency (creatininie 7 was 0.6-0.8). Transferred to [facility] for IOL given life threatened by pregn lei. This was accomplished 24 hours ago. ADAMTS 13 reportedly negative. 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 Creatinine has been trend ing back up as are LFTs. Working diagnosis is PEC / HELLP. Has not seen nephrology at [facility] US is pending from this am - suspect ascites. Of note she delivered in 2012 with severe HELLP - reports she had a hypoxic brain injury at the time (notes state delivery at [facility] - no records on CareEverywhere ? Differen t name). States baby is doing well. Given Aurea is no longer but continues to have hypertension and renal failure and does not want family to know about I have asked [facility] Medicine to c onsult and assume care. She will be best cared for on a medical floor. Appreciate care. [facility] is available for care - expect [...] 07/18/17922 Date of Service: 07/18/17922 Status: Signed Mental Health Program Director: Antonina Irby RN (Registered Nurse) NSG Transfer [...] 07/18/17823 Date of Service: 07/18/17823 Status: Signed Mental Health Program Director: Mi Barone PT (Physical Therapist) PHYSICAL THERAPY [...] 07/18/17610 Date of Service: 07/18/17605 Status: Addendum Mental Health Program Director: Ruma Yuen RN (Registered Nurse) Related Notes: [...] voids in BR hat appropriately; lochia appears science teacher. S: intact. Lines: R PICC; R HD [...] 07/18/17911 Date of Service: 07/18/1759 Status: Addendum Mental Health Program Director: Mingo Reed MD (Physician) Related Notes: Original [...] Cardiomyopathy (HCC) 07/16/2017 Echo report scanned into [facility] [employer]. LVF 35-40% Acute renal insufficiency 07/16/2017 07/09/17: Renal biopsy thrombotic microangiopathy. Global glomerulosclerosis. Interstitial fi brosis and tubular atrophy. Sent ADAMTS 13 Activity: 130 (range 68-163%) 07/10/17: Plasmapheresis and Eculizamab started. 07/12/17: ACLA IgG negative. ACLA IgA negative. ACLA IgM negative. Complement C3 112 mg/dL. Complement C4 21 mg/dL. Total complement CH50 > 60 Copper 250. Zinc 75 Intrauterine 07/16/2017 labs from [facility]: 06/08/17: A positive. Ab negative. [...] High-Risk Obstetrics Fellow Family Medicine w/ Obstetrics [facility] 06:00 on 07/18/2017 MFM Attending Note I [...] ICU for multisystemic failure, now stable/improving labs. Brendan sumner she will likely transfer to med/surg floor today, suggest with hospitalist/medicine (po stpartum or antepartum are less preferable locations as Ms Perez suffered a loss) in anticipation of discharge home. Contraception remains a remaining obsetetric/field artillery operations specialist concern for Ms Perez who desires BTL. A referral to a field artillery operations specialist provider here can be provided but as she lives in [place], she plans to follow up with her [...] 07/18/17499 Date of Service: 07/18/17449 Status: Signed Mental Health Program Director: Leticia Bonilla RN (Registered Nurse) Went to unit to [facility]. pt, she was resting per her primary RN Stacy, She reported lochia is getting science teacher. Contact info for PP on white board in room. Document Imaging Manager did not find pt's phone list in [...] 07/17/172121 Date of Service: 07/17/172112 Status: Signed Mental Health Program Director: Leticia Bonilla RN (Registered Nurse) Checked in on pt re: PP status, pt very teary, looking for phone numbers and talking about her situation and transfer to [place], "shoes were left in [place]" Listened to pt, will look for paper [...] 07/18/17899 Date of Service: 07/17/171827 Status: Signed Mental Health Program Director: Antonina Irby RN (Registered Nurse) Patient Aurea [...] assess pt throughout the aftern oon. OB OIL PROCESS STILLMAN by to talk to pt, but pt [...] Viry Funes MSW Service: (none) Author Type: Accounting Advisory Services Manager Filed: 07/17/17 1779 Date of Service: 07/17/171702 Status: Signed Mental Health Program Director: Viry Funes MSW (Accounting Advisory Services Manager) Case Management Discharge Planning Assessment 17:03; 07/17/2017 Patient Aurea Perez is a 37 y.o. female admitted due to renal failure, elevated li geo enzymes, cardiomyopathy, and respiratory failure in the midst of 21 week , samira ent has been transferred back to ICU following VTOP. Discussion: OIL PROCESS STILLMAN received consult request due to midterm demise and length of pregnan cy. OIL PROCESS STILLMAN attempted to meet with patient prior to however patient appeared to be in pain , and a second time after her transfer back to the ICU however again patient appeared unable to engage in meaning full conversation due to drowsiness. Patient agreed to meet with SW at a later time, likely 07/18/2017. OIL PROCESS STILLMAN provided her with a home choice packet and disc ussed choosing a home when she was able. She mentioned that her sister r ecently, however did not go in to detail at this time. Patient stated she lives in [place] a nd is not from [place]. She needs size 8 shoes if available. Patient did not wish to hold or see baby at this time, however was interested in mementos. No autopsy. Female infant born at 21w 5d no scores. SW will continue to check in with patient tomorrow to provide additional assessment. Discharge Planning Options Discharge Disposition Options: Home Discharge Support Options: MD follow up;To be determined Plan: OIL PROCESS STILLMAN to continue to offer resources. Resources/Education provided: OIL PROCESS STILLMAN completed chart review, left Planning after the Loss of a Child booklet at bedside. OIL PROCESS STILLMAN provided information on grief and loss support. Interventions: Case Mgmt Team Interventions: Care coordination;Consult with healthcare team;Crisis director of counseling ing/emotional support/grief and loss support;DCA by face [...] admit: Independent DME and/or supplies at residence BLOCK MAKING MACHINE OPERATOR: None Transportation used prior to admit: Family/friend Medication administration BLOCK MAKING MACHINE OPERATOR: Independent PCP: Per chart review No Doc, No Doc Principle Payors: To Be confirmed with patient. Payor: / Primary Contact Information: Extended Emergency Contact Information Primary Emergency Contact: Erik Gordon [facility] Relation: Grandparent Secondary Emergency Contact: None,Per Pt [facility] Relation: None Patient is being followed by Case Management Viry Funes, OIL PROCESS STILLMAN Pager: [phone] [facility] OB Team [employer] Laundry Worker Accounting Advisory Services Manager Avtar Cote MD - 07/17/2017 4:25 PM PSTFormatting of this note might be different from the o riginal. Progress Notes by Valdemar De Los Santos MD at 07/17/17 8418 Author: Valdemar De Los Santos MD Service: (none) Author Type: Physician Filed: 07/17/17 1701 Date of Service: 07/17/17 1625 Status: Signed Mental Health Program Director: Valdemar De Los Santos MD (Physician) [facility] Critical Care Medicine Progress Note Name: Aurea Perez Location: [address] PCP: No Doc, No Doc Hospital [...] has TTP. - no acute indication for KEY FILER - will follow up biopsy - BP [...] - b blockade - will likely need ajnet-I once renal fxn improves Elevated liver enzymes [...] DEVAUGHN RIZVI Dictated: 07/17/2017 2:23 AM Job: [id number] Administrative The patient is critically ill, at risk for imminent organ dysfunction. 35 minutes spent ex clusive of procedures. Body mass index is 22.7 kg/m. Valdemar De Los Santos MD Antonina Pinto RN - 07/17/2017 3:13 PM PST Progress Notes by Antonina Irby RN at 07/17/171512 Author: Antonina Irby RN Service: (none) Author Type: Registered Nurse Filed: 07/17/171512 Date of Service: 07/17/171512 Status: Signed Mental Health Program Director: Antonina Irby RN (Registered Nurse) NSG Arrival [...] Date of Service: 07/17/17 1415 Status: Signed Mental Health Program Director: Chelly Jordan RN (Registered Nurse) Transferred to [...] Date of Service: 07/17/17 1410 Status: Signed Mental Health Program Director: Heather Rendon PT (Physical Therapist) Hold today. Chelly Padilla RN - 07/17/2017 12:53 PM PSTFormatting of this note might be different from th e original. Progress Notes by Chelly Jordan RN at 07/17/17 1253 Author: Chelly Jordan RN Service: (none) Author Type: Registered Nurse Filed: 07/17/17 1356 Date of Service: 07/17/17 1253 Status: Addendum Mental Health Program Director: Chelly Jordan RN (Registered Nurse) Related Notes: [...] Date of Service: 07/17/17 1208 Status: Signed Mental Health Program Director: Chelly Jordan RN (Registered Nurse) 7 laminaria and 1 gauze removed at 1200. SVE at that time 4/100/-2. Pt still getting comfortable s/p epidural. Viry Valero LICSW - 07/17/2017 12:00 PM PSTFormatting of this note might be different from del avery original. Progress Notes by Viry Funes MSW at 07/17/17 1200 Author: Viry Funes MSW Service: (none) Author Type: Accounting Advisory Services Manager Filed: 07/17/17 1204 Date of Service: 07/17/17 1200 Status: Signed Mental Health Program Director: Viry Funes MSW (Accounting Advisory Services Manager) OIL PROCESS STILLMAN spoke to RN regarding potential demise. Attempted to visit patient however patient not currently in a position to proceed with SW consult. OIL PROCESS STILLMAN available via pager to meet with as needed. Can also see in ICU once stable. Please pag e SW once available to meet, available until 1700, 07/17/2017 or tomorrow as well. SW following for ongoing PP needs. Viry Shantel, OIL PROCESS STILLMAN at 12:01 on 07/17/2017 Chelly Padilla RN - 07/17/2017 10:24 AM PSTFormatting of this note might be different from th e original. Progress Notes by Chelly Jordan RN at 07/17/17 1024 Author: Chelly Jordan RN Service: (none) Author Type: Registered Nurse Filed: 07/17/17 1302 Date of Service: 07/17/17 1024 Status: Addendum Mental Health Program Director: Chelly Jordan RN (Registered Nurse) Related Notes: [...] Notes by Christina Espinal MD at 07/17/17 0922 Author: Christina Espinal MD Service: (none) Author Type: Physician Filed: 07/17/1756 Date of Service: 07/17/17952 Status: Signed Mental Health Program Director: Christina Espinal MD (Physician) OB Fellow Progress [...] 07/17/1704 Date of Service: 07/17/17902 Status: Signed Mental Health Program Director: Yessica Weaver RN (Registered Nurse) Break relief complete. OB fellow notified for severe range pressures. Yumi notified and fredy ting return call from fellow. Yessica Weaver RN onver chaz Transaction, Provider Unknown - 07/17/2017 8:39 AM PST Progress Notes by Yessica Weaver, RN at 07/17/17838 Author: Yessica Weaver RN Service: (none) Author Type: Registered Nurse Filed: 07/17/17839 Date of Service: 07/17/17838 Status: Signed Mental Health Program Director: Yessica Weaver, RN (Registered Nurse) Break relief for Yumi Rn. Yessica Wevaer RN Aldo Ireland - 07/17/2017 8:14 AM PST Progress Notes by Aldo Cristobal MD at 07/17/17813 Author: Aldo Cristobal MD Service: (none) Author Type: Physician Filed: 07/17/17825 Date of Service: 07/17/17813 Status: Signed Mental Health Program Director: Aldo Cristobal MD (Physician) [facility] Progress Note L+D Aurea Perez Age/Gender 37 y.o. female Attending Aldo Cristobal MD Performing Aldo T Cristobal [address] PCP No Doc, No Doc Hosp [...] - Cardiology consultation - Echo report from [facility] scanned into [facility] 4. Social disarray/Meth use - SW consultation Aldo Cristobal MD 08:14; 07/17/2017 Chelly Shaw RN - 07/17/2017 7:33 AM PST Progress Notes by Chelly Jordan RN at 07/17/17732 Author: Chelly Jordan RN Service: (none) Author Type: Registered Nurse Filed: 07/17/17734 Date of Service: 07/17/17732 Status: Signed Mental Health Program Director: Chelly Jordan RN (Registered Nurse) Handoff report received from Mi Caballero RN. Assuming care at this time. Pt sleeping. BP WNL at this time, will continue to monitor closely. Cristobal circulation assistant. Chelly Jordan RN, 07/17/2017 7:35 AM Aldo Ireland - 07/17/2017 3:22 AM PST Progress Notes by Aldo Cristobal MD at 07/17/17321 Author: Aldo Cristobal MD Service: (none) Author Type: Physician Filed: 07/17/17 0326 Date of Service: 07/17/17321 Status: Signed Mental Health Program Director: Aldo Cristobal MD (Physician) [facility] Procedure Note The risks and benefits [...] 07/17/1741 Date of Service: 07/17/1737 Status: Signed Mental Health Program Director: Yaneli Holt RN (Registered Nurse) Shift Summary [...] 07/17/1734 Date of Service: 07/17/1729 Status: Signed Mental Health Program Director: Yaneli Holt RN (Registered Nurse) NSG Transfer [...] Notes by Aldo Cristobal MD at 07/16/17 6706 Author: Aldo Cristobal MD Service: (none) Author Type: Physician Filed: 07/16/17 896 Date of Service: 07/16/172335 Status: Signed Mental Health Program Director: Aldo Cristobal MD (Physician) MFM Brief Note [...] 07/17/178 Date of Service: 07/16/172099 Status: Signed Mental Health Program Director: Yaneli Holt RN (Registered Nurse) NSG Admission Note Patient: Aurea Perez Admission Time and Date: 2044 on 07/17/2017 Patient admitted from: Transfer from another Acute Care Facility to room 659. Patient orientation: to call light to telephone and television to [facility] information to plan for the day Belongings verified with the patient: Yes - see flowsheet Current nursing problems: Blood pressure control, trend labs, OB consult Yaneli Holt, RN, 07/17/2017 12:37 AM Estee Kan, PHOTOGRAPHIC PROCESS SCREEN MAKER - 07/16/2017 5:04 PM PST Progress Notes by Estee Verde at 07/16/171703 Author: Estee Verde Service: (none) Author Type: Stock Shaper Filed: 07/16/171703 Date of Service: 07/16/171703 Status: Signed Mental Health Program Director: Estee Verde (Stock Shaper) Transfer Center Direct Admit Call Summary 07/16/2017 17:04 ID: Aurea Perez; 37 y.o. female Admitting Provider: Valdemar De Los Santos MD Accepting Provider: Valdemar De Los Santos MD Transfer Center Direct Admit Information Form The following patient has been accepted in transfer to [facility]. Transfer Type: IP to IP - Adult Call #: [id number] Patient Information Patient Name: AUREA PEREZ : 1980 Age: 37 years ALERTS: 1)Faxed Agreement: [phone] Gender: Female Weight: Height: MRN (if known): [id number] Chief Complaint/Diagnosis: Diagnosis 1: Hemalytic-uremic syndrome Date of onset: Clinical Info Notes: User Date/Time Subject Message Estee Verde 07/16/2017 16:01 My[phone] 1980DX: Hemalytic-uremic [id number] weeks Sending Provider Dr. David Motta caller Dr. De Los Santos accepted Medications: Devices: Procedures: Procedure Date/Time Notes Referring/Sending Information Referring/Sending Provider: UNLISTED, PROVIDER Referring/Sending Location: [facility] Referring Provider Primary Phone Number: Referring [...] thepatient if not able to push to [employer]. Transportation Detail: Transport Type: Adult - Air [...] Performed At | + + + | [address] [address] | | | Adult Transthoracic | | [...] Diagnosing Physician: | | | Whitney Weldon Boot Turner: Krys Grewal [facility] | | | Procedure performed: Limited Echocardiogram - 09758 RAD#[id number] , | | | Color Flow Imaging - 78334 and | | | Limited Cardiac Doppler - 57888 Study Details: The images | | | [...] Rickie Flannery Conversion - 12/08/2018 12:16 AM [facility] | | [address] | | [place] [address] | | | | | | | [...] | Diagnosing Physician: Whitney Weldon | | Boot Turner: Krys Grewal [facility] | | Procedure performed: Limited Echocardiogram - 99054 RAD#[id number] , Color Flow | | Imaging - 63658 and Limited Cardiac Doppler - 84404 | | Study Details: The images are [...] is | | | accredited by the [employer]. Thank you for | | | this referral. Dictated by: KEREN LEIGH Dictated: | | | 07/18/2017 12:05 PM Job: [id number] | | + + + + + [...] | This facility is accredited by the [employer]. | | | | Thank you for this referral. | | | | | | | | Dictated by: KEREN LEIGH | | Dictated: 07/18/2017 12:05 PM | | Job: [id number] | + + CBC no Differential (07/18/2017 [...] @0040 | | | | | | [id number] [facility] | | | | + + [...] + + + | SURGICAL | CASE: [id number]: | | EXTERNAL | | | | Aurea Perez | | LAB | | | | Pathology Report | | | | | | [id number] FINAL | | | | | | [...] | | | | | | parenchyma: [place], | | | | | | spongy [...] (206) | | | | | | [phone] at | | | | | | [facility], | | | | | | [facility] | | | | | | [address] | | | | | | [address] CLIA#: | | | | | | [id number] | | | | | | 5Microscopic: [...] | | Dictated: 07/17/2017 2:23 AM Job: [id number] | | + + + + + [...] Dictated: 07/17/2017 2:23 AM | | Job: [id number] | + + Lactate Dehydrogenase (07/16/2017 10:01 [...]
--- OUTSIDE RECORDS SUMMARY | ~2019-05-10 | XMS | Encounter Summary ---
Demographics + + + | Address | [address] | | | [place] [address] | + + + | Home Phone [...] | Author | [facility] | | | and aLloana | + + + | Organization | [facility] | | | and Laloana [...] + | Beverly Perez | ECON | [place] | | | | | [address] | | + + + + + Care Team Providers + +------+ + | Care Radio Station Engineer Name | Role | Phone | [...] | | | | | injury) | [place] | [place] | | | | | ([facility]) | [address] [place] | [address] [place] | | | | | Procedures | [place] | [place] | | | | | [place] OFFICE | [address] | [address] Phone: | | | | | OUTPATIENT | Phone: | [phone] | | | | | VISIT 25 | [phone] | Fax: | | | | | MINUTES | Fax: | [phone] | | | | | | [phone] | | +--------+--------+ + + + + Encounter Details +--------+ + + + + | Date | Type | Department | Care Team | Description | +--------+ + + + + | 01/17/ | Off-Site | [facility] | Jhoana Barreto | End stage renal | | 2018 | Visit | NEPHROLOGY [address] | M, DO [address] | disease (HCC) | | | | [address] | [place], [place] [address] | (Primary Dx) | | | | [place], [place] | [place] | | | | | [address] | [address] | | | | | [phone] | | | +--------+ + + + [...] Barreto DO Medication Sig Dispense Refill B Xkphinp-I-Cipov Acid (RENAL-KIT) 0.8 MG TABS Take 1 [...] administered at an infusion clinic in [facility]]. 180.04 mL epoetin ant (EPOGEN, PROCRIT) 10,000 [...] She has been referred to the renal GAME DESIGN INSTRUCTOR on multiple occasions. 3. I encouraged Aurea to maximize her daily intake of high biological value protein. Her current Rx is adequate and it may be related to her home environment, or food choices? 4. I encouraged her that she is doing good job with fluid restriction and her HPO4 control . Will recheck her in one month with lab. : [place] Edwar Gallagher MD, FACS Nadir Lew MD, Hem/Onc, Rigoberto Sharp documented in thi s encounter Plan of Treatment Not on filedocumented as of this encounter Visit Diagnoses + + | Diagnosis | + + | End stage renal disease (HCC) - Primary End stage renal disease | + + documented in this encounter"
--- OUTSIDE RECORDS SUMMARY | ~2019-05-10 | XMS | Encounter Summary ---
Demographics + + + | Address | [address] | | | [place] [address] | + + + | Home Phone [...] Author | [facility] | | | and Laloana | + + + | Organization | [facility] | | | and [...] [place] | | | | | [address] | | + + + + + Care Team Providers + +------+ + | Care Import/Export Administrator Name | Role | Phone | + [...] | | [address] | [place], [place] [address] | | | | | [place], [place] | [place] | | | | | [address] | [address] | | | | | [phone] | | | +--------+ + + + [...]
--- OUTSIDE RECORDS SUMMARY | ~2019-05-10 | XMS | Encounter Summary ---
Demographics + + + | Address | [address] | | | [place] [address] | + + + | Home Phone | | + + + | Preferred Language | Unknown | + + + | Marital Status | | + + + | Anabaptism Affiliation | 1038 | + + + | Race | Unknown | + + + | Ethnic Group | Unknown | + + + Author + + + | Author | [facility] | | | and Laloana | + + + | Organization | [facility] [...] [place] | | | | | [address] | | + + + + + Care Team Providers + +------+ + | Care Applied Research Director Name | Role | Phone | [...] kidney | MD [place] W | [address] | | | | | injury) | [place] | [place], [place] | | | | | ([facility]) | [address] [place] | [address] [place] | | | | | Procedures | [place] | [place] | | | | | [place] OFFICE | [address] | [address] Phone: | | | | | OUTPATIENT | Phone: | [phone] | | | | | VISIT 25 | [phone] | Fax: | | | | | MINUTES | Fax: | [phone] | | | | | | [phone] | | +--------+--------+ + + + + Encounter Details +--------+---------+ + + + | Date | Type | Department | Care Team | Description | +--------+---------+ + + + | 09/01/ | Office | [facility] | Jhoana Barreto | AUNG (acute kidney | | 2018 | Visit | NEPHROLOGY [address] | M, DO [address] | injury) ([facility]) | | | | [address] | [place], [place] [address] | (Primary Dx); | | | | [place], [place] | [place] | Chronic kidney | | | | [address] | [address] | disease, stage V | | | | [phone] | | ([facility]); 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) ([facility]); | | | | | | Substance [...] to 07/06/17 at 20 weeks IUP at [facility] [place], and then, subsequently at [facility] [place]. She received plasmapheresis, IVIG, and a renal core Bx was done on 07/09/2017 at [facility] showed 17 glomeruli all together, findings [...] in conjunction with MFM and Nephrology, at [facility] on 07/17/2017. Her picture , HTN,and hemolysis slowly improved from there. She was readmitted to [facility] form [facility] ER on 07/26 to 07/30 with [...] on renal core Bx on 07/09/2017, at [facility], associated with AUNG as above. 3. She does admit to preeclampsia with her prior to this one. She states that s he was informed not to attempt to conceive again by the managing physicians at that time. 4. Acute CHF, 07/04/17 requiring intubation and loop diuretics. Apparently, an echocardiog alex was done at [facility] on 07/18/17 which shows an LVEF [...] (A) 08/30/2017 ANCA Panel, no reflex Order: [id number] Status: Final result Visible to patient: Yes (MyChart) Next appt: 09/29/2017 at 15:0 0 in [facility] (Carina Dewey, [facility]) Ref Range & Units 1mo ago Myeloperoxidase [...] up testing of positive sera with both RI-3 and MPO-ANCA enzyme immunoassays. As many as 5% serum samples are positive only by EIA. Ref. AM J Clin Pathol 1999;111:507-513. Atypical pANCA Neg:<1:20 titer <1:20 Comments: The atypical pANCA pattern has been observed in a significant percentage of patients with ulcerative colitis, primary sclerosing cholangitis and autoimmune hepatitis. Resulting Agency [facility] Narrative Performed at: - [facility] [id number] Therapeutic Specialist: Mike Rehman MD, Phone: [phone] Specimen Collected: 07/27/17 4:37 Assessment: 1. Subacute [...] C urrently, we have the latter at [facility] but not the former. (1400) I called X-matty Center at [facility], but the there are No beds. I called the X-matty Abhilash ter at [facility] and gave the Hx to Dr. Thomas Chisholm, Hospitalist, and Dr. Christianson, but am aw aiting confirmation that there is a bed. 2. (1636 Hours). No confirmed bed yet from [facility]. Will Admit her for Observation to [facility] until a larger referral center bed can be confirmed. Pt understands this , consents, an d agrees to admission with potential need for X-matty to a Tertiary Center in next 24 Hrs. : Osmel Pat MD, [facility] DO Carina Fontaine MD, FNP documented [...] | e | 2:13 PM | injury) ([facility]) | procedure are in the | | | | PDT | Chronic kidney | results section. | | | | | disease, stage V | | | | | | ([facility]) 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) ([facility]) | | | | | | Substance [...] results section. | | | | | ([facility]) 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) ([facility]) AUNG | | | | | | (acute kidney | | | | | | injury) ([facility]) | | + +--------+ + + + [...] 1.001 - 1.030 | | | | [place], | | | | | | [facility], [...] [address] | [place] | [phone] | | [facility] | | [address] | | | - LABORATORY | | [...]
--- OUTSIDE RECORDS SUMMARY | ~2019-05-10 | XMS | Encounter Summary ---
Demographics + + + | Address | [address] | | | [place] [address] | + + + | Home Phone [...] + + | Author | [facility] | | | and Laloana | + + + | Organization | [facility] | | | and Laloana [...] [place] | | | | | [address] | | + + + + + Care Team Providers + +------+ + | Care Lease Picker Name | Role | Phone | + [...] + | 07/19/ | Telephone | [facility] | Carina Dewey FNP | Care Coordination | | 2019 | | [facility] [place] | [address] | | | | | [address] | [place] | | | | | [place], [place] | [address] | | | | | [address] | | | | | | [phone] | | | +--------+ + + + [...]
--- OUTSIDE RECORDS SUMMARY | ~2019-05-10 | XMS | Encounter Summary ---
Demographics + + + | Address | [address] | | | [place] [address] | + + + | Home Phone | | + + + | Preferred Language | Unknown | + + + | Marital Status | | + + + | Mormonism Affiliation | 1038 | + + + | Race | Unknown | + + + | Ethnic Group | Unknown | + + + Author + + + | Author | [facility] | | | and Laloana | + + + | Organization | [facility] | | | and Laloana | [...] | Beverly Perez | ECON | [place] | | | | | [address] | | + + + + + Care Team Providers + +------+ + | Care Senior Animal Trainer Name | Role | Phone | + [...] | | | | | | | NM AV | | | | | | | ANAST,UP ARM | | | | | | | BASILIC | | | | | | | VEIN | | | | | | | TRANSPOSIT | | | | | | | NM | | | | | | | [...] fistula | | | | [address] | [address] [place] | creation | | | | [place], [place] | [place] [address] | | | | | [address] | [phone] | | | | | [phone] | | | +--------+---------+ + + + [...] Instructions Xavier Gallagher MD, FACS - 01/04/2018[facility] POST-OP INSTRUCTIONS: Arterio-Venous Fistula 1. Keep the [...] + + +---------+ + + | B Ihnjwwz-G-Poazk | Take 1 Tab by mouth. | [...] + + +---------+ + + | B Lcsuwyu-F-Oaiuo | Take 1 tablet by | 30 [...] | | | | | [facility]]. | | | | | + [...] | | | | | ([facility]) | | | | | | + [...] + | [address] | [address] | [place] | [phone] | | [facility] | | [address] | | | - LABORATORY | | [...] [address] | [place] | [phone] | | [facility] | | [address] | | | - LABORATORY | | [...] [address] | [place] | [phone] | | [facility] | | [address] | | | - LABORATORY | | [...] | Basophils | | K/uL | [facility] | | | | [...] | [address] | [place] | [phone] | | [facility] | | [address] | | | - LABORATORY | | [...] (H) | 7 - 18 mg/dL | [facility] | | | | | | [facility] | | | | | | MEDICAL | | | | | | CENTER - | | | | | | LABORATORY | | + + + + + + | Creatinine | 6.41 (H) | 0.60 - 1.30 | [facility] | | | | | mg/dL | [facility] | | | | | | MEDICAL | | | | | | CENTER - | | | | | | LABORATORY | | + + + + + + | eGFR if not | 7 (L)Comment: GLOMERULAR | >=60 | [facility] | | | | FILTRATION | mL/min/1.73m2 | [facility] | | | [facility] | RATE,ESTIMATED | | MEDICAL | | | | mL/min/1.33i0Rxzl than | | CENTER - | | [...] [address] | [place] | [phone] | | [facility] | | [address] | | | - LABORATORY | | [...] | | | Site | | Starting [facility] 01/04/18 at 1936, | | PM PDT [...]
--- OUTSIDE RECORDS SUMMARY | ~2019-05-10 | XMS | Encounter Summary ---
Demographics + + + | Address | [address] | | | [place] [address] | + + + | Home Phone | | + + + | Preferred Language | Unknown | + + + | Marital Status | | + + + | Religion Affiliation | 1038 | + + + | Race | Unknown | + + + | Ethnic Group | Unknown | + + + Author + + + | Author | [facility] | | | and Laloana | + + + | Organization | [facility] | [...] [place] | | | | | [address] | | + + + + + Care Team Providers + +------+ + | Care Political Aide Name | Role | Phone | [...] | [address] | [address] | | | | | [place], [place] | [place], | | | | | [address] | [place] [address] | | | | | [phone] | [phone] | | | | | | | [...]
--- OUTSIDE RECORDS SUMMARY | ~2019-05-10 | XMS | Encounter Summary ---
Demographics + + + | Address | [address] | | | [place] [address] | + + + | Home Phone [...] | [facility] | | | and Laloana | + + + | Organization | [facility] | | [...] [place] | | | | | [address] | | + + + + + Care Team Providers + +------+ + | Care Asphalt Paving Machine Operator Name | Role | Phone | + +------+ + PCP | Unavailable | + +------+ + Encounter Details +--------+ + + + + | Date | Type | Department | Care Team | Description | +--------+ + + + + | 04/01/ | Hospital | [facility] | Conversion | Pain | | 2017 | Encounter | CONVERSION [address] | Transaction, | | | | | [address] | Provider Unknown | | | | | [place], [place] | [phone] | | | | | [address] | | | | | | [phone] | | | +--------+ + + + [...] + + +---------+ + + | B Pwlpkqd-A-Vxszm | Take 1 Tab by mouth. | [...] + + +---------+ + + | B Kmbywij-J-Fgvyn | Take 1 tablet by | 30 [...] | | | | | | | [place] | | | | | | | [facility]]. | | | | | [...] | | | | | | | ([facility]) | | | | | | [...]
--- OUTSIDE RECORDS SUMMARY | ~2019-05-10 | XMS | Encounter Summary ---
Demographics + + + | Address | [address] | | | [place] [address] | + + + | Home Phone | | + + + | Preferred Language | Unknown | + + + | Marital Status | | + + + | Buddhist Affiliation | 1038 | + + + | Race | Unknown | + + + | Ethnic Group | Unknown | + + + Author + + + | Author | [facility] | | | and Laloana | + + + | Organization | [facility] | | | and Laloana [...] [place] | | | | | [address] | | + + + + + Care Team Providers + +------+ + | Care Executive Director Sheltered Workshop Name | Role | Phone | + +------+ + PCP | Unavailable | + +------+ + Encounter Details +--------+ + + + + | Date | Type | Department | Care Team | Description | +--------+ + + + + | 03/27/ | Hospital | [facility] | Tom, | | | 1998 - | Encounter | [facility] | Fauzia Mcgovern MD | | | | | GENERIC CONV [address] | | | | 03/29/ | | [place], | | | | 1999 | | [place] [address] | | | | | | [phone] | | | +--------+ + + + [...]
--- OUTSIDE RECORDS SUMMARY | ~2019-05-10 | XMS | Encounter Summary ---
Demographics + + + | Address | [address] | | | [place] [address] | + + + | Home Phone [...] Author | [facility] | | | and Laloana | + + + | Organization | [facility] | [...] | Beverly Perez | ECON | [place] | | | | | [address] | | + + + + + Care Team Providers + +------+ + | Care Air Defense Artillery Senior Sergeant Name | Role | Phone | + [...] FACS [address] | | | | | ([facility]) | [place], [place] | [address] | | | | | | [address] [place] | [place], | | | | | | [place], [place] | [place] [address] | | | | | | [address] | Phone: | | | | | | Phone: | [phone] | | | | | | [phone] | Fax: | | | | | | Fax: | [phone] | | | | | | [phone] | | +--------+ + + + + + Encounter Details +--------+ + + + + | Date | Type | Department | Care Team | Description | +--------+ + + + + | 10/20/ | Orders Only | [facility] [place] | Jhoana Barreto | ESRD on dialysis | | 2018 | | NEPHROLOGY [address] | M, DO [address] | ([facility]) (Primary Dx) | | | | [address] | [place], [place] [address] | | | | | [place], [place] | [place], [place] | | | | | [address] | [address] | | | | | [phone] | | | +--------+ + + + [...] Vein Mapping Bilat | | e | ([facility]) | 10/20/2017, Expires: | | | | [...]
--- OUTSIDE RECORDS SUMMARY | ~2019-05-10 | XMS | Encounter Summary ---
Demographics + + + | Address | [address] | | | [place] [address] | + + + | Home Phone | | + + + | Preferred Language | Unknown | + + + | Marital Status | | + + + | Confucianist Affiliation | 1038 | + + + | Race | Unknown | + + + | Ethnic Group | Unknown | + + + Author + + + | Author | [facility] | | | and Laloana | + + + | Organization | [facility] | | [...] [place] | | | | | [address] | | + + + + + Care Team Providers + +------+ + | Care Railroad Car Inspector Name | Role | Phone | + +------+ + PCP | Unavailable | + +------+ + Encounter Details +--------+ + + + + | Date | Type | Department | Care Team | Description | +--------+ + + + + | 04/03/ | Hospital | [facility] | Tom, | | | 1999 | Encounter | [facility] | Fauzia Mcgovern MD | | | | | GENERIC CONV [address] | | | | | | [place], | | | | | | [place] [address] | | | | | | [phone] | | | +--------+ + + + [...]
--- OUTSIDE RECORDS SUMMARY | ~2019-05-10 | XMS | Encounter Summary ---
Demographics + + + | Address | [address] | | | [place] [address] | + + + | Home Phone [...] Author | [facility] | | | and Laloana | + + + | Organization | [facility] [...] + | Beverly Perez | ECON | [place] | | | | | [address] | | + + + + + Care Team Providers + +------+ + | Care Campus Chaplain Name | Role | Phone | + [...] + + | 09/01/ | Hospital | [facility] | Jhoana Barreto | SOB (shortness of | | 2018 | Encounter | MED CTR XRAY [address] | M, DO [address] | breath) | | | | [place] | [place] [place] [address] | | | | | [place] [address] | [place], [place] | | | | | [phone] | [address] | | | | | [...]
--- OUTSIDE RECORDS SUMMARY | ~2019-05-10 | XMS | Encounter Summary ---
Demographics + + + | Address | [address] | | | [place] [address] | + + + | Home Phone [...] [facility] | | | and Laloana | + + + | Organization | [facility] [...] + | Beverly Perez | ECON | [place] | | | | | [address] | | + + + + + Care Team Providers + +------+ + | Care Hoisting Engineer Name | Role | Phone | [...] | | | | | injury) | [place] | [place], [place] | | | | | ([facility]) | [address] [place] | [address] [place] | | | | | Procedures | [place], [place] | [place] | | | | | [place] OFFICE | [address] | [address] Phone: | | | | | OUTPATIENT | Phone: | [phone] | | | | | VISIT 25 | [phone] | Fax: | | | | | MINUTES | Fax: | [phone] | | | | | | [phone] | | +--------+--------+ + + + + [...] | | [address] | [place], [place] [address] | (Primary Dx); | | | | [place], [place] | [place] | Essential | | | | [address] | [address] | hypertension, | | | | [phone] | | malignant; Anemia in | | [...] was obtained from the pat ient. Her o[place] AVF works well and the Equistream catheter [...] discharged to home in stable condition. : [facility] [place], [place]. [facility] [place] documented in thi s encounter Plan [...]
--- OUTSIDE RECORDS SUMMARY | ~2019-05-10 | XMS | Encounter Summary ---
Demographics + + + | Address | [address] | | | [place] [address] | + + + | Home Phone [...] + | Author | [facility] | | | and Laloana | + + + | Organization | [facility] | [...] [place] | | | | | [address] | | + + + + + Care Team Providers + +------+ + | Care Frit Maker Name | Role | Phone | [...] + + | 10/01/ | Telephone | [facility] | Carina DeweyZOIE | Lab Results | | 2018 | | [facility] | [address] | | | | | [address] | [place] | | | | | [place] | [address] | | | | | [address] | | | | | | [phone] | | | +--------+ + + + [...]
--- OUTSIDE RECORDS SUMMARY | ~2019-05-10 | XMS | Encounter Summary ---
Demographics + + + | Address | [address] | | | [place] [address] | + + + | Home Phone [...] Author | [facility] | | | and Laloana | + + + | Organization | [facility] | [...] + | Beverly Perez | ECON | [place] | | | | | [address] | | + + + + + Care Team Providers + +------+ + | Care Civil Celebrant Name | Role | Phone | + [...] + + | 07/18/ | Hospital | [facility] | Violetta Urbina | Acute pulmonary | | 2019 - | Encounter | [facility] | M, DO [address] | edema (HCC); | | | | [address] [place] | [address] | Hypertensive | | 07/21/ | | [place] [address] | [place] | urgency, malignant; | | 2019 | | [phone] | [address] | Acute respiratory | | | | | | failure with hypoxia | | | | | | (HCC); End stage | | | | | | renal disease (HCC); | | | | | | 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 | | | | | | renal disease | | | | | | ([facility]); Acute | | | | | | 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 DATE OF DISCHARGE: 07/21/2018. DISCHARGE DIAGNOSES: 1. Recurrent acute pulmonary edema secondary to noncompliance with her dialysis schedule on end-stage renal disease - improved. 2. Hypertensive urgency - improved with ultrafiltration and rastafarian of her medications. 3. End-stage renal disease [...] around 07/08/2018, belia herzog was treated at [facility] in [place], [place]. Apparently, she did not go to her previous d ialysis scheduled treatment 48 hours ago and presented to the ER at [facility] , [place] with acute shortness of breath and was found to be hyperkalemic and in acute pulmonary edema. She was given potassium lowering maneuvers. Weather was very adverse, due to heavy snow, therefore , instead of air ambulance, she was sent by ground ambulance to [facility]. She was placed directly on dialysis with the NxStage device with UF 4 kg. Also, she was starte d on high-dose Lasix/metolazone and had some good urinary output. One of the basic problems has been that she has been intermittently homeless, and she has b een making poor choices. Her urine drug screen at [facility] as well as one done here we re Negative for any evidence of recreational drugs including methamphetamines. After lengthy discussion with the patient and care management, there was discussion with [facility] and they agreed to take her for housing there. The hope was that she could walk one block to the dialysis clinic here and come back for her hemodialysi s treatments Wyxbebb-Kdnpcqgq-Yuwgsyuk and not be relying on transportation. She does have [place] [employer]. The [facility] kindly agreed to provide 7 days of her generic medications until she c ositold make the trip back to the local pharmacy at [facility], as she is homeless and was [...] maintenance dialysis t reatments here at the [facility] in [place]. There has been a waiting list for [facility] [place], [place] and a waiting list in [place], [place]. She understands that the next available facility would either be in [place], [place] or in [place], [place], which would a further commute for her. She verbally agrees to come back on a Skqdlgh-Aaouhchr-Drlwxmyt from the [facility] to come for dialysis sess ions. She clearly understands that she should consume <1000 mL of fluid/day. DISCHARGE DIET: <1000 mL fluid, <60 mEq of K +, <1000 mg P04, high biological value protei n. VIOLETTA URBINA DO Dictated by VIOLETTA URBINA DO 08/04/2018 17:49:54 Transcribed on 08/04/2018 23:48:21 by job# [id number] Confirmation #: [id number] cc: [facility] documented in thi s encounter Discharge Instructions Instructions Violetta Urbina DO - 07/21/20181. Your New Tx time at [facility] are [facility] [place], is at 6:55 AM, on . -Sat. 2. The Clinic is at [address], [address], [place], (the 1st floor of the [facility], next to [place]). You can't miss it. 3. Call Dr. Urbina's Office , , if you have questions. 4. We will request the Pharmacy provide 1 week of your most essential BP meds, until you can gain access to your Insurance Cards for a local Pharmacy. 5. The [facility] will work with you further on retirement planning for Rehab. for your life goals. [...] + + +---------+ + + | B Ijwidpc-A-Hfkif | Take 1 Tab by mouth. | [...] complaint with fluid restrictions at this time. PiperSecondMic from pharmacy gave to pt an d explained. Pt to go to [facility] after discharge. Pt discharge instructions seema hua [...] to the [facility] if they will accept her? BP 123/63 [...] 5. Will work on DC planning. [facility] ioletta Urbina DO - 07/19/2018 6:56 PM PST . [facility] [address] [place] [address] PROGRESS NOTE Pt. Name/Age/: Aurea Perez 38 y.o. 1980 Med. Record Number: [id number] Date of admission: 07/18/2018 NEPHROLOGY HPI - Pt seen at 0830. Her dyspnea are much better. She has a mild VALLEJO, but better vs. yes terday. No photophobia or neck pain. CXR shows marked resolution of her bilateral , IS edema. She is open to [facility] in [place] to be closer to HD. : BP [...] 50/325 mg, Q12H, prn for Headache. [facility] Héctor Kerns MD - 07/18/2018 12:03 PM PST [facility] [place] TH[place]AS[place] HOSPITALIST BRIEF NOTE Patient: Aurea Perez : 1980: Age: 38 y.o. MedRec: [id number] Admission date: 07/18/2018 Hospital day # : 0 Physician author: Héctor Ernandez MD Today: 07/18/2018 Patient seen briefly (requirement to see within approx one hour, her admitting Doc will arr anabelle later) Came in transfer from [facility] with wet lungs needing emergent HD as she had missed her Wednesday HD, last used Meth about a week ago, ETOH last NOC but not daily. VALLEJO (star anupama after NTG gtt) but the gtt is off and HD starting PER Grinder Tender equal Car RRR Lung bilat IC in bases not in distress (she denies having SOB) Abd + BS soft mild non localizing tenderness (she said abd pain and [place] CLINICAL INFORMATICS STRATEGIST) Dr Urbina will be her attending. Héctor Ernandez MD 07/18/2018 12:03 [facility] Dot phrase reference: VSHOSP (VS in table, last 24 hours) MEYLAB (various labs to pull in) DT (date and time) LABRCNTIP[K:3,Na:3 (last 3 sets of labs using potassium and sodium as examples) HGB HCT PLT INR GLU POCGLU Na K BUN CREA, CALCIUM TROPONINI BNP DIGOXIN DDIMERQUANT Portions of this chart may have been created with [employer] voice recognition software. Occasi onal wrong-word or [...] + | Performed at: 01 - [facility] [place] [address], | REFERENCE LAB | | [place], [place] [id number] Brim Curler: Jonah Parekh MD, Phone: | [facility] | | [phone] | | + + + + + + + + | Performing | Address | City/State/Zipcode | Phone Number | | Organization | | | | + + + + + | REFERENCE LAB | [address] | [place] [address] | [phone] | | [facility] | [address] | [place] | [phone] | | [facility] | | [address] | | | - LABORATORY | | [...] [address] | [place] | [phone] | | [facility] | | [address] | | | - LABORATORY | | [...] test | | | | | | ([id number]). | | | | + + + + + + + + | Specimen | + + | Blood | + + + + + | Narrative | Performed At | + + + | Performed at: 01 - [facility] [address], | REFERENCE LAB | | [place], [place] [id number] Brim Curler: Jonah Parekh MD, Phone: | [facility] | | [phone] | | + + + + + + + + | Performing | Address | City/State/Zipcode | Phone Number | | Organization | | | | + + + + + | REFERENCE LAB | [address] | [place] [address] | [phone] | | [facility] | Drive [...] [address] | [place] | [phone] | | [facility] | | [address] | | | - LABORATORY | | [...] mL/min/1.73m2 | [facility] | | | TAJIK | | | MEDICAL | | | [...] ST. | [address] | [place] | [phone] | | [facility] | | [address] | | | - LABORATORY | | [...] ST. | [address] | [place] | [phone] | | [facility] | | [address] | | | - LABORATORY | | [...] | | | | mL/min/1.73m2 | [facility] | | | TAJIK | | | MEDICAL | | | [...] + | [facility] | [address] | [place] | [phone] | | [facility] | | [address] | | | - LABORATORY | | [...] + | [facility] | [address] | [place] | [phone] | | [facility] | | [address] | | | - LABORATORY | | [...] | | | | | | [employer] | | | | | [...] [address] | [place] | [phone] | | [facility] | | [address] | | | - LABORATORY | | [...] [address] | [place] | [phone] | | [facility] | | [address] | | | - LABORATORY | | [...] | | | | | | [employer] | | | | | [...] [address] | [place] | [phone] | | [facility] | | [address] | | | - LABORATORY | | [...] | | | | | Confirmed by PHYLIICA | | | | | | HAROON CARUSO ([id number]) on | | | | | | [...]
--- OUTSIDE RECORDS SUMMARY | ~2019-05-10 | XMS | Encounter Summary ---
Demographics + + + | Address | [address] | | | [place] [address] | + + + | Home Phone [...] Author | [facility] | | | and Laloana | + + + | Organization | [facility] [...] [place] | | | | | [address] | | + + + + + Care Team Providers + +------+ + | Care Vp Global Marketing [employer] Name | Role | Phone | + [...] | | | [birth year]/ | | [place] [address] | | | | 2001 | | [phone] | | | +--------+ + + + [...]
--- OUTSIDE RECORDS SUMMARY | ~2019-05-10 | XMS | Encounter Summary ---
Demographics + + + | Address | [address] | | | [place] [address] | + + + | Home Phone | | + + + | Preferred Language | Unknown | + + + | Marital Status | | + + + | Episcopal Affiliation | 1038 | + + + | Race | Unknown | + + + | Ethnic Group | Unknown | + + + Author + + + | Author | [facility] | | | and [place]aloana | + + + | Organization | [facility] | | | and [place] [...] [place] | | | | | [address] | | + + + + + Care Team Providers + +------+ + | Care Child Custody Evaluator Name | Role | Phone | + [...] | | [address] | [place] | | | | | [place], [place] | [place], [place] | | | | | [address] | [address] | | | | | [phone] | | | +--------+ + + + [...]
--- OUTSIDE RECORDS SUMMARY | ~2019-05-10 | XMS | Encounter Summary ---
Demographics + + + | Address | [address] | | | [place] [address] | + + + | Home Phone [...] | [facility] | | | and [place] | + + + | Organization | [facility] | | | and Laloana [...] + | Beverly Perez | ECON | [place] | | | | | [address] | | + + + + + Care Team Providers + +------+ + | Care Thermite Bomb Loader Name | Role | Phone | [...] | | | | | injury) | [place] | [place] | | | | | ([facility]) | [address] [place] | [address] [place] | | | | | Procedures | [place] | [place] | | | | | DC OFFICE | [address] | [address] Phone: | | | | | OUTPATIENT | Phone: | [phone] | | | | | VISIT 25 | [phone] | Fax: | | | | | MINUTES | Fax: | [phone] | | | | | | [phone] | | +--------+--------+ + + + + Encounter Details +--------+---------+ + + + | Date | Type | Department | Care Team | Description | +--------+---------+ + + + | 08/11/ | Office | [facility] | Jhoana Barreto | AUNG (acute kidney | | 2018 | Visit | NEPHROLOGY [address] | M, DO [address] | injury) ([facility]) | | | | [address] | [place] | (Primary Dx); | | | | [place], [place] | [place] | Hemolysis, elevated | | | | [address] | [address] | liver enzymes, and | | | | [phone] | | low platelet count | | | | | | (HELLP) syndrome in | | | | | | second trimester; | | | | | | 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 She received plasmapheresis, IVIG, and a renal core Bx was done on 07/09/2017 at [facility] showed 17 glomeruli all together, [...] in conjunction with MFM and Nephrology, at [facility] on 07/17/2017. Her picture , HTN,and hemolysis slowly improved from there. She was readmitted to [facility] form [facility] ER on 07/26 to 07/30 with acute [...] Apparently, an echocardiog alex was done at [facility] on 07/18/17 which shows an LVEF = [...] 20 week IUP-- progressing OK per local DIAGNOSTIC RADIOLOGIC TECHNOLOGIST consultants , locally. Plan: 1. Overall, she [...] b ut also the potential for her mentasta GFR to worsened, and that only time [...] 1 mo. at the [facility] Clinic at [place], [place]. She will have a CBC, CMP, [...]
--- OUTSIDE RECORDS SUMMARY | ~2019-05-10 | XMS | Encounter Summary ---
Demographics + + + | Address | [address] | | | [place] [address] | + + + | Home Phone [...] | Author | [facility] | | | and [place] | + + + | Organization | [facility] | | [...] [place] | | | | | [address] | | + + + + + Care Team Providers + +------+ + | Care Regrinder Operator Name | Role | Phone | [...] | | | [address] [place], [place] | [facility], [place] | | | | | [address] | [address] | | | | | [phone] | [phone] | | | | | | | [...]
--- OUTSIDE RECORDS SUMMARY | ~2019-05-10 | XMS | Encounter Summary ---
Demographics + + + | Address | [address] | | | [place] [address] | + + + | Home Phone [...] | Author | [facility] | | | and [place] | + + + | Organization | [facility] | | | and [...] + | Beverly Perez | ECON | [place] | | | | | [address] | | + + + + + Care Team Providers + +------+ + | Care Batch Still Operator Name | Role | Phone | [...] | | [address] | [place] | | | | | [place], [place] | [place], [place] | | | | | [address] | [address] | | | | | [phone] | | | +--------+ + + + [...]
--- OUTSIDE RECORDS SUMMARY | ~2019-05-10 | XMS | Encounter Summary ---
Demographics + + + | Address | [address] | | | [place] [address] | + + + | Home Phone | | + + + | Preferred Language | Unknown | + + + | Marital Status | | + + + | Islam Affiliation | 1038 | + + + | Race | Unknown | + + + | Ethnic Group | Unknown | + + + Author + + + | Author | [facility] | | | and [place] | + + + | Organization | [facility] [...] + | Beverly Perez | ECON | [place] | | | | | [address] | | + + + + + Care Team Providers + +------+ + | Care Instructor Weaving Name | Role | Phone | + [...] | | [address] | [place] | (Primary Dx) | | | | [place], [place] | [place], [place] | | | | | [address] | [address] | | | | | [phone] | | | +--------+ + + + [...]
--- OUTSIDE RECORDS SUMMARY | ~2019-05-10 | XMS | Encounter Summary ---
Demographics + + + | Address | [address] | | | [place] [address] | + + + | Home Phone [...] + | Author | [facility] | | | and [place] | + + + | Organization | [facility] | | | and [...] [place] | | | | | [address] | | + + + + + Care Team Providers + +------+ + | Care Dental Insurance Biller Name | Role | Phone | + [...] | [address] | [place] | | | | | [place], [place] | [place] | | | | | [address] | [address] | | | | | [phone] | | | +--------+ + + + [...]
--- OUTSIDE RECORDS SUMMARY | ~2019-05-10 | XMS | Encounter Summary ---
Demographics + + + | Address | [address] | | | [place] [address] | + + + | Home Phone [...] | Author | [facility] | | | and [place] | + + + | Organization | [facility] [...] [place] | | | | | [address] | | + + + + + Care Team Providers + +------+ + | Care Cop Breaker Name | Role | Phone | + [...] | | [address] | [place] | | | | | [place], [place] | [place], [place] | | | | | [address] | [address] | | | | | [phone] | | | +--------+ + + + [...] nephrosclerosis. She has recently moved to the [facility] [place]. Repor tedly she is staying with her sister in [place]. She has been making all of her [...] by Jhoana Barreto DO. 12/05/18 19:35 CC: [facility], [place] documented in thi s [...]
--- OUTSIDE RECORDS SUMMARY | ~2019-05-10 | XMS | Encounter Summary ---
Demographics + + + | Address | [address] | | | [place] [address] | + + + | Home Phone [...] + | Author | [facility] | | | and [place] | + + + | Organization | [facility] | | | and [...] [place] | | | | | [address] | | + + + + + Care Team Providers + +------+ + | Care Melter Caster Name | Role | Phone | + +------+ + PCP | Unavailable | + +------+ + Encounter Details +--------+ + + + + | Date | Type | Department | Care Team | Description | +--------+ + + + + | 11/22/ | Hospital | [facility] | Physician, Er | | | 1996 | Encounter | [facility] | | | | | | EMERGENCY [address] | | | | | [address] [place] | | | | | | [address] | | | | | | [phone] | | | +--------+ + + + [...]
--- OUTSIDE RECORDS SUMMARY | ~2019-05-10 | XMS | Encounter Summary ---
Demographics + + + | Address | [address] | | | [place] [address] | + + + | Home Phone [...] [facility] | | | and [place] | + + + | Organization | [facility] [...] [place] | | | | | [address] | | + + + + + Care Team Providers + +------+ + | Care Topper Press Operator Automatic Name | Role | Phone | [...] | [address] | [address] | | | | | [place], [place] | [place], | | | | | [address] | [place] [id number] | | | | | [phone] | [phone] | | | | | | | [...]
--- OUTSIDE RECORDS SUMMARY | ~2019-05-10 | XMS | Encounter Summary ---
Demographics + + + | Address | [address] | | | [place] [address] | + + + | Home Phone [...] | [facility] | | | and [place] | + + + | Organization | [facility] | | | [...] + | Beverly Berrying | ECON | [place] | | | | | [address] | | + + + + + Care Team Providers + +------+ + | Care Coverer Name | Role | Phone | + [...] | [address] | [place] | | | | | [place], [place] | [place], [place] | | | | | [address] | [address] | | | | | [phone] | | | +--------+ + + + [...]
--- OUTSIDE RECORDS SUMMARY | ~2019-05-10 | XMS | Encounter Summary ---
Demographics + + + | Address | [address] | | | [place] [address] | + + + | Home Phone | | + + + | Preferred Language | Unknown | + + + | Marital Status | | + + + | Orthodoxy Affiliation | 1038 | + + + | Race | Unknown | + + + | Ethnic Group | Unknown | + + + Author + + + | Author | [facility] | | | and [place] | + + + | Organization | [facility] | | | and [place] | + + + | Address | Unknown | + + + | Phone | Unavailable | + + + Support + + + + + | Name | Relationship | Address | Phone | + + + + + | Erik Biran | ECON | Unknown | | + + + + + | Beverly Berrying | ECON | [place] | | | | | [address] | | + + + + + Care Team Providers + +------+ + | Care Media Buyer Name | Role | Phone | + [...] | [address] | [address] | | | | | [place], [place] | [place], | | | | | [address] | [place] [address] | | | | | [phone] | [phone] | | | | | | | [...]
--- OUTSIDE RECORDS SUMMARY | ~2019-05-10 | XMS | Encounter Summary ---
Demographics + + + | Address | [address] | | | [place] [address] | + + + | Home Phone [...] | [facility] | | | and [place] | + + + | Organization | [facility] | | [...] [place] | | | | | [address] | | + + + + + Care Team Providers + +------+ + | Care Airport Control Operator Name | Role | Phone | [...] [address] | | | | | [place], [place] | [address] [place] | | | | | [address] | [place] [address] | | | | | [phone] | [phone] | | | | | | | [...] eGFR, | 7.1 (A) | 60 - 80,999 | EXTERNAL | | | External | [...]
--- OUTSIDE RECORDS SUMMARY | ~2019-05-10 | XMS | Encounter Summary ---
Demographics + + + | Address | [address] | | | [place] [address] | + + + | Home Phone | | + + + | Preferred Language | Unknown | + + + | Marital Status | | + + + | Mormonism Affiliation | 1038 | + + + | Race | Unknown | + + + | Ethnic Group | Unknown | + + + Author + + + | Author | [facility] | | | and [place] | + + + | Organization | [facility] | | [...] [place] | | | | | [address] | | + + + + + Care Team Providers + +------+ + | Care Spot Welder Line Name | Role | Phone | + [...] + | 10/27/ | Telephone | [facility] | Carina Dewey FNP | Scheduling Issues | | 2018 | | [facility] | [address] | | | | | [address] | [place], [place] | | | | | [place], [place] | [address] | | | | | [address] | | | | | | [phone] | | | +--------+ + + + [...]
--- OUTSIDE RECORDS SUMMARY | ~2019-05-10 | XMS | Encounter Summary ---
Demographics + + + | Address | [address] | | | [place] [address] | + + + | Home Phone [...] | [facility] | | | and [place] | + + + | Organization | [facility] | | | and [...] [place] | | | | | [address] | | + + + + + Care Team Providers + +------+ + | Care Employee Wellness/Fitness Coordinator Name | Role | Phone | [...] + + | 09/29/ | Telephone | [facility] | Carina Dewey FNP | Medication Prior | | 2017 | | [facility] [place] | [address] | Authorization | | | | [address] | [place] | ([employer]) | | | | [place] | [id number] | | | | | [address] | | | | | | [phone] | | | +--------+ + + + [...]
--- OUTSIDE RECORDS SUMMARY | ~2019-05-10 | XMS | Encounter Summary ---
Demographics + + + | Address | [address] | | | [place] [address] | + + + | Home Phone [...] + | Author | [facility] | | | and [place] | + + + | Organization | [facility] | | [...] [place] | | | | | [address] | | + + + + + Care Team Providers + +------+ + | Care Dna Sequencing Associate Name | Role | Phone | + [...] Lefty Gomez Jung, | | | | 1994 | | [place] [address] | | | | | | [phone] | | | +--------+ + + + [...]
--- OUTSIDE RECORDS SUMMARY | ~2019-05-10 | XMS | Encounter Summary ---
Demographics + + + | Address | [address] | | | [place] [address] | + + + | Home Phone [...] [facility] | | | and [place] | + + + | Organization | [facility] | | | and [place] | + + + | Address | [...] [place] | | | | | [address] | | + + + + + Care Team Providers + +------+ + | Care Associate Data Scientist Name | Role | Phone | + [...] + | 09/24/ | Telephone | [facility] | Zuleima CarinaZOIE | Other | | 2017 | | [facility] [place] | [address] | | | | | [address] | [place] | | | | | [place] | [address] | | | | | [address] | | | | | | [phone] | | | +--------+ + + + [...]
[~2019-05-10 03:22] MED LIST changes: +COREG12.5 MG PO
--- OUTSIDE RECORDS SUMMARY | 2019-05-10 03:24 | XMS ---
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 Care History Medical/Surgical 04/06/2019 [facility] - [facility] HAS TRIED TO CONTACT PATIENT- DOES NOT RETURN CALLS. - PATIENT HAS NOT BEEN SEEN BY PCP JOHNNY ANNA SINCE 2009. PATIENT HAS NOT UTILIZED [facility]IC [facility]. - PATIENT DOES HAVE MEDICARE/MEDICAID ALL PRESCRIPTIONS ARE COVERED WITH A PRESCRIPTIONS. - OVER THE COUNTER MEDICATIONS ARE NOT COVERED. - PLEASE CONTACT [facility] -JASIEL- [phone] IF PATIENT IS SEEN DURING THE DAY IN THE ER- [facility] IS TRYING TO CONTACT PATIENT. 07/08/2018 [facility] - IF PATIENT IS SEEN IN THE ED AND IS WILLING TO ACCEPT HELP/SERVICES FOR TREATMENT. PLEASE CONTACT [facility] AND REQUEST TO SPEAK TO ULSISES PLATT [phone]. - [facility] CAN HELP PATIENT WITH TREATMENT RESOURCES AND PLACEMENT. 12/27/2017 [facility] Care Recommendation: This patient has had 5 or more Emergency Department visits in the last 12 months.\T\nbsp; Patient requires education on the scope and purpose of the ED as an acute care provider not a Primary Care Provider and should not be utilized for chronic conditions.\T\nbsp; If patient returns to ED please contact Community Health WorkerJasiel at [phone]. These are guidelines and the provider should exercise clinical judgment when providing care. E.D. VISIT COUNT (12 MO.) 7 [facility]. TOTAL 7 NOTE: Visits indicate total known visits. 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 - Encntr for surgical aftcr fol surgery on the skin, subcu - Allergy status to narcotic agent status - Cutaneous abscess of back [any part, except buttock] - Nicotine dependence, unspecified, uncomplicated - Allergy status to oth drug/meds/biol subst status - Essential (primary) hypertension 04/06/2019 11:16 [facility] [place] TYPE: Emergency COMPLAINT: - HEAD WOUND DIAGNOSES: - Nicotine dependence, unspecified, uncomplicated - Chronic kidney disease, unspecified - Anemia, unspecified - Allergy status to narcotic agent status - Cutaneous abscess of neck - Allergy status to oth drug/meds/biol subst status - 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 - 1 Hypertensive chronic kidney disease w stg 1-4/unsp chr kdny - Cutaneous abscess of abdominal wall 04/05/2019 02:07 [facility] [place] TYPE: Emergency COMPLAINT: - SKIN PROBLEM/PAIN DIAGNOSES: - Cellulitis of head [any part, except face] - Allergy status to oth drug/meds/biol subst status - 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 - Essential (primary) hypertension - Malingerer [conscious simulation] - Nicotine dependence, unspecified, uncomplicated - Allergy status to narcotic agent status 04/04/2019 19:06 [facility] [place] TYPE: Emergency COMPLAINT: - SKIN PROBLEM DIAGNOSES: - Allergy status to oth drug/meds/biol subst status - 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 - Cellulitis of head [...] status to narcotic agent status - 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 - Dependence on renal dialysis - 1 Hyp hrt and chr kdny dis w/o hrt fail, w stg 5 chr kdny/ESR 07/08/2018 00:11 [facility] [place] TYPE: Emergency COMPLAINT: - SOB DIAGNOSES: - 1 Hypertensive chronic kidney disease w stg 1-4/unsp chr kdny - 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 [place] TYPE: Surgical Services DIAGNOSES: - Hypertension secondary [...] fail - Chronic pulmonary edema 07/08/2018 05:44 [facility] TYPE: General Medicine DIAGNOSES: - pulmonary edema [email or web address]
[2019-05-10] MEDS ORDERED: LEVALBUTEROL TA15 GM INH (03:44)
== END 2019-05-10 05:45 | disposition short-term general hospital (02) ==
LOC: ED 03:22
DX: J81.1 Chronic pulmonary edema (principal); I12.0 Hypertensive chronic kidney disease with stage 5 chronic kidney disease or end stage renal disease; N18.6 End stage renal disease; Z99.2 Dependence on renal dialysis; Z91.14 Patient's other noncompliance with medication regimen; F17.200 Nicotine dependence, unspecified, uncomplicated; Z88.8 Allergy status to other drugs, medicaments and biological substances; Z88.5 Allergy status to narcotic agent; Z79.899 Other long term (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
CPT/HCPCS: 36600; 71045; 80053; 82803; 83880; 85025; 94660; 96374; 96375; 99285-25; J2060

== ENCOUNTER 2019-08-22 21:19 | Emergency (ER) | payer MEDICARE, OTHER ==
[~2019-08-22 21:19] MED LIST changes: +LEVALBUTEROL TA15 GM INH; +LISINOPRIL10 MG PO
--- OUTSIDE RECORDS SUMMARY | 2019-08-22 21:24 | XMS ---
PreManage Notification: DANGELO POWER Security Assistant Manager Bilingual Events No recent Security Events currently on file CRITERIA MET - Group Notification - 6 ED Visits in 6 Months - [facility] - Has Care Guidelines CARE PROVIDERS LLUVIA STEPHENS Nurse Practitioner: Family Current PHONE: [phone] JOHNNY ANNA Physician 12/27/2017-Current PHONE: [phone] JOHNNY ANNA Primary Care Current PHONE: [phone] Faye has no Care Guidelines for this patient. Care History Medical/Surgical 04/06/2019 [facility] - CHW HAS TRIED TO CONTACT PATIENT- DOES NOT RETURN CALLS. - PATIENT HAS NOT BEEN SEEN BY PCP JOHNNY ANNA SINCE 2009. PATIENT HAS NOT UTILIZED [facility] IN CLINIC SERVICES. - PATIENT DOES HAVE MEDICARE/MEDICAID ALL PRESCRIPTIONS ARE COVERED WITH A PRESCRIPTIONS. - OVER THE COUNTER MEDICATIONS ARE NOT COVERED. - PLEASE CONTACT RAYMOND PAL- [phone] IF PATIENT IS SEEN DURING THE DAY IN THE ER- CHW IS TRYING TO CONTACT PATIENT. 07/08/2018 [facility] - IF PATIENT IS SEEN IN THE ED AND IS WILLING TO ACCEPT HELP/SERVICES FOR TREATMENT. PLEASE CONTACT [facility] AND REQUEST TO SPEAK TO ULISSES PLATT [phone]. - [facility] CAN HELP PATIENT WITH TREATMENT RESOURCES AND PLACEMENT. 12/27/2017 [facility] Care Recommendation: This patient has had 5 or more Emergency Department visits in the last 12 months.\T\nbsp; Patient requires education on the scope and purpose of the ED as an acute care provider not a Primary Care Provider and should not be utilized for chronic conditions.\T\nbsp; If patient returns to ED please contact Community Health WorkerMi at [phone]. These are guidelines and the provider should exercise clinical judgment when providing care. E.D. VISIT COUNT (12 MO.) 1 [facility] 1 [facility] 7 [facility]. TOTAL 9 NOTE: Visits indicate total known visits. ED/UCC VISIT TRACKING (12 MO.) 08/22/2019 21:21 [facility] TYPE: Emergency COMPLAINT: - SOB/FATIGUE/COUGH [facility]2019 [facility] TYPE: Emergency DIAGNOSES: - Dependence on renal dialysis - End stage renal disease - Respiratory Distress - Acute pulmonary edema - Shortness of Breath 05/26/2019 04:05 [facility] TYPE: Emergency COMPLAINT: - SOB DIAGNOSES: - Patient's noncompliance with renal dialysis - Allergy status to narcotic agent status - Chronic pulmonary edema - Shortness of breath - Dependence on renal dialysis - Allergy status to oth drug/meds/biol subst status - End stage renal disease - Nicotine dependence, unspecified, uncomplicated - Other long wall shear operator (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 - 1 Hyp chr kidney disease w stage 5 chr kidney disease or ESRD 05/11/2019 20:39 [facility] Laura STERN TYPE: Emergency DIAGNOSES: - End stage renal disease - Patient needs to be re-evaluated to be admitted as an inpatient - Medical Problem (Re-evaluation) 05/10/2019 03:23 [facility] [place] TYPE: Emergency COMPLAINT: - SOB DIAGNOSES: - End stage renal disease - Shortness of breath - 1 Hyp chr kidney disease w stage 5 chr kidney disease or ESRD - Patient's other noncompliance with medication regimen - Dependence on renal dialysis - Allergy status to oth drug/meds/biol subst status - Nicotine dependence, unspecified, uncomplicated - Allergy status to narcotic agent status - Chronic pulmonary edema - Other custodial (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 04/08/2019 13:15 [facility] [place] TYPE: Emergency COMPLAINT: - RECHECK DIAGNOSES: - Other long wall shear operator (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 - Encntr for [...] to oth drug/meds/biol subst status - Other long wall shear operator (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 - 1 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 - Cutaneous abscess of abdominal wall 04/05/2019 02:07 [facility] [place] TYPE: Emergency COMPLAINT: - SKIN PROBLEM/PAIN DIAGNOSES: - Cellulitis of head [any part, except face] - Allergy status to oth drug/meds/biol subst status - Other long wall shear operator (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 - Essential (primary) hypertension - Malingerer [conscious simulation] - Nicotine dependence, unspecified, uncomplicated - Allergy status to narcotic agent status 04/04/2019 19:06 [facility] [place] TYPE: Emergency COMPLAINT: - SKIN PROBLEM DIAGNOSES: - Allergy status to oth drug/meds/biol subst status - Other custodial (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 - Cellulitis of head [any part, except face] - Allergy status to narcotic agent status - Essential (primary) hypertension INPATIENT VISIT TRACKING (12 MO.) [facility]2019 [facility] TYPE: Internal [facility] DIAGNOSES: - Acute pulmonary edema - Dependence on renal dialysis - End stage renal disease - Other specified disorders of kidney and ureter - Hypertension secondary to other renal disorders - Acute respiratory distress 05/10/2019 06:51 [facility] Laura STERN TYPE: Surgical Services DIAGNOSES: - Hypertensive urgency - End stage renal disease - Anemia in chronic kidney disease - Acute respiratory failure with hypoxia - Acute pulmonary edema - Chronic pulmonary edema [email or web address]
== END 2019-08-22 21:34 | disposition left against medical advice (07) ==
LOC: ED 21:19
DX: Z53.21 Procedure and treatment not carried out due to patient leaving prior to being seen by health care provider (principal)

== ENCOUNTER 2019-11-27 23:42 | Emergency (ER) | payer MEDICARE, OTHER ==
[~2019-11-27] VITALS: Ht 167.6 cm; Wt 41.0 kg
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
--- NOTE | 2019-11-28 15:31 | EKG ---
[facility] [address] [address] [facility] [place] [address] Signed Normal sinus rhythm Possible Left atrial enlargement Left ventricular hypertrophy Prolonged QT Abnormal ECG When compared with ECG of 26-MAY-2019 04:24, Sinus rhythm has replaced Wide QRS tachycardia Confirmed by ANTHONY WILDE MD ([id number]) on 11/28/2019 3:31:36 PM Electronically Signed By: ANTHONY WILDE MD 11/28/19 1531 PATIENT NAME: DANGELO POWER Electrocardiogram DATE OF : 78 PHYSICIAN: ANTHONY WILDE MD REPORT #: [id number] REPORT IS CONFIDENTIAL AND NOT TO BE RELEASED WITHOUT AUTHORIZATION
== END 2019-11-28 08:01 | disposition short-term general hospital (02) ==
LOC: ED 23:42
DX: I16.0 Hypertensive urgency (principal); J81.1 Chronic pulmonary edema; I10 Essential (primary) hypertension; F17.200 Nicotine dependence, unspecified, uncomplicated; Z88.5 Allergy status to narcotic agent; Z88.8 Allergy status to other drugs, medicaments and biological substances; Z79.899 Other long term (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
CPT/HCPCS: 71045; 80053; 85025; 93005; 93010; 94660; 96374; 96375; 99285-25; J0360; J1940; J2060; J2405

== ENCOUNTER 2020-05-11 01:29 | Emergency (ER) | payer MEDICARE, OTHER ==
[~2020-05-11] VITALS: Ht 167.6 cm; Wt 47.6 kg
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
== END 2020-05-11 08:17 | disposition short-term general hospital (02) ==
LOC: ED 01:29
DX: J81.1 Chronic pulmonary edema (principal); I12.9 Hypertensive chronic kidney disease with stage 1 through stage 4 chronic kidney disease, or unspecified chronic kidney disease; N18.9 Chronic kidney disease, unspecified; I10 Essential (primary) hypertension; F17.200 Nicotine dependence, unspecified, uncomplicated; Z88.5 Allergy status to narcotic agent; Z88.8 Allergy status to other drugs, medicaments and biological substances; Z79.899 Other long term (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
CPT/HCPCS: 71045; 80053; 83735; 83880; 84484; 84703; 85025; 93005; 93010; 94660; 96374; 96375; 99285-25; C9803; J1170; J1940; J2405; U0003

== ENCOUNTER → 2020-05-30 | Emergency (ER) | payer MEDICARE, OTHER ==
[~2020-05-30] VITALS: Ht 167.6 cm; Wt 47.6 kg
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
== END ==
LOC: ED 04:57
DX: J81.1 Chronic pulmonary edema (principal); I10 Essential (primary) hypertension; F17.200 Nicotine dependence, unspecified, uncomplicated; Z88.5 Allergy status to narcotic agent; Z88.8 Allergy status to other drugs, medicaments and biological substances; Z79.899 Other long term (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
CPT/HCPCS: 71045; 80053; 85025; 94660; 96374; 96375; 99285-25; J1940; J2060

== ENCOUNTER 2020-06-09 13:29 | Emergency (ER) | payer MEDICARE, OTHER ==
[~2020-06-09] VITALS: Ht 167.6 cm; Wt 47.8 kg
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
== END 2020-06-09 16:30 | disposition short-term general hospital (02) ==
LOC: ED 13:29
DX: J96.90 Respiratory failure, unspecified, unspecified whether with hypoxia or hypercapnia (principal); I50.9 Heart failure, unspecified; N18.6 End stage renal disease; I13.2 Hypertensive heart and chronic kidney disease with heart failure and with stage 5 chronic kidney disease, or end stage renal disease; F17.200 Nicotine dependence, unspecified, uncomplicated; Z88.5 Allergy status to narcotic agent; Z88.8 Allergy status to other drugs, medicaments and biological substances; Z79.899 Other long term (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
CPT/HCPCS: 31500; 36600; 51702; 71045; 80053; 82803; 83735; 83880; 84484; 85025; 93005; 93010; 94002; 94660; 94799; 99291; J0330; J1940; J2704

== ENCOUNTER 2020-06-29 03:10 | Emergency (ER) | payer MEDICARE, OTHER ==
[~2020-06-29] VITALS: Ht 167.6 cm; Wt 47.6 kg
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
== END 2020-06-29 09:07 | disposition short-term general hospital (02) ==
LOC: ED 03:10
DX: J81.1 Chronic pulmonary edema (principal); E87.70 Fluid overload, unspecified; N18.6 End stage renal disease; Z99.2 Dependence on renal dialysis; Z20.822 Contact with and (suspected) exposure to COVID-19; I10 Essential (primary) hypertension; F17.200 Nicotine dependence, unspecified, uncomplicated; Z88.5 Allergy status to narcotic agent; Z88.8 Allergy status to other drugs, medicaments and biological substances; Z79.899 Other long term (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
CPT/HCPCS: 71045; 80053; 85025; 94660; 96374; 96375; 99285-25; C9803; J1940; J2060; U0003

== ENCOUNTER 2021-01-29 03:56 | Emergency (ER) | payer MEDICARE, OTHER ==
[~2021-01-29] VITALS: Ht 167.6 cm; Wt 47.8 kg
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
[2021-01-29] MEDS ORDERED: HYDROXYZINE HCL25 MG PO (04:16)
--- NOTE | 2021-01-29 22:33 | EKG ---
[facility] [address] [facility] [place], [place] [address] Signed Sinus tachycardia Possible Left atrial enlargement Left ventricular hypertrophy Prolonged QT Abnormal ECG When compared with ECG of 28-NOV-2019 03:46, No significant change was found Confirmed by KELLY MAYES DO ([id number]) on 01/29/2021 10:33:11 PM Electronically Signed By: KELLY MAYES DO 01/29/212232 PATIENT NAME: DANGELO POWER Electrocardiogram DATE OF : 78 PHYSICIAN: KELLY MAYES DO REPORT #: [id number] REPORT IS CONFIDENTIAL AND NOT TO BE RELEASED WITHOUT AUTHORIZATION
== END 2021-01-29 06:37 | disposition short-term general hospital (02) ==
LOC: ED 03:56
PROC: 0BH17EZ Insertion of Endotracheal Airway into Trachea, Via Natural or Artificial Opening (ICD-10-PCS; principal; 2021-01-29)
PROC: 0T9B80Z Drainage of Bladder with Drainage Device, Via Natural or Artificial Opening Endoscopic (ICD-10-PCS; 2021-01-29)
DX: I13.2 Hypertensive heart and chronic kidney disease with heart failure and with stage 5 chronic kidney disease, or end stage renal disease (principal); N18.6 End stage renal disease; I50.9 Heart failure, unspecified; J96.00 Acute respiratory failure, unspecified whether with hypoxia or hypercapnia; Z20.822 Contact with and (suspected) exposure to COVID-19; Z99.2 Dependence on renal dialysis; Z91.15 Patient's noncompliance with renal dialysis; F17.200 Nicotine dependence, unspecified, uncomplicated; Z88.6 Allergy status to analgesic agent; Z88.5 Allergy status to narcotic agent; Z88.8 Allergy status to other drugs, medicaments and biological substances; Z79.84 Long term (current) use of oral hypoglycemic drugs; Z79.899 Other long term (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
CPT/HCPCS: 31500; 36556; 51702; 71045; 80053; 81001; 83735; 85025; 93005; 93010; 94002; 94660; 94799; 99291; C9803; J0330; J1940; J2704; J3010; U0003

== ENCOUNTER 2024-01-11 20:14 | Emergency (ER) | payer MEDICARE, OTHER ==
[~2024-01-11] VITALS: Ht 167.6 cm; Wt 48.0 kg
[~2024-01-11 20:14] MED LIST changes: +HYDROXYZINE HCL25 MG PO
[2024-01-11] MEDS ORDERED: methylPREDNISolone SOD SUCC 125 MG/2 ML VIAL IV ONE (20:30)
[2024-01-11] MEDS ORDERED: ALBUTEROL/IPRATROPIUM 3 ML NEB INH ONE (20:30)
[2024-01-11 20:36] LABS: HCO3, BLOOD GAS 17.3 mmol/L (22-26); O2 SATURATION, BLOOD GAS 95.3 % (95.0-100.0); OXYGEN RECEIVED, BLOOD GAS 100%; PCO2, BLOOD GAS 43.4 mmHg (35-45); PH, BLOOD GAS 7.21 (7.35-7.45); PO2, BLOOD GAS 88 mmHg (80-100); TOTAL CO2, BLOOD GAS 18.7
[2024-01-11] MEDS ORDERED: MIDAZOLAM HCL 5 MG/ML VIAL ONE (20:41)
[2024-01-11] MEDS ORDERED: MIDAZOLAM HCL 2 MG/2 ML VIAL IM ONE ×2 (20:45)
[2024-01-11] MEDS ORDERED: ETOMIDATE 40 MG/20 ML VIAL IV ONE (21:00)
[2024-01-11 21:06] LABS: BASOPHILS 0.7 % (0-2); EOSINOPHILS 2.7 % (0-6); HEMATOCRIT 31.2 % (35.0-50.0); HEMOGLOBIN 10.1 g/dL (12.0-18.0); LYMPHOCYTES 13.4 % (24-44); MCH 30.6 (27-36); MCHC 32.4 g/dl (30-36); MCV 94.5 fl (81-99); MONOCYTES 3.9 % (0-12); NEUTROPHILS 79.3 % (39-80); PLATELET COUNT 421 K/uL (140-440); RDW 20.7 (10.5-15.0)
[2024-01-11 21:32] LABS: ALBUMIN 3.7 g/dL (3.4-5.0); ALBUMIN/GLOBULIN RATIO 0.84 (1.1-2.4); BILIRUBIN, TOTAL 0.6 ng/dL (0.2-1.0); BUN/CREATININE RATIO 8.98 (6.0-28.6); CALCIUM 9.1 mg/dL (8.5-10.1); CREATININE, SERUM 8.79 mg/dL (0.55-1.02); MAGNESIUM 2.9 mg/dL (1.8-2.4); PHOSPHORUS, INORGANIC 7.8 mg/dL (2.5-4.9); PROTEIN, TOTAL 8.1 g/dL (6.4-8.2)
[2024-01-11 21:33] LABS: ANION GAP 17.9 (7-21)
[2024-01-11] MEDS ORDERED: ONDANSETRON ODT4 MG PO (21:34)
[2024-01-11] MEDS ORDERED: TORSEMIDE100 MG PO (21:34)
[2024-01-11] MEDS ORDERED: CLONIDINE1 EACH TD (21:34)
[2024-01-11] MEDS ORDERED: ALPRAZOLAM0.25 MG PO (21:34)
[2024-01-11 21:35] LABS: POTASSIUM 7.9 mmol/L (3.5-5.1)
[2024-01-11] MEDS ORDERED: ENALAPRILAT DIHYDRATE 1.25 MG/ML VIAL IV ONE (21:45)
[2024-01-11] MEDS ORDERED: Insulin Regular, Human 100 UNIT/ML ML IV ONE ×2 (22:00→23:30)
[2024-01-11] MEDS ORDERED: CALCIUM GLUCONATE 1,000 MG/10 ML VIAL IV ONE ×2 (22:00→23:30)
[2024-01-11] MEDS ORDERED: DEXTROSE 50% 50 ML SYR IV ONE ×4 (22:00→23:45)
[2024-01-11] MEDS ORDERED: NITROGLYCERIN 50MG/D5W 250 ML IV SCH (22:00)
[2024-01-11 22:25] LABS: BASE EXCESS, BLOOD GAS -7.7 mmol/L (-2-2); HCO3, BLOOD GAS 19.2 mmol/L (22-26); O2 SATURATION, BLOOD GAS 92.4 % (95.0-100.0); PCO2, BLOOD GAS 43.5 mmHg (35-45); PH, BLOOD GAS 7.25 (7.35-7.45); PO2, BLOOD GAS 72 mmHg (80-100); TOTAL CO2, BLOOD GAS 20.5
[2024-01-11 22:26] LABS: OXYGEN RECEIVED, BLOOD GAS 80%
[2024-01-11] MEDS ORDERED: FUROSEMIDE 40 MG/4 ML VIAL IV ONE (22:45)
[2024-01-11 23:11] LABS: AMPHETAMINES, URINE POSITIVE (NEGATIVE); BARBITURATES, URINE NEGATIVE (NEGATIVE); BENZODIAZEPINE, URINE POSITIVE (NEGATIVE); BUPRENORPHINE, URINE NEGATIVE (NEGATIVE); CANNABINOID, URINE POSITIVE (NEGATIVE); COCAINE, URINE NEGATIVE (NEGATIVE); ECSTASY, URINE NEGATIVE (NEGATIVE); FENTANYL, URINE NEGATIVE (NEGATIVE); METHADONE, URINE NEGATIVE (NEGATIVE); OPIATES, URINE NEGATIVE (NEGATIVE); OXYCODONE, URINE NEGATIVE (NEGATIVE); PHENCYCLIDINE, URINE NEGATIVE (NEGATIVE)
[2024-01-11] MEDS ORDERED: SODIUM POLYSTYRENE SULFONATE 15 GM/60 ML UDC PR ONE (23:15)
[2024-01-11 23:28] LABS: INFLUENZA B NAA NEGATIVE (NEGATIVE); RESPIRATORY SYNCYTIAL VIR NAA NEGATIVE (NEGATIVE)
[2024-01-11] MEDS ORDERED: GLUCAGON,HUMAN RECOMBINANT 1 MG/ML VIAL IV ONE (23:45)
[2024-01-11] MEDS ORDERED: CALCIUM GLUCONATE 1,000 MG/10 ML VIAL ONE (23:57)
[2024-01-12] MEDS ORDERED: MIDAZOLAM HCL 2 MG/2 ML VIAL IV ONE (00:45)
[2024-01-12] MEDS ORDERED: ondansetron HCL 4 MG/2 ML VIAL IV ONE (00:45)
[2024-01-12] MEDS ORDERED: CALCIUM GLUCONATE 1,000 MG/10 ML VIAL ONE (00:48)
[2024-01-12] MEDS ORDERED: DEXTROSE 50% 50 ML SYR ONE (01:17)
[2024-01-12] MEDS ORDERED: ROCURONIUM BROMIDE 50 MG/5 ML VIAL IV ONE (01:30)
[2024-01-12] MEDS ORDERED: ETOMIDATE 40 MG/20 ML VIAL IV ONE (01:30)
[2024-01-12] MEDS ORDERED: propofoL 100 ML IV SCH (01:30)
[2024-01-12] MEDS ORDERED: GLUCAGON,HUMAN RECOMBINANT 1 MG/ML VIAL ONE (02:00)
[2024-01-12 02:14] VITALS: BP 233/100
--- NOTE | 2024-01-13 12:54 | EKG ---
[facility] [address] [facility] [place] [address] Signed Normal sinus rhythm Possible Left atrial enlargement Left ventricular hypertrophy with repolarization abnormality ( [place] product ) Abnormal ECG When compared with ECG of 02-SEP-2023 13:38, ST now depressed in Lateral leads T wave inversion now evident in Lateral leads Confirmed by Chemo Padilla MD ([id number]) on 01/13/2024 12:54:06 PM Electronically Signed By: CHEMO PADILLA 01/13/24 1254 PATIENT NAME: DANGELO POWER Electrocardiogram DATE OF : 78 PHYSICIAN: CHEMO PADILLA REPORT #: [id number] REPORT IS CONFIDENTIAL AND NOT TO BE RELEASED WITHOUT AUTHORIZATION
== END 2024-01-12 02:15 | disposition short-term general hospital (02) ==
LOC: ED 20:14
PROVIDERS: Family Medicine
DX: N17.9 Acute kidney failure, unspecified (principal); I13.0 Hypertensive heart and chronic kidney disease with heart failure and stage 1 through stage 4 chronic kidney disease, or unspecified chronic kidney disease; N18.9 Chronic kidney disease, unspecified; I50.9 Heart failure, unspecified; E87.5 Hyperkalemia; F17.200 Nicotine dependence, unspecified, uncomplicated; Z88.5 Allergy status to narcotic agent; Z88.8 Allergy status to other drugs, medicaments and biological substances; Z79.899 Other long term (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; Z11.52 Encounter for screening for COVID-19
CPT/HCPCS: 36415; 36556; 36600; 51702; 71045; 80053; 80307; 82803; 83605; 83735; 83880; 84100; 84132; 84484; 85025; 87502; 93005; 93010; 94640; 99285-25; J0612; J1610; J1815; J1940; J2250; J2405; J2704; J2919; U0002

== ENCOUNTER 2024-07-21 15:12 | Emergency (ER) | payer MEDICARE, OTHER ==
[~2024-07-21] VITALS: Ht 167.6 cm; Wt 45.4 kg
[2024-07-21] MEDS ORDERED: ALBUTEROL/IPRATROPIUM 3 ML NEB INH PRN (15:45)
[2024-07-21 16:00] LABS: HEMATOCRIT 43.5 % (35.0-50.0); HEMOGLOBIN 14.7 g/dL (12.0-18.0); MCH 31.8 (27-36); MCHC 33.7 g/dl (30-36); MCV 94.6 fl (81-99); PLATELET COUNT 265 K/uL (140-440); RBC 4.61 M/ul (4.3-5.7); RDW 22.5 (10.5-15.0)
[2024-07-21] MEDS ORDERED: DEXAMETHASONE SOD PHOS 10 MG/ML VIAL IV ONE (16:00)
[2024-07-21] MEDS ORDERED: ALBUTEROL SULFATE 0.083% 3 ML VIAL INH ONE (16:00)
[2024-07-21 16:16] LABS: BANDS, MANUAL DIFF 1; EOSINOPHILS, MANUAL DIFF 1; LYMPHOCYTES, MANUAL DIFF 16; MONOCYTES, MANUAL DIFF 10; NEUTROPHILS, MANUAL DIFF 72
[2024-07-21 16:18] LABS: ALBUMIN 3.5 g/dL (3.4-5.0); ALBUMIN/GLOBULIN RATIO 0.69 (1.1-2.4); ANION GAP 13.8 (7-21); BILIRUBIN, TOTAL 0.5 mg/dL (0.2-1.0); BUN/CREATININE RATIO 4.1 (6.0-28.6); CALCIUM 9.7 mg/dL (8.5-10.1); CREATININE, SERUM 4.87 mg/dL (0.55-1.02); MAGNESIUM 2.4 mg/dL (1.8-2.4); POTASSIUM 3.8 mmol/L (3.5-5.1); PROTEIN, TOTAL 8.6 g/dL (6.4-8.2)
[2024-07-21 16:24] LABS: CORONAVIRUS COVID-19 AG NEGATIVE (NEGATIVE); INFLUENZA A AG NEGATIVE (NEGATIVE); INFLUENZA B AG NEGATIVE (NEGATIVE)
[2024-07-21] MEDS ORDERED: LORazepam 1 MG TAB PO ONE (17:00)
[2024-07-21 18:04] VITALS: BP 133/87
== END 2024-07-21 18:09 | disposition home or self-care (01) ==
LOC: ED 15:12
PROVIDERS: Emergency Medicine
DX: J40 Bronchitis, not specified as acute or chronic (principal); J43.9 Emphysema, unspecified; I12.0 Hypertensive chronic kidney disease with stage 5 chronic kidney disease or end stage renal disease; N18.6 End stage renal disease; F17.210 Nicotine dependence, cigarettes, uncomplicated; Z99.2 Dependence on renal dialysis; Z91.158 Patient's noncompliance with renal dialysis for other reason; Z88.5 Allergy status to narcotic agent; Z88.8 Allergy status to other drugs, medicaments and biological substances
CPT/HCPCS: 36415; 71045; 80053; 83735; 84484; 85025; 93005; 93010; 94640; 94667; 96374; 99285-25; 99406; A9270-GY; J1100